=== PATIENT | male | born 1935 | race Caucasian/White ===

== ENCOUNTER 2019-05-18 00:31 | Inpatient (IN) | payer MEDICARE, MEDICAID ==
[~2019-05-18] VITALS: Ht 170.2 cm; Wt 78.9 kg
[2019-05-18] VITALS (7 sets, daily range): BP systolic 119–146; BP diastolic 60–76
[2019-05-18 00:58] LABS: APPEARANCE,URINE SLIGHTLY CLOUDY; BASOPHILS % (AUTO) 0.9 % (0.0-2.0); BILIRUBIN, URINE NEGATIVE (NEGATIVE); COLOR,URINE PALE YELLOW; EOSINOPHILS % (AUTO) 7.4 % (0.0-3.0); GLUCOSE, URINE (UA) NEGATIVE (NEGATIVE); HEMATOCRIT 32.1 % (42.0-52.0); HEMOGLOBIN 10.9 G/DL (14.2-18.0); KETONES,URINE NEGATIVE (NEGATIVE); LEUKOCYTE ESTERASE ,URINE 1+ (NEGATIVE); LYMPHOCYTES % (AUTO) 10.4 % (20.0-45.0); MEAN CORPUSCULAR VOLUME 87 FL (80-99); MONOCYTES % (AUTO) 3.6 % (1.0-10.0); NEUTROPHILS % (AUTO) 77.7 % (45.0-75.0); NITRITE,URINE NEGATIVE (NEGATIVE); PH,URINE 5 (4.5-8.0); PLATELET COUNT 253 K/UL (150-450); PROTEIN,URINE 3+ (NEGATIVE); RED CELL DISTRIBUTION WIDTH 13.8 % (11.6-14.8); UROBILINOGEN,URINE NORMAL MG/DL (0.0-1.0); WHITE BLOOD COUNT 8.8 K/UL (4.8-10.8)
[2019-05-18] MEDS: Albuterol/Ipratropium 3ml neb HHN SCH ×3 (00:59→01:17)
[2019-05-18] MEDS ORDERED: LOVENOX10 M4 SUBQ (01:05)
[2019-05-18] MEDS ORDERED: PROSCAR5 MG ORAL (01:05)
[2019-05-18] MEDS ORDERED: NORCO 5-325 TA1 EACH ORAL (01:05)
[2019-05-18] MEDS ORDERED: TYLENOL EXTRA500 MG ORAL (01:05)
[2019-05-18] MEDS ORDERED: FLEET ENEMA133 ML RECTAL (01:05)
[2019-05-18] MEDS ORDERED: MILK OF MA400 MG/51 ORAL (01:05)
[2019-05-18] MEDS ORDERED: LISINOPRIL2.5 MG ORAL (01:05)
[2019-05-18] MEDS ORDERED: COLACE100 MG ORAL (01:05)
[2019-05-18] MEDS ORDERED: CRANBERRY450 M4 PO (01:05)
[2019-05-18] MEDS ORDERED: TYLENOL325 M1 PO (01:05)
[2019-05-18] MEDS ORDERED: FLOMAX0.4 MG ORAL (01:05)
[2019-05-18] MEDS ORDERED: DULCOLAX10 MG RC (01:05)
[2019-05-18 01:24] LABS: ALANINE AMINOTRANSFERASE 33 U/L (12-78); ALBUMIN 1.8 G/DL (3.4-5.0); ALBUMIN/GLOBULIN RATIO 0.5 (1.0-2.7); ALKALINE PHOSPHATASE 91 U/L (46-116); ANION GAP 8 mmol/L (5-15); ASPARTATE AMINO TRANSFERASE 32 U/L (15-37); BILIRUBIN,TOTAL 0.5 MG/DL (0.2-1.0); CALCIUM 7.7 MG/DL (8.5-10.1); CARBON DIOXIDE 27 MMOL/L (21-32); CHLORIDE 107 MMOL/L (98-107); CKMB 1.7 NG/ML (0.0-3.6); CREATINE KINASE 24 U/L (26-308); CREATININE 1.9 MG/DL (0.55-1.30); POTASSIUM 3.3 MMOL/L (3.5-5.1); SODIUM 142 MMOL/L (136-145)
[2019-05-18 01:35] LABS: BLOOD UREA NITROGEN 29 mg/dL (7-18)
[2019-05-18] MEDS ORDERED: Azithromycin 500 MG in NS 275 ML IV ONE (02:00)
[2019-05-18] MEDS ORDERED: Piperacillin/Tazobactam 3.375 GM in NS 110 ML IVPB ONE (02:00)
[2019-05-18] MEDS ORDERED: Morphine Sulfate 2mg/ml Inj(IV/IM USE ONLY) IVP PRN (02:00)
--- NOTE | 2019-05-18 03:07 | Diagnostic Imaging Report ---
EXAM: XR Chest, 1 View CLINICAL HISTORY: SOB TECHNIQUE: Frontal view of the chest. COMPARISON: No relevant prior studies available. FINDINGS: No significant cardiac enlargement. Ill-defined densities in the right upper lobe are indeterminate but may reflect sequela of prior inflammatory process. Ill-defined nodular densities in both lungs. Left lower lobe densities atelectasis or pneumonia. Left pleural effusion. Negative for pneumothorax. Nonemergent CT chest recommended if no prior studies are available to document stability of findings. Right PICC line catheter terminates in the SVC.
--- NOTE | 2019-05-18 03:10 | Emergency Room Report ---
History of Present Illness General Chief Complaint: General Complaint Source: Patient, Medical Record, EMS Present Illness HPI 84-year-old male presents ED for evaluation. Brought in by EMS from shelter facility. Noted to have redness and swelling around his PICC line site on right upper extremity. Noticed by nursing staff today. States he was receiving antibiotics at another hospital for a UTI. Denies fevers or chills. Denies pain to the arm. States he has been short of breath. Has been wheezing. States he has been short of breath for the last 2 weeks. Denies chest pain. No other aggravating relieving factors. Denies any other associated symptoms Allergies: Coded Allergies: No Known Allergies (Unverified , 05/18/19) Patient History Past Medical History: HTN Past Surgical History: none Pertinent Family History: none Social History: Denies: smoking, alcohol use, drug use Immunizations: UTD Reviewed Nursing Documentation: PMH: Agreed; PSxH: Agreed Nursing Documentation-PMH Past Medical History: No History, Except For Hx Hypertension: Yes Review of Systems All Other Systems: negative except mentioned in HPI Physical Exam Vital Signs Date Time Temp Pulse Resp B/P (MAP) Pulse Ox O2 Delivery O2 Flow Rate FiO2 05/18/19 00:34 98.1 92 20 139/76 (97) 93 Nasal Cannula 2.0 05/18/19 00:59 28 Sp02 EP Interpretation: reviewed, normal General Appearance: no apparent distress, alert, GCS 15, non-toxic Head: normocephalic, atraumatic Eyes: bilateral eye normal inspection, bilateral eye PERRL ENT: hearing grossly normal, normal pharynx, no angioedema, normal voice Neck: full range of motion, supple/symm/no masses Respiratory: chest non-tender, speaking full sentences, wheezing Cardiovascular #1: regular rate, rhythm, no edema Cardiovascular #2: 2+ carotid (R), 2+ carotid (L), 2+ radial (R), 2+ radial (L) , 2+ dorsalis pedis (R), 2+ dorsalis pedis (L) Gastrointestinal: normal bowel sounds, non tender, soft, non-distended, no guarding, no rebound Rectal: deferred Genitourinary: normal inspection, no CVA tenderness Musculoskeletal: back normal, normal range of motion, gait/station normal, swelling - RUE swelling/erythema surrounding PICC site Neurologic: alert, motor strength/tone normal, oriented x3, sensory intact, responsive, speech normal Psychiatric: judgement/insight normal, memory normal, mood/affect normal, no suicidal/homicidal ideation Reflexes: 3+ bicep (R), 3+ bicep (L), 3+ tricep (R), 3+ tricep (L), 3+ knee (R) , 3+ knee (L) Skin: other - see nursing skin notes Lymphatic: no adenopathy Medical Decision Making Diagnostic Impression: Primary Impression: Cellulitis of upper extremity Qualified Codes: L03.113 - Cellulitis of right upper limb Additional Impressions: Renal insufficiency Pneumonia Qualified Codes: J18.9 - Pneumonia, unspecified organism ER Course Hospital Course 84-year-old male presents to ED with redness, swelling to RUE around PICC site. wheezing/SOB. Differential diagnoses include: Cellulitis, DVT, abscess, rash. Clinical course Patient placed on stretcher. After initial history and physical I ordered labs , blood Cx, UA, IVFs, doppler US of RUE, nebulize treatments labs reviewed - noted leukocytosis, hb/Hct stable, BUN/Cr elevated CXR - bilateral infiltraets EKg - NSR no acute ischemic changes interpreted by me vascular unable to obstain adequate study of RUE. recommend repeat imaging in the morning broad spectrum antibiotics given. IVFs given. Case discussed with Dr Wiggins and he agreed to accept the patient to his service for further care and support Diagnosis - cellulitis of upper extremity, renal insufficiency, pneumonia Patient admitted to telemetry in serious condition Labs Test 05/18/19 00:38 White Blood Count 8.8 K/UL (4.8-10.8) Red Blood Count 3.70 M/UL (4.70-6.10) Hemoglobin 10.9 G/DL (14.2-18.0) Hematocrit 32.1 % (42.0-52.0) Mean Corpuscular Volume 87 FL (80-99) Mean Corpuscular Hemoglobin 29.5 PG (27.0-31.0) Mean Corpuscular Hemoglobin Concent 34.0 G/DL (32.0-36.0) Red Cell Distribution Width 13.8 % (11.6-14.8) Platelet Count 253 K/UL (150-450) Mean Platelet Volume 4.5 FL (6.5-10.1) Neutrophils (%) (Auto) 77.7 % (45.0-75.0) Lymphocytes (%) (Auto) 10.4 % (20.0-45.0) Monocytes (%) (Auto) 3.6 % (1.0-10.0) Eosinophils (%) (Auto) 7.4 % (0.0-3.0) Basophils (%) (Auto) 0.9 % (0.0-2.0) Urine Color Pale yellow Urine Appearance Slightly cloudy Urine pH 5 (4.5-8.0) Urine Specific [place] 1.015 (1.005-1.035) Urine Protein 3+ (NEGATIVE) Urine Glucose (UA) Negative (NEGATIVE) Urine Ketones Negative (NEGATIVE) Urine Blood 5+ (NEGATIVE) Urine Nitrite Negative (NEGATIVE) Urine Bilirubin Negative (NEGATIVE) Urine Urobilinogen Normal MG/DL (0.0-1.0) Urine Leukocyte Esterase 1+ (NEGATIVE) Urine RBC 30-40 /HPF (0 - 0) Urine WBC 5-10 /HPF (0 - 0) Urine Squamous Epithelial Cells Occasional /LPF Urine Calcium Oxalate Crystals Moderate /LPF (NONE) Urine Amorphous Sediment Moderate /LPF (NONE) Urine Bacteria Few /HPF (NONE) Urine Mucus Few /LPF (NONE/OCC) Sodium Level 142 MMOL/L (136-145) Potassium Level 3.3 MMOL/L (3.5-5.1) Chloride Level 107 MMOL/L (98-107) Carbon Dioxide Level 27 MMOL/L (21-32) Anion Gap 8 mmol/L (5-15) Blood Urea Nitrogen 29 mg/dL (7-18) Creatinine 1.9 MG/DL (0.55-1.30) Estimat Glomerular Filtration Rate mL/min (>60) Glucose Level 110 MG/DL (74-106) Lactic Acid Level 0.70 mmol/L (0.4-2.0) Calcium Level 7.7 MG/DL (8.5-10.1) Total Bilirubin 0.5 MG/DL (0.2-1.0) Aspartate Amino Transf (AST/SGOT) 32 U/L (15-37) Alanine Aminotransferase (ALT/SGPT) 33 U/L (12-78) Alkaline Phosphatase 91 U/L (46-116) Total Creatine Kinase 24 U/L (26-308) Creatine Kinase MB 1.7 NG/ML (0.0-3.6) Creatine Kinase MB Relative Index 7.0 Troponin I 0.039 ng/mL (0.000-0.056) Pro-B-Type Natriuretic Peptide 2453 pg/mL (0-125) Total Protein 5.4 G/DL (6.4-8.2) Albumin 1.8 G/DL (3.4-5.0) Globulin 3.6 g/dL Albumin/Globulin Ratio 0.5 (1.0-2.7) EKG Diagnostic Results Rate: normal Rhythm: NSR ST Segments: no acute changes ASA given to the pt in ED: No Rhythm Strip Diag. Results EP Interpretation: yes Rhythm: NSR, no PVC's, no ectopy Chest X-Ray Diagnostic Results Chest X-Ray Diagnostic Results : Chest X-Ray Ordered: Yes # of Views/Limited/Complete: 1 View Indication: Shortness of Breath EP Interpretation: Yes Interpretation: no pneumothorax, other - bialteral infiltrates Impression: Other - pneumonia Electronically Signed by: Electronically signed by Kevyn Kaufman MD Last Vital Signs Date Time Temp Pulse Resp B/P (MAP) Pulse Ox O2 Delivery O2 Flow Rate FiO2 05/18/19 02:11 98.1 89 16 137/63 99 Nasal Cannula 2.0 28 Status: improved Disposition: ADMITTED INPATIENT Condition: Serious Referrals: Joslyn Wiggins MD (PCP) Kevyn Kaufman MD May 18, 2019 03:10
--- NOTE | 2019-05-18 09:31 | Consultation ---
History of Present Illness General Date patient seen: May 18, 2019 Chief Complaint: General Complaint Reason for Consultation: PICC line infection Present Illness HPI Mr. Charles is an 84 yo male with PMHx of HTN who was sent to the ED on 05/18/19 fropm his snf for possible picc line infection. The patient reports no fever or dysuria at this time but reports that he had a PICC line placed for UTI. He also notes that had a fracture of his left foot after he twisted it. He was seen at [facility] and is now on Vancomycin for OM. The skin around his PICC line became red and swollen so he was brought to the ED. I called the snf and they report that the Vancomycin is due to end in early May. ID was consulted for PICC line infection PMHx/PSHx HTN SocHx No E/T/D FamHx Not Contributory Allergies: Coded Allergies: No Known Allergies (Unverified , 05/18/19) Medication History Scheduled Cranberry Fruit Concentrate (Cranberry), 450 MG PO BID, (Reported) Docusate Sodium* (Colace*), 100 MG ORAL DAILY, (Reported) Enoxaparin* (Lovenox*), 40 MG SUBQ DAILY, (Reported) Finasteride* (Proscar*), 5 MG ORAL DAILY, (Reported) Lisinopril* (Lisinopril*), 2.5 MG ORAL DAILY, (Reported) Tamsulosin HCl (Flomax), 0.4 MG ORAL BEDTIME, (Reported) Scheduled PRN Acetaminophen (Tylenol), 650 MG PO Q4HR PRN for Mild Pain/Temp > 100.5, ( Reported) Acetaminophen* (Tylenol Extra Strength*), 1,000 MG ORAL Q4H PRN for Moderate Pain (Pain Scale 4-6), (Reported) Bisacodyl (Dulcolax), 10 MG RC DAILY PRN for Constipation, (Reported) Hydrocodone Bit/Acetaminophen 5-325* ([place] 5-325*), 1 TAB ORAL Q6HR PRN for Severe Pain (Pain Scale 7-10), (Reported) Magnesium Hydroxide* (Milk Of Magnesia*), 30 ML ORAL QHS PRN for Constipation, ( Reported) Na Phos,M-B/Na Phos,Di-Ba* (Fleet Enema*), 133 ML RECTAL DAILY PRN for Constipation, (Reported) Patient History Healthcare decision maker Resuscitation status Full Code Advanced Directive on File No Review of Systems ROS Narrative 12 point ROS negative except as noted in the HPI Physical Exam Last 24 Hour Vital Signs Date Time Temp Pulse Resp B/P (MAP) Pulse Ox O2 Delivery O2 Flow Rate FiO2 05/18/19 03:57 84 05/18/19 03:38 111 05/18/19 03:25 97.3 115 19 136/68 (90) 94 05/18/19 03:03 Nasal Cannula 2.0 Nasal Cannula 2.0 Nasal Cannula 2.0 Nasal Cannula 2.0 05/18/19 02:30 98.1 89 16 137/63 99 Nasal Cannula 2.0 28 05/18/19 02:11 98.1 89 16 137/63 99 Nasal Cannula 2.0 28 05/18/19 01:19 102 22 100 97 22 100 05/18/19 01:13 97 22 100 97 21 100 05/18/19 00:59 99 19 100 Nasal Cannula 2.0 28 97 21 97 05/18/19 00:45 98.1 92 20 139/76 93 Nasal Cannula 2.0 05/18/19 00:45 92 20 Nasal Cannula 2.0 05/18/19 00:34 98.1 92 20 139/76 (97) 93 Nasal Cannula 2.0 Laboratory Tests Test 05/18/19 00:38 White Blood Count 8.8 K/UL (4.8-10.8) Red Blood Count 3.70 M/UL (4.70-6.10) L Hemoglobin 10.9 G/DL (14.2-18.0) L Hematocrit 32.1 % (42.0-52.0) L Mean Corpuscular Volume 87 FL (80-99) Mean Corpuscular Hemoglobin 29.5 PG (27.0-31.0) Mean Corpuscular Hemoglobin Concent 34.0 G/DL (32.0-36.0) Red Cell Distribution Width 13.8 % (11.6-14.8) Platelet Count 253 K/UL (150-450) Mean Platelet Volume 4.5 FL (6.5-10.1) L Neutrophils (%) (Auto) 77.7 % (45.0-75.0) H Lymphocytes (%) (Auto) 10.4 % (20.0-45.0) L Monocytes (%) (Auto) 3.6 % (1.0-10.0) Eosinophils (%) (Auto) 7.4 % (0.0-3.0) H Basophils (%) (Auto) 0.9 % (0.0-2.0) Urine Color Pale yellow Urine Appearance Slightly cloudy Urine pH 5 (4.5-8.0) Urine Specific [place] 1.015 (1.005-1.035) Urine Protein 3+ (NEGATIVE) H Urine Glucose (UA) Negative (NEGATIVE) Urine Ketones Negative (NEGATIVE) Urine Blood 5+ (NEGATIVE) H Urine Nitrite Negative (NEGATIVE) Urine Bilirubin Negative (NEGATIVE) Urine Urobilinogen Normal MG/DL (0.0-1.0) Urine Leukocyte Esterase 1+ (NEGATIVE) H Urine RBC 30-40 /HPF (0 - 0) H Urine WBC 5-10 /HPF (0 - 0) H Urine Squamous Epithelial Cells Occasional /LPF Urine Calcium Oxalate Crystals Moderate /LPF (NONE) Urine Amorphous Sediment Moderate /LPF (NONE) H Urine Bacteria Few /HPF (NONE) Urine Mucus Few /LPF (NONE/OCC) H Sodium Level 142 MMOL/L (136-145) Potassium Level 3.3 MMOL/L (3.5-5.1) L Chloride Level 107 MMOL/L (98-107) Carbon Dioxide Level 27 MMOL/L (21-32) Anion Gap 8 mmol/L (5-15) Blood Urea Nitrogen 29 mg/dL (7-18) H Creatinine 1.9 MG/DL (0.55-1.30) H Estimat Glomerular Filtration Rate mL/min (>60) Glucose Level 110 MG/DL (74-106) H Lactic Acid Level 0.70 mmol/L (0.4-2.0) Calcium Level 7.7 MG/DL (8.5-10.1) L Total Bilirubin 0.5 MG/DL (0.2-1.0) Aspartate Amino Transf (AST/SGOT) 32 U/L (15-37) Alanine Aminotransferase (ALT/SGPT) 33 U/L (12-78) Alkaline Phosphatase 91 U/L (46-116) Total Creatine Kinase 24 U/L (26-308) L Creatine Kinase MB 1.7 NG/ML (0.0-3.6) Creatine Kinase MB Relative Index 7.0 Troponin I 0.039 ng/mL (0.000-0.056) Pro-B-Type Natriuretic Peptide 2453 pg/mL (0-125) H Total Protein 5.4 G/DL (6.4-8.2) L Albumin 1.8 G/DL (3.4-5.0) L Globulin 3.6 g/dL Albumin/Globulin Ratio 0.5 (1.0-2.7) L Microbiology Date/Time Source Procedure Growth Status 05/18/19 00:38 Rectum Received Height (Feet): 5 Height (Inches): 7.00 Weight (Pounds): 150 Medications Current Medications Medications (Trade) Dose Ordered Sig/Phillip Route PRN Reason Start Time Stop Time Status Last Admin Dose Admin Acetaminophen (Tylenol) 650 mg Q6HR PRN ORAL TEMP>100.5 05/18/19 02:00 Morphine Sulfate (Morphine Sulfate) 2 mg Q4HR PRN IVP Moderate Pain (Pain Scale 4-6) 05/18/19 02:00 Ondansetron HCl (Zofran) 4 mg Q4HR PRN IVP Nausea & Vomiting 05/18/19 02:00 Objective Narrative Gen: NAD HEENT: NCAT, MMM, EOMI, PERRL, No Oral lesion, no scleral icterus NECK: full range of motion, supple, no meningismus, No LAD, No JVD LUNGS: CTAB, No W/C, No Accessory muscle use CARDS: RRR, S1, S2, No M/R/G, ABD: Soft, NT, ND, No R/G, + BS, No HSM, No Masses : Deferred Ext: No, C/C/E, Pulses 2+ B/L (DP, Rad): Right arm PICC with some swelling. Bio patch inplace no erythema or purulent drainage at this time. Left foot in cast/ bandage NEURO: A/O x 2, Strength and Sensation Grossly intact PSYCH: Normal mood and affect SKIN: Warm/dry, No rashes Assessment/Plan Assessment/Plan: 84 yo male withPMHx of HTN who pwas sent to the ED on 05/18/19 fropm his snf for posible picc line infection. Sweeling around PICC line Minimal to no erythema and no purulent drainage Not likely to be infected Blood Cx 05/18/19 - Pend No Leukocytosis No fever OM - Let foot Pn Vancomycin at nursing End date early May SOB on 2L NC CXR - Some LLL Atelectasis vs PNA, Nodules HTN PLAN - Continue Vancomcyin per pharmacy - US of left arm to look for clot - f/u surgery recs - f/u Cultures - Monitor CBC and Temps Thank you for this consult. [facility] will continue to follow the patient with you during this hospitalization. Jimbo Dodd MD May 18, 2019 09:31
[2019-05-18] MEDS ORDERED: Lisinopril 2.5mg tab ORAL SCH (10:15)
[2019-05-18] MEDS ORDERED: Acetaminophen 500mg (ES) tab ORAL PRN (10:15)
[2019-05-18] MEDS ORDERED: HYDROcodone/Acetamin 5/325 tab ORAL PRN (10:15)
[2019-05-18] MEDS ORDERED: Enoxaparin 30mg Inj SUBQ SCH (10:30)
[2019-05-18] MEDS ORDERED: Vancomycin 1.25gm/NS Premix IVPB ONE (11:00)
--- NOTE | 2019-05-18 11:57 | Consultation ---
History of Present Illness General Date patient seen: May 18, 2019 Reason for Hospitalization: General Complaint Present Illness HPI 84-year-old male present to ED at [facility] from nursing facility for evaluation of right arm. Noted to have redness and swelling around his PICC line site on right upper extremity. Noticed by nursing staff at facility day of admission. States he was receiving antibiotics at another hospital for a UTI. Denies fevers or chills. Denies pain to the arm. States he has been short of breath and has been wheezing. States he has been short of breath for the last 2 weeks. Denies chest pain. No other aggravating relieving factors. Denies any other associated symptoms. notable edema / possible cellulitis. admitted for care and management. surgery called to evaluate and assist with care. patient seen, chart reviewed, patient examined. states fell with walker not too long ago and fx his left foot as well. now in splint. Allergies: Coded Allergies: No Known Allergies (Unverified , 05/18/19) Medication History Scheduled Cranberry Fruit Concentrate (Cranberry), 450 MG PO BID, (Reported) Docusate Sodium* (Colace*), 100 MG ORAL DAILY, (Reported) Enoxaparin* (Lovenox*), 40 MG SUBQ DAILY, (Reported) Finasteride* (Proscar*), 5 MG ORAL DAILY, (Reported) Lisinopril* (Lisinopril*), 2.5 MG ORAL DAILY, (Reported) Tamsulosin HCl (Flomax), 0.4 MG ORAL BEDTIME, (Reported) Scheduled PRN Acetaminophen (Tylenol), 650 MG PO Q4HR PRN for Mild Pain/Temp > 100.5, ( Reported) Acetaminophen* (Tylenol Extra Strength*), 1,000 MG ORAL Q4H PRN for Moderate Pain (Pain Scale 4-6), (Reported) Bisacodyl (Dulcolax), 10 MG RC DAILY PRN for Constipation, (Reported) Hydrocodone Bit/Acetaminophen 5-325* ([place] 5-325*), 1 TAB ORAL Q6HR PRN for Severe Pain (Pain Scale 7-10), (Reported) Magnesium Hydroxide* (Milk Of Magnesia*), 30 ML ORAL QHS PRN for Constipation, ( Reported) Na Phos,M-B/Na Phos,Di-Ba* (Fleet Enema*), 133 ML RECTAL DAILY PRN for Constipation, (Reported) Patient History History Provided By: Patient, Medical Record, PMD Healthcare decision maker Resuscitation status Full Code Advanced Directive on File No Past Medical/Surgical History Past Medical/Surgical History: (1) Cellulitis (2) SOB (shortness of breath) (3) Cellulitis of upper extremity (4) Renal insufficiency (5) Pneumonia Review of Systems Review of Symptoms General ROS: no weight loss or fever Psychological ROS: no depression or mood changes, no memory loss Ophthalmic ROS: no visual changes or eye irritation ENT ROS: no nasal congestion, hearing loss, dizziness Allergy and Immunology ROS: no allergic symptoms or urticaria Hematological and Lymphatic ROS: no swollen glands, unusual bleeding or bruising Endocrine ROS: no polyuria, polydipsia, weight changes, temperature intolerance Respiratory ROS: no cough, +shortness of breath, + wheezing Cardiovascular ROS: no chest pain or dyspnea on exertion Gastrointestinal ROS: denies abdominal pain, bright red blood in stool. Musculoskeletal ROS: no myalgias or arthralgias Neurological ROS: no TIA or stroke symptoms Dermatological ROS: no new or changing skin lesions, rashes or pruritis Physical Exam Physical Exam General appearance: alert, cooperative, no distress, appears stated age Head: Normocephalic, without obvious abnormality, atraumatic Eyes: conjunctivae/corneas clear. PERRL, EOM's intact. Fundi benign Throat: Lips, mucosa, and tongue normal. Teeth and gums normal Neck: supple, symmetrical, trachea midline, no adenopathy, thyroid: not enlarged, symmetric, no tenderness/mass/nodules, no carotid bruit and no JVD Lungs: clear to auscultation bilaterally Heart: regular rate and rhythm, S1, S2 normal, no murmur, click, rub or gallop Abdomen: soft, non-tender. Bowel sounds normal. No masses, no organomegaly Extremities: extremities normal, atraumatic, no cyanosis or edema. left leg / foot in splint ; right ue with edema and cellulitis Pulses: 2+ and symmetric Skin: Skin color, texture, turgor normal. No rashes or lesions Neurologic: Grossly normal Last 24 Hour Vital Signs Date Time Temp Pulse Resp B/P (MAP) Pulse Ox O2 Delivery O2 Flow Rate FiO2 05/18/19 10:28 119/60 05/18/19 08:00 98.1 97 20 119/60 (79) 95 05/18/19 03:57 84 05/18/19 03:38 111 05/18/19 03:25 97.3 115 19 136/68 (90) 94 05/18/19 03:03 Nasal Cannula 2.0 Nasal Cannula 2.0 Nasal Cannula 2.0 Nasal Cannula 2.0 05/18/19 02:30 98.1 89 16 137/63 99 Nasal Cannula 2.0 28 05/18/19 02:11 98.1 89 16 137/63 99 Nasal Cannula 2.0 28 05/18/19 01:19 102 22 100 97 22 100 05/18/19 01:13 97 22 100 97 21 100 05/18/19 00:59 99 19 100 Nasal Cannula 2.0 28 97 21 97 05/18/19 00:45 98.1 92 20 139/76 93 Nasal Cannula 2.0 05/18/19 00:45 92 20 Nasal Cannula 2.0 05/18/19 00:34 98.1 92 20 139/76 (97) 93 Nasal Cannula 2.0 Laboratory Tests Test 05/18/19 00:38 White Blood Count 8.8 K/UL (4.8-10.8) Red Blood Count 3.70 M/UL (4.70-6.10) L Hemoglobin 10.9 G/DL (14.2-18.0) L Hematocrit 32.1 % (42.0-52.0) L Mean Corpuscular Volume 87 FL (80-99) Mean Corpuscular Hemoglobin 29.5 PG (27.0-31.0) Mean Corpuscular Hemoglobin Concent 34.0 G/DL (32.0-36.0) Red Cell Distribution Width 13.8 % (11.6-14.8) Platelet Count 253 K/UL (150-450) Mean Platelet Volume 4.5 FL (6.5-10.1) L Neutrophils (%) (Auto) 77.7 % (45.0-75.0) H Lymphocytes (%) (Auto) 10.4 % (20.0-45.0) L Monocytes (%) (Auto) 3.6 % (1.0-10.0) Eosinophils (%) (Auto) 7.4 % (0.0-3.0) H Basophils (%) (Auto) 0.9 % (0.0-2.0) Urine Color Pale yellow Urine Appearance Slightly cloudy Urine pH 5 (4.5-8.0) Urine Specific [place] 1.015 (1.005-1.035) Urine Protein 3+ (NEGATIVE) H Urine Glucose (UA) Negative (NEGATIVE) Urine Ketones Negative (NEGATIVE) Urine Blood 5+ (NEGATIVE) H Urine Nitrite Negative (NEGATIVE) Urine Bilirubin Negative (NEGATIVE) Urine Urobilinogen Normal MG/DL (0.0-1.0) Urine Leukocyte Esterase 1+ (NEGATIVE) H Urine RBC 30-40 /HPF (0 - 0) H Urine WBC 5-10 /HPF (0 - 0) H Urine Squamous Epithelial Cells Occasional /LPF Urine Calcium Oxalate Crystals Moderate /LPF (NONE) Urine Amorphous Sediment Moderate /LPF (NONE) H Urine Bacteria Few /HPF (NONE) Urine Mucus Few /LPF (NONE/OCC) H Sodium Level 142 MMOL/L (136-145) Potassium Level 3.3 MMOL/L (3.5-5.1) L Chloride Level 107 MMOL/L (98-107) Carbon Dioxide Level 27 MMOL/L (21-32) Anion Gap 8 mmol/L (5-15) Blood Urea Nitrogen 29 mg/dL (7-18) H Creatinine 1.9 MG/DL (0.55-1.30) H Estimat Glomerular Filtration Rate mL/min (>60) Glucose Level 110 MG/DL (74-106) H Lactic Acid Level 0.70 mmol/L (0.4-2.0) Calcium Level 7.7 MG/DL (8.5-10.1) L Total Bilirubin 0.5 MG/DL (0.2-1.0) Aspartate Amino Transf (AST/SGOT) 32 U/L (15-37) Alanine Aminotransferase (ALT/SGPT) 33 U/L (12-78) Alkaline Phosphatase 91 U/L (46-116) Total Creatine Kinase 24 U/L (26-308) L Creatine Kinase MB 1.7 NG/ML (0.0-3.6) Creatine Kinase MB Relative Index 7.0 Troponin I 0.039 ng/mL (0.000-0.056) Pro-B-Type Natriuretic Peptide 2453 pg/mL (0-125) H Total Protein 5.4 G/DL (6.4-8.2) L Albumin 1.8 G/DL (3.4-5.0) L Globulin 3.6 g/dL Albumin/Globulin Ratio 0.5 (1.0-2.7) L Microbiology Date/Time Source Procedure Growth Status 05/18/19 00:38 Rectum Received Height (Feet): 5 Height (Inches): 7.00 Weight (Pounds): 150 Medications Current Medications Medications (Trade) Dose Ordered Sig/Phillip Route PRN Reason Start Time Stop Time Status Last Admin Dose Admin Acetaminophen (Tylenol) 500 mg Q4H PRN ORAL Mild Pain/Temp > 100.5 05/18/19 10:15 06/17/19 10:14 Acetaminophen/ Hydrocodone Bitart ([place] 5/325) 1 tab Q6H PRN ORAL Severe Pain (Pain Scale 7-10) 05/18/19 10:15 05/25/19 10:14 Docusate Sodium (Colace) 100 mg TWICE A DAY ORAL 05/18/19 18:00 06/17/19 17:59 Enoxaparin Sodium (Lovenox) 30 mg DAILY SUBQ 05/18/19 10:30 06/17/19 10:29 05/18/19 10:30 Finasteride (Proscar) 5 mg DAILY ORAL 05/18/19 10:15 06/17/19 10:14 05/18/19 10:28 Lisinopril (ZestriL) 2.5 mg DAILY ORAL 05/18/19 10:15 06/17/19 10:14 05/18/19 10:28 Sodium Chloride 1,000 ml @ 75 mls/hr [id number] IV 05/18/19 10:15 06/17/19 10:14 05/18/19 10:29 Tamsulosin HCl (Flomax) 0.4 mg BEDTIME ORAL 05/18/19 21:00 06/17/19 20:59 Vancomycin HCl (Vanco rx to dose) 1 ea DAILY PRN MISC Per rx protocol 05/18/19 09:45 06/17/19 09:44 Vancomycin/Sodium Chloride 275 ml @ 183.333 mls/hr ONCE ONCE IVPB 05/18/19 11:00 05/18/19 12:29 Assessment/Plan Problem List: (1) Cellulitis of upper extremity Assessment & Plan: 84M with RUE cellulitis, edema, erythema. no drainage. has RUE picc line recommend removal of picc. removed at bedside by myself on 05/18. pressure held, hemostasis noted, dressings applied. cath tip sent for cultures DVT duplex studies IV Abx as per ID UA pending Cx results keep RUE elevated on pillows okay for diet AM labs will follow with recs thank you ICD Codes: L03.119 - Cellulitis of unspecified part of limb SNOMED: [id number] Qualifiers: Qualified Codes: L03.113 - Cellulitis of right upper limb Bennett Logan May 18, 2019 11:57
--- NOTE | 2019-05-18 15:15 | Consultation ---
DATE OF CONSULTATION: 05/18/2019 CONSULTING PHYSICIAN: Jimbo Lockhart M.D. REASON FOR CONSULTATION: 1. Acute kidney injury. 2. Dehydration. HISTORY OF PRESENT ILLNESS: The patient is a pleasant 84-year-old gentleman brought in by EMS from the [facility] for evaluation and management of redness and swelling around his PICC line in his right upper extremity. General surgery Dr. Windy Logan has now removed the catheter. He had been receiving antibiotics for a UTI. Noted to have a creatinine of 1.9. The patient denies any chest pain, nausea, vomiting, or diarrhea. Denies any renal dysfunction in the past. PAST MEDICAL HISTORY: Hypertension. PAST SURGICAL HISTORY: PICC line placement. ALLERGIES: No known drug allergies. SOCIAL HISTORY: No tobacco, alcohol, or illicit drug use. FAMILY HISTORY: Positive for hypertension. REVIEW OF SYSTEMS: NEUROLOGICAL: The patient denies headache, change in vision, syncope, or presyncopal episodes. CARDIOVASCULAR: No current chest pain, palpitations, or angina. PULMONARY: No difficulty breathing, productive cough, or sputum. GASTROINTESTINAL/GENITOURINARY: No change in urinary or bowel habits. No nausea, vomiting, or diarrhea. ENDOCRINOLOGY: No night sweats, fevers, or chills. MUSCULOSKELETAL: The patient is feeling weak, tired, and fatigued. PHYSICAL EXAMINATION: VITAL SIGNS: Blood pressure 119/60, pulse 84, and temperature 97.3. 99% oxygen saturation on 2 L nasal cannula. GENERAL: The patient is awake and alert, not in overt distress. HEENT: Extraocular muscles intact. No lymphadenopathy noted. CARDIOVASCULAR: S1, S2. No rubs or gallops. PULMONARY: Clear to auscultation bilaterally. No rales, rhonchi, or wheezes. ABDOMEN: Nondistended and nontender. EXTREMITIES: No edema with right upper extremity edema. LABORATORY DATA: Labs dated May 18, 2019, sodium 142, potassium 3.3, creatinine 1.9. Hemoglobin 10.9, white cell count 8.8, and platelet count 253,000. ASSESSMENT AND PLAN: 1. Acute kidney injury versus chronic kidney disease, most likely secondary to combination of intravascular volume depletion and underlying urinary tract infection. We will allow CHANDA inhibitor to continue as long as renal function does not worsen. Renal ultrasound to rule out the possibility of underlying obstruction. Discontinue CHANDA inhibitor if renal function worsens. Continue IV fluids. Avoid any nephrotoxins. 2. Urinary tract infection. At this time, defer management to Infectious Disease. PICC line has been removed. 3. Dehydration. Continue IV fluids. Jimbo Lockhart MD DR: LARA JOB#: [id number] CC:
[2019-05-18] MEDS ORDERED: Eliquis 2.5mg tablet ORAL SCH (18:00)
[2019-05-18] MEDS ORDERED: Docusate 100mg cap ORAL SCH (18:00)
--- NOTE | 2019-05-18 20:15 | Consultation ---
DATE OF CONSULTATION: 05/18/2019 PULMONARY CONSULTATION CONSULTING PHYSICIAN: Arsen Whittaker M.D. HISTORY OF PRESENT ILLNESS: This is an 84-year-old male, brought in from nursing facility after being noted to have redness and swelling around his PICC line site right upper extremity. The patient was brought to the hospital. I have been consulted for respiratory condition. He also has a splint on his left lower extremity. He is apparently on vancomycin for a UTI. He has been seen ID. CURRENT MEDICATIONS: Include Lovenox and has tried lisinopril and Flomax. He is also on antibiotics. CODE STATUS: Full. PAST MEDICAL HISTORY: Notable for COPD, cellulitis of upper extremity, previous pneumonia. The patient denies any headaches, hematemesis, melena, hematochezia. PHYSICAL EXAMINATION: GENERAL: Reveals an 84-year-old male. HEENT: Unremarkable. LUNGS: Clear breath sounds bilaterally. No wheezes. ABDOMEN: Soft. EXTREMITIES: There is no edema. His left foot is in a cast. He has tenderness over the right upper extremity and cellulitis in the area of the PICC line. LABORATORY DATA: Lab testing shows normal CBC with the hemoglobin of 10. Chemistries are normal with a potassium of 3.3, creatinine 1.9. X-ray chest obtained overnight shows small left effusion and bilateral nodular densities. IMPRESSION AND PLAN: 1. Abnormal chest x-ray. Suspect pneumonia. 2. Cellulitis. 3. History of COPD. 4. Hypertension. 5. Left sprain. DISCUSSION: 1. Admit to the hospital. 2. Agree with present management and care. 3. The patient has been started on Lovenox and vancomycin. 4. I will order a chest CT. 5. 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 Arsen Whittaker M.D. DR: JULIO CESAR JOB#: [id number] CC:
[2019-05-18] MEDS ORDERED: Tamsulosin 0.4mg cap ORAL SCH (21:00)
[2019-05-19] VITALS (11 sets, daily range): BP systolic 121–163; BP diastolic 47–100
--- NOTE | 2019-05-19 00:45 | History and Physical Report ---
DATE OF ADMISSION: 05/18/2019 TIME SEEN: 10:00 a.m. CONSULTANTS: 1. Dr. Addison. 2. Mihir Davalos M.D. 3. 4. Benentt Devries M.D. CHIEF COMPLAINT: Right upper extremity swelling and infection. BRIEF HISTORY: This is an 84-year-old male from [facility], who presented with above-mentioned diagnosis. Right arm PICC line area looks red and swollen. The patient was admitted to telemetry for further care. Currently, calm, O2 NC. Arm is slightly swollen, slight arm pain, no complaint. REVIEW OF SYSTEMS: No chest pain. Slight short of breath. No nausea, vomiting, or diarrhea. PAST MEDICAL HISTORY: Pneumonia, sepsis, wheeze, UTI, renal insufficiency, and malnutrition. PAST SURGICAL HISTORY: Facial cancer. ALLERGIES: Denies. MEDICATIONS: Include tamsulosin, vancomycin, hydrocodone, lisinopril, finasteride, Zosyn, and azithromycin. SOCIAL HISTORY: No smoking. No alcohol. No intravenous drug abuse. FAMILY HISTORY: Noncontributory. PHYSICAL EXAMINATION: GENERAL: Calm in bed, oriented x2, in no acute distress. O2 NC in place. VITAL SIGNS: Temperature is 97 degrees, pulse 115, respirations 19, and blood pressure 136/68. CARDIOVASCULAR: No murmur. LUNGS: Poor air exchange. ABDOMEN: Bowel sounds distant. EXTREMITIES: No cyanosis, clubbing, or edema. Right upper arm slightly red, slightly warm. NEUROLOGIC: The patient moves all extremities, slightly weak. LABORATORY AND DIAGNOSTIC DATA: Labs at this time show hemoglobin and hematocrit 10/32, otherwise CBC is normal. BMP showed potassium 3.3, BUN and creatinine . Troponin 0.039. Albumin 1.8. Urinalysis shows 1+ leukocyte esterase. ASSESSMENT: 1. Right upper extremity PICC line infection. 2. Pneumonia. 3. Sepsis urinary tract infection. 4. Renal insufficiency. 5. Anemia. 6. Malnutrition. PLAN: 1. Wound care. 2. Antibiotics per Infectious Disease. 3. O2 and pulmonary treatment. 4. Resume home medications. 5. PT and dietary evaluation. 6. Check labs in the morning. Jamarcus Hendrickson D.O. DR: SHANNAN JOB#: [id number] CC:
[2019-05-19] MEDS ORDERED: Albuterol/Ipratropium 3ml neb HHN SCH (07:00)
[2019-05-19 07:02] LABS: BASOPHILS % (AUTO) 0.7 % (0.0-2.0); HEMATOCRIT 29.8 % (42.0-52.0); HEMOGLOBIN 9.8 G/DL (14.2-18.0); LYMPHOCYTES % (AUTO) 7.1 % (20.0-45.0); MEAN CORPUSCULAR VOLUME 89 FL (80-99); MONOCYTES % (AUTO) 4.5 % (1.0-10.0); NEUTROPHILS % (AUTO) 78.7 % (45.0-75.0); PLATELET COUNT 189 K/UL (150-450); RED BLOOD COUNT 3.35 M/UL (4.70-6.10); RED CELL DISTRIBUTION WIDTH 14.2 % (11.6-14.8); WHITE BLOOD COUNT 7.2 K/UL (4.8-10.8)
[2019-05-19 07:29] LABS: ANION GAP 10 mmol/L (5-15); BLOOD UREA NITROGEN 28 mg/dL (7-18); CALCIUM 7.4 MG/DL (8.5-10.1); CARBON DIOXIDE 23 MMOL/L (21-32); CHLORIDE 109 MMOL/L (98-107); CREATININE 1.9 MG/DL (0.55-1.30); POTASSIUM 3.5 MMOL/L (3.5-5.1); SODIUM 142 MMOL/L (136-145)
[2019-05-19] MEDS ORDERED: Acetaminophen 500mg (ES) tab ORAL PRN (08:00)
[2019-05-19] MEDS ORDERED: HYDROcodone/Acetamin 5/325 tab ORAL PRN (08:00)
[2019-05-19] MEDS ORDERED: Amiodarone 900 MG in D5W 500ml 482 ML IV SCH ×6 (08:00→21:45)
[2019-05-19] MEDS: Lisinopril 2.5mg tab ORAL SCH (09:00)
[2019-05-19] MEDS: Eliquis 2.5mg tablet ORAL SCH ×2 (09:00→17:55)
[2019-05-19] MEDS: Docusate 100mg cap ORAL SCH ×2 (09:00→17:50)
--- NOTE | 2019-05-19 10:15 | Infectious Diseases Prog Note ---
Assessment/Plan Assessment/Plan 84 yo male withPMHx of HTN who pwas sent to the ED on 05/18/19 fropm his long term for posible picc line infection. Swelling around PICC line Minimal to no erythema and no purulent drainage Not likely to be infected Blood Cx 05/18/19 - NGTD PICC Tip Cx 05/18/19 - NGTD PICC line removed 05/18/19 No Leukocytosis No fever OM - Let foot On Vancomycin at nursing End date early May SOB on 2L NC CXR - Some LLL Atelectasis vs PNA, Nodules HTN PLAN - Continue Vancomcyin per pharmacy - f/u surgery recs - f/u Cultures - Monitor CBC and Temps Thank you for this consult. [facility] will continue to follow the patient with you during this hospitalization. Subjective Allergies: Coded Allergies: No Known Allergies (Unverified , 05/18/19) Subjective Afebrile No Leukocytosis Satting well on 2L NC Objective Vital Signs Last 24 Hour Vital Signs Date Time Temp Pulse Resp B/P (MAP) Pulse Ox O2 Delivery O2 Flow Rate FiO2 05/19/19 09:00 Nasal Cannula 2.0 Nasal Cannula 2.0 Nasal Cannula 2.0 Nasal Cannula 2.0 05/19/19 09:00 79 19 154/64 (94) 94 05/19/19 08:30 98.4 84 25 125/67 (86) 94 05/19/19 08:08 152 25 100 Nasal Cannula 2.0 28 05/19/19 08:07 100 Nasal Cannula 2.0 100 05/19/19 08:00 88 05/19/19 08:00 98.4 148 25 121/69 (86) 94 05/19/19 04:00 97.7 80 20 143/80 (101) 96 05/19/19 03:37 55 05/19/19 00:00 99.3 88 20 134/88 (103) 97 05/19/19 00:00 84 05/18/19 21:00 Nasal Cannula 2.0 Nasal Cannula 2.0 Nasal Cannula 2.0 Nasal Cannula 2.0 05/18/19 20:00 98.2 83 20 145/74 (97) 96 05/18/19 19:35 76 05/18/19 16:00 97.9 73 20 129/64 (85) 96 05/18/19 16:00 73 05/18/19 12:00 85 05/18/19 12:00 98.2 86 20 146/76 (99) 98 05/18/19 10:28 119/60 Height (Feet): 5 Height (Inches): 7.00 Weight (Pounds): 150 Objective Gen: NAD HEENT: NCAT, MMM, EOMI LUNGS: CTAB, No W CARDS: RRR, S1, S2 ABD: Soft, NT, ND Microbiology Date/Time Source Procedure Growth Status 05/18/19 00:38 Blood Blood Culture - Preliminary NO GROWTH AFTER 24 HOURS Resulted 05/18/19 00:15 Blood Blood Culture - Preliminary NO GROWTH AFTER 24 HOURS Resulted 05/18/19 11:10 Catheter Site Catheter Tip Culture - Preliminary NO GROWTH Resulted 05/18/19 00:38 Rectum Received Laboratory Tests Test 05/19/19 06:08 White Blood Count 7.2 K/UL (4.8-10.8) Red Blood Count 3.35 M/UL (4.70-6.10) L Hemoglobin 9.8 G/DL (14.2-18.0) L Hematocrit 29.8 % (42.0-52.0) L Mean Corpuscular Volume 89 FL (80-99) Mean Corpuscular Hemoglobin 29.1 PG (27.0-31.0) Mean Corpuscular Hemoglobin Concent 32.8 G/DL (32.0-36.0) Red Cell Distribution Width 14.2 % (11.6-14.8) Platelet Count 189 K/UL (150-450) Mean Platelet Volume 4.6 FL (6.5-10.1) L Neutrophils (%) (Auto) 78.7 % (45.0-75.0) H Lymphocytes (%) (Auto) 7.1 % (20.0-45.0) L Monocytes (%) (Auto) 4.5 % (1.0-10.0) Eosinophils (%) (Auto) 9.0 % (0.0-3.0) H Basophils (%) (Auto) 0.7 % (0.0-2.0) Sodium Level 142 MMOL/L (136-145) Potassium Level 3.5 MMOL/L (3.5-5.1) Chloride Level 109 MMOL/L (98-107) H Carbon Dioxide Level 23 MMOL/L (21-32) Anion Gap 10 mmol/L (5-15) Blood Urea Nitrogen 28 mg/dL (7-18) H Creatinine 1.9 MG/DL (0.55-1.30) H Estimat Glomerular Filtration Rate mL/min (>60) Glucose Level 93 MG/DL (74-106) Calcium Level 7.4 MG/DL (8.5-10.1) L Troponin I 0.044 ng/mL (0.000-0.056) Random Vancomycin Level 23.4 ug/mL Current Medications Medications (Trade) Dose Ordered Sig/Phillip Route PRN Reason Start Time Stop Time Status Last Admin Dose Admin Acetaminophen (Tylenol) 500 mg Q4H PRN ORAL Mild Pain/Temp > 100.5 05/19/19 08:00 06/17/19 07:59 Acetaminophen/ Hydrocodone Bitart (Hope 5/325) 1 tab Q6H PRN ORAL Severe Pain (Pain Scale 7-10) 05/19/19 08:00 05/25/19 07:59 Albuterol/ Ipratropium (Albuterol/ Ipratropium) 3 ml Q4HRT HHN 05/19/19 11:00 05/24/19 06:59 Amiodarone HCl 900 mg/Dextrose 500 ml @ 0 mls/hr Q24H IV 05/19/19 08:30 05/20/19 08:29 Apixaban (Eliquis) 2.5 mg BID ORAL 05/19/19 09:00 06/17/19 17:59 05/19/19 09:00 Docusate Sodium (Colace) 100 mg TWICE A DAY ORAL 05/19/19 09:00 06/17/19 17:59 Finasteride (Proscar) 5 mg DAILY ORAL 05/19/19 09:00 06/17/19 10:14 05/19/19 09:00 Lisinopril (ZestriL) 2.5 mg DAILY ORAL 05/19/19 09:00 06/17/19 10:14 Sodium Chloride 1,000 ml @ 75 mls/hr [id number] IV 05/19/19 08:00 06/17/19 10:14 Tamsulosin HCl (Flomax) 0.4 mg BEDTIME ORAL 05/19/19 21:00 06/17/19 20:59 Vancomycin HCl (Vanco rx to dose) 1 ea DAILY PRN MISC Per rx protocol 05/19/19 09:00 06/17/19 09:44 Jimbo Dodd MD May 19, 2019 10:15
--- NOTE | 2019-05-19 10:34 | General Progress Note ---
Assessment/Plan Problem List: (1) A-fib ICD Codes: I48.91 - Unspecified atrial fibrillation SNOMED: 76160016 (2) Cellulitis of upper extremity ICD Codes: L03.119 - Cellulitis of unspecified part of limb SNOMED: 599034792 Qualifiers: Qualified Codes: L03.113 - Cellulitis of right upper limb (3) Cellulitis ICD Codes: L03.90 - Cellulitis, unspecified SNOMED: 214475871 (4) SOB (shortness of breath) ICD Codes: R06.02 - Shortness of breath SNOMED: 593107114 (5) Renal insufficiency ICD Codes: N28.9 - Disorder of kidney and ureter, unspecified SNOMED: 096634007, 082973193 (6) Pneumonia ICD Codes: J18.9 - Pneumonia, unspecified organism SNOMED: 332810495 Qualifiers: Qualified Codes: J18.9 - Pneumonia, unspecified organism Status: unchanged Assessment/Plan: o2 pulm tx abx wound care cardio f/u cbc bmp am Subjective Constitutional: Reports: weakness Allergies: Coded Allergies: No Known Allergies (Unverified , 05/18/19) All Systems: reviewed and negative except above Subjective o2nc asleep in icu Objective Last 24 Hour Vital Signs Date Time Temp Pulse Resp B/P (MAP) Pulse Ox O2 Delivery O2 Flow Rate FiO2 05/19/19 09:00 Nasal Cannula 2.0 Nasal Cannula 2.0 Nasal Cannula 2.0 Nasal Cannula 2.0 05/19/19 09:00 79 19 154/64 (94) 94 05/19/19 08:30 98.4 84 25 125/67 (86) 94 05/19/19 08:08 152 25 100 Nasal Cannula 2.0 28 05/19/19 08:07 100 Nasal Cannula 2.0 100 05/19/19 08:00 88 05/19/19 08:00 98.4 148 25 121/69 (86) 94 05/19/19 04:00 97.7 80 20 143/80 (101) 96 05/19/19 03:37 55 05/19/19 00:00 99.3 88 20 134/88 (103) 97 05/19/19 00:00 84 05/18/19 21:00 Nasal Cannula 2.0 Nasal Cannula 2.0 Nasal Cannula 2.0 Nasal Cannula 2.0 05/18/19 20:00 98.2 83 20 145/74 (97) 96 05/18/19 19:35 76 05/18/19 16:00 97.9 73 20 129/64 (85) 96 05/18/19 16:00 73 05/18/19 12:00 85 05/18/19 12:00 98.2 86 20 146/76 (99) 98 Intake and Output 05/18/19 05/19/19 19:00 07:00 Intake Total 395 ml 686 ml Output Total 500 ml 400 ml Balance -105 ml 286 ml Intake Oral 320 ml 150 ml IV Total 75 ml 536 ml Output Urine Total 500 ml 400 ml # Voids 1 Laboratory Tests 05/19/19 06:08: White Blood Count 7.2, Red Blood Count 3.35L, Hemoglobin 9.8L, Hematocrit 29.8L , Mean Corpuscular Volume 89, Mean Corpuscular Hemoglobin 29.1, Mean Corpuscular Hemoglobin Concent 32.8, Red Cell Distribution Width 14.2, Platelet Count 189, Mean Platelet Volume 4.6L, Neutrophils (%) (Auto) 78.7H, Lymphocytes (%) (Auto) 7.1L, Monocytes (%) (Auto) 4.5, Eosinophils (%) (Auto) 9.0H, Basophils (%) (Auto) 0.7, Sodium Level 142, Potassium Level 3.5, Chloride Level 109H, Carbon Dioxide Level 23, Anion Gap 10, Blood Urea Nitrogen 28H, Creatinine 1.9H, Estimat Glomerular Filtration Rate , Glucose Level 93, Calcium Level 7.4L, Troponin I 0.044, Random Vancomycin Level 23.4 Height (Feet): 5 Height (Inches): 7.00 Weight (Pounds): 150 General Appearance: lethargic EENT: normal ENT inspection Neck: normal alignment Cardiovascular: normal peripheral pulses, normal rate, regular rhythm Respiratory/Chest: chest wall non-tender, lungs clear, normal breath sounds Abdomen: normal bowel sounds, non tender, soft Extremities: normal inspection Edema: no edema noted Arm (L), no edema noted Arm (R), no edema noted Leg (L), no edema noted Leg (R), no edema noted Pedal (L), no edema noted Pedal (R), no edema noted Generalized Neurologic: motor weakness Skin: normal pigmentation, warm/dry Jamarcus Hendrickson DO May 19, 2019 10:34
--- NOTE | 2019-05-19 10:45 | Cardiology Progress Note ---
Assessment/Plan Assessment/Plan The patient is seen and examined, full consult note is dictated. Objective Last 24 Hour Vital Signs Date Time Temp Pulse Resp B/P (MAP) Pulse Ox O2 Delivery O2 Flow Rate FiO2 05/19/19 09:00 Nasal Cannula 2.0 Nasal Cannula 2.0 Nasal Cannula 2.0 Nasal Cannula 2.0 05/19/19 09:00 79 19 154/64 (94) 94 05/19/19 08:30 98.4 84 25 125/67 (86) 94 05/19/19 08:08 152 25 100 Nasal Cannula 2.0 28 05/19/19 08:07 100 Nasal Cannula 2.0 100 05/19/19 08:00 88 05/19/19 08:00 98.4 148 25 121/69 (86) 94 05/19/19 04:00 97.7 80 20 143/80 (101) 96 05/19/19 03:37 55 05/19/19 00:00 99.3 88 20 134/88 (103) 97 05/19/19 00:00 84 05/18/19 21:00 Nasal Cannula 2.0 Nasal Cannula 2.0 Nasal Cannula 2.0 Nasal Cannula 2.0 05/18/19 20:00 98.2 83 20 145/74 (97) 96 05/18/19 19:35 76 05/18/19 16:00 97.9 73 20 129/64 (85) 96 05/18/19 16:00 73 05/18/19 12:00 85 05/18/19 12:00 98.2 86 20 146/76 (99) 98 Intake and Output 05/18/19 05/19/19 19:00 07:00 Intake Total 395 ml 686 ml Output Total 500 ml 400 ml Balance -105 ml 286 ml Intake Oral 320 ml 150 ml IV Total 75 ml 536 ml Output Urine Total 500 ml 400 ml # Voids 1 Laboratory Tests Test 05/19/19 06:08 White Blood Count 7.2 K/UL (4.8-10.8) Red Blood Count 3.35 M/UL (4.70-6.10) L Hemoglobin 9.8 G/DL (14.2-18.0) L Hematocrit 29.8 % (42.0-52.0) L Mean Corpuscular Volume 89 FL (80-99) Mean Corpuscular Hemoglobin 29.1 PG (27.0-31.0) Mean Corpuscular Hemoglobin Concent 32.8 G/DL (32.0-36.0) Red Cell Distribution Width 14.2 % (11.6-14.8) Platelet Count 189 K/UL (150-450) Mean Platelet Volume 4.6 FL (6.5-10.1) L Neutrophils (%) (Auto) 78.7 % (45.0-75.0) H Lymphocytes (%) (Auto) 7.1 % (20.0-45.0) L Monocytes (%) (Auto) 4.5 % (1.0-10.0) Eosinophils (%) (Auto) 9.0 % (0.0-3.0) H Basophils (%) (Auto) 0.7 % (0.0-2.0) Sodium Level 142 MMOL/L (136-145) Potassium Level 3.5 MMOL/L (3.5-5.1) Chloride Level 109 MMOL/L (98-107) H Carbon Dioxide Level 23 MMOL/L (21-32) Anion Gap 10 mmol/L (5-15) Blood Urea Nitrogen 28 mg/dL (7-18) H Creatinine 1.9 MG/DL (0.55-1.30) H Estimat Glomerular Filtration Rate mL/min (>60) Glucose Level 93 MG/DL (74-106) Calcium Level 7.4 MG/DL (8.5-10.1) L Troponin I 0.044 ng/mL (0.000-0.056) Random Vancomycin Level 23.4 ug/mL Microbiology Date/Time Source Procedure Growth Status 05/18/19 00:38 Blood Blood Culture - Preliminary NO GROWTH AFTER 24 HOURS Resulted 05/18/19 00:15 Blood Blood Culture - Preliminary NO GROWTH AFTER 24 HOURS Resulted 05/18/19 11:10 Catheter Site Catheter Tip Culture - Preliminary NO GROWTH Resulted 05/18/19 00:38 Rectum Received Del Garcia MD May 19, 2019 10:45
[2019-05-19] MEDS ORDERED: Digoxin 0.5mg/2ml Inj IVP SCH (11:00)
[2019-05-19] MEDS: Albuterol/Ipratropium 3ml neb HHN SCH ×4 (11:58→23:09)
--- NOTE | 2019-05-19 12:48 | Nephrology Progress Note ---
Assessment/Plan Status: unchanged Assessment/Plan: A/P 1. 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 Allow CHANDA inhibitor to continue as long as renal function does not worsen. Renal ultrasound to rule out the possibility of underlying obstruction. -Discontinue CHANDA inhibitor if renal function worsens. - Continue IV fluids. 2. Urinary tract infection. - per ID - PICC line has been removed. 3. Dehydration. Continue IV fluids. Subjective Date patient seen: May 19, 2019 Time patient seen: 12:45 ROS Limited/Unobtainable: No Allergies: Coded Allergies: No Known Allergies (Unverified , 05/18/19) Subjective Patient in ICU. No overt distress Objective Last 24 Hour Vital Signs Date Time Temp Pulse Resp B/P (MAP) Pulse Ox O2 Delivery O2 Flow Rate FiO2 05/19/19 11:58 97 23 100 Nasal Cannula 2.0 28 104 22 100 05/19/19 11:32 99 188/82 05/19/19 11:32 99 05/19/19 09:00 Nasal Cannula 2.0 Nasal Cannula 2.0 Nasal Cannula 2.0 Nasal Cannula 2.0 05/19/19 09:00 79 19 154/64 (94) 94 05/19/19 08:30 98.4 84 25 125/67 (86) 94 05/19/19 08:08 152 25 100 Nasal Cannula 2.0 28 05/19/19 08:07 100 Nasal Cannula 2.0 100 05/19/19 08:00 88 05/19/19 08:00 98.4 148 25 121/69 (86) 94 05/19/19 04:00 97.7 80 20 143/80 (101) 96 05/19/19 03:37 55 05/19/19 00:00 99.3 88 20 134/88 (103) 97 05/19/19 00:00 84 05/18/19 21:00 Nasal Cannula 2.0 Nasal Cannula 2.0 Nasal Cannula 2.0 Nasal Cannula 2.0 05/18/19 20:00 98.2 83 20 145/74 (97) 96 05/18/19 19:35 76 05/18/19 16:00 97.9 73 20 129/64 (85) 96 05/18/19 16:00 73 Intake and Output 05/18/19 05/19/19 19:00 07:00 Intake Total 395 ml 686 ml Output Total 500 ml 400 ml Balance -105 ml 286 ml Intake Oral 320 ml 150 ml IV Total 75 ml 536 ml Output Urine Total 500 ml 400 ml # Voids 1 Laboratory Tests 05/19/19 06:08: White Blood Count 7.2, Red Blood Count 3.35L, Hemoglobin 9.8L, Hematocrit 29.8L , Mean Corpuscular Volume 89, Mean Corpuscular Hemoglobin 29.1, Mean Corpuscular Hemoglobin Concent 32.8, Red Cell Distribution Width 14.2, Platelet Count 189, Mean Platelet Volume 4.6L, Neutrophils (%) (Auto) 78.7H, Lymphocytes (%) (Auto) 7.1L, Monocytes (%) (Auto) 4.5, Eosinophils (%) (Auto) 9.0H, Basophils (%) (Auto) 0.7, Sodium Level 142, Potassium Level 3.5, Chloride Level 109H, Carbon Dioxide Level 23, Anion Gap 10, Blood Urea Nitrogen 28H, Creatinine 1.9H, Estimat Glomerular Filtration Rate , Glucose Level 93, Calcium Level 7.4L, Troponin I 0.044, Random Vancomycin Level 23.4 Height (Feet): 5 Height (Inches): 7.00 Weight (Pounds): 150 General Appearance: no apparent distress, alert EENT: normal ENT inspection Neck: normal alignment, supple Cardiovascular: normal rate, regular rhythm Respiratory/Chest: lungs clear, normal breath sounds Abdomen: non tender, soft Edema: no edema noted Arm (L), no edema noted Arm (R), no edema noted Leg (L), no edema noted Leg (R), no edema noted Pedal (L), no edema noted Pedal (R), no edema noted Generalized Jimbo Lockhart MD May 19, 2019 12:48
--- NOTE | 2019-05-19 13:46 | Pulmonology Progress Note ---
Assessment/Plan Assessment/Plan IMPRESSION AND PLAN: 1. Abnormal chest x-ray. Suspect pneumonia. 2. Cellulitis. 3. History of COPD. 4. Hypertension. DISCUSSION: 1. No longer in a fib after amiodarone; to transfer out of ICU 2. Agree with present management and care. 3. Selena ue medications and HHN 4. Await chest CT. 5. I will follow as perinatal social worker. Arsen Whittaker M.D. Subjective Interval Events: Transferred to ICU for a fib Constitutional: Reports: no symptoms HEENT: Repors: no symptoms Respiratory: Reports: no symptoms Cardiovascular: Reports: no symptoms Gastrointestinal/Abdominal: Reports: no symptoms Genitourinary: Reports: no symptoms Allergies: Coded Allergies: No Known Allergies (Unverified , 05/18/19) Objective Last 24 Hour Vital Signs Date Time Temp Pulse Resp B/P (MAP) Pulse Ox O2 Delivery O2 Flow Rate FiO2 05/19/19 11:58 97 23 100 Nasal Cannula 2.0 28 104 22 100 05/19/19 11:32 99 188/82 05/19/19 11:32 99 05/19/19 09:00 Nasal Cannula 2.0 Nasal Cannula 2.0 Nasal Cannula 2.0 Nasal Cannula 2.0 05/19/19 09:00 79 19 154/64 (94) 94 05/19/19 08:30 98.4 84 25 125/67 (86) 94 05/19/19 08:08 152 25 100 Nasal Cannula 2.0 28 05/19/19 08:07 100 Nasal Cannula 2.0 100 05/19/19 08:00 88 05/19/19 08:00 98.4 148 25 121/69 (86) 94 05/19/19 04:00 97.7 80 20 143/80 (101) 96 05/19/19 03:37 55 05/19/19 00:00 99.3 88 20 134/88 (103) 97 05/19/19 00:00 84 05/18/19 21:00 Nasal Cannula 2.0 Nasal Cannula 2.0 Nasal Cannula 2.0 Nasal Cannula 2.0 05/18/19 20:00 98.2 83 20 145/74 (97) 96 05/18/19 19:35 76 05/18/19 16:00 97.9 73 20 129/64 (85) 96 05/18/19 16:00 73 Intake and Output 05/18/19 05/19/19 19:00 07:00 Intake Total 395 ml 686 ml Output Total 500 ml 400 ml Balance -105 ml 286 ml Intake Oral 320 ml 150 ml IV Total 75 ml 536 ml Output Urine Total 500 ml 400 ml # Voids 1 General Appearance: no acute distress HEENT: normocephalic Respiratory/Chest: chest wall non-tender, lungs clear Cardiovascular: normal peripheral pulses Abdomen: normal bowel sounds, soft, non tender Microbiology Date/Time Source Procedure Growth Status 05/18/19 00:38 Blood Blood Culture - Preliminary NO GROWTH AFTER 24 HOURS Resulted 05/18/19 00:15 Blood Blood Culture - Preliminary NO GROWTH AFTER 24 HOURS Resulted 05/18/19 11:10 Catheter Site Catheter Tip Culture - Preliminary NO GROWTH Resulted 05/18/19 00:38 Rectum Received Laboratory Tests 05/19/19 06:08: White Blood Count 7.2, Red Blood Count 3.35L, Hemoglobin 9.8L, Hematocrit 29.8L , Mean Corpuscular Volume 89, Mean Corpuscular Hemoglobin 29.1, Mean Corpuscular Hemoglobin Concent 32.8, Red Cell Distribution Width 14.2, Platelet Count 189, Mean Platelet Volume 4.6L, Neutrophils (%) (Auto) 78.7H, Lymphocytes (%) (Auto) 7.1L, Monocytes (%) (Auto) 4.5, Eosinophils (%) (Auto) 9.0H, Basophils (%) (Auto) 0.7, Sodium Level 142, Potassium Level 3.5, Chloride Level 109H, Carbon Dioxide Level 23, Anion Gap 10, Blood Urea Nitrogen 28H, Creatinine 1.9H, Estimat Glomerular Filtration Rate , Glucose Level 93, Calcium Level 7.4L, Troponin I 0.044, Random Vancomycin Level 23.4 Current Medications Medications (Trade) Dose Ordered Sig/Phillip Route PRN Reason Start Time Stop Time Status Last Admin Dose Admin Acetaminophen (Tylenol) 500 mg Q4H PRN ORAL Mild Pain/Temp > 100.5 05/19/19 08:00 06/17/19 07:59 Acetaminophen/ Hydrocodone Bitart ([place] 5/325) 1 tab Q6H PRN ORAL Severe Pain (Pain Scale 7-10) 05/19/19 08:00 05/25/19 07:59 Albuterol/ Ipratropium (Albuterol/ Ipratropium) 3 ml Q4HRT HHN 05/19/19 11:00 05/24/19 06:59 05/19/19 11:58 Amiodarone HCl 900 mg/Dextrose 500 ml @ 0 mls/hr Q24H IV 05/19/19 08:30 05/20/19 08:29 Apixaban (Eliquis) 2.5 mg BID ORAL 05/19/19 09:00 06/17/19 17:59 05/19/19 09:00 Docusate Sodium (Colace) 100 mg TWICE A DAY ORAL 05/19/19 09:00 06/17/19 17:59 Finasteride (Proscar) 5 mg DAILY ORAL 05/19/19 09:00 06/17/19 10:14 05/19/19 09:00 Lisinopril (ZestriL) 2.5 mg DAILY ORAL 05/19/19 09:00 06/17/19 10:14 Metoprolol Tartrate (Lopressor) 25 mg Q12HR ORAL 05/19/19 11:00 06/18/19 10:59 05/19/19 11:32 Sodium Chloride 1,000 ml @ 75 mls/hr [id number] IV 05/19/19 08:00 06/17/19 10:14 Tamsulosin HCl (Flomax) 0.4 mg BEDTIME ORAL 05/19/19 21:00 06/17/19 20:59 Vancomycin HCl (Vanco rx to dose) 1 ea DAILY PRN MISC Per rx protocol 05/19/19 09:00 06/17/19 09:44 Arsen Whittaker MD May 19, 2019 13:46
--- NOTE | 2019-05-19 15:26 | Diagnostic Imaging Report ---
Indication:Elevated Bun and Creatinine. Technique: Grayscale and duplex Doppler imaging of the kidneys performed. Comparison: None Findings: Size and contour of the kidneys are normal. Cortical echogenicity is increased. There is no hydronephrosis. The right kidney measures 10.5 cm. in length. The left kidney measures 10.8 cm. in length. The IVC is patent. Urinary bladder is unremarkable. Polanco catheter noted. IMPRESSION: Suspected medical renal disease. Correlate clinically. Polanco catheter
[2019-05-19] MEDS ORDERED: UTI-STAT L3875 MG/31 PO (18:46)
--- NOTE | 2019-05-19 20:30 | Consultation ---
DATE OF CONSULTATION: 05/19/2019 CARDIOLOGY CONSULTATION CONSULTING PHYSICIAN: Del Garcia M.D. REFERRING PHYSICIAN: Jamarcus Hendrickson D.O. REASON FOR CONSULTATION: Management of atrial fibrillation with rapid ventricular response. HISTORY OF PRESENT ILLNESS: The patient is a very unfortunate 84-year-old gentleman, who initially was admitted to the hospital on May 18 from long term facility due to redness and swelling of the right upper extremity around the PICC line. Apparently, the patient was receiving vancomycin through the PICC line for UTI. The patient was complaining of wheezing and shortness of breath at the time of arrival to the hospital, as well. At the time of the arrival to the hospital, blood pressure was 139/76 mmHg and heart rate was 92. His 12-lead electrocardiogram was significant for sinus rhythm with no acute ischemic changes. Laboratory finding was significant for mild anemia, hypokalemia with potassium of 3.2, BUN creatinine of 29 and 1.9 respectively, and troponin I level of 0.039. His proBNP was 2453. The patient was admitted to the hospital. However, in the course of this hospitalization, suddenly he became short of breath. A 12-lead electrocardiogram confirmed atrial fibrillation with rapid ventricular response at a rate of 181. The patient was started on amiodarone drip at my request and transferred to intensive care unit. The patient was later found to have a clot in the right basilar vein after removal of the PICC line from the right upper extremity. He was also placed on Eliquis for that condition. At the bedside in the intensive care unit, he is alert and oriented x4 and answering my questions appropriately. He denies any chest pain or heart flutter, but still some residual of his shortness of breath is present. At this time, bus driver/monitor reveals normal sinus rhythm. Apparently, he was converted to sinus rhythm even prior to initiation of amiodarone drip. PAST MEDICAL HISTORY: Hypertension. PAST SURGICAL HISTORY: Status post PICC line placement for IV antibiotics. FAMILY HISTORY: No premature coronary artery disease in the first-degree relatives. ALLERGIES: No known drug allergies. REVIEW OF SYSTEMS: HEENT: Denies any headache, diplopia, or blurred vision. CONSTITUTIONAL: Denies any fever, chills, night sweats, or weight loss. CARDIOVASCULAR: He has some shortness of breath, but no palpitation, PND, orthopnea, leg swelling, or syncope. PULMONARY: Denies any cough, hemoptysis, or wheezing. GASTROINTESTINAL: Denies any nausea, vomiting, diarrhea, constipation, abdominal pain, or GI bleed. GENITOURINARY: Denies any hematuria, dysuria, or incontinence. NEUROLOGICAL: Denies any motor dysfunction, sensory deficit, or altered speech. MEDICATIONS: List of medications in the nursing facility included acetaminophen 650 mg q.4 hours p.r.n. temperature above 100.5 and mild pain, bisacodyl 10 mg rectal daily p.r.n. constipation, cranberry 450 mg p.o. twice daily, Colace 100 mg p.o. daily, enoxaparin 40 mg subcutaneous daily, Proscar 5 mg p.o. daily, [place] 5/325 mg one tablet q.6 hours p.r.n. pain, lisinopril 2.5 mg p.o. daily, milk of magnesia 30 mL p.o. nightly p.r.n. constipation, Fleet Enema 133 mL rectal daily p.r.n. constipation, and Flomax 0.4 mg p.o. nightly. PHYSICAL EXAMINATION: VITAL SIGNS: Blood pressure was 139/76, pulse 92, respirations 20, and temperature 98.1 degrees Fahrenheit. O2 saturation 93% on nasal cannula 2 liters per minute and FiO2 of 29%. Current bus driver/monitor shows sinus rhythm at a rate of 90. Rhythm strip earlier today showed atrial fibrillation with rapid ventricular response at a rate of 181. GENERAL APPEARANCE: A very pleasant 84-year-old gentleman, in no apparent respiratory distress. Alert, awake, and oriented x4. HEENT: Atraumatic and normocephalic. Anicteric. Pupils are equal, round, and reactive to light and accommodation. Extraocular muscles intact. NECK: JVP less than 5 cm. No carotid bruit. Carotid upstroke is 2+ bilaterally. CARDIOVASCULAR: Normal S1, S2. Regular rate and rhythm. No murmurs, gallops, or rubs. PMI is at fourth intercostal space in the midclavicular line. LUNGS: Clear to auscultation bilaterally. Positive for wheezing. ABDOMEN: Soft, nontender, and nondistended. No hepatosplenomegaly. Positive bowel sounds. EXTREMITIES: No evidence of edema, clubbing, or cyanosis. DIAGNOSTIC DATA: Chest x-ray shows no significant cardiac enlargement, ill-defined nodular density in both lungs, left lower lobe densities, atelectasis versus pneumonia, left pleural effusion. Nonemergent CT of chest recommended. Presence of a PICC line catheter in the SVC. This is chest x-ray from 05/18/2019. LABORATORY FINDINGS: WBC 8.8, hemoglobin 10.9, hematocrit 32.1, and platelet count 253,000. Sodium 142, potassium 3.3, chloride 107, bicarbonate 27, BUN 29, and creatinine 1.9. Glucose is 110. Calcium is 7.7. Troponin I is 0.039 and 0.044. ProBNP 2453. ASSESSMENT AND PLAN: The patient is a very unfortunate 84-year-old gentleman, who is seen in Cardiology consultation. 1. Atrial fibrillation with rapid ventricular response, most likely due to combination of sepsis and hypovolemia. The patient requires to have intravascular volume expansion with fluid as Dr. Lockhart has initiated. The patient did not require amiodarone infusion as he spontaneously converted to sinus rhythm. I would like to give digoxin 0.25 mg IV push x1 dose in face of renal failure as well as metoprolol 25 mg twice daily to keep the heart rate in 50s. The patient will also be continued on Eliquis as prescribed. 2. History of hypertension. 3. History of renal failure. I would like to thank Dr. Hendrickson for allowing me to participate in the care of this patient. Del Garcia M.D. DR: TANK JOB#: [id number] CC:
[2019-05-19] MEDS ORDERED: Tamsulosin 0.4mg cap ORAL SCH (21:00)
--- NOTE | 2019-05-19 21:30 | Surgery Progress Note ---
Surgery Progress Note Subjective Additional Comments In ICU. Catheter tip micro noted. Ill-appearing. Labs noted. Deconditioned Objective Last 24 Hour Vital Signs Date Time Temp Pulse Resp B/P (MAP) Pulse Ox O2 Delivery O2 Flow Rate FiO2 05/19/19 20:26 177 136/98 05/19/19 19:35 100 Nasal Cannula 2.0 28 05/19/19 19:32 130 21 100 Nasal Cannula 2.0 28 173 24 94 05/19/19 16:02 45 19 98 Nasal Cannula 2.0 28 47 26 98 05/19/19 16:00 98.5 48 22 133/47 (75) 100 05/19/19 16:00 54 05/19/19 12:00 71 05/19/19 12:00 98.3 70 17 163/69 (100) 100 05/19/19 11:58 97 23 100 Nasal Cannula 2.0 28 104 22 100 05/19/19 11:32 99 188/82 05/19/19 11:32 99 05/19/19 09:00 Nasal Cannula 2.0 Nasal Cannula 2.0 Nasal Cannula 2.0 Nasal Cannula 2.0 05/19/19 09:00 79 19 154/64 (94) 94 05/19/19 08:30 98.4 84 25 125/67 (86) 94 05/19/19 08:08 152 25 100 Nasal Cannula 2.0 28 05/19/19 08:07 100 Nasal Cannula 2.0 100 05/19/19 08:00 88 05/19/19 08:00 98.4 148 25 121/69 (86) 94 05/19/19 04:00 97.7 80 20 143/80 (101) 96 05/19/19 03:37 55 05/19/19 00:00 99.3 88 20 134/88 (103) 97 05/19/19 00:00 84 I&O Intake and Output 05/18/19 05/19/19 19:00 07:00 Intake Total 395 ml 686 ml Output Total 500 ml 400 ml Balance -105 ml 286 ml Intake Oral 320 ml 150 ml IV Total 75 ml 536 ml Output Urine Total 500 ml 400 ml # Voids 1 Dressing: dry Wound: clean Cardiovascular: RSR Respiratory: decreased breath sounds Abdomen: soft, present bowel sounds Extremities: no cyanosis, other Laboratory Tests Test 05/19/19 06:08 White Blood Count 7.2 K/UL (4.8-10.8) Red Blood Count 3.35 M/UL (4.70-6.10) L Hemoglobin 9.8 G/DL (14.2-18.0) L Hematocrit 29.8 % (42.0-52.0) L Mean Corpuscular Volume 89 FL (80-99) Mean Corpuscular Hemoglobin 29.1 PG (27.0-31.0) Mean Corpuscular Hemoglobin Concent 32.8 G/DL (32.0-36.0) Red Cell Distribution Width 14.2 % (11.6-14.8) Platelet Count 189 K/UL (150-450) Mean Platelet Volume 4.6 FL (6.5-10.1) L Neutrophils (%) (Auto) 78.7 % (45.0-75.0) H Lymphocytes (%) (Auto) 7.1 % (20.0-45.0) L Monocytes (%) (Auto) 4.5 % (1.0-10.0) Eosinophils (%) (Auto) 9.0 % (0.0-3.0) H Basophils (%) (Auto) 0.7 % (0.0-2.0) Sodium Level 142 MMOL/L (136-145) Potassium Level 3.5 MMOL/L (3.5-5.1) Chloride Level 109 MMOL/L (98-107) H Carbon Dioxide Level 23 MMOL/L (21-32) Anion Gap 10 mmol/L (5-15) Blood Urea Nitrogen 28 mg/dL (7-18) H Creatinine 1.9 MG/DL (0.55-1.30) H Estimat Glomerular Filtration Rate mL/min (>60) Glucose Level 93 MG/DL (74-106) Calcium Level 7.4 MG/DL (8.5-10.1) L Troponin I 0.044 ng/mL (0.000-0.056) Random Vancomycin Level 23.4 ug/mL Plan Problems: (1) Cellulitis of upper extremity Assessment & Plan: 84M with RUE cellulitis, edema, erythema. no drainage. has RUE picc line recommend removal of picc. removed at bedside by myself on 05/18. pressure held, hemostasis noted, dressings applied. cath tip sent for cultures DVT duplex studies IV Abx as per ID UA pending Cx results keep RUE elevated on pillows okay for diet AM labs will follow with recs thank you Bennett Logan May 19, 2019 21:30
[2019-05-20] VITALS (21 sets, daily range): BP systolic 109–177; BP diastolic 43–118
[2019-05-20] MEDS: Albuterol/Ipratropium 3ml neb HHN SCH ×3 (03:34→11:00)
[2019-05-20 07:00] LABS: ANION GAP 11 mmol/L (5-15); BLOOD UREA NITROGEN 28 mg/dL (7-18); CALCIUM 7.2 MG/DL (8.5-10.1); CARBON DIOXIDE 21 MMOL/L (21-32); CHLORIDE 108 MMOL/L (98-107); POTASSIUM 3.6 MMOL/L (3.5-5.1); SODIUM 139 MMOL/L (136-145)
[2019-05-20 07:32] LABS: BASOPHILS % (AUTO) 1.3 % (0.0-2.0); EOSINOPHILS % (AUTO) 5.6 % (0.0-3.0); HEMATOCRIT 29.5 % (42.0-52.0); HEMOGLOBIN 10.1 G/DL (14.2-18.0); LYMPHOCYTES % (AUTO) 6.6 % (20.0-45.0); MEAN CORPUSCULAR VOLUME 90 FL (80-99); MONOCYTES % (AUTO) 5.9 % (1.0-10.0); NEUTROPHILS % (AUTO) 80.6 % (45.0-75.0); PLATELET COUNT 204 K/UL (150-450); RED BLOOD COUNT 3.28 M/UL (4.70-6.10); RED CELL DISTRIBUTION WIDTH 14.8 % (11.6-14.8); WHITE BLOOD COUNT 6.2 K/UL (4.8-10.8)
[2019-05-20] MEDS: Docusate 100mg cap ORAL SCH (08:19)
[2019-05-20] MEDS: Eliquis 2.5mg tablet ORAL SCH ×2 (08:20→17:33)
[2019-05-20] MEDS: Lisinopril 2.5mg tab ORAL SCH (08:20)
--- NOTE | 2019-05-20 10:48 | Infectious Diseases Prog Note ---
Assessment/Plan Assessment/Plan 84 yo male withPMHx of HTN who pwas sent to the ED on 05/18/19 from his [facility] for possible picc line infection. Swelling around PICC line Minimal to no erythema and no purulent drainage Not likely to be infected Blood Cx 05/18/19 - NGTD PICC Tip Cx 05/18/19 - NGTD PICC line removed 05/18/19 No Leukocytosis No fever OM - Let foot On Vancomycin at nursing End date early May SOB on 2L NC CXR - Some LLL Atelectasis vs PNA, Nodules HTN PLAN - Continue Vancomcyin per pharmacy - End date per [facility] MD - f/u surgery recs - f/u Cultures - Monitor CBC and Temps Thank you for this consult. [facility] will continue to follow the patient with you during this hospitalization. Subjective Allergies: Coded Allergies: No Known Allergies (Unverified , 05/18/19) Subjective Afebrile No Leukocytosis Satting well on 2L NC DAVID Objective Vital Signs Last 24 Hour Vital Signs Date Time Temp Pulse Resp B/P (MAP) Pulse Ox O2 Delivery O2 Flow Rate FiO2 05/20/19 10:00 82 17 157/62 (93) 99 05/20/19 09:00 98.1 85 17 109/62 (78) 97 05/20/19 08:20 138/50 05/20/19 08:00 Nasal Cannula 2.0 Nasal Cannula 2.0 05/20/19 08:00 88 15 138/50 (79) 95 05/20/19 07:55 103 05/20/19 07:15 85 23 100 Nasal Cannula 2.0 28 88 21 97 05/20/19 07:13 97 Nasal Cannula 2.0 28 05/20/19 07:00 87 18 121/45 (70) 97 05/20/19 06:00 77 18 142/118 (126) 97 05/20/19 05:00 76 18 150/69 (96) 97 05/20/19 04:00 Nasal Cannula 2.0 Nasal Cannula 2.0 Nasal Cannula 2.0 Nasal Cannula 2.0 05/20/19 04:00 98.6 05/20/19 04:00 93 18 166/66 (99) 96 05/20/19 03:34 78 23 100 Nasal Cannula 2.0 28 75 24 96 05/20/19 03:00 78 18 171/64 (99) 23 05/20/19 02:00 70 18 139/47 (77) 98 05/20/19 01:00 74 18 127/43 (71) 98 05/20/19 00:00 98.6 72 18 127/60 (82) 98 05/20/19 00:00 Nasal Cannula 2.0 Nasal Cannula 2.0 Nasal Cannula 2.0 Nasal Cannula 2.0 05/20/19 00:00 72 05/19/19 23:09 67 22 100 Nasal Cannula 2.0 28 68 23 99 05/19/19 23:00 72 18 127/60 (82) 98 05/19/19 22:00 66 18 132/52 (78) 100 05/19/19 21:00 Nasal Cannula 2.0 Nasal Cannula 2.0 Nasal Cannula 2.0 Nasal Cannula 2.0 05/19/19 21:00 68 18 123/56 (78) 100 05/19/19 20:26 177 136/98 05/19/19 20:00 98.9 166 20 130/100 (110) 92 05/19/19 20:00 166 05/19/19 19:35 100 Nasal Cannula 2.0 28 05/19/19 19:32 130 21 100 Nasal Cannula 2.0 28 173 24 94 05/19/19 16:02 45 19 98 Nasal Cannula 2.0 28 47 26 98 05/19/19 16:00 98.5 48 22 133/47 (75) 100 05/19/19 16:00 54 05/19/19 12:00 71 05/19/19 12:00 98.3 70 17 163/69 (100) 100 05/19/19 11:58 97 23 100 Nasal Cannula 2.0 28 104 22 100 05/19/19 11:32 99 188/82 05/19/19 11:32 99 Height (Feet): 5 Height (Inches): 7.00 Weight (Pounds): 150 Objective Gen: NAD, Satting well HEENT: NCAT, MMM, EOMI LUNGS: CTAB, No W CARDS: RRR, S1, S2 ABD: Soft, NT, ND Microbiology Date/Time Source Procedure Growth Status 05/18/19 00:38 Blood Blood Culture - Preliminary NO GROWTH AFTER 48 HOURS Resulted 05/18/19 00:15 Blood Blood Culture - Preliminary NO GROWTH AFTER 48 HOURS Resulted 05/18/19 00:38 Nasal Nares MRSA Culture - Final NO METHICILLIN RESISTANT STAPH AUREUS... Complete 05/18/19 11:10 Catheter Site Catheter Tip Culture - Preliminary NO GROWTH AFTER 24 HOURS Resulted 05/18/19 00:38 Rectum VRE Culture - Final Enterococcus Faecalis - Vre Complete Laboratory Tests Test 05/20/19 05:50 05/20/19 08:25 White Blood Count 6.2 K/UL (4.8-10.8) Red Blood Count 3.28 M/UL (4.70-6.10) L Hemoglobin 10.1 G/DL (14.2-18.0) L Hematocrit 29.5 % (42.0-52.0) L Mean Corpuscular Volume 90 FL (80-99) Mean Corpuscular Hemoglobin 30.8 PG (27.0-31.0) Mean Corpuscular Hemoglobin Concent 34.3 G/DL (32.0-36.0) Red Cell Distribution Width 14.8 % (11.6-14.8) Platelet Count 204 K/UL (150-450) Mean Platelet Volume 4.7 FL (6.5-10.1) L Neutrophils (%) (Auto) 80.6 % (45.0-75.0) H Lymphocytes (%) (Auto) 6.6 % (20.0-45.0) L Monocytes (%) (Auto) 5.9 % (1.0-10.0) Eosinophils (%) (Auto) 5.6 % (0.0-3.0) H Basophils (%) (Auto) 1.3 % (0.0-2.0) Sodium Level 139 MMOL/L (136-145) Potassium Level 3.6 MMOL/L (3.5-5.1) Chloride Level 108 MMOL/L (98-107) H Carbon Dioxide Level 21 MMOL/L (21-32) Anion Gap 11 mmol/L (5-15) Blood Urea Nitrogen 28 mg/dL (7-18) H Creatinine 2.0 MG/DL (0.55-1.30) H Estimat Glomerular Filtration Rate mL/min (>60) Glucose Level 97 MG/DL (74-106) Calcium Level 7.2 MG/DL (8.5-10.1) L Random Vancomycin Level 18.7 ug/mL Current Medications Medications (Trade) Dose Ordered Sig/Phillip Route PRN Reason Start Time Stop Time Status Last Admin Dose Admin Acetaminophen (Tylenol) 500 mg Q4H PRN ORAL Mild Pain/Temp > 100.5 05/19/19 08:00 06/17/19 07:59 Acetaminophen/ Hydrocodone Bitart ([place] 5/325) 1 tab Q6H PRN ORAL Severe Pain (Pain Scale 7-10) 05/19/19 08:00 05/25/19 07:59 05/20/19 03:30 Albuterol/ Ipratropium (Albuterol/ Ipratropium) 3 ml Q4HRT HHN 05/19/19 11:00 05/24/19 06:59 05/20/19 07:13 Amiodarone HCl (Cordarone) 200 mg DAILY ORAL 05/21/19 09:00 06/20/19 08:59 Amiodarone HCl 900 mg/Dextrose 500 ml @ 0 mls/hr Q24H IV 05/19/19 21:45 05/20/19 21:44 Apixaban (Eliquis) 2.5 mg BID ORAL 05/19/19 09:00 06/17/19 17:59 05/20/19 08:20 Docusate Sodium (Colace) 100 mg TWICE A DAY ORAL 05/19/19 09:00 06/17/19 17:59 05/20/19 08:19 Finasteride (Proscar) 5 mg DAILY ORAL 05/19/19 09:00 06/17/19 10:14 05/20/19 08:20 Lisinopril (ZestriL) 2.5 mg DAILY ORAL 05/19/19 09:00 06/17/19 10:14 05/20/19 08:20 Sodium Chloride 1,000 ml @ 75 mls/hr [id number] IV 05/19/19 08:00 06/17/19 10:14 05/20/19 05:21 Tamsulosin HCl (Flomax) 0.4 mg BEDTIME ORAL 05/19/19 21:00 06/17/19 20:59 05/19/19 20:26 Vancomycin HCl (Vanco rx to dose) 1 ea DAILY PRN MISC Per rx protocol 05/19/19 09:00 06/17/19 09:44 Vancomycin HCl 1 gm/Dextrose 275 ml @ 183.708 mls/hr ONCE IVPB 05/20/19 11:00 05/20/19 13:00 Jimbo Dodd MD May 20, 2019 10:48
[2019-05-20] MEDS ORDERED: Vancomycin 1gm in D5W 275ml IVPB SCH (11:00)
[2019-05-20] MEDS: Ipratropium 0.02% Inh Soln 2.5ml UD HHN SCH ×2 (11:40→15:01)
--- NOTE | 2019-05-20 12:28 | Surgery Progress Note ---
Surgery Progress Note Subjective Additional Comments no acute events labs noted exam stable comfortable appearing Objective Last 24 Hour Vital Signs Date Time Temp Pulse Resp B/P (MAP) Pulse Ox O2 Delivery O2 Flow Rate FiO2 05/20/19 12:00 Nasal Cannula 2.0 Nasal Cannula 2.0 05/20/19 12:00 97.7 87 14 140/60 (86) 92 05/20/19 11:40 88 05/20/19 11:00 90 18 149/59 (89) 98 05/20/19 10:00 82 17 157/62 (93) 99 05/20/19 09:00 98.1 85 17 109/62 (78) 97 05/20/19 08:20 138/50 05/20/19 08:00 Nasal Cannula 2.0 Nasal Cannula 2.0 05/20/19 08:00 88 15 138/50 (79) 95 05/20/19 07:55 103 05/20/19 07:15 85 23 100 Nasal Cannula 2.0 28 88 21 97 05/20/19 07:13 97 Nasal Cannula 2.0 28 05/20/19 07:00 87 18 121/45 (70) 97 05/20/19 06:00 77 18 142/118 (126) 97 05/20/19 05:00 76 18 150/69 (96) 97 05/20/19 04:00 Nasal Cannula 2.0 Nasal Cannula 2.0 Nasal Cannula 2.0 Nasal Cannula 2.0 05/20/19 04:00 98.6 05/20/19 04:00 93 18 166/66 (99) 96 05/20/19 03:34 78 23 100 Nasal Cannula 2.0 28 75 24 96 05/20/19 03:00 78 18 171/64 (99) 23 05/20/19 02:00 70 18 139/47 (77) 98 05/20/19 01:00 74 18 127/43 (71) 98 05/20/19 00:00 98.6 72 18 127/60 (82) 98 05/20/19 00:00 Nasal Cannula 2.0 Nasal Cannula 2.0 Nasal Cannula 2.0 Nasal Cannula 2.0 05/20/19 00:00 72 05/19/19 23:09 67 22 100 Nasal Cannula 2.0 28 68 23 99 05/19/19 23:00 72 18 127/60 (82) 98 05/19/19 22:00 66 18 132/52 (78) 100 05/19/19 21:00 Nasal Cannula 2.0 Nasal Cannula 2.0 Nasal Cannula 2.0 Nasal Cannula 2.0 05/19/19 21:00 68 18 123/56 (78) 100 05/19/19 20:26 177 136/98 05/19/19 20:00 98.9 166 20 130/100 (110) 92 05/19/19 20:00 166 05/19/19 19:35 100 Nasal Cannula 2.0 28 05/19/19 19:32 130 21 100 Nasal Cannula 2.0 28 173 24 94 05/19/19 16:02 45 19 98 Nasal Cannula 2.0 28 47 26 98 05/19/19 16:00 98.5 48 22 133/47 (75) 100 05/19/19 16:00 54 I&O Intake and Output 05/19/19 05/20/19 19:00 07:00 Intake Total 460 ml 1260 ml Output Total 430 ml 375 ml Balance 30 ml 885 ml Intake Oral 460 ml 360 ml IV Total 900 ml Output Urine Total 430 ml 375 ml # Bowel Movements 4 Dressing: dry Wound: clean Cardiovascular: RSR Respiratory: clear Abdomen: soft, flat, non-tender, present bowel sounds Extremities: no tenderness, no cyanosis, other Laboratory Tests Test 05/20/19 05:50 05/20/19 08:25 White Blood Count 6.2 K/UL (4.8-10.8) Red Blood Count 3.28 M/UL (4.70-6.10) L Hemoglobin 10.1 G/DL (14.2-18.0) L Hematocrit 29.5 % (42.0-52.0) L Mean Corpuscular Volume 90 FL (80-99) Mean Corpuscular Hemoglobin 30.8 PG (27.0-31.0) Mean Corpuscular Hemoglobin Concent 34.3 G/DL (32.0-36.0) Red Cell Distribution Width 14.8 % (11.6-14.8) Platelet Count 204 K/UL (150-450) Mean Platelet Volume 4.7 FL (6.5-10.1) L Neutrophils (%) (Auto) 80.6 % (45.0-75.0) H Lymphocytes (%) (Auto) 6.6 % (20.0-45.0) L Monocytes (%) (Auto) 5.9 % (1.0-10.0) Eosinophils (%) (Auto) 5.6 % (0.0-3.0) H Basophils (%) (Auto) 1.3 % (0.0-2.0) Sodium Level 139 MMOL/L (136-145) Potassium Level 3.6 MMOL/L (3.5-5.1) Chloride Level 108 MMOL/L (98-107) H Carbon Dioxide Level 21 MMOL/L (21-32) Anion Gap 11 mmol/L (5-15) Blood Urea Nitrogen 28 mg/dL (7-18) H Creatinine 2.0 MG/DL (0.55-1.30) H Estimat Glomerular Filtration Rate mL/min (>60) Glucose Level 97 MG/DL (74-106) Calcium Level 7.2 MG/DL (8.5-10.1) L Random Vancomycin Level 18.7 ug/mL Plan Problems: (1) Cellulitis of upper extremity Assessment & Plan: 84M with RUE cellulitis, edema, erythema. no drainage. has RUE picc line recommend removal of picc. removed at bedside by myself on 05/18. pressure held, hemostasis noted, dressings applied. cath tip sent for cultures DVT duplex studies with acute thrombus IV Abx as per ID UA pending Cx results keep RUE elevated on pillows okay for diet AM labs anticoagulation off load pressure for dti noted will follow with recs thank you Bennett Logan May 20, 2019 12:28
--- NOTE | 2019-05-20 13:21 | General Progress Note ---
Assessment/Plan Problem List: (1) A-fib ICD Codes: I48.91 - Unspecified atrial fibrillation SNOMED: 47524626 (2) Cellulitis of upper extremity ICD Codes: L03.119 - Cellulitis of unspecified part of limb SNOMED: 090064770 Qualifiers: Qualified Codes: L03.113 - Cellulitis of right upper limb (3) Cellulitis ICD Codes: L03.90 - Cellulitis, unspecified SNOMED: 330574556 (4) SOB (shortness of breath) ICD Codes: R06.02 - Shortness of breath SNOMED: 035837712 (5) Renal insufficiency ICD Codes: N28.9 - Disorder of kidney and ureter, unspecified SNOMED: 132427458, 796418907 (6) Pneumonia ICD Codes: J18.9 - Pneumonia, unspecified organism SNOMED: 995881759 Qualifiers: Qualified Codes: J18.9 - Pneumonia, unspecified organism Status: unchanged Assessment/Plan: o2 pulm tx abx wound care cardio f/u cbc bmp am Subjective Constitutional: Reports: weakness Allergies: Coded Allergies: No Known Allergies (Unverified , 05/18/19) All Systems: reviewed and negative except above Subjective o2nc asleep in icu Objective Last 24 Hour Vital Signs Date Time Temp Pulse Resp B/P (MAP) Pulse Ox O2 Delivery O2 Flow Rate FiO2 05/20/19 12:00 Nasal Cannula 2.0 Nasal Cannula 2.0 05/20/19 12:00 97.7 87 14 140/60 (86) 92 05/20/19 11:40 88 05/20/19 11:00 90 18 149/59 (89) 98 05/20/19 10:00 82 17 157/62 (93) 99 05/20/19 09:00 98.1 85 17 109/62 (78) 97 05/20/19 08:20 138/50 05/20/19 08:00 Nasal Cannula 2.0 Nasal Cannula 2.0 05/20/19 08:00 88 15 138/50 (79) 95 05/20/19 07:55 103 05/20/19 07:15 85 23 100 Nasal Cannula 2.0 28 88 21 97 05/20/19 07:13 97 Nasal Cannula 2.0 28 05/20/19 07:00 87 18 121/45 (70) 97 05/20/19 06:00 77 18 142/118 (126) 97 05/20/19 05:00 76 18 150/69 (96) 97 05/20/19 04:00 Nasal Cannula 2.0 Nasal Cannula 2.0 Nasal Cannula 2.0 Nasal Cannula 2.0 05/20/19 04:00 98.6 05/20/19 04:00 93 18 166/66 (99) 96 05/20/19 03:34 78 23 100 Nasal Cannula 2.0 28 75 24 96 05/20/19 03:00 78 18 171/64 (99) 23 05/20/19 02:00 70 18 139/47 (77) 98 05/20/19 01:00 74 18 127/43 (71) 98 05/20/19 00:00 98.6 72 18 127/60 (82) 98 05/20/19 00:00 Nasal Cannula 2.0 Nasal Cannula 2.0 Nasal Cannula 2.0 Nasal Cannula 2.0 05/20/19 00:00 72 05/19/19 23:09 67 22 100 Nasal Cannula 2.0 28 68 23 99 05/19/19 23:00 72 18 127/60 (82) 98 05/19/19 22:00 66 18 132/52 (78) 100 05/19/19 21:00 Nasal Cannula 2.0 Nasal Cannula 2.0 Nasal Cannula 2.0 Nasal Cannula 2.0 05/19/19 21:00 68 18 123/56 (78) 100 05/19/19 20:26 177 136/98 05/19/19 20:00 98.9 166 20 130/100 (110) 92 05/19/19 20:00 166 05/19/19 19:35 100 Nasal Cannula 2.0 28 05/19/19 19:32 130 21 100 Nasal Cannula 2.0 28 173 24 94 05/19/19 16:02 45 19 98 Nasal Cannula 2.0 28 47 26 98 05/19/19 16:00 98.5 48 22 133/47 (75) 100 05/19/19 16:00 54 Intake and Output 05/19/19 05/20/19 19:00 07:00 Intake Total 460 ml 1260 ml Output Total 430 ml 375 ml Balance 30 ml 885 ml Intake Oral 460 ml 360 ml IV Total 900 ml Output Urine Total 430 ml 375 ml # Bowel Movements 4 Laboratory Tests 05/20/19 05:50: White Blood Count 6.2, Red Blood Count 3.28L, Hemoglobin 10.1L, Hematocrit 29.5L , Mean Corpuscular Volume 90, Mean Corpuscular Hemoglobin 30.8, Mean Corpuscular Hemoglobin Concent 34.3, Red Cell Distribution Width 14.8, Platelet Count 204, Mean Platelet Volume 4.7L, Neutrophils (%) (Auto) 80.6H, Lymphocytes (%) (Auto) 6.6L, Monocytes (%) (Auto) 5.9, Eosinophils (%) (Auto) 5.6H, Basophils (%) (Auto) 1.3, Sodium Level 139, Potassium Level 3.6, Chloride Level 108H, Carbon Dioxide Level 21, Anion Gap 11, Blood Urea Nitrogen 28H, Creatinine 2.0H, Estimat Glomerular Filtration Rate , Glucose Level 97, Calcium Level 7.2L 05/20/19 08:25: Random Vancomycin Level 18.7 Height (Feet): 5 Height (Inches): 7.00 Weight (Pounds): 166 General Appearance: lethargic EENT: normal ENT inspection Neck: normal alignment Cardiovascular: normal peripheral pulses, normal rate, regular rhythm Respiratory/Chest: chest wall non-tender, lungs clear, normal breath sounds Abdomen: normal bowel sounds, non tender, soft Extremities: normal inspection Edema: no edema noted Arm (L), no edema noted Arm (R), no edema noted Leg (L), no edema noted Leg (R), no edema noted Pedal (L), no edema noted Pedal (R), no edema noted Generalized Neurologic: motor weakness Skin: normal pigmentation, warm/dry Jamarcus Hendrickson DO May 20, 2019 13:21
[2019-05-20] MEDS ORDERED: Amiodarone 200mg tab ORAL SCH (14:15)
--- NOTE | 2019-05-20 15:20 | Nephrology Progress Note ---
Assessment/Plan Problem List: (1) Renal failure (ARF), acute on chronic (2) Cellulitis of upper extremity (3) A-fib (4) Pneumonia (5) UTI (urinary tract infection) (6) Anemia Assessment - KIMO on CKD - Urinary tract infection. - Anemia- - Dehydration. - Cellulitis of Upper extremity - HTN Plan Hydrate- Anemia kumari- Avoid Nephrotoxics Per ID Allow CHANDA inhibitor to continue as long as renal function does not worsen. PICC line has been removed. Subjective ROS Limited/Unobtainable: No Constitutional: Reports: malaise, weakness Objective Objective Last 24 Hour Vital Signs Date Time Temp Pulse Resp B/P (MAP) Pulse Ox O2 Delivery O2 Flow Rate FiO2 05/20/19 15:01 82 20 100 Nasal Cannula 2.0 28 83 19 97 05/20/19 15:00 83 20 157/70 (99) 97 05/20/19 14:00 84 17 131/59 (83) 95 05/20/19 13:00 86 18 141/75 (97) 97 05/20/19 12:00 Nasal Cannula 2.0 Nasal Cannula 2.0 05/20/19 12:00 97.7 87 14 140/60 (86) 92 05/20/19 11:40 88 05/20/19 11:00 90 18 149/59 (89) 98 05/20/19 10:00 82 17 157/62 (93) 99 05/20/19 09:00 98.1 85 17 109/62 (78) 97 05/20/19 08:20 138/50 05/20/19 08:00 Nasal Cannula 2.0 Nasal Cannula 2.0 05/20/19 08:00 88 15 138/50 (79) 95 05/20/19 07:55 103 05/20/19 07:15 85 23 100 Nasal Cannula 2.0 28 88 21 97 05/20/19 07:13 97 Nasal Cannula 2.0 28 05/20/19 07:00 87 18 121/45 (70) 97 05/20/19 06:00 77 18 142/118 (126) 97 05/20/19 05:00 76 18 150/69 (96) 97 05/20/19 04:00 Nasal Cannula 2.0 Nasal Cannula 2.0 Nasal Cannula 2.0 Nasal Cannula 2.0 05/20/19 04:00 98.6 05/20/19 04:00 93 18 166/66 (99) 96 05/20/19 03:34 78 23 100 Nasal Cannula 2.0 28 75 24 96 05/20/19 03:00 78 18 171/64 (99) 23 05/20/19 02:00 70 18 139/47 (77) 98 05/20/19 01:00 74 18 127/43 (71) 98 05/20/19 00:00 98.6 72 18 127/60 (82) 98 05/20/19 00:00 Nasal Cannula 2.0 Nasal Cannula 2.0 Nasal Cannula 2.0 Nasal Cannula 2.0 05/20/19 00:00 72 05/19/19 23:09 67 22 100 Nasal Cannula 2.0 28 68 23 99 05/19/19 23:00 72 18 127/60 (82) 98 05/19/19 22:00 66 18 132/52 (78) 100 05/19/19 21:00 Nasal Cannula 2.0 Nasal Cannula 2.0 Nasal Cannula 2.0 Nasal Cannula 2.0 05/19/19 21:00 68 18 123/56 (78) 100 05/19/19 20:26 177 136/98 05/19/19 20:00 98.9 166 20 130/100 (110) 92 05/19/19 20:00 166 05/19/19 19:35 100 Nasal Cannula 2.0 28 05/19/19 19:32 130 21 100 Nasal Cannula 2.0 28 173 24 94 05/19/19 16:02 45 19 98 Nasal Cannula 2.0 28 47 26 98 05/19/19 16:00 98.5 48 22 133/47 (75) 100 05/19/19 16:00 54 Intake and Output 05/19/19 05/20/19 19:00 07:00 Intake Total 460 ml 1260 ml Output Total 430 ml 375 ml Balance 30 ml 885 ml Intake Oral 460 ml 360 ml IV Total 900 ml Output Urine Total 430 ml 375 ml # Bowel Movements 4 Laboratory Tests 05/20/19 05:50: White Blood Count 6.2, Red Blood Count 3.28L, Hemoglobin 10.1L, Hematocrit 29.5L , Mean Corpuscular Volume 90, Mean Corpuscular Hemoglobin 30.8, Mean Corpuscular Hemoglobin Concent 34.3, Red Cell Distribution Width 14.8, Platelet Count 204, Mean Platelet Volume 4.7L, Neutrophils (%) (Auto) 80.6H, Lymphocytes (%) (Auto) 6.6L, Monocytes (%) (Auto) 5.9, Eosinophils (%) (Auto) 5.6H, Basophils (%) (Auto) 1.3, Sodium Level 139, Potassium Level 3.6, Chloride Level 108H, Carbon Dioxide Level 21, Anion Gap 11, Blood Urea Nitrogen 28H, Creatinine 2.0H, Estimat Glomerular Filtration Rate , Glucose Level 97, Calcium Level 7.2L 05/20/19 08:25: Random Vancomycin Level 18.7 Height (Feet): 5 Height (Inches): 7.00 Weight (Pounds): 166 Cardiovascular: arrhythmia Respiratory/Chest: decreased breath sounds Abdomen: distended Reinier Mera MD May 20, 2019 15:20
--- NOTE | 2019-05-20 15:33 | Diagnostic Imaging Report ---
Indication: Chest pain Technique: Continuous helical transaxial imaging of the chest was obtained from the thoracic inlet to the upper abdomen. No intravenous contrast was administered. Coronal 2-D reformats were also obtained. Total Dose length Product (DLP): 847.[address] Dose Index Volume (CTDIvol): 16.5 mGy Comparison: none Findings: Moderate bilateral pleural effusions are demonstrated. A patchy infiltrates are present within the upper lobes much worse on the right side characterized by both linear and groundglass opacities and some areas of airspace disease. Findings may be due to pneumonia. Correlate clinically. Trace pericardial fluid noted. Mildly distended esophagus demonstrated with the fluid noted in the lumen. Hiatal hernia is present. There are gallstones present. Anasarca noted. Spinal osteophytes noted throughout the thoracic spine. Mild calcification of aorta demonstrated. IMPRESSION: Bilateral upper lobe infiltrates worse on the right. Consider pneumonia. Bilateral pleural effusions moderate in size Other incidental findings as above The CT scanner at [facility] is accredited by the [employer] and the scans are performed using dose optimization techniques as appropriate to a performed exam including Automatic Exposure control.
--- NOTE | 2019-05-20 16:50 | Pulmonology Progress Note ---
Assessment/Plan Assessment/Plan IMPRESSION AND PLAN: 1. Pneumonia. Bilateral upper lobe. 2. Cellulitis. 3. History of COPD. 4. Hypertension. 5. Afib with RVR DISCUSSION: 1. No longer in a fib after amiodarone; to transfer out of ICU 2. Agree with present management and care. 3. Continue medications and HHN 4. Reviewed Chest CT. 5. I will follow as manager internal. Arsen Whittaker M.D. Subjective Interval Events: Albuterol causing tachycardia Constitutional: Reports: no symptoms HEENT: Repors: no symptoms Respiratory: Reports: no symptoms Cardiovascular: Reports: palpitations Gastrointestinal/Abdominal: Reports: no symptoms Genitourinary: Reports: no symptoms Allergies: Coded Allergies: No Known Allergies (Unverified , 05/18/19) Objective Last 24 Hour Vital Signs Date Time Temp Pulse Resp B/P (MAP) Pulse Ox O2 Delivery O2 Flow Rate FiO2 05/20/19 16:00 Nasal Cannula 2.0 Nasal Cannula 2.0 05/20/19 16:00 98.1 87 16 156/66 (96) 96 05/20/19 15:44 90 05/20/19 15:01 82 20 100 Nasal Cannula 2.0 28 83 19 97 05/20/19 15:00 83 20 157/70 (99) 97 05/20/19 14:00 84 17 131/59 (83) 95 05/20/19 13:00 86 18 141/75 (97) 97 05/20/19 12:00 Nasal Cannula 2.0 Nasal Cannula 2.0 05/20/19 12:00 97.7 87 14 140/60 (86) 92 05/20/19 11:40 88 05/20/19 11:00 90 18 149/59 (89) 98 05/20/19 10:00 82 17 157/62 (93) 99 05/20/19 09:00 98.1 85 17 109/62 (78) 97 05/20/19 08:20 138/50 05/20/19 08:00 Nasal Cannula 2.0 Nasal Cannula 2.0 05/20/19 08:00 88 15 138/50 (79) 95 05/20/19 07:55 103 05/20/19 07:15 85 23 100 Nasal Cannula 2.0 28 88 21 97 05/20/19 07:13 97 Nasal Cannula 2.0 28 05/20/19 07:00 87 18 121/45 (70) 97 05/20/19 06:00 77 18 142/118 (126) 97 05/20/19 05:00 76 18 150/69 (96) 97 05/20/19 04:00 Nasal Cannula 2.0 Nasal Cannula 2.0 Nasal Cannula 2.0 Nasal Cannula 2.0 05/20/19 04:00 98.6 05/20/19 04:00 93 18 166/66 (99) 96 05/20/19 03:34 78 23 100 Nasal Cannula 2.0 28 75 24 96 05/20/19 03:00 78 18 171/64 (99) 23 05/20/19 02:00 70 18 139/47 (77) 98 05/20/19 01:00 74 18 127/43 (71) 98 05/20/19 00:00 98.6 72 18 127/60 (82) 98 05/20/19 00:00 Nasal Cannula 2.0 Nasal Cannula 2.0 Nasal Cannula 2.0 Nasal Cannula 2.0 05/20/19 00:00 72 05/19/19 23:09 67 22 100 Nasal Cannula 2.0 28 68 23 99 05/19/19 23:00 72 18 127/60 (82) 98 05/19/19 22:00 66 18 132/52 (78) 100 05/19/19 21:00 Nasal Cannula 2.0 Nasal Cannula 2.0 Nasal Cannula 2.0 Nasal Cannula 2.0 05/19/19 21:00 68 18 123/56 (78) 100 05/19/19 20:26 177 136/98 05/19/19 20:00 98.9 166 20 130/100 (110) 92 05/19/19 20:00 166 05/19/19 19:35 100 Nasal Cannula 2.0 28 05/19/19 19:32 130 21 100 Nasal Cannula 2.0 28 173 24 94 Intake and Output 05/19/19 05/20/19 19:00 07:00 Intake Total 460 ml 1260 ml Output Total 430 ml 375 ml Balance 30 ml 885 ml Intake Oral 460 ml 360 ml IV Total 900 ml Output Urine Total 430 ml 375 ml # Bowel Movements 4 General Appearance: no acute distress HEENT: normocephalic Respiratory/Chest: chest wall non-tender, lungs clear Cardiovascular: normal peripheral pulses, regularly irregular Abdomen: normal bowel sounds Microbiology Date/Time Source Procedure Growth Status 05/18/19 00:38 Blood Blood Culture - Preliminary NO GROWTH AFTER 48 HOURS Resulted 05/18/19 00:15 Blood Blood Culture - Preliminary NO GROWTH AFTER 48 HOURS Resulted 05/18/19 00:38 Nasal Nares MRSA Culture - Final NO METHICILLIN RESISTANT STAPH AUREUS... Complete 05/18/19 11:10 Catheter Site Catheter Tip Culture - Preliminary NO GROWTH AFTER 24 HOURS Resulted 05/18/19 00:38 Rectum VRE Culture - Final Enterococcus Faecalis - Vre Complete Laboratory Tests 05/20/19 05:50: White Blood Count 6.2, Red Blood Count 3.28L, Hemoglobin 10.1L, Hematocrit 29.5L , Mean Corpuscular Volume 90, Mean Corpuscular Hemoglobin 30.8, Mean Corpuscular Hemoglobin Concent 34.3, Red Cell Distribution Width 14.8, Platelet Count 204, Mean Platelet Volume 4.7L, Neutrophils (%) (Auto) 80.6H, Lymphocytes (%) (Auto) 6.6L, Monocytes (%) (Auto) 5.9, Eosinophils (%) (Auto) 5.6H, Basophils (%) (Auto) 1.3, Sodium Level 139, Potassium Level 3.6, Chloride Level 108H, Carbon Dioxide Level 21, Anion Gap 11, Blood Urea Nitrogen 28H, Creatinine 2.0H, Estimat Glomerular Filtration Rate , Glucose Level 97, Calcium Level 7.2L 05/20/19 08:25: Random Vancomycin Level 18.7 Current Medications Medications (Trade) Dose Ordered Sig/Phillip Route PRN Reason Start Time Stop Time Status Last Admin Dose Admin Acetaminophen (Tylenol) 500 mg Q4H PRN ORAL Mild Pain/Temp > 100.5 05/19/19 08:00 06/17/19 07:59 Acetaminophen/ Hydrocodone Bitart (Emmett 5/325) 1 tab Q6H PRN ORAL Severe Pain (Pain Scale 7-10) 05/19/19 08:00 05/25/19 07:59 05/20/19 03:30 Amiodarone HCl (Cordarone) 200 mg DAILY ORAL 05/21/19 09:00 06/20/19 08:59 Amiodarone HCl 900 mg/Dextrose 500 ml @ 0 mls/hr Q24H IV 05/19/19 21:45 05/20/19 21:44 Apixaban (Eliquis) 2.5 mg BID ORAL 05/19/19 09:00 06/17/19 17:59 05/20/19 08:20 Docusate Sodium (Colace) 100 mg TID ORAL 05/20/19 18:00 06/17/19 17:59 Finasteride (Proscar) 5 mg DAILY ORAL 05/19/19 09:00 06/17/19 10:14 05/20/19 08:20 Ipratropium [place] (Atrovent) 500 mcg Q4HRT HHN 05/20/19 11:40 05/25/19 11:39 05/20/19 15:01 Lisinopril (ZestriL) 2.5 mg DAILY ORAL 05/19/19 09:00 06/17/19 10:14 05/20/19 08:20 Sodium Chloride 1,000 ml @ 75 mls/hr [id number] IV 05/19/19 08:00 06/17/19 10:14 05/20/19 05:21 Tamsulosin HCl (Flomax) 0.4 mg BEDTIME ORAL 05/19/19 21:00 06/17/19 20:59 05/19/19 20:26 Vancomycin HCl (Vanco rx to dose) 1 ea DAILY PRN MISC Per rx protocol 05/19/19 09:00 06/17/19 09:44 Arsen Whittaker MD May 20, 2019 16:50
[2019-05-20] MEDS ORDERED: Docusate 100mg cap ORAL SCH (18:00)
--- NOTE | 2019-05-20 20:03 | Cardiology Progress Note ---
Assessment/Plan Assessment/Plan 1. Atrial fibrillation with rapid ventricular response, in and out of atrial fibrillation, was started on amiodarone gtt, now in sinus rhythm, switch to PO amiodarone. 2. History of hypertension, will start metoprolol. 3. History of renal failure, DC lisinopril. Subjective Subjective Converted to sinus rhythm at rate of 90. Objective Last 24 Hour Vital Signs Date Time Temp Pulse Resp B/P (MAP) Pulse Ox O2 Delivery O2 Flow Rate FiO2 05/20/19 19:00 90 20 158/69 (98) 94 05/20/19 18:27 97 174/88 05/20/19 18:00 97 22 174/88 (116) 98 05/20/19 17:00 95 19 166/71 (102) 96 05/20/19 16:00 Nasal Cannula 2.0 Nasal Cannula 2.0 05/20/19 16:00 98.1 87 16 156/66 (96) 96 05/20/19 15:44 90 05/20/19 15:01 82 20 100 Nasal Cannula 2.0 28 83 19 97 05/20/19 15:00 83 20 157/70 (99) 97 05/20/19 14:00 84 17 131/59 (83) 95 05/20/19 13:00 86 18 141/75 (97) 97 05/20/19 12:00 Nasal Cannula 2.0 Nasal Cannula 2.0 05/20/19 12:00 97.7 87 14 140/60 (86) 92 05/20/19 11:40 88 05/20/19 11:00 90 18 149/59 (89) 98 05/20/19 10:00 82 17 157/62 (93) 99 05/20/19 09:00 98.1 85 17 109/62 (78) 97 05/20/19 08:20 138/50 05/20/19 08:00 Nasal Cannula 2.0 Nasal Cannula 2.0 05/20/19 08:00 88 15 138/50 (79) 95 05/20/19 07:55 103 05/20/19 07:15 85 23 100 Nasal Cannula 2.0 28 88 21 97 05/20/19 07:13 97 Nasal Cannula 2.0 28 05/20/19 07:00 87 18 121/45 (70) 97 05/20/19 06:00 77 18 142/118 (126) 97 05/20/19 05:00 76 18 150/69 (96) 97 05/20/19 04:00 Nasal Cannula 2.0 Nasal Cannula 2.0 Nasal Cannula 2.0 Nasal Cannula 2.0 05/20/19 04:00 98.6 05/20/19 04:00 93 18 166/66 (99) 96 05/20/19 03:34 78 23 100 Nasal Cannula 2.0 28 75 24 96 05/20/19 03:00 78 18 171/64 (99) 23 05/20/19 02:00 70 18 139/47 (77) 98 05/20/19 01:00 74 18 127/43 (71) 98 05/20/19 00:00 98.6 72 18 127/60 (82) 98 05/20/19 00:00 Nasal Cannula 2.0 Nasal Cannula 2.0 Nasal Cannula 2.0 Nasal Cannula 2.0 05/20/19 00:00 72 05/19/19 23:09 67 22 100 Nasal Cannula 2.0 28 68 23 99 05/19/19 23:00 72 18 127/60 (82) 98 05/19/19 22:00 66 18 132/52 (78) 100 05/19/19 21:00 Nasal Cannula 2.0 Nasal Cannula 2.0 Nasal Cannula 2.0 Nasal Cannula 2.0 05/19/19 21:00 68 18 123/56 (78) 100 05/19/19 20:26 177 136/98 Intake and Output 05/19/19 05/20/19 19:00 07:00 Intake Total 460 ml 1260 ml Output Total 430 ml 375 ml Balance 30 ml 885 ml Intake Oral 460 ml 360 ml IV Total 900 ml Output Urine Total 430 ml 375 ml # Bowel Movements 4 Laboratory Tests Test 05/20/19 05:50 05/20/19 08:25 05/20/19 17:30 White Blood Count 6.2 K/UL (4.8-10.8) Red Blood Count 3.28 M/UL (4.70-6.10) L Hemoglobin 10.1 G/DL (14.2-18.0) L Hematocrit 29.5 % (42.0-52.0) L Mean Corpuscular Volume 90 FL (80-99) Mean Corpuscular Hemoglobin 30.8 PG (27.0-31.0) Mean Corpuscular Hemoglobin Concent 34.3 G/DL (32.0-36.0) Red Cell Distribution Width 14.8 % (11.6-14.8) Platelet Count 204 K/UL (150-450) Mean Platelet Volume 4.7 FL (6.5-10.1) L Neutrophils (%) (Auto) 80.6 % (45.0-75.0) H Lymphocytes (%) (Auto) 6.6 % (20.0-45.0) L Monocytes (%) (Auto) 5.9 % (1.0-10.0) Eosinophils (%) (Auto) 5.6 % (0.0-3.0) H Basophils (%) (Auto) 1.3 % (0.0-2.0) Sodium Level 139 MMOL/L (136-145) Potassium Level 3.6 MMOL/L (3.5-5.1) Chloride Level 108 MMOL/L (98-107) H Carbon Dioxide Level 21 MMOL/L (21-32) Anion Gap 11 mmol/L (5-15) Blood Urea Nitrogen 28 mg/dL (7-18) H Creatinine 2.0 MG/DL (0.55-1.30) H Estimat Glomerular Filtration Rate mL/min (>60) Glucose Level 97 MG/DL (74-106) Calcium Level 7.2 MG/DL (8.5-10.1) L Random Vancomycin Level 18.7 ug/mL Urine Random Sodium 43 mmol/L (20-110) Microbiology Date/Time Source Procedure Growth Status 05/18/19 00:38 Blood Blood Culture - Preliminary NO GROWTH AFTER 48 HOURS Resulted 05/18/19 00:15 Blood Blood Culture - Preliminary NO GROWTH AFTER 48 HOURS Resulted 05/18/19 00:38 Nasal Nares MRSA Culture - Final NO METHICILLIN RESISTANT STAPH AUREUS... Complete 05/18/19 11:10 Catheter Site Catheter Tip Culture - Preliminary NO GROWTH AFTER 24 HOURS Resulted 05/18/19 00:38 Rectum VRE Culture - Final Enterococcus Faecalis - Vre Complete Del Garcia MD May 20, 2019 20:03
[2019-05-20] MEDS ORDERED: HYDROcodone/Acetamin 5/325 tab ORAL PRN (20:30)
[2019-05-20] MEDS ORDERED: Acetaminophen 500mg (ES) tab ORAL PRN (20:30)
[2019-05-20] MEDS: Tamsulosin 0.4mg cap ORAL SCH (21:39)
[2019-05-21] VITALS: BP 155/91
[2019-05-21] MEDS: Ipratropium 0.02% Inh Soln 2.5ml UD HHN PRN ×3 (00:45→10:45)
[2019-05-21 04:00] VITALS: BP 156/65
[2019-05-21 07:34] LABS: HEMATOCRIT 30.6 % (42.0-52.0); HEMOGLOBIN 10.1 G/DL (14.2-18.0); MEAN CORPUSCULAR VOLUME 89 FL (80-99); PLATELET COUNT 257 K/UL (150-450); RED BLOOD COUNT 3.45 M/UL (4.70-6.10); WHITE BLOOD COUNT 8.2 K/UL (4.8-10.8)
[2019-05-21 08:00] VITALS: BP 157/57
[2019-05-21 08:05] LABS: ALANINE AMINOTRANSFERASE 26 U/L (12-78); ALBUMIN 1.8 G/DL (3.4-5.0); ALBUMIN/GLOBULIN RATIO 0.5 (1.0-2.7); ALKALINE PHOSPHATASE 85 U/L (46-116); ANION GAP 9 mmol/L (5-15); ASPARTATE AMINO TRANSFERASE 25 U/L (15-37); BILIRUBIN,TOTAL 0.5 MG/DL (0.2-1.0); BLOOD UREA NITROGEN 29 mg/dL (7-18); CALCIUM 7.5 MG/DL (8.5-10.1); CARBON DIOXIDE 22 MMOL/L (21-32); CHLORIDE 107 MMOL/L (98-107); CHOLESTEROL 238 MG/DL (< 200); FERRITIN 603 NG/ML (8-388); GAMMA GLUTAMYL TRANSPEPTIDASE 47 U/L (5-85); HDL CHOLESTEROL 36 MG/DL (40-60); PHOSPHORUS 4.1 MG/DL (2.5-4.9); POTASSIUM 4.1 MMOL/L (3.5-5.1); SODIUM 138 MMOL/L (136-145); TRIGLYCERIDES 145 MG/DL (30-150)
[2019-05-21] MEDS: Eliquis 2.5mg tablet ORAL SCH ×2 (08:40→17:21)
[2019-05-21] MEDS ORDERED: Docusate 100mg cap ORAL SCH (09:00)
[2019-05-21] MEDS ORDERED: Lisinopril 2.5mg tab ORAL SCH (09:00)
[2019-05-21] MEDS ORDERED: Amiodarone 200mg tab ORAL SCH (09:00)
--- NOTE | 2019-05-21 09:38 | Pulmonology Progress Note ---
Assessment/Plan Assessment/Plan IMPRESSION AND PLAN: 1. Pneumonia. Bilateral upper lobe. 2. Cellulitis. 3. History of COPD. 4. Hypertension. 5. Afib with RVR DISCUSSION: 1. No longer in a fib after amiodarone; transferred out of ICU 2. Agree with present management and care. 3. Continue medications and HHN 4. Reviewed Chest CT. 5. 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 Arsen Whittaker M.D. Subjective Interval Events: Transferred out of ICU Constitutional: Reports: no symptoms HEENT: Repors: no symptoms Respiratory: Reports: dry cough Cardiovascular: Reports: no symptoms Gastrointestinal/Abdominal: Reports: no symptoms Allergies: Coded Allergies: No Known Allergies (Unverified , 05/18/19) Objective Last 24 Hour Vital Signs Date Time Temp Pulse Resp B/P (MAP) Pulse Ox O2 Delivery O2 Flow Rate FiO2 05/21/19 08:47 Venturi Mask 8.0 05/21/19 08:40 63 157/57 05/21/19 08:39 157/57 05/21/19 08:39 63 157/57 05/21/19 08:06 96 Nasal Cannula 2.0 28 05/21/19 08:00 96.6 63 19 157/57 (90) 95 05/21/19 07:23 64 05/21/19 04:55 65 27 97 Venturi Mask 8.0 40 62 26 94 05/21/19 04:00 97.7 59 20 156/65 (95) 94 05/21/19 04:00 60 05/21/19 00:59 96 Nasal Cannula 2.0 28 05/21/19 00:52 79 05/21/19 00:45 100 26 96 Nasal Cannula 2.0 28 92 24 97 05/21/19 00:00 98.1 58 22 155/91 (112) 90 05/21/19 00:00 76 05/20/19 21:40 93 177/73 05/20/19 21:00 Nasal Cannula 2.0 Nasal Cannula 2.0 05/20/19 20:00 97.3 93 20 177/73 (107) 95 05/20/19 19:00 90 20 158/69 (98) 94 05/20/19 18:27 97 174/88 05/20/19 18:00 97 22 174/88 (116) 98 05/20/19 17:00 95 19 166/71 (102) 96 05/20/19 16:00 Nasal Cannula 2.0 Nasal Cannula 2.0 05/20/19 16:00 98.1 87 16 156/66 (96) 96 05/20/19 15:44 90 05/20/19 15:01 82 20 100 Nasal Cannula 2.0 28 83 19 97 05/20/19 15:00 83 20 157/70 (99) 97 05/20/19 14:00 84 17 131/59 (83) 95 05/20/19 13:00 86 18 141/75 (97) 97 05/20/19 12:00 Nasal Cannula 2.0 Nasal Cannula 2.0 05/20/19 12:00 97.7 87 14 140/60 (86) 92 05/20/19 11:40 88 05/20/19 11:00 90 18 149/59 (89) 98 05/20/19 10:00 82 17 157/62 (93) 99 Intake and Output 05/20/19 05/21/19 19:00 07:00 Intake Total 1595.000 ml 150 ml Output Total 575 ml 700 ml Balance 1020.000 ml -550 ml Intake Oral 420 ml 150 ml IV Total 1175.000 ml Output Urine Total 575 ml 700 ml General Appearance: no acute distress HEENT: normocephalic Respiratory/Chest: chest wall non-tender, lungs clear Cardiovascular: normal peripheral pulses, regularly irregular Abdomen: normal bowel sounds Microbiology Date/Time Source Procedure Growth Status 05/18/19 11:10 Catheter Site Catheter Tip Culture - Preliminary NO GROWTH AFTER 24 HOURS Resulted Laboratory Tests 05/20/19 17:30: Urine Random Sodium 43 05/21/19 01:30: Urine Eosinophils None seen 05/21/19 07:05: White Blood Count 8.2, Red Blood Count 3.45L, Hemoglobin 10.1L, Hematocrit 30.6L , Mean Corpuscular Volume 89, Mean Corpuscular Hemoglobin 29.4, Mean Corpuscular Hemoglobin Concent 33.1, Red Cell Distribution Width 15.0H, Platelet Count 257, Mean Platelet Volume 4.5L, Neutrophils (%) (Auto) , Lymphocytes (%) (Auto) , Monocytes (%) (Auto) , Eosinophils (%) (Auto) , Basophils (%) (Auto) , Differential Total Cells Counted 100, Neutrophils % ( Manual) 92H, Lymphocytes % (Manual) 5L, Monocytes % (Manual) 3, Eosinophils % ( Manual) 0, Basophils % (Manual) 0, Band Neutrophils 0, Platelet Estimate Adequate, Platelet Morphology Normal, Anisocytosis 1+, Sodium Level 138, Potassium Level 4.1, Chloride Level 107, Carbon Dioxide Level 22, Anion Gap 9, Blood Urea Nitrogen 29H, Creatinine 2.0H, Estimat Glomerular Filtration Rate , Glucose Level 126H, Hemoglobin A1c 5.7, Uric Acid 5.4, Calcium Level 7.5L, Phosphorus Level 4.1, Magnesium Level 1.8, Ferritin 603H, Total Bilirubin 0.5, Gamma Glutamyl Transpeptidase 47, Aspartate Amino Transf (AST/SGOT) 25, Alanine Aminotransferase (ALT/SGPT) 26, Alkaline Phosphatase 85, C-Reactive Protein, Quantitative 6.5H, Pro-B-Type Natriuretic Peptide 7986H, Total Protein 5.5L, Albumin 1.8L, Globulin 3.7, Albumin/Globulin Ratio 0.5L, Triglycerides Level 145 , Cholesterol Level 238H, LDL Cholesterol 156H, HDL Cholesterol 36L, Cholesterol /HDL Ratio 6.6H, Vitamin B12 Level 401, Folate 12.6, Thyroid Stimulating Hormone (TSH) 16.397H Current Medications Medications (Trade) Dose Ordered Sig/Phillip Route PRN Reason Start Time Stop Time Status Last Admin Dose Admin Acetaminophen (Tylenol) 500 mg Q4H PRN ORAL Mild Pain/Temp > 100.5 05/20/19 20:30 06/19/19 20:29 Acetaminophen/ Hydrocodone Bitart ([place] 5/325) 1 tab Q6H PRN ORAL For Pain 05/20/19 20:30 05/27/19 20:29 Amlodipine Besylate (Norvasc) 5 mg DAILY ORAL 05/21/19 09:00 06/20/19 08:59 05/21/19 08:40 Apixaban (Eliquis) 2.5 mg BID ORAL 05/21/19 09:00 06/20/19 08:59 05/21/19 08:40 Docusate Sodium (Colace) 100 mg TWICE A DAY ORAL 05/21/19 09:00 06/20/19 08:59 05/21/19 08:39 Finasteride (Proscar) 5 mg DAILY ORAL 05/21/19 09:00 06/20/19 08:59 05/21/19 08:39 Ipratropium [place] (Atrovent) 500 mcg Q4H PRN HHN Shortness of Breath 05/20/19 20:30 05/25/19 20:29 05/21/19 04:55 Lisinopril (ZestriL) 2.5 mg DAILY ORAL 05/21/19 09:00 06/20/19 08:59 05/21/19 08:39 Metoprolol Tartrate (Lopressor) 25 mg Q12HR ORAL 05/20/19 21:00 06/19/19 20:59 05/21/19 08:39 Sodium Chloride 1,000 ml @ 75 mls/hr [id number] IV 05/20/19 20:30 06/19/19 20:29 05/21/19 08:40 Tamsulosin HCl (Flomax) 0.4 mg BEDTIME ORAL 05/20/19 21:00 06/19/19 20:59 05/20/19 21:39 Vancomycin HCl (Vanco rx to dose) 1 ea DAILY PRN MISC Per rx protocol 05/20/19 20:30 06/19/19 20:29 Arsen Whittaker MD May 21, 2019 09:38
[2019-05-21 12:00] VITALS: BP 150/61
--- NOTE | 2019-05-21 12:00 | General Progress Note ---
Assessment/Plan Problem List: (1) A-fib ICD Codes: I48.91 - Unspecified atrial fibrillation SNOMED: 84002254 (2) Cellulitis of upper extremity ICD Codes: L03.119 - Cellulitis of unspecified part of limb SNOMED: 350844076 Qualifiers: Qualified Codes: L03.113 - Cellulitis of right upper limb (3) Cellulitis ICD Codes: L03.90 - Cellulitis, unspecified SNOMED: 540269411 (4) SOB (shortness of breath) ICD Codes: R06.02 - Shortness of breath SNOMED: 090900649 (5) Renal insufficiency ICD Codes: N28.9 - Disorder of kidney and ureter, unspecified SNOMED: 420806475, 891071200 (6) Pneumonia ICD Codes: J18.9 - Pneumonia, unspecified organism SNOMED: 494367809 Qualifiers: Qualified Codes: J18.9 - Pneumonia, unspecified organism Status: unchanged Assessment/Plan: o2 pulm tx abx wound care cardio f/u cbc bmp am Subjective Allergies: Coded Allergies: No Known Allergies (Unverified , 05/18/19) All Systems: reviewed and negative except above Subjective pulm tx sleepy Objective Last 24 Hour Vital Signs Date Time Temp Pulse Resp B/P (MAP) Pulse Ox O2 Delivery O2 Flow Rate FiO2 05/21/19 08:47 Venturi Mask 8.0 05/21/19 08:40 63 157/57 05/21/19 08:39 157/57 05/21/19 08:39 63 157/57 05/21/19 08:06 96 Nasal Cannula 2.0 28 05/21/19 08:00 96.6 63 19 157/57 (90) 95 05/21/19 07:23 64 05/21/19 04:55 65 27 97 Venturi Mask 8.0 40 62 26 94 05/21/19 04:00 97.7 59 20 156/65 (95) 94 05/21/19 04:00 60 05/21/19 00:59 96 Nasal Cannula 2.0 28 05/21/19 00:52 79 05/21/19 00:45 100 26 96 Nasal Cannula 2.0 28 92 24 97 05/21/19 00:00 98.1 58 22 155/91 (112) 90 05/21/19 00:00 76 05/20/19 21:40 93 177/73 05/20/19 21:00 Nasal Cannula 2.0 Nasal Cannula 2.0 05/20/19 20:00 97.3 93 20 177/73 (107) 95 05/20/19 19:00 90 20 158/69 (98) 94 05/20/19 18:27 97 174/88 05/20/19 18:00 97 22 174/88 (116) 98 05/20/19 17:00 95 19 166/71 (102) 96 05/20/19 16:00 Nasal Cannula 2.0 Nasal Cannula 2.0 05/20/19 16:00 98.1 87 16 156/66 (96) 96 05/20/19 15:44 90 05/20/19 15:01 82 20 100 Nasal Cannula 2.0 28 83 19 97 05/20/19 15:00 83 20 157/70 (99) 97 05/20/19 14:00 84 17 131/59 (83) 95 05/20/19 13:00 86 18 141/75 (97) 97 05/20/19 12:00 Nasal Cannula 2.0 Nasal Cannula 2.0 05/20/19 12:00 97.7 87 14 140/60 (86) 92 Intake and Output 05/20/19 05/21/19 19:00 07:00 Intake Total 1595.000 ml 150 ml Output Total 575 ml 700 ml Balance 1020.000 ml -550 ml Intake Oral 420 ml 150 ml IV Total 1175.000 ml Output Urine Total 575 ml 700 ml Laboratory Tests 05/20/19 17:30: Urine Random Sodium 43 05/21/19 01:30: Urine Eosinophils None seen 05/21/19 07:05: White Blood Count 8.2, Red Blood Count 3.45L, Hemoglobin 10.1L, Hematocrit 30.6L , Mean Corpuscular Volume 89, Mean Corpuscular Hemoglobin 29.4, Mean Corpuscular Hemoglobin Concent 33.1, Red Cell Distribution Width 15.0H, Platelet Count 257, Mean Platelet Volume 4.5L, Neutrophils (%) (Auto) , Lymphocytes (%) (Auto) , Monocytes (%) (Auto) , Eosinophils (%) (Auto) , Basophils (%) (Auto) , Differential Total Cells Counted 100, Neutrophils % ( Manual) 92H, Lymphocytes % (Manual) 5L, Monocytes % (Manual) 3, Eosinophils % ( Manual) 0, Basophils % (Manual) 0, Band Neutrophils 0, Platelet Estimate Adequate, Platelet Morphology Normal, Anisocytosis 1+, Sodium Level 138, Potassium Level 4.1, Chloride Level 107, Carbon Dioxide Level 22, Anion Gap 9, Blood Urea Nitrogen 29H, Creatinine 2.0H, Estimat Glomerular Filtration Rate , Glucose Level 126H, Hemoglobin A1c 5.7, Uric Acid 5.4, Calcium Level 7.5L, Phosphorus Level 4.1, Magnesium Level 1.8, Ferritin 603H, Total Bilirubin 0.5, Gamma Glutamyl Transpeptidase 47, Aspartate Amino Transf (AST/SGOT) 25, Alanine Aminotransferase (ALT/SGPT) 26, Alkaline Phosphatase 85, C-Reactive Protein, Quantitative 6.5H, Pro-B-Type Natriuretic Peptide 7986H, Total Protein 5.5L, Albumin 1.8L, Globulin 3.7, Albumin/Globulin Ratio 0.5L, Triglycerides Level 145 , Cholesterol Level 238H, LDL Cholesterol 156H, HDL Cholesterol 36L, Cholesterol /HDL Ratio 6.6H, Vitamin B12 Level 401, Folate 12.6, Thyroid Stimulating Hormone (TSH) 16.397H Height (Feet): 5 Height (Inches): 7.00 Weight (Pounds): 172 General Appearance: lethargic EENT: normal ENT inspection Neck: normal alignment Cardiovascular: normal peripheral pulses, normal rate, regular rhythm Respiratory/Chest: chest wall non-tender, lungs clear, normal breath sounds Abdomen: normal bowel sounds, non tender, soft Extremities: normal inspection Edema: no edema noted Arm (L), no edema noted Arm (R), no edema noted Leg (L), no edema noted Leg (R), no edema noted Pedal (L), no edema noted Pedal (R), no edema noted Generalized Neurologic: motor weakness Skin: normal pigmentation, warm/dry Jamarcus Hendrickson DO May 21, 2019 12:00
--- NOTE | 2019-05-21 13:25 | Nephrology Progress Note ---
Assessment/Plan Problem List: (1) Renal failure (ARF), acute on chronic (2) Cellulitis of upper extremity (3) A-fib (4) Pneumonia (5) UTI (urinary tract infection) (6) Anemia (7) Hypothyroidism Assessment - KIMO on CKD - Urinary tract infection. - Anemia- - Dehydration. - Cellulitis of Upper extremity - HTN Plan Hydrate- Anemia kumari- Avoid Nephrotoxics Per ID Allow CHANDA inhibitor to continue as long as renal function does not worsen. PICC line has been removed. Subjective ROS Limited/Unobtainable: No Constitutional: Reports: malaise, weakness Objective Objective Last 24 Hour Vital Signs Date Time Temp Pulse Resp B/P (MAP) Pulse Ox O2 Delivery O2 Flow Rate FiO2 05/21/19 12:00 96.8 68 20 150/61 (90) 97 05/21/19 08:47 Venturi Mask 8.0 05/21/19 08:40 63 157/57 05/21/19 08:39 157/57 05/21/19 08:39 63 157/57 05/21/19 08:06 96 Nasal Cannula 2.0 28 05/21/19 08:00 96.6 63 19 157/57 (90) 95 05/21/19 07:23 64 05/21/19 04:55 65 27 97 Venturi Mask 8.0 40 62 26 94 05/21/19 04:00 97.7 59 20 156/65 (95) 94 05/21/19 04:00 60 05/21/19 00:59 96 Nasal Cannula 2.0 28 05/21/19 00:52 79 05/21/19 00:45 100 26 96 Nasal Cannula 2.0 28 92 24 97 05/21/19 00:00 98.1 58 22 155/91 (112) 90 05/21/19 00:00 76 05/20/19 21:40 93 177/73 05/20/19 21:00 Nasal Cannula 2.0 Nasal Cannula 2.0 05/20/19 20:00 97.3 93 20 177/73 (107) 95 05/20/19 19:00 90 20 158/69 (98) 94 05/20/19 18:27 97 174/88 05/20/19 18:00 97 22 174/88 (116) 98 05/20/19 17:00 95 19 166/71 (102) 96 05/20/19 16:00 Nasal Cannula 2.0 Nasal Cannula 2.0 05/20/19 16:00 98.1 87 16 156/66 (96) 96 05/20/19 15:44 90 05/20/19 15:01 82 20 100 Nasal Cannula 2.0 28 83 19 97 05/20/19 15:00 83 20 157/70 (99) 97 05/20/19 14:00 84 17 131/59 (83) 95 Intake and Output 05/20/19 05/21/19 19:00 07:00 Intake Total 1595.000 ml 150 ml Output Total 575 ml 700 ml Balance 1020.000 ml -550 ml Intake Oral 420 ml 150 ml IV Total 1175.000 ml Output Urine Total 575 ml 700 ml Laboratory Tests 05/20/19 17:30: Urine Random Sodium 43 05/21/19 01:30: Urine Eosinophils None seen 05/21/19 07:05: White Blood Count 8.2, Red Blood Count 3.45L, Hemoglobin 10.1L, Hematocrit 30.6L , Mean Corpuscular Volume 89, Mean Corpuscular Hemoglobin 29.4, Mean Corpuscular Hemoglobin Concent 33.1, Red Cell Distribution Width 15.0H, Platelet Count 257, Mean Platelet Volume 4.5L, Neutrophils (%) (Auto) , Lymphocytes (%) (Auto) , Monocytes (%) (Auto) , Eosinophils (%) (Auto) , Basophils (%) (Auto) , Differential Total Cells Counted 100, Neutrophils % ( Manual) 92H, Lymphocytes % (Manual) 5L, Monocytes % (Manual) 3, Eosinophils % ( Manual) 0, Basophils % (Manual) 0, Band Neutrophils 0, Platelet Estimate Adequate, Platelet Morphology Normal, Anisocytosis 1+, Sodium Level 138, Potassium Level 4.1, Chloride Level 107, Carbon Dioxide Level 22, Anion Gap 9, Blood Urea Nitrogen 29H, Creatinine 2.0H, Estimat Glomerular Filtration Rate , Glucose Level 126H, Hemoglobin A1c 5.7, Uric Acid 5.4, Calcium Level 7.5L, Phosphorus Level 4.1, Magnesium Level 1.8, Ferritin 603H, Total Bilirubin 0.5, Gamma Glutamyl Transpeptidase 47, Aspartate Amino Transf (AST/SGOT) 25, Alanine Aminotransferase (ALT/SGPT) 26, Alkaline Phosphatase 85, C-Reactive Protein, Quantitative 6.5H, Pro-B-Type Natriuretic Peptide 7986H, Total Protein 5.5L, Albumin 1.8L, Globulin 3.7, Albumin/Globulin Ratio 0.5L, Triglycerides Level 145 , Cholesterol Level 238H, LDL Cholesterol 156H, HDL Cholesterol 36L, Cholesterol /HDL Ratio 6.6H, Vitamin B12 Level 401, Folate 12.6, Thyroid Stimulating Hormone (TSH) 16.397H Height (Feet): 5 Height (Inches): 7.00 Weight (Pounds): 172 General Appearance: no apparent distress, lethargic Cardiovascular: normal rate Respiratory/Chest: decreased breath sounds Abdomen: distended Reinier Mera MD May 21, 2019 13:25
[2019-05-21] MEDS: Ipratropium 0.02% Inh Soln 2.5ml UD HHN SCH ×2 (13:43→19:42)
[2019-05-21 16:00] VITALS: BP 149/50
[2019-05-21] MEDS ORDERED: NS 275ml ONE (16:10)
[2019-05-21] MEDS: Docusate 100mg cap ORAL SCH (17:20)
--- NOTE | 2019-05-21 18:07 | Surgery Progress Note ---
Surgery Progress Note Subjective Additional Comments improving resting comfortable labs noted exam stable Objective Last 24 Hour Vital Signs Date Time Temp Pulse Resp B/P (MAP) Pulse Ox O2 Delivery O2 Flow Rate FiO2 05/21/19 16:00 96.7 78 19 149/50 (83) 100 05/21/19 15:53 63 05/21/19 13:43 66 24 97 Venturi Mask 8.0 40 64 24 96 05/21/19 12:00 96.8 68 20 150/61 (90) 97 05/21/19 11:08 68 05/21/19 08:47 Venturi Mask 8.0 05/21/19 08:40 63 157/57 05/21/19 08:39 157/57 05/21/19 08:39 63 157/57 05/21/19 08:06 96 Nasal Cannula 2.0 28 05/21/19 08:00 96.6 63 19 157/57 (90) 95 05/21/19 07:23 64 05/21/19 04:55 65 27 97 Venturi Mask 8.0 40 62 26 94 05/21/19 04:00 97.7 59 20 156/65 (95) 94 05/21/19 04:00 60 05/21/19 00:59 96 Nasal Cannula 2.0 28 05/21/19 00:52 79 05/21/19 00:45 100 26 96 Nasal Cannula 2.0 28 92 24 97 05/21/19 00:00 98.1 58 22 155/91 (112) 90 05/21/19 00:00 76 05/20/19 21:40 93 177/73 05/20/19 21:00 Nasal Cannula 2.0 Nasal Cannula 2.0 05/20/19 20:00 97.3 93 20 177/73 (107) 95 05/20/19 19:00 90 20 158/69 (98) 94 05/20/19 18:27 97 174/88 I&O Intake and Output 05/20/19 05/21/19 19:00 07:00 Intake Total 1595.000 ml 150 ml Output Total 575 ml 700 ml Balance 1020.000 ml -550 ml Intake Oral 420 ml 150 ml IV Total 1175.000 ml Output Urine Total 575 ml 700 ml Dressing: saturated Wound: clean Cardiovascular: RSR Respiratory: clear Abdomen: soft, non-tender, present bowel sounds Extremities: no tenderness, no cyanosis Laboratory Tests Test 05/21/19 01:30 05/21/19 07:05 Urine Eosinophils None seen (NONE SEEN) White Blood Count 8.2 K/UL (4.8-10.8) Red Blood Count 3.45 M/UL (4.70-6.10) L Hemoglobin 10.1 G/DL (14.2-18.0) L Hematocrit 30.6 % (42.0-52.0) L Mean Corpuscular Volume 89 FL (80-99) Mean Corpuscular Hemoglobin 29.4 PG (27.0-31.0) Mean Corpuscular Hemoglobin Concent 33.1 G/DL (32.0-36.0) Red Cell Distribution Width 15.0 % (11.6-14.8) H Platelet Count 257 K/UL (150-450) Mean Platelet Volume 4.5 FL (6.5-10.1) L Neutrophils (%) (Auto) % (45.0-75.0) Lymphocytes (%) (Auto) % (20.0-45.0) Monocytes (%) (Auto) % (1.0-10.0) Eosinophils (%) (Auto) % (0.0-3.0) Basophils (%) (Auto) % (0.0-2.0) Differential Total Cells Counted 100 Neutrophils % (Manual) 92 % (45-75) H Lymphocytes % (Manual) 5 % (20-45) L Monocytes % (Manual) 3 % (1-10) Eosinophils % (Manual) 0 % (0-3) Basophils % (Manual) 0 % (0-2) Band Neutrophils 0 % (0-8) Platelet Estimate Adequate Platelet Morphology Normal Anisocytosis 1+ Sodium Level 138 MMOL/L (136-145) Potassium Level 4.1 MMOL/L (3.5-5.1) Chloride Level 107 MMOL/L (98-107) Carbon Dioxide Level 22 MMOL/L (21-32) Anion Gap 9 mmol/L (5-15) Blood Urea Nitrogen 29 mg/dL (7-18) H Creatinine 2.0 MG/DL (0.55-1.30) H Estimat Glomerular Filtration Rate mL/min (>60) Glucose Level 126 MG/DL (74-106) H Hemoglobin A1c 5.7 % (4.3-6.0) Uric Acid 5.4 MG/DL (2.6-7.2) Calcium Level 7.5 MG/DL (8.5-10.1) L Phosphorus Level 4.1 MG/DL (2.5-4.9) Magnesium Level 1.8 MG/DL (1.8-2.4) Ferritin 603 NG/ML (8-388) H Total Bilirubin 0.5 MG/DL (0.2-1.0) Gamma Glutamyl Transpeptidase 47 U/L (5-85) Aspartate Amino Transf (AST/SGOT) 25 U/L (15-37) Alanine Aminotransferase (ALT/SGPT) 26 U/L (12-78) Alkaline Phosphatase 85 U/L (46-116) C-Reactive Protein, Quantitative 6.5 mg/dL (0.00-0.90) H Pro-B-Type Natriuretic Peptide 7986 pg/mL (0-125) H Total Protein 5.5 G/DL (6.4-8.2) L Albumin 1.8 G/DL (3.4-5.0) L Globulin 3.7 g/dL Albumin/Globulin Ratio 0.5 (1.0-2.7) L Triglycerides Level 145 MG/DL (30-150) Cholesterol Level 238 MG/DL (< 200) H LDL Cholesterol 156 mg/dL (<100) H HDL Cholesterol 36 MG/DL (40-60) L Cholesterol/HDL Ratio 6.6 (3.3-4.4) H Vitamin B12 Level 401 PG/ML (193-986) Folate 12.6 NG/ML (8.6-58.9) Thyroid Stimulating Hormone (TSH) 16.397 uiU/mL (0.358-3.740) Plan Problems: (1) Cellulitis of upper extremity Assessment & Plan: 84M with RUE cellulitis, edema, erythema. no drainage. has RUE picc line recommend removal of picc. removed at bedside by myself on 05/18. pressure held, hemostasis noted, dressings applied. cath tip sent for cultures DVT duplex studies with acute thrombus IV Abx as per ID UA pending Cx results keep RUE elevated on pillows okay for diet AM labs anticoagulation off load pressure for dti noted will follow with recs thank you (2) Cellulitis Assessment & Plan: Pt presented on admission with reabsorbing blister lateral R heel. Base of injury indurated with delineated margins(L)4cm x (W)3cm.Non- blanching erythema Sacrum ,R and L buttocks(L)8.5cm x (W)9cm, with a partial thickness pressure injury noted to L buttocks. Base of wound is moist and viable (L)2.3cm x (W)3cm. Area around wound tender when minimally palpated. Pt noted to be wearing splint L foot. Per pt he fractured foot a few weeks ago. Splint removed to assess skin integrity. L heel and malleoli are pink and blanchable.Cavilon Skin Barrier applied to L heel and malleoli and each area covered with Optifoam drsg. Splint reapplied. No other skin concerns noted. Tx.Plan: Apply Moisture Barrier to Buttocks. Cover with Optifoam drsg. Changee very 3 days and prn. Apply Cavilon Skin Barrier to both heels. Cover each heel with Optifoam drsg. Change every 7 days and prn APM/SCOOBY Mattress overlay. Reposition at least every 2hours or as tolerated. Off-load heels with pillow. Bennett Logan May 21, 2019 18:06
[2019-05-21 20:00] VITALS: BP 147/65
[2019-05-21] MEDS: Tamsulosin 0.4mg cap ORAL SCH (21:41)
[2019-05-22] VITALS (7 sets, daily range): BP systolic 114–160; BP diastolic 53–76
[2019-05-22] MEDS: Ipratropium 0.02% Inh Soln 2.5ml UD HHN SCH ×4 (02:08→19:43)
[2019-05-22 07:35] LABS: ANION GAP 11 mmol/L (5-15); BLOOD UREA NITROGEN 33 mg/dL (7-18); CALCIUM 7.3 MG/DL (8.5-10.1); CARBON DIOXIDE 20 MMOL/L (21-32); CHLORIDE 108 MMOL/L (98-107); SODIUM 138 MMOL/L (136-145)
[2019-05-22 07:48] LABS: HEMOGLOBIN 9.6 G/DL (14.2-18.0); MEAN CORPUSCULAR VOLUME 90 FL (80-99); PLATELET COUNT 268 K/UL (150-450); RED BLOOD COUNT 3.21 M/UL (4.70-6.10); RED CELL DISTRIBUTION WIDTH 15.1 % (11.6-14.8); WHITE BLOOD COUNT 7.9 K/UL (4.8-10.8)
--- NOTE | 2019-05-22 09:35 | Cardiac Electrophysiology PN ---
Assessment/Plan Assessment/Plan 1. Paroxysmal Atrial fibrillation with rapid ventricular response was on amiodarone gtt, now in sinus rhythm. Start PO amiodarone 200 and Eliquis 2.5 bid 2. History of hypertension, on Norvasc 5 and metoprolol 25 bid 3. History of renal failure, DC lisinopril. VAISHALI RN Subjective Subjective No CP or SOB. In SR. Refusing meds. Objective Last 24 Hour Vital Signs Date Time Temp Pulse Resp B/P (MAP) Pulse Ox O2 Delivery O2 Flow Rate FiO2 05/22/19 08:00 97.9 92 20 151/71 (97) 97 05/22/19 07:24 93 20 100 Venturi Mask 8.0 40 70 20 97 05/22/19 07:24 97 Venturi Mask 8.0 40 05/22/19 04:00 77 05/22/19 04:00 97.7 82 19 139/76 (97) 95 05/22/19 02:08 87 20 100 Venturi Mask 8.0 40 84 20 97 05/22/19 00:00 74 05/22/19 00:00 97.7 75 20 136/75 (95) 95 05/21/19 21:41 70 147/65 05/21/19 21:00 Venturi Mask 8.0 05/21/19 20:00 98.7 68 20 147/65 (92) 98 05/21/19 20:00 68 05/21/19 19:42 98 Nasal Cannula 2.0 28 05/21/19 19:42 83 20 100 Venturi Mask 8.0 40 73 20 98 05/21/19 16:00 96.7 78 19 149/50 (83) 100 05/21/19 15:53 63 05/21/19 13:43 66 24 97 Venturi Mask 8.0 40 64 24 96 05/21/19 12:00 96.8 68 20 150/61 (90) 97 05/21/19 11:08 68 Intake and Output 05/21/19 05/22/19 19:00 07:00 Intake Total 720 ml 210 ml Output Total 650 ml 400 ml Balance 70 ml -190 ml Intake Oral 120 ml 210 ml IV Total 600 ml Output Urine Total 650 ml 400 ml Laboratory Tests Test 05/22/19 02:55 05/22/19 05:24 Urine Eosinophils None seen (NONE SEEN) White Blood Count 7.9 K/UL (4.8-10.8) Red Blood Count 3.21 M/UL (4.70-6.10) L Hemoglobin 9.6 G/DL (14.2-18.0) L Hematocrit 29.0 % (42.0-52.0) L Mean Corpuscular Volume 90 FL (80-99) Mean Corpuscular Hemoglobin 29.8 PG (27.0-31.0) Mean Corpuscular Hemoglobin Concent 33.0 G/DL (32.0-36.0) Red Cell Distribution Width 15.1 % (11.6-14.8) H Platelet Count 268 K/UL (150-450) Mean Platelet Volume 4.2 FL (6.5-10.1) L Neutrophils (%) (Auto) % (45.0-75.0) Lymphocytes (%) (Auto) % (20.0-45.0) Monocytes (%) (Auto) % (1.0-10.0) Eosinophils (%) (Auto) % (0.0-3.0) Basophils (%) (Auto) % (0.0-2.0) Neutrophils % (Manual) Pending Lymphocytes % (Manual) Pending Platelet Estimate Pending Platelet Morphology Pending Sodium Level 138 MMOL/L (136-145) Potassium Level 4.0 MMOL/L (3.5-5.1) Chloride Level 108 MMOL/L (98-107) H Carbon Dioxide Level 20 MMOL/L (21-32) L Anion Gap 11 mmol/L (5-15) Blood Urea Nitrogen 33 mg/dL (7-18) H Creatinine 2.0 MG/DL (0.55-1.30) H Estimat Glomerular Filtration Rate mL/min (>60) Glucose Level 91 MG/DL (74-106) Calcium Level 7.3 MG/DL (8.5-10.1) L Random Vancomycin Level 17.9 ug/mL Del Alcaraz MD May 22, 2019 09:35
[2019-05-22] MEDS: Docusate 100mg cap ORAL SCH ×3 (09:45→18:08)
[2019-05-22] MEDS: Eliquis 2.5mg tablet ORAL SCH ×2 (09:45→18:08)
--- NOTE | 2019-05-22 10:08 | Pulmonology Progress Note ---
Assessment/Plan Assessment/Plan IMPRESSION AND PLAN: 1. Pneumonia. Bilateral upper lobe. 2. Cellulitis. 3. History of COPD. 4. Hypertension. 5. Afib with RVR; rate controlled DISCUSSION: 1. No longer in a fib after amiodarone; transferred out of ICU 2. Agree with present management and care. 3. Continue medications and HHN 4. Reviewed Chest CT. 5. 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 Arsen Whittaker M.D. Subjective Interval Events: Seen on tele; states he is better Constitutional: Reports: no symptoms HEENT: Repors: no symptoms Respiratory: Reports: no symptoms Cardiovascular: Reports: no symptoms Gastrointestinal/Abdominal: Reports: no symptoms Allergies: Coded Allergies: No Known Allergies (Unverified , 05/18/19) Objective Last 24 Hour Vital Signs Date Time Temp Pulse Resp B/P (MAP) Pulse Ox O2 Delivery O2 Flow Rate FiO2 05/22/19 09:44 92 151/71 05/22/19 09:44 92 151/71 05/22/19 08:00 94 05/22/19 08:00 97.9 92 20 151/71 (97) 97 05/22/19 07:24 93 20 100 Venturi Mask 8.0 40 70 20 97 05/22/19 07:24 97 Venturi Mask 8.0 40 05/22/19 04:00 77 05/22/19 04:00 97.7 82 19 139/76 (97) 95 05/22/19 02:08 87 20 100 Venturi Mask 8.0 40 84 20 97 05/22/19 00:00 74 05/22/19 00:00 97.7 75 20 136/75 (95) 95 05/21/19 21:41 70 147/65 05/21/19 21:00 Venturi Mask 8.0 05/21/19 20:00 98.7 68 20 147/65 (92) 98 05/21/19 20:00 68 05/21/19 19:42 98 Nasal Cannula 2.0 28 05/21/19 19:42 83 20 100 Venturi Mask 8.0 40 73 20 98 05/21/19 16:00 96.7 78 19 149/50 (83) 100 05/21/19 15:53 63 05/21/19 13:43 66 24 97 Venturi Mask 8.0 40 64 24 96 05/21/19 12:00 96.8 68 20 150/61 (90) 97 05/21/19 11:08 68 Intake and Output 05/21/19 05/22/19 19:00 07:00 Intake Total 720 ml 210 ml Output Total 650 ml 400 ml Balance 70 ml -190 ml Intake Oral 120 ml 210 ml IV Total 600 ml Output Urine Total 650 ml 400 ml General Appearance: no acute distress HEENT: normocephalic Respiratory/Chest: chest wall non-tender, lungs clear Cardiovascular: normal peripheral pulses, normal rate Abdomen: normal bowel sounds Laboratory Tests 05/22/19 02:55: Urine Eosinophils None seen 05/22/19 05:24: White Blood Count 7.9, Red Blood Count 3.21L, Hemoglobin 9.6L, Hematocrit 29.0L , Mean Corpuscular Volume 90, Mean Corpuscular Hemoglobin 29.8, Mean Corpuscular Hemoglobin Concent 33.0, Red Cell Distribution Width 15.1H, Platelet Count 268, Mean Platelet Volume 4.2L, Neutrophils (%) (Auto) , Lymphocytes (%) (Auto) , Monocytes (%) (Auto) , Eosinophils (%) (Auto) , Basophils (%) (Auto) , Neutrophils % (Manual) [Pending], Lymphocytes % (Manual) [Pending], Platelet Estimate [Pending], Platelet Morphology [Pending], Sodium Level 138, Potassium Level 4.0, Chloride Level 108H, Carbon Dioxide Level 20L, Anion Gap 11, Blood Urea Nitrogen 33H, Creatinine 2.0H, Estimat Glomerular Filtration Rate , Glucose Level 91, Calcium Level 7.3L, Random Vancomycin Level 17.9 Current Medications Medications (Trade) Dose Ordered Sig/Phillip Route PRN Reason Start Time Stop Time Status Last Admin Dose Admin Acetaminophen (Tylenol) 500 mg Q4H PRN ORAL Mild Pain/Temp > 100.5 05/20/19 20:30 06/19/19 20:29 Acetaminophen/ Hydrocodone Bitart ([place] 5/325) 1 tab Q6H PRN ORAL For Pain 05/20/19 20:30 05/27/19 20:29 Amiodarone HCl (Cordarone) 200 mg EVERY 12 HOURS ORAL 05/22/19 21:00 06/21/19 20:59 Amlodipine Besylate (Norvasc) 5 mg DAILY ORAL 05/21/19 09:00 06/20/19 08:59 05/22/19 09:44 Apixaban (Eliquis) 2.5 mg BID ORAL 05/21/19 09:00 06/20/19 08:59 05/22/19 09:45 Docusate Sodium (Colace) 100 mg TID ORAL 05/21/19 18:00 06/20/19 08:59 05/22/19 09:45 Finasteride (Proscar) 5 mg DAILY ORAL 05/21/19 09:00 06/20/19 08:59 05/22/19 09:44 Ipratropium Con[place] (Atrovent) 500 mcg Q4H PRN N Shortness of Breath 05/20/19 20:30 05/25/19 20:29 05/21/19 10:45 Ipratropium Conde (Atrovent) 500 mcg Q6HRT HHN 05/21/19 13:00 05/26/19 12:59 05/22/19 07:21 Metoprolol Tartrate (Lopressor) 25 mg Q12HR ORAL 05/20/19 21:00 06/19/19 20:59 05/22/19 09:44 Sodium Chloride 1,000 ml @ 75 mls/hr [id number] IV 05/20/19 20:30 06/19/19 20:29 05/21/19 23:18 Tamsulosin HCl (Flomax) 0.4 mg BEDTIME ORAL 05/20/19 21:00 06/19/19 20:59 05/21/19 21:41 Vancomycin HCl (Vanco rx to dose) 1 ea DAILY PRN MISC Per rx protocol 05/20/19 20:30 06/19/19 20:29 Vancomycin HCl 1 gm/Dextrose 275 ml @ 183.708 mls/hr ONCE ONCE IVPB 05/22/19 12:00 05/22/19 13:29 Arsen Whittaker MD May 22, 2019 10:08
--- NOTE | 2019-05-22 10:15 | Infectious Diseases Prog Note ---
Assessment/Plan Assessment/Plan 84 yo male withPMHx of HTN who pwas sent to the ED on 05/18/19 from his long term for possible picc line infection. Swelling around PICC line Minimal to no erythema and no purulent drainage Not likely to be infected Blood Cx 05/18/19 - NGTD PICC Tip Cx 05/18/19 - NGTD PICC line removed 05/18/19 No Leukocytosis No fever OM - Let foot On Vancomycin at nursing End date early May SOB on 2L NC CXR - Some LLL Atelectasis vs PNA, Nodules HTN PLAN - Continue Vancomcyin per pharmacy - End date per long term MD - Monitor CBC and Temps Thank you for this consult. [facility] will continue to follow the patient with you during this hospitalization. Subjective Allergies: Coded Allergies: No Known Allergies (Unverified , 05/18/19) Subjective Afebrile No Leukocytosis On 8L NC Objective Vital Signs Last 24 Hour Vital Signs Date Time Temp Pulse Resp B/P (MAP) Pulse Ox O2 Delivery O2 Flow Rate FiO2 05/22/19 09:44 92 151/71 05/22/19 09:44 92 151/71 05/22/19 09:00 Venturi Mask 8.0 05/22/19 08:00 94 05/22/19 08:00 97.9 92 20 151/71 (97) 97 05/22/19 07:24 93 20 100 Venturi Mask 8.0 40 70 20 97 05/22/19 07:24 97 Venturi Mask 8.0 40 05/22/19 04:00 77 05/22/19 04:00 97.7 82 19 139/76 (97) 95 05/22/19 02:08 87 20 100 Venturi Mask 8.0 40 84 20 97 05/22/19 00:00 74 05/22/19 00:00 97.7 75 20 136/75 (95) 95 05/21/19 21:41 70 147/65 05/21/19 21:00 Venturi Mask 8.0 05/21/19 20:00 98.7 68 20 147/65 (92) 98 05/21/19 20:00 68 05/21/19 19:42 98 Nasal Cannula 2.0 28 05/21/19 19:42 83 20 100 Venturi Mask 8.0 40 73 20 98 05/21/19 16:00 96.7 78 19 149/50 (83) 100 05/21/19 15:53 63 05/21/19 13:43 66 24 97 Venturi Mask 8.0 40 64 24 96 05/21/19 12:00 96.8 68 20 150/61 (90) 97 05/21/19 11:08 68 Height (Feet): 5 Height (Inches): 7.00 Weight (Pounds): 178 Objective Gen: NAD HEENT: NCAT, MMM, EOMI LUNGS: CTAB, No W CARDS: RRR, S1, S2 ABD: Soft, NT, ND Laboratory Tests Test 05/22/19 02:55 05/22/19 05:24 Urine Eosinophils None seen (NONE SEEN) White Blood Count 7.9 K/UL (4.8-10.8) Red Blood Count 3.21 M/UL (4.70-6.10) L Hemoglobin 9.6 G/DL (14.2-18.0) L Hematocrit 29.0 % (42.0-52.0) L Mean Corpuscular Volume 90 FL (80-99) Mean Corpuscular Hemoglobin 29.8 PG (27.0-31.0) Mean Corpuscular Hemoglobin Concent 33.0 G/DL (32.0-36.0) Red Cell Distribution Width 15.1 % (11.6-14.8) H Platelet Count 268 K/UL (150-450) Mean Platelet Volume 4.2 FL (6.5-10.1) L Neutrophils (%) (Auto) % (45.0-75.0) Lymphocytes (%) (Auto) % (20.0-45.0) Monocytes (%) (Auto) % (1.0-10.0) Eosinophils (%) (Auto) % (0.0-3.0) Basophils (%) (Auto) % (0.0-2.0) Neutrophils % (Manual) Pending Lymphocytes % (Manual) Pending Platelet Estimate Pending Platelet Morphology Pending Sodium Level 138 MMOL/L (136-145) Potassium Level 4.0 MMOL/L (3.5-5.1) Chloride Level 108 MMOL/L (98-107) H Carbon Dioxide Level 20 MMOL/L (21-32) L Anion Gap 11 mmol/L (5-15) Blood Urea Nitrogen 33 mg/dL (7-18) H Creatinine 2.0 MG/DL (0.55-1.30) H Estimat Glomerular Filtration Rate mL/min (>60) Glucose Level 91 MG/DL (74-106) Calcium Level 7.3 MG/DL (8.5-10.1) L Random Vancomycin Level 17.9 ug/mL Current Medications Medications (Trade) Dose Ordered Sig/Phillip Route PRN Reason Start Time Stop Time Status Last Admin Dose Admin Acetaminophen (Tylenol) 500 mg Q4H PRN ORAL Mild Pain/Temp > 100.5 05/20/19 20:30 06/19/19 20:29 Acetaminophen/ Hydrocodone Bitart ([place] 5/325) 1 tab Q6H PRN ORAL For Pain 05/20/19 20:30 05/27/19 20:29 Amiodarone HCl (Cordarone) 200 mg EVERY 12 HOURS ORAL 05/22/19 21:00 06/21/19 20:59 Amlodipine Besylate (Norvasc) 5 mg DAILY ORAL 05/21/19 09:00 06/20/19 08:59 05/22/19 09:44 Apixaban (Eliquis) 2.5 mg BID ORAL 05/21/19 09:00 06/20/19 08:59 05/22/19 09:45 Docusate Sodium (Colace) 100 mg TID ORAL 05/21/19 18:00 06/20/19 08:59 05/22/19 09:45 Finasteride (Proscar) 5 mg DAILY ORAL 05/21/19 09:00 06/20/19 08:59 05/22/19 09:44 Ipratropium [place] (Atrovent) 500 mcg Q4H PRN HHN Shortness of Breath 05/20/19 20:30 05/25/19 20:29 05/21/19 10:45 Ipratropium [place] (Atrovent) 500 mcg Q6HRT HHN 05/21/19 13:00 05/26/19 12:59 05/22/19 07:21 Metoprolol Tartrate (Lopressor) 25 mg Q12HR ORAL 05/20/19 21:00 06/19/19 20:59 05/22/19 09:44 Sodium Chloride 1,000 ml @ 75 mls/hr [id number] IV 05/20/19 20:30 06/19/19 20:29 05/21/19 23:18 Tamsulosin HCl (Flomax) 0.4 mg BEDTIME ORAL 05/20/19 21:00 06/19/19 20:59 05/21/19 21:41 Vancomycin HCl (Vanco rx to dose) 1 ea DAILY PRN MISC Per rx protocol 05/20/19 20:30 06/19/19 20:29 Vancomycin HCl 1 gm/Dextrose 275 ml @ 183.708 mls/hr ONCE ONCE IVPB 05/22/19 12:00 05/22/19 13:29 Jimbo Dodd MD May 22, 2019 10:15
[2019-05-22] MEDS ORDERED: Vancomycin 1gm/D5W 275ml IVPB ONE ×2 (12:00)
--- NOTE | 2019-05-22 13:01 | General Progress Note ---
Assessment/Plan Problem List: (1) SOB (shortness of breath) ICD Codes: R06.02 - Shortness of breath SNOMED: 342336101 (2) Cellulitis ICD Codes: L03.90 - Cellulitis, unspecified SNOMED: 172746129 (3) Cellulitis of upper extremity ICD Codes: L03.119 - Cellulitis of unspecified part of limb SNOMED: 143814013 Qualifiers: Qualified Codes: L03.113 - Cellulitis of right upper limb (4) Renal insufficiency ICD Codes: N28.9 - Disorder of kidney and ureter, unspecified SNOMED: 232001629, 664561088 (5) Renal failure (ARF), acute on chronic ICD Codes: N17.9 - Acute kidney failure, unspecified; N18.9 - Chronic kidney disease, unspecified SNOMED: 368486496 (6) Anemia ICD Codes: D64.9 - Anemia, unspecified SNOMED: 335129661 (7) Hypothyroidism ICD Codes: E03.9 - Hypothyroidism, unspecified SNOMED: 79993607 (8) UTI (urinary tract infection) ICD Codes: N39.0 - Urinary tract infection, site not specified SNOMED: 83950123 Status: progressing, unchanged Assessment/Plan: still on oxygen poor appetite so consulted dr carrion cellulitis improving afebrile vitals stable Subjective ROS Limited/Unobtainable: Yes Allergies: Coded Allergies: No Known Allergies (Unverified , 05/18/19) Objective Last 24 Hour Vital Signs Date Time Temp Pulse Resp B/P (MAP) Pulse Ox O2 Delivery O2 Flow Rate FiO2 05/22/19 09:44 92 151/71 05/22/19 09:44 92 151/71 05/22/19 09:00 Venturi Mask 8.0 05/22/19 08:00 94 05/22/19 08:00 97.9 92 20 151/71 (97) 97 05/22/19 07:24 93 20 100 Venturi Mask 8.0 40 70 20 97 05/22/19 07:24 97 Venturi Mask 8.0 40 05/22/19 04:00 77 05/22/19 04:00 97.7 82 19 139/76 (97) 95 05/22/19 02:08 87 20 100 Venturi Mask 8.0 40 84 20 97 05/22/19 00:00 74 05/22/19 00:00 97.7 75 20 136/75 (95) 95 05/21/19 21:41 70 147/65 05/21/19 21:00 Venturi Mask 8.0 05/21/19 20:00 98.7 68 20 147/65 (92) 98 05/21/19 20:00 68 05/21/19 19:42 98 Nasal Cannula 2.0 28 05/21/19 19:42 83 20 100 Venturi Mask 8.0 40 73 20 98 05/21/19 16:00 96.7 78 19 149/50 (83) 100 05/21/19 15:53 63 05/21/19 13:43 66 24 97 Venturi Mask 8.0 40 64 24 96 Intake and Output 05/21/19 05/22/19 19:00 07:00 Intake Total 720 ml 210 ml Output Total 650 ml 400 ml Balance 70 ml -190 ml Intake Oral 120 ml 210 ml IV Total 600 ml Output Urine Total 650 ml 400 ml Laboratory Tests 05/22/19 02:55: Urine Eosinophils None seen 05/22/19 05:24: White Blood Count 7.9, Red Blood Count 3.21L, Hemoglobin 9.6L, Hematocrit 29.0L , Mean Corpuscular Volume 90, Mean Corpuscular Hemoglobin 29.8, Mean Corpuscular Hemoglobin Concent 33.0, Red Cell Distribution Width 15.1H, Platelet Count 268, Mean Platelet Volume 4.2L, Neutrophils (%) (Auto) , Lymphocytes (%) (Auto) , Monocytes (%) (Auto) , Eosinophils (%) (Auto) , Basophils (%) (Auto) , Differential Total Cells Counted 100, Neutrophils % ( Manual) 91H, Lymphocytes % (Manual) 3L, Monocytes % (Manual) 5, Eosinophils % ( Manual) 1, Basophils % (Manual) 0, Band Neutrophils 0, Platelet Estimate Adequate, Platelet Morphology Normal, Hypochromasia 2+, Sodium Level 138, Potassium Level 4.0, Chloride Level 108H, Carbon Dioxide Level 20L, Anion Gap 11 , Blood Urea Nitrogen 33H, Creatinine 2.0H, Estimat Glomerular Filtration Rate , Glucose Level 91, Calcium Level 7.3L, Random Vancomycin Level 17.9 Height (Feet): 5 Height (Inches): 7.00 Weight (Pounds): 178 Respiratory/Chest: rhonchi - bilaterally Abdomen: soft Joslyn Wiggins MD May 22, 2019 13:01
--- NOTE | 2019-05-22 14:56 | Nephrology Progress Note ---
Assessment/Plan Problem List: (1) Renal failure (ARF), acute on chronic (2) Cellulitis of upper extremity (3) A-fib (4) Pneumonia (5) UTI (urinary tract infection) (6) Anemia (7) Hypothyroidism Assessment - KIMO on CKD - Urinary tract infection. - Anemia- - Dehydration. - Cellulitis of Upper extremity - HTN Plan Hydrate- Anemia kumari- Avoid Nephrotoxics Per ID Allow CHANDA inhibitor to continue as long as renal function does not worsen. PICC line has been removed. Subjective ROS Limited/Unobtainable: No Constitutional: Reports: malaise, weakness Objective Objective Last 24 Hour Vital Signs Date Time Temp Pulse Resp B/P (MAP) Pulse Ox O2 Delivery O2 Flow Rate FiO2 05/22/19 14:50 82 22 100 Venturi Mask 8.0 40 61 24 94 05/22/19 14:00 74 05/22/19 12:00 97.5 70 22 141/56 (84) 97 05/22/19 09:44 92 151/71 05/22/19 09:44 92 151/71 05/22/19 09:00 Venturi Mask 8.0 05/22/19 08:00 94 05/22/19 08:00 97.9 92 20 151/71 (97) 97 05/22/19 07:24 93 20 100 Venturi Mask 8.0 40 70 20 97 05/22/19 07:24 97 Venturi Mask 8.0 40 05/22/19 04:00 77 05/22/19 04:00 97.7 82 19 139/76 (97) 95 05/22/19 02:08 87 20 100 Venturi Mask 8.0 40 84 20 97 05/22/19 00:00 74 05/22/19 00:00 97.7 75 20 136/75 (95) 95 05/21/19 21:41 70 147/65 05/21/19 21:00 Venturi Mask 8.0 05/21/19 20:00 98.7 68 20 147/65 (92) 98 05/21/19 20:00 68 05/21/19 19:42 98 Nasal Cannula 2.0 28 05/21/19 19:42 83 20 100 Venturi Mask 8.0 40 73 20 98 05/21/19 16:00 96.7 78 19 149/50 (83) 100 05/21/19 15:53 63 Intake and Output 05/21/19 05/22/19 19:00 07:00 Intake Total 720 ml 210 ml Output Total 650 ml 400 ml Balance 70 ml -190 ml Intake Oral 120 ml 210 ml IV Total 600 ml Output Urine Total 650 ml 400 ml Laboratory Tests 05/22/19 02:55: Urine Eosinophils None seen 05/22/19 05:24: White Blood Count 7.9, Red Blood Count 3.21L, Hemoglobin 9.6L, Hematocrit 29.0L , Mean Corpuscular Volume 90, Mean Corpuscular Hemoglobin 29.8, Mean Corpuscular Hemoglobin Concent 33.0, Red Cell Distribution Width 15.1H, Platelet Count 268, Mean Platelet Volume 4.2L, Neutrophils (%) (Auto) , Lymphocytes (%) (Auto) , Monocytes (%) (Auto) , Eosinophils (%) (Auto) , Basophils (%) (Auto) , Differential Total Cells Counted 100, Neutrophils % ( Manual) 91H, Lymphocytes % (Manual) 3L, Monocytes % (Manual) 5, Eosinophils % ( Manual) 1, Basophils % (Manual) 0, Band Neutrophils 0, Platelet Estimate Adequate, Platelet Morphology Normal, Hypochromasia 2+, Sodium Level 138, Potassium Level 4.0, Chloride Level 108H, Carbon Dioxide Level 20L, Anion Gap 11 , Blood Urea Nitrogen 33H, Creatinine 2.0H, Estimat Glomerular Filtration Rate , Glucose Level 91, Calcium Level 7.3L, Random Vancomycin Level 17.9 Height (Feet): 5 Height (Inches): 7.00 Weight (Pounds): 178 General Appearance: no apparent distress Cardiovascular: tachycardia Respiratory/Chest: decreased breath sounds Abdomen: distended Reinier Mera MD May 22, 2019 14:56
--- NOTE | 2019-05-22 16:45 | Consultation ---
DATE OF CONSULTATION: 05/22/2019 CHIEF COMPLAINT: Dysphagia and failure to thrive. HISTORY OF PRESENT ILLNESS: The patient is an 84-year-old male admitted to the hospital mainly for shortness of breath but the patient also was not tolerating and eating and so GI consult was requested for evaluation. The patient states even smell of the food makes him sick. He does not want to eat because he does not have an appetite. PAST MEDICAL HISTORY: 1. History of hypertension. 2. Skin cancer. ALLERGIES: No known allergies. MEDICATIONS: Please see medication reconciliation list. PAST SURGICAL HISTORY: History of surgery for skin cancer. Also, he has PICC line placement. FAMILY HISTORY: Noncontributory. SOCIAL HISTORY: The patient denies any tobacco, alcohol, or drug abuse. REVIEW OF SYSTEMS: Limited. PHYSICAL EXAMINATION: VITAL SIGNS: Temperature is 97.9, pulse 92, respiratory rate 20, blood pressure . HEENT: Normocephalic and atraumatic. Mild pale conjunctivae. NECK: Supple. No evidence of obvious lymphadenopathy. CARDIOVASCULAR: Regular rate and rhythm. Plus S1 and S2. Soft murmur in the left sternal border. LUNGS: Decreased breath sounds bilaterally and diffusely. ABDOMEN: Soft and nontender. No rebound. No guarding. No peritoneal sign. EXTREMITIES: Lower leg is covered. Apparently, the patient had recent fall. The right leg is extremely swollen +3, [id number]. LABORATORY DATA: White count 7.9, hemoglobin 9.6, hematocrit 29, and platelet count is 268. Sodium , potassium 4.0, BUN is 30, creatinine is 2.0. Albumin is 1.8. ASSESSMENT AND PLAN: The patient is an 84-year-old male with numerous medical problems, at this time has a renal insufficiency, anemia, failure to thrive, hypoalbuminemia, right lower leg swelling. PLAN: Duplex ultrasound of the right lower extremity to rule out DVT. Continue on Eliquis. The patient on Eliquis per Cardiology. Start the patient on low dose Remeron and Marinol for appetite stimulant. We will order anemia workup. We will follow up and make further recommendation as we go along. I want to thank, Dr. Joslyn Wiggins, for this kind referral. Valentino Cj Lino DR: Ron JOB#: [id number] CC: Joslyn Wiggins M.D.; Fax#: [phone]
--- NOTE | 2019-05-22 17:35 | Surgery Progress Note ---
Surgery Progress Note Subjective Symptoms: improved, voiding well Objective Last 24 Hour Vital Signs Date Time Temp Pulse Resp B/P (MAP) Pulse Ox O2 Delivery O2 Flow Rate FiO2 05/22/19 16:00 98.1 85 24 141/73 (95) 96 05/22/19 14:50 82 22 100 Venturi Mask 8.0 40 61 24 94 05/22/19 14:00 74 05/22/19 12:00 97.5 70 22 141/56 (84) 97 05/22/19 09:44 92 151/71 05/22/19 09:44 92 151/71 05/22/19 09:00 Venturi Mask 8.0 05/22/19 08:00 94 05/22/19 08:00 97.9 92 20 151/71 (97) 97 05/22/19 07:24 93 20 100 Venturi Mask 8.0 40 70 20 97 05/22/19 07:24 97 Venturi Mask 8.0 40 05/22/19 04:00 77 05/22/19 04:00 97.7 82 19 139/76 (97) 95 05/22/19 02:08 87 20 100 Venturi Mask 8.0 40 84 20 97 05/22/19 00:00 74 05/22/19 00:00 97.7 75 20 136/75 (95) 95 05/21/19 21:41 70 147/65 05/21/19 21:00 Venturi Mask 8.0 05/21/19 20:00 98.7 68 20 147/65 (92) 98 05/21/19 20:00 68 05/21/19 19:42 98 Nasal Cannula 2.0 28 05/21/19 19:42 83 20 100 Venturi Mask 8.0 40 73 20 98 I&O Intake and Output 05/21/19 05/22/19 19:00 07:00 Intake Total 720 ml 210 ml Output Total 650 ml 400 ml Balance 70 ml -190 ml Intake Oral 120 ml 210 ml IV Total 600 ml Output Urine Total 650 ml 400 ml Dressing: saturated Wound: clean Cardiovascular: RSR Respiratory: clear Abdomen: soft, non-tender, present bowel sounds Extremities: edema - improving , no cyanosis Laboratory Tests Test 05/22/19 02:55 05/22/19 05:24 Urine Eosinophils None seen (NONE SEEN) White Blood Count 7.9 K/UL (4.8-10.8) Red Blood Count 3.21 M/UL (4.70-6.10) L Hemoglobin 9.6 G/DL (14.2-18.0) L Hematocrit 29.0 % (42.0-52.0) L Mean Corpuscular Volume 90 FL (80-99) Mean Corpuscular Hemoglobin 29.8 PG (27.0-31.0) Mean Corpuscular Hemoglobin Concent 33.0 G/DL (32.0-36.0) Red Cell Distribution Width 15.1 % (11.6-14.8) H Platelet Count 268 K/UL (150-450) Mean Platelet Volume 4.2 FL (6.5-10.1) L Neutrophils (%) (Auto) % (45.0-75.0) Lymphocytes (%) (Auto) % (20.0-45.0) Monocytes (%) (Auto) % (1.0-10.0) Eosinophils (%) (Auto) % (0.0-3.0) Basophils (%) (Auto) % (0.0-2.0) Differential Total Cells Counted 100 Neutrophils % (Manual) 91 % (45-75) H Lymphocytes % (Manual) 3 % (20-45) L Monocytes % (Manual) 5 % (1-10) Eosinophils % (Manual) 1 % (0-3) Basophils % (Manual) 0 % (0-2) Band Neutrophils 0 % (0-8) Platelet Estimate Adequate Platelet Morphology Normal Hypochromasia 2+ Sodium Level 138 MMOL/L (136-145) Potassium Level 4.0 MMOL/L (3.5-5.1) Chloride Level 108 MMOL/L (98-107) H Carbon Dioxide Level 20 MMOL/L (21-32) L Anion Gap 11 mmol/L (5-15) Blood Urea Nitrogen 33 mg/dL (7-18) H Creatinine 2.0 MG/DL (0.55-1.30) H Estimat Glomerular Filtration Rate mL/min (>60) Glucose Level 91 MG/DL (74-106) Calcium Level 7.3 MG/DL (8.5-10.1) L Random Vancomycin Level 17.9 ug/mL Plan Problems: (1) Cellulitis of upper extremity Assessment & Plan: 84M with RUE cellulitis, edema, erythema. no drainage. has RUE picc line recommend removal of picc. removed at bedside by myself on 05/18. pressure held, hemostasis noted, dressings applied. cath tip sent for cultures DVT duplex studies with acute thrombus IV Abx as per ID UA pending Cx results keep RUE elevated on pillows okay for diet AM labs anticoagulation off load pressure for dti noted will follow with recs thank you (2) Cellulitis Assessment & Plan: Pt presented on admission with reabsorbing blister lateral R heel. Base of injury indurated with delineated margins(L)4cm x (W)3cm.Non- blanching erythema Sacrum ,R and L buttocks(L)8.5cm x (W)9cm, with a partial thickness pressure injury noted to L buttocks. Base of wound is moist and viable (L)2.3cm x (W)3cm. Area around wound tender when minimally palpated. Pt noted to be wearing splint L foot. Per pt he fractured foot a few weeks ago. Splint removed to assess skin integrity. L heel and malleoli are pink and blanchable.Cavilon Skin Barrier applied to L heel and malleoli and each area covered with Optifoam drsg. Splint reapplied. No other skin concerns noted. Tx.Plan: Apply Moisture Barrier to Buttocks. Cover with Optifoam drsg. Changee very 3 days and prn. Apply Cavilon Skin Barrier to both heels. Cover each heel with Optifoam drsg. Change every 7 days and prn APM/SCOOBY Mattress overlay. Reposition at least every 2hours or as tolerated. Off-load heels with pillow. Bennett Logan May 22, 2019 17:35
[2019-05-22] MEDS: Dronabinol 2.5mg Cap ORAL SCH (18:08)
[2019-05-22] MEDS: Tamsulosin 0.4mg cap ORAL SCH (21:35)
[2019-05-22] MEDS: Amiodarone 200mg tab ORAL SCH (21:35)
[2019-05-23] VITALS: BP 141/57
--- NOTE | 2019-05-23 00:01 | Consultation ---
DATE OF CONSULTATION: 05/22/2019 CONSULTING PHYSICIAN: Piter Pedraza M.D. HISTORY OF PRESENT ILLNESS: This is an 84-year-old male with multiple medical issues who has been admitted to the hospital for medical stabilization. The patient has been coming from [facility], confused, disoriented, difficulty swallowing, decreased appetite, anxiety, not able to be engaged and provide history. Rhea, the speech therapist stated that the patient has difficulty swallowing. PAST PSYCHIATRIC HISTORY: Depression, he has been on mirtazapine. PAST MEDICAL HISTORY: Several medical issues. ALLERGIES: No known drug allergies. SUBSTANCE ABUSE HISTORY: No known history of illicit drug use or alcohol. MENTAL STATUS EXAMINATION: The patient is alert, oriented times self. Mood is depressed. Affect is constricted, congruent with mood. Thought process is concrete. Thought content, no suicidal or homicidal ideation. ASSESSMENT: [place] I Dementia. Failure to thrive. [place] II Deferred. [place] III As above. [place] IV Low. [place] V 20 PLAN: 1. We will increase the Remeron to 50 mg at bedtime. 2. Discussed with the nurse. Piter Pedraza M.D. DR: JESSI JOB#: [id number] CC:
[2019-05-23] MEDS: Ipratropium 0.02% Inh Soln 2.5ml UD HHN SCH ×4 (00:15→18:48)
[2019-05-23 04:00] VITALS: BP 149/59
[2019-05-23 08:00] VITALS: BP 141/71
--- NOTE | 2019-05-23 08:12 | General Progress Note ---
Assessment/Plan Problem List: (1) SOB (shortness of breath) ICD Codes: R06.02 - Shortness of breath SNOMED: 463469521 (2) Cellulitis ICD Codes: L03.90 - Cellulitis, unspecified SNOMED: 637873669 (3) Cellulitis of upper extremity ICD Codes: L03.119 - Cellulitis of unspecified part of limb SNOMED: 256633973 Qualifiers: Qualified Codes: L03.113 - Cellulitis of right upper limb (4) Renal insufficiency ICD Codes: N28.9 - Disorder of kidney and ureter, unspecified SNOMED: 477842321, 701339859 (5) Renal failure (ARF), acute on chronic ICD Codes: N17.9 - Acute kidney failure, unspecified; N18.9 - Chronic kidney disease, unspecified SNOMED: 190534362 (6) Anemia ICD Codes: D64.9 - Anemia, unspecified SNOMED: 353012349 (7) Hypothyroidism ICD Codes: E03.9 - Hypothyroidism, unspecified SNOMED: 40796137 (8) UTI (urinary tract infection) ICD Codes: N39.0 - Urinary tract infection, site not specified SNOMED: 02005581 Status: progressing, unchanged Assessment/Plan: still on oxygen poor appetite so consulted dr carrion cellulitis improving edema afebrile reviewed chart already Subjective ROS Limited/Unobtainable: Yes Allergies: Coded Allergies: No Known Allergies (Unverified , 05/18/19) Objective Last 24 Hour Vital Signs Date Time Temp Pulse Resp B/P (MAP) Pulse Ox O2 Delivery O2 Flow Rate FiO2 05/23/19 04:00 97.8 96 19 149/59 (89) 98 05/23/19 04:00 84 05/23/19 00:15 77 20 96 Venturi Mask 8.0 40 76 20 92 05/23/19 00:00 97.5 78 20 141/57 (85) 98 05/23/19 00:00 73 05/22/19 21:36 89 160/53 05/22/19 21:00 Venturi Mask 8.0 05/22/19 20:00 89 05/22/19 20:00 98.1 89 20 160/53 (88) 91 05/22/19 19:45 91 Venturi Mask 8.0 40 05/22/19 19:43 80 22 97 Venturi Mask 8.0 40 83 22 91 05/22/19 16:00 98.1 85 24 141/73 (95) 96 05/22/19 16:00 97 05/22/19 14:50 82 22 100 Venturi Mask 8.0 40 61 24 94 05/22/19 14:00 74 05/22/19 12:00 97.5 70 22 141/56 (84) 97 05/22/19 09:44 92 151/71 05/22/19 09:44 92 151/71 05/22/19 09:00 Venturi Mask 8.0 Intake and Output 05/22/19 05/23/19 19:00 07:00 Output Total 400 ml 500 ml Balance -400 ml -500 ml Output Urine Total 400 ml 500 ml Height (Feet): 5 Height (Inches): 7.00 Weight (Pounds): 202 Cardiovascular: normal rate Respiratory/Chest: lungs clear Abdomen: soft Joslyn Wiggins MD May 23, 2019 08:12
[2019-05-23] MEDS: Eliquis 2.5mg tablet ORAL SCH ×2 (09:31→18:19)
[2019-05-23] MEDS: Docusate 100mg cap ORAL SCH ×3 (09:31→18:19)
[2019-05-23] MEDS: Dronabinol 2.5mg Cap ORAL SCH ×2 (09:32→18:19)
[2019-05-23] MEDS: Amiodarone 200mg tab ORAL SCH ×2 (09:32→21:02)
--- NOTE | 2019-05-23 09:43 | General Progress Note ---
Assessment/Plan Problem List: (1) Dysphagia ICD Codes: R13.10 - Dysphagia, unspecified SNOMED: 72912754, 198596696 (2) Anemia ICD Codes: D64.9 - Anemia, unspecified SNOMED: 391968079 (3) Hypothyroidism ICD Codes: E03.9 - Hypothyroidism, unspecified SNOMED: 57886297 (4) Thrombus ICD Codes: I82.90 - Acute embolism and thrombosis of unspecified vein SNOMED: 65064738, 54885214, 721566118, 655727295 (5) A-fib ICD Codes: I48.91 - Unspecified atrial fibrillation SNOMED: 07813776 Status: progressing, unchanged Assessment/Plan: NGT placement fo feeding VQ scan r/o PE fu hematology for DVT management Subjective ROS Limited/Unobtainable: Yes Allergies: Coded Allergies: No Known Allergies (Unverified , 05/18/19) Objective Last 24 Hour Vital Signs Date Time Temp Pulse Resp B/P (MAP) Pulse Ox O2 Delivery O2 Flow Rate FiO2 05/23/19 09:32 86 149/59 05/23/19 09:32 86 149/59 05/23/19 07:46 86 17 97 Venturi Mask 8.0 40 89 17 93 05/23/19 07:36 93 Venturi Mask 8.0 40 05/23/19 04:00 97.8 96 19 149/59 (89) 98 05/23/19 04:00 84 05/23/19 00:15 77 20 96 Venturi Mask 8.0 40 76 20 92 05/23/19 00:00 97.5 78 20 141/57 (85) 98 05/23/19 00:00 73 05/22/19 21:36 89 160/53 05/22/19 21:00 Venturi Mask 8.0 05/22/19 20:00 89 05/22/19 20:00 98.1 89 20 160/53 (88) 91 05/22/19 19:45 91 Venturi Mask 8.0 40 05/22/19 19:43 80 22 97 Venturi Mask 8.0 40 83 22 91 05/22/19 16:00 98.1 85 24 141/73 (95) 96 05/22/19 16:00 97 05/22/19 14:50 82 22 100 Venturi Mask 8.0 40 61 24 94 05/22/19 14:00 74 05/22/19 12:00 97.5 70 22 141/56 (84) 97 05/22/19 09:44 92 151/71 05/22/19 09:44 92 151/71 Intake and Output 05/22/19 05/23/19 19:00 07:00 Output Total 400 ml 500 ml Balance -400 ml -500 ml Output Urine Total 400 ml 500 ml Height (Feet): 5 Height (Inches): 7.00 Weight (Pounds): 202 General Appearance: alert EENT: normal ENT inspection Neck: supple Cardiovascular: tachycardia Respiratory/Chest: decreased breath sounds Abdomen: normal bowel sounds, non tender, soft Edema: 3+ Leg (R) Valentino Lino MD May 23, 2019 09:43
--- NOTE | 2019-05-23 10:43 | Pulmonology Progress Note ---
Assessment/Plan Assessment/Plan IMPRESSION AND PLAN: 1. Pneumonia. Bilateral upper lobe. 2. Cellulitis. 3. History of COPD. 4. Hypertension. 5. Afib with RVR; rate controlled DISCUSSION: 1. No longer in a fib after amiodarone; transferred out of ICU 2. Agree with present management and care. 3. Continue medications and HHN 4. Reviewed Chest CT. 5. 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 6. continue antibiotics Arsen Whittaker M.D. Subjective Interval Events: none new reported Constitutional: Reports: no symptoms HEENT: Repors: no symptoms Respiratory: Reports: dry cough Cardiovascular: Reports: no symptoms Gastrointestinal/Abdominal: Reports: no symptoms Genitourinary: Reports: no symptoms Allergies: Coded Allergies: No Known Allergies (Unverified , 05/18/19) Objective Last 24 Hour Vital Signs Date Time Temp Pulse Resp B/P (MAP) Pulse Ox O2 Delivery O2 Flow Rate FiO2 05/23/19 09:32 86 149/59 05/23/19 09:32 86 149/59 05/23/19 07:46 86 17 97 Venturi Mask 8.0 40 89 17 93 05/23/19 07:36 93 Venturi Mask 8.0 40 05/23/19 04:00 97.8 96 19 149/59 (89) 98 05/23/19 04:00 84 05/23/19 00:15 77 20 96 Venturi Mask 8.0 40 76 20 92 05/23/19 00:00 97.5 78 20 141/57 (85) 98 05/23/19 00:00 73 05/22/19 21:36 89 160/53 05/22/19 21:00 Venturi Mask 8.0 05/22/19 20:00 89 05/22/19 20:00 98.1 89 20 160/53 (88) 91 05/22/19 19:45 91 Venturi Mask 8.0 40 05/22/19 19:43 80 22 97 Venturi Mask 8.0 40 83 22 91 05/22/19 16:00 98.1 85 24 141/73 (95) 96 05/22/19 16:00 97 05/22/19 14:50 82 22 100 Venturi Mask 8.0 40 61 24 94 05/22/19 14:00 74 05/22/19 12:00 97.5 70 22 141/56 (84) 97 Intake and Output 05/22/19 05/23/19 19:00 07:00 Output Total 400 ml 500 ml Balance -400 ml -500 ml Output Urine Total 400 ml 500 ml General Appearance: no acute distress HEENT: normocephalic Respiratory/Chest: chest wall non-tender, decreased breath sounds Cardiovascular: normal peripheral pulses, regular rhythm Abdomen: normal bowel sounds Extremities: no cyanosis Current Medications Medications (Trade) Dose Ordered Sig/Phillip Route PRN Reason Start Time Stop Time Status Last Admin Dose Admin Acetaminophen (Tylenol) 500 mg Q4H PRN ORAL Mild Pain/Temp > 100.5 05/20/19 20:30 06/19/19 20:29 Acetaminophen/ Hydrocodone Bitart ([place] 5/325) 1 tab Q6H PRN ORAL For Pain 05/20/19 20:30 05/27/19 20:29 Amiodarone HCl (Cordarone) 200 mg EVERY 12 HOURS ORAL 05/22/19 21:00 06/21/19 20:59 05/23/19 09:32 Amlodipine Besylate (Norvasc) 5 mg DAILY ORAL 05/21/19 09:00 06/20/19 08:59 05/23/19 09:32 Apixaban (Eliquis) 2.5 mg BID ORAL 05/21/19 09:00 06/20/19 08:59 05/23/19 09:31 Docusate Sodium (Colace) 100 mg TID ORAL 05/21/19 18:00 06/20/19 08:59 05/23/19 09:31 Dronabinol (Marinol) 2.5 mg BID ORAL 05/22/19 18:00 06/21/19 17:59 05/23/19 09:32 Finasteride (Proscar) 5 mg DAILY ORAL 05/21/19 09:00 06/20/19 08:59 05/23/19 09:32 Ipratropium [place] (Atrovent) 500 mcg Q4H PRN HHN Shortness of Breath 05/20/19 20:30 05/25/19 20:29 05/21/19 10:45 Ipratropium [place] (Atrovent) 500 mcg Q6HRT HHN 05/21/19 13:00 05/26/19 12:59 05/23/19 07:36 Metoprolol Tartrate (Lopressor) 25 mg Q12HR ORAL 05/20/19 21:00 06/19/19 20:59 05/23/19 09:32 Mirtazapine (Remeron) 15 mg BEDTIME ORAL 05/22/19 21:00 06/21/19 20:59 05/22/19 21:36 Sodium Chloride 1,000 ml @ 75 mls/hr [id number] IV 05/20/19 20:30 06/19/19 20:29 05/23/19 01:51 Tamsulosin HCl (Flomax) 0.4 mg BEDTIME ORAL 05/20/19 21:00 06/19/19 20:59 05/22/19 21:35 Vancomycin HCl (Vanco rx to dose) 1 ea DAILY PRN MISC Per rx protocol 05/20/19 20:30 06/19/19 20:29 Arsen Whittaker MD May 23, 2019 10:42
--- NOTE | 2019-05-23 10:46 | Infectious Diseases Prog Note ---
Assessment/Plan Assessment/Plan 84 yo male withPMHx of HTN who pwas sent to the ED on 05/18/19 from his fdc for possible picc line infection. Swelling around PICC line Minimal to no erythema and no purulent drainage Not likely to be infected Blood Cx 05/18/19 - NGTD PICC Tip Cx 05/18/19 - NGTD PICC line removed 05/18/19 No Leukocytosis No fever OM - Let foot On Vancomycin at nursing End date early May PNA on 8L NC CXR - Some LLL Atelectasis vs PNA, Nodules CT 05/20/19 - Bilateral upper lobe infiltrates worse on the right. Consider pneumonia. Bilateral pleural effusions moderate in size HTN PLAN - Start Ceftriaxone and Azithomycin for probable PNA - Continue Vancomycin per pharmacy - End date per fdc MD - Monitor CBC and Temps Thank you for this consult. [facility] will continue to follow the patient with you during this hospitalization. Subjective Allergies: Coded Allergies: No Known Allergies (Unverified , 05/18/19) Subjective Afebrile No Leukocytosis On 8L NC DAVID Objective Vital Signs Last 24 Hour Vital Signs Date Time Temp Pulse Resp B/P (MAP) Pulse Ox O2 Delivery O2 Flow Rate FiO2 05/23/19 09:32 86 149/59 05/23/19 09:32 86 149/59 05/23/19 07:46 86 17 97 Venturi Mask 8.0 40 89 17 93 05/23/19 07:36 93 Venturi Mask 8.0 40 05/23/19 04:00 97.8 96 19 149/59 (89) 98 05/23/19 04:00 84 05/23/19 00:15 77 20 96 Venturi Mask 8.0 40 76 20 92 05/23/19 00:00 97.5 78 20 141/57 (85) 98 05/23/19 00:00 73 05/22/19 21:36 89 160/53 05/22/19 21:00 Venturi Mask 8.0 05/22/19 20:00 89 05/22/19 20:00 98.1 89 20 160/53 (88) 91 05/22/19 19:45 91 Venturi Mask 8.0 40 05/22/19 19:43 80 22 97 Venturi Mask 8.0 40 83 22 91 05/22/19 16:00 98.1 85 24 141/73 (95) 96 05/22/19 16:00 97 05/22/19 14:50 82 22 100 Venturi Mask 8.0 40 61 24 94 05/22/19 14:00 74 05/22/19 12:00 97.5 70 22 141/56 (84) 97 Height (Feet): 5 Height (Inches): 7.00 Weight (Pounds): 202 Objective Gen: NAD HEENT: NCAT, MMM, EOMI LUNGS: Coarse B/L CARDS: RRR, S1, S2 ABD: Soft, NT, ND Laboratory Tests Test 05/23/19 10:30 White Blood Count Pending Red Blood Count Pending Hemoglobin Pending Hematocrit Pending Mean Corpuscular Volume Pending Mean Corpuscular Hemoglobin Pending Mean Corpuscular Hemoglobin Concent Pending Red Cell Distribution Width Pending Platelet Count Pending Mean Platelet Volume Pending Neutrophils (%) (Auto) Pending Lymphocytes (%) (Auto) Pending Monocytes (%) (Auto) Pending Eosinophils (%) (Auto) Pending Basophils (%) (Auto) Pending Sodium Level Pending Potassium Level Pending Chloride Level Pending Carbon Dioxide Level Pending Blood Urea Nitrogen Pending Creatinine Pending Estimat Glomerular Filtration Rate Pending Glucose Level Pending Calcium Level Pending Iron Level Pending Unsaturated Iron Binding Pending Total Bilirubin Pending Aspartate Amino Transf (AST/SGOT) Pending Alanine Aminotransferase (ALT/SGPT) Pending Alkaline Phosphatase Pending Total Protein Pending Albumin Pending Globulin Pending Carcinoembryonic Antigen Pending Current Medications Medications (Trade) Dose Ordered Sig/Phillip Route PRN Reason Start Time Stop Time Status Last Admin Dose Admin Acetaminophen (Tylenol) 500 mg Q4H PRN ORAL Mild Pain/Temp > 100.5 05/20/19 20:30 06/19/19 20:29 Acetaminophen/ Hydrocodone Bitart ([place] 5/325) 1 tab Q6H PRN ORAL For Pain 05/20/19 20:30 05/27/19 20:29 Amiodarone HCl (Cordarone) 200 mg EVERY 12 HOURS ORAL 05/22/19 21:00 06/21/19 20:59 05/23/19 09:32 Amlodipine Besylate (Norvasc) 5 mg DAILY ORAL 05/21/19 09:00 06/20/19 08:59 05/23/19 09:32 Apixaban (Eliquis) 2.5 mg BID ORAL 05/21/19 09:00 06/20/19 08:59 05/23/19 09:31 Docusate Sodium (Colace) 100 mg TID ORAL 05/21/19 18:00 06/20/19 08:59 05/23/19 09:31 Dronabinol (Marinol) 2.5 mg BID ORAL 05/22/19 18:00 06/21/19 17:59 05/23/19 09:32 Finasteride (Proscar) 5 mg DAILY ORAL 05/21/19 09:00 06/20/19 08:59 05/23/19 09:32 Ipratropium [place] (Atrovent) 500 mcg Q4H PRN N Shortness of Breath 05/20/19 20:30 05/25/19 20:29 05/21/19 10:45 Ipratropium [place] (Atrovent) 500 mcg Q6HRT HHN 05/21/19 13:00 05/26/19 12:59 05/23/19 07:36 Metoprolol Tartrate (Lopressor) 25 mg Q12HR ORAL 05/20/19 21:00 06/19/19 20:59 05/23/19 09:32 Mirtazapine (Remeron) 15 mg BEDTIME ORAL 05/22/19 21:00 06/21/19 20:59 05/22/19 21:36 Sodium Chloride 1,000 ml @ 75 mls/hr [id number] IV 05/20/19 20:30 06/19/19 20:29 05/23/19 01:51 Tamsulosin HCl (Flomax) 0.4 mg BEDTIME ORAL 05/20/19 21:00 06/19/19 20:59 05/22/19 21:35 Vancomycin HCl (Vanco rx to dose) 1 ea DAILY PRN MISC Per rx protocol 05/20/19 20:30 06/19/19 20:29 Jimbo Dodd MD May 23, 2019 10:46
[2019-05-23 11:08] LABS: HEMATOCRIT 28.6 % (42.0-52.0); HEMOGLOBIN 9.3 G/DL (14.2-18.0); MEAN CORPUSCULAR VOLUME 90 FL (80-99); PLATELET COUNT 293 K/UL (150-450); RED BLOOD COUNT 3.19 M/UL (4.70-6.10); RED CELL DISTRIBUTION WIDTH 15.1 % (11.6-14.8); WHITE BLOOD COUNT 7.9 K/UL (4.8-10.8)
[2019-05-23 11:26] LABS: ALANINE AMINOTRANSFERASE 18 U/L (12-78); ALBUMIN 1.7 G/DL (3.4-5.0); ALBUMIN/GLOBULIN RATIO 0.5 (1.0-2.7); ALKALINE PHOSPHATASE 69 U/L (46-116); ANION GAP 11 mmol/L (5-15); ASPARTATE AMINO TRANSFERASE 21 U/L (15-37); BILIRUBIN,TOTAL 0.3 MG/DL (0.2-1.0); BLOOD UREA NITROGEN 36 mg/dL (7-18); CALCIUM 7.3 MG/DL (8.5-10.1); CARBON DIOXIDE 19 MMOL/L (21-32); CHLORIDE 111 MMOL/L (98-107); CREATININE 1.9 MG/DL (0.55-1.30); POTASSIUM 3.9 MMOL/L (3.5-5.1); SODIUM 141 MMOL/L (136-145)
--- NOTE | 2019-05-23 11:27 | Infectious Diseases Prog Note ---
Assessment/Plan Assessment/Plan 84 yo male withPMHx of HTN who pwas sent to the ED on 05/18/19 from his half-way for possible picc line infection. Swelling around PICC line Minimal to no erythema and no purulent drainage Not likely to be infected Blood Cx 05/18/19 - NGTD PICC Tip Cx 05/18/19 - NGTD PICC line removed 05/18/19 No Leukocytosis No fever OM - Let foot On Vancomycin at nursing End date early May PNA on 8L NC CXR - Some LLL Atelectasis vs PNA, Nodules CT 05/20/19 - Bilateral upper lobe infiltrates worse on the right. Consider pneumonia. Bilateral pleural effusions moderate in size HTN PLAN - Continue Levofloxacin #06/03 - Continue Vancomycin per pharmacy - End date per half-way MD - Monitor CBC and Temps Thank you for this consult. [facility] will continue to follow the patient with you during this hospitalization. Subjective Allergies: Coded Allergies: No Known Allergies (Unverified , 05/18/19) Subjective Afebrile No Leukocytosis On 8L NC DAVID Objective Vital Signs Last 24 Hour Vital Signs Date Time Temp Pulse Resp B/P (MAP) Pulse Ox O2 Delivery O2 Flow Rate FiO2 05/23/19 09:32 86 149/59 05/23/19 09:32 86 149/59 05/23/19 07:46 86 17 97 Venturi Mask 8.0 40 89 17 93 05/23/19 07:36 93 Venturi Mask 8.0 40 05/23/19 04:00 97.8 96 19 149/59 (89) 98 05/23/19 04:00 84 05/23/19 00:15 77 20 96 Venturi Mask 8.0 40 76 20 92 05/23/19 00:00 97.5 78 20 141/57 (85) 98 05/23/19 00:00 73 05/22/19 21:36 89 160/53 05/22/19 21:00 Venturi Mask 8.0 05/22/19 20:00 89 05/22/19 20:00 98.1 89 20 160/53 (88) 91 05/22/19 19:45 91 Venturi Mask 8.0 40 05/22/19 19:43 80 22 97 Venturi Mask 8.0 40 83 22 91 05/22/19 16:00 98.1 85 24 141/73 (95) 96 05/22/19 16:00 97 05/22/19 14:50 82 22 100 Venturi Mask 8.0 40 61 24 94 05/22/19 14:00 74 05/22/19 12:00 97.5 70 22 141/56 (84) 97 Height (Feet): 5 Height (Inches): 7.00 Weight (Pounds): 202 Objective Gen: NAD HEENT: NCAT, MMM, EOMI LUNGS: Coarse B/L CARDS: RRR, S1, S2 ABD: Soft, NT, ND Laboratory Tests Test 05/23/19 10:30 White Blood Count 7.9 K/UL (4.8-10.8) Red Blood Count 3.19 M/UL (4.70-6.10) L Hemoglobin 9.3 G/DL (14.2-18.0) L Hematocrit 28.6 % (42.0-52.0) L Mean Corpuscular Volume 90 FL (80-99) Mean Corpuscular Hemoglobin 29.3 PG (27.0-31.0) Mean Corpuscular Hemoglobin Concent 32.6 G/DL (32.0-36.0) Red Cell Distribution Width 15.1 % (11.6-14.8) H Platelet Count 293 K/UL (150-450) Mean Platelet Volume 4.2 FL (6.5-10.1) L Neutrophils (%) (Auto) % (45.0-75.0) Lymphocytes (%) (Auto) % (20.0-45.0) Monocytes (%) (Auto) % (1.0-10.0) Eosinophils (%) (Auto) % (0.0-3.0) Basophils (%) (Auto) % (0.0-2.0) Neutrophils % (Manual) Pending Lymphocytes % (Manual) Pending Platelet Estimate Pending Platelet Morphology Pending Sodium Level Pending Potassium Level Pending Chloride Level Pending Carbon Dioxide Level Pending Blood Urea Nitrogen Pending Creatinine Pending Estimat Glomerular Filtration Rate Pending Glucose Level Pending Calcium Level Pending Iron Level Pending Unsaturated Iron Binding Pending Total Bilirubin Pending Aspartate Amino Transf (AST/SGOT) Pending Alanine Aminotransferase (ALT/SGPT) Pending Alkaline Phosphatase Pending Total Protein Pending Albumin Pending Globulin Pending Carcinoembryonic Antigen Pending Current Medications Medications (Trade) Dose Ordered Sig/Phillip Route PRN Reason Start Time Stop Time Status Last Admin Dose Admin Acetaminophen (Tylenol) 500 mg Q4H PRN ORAL Mild Pain/Temp > 100.5 05/20/19 20:30 06/19/19 20:29 Acetaminophen/ Hydrocodone Bitart ([place] 5/325) 1 tab Q6H PRN ORAL For Pain 05/20/19 20:30 05/27/19 20:29 Amiodarone HCl (Cordarone) 200 mg EVERY 12 HOURS ORAL 05/22/19 21:00 06/21/19 20:59 05/23/19 09:32 Amlodipine Besylate (Norvasc) 5 mg DAILY ORAL 05/21/19 09:00 06/20/19 08:59 05/23/19 09:32 Apixaban (Eliquis) 2.5 mg BID ORAL 05/21/19 09:00 06/20/19 08:59 05/23/19 09:31 Docusate Sodium (Colace) 100 mg TID ORAL 05/21/19 18:00 06/20/19 08:59 05/23/19 09:31 Dronabinol (Marinol) 2.5 mg BID ORAL 05/22/19 18:00 06/21/19 17:59 05/23/19 09:32 Finasteride (Proscar) 5 mg DAILY ORAL 05/21/19 09:00 06/20/19 08:59 05/23/19 09:32 Ipratropium [place] (Atrovent) 500 mcg Q4H PRN HHN Shortness of Breath 05/20/19 20:30 05/25/19 20:29 05/21/19 10:45 Ipratropium [place] (Atrovent) 500 mcg Q6HRT HHN 05/21/19 13:00 05/26/19 12:59 05/23/19 07:36 Levofloxacin 50 ml @ 50 mls/hr Q24H IVPB 05/24/19 12:00 05/31/19 11:59 Levofloxacin 100 ml @ 100 mls/hr ONCE IVPB 05/23/19 12:00 05/23/19 14:00 Metoprolol Tartrate (Lopressor) 25 mg Q12HR ORAL 05/20/19 21:00 06/19/19 20:59 05/23/19 09:32 Mirtazapine (Remeron) 15 mg BEDTIME ORAL 05/22/19 21:00 06/21/19 20:59 05/22/19 21:36 Sodium Chloride 1,000 ml @ 75 mls/hr [id number] IV 05/20/19 20:30 06/19/19 20:29 05/23/19 01:51 Tamsulosin HCl (Flomax) 0.4 mg BEDTIME ORAL 05/20/19 21:00 06/19/19 20:59 05/22/19 21:35 Vancomycin HCl (Vanco rx to dose) 1 ea DAILY PRN MISC Per rx protocol 05/20/19 20:30 06/19/19 20:29 Jimbo Dodd MD May 23, 2019 11:27
[2019-05-23 11:28] LABS: % IRON SATURATION 45 % (15-50); IRON 56 ug/dL (50-175); TOTAL IRON BINDING CAPACITY 124 ug/dL (250-450)
--- NOTE | 2019-05-23 11:30 | Cardiac Electrophysiology PN ---
Assessment/Plan Assessment/Plan 1. Paroxysmal Atrial fibrillation with rapid ventricular response was on amiodarone gtt, now in sinus rhythm. On PO amiodarone 200 bid, Lopressor 25 bid and Eliquis 2.5 bid 2. Hypertension, on Norvasc 5 and metoprolol 25 bid 3. Renal failure with Cr 2.0.Off ACEI and ARB 4. Dysphagia. NG tube feeding FU Dr [place] 5. Swelling around PICC line Minimal to no erythema and no purulent drainage Not likely to be infected Blood Cx 05/18/19 - NGTD PICC Tip Cx 05/18/19 - NGTD PICC line removed 05/18/19 VAISHALI RN Subjective Subjective No CP or SOB. In SR. Now has NG tube Objective Last 24 Hour Vital Signs Date Time Temp Pulse Resp B/P (MAP) Pulse Ox O2 Delivery O2 Flow Rate FiO2 05/23/19 09:32 86 149/59 05/23/19 09:32 86 149/59 05/23/19 07:46 86 17 97 Venturi Mask 8.0 40 89 17 93 05/23/19 07:36 93 Venturi Mask 8.0 40 05/23/19 04:00 97.8 96 19 149/59 (89) 98 05/23/19 04:00 84 05/23/19 00:15 77 20 96 Venturi Mask 8.0 40 76 20 92 05/23/19 00:00 97.5 78 20 141/57 (85) 98 05/23/19 00:00 73 05/22/19 21:36 89 160/53 05/22/19 21:00 Venturi Mask 8.0 05/22/19 20:00 89 05/22/19 20:00 98.1 89 20 160/53 (88) 91 05/22/19 19:45 91 Venturi Mask 8.0 40 05/22/19 19:43 80 22 97 Venturi Mask 8.0 40 83 22 91 05/22/19 16:00 98.1 85 24 141/73 (95) 96 05/22/19 16:00 97 05/22/19 14:50 82 22 100 Venturi Mask 8.0 40 61 24 94 05/22/19 14:00 74 05/22/19 12:00 97.5 70 22 141/56 (84) 97 Intake and Output 05/22/19 05/23/19 19:00 07:00 Output Total 400 ml 500 ml Balance -400 ml -500 ml Output Urine Total 400 ml 500 ml Laboratory Tests Test 05/23/19 10:30 White Blood Count 7.9 K/UL (4.8-10.8) Red Blood Count 3.19 M/UL (4.70-6.10) L Hemoglobin 9.3 G/DL (14.2-18.0) L Hematocrit 28.6 % (42.0-52.0) L Mean Corpuscular Volume 90 FL (80-99) Mean Corpuscular Hemoglobin 29.3 PG (27.0-31.0) Mean Corpuscular Hemoglobin Concent 32.6 G/DL (32.0-36.0) Red Cell Distribution Width 15.1 % (11.6-14.8) H Platelet Count 293 K/UL (150-450) Mean Platelet Volume 4.2 FL (6.5-10.1) L Neutrophils (%) (Auto) % (45.0-75.0) Lymphocytes (%) (Auto) % (20.0-45.0) Monocytes (%) (Auto) % (1.0-10.0) Eosinophils (%) (Auto) % (0.0-3.0) Basophils (%) (Auto) % (0.0-2.0) Neutrophils % (Manual) Pending Lymphocytes % (Manual) Pending Platelet Estimate Pending Platelet Morphology Pending Sodium Level Pending Potassium Level Pending Chloride Level Pending Carbon Dioxide Level Pending Blood Urea Nitrogen Pending Creatinine Pending Estimat Glomerular Filtration Rate Pending Glucose Level Pending Calcium Level Pending Iron Level Pending Unsaturated Iron Binding Pending Total Bilirubin Pending Aspartate Amino Transf (AST/SGOT) Pending Alanine Aminotransferase (ALT/SGPT) Pending Alkaline Phosphatase Pending Total Protein Pending Albumin Pending Globulin Pending Carcinoembryonic Antigen Pending Objective HEENT: No JVD. NG tube is in LUNGS: Clear CVS: RRR ABDOMEN: Soft. EXT No edema Del Alcaraz MD May 23, 2019 11:30
--- NOTE | 2019-05-23 11:52 | Diagnostic Imaging Report ---
Indication: NG tube placement Comparison: None Single view of the abdomen obtained Findings: NG tube is satisfactory in position. The tip and proximal port both in the stomach. IMPRESSION: NG tube satisfactory in position
--- NOTE | 2019-05-23 11:59 | Nephrology Progress Note ---
Assessment/Plan Problem List: (1) Renal failure (ARF), acute on chronic (2) Cellulitis of upper extremity (3) A-fib (4) Pneumonia (5) UTI (urinary tract infection) (6) Anemia (7) Hypothyroidism Assessment - KIMO on CKD - Urinary tract infection. - Anemia- - Dehydration. - Cellulitis of Upper extremity - HTN Plan Hydrate- Anemia kumari- Avoid Nephrotoxics Per ID Allow CHANDA inhibitor to continue as long as renal function does not worsen. PICC line has been removed. Subjective ROS Limited/Unobtainable: No Constitutional: Reports: malaise, weakness Objective Objective Last 24 Hour Vital Signs Date Time Temp Pulse Resp B/P (MAP) Pulse Ox O2 Delivery O2 Flow Rate FiO2 05/23/19 09:32 86 149/59 05/23/19 09:32 86 149/59 05/23/19 07:46 86 17 97 Venturi Mask 8.0 40 89 17 93 05/23/19 07:36 93 Venturi Mask 8.0 40 05/23/19 04:00 97.8 96 19 149/59 (89) 98 05/23/19 04:00 84 05/23/19 00:15 77 20 96 Venturi Mask 8.0 40 76 20 92 05/23/19 00:00 97.5 78 20 141/57 (85) 98 05/23/19 00:00 73 05/22/19 21:36 89 160/53 05/22/19 21:00 Venturi Mask 8.0 05/22/19 20:00 89 05/22/19 20:00 98.1 89 20 160/53 (88) 91 05/22/19 19:45 91 Venturi Mask 8.0 40 05/22/19 19:43 80 22 97 Venturi Mask 8.0 40 83 22 91 05/22/19 16:00 98.1 85 24 141/73 (95) 96 05/22/19 16:00 97 05/22/19 14:50 82 22 100 Venturi Mask 8.0 40 61 24 94 05/22/19 14:00 74 05/22/19 12:00 97.5 70 22 141/56 (84) 97 Intake and Output 05/22/19 05/23/19 18:59 06:59 Output Total 400 ml 500 ml Balance -400 ml -500 ml Output Urine Total 400 ml 500 ml Laboratory Tests 12/27/19 10:30: White Blood Count 7.9, Red Blood Count 3.19L, Hemoglobin 9.3L, Hematocrit 28.6L , Mean Corpuscular Volume 90, Mean Corpuscular Hemoglobin 29.3, Mean Corpuscular Hemoglobin Concent 32.6, Red Cell Distribution Width 15.1H, Platelet Count 293, Mean Platelet Volume 4.2L, Neutrophils (%) (Auto) , Lymphocytes (%) (Auto) , Monocytes (%) (Auto) , Eosinophils (%) (Auto) , Basophils (%) (Auto) , Differential Total Cells Counted 100, Neutrophils % ( Manual) 90H, Lymphocytes % (Manual) 6L, Monocytes % (Manual) 3, Eosinophils % ( Manual) 1, Basophils % (Manual) 0, Band Neutrophils 0, Platelet Estimate Adequate, Platelet Morphology Normal, Anisocytosis 1+, Sodium Level 141, Potassium Level 3.9, Chloride Level 111H, Carbon Dioxide Level 19L, Anion Gap 11 , Blood Urea Nitrogen 36H, Creatinine 1.9H, Estimat Glomerular Filtration Rate , Glucose Level 104, Calcium Level 7.3L, Iron Level 56, Total Iron Binding Capacity 124L, Percent Iron Saturation 45, Unsaturated Iron Binding 68L, Total Bilirubin 0.3, Aspartate Amino Transf (AST/SGOT) 21, Alanine Aminotransferase ( ALT/SGPT) 18, Alkaline Phosphatase 69, Total Protein 5.2L, Albumin 1.7L, Globulin 3.5, Albumin/Globulin Ratio 0.5L, Carcinoembryonic Antigen [Pending] Height (Feet): 5 Height (Inches): 7.00 Weight (Pounds): 202 General Appearance: no apparent distress Cardiovascular: normal rate Respiratory/Chest: decreased breath sounds Abdomen: soft Reinier Mera MD May 23, 2019 11:59
[2019-05-23 12:00] VITALS: BP 130/55
--- NOTE | 2019-05-23 12:54 | Surgery Progress Note ---
Surgery Progress Note Subjective Additional Comments ill appearing on face mask no n/v/f/c labs reviewed and stable exam unchanged cellulitis improved dvt as per heme Objective Last 24 Hour Vital Signs Date Time Temp Pulse Resp B/P (MAP) Pulse Ox O2 Delivery O2 Flow Rate FiO2 05/23/19 09:32 86 149/59 05/23/19 09:32 86 149/59 05/23/19 07:46 86 17 97 Venturi Mask 8.0 40 89 17 93 05/23/19 07:36 93 Venturi Mask 8.0 40 05/23/19 04:00 97.8 96 19 149/59 (89) 98 05/23/19 04:00 84 05/23/19 00:15 77 20 96 Venturi Mask 8.0 40 76 20 92 05/23/19 00:00 97.5 78 20 141/57 (85) 98 05/23/19 00:00 73 05/22/19 21:36 89 160/53 05/22/19 21:00 Venturi Mask 8.0 05/22/19 20:00 89 05/22/19 20:00 98.1 89 20 160/53 (88) 91 05/22/19 19:45 91 Venturi Mask 8.0 40 05/22/19 19:43 80 22 97 Venturi Mask 8.0 40 83 22 91 05/22/19 16:00 98.1 85 24 141/73 (95) 96 05/22/19 16:00 97 05/22/19 14:50 82 22 100 Venturi Mask 8.0 40 61 24 94 05/22/19 14:00 74 I&O Intake and Output 05/22/19 05/23/19 19:00 07:00 Output Total 400 ml 500 ml Balance -400 ml -500 ml Output Urine Total 400 ml 500 ml Dressing: dry Wound: clean Cardiovascular: RSR Respiratory: clear Abdomen: soft, non-tender, present bowel sounds Extremities: edema, no tenderness, no cyanosis Laboratory Tests Test 05/23/19 10:30 White Blood Count 7.9 K/UL (4.8-10.8) Red Blood Count 3.19 M/UL (4.70-6.10) L Hemoglobin 9.3 G/DL (14.2-18.0) L Hematocrit 28.6 % (42.0-52.0) L Mean Corpuscular Volume 90 FL (80-99) Mean Corpuscular Hemoglobin 29.3 PG (27.0-31.0) Mean Corpuscular Hemoglobin Concent 32.6 G/DL (32.0-36.0) Red Cell Distribution Width 15.1 % (11.6-14.8) H Platelet Count 293 K/UL (150-450) Mean Platelet Volume 4.2 FL (6.5-10.1) L Neutrophils (%) (Auto) % (45.0-75.0) Lymphocytes (%) (Auto) % (20.0-45.0) Monocytes (%) (Auto) % (1.0-10.0) Eosinophils (%) (Auto) % (0.0-3.0) Basophils (%) (Auto) % (0.0-2.0) Differential Total Cells Counted 100 Neutrophils % (Manual) 90 % (45-75) H Lymphocytes % (Manual) 6 % (20-45) L Monocytes % (Manual) 3 % (1-10) Eosinophils % (Manual) 1 % (0-3) Basophils % (Manual) 0 % (0-2) Band Neutrophils 0 % (0-8) Platelet Estimate Adequate Platelet Morphology Normal Anisocytosis 1+ Sodium Level 141 MMOL/L (136-145) Potassium Level 3.9 MMOL/L (3.5-5.1) Chloride Level 111 MMOL/L (98-107) H Carbon Dioxide Level 19 MMOL/L (21-32) L Anion Gap 11 mmol/L (5-15) Blood Urea Nitrogen 36 mg/dL (7-18) H Creatinine 1.9 MG/DL (0.55-1.30) H Estimat Glomerular Filtration Rate mL/min (>60) Glucose Level 104 MG/DL (74-106) Calcium Level 7.3 MG/DL (8.5-10.1) L Iron Level 56 ug/dL (50-175) Total Iron Binding Capacity 124 ug/dL (250-450) L Percent Iron Saturation 45 % (15-50) Unsaturated Iron Binding 68 ug/dL (112-346) L Total Bilirubin 0.3 MG/DL (0.2-1.0) Aspartate Amino Transf (AST/SGOT) 21 U/L (15-37) Alanine Aminotransferase (ALT/SGPT) 18 U/L (12-78) Alkaline Phosphatase 69 U/L (46-116) Total Protein 5.2 G/DL (6.4-8.2) L Albumin 1.7 G/DL (3.4-5.0) L Globulin 3.5 g/dL Albumin/Globulin Ratio 0.5 (1.0-2.7) L Carcinoembryonic Antigen Pending Plan Problems: (1) Cellulitis of upper extremity Assessment & Plan: 84M with RUE cellulitis, edema, erythema. no drainage. has RUE picc line recommend removal of picc. removed at bedside by myself on 05/18. pressure held, hemostasis noted, dressings applied. cath tip sent for cultures DVT duplex studies with acute thrombus IV Abx as per ID UA pending Cx results keep RUE elevated on pillows okay for diet AM labs anticoagulation off load pressure for dti noted cellulitis and edema improved will follow with recs thank you (2) Cellulitis Assessment & Plan: Pt presented on admission with reabsorbing blister lateral R heel. Base of injury indurated with delineated margins(L)4cm x (W)3cm.Non- blanching erythema Sacrum ,R and L buttocks(L)8.5cm x (W)9cm, with a partial thickness pressure injury noted to L buttocks. Base of wound is moist and viable (L)2.3cm x (W)3cm. Area around wound tender when minimally palpated. Pt noted to be wearing splint L foot. Per pt he fractured foot a few weeks ago. Splint removed to assess skin integrity. L heel and malleoli are pink and blanchable.Cavilon Skin Barrier applied to L heel and malleoli and each area covered with Optifoam drsg. Splint reapplied. No other skin concerns noted. Tx.Plan: Apply Moisture Barrier to Buttocks. Cover with Optifoam drsg. Changee very 3 days and prn. Apply Cavilon Skin Barrier to both heels. Cover each heel with Optifoam drsg. Change every 7 days and prn APM/SCOOBY Mattress overlay. Reposition at least every 2hours or as tolerated. Off-load heels with pillow. Bennett Logan May 23, 2019 12:54
--- NOTE | 2019-05-23 14:20 | Consultation ---
History of Present Illness General Chief Complaint: General Complaint Reason for Consultation: PICC line infection Present Illness Allergies: Coded Allergies: No Known Allergies (Unverified , 05/18/19) Medication History Scheduled Cran/Vitc/Mannose/Inulin/Brom (Uti-Stat Liquid), 30 ML PO BID, (Reported) Cranberry Fruit Concentrate (Cranberry), 900 MG PO BID, (Reported) Docusate Sodium* (Colace*), 100 MG ORAL DAILY, (Reported) Enoxaparin* (Lovenox*), 40 MG SUBQ DAILY, (Reported) Finasteride* (Proscar*), 5 MG ORAL DAILY, (Reported) Lisinopril* (Lisinopril*), 2.5 MG ORAL DAILY, (Reported) Tamsulosin HCl (Flomax), 0.4 MG ORAL BEDTIME, (Reported) Scheduled PRN Acetaminophen (Tylenol), 650 MG PO Q4HR PRN for Mild Pain/Temp > 100.5, ( Reported) Acetaminophen* (Tylenol Extra Strength*), 1,000 MG ORAL Q4H PRN for Moderate Pain (Pain Scale 4-6), (Reported) Bisacodyl (Dulcolax), 10 MG RC DAILY PRN for Constipation, (Reported) Hydrocodone Bit/Acetaminophen 5-325* ([place] 5-325*), 1 TAB ORAL Q6HR PRN for Severe Pain (Pain Scale 7-10), (Reported) Magnesium Hydroxide* (Milk Of Magnesia*), 30 ML ORAL QHS PRN for Constipation, ( Reported) Na Phos,M-B/Na Phos,Di-Ba* (Fleet Enema*), 133 ML RECTAL DAILY PRN for Constipation, (Reported) Patient History Healthcare decision maker Resuscitation status Full Code Advanced Directive on File No Physical Exam Last 24 Hour Vital Signs Date Time Temp Pulse Resp B/P (MAP) Pulse Ox O2 Delivery O2 Flow Rate FiO2 05/23/19 13:03 82 18 99 Venturi Mask 8.0 40 79 16 96 05/23/19 12:00 96.7 69 22 130/55 (80) 94 05/23/19 12:00 63 05/23/19 09:32 86 149/59 05/23/19 09:32 86 149/59 05/23/19 09:00 Venturi Mask 8.0 05/23/19 08:00 97.5 86 16 141/71 (94) 93 05/23/19 08:00 80 05/23/19 07:46 86 17 97 Venturi Mask 8.0 40 89 17 93 05/23/19 07:36 93 Venturi Mask 8.0 40 05/23/19 04:00 97.8 96 19 149/59 (89) 98 05/23/19 04:00 84 05/23/19 00:15 77 20 96 Venturi Mask 8.0 40 76 20 92 05/23/19 00:00 97.5 78 20 141/57 (85) 98 05/23/19 00:00 73 05/22/19 21:36 89 160/53 05/22/19 21:00 Venturi Mask 8.0 05/22/19 20:00 89 05/22/19 20:00 98.1 89 20 160/53 (88) 91 05/22/19 19:45 91 Venturi Mask 8.0 40 05/22/19 19:43 80 22 97 Venturi Mask 8.0 40 83 22 91 05/22/19 16:00 98.1 85 24 141/73 (95) 96 05/22/19 16:00 97 05/22/19 14:50 82 22 100 Venturi Mask 8.0 40 61 24 94 Intake and Output 05/22/19 05/23/19 19:00 07:00 Output Total 400 ml 500 ml Balance -400 ml -500 ml Output Urine Total 400 ml 500 ml Laboratory Tests Test 05/23/19 10:30 White Blood Count 7.9 K/UL (4.8-10.8) Red Blood Count 3.19 M/UL (4.70-6.10) L Hemoglobin 9.3 G/DL (14.2-18.0) L Hematocrit 28.6 % (42.0-52.0) L Mean Corpuscular Volume 90 FL (80-99) Mean Corpuscular Hemoglobin 29.3 PG (27.0-31.0) Mean Corpuscular Hemoglobin Concent 32.6 G/DL (32.0-36.0) Red Cell Distribution Width 15.1 % (11.6-14.8) H Platelet Count 293 K/UL (150-450) Mean Platelet Volume 4.2 FL (6.5-10.1) L Neutrophils (%) (Auto) % (45.0-75.0) Lymphocytes (%) (Auto) % (20.0-45.0) Monocytes (%) (Auto) % (1.0-10.0) Eosinophils (%) (Auto) % (0.0-3.0) Basophils (%) (Auto) % (0.0-2.0) Differential Total Cells Counted 100 Neutrophils % (Manual) 90 % (45-75) H Lymphocytes % (Manual) 6 % (20-45) L Monocytes % (Manual) 3 % (1-10) Eosinophils % (Manual) 1 % (0-3) Basophils % (Manual) 0 % (0-2) Band Neutrophils 0 % (0-8) Platelet Estimate Adequate Platelet Morphology Normal Anisocytosis 1+ Sodium Level 141 MMOL/L (136-145) Potassium Level 3.9 MMOL/L (3.5-5.1) Chloride Level 111 MMOL/L (98-107) H Carbon Dioxide Level 19 MMOL/L (21-32) L Anion Gap 11 mmol/L (5-15) Blood Urea Nitrogen 36 mg/dL (7-18) H Creatinine 1.9 MG/DL (0.55-1.30) H Estimat Glomerular Filtration Rate mL/min (>60) Glucose Level 104 MG/DL (74-106) Calcium Level 7.3 MG/DL (8.5-10.1) L Iron Level 56 ug/dL (50-175) Total Iron Binding Capacity 124 ug/dL (250-450) L Percent Iron Saturation 45 % (15-50) Unsaturated Iron Binding 68 ug/dL (112-346) L Total Bilirubin 0.3 MG/DL (0.2-1.0) Aspartate Amino Transf (AST/SGOT) 21 U/L (15-37) Alanine Aminotransferase (ALT/SGPT) 18 U/L (12-78) Alkaline Phosphatase 69 U/L (46-116) Total Protein 5.2 G/DL (6.4-8.2) L Albumin 1.7 G/DL (3.4-5.0) L Globulin 3.5 g/dL Albumin/Globulin Ratio 0.5 (1.0-2.7) L Carcinoembryonic Antigen Pending Height (Feet): 5 Height (Inches): 7.00 Weight (Pounds): 202 Medications Current Medications Medications (Trade) Dose Ordered Sig/Phillip Route PRN Reason Start Time Stop Time Status Last Admin Dose Admin Acetaminophen (Tylenol) 500 mg Q4H PRN ORAL Mild Pain/Temp > 100.5 05/20/19 20:30 06/19/19 20:29 Acetaminophen/ Hydrocodone Bitart ([place] 5/325) 1 tab Q6H PRN ORAL For Pain 05/20/19 20:30 05/27/19 20:29 Amiodarone HCl (Cordarone) 200 mg EVERY 12 HOURS ORAL 05/22/19 21:00 06/21/19 20:59 05/23/19 09:32 Amlodipine Besylate (Norvasc) 5 mg DAILY ORAL 05/21/19 09:00 06/20/19 08:59 05/23/19 09:32 Apixaban (Eliquis) 2.5 mg BID ORAL 05/21/19 09:00 06/20/19 08:59 05/23/19 09:31 Docusate Sodium (Colace) 100 mg TID ORAL 05/21/19 18:00 06/20/19 08:59 05/23/19 09:31 Dronabinol (Marinol) 2.5 mg BID ORAL 05/22/19 18:00 06/21/19 17:59 05/23/19 09:32 Finasteride (Proscar) 5 mg DAILY ORAL 05/21/19 09:00 06/20/19 08:59 05/23/19 09:32 Ipratropium [place] (Atrovent) 500 mcg Q4H PRN HHN Shortness of Breath 05/20/19 20:30 05/25/19 20:29 05/21/19 10:45 Ipratropium [place] (Atrovent) 500 mcg Q6HRT HHN 05/21/19 13:00 05/26/19 12:59 05/23/19 12:53 Levofloxacin 50 ml @ 50 mls/hr Q24H IVPB 05/24/19 12:00 05/31/19 11:59 Metoprolol Tartrate (Lopressor) 25 mg Q12HR ORAL 05/20/19 21:00 06/19/19 20:59 05/23/19 09:32 Mirtazapine (Remeron) 15 mg BEDTIME ORAL 05/22/19 21:00 06/21/19 20:59 05/22/19 21:36 Sodium Chloride 1,000 ml @ 75 mls/hr [id number] IV 05/20/19 20:30 06/19/19 20:29 05/23/19 01:51 Tamsulosin HCl (Flomax) 0.4 mg BEDTIME ORAL 05/20/19 21:00 06/19/19 20:59 05/22/19 21:35 Vancomycin HCl (Vanco rx to dose) 1 ea DAILY PRN MISC Per rx protocol 05/20/19 20:30 06/19/19 20:29 Assessment/Plan Assessment/Plan: Hematology Consultation MARQUITA MD: Mindy Hendrickson RFC: DVT upper arm DOS: 05/23/19 HPI 84-year-old male presents ED for evaluation. Brought in by EMS from custodial facility. Noted to have redness and swelling around his PICC line site on right upper extremity. Noticed by nursing staff today. States he was receiving antibiotics at another hospital for a UTI. Denies fevers or chills. Denies pain to the arm. States he has been short of breath. Has been wheezing. States he has been short of breath for the last 2 weeks. Denies chest pain. No other aggravating relieving factors. Denies any other associated symptoms, has been seen by various consultants, dvt of upper right arm axillary vein noted and heme consulted. Coded Allergies: No Known Allergies (Unverified , 05/18/19) Patient History Past Medical History: HTN Past Surgical History: none Pertinent Family History: none Social History: Denies: smoking, alcohol use, drug use Immunizations: UTD Reviewed Nursing Documentation: PMH: Agreed; PSxH: Agreed Nursing Documentation-PMH Past Medical History: No History, Except For Hx Hypertension: Yes ROS General: Denies fatigue, fever, chills, weight loss; + weight gain as above HENT: Denies oral sores, neck masses, nasal d/c, hearing problems Vison: Denies change in vision, eye pain, redness, discharge Cardiac: As above Pulmonary: As above GI: Denies heart burn, swallowing difficulty, abdominal pain, diarrhea, constipation : As per HPI Neuro: Denies seizure, weakness, numbness Endo: Denies heat/cold intolerance, weight changes, polyuria, polydipsia Heme/Onc: Denies unusual bleeding, bruising, clotting MSK: Denies join pain, swelling, muscle aches Mental Health: Denies anxiety, depression, mood changes PE: Vitals: reviewed General Appearance: NAD HEENT: normocephalic, atraumatic Neck: non-tender, normal alignment Respiratory/Chest: normal breath sounds bilaterally Cardiovascular/Chest: normal peripheral pulses, normal rate Abdomen: normal bowel sounds, soft, nontender Extremities: normal range of motion ++ right arm swelling Assessment and Recs: # Right upper arm extremity axillary vein dvt --> agree to continue eliquis --> as per cards low dose eliquis --> continue for total of minimum of 3 months --> rescan arm in 3 mo # Anemia of chronic disease due to underlying chronic medical issues, multifactorial v Gi bleed --> Anemia workup has been ordered, rule out gi bleed --> No evidence of hemolysis is noted, peripheral smear has been reviewed. --> Hgb goal >7. Transfuse prn. --> Epogen or iron at this time is not particularly indicated --> Medications have been reviewed --> low threshold for gi evaluation in case has occult + # Cellulitis of upper extremity, likely picc line infection --> as per id on ax --> picc off # Renal insufficiency --> per Dr. Mera # Pneumonia --> sp abx # Dehydration. --> goal of euvolemia # Paroxysmal Atrial fibrillation with rapid ventricular response was on amiodarone gtt, now in sinus rhythm. --> per cards On PO amiodarone 200 bid, Lopressor 25 bid and Eliquis 2.5 bid # Dysphagia with ng tube The timing of this note does not necessarily reflect the time of the patient was seen. Greatly appreciate consultation. Suleman Addison MD May 23, 2019 14:20
[2019-05-23 16:00] VITALS: BP 130/62
--- NOTE | 2019-05-23 18:27 | Diagnostic Imaging Report ---
Indications: Chest pain, shortness of breath Technique: IV administration 4.8 mCi 99m technetium macroaggregated albumin. Images obtained over the lungs in multiple projections. Previously, patient inhaled 35 mCi aerosolized 99M technetium DTPA. Images obtained over the lungs in multiple projections Comparison: Reference made to chest radiograph dated 05/18/2019 Findings: Poor quality tracer uptake on the aerosol scans is noted. Ventilation images demonstrate heterogeneous uptake but no definite focal segmental or or subsegmental perfusion defects are noted. No definite ventilation/perfusion mismatch Impression: Findings are deemed low probability for pulmonary embolus This agrees with the preliminary interpretation provided overnight by [facility] teleradiology service.
[2019-05-23 20:00] VITALS: BP 139/58
[2019-05-23] MEDS: Tamsulosin 0.4mg cap ORAL SCH (21:02)
[2019-05-24] VITALS: BP 132/60
[2019-05-24] MEDS: Ipratropium 0.02% Inh Soln 2.5ml UD HHN SCH ×4 (01:31→19:55)
--- NOTE | 2019-05-24 02:15 | Progress Note ---
DATE: 05/23/2019 SUBJECTIVE: The patient now has PICC line infection. More today. Poor appetite. MENTAL STATUS EXAMINATION: The patient is confused, disoriented. Mood is anxious. Affect is constricted, congruent with mood. Thought process is concrete. Thought content, no suicidal or homicidal ideation. Cognition is impaired. Insight and judgement is impaired. ASSESSMENT: 1. Failure to thrive. 2. Dementia. PLAN: Continue current medications. Piter Pedraza M.D. DR: Mehreen JOB#: [id number] CC:
[2019-05-24 04:00] VITALS: BP 133/67
[2019-05-24 08:00] VITALS: BP 172/73
[2019-05-24] MEDS ORDERED: Vancomycin 1gm/D5W 275ml IVPB SCH ×2 (08:00)
--- NOTE | 2019-05-24 08:18 | General Progress Note ---
Assessment/Plan Problem List: (1) SOB (shortness of breath) ICD Codes: R06.02 - Shortness of breath SNOMED: 978385806 (2) Cellulitis ICD Codes: L03.90 - Cellulitis, unspecified SNOMED: 481554988 (3) Cellulitis of upper extremity ICD Codes: L03.119 - Cellulitis of unspecified part of limb SNOMED: 115726765 Qualifiers: Qualified Codes: L03.113 - Cellulitis of right upper limb (4) Renal insufficiency ICD Codes: N28.9 - Disorder of kidney and ureter, unspecified SNOMED: 929490885, 190195397 (5) Renal failure (ARF), acute on chronic ICD Codes: N17.9 - Acute kidney failure, unspecified; N18.9 - Chronic kidney disease, unspecified SNOMED: 714399528 (6) Anemia ICD Codes: D64.9 - Anemia, unspecified SNOMED: 367202867 (7) Hypothyroidism ICD Codes: E03.9 - Hypothyroidism, unspecified SNOMED: 64760469 (8) UTI (urinary tract infection) ICD Codes: N39.0 - Urinary tract infection, site not specified SNOMED: 04606665 Status: progressing, unchanged Assessment/Plan: still on oxygen poor appetite so consulted dr carrion cellulitis improving edema reviewed chart and labs and meds pna abx per id dvt.treatment per dr elkins Subjective ROS Limited/Unobtainable: Yes Allergies: Coded Allergies: No Known Allergies (Unverified , 05/18/19) Objective Last 24 Hour Vital Signs Date Time Temp Pulse Resp B/P (MAP) Pulse Ox O2 Delivery O2 Flow Rate FiO2 05/24/19 04:00 97.9 88 24 133/67 (89) 92 05/24/19 04:00 72 05/24/19 01:31 68 20 95 Venturi Mask 8.0 40 69 25 90 05/24/19 00:00 63 05/24/19 00:00 97.9 69 24 132/60 (84) 92 05/23/19 21:02 77 139/58 05/23/19 21:00 Venturi Mask 8.0 05/23/19 20:00 97.7 77 20 139/58 (85) 94 05/23/19 20:00 80 12/27/19 18:50 91 Venturi Mask 8.0 40 05/23/19 18:50 64 18 96 Venturi Mask 8.0 40 59 18 91 05/23/19 16:00 97.5 78 18 130/62 (84) 92 05/23/19 16:00 83 05/23/19 13:03 82 18 99 Venturi Mask 8.0 40 79 16 96 05/23/19 12:00 96.7 69 22 130/55 (80) 94 05/23/19 12:00 63 05/23/19 09:32 86 149/59 05/23/19 09:32 86 149/59 05/23/19 09:00 Venturi Mask 8.0 Intake and Output 05/23/19 05/24/19 19:00 07:00 Output Total 500 ml 400 ml Balance -500 ml -400 ml Output Urine Total 500 ml 400 ml # Voids 1 Laboratory Tests 05/23/19 10:30: White Blood Count 7.9, Red Blood Count 3.19L, Hemoglobin 9.3L, Hematocrit 28.6L , Mean Corpuscular Volume 90, Mean Corpuscular Hemoglobin 29.3, Mean Corpuscular Hemoglobin Concent 32.6, Red Cell Distribution Width 15.1H, Platelet Count 293, Mean Platelet Volume 4.2L, Neutrophils (%) (Auto) , Lymphocytes (%) (Auto) , Monocytes (%) (Auto) , Eosinophils (%) (Auto) , Basophils (%) (Auto) , Differential Total Cells Counted 100, Neutrophils % ( Manual) 90H, Lymphocytes % (Manual) 6L, Monocytes % (Manual) 3, Eosinophils % ( Manual) 1, Basophils % (Manual) 0, Band Neutrophils 0, Platelet Estimate Adequate, Platelet Morphology Normal, Anisocytosis 1+, Sodium Level 141, Potassium Level 3.9, Chloride Level 111H, Carbon Dioxide Level 19L, Anion Gap 11 , Blood Urea Nitrogen 36H, Creatinine 1.9H, Estimat Glomerular Filtration Rate , Glucose Level 104, Calcium Level 7.3L, Iron Level 56, Total Iron Binding Capacity 124L, Percent Iron Saturation 45, Unsaturated Iron Binding 68L, Total Bilirubin 0.3, Aspartate Amino Transf (AST/SGOT) 21, Alanine Aminotransferase ( ALT/SGPT) 18, Alkaline Phosphatase 69, Total Protein 5.2L, Albumin 1.7L, Globulin 3.5, Albumin/Globulin Ratio 0.5L, Carcinoembryonic Antigen [Pending] 05/24/19 06:00: Urine Eosinophils None seen 05/24/19 06:15: Random Vancomycin Level 16.0 Height (Feet): 5 Height (Inches): 7.00 Weight (Pounds): 200 Cardiovascular: normal rate Respiratory/Chest: lungs clear Abdomen: soft Joslyn Wiggins MD May 24, 2019 08:18
--- NOTE | 2019-05-24 08:19 | Pulmonology Progress Note ---
Assessment/Plan Assessment/Plan IMPRESSION AND PLAN: 1. Pneumonia. Bilateral upper lobe. 2. Cellulitis. 3. History of COPD. 4. Hypertension. 5. Afib with RVR; rate controlled 6. No evidence for PE DISCUSSION: 1. No longer in a fib after amiodarone; transferred out of ICU 2. Agree with present management and care. 3. Continue medications and HHN with atrovent only 4. Reviewed Chest CT. 5. 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 6. continue antibiotics Arsen Whittaker M.D. Subjective Interval Events: Feeling better; VQ scan negative for PE Constitutional: Reports: no symptoms HEENT: Repors: no symptoms Respiratory: Reports: no symptoms Cardiovascular: Reports: no symptoms Gastrointestinal/Abdominal: Reports: no symptoms Genitourinary: Reports: no symptoms Allergies: Coded Allergies: No Known Allergies (Unverified , 05/18/19) Objective Last 24 Hour Vital Signs Date Time Temp Pulse Resp B/P (MAP) Pulse Ox O2 Delivery O2 Flow Rate FiO2 05/24/19 04:00 97.9 88 24 133/67 (89) 92 05/24/19 04:00 72 05/24/19 01:31 68 20 95 Venturi Mask 8.0 40 69 25 90 05/24/19 00:00 63 05/24/19 00:00 97.9 69 24 132/60 (84) 92 05/23/19 21:02 77 139/58 05/23/19 21:00 Venturi Mask 8.0 05/23/19 20:00 97.7 77 20 139/58 (85) 94 05/23/19 20:00 80 05/23/19 18:50 91 Venturi Mask 8.0 40 05/23/19 18:50 64 18 96 Venturi Mask 8.0 40 59 18 91 05/23/19 16:00 97.5 78 18 130/62 (84) 92 05/23/19 16:00 83 05/23/19 13:03 82 18 99 Venturi Mask 8.0 40 79 16 96 05/23/19 12:00 96.7 69 22 130/55 (80) 94 05/23/19 12:00 63 05/23/19 09:32 86 149/59 05/23/19 09:32 86 149/59 05/23/19 09:00 Venturi Mask 8.0 Intake and Output 05/23/19 05/24/19 19:00 07:00 Output Total 500 ml 400 ml Balance -500 ml -400 ml Output Urine Total 500 ml 400 ml # Voids 1 General Appearance: no acute distress HEENT: normocephalic Respiratory/Chest: chest wall non-tender, lungs clear Cardiovascular: normal peripheral pulses, normal rate Abdomen: normal bowel sounds Laboratory Tests 05/23/19 10:30: White Blood Count 7.9, Red Blood Count 3.19L, Hemoglobin 9.3L, Hematocrit 28.6L , Mean Corpuscular Volume 90, Mean Corpuscular Hemoglobin 29.3, Mean Corpuscular Hemoglobin Concent 32.6, Red Cell Distribution Width 15.1H, Platelet Count 293, Mean Platelet Volume 4.2L, Neutrophils (%) (Auto) , Lymphocytes (%) (Auto) , Monocytes (%) (Auto) , Eosinophils (%) (Auto) , Basophils (%) (Auto) , Differential Total Cells Counted 100, Neutrophils % ( Manual) 90H, Lymphocytes % (Manual) 6L, Monocytes % (Manual) 3, Eosinophils % ( Manual) 1, Basophils % (Manual) 0, Band Neutrophils 0, Platelet Estimate Adequate, Platelet Morphology Normal, Anisocytosis 1+, Sodium Level 141, Potassium Level 3.9, Chloride Level 111H, Carbon Dioxide Level 19L, Anion Gap 11 , Blood Urea Nitrogen 36H, Creatinine 1.9H, Estimat Glomerular Filtration Rate , Glucose Level 104, Calcium Level 7.3L, Iron Level 56, Total Iron Binding Capacity 124L, Percent Iron Saturation 45, Unsaturated Iron Binding 68L, Total Bilirubin 0.3, Aspartate Amino Transf (AST/SGOT) 21, Alanine Aminotransferase ( ALT/SGPT) 18, Alkaline Phosphatase 69, Total Protein 5.2L, Albumin 1.7L, Globulin 3.5, Albumin/Globulin Ratio 0.5L, Carcinoembryonic Antigen [Pending] 05/24/19 06:00: Urine Eosinophils None seen 05/24/19 06:15: Random Vancomycin Level 16.0 Current Medications Medications (Trade) Dose Ordered Sig/Phillip Route PRN Reason Start Time Stop Time Status Last Admin Dose Admin Acetaminophen (Tylenol) 500 mg Q4H PRN ORAL Mild Pain/Temp > 100.5 05/20/19 20:30 06/19/19 20:29 Acetaminophen/ Hydrocodone Bitart ([place] 5/325) 1 tab Q6H PRN ORAL For Pain 05/20/19 20:30 05/27/19 20:29 Amiodarone HCl (Cordarone) 200 mg EVERY 12 HOURS ORAL 05/22/19 21:00 06/21/19 20:59 05/23/19 21:02 Amlodipine Besylate (Norvasc) 5 mg DAILY ORAL 05/21/19 09:00 06/20/19 08:59 05/23/19 09:32 Apixaban (Eliquis) 2.5 mg BID ORAL 05/21/19 09:00 06/20/19 08:59 05/23/19 18:19 Docusate Sodium (Colace) 100 mg TID ORAL 05/21/19 18:00 06/20/19 08:59 05/23/19 18:19 Dronabinol (Marinol) 2.5 mg BID ORAL 05/22/19 18:00 06/21/19 17:59 05/23/19 18:19 Finasteride (Proscar) 5 mg DAILY ORAL 05/21/19 09:00 06/20/19 08:59 05/23/19 09:32 Ipratropium [place] (Atrovent) 500 mcg Q4H PRN HHN Shortness of Breath 05/20/19 20:30 05/25/19 20:29 05/21/19 10:45 Ipratropium [place] (Atrovent) 500 mcg Q6HRT HHN 05/21/19 13:00 05/26/19 12:59 05/24/19 01:31 Levofloxacin 50 ml @ 50 mls/hr Q24H IVPB 05/24/19 12:00 05/31/19 11:59 Metoprolol Tartrate (Lopressor) 25 mg Q12HR ORAL 05/20/19 21:00 06/19/19 20:59 05/23/19 21:02 Mirtazapine (Remeron) 15 mg BEDTIME ORAL 05/22/19 21:00 06/21/19 20:59 05/23/19 21:01 Sodium Chloride 1,000 ml @ 75 mls/hr [id number] IV 05/20/19 20:30 06/19/19 20:29 05/24/19 04:24 Tamsulosin HCl (Flomax) 0.4 mg BEDTIME ORAL 05/20/19 21:00 06/19/19 20:59 05/23/19 21:02 Vancomycin HCl (Vanco rx to dose) 1 ea DAILY PRN MISC Per rx protocol 05/20/19 20:30 06/19/19 20:29 Vancomycin HCl 1 gm/Dextrose 275 ml @ 183.708 mls/hr ONCE IVPB 05/24/19 08:00 05/24/19 10:00 Arsen Whittaker MD May 24, 2019 08:19
--- NOTE | 2019-05-24 08:39 | General Progress Note ---
Assessment/Plan Problem List: (1) Dysphagia ICD Codes: R13.10 - Dysphagia, unspecified SNOMED: 86263246, 763960520 (2) Anemia ICD Codes: D64.9 - Anemia, unspecified SNOMED: 568199371 (3) Hypothyroidism ICD Codes: E03.9 - Hypothyroidism, unspecified SNOMED: 57934122 (4) Thrombus ICD Codes: I82.90 - Acute embolism and thrombosis of unspecified vein SNOMED: 65575483, 09498658, 943895463, 188110119 (5) A-fib ICD Codes: I48.91 - Unspecified atrial fibrillation SNOMED: 39565875 Status: progressing, unchanged Assessment/Plan: NGTF VQ scan r/o PE>> NEG fu hematology for DVT management on Eliquis will fu Subjective ROS Limited/Unobtainable: Yes Allergies: Coded Allergies: No Known Allergies (Unverified , 05/18/19) Objective Last 24 Hour Vital Signs Date Time Temp Pulse Resp B/P (MAP) Pulse Ox O2 Delivery O2 Flow Rate FiO2 05/24/19 08:31 94 Venturi Mask 8.0 40 05/24/19 08:31 79 18 94 Venturi Mask 8.0 40 05/24/19 04:00 97.9 88 24 133/67 (89) 92 05/24/19 04:00 72 05/24/19 01:31 68 20 95 Venturi Mask 8.0 40 69 25 90 05/24/19 00:00 63 05/24/19 00:00 97.9 69 24 132/60 (84) 92 05/23/19 21:02 77 139/58 05/23/19 21:00 Venturi Mask 8.0 05/23/19 20:00 97.7 77 20 139/58 (85) 94 05/23/19 20:00 80 05/23/19 18:50 91 Venturi Mask 8.0 40 05/23/19 18:50 64 18 96 Venturi Mask 8.0 40 59 18 91 05/23/19 16:00 97.5 78 18 130/62 (84) 92 05/23/19 16:00 83 05/23/19 13:03 82 18 99 Venturi Mask 8.0 40 79 16 96 05/23/19 12:00 96.7 69 22 130/55 (80) 94 05/23/19 12:00 63 05/23/19 09:32 86 149/59 05/23/19 09:32 86 149/59 05/23/19 09:00 Venturi Mask 8.0 Intake and Output 05/23/19 05/24/19 19:00 07:00 Output Total 500 ml 400 ml Balance -500 ml -400 ml Output Urine Total 500 ml 400 ml # Voids 1 Laboratory Tests 05/23/19 10:30: White Blood Count 7.9, Red Blood Count 3.19L, Hemoglobin 9.3L, Hematocrit 28.6L , Mean Corpuscular Volume 90, Mean Corpuscular Hemoglobin 29.3, Mean Corpuscular Hemoglobin Concent 32.6, Red Cell Distribution Width 15.1H, Platelet Count 293, Mean Platelet Volume 4.2L, Neutrophils (%) (Auto) , Lymphocytes (%) (Auto) , Monocytes (%) (Auto) , Eosinophils (%) (Auto) , Basophils (%) (Auto) , Differential Total Cells Counted 100, Neutrophils % ( Manual) 90H, Lymphocytes % (Manual) 6L, Monocytes % (Manual) 3, Eosinophils % ( Manual) 1, Basophils % (Manual) 0, Band Neutrophils 0, Platelet Estimate Adequate, Platelet Morphology Normal, Anisocytosis 1+, Sodium Level 141, Potassium Level 3.9, Chloride Level 111H, Carbon Dioxide Level 19L, Anion Gap 11 , Blood Urea Nitrogen 36H, Creatinine 1.9H, Estimat Glomerular Filtration Rate , Glucose Level 104, Calcium Level 7.3L, Iron Level 56, Total Iron Binding Capacity 124L, Percent Iron Saturation 45, Unsaturated Iron Binding 68L, Total Bilirubin 0.3, Aspartate Amino Transf (AST/SGOT) 21, Alanine Aminotransferase ( ALT/SGPT) 18, Alkaline Phosphatase 69, Total Protein 5.2L, Albumin 1.7L, Globulin 3.5, Albumin/Globulin Ratio 0.5L, Carcinoembryonic Antigen [Pending] 05/24/19 06:00: Urine Eosinophils None seen 05/24/19 06:15: Random Vancomycin Level 16.0 Height (Feet): 5 Height (Inches): 7.00 Weight (Pounds): 200 General Appearance: alert EENT: normal ENT inspection Neck: supple Cardiovascular: tachycardia Respiratory/Chest: decreased breath sounds Abdomen: normal bowel sounds, non tender, soft Edema: 3+ Leg (R) Valentino Lino MD May 24, 2019 08:39
[2019-05-24] MEDS: Amiodarone 200mg tab ORAL SCH ×2 (08:58→21:00)
[2019-05-24] MEDS: Eliquis 2.5mg tablet ORAL SCH ×2 (08:59→18:07)
[2019-05-24] MEDS: Dronabinol 2.5mg Cap ORAL SCH ×2 (08:59→18:07)
[2019-05-24] MEDS: Docusate 100mg cap ORAL SCH ×3 (08:59→18:07)
[2019-05-24 12:00] VITALS: BP 137/56
--- NOTE | 2019-05-24 14:11 | Nephrology Progress Note ---
Assessment/Plan Problem List: (1) Renal failure (ARF), acute on chronic (2) Cellulitis of upper extremity (3) A-fib (4) Pneumonia (5) UTI (urinary tract infection) (6) Anemia (7) Hypothyroidism Assessment - KIMO on CKD - Urinary tract infection. - Anemia- - Dehydration. - Cellulitis of Upper extremity - HTN Plan Hydrate- Anemia kumari- Avoid Nephrotoxics Per ID Allow CHANDA inhibitor to continue as long as renal function does not worsen. PICC line has been removed. Subjective ROS Limited/Unobtainable: No Constitutional: Reports: malaise, weakness Objective Objective Last 24 Hour Vital Signs Date Time Temp Pulse Resp B/P (MAP) Pulse Ox O2 Delivery O2 Flow Rate FiO2 05/24/19 12:36 67 18 94 Venturi Mask 8.0 40 65 20 93 05/24/19 12:00 97.7 65 24 137/56 (83) 93 05/24/19 12:00 52 05/24/19 08:59 79 172/73 05/24/19 08:58 79 172/73 05/24/19 08:32 Venturi Mask 8.0 05/24/19 08:31 94 Venturi Mask 8.0 40 05/24/19 08:31 79 18 94 Venturi Mask 8.0 40 05/24/19 08:31 61 18 96 Venturi Mask 8.0 40 79 18 94 05/24/19 08:00 67 05/24/19 08:00 96.9 87 22 172/73 (106) 94 05/24/19 04:00 97.9 88 24 133/67 (89) 92 05/24/19 04:00 72 05/24/19 01:31 68 20 95 Venturi Mask 8.0 40 69 25 90 05/24/19 00:00 63 05/24/19 00:00 97.9 69 24 132/60 (84) 92 05/23/19 21:02 77 139/58 05/23/19 21:00 Venturi Mask 8.0 05/23/19 20:00 97.7 77 20 139/58 (85) 94 05/23/19 20:00 80 05/23/19 18:50 91 Venturi Mask 8.0 40 05/23/19 18:50 64 18 96 Venturi Mask 8.0 40 59 18 91 05/23/19 16:00 97.5 78 18 130/62 (84) 92 05/23/19 16:00 83 Intake and Output 05/23/19 05/24/19 19:00 07:00 Output Total 500 ml 400 ml Balance -500 ml -400 ml Output Urine Total 500 ml 400 ml # Voids 1 Laboratory Tests 05/24/19 06:00: Urine Eosinophils None seen 05/24/19 06:15: Random Vancomycin Level 16.0 Height (Feet): 5 Height (Inches): 7.00 Weight (Pounds): 200 General Appearance: no apparent distress, lethargic Cardiovascular: normal rate Respiratory/Chest: decreased breath sounds Abdomen: distended Reinier Mera MD May 24, 2019 14:11
--- NOTE | 2019-05-24 15:18 | Infectious Diseases Prog Note ---
Assessment/Plan Assessment/Plan 84 yo male with PMHx of HTN who was sent to the ED on 05/18/19 from his intermediate for possible picc line infection. Swelling around PICC line Minimal to no erythema and no purulent drainage Not likely to be infected Blood Cx 05/18/19 - NGTD PICC Tip Cx 05/18/19 - NGTD PICC line removed 05/18/19 No Leukocytosis No fever OM - Let foot On Vancomycin at nursing End date early May PNA on 8L NC CXR - Some LLL Atelectasis vs PNA, Nodules CT 05/20/19 - Bilateral upper lobe infiltrates worse on the right. Consider pneumonia. Bilateral pleural effusions moderate in size HTN PLAN - Continue Levofloxacin #2/ - Continue Vancomycin per pharmacy - End date per intermediate MD - Monitor CBC and Temps Thank you for this consult. [facility] will continue to follow the patient with you during this hospitalization. Subjective Allergies: Coded Allergies: No Known Allergies (Unverified , 05/18/19) Subjective afebrile no leukocytosis Objective Vital Signs Last 24 Hour Vital Signs Date Time Temp Pulse Resp B/P (MAP) Pulse Ox O2 Delivery O2 Flow Rate FiO2 05/24/19 12:36 67 18 94 Venturi Mask 8.0 40 65 20 93 05/24/19 12:00 97.7 65 24 137/56 (83) 93 05/24/19 12:00 52 05/24/19 08:59 79 172/73 05/24/19 08:58 79 172/73 05/24/19 08:32 Venturi Mask 8.0 05/24/19 08:31 94 Venturi Mask 8.0 40 05/24/19 08:31 79 18 94 Venturi Mask 8.0 40 05/24/19 08:31 61 18 96 Venturi Mask 8.0 40 79 18 94 05/24/19 08:00 67 05/24/19 08:00 96.9 87 22 172/73 (106) 94 05/24/19 04:00 97.9 88 24 133/67 (89) 92 05/24/19 04:00 72 05/24/19 01:31 68 20 95 Venturi Mask 8.0 40 69 25 90 05/24/19 00:00 63 05/24/19 00:00 97.9 69 24 132/60 (84) 92 05/23/19 21:02 77 139/58 05/23/19 21:00 Venturi Mask 8.0 05/23/19 20:00 97.7 77 20 139/58 (85) 94 05/23/19 20:00 80 05/23/19 18:50 91 Venturi Mask 8.0 40 05/23/19 18:50 64 18 96 Venturi Mask 8.0 40 59 18 91 05/23/19 16:00 97.5 78 18 130/62 (84) 92 05/23/19 16:00 83 Height (Feet): 5 Height (Inches): 7.00 Weight (Pounds): 200 Objective General Appearance: no apparent distress, lethargic Cardiovascular: normal rate Respiratory/Chest: decreased breath sounds Abdomen: distended Laboratory Tests Test 05/24/19 06:00 05/24/19 06:15 Urine Eosinophils None seen (NONE SEEN) Random Vancomycin Level 16.0 ug/mL Current Medications Medications (Trade) Dose Ordered Sig/Phillip Route PRN Reason Start Time Stop Time Status Last Admin Dose Admin Acetaminophen (Tylenol) 500 mg Q4H PRN ORAL Mild Pain/Temp > 100.5 05/20/19 20:30 06/19/19 20:29 Acetaminophen/ Hydrocodone Bitart ([place] 5/325) 1 tab Q6H PRN ORAL For Pain 05/20/19 20:30 05/27/19 20:29 05/24/19 13:41 Amiodarone HCl (Cordarone) 200 mg EVERY 12 HOURS ORAL 05/22/19 21:00 06/21/19 20:59 05/24/19 08:58 Amlodipine Besylate (Norvasc) 5 mg DAILY ORAL 05/21/19 09:00 06/20/19 08:59 05/24/19 08:58 Apixaban (Eliquis) 2.5 mg BID ORAL 05/21/19 09:00 06/20/19 08:59 05/24/19 08:59 Docusate Sodium (Colace) 100 mg TID ORAL 05/21/19 18:00 06/20/19 08:59 05/24/19 12:20 Dronabinol (Marinol) 2.5 mg BID ORAL 05/22/19 18:00 06/21/19 17:59 05/24/19 08:59 Finasteride (Proscar) 5 mg DAILY ORAL 05/21/19 09:00 06/20/19 08:59 05/24/19 08:59 Ipratropium [place] (Atrovent) 500 mcg Q4H PRN N Shortness of Breath 05/20/19 20:30 05/25/19 20:29 05/21/19 10:45 Ipratropium [place] (Atrovent) 500 mcg Q6HRT HHN 05/21/19 13:00 05/26/19 12:59 05/24/19 12:36 Levofloxacin 50 ml @ 50 mls/hr Q24H IVPB 05/24/19 12:00 05/31/19 11:59 05/24/19 12:20 Metoprolol Tartrate (Lopressor) 25 mg Q12HR ORAL 05/20/19 21:00 06/19/19 20:59 05/24/19 08:59 Mirtazapine (Remeron) 15 mg BEDTIME ORAL 05/22/19 21:00 06/21/19 20:59 05/23/19 21:01 Sodium Chloride 1,000 ml @ 75 mls/hr [id number] IV 05/20/19 20:30 06/19/19 20:29 05/24/19 04:24 Tamsulosin HCl (Flomax) 0.4 mg BEDTIME ORAL 05/20/19 21:00 06/19/19 20:59 05/23/19 21:02 Vancomycin HCl (Vanco rx to dose) 1 ea DAILY PRN MISC Per rx protocol 05/20/19 20:30 06/19/19 20:29 Latha Lowe M.D. May 24, 2019 15:18
--- NOTE | 2019-05-24 15:37 | Hematology/Onc Progress Note ---
Assessment/Plan Assessment/Plan Assessment and Recs: # Right upper arm extremity axillary vein dvt --> agree to continue eliquis --> as per cards low dose eliquis --> continue for total of minimum of 3 months --> rescan arm in 3 mo # Anemia of chronic disease due to underlying chronic medical issues, multifactorial v Gi bleed --> Anemia workup has been reviewed, rule out gi bleed --> No evidence of hemolysis is noted, peripheral smear has been reviewed. --> Hgb goal >7. Transfuse prn. --> Epogen or iron at this time is not particularly indicated --> Medications have been reviewed --> low threshold for gi evaluation in case has occult + --> hgb trend: 9.3 # Cellulitis of upper extremity, likely picc line infection --> as per id on ax --> picc off --> levoflox/vanc # Renal insufficiency --> per Dr. Mera # Pneumonia --> abx per id # Dehydration. --> goal of euvolemia # Paroxysmal Atrial fibrillation with rapid ventricular response was on amiodarone gtt, now in sinus rhythm. --> per cards On PO amiodarone 200 bid, Lopressor 25 bid and Eliquis 2.5 bid # Dysphagia with ng tube The timing of this note does not necessarily reflect the time of the patient was seen. Greatly appreciate consultation. Subjective Allergies: Coded Allergies: No Known Allergies (Unverified , 05/18/19) Subjective 05/24: awake and alert, v mask, labs reviewed, apixaban Objective Objective Current Medications Medications (Trade) Dose Ordered Sig/Phillip Route PRN Reason Start Time Stop Time Status Last Admin Dose Admin Acetaminophen (Tylenol) 500 mg Q4H PRN ORAL Mild Pain/Temp > 100.5 05/20/19 20:30 06/19/19 20:29 Acetaminophen/ Hydrocodone Bitart ([place] 5/325) 1 tab Q6H PRN ORAL For Pain 05/20/19 20:30 05/27/19 20:29 05/24/19 13:41 Amiodarone HCl (Cordarone) 200 mg EVERY 12 HOURS ORAL 05/22/19 21:00 06/21/19 20:59 05/24/19 08:58 Amlodipine Besylate (Norvasc) 5 mg DAILY ORAL 05/21/19 09:00 06/20/19 08:59 05/24/19 08:58 Apixaban (Eliquis) 2.5 mg BID ORAL 05/21/19 09:00 06/20/19 08:59 05/24/19 08:59 Docusate Sodium (Colace) 100 mg TID ORAL 05/21/19 18:00 06/20/19 08:59 05/24/19 12:20 Dronabinol (Marinol) 2.5 mg BID ORAL 05/22/19 18:00 06/21/19 17:59 05/24/19 08:59 Finasteride (Proscar) 5 mg DAILY ORAL 05/21/19 09:00 06/20/19 08:59 05/24/19 08:59 Ipratropium [place] (Atrovent) 500 mcg Q4H PRN HHN Shortness of Breath 05/20/19 20:30 05/25/19 20:29 05/21/19 10:45 Ipratropium [place] (Atrovent) 500 mcg Q6HRT HHN 05/21/19 13:00 05/26/19 12:59 05/24/19 12:36 Levofloxacin 50 ml @ 50 mls/hr Q24H IVPB 05/24/19 12:00 05/31/19 11:59 05/24/19 12:20 Metoprolol Tartrate (Lopressor) 25 mg Q12HR ORAL 05/20/19 21:00 06/19/19 20:59 05/24/19 08:59 Mirtazapine (Remeron) 15 mg BEDTIME ORAL 05/22/19 21:00 06/21/19 20:59 05/23/19 21:01 Sodium Chloride 1,000 ml @ 75 mls/hr [id number] IV 05/20/19 20:30 06/19/19 20:29 05/24/19 04:24 Tamsulosin HCl (Flomax) 0.4 mg BEDTIME ORAL 05/20/19 21:00 06/19/19 20:59 05/23/19 21:02 Vancomycin HCl (Vanco rx to dose) 1 ea DAILY PRN MISC Per rx protocol 05/20/19 20:30 06/19/19 20:29 Last 24 Hour Vital Signs Date Time Temp Pulse Resp B/P (MAP) Pulse Ox O2 Delivery O2 Flow Rate FiO2 05/24/19 12:36 67 18 94 Venturi Mask 8.0 40 65 20 93 05/24/19 12:00 97.7 65 24 137/56 (83) 93 05/24/19 12:00 52 05/24/19 08:59 79 172/73 05/24/19 08:58 79 172/73 05/24/19 08:32 Venturi Mask 8.0 05/24/19 08:31 94 Venturi Mask 8.0 40 05/24/19 08:31 79 18 94 Venturi Mask 8.0 40 05/24/19 08:31 61 18 96 Venturi Mask 8.0 40 79 18 94 05/24/19 08:00 67 05/24/19 08:00 96.9 87 22 172/73 (106) 94 05/24/19 04:00 97.9 88 24 133/67 (89) 92 05/24/19 04:00 72 05/24/19 01:31 68 20 95 Venturi Mask 8.0 40 69 25 90 05/24/19 00:00 63 05/24/19 00:00 97.9 69 24 132/60 (84) 92 05/23/19 21:02 77 139/58 05/23/19 21:00 Venturi Mask 8.0 05/23/19 20:00 97.7 77 20 139/58 (85) 94 05/23/19 20:00 80 05/23/19 18:50 91 Venturi Mask 8.0 40 05/23/19 18:50 64 18 96 Venturi Mask 8.0 40 59 18 91 05/23/19 16:00 97.5 78 18 130/62 (84) 92 05/23/19 16:00 83 05/23/19 13:03 82 18 99 Venturi Mask 8.0 40 79 16 96 05/23/19 12:00 96.7 69 22 130/55 (80) 94 05/23/19 12:00 63 05/23/19 09:32 86 149/59 05/23/19 09:32 86 149/59 05/23/19 09:00 Venturi Mask 8.0 05/23/19 08:00 97.5 86 16 141/71 (94) 93 05/23/19 08:00 80 05/23/19 07:46 86 17 97 Venturi Mask 8.0 40 89 17 93 05/23/19 07:36 93 Venturi Mask 8.0 40 05/23/19 04:00 97.8 96 19 149/59 (89) 98 05/23/19 04:00 84 05/23/19 00:15 77 20 96 Venturi Mask 8.0 40 76 20 92 05/23/19 00:00 97.5 78 20 141/57 (85) 98 05/23/19 00:00 73 05/22/19 21:36 89 160/53 05/22/19 21:00 Venturi Mask 8.0 05/22/19 20:00 89 05/22/19 20:00 98.1 89 20 160/53 (88) 91 05/22/19 19:45 91 Venturi Mask 8.0 40 05/22/19 19:43 80 22 97 Venturi Mask 8.0 40 83 22 91 05/22/19 16:00 98.1 85 24 141/73 (95) 96 05/22/19 16:00 97 Intake and Output 05/23/19 05/24/19 19:00 07:00 Output Total 500 ml 400 ml Balance -500 ml -400 ml Output Urine Total 500 ml 400 ml # Voids 1 Labs Test 05/22/19 02:55 05/22/19 05:24 05/23/19 10:30 05/24/19 06:00 Urine Eosinophils None seen (NONE SEEN) None seen (NONE SEEN) White Blood Count 7.9 K/UL (4.8-10.8) 7.9 K/UL (4.8-10.8) Red Blood Count 3.21 M/UL (4.70-6.10) 3.19 M/UL (4.70-6.10) Hemoglobin 9.6 G/DL (14.2-18.0) 9.3 G/DL (14.2-18.0) Hematocrit 29.0 % (42.0-52.0) 28.6 % (42.0-52.0) Mean Corpuscular Volume 90 FL (80-99) 90 FL (80-99) Mean Corpuscular Hemoglobin 29.8 PG (27.0-31.0) 29.3 PG (27.0-31.0) Mean Corpuscular Hemoglobin Concent 33.0 G/DL (32.0-36.0) 32.6 G/DL (32.0-36.0) Red Cell Distribution Width 15.1 % (11.6-14.8) 15.1 % (11.6-14.8) Platelet Count 268 K/UL (150-450) 293 K/UL (150-450) Mean Platelet Volume 4.2 FL (6.5-10.1) 4.2 FL (6.5-10.1) Neutrophils (%) (Auto) % (45.0-75.0) % (45.0-75.0) Lymphocytes (%) (Auto) % (20.0-45.0) % (20.0-45.0) Monocytes (%) (Auto) % (1.0-10.0) % (1.0-10.0) Eosinophils (%) (Auto) % (0.0-3.0) % (0.0-3.0) Basophils (%) (Auto) % (0.0-2.0) % (0.0-2.0) Differential Total Cells Counted 100 100 Neutrophils % (Manual) 91 % (45-75) 90 % (45-75) Lymphocytes % (Manual) 3 % (20-45) 6 % (20-45) Monocytes % (Manual) 5 % (1-10) 3 % (1-10) Eosinophils % (Manual) 1 % (0-3) 1 % (0-3) Basophils % (Manual) 0 % (0-2) 0 % (0-2) Band Neutrophils 0 % (0-8) 0 % (0-8) Platelet Estimate Adequate Adequate Platelet Morphology Normal Normal Hypochromasia 2+ Sodium Level 138 MMOL/L (136-145) 141 MMOL/L (136-145) Potassium Level 4.0 MMOL/L (3.5-5.1) 3.9 MMOL/L (3.5-5.1) Chloride Level 108 MMOL/L (98-107) 111 MMOL/L (98-107) Carbon Dioxide Level 20 MMOL/L (21-32) 19 MMOL/L (21-32) Anion Gap 11 mmol/L (5-15) 11 mmol/L (5-15) Blood Urea Nitrogen 33 mg/dL (7-18) 36 mg/dL (7-18) Creatinine 2.0 MG/DL (0.55-1.30) 1.9 MG/DL (0.55-1.30) Estimat Glomerular Filtration Rate mL/min (>60) mL/min (>60) Glucose Level 91 MG/DL (74-106) 104 MG/DL (74-106) Calcium Level 7.3 MG/DL (8.5-10.1) 7.3 MG/DL (8.5-10.1) Random Vancomycin Level 17.9 ug/mL Anisocytosis 1+ Iron Level 56 ug/dL (50-175) Total Iron Binding Capacity 124 ug/dL (250-450) Percent Iron Saturation 45 % (15-50) Unsaturated Iron Binding 68 ug/dL (112-346) Total Bilirubin 0.3 MG/DL (0.2-1.0) Aspartate Amino Transf (AST/SGOT) 21 U/L (15-37) Alanine Aminotransferase (ALT/SGPT) 18 U/L (12-78) Alkaline Phosphatase 69 U/L (46-116) Total Protein 5.2 G/DL (6.4-8.2) Albumin 1.7 G/DL (3.4-5.0) Globulin 3.5 g/dL Albumin/Globulin Ratio 0.5 (1.0-2.7) Test 05/24/19 06:15 Random Vancomycin Level 16.0 ug/mL Height (Feet): 5 Height (Inches): 7.00 Weight (Pounds): 200 Objective PE: Vitals: reviewed General Appearance: NAD HEENT: normocephalic, atraumatic Neck: non-tender, normal alignment Respiratory/Chest: normal breath sounds bilaterall, v mask++ Cardiovascular/Chest: normal peripheral pulses, normal rate Abdomen: normal bowel sounds, soft, nontender Extremities: normal range of motion ++ right arm swelling Suleman Addison MD May 24, 2019 15:37
--- NOTE | 2019-05-24 15:59 | Cardiac Electrophysiology PN ---
Assessment/Plan Assessment/Plan 1. Paroxysmal Atrial fibrillation with rapid ventricular response was on amiodarone gtt, now in sinus rhythm. On PO amiodarone 200 bid, Lopressor 25 bid and Eliquis 2.5 bid 2. Hypertension, on Norvasc 5 and metoprolol 25 bid 3. Renal failure with Cr 2.0. Off ACEI and ARB 4. Dysphagia. NG tube feeding FU Dr Lino 5. Swelling around PICC line that was removed 05/18/19 Blood Cx 05/18/19 - NGTD DW RN Subjective Subjective No CP or SOB. In SR. Still has NG tube. On 8 liter venturi mask Objective Last 24 Hour Vital Signs Date Time Temp Pulse Resp B/P (MAP) Pulse Ox O2 Delivery O2 Flow Rate FiO2 05/24/19 12:36 67 18 94 Venturi Mask 8.0 40 65 20 93 05/24/19 12:00 97.7 65 24 137/56 (83) 93 05/24/19 12:00 52 05/24/19 08:59 79 172/73 05/24/19 08:58 79 172/73 05/24/19 08:32 Venturi Mask 8.0 05/24/19 08:31 94 Venturi Mask 8.0 40 05/24/19 08:31 79 18 94 Venturi Mask 8.0 40 05/24/19 08:31 61 18 96 Venturi Mask 8.0 40 79 18 94 05/24/19 08:00 67 05/24/19 08:00 96.9 87 22 172/73 (106) 94 05/24/19 04:00 97.9 88 24 133/67 (89) 92 05/24/19 04:00 72 05/24/19 01:31 68 20 95 Venturi Mask 8.0 40 69 25 90 05/24/19 00:00 63 05/24/19 00:00 97.9 69 24 132/60 (84) 92 05/23/19 21:02 77 139/58 05/23/19 21:00 Venturi Mask 8.0 05/23/19 20:00 97.7 77 20 139/58 (85) 94 05/23/19 20:00 80 05/23/19 18:50 91 Venturi Mask 8.0 40 05/23/19 18:50 64 18 96 Venturi Mask 8.0 40 59 18 91 05/23/19 16:00 97.5 78 18 130/62 (84) 92 05/23/19 16:00 83 Intake and Output 05/23/19 05/24/19 19:00 07:00 Output Total 500 ml 400 ml Balance -500 ml -400 ml Output Urine Total 500 ml 400 ml # Voids 1 Laboratory Tests Test 05/24/19 06:00 05/24/19 06:15 Urine Eosinophils None seen (NONE SEEN) Random Vancomycin Level 16.0 ug/mL Objective HEENT: No JVD. NG tube is in LUNGS: Clear CVS: RRR ABDOMEN: Soft. EXT No edema. Left leg in splint Del Alcaraz MD May 24, 2019 15:59
[2019-05-24 16:00] VITALS: BP 141/59
[2019-05-24 20:00] VITALS: BP 130/56
--- NOTE | 2019-05-24 21:36 | Surgery Progress Note ---
Surgery Progress Note Subjective Additional Comments no acute events comfortable labs noted exam stable Objective Last 24 Hour Vital Signs Date Time Temp Pulse Resp B/P (MAP) Pulse Ox O2 Delivery O2 Flow Rate FiO2 05/24/19 20:00 85 18 95 Venturi Mask 10.0 45 80 20 92 05/24/19 19:57 92 Venturi Mask 10.0 45 05/24/19 16:00 81 05/24/19 16:00 97.3 65 26 141/59 (86) 93 05/24/19 12:36 67 18 94 Venturi Mask 8.0 40 65 20 93 05/24/19 12:00 97.7 65 24 137/56 (83) 93 05/24/19 12:00 52 05/24/19 08:59 79 172/73 05/24/19 08:58 79 172/73 05/24/19 08:32 Venturi Mask 8.0 05/24/19 08:31 94 Venturi Mask 8.0 40 05/24/19 08:31 79 18 94 Venturi Mask 8.0 40 05/24/19 08:31 61 18 96 Venturi Mask 8.0 40 79 18 94 05/24/19 08:00 67 05/24/19 08:00 96.9 87 22 172/73 (106) 94 05/24/19 04:00 97.9 88 24 133/67 (89) 92 05/24/19 04:00 72 05/24/19 01:31 68 20 95 Venturi Mask 8.0 40 69 25 90 05/24/19 00:00 63 05/24/19 00:00 97.9 69 24 132/60 (84) 92 I&O Intake and Output 05/23/19 05/24/19 19:00 07:00 Output Total 500 ml 400 ml Balance -500 ml -400 ml Output Urine Total 500 ml 400 ml # Voids 1 Dressing: saturated Wound: clean Cardiovascular: RSR Respiratory: clear Abdomen: soft, non-tender, present bowel sounds Extremities: no edema, no tenderness, no cyanosis Laboratory Tests Test 05/24/19 06:00 05/24/19 06:15 Urine Eosinophils None seen (NONE SEEN) Random Vancomycin Level 16.0 ug/mL Plan Problems: (1) Cellulitis of upper extremity Assessment & Plan: 84M with RUE cellulitis, edema, erythema. no drainage. has RUE picc line recommend removal of picc. removed at bedside by myself on 05/18. pressure held, hemostasis noted, dressings applied. cath tip sent for cultures DVT duplex studies with acute thrombus IV Abx as per ID UA pending Cx results keep RUE elevated on pillows okay for diet AM labs anticoagulation off load pressure for dti noted cellulitis and edema improved will follow with recs thank you (2) Cellulitis Assessment & Plan: Pt presented on admission with reabsorbing blister lateral R heel. Base of injury indurated with delineated margins(L)4cm x (W)3cm.Non- blanching erythema Sacrum ,R and L buttocks(L)8.5cm x (W)9cm, with a partial thickness pressure injury noted to L buttocks. Base of wound is moist and viable (L)2.3cm x (W)3cm. Area around wound tender when minimally palpated. Pt noted to be wearing splint L foot. Per pt he fractured foot a few weeks ago. Splint removed to assess skin integrity. L heel and malleoli are pink and blanchable.Cavilon Skin Barrier applied to L heel and malleoli and each area covered with Optifoam drsg. Splint reapplied. No other skin concerns noted. Tx.Plan: Apply Moisture Barrier to Buttocks. Cover with Optifoam drsg. Changee very 3 days and prn. Apply Cavilon Skin Barrier to both heels. Cover each heel with Optifoam drsg. Change every 7 days and prn APM/SCOOBY Mattress overlay. Reposition at least every 2hours or as tolerated. Off-load heels with pillow. Additional Comments time of note does not reflect when patient was seen and examined. patient seen at this morning TraciebradfordBennett underwood May 24, 2019 21:36
[2019-05-24] MEDS: Tamsulosin 0.4mg cap ORAL SCH (21:40)
[2019-05-25] VITALS: BP 122/51
--- NOTE | 2019-05-25 00:01 | Diagnostic Imaging Report ---
EXAM: XR Abdomen, 2 Views CLINICAL HISTORY: NGT TECHNIQUE: Frontal view of the abdomen/pelvis with upright view of the abdomen. COMPARISON: No relevant prior studies available. FINDINGS: Study is limited by underpenetrated technique. Gastric decompression tube terminates within the gastric body. IMPRESSION: Gastric decompression tube terminates within the gastric body.
[2019-05-25] MEDS: Ipratropium 0.02% Inh Soln 2.5ml UD HHN SCH ×4 (01:35→19:47)
[2019-05-25 04:00] VITALS: BP 104/44
[2019-05-25 08:00] VITALS: BP 112/59
[2019-05-25 08:18] LABS: ANION GAP 6 mmol/L (5-15); BLOOD UREA NITROGEN 41 mg/dL (7-18); CALCIUM 7.8 MG/DL (8.5-10.1); CARBON DIOXIDE 23 MMOL/L (21-32); CHLORIDE 114 MMOL/L (98-107); POTASSIUM 4.7 MMOL/L (3.5-5.1); SODIUM 143 MMOL/L (136-145)
--- NOTE | 2019-05-25 08:45 | General Progress Note ---
Assessment/Plan Problem List: (1) Dysphagia ICD Codes: R13.10 - Dysphagia, unspecified SNOMED: 91388692, 817156779 (2) Anemia ICD Codes: D64.9 - Anemia, unspecified SNOMED: 734596006 (3) Hypothyroidism ICD Codes: E03.9 - Hypothyroidism, unspecified SNOMED: 05420998 (4) Thrombus ICD Codes: I82.90 - Acute embolism and thrombosis of unspecified vein SNOMED: 75063981, 82509412, 764518650, [id number] (5) A-fib ICD Codes: I48.91 - Unspecified atrial fibrillation SNOMED: 13743172 Status: progressing, unchanged Assessment/Plan: NGTF VQ scan r/o PE>> NEG fu hematology for DVT management on Eliquis had NGT re insertion yesterday with 40 cc of coffee colored fluid will fu Subjective ROS Limited/Unobtainable: No Allergies: Coded Allergies: No Known Allergies (Unverified , 05/18/19) Objective Last 24 Hour Vital Signs Date Time Temp Pulse Resp B/P (MAP) Pulse Ox O2 Delivery O2 Flow Rate FiO2 05/25/19 07:41 91 Venturi Mask 14.0 55 05/25/19 07:31 67 22 93 Venturi Mask 14.0 55 69 22 96 05/25/19 04:00 97.5 50 20 104/44 (64) 97 05/25/19 04:00 71 05/25/19 01:50 74 20 93 Venturi Mask 10.0 45 70 20 92 05/25/19 00:00 81 05/25/19 00:00 97.5 70 20 122/51 (74) 97 05/24/19 21:00 50 130/56 05/24/19 21:00 Non-Rebreather 10.0 05/24/19 20:00 98.1 50 26 130/56 (80) 93 05/24/19 20:00 85 18 95 Venturi Mask 10.0 45 80 20 92 05/24/19 19:57 92 Venturi Mask 10.0 45 05/24/19 16:00 81 05/24/19 16:00 97.3 65 26 141/59 (86) 93 05/24/19 12:36 67 18 94 Venturi Mask 8.0 40 65 20 93 05/24/19 12:00 97.7 65 24 137/56 (83) 93 05/24/19 12:00 52 05/24/19 08:59 79 172/73 05/24/19 08:58 79 172/73 Intake and Output 05/24/19 05/25/19 19:00 07:00 Intake Total 75 ml 1055 ml Output Total 400 ml 350 ml Balance -325 ml 705 ml Free Water 30 ml IV Total 75 ml 825 ml Tube Feeding 200 ml Output Urine Total 400 ml 350 ml Laboratory Tests 05/25/19 07:20: White Blood Count [Pending], Red Blood Count [Pending], Hemoglobin [Pending], Hematocrit [Pending], Mean Corpuscular Volume [Pending], Mean Corpuscular Hemoglobin [Pending], Mean Corpuscular Hemoglobin Concent [Pending], Red Cell Distribution Width [Pending], Platelet Count [Pending], Mean Platelet Volume [ Pending], Neutrophils (%) (Auto) [Pending], Lymphocytes (%) (Auto) [Pending], Monocytes (%) (Auto) [Pending], Eosinophils (%) (Auto) [Pending], Basophils (%) (Auto) [Pending], Sodium Level 143, Potassium Level 4.7, Chloride Level 114H, Carbon Dioxide Level 23, Anion Gap 6, Blood Urea Nitrogen 41H, Creatinine 2.0H, Estimat Glomerular Filtration Rate , Glucose Level 130H, Calcium Level 7.8L, Magnesium Level 2.2, Random Vancomycin Level 19.1 Height (Feet): 5 Height (Inches): 7.00 Weight (Pounds): 190 General Appearance: alert EENT: normal ENT inspection Neck: supple Cardiovascular: normal rate Respiratory/Chest: decreased breath sounds Abdomen: normal bowel sounds, non tender, soft Extremities: non-tender Valentino Lino MD May 25, 2019 08:45
[2019-05-25 08:49] LABS: HEMATOCRIT 30.4 % (42.0-52.0); HEMOGLOBIN 9.7 G/DL (14.2-18.0); MEAN CORPUSCULAR VOLUME 95 FL (80-99); PLATELET COUNT 265 K/UL (150-450); RED BLOOD COUNT 3.21 M/UL (4.70-6.10); RED CELL DISTRIBUTION WIDTH 15.8 % (11.6-14.8); WHITE BLOOD COUNT 11.6 K/UL (4.8-10.8)
--- NOTE | 2019-05-25 08:51 | Pulmonology Progress Note ---
Assessment/Plan Assessment/Plan IMPRESSION AND PLAN: 1. Pneumonia. Bilateral upper lobe. 2. Cellulitis. 3. History of COPD. 4. Hypertension. 5. Afib with RVR; rate controlled 6. No evidence for PE 7. Persistent hypoxia; will check CXR DISCUSSION: 1. No longer in a fib after amiodarone; transferred out of ICU 2. Agree with present management and care. 3. Continue medications and HHN with atrovent only 4. Reviewed Chest CT. 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 6. continue antibiotics Arsen Whittaker M.D. Subjective Interval Events: Hypoxic, on ventimask Constitutional: Reports: no symptoms HEENT: Repors: no symptoms Respiratory: Reports: dry cough Cardiovascular: Reports: no symptoms Gastrointestinal/Abdominal: Reports: no symptoms Allergies: Coded Allergies: No Known Allergies (Unverified , 05/18/19) Objective Last 24 Hour Vital Signs Date Time Temp Pulse Resp B/P (MAP) Pulse Ox O2 Delivery O2 Flow Rate FiO2 05/25/19 07:41 91 Venturi Mask 14.0 55 05/25/19 07:31 67 22 93 Venturi Mask 14.0 55 69 22 96 05/25/19 04:00 97.5 50 20 104/44 (64) 97 05/25/19 04:00 71 05/25/19 01:50 74 20 93 Venturi Mask 10.0 45 70 20 92 05/25/19 00:00 81 05/25/19 00:00 97.5 70 20 122/51 (74) 97 05/24/19 21:00 50 130/56 05/24/19 21:00 Non-Rebreather 10.0 05/24/19 20:00 98.1 50 26 130/56 (80) 93 05/24/19 20:00 85 18 95 Venturi Mask 10.0 45 80 20 92 05/24/19 19:57 92 Venturi Mask 10.0 45 05/24/19 16:00 81 05/24/19 16:00 97.3 65 26 141/59 (86) 93 05/24/19 12:36 67 18 94 Venturi Mask 8.0 40 65 20 93 05/24/19 12:00 97.7 65 24 137/56 (83) 93 05/24/19 12:00 52 05/24/19 08:59 79 172/73 05/24/19 08:58 79 172/73 Intake and Output 05/24/19 05/25/19 19:00 07:00 Intake Total 75 ml 1055 ml Output Total 400 ml 350 ml Balance -325 ml 705 ml Free Water 30 ml IV Total 75 ml 825 ml Tube Feeding 200 ml Output Urine Total 400 ml 350 ml General Appearance: no acute distress HEENT: normocephalic Respiratory/Chest: chest wall non-tender, decreased breath sounds Cardiovascular: normal peripheral pulses, normal rate Abdomen: normal bowel sounds Laboratory Tests 05/25/19 07:20: White Blood Count 11.6H, Red Blood Count 3.21L, Hemoglobin 9.7L, Hematocrit 30.4L, Mean Corpuscular Volume 95, Mean Corpuscular Hemoglobin 30.3, Mean Corpuscular Hemoglobin Concent 32.0, Red Cell Distribution Width 15.8H, Platelet Count 265, Mean Platelet Volume 4.6L, Neutrophils (%) (Auto) , Lymphocytes (%) (Auto) , Monocytes (%) (Auto) , Eosinophils (%) (Auto) , Basophils (%) (Auto) , Neutrophils % (Manual) [Pending], Lymphocytes % (Manual) [Pending], Platelet Estimate [Pending], Platelet Morphology [Pending], Sodium Level 143, Potassium Level 4.7, Chloride Level 114H, Carbon Dioxide Level 23, Anion Gap 6, Blood Urea Nitrogen 41H, Creatinine 2.0H, Estimat Glomerular Filtration Rate , Glucose Level 130H, Calcium Level 7.8L, Magnesium Level 2.2, Random Vancomycin Level 19.1 Current Medications Medications (Trade) Dose Ordered Sig/Phillip Route PRN Reason Start Time Stop Time Status Last Admin Dose Admin Acetaminophen (Tylenol) 500 mg Q4H PRN ORAL Mild Pain/Temp > 100.5 05/20/19 20:30 06/19/19 20:29 Acetaminophen/ Hydrocodone Bitart ([place] 5/325) 1 tab Q6H PRN ORAL For Pain 05/20/19 20:30 05/27/19 20:29 05/24/19 13:41 Amiodarone HCl (Cordarone) 200 mg EVERY 12 HOURS ORAL 05/22/19 21:00 06/21/19 20:59 05/24/19 08:58 Amlodipine Besylate (Norvasc) 5 mg DAILY ORAL 05/21/19 09:00 06/20/19 08:59 05/24/19 08:58 Apixaban (Eliquis) 2.5 mg BID ORAL 05/21/19 09:00 06/20/19 08:59 05/24/19 18:07 Docusate Sodium (Colace) 100 mg TID ORAL 05/21/19 18:00 06/20/19 08:59 05/24/19 18:07 Dronabinol (Marinol) 2.5 mg BID ORAL 05/22/19 18:00 06/21/19 17:59 05/24/19 18:07 Finasteride (Proscar) 5 mg DAILY ORAL 05/21/19 09:00 06/20/19 08:59 05/24/19 08:59 Ipratropium [place] (Atrovent) 500 mcg Q4H PRN N Shortness of Breath 05/20/19 20:30 05/25/19 20:29 05/21/19 10:45 Ipratropium [place] (Atrovent) 500 mcg Q6HRT HHN 05/21/19 13:00 05/26/19 12:59 05/25/19 07:31 Levofloxacin 50 ml @ 50 mls/hr Q24H IVPB 05/24/19 12:00 05/31/19 11:59 05/24/19 12:20 Metoprolol Tartrate (Lopressor) 25 mg Q12HR ORAL 05/20/19 21:00 06/19/19 20:59 05/24/19 08:59 Mirtazapine (Remeron) 15 mg BEDTIME ORAL 05/22/19 21:00 06/21/19 20:59 05/24/19 21:40 Sodium Chloride 1,000 ml @ 75 mls/hr [id number] IV 05/20/19 20:30 06/19/19 20:29 05/25/19 05:56 Tamsulosin HCl (Flomax) 0.4 mg BEDTIME ORAL 05/20/19 21:00 06/19/19 20:59 05/24/19 21:40 Vancomycin HCl (Vanco rx to dose) 1 ea DAILY PRN MISC Per rx protocol 05/20/19 20:30 06/19/19 20:29 Vancomycin HCl 1 gm/Dextrose 275 ml @ 183.708 mls/hr ONCE IVPB 05/25/19 09:00 05/25/19 11:00 Arsen Whittaker MD May 25, 2019 08:51
[2019-05-25] MEDS ORDERED: Vancomycin 1gm/D5W 275ml IVPB SCH ×2 (09:00)
[2019-05-25] MEDS: Docusate 100mg cap ORAL SCH ×3 (09:24→17:39)
[2019-05-25] MEDS: Dronabinol 2.5mg Cap ORAL SCH ×2 (09:24→17:39)
[2019-05-25] MEDS: Eliquis 2.5mg tablet ORAL SCH (09:24)
[2019-05-25] MEDS: Amiodarone 200mg tab ORAL SCH (09:24)
--- NOTE | 2019-05-25 10:22 | Diagnostic Imaging Report ---
EXAM: XR Chest, 1 View CLINICAL HISTORY: ABN CHST TECHNIQUE: Frontal view of the chest. COMPARISON: Chest radiograph on 05/18/2019 FINDINGS: Hardware: Interval placement of an enteric tube which terminates in the region of the proximal stomach. Interval removal of the right-sided PICC line. Lungs/pleura: Increased right pleural effusion and similar left pleural effusion. Increased interstitial and hazy opacities throughout the lungs. Heart/mediastinum: Atherosclerotic calcifications in the aorta. No cardiomegaly. Soft tissues: Unremarkable. Bones: No acute fracture. Degenerative changes of the acromioclavicular joints and spine. Upper abdomen: Normal. IMPRESSION: 1. Interval placement of an enteric tube which terminates in the region of the proximal stomach. Interval removal of the right-sided PICC line. 2. Increased right pleural effusion and similar left pleural effusion. Increased interstitial and hazy opacities throughout the lungs.
--- NOTE | 2019-05-25 10:27 | Surgery Progress Note ---
Surgery Progress Note Subjective Additional Comments ill appearing labs noted imaging reviewed on face mask alert but not cooperative at this time Objective Last 24 Hour Vital Signs Date Time Temp Pulse Resp B/P (MAP) Pulse Ox O2 Delivery O2 Flow Rate FiO2 05/25/19 09:24 85 112/59 05/25/19 09:24 85 112/59 05/25/19 08:00 97.5 85 20 112/59 (76) 99 05/25/19 07:41 91 Venturi Mask 14.0 55 05/25/19 07:31 67 22 93 Venturi Mask 14.0 55 69 22 96 05/25/19 04:00 97.5 50 20 104/44 (64) 97 05/25/19 04:00 71 05/25/19 01:50 74 20 93 Venturi Mask 10.0 45 70 20 92 05/25/19 00:00 81 05/25/19 00:00 97.5 70 20 122/51 (74) 97 05/24/19 21:00 50 130/56 05/24/19 21:00 Non-Rebreather 10.0 05/24/19 20:00 98.1 50 26 130/56 (80) 93 05/24/19 20:00 85 18 95 Venturi Mask 10.0 45 80 20 92 05/24/19 19:57 92 Venturi Mask 10.0 45 05/24/19 16:00 81 05/24/19 16:00 97.3 65 26 141/59 (86) 93 05/24/19 12:36 67 18 94 Venturi Mask 8.0 40 65 20 93 05/24/19 12:00 97.7 65 24 137/56 (83) 93 05/24/19 12:00 52 I&O Intake and Output 05/24/19 05/25/19 19:00 07:00 Intake Total 75 ml 1055 ml Output Total 400 ml 350 ml Balance -325 ml 705 ml Free Water 30 ml IV Total 75 ml 825 ml Tube Feeding 200 ml Output Urine Total 400 ml 350 ml Dressing: saturated Wound: clean Cardiovascular: RSR Respiratory: clear, decreased breath sounds Abdomen: soft, present bowel sounds, non-distended Extremities: no tenderness, no cyanosis Laboratory Tests Test 05/25/19 07:20 White Blood Count 11.6 K/UL (4.8-10.8) H Red Blood Count 3.21 M/UL (4.70-6.10) L Hemoglobin 9.7 G/DL (14.2-18.0) L Hematocrit 30.4 % (42.0-52.0) L Mean Corpuscular Volume 95 FL (80-99) Mean Corpuscular Hemoglobin 30.3 PG (27.0-31.0) Mean Corpuscular Hemoglobin Concent 32.0 G/DL (32.0-36.0) Red Cell Distribution Width 15.8 % (11.6-14.8) H Platelet Count 265 K/UL (150-450) Mean Platelet Volume 4.6 FL (6.5-10.1) L Neutrophils (%) (Auto) % (45.0-75.0) Lymphocytes (%) (Auto) % (20.0-45.0) Monocytes (%) (Auto) % (1.0-10.0) Eosinophils (%) (Auto) % (0.0-3.0) Basophils (%) (Auto) % (0.0-2.0) Neutrophils % (Manual) Pending Lymphocytes % (Manual) Pending Platelet Estimate Pending Platelet Morphology Pending Sodium Level 143 MMOL/L (136-145) Potassium Level 4.7 MMOL/L (3.5-5.1) Chloride Level 114 MMOL/L (98-107) H Carbon Dioxide Level 23 MMOL/L (21-32) Anion Gap 6 mmol/L (5-15) Blood Urea Nitrogen 41 mg/dL (7-18) H Creatinine 2.0 MG/DL (0.55-1.30) H Estimat Glomerular Filtration Rate mL/min (>60) Glucose Level 130 MG/DL (74-106) H Calcium Level 7.8 MG/DL (8.5-10.1) L Magnesium Level 2.2 MG/DL (1.8-2.4) Random Vancomycin Level 19.1 ug/mL Plan Problems: (1) Cellulitis of upper extremity Assessment & Plan: 84M with RUE cellulitis, edema, erythema. no drainage. has RUE picc line recommend removal of picc. removed at bedside by myself on 05/18. pressure held, hemostasis noted, dressings applied. cath tip sent for cultures DVT duplex studies with acute thrombus IV Abx as per ID UA pending Cx results keep RUE elevated on pillows okay for diet AM labs anticoagulation off load pressure for dti noted cellulitis and edema improved will follow with recs thank you (2) Cellulitis Assessment & Plan: Pt presented on admission with reabsorbing blister lateral R heel. Base of injury indurated with delineated margins(L)4cm x (W)3cm.Non- blanching erythema Sacrum ,R and L buttocks(L)8.5cm x (W)9cm, with a partial thickness pressure injury noted to L buttocks. Base of wound is moist and viable (L)2.3cm x (W)3cm. Area around wound tender when minimally palpated. Pt noted to be wearing splint L foot. Per pt he fractured foot a few weeks ago. Splint removed to assess skin integrity. L heel and malleoli are pink and blanchable.Cavilon Skin Barrier applied to L heel and malleoli and each area covered with Optifoam drsg. Splint reapplied. No other skin concerns noted. Tx.Plan: Apply Moisture Barrier to Buttocks. Cover with Optifoam drsg. Changee very 3 days and prn. Apply Cavilon Skin Barrier to both heels. Cover each heel with Optifoam drsg. Change every 7 days and prn APM/SCOOBY Mattress overlay. Reposition at least every 2hours or as tolerated. Off-load heels with pillow. Bennett Logan May 25, 2019 10:27
[2019-05-25] MEDS ORDERED: NS 275ml ONE (11:09)
--- NOTE | 2019-05-25 11:44 | Nephrology Progress Note ---
Assessment/Plan Problem List: (1) Renal failure (ARF), acute on chronic (2) Cellulitis of upper extremity (3) A-fib (4) Pneumonia (5) UTI (urinary tract infection) (6) Anemia (7) Hypothyroidism Assessment - KIMO on CKD - Urinary tract infection. - Anemia- - Dehydration. - Cellulitis of Upper extremity - HTN Plan Hydrate- Anemia kumari- Avoid Nephrotoxics Per ID Allow CHANDA inhibitor to continue as long as renal function does not worsen. PICC line has been removed. Subjective ROS Limited/Unobtainable: No Constitutional: Reports: malaise, weakness Objective Objective Last 24 Hour Vital Signs Date Time Temp Pulse Resp B/P (MAP) Pulse Ox O2 Delivery O2 Flow Rate FiO2 05/25/19 09:24 85 112/59 05/25/19 09:24 85 112/59 05/25/19 09:00 Non-Rebreather 10.0 05/25/19 08:00 97.5 85 20 112/59 (76) 99 05/25/19 08:00 83 05/25/19 07:41 91 Venturi Mask 14.0 55 05/25/19 07:31 67 22 93 Venturi Mask 14.0 55 69 22 96 05/25/19 04:00 97.5 50 20 104/44 (64) 97 05/25/19 04:00 71 05/25/19 01:50 74 20 93 Venturi Mask 10.0 45 70 20 92 05/25/19 00:00 81 05/25/19 00:00 97.5 70 20 122/51 (74) 97 05/24/19 21:00 50 130/56 05/24/19 21:00 Non-Rebreather 10.0 05/24/19 20:00 98.1 50 26 130/56 (80) 93 05/24/19 20:00 85 18 95 Venturi Mask 10.0 45 80 20 92 05/24/19 19:57 92 Venturi Mask 10.0 45 05/24/19 16:00 81 05/24/19 16:00 97.3 65 26 141/59 (86) 93 05/24/19 12:36 67 18 94 Venturi Mask 8.0 40 65 20 93 05/24/19 12:00 97.7 65 24 137/56 (83) 93 05/24/19 12:00 52 Intake and Output 12/28/19 12/29/19 19:00 07:00 Intake Total 75 ml 1055 ml Output Total 400 ml 350 ml Balance -325 ml 705 ml Free Water 30 ml IV Total 75 ml 825 ml Tube Feeding 200 ml Output Urine Total 400 ml 350 ml Laboratory Tests 05/25/19 07:20: White Blood Count 11.6H, Red Blood Count 3.21L, Hemoglobin 9.7L, Hematocrit 30.4L, Mean Corpuscular Volume 95, Mean Corpuscular Hemoglobin 30.3, Mean Corpuscular Hemoglobin Concent 32.0, Red Cell Distribution Width 15.8H, Platelet Count 265, Mean Platelet Volume 4.6L, Neutrophils (%) (Auto) , Lymphocytes (%) (Auto) , Monocytes (%) (Auto) , Eosinophils (%) (Auto) , Basophils (%) (Auto) , Differential Total Cells Counted 100, Neutrophils % ( Manual) 90H, Lymphocytes % (Manual) 3L, Monocytes % (Manual) 7, Eosinophils % ( Manual) 0, Basophils % (Manual) 0, Band Neutrophils 0, Platelet Estimate Adequate, Platelet Morphology Normal, Anisocytosis 1+, Sodium Level 143, Potassium Level 4.7, Chloride Level 114H, Carbon Dioxide Level 23, Anion Gap 6, Blood Urea Nitrogen 41H, Creatinine 2.0H, Estimat Glomerular Filtration Rate , Glucose Level 130H, Calcium Level 7.8L, Magnesium Level 2.2, Random Vancomycin Level 19.1 Height (Feet): 5 Height (Inches): 7.00 Weight (Pounds): 190 General Appearance: no apparent distress, lethargic Cardiovascular: tachycardia Respiratory/Chest: decreased breath sounds Abdomen: soft Reinier Mera MD May 25, 2019 11:44
[2019-05-25 12:00] VITALS: BP 113/60
--- NOTE | 2019-05-25 14:07 | Cardiac Electrophysiology PN ---
Assessment/Plan Assessment/Plan 1. Paroxysmal Atrial fibrillation with rapid ventricular response was on amiodarone gtt, now in sinus rhythm. On PO amiodarone, Lopressor 25 bid and Eliquis 2.5 bid. Hold ELiquis for NGT bleeding until clear by Dr Lino 2. Bradycardia with HR dropping to 30s. Decrease Amiodarone to 200 daily 3. Hypertension, on Norvasc 5 and metoprolol 25 bid 4. Renal failure with Cr 2.0. Off ACEI and ARB 5. Dysphagia. NG tube feeding FU Dr Lino 6. Swelling around PICC line that was removed 05/18/19 Blood Cx 05/18/19 - NGTD DW RN Subjective Subjective No CP or SOB. In Sinus fredo as low as 30s. Still has NG tube. Coffee ground emesis overnight. On 13 liter NRB face mask Also had 8 beats of VT at 6.47 am today. Objective Last 24 Hour Vital Signs Date Time Temp Pulse Resp B/P (MAP) Pulse Ox O2 Delivery O2 Flow Rate FiO2 05/25/19 13:38 61 22 93 Venturi Mask 14.0 55 58 22 91 05/25/19 12:00 97.7 57 25 113/60 (77) 96 05/25/19 12:00 36 05/25/19 09:24 85 112/59 05/25/19 09:24 85 112/59 05/25/19 09:00 Non-Rebreather 10.0 05/25/19 08:00 97.5 85 20 112/59 (76) 99 05/25/19 08:00 83 05/25/19 07:41 91 Venturi Mask 14.0 55 05/25/19 07:31 67 22 93 Venturi Mask 14.0 55 69 22 96 05/25/19 04:00 97.5 50 20 104/44 (64) 97 05/25/19 04:00 71 05/25/19 01:50 74 20 93 Venturi Mask 10.0 45 70 20 92 05/25/19 00:00 81 05/25/19 00:00 97.5 70 20 122/51 (74) 97 05/24/19 21:00 50 130/56 05/24/19 21:00 Non-Rebreather 10.0 05/24/19 20:00 98.1 50 26 130/56 (80) 93 05/24/19 20:00 85 18 95 Venturi Mask 10.0 45 80 20 92 05/24/19 19:57 92 Venturi Mask 10.0 45 05/24/19 16:00 81 05/24/19 16:00 97.3 65 26 141/59 (86) 93 Intake and Output 05/24/19 05/25/19 19:00 07:00 Intake Total 75 ml 1055 ml Output Total 400 ml 350 ml Balance -325 ml 705 ml Free Water 30 ml IV Total 75 ml 825 ml Tube Feeding 200 ml Output Urine Total 400 ml 350 ml Laboratory Tests Test 05/25/19 07:20 White Blood Count 11.6 K/UL (4.8-10.8) H Red Blood Count 3.21 M/UL (4.70-6.10) L Hemoglobin 9.7 G/DL (14.2-18.0) L Hematocrit 30.4 % (42.0-52.0) L Mean Corpuscular Volume 95 FL (80-99) Mean Corpuscular Hemoglobin 30.3 PG (27.0-31.0) Mean Corpuscular Hemoglobin Concent 32.0 G/DL (32.0-36.0) Red Cell Distribution Width 15.8 % (11.6-14.8) H Platelet Count 265 K/UL (150-450) Mean Platelet Volume 4.6 FL (6.5-10.1) L Neutrophils (%) (Auto) % (45.0-75.0) Lymphocytes (%) (Auto) % (20.0-45.0) Monocytes (%) (Auto) % (1.0-10.0) Eosinophils (%) (Auto) % (0.0-3.0) Basophils (%) (Auto) % (0.0-2.0) Differential Total Cells Counted 100 Neutrophils % (Manual) 90 % (45-75) H Lymphocytes % (Manual) 3 % (20-45) L Monocytes % (Manual) 7 % (1-10) Eosinophils % (Manual) 0 % (0-3) Basophils % (Manual) 0 % (0-2) Band Neutrophils 0 % (0-8) Platelet Estimate Adequate Platelet Morphology Normal Anisocytosis 1+ Sodium Level 143 MMOL/L (136-145) Potassium Level 4.7 MMOL/L (3.5-5.1) Chloride Level 114 MMOL/L (98-107) H Carbon Dioxide Level 23 MMOL/L (21-32) Anion Gap 6 mmol/L (5-15) Blood Urea Nitrogen 41 mg/dL (7-18) H Creatinine 2.0 MG/DL (0.55-1.30) H Estimat Glomerular Filtration Rate mL/min (>60) Glucose Level 130 MG/DL (74-106) H Calcium Level 7.8 MG/DL (8.5-10.1) L Magnesium Level 2.2 MG/DL (1.8-2.4) Random Vancomycin Level 19.1 ug/mL Objective HEENT: No JVD. NG tube is in LUNGS: Clear CVS: RRR ABDOMEN: Soft. EXT No edema. Left leg in splint Del Alcaraz MD May 25, 2019 14:07
[2019-05-25 16:00] VITALS: BP 133/55
--- NOTE | 2019-05-25 18:42 | Hematology/Onc Progress Note ---
Assessment/Plan Assessment/Plan Assessment and Recs: # Right upper arm extremity axillary vein dvt --> agree to continue eliquis --> as per cards low dose eliquis --> continue for total of minimum of 3 months --> rescan arm in 3 mo # Anemia of chronic disease due to underlying chronic medical issues, multifactorial v Gi bleed --> Anemia workup has been reviewed, rule out gi bleed --> No evidence of hemolysis is noted, peripheral smear has been reviewed. --> Hgb goal >7. Transfuse prn. --> Epogen or iron at this time is not particularly indicated --> Medications have been reviewed --> low threshold for gi evaluation in case has occult + --> hgb trend: 9.3->9.7 # Cellulitis of upper extremity, likely picc line infection --> as per id on ax --> picc off --> levoflox/vanc # Renal insufficiency --> per Dr. Mera # Pneumonia --> abx per id # Dehydration. --> goal of euvolemia # Paroxysmal Atrial fibrillation with rapid ventricular response was on amiodarone gtt, now in sinus rhythm. --> per cards On PO amiodarone 200 bid, Lopressor 25 bid and Eliquis 2.5 bid # Dysphagia with ng tube The timing of this note does not necessarily reflect the time of the patient was seen. Greatly appreciate consultation. Subjective HEENT: Denies: no symptoms, eye pain, blurred vision, tearing, double vision, ear pain, ear discharge, nose pain, nose congestion, throat pain, throat swelling, mouth pain, mouth swelling, other Cardiovascular: Denies: no symptoms, chest pain, edema, irregular heart rate, lightheadedness, palpitations, syncope, other Respiratory: Denies: no symptoms, cough, shortness of breath, SOB with excertion, SOB at rest, sputum, wheezing, other Gastrointestinal/Abdominal: Denies: no symptoms, abdomen distended, abdominal pain, black stools, tarry stools, blood in stool, constipated, diarrhea, difficulty swallowing, nausea, poor appetite, poor fluid intake, rectal bleeding , vomiting, other Neurologic/Psychiatric: Denies: no symptoms, anxiety, depressed, emotional problems, headache, numbness, paresthesia, pre-existing deficit, seizure, tingling, tremors, weakness, other Endocrine: Denies: no symptoms, excessive sweating, flushing, intolerance to cold, intolerance to heat, increased hunger, increased thirst, increased urine, unexplained weight gain, unexplained weight loss, other Hematologic/Lymphatic: Denies: no symptoms, anemia, easy bleeding, easy bruising, adenopathy, other Allergies: Coded Allergies: No Known Allergies (Unverified , 05/18/19) Subjective 05/24: awake and alert, v mask, labs reviewed, apixaban 05/25: as per gi, ngt and eliquis tolerated Objective Objective Current Medications Medications (Trade) Dose Ordered Sig/Phillip Route PRN Reason Start Time Stop Time Status Last Admin Dose Admin Acetaminophen (Tylenol) 500 mg Q4H PRN ORAL Mild Pain/Temp > 100.5 05/20/19 20:30 06/19/19 20:29 Acetaminophen/ Hydrocodone Bitart ([place] 5/325) 1 tab Q6H PRN ORAL For Pain 05/20/19 20:30 05/27/19 20:29 05/24/19 13:41 Amiodarone HCl (Cordarone) 200 mg DAILY ORAL 05/26/19 09:00 06/21/19 20:59 Amlodipine Besylate (Norvasc) 5 mg DAILY ORAL 05/21/19 09:00 06/20/19 08:59 05/25/19 09:24 Docusate Sodium (Colace) 100 mg TID ORAL 05/21/19 18:00 06/20/19 08:59 05/25/19 17:39 Dronabinol (Marinol) 2.5 mg BID ORAL 05/22/19 18:00 06/21/19 17:59 05/25/19 17:39 Finasteride (Proscar) 5 mg DAILY ORAL 05/21/19 09:00 06/20/19 08:59 05/25/19 09:23 Ipratropium [place] (Atrovent) 500 mcg Q4H PRN HHN Shortness of Breath 05/20/19 20:30 05/25/19 20:29 05/21/19 10:45 Ipratropium [place] (Atrovent) 500 mcg Q6HRT HHN 05/21/19 13:00 05/26/19 12:59 05/25/19 13:31 Levofloxacin 50 ml @ 50 mls/hr Q24H IVPB 05/24/19 12:00 05/31/19 11:59 05/25/19 11:43 Metoprolol Tartrate (Lopressor) 25 mg Q12HR ORAL 05/20/19 21:00 06/19/19 20:59 05/25/19 09:24 Mirtazapine (Remeron) 15 mg BEDTIME ORAL 05/22/19 21:00 06/21/19 20:59 05/24/19 21:40 Sodium Chloride 1,000 ml @ 75 mls/hr [id number] IV 05/20/19 20:30 06/19/19 20:29 05/25/19 05:56 Tamsulosin HCl (Flomax) 0.4 mg BEDTIME ORAL 05/20/19 21:00 06/19/19 20:59 05/24/19 21:40 Vancomycin HCl (Vanco rx to dose) 1 ea DAILY PRN MISC Per rx protocol 05/20/19 20:30 06/19/19 20:29 Vancomycin HCl 750 mg/Sodium Chloride 275 ml @ 183.333 mls/hr Q24H IVPB 05/26/19 10:00 05/31/19 09:59 Last 24 Hour Vital Signs Date Time Temp Pulse Resp B/P (MAP) Pulse Ox O2 Delivery O2 Flow Rate FiO2 05/25/19 16:00 97.7 43 24 133/55 (81) 94 05/25/19 16:00 60 05/25/19 13:38 61 22 93 Venturi Mask 14.0 55 58 22 91 05/25/19 12:00 97.7 57 25 113/60 (77) 96 05/25/19 12:00 36 05/25/19 09:24 85 112/59 05/25/19 09:24 85 112/59 05/25/19 09:00 Non-Rebreather 10.0 05/25/19 08:00 97.5 85 20 112/59 (76) 99 05/25/19 08:00 83 05/25/19 07:41 91 Venturi Mask 14.0 55 05/25/19 07:31 67 22 93 Venturi Mask 14.0 55 69 22 96 05/25/19 04:00 97.5 50 20 104/44 (64) 97 05/25/19 04:00 71 05/25/19 01:50 74 20 93 Venturi Mask 10.0 45 70 20 92 05/25/19 00:00 81 05/25/19 00:00 97.5 70 20 122/51 (74) 97 05/24/19 21:00 50 130/56 05/24/19 21:00 Non-Rebreather 10.0 05/24/19 20:00 98.1 50 26 130/56 (80) 93 05/24/19 20:00 85 18 95 Venturi Mask 10.0 45 80 20 92 05/24/19 19:57 92 Venturi Mask 10.0 45 05/24/19 16:00 81 05/24/19 16:00 97.3 65 26 141/59 (86) 93 05/24/19 12:36 67 18 94 Venturi Mask 8.0 40 65 20 93 05/24/19 12:00 97.7 65 24 137/56 (83) 93 05/24/19 12:00 52 05/24/19 08:59 79 172/73 05/24/19 08:58 79 172/73 05/24/19 08:32 Venturi Mask 8.0 05/24/19 08:31 94 Venturi Mask 8.0 40 05/24/19 08:31 79 18 94 Venturi Mask 8.0 40 05/24/19 08:31 61 18 96 Venturi Mask 8.0 40 79 18 94 05/24/19 08:00 67 05/24/19 08:00 96.9 87 22 172/73 (106) 94 05/24/19 04:00 97.9 88 24 133/67 (89) 92 05/24/19 04:00 72 05/24/19 01:31 68 20 95 Venturi Mask 8.0 40 69 25 90 05/24/19 00:00 63 05/24/19 00:00 97.9 69 24 132/60 (84) 92 05/23/19 21:02 77 139/58 05/23/19 21:00 Venturi Mask 8.0 05/23/19 20:00 97.7 77 20 139/58 (85) 94 05/23/19 20:00 80 05/23/19 18:50 91 Venturi Mask 8.0 40 05/23/19 18:50 64 18 96 Venturi Mask 8.0 40 59 18 91 Intake and Output 05/24/19 05/25/19 18:59 06:59 Intake Total 1130 ml Output Total 400 ml 350 ml Balance -400 ml 780 ml Free Water 30 ml IV Total 900 ml Tube Feeding 200 ml Output Urine Total 400 ml 350 ml Labs Test 05/23/19 10:30 05/24/19 06:00 05/24/19 06:15 05/25/19 07:20 White Blood Count 7.9 K/UL (4.8-10.8) 11.6 K/UL (4.8-10.8) Red Blood Count 3.19 M/UL (4.70-6.10) 3.21 M/UL (4.70-6.10) Hemoglobin 9.3 G/DL (14.2-18.0) 9.7 G/DL (14.2-18.0) Hematocrit 28.6 % (42.0-52.0) 30.4 % (42.0-52.0) Mean Corpuscular Volume 90 FL (80-99) 95 FL (80-99) Mean Corpuscular Hemoglobin 29.3 PG (27.0-31.0) 30.3 PG (27.0-31.0) Mean Corpuscular Hemoglobin Concent 32.6 G/DL (32.0-36.0) 32.0 G/DL (32.0-36.0) Red Cell Distribution Width 15.1 % (11.6-14.8) 15.8 % (11.6-14.8) Platelet Count 293 K/UL (150-450) 265 K/UL (150-450) Mean Platelet Volume 4.2 FL (6.5-10.1) 4.6 FL (6.5-10.1) Neutrophils (%) (Auto) % (45.0-75.0) % (45.0-75.0) Lymphocytes (%) (Auto) % (20.0-45.0) % (20.0-45.0) Monocytes (%) (Auto) % (1.0-10.0) % (1.0-10.0) Eosinophils (%) (Auto) % (0.0-3.0) % (0.0-3.0) Basophils (%) (Auto) % (0.0-2.0) % (0.0-2.0) Differential Total Cells Counted 100 100 Neutrophils % (Manual) 90 % (45-75) 90 % (45-75) Lymphocytes % (Manual) 6 % (20-45) 3 % (20-45) Monocytes % (Manual) 3 % (1-10) 7 % (1-10) Eosinophils % (Manual) 1 % (0-3) 0 % (0-3) Basophils % (Manual) 0 % (0-2) 0 % (0-2) Band Neutrophils 0 % (0-8) 0 % (0-8) Platelet Estimate Adequate Adequate Platelet Morphology Normal Normal Anisocytosis 1+ 1+ Sodium Level 141 MMOL/L (136-145) 143 MMOL/L (136-145) Potassium Level 3.9 MMOL/L (3.5-5.1) 4.7 MMOL/L (3.5-5.1) Chloride Level 111 MMOL/L (98-107) 114 MMOL/L (98-107) Carbon Dioxide Level 19 MMOL/L (21-32) 23 MMOL/L (21-32) Anion Gap 11 mmol/L (5-15) 6 mmol/L (5-15) Blood Urea Nitrogen 36 mg/dL (7-18) 41 mg/dL (7-18) Creatinine 1.9 MG/DL (0.55-1.30) 2.0 MG/DL (0.55-1.30) Estimat Glomerular Filtration Rate mL/min (>60) mL/min (>60) Glucose Level 104 MG/DL (74-106) 130 MG/DL (74-106) Calcium Level 7.3 MG/DL (8.5-10.1) 7.8 MG/DL (8.5-10.1) Iron Level 56 ug/dL (50-175) Total Iron Binding Capacity 124 ug/dL (250-450) Percent Iron Saturation 45 % (15-50) Unsaturated Iron Binding 68 ug/dL (112-346) Total Bilirubin 0.3 MG/DL (0.2-1.0) Aspartate Amino Transf (AST/SGOT) 21 U/L (15-37) Alanine Aminotransferase (ALT/SGPT) 18 U/L (12-78) Alkaline Phosphatase 69 U/L (46-116) Total Protein 5.2 G/DL (6.4-8.2) Albumin 1.7 G/DL (3.4-5.0) Globulin 3.5 g/dL Albumin/Globulin Ratio 0.5 (1.0-2.7) Urine Eosinophils None seen (NONE SEEN) Random Vancomycin Level 16.0 ug/mL 19.1 ug/mL Magnesium Level 2.2 MG/DL (1.8-2.4) Height (Feet): 5 Height (Inches): 7.00 Weight (Pounds): 190 Objective PE: Vitals: reviewed General Appearance: NAD HEENT: normocephalic, atraumatic Neck: non-tender, normal alignment Respiratory/Chest: normal breath sounds bilaterall, v mask++ Cardiovascular/Chest: normal peripheral pulses, normal rate Abdomen: normal bowel sounds, soft, nontender Extremities: normal range of motion ++ right arm swelling Suleman Addison MD May 25, 2019 18:42
[2019-05-25 20:00] VITALS: BP 109/76
--- NOTE | 2019-05-25 20:00 | Progress Note ---
DATE: 05/24/2019 SUBJECTIVE: The patient is weak, minimally verbal. He is bradycardic and weak. The patient is having cognitive impairment. Resting, in no acute distress. MENTAL STATUS EXAMINATION: Alert and oriented x3. Mood is depressed. The patient was seen yesterday, May 24, 2019 usual. Mood is dysphoric. Affect is constricted, congruent with mood. Thought process is concrete. Thought content, no suicidal or homicidal ideation. Cognition is impaired. ASSESSMENT: 1. Failure to thrive. 2. Decreased appetite. 3. Cognitive impairment. PLAN: 1. Continue mirtazapine 15 mg at bedtime. 2. Provide the patient with reality orientation. 3. Discussed with the nurse. Piter Pedraza M.D. DR: GLENDY JOB#: [id number] CC:
--- NOTE | 2019-05-25 20:04 | General Progress Note ---
Assessment/Plan Problem List: (1) SOB (shortness of breath) ICD Codes: R06.02 - Shortness of breath SNOMED: 844857473 (2) Cellulitis ICD Codes: L03.90 - Cellulitis, unspecified SNOMED: 972180912 (3) Cellulitis of upper extremity ICD Codes: L03.119 - Cellulitis of unspecified part of limb SNOMED: 625005211 Qualifiers: Qualified Codes: L03.113 - Cellulitis of right upper limb (4) Renal insufficiency ICD Codes: N28.9 - Disorder of kidney and ureter, unspecified SNOMED: 257731207, 786814517 (5) Renal failure (ARF), acute on chronic ICD Codes: N17.9 - Acute kidney failure, unspecified; N18.9 - Chronic kidney disease, unspecified SNOMED: 905116617 (6) Anemia ICD Codes: D64.9 - Anemia, unspecified SNOMED: 024686516 (7) Hypothyroidism ICD Codes: E03.9 - Hypothyroidism, unspecified SNOMED: 34504690 (8) UTI (urinary tract infection) ICD Codes: N39.0 - Urinary tract infection, site not specified SNOMED: 64906449 Status: progressing, unchanged Assessment/Plan: still on oxygen poor appetite so consulted dr carrion cellulitis improving reviewed chart and labs afebrile Subjective ROS Limited/Unobtainable: Yes Allergies: Coded Allergies: No Known Allergies (Unverified , 05/18/19) Objective Last 24 Hour Vital Signs Date Time Temp Pulse Resp B/P (MAP) Pulse Ox O2 Delivery O2 Flow Rate FiO2 05/25/19 19:51 96 Non-Rebreather 15.0 100 05/25/19 19:51 66 23 94 Non-Rebreather 15.0 100 46 19 96 05/25/19 16:00 97.7 43 24 133/55 (81) 94 05/25/19 16:00 60 05/25/19 13:38 61 22 93 Venturi Mask 14.0 55 58 22 91 05/25/19 12:00 97.7 57 25 113/60 (77) 96 05/25/19 12:00 36 05/25/19 09:24 85 112/59 05/25/19 09:24 85 112/59 05/25/19 09:00 Non-Rebreather 10.0 12/29/19 08:00 97.5 85 20 112/59 (76) 99 05/25/19 08:00 83 05/25/19 07:41 91 Venturi Mask 14.0 55 05/25/19 07:31 67 22 93 Venturi Mask 14.0 55 69 22 96 05/25/19 04:00 97.5 50 20 104/44 (64) 97 05/25/19 04:00 71 05/25/19 01:50 74 20 93 Venturi Mask 10.0 45 70 20 92 05/25/19 00:00 81 05/25/19 00:00 97.5 70 20 122/51 (74) 97 05/24/19 21:00 50 130/56 05/24/19 21:00 Non-Rebreather 10.0 Intake and Output 05/24/19 05/25/19 19:00 07:00 Intake Total 75 ml 1055 ml Output Total 400 ml 350 ml Balance -325 ml 705 ml Free Water 30 ml IV Total 75 ml 825 ml Tube Feeding 200 ml Output Urine Total 400 ml 350 ml Laboratory Tests 05/25/19 07:20: White Blood Count 11.6H, Red Blood Count 3.21L, Hemoglobin 9.7L, Hematocrit 30.4L, Mean Corpuscular Volume 95, Mean Corpuscular Hemoglobin 30.3, Mean Corpuscular Hemoglobin Concent 32.0, Red Cell Distribution Width 15.8H, Platelet Count 265, Mean Platelet Volume 4.6L, Neutrophils (%) (Auto) , Lymphocytes (%) (Auto) , Monocytes (%) (Auto) , Eosinophils (%) (Auto) , Basophils (%) (Auto) , Differential Total Cells Counted 100, Neutrophils % ( Manual) 90H, Lymphocytes % (Manual) 3L, Monocytes % (Manual) 7, Eosinophils % ( Manual) 0, Basophils % (Manual) 0, Band Neutrophils 0, Platelet Estimate Adequate, Platelet Morphology Normal, Anisocytosis 1+, Sodium Level 143, Potassium Level 4.7, Chloride Level 114H, Carbon Dioxide Level 23, Anion Gap 6, Blood Urea Nitrogen 41H, Creatinine 2.0H, Estimat Glomerular Filtration Rate , Glucose Level 130H, Calcium Level 7.8L, Magnesium Level 2.2, Random Vancomycin Level 19.1 Height (Feet): 5 Height (Inches): 7.00 Weight (Pounds): 190 Cardiovascular: normal rate Respiratory/Chest: lungs clear Joslyn Wiggins MD May 25, 2019 20:04
[2019-05-25] MEDS: Tamsulosin 0.4mg cap ORAL SCH (21:18)
[2019-05-26] VITALS (16 sets, daily range): BP systolic 41–192; BP diastolic 22–104
[2019-05-26] MEDS: Ipratropium 0.02% Inh Soln 2.5ml UD HHN SCH ×2 (01:31→07:43)
[2019-05-26] MEDS: Docusate 100mg cap ORAL SCH ×3 (08:45→17:49)
[2019-05-26] MEDS: Eliquis 2.5mg tablet ORAL SCH ×2 (08:46→17:50)
[2019-05-26] MEDS: Dronabinol 2.5mg Cap ORAL SCH ×2 (08:46→17:50)
[2019-05-26] MEDS: Amiodarone 200mg tab ORAL SCH (08:46)
[2019-05-26] MEDS: Vancomycin 750mg/NS 275ml IVPB SCH ×2 (09:00)
--- NOTE | 2019-05-26 09:49 | General Progress Note ---
Assessment/Plan Problem List: (1) Dysphagia ICD Codes: R13.10 - Dysphagia, unspecified SNOMED: 59061760, 381933366 (2) Anemia ICD Codes: D64.9 - Anemia, unspecified SNOMED: 203947940 (3) Hypothyroidism ICD Codes: E03.9 - Hypothyroidism, unspecified SNOMED: 02943598 (4) Thrombus ICD Codes: I82.90 - Acute embolism and thrombosis of unspecified vein SNOMED: 14359133, 05500807, 917943911, 505299264 (5) A-fib ICD Codes: I48.91 - Unspecified atrial fibrillation SNOMED: 13100103 Status: progressing, unchanged Assessment/Plan: NGTF VQ scan r/o PE>> NEG fu hematology for DVT management on Eliquis not stable for PEG at this time will fu Subjective ROS Limited/Unobtainable: No Allergies: Coded Allergies: No Known Allergies (Unverified , 05/18/19) Objective Last 24 Hour Vital Signs Date Time Temp Pulse Resp B/P (MAP) Pulse Ox O2 Delivery O2 Flow Rate FiO2 05/26/19 08:47 59 136/57 05/26/19 08:46 64 136/57 05/26/19 08:00 97.3 64 25 136/57 (83) 98 05/26/19 07:44 52 22 93 Non-Rebreather 15.0 100 45 22 95 05/26/19 07:44 99 Non-Rebreather 15.0 100 05/26/19 04:00 97.7 74 22 123/58 (79) 96 05/26/19 04:00 73 05/26/19 01:31 60 23 95 Non-Rebreather 15.0 100 44 23 98 05/26/19 00:00 97.9 65 22 134/46 (75) 98 05/26/19 00:00 79 05/25/19 21:00 45 109/76 05/25/19 21:00 Non-Rebreather 10.0 05/25/19 20:00 92 05/25/19 20:00 97.9 45 26 109/76 (87) 95 05/25/19 19:51 96 Non-Rebreather 15.0 100 05/25/19 19:51 66 23 94 Non-Rebreather 15.0 100 46 19 96 05/25/19 16:00 97.7 43 24 133/55 (81) 94 05/25/19 16:00 60 05/25/19 13:38 61 22 93 Venturi Mask 14.0 55 58 22 91 05/25/19 12:00 97.7 57 25 113/60 (77) 96 05/25/19 12:00 36 Intake and Output 05/25/19 05/26/19 18:59 06:59 Intake Total 1050 ml Output Total 250 ml 150 ml Balance -250 ml 900 ml Free Water 50 ml IV Total 660 ml Tube Feeding 340 ml Output Urine Total 250 ml 150 ml Height (Feet): 5 Height (Inches): 7.00 Weight (Pounds): 99 General Appearance: lethargic EENT: normal ENT inspection Neck: supple Cardiovascular: normal rate Respiratory/Chest: decreased breath sounds Abdomen: normal bowel sounds, non tender, soft Edema: 3+ Arm (R), 3+ Leg (R) Valentino Lino MD May 26, 2019 09:49
--- NOTE | 2019-05-26 10:21 | Pulmonology Progress Note ---
Assessment/Plan Assessment/Plan IMPRESSION AND PLAN: 1. Pneumonia. Bilateral upper lobe. 2. Cellulitis. 3. History of COPD. 4. Hypertension. 5. Afib with RVR; rate controlled 6. No evidence for PE 7. Persistent hypoxia; CXR shows bilateral pleural effusions; will attempt to diurese (creatinine 2.0 noted) DISCUSSION: 1. No longer in a fib after amiodarone; transferred out of ICU 2. Agree with present management and care. 3. Continue medications and HHN with atrovent only 4. Reviewed Chest CT. 5. 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 6. continue antibiotics 7. Start diuresis Arsen Whittaker M.D. Subjective Interval Events: On partial rebreather mask; CXR shows bilateral effusuions Constitutional: Reports: no symptoms HEENT: Repors: no symptoms Respiratory: Reports: productive cough, shortness of breath Cardiovascular: Reports: no symptoms Gastrointestinal/Abdominal: Reports: no symptoms Allergies: Coded Allergies: No Known Allergies (Unverified , 05/18/19) Objective Last 24 Hour Vital Signs Date Time Temp Pulse Resp B/P (MAP) Pulse Ox O2 Delivery O2 Flow Rate FiO2 05/26/19 09:00 Non-Rebreather 10.0 05/26/19 08:47 59 136/57 05/26/19 08:46 64 136/57 05/26/19 08:00 97.3 64 25 136/57 (83) 98 05/26/19 07:44 52 22 93 Non-Rebreather 15.0 100 45 22 95 05/26/19 07:44 99 Non-Rebreather 15.0 100 05/26/19 04:00 97.7 74 22 123/58 (79) 96 05/26/19 04:00 73 05/26/19 01:31 60 23 95 Non-Rebreather 15.0 100 44 23 98 05/26/19 00:00 97.9 65 22 134/46 (75) 98 05/26/19 00:00 79 05/25/19 21:00 45 109/76 05/25/19 21:00 Non-Rebreather 10.0 05/25/19 20:00 92 05/25/19 20:00 97.9 45 26 109/76 (87) 95 05/25/19 19:51 96 Non-Rebreather 15.0 100 05/25/19 19:51 66 23 94 Non-Rebreather 15.0 100 46 19 96 05/25/19 16:00 97.7 43 24 133/55 (81) 94 05/25/19 16:00 60 05/25/19 13:38 61 22 93 Venturi Mask 14.0 55 58 22 91 05/25/19 12:00 97.7 57 25 113/60 (77) 96 05/25/19 12:00 36 Intake and Output 05/25/19 05/26/19 19:00 07:00 Intake Total 1090 ml Output Total 250 ml 150 ml Balance -250 ml 940 ml Free Water 50 ml IV Total 660 ml Tube Feeding 380 ml Output Urine Total 250 ml 150 ml General Appearance: no acute distress HEENT: normocephalic Respiratory/Chest: chest wall non-tender, decreased breath sounds Cardiovascular: normal peripheral pulses, normal rate Abdomen: normal bowel sounds Current Medications Medications (Trade) Dose Ordered Sig/Phillip Route PRN Reason Start Time Stop Time Status Last Admin Dose Admin Acetaminophen (Tylenol) 500 mg Q4H PRN ORAL Mild Pain/Temp > 100.5 05/20/19 20:30 06/19/19 20:29 Acetaminophen/ Hydrocodone Bitart ([place] 5/325) 1 tab Q6H PRN ORAL For Pain 05/20/19 20:30 05/27/19 20:29 05/24/19 13:41 Amiodarone HCl (Cordarone) 200 mg DAILY ORAL 05/26/19 09:00 06/21/19 20:59 05/26/19 08:46 Amlodipine Besylate (Norvasc) 5 mg DAILY ORAL 05/21/19 09:00 06/20/19 08:59 05/26/19 08:46 Apixaban (Eliquis) 2.5 mg BID ORAL 05/26/19 09:00 06/25/19 08:59 05/26/19 08:46 Docusate Sodium (Colace) 100 mg TID ORAL 05/21/19 18:00 06/20/19 08:59 05/26/19 08:45 Dronabinol (Marinol) 2.5 mg BID ORAL 05/22/19 18:00 06/21/19 17:59 05/26/19 08:46 Finasteride (Proscar) 5 mg DAILY ORAL 05/21/19 09:00 06/20/19 08:59 05/26/19 08:46 Ipratropium [place] (Atrovent) 500 mcg Q6HRT HHN 05/21/19 13:00 05/26/19 12:59 05/26/19 07:43 Levofloxacin 50 ml @ 50 mls/hr Q24H IVPB 05/24/19 12:00 05/31/19 11:59 05/25/19 11:43 Metoprolol Tartrate (Lopressor) 25 mg Q12HR ORAL 05/20/19 21:00 06/19/19 20:59 05/25/19 09:24 Mirtazapine (Remeron) 15 mg BEDTIME ORAL 05/22/19 21:00 06/21/19 20:59 05/24/19 21:40 Tamsulosin HCl (Flomax) 0.4 mg BEDTIME ORAL 05/20/19 21:00 06/19/19 20:59 05/25/19 21:18 Vancomycin HCl (Vanco rx to dose) 1 ea DAILY PRN MISC Per rx protocol 05/20/19 20:30 06/19/19 20:29 Vancomycin HCl 750 mg/Sodium Chloride 275 ml @ 183.333 mls/hr Q24H IVPB 05/26/19 10:00 05/31/19 09:59 05/26/19 09:00 Arsen Whittaker MD May 26, 2019 10:21
--- NOTE | 2019-05-26 11:31 | Nephrology Progress Note ---
Assessment/Plan Problem List: (1) Renal failure (ARF), acute on chronic (2) Cellulitis of upper extremity (3) A-fib (4) Pneumonia (5) UTI (urinary tract infection) (6) Anemia (7) Hypothyroidism Assessment - KIMO on CKD - Urinary tract infection. - Anemia- - Dehydration. - Cellulitis of Upper extremity - HTN Plan Per cardiology Anemia kumari- Avoid Nephrotoxics Per ID Allow CHANDA inhibitor to continue as long as renal function does not worsen. PICC line has been removed. CXR: Increased right pleural effusion and similar left pleural effusion. Increased interstitial and hazy opacities throughout the lungs. Subjective ROS Limited/Unobtainable: No Constitutional: Reports: malaise, weakness Objective Objective Last 24 Hour Vital Signs Date Time Temp Pulse Resp B/P (MAP) Pulse Ox O2 Delivery O2 Flow Rate FiO2 05/26/19 09:00 Non-Rebreather 10.0 05/26/19 08:47 59 136/57 05/26/19 08:46 64 136/57 05/26/19 08:00 97.3 64 25 136/57 (83) 98 05/26/19 07:44 52 22 93 Non-Rebreather 15.0 100 45 22 95 05/26/19 07:44 99 Non-Rebreather 15.0 100 05/26/19 04:00 97.7 74 22 123/58 (79) 96 05/26/19 04:00 73 05/26/19 01:31 60 23 95 Non-Rebreather 15.0 100 44 23 98 05/26/19 00:00 97.9 65 22 134/46 (75) 98 05/26/19 00:00 79 05/25/19 21:00 45 109/76 05/25/19 21:00 Non-Rebreather 10.0 05/25/19 20:00 92 05/25/19 20:00 97.9 45 26 109/76 (87) 95 05/25/19 19:51 96 Non-Rebreather 15.0 100 05/25/19 19:51 66 23 94 Non-Rebreather 15.0 100 46 19 96 05/25/19 16:00 97.7 43 24 133/55 (81) 94 05/25/19 16:00 60 05/25/19 13:38 61 22 93 Venturi Mask 14.0 55 58 22 91 05/25/19 12:00 97.7 57 25 113/60 (77) 96 05/25/19 12:00 36 Intake and Output 05/25/19 05/26/19 19:00 07:00 Intake Total 1090 ml Output Total 250 ml 150 ml Balance -250 ml 940 ml Free Water 50 ml IV Total 660 ml Tube Feeding 380 ml Output Urine Total 250 ml 150 ml Height (Feet): 5 Height (Inches): 7.00 Weight (Pounds): 99 General Appearance: mild distress Respiratory/Chest: decreased breath sounds, rhonchi - bilaterally Reinier Mera MD May 26, 2019 11:31
[2019-05-26] MEDS ORDERED: LEVOFLOXACIN500 MG ORAL (11:36)
[2019-05-26 12:16] LABS: ANION GAP 7 mmol/L (5-15); BLOOD UREA NITROGEN 56 mg/dL (7-18); CARBON DIOXIDE 26 MMOL/L (21-32); CHLORIDE 116 MMOL/L (98-107); CREATININE 2.5 MG/DL (0.55-1.30); POTASSIUM 5.4 MMOL/L (3.5-5.1); SODIUM 149 MMOL/L (136-145)
--- NOTE | 2019-05-26 12:42 | Infectious Diseases Prog Note ---
Assessment/Plan Assessment/Plan 84 yo male with PMHx of HTN who was sent to the ED on 05/18/19 from his half-way for possible picc line infection. Swelling around PICC line Minimal to no erythema and no purulent drainage Not likely to be infected Blood Cx 05/18/19 - NGTD PICC Tip Cx 05/18/19 - NGTD PICC line removed 05/18/19 No Leukocytosis No fever OM - Let foot On Vancomycin at nursing End date early May PNA on 8L NC CXR - Some LLL Atelectasis vs PNA, Nodules CT 05/20/19 - Bilateral upper lobe infiltrates worse on the right. Consider pneumonia. Bilateral pleural effusions moderate in size HTN PLAN - Continue Levofloxacin #4/7 - Continue Vancomycin per pharmacy - End date per half-way MD - Monitor CBC and Temps Thank you for this consult. [facility] will continue to follow the patient with you during this hospitalization. Subjective Allergies: Coded Allergies: No Known Allergies (Unverified , 05/18/19) Subjective Afebrile No Leukocytosis On 10L NRB Objective Vital Signs Last 24 Hour Vital Signs Date Time Temp Pulse Resp B/P (MAP) Pulse Ox O2 Delivery O2 Flow Rate FiO2 05/26/19 09:00 Non-Rebreather 10.0 05/26/19 08:47 59 136/57 05/26/19 08:46 64 136/57 05/26/19 08:00 97.3 64 25 136/57 (83) 98 05/26/19 07:44 52 22 93 Non-Rebreather 15.0 100 45 22 95 05/26/19 07:44 99 Non-Rebreather 15.0 100 05/26/19 04:00 97.7 74 22 123/58 (79) 96 05/26/19 04:00 73 05/26/19 01:31 60 23 95 Non-Rebreather 15.0 100 44 23 98 05/26/19 00:00 97.9 65 22 134/46 (75) 98 05/26/19 00:00 79 05/25/19 21:00 45 109/76 05/25/19 21:00 Non-Rebreather 10.0 05/25/19 20:00 92 05/25/19 20:00 97.9 45 26 109/76 (87) 95 05/25/19 19:51 96 Non-Rebreather 15.0 100 05/25/19 19:51 66 23 94 Non-Rebreather 15.0 100 46 19 96 05/25/19 16:00 97.7 43 24 133/55 (81) 94 05/25/19 16:00 60 05/25/19 13:38 61 22 93 Venturi Mask 14.0 55 58 22 91 Height (Feet): 5 Height (Inches): 7.00 Weight (Pounds): 99 Objective Gen: NAD, On NRB HEENT: NCAT, MMM, EOMI LUNGS: Coarse B/L, Tight and wheezy CARDS: RRR, S1, S2 ABD: Soft, NT, ND Laboratory Tests Test 05/26/19 11:35 Sodium Level 149 MMOL/L (136-145) H Potassium Level 5.4 MMOL/L (3.5-5.1) H Chloride Level 116 MMOL/L (98-107) H Carbon Dioxide Level 26 MMOL/L (21-32) Anion Gap 7 mmol/L (5-15) Blood Urea Nitrogen 56 mg/dL (7-18) H Creatinine 2.5 MG/DL (0.55-1.30) H Estimat Glomerular Filtration Rate mL/min (>60) Glucose Level 154 MG/DL (74-106) H Calcium Level 8.0 MG/DL (8.5-10.1) L Current Medications Medications (Trade) Dose Ordered Sig/Phillip Route PRN Reason Start Time Stop Time Status Last Admin Dose Admin Acetaminophen (Tylenol) 500 mg Q4H PRN ORAL Mild Pain/Temp > 100.5 05/20/19 20:30 06/19/19 20:29 Acetaminophen/ Hydrocodone Bitart ([place] 5/325) 1 tab Q6H PRN ORAL For Pain 05/20/19 20:30 05/27/19 20:29 05/24/19 13:41 Amiodarone HCl (Cordarone) 200 mg DAILY ORAL 05/26/19 09:00 06/21/19 20:59 05/26/19 08:46 Amlodipine Besylate (Norvasc) 5 mg DAILY ORAL 05/21/19 09:00 06/20/19 08:59 05/26/19 08:46 Apixaban (Eliquis) 2.5 mg BID ORAL 05/26/19 09:00 06/25/19 08:59 05/26/19 08:46 Docusate Sodium (Colace) 100 mg TID ORAL 05/21/19 18:00 06/20/19 08:59 05/26/19 08:45 Dronabinol (Marinol) 2.5 mg BID ORAL 05/22/19 18:00 06/21/19 17:59 05/26/19 08:46 Finasteride (Proscar) 5 mg DAILY ORAL 05/21/19 09:00 06/20/19 08:59 05/26/19 08:46 Furosemide (Lasix) 40 mg EVERY 12 HOURS IV 05/26/19 10:30 06/25/19 10:29 05/26/19 10:40 Ipratropium [place] (Atrovent) 500 mcg Q6HRT HHN 05/21/19 13:00 05/26/19 12:59 05/26/19 07:43 Levofloxacin 50 ml @ 50 mls/hr Q24H IVPB 05/24/19 12:00 05/31/19 11:59 05/26/19 11:49 Metoprolol Tartrate (Lopressor) 25 mg Q12HR ORAL 05/20/19 21:00 06/19/19 20:59 05/25/19 09:24 Mirtazapine (Remeron) 15 mg BEDTIME ORAL 05/22/19 21:00 06/21/19 20:59 05/24/19 21:40 Tamsulosin HCl (Flomax) 0.4 mg BEDTIME ORAL 05/20/19 21:00 06/19/19 20:59 05/25/19 21:18 Vancomycin HCl (Vanco rx to dose) 1 ea DAILY PRN MISC Per rx protocol 05/20/19 20:30 06/19/19 20:29 Vancomycin HCl 750 mg/Sodium Chloride 275 ml @ 183.333 mls/hr Q24H IVPB 05/26/19 10:00 05/31/19 09:59 05/26/19 09:00 Jimbo Dodd MD May 26, 2019 12:42
--- NOTE | 2019-05-26 13:22 | CDS Physician Query ---
Clarification is required for compliance, coding accuracy, and to reflect severity of illness for this patient Dear Dr. Joslyn Wiggins Date: 05/26/2019 Swim Instructor/CDS Name: Sharon Mullen Clinical Documentation states: HNP: 84-year-old male from [facility], who presented with above-mentioned diagnosis. Right arm PICC line area looks red and swollen...Malnutrition. RD note: Decreased sodium intake needs R/T cardiac hx as evidenced by h/o HTN and renal insufficiency, dx of Atrial fibrillation with rapid ventricular response...CURRENT TF:Glucerna 1.5 @50ml/hr x24 hsr BMI 15.5 Please select the most appropriate option: [] Protein/Calorie Malnutrition [] Mild [] Moderate [] Severe [] Hypoalbuminemia [] Cachexia [] Underweight [] Intestinal malabsorption [] Other [] Unable to determine [] Not Applicable Present on Admission: [] Yes [] No [] Clinically Undetermined Physician signature Date Please also document in your Progress Notes and/or Discharge Summary and indicate if the condition was present on admission. MTDD
--- NOTE | 2019-05-26 13:28 | CDS Physician Query ---
Clarification is required for compliance, coding accuracy, and to reflect severity of illness for this patient Dear Dr. Arsen Whittkaer Date 05/26/2019 [employer]PEARL Mullen Clinical Documentation states:HNP: 84-year-old male from [facility] , who presented with above-mentioned diagnosis. Right arm PICC line area looks red and swollen. The patient was admitted to telemetry for further care. Currently, calm, O2 NC 05/26 pulm note: Pneumonia. Bilateral upper lobe...Persistent hypoxia; CXR shows bilateral pleural effusions; will attempt to diurese (creatinine 2.0 noted ) Treatment: on 15 L O2 with pulse ox 93 on 05/26 Please clarify if the patient had any of the following conditions based on the above clinical findings: [] Acute Respiratory Failure [] Chronic Respiratory Failure [] Acute on Chronic Respiratory Failure [] Acute Respiratory Distress [] Other: [] Unable to Determined Present on Admission: [] Yes [] No [] Clinically Undetermined Physician signature Date Please also document in your Progress Notes and/or Discharge Summary and indicate if the condition was present on admission. MTDD
--- NOTE | 2019-05-26 15:39 | Cardiac Electrophysiology PN ---
Assessment/Plan Assessment/Plan 1. Paroxysmal Atrial fibrillation with rapid ventricular response. Was on amiodarone gtt, now in sinus rhythm. On PO amiodarone 200, Lopressor 25 bid and Eliquis 2.5 bid. 2. Bradycardia with HR dropping to 30s. Resolved after Amiodarone decreased to 200 daily 3. Hypertension, on Norvasc 5 and metoprolol 25 bid 4. Renal failure with Cr 2.0. Off ACEI and ARB 5. Dysphagia. NG tube feeding FU Dr Lino 6. Swelling around PICC line that was removed 05/18/19 Blood Cx 05/18/19 - NGTD 7. Respiratory failure on 15 liters NRB face Mask DW RN Subjective Subjective No CP or SOB. Still has NG tube. Coffee ground emesis resolved. On 15 liter NRB face mask Had 8 beats of VT at 6.47 am 05/25/19 Objective Last 24 Hour Vital Signs Date Time Temp Pulse Resp B/P (MAP) Pulse Ox O2 Delivery O2 Flow Rate FiO2 05/26/19 12:00 89 05/26/19 12:00 97.3 74 28 125/42 (69) 97 05/26/19 09:00 Non-Rebreather 10.0 05/26/19 08:47 59 136/57 05/26/19 08:46 64 136/57 05/26/19 08:00 71 05/26/19 08:00 97.3 64 25 136/57 (83) 98 05/26/19 07:44 52 22 93 Non-Rebreather 15.0 100 45 22 95 05/26/19 07:44 99 Non-Rebreather 15.0 100 05/26/19 04:00 97.7 74 22 123/58 (79) 96 05/26/19 04:00 73 05/26/19 01:31 60 23 95 Non-Rebreather 15.0 100 44 23 98 05/26/19 00:00 97.9 65 22 134/46 (75) 98 05/26/19 00:00 79 05/25/19 21:00 45 109/76 05/25/19 21:00 Non-Rebreather 10.0 05/25/19 20:00 92 05/25/19 20:00 97.9 45 26 109/76 (87) 95 12/29/19 19:51 96 Non-Rebreather 15.0 100 05/25/19 19:51 66 23 94 Non-Rebreather 15.0 100 46 19 96 05/25/19 16:00 97.7 43 24 133/55 (81) 94 05/25/19 16:00 60 Intake and Output 05/25/19 05/26/19 19:00 07:00 Intake Total 1090 ml Output Total 250 ml 150 ml Balance -250 ml 940 ml Free Water 50 ml IV Total 660 ml Tube Feeding 380 ml Output Urine Total 250 ml 150 ml Laboratory Tests Test 05/26/19 11:35 Sodium Level 149 MMOL/L (136-145) H Potassium Level 5.4 MMOL/L (3.5-5.1) H Chloride Level 116 MMOL/L (98-107) H Carbon Dioxide Level 26 MMOL/L (21-32) Anion Gap 7 mmol/L (5-15) Blood Urea Nitrogen 56 mg/dL (7-18) H Creatinine 2.5 MG/DL (0.55-1.30) H Estimat Glomerular Filtration Rate mL/min (>60) Glucose Level 154 MG/DL (74-106) H Calcium Level 8.0 MG/DL (8.5-10.1) L Objective HEENT: No JVD. NG tube is in LUNGS: Clear CVS: RRR ABDOMEN: Soft. EXT No edema. Left leg in splint Del Alcaraz MD May 26, 2019 15:38
--- NOTE | 2019-05-26 16:10 | Surgery Progress Note ---
Surgery Progress Note Subjective Additional Comments no acute events comfortable labs pending exam unchanged ill appearing Objective Last 24 Hour Vital Signs Date Time Temp Pulse Resp B/P (MAP) Pulse Ox O2 Delivery O2 Flow Rate FiO2 05/26/19 12:00 89 05/26/19 12:00 97.3 74 28 125/42 (69) 97 05/26/19 09:00 Non-Rebreather 10.0 05/26/19 08:47 59 136/57 05/26/19 08:46 64 136/57 05/26/19 08:00 71 05/26/19 08:00 97.3 64 25 136/57 (83) 98 05/26/19 07:44 52 22 93 Non-Rebreather 15.0 100 45 22 95 05/26/19 07:44 99 Non-Rebreather 15.0 100 05/26/19 04:00 97.7 74 22 123/58 (79) 96 05/26/19 04:00 73 05/26/19 01:31 60 23 95 Non-Rebreather 15.0 100 44 23 98 05/26/19 00:00 97.9 65 22 134/46 (75) 98 05/26/19 00:00 79 05/25/19 21:00 45 109/76 05/25/19 21:00 Non-Rebreather 10.0 05/25/19 20:00 92 05/25/19 20:00 97.9 45 26 109/76 (87) 95 05/25/19 19:51 96 Non-Rebreather 15.0 100 05/25/19 19:51 66 23 94 Non-Rebreather 15.0 100 46 19 96 I&O Intake and Output 05/25/19 05/26/19 19:00 07:00 Intake Total 1090 ml Output Total 250 ml 150 ml Balance -250 ml 940 ml Free Water 50 ml IV Total 660 ml Tube Feeding 380 ml Output Urine Total 250 ml 150 ml Dressing: other Wound: other Drains: other Cardiovascular: RSR Respiratory: decreased breath sounds Abdomen: soft, present bowel sounds Extremities: no tenderness, no cyanosis, other Laboratory Tests Test 05/26/19 11:35 Sodium Level 149 MMOL/L (136-145) H Potassium Level 5.4 MMOL/L (3.5-5.1) H Chloride Level 116 MMOL/L (98-107) H Carbon Dioxide Level 26 MMOL/L (21-32) Anion Gap 7 mmol/L (5-15) Blood Urea Nitrogen 56 mg/dL (7-18) H Creatinine 2.5 MG/DL (0.55-1.30) H Estimat Glomerular Filtration Rate mL/min (>60) Glucose Level 154 MG/DL (74-106) H Calcium Level 8.0 MG/DL (8.5-10.1) L Plan Problems: (1) Cellulitis of upper extremity Assessment & Plan: 84M with RUE cellulitis, edema, erythema. no drainage. has RUE picc line recommend removal of picc. removed at bedside by myself on 05/18. pressure held, hemostasis noted, dressings applied. cath tip sent for cultures DVT duplex studies with acute thrombus IV Abx as per ID UA pending Cx results keep RUE elevated on pillows okay for diet AM labs anticoagulation off load pressure for dti noted cellulitis and edema improved will follow with recs thank you (2) Cellulitis Assessment & Plan: Pt presented on admission with reabsorbing blister lateral R heel. Base of injury indurated with delineated margins(L)4cm x (W)3cm.Non- blanching erythema Sacrum ,R and L buttocks(L)8.5cm x (W)9cm, with a partial thickness pressure injury noted to L buttocks. Base of wound is moist and viable (L)2.3cm x (W)3cm. Area around wound tender when minimally palpated. Pt noted to be wearing splint L foot. Per pt he fractured foot a few weeks ago. Splint removed to assess skin integrity. L heel and malleoli are pink and blanchable.Cavilon Skin Barrier applied to L heel and malleoli and each area covered with Optifoam drsg. Splint reapplied. No other skin concerns noted. Tx.Plan: Apply Moisture Barrier to Buttocks. Cover with Optifoam drsg. Changee very 3 days and prn. Apply Cavilon Skin Barrier to both heels. Cover each heel with Optifoam drsg. Change every 7 days and prn APM/SCOOBY Mattress overlay. Reposition at least every 2hours or as tolerated. Off-load heels with pillow. Bennett Logan May 26, 2019 16:10
--- NOTE | 2019-05-26 16:16 | Hematology/Onc Progress Note ---
Assessment/Plan Assessment/Plan Assessment and Recs: # Right upper arm extremity axillary vein dvt --> agree to continue eliquis --> as per cards low dose eliquis --> continue for total of minimum of 3 months --> rescan arm in 3 mo # Anemia of chronic disease due to underlying chronic medical issues, multifactorial v Gi bleed --> Anemia workup has been reviewed, rule out gi bleed --> No evidence of hemolysis is noted, peripheral smear has been reviewed. --> Hgb goal >7. Transfuse prn. --> Epogen or iron at this time is not particularly indicated --> Medications have been reviewed --> low threshold for gi evaluation in case has occult + --> hgb trend: 9.3->9.7 # Cellulitis of upper extremity, likely picc line infection --> as per id on ax --> picc off --> levoflox/vanc # Renal insufficiency --> per Dr. Mera # Pneumonia --> abx per id # Dehydration. --> goal of euvolemia # Paroxysmal Atrial fibrillation with rapid ventricular response was on amiodarone gtt, now in sinus rhythm. --> per cards On PO amiodarone 200 bid, Lopressor 25 bid and Eliquis 2.5 bid # Dysphagia with ng tube The timing of this note does not necessarily reflect the time of the patient was seen. Greatly appreciate consultation. Subjective HEENT: Denies: no symptoms, eye pain, blurred vision, tearing, double vision, ear pain, ear discharge, nose pain, nose congestion, throat pain, throat swelling, mouth pain, mouth swelling, other Cardiovascular: Denies: no symptoms, chest pain, edema, irregular heart rate, lightheadedness, palpitations, syncope, other Respiratory: Denies: no symptoms, cough, shortness of breath, SOB with excertion, SOB at rest, sputum, wheezing, other Gastrointestinal/Abdominal: Denies: no symptoms, abdomen distended, abdominal pain, black stools, tarry stools, blood in stool, constipated, diarrhea, difficulty swallowing, nausea, poor appetite, poor fluid intake, rectal bleeding , vomiting, other Genitourinary: Denies: no symptoms, burning, discharge, frequency, flank pain, hematuria, incontinence, pain, urgency, other Neurologic/Psychiatric: Denies: no symptoms, anxiety, depressed, emotional problems, headache, numbness, paresthesia, pre-existing deficit, seizure, tingling, tremors, weakness, other Endocrine: Denies: no symptoms, excessive sweating, flushing, intolerance to cold, intolerance to heat, increased hunger, increased thirst, increased urine, unexplained weight gain, unexplained weight loss, other Allergies: Coded Allergies: No Known Allergies (Unverified , 05/18/19) Subjective 05/24: awake and alert, v mask, labs reviewed, apixaban 05/25: as per gi, ngt and eliquis tolerated 05/26: pending clearance but still with ng and nonrebreather Objective Objective Current Medications Medications (Trade) Dose Ordered Sig/Phillip Route PRN Reason Start Time Stop Time Status Last Admin Dose Admin Acetaminophen (Tylenol) 500 mg Q4H PRN ORAL Mild Pain/Temp > 100.5 05/20/19 20:30 06/19/19 20:29 Acetaminophen/ Hydrocodone Bitart ([place] 5/325) 1 tab Q6H PRN ORAL For Pain 05/20/19 20:30 05/27/19 20:29 05/24/19 13:41 Amiodarone HCl (Cordarone) 200 mg DAILY ORAL 05/26/19 09:00 06/21/19 20:59 05/26/19 08:46 Amlodipine Besylate (Norvasc) 5 mg DAILY ORAL 05/21/19 09:00 06/20/19 08:59 05/26/19 08:46 Apixaban (Eliquis) 2.5 mg BID ORAL 05/26/19 09:00 06/25/19 08:59 05/26/19 08:46 Docusate Sodium (Colace) 100 mg TID ORAL 05/21/19 18:00 06/20/19 08:59 05/26/19 13:20 Dronabinol (Marinol) 2.5 mg BID ORAL 05/22/19 18:00 06/21/19 17:59 05/26/19 08:46 Finasteride (Proscar) 5 mg DAILY ORAL 05/21/19 09:00 06/20/19 08:59 05/26/19 08:46 Furosemide (Lasix) 40 mg EVERY 12 HOURS IV 05/26/19 10:30 06/25/19 10:29 05/26/19 10:40 Levofloxacin 50 ml @ 50 mls/hr Q24H IVPB 05/24/19 12:00 05/31/19 11:59 05/26/19 11:49 Metoprolol Tartrate (Lopressor) 25 mg Q12HR ORAL 05/20/19 21:00 06/19/19 20:59 05/25/19 09:24 Mirtazapine (Remeron) 15 mg BEDTIME ORAL 05/22/19 21:00 06/21/19 20:59 05/24/19 21:40 Tamsulosin HCl (Flomax) 0.4 mg BEDTIME ORAL 05/20/19 21:00 06/19/19 20:59 05/25/19 21:18 Vancomycin HCl (Vanco rx to dose) 1 ea DAILY PRN MISC Per rx protocol 05/20/19 20:30 06/19/19 20:29 Vancomycin HCl 750 mg/Sodium Chloride 275 ml @ 183.333 mls/hr Q24H IVPB 05/26/19 10:00 05/31/19 09:59 05/26/19 09:00 Last 24 Hour Vital Signs Date Time Temp Pulse Resp B/P (MAP) Pulse Ox O2 Delivery O2 Flow Rate FiO2 05/26/19 12:00 89 05/26/19 12:00 97.3 74 28 125/42 (69) 97 05/26/19 09:00 Non-Rebreather 10.0 05/26/19 08:47 59 136/57 05/26/19 08:46 64 136/57 05/26/19 08:00 71 05/26/19 08:00 97.3 64 25 136/57 (83) 98 05/26/19 07:44 52 22 93 Non-Rebreather 15.0 100 45 22 95 05/26/19 07:44 99 Non-Rebreather 15.0 100 05/26/19 04:00 97.7 74 22 123/58 (79) 96 05/26/19 04:00 73 05/26/19 01:31 60 23 95 Non-Rebreather 15.0 100 44 23 98 05/26/19 00:00 97.9 65 22 134/46 (75) 98 05/26/19 00:00 79 05/25/19 21:00 45 109/76 05/25/19 21:00 Non-Rebreather 10.0 05/25/19 20:00 92 05/25/19 20:00 97.9 45 26 109/76 (87) 95 05/25/19 19:51 96 Non-Rebreather 15.0 100 05/25/19 19:51 66 23 94 Non-Rebreather 15.0 100 46 19 96 05/25/19 16:00 97.7 43 24 133/55 (81) 94 05/25/19 16:00 60 05/25/19 13:38 61 22 93 Venturi Mask 14.0 55 58 22 91 05/25/19 12:00 97.7 57 25 113/60 (77) 96 05/25/19 12:00 36 05/25/19 09:24 85 112/59 05/25/19 09:24 85 112/59 05/25/19 09:00 Non-Rebreather 10.0 05/25/19 08:00 97.5 85 20 112/59 (76) 99 05/25/19 08:00 83 05/25/19 07:41 91 Venturi Mask 14.0 55 05/25/19 07:31 67 22 93 Venturi Mask 14.0 55 69 22 96 05/25/19 04:00 97.5 50 20 104/44 (64) 97 05/25/19 04:00 71 05/25/19 01:50 74 20 93 Venturi Mask 10.0 45 70 20 92 05/25/19 00:00 81 05/25/19 00:00 97.5 70 20 122/51 (74) 97 05/24/19 21:00 50 130/56 05/24/19 21:00 Non-Rebreather 10.0 05/24/19 20:00 98.1 50 26 130/56 (80) 93 05/24/19 20:00 85 18 95 Venturi Mask 10.0 45 80 20 92 05/24/19 19:57 92 Venturi Mask 10.0 45 Intake and Output 05/25/19 05/26/19 19:00 07:00 Intake Total 1090 ml Output Total 250 ml 150 ml Balance -250 ml 940 ml Free Water 50 ml IV Total 660 ml Tube Feeding 380 ml Output Urine Total 250 ml 150 ml Labs Test 05/24/19 06:00 05/24/19 06:15 05/25/19 07:20 05/26/19 11:35 Urine Eosinophils None seen (NONE SEEN) Random Vancomycin Level 16.0 ug/mL 19.1 ug/mL White Blood Count 11.6 K/UL (4.8-10.8) Red Blood Count 3.21 M/UL (4.70-6.10) Hemoglobin 9.7 G/DL (14.2-18.0) Hematocrit 30.4 % (42.0-52.0) Mean Corpuscular Volume 95 FL (80-99) Mean Corpuscular Hemoglobin 30.3 PG (27.0-31.0) Mean Corpuscular Hemoglobin Concent 32.0 G/DL (32.0-36.0) Red Cell Distribution Width 15.8 % (11.6-14.8) Platelet Count 265 K/UL (150-450) Mean Platelet Volume 4.6 FL (6.5-10.1) Neutrophils (%) (Auto) % (45.0-75.0) Lymphocytes (%) (Auto) % (20.0-45.0) Monocytes (%) (Auto) % (1.0-10.0) Eosinophils (%) (Auto) % (0.0-3.0) Basophils (%) (Auto) % (0.0-2.0) Differential Total Cells Counted 100 Neutrophils % (Manual) 90 % (45-75) Lymphocytes % (Manual) 3 % (20-45) Monocytes % (Manual) 7 % (1-10) Eosinophils % (Manual) 0 % (0-3) Basophils % (Manual) 0 % (0-2) Band Neutrophils 0 % (0-8) Platelet Estimate Adequate Platelet Morphology Normal Anisocytosis 1+ Sodium Level 143 MMOL/L (136-145) 149 MMOL/L (136-145) Potassium Level 4.7 MMOL/L (3.5-5.1) 5.4 MMOL/L (3.5-5.1) Chloride Level 114 MMOL/L (98-107) 116 MMOL/L (98-107) Carbon Dioxide Level 23 MMOL/L (21-32) 26 MMOL/L (21-32) Anion Gap 6 mmol/L (5-15) 7 mmol/L (5-15) Blood Urea Nitrogen 41 mg/dL (7-18) 56 mg/dL (7-18) Creatinine 2.0 MG/DL (0.55-1.30) 2.5 MG/DL (0.55-1.30) Estimat Glomerular Filtration Rate mL/min (>60) mL/min (>60) Glucose Level 130 MG/DL (74-106) 154 MG/DL (74-106) Calcium Level 7.8 MG/DL (8.5-10.1) 8.0 MG/DL (8.5-10.1) Magnesium Level 2.2 MG/DL (1.8-2.4) Height (Feet): 5 Height (Inches): 7.00 Weight (Pounds): 99 Objective PE: Vitals: reviewed General Appearance: NAD HEENT: normocephalic, atraumatic++ ngt Neck: non-tender, normal alignment Respiratory/Chest: normal breath sounds bilaterall, v mask++ Cardiovascular/Chest: normal peripheral pulses, normal rate Abdomen: normal bowel sounds, soft, nontender Extremities: normal range of motion ++ right arm swelling Suleman Addison MD May 26, 2019 16:16
--- NOTE | 2019-05-26 20:25 | General Progress Note ---
Assessment/Plan Problem List: (1) SOB (shortness of breath) ICD Codes: R06.02 - Shortness of breath SNOMED: 740463834 (2) Cellulitis ICD Codes: L03.90 - Cellulitis, unspecified SNOMED: 819412403 (3) Cellulitis of upper extremity ICD Codes: L03.119 - Cellulitis of unspecified part of limb SNOMED: 258160010 Qualifiers: Qualified Codes: L03.113 - Cellulitis of right upper limb (4) Renal insufficiency ICD Codes: N28.9 - Disorder of kidney and ureter, unspecified SNOMED: 616575156, 031770631 (5) Renal failure (ARF), acute on chronic ICD Codes: N17.9 - Acute kidney failure, unspecified; N18.9 - Chronic kidney disease, unspecified SNOMED: 375429793 (6) Anemia ICD Codes: D64.9 - Anemia, unspecified SNOMED: 688061944 (7) Hypothyroidism ICD Codes: E03.9 - Hypothyroidism, unspecified SNOMED: 67121381 (8) UTI (urinary tract infection) ICD Codes: N39.0 - Urinary tract infection, site not specified SNOMED: 65966920 Status: progressing, unchanged Assessment/Plan: still on oxygen poor appetite so consulted dr carrion cellulitis improving on high volume of oxygen audible crackles dc iv fluids lethargic ng tube unsafe for dc Subjective ROS Limited/Unobtainable: Yes Allergies: Coded Allergies: No Known Allergies (Unverified , 05/18/19) Objective Last 24 Hour Vital Signs Date Time Temp Pulse Resp B/P (MAP) Pulse Ox O2 Delivery O2 Flow Rate FiO2 05/26/19 20:08 91 Non-Rebreather 15.0 100 05/26/19 16:00 97.7 68 28 115/48 (70) 92 05/26/19 16:00 73 05/26/19 12:00 89 05/26/19 12:00 97.3 74 28 125/42 (69) 97 05/26/19 09:00 Non-Rebreather 10.0 05/26/19 08:47 59 136/57 05/26/19 08:46 64 136/57 05/26/19 08:00 71 05/26/19 08:00 97.3 64 25 136/57 (83) 98 05/26/19 07:44 52 22 93 Non-Rebreather 15.0 100 45 22 95 05/26/19 07:44 99 Non-Rebreather 15.0 100 05/26/19 04:00 97.7 74 22 123/58 (79) 96 05/26/19 04:00 73 05/26/19 01:31 60 23 95 Non-Rebreather 15.0 100 44 23 98 05/26/19 00:00 97.9 65 22 134/46 (75) 98 05/26/19 00:00 79 05/25/19 21:00 45 109/76 05/25/19 21:00 Non-Rebreather 10.0 Intake and Output 05/25/19 05/26/19 19:00 07:00 Intake Total 1090 ml Output Total 250 ml 150 ml Balance -250 ml 940 ml Free Water 50 ml IV Total 660 ml Tube Feeding 380 ml Output Urine Total 250 ml 150 ml Laboratory Tests 05/26/19 11:35: Sodium Level 149H, Potassium Level 5.4H, Chloride Level 116H, Carbon Dioxide Level 26, Anion Gap 7, Blood Urea Nitrogen 56H, Creatinine 2.5H, Estimat Glomerular Filtration Rate , Glucose Level 154H, Calcium Level 8.0L Height (Feet): 5 Height (Inches): 7.00 Weight (Pounds): 99 Cardiovascular: normal rate Respiratory/Chest: lungs clear Abdomen: soft Joslyn Wiggins MD May 26, 2019 20:25
[2019-05-26] MEDS: Tamsulosin 0.4mg cap ORAL SCH (21:04)
[2019-05-26] MEDS ORDERED: Sodium Bicarbonate 50ml Carp ONE (23:10)
[2019-05-27] VITALS (82 sets, daily range): BP systolic 80–128; BP diastolic 32–64
[2019-05-27 05:17] LABS: HEMATOCRIT 25.3 % (42.0-52.0); HEMOGLOBIN 8.1 G/DL (14.2-18.0); MEAN CORPUSCULAR VOLUME 95 FL (80-99); PLATELET COUNT 226 K/UL (150-450); RED BLOOD COUNT 2.65 M/UL (4.70-6.10); RED CELL DISTRIBUTION WIDTH 16.3 % (11.6-14.8); WHITE BLOOD COUNT 9.5 K/UL (4.8-10.8)
[2019-05-27 06:03] LABS: ALANINE AMINOTRANSFERASE 23 U/L (12-78); ALBUMIN 1.5 G/DL (3.4-5.0); ALBUMIN/GLOBULIN RATIO 0.5 (1.0-2.7); ALKALINE PHOSPHATASE 64 U/L (46-116); ANION GAP 5 mmol/L (5-15); ASPARTATE AMINO TRANSFERASE 30 U/L (15-37); BILIRUBIN,TOTAL 0.3 MG/DL (0.2-1.0); BLOOD UREA NITROGEN 59 mg/dL (7-18); CALCIUM 7.8 MG/DL (8.5-10.1); CARBON DIOXIDE 25 MMOL/L (21-32); CHLORIDE 113 MMOL/L (98-107); CREATININE 3.1 MG/DL (0.55-1.30); PHOSPHORUS 5.2 MG/DL (2.5-4.9); POTASSIUM 5.1 MMOL/L (3.5-5.1); SODIUM 143 MMOL/L (136-145)
--- NOTE | 2019-05-27 06:19 | Emergency Room Report ---
History of Present Illness General Chief Complaint: General Complaint Source: Patient, Medical Record, PMD Present Illness Allergies: Coded Allergies: No Known Allergies (Unverified , 05/18/19) Nursing Documentation-[facility] Past Medical History: No History, Except For Hx Hypertension: Yes Hx Cancer: No Hx Gastrointestinal Problems: No Hx Neurological Problems: No Physical Exam Vital Signs Date Time Temp Pulse Resp B/P (MAP) Pulse Ox O2 Delivery O2 Flow Rate FiO2 05/23/19 07:36 93 Venturi Mask 8.0 40 05/23/19 07:46 86 17 89 17 05/23/19 08:00 97.5 141/71 (94) Procedures Central Line Central Line : Consent: Emergent Central Line Lumen: triple Maximal Sterile Barrier Tech: yes mask, yes sterile gloves, yes large sterile sheet, yes hand hygiene, yes chlorhexidine prep No Max Barrier Tech Because: emergency insertion Central Line Postion: internal jugular (L) Complications: none Central Line Post Position: sutured, good blood return, position confirmed w / CXR Attempts: One Patient Tolerated: Well Complications: None CPR/Code Blue CPR/Code Blue Narrative See code narrative in MDM section. Intubation Intubation : Consent: Emergent Intubation Method: orotracheal Tube Size (cm): 7.5 Medications: Etomidate - 20 mg, Rocuronium - 100 mg Breath Sounds after Intubation: equal Intubation Complications: no complications Post Intubation Xray: Yes Progress/Xray Impression: Endotracheal tube in appropriate position at the leandro. Left internal jug Attempts: One Patient Tolerated: Well Complications: None Medical Decision Making ER Course I was called to the ICU to intubate the patient for respiratory distress. 84- year-old male admitted for pneumonia. Found to be hypoxic on monitor and acidotic on blood gas. Patient was found with NG tube in place suctioning active aspirate, being given rescue breaths with bag mask by respiratory therapy. Poor vascular access and I placed a right external jugular line without complication. Patient was bradycardic and hypotensive. Atropine given with good effect on heart rate. Patient was intubated using glide scope with a 7.5 endotracheal tube secured at 26 cm with tube tamer. Sedation and paralytic with 20 mg etomidate and 100 mg rocuronium. Equal bilateral breath sounds following intubation, visualized passage through the cords on glide scope, adequate color change on capnography. Oxygenation improved initially however the patient again became bradycardic with a heart rate less than 30. No palpable pulse. A code was called. CPR was initiated. The patient was given epinephrine, bicarb and atropine per ACLS protocols. Bounding pulse palpable at first pulse check. Left internal jugular triple-lumen was placed. Confirm appropriate position with chest x-ray. Patient started on Levophed and bicarb drip. Remains in critical condition. Further care per ICU team. Last Vital Signs Date Time Temp Pulse Resp B/P (MAP) Pulse Ox O2 Delivery O2 Flow Rate FiO2 05/27/19 05:30 89 21 80 05/27/19 05:15 97/40 (59) 97 05/27/19 04:00 Mechanical Ventilator 05/27/19 04:00 100.0 05/26/19 21:00 10.0 Disposition: ADMITTED INPATIENT Condition: Serious Referrals: Joslyn Wiggins MD (PCP) Dick Cuellar MD May 27, 2019 06:19
[2019-05-27] MEDS: Acetaminophen 650mg/20.3ml GT PRN (08:34)
[2019-05-27] MEDS: Docusate 100mg/10ml Liq NG SCH ×3 (08:34→18:33)
[2019-05-27] MEDS: Amiodarone 200mg tab ORAL SCH (08:35)
[2019-05-27] MEDS: Dronabinol 2.5mg Cap ORAL SCH (08:36)
[2019-05-27] MEDS: Eliquis 2.5mg tablet ORAL SCH ×2 (08:36→18:34)
[2019-05-27] MEDS ORDERED: Levofloxacin 500mg tab ORAL SCH (09:00)
--- NOTE | 2019-05-27 10:07 | Nephrology Progress Note ---
Assessment/Plan Problem List: (1) Renal failure (ARF), acute on chronic (2) Cellulitis of upper extremity (3) A-fib (4) Pneumonia (5) UTI (urinary tract infection) (6) Anemia (7) Hypothyroidism Assessment - KIMO on CKD - Urinary tract infection. - Anemia- - Dehydration. - Cellulitis of Upper extremity - HTN Plan in ICU intubated on pressors will DC BP meds and Mind altering meds previously: Per cardiology Anemia kumari- Avoid Nephrotoxics Per ID Allow CHANDA inhibitor to continue as long as renal function does not worsen. PICC line has been removed. CXR: Increased right pleural effusion and similar left pleural effusion. Increased interstitial and hazy opacities throughout the lungs. Subjective ROS Limited/Unobtainable: Yes Objective Objective Last 24 Hour Vital Signs Date Time Temp Pulse Resp B/P (MAP) Pulse Ox O2 Delivery O2 Flow Rate FiO2 05/27/19 09:15 79 19 112/37 (62) 95 05/27/19 09:04 102.6 05/27/19 09:00 102.6 77 17 111/38 (62) 94 05/27/19 08:45 79 20 107/43 (64) 95 05/27/19 08:45 79 18 80 05/27/19 08:34 78 103/37 05/27/19 08:33 78 103/37 05/27/19 08:30 79 15 103/37 (59) 99 05/27/19 08:15 80 15 99/39 (59) 99 05/27/19 08:00 101.3 82 0 102/40 (60) 98 05/27/19 08:00 Mechanical Ventilator 05/27/19 07:48 105/37 05/27/19 07:45 84 12 105/37 (59) 97 05/27/19 07:30 81 20 102/40 (60) 98 05/27/19 07:20 80 19 80 05/27/19 07:20 98 Mechanical Ventilator 50.0 98 05/27/19 07:15 82 20 103/35 (57) 97 05/27/19 07:00 96/40 05/27/19 07:00 82 19 96/40 (58) 98 05/27/19 06:45 82 18 100/36 (57) 97 05/27/19 06:30 82 20 89/40 (56) 97 05/27/19 06:00 101/42 05/27/19 06:00 84 18 101/42 (61) 96 05/27/19 05:30 89 21 80 05/27/19 05:30 83 16 101/40 (60) 97 05/27/19 05:15 83 16 97/40 (59) 97 05/27/19 05:00 83 16 97/43 (61) 97 05/27/19 05:00 97/43 05/27/19 04:45 82 13 93/38 (56) 97 05/27/19 04:30 83 16 92/39 (56) 97 05/27/19 04:15 83 16 93/39 (57) 97 05/27/19 04:00 Mechanical Ventilator 05/27/19 04:00 100.0 84 16 101/42 (61) 96 05/27/19 04:00 101/42 05/27/19 03:50 83 05/27/19 03:45 85 17 80 05/27/19 03:30 83 16 100/40 (60) 98 05/27/19 03:00 83 16 80/38 (52) 97 05/27/19 03:00 80/38 05/27/19 02:45 84 19 90/37 (54) 97 05/27/19 02:30 85 20 92/36 (54) 98 05/27/19 02:15 85 21 94/40 (58) 98 05/27/19 02:00 95/35 05/27/19 02:00 86 17 95/35 (55) 98 05/27/19 01:45 88 17 95/37 (56) 97 05/27/19 01:40 88 16 98/35 (56) 98 05/27/19 01:30 90 12 97/33 (54) 97 05/27/19 01:25 89 17 96/40 (58) 97 05/27/19 01:19 92/42 05/27/19 01:15 88 21 92/41 (58) 98 05/27/19 01:05 85 18 80 05/27/19 01:00 90 16 91/37 (55) 100 05/27/19 00:50 94 16 97/47 (64) 100 05/27/19 00:45 91 16 96/41 (59) 100 05/27/19 00:40 93 16 88/47 (61) 100 05/27/19 00:35 91 16 105/57 (73) 100 05/27/19 00:30 91 16 104/62 (76) 100 05/27/19 00:25 92 16 108/47 (67) 100 05/27/19 00:20 92 16 100/53 (69) 100 05/27/19 00:15 92 16 106/64 (78) 100 05/27/19 00:10 95 16 123/57 (79) 100 05/27/19 00:05 95 16 115/59 (77) 100 05/27/19 00:00 97.7 96 16 108/58 (75) 100 05/27/19 00:00 Mechanical Ventilator 05/26/19 23:55 97 16 90/55 (67) 100 05/26/19 23:50 99 20 77/42 (54) 99 05/26/19 23:45 99 10 79/51 (60) 100 05/26/19 23:43 100 12 84/50 (61) 100 05/26/19 23:33 102 05/26/19 23:30 99 16 80 05/26/19 23:30 101 17 105/61 (76) 100 05/26/19 23:15 147 27 192/104 (133) 100 05/26/19 23:13 143 22 184/101 (128) 100 05/26/19 23:05 63 11 41/22 (28) 83 05/26/19 23:02 81 14 50/28 (35) 86 05/26/19 22:38 72 05/26/19 22:30 71 30 87 05/26/19 21:00 76 116/51 05/26/19 21:00 Non-Rebreather 10.0 05/26/19 20:08 91 Non-Rebreather 15.0 100 05/26/19 20:00 97.5 73 28 130/75 (93) 91 05/26/19 20:00 69 05/26/19 16:00 97.7 68 28 115/48 (70) 92 05/26/19 16:00 73 05/26/19 12:00 89 05/26/19 12:00 97.3 74 28 125/42 (69) 97 Intake and Output 05/26/19 05/27/19 19:00 07:00 Intake Total 40 ml 180 ml Output Total 100 ml 560 ml Balance -60 ml -380 ml IV Total 180 ml Tube Feeding 40 ml 0 ml Output Urine Total 100 ml 560 ml Laboratory Tests 05/26/19 11:35: Sodium Level 149H, Potassium Level 5.4H, Chloride Level 116H, Carbon Dioxide Level 26, Anion Gap 7, Blood Urea Nitrogen 56H, Creatinine 2.5H, Estimat Glomerular Filtration Rate , Glucose Level 154H, Calcium Level 8.0L 05/26/19 20:56: Arterial Blood pH 7.069*L, Arterial Blood Partial Pressure CO2 81.1*H, Arterial Blood Partial Pressure O2 56.9L, Arterial Blood HCO3 22.9, Arterial Blood Oxygen Saturation 87.6*L, Arterial Blood Base Excess -7.7L, Koby Test Positive 05/27/19 00:21: Arterial Blood pH 7.174*L, Arterial Blood Partial Pressure CO2 60.2*H, Arterial Blood Partial Pressure O2 90.6, Arterial Blood HCO3 21.7L, Arterial Blood Oxygen Saturation 96.2, Arterial Blood Base Excess -6.8L, Koby Test Positive 05/27/19 04:15: Sodium Level 143, Potassium Level 5.1, Chloride Level 113H, Carbon Dioxide Level 25, Anion Gap 5, Blood Urea Nitrogen 59H, Creatinine 3.1H, Estimat Glomerular Filtration Rate , Glucose Level 141H, Calcium Level 7.8L, White Blood Count 9.5, Red Blood Count 2.65L, Hemoglobin 8.1L, Hematocrit 25.3L, Mean Corpuscular Volume 95, Mean Corpuscular Hemoglobin 30.4, Mean Corpuscular Hemoglobin Concent 31.9L, Red Cell Distribution Width 16.3H, Platelet Count 226 , Mean Platelet Volume 4.6L, Neutrophils (%) (Auto) , Lymphocytes (%) (Auto) , Monocytes (%) (Auto) , Eosinophils (%) (Auto) , Basophils (%) (Auto) , Differential Total Cells Counted 100, Neutrophils % (Manual) 89H, Lymphocytes % (Manual) 5L, Monocytes % (Manual) 5, Eosinophils % (Manual) 1, Basophils % ( Manual) 0, Band Neutrophils 0, Platelet Estimate Adequate, Platelet Morphology Normal, Hypochromasia 2+, Anisocytosis 1+, Uric Acid 6.1, Phosphorus Level 5.2H , Magnesium Level 2.0, Total Bilirubin 0.3, Aspartate Amino Transf (AST/SGOT) 30 , Alanine Aminotransferase (ALT/SGPT) 23, Alkaline Phosphatase 64, C-Reactive Protein, Quantitative 4.3H, Pro-B-Type Natriuretic Peptide 5778H, Total Protein 4.7L, Albumin 1.5L, Globulin 3.2, Albumin/Globulin Ratio 0.5L 05/27/19 07:27: Arterial Blood pH 7.250*L, Arterial Blood Partial Pressure CO2 60.5*H, Arterial Blood Partial Pressure O2 69.0L, Arterial Blood HCO3 25.9, Arterial Blood Oxygen Saturation 93.7L, Arterial Blood Base Excess -1.7, Koby Test Positive Height (Feet): 5 Height (Inches): 7.00 Weight (Pounds): 173 General Appearance: no apparent distress EENT: other - vented Cardiovascular: other - variable Respiratory/Chest: decreased breath sounds Abdomen: distended Reinier Mera MD May 27, 2019 10:07
--- NOTE | 2019-05-27 10:17 | Infectious Diseases Prog Note ---
Assessment/Plan Assessment/Plan 84 yo male with PMHx of HTN who was [facility]c line infection. Swelling around PICC line Minimal to no erythema and no purulent drainage Not likely to be infected Blood Cx 05/18/19 - NGTD PICC Tip Cx 05/18/19 - NGTD PICC line removed 05/18/19 No Leukocytosis No fever OM - Let foot On Vancomycin at nursing End date early May PNA on 8L NC CXR - Some LLL Atelectasis vs PNA, Nodules CT 05/20/19 - Bilateral upper lobe infiltrates worse on the right. Consider pneumonia. Bilateral pleural effusions moderate in size HTN PLAN - Continue Vancomycin per pharmacy - End date per [facility] MD - Start Zosyn for probable PNA - 05/27/19 SP Levofloxacin #/ - Get Sputum Cx - Monitor CBC and Temps Thank you for this consult. [facility] will continue to follow the patient with you during this hospitalization. Subjective Allergies: Coded Allergies: No Known Allergies (Unverified , 05/18/19) Subjective Transferred to the ICU and intubated last night for respiratory failure Afebrile No Leukocytosis Objective Vital Signs Last 24 Hour Vital Signs Date Time Temp Pulse Resp B/P (MAP) Pulse Ox O2 Delivery O2 Flow Rate FiO2 05/27/19 09:15 79 19 112/37 (62) 95 05/27/19 09:04 102.6 05/27/19 09:00 102.6 77 17 111/38 (62) 94 05/27/19 08:45 79 20 107/43 (64) 95 05/27/19 08:45 79 18 80 05/27/19 08:34 78 103/37 05/27/19 08:33 78 103/37 05/27/19 08:30 79 15 103/37 (59) 99 05/27/19 08:15 80 15 99/39 (59) 99 05/27/19 08:00 101.3 82 0 102/40 (60) 98 05/27/19 08:00 Mechanical Ventilator 05/27/19 07:48 105/37 05/27/19 07:45 84 12 105/37 (59) 97 05/27/19 07:30 81 20 102/40 (60) 98 05/27/19 07:20 80 19 80 12/31/19 07:20 98 Mechanical Ventilator 50.0 98 05/27/19 07:15 82 20 103/35 (57) 97 05/27/19 07:00 96/40 05/27/19 07:00 82 19 96/40 (58) 98 05/27/19 06:45 82 18 100/36 (57) 97 05/27/19 06:30 82 20 89/40 (56) 97 05/27/19 06:00 101/42 05/27/19 06:00 84 18 101/42 (61) 96 05/27/19 05:30 89 21 80 05/27/19 05:30 83 16 101/40 (60) 97 05/27/19 05:15 83 16 97/40 (59) 97 05/27/19 05:00 83 16 97/43 (61) 97 05/27/19 05:00 97/43 05/27/19 04:45 82 13 93/38 (56) 97 05/27/19 04:30 83 16 92/39 (56) 97 05/27/19 04:15 83 16 93/39 (57) 97 05/27/19 04:00 Mechanical Ventilator 05/27/19 04:00 100.0 84 16 101/42 (61) 96 05/27/19 04:00 101/42 05/27/19 03:50 83 05/27/19 03:45 85 17 80 05/27/19 03:30 83 16 100/40 (60) 98 05/27/19 03:00 83 16 80/38 (52) 97 05/27/19 03:00 80/38 05/27/19 02:45 84 19 90/37 (54) 97 05/27/19 02:30 85 20 92/36 (54) 98 05/27/19 02:15 85 21 94/40 (58) 98 05/27/19 02:00 95/35 05/27/19 02:00 86 17 95/35 (55) 98 05/27/19 01:45 88 17 95/37 (56) 97 05/27/19 01:40 88 16 98/35 (56) 98 05/27/19 01:30 90 12 97/33 (54) 97 05/27/19 01:25 89 17 96/40 (58) 97 05/27/19 01:19 92/42 05/27/19 01:15 88 21 92/41 (58) 98 05/27/19 01:05 85 18 80 05/27/19 01:00 90 16 91/37 (55) 100 05/27/19 00:50 94 16 97/47 (64) 100 05/27/19 00:45 91 16 96/41 (59) 100 05/27/19 00:40 93 16 88/47 (61) 100 05/27/19 00:35 91 16 105/57 (73) 100 05/27/19 00:30 91 16 104/62 (76) 100 05/27/19 00:25 92 16 108/47 (67) 100 05/27/19 00:20 92 16 100/53 (69) 100 05/27/19 00:15 92 16 106/64 (78) 100 05/27/19 00:10 95 16 123/57 (79) 100 05/27/19 00:05 95 16 115/59 (77) 100 05/27/19 00:00 97.7 96 16 108/58 (75) 100 05/27/19 00:00 Mechanical Ventilator 05/26/19 23:55 97 16 90/55 (67) 100 05/26/19 23:50 99 20 77/42 (54) 99 05/26/19 23:45 99 10 79/51 (60) 100 05/26/19 23:43 100 12 84/50 (61) 100 05/26/19 23:33 102 05/26/19 23:30 99 16 80 05/26/19 23:30 101 17 105/61 (76) 100 05/26/19 23:15 147 27 192/104 (133) 100 05/26/19 23:13 143 22 184/101 (128) 100 05/26/19 23:05 63 11 41/22 (28) 83 05/26/19 23:02 81 14 50/28 (35) 86 05/26/19 22:38 72 05/26/19 22:30 71 30 87 05/26/19 21:00 76 116/51 05/26/19 21:00 Non-Rebreather 10.0 05/26/19 20:08 91 Non-Rebreather 15.0 100 05/26/19 20:00 97.5 73 28 130/75 (93) 91 05/26/19 20:00 69 05/26/19 16:00 97.7 68 28 115/48 (70) 92 05/26/19 16:00 73 05/26/19 12:00 89 05/26/19 12:00 97.3 74 28 125/42 (69) 97 Height (Feet): 5 Height (Inches): 7.00 Weight (Pounds): 173 Objective Gen: Intubatd on vent HEENT: NCAT, MMM, EOMI LUNGS: Coarse B/L, Tight and wheezy CARDS: RRR, S1, S2 ABD: Soft, NT, ND Laboratory Tests Test 05/26/19 11:35 05/26/19 20:56 05/27/19 00:21 05/27/19 04:15 Sodium Level 149 MMOL/L (136-145) H 143 MMOL/L (136-145) Potassium Level 5.4 MMOL/L (3.5-5.1) H 5.1 MMOL/L (3.5-5.1) Chloride Level 116 MMOL/L (98-107) H 113 MMOL/L (98-107) H Carbon Dioxide Level 26 MMOL/L (21-32) 25 MMOL/L (21-32) Anion Gap 7 mmol/L (5-15) 5 mmol/L (5-15) Blood Urea Nitrogen 56 mg/dL (7-18) H 59 mg/dL (7-18) H Creatinine 2.5 MG/DL (0.55-1.30) H 3.1 MG/DL (0.55-1.30) H Estimat Glomerular Filtration Rate mL/min (>60) mL/min (>60) Glucose Level 154 MG/DL (74-106) H 141 MG/DL (74-106) H Calcium Level 8.0 MG/DL (8.5-10.1) L 7.8 MG/DL (8.5-10.1) L Arterial Blood pH 7.069 (7.350-7.450) 7.174 (7.350-7.450) Arterial Blood Partial Pressure CO2 81.1 mmHg (35.0-45.0) *H 60.2 mmHg (35.0-45.0) *H Arterial Blood Partial Pressure O2 56.9 mmHg (75.0-100.0) L 90.6 mmHg (75.0-100.0) Arterial Blood HCO3 22.9 mmol/L (22.0-26.0) 21.7 mmol/L (22.0-26.0) L Arterial Blood Oxygen Saturation 87.6 % (95-100) *L 96.2 % (95-100) Arterial Blood Base Excess -7.7 (-2-2) L -6.8 (-2-2) L Koby Test Positive Positive White Blood Count 9.5 K/UL (4.8-10.8) Red Blood Count 2.65 M/UL (4.70-6.10) L Hemoglobin 8.1 G/DL (14.2-18.0) L Hematocrit 25.3 % (42.0-52.0) L Mean Corpuscular Volume 95 FL (80-99) Mean Corpuscular Hemoglobin 30.4 PG (27.0-31.0) Mean Corpuscular Hemoglobin Concent 31.9 G/DL (32.0-36.0) L Red Cell Distribution Width 16.3 % (11.6-14.8) H Platelet Count 226 K/UL (150-450) Mean Platelet Volume 4.6 FL (6.5-10.1) L Neutrophils (%) (Auto) % (45.0-75.0) Lymphocytes (%) (Auto) % (20.0-45.0) Monocytes (%) (Auto) % (1.0-10.0) Eosinophils (%) (Auto) % (0.0-3.0) Basophils (%) (Auto) % (0.0-2.0) Differential Total Cells Counted 100 Neutrophils % (Manual) 89 % (45-75) H Lymphocytes % (Manual) 5 % (20-45) L Monocytes % (Manual) 5 % (1-10) Eosinophils % (Manual) 1 % (0-3) Basophils % (Manual) 0 % (0-2) Band Neutrophils 0 % (0-8) Platelet Estimate Adequate Platelet Morphology Normal Hypochromasia 2+ Anisocytosis 1+ Uric Acid 6.1 MG/DL (2.6-7.2) Phosphorus Level 5.2 MG/DL (2.5-4.9) H Magnesium Level 2.0 MG/DL (1.8-2.4) Total Bilirubin 0.3 MG/DL (0.2-1.0) Aspartate Amino Transf (AST/SGOT) 30 U/L (15-37) Alanine Aminotransferase (ALT/SGPT) 23 U/L (12-78) Alkaline Phosphatase 64 U/L (46-116) C-Reactive Protein, Quantitative 4.3 mg/dL (0.00-0.90) H Pro-B-Type Natriuretic Peptide 5778 pg/mL (0-125) H Total Protein 4.7 G/DL (6.4-8.2) L Albumin 1.5 G/DL (3.4-5.0) L Globulin 3.2 g/dL Albumin/Globulin Ratio 0.5 (1.0-2.7) L Test 05/27/19 07:27 Arterial Blood pH 7.250 (7.350-7.450) Arterial Blood Partial Pressure CO2 60.5 mmHg (35.0-45.0) *H Arterial Blood Partial Pressure O2 69.0 mmHg (75.0-100.0) L Arterial Blood HCO3 25.9 mmol/L (22.0-26.0) Arterial Blood Oxygen Saturation 93.7 % (95-100) L Arterial Blood Base Excess -1.7 (-2-2) Koby Test Positive Current Medications Medications (Trade) Dose Ordered Sig/Phillip Route PRN Reason Start Time Stop Time Status Last Admin Dose Admin Acetaminophen (Tylenol) 500 mg Q4H PRN GT Mild Pain/Temp > 100.5 05/27/19 07:45 06/19/19 20:29 05/27/19 08:34 Albumin Human 500 ml @ 0 mls/hr Q0M ONCE IV 05/27/19 10:15 05/27/19 10:16 UNV Amiodarone HCl (Cordarone) 200 mg DAILY ORAL 05/26/19 09:00 06/21/19 20:59 05/27/19 08:35 Apixaban (Eliquis) 2.5 mg BID ORAL 05/26/19 09:00 06/25/19 08:59 05/27/19 08:36 Chlorhexidine Gluconate (Reina-Hex 2%) 1 applic DAILY@1999 TOPIC 05/27/19 20:00 06/26/19 19:59 Docusate Sodium (Colace) 100 mg TID NG 05/27/19 09:00 06/20/19 08:59 05/27/19 08:34 Levofloxacin 50 ml @ 50 mls/hr Q24H IVPB 05/24/19 12:00 05/31/19 11:59 05/26/19 11:49 Norepinephrine Bitartrate 4 mg/ Dextrose 250 ml @ 0 mls/hr Q24H IV 05/27/19 00:30 06/26/19 00:29 05/27/19 07:48 Pantoprazole (Protonix) 40 mg EVERY 12 HOURS IVP 05/27/19 10:15 06/26/19 10:14 UNV Sodium Chloride 1,000 ml @ 75 mls/hr [id number] IV 05/27/19 10:15 06/26/19 10:14 UNV Vancomycin HCl (Vanco rx to dose) 1 ea DAILY PRN MISC Per rx protocol 05/20/19 20:30 06/19/19 20:29 Vancomycin HCl 750 mg/Sodium Chloride 275 ml @ 183.333 mls/hr Q24H IVPB 05/26/19 10:00 05/31/19 09:59 05/26/19 09:00 Jimbo Dodd MD May 27, 2019 10:17
--- NOTE | 2019-05-27 10:37 | General Progress Note ---
Assessment/Plan Problem List: (1) Dysphagia ICD Codes: R13.10 - Dysphagia, unspecified SNOMED: 27671848, 516562334 (2) Anemia ICD Codes: D64.9 - Anemia, unspecified SNOMED: 825194258 (3) Hypothyroidism ICD Codes: E03.9 - Hypothyroidism, unspecified SNOMED: 47963610 (4) Thrombus ICD Codes: I82.90 - Acute embolism and thrombosis of unspecified vein SNOMED: 86286141, 43109990, 031739870, 713262071 (5) A-fib ICD Codes: I48.91 - Unspecified atrial fibrillation SNOMED: 71940854 Status: progressing, unchanged Assessment/Plan: intubated in ICU NGTF on hold fu pulm fu labs Subjective ROS Limited/Unobtainable: No Allergies: Coded Allergies: No Known Allergies (Unverified , 05/18/19) Objective Last 24 Hour Vital Signs Date Time Temp Pulse Resp B/P (MAP) Pulse Ox O2 Delivery O2 Flow Rate FiO2 05/27/19 09:15 79 19 112/37 (62) 95 05/27/19 09:04 102.6 05/27/19 09:00 102.6 77 17 111/38 (62) 94 05/27/19 08:45 79 20 107/43 (64) 95 05/27/19 08:45 79 18 80 05/27/19 08:34 78 103/37 05/27/19 08:33 78 103/37 05/27/19 08:30 79 15 103/37 (59) 99 05/27/19 08:15 80 15 99/39 (59) 99 05/27/19 08:00 101.3 82 0 102/40 (60) 98 05/27/19 08:00 Mechanical Ventilator 05/27/19 07:48 105/37 05/27/19 07:45 84 12 105/37 (59) 97 05/27/19 07:30 81 20 102/40 (60) 98 05/27/19 07:20 80 19 80 05/27/19 07:20 98 Mechanical Ventilator 50.0 98 05/27/19 07:15 82 20 103/35 (57) 97 05/27/19 07:00 96/40 05/27/19 07:00 82 19 96/40 (58) 98 05/27/19 06:45 82 18 100/36 (57) 97 05/27/19 06:30 82 20 89/40 (56) 97 05/27/19 06:00 101/42 05/27/19 06:00 84 18 101/42 (61) 96 05/27/19 05:30 89 21 80 05/27/19 05:30 83 16 101/40 (60) 97 05/27/19 05:15 83 16 97/40 (59) 97 05/27/19 05:00 83 16 97/43 (61) 97 05/27/19 05:00 97/43 05/27/19 04:45 82 13 93/38 (56) 97 05/27/19 04:30 83 16 92/39 (56) 97 05/27/19 04:15 83 16 93/39 (57) 97 05/27/19 04:00 Mechanical Ventilator 05/27/19 04:00 100.0 84 16 101/42 (61) 96 05/27/19 04:00 101/42 05/27/19 03:50 83 05/27/19 03:45 85 17 80 05/27/19 03:30 83 16 100/40 (60) 98 05/27/19 03:00 83 16 80/38 (52) 97 05/27/19 03:00 80/38 05/27/19 02:45 84 19 90/37 (54) 97 05/27/19 02:30 85 20 92/36 (54) 98 05/27/19 02:15 85 21 94/40 (58) 98 05/27/19 02:00 95/35 05/27/19 02:00 86 17 95/35 (55) 98 05/27/19 01:45 88 17 95/37 (56) 97 05/27/19 01:40 88 16 98/35 (56) 98 05/27/19 01:30 90 12 97/33 (54) 97 05/27/19 01:25 89 17 96/40 (58) 97 05/27/19 01:19 92/42 05/27/19 01:15 88 21 92/41 (58) 98 05/27/19 01:05 85 18 80 05/27/19 01:00 90 16 91/37 (55) 100 05/27/19 00:50 94 16 97/47 (64) 100 05/27/19 00:45 91 16 96/41 (59) 100 05/27/19 00:40 93 16 88/47 (61) 100 05/27/19 00:35 91 16 105/57 (73) 100 05/27/19 00:30 91 16 104/62 (76) 100 05/27/19 00:25 92 16 108/47 (67) 100 05/27/19 00:20 92 16 100/53 (69) 100 05/27/19 00:15 92 16 106/64 (78) 100 05/27/19 00:10 95 16 123/57 (79) 100 05/27/19 00:05 95 16 115/59 (77) 100 05/27/19 00:00 97.7 96 16 108/58 (75) 100 05/27/19 00:00 Mechanical Ventilator 05/26/19 23:55 97 16 90/55 (67) 100 05/26/19 23:50 99 20 77/42 (54) 99 05/26/19 23:45 99 10 79/51 (60) 100 05/26/19 23:43 100 12 84/50 (61) 100 05/26/19 23:33 102 05/26/19 23:30 99 16 80 05/26/19 23:30 101 17 105/61 (76) 100 05/26/19 23:15 147 27 192/104 (133) 100 05/26/19 23:13 143 22 184/101 (128) 100 05/26/19 23:05 63 11 41/22 (28) 83 05/26/19 23:02 81 14 50/28 (35) 86 05/26/19 22:38 72 05/26/19 22:30 71 30 87 05/26/19 21:00 76 116/51 05/26/19 21:00 Non-Rebreather 10.0 05/26/19 20:08 91 Non-Rebreather 15.0 100 05/26/19 20:00 97.5 73 28 130/75 (93) 91 05/26/19 20:00 69 05/26/19 16:00 97.7 68 28 115/48 (70) 92 05/26/19 16:00 73 05/26/19 12:00 89 05/26/19 12:00 97.3 74 28 125/42 (69) 97 Intake and Output 05/26/19 05/27/19 19:00 07:00 Intake Total 40 ml 180 ml Output Total 100 ml 560 ml Balance -60 ml -380 ml IV Total 180 ml Tube Feeding 40 ml 0 ml Output Urine Total 100 ml 560 ml Laboratory Tests 05/26/19 11:35: Sodium Level 149H, Potassium Level 5.4H, Chloride Level 116H, Carbon Dioxide Level 26, Anion Gap 7, Blood Urea Nitrogen 56H, Creatinine 2.5H, Estimat Glomerular Filtration Rate , Glucose Level 154H, Calcium Level 8.0L 05/26/19 20:56: Arterial Blood pH 7.069*L, Arterial Blood Partial Pressure CO2 81.1*H, Arterial Blood Partial Pressure O2 56.9L, Arterial Blood HCO3 22.9, Arterial Blood Oxygen Saturation 87.6*L, Arterial Blood Base Excess -7.7L, Koby Test Positive 05/27/19 00:21: Arterial Blood pH 7.174*L, Arterial Blood Partial Pressure CO2 60.2*H, Arterial Blood Partial Pressure O2 90.6, Arterial Blood HCO3 21.7L, Arterial Blood Oxygen Saturation 96.2, Arterial Blood Base Excess -6.8L, Koby Test Positive 05/27/19 04:15: Sodium Level 143, Potassium Level 5.1, Chloride Level 113H, Carbon Dioxide Level 25, Anion Gap 5, Blood Urea Nitrogen 59H, Creatinine 3.1H, Estimat Glomerular Filtration Rate , Glucose Level 141H, Calcium Level 7.8L, White Blood Count 9.5, Red Blood Count 2.65L, Hemoglobin 8.1L, Hematocrit 25.3L, Mean Corpuscular Volume 95, Mean Corpuscular Hemoglobin 30.4, Mean Corpuscular Hemoglobin Concent 31.9L, Red Cell Distribution Width 16.3H, Platelet Count 226 , Mean Platelet Volume 4.6L, Neutrophils (%) (Auto) , Lymphocytes (%) (Auto) , Monocytes (%) (Auto) , Eosinophils (%) (Auto) , Basophils (%) (Auto) , Differential Total Cells Counted 100, Neutrophils % (Manual) 89H, Lymphocytes % (Manual) 5L, Monocytes % (Manual) 5, Eosinophils % (Manual) 1, Basophils % ( Manual) 0, Band Neutrophils 0, Platelet Estimate Adequate, Platelet Morphology Normal, Hypochromasia 2+, Anisocytosis 1+, Uric Acid 6.1, Phosphorus Level 5.2H , Magnesium Level 2.0, Total Bilirubin 0.3, Aspartate Amino Transf (AST/SGOT) 30 , Alanine Aminotransferase (ALT/SGPT) 23, Alkaline Phosphatase 64, C-Reactive Protein, Quantitative 4.3H, Pro-B-Type Natriuretic Peptide 5778H, Total Protein 4.7L, Albumin 1.5L, Globulin 3.2, Albumin/Globulin Ratio 0.5L 05/27/19 07:27: Arterial Blood pH 7.250*L, Arterial Blood Partial Pressure CO2 60.5*H, Arterial Blood Partial Pressure O2 69.0L, Arterial Blood HCO3 25.9, Arterial Blood Oxygen Saturation 93.7L, Arterial Blood Base Excess -1.7, Koby Test Positive Height (Feet): 5 Height (Inches): 7.00 Weight (Pounds): 173 General Appearance: lethargic EENT: normal ENT inspection Neck: supple Cardiovascular: normal rate Respiratory/Chest: decreased breath sounds Abdomen: normal bowel sounds, non tender, soft Extremities: non-tender Valentino Lino MD May 27, 2019 10:37
[2019-05-27] MEDS: Vancomycin 750mg/NS 275ml IVPB SCH ×2 (10:39)
--- NOTE | 2019-05-27 10:56 | Pulmonology Progress Note ---
Assessment/Plan Assessment/Plan IMPRESSION AND PLAN: 1. Pneumonia. Bilateral upper lobe. May need bronchoscopy 2. Cellulitis. 3. History of COPD. 4. Hypertension. 5. Afib with RVR; rate controlled 6. No evidence for PE 7. Persistent hypoxia; CXR shows bilateral pleural effusions; will attempt to diurese (creatinine 2.0 noted) DISCUSSION: 1. Intubated; on AC mode 2. Agree with present management and care. 3. Continue medications and HHN with atrovent only 4. Reviewed Chest CT. 5. Dr Mtz will cover me till 06/07/2019 6. continue antibiotics Arsen Whittaker M.D. Subjective Interval Events: Intubated overnight; appears septic, febrile Constitutional: Reports: no symptoms HEENT: Repors: no symptoms Respiratory: Reports: no symptoms Cardiovascular: Reports: no symptoms Gastrointestinal/Abdominal: Reports: no symptoms Genitourinary: Reports: no symptoms Allergies: Coded Allergies: No Known Allergies (Unverified , 05/18/19) Objective Last 24 Hour Vital Signs Date Time Temp Pulse Resp B/P (MAP) Pulse Ox O2 Delivery O2 Flow Rate FiO2 05/27/19 10:53 77 20 80 05/27/19 09:15 79 19 112/37 (62) 95 05/27/19 09:04 102.6 05/27/19 09:00 102.6 77 17 111/38 (62) 94 05/27/19 08:45 79 20 107/43 (64) 95 05/27/19 08:45 79 18 80 05/27/19 08:34 78 103/37 05/27/19 08:33 78 103/37 05/27/19 08:30 79 15 103/37 (59) 99 05/27/19 08:15 80 15 99/39 (59) 99 05/27/19 08:00 101.3 82 0 102/40 (60) 98 05/27/19 08:00 Mechanical Ventilator 05/27/19 07:48 105/37 05/27/19 07:45 84 12 105/37 (59) 97 12/31/19 07:30 81 20 102/40 (60) 98 05/27/19 07:20 80 19 80 05/27/19 07:20 98 Mechanical Ventilator 50.0 98 05/27/19 07:15 82 20 103/35 (57) 97 05/27/19 07:00 96/40 05/27/19 07:00 82 19 96/40 (58) 98 05/27/19 06:45 82 18 100/36 (57) 97 05/27/19 06:30 82 20 89/40 (56) 97 05/27/19 06:00 101/42 05/27/19 06:00 84 18 101/42 (61) 96 05/27/19 05:30 89 21 80 05/27/19 05:30 83 16 101/40 (60) 97 05/27/19 05:15 83 16 97/40 (59) 97 05/27/19 05:00 83 16 97/43 (61) 97 05/27/19 05:00 97/43 05/27/19 04:45 82 13 93/38 (56) 97 05/27/19 04:30 83 16 92/39 (56) 97 05/27/19 04:15 83 16 93/39 (57) 97 05/27/19 04:00 Mechanical Ventilator 05/27/19 04:00 100.0 84 16 101/42 (61) 96 05/27/19 04:00 101/42 05/27/19 03:50 83 05/27/19 03:45 85 17 80 05/27/19 03:30 83 16 100/40 (60) 98 05/27/19 03:00 83 16 80/38 (52) 97 05/27/19 03:00 80/38 05/27/19 02:45 84 19 90/37 (54) 97 05/27/19 02:30 85 20 92/36 (54) 98 05/27/19 02:15 85 21 94/40 (58) 98 05/27/19 02:00 95/35 05/27/19 02:00 86 17 95/35 (55) 98 05/27/19 01:45 88 17 95/37 (56) 97 05/27/19 01:40 88 16 98/35 (56) 98 05/27/19 01:30 90 12 97/33 (54) 97 05/27/19 01:25 89 17 96/40 (58) 97 05/27/19 01:19 92/42 05/27/19 01:15 88 21 92/41 (58) 98 05/27/19 01:05 85 18 80 05/27/19 01:00 90 16 91/37 (55) 100 05/27/19 00:50 94 16 97/47 (64) 100 05/27/19 00:45 91 16 96/41 (59) 100 05/27/19 00:40 93 16 88/47 (61) 100 05/27/19 00:35 91 16 105/57 (73) 100 05/27/19 00:30 91 16 104/62 (76) 100 05/27/19 00:25 92 16 108/47 (67) 100 05/27/19 00:20 92 16 100/53 (69) 100 05/27/19 00:15 92 16 106/64 (78) 100 05/27/19 00:10 95 16 123/57 (79) 100 05/27/19 00:05 95 16 115/59 (77) 100 05/27/19 00:00 97.7 96 16 108/58 (75) 100 05/27/19 00:00 Mechanical Ventilator 05/26/19 23:55 97 16 90/55 (67) 100 05/26/19 23:50 99 20 77/42 (54) 99 05/26/19 23:45 99 10 79/51 (60) 100 05/26/19 23:43 100 12 84/50 (61) 100 05/26/19 23:33 102 05/26/19 23:30 99 16 80 05/26/19 23:30 101 17 105/61 (76) 100 05/26/19 23:15 147 27 192/104 (133) 100 05/26/19 23:13 143 22 184/101 (128) 100 05/26/19 23:05 63 11 41/22 (28) 83 05/26/19 23:02 81 14 50/28 (35) 86 05/26/19 22:38 72 05/26/19 22:30 71 30 87 05/26/19 21:00 76 116/51 05/26/19 21:00 Non-Rebreather 10.0 05/26/19 20:08 91 Non-Rebreather 15.0 100 05/26/19 20:00 97.5 73 28 130/75 (93) 91 05/26/19 20:00 69 05/26/19 16:00 97.7 68 28 115/48 (70) 92 05/26/19 16:00 73 05/26/19 12:00 89 05/26/19 12:00 97.3 74 28 125/42 (69) 97 Intake and Output 05/26/19 05/27/19 19:00 07:00 Intake Total 40 ml 180 ml Output Total 100 ml 560 ml Balance -60 ml -380 ml IV Total 180 ml Tube Feeding 40 ml 0 ml Output Urine Total 100 ml 560 ml General Appearance: no acute distress HEENT: normocephalic Respiratory/Chest: chest wall non-tender, decreased breath sounds Cardiovascular: normal peripheral pulses, normal rate Abdomen: normal bowel sounds Laboratory Tests 05/26/19 11:35: Sodium Level 149H, Potassium Level 5.4H, Chloride Level 116H, Carbon Dioxide Level 26, Anion Gap 7, Blood Urea Nitrogen 56H, Creatinine 2.5H, Estimat Glomerular Filtration Rate , Glucose Level 154H, Calcium Level 8.0L 05/26/19 20:56: Arterial Blood pH 7.069*L, Arterial Blood Partial Pressure CO2 81.1*H, Arterial Blood Partial Pressure O2 56.9L, Arterial Blood HCO3 22.9, Arterial Blood Oxygen Saturation 87.6*L, Arterial Blood Base Excess -7.7L, Koby Test Positive 05/27/19 00:21: Arterial Blood pH 7.174*L, Arterial Blood Partial Pressure CO2 60.2*H, Arterial Blood Partial Pressure O2 90.6, Arterial Blood HCO3 21.7L, Arterial Blood Oxygen Saturation 96.2, Arterial Blood Base Excess -6.8L, Koby Test Positive 05/27/19 04:15: Sodium Level 143, Potassium Level 5.1, Chloride Level 113H, Carbon Dioxide Level 25, Anion Gap 5, Blood Urea Nitrogen 59H, Creatinine 3.1H, Estimat Glomerular Filtration Rate , Glucose Level 141H, Calcium Level 7.8L, White Blood Count 9.5, Red Blood Count 2.65L, Hemoglobin 8.1L, Hematocrit 25.3L, Mean Corpuscular Volume 95, Mean Corpuscular Hemoglobin 30.4, Mean Corpuscular Hemoglobin Concent 31.9L, Red Cell Distribution Width 16.3H, Platelet Count 226 , Mean Platelet Volume 4.6L, Neutrophils (%) (Auto) , Lymphocytes (%) (Auto) , Monocytes (%) (Auto) , Eosinophils (%) (Auto) , Basophils (%) (Auto) , Differential Total Cells Counted 100, Neutrophils % (Manual) 89H, Lymphocytes % (Manual) 5L, Monocytes % (Manual) 5, Eosinophils % (Manual) 1, Basophils % ( Manual) 0, Band Neutrophils 0, Platelet Estimate Adequate, Platelet Morphology Normal, Hypochromasia 2+, Anisocytosis 1+, Uric Acid 6.1, Phosphorus Level 5.2H , Magnesium Level 2.0, Total Bilirubin 0.3, Aspartate Amino Transf (AST/SGOT) 30 , Alanine Aminotransferase (ALT/SGPT) 23, Alkaline Phosphatase 64, C-Reactive Protein, Quantitative 4.3H, Pro-B-Type Natriuretic Peptide 5778H, Total Protein 4.7L, Albumin 1.5L, Globulin 3.2, Albumin/Globulin Ratio 0.5L 05/27/19 07:27: Arterial Blood pH 7.250*L, Arterial Blood Partial Pressure CO2 60.5*H, Arterial Blood Partial Pressure O2 69.0L, Arterial Blood HCO3 25.9, Arterial Blood Oxygen Saturation 93.7L, Arterial Blood Base Excess -1.7, Koby Test Positive Current Medications Medications (Trade) Dose Ordered Sig/Phillip Route PRN Reason Start Time Stop Time Status Last Admin Dose Admin Acetaminophen (Tylenol) 500 mg Q4H PRN GT Mild Pain/Temp > 100.5 05/27/19 07:45 06/19/19 20:29 05/27/19 08:34 Amiodarone HCl (Cordarone) 200 mg DAILY ORAL 05/26/19 09:00 06/21/19 20:59 05/27/19 08:35 Apixaban (Eliquis) 2.5 mg BID ORAL 05/26/19 09:00 06/25/19 08:59 05/27/19 08:36 Chlorhexidine Gluconate (Reina-Hex 2%) 1 applic DAILY@1999 TOPIC 05/27/19 20:00 06/26/19 19:59 Docusate Sodium (Colace) 100 mg TID NG 05/27/19 09:00 06/20/19 08:59 05/27/19 08:34 Norepinephrine Bitartrate 4 mg/ Dextrose 250 ml @ 0 mls/hr Q24H IV 05/27/19 00:30 06/26/19 00:29 05/27/19 07:48 Pantoprazole (Protonix) 40 mg EVERY 12 HOURS IVP 05/27/19 10:45 06/26/19 10:44 Piperacillin Sod/ Tazobactam Sod 3.375 gm/Sodium Chloride 110 ml @ 27.5 mls/hr Q12H IVPB 05/27/19 11:30 06/03/19 11:29 Sodium Chloride 1,000 ml @ 75 mls/hr [id number] IV 05/27/19 10:45 06/26/19 10:44 Vancomycin HCl (Vanco rx to dose) 1 ea DAILY PRN MISC Per rx protocol 05/20/19 20:30 06/19/19 20:29 Vancomycin HCl 750 mg/Sodium Chloride 275 ml @ 183.333 mls/hr Q24H IVPB 05/26/19 10:00 05/31/19 09:59 05/27/19 10:39 Arsen Whittaker MD May 27, 2019 10:56
--- NOTE | 2019-05-27 11:54 | Surgery Progress Note ---
Surgery Progress Note Subjective Additional Comments went hypoxic yesterday, deteriorated, coded, now intubated in ICU. ill appearing labs noted on vent support Objective Last 24 Hour Vital Signs Date Time Temp Pulse Resp B/P (MAP) Pulse Ox O2 Delivery O2 Flow Rate FiO2 05/27/19 11:30 83 20 128/45 (72) 93 05/27/19 11:00 80 21 112/42 (65) 95 05/27/19 10:53 77 20 80 05/27/19 10:30 74 16 111/43 (65) 95 05/27/19 10:00 75 14 106/42 (63) 95 05/27/19 09:30 77 23 106/42 (63) 95 05/27/19 09:15 79 19 112/37 (62) 95 05/27/19 09:04 102.6 05/27/19 09:00 102.6 77 17 111/38 (62) 94 05/27/19 08:45 79 20 107/43 (64) 95 05/27/19 08:45 79 18 80 05/27/19 08:34 78 103/37 05/27/19 08:33 78 103/37 05/27/19 08:30 79 15 103/37 (59) 99 05/27/19 08:15 80 15 99/39 (59) 99 05/27/19 08:00 101.3 82 0 102/40 (60) 98 05/27/19 08:00 Mechanical Ventilator 05/27/19 07:48 105/37 05/27/19 07:45 84 12 105/37 (59) 97 05/27/19 07:30 81 20 102/40 (60) 98 05/27/19 07:20 80 19 80 05/27/19 07:20 98 Mechanical Ventilator 50.0 98 05/27/19 07:15 82 20 103/35 (57) 97 05/27/19 07:00 96/40 05/27/19 07:00 82 19 96/40 (58) 98 05/27/19 06:45 82 18 100/36 (57) 97 05/27/19 06:30 82 20 89/40 (56) 97 05/27/19 06:00 101/42 05/27/19 06:00 84 18 101/42 (61) 96 05/27/19 05:30 89 21 80 05/27/19 05:30 83 16 101/40 (60) 97 05/27/19 05:15 83 16 97/40 (59) 97 05/27/19 05:00 83 16 97/43 (61) 97 05/27/19 05:00 97/43 05/27/19 04:45 82 13 93/38 (56) 97 05/27/19 04:30 83 16 92/39 (56) 97 05/27/19 04:15 83 16 93/39 (57) 97 05/27/19 04:00 Mechanical Ventilator 05/27/19 04:00 100.0 84 16 101/42 (61) 96 05/27/19 04:00 101/42 05/27/19 03:50 83 05/27/19 03:45 85 17 80 05/27/19 03:30 83 16 100/40 (60) 98 05/27/19 03:00 83 16 80/38 (52) 97 05/27/19 03:00 80/38 05/27/19 02:45 84 19 90/37 (54) 97 05/27/19 02:30 85 20 92/36 (54) 98 05/27/19 02:15 85 21 94/40 (58) 98 05/27/19 02:00 95/35 05/27/19 02:00 86 17 95/35 (55) 98 05/27/19 01:45 88 17 95/37 (56) 97 05/27/19 01:40 88 16 98/35 (56) 98 05/27/19 01:30 90 12 97/33 (54) 97 05/27/19 01:25 89 17 96/40 (58) 97 05/27/19 01:19 92/42 05/27/19 01:15 88 21 92/41 (58) 98 05/27/19 01:05 85 18 80 05/27/19 01:00 90 16 91/37 (55) 100 05/27/19 00:50 94 16 97/47 (64) 100 05/27/19 00:45 91 16 96/41 (59) 100 05/27/19 00:40 93 16 88/47 (61) 100 05/27/19 00:35 91 16 105/57 (73) 100 05/27/19 00:30 91 16 104/62 (76) 100 05/27/19 00:25 92 16 108/47 (67) 100 05/27/19 00:20 92 16 100/53 (69) 100 05/27/19 00:15 92 16 106/64 (78) 100 05/27/19 00:10 95 16 123/57 (79) 100 05/27/19 00:05 95 16 115/59 (77) 100 05/27/19 00:00 97.7 96 16 108/58 (75) 100 05/27/19 00:00 Mechanical Ventilator 05/26/19 23:55 97 16 90/55 (67) 100 05/26/19 23:50 99 20 77/42 (54) 99 05/26/19 23:45 99 10 79/51 (60) 100 05/26/19 23:43 100 12 84/50 (61) 100 05/26/19 23:33 102 05/26/19 23:30 99 16 80 05/26/19 23:30 101 17 105/61 (76) 100 05/26/19 23:15 147 27 192/104 (133) 100 05/26/19 23:13 143 22 184/101 (128) 100 05/26/19 23:05 63 11 41/22 (28) 83 05/26/19 23:02 81 14 50/28 (35) 86 05/26/19 22:38 72 05/26/19 22:30 71 30 87 05/26/19 21:00 76 116/51 05/26/19 21:00 Non-Rebreather 10.0 05/26/19 20:08 91 Non-Rebreather 15.0 100 05/26/19 20:00 97.5 73 28 130/75 (93) 91 05/26/19 20:00 69 05/26/19 16:00 97.7 68 28 115/48 (70) 92 05/26/19 16:00 73 05/26/19 12:00 89 05/26/19 12:00 97.3 74 28 125/42 (69) 97 I&O Intake and Output 05/26/19 05/27/19 18:59 06:59 Intake Total 40 ml 190 ml Output Total 100 ml 550 ml Balance -60 ml -360 ml IV Total 150 ml Tube Feeding 40 ml 40 ml Output Urine Total 100 ml 550 ml Dressing: other Wound: other Drains: other Cardiovascular: RSR Respiratory: decreased breath sounds Abdomen: soft, non-distended, decreased bowel sounds Extremities: edema - improving , no tenderness, no cyanosis, other Laboratory Tests Test 05/26/19 20:56 05/27/19 00:21 05/27/19 04:15 05/27/19 07:27 Arterial Blood pH 7.069 (7.350-7.450) 7.174 (7.350-7.450) 7.250 (7.350-7.450) Arterial Blood Partial Pressure CO2 81.1 mmHg (35.0-45.0) *H 60.2 mmHg (35.0-45.0) *H 60.5 mmHg (35.0-45.0) *H Arterial Blood Partial Pressure O2 56.9 mmHg (75.0-100.0) L 90.6 mmHg (75.0-100.0) 69.0 mmHg (75.0-100.0) L Arterial Blood HCO3 22.9 mmol/L (22.0-26.0) 21.7 mmol/L (22.0-26.0) L 25.9 mmol/L (22.0-26.0) Arterial Blood Oxygen Saturation 87.6 % (95-100) *L 96.2 % (95-100) 93.7 % (95-100) L Arterial Blood Base Excess -7.7 (-2-2) L -6.8 (-2-2) L -1.7 (-2-2) Koby Test Positive Positive Positive White Blood Count 9.5 K/UL (4.8-10.8) Red Blood Count 2.65 M/UL (4.70-6.10) L Hemoglobin 8.1 G/DL (14.2-18.0) L Hematocrit 25.3 % (42.0-52.0) L Mean Corpuscular Volume 95 FL (80-99) Mean Corpuscular Hemoglobin 30.4 PG (27.0-31.0) Mean Corpuscular Hemoglobin Concent 31.9 G/DL (32.0-36.0) L Red Cell Distribution Width 16.3 % (11.6-14.8) H Platelet Count 226 K/UL (150-450) Mean Platelet Volume 4.6 FL (6.5-10.1) L Neutrophils (%) (Auto) % (45.0-75.0) Lymphocytes (%) (Auto) % (20.0-45.0) Monocytes (%) (Auto) % (1.0-10.0) Eosinophils (%) (Auto) % (0.0-3.0) Basophils (%) (Auto) % (0.0-2.0) Differential Total Cells Counted 100 Neutrophils % (Manual) 89 % (45-75) H Lymphocytes % (Manual) 5 % (20-45) L Monocytes % (Manual) 5 % (1-10) Eosinophils % (Manual) 1 % (0-3) Basophils % (Manual) 0 % (0-2) Band Neutrophils 0 % (0-8) Platelet Estimate Adequate Platelet Morphology Normal Hypochromasia 2+ Anisocytosis 1+ Sodium Level 143 MMOL/L (136-145) Potassium Level 5.1 MMOL/L (3.5-5.1) Chloride Level 113 MMOL/L (98-107) H Carbon Dioxide Level 25 MMOL/L (21-32) Anion Gap 5 mmol/L (5-15) Blood Urea Nitrogen 59 mg/dL (7-18) H Creatinine 3.1 MG/DL (0.55-1.30) H Estimat Glomerular Filtration Rate mL/min (>60) Glucose Level 141 MG/DL (74-106) H Uric Acid 6.1 MG/DL (2.6-7.2) Calcium Level 7.8 MG/DL (8.5-10.1) L Phosphorus Level 5.2 MG/DL (2.5-4.9) H Magnesium Level 2.0 MG/DL (1.8-2.4) Total Bilirubin 0.3 MG/DL (0.2-1.0) Aspartate Amino Transf (AST/SGOT) 30 U/L (15-37) Alanine Aminotransferase (ALT/SGPT) 23 U/L (12-78) Alkaline Phosphatase 64 U/L (46-116) C-Reactive Protein, Quantitative 4.3 mg/dL (0.00-0.90) H Pro-B-Type Natriuretic Peptide 5778 pg/mL (0-125) H Total Protein 4.7 G/DL (6.4-8.2) L Albumin 1.5 G/DL (3.4-5.0) L Globulin 3.2 g/dL Albumin/Globulin Ratio 0.5 (1.0-2.7) L Plan Problems: (1) Cellulitis of upper extremity Assessment & Plan: 84M with RUE cellulitis, edema, erythema. no drainage. has RUE picc line recommend removal of picc. removed at bedside by myself on 05/18. pressure held, hemostasis noted, dressings applied. cath tip sent for cultures DVT duplex studies with acute thrombus IV Abx as per ID UA pending Cx results keep RUE elevated on pillows okay for diet AM labs anticoagulation off load pressure for dti noted cellulitis and edema improved deteriorated intubated on vent support likely respiratory insufficiency labs ordered wean vent okay for tube feeds via ng will follow with recs thank you (2) Cellulitis Assessment & Plan: Pt presented on admission with reabsorbing blister lateral R heel. Base of injury indurated with delineated margins(L)4cm x (W)3cm.Non- blanching erythema Sacrum ,R and L buttocks(L)8.5cm x (W)9cm, with a partial thickness pressure injury noted to L buttocks. Base of wound is moist and viable (L)2.3cm x (W)3cm. Area around wound tender when minimally palpated. Pt noted to be wearing splint L foot. Per pt he fractured foot a few weeks ago. Splint removed to assess skin integrity. L heel and malleoli are pink and blanchable.Cavilon Skin Barrier applied to L heel and malleoli and each area covered with Optifoam drsg. Splint reapplied. No other skin concerns noted. Tx.Plan: Apply Moisture Barrier to Buttocks. Cover with Optifoam drsg. Changee very 3 days and prn. Apply Cavilon Skin Barrier to both heels. Cover each heel with Optifoam drsg. Change every 7 days and prn APM/SCOOBY Mattress overlay. Reposition at least every 2hours or as tolerated. Off-load heels with pillow. Bennett Logan May 27, 2019 11:54
--- NOTE | 2019-05-27 12:09 | Diagnostic Imaging Report ---
Indication: Dyspnea Technique: One view of the chest Comparison: 8 hours earlier Findings: Stable satisfactory position of endotracheal tube, nasogastric tube, left jugular central venous catheter. Bilateral diffuse interstitial and airspace disease persists, probably unchanged. Bilateral pleural effusions appear to be increased. Impression: Increased bilateral pleural effusions, over 8 hours Other stable findings as described
[2019-05-27] MEDS: Pantoprazole Inj IVP SCH ×2 (12:22→20:48)
[2019-05-27] MEDS: Piperacillin/Tazobactam 3.375 GM in NS 110 ML IVPB SCH ×2 (12:22→23:19)
--- NOTE | 2019-05-27 13:00 | Hematology/Onc Progress Note ---
Assessment/Plan Assessment/Plan Assessment and Recs: # Right upper arm extremity axillary vein dvt --> agree to continue eliquis --> as per cards low dose eliquis --> continue for total of minimum of 3 months --> rescan arm in 3 mo # Anemia of chronic disease due to underlying chronic medical issues, multifactorial v Gi bleed --> Anemia workup has been reviewed, rule out gi bleed --> No evidence of hemolysis is noted, peripheral smear has been reviewed. --> Hgb goal >7. Transfuse prn. --> Epogen or iron at this time is not particularly indicated --> Medications have been reviewed --> low threshold for gi evaluation in case has occult + --> hgb trend: 9.3-->9.7-->8.1 # Cellulitis of upper extremity, likely picc line infection --> as per id on ax --> picc off --> levoflox/vanc-->zosyn/vanc # Renal insufficiency --> per Dr. Mera # Pneumonia --> abx per id # Dehydration. --> goal of euvolemia # Paroxysmal Atrial fibrillation with rapid ventricular response was on amiodarone gtt, now in sinus rhythm. --> per cards On PO amiodarone 200 bid, Lopressor 25 bid and Eliquis 2.5 bid # Dysphagia with ng tube The timing of this note does not necessarily reflect the time of the patient was seen. Greatly appreciate consultation. Subjective Allergies: Coded Allergies: No Known Allergies (Unverified , 05/18/19) Subjective 05/24: awake and alert, v mask, labs reviewed, apixaban 05/25: as per gi, ngt and eliquis tolerated 05/26: pending clearance but still with ng and nonrebreather 05/27: hypoxic yesterday, deteriorated, coded, now intubated, icu, labs noted Objective Objective Current Medications Medications (Trade) Dose Ordered Sig/Phillip Route PRN Reason Start Time Stop Time Status Last Admin Dose Admin Acetaminophen (Tylenol) 500 mg Q4H PRN GT Mild Pain/Temp > 100.5 05/27/19 07:45 06/19/19 20:29 05/27/19 08:34 Amiodarone HCl (Cordarone) 200 mg DAILY ORAL 05/26/19 09:00 06/21/19 20:59 05/27/19 08:35 Apixaban (Eliquis) 2.5 mg BID ORAL 05/26/19 09:00 06/25/19 08:59 05/27/19 08:36 Chlorhexidine Gluconate (Reina-Hex 2%) 1 applic DAILY@1999 TOPIC 05/27/19 20:00 06/26/19 19:59 Chlorhexidine Gluconate (Reina-Hex 2%) 1 applic DAILY@1999 TOPIC 05/27/19 20:00 06/26/19 19:59 Docusate Sodium (Colace) 100 mg TID NG 05/27/19 09:00 06/20/19 08:59 05/27/19 12:50 Norepinephrine Bitartrate 4 mg/ Dextrose 250 ml @ 0 mls/hr Q24H IV 05/27/19 00:30 06/26/19 00:29 05/27/19 07:48 Pantoprazole (Protonix) 40 mg EVERY 12 HOURS IVP 05/27/19 10:45 06/26/19 10:44 05/27/19 12:22 Piperacillin Sod/ Tazobactam Sod 3.375 gm/Sodium Chloride 110 ml @ 27.5 mls/hr Q12H IVPB 05/27/19 11:30 06/03/19 11:29 05/27/19 12:22 Sodium Chloride 1,000 ml @ 75 mls/hr [id number] IV 05/27/19 10:45 06/26/19 10:44 05/27/19 12:22 Vancomycin HCl (Vanco rx to dose) 1 ea DAILY PRN MISC Per rx protocol 05/20/19 20:30 06/19/19 20:29 Vancomycin HCl 750 mg/Sodium Chloride 275 ml @ 183.333 mls/hr Q24H IVPB 05/26/19 10:00 05/31/19 09:59 05/27/19 10:39 Last 24 Hour Vital Signs Date Time Temp Pulse Resp B/P (MAP) Pulse Ox O2 Delivery O2 Flow Rate FiO2 05/27/19 11:30 83 20 128/45 (72) 93 05/27/19 11:00 80 21 112/42 (65) 95 05/27/19 10:53 77 20 80 05/27/19 10:30 74 16 111/43 (65) 95 05/27/19 10:00 75 14 106/42 (63) 95 05/27/19 09:30 77 23 106/42 (63) 95 05/27/19 09:15 79 19 112/37 (62) 95 05/27/19 09:04 102.6 05/27/19 09:00 102.6 77 17 111/38 (62) 94 05/27/19 08:45 79 20 107/43 (64) 95 05/27/19 08:45 79 18 80 05/27/19 08:34 78 103/37 05/27/19 08:33 78 103/37 05/27/19 08:30 79 15 103/37 (59) 99 05/27/19 08:15 80 15 99/39 (59) 99 05/27/19 08:00 101.3 82 0 102/40 (60) 98 05/27/19 08:00 Mechanical Ventilator 05/27/19 07:48 105/37 05/27/19 07:45 84 12 105/37 (59) 97 05/27/19 07:30 81 20 102/40 (60) 98 05/27/19 07:20 80 19 80 05/27/19 07:20 98 Mechanical Ventilator 50.0 98 05/27/19 07:15 82 20 103/35 (57) 97 05/27/19 07:00 96/40 05/27/19 07:00 82 19 96/40 (58) 98 05/27/19 06:45 82 18 100/36 (57) 97 05/27/19 06:30 82 20 89/40 (56) 97 05/27/19 06:00 101/42 05/27/19 06:00 84 18 101/42 (61) 96 05/27/19 05:30 89 21 80 05/27/19 05:30 83 16 101/40 (60) 97 05/27/19 05:15 83 16 97/40 (59) 97 05/27/19 05:00 83 16 97/43 (61) 97 05/27/19 05:00 97/43 05/27/19 04:45 82 13 93/38 (56) 97 05/27/19 04:30 83 16 92/39 (56) 97 05/27/19 04:15 83 16 93/39 (57) 97 05/27/19 04:00 Mechanical Ventilator 05/27/19 04:00 100.0 84 16 101/42 (61) 96 05/27/19 04:00 101/42 05/27/19 03:50 83 05/27/19 03:45 85 17 80 05/27/19 03:30 83 16 100/40 (60) 98 05/27/19 03:00 83 16 80/38 (52) 97 05/27/19 03:00 80/38 05/27/19 02:45 84 19 90/37 (54) 97 05/27/19 02:30 85 20 92/36 (54) 98 05/27/19 02:15 85 21 94/40 (58) 98 05/27/19 02:00 95/35 05/27/19 02:00 86 17 95/35 (55) 98 05/27/19 01:45 88 17 95/37 (56) 97 05/27/19 01:40 88 16 98/35 (56) 98 05/27/19 01:30 90 12 97/33 (54) 97 05/27/19 01:25 89 17 96/40 (58) 97 05/27/19 01:19 92/42 05/27/19 01:15 88 21 92/41 (58) 98 05/27/19 01:05 85 18 80 05/27/19 01:00 90 16 91/37 (55) 100 05/27/19 00:50 94 16 97/47 (64) 100 05/27/19 00:45 91 16 96/41 (59) 100 05/27/19 00:40 93 16 88/47 (61) 100 05/27/19 00:35 91 16 105/57 (73) 100 05/27/19 00:30 91 16 104/62 (76) 100 05/27/19 00:25 92 16 108/47 (67) 100 05/27/19 00:20 92 16 100/53 (69) 100 05/27/19 00:15 92 16 106/64 (78) 100 05/27/19 00:10 95 16 123/57 (79) 100 05/27/19 00:05 95 16 115/59 (77) 100 05/27/19 00:00 97.7 96 16 108/58 (75) 100 05/27/19 00:00 Mechanical Ventilator 05/26/19 23:55 97 16 90/55 (67) 100 05/26/19 23:50 99 20 77/42 (54) 99 05/26/19 23:45 99 10 79/51 (60) 100 05/26/19 23:43 100 12 84/50 (61) 100 05/26/19 23:33 102 05/26/19 23:30 99 16 80 05/26/19 23:30 101 17 105/61 (76) 100 05/26/19 23:15 147 27 192/104 (133) 100 05/26/19 23:13 143 22 184/101 (128) 100 05/26/19 23:05 63 11 41/22 (28) 83 05/26/19 23:02 81 14 50/28 (35) 86 05/26/19 22:38 72 05/26/19 22:30 71 30 87 05/26/19 21:00 76 116/51 05/26/19 21:00 Non-Rebreather 10.0 05/26/19 20:08 91 Non-Rebreather 15.0 100 05/26/19 20:00 97.5 73 28 130/75 (93) 91 05/26/19 20:00 69 05/26/19 16:00 97.7 68 28 115/48 (70) 92 05/26/19 16:00 73 05/26/19 12:00 89 05/26/19 12:00 97.3 74 28 125/42 (69) 97 05/26/19 09:00 Non-Rebreather 10.0 05/26/19 08:47 59 136/57 05/26/19 08:46 64 136/57 05/26/19 08:00 71 05/26/19 08:00 97.3 64 25 136/57 (83) 98 05/26/19 07:44 52 22 93 Non-Rebreather 15.0 100 45 22 95 05/26/19 07:44 99 Non-Rebreather 15.0 100 05/26/19 04:00 97.7 74 22 123/58 (79) 96 05/26/19 04:00 73 05/26/19 01:31 60 23 95 Non-Rebreather 15.0 100 44 23 98 05/26/19 00:00 97.9 65 22 134/46 (75) 98 05/26/19 00:00 79 05/25/19 21:00 45 109/76 05/25/19 21:00 Non-Rebreather 10.0 05/25/19 20:00 92 05/25/19 20:00 97.9 45 26 109/76 (87) 95 05/25/19 19:51 96 Non-Rebreather 15.0 100 05/25/19 19:51 66 23 94 Non-Rebreather 15.0 100 46 19 96 05/25/19 16:00 97.7 43 24 133/55 (81) 94 05/25/19 16:00 60 05/25/19 13:38 61 22 93 Venturi Mask 14.0 55 58 22 91 Intake and Output 05/26/19 05/27/19 19:00 07:00 Intake Total 40 ml 180 ml Output Total 100 ml 560 ml Balance -60 ml -380 ml IV Total 180 ml Tube Feeding 40 ml 0 ml Output Urine Total 100 ml 560 ml Labs Test 05/25/19 07:20 05/26/19 11:35 05/26/19 20:56 05/27/19 00:21 White Blood Count 11.6 K/UL (4.8-10.8) Red Blood Count 3.21 M/UL (4.70-6.10) Hemoglobin 9.7 G/DL (14.2-18.0) Hematocrit 30.4 % (42.0-52.0) Mean Corpuscular Volume 95 FL (80-99) Mean Corpuscular Hemoglobin 30.3 PG (27.0-31.0) Mean Corpuscular Hemoglobin Concent 32.0 G/DL (32.0-36.0) Red Cell Distribution Width 15.8 % (11.6-14.8) Platelet Count 265 K/UL (150-450) Mean Platelet Volume 4.6 FL (6.5-10.1) Neutrophils (%) (Auto) % (45.0-75.0) Lymphocytes (%) (Auto) % (20.0-45.0) Monocytes (%) (Auto) % (1.0-10.0) Eosinophils (%) (Auto) % (0.0-3.0) Basophils (%) (Auto) % (0.0-2.0) Differential Total Cells Counted 100 Neutrophils % (Manual) 90 % (45-75) Lymphocytes % (Manual) 3 % (20-45) Monocytes % (Manual) 7 % (1-10) Eosinophils % (Manual) 0 % (0-3) Basophils % (Manual) 0 % (0-2) Band Neutrophils 0 % (0-8) Platelet Estimate Adequate Platelet Morphology Normal Anisocytosis 1+ Sodium Level 143 MMOL/L (136-145) 149 MMOL/L (136-145) Potassium Level 4.7 MMOL/L (3.5-5.1) 5.4 MMOL/L (3.5-5.1) Chloride Level 114 MMOL/L (98-107) 116 MMOL/L (98-107) Carbon Dioxide Level 23 MMOL/L (21-32) 26 MMOL/L (21-32) Anion Gap 6 mmol/L (5-15) 7 mmol/L (5-15) Blood Urea Nitrogen 41 mg/dL (7-18) 56 mg/dL (7-18) Creatinine 2.0 MG/DL (0.55-1.30) 2.5 MG/DL (0.55-1.30) Estimat Glomerular Filtration Rate mL/min (>60) mL/min (>60) Glucose Level 130 MG/DL (74-106) 154 MG/DL (74-106) Calcium Level 7.8 MG/DL (8.5-10.1) 8.0 MG/DL (8.5-10.1) Magnesium Level 2.2 MG/DL (1.8-2.4) Random Vancomycin Level 19.1 ug/mL Arterial Blood pH 7.069 (7.350-7.450) 7.174 (7.350-7.450) Arterial Blood Partial Pressure CO2 81.1 mmHg (35.0-45.0) 60.2 mmHg (35.0-45.0) Arterial Blood Partial Pressure O2 56.9 mmHg (75.0-100.0) 90.6 mmHg (75.0-100.0) Arterial Blood HCO3 22.9 mmol/L (22.0-26.0) 21.7 mmol/L (22.0-26.0) Arterial Blood Oxygen Saturation 87.6 % (95-100) 96.2 % (95-100) Arterial Blood Base Excess -7.7 (-2-2) -6.8 (-2-2) Koby Test Positive Positive Test 05/27/19 04:15 05/27/19 07:27 White Blood Count 9.5 K/UL (4.8-10.8) Red Blood Count 2.65 M/UL (4.70-6.10) Hemoglobin 8.1 G/DL (14.2-18.0) Hematocrit 25.3 % (42.0-52.0) Mean Corpuscular Volume 95 FL (80-99) Mean Corpuscular Hemoglobin 30.4 PG (27.0-31.0) Mean Corpuscular Hemoglobin Concent 31.9 G/DL (32.0-36.0) Red Cell Distribution Width 16.3 % (11.6-14.8) Platelet Count 226 K/UL (150-450) Mean Platelet Volume 4.6 FL (6.5-10.1) Neutrophils (%) (Auto) % (45.0-75.0) Lymphocytes (%) (Auto) % (20.0-45.0) Monocytes (%) (Auto) % (1.0-10.0) Eosinophils (%) (Auto) % (0.0-3.0) Basophils (%) (Auto) % (0.0-2.0) Differential Total Cells Counted 100 Neutrophils % (Manual) 89 % (45-75) Lymphocytes % (Manual) 5 % (20-45) Monocytes % (Manual) 5 % (1-10) Eosinophils % (Manual) 1 % (0-3) Basophils % (Manual) 0 % (0-2) Band Neutrophils 0 % (0-8) Platelet Estimate Adequate Platelet Morphology Normal Hypochromasia 2+ Anisocytosis 1+ Sodium Level 143 MMOL/L (136-145) Potassium Level 5.1 MMOL/L (3.5-5.1) Chloride Level 113 MMOL/L (98-107) Carbon Dioxide Level 25 MMOL/L (21-32) Anion Gap 5 mmol/L (5-15) Blood Urea Nitrogen 59 mg/dL (7-18) Creatinine 3.1 MG/DL (0.55-1.30) Estimat Glomerular Filtration Rate mL/min (>60) Glucose Level 141 MG/DL (74-106) Uric Acid 6.1 MG/DL (2.6-7.2) Calcium Level 7.8 MG/DL (8.5-10.1) Phosphorus Level 5.2 MG/DL (2.5-4.9) Magnesium Level 2.0 MG/DL (1.8-2.4) Total Bilirubin 0.3 MG/DL (0.2-1.0) Aspartate Amino Transf (AST/SGOT) 30 U/L (15-37) Alanine Aminotransferase (ALT/SGPT) 23 U/L (12-78) Alkaline Phosphatase 64 U/L (46-116) C-Reactive Protein, Quantitative 4.3 mg/dL (0.00-0.90) Pro-B-Type Natriuretic Peptide 5778 pg/mL (0-125) Total Protein 4.7 G/DL (6.4-8.2) Albumin 1.5 G/DL (3.4-5.0) Globulin 3.2 g/dL Albumin/Globulin Ratio 0.5 (1.0-2.7) Arterial Blood pH 7.250 (7.350-7.450) Arterial Blood Partial Pressure CO2 60.5 mmHg (35.0-45.0) Arterial Blood Partial Pressure O2 69.0 mmHg (75.0-100.0) Arterial Blood HCO3 25.9 mmol/L (22.0-26.0) Arterial Blood Oxygen Saturation 93.7 % (95-100) Arterial Blood Base Excess -1.7 (-2-2) Koby Test Positive Height (Feet): 5 Height (Inches): 7.00 Weight (Pounds): 173 Objective PE: Vitals: reviewed General Appearance: NAD HEENT: normocephalic, atraumatic++ ngt Neck: non-tender, normal alignment Respiratory/Chest: VENT++ Cardiovascular/Chest: normal peripheral pulses, normal rate Abdomen: normal bowel sounds, soft, nontender Extremities: normal range of motion ++ right arm swelling Suleman Addison MD May 27, 2019 13:00
--- NOTE | 2019-05-27 14:15 | Diagnostic Imaging Report ---
Indication: Post intubation Technique: One view of the chest Comparison: 05/25/2019 Findings: Interim endotracheal intubation, endotracheal tube tip projecting in position approximately 2 cm above the leandro. Interim placement left jugular central venous catheter, tip of which projects at the level superior vena cava. No pneumothorax. Stable apparent satisfactory position of nasogastric tube. There are overlying defibrillator paddles. There are bilateral pleural effusions, distribution of which is somewhat more cephalad presumably due to interim change in position. Bilateral diffuse interstitial and airspace edema appears slightly worse, particularly in the lower lobes. Impression: Satisfactory endotracheal intubation Satisfactory left jugular central venous catheter placement, no radiographically evident complication Worsening parenchymal disease bilaterally, over one day This agrees with the preliminary interpretation provided overnight by [facility] teleradiology service.
--- NOTE | 2019-05-27 14:45 | Cardiac Electrophysiology PN ---
Assessment/Plan Assessment/Plan 1. Paroxysmal Atrial fibrillation with rapid ventricular response. Was on amiodarone gtt, now in sinus rhythm. On PO amiodarone 200 and Eliquis 2.5 bid. 2. Bradycardia with HR dropped to 30s. Resolved after Amiodarone decreased to 200 daily 3. Hypotension. DC Norvasc and metoprolol. On Levophed 8 mcg 4. Renal failure with Cr 2.0. Off ACEI and ARB 5. Dysphagia. NG tube feeding FU Dr Lino 6. Swelling around PICC line that was removed 05/18/19 Blood Cx 05/18/19 - NGTD 7. Respiratory failure on the vent now. Intubated 05/26/19 8. Left leg DVT on Eliquis DW RN Subjective Subjective Still has NG tube. Transferred to ICU after [facility] for respiratory failure last night and is also on Levophed 8 mcg Coded in the process of intubation for asystole for 2 minutes. Had 8 beats of VT at 6.47 am 05/25/19 Objective Last 24 Hour Vital Signs Date Time Temp Pulse Resp B/P (MAP) Pulse Ox O2 Delivery O2 Flow Rate FiO2 05/27/19 12:54 88 21 80 05/27/19 11:30 83 20 128/45 (72) 93 05/27/19 11:00 80 21 112/42 (65) 95 05/27/19 10:53 77 20 80 05/27/19 10:30 74 16 111/43 (65) 95 05/27/19 10:00 75 14 106/42 (63) 95 05/27/19 09:30 77 23 106/42 (63) 95 05/27/19 09:15 79 19 112/37 (62) 95 05/27/19 09:04 102.6 05/27/19 09:00 102.6 77 17 111/38 (62) 94 05/27/19 08:45 79 20 107/43 (64) 95 05/27/19 08:45 79 18 80 05/27/19 08:34 78 103/37 05/27/19 08:33 78 103/37 05/27/19 08:30 79 15 103/37 (59) 99 05/27/19 08:15 80 15 99/39 (59) 99 05/27/19 08:00 101.3 82 0 102/40 (60) 98 05/27/19 08:00 Mechanical Ventilator 05/27/19 07:48 105/37 05/27/19 07:45 84 12 105/37 (59) 97 05/27/19 07:30 81 20 102/40 (60) 98 05/27/19 07:20 80 19 80 05/27/19 07:20 98 Mechanical Ventilator 50.0 98 05/27/19 07:15 82 20 103/35 (57) 97 05/27/19 07:00 96/40 05/27/19 07:00 82 19 96/40 (58) 98 05/27/19 06:45 82 18 100/36 (57) 97 05/27/19 06:30 82 20 89/40 (56) 97 05/27/19 06:00 101/42 05/27/19 06:00 84 18 101/42 (61) 96 05/27/19 05:30 89 21 80 05/27/19 05:30 83 16 101/40 (60) 97 05/27/19 05:15 83 16 97/40 (59) 97 05/27/19 05:00 83 16 97/43 (61) 97 05/27/19 05:00 97/43 05/27/19 04:45 82 13 93/38 (56) 97 05/27/19 04:30 83 16 92/39 (56) 97 05/27/19 04:15 83 16 93/39 (57) 97 05/27/19 04:00 Mechanical Ventilator 05/27/19 04:00 100.0 84 16 101/42 (61) 96 05/27/19 04:00 101/42 05/27/19 03:50 83 05/27/19 03:45 85 17 80 05/27/19 03:30 83 16 100/40 (60) 98 05/27/19 03:00 83 16 80/38 (52) 97 05/27/19 03:00 80/38 05/27/19 02:45 84 19 90/37 (54) 97 05/27/19 02:30 85 20 92/36 (54) 98 05/27/19 02:15 85 21 94/40 (58) 98 05/27/19 02:00 95/35 05/27/19 02:00 86 17 95/35 (55) 98 05/27/19 01:45 88 17 95/37 (56) 97 05/27/19 01:40 88 16 98/35 (56) 98 05/27/19 01:30 90 12 97/33 (54) 97 05/27/19 01:25 89 17 96/40 (58) 97 05/27/19 01:19 92/42 05/27/19 01:15 88 21 92/41 (58) 98 05/27/19 01:05 85 18 80 05/27/19 01:00 90 16 91/37 (55) 100 05/27/19 00:50 94 16 97/47 (64) 100 05/27/19 00:45 91 16 96/41 (59) 100 05/27/19 00:40 93 16 88/47 (61) 100 05/27/19 00:35 91 16 105/57 (73) 100 05/27/19 00:30 91 16 104/62 (76) 100 05/27/19 00:25 92 16 108/47 (67) 100 05/27/19 00:20 92 16 100/53 (69) 100 05/27/19 00:15 92 16 106/64 (78) 100 05/27/19 00:10 95 16 123/57 (79) 100 05/27/19 00:05 95 16 115/59 (77) 100 05/27/19 00:00 97.7 96 16 108/58 (75) 100 05/27/19 00:00 Mechanical Ventilator 05/26/19 23:55 97 16 90/55 (67) 100 05/26/19 23:50 99 20 77/42 (54) 99 05/26/19 23:45 99 10 79/51 (60) 100 05/26/19 23:43 100 12 84/50 (61) 100 05/26/19 23:33 102 05/26/19 23:30 99 16 80 05/26/19 23:30 101 17 105/61 (76) 100 05/26/19 23:15 147 27 192/104 (133) 100 05/26/19 23:13 143 22 184/101 (128) 100 05/26/19 23:05 63 11 41/22 (28) 83 05/26/19 23:02 81 14 50/28 (35) 86 05/26/19 22:38 72 05/26/19 22:30 71 30 87 05/26/19 21:00 76 116/51 05/26/19 21:00 Non-Rebreather 10.0 05/26/19 20:08 91 Non-Rebreather 15.0 100 05/26/19 20:00 97.5 73 28 130/75 (93) 91 05/26/19 20:00 69 05/26/19 16:00 97.7 68 28 115/48 (70) 92 05/26/19 16:00 73 Intake and Output 05/26/19 05/27/19 19:00 07:00 Intake Total 40 ml 180 ml Output Total 100 ml 560 ml Balance -60 ml -380 ml IV Total 180 ml Tube Feeding 40 ml 0 ml Output Urine Total 100 ml 560 ml Laboratory Tests Test 05/26/19 20:56 05/27/19 00:21 05/27/19 04:15 05/27/19 07:27 Arterial Blood pH 7.069 (7.350-7.450) 7.174 (7.350-7.450) 7.250 (7.350-7.450) Arterial Blood Partial Pressure CO2 81.1 mmHg (35.0-45.0) *H 60.2 mmHg (35.0-45.0) *H 60.5 mmHg (35.0-45.0) *H Arterial Blood Partial Pressure O2 56.9 mmHg (75.0-100.0) L 90.6 mmHg (75.0-100.0) 69.0 mmHg (75.0-100.0) L Arterial Blood HCO3 22.9 mmol/L (22.0-26.0) 21.7 mmol/L (22.0-26.0) L 25.9 mmol/L (22.0-26.0) Arterial Blood Oxygen Saturation 87.6 % (95-100) *L 96.2 % (95-100) 93.7 % (95-100) L Arterial Blood Base Excess -7.7 (-2-2) L -6.8 (-2-2) L -1.7 (-2-2) Koby Test Positive Positive Positive White Blood Count 9.5 K/UL (4.8-10.8) Red Blood Count 2.65 M/UL (4.70-6.10) L Hemoglobin 8.1 G/DL (14.2-18.0) L Hematocrit 25.3 % (42.0-52.0) L Mean Corpuscular Volume 95 FL (80-99) Mean Corpuscular Hemoglobin 30.4 PG (27.0-31.0) Mean Corpuscular Hemoglobin Concent 31.9 G/DL (32.0-36.0) L Red Cell Distribution Width 16.3 % (11.6-14.8) H Platelet Count 226 K/UL (150-450) Mean Platelet Volume 4.6 FL (6.5-10.1) L Neutrophils (%) (Auto) % (45.0-75.0) Lymphocytes (%) (Auto) % (20.0-45.0) Monocytes (%) (Auto) % (1.0-10.0) Eosinophils (%) (Auto) % (0.0-3.0) Basophils (%) (Auto) % (0.0-2.0) Differential Total Cells Counted 100 Neutrophils % (Manual) 89 % (45-75) H Lymphocytes % (Manual) 5 % (20-45) L Monocytes % (Manual) 5 % (1-10) Eosinophils % (Manual) 1 % (0-3) Basophils % (Manual) 0 % (0-2) Band Neutrophils 0 % (0-8) Platelet Estimate Adequate Platelet Morphology Normal Hypochromasia 2+ Anisocytosis 1+ Sodium Level 143 MMOL/L (136-145) Potassium Level 5.1 MMOL/L (3.5-5.1) Chloride Level 113 MMOL/L (98-107) H Carbon Dioxide Level 25 MMOL/L (21-32) Anion Gap 5 mmol/L (5-15) Blood Urea Nitrogen 59 mg/dL (7-18) H Creatinine 3.1 MG/DL (0.55-1.30) H Estimat Glomerular Filtration Rate mL/min (>60) Glucose Level 141 MG/DL (74-106) H Uric Acid 6.1 MG/DL (2.6-7.2) Calcium Level 7.8 MG/DL (8.5-10.1) L Phosphorus Level 5.2 MG/DL (2.5-4.9) H Magnesium Level 2.0 MG/DL (1.8-2.4) Total Bilirubin 0.3 MG/DL (0.2-1.0) Aspartate Amino Transf (AST/SGOT) 30 U/L (15-37) Alanine Aminotransferase (ALT/SGPT) 23 U/L (12-78) Alkaline Phosphatase 64 U/L (46-116) C-Reactive Protein, Quantitative 4.3 mg/dL (0.00-0.90) H Pro-B-Type Natriuretic Peptide 5778 pg/mL (0-125) H Total Protein 4.7 G/DL (6.4-8.2) L Albumin 1.5 G/DL (3.4-5.0) L Globulin 3.2 g/dL Albumin/Globulin Ratio 0.5 (1.0-2.7) L Objective HEENT: No JVD. NG tube is in. Orally intubated LUNGS: Clear CVS: RRR ABDOMEN: Soft. EXT No edema. Left leg in splint Del Alcaraz MD May 27, 2019 14:45
[2019-05-27] MEDS ORDERED: NS 275ml ONE ×2 (15:04→15:05)
[2019-05-27] MEDS ORDERED: Tubing IV Secondary IV ONE (15:05)
[2019-05-27] MEDS ORDERED: 1/2 NS 1000ml IV ONE (15:05)
--- NOTE | 2019-05-27 15:23 | General Progress Note ---
Assessment/Plan Problem List: (1) SOB (shortness of breath) ICD Codes: R06.02 - Shortness of breath SNOMED: 161884424 (2) Cellulitis ICD Codes: L03.90 - Cellulitis, unspecified SNOMED: 848702960 (3) Cellulitis of upper extremity ICD Codes: L03.119 - Cellulitis of unspecified part of limb SNOMED: 459010840 Qualifiers: Qualified Codes: L03.113 - Cellulitis of right upper limb (4) Renal insufficiency ICD Codes: N28.9 - Disorder of kidney and ureter, unspecified SNOMED: 648446521, 175459230 (5) Renal failure (ARF), acute on chronic ICD Codes: N17.9 - Acute kidney failure, unspecified; N18.9 - Chronic kidney disease, unspecified SNOMED: 430286806 (6) Anemia ICD Codes: D64.9 - Anemia, unspecified SNOMED: 347106187 (7) Hypothyroidism ICD Codes: E03.9 - Hypothyroidism, unspecified SNOMED: 58972030 (8) UTI (urinary tract infection) ICD Codes: N39.0 - Urinary tract infection, site not specified SNOMED: 48288857 Status: progressing, unchanged Assessment/Plan: getting worse transferred to icu critical condition on high volume of oxygen audible crackles dc iv fluids lethargic ng tube unsafe for dc Subjective ROS Limited/Unobtainable: Yes Allergies: Coded Allergies: No Known Allergies (Unverified , 05/18/19) Objective Last 24 Hour Vital Signs Date Time Temp Pulse Resp B/P (MAP) Pulse Ox O2 Delivery O2 Flow Rate FiO2 05/27/19 15:05 83 20 75 05/27/19 12:54 88 21 80 05/27/19 11:30 83 20 128/45 (72) 93 05/27/19 11:00 80 21 112/42 (65) 95 05/27/19 10:53 77 20 80 05/27/19 10:30 74 16 111/43 (65) 95 05/27/19 10:00 75 14 106/42 (63) 95 05/27/19 09:30 77 23 106/42 (63) 95 05/27/19 09:15 79 19 112/37 (62) 05/27/19 09:04 102.6 05/27/19 09:00 102.6 77 17 111/38 (62) 94 05/27/19 08:45 79 20 107/43 (64) 95 05/27/19 08:45 79 18 80 05/27/19 08:34 78 103/37 05/27/19 08:33 78 103/37 05/27/19 08:30 79 15 103/37 (59) 99 05/27/19 08:15 80 15 99/39 (59) 99 05/27/19 08:00 101.3 82 0 102/40 (60) 98 05/27/19 08:00 Mechanical Ventilator 05/27/19 07:48 105/37 05/27/19 07:45 84 12 105/37 (59) 97 05/27/19 07:30 81 20 102/40 (60) 98 05/27/19 07:20 80 19 80 05/27/19 07:20 98 Mechanical Ventilator 50.0 98 05/27/19 07:15 82 20 103/35 (57) 97 05/27/19 07:00 96/40 05/27/19 07:00 82 19 96/40 (58) 98 05/27/19 06:45 82 18 100/36 (57) 97 05/27/19 06:30 82 20 89/40 (56) 97 05/27/19 06:00 101/42 05/27/19 06:00 84 18 101/42 (61) 96 05/27/19 05:30 89 21 80 05/27/19 05:30 83 16 101/40 (60) 97 05/27/19 05:15 83 16 97/40 (59) 97 05/27/19 05:00 83 16 97/43 (61) 97 05/27/19 05:00 97/43 05/27/19 04:45 82 13 93/38 (56) 97 05/27/19 04:30 83 16 92/39 (56) 97 05/27/19 04:15 83 16 93/39 (57) 97 05/27/19 04:00 Mechanical Ventilator 05/27/19 04:00 100.0 84 16 101/42 (61) 96 05/27/19 04:00 101/42 05/27/19 03:50 83 05/27/19 03:45 85 17 80 05/27/19 03:30 83 16 100/40 (60) 98 05/27/19 03:00 83 16 80/38 (52) 97 05/27/19 03:00 80/38 05/27/19 02:45 84 19 90/37 (54) 97 05/27/19 02:30 85 20 92/36 (54) 98 05/27/19 02:15 85 21 94/40 (58) 98 05/27/19 02:00 95/35 05/27/19 02:00 86 17 95/35 (55) 98 05/27/19 01:45 88 17 95/37 (56) 97 05/27/19 01:40 88 16 98/35 (56) 98 05/27/19 01:30 90 12 97/33 (54) 97 05/27/19 01:25 89 17 96/40 (58) 97 05/27/19 01:19 92/42 05/27/19 01:15 88 21 92/41 (58) 98 05/27/19 01:05 85 18 80 05/27/19 01:00 90 16 91/37 (55) 100 05/27/19 00:50 94 16 97/47 (64) 100 05/27/19 00:45 91 16 96/41 (59) 100 05/27/19 00:40 93 16 88/47 (61) 100 05/27/19 00:35 91 16 105/57 (73) 100 05/27/19 00:30 91 16 104/62 (76) 100 05/27/19 00:25 92 16 108/47 (67) 100 05/27/19 00:20 92 16 100/53 (69) 100 05/27/19 00:15 92 16 106/64 (78) 100 05/27/19 00:10 95 16 123/57 (79) 100 05/27/19 00:05 95 16 115/59 (77) 100 05/27/19 00:00 97.7 96 16 108/58 (75) 100 05/27/19 00:00 Mechanical Ventilator 05/26/19 23:55 97 16 90/55 (67) 100 05/26/19 23:50 99 20 77/42 (54) 99 05/26/19 23:45 99 10 79/51 (60) 100 05/26/19 23:43 100 12 84/50 (61) 100 05/26/19 23:33 102 05/26/19 23:30 99 16 80 05/26/19 23:30 101 17 105/61 (76) 100 05/26/19 23:15 147 27 192/104 (133) 100 05/26/19 23:13 143 22 184/101 (128) 100 05/26/19 23:05 63 11 41/22 (28) 83 05/26/19 23:02 81 14 50/28 (35) 86 05/26/19 22:38 72 05/26/19 22:30 71 30 87 05/26/19 21:00 76 116/51 05/26/19 21:00 Non-Rebreather 10.0 05/26/19 20:08 91 Non-Rebreather 15.0 100 05/26/19 20:00 97.5 73 28 130/75 (93) 91 05/26/19 20:00 69 05/26/19 16:00 97.7 68 28 115/48 (70) 92 05/26/19 16:00 73 Intake and Output 05/26/19 05/27/19 19:00 07:00 Intake Total 40 ml 180 ml Output Total 100 ml 560 ml Balance -60 ml -380 ml IV Total 180 ml Tube Feeding 40 ml 0 ml Output Urine Total 100 ml 560 ml Laboratory Tests 05/26/19 20:56: Arterial Blood pH 7.069*L, Arterial Blood Partial Pressure CO2 81.1*H, Arterial Blood Partial Pressure O2 56.9L, Arterial Blood HCO3 22.9, Arterial Blood Oxygen Saturation 87.6*L, Arterial Blood Base Excess -7.7L, Koby Test Positive 05/27/19 00:21: Arterial Blood pH 7.174*L, Arterial Blood Partial Pressure CO2 60.2*H, Arterial Blood Partial Pressure O2 90.6, Arterial Blood HCO3 21.7L, Arterial Blood Oxygen Saturation 96.2, Arterial Blood Base Excess -6.8L, Koby Test Positive 05/27/19 04:15: White Blood Count 9.5, Red Blood Count 2.65L, Hemoglobin 8.1L, Hematocrit 25.3L , Mean Corpuscular Volume 95, Mean Corpuscular Hemoglobin 30.4, Mean Corpuscular Hemoglobin Concent 31.9L, Red Cell Distribution Width 16.3H, Platelet Count 226, Mean Platelet Volume 4.6L, Neutrophils (%) (Auto) , Lymphocytes (%) (Auto) , Monocytes (%) (Auto) , Eosinophils (%) (Auto) , Basophils (%) (Auto) , Differential Total Cells Counted 100, Neutrophils % ( Manual) 89H, Lymphocytes % (Manual) 5L, Monocytes % (Manual) 5, Eosinophils % ( Manual) 1, Basophils % (Manual) 0, Band Neutrophils 0, Platelet Estimate Adequate, Platelet Morphology Normal, Hypochromasia 2+, Anisocytosis 1+, Sodium Level 143, Potassium Level 5.1, Chloride Level 113H, Carbon Dioxide Level 25, Anion Gap 5, Blood Urea Nitrogen 59H, Creatinine 3.1H, Estimat Glomerular Filtration Rate , Glucose Level 141H, Uric Acid 6.1, Calcium Level 7.8L, Phosphorus Level 5.2H, Magnesium Level 2.0, Total Bilirubin 0.3, Aspartate Amino Transf (AST/SGOT) 30, Alanine Aminotransferase (ALT/SGPT) 23, Alkaline Phosphatase 64, C-Reactive Protein, Quantitative 4.3H, Pro-B-Type Natriuretic Peptide 5778H, Total Protein 4.7L, Albumin 1.5L, Globulin 3.2, Albumin/Globulin Ratio 0.5L 05/27/19 07:27: Arterial Blood pH 7.250*L, Arterial Blood Partial Pressure CO2 60.5*H, Arterial Blood Partial Pressure O2 69.0L, Arterial Blood HCO3 25.9, Arterial Blood Oxygen Saturation 93.7L, Arterial Blood Base Excess -1.7, Koby Test Positive Height (Feet): 5 Height (Inches): 7.00 Weight (Pounds): 173 Cardiovascular: normal rate Respiratory/Chest: lungs clear Abdomen: soft Joslyn Wiggins MD May 27, 2019 15:22
[2019-05-27] MEDS ORDERED: D5 1/2NS 1000ml IV ONE (16:37)
--- NOTE | 2019-05-27 17:45 | Progress Note ---
DATE: 05/27/2019 ADDENDUM: The patient has a little agitation. He is intubated now. All the medications being discontinued. Continue to follow and readjust the medications. Piter Pedraaz M.D. DR: JESSI JOB#: [id number] CC:
--- NOTE | 2019-05-27 17:45 | Progress Note ---
DATE: 05/27/2019 NOTE: INCOMPLETE DICTATION SUBJECTIVE: The patient apparently coded yesterday and was transferred to [facility]. The patient is more disoriented and confused, intubated now on pressors. Piter Pedraza M.D. DR: GLENDY JOB#: [id number] CC:
[2019-05-27] MEDS ORDERED: Dyna-Hex 2% Top Sol 2oz TOPIC SCH (20:00)
[2019-05-27] MEDS: Dyna-Hex 2% Top Sol 2oz TOPIC SCH (20:03)
[2019-05-27] MEDS ORDERED: Rocuronium Bromide 50mg/5ml Inj IV ONE (20:49)
[2019-05-27] MEDS ORDERED: Etomidate 40mg/20ml Inj IV ONE (20:49)
[2019-05-28] VITALS (52 sets, daily range): BP systolic 85–135; BP diastolic 30–79
[2019-05-28 05:47] LABS: HEMATOCRIT 23.8 % (42.0-52.0); HEMOGLOBIN 7.6 G/DL (14.2-18.0); MEAN CORPUSCULAR VOLUME 94 FL (80-99); PLATELET COUNT 179 K/UL (150-450); RED BLOOD COUNT 2.54 M/UL (4.70-6.10); WHITE BLOOD COUNT 9.9 K/UL (4.8-10.8)
[2019-05-28 05:59] LABS: AMMONIA 20 umol/L (11-32)
[2019-05-28 06:08] LABS: ALANINE AMINOTRANSFERASE 25 U/L (12-78); ALBUMIN 1.8 G/DL (3.4-5.0); ALBUMIN/GLOBULIN RATIO 0.6 (1.0-2.7); ALKALINE PHOSPHATASE 64 U/L (46-116); ANION GAP 8 mmol/L (5-15); ASPARTATE AMINO TRANSFERASE 33 U/L (15-37); BILIRUBIN,TOTAL 0.4 MG/DL (0.2-1.0); BLOOD UREA NITROGEN 67 mg/dL (7-18); CALCIUM 7.2 MG/DL (8.5-10.1); CARBON DIOXIDE 22 MMOL/L (21-32); CHLORIDE 108 MMOL/L (98-107); CREATINE KINASE 109 U/L (26-308); CREATININE 3.5 MG/DL (0.55-1.30); GAMMA GLUTAMYL TRANSPEPTIDASE 30 U/L (5-85); PHOSPHORUS 4.7 MG/DL (2.5-4.9); POTASSIUM 4.4 MMOL/L (3.5-5.1); SODIUM 138 MMOL/L (136-145)
[2019-05-28] MEDS: Docusate 100mg/10ml Liq NG SCH ×3 (08:47→17:58)
[2019-05-28] MEDS: Pantoprazole Inj IVP SCH ×2 (08:48→21:16)
[2019-05-28] MEDS: Amiodarone 200mg tab ORAL SCH ×2 (08:48→15:38)
[2019-05-28] MEDS: Eliquis 2.5mg tablet ORAL SCH ×2 (08:48→17:59)
--- NOTE | 2019-05-28 10:24 | General Progress Note ---
Assessment/Plan Problem List: (1) Dysphagia ICD Codes: R13.10 - Dysphagia, unspecified SNOMED: 67350107, 856113138 (2) Anemia ICD Codes: D64.9 - Anemia, unspecified SNOMED: 954815859 (3) Hypothyroidism ICD Codes: E03.9 - Hypothyroidism, unspecified SNOMED: 87062716 (4) Thrombus ICD Codes: I82.90 - Acute embolism and thrombosis of unspecified vein SNOMED: 52616836, 61621461, 205092285, 577856632 (5) A-fib ICD Codes: I48.91 - Unspecified atrial fibrillation SNOMED: 90448656 Status: progressing, unchanged Assessment/Plan: intubated in ICU NGTF on hold fu pulm fu labs poor prognosis Subjective ROS Limited/Unobtainable: No Allergies: Coded Allergies: No Known Allergies (Unverified , 05/18/19) Objective Last 24 Hour Vital Signs Date Time Temp Pulse Resp B/P (MAP) Pulse Ox O2 Delivery O2 Flow Rate FiO2 05/28/19 10:15 103/43 05/28/19 09:16 67 19 60 05/28/19 08:30 81 17 103/43 (63) 95 05/28/19 08:00 106/35 05/28/19 08:00 99.3 73 16 106/35 (58) 96 05/28/19 07:30 73 14 99/36 (57) 97 05/28/19 07:15 68 18 60 05/28/19 07:00 99/79 05/28/19 07:00 72 18 99/79 (86) 95 05/28/19 06:30 80 18 118/42 (67) 95 05/28/19 06:00 81 18 120/42 (68) 95 05/28/19 06:00 116/41 05/28/19 05:30 75 16 108/46 (66) 95 05/28/19 05:17 60 17 60 05/28/19 05:00 69 12 98/37 (57) 97 05/28/19 05:00 104/34 05/28/19 04:30 69 13 109/36 (60) 100 05/28/19 04:00 99.2 71 11 92/36 (54) 100 05/28/19 04:00 Mechanical Ventilator 05/28/19 04:00 71 05/28/19 04:00 76/35 05/28/19 03:30 70 6 90/34 (52) 100 05/28/19 03:20 58 16 60 05/28/19 03:00 66 14 97/30 (52) 100 05/28/19 03:00 92/33 05/28/19 02:48 108/45 05/28/19 02:30 65 14 85/34 (51) 100 05/28/19 02:00 75 13 91/31 (51) 100 05/28/19 02:00 99/30 05/28/19 01:50 76 18 75 05/28/19 01:30 71 14 100/32 (54) 100 05/28/19 01:00 73 13 88/40 (56) 100 05/28/19 01:00 85/37 05/28/19 00:45 71 11 90/33 (52) 100 05/28/19 00:30 71 12 91/32 (51) 100 05/28/19 00:15 75 6 87/38 (54) 100 05/28/19 00:00 99.0 72 10 88/34 (52) 100 05/28/19 00:00 Mechanical Ventilator 05/28/19 00:00 73 05/28/19 00:00 87/38 05/27/19 23:45 84 19 108/32 (57) 05/27/19 23:30 74 6 93/34 (53) 100 05/27/19 23:30 68 18 75 05/27/19 23:00 91/37 05/27/19 23:00 91/37 (55) 05/27/19 22:30 79 19 93/37 (55) 100 05/27/19 22:00 75 13 103/43 (63) 100 05/27/19 22:00 103/43 05/27/19 21:30 82 16 99/42 (61) 99 05/27/19 21:25 75 19 75 05/27/19 21:00 84 12 105/38 (60) 99 05/27/19 21:00 105/38 05/27/19 20:30 85 12 115/40 (65) 98 05/27/19 20:00 99.6 81 13 110/40 (63) 98 05/27/19 20:00 84 05/27/19 20:00 Mechanical Ventilator 05/27/19 20:00 110/40 05/27/19 19:30 79 10 115/41 (65) 98 05/27/19 19:19 88 18 75 05/27/19 19:00 118/41 05/27/19 19:00 90 22 118/47 (70) 96 05/27/19 18:30 91 18 125/40 (68) 97 05/27/19 18:00 91 11 120/40 (66) 97 05/27/19 18:00 120/40 05/27/19 17:30 79 11 120/43 (68) 98 05/27/19 17:17 71 21 75 05/27/19 17:00 86 15 117/45 (69) 97 05/27/19 17:00 117/45 05/27/19 16:30 80 18 115/43 (67) 97 05/27/19 16:15 122 15 112/49 (70) 97 05/27/19 16:00 98.0 87 15 111/52 (71) 96 05/27/19 16:00 Mechanical Ventilator 05/27/19 16:00 111/52 05/27/19 16:00 90 05/27/19 15:45 87 17 111/45 (67) 97 05/27/19 15:31 123/48 05/27/19 15:30 85 24 115/47 (69) 97 05/27/19 15:15 85 16 123/48 (73) 97 05/27/19 15:05 83 20 75 05/27/19 15:00 85 13 115/44 (67) 97 05/27/19 15:00 115/44 05/27/19 14:45 84 9 105/46 (65) 97 05/27/19 14:30 85 10 115/39 (64) 97 05/27/19 14:15 86 13 115/37 (63) 97 05/27/19 14:00 113/44 05/27/19 14:00 90 10 113/44 (67) 96 05/27/19 13:45 87 15 111/46 (67) 90 05/27/19 13:30 86 16 116/39 (64) 91 05/27/19 13:15 82 19 98/43 (61) 92 12/31/19 13:00 111/47 05/27/19 13:00 81 20 111/47 (68) 94 05/27/19 12:54 88 21 80 05/27/19 12:45 85 18 118/40 (66) 93 05/27/19 12:30 108/44 05/27/19 12:30 80 23 108/44 (65) 93 05/27/19 12:15 81 16 120/44 (69) 93 05/27/19 12:00 Mechanical Ventilator 05/27/19 12:00 123/43 05/27/19 12:00 80 05/27/19 12:00 98.9 86 21 123/43 (69) 93 05/27/19 11:30 83 20 128/45 (72) 93 05/27/19 11:00 112/42 05/27/19 11:00 80 21 112/42 (65) 95 05/27/19 10:53 77 20 80 05/27/19 10:30 74 16 111/43 (65) 95 Intake and Output 05/27/19 05/28/19 19:00 07:00 Intake Total 1097.45 ml 1342.5 ml Output Total 442 ml 380 ml Balance 655.45 ml 962.5 ml IV Total 997.45 ml 1342.5 ml Tube Feeding 0 ml 0 ml Other 100 ml Output Urine Total 442 ml 380 ml Laboratory Tests 05/28/19 04:30: White Blood Count 9.9, Red Blood Count 2.54L, Hemoglobin 7.6L, Hematocrit 23.8L , Mean Corpuscular Volume 94, Mean Corpuscular Hemoglobin 29.9, Mean Corpuscular Hemoglobin Concent 31.9L, Red Cell Distribution Width 16.0H, Platelet Count 179, Mean Platelet Volume 5.3L, Neutrophils (%) (Auto) , Lymphocytes (%) (Auto) , Monocytes (%) (Auto) , Eosinophils (%) (Auto) , Basophils (%) (Auto) , Differential Total Cells Counted 100, Neutrophils % ( Manual) 91H, Lymphocytes % (Manual) 5L, Monocytes % (Manual) 4, Eosinophils % ( Manual) 0, Basophils % (Manual) 0, Band Neutrophils 0, Platelet Estimate Adequate, Platelet Morphology Normal, Anisocytosis 1+, Sodium Level 138, Potassium Level 4.4, Chloride Level 108H, Carbon Dioxide Level 22, Anion Gap 8, Blood Urea Nitrogen 67H, Creatinine 3.5H, Estimat Glomerular Filtration Rate , Glucose Level 106, Uric Acid 5.9, Calcium Level 7.2L, Phosphorus Level 4.7, Magnesium Level 1.9, Total Bilirubin 0.4, Gamma Glutamyl Transpeptidase 30, Aspartate Amino Transf (AST/SGOT) 33, Alanine Aminotransferase (ALT/SGPT) 25, Alkaline Phosphatase 64, Ammonia 20, Total Creatine Kinase 109, Troponin I 0.205H, C-Reactive Protein, Quantitative 20.9H, Pro-B-Type Natriuretic Peptide 7475H, Total Protein 4.9L, Albumin 1.8L, Globulin 3.1, Albumin/Globulin Ratio 0.6L, Random Vancomycin Level 29.9 05/28/19 09:00: Vancomycin Level Trough [Pending] Height (Feet): 5 Height (Inches): 7.00 Weight (Pounds): 180 General Appearance: lethargic EENT: normal ENT inspection Neck: normal alignment Cardiovascular: tachycardia Respiratory/Chest: decreased breath sounds Abdomen: normal bowel sounds, non tender, soft Valentino Lino MD May 28, 2019 10:24
--- NOTE | 2019-05-28 10:43 | General Progress Note ---
Assessment/Plan Problem List: (1) SOB (shortness of breath) ICD Codes: R06.02 - Shortness of breath SNOMED: 352623322 (2) Cellulitis ICD Codes: L03.90 - Cellulitis, unspecified SNOMED: 524167622 (3) Cellulitis of upper extremity ICD Codes: L03.119 - Cellulitis of unspecified part of limb SNOMED: 868693495 Qualifiers: Qualified Codes: L03.113 - Cellulitis of right upper limb (4) Renal insufficiency ICD Codes: N28.9 - Disorder of kidney and ureter, unspecified SNOMED: 597308197, 068185310 (5) Renal failure (ARF), acute on chronic ICD Codes: N17.9 - Acute kidney failure, unspecified; N18.9 - Chronic kidney disease, unspecified SNOMED: 437588676 (6) Anemia ICD Codes: D64.9 - Anemia, unspecified SNOMED: 813085224 (7) Hypothyroidism ICD Codes: E03.9 - Hypothyroidism, unspecified SNOMED: 63855354 (8) UTI (urinary tract infection) ICD Codes: N39.0 - Urinary tract infection, site not specified SNOMED: 97954065 Status: progressing, unchanged Assessment/Plan: getting worse transferred to icu critical condition on high volume of oxygen intubated chf exac pna lethargic reviewed chart and lab Subjective ROS Limited/Unobtainable: Yes Allergies: Coded Allergies: No Known Allergies (Unverified , 05/18/19) Objective Last 24 Hour Vital Signs Date Time Temp Pulse Resp B/P (MAP) Pulse Ox O2 Delivery O2 Flow Rate FiO2 05/28/19 10:15 103/43 05/28/19 09:16 67 19 60 05/28/19 08:30 81 17 103/43 (63) 95 05/28/19 08:00 106/35 05/28/19 08:00 99.3 73 16 106/35 (58) 96 05/28/19 07:30 73 14 99/36 (57) 97 05/28/19 07:15 68 18 60 05/28/19 07:00 99/79 05/28/19 07:00 72 18 99/79 (86) 95 05/28/19 06:30 80 18 118/42 (67) 95 05/28/19 06:00 81 18 120/42 (68) 95 05/28/19 06:00 116/41 05/28/19 05:30 75 16 108/46 (66) 95 05/28/19 05:17 60 17 60 05/28/19 05:00 69 12 98/37 (57) 97 05/28/19 05:00 104/34 05/28/19 04:30 69 13 109/36 (60) 100 05/28/19 04:00 99.2 71 11 92/36 (54) 100 05/28/19 04:00 Mechanical Ventilator 05/28/19 04:00 71 05/28/19 04:00 76/35 05/28/19 03:30 70 6 90/34 (52) 100 05/28/19 03:20 58 16 60 05/28/19 03:00 66 14 97/30 (52) 100 05/28/19 03:00 92/33 05/28/19 02:48 108/45 05/28/19 02:30 65 14 85/34 (51) 100 05/28/19 02:00 75 13 91/31 (51) 100 05/28/19 02:00 99/30 05/28/19 01:50 76 18 75 05/28/19 01:30 71 14 100/32 (54) 100 05/28/19 01:00 73 13 88/40 (56) 100 05/28/19 01:00 85/37 05/28/19 00:45 71 11 90/33 (52) 100 05/28/19 00:30 71 12 91/32 (51) 100 05/28/19 00:15 75 6 87/38 (54) 100 05/28/19 00:00 99.0 72 10 88/34 (52) 100 05/28/19 00:00 Mechanical Ventilator 05/28/19 00:00 73 05/28/19 00:00 87/38 05/27/19 23:45 84 19 108/32 (57) 05/27/19 23:30 74 6 93/34 (53) 100 05/27/19 23:30 68 18 75 05/27/19 23:00 91/37 05/27/19 23:00 91/37 (55) 05/27/19 22:30 79 19 93/37 (55) 100 05/27/19 22:00 75 13 103/43 (63) 100 05/27/19 22:00 103/43 05/27/19 21:30 82 16 99/42 (61) 99 05/27/19 21:25 75 19 75 05/27/19 21:00 84 12 105/38 (60) 99 05/27/19 21:00 105/38 05/27/19 20:30 85 12 115/40 (65) 98 05/27/19 20:00 99.6 81 13 110/40 (63) 98 05/27/19 20:00 84 05/27/19 20:00 Mechanical Ventilator 05/27/19 20:00 110/40 05/27/19 19:30 79 10 115/41 (65) 98 05/27/19 19:19 88 18 75 05/27/19 19:00 118/41 05/27/19 19:00 90 22 118/47 (70) 96 05/27/19 18:30 91 18 125/40 (68) 97 05/27/19 18:00 91 11 120/40 (66) 97 05/27/19 18:00 120/40 05/27/19 17:30 79 11 120/43 (68) 98 05/27/19 17:17 71 21 75 05/27/19 17:00 86 15 117/45 (69) 97 05/27/19 17:00 117/45 05/27/19 16:30 80 18 115/43 (67) 97 05/27/19 16:15 122 15 112/49 (70) 97 05/27/19 16:00 98.0 87 15 111/52 (71) 96 05/27/19 16:00 Mechanical Ventilator 05/27/19 16:00 111/52 05/27/19 16:00 90 05/27/19 15:45 87 17 111/45 (67) 97 05/27/19 15:31 123/48 05/27/19 15:30 85 24 115/47 (69) 97 05/27/19 15:15 85 16 123/48 (73) 97 05/27/19 15:05 83 20 75 05/27/19 15:00 85 13 115/44 (67) 97 05/27/19 15:00 115/44 05/27/19 14:45 84 9 105/46 (65) 97 05/27/19 14:30 85 10 115/39 (64) 97 05/27/19 14:15 86 13 115/37 (63) 97 05/27/19 14:00 113/44 05/27/19 14:00 90 10 113/44 (67) 96 05/27/19 13:45 87 15 111/46 (67) 90 05/27/19 13:30 86 16 116/39 (64) 91 05/27/19 13:15 82 19 98/43 (61) 92 05/27/19 13:00 111/47 05/27/19 13:00 81 20 111/47 (68) 94 05/27/19 12:54 88 21 80 05/27/19 12:45 85 18 118/40 (66) 93 05/27/19 12:30 108/44 05/27/19 12:30 80 23 108/44 (65) 93 05/27/19 12:15 81 16 120/44 (69) 93 05/27/19 12:00 Mechanical Ventilator 05/27/19 12:00 123/43 05/27/19 12:00 80 05/27/19 12:00 98.9 86 21 123/43 (69) 93 05/27/19 11:30 83 20 128/45 (72) 93 05/27/19 11:00 112/42 05/27/19 11:00 80 21 112/42 (65) 95 05/27/19 10:53 77 20 80 Intake and Output 05/27/19 05/28/19 19:00 07:00 Intake Total 1097.45 ml 1342.5 ml Output Total 442 ml 380 ml Balance 655.45 ml 962.5 ml IV Total 997.45 ml 1342.5 ml Tube Feeding 0 ml 0 ml Other 100 ml Output Urine Total 442 ml 380 ml Laboratory Tests 05/28/19 04:30: White Blood Count 9.9, Red Blood Count 2.54L, Hemoglobin 7.6L, Hematocrit 23.8L , Mean Corpuscular Volume 94, Mean Corpuscular Hemoglobin 29.9, Mean Corpuscular Hemoglobin Concent 31.9L, Red Cell Distribution Width 16.0H, Platelet Count 179, Mean Platelet Volume 5.3L, Neutrophils (%) (Auto) , Lymphocytes (%) (Auto) , Monocytes (%) (Auto) , Eosinophils (%) (Auto) , Basophils (%) (Auto) , Differential Total Cells Counted 100, Neutrophils % ( Manual) 91H, Lymphocytes % (Manual) 5L, Monocytes % (Manual) 4, Eosinophils % ( Manual) 0, Basophils % (Manual) 0, Band Neutrophils 0, Platelet Estimate Adequate, Platelet Morphology Normal, Anisocytosis 1+, Sodium Level 138, Potassium Level 4.4, Chloride Level 108H, Carbon Dioxide Level 22, Anion Gap 8, Blood Urea Nitrogen 67H, Creatinine 3.5H, Estimat Glomerular Filtration Rate , Glucose Level 106, Uric Acid 5.9, Calcium Level 7.2L, Phosphorus Level 4.7, Magnesium Level 1.9, Total Bilirubin 0.4, Gamma Glutamyl Transpeptidase 30, Aspartate Amino Transf (AST/SGOT) 33, Alanine Aminotransferase (ALT/SGPT) 25, Alkaline Phosphatase 64, Ammonia 20, Total Creatine Kinase 109, Troponin I 0.205H, C-Reactive Protein, Quantitative 20.9H, Pro-B-Type Natriuretic Peptide 7475H, Total Protein 4.9L, Albumin 1.8L, Globulin 3.1, Albumin/Globulin Ratio 0.6L, Random Vancomycin Level 29.9 05/28/19 09:00: Vancomycin Level Trough [Pending] Height (Feet): 5 Height (Inches): 7.00 Weight (Pounds): 180 General Appearance: lethargic Cardiovascular: normal rate Respiratory/Chest: rhonchi - bilaterally Joslyn Wiggins MD May 28, 2019 10:43
[2019-05-28] MEDS: Piperacillin/Tazobactam 3.375 GM in NS 110 ML IVPB SCH ×2 (11:54→23:46)
--- NOTE | 2019-05-28 12:15 | Critical Care Progress Note ---
Assessment/Plan Assessment/Plan IMPRESSION AND PLAN: 1. Pneumonia. bilateral 2. Cellulitis. 3. History of COPD. 4. Hypertension. 5. Afib with RVR; rate controlled 6. Respiratory failure, acute 7. Hypoxemia 8. Chronic renal failure PLAN vent support consider wean monitor oxygen needs monitor imaging still with significant infiltrates support as able feeds off load nutrition medications/laboratory data/nursing notes/ICU care reviewed in detail note reviewed and edited care discussed with RN and RT ICU time spent 40 minutes Critical Care - Subjective Interval Events: care noted on vent on o2 currently bradycardic Condition: critical EKG Rhythm: Sinus Rhythm Residuals: minimal Tube Feeding Tolerated: yes I&O: Intake and Output 05/27/19 05/28/19 19:00 07:00 Intake Total 1097.45 ml 1342.5 ml Output Total 442 ml 380 ml Balance 655.45 ml 962.5 ml IV Total 997.45 ml 1342.5 ml Tube Feeding 0 ml 0 ml Other 100 ml Output Urine Total 442 ml 380 ml Critical Care - Objective CXR: worsening infiltrates Last 24 Hour Vital Signs Date Time Temp Pulse Resp B/P (MAP) Pulse Ox O2 Delivery O2 Flow Rate FiO2 05/28/19 11:30 77 18 126/43 (70) 93 05/28/19 11:30 75 20 60 05/28/19 11:00 130/43 05/28/19 11:00 85 20 130/43 (72) 94 05/28/19 10:30 88 22 124/70 (88) 92 05/28/19 10:15 103/43 05/28/19 10:00 112/52 05/28/19 10:00 158 20 112/52 (72) 94 05/28/19 09:30 71 16 103/33 (56) 95 05/28/19 09:16 67 19 60 05/28/19 09:00 68 19 114/42 (66) 93 05/28/19 09:00 114/42 05/28/19 08:30 81 17 103/43 (63) 95 05/28/19 08:00 106/35 05/28/19 08:00 Mechanical Ventilator 05/28/19 08:00 71 05/28/19 08:00 99.3 73 16 106/35 (58) 96 05/28/19 07:30 73 14 99/36 (57) 97 05/28/19 07:15 68 18 60 05/28/19 07:00 99/79 05/28/19 07:00 72 18 99/79 (86) 95 05/28/19 06:30 80 18 118/42 (67) 95 05/28/19 06:00 81 18 120/42 (68) 95 05/28/19 06:00 116/41 05/28/19 05:30 75 16 108/46 (66) 95 05/28/19 05:17 60 17 60 05/28/19 05:00 69 12 98/37 (57) 97 05/28/19 05:00 104/34 05/28/19 04:30 69 13 109/36 (60) 100 05/28/19 04:00 99.2 71 11 92/36 (54) 100 05/28/19 04:00 Mechanical Ventilator 05/28/19 04:00 71 05/28/19 04:00 76/35 05/28/19 03:30 70 6 90/34 (52) 100 05/28/19 03:20 58 16 60 05/28/19 03:00 66 14 97/30 (52) 100 05/28/19 03:00 92/33 05/28/19 02:48 108/45 05/28/19 02:30 65 14 85/34 (51) 100 05/28/19 02:00 75 13 91/31 (51) 100 05/28/19 02:00 99/30 05/28/19 01:50 76 18 75 05/28/19 01:30 71 14 100/32 (54) 100 05/28/19 01:00 73 13 88/40 (56) 100 05/28/19 01:00 85/37 05/28/19 00:45 71 11 90/33 (52) 100 05/28/19 00:30 71 12 91/32 (51) 100 05/28/19 00:15 75 6 87/38 (54) 100 05/28/19 00:00 99.0 72 10 88/34 (52) 100 05/28/19 00:00 Mechanical Ventilator 05/28/19 00:00 73 05/28/19 00:00 87/38 05/27/19 23:45 84 19 108/32 (57) 05/27/19 23:30 74 6 93/34 (53) 100 05/27/19 23:30 68 18 75 05/27/19 23:00 91/37 05/27/19 23:00 91/37 (55) 05/27/19 22:30 79 19 93/37 (55) 100 05/27/19 22:00 75 13 103/43 (63) 100 05/27/19 22:00 103/43 05/27/19 21:30 82 16 99/42 (61) 99 05/27/19 21:25 75 19 75 05/27/19 21:00 84 12 105/38 (60) 99 05/27/19 21:00 105/38 05/27/19 20:30 85 12 115/40 (65) 98 05/27/19 20:00 99.6 81 13 110/40 (63) 98 05/27/19 20:00 84 05/27/19 20:00 Mechanical Ventilator 05/27/19 20:00 110/40 05/27/19 19:30 79 10 115/41 (65) 98 05/27/19 19:19 88 18 75 05/27/19 19:00 118/41 05/27/19 19:00 90 22 118/47 (70) 96 05/27/19 18:30 91 18 125/40 (68) 97 05/27/19 18:00 91 11 120/40 (66) 97 05/27/19 18:00 120/40 05/27/19 17:30 79 11 120/43 (68) 98 05/27/19 17:17 71 21 75 05/27/19 17:00 86 15 117/45 (69) 97 05/27/19 17:00 117/45 05/27/19 16:30 80 18 115/43 (67) 97 05/27/19 16:15 122 15 112/49 (70) 97 05/27/19 16:00 98.0 87 15 111/52 (71) 96 05/27/19 16:00 Mechanical Ventilator 05/27/19 16:00 111/52 05/27/19 16:00 90 05/27/19 15:45 87 17 111/45 (67) 97 05/27/19 15:31 123/48 05/27/19 15:30 85 24 115/47 (69) 97 05/27/19 15:15 85 16 123/48 (73) 97 05/27/19 15:05 83 20 75 05/27/19 15:00 85 13 115/44 (67) 97 05/27/19 15:00 115/44 05/27/19 14:45 84 9 105/46 (65) 97 05/27/19 14:30 85 10 115/39 (64) 97 05/27/19 14:15 86 13 115/37 (63) 97 05/27/19 14:00 113/44 05/27/19 14:00 90 10 113/44 (67) 96 05/27/19 13:45 87 15 111/46 (67) 90 05/27/19 13:30 86 16 116/39 (64) 91 05/27/19 13:15 82 19 98/43 (61) 92 05/27/19 13:00 111/47 05/27/19 13:00 81 20 111/47 (68) 94 05/27/19 12:54 88 21 80 05/27/19 12:45 85 18 118/40 (66) 93 05/27/19 12:30 108/44 05/27/19 12:30 80 23 108/44 (65) 93 05/27/19 12:15 81 16 120/44 (69) 93 Labs: Labs Test 05/26/19 11:35 05/26/19 20:56 05/27/19 00:21 05/27/19 04:15 Sodium Level 149 MMOL/L (136-145) 143 MMOL/L (136-145) Potassium Level 5.4 MMOL/L (3.5-5.1) 5.1 MMOL/L (3.5-5.1) Chloride Level 116 MMOL/L (98-107) 113 MMOL/L (98-107) Carbon Dioxide Level 26 MMOL/L (21-32) 25 MMOL/L (21-32) Anion Gap 7 mmol/L (5-15) 5 mmol/L (5-15) Blood Urea Nitrogen 56 mg/dL (7-18) 59 mg/dL (7-18) Creatinine 2.5 MG/DL (0.55-1.30) 3.1 MG/DL (0.55-1.30) Estimat Glomerular Filtration Rate mL/min (>60) mL/min (>60) Glucose Level 154 MG/DL (74-106) 141 MG/DL (74-106) Calcium Level 8.0 MG/DL (8.5-10.1) 7.8 MG/DL (8.5-10.1) Arterial Blood pH 7.069 (7.350-7.450) 7.174 (7.350-7.450) Arterial Blood Partial Pressure CO2 81.1 mmHg (35.0-45.0) 60.2 mmHg (35.0-45.0) Arterial Blood Partial Pressure O2 56.9 mmHg (75.0-100.0) 90.6 mmHg (75.0-100.0) Arterial Blood HCO3 22.9 mmol/L (22.0-26.0) 21.7 mmol/L (22.0-26.0) Arterial Blood Oxygen Saturation 87.6 % (95-100) 96.2 % (95-100) Arterial Blood Base Excess -7.7 (-2-2) -6.8 (-2-2) Koby Test Positive Positive White Blood Count 9.5 K/UL (4.8-10.8) Red Blood Count 2.65 M/UL (4.70-6.10) Hemoglobin 8.1 G/DL (14.2-18.0) Hematocrit 25.3 % (42.0-52.0) Mean Corpuscular Volume 95 FL (80-99) Mean Corpuscular Hemoglobin 30.4 PG (27.0-31.0) Mean Corpuscular Hemoglobin Concent 31.9 G/DL (32.0-36.0) Red Cell Distribution Width 16.3 % (11.6-14.8) Platelet Count 226 K/UL (150-450) Mean Platelet Volume 4.6 FL (6.5-10.1) Neutrophils (%) (Auto) % (45.0-75.0) Lymphocytes (%) (Auto) % (20.0-45.0) Monocytes (%) (Auto) % (1.0-10.0) Eosinophils (%) (Auto) % (0.0-3.0) Basophils (%) (Auto) % (0.0-2.0) Differential Total Cells Counted 100 Neutrophils % (Manual) 89 % (45-75) Lymphocytes % (Manual) 5 % (20-45) Monocytes % (Manual) 5 % (1-10) Eosinophils % (Manual) 1 % (0-3) Basophils % (Manual) 0 % (0-2) Band Neutrophils 0 % (0-8) Platelet Estimate Adequate Platelet Morphology Normal Hypochromasia 2+ Anisocytosis 1+ Uric Acid 6.1 MG/DL (2.6-7.2) Phosphorus Level 5.2 MG/DL (2.5-4.9) Magnesium Level 2.0 MG/DL (1.8-2.4) Total Bilirubin 0.3 MG/DL (0.2-1.0) Aspartate Amino Transf (AST/SGOT) 30 U/L (15-37) Alanine Aminotransferase (ALT/SGPT) 23 U/L (12-78) Alkaline Phosphatase 64 U/L (46-116) C-Reactive Protein, Quantitative 4.3 mg/dL (0.00-0.90) Pro-B-Type Natriuretic Peptide 5778 pg/mL (0-125) Total Protein 4.7 G/DL (6.4-8.2) Albumin 1.5 G/DL (3.4-5.0) Globulin 3.2 g/dL Albumin/Globulin Ratio 0.5 (1.0-2.7) Test 05/27/19 07:27 05/28/19 04:30 05/28/19 09:00 Arterial Blood pH 7.250 (7.350-7.450) Arterial Blood Partial Pressure CO2 60.5 mmHg (35.0-45.0) Arterial Blood Partial Pressure O2 69.0 mmHg (75.0-100.0) Arterial Blood HCO3 25.9 mmol/L (22.0-26.0) Arterial Blood Oxygen Saturation 93.7 % (95-100) Arterial Blood Base Excess -1.7 (-2-2) Koby Test Positive White Blood Count 9.9 K/UL (4.8-10.8) Red Blood Count 2.54 M/UL (4.70-6.10) Hemoglobin 7.6 G/DL (14.2-18.0) Hematocrit 23.8 % (42.0-52.0) Mean Corpuscular Volume 94 FL (80-99) Mean Corpuscular Hemoglobin 29.9 PG (27.0-31.0) Mean Corpuscular Hemoglobin Concent 31.9 G/DL (32.0-36.0) Red Cell Distribution Width 16.0 % (11.6-14.8) Platelet Count 179 K/UL (150-450) Mean Platelet Volume 5.3 FL (6.5-10.1) Neutrophils (%) (Auto) % (45.0-75.0) Lymphocytes (%) (Auto) % (20.0-45.0) Monocytes (%) (Auto) % (1.0-10.0) Eosinophils (%) (Auto) % (0.0-3.0) Basophils (%) (Auto) % (0.0-2.0) Differential Total Cells Counted 100 Neutrophils % (Manual) 91 % (45-75) Lymphocytes % (Manual) 5 % (20-45) Monocytes % (Manual) 4 % (1-10) Eosinophils % (Manual) 0 % (0-3) Basophils % (Manual) 0 % (0-2) Band Neutrophils 0 % (0-8) Platelet Estimate Adequate Platelet Morphology Normal Anisocytosis 1+ Sodium Level 138 MMOL/L (136-145) Potassium Level 4.4 MMOL/L (3.5-5.1) Chloride Level 108 MMOL/L (98-107) Carbon Dioxide Level 22 MMOL/L (21-32) Anion Gap 8 mmol/L (5-15) Blood Urea Nitrogen 67 mg/dL (7-18) Creatinine 3.5 MG/DL (0.55-1.30) Estimat Glomerular Filtration Rate mL/min (>60) Glucose Level 106 MG/DL (74-106) Uric Acid 5.9 MG/DL (2.6-7.2) Calcium Level 7.2 MG/DL (8.5-10.1) Phosphorus Level 4.7 MG/DL (2.5-4.9) Magnesium Level 1.9 MG/DL (1.8-2.4) Total Bilirubin 0.4 MG/DL (0.2-1.0) Gamma Glutamyl Transpeptidase 30 U/L (5-85) Aspartate Amino Transf (AST/SGOT) 33 U/L (15-37) Alanine Aminotransferase (ALT/SGPT) 25 U/L (12-78) Alkaline Phosphatase 64 U/L (46-116) Ammonia 20 umol/L (11-32) Total Creatine Kinase 109 U/L (26-308) Troponin I 0.205 ng/mL (0.000-0.056) C-Reactive Protein, Quantitative 20.9 mg/dL (0.00-0.90) Pro-B-Type Natriuretic Peptide 7475 pg/mL (0-125) Total Protein 4.9 G/DL (6.4-8.2) Albumin 1.8 G/DL (3.4-5.0) Globulin 3.1 g/dL Albumin/Globulin Ratio 0.6 (1.0-2.7) Random Vancomycin Level 29.9 ug/mL Vancomycin Level Trough 31.4 ug/mL (5.0-12.0) Objective: WDWN NAD orally intubated reduced breath sounds bilaterally with some rhonchi [id number] without MRG NABS nontender no HSM no CC mild edema nonfocal Micro: Microbiology Date/Time Source Procedure Growth Status 05/27/19 17:00 Sputum Gram Stain - Final Resulted 05/27/19 17:00 Sputum Sputum Culture - Preliminary NO GROWTH Resulted Accucheck: 130 Korey Mtz MD May 28, 2019 12:15
--- NOTE | 2019-05-28 13:16 | Hematology/Onc Progress Note ---
Assessment/Plan Assessment/Plan # Anemia of chronic disease due to underlying chronic medical issues, multifactorial v Gi bleed --> Anemia workup has been reviewed, rule out gi bleed --> No evidence of hemolysis is noted, peripheral smear has been reviewed. --> Hgb goal >7. Transfuse prn. --> Epogen or iron at this time is not particularly indicated --> Medications have been reviewed --> low threshold for gi evaluation in case has occult + --> hgb trend: 9.3-->9.7-->8.1-->7.6 --> transf 05/28/ with 1 unit prbc --> transfusion is a emergency, no family, no poa, is okay to transfuse # Right upper arm extremity axillary vein dvt --> agree to continue eliquis --> as per cards low dose eliquis --> continue for total of minimum of 3 months --> rescan arm in 3 mo # Cellulitis of upper extremity, likely picc line infection --> as per id on ax --> picc off --> levoflox/vanc-->zosyn/vanc # Renal insufficiency --> per Dr. Mera # Pneumonia --> abx per id # Dehydration. --> goal of euvolemia # Paroxysmal Atrial fibrillation with rapid ventricular response was on amiodarone gtt, now in sinus rhythm. --> per cards On PO amiodarone 200 bid, Lopressor 25 bid and Eliquis 2.5 bid # Dysphagia with ng tube # Dvt ppx eliquis The timing of this note does not necessarily reflect the time of the patient was seen. Greatly appreciate consultation. Subjective Allergies: Coded Allergies: No Known Allergies (Unverified , 05/18/19) Subjective 05/24: awake and alert, v mask, labs reviewed, apixaban 05/25: as per gi, ngt and eliquis tolerated 05/26: pending clearance but still with ng and nonrebreather 05/27: hypoxic yesterday, deteriorated, coded, now intubated, icu, labs noted 05/28: icu, levophed gtt, hgb 7.6, repeat cbc Objective Objective Current Medications Medications (Trade) Dose Ordered Sig/Phillip Route PRN Reason Start Time Stop Time Status Last Admin Dose Admin Acetaminophen (Tylenol) 500 mg Q4H PRN GT Mild Pain/Temp > 100.5 05/27/19 07:45 06/19/19 20:29 05/27/19 08:34 Amiodarone HCl (Cordarone) 200 mg DAILY ORAL 05/26/19 09:00 06/21/19 20:59 05/28/19 08:48 Apixaban (Eliquis) 2.5 mg BID ORAL 05/26/19 09:00 06/25/19 08:59 05/28/19 08:48 Chlorhexidine Gluconate (Reina-Hex 2%) 1 applic DAILY@2000 TOPIC 05/27/19 20:00 06/26/19 19:59 05/27/19 20:03 Docusate Sodium (Colace) 100 mg TID NG 05/27/19 09:00 06/20/19 08:59 05/28/19 08:47 Norepinephrine Bitartrate 4 mg/ Dextrose 250 ml @ 0 mls/hr Q24H IV 05/27/19 00:30 06/26/19 00:29 05/28/19 10:15 Pantoprazole (Protonix) 40 mg EVERY 12 HOURS IVP 05/27/19 10:45 06/26/19 10:44 05/28/19 08:48 Piperacillin Sod/ Tazobactam Sod 3.375 gm/Sodium Chloride 110 ml @ 27.5 mls/hr Q12H IVPB 05/27/19 11:30 06/03/19 11:29 05/28/19 11:54 Sodium Chloride 1,000 ml @ 75 mls/hr [id number] IV 05/27/19 10:45 06/26/19 10:44 05/28/19 00:49 Vancomycin HCl (Vanco rx to dose) 1 ea DAILY PRN MISC Per rx protocol 05/20/19 20:30 06/19/19 20:29 Last 24 Hour Vital Signs Date Time Temp Pulse Resp B/P (MAP) Pulse Ox O2 Delivery O2 Flow Rate FiO2 05/28/19 12:30 83 17 110/41 (64) 95 05/28/19 12:00 120/39 05/28/19 12:00 99.9 89 21 120/39 (66) 93 05/28/19 12:00 88 05/28/19 12:00 Mechanical Ventilator 05/28/19 11:30 77 18 126/43 (70) 93 05/28/19 11:30 75 20 60 05/28/19 11:00 130/43 05/28/19 11:00 85 20 130/43 (72) 94 05/28/19 10:30 88 22 124/70 (88) 92 05/28/19 10:15 103/43 05/28/19 10:00 112/52 05/28/19 10:00 158 20 112/52 (72) 94 05/28/19 09:30 71 16 103/33 (56) 95 05/28/19 09:16 67 19 60 05/28/19 09:00 68 19 114/42 (66) 93 05/28/19 09:00 114/42 05/28/19 08:30 81 17 103/43 (63) 95 05/28/19 08:00 106/35 05/28/19 08:00 Mechanical Ventilator 05/28/19 08:00 71 05/28/19 08:00 99.3 73 16 106/35 (58) 96 05/28/19 07:30 73 14 99/36 (57) 97 05/28/19 07:15 68 18 60 05/28/19 07:00 99/79 05/28/19 07:00 72 18 99/79 (86) 95 05/28/19 06:30 80 18 118/42 (67) 95 05/28/19 06:00 81 18 120/42 (68) 95 05/28/19 06:00 116/41 05/28/19 05:30 75 16 108/46 (66) 95 05/28/19 05:17 60 17 60 05/28/19 05:00 69 12 98/37 (57) 97 05/28/19 05:00 104/34 05/28/19 04:30 69 13 109/36 (60) 100 05/28/19 04:00 99.2 71 11 92/36 (54) 100 05/28/19 04:00 Mechanical Ventilator 05/28/19 04:00 71 05/28/19 04:00 76/35 05/28/19 03:30 70 6 90/34 (52) 100 05/28/19 03:20 58 16 60 05/28/19 03:00 66 14 97/30 (52) 100 05/28/19 03:00 92/33 05/28/19 02:48 108/45 05/28/19 02:30 65 14 85/34 (51) 100 05/28/19 02:00 75 13 91/31 (51) 100 05/28/19 02:00 99/30 05/28/19 01:50 76 18 75 05/28/19 01:30 71 14 100/32 (54) 100 05/28/19 01:00 73 13 88/40 (56) 100 05/28/19 01:00 85/37 05/28/19 00:45 71 11 90/33 (52) 100 05/28/19 00:30 71 12 91/32 (51) 100 05/28/19 00:15 75 6 87/38 (54) 100 05/28/19 00:00 99.0 72 10 88/34 (52) 100 05/28/19 00:00 Mechanical Ventilator 05/28/19 00:00 73 05/28/19 00:00 87/38 05/27/19 23:45 84 19 108/32 (57) 05/27/19 23:30 74 6 93/34 (53) 100 05/27/19 23:30 68 18 75 05/27/19 23:00 91/37 05/27/19 23:00 91/37 (55) 05/27/19 22:30 79 19 93/37 (55) 100 05/27/19 22:00 75 13 103/43 (63) 100 05/27/19 22:00 103/43 05/27/19 21:30 82 16 99/42 (61) 99 05/27/19 21:25 75 19 75 05/27/19 21:00 84 12 105/38 (60) 99 05/27/19 21:00 105/38 05/27/19 20:30 85 12 115/40 (65) 98 05/27/19 20:00 99.6 81 13 110/40 (63) 98 05/27/19 20:00 84 05/27/19 20:00 Mechanical Ventilator 05/27/19 20:00 110/40 05/27/19 19:30 79 10 115/41 (65) 98 05/27/19 19:19 88 18 75 05/27/19 19:00 118/41 05/27/19 19:00 90 22 118/47 (70) 96 05/27/19 18:30 91 18 125/40 (68) 97 05/27/19 18:00 91 11 120/40 (66) 97 05/27/19 18:00 120/40 05/27/19 17:30 79 11 120/43 (68) 98 05/27/19 17:17 71 21 75 05/27/19 17:00 86 15 117/45 (69) 97 05/27/19 17:00 117/45 05/27/19 16:30 80 18 115/43 (67) 97 05/27/19 16:15 122 15 112/49 (70) 97 05/27/19 16:00 98.0 87 15 111/52 (71) 96 05/27/19 16:00 Mechanical Ventilator 05/27/19 16:00 111/52 05/27/19 16:00 90 05/27/19 15:45 87 17 111/45 (67) 97 05/27/19 15:31 123/48 05/27/19 15:30 85 24 115/47 (69) 97 05/27/19 15:15 85 16 123/48 (73) 97 05/27/19 15:05 83 20 75 05/27/19 15:00 85 13 115/44 (67) 97 05/27/19 15:00 115/44 05/27/19 14:45 84 9 105/46 (65) 97 05/27/19 14:30 85 10 115/39 (64) 97 05/27/19 14:15 86 13 115/37 (63) 97 05/27/19 14:00 113/44 05/27/19 14:00 90 10 113/44 (67) 96 05/27/19 13:45 87 15 111/46 (67) 90 05/27/19 13:30 86 16 116/39 (64) 91 05/27/19 13:15 82 19 98/43 (61) 92 05/27/19 13:00 111/47 05/27/19 13:00 81 20 111/47 (68) 94 05/27/19 12:54 88 21 80 05/27/19 12:45 85 18 118/40 (66) 93 05/27/19 12:30 108/44 05/27/19 12:30 80 23 108/44 (65) 93 05/27/19 12:15 81 16 120/44 (69) 93 05/27/19 12:00 Mechanical Ventilator 05/27/19 12:00 123/43 05/27/19 12:00 80 05/27/19 12:00 98.9 86 21 123/43 (69) 93 05/27/19 11:30 83 20 128/45 (72) 93 05/27/19 11:00 112/42 05/27/19 11:00 80 21 112/42 (65) 95 05/27/19 10:53 77 20 80 05/27/19 10:30 74 16 111/43 (65) 95 05/27/19 10:00 75 14 106/42 (63) 95 05/27/19 10:00 106/42 05/27/19 09:30 77 23 106/42 (63) 95 05/27/19 09:15 79 19 112/37 (62) 95 05/27/19 09:04 102.6 05/27/19 09:00 102.6 77 17 111/38 (62) 94 05/27/19 09:00 111/38 05/27/19 08:45 79 20 107/43 (64) 95 05/27/19 08:45 79 18 80 05/27/19 08:34 78 103/37 05/27/19 08:33 78 103/37 05/27/19 08:30 79 15 103/37 (59) 99 05/27/19 08:15 80 15 99/39 (59) 99 05/27/19 08:00 101.3 82 0 102/40 (60) 98 05/27/19 08:00 102/40 05/27/19 08:00 Mechanical Ventilator 05/27/19 08:00 83 05/27/19 07:48 105/37 05/27/19 07:45 84 12 105/37 (59) 97 05/27/19 07:30 81 20 102/40 (60) 98 05/27/19 07:20 80 19 80 05/27/19 07:20 98 Mechanical Ventilator 50.0 98 05/27/19 07:15 82 20 103/35 (57) 97 05/27/19 07:00 96/40 12/31/19 07:00 82 19 96/40 (58) 98 05/27/19 06:45 82 18 100/36 (57) 97 05/27/19 06:30 82 20 89/40 (56) 97 05/27/19 06:00 101/42 05/27/19 06:00 84 18 101/42 (61) 96 05/27/19 05:30 89 21 80 05/27/19 05:30 83 16 101/40 (60) 97 05/27/19 05:15 83 16 97/40 (59) 97 05/27/19 05:00 83 16 97/43 (61) 97 05/27/19 05:00 97/43 05/27/19 04:45 82 13 93/38 (56) 97 05/27/19 04:30 83 16 92/39 (56) 97 05/27/19 04:15 83 16 93/39 (57) 97 05/27/19 04:00 Mechanical Ventilator 05/27/19 04:00 100.0 84 16 101/42 (61) 96 05/27/19 04:00 101/42 05/27/19 03:50 83 05/27/19 03:45 85 17 80 05/27/19 03:30 83 16 100/40 (60) 98 05/27/19 03:00 83 16 80/38 (52) 97 05/27/19 03:00 80/38 05/27/19 02:45 84 19 90/37 (54) 97 05/27/19 02:30 85 20 92/36 (54) 98 05/27/19 02:15 85 21 94/40 (58) 98 05/27/19 02:00 95/35 05/27/19 02:00 86 17 95/35 (55) 98 05/27/19 01:45 88 17 95/37 (56) 97 05/27/19 01:40 88 16 98/35 (56) 98 05/27/19 01:30 90 12 97/33 (54) 97 05/27/19 01:25 89 17 96/40 (58) 97 05/27/19 01:19 92/42 05/27/19 01:15 88 21 92/41 (58) 98 05/27/19 01:05 85 18 80 05/27/19 01:00 90 16 91/37 (55) 100 05/27/19 00:50 94 16 97/47 (64) 100 05/27/19 00:45 91 16 96/41 (59) 100 05/27/19 00:40 93 16 88/47 (61) 100 05/27/19 00:35 91 16 105/57 (73) 100 05/27/19 00:30 91 16 104/62 (76) 100 05/27/19 00:25 92 16 108/47 (67) 100 05/27/19 00:20 92 16 100/53 (69) 100 05/27/19 00:15 92 16 106/64 (78) 100 05/27/19 00:10 95 16 123/57 (79) 100 05/27/19 00:05 95 16 115/59 (77) 100 05/27/19 00:00 97.7 96 16 108/58 (75) 100 05/27/19 00:00 Mechanical Ventilator 05/26/19 23:55 97 16 90/55 (67) 100 05/26/19 23:50 99 20 77/42 (54) 99 05/26/19 23:45 99 10 79/51 (60) 100 05/26/19 23:43 100 12 84/50 (61) 100 05/26/19 23:33 102 05/26/19 23:30 99 16 80 05/26/19 23:30 101 17 105/61 (76) 100 05/26/19 23:15 147 27 192/104 (133) 100 05/26/19 23:13 143 22 184/101 (128) 100 05/26/19 23:05 63 11 41/22 (28) 83 05/26/19 23:02 81 14 50/28 (35) 86 05/26/19 22:38 72 05/26/19 22:30 71 30 87 05/26/19 21:00 76 116/51 05/26/19 21:00 Non-Rebreather 10.0 05/26/19 20:08 91 Non-Rebreather 15.0 100 05/26/19 20:00 97.5 73 28 130/75 (93) 91 05/26/19 20:00 69 05/26/19 16:00 97.7 68 28 115/48 (70) 92 05/26/19 16:00 73 Intake and Output 05/27/19 05/28/19 19:00 07:00 Intake Total 1097.45 ml 1342.5 ml Output Total 442 ml 380 ml Balance 655.45 ml 962.5 ml IV Total 997.45 ml 1342.5 ml Tube Feeding 0 ml 0 ml Other 100 ml Output Urine Total 442 ml 380 ml Labs Test 05/26/19 11:35 05/26/19 20:56 05/27/19 00:21 05/27/19 04:15 Sodium Level 149 MMOL/L (136-145) 143 MMOL/L (136-145) Potassium Level 5.4 MMOL/L (3.5-5.1) 5.1 MMOL/L (3.5-5.1) Chloride Level 116 MMOL/L (98-107) 113 MMOL/L (98-107) Carbon Dioxide Level 26 MMOL/L (21-32) 25 MMOL/L (21-32) Anion Gap 7 mmol/L (5-15) 5 mmol/L (5-15) Blood Urea Nitrogen 56 mg/dL (7-18) 59 mg/dL (7-18) Creatinine 2.5 MG/DL (0.55-1.30) 3.1 MG/DL (0.55-1.30) Estimat Glomerular Filtration Rate mL/min (>60) mL/min (>60) Glucose Level 154 MG/DL (74-106) 141 MG/DL (74-106) Calcium Level 8.0 MG/DL (8.5-10.1) 7.8 MG/DL (8.5-10.1) Arterial Blood pH 7.069 (7.350-7.450) 7.174 (7.350-7.450) Arterial Blood Partial Pressure CO2 81.1 mmHg (35.0-45.0) 60.2 mmHg (35.0-45.0) Arterial Blood Partial Pressure O2 56.9 mmHg (75.0-100.0) 90.6 mmHg (75.0-100.0) Arterial Blood HCO3 22.9 mmol/L (22.0-26.0) 21.7 mmol/L (22.0-26.0) Arterial Blood Oxygen Saturation 87.6 % (95-100) 96.2 % (95-100) Arterial Blood Base Excess -7.7 (-2-2) -6.8 (-2-2) Koby Test Positive Positive White Blood Count 9.5 K/UL (4.8-10.8) Red Blood Count 2.65 M/UL (4.70-6.10) Hemoglobin 8.1 G/DL (14.2-18.0) Hematocrit 25.3 % (42.0-52.0) Mean Corpuscular Volume 95 FL (80-99) Mean Corpuscular Hemoglobin 30.4 PG (27.0-31.0) Mean Corpuscular Hemoglobin Concent 31.9 G/DL (32.0-36.0) Red Cell Distribution Width 16.3 % (11.6-14.8) Platelet Count 226 K/UL (150-450) Mean Platelet Volume 4.6 FL (6.5-10.1) Neutrophils (%) (Auto) % (45.0-75.0) Lymphocytes (%) (Auto) % (20.0-45.0) Monocytes (%) (Auto) % (1.0-10.0) Eosinophils (%) (Auto) % (0.0-3.0) Basophils (%) (Auto) % (0.0-2.0) Differential Total Cells Counted 100 Neutrophils % (Manual) 89 % (45-75) Lymphocytes % (Manual) 5 % (20-45) Monocytes % (Manual) 5 % (1-10) Eosinophils % (Manual) 1 % (0-3) Basophils % (Manual) 0 % (0-2) Band Neutrophils 0 % (0-8) Platelet Estimate Adequate Platelet Morphology Normal Hypochromasia 2+ Anisocytosis 1+ Uric Acid 6.1 MG/DL (2.6-7.2) Phosphorus Level 5.2 MG/DL (2.5-4.9) Magnesium Level 2.0 MG/DL (1.8-2.4) Total Bilirubin 0.3 MG/DL (0.2-1.0) Aspartate Amino Transf (AST/SGOT) 30 U/L (15-37) Alanine Aminotransferase (ALT/SGPT) 23 U/L (12-78) Alkaline Phosphatase 64 U/L (46-116) C-Reactive Protein, Quantitative 4.3 mg/dL (0.00-0.90) Pro-B-Type Natriuretic Peptide 5778 pg/mL (0-125) Total Protein 4.7 G/DL (6.4-8.2) Albumin 1.5 G/DL (3.4-5.0) Globulin 3.2 g/dL Albumin/Globulin Ratio 0.5 (1.0-2.7) Test 05/27/19 07:27 05/28/19 04:30 05/28/19 09:00 Arterial Blood pH 7.250 (7.350-7.450) Arterial Blood Partial Pressure CO2 60.5 mmHg (35.0-45.0) Arterial Blood Partial Pressure O2 69.0 mmHg (75.0-100.0) Arterial Blood HCO3 25.9 mmol/L (22.0-26.0) Arterial Blood Oxygen Saturation 93.7 % (95-100) Arterial Blood Base Excess -1.7 (-2-2) Koby Test Positive White Blood Count 9.9 K/UL (4.8-10.8) Red Blood Count 2.54 M/UL (4.70-6.10) Hemoglobin 7.6 G/DL (14.2-18.0) Hematocrit 23.8 % (42.0-52.0) Mean Corpuscular Volume 94 FL (80-99) Mean Corpuscular Hemoglobin 29.9 PG (27.0-31.0) Mean Corpuscular Hemoglobin Concent 31.9 G/DL (32.0-36.0) Red Cell Distribution Width 16.0 % (11.6-14.8) Platelet Count 179 K/UL (150-450) Mean Platelet Volume 5.3 FL (6.5-10.1) Neutrophils (%) (Auto) % (45.0-75.0) Lymphocytes (%) (Auto) % (20.0-45.0) Monocytes (%) (Auto) % (1.0-10.0) Eosinophils (%) (Auto) % (0.0-3.0) Basophils (%) (Auto) % (0.0-2.0) Differential Total Cells Counted 100 Neutrophils % (Manual) 91 % (45-75) Lymphocytes % (Manual) 5 % (20-45) Monocytes % (Manual) 4 % (1-10) Eosinophils % (Manual) 0 % (0-3) Basophils % (Manual) 0 % (0-2) Band Neutrophils 0 % (0-8) Platelet Estimate Adequate Platelet Morphology Normal Anisocytosis 1+ Sodium Level 138 MMOL/L (136-145) Potassium Level 4.4 MMOL/L (3.5-5.1) Chloride Level 108 MMOL/L (98-107) Carbon Dioxide Level 22 MMOL/L (21-32) Anion Gap 8 mmol/L (5-15) Blood Urea Nitrogen 67 mg/dL (7-18) Creatinine 3.5 MG/DL (0.55-1.30) Estimat Glomerular Filtration Rate mL/min (>60) Glucose Level 106 MG/DL (74-106) Uric Acid 5.9 MG/DL (2.6-7.2) Calcium Level 7.2 MG/DL (8.5-10.1) Phosphorus Level 4.7 MG/DL (2.5-4.9) Magnesium Level 1.9 MG/DL (1.8-2.4) Total Bilirubin 0.4 MG/DL (0.2-1.0) Gamma Glutamyl Transpeptidase 30 U/L (5-85) Aspartate Amino Transf (AST/SGOT) 33 U/L (15-37) Alanine Aminotransferase (ALT/SGPT) 25 U/L (12-78) Alkaline Phosphatase 64 U/L (46-116) Ammonia 20 umol/L (11-32) Total Creatine Kinase 109 U/L (26-308) Troponin I 0.205 ng/mL (0.000-0.056) C-Reactive Protein, Quantitative 20.9 mg/dL (0.00-0.90) Pro-B-Type Natriuretic Peptide 7475 pg/mL (0-125) Total Protein 4.9 G/DL (6.4-8.2) Albumin 1.8 G/DL (3.4-5.0) Globulin 3.1 g/dL Albumin/Globulin Ratio 0.6 (1.0-2.7) Random Vancomycin Level 29.9 ug/mL Vancomycin Level Trough 31.4 ug/mL (5.0-12.0) Micro Microbiology Date/Time Source Procedure Growth Status 05/27/19 17:00 Sputum Gram Stain - Final Resulted 05/27/19 17:00 Sputum Sputum Culture - Preliminary NO GROWTH Resulted Height (Feet): 5 Height (Inches): 7.00 Weight (Pounds): 180 Objective PE: Vitals: reviewed General Appearance: NAD HEENT: normocephalic, atraumatic++ ngt Neck: non-tender, normal alignment Respiratory/Chest: VENT++ Cardiovascular/Chest: normal peripheral pulses, normal rate Abdomen: normal bowel sounds, soft, nontender Extremities: normal range of motion ++ right arm swelling uSleman Addison MD May 28, 2019 13:16
--- NOTE | 2019-05-28 14:35 | Nephrology Progress Note ---
Assessment/Plan Problem List: (1) Renal failure (ARF), acute on chronic Assessment: Cr rising (2) Cellulitis of upper extremity (3) A-fib (4) Pneumonia (5) UTI (urinary tract infection) (6) Anemia Assessment: worsened (7) Hypothyroidism Assessment - KIMO on CKD - Urinary tract infection. - Anemia- - Dehydration. - Cellulitis of Upper extremity - HTN Plan in ICU intubated on pressors BP meds and Mind altering meds discontinued start midodrine check vanco levels - hold vanco doses previously: Per cardiology Anemia kumari- Avoid Nephrotoxics Per ID Allow CHANDA inhibitor to continue as long as renal function does not worsen. PICC line has been removed. CXR: Increased right pleural effusion and similar left pleural effusion. Increased interstitial and hazy opacities throughout the lungs. Subjective ROS Limited/Unobtainable: Yes Objective Objective Last 24 Hour Vital Signs Date Time Temp Pulse Resp B/P (MAP) Pulse Ox O2 Delivery O2 Flow Rate FiO2 05/28/19 14:00 91 18 114/38 (63) 94 05/28/19 14:00 113/48 05/28/19 13:31 83 20 60 05/28/19 13:30 88 21 121/39 (66) 93 05/28/19 13:00 121/39 05/28/19 13:00 89 18 122/43 (69) 94 05/28/19 12:30 83 17 110/41 (64) 95 05/28/19 12:00 120/39 05/28/19 12:00 99.9 89 21 120/39 (66) 93 05/28/19 12:00 88 05/28/19 12:00 Mechanical Ventilator 05/28/19 11:30 77 18 126/43 (70) 93 05/28/19 11:30 75 20 60 05/28/19 11:00 130/43 05/28/19 11:00 85 20 130/43 (72) 94 05/28/19 10:30 88 22 124/70 (88) 92 05/28/19 10:15 103/43 05/28/19 10:00 112/52 05/28/19 10:00 158 20 112/52 (72) 94 05/28/19 09:30 71 16 103/33 (56) 95 05/28/19 09:16 67 19 60 05/28/19 09:00 68 19 114/42 (66) 93 05/28/19 09:00 114/42 05/28/19 08:30 81 17 103/43 (63) 95 05/28/19 08:00 106/35 05/28/19 08:00 Mechanical Ventilator 05/28/19 08:00 71 05/28/19 08:00 99.3 73 16 106/35 (58) 96 05/28/19 07:30 73 14 99/36 (57) 97 05/28/19 07:15 68 18 60 05/28/19 07:00 99/79 05/28/19 07:00 72 18 99/79 (86) 95 05/28/19 06:30 80 18 118/42 (67) 95 05/28/19 06:00 81 18 120/42 (68) 95 05/28/19 06:00 116/41 05/28/19 05:30 75 16 108/46 (66) 95 05/28/19 05:17 60 17 60 05/28/19 05:00 69 12 98/37 (57) 97 05/28/19 05:00 104/34 05/28/19 04:30 69 13 109/36 (60) 100 05/28/19 04:00 99.2 71 11 92/36 (54) 100 05/28/19 04:00 Mechanical Ventilator 05/28/19 04:00 71 05/28/19 04:00 76/35 05/28/19 03:30 70 6 90/34 (52) 100 05/28/19 03:20 58 16 60 05/28/19 03:00 66 14 97/30 (52) 100 05/28/19 03:00 92/33 05/28/19 02:48 108/45 05/28/19 02:30 65 14 85/34 (51) 100 05/28/19 02:00 75 13 91/31 (51) 100 05/28/19 02:00 99/30 05/28/19 01:50 76 18 75 05/28/19 01:30 71 14 100/32 (54) 100 05/28/19 01:00 73 13 88/40 (56) 100 05/28/19 01:00 85/37 05/28/19 00:45 71 11 90/33 (52) 100 05/28/19 00:30 71 12 91/32 (51) 100 05/28/19 00:15 75 6 87/38 (54) 100 05/28/19 00:00 99.0 72 10 88/34 (52) 100 05/28/19 00:00 Mechanical Ventilator 05/28/19 00:00 73 05/28/19 00:00 87/38 05/27/19 23:45 84 19 108/32 (57) 05/27/19 23:30 74 6 93/34 (53) 100 05/27/19 23:30 68 18 75 05/27/19 23:00 91/37 05/27/19 23:00 91/37 (55) 05/27/19 22:30 79 19 93/37 (55) 100 05/27/19 22:00 75 13 103/43 (63) 100 05/27/19 22:00 103/43 05/27/19 21:30 82 16 99/42 (61) 99 05/27/19 21:25 75 19 75 05/27/19 21:00 84 12 105/38 (60) 99 05/27/19 21:00 105/38 05/27/19 20:30 85 12 115/40 (65) 98 05/27/19 20:00 99.6 81 13 110/40 (63) 98 05/27/19 20:00 84 05/27/19 20:00 Mechanical Ventilator 05/27/19 20:00 110/40 05/27/19 19:30 79 10 115/41 (65) 98 05/27/19 19:19 88 18 75 05/27/19 19:00 118/41 05/27/19 19:00 90 22 118/47 (70) 96 05/27/19 18:30 91 18 125/40 (68) 97 05/27/19 18:00 91 11 120/40 (66) 97 05/27/19 18:00 120/40 05/27/19 17:30 79 11 120/43 (68) 98 05/27/19 17:17 71 21 75 05/27/19 17:00 86 15 117/45 (69) 97 05/27/19 17:00 117/45 05/27/19 16:30 80 18 115/43 (67) 97 05/27/19 16:15 122 15 112/49 (70) 97 05/27/19 16:00 98.0 87 15 111/52 (71) 96 05/27/19 16:00 Mechanical Ventilator 05/27/19 16:00 111/52 05/27/19 16:00 90 05/27/19 15:45 87 17 111/45 (67) 97 05/27/19 15:31 123/48 05/27/19 15:30 85 24 115/47 (69) 97 05/27/19 15:15 85 16 123/48 (73) 97 05/27/19 15:05 83 20 75 05/27/19 15:00 85 13 115/44 (67) 97 05/27/19 15:00 115/44 05/27/19 14:45 84 9 105/46 (65) 97 Intake and Output 05/27/19 05/28/19 19:00 07:00 Intake Total 1097.45 ml 1342.5 ml Output Total 442 ml 380 ml Balance 655.45 ml 962.5 ml IV Total 997.45 ml 1342.5 ml Tube Feeding 0 ml 0 ml Other 100 ml Output Urine Total 442 ml 380 ml Laboratory Tests 05/28/19 04:30: White Blood Count 9.9, Red Blood Count 2.54L, Hemoglobin 7.6L, Hematocrit 23.8L , Mean Corpuscular Volume 94, Mean Corpuscular Hemoglobin 29.9, Mean Corpuscular Hemoglobin Concent 31.9L, Red Cell Distribution Width 16.0H, Platelet Count 179, Mean Platelet Volume 5.3L, Neutrophils (%) (Auto) , Lymphocytes (%) (Auto) , Monocytes (%) (Auto) , Eosinophils (%) (Auto) , Basophils (%) (Auto) , Differential Total Cells Counted 100, Neutrophils % ( Manual) 91H, Lymphocytes % (Manual) 5L, Monocytes % (Manual) 4, Eosinophils % ( Manual) 0, Basophils % (Manual) 0, Band Neutrophils 0, Platelet Estimate Adequate, Platelet Morphology Normal, Anisocytosis 1+, Sodium Level 138, Potassium Level 4.4, Chloride Level 108H, Carbon Dioxide Level 22, Anion Gap 8, Blood Urea Nitrogen 67H, Creatinine 3.5H, Estimat Glomerular Filtration Rate , Glucose Level 106, Uric Acid 5.9, Calcium Level 7.2L, Phosphorus Level 4.7, Magnesium Level 1.9, Total Bilirubin 0.4, Gamma Glutamyl Transpeptidase 30, Aspartate Amino Transf (AST/SGOT) 33, Alanine Aminotransferase (ALT/SGPT) 25, Alkaline Phosphatase 64, Ammonia 20, Total Creatine Kinase 109, Troponin I 0.205H, C-Reactive Protein, Quantitative 20.9H, Pro-B-Type Natriuretic Peptide 7475H, Total Protein 4.9L, Albumin 1.8L, Globulin 3.1, Albumin/Globulin Ratio 0.6L, Random Vancomycin Level 29.9 05/28/19 09:00: Vancomycin Level Trough 31.4H Height (Feet): 5 Height (Inches): 7.00 Weight (Pounds): 180 General Appearance: no apparent distress EENT: other - vented Respiratory/Chest: decreased breath sounds Abdomen: distended Neurologic: other - more responsive Reinier Mera MD May 28, 2019 14:35
--- NOTE | 2019-05-28 14:58 | Surgery Progress Note ---
Surgery Progress Note Subjective Additional Comments Ill-appearing in ICU. Still on vent support. Labs noted. Exam unchanged. Objective Last 24 Hour Vital Signs Date Time Temp Pulse Resp B/P (MAP) Pulse Ox O2 Delivery O2 Flow Rate FiO2 05/28/19 14:30 93 20 111/45 (67) 93 05/28/19 14:00 91 18 114/38 (63) 94 05/28/19 14:00 113/48 05/28/19 13:31 83 20 60 05/28/19 13:30 88 21 121/39 (66) 93 05/28/19 13:00 121/39 05/28/19 13:00 89 18 122/43 (69) 94 05/28/19 12:30 83 17 110/41 (64) 95 05/28/19 12:00 120/39 05/28/19 12:00 99.9 89 21 120/39 (66) 93 05/28/19 12:00 88 05/28/19 12:00 Mechanical Ventilator 05/28/19 11:30 77 18 126/43 (70) 93 05/28/19 11:30 75 20 60 05/28/19 11:00 130/43 05/28/19 11:00 85 20 130/43 (72) 94 05/28/19 10:30 88 22 124/70 (88) 92 05/28/19 10:15 103/43 05/28/19 10:00 112/52 05/28/19 10:00 158 20 112/52 (72) 94 05/28/19 09:30 71 16 103/33 (56) 95 05/28/19 09:16 67 19 60 05/28/19 09:00 68 19 114/42 (66) 93 05/28/19 09:00 114/42 05/28/19 08:30 81 17 103/43 (63) 95 05/28/19 08:00 106/35 05/28/19 08:00 Mechanical Ventilator 05/28/19 08:00 71 05/28/19 08:00 99.3 73 16 106/35 (58) 96 05/28/19 07:30 73 14 99/36 (57) 97 05/28/19 07:15 68 18 60 05/28/19 07:00 99/79 05/28/19 07:00 72 18 99/79 (86) 95 05/28/19 06:30 80 18 118/42 (67) 95 05/28/19 06:00 81 18 120/42 (68) 95 05/28/19 06:00 116/41 05/28/19 05:30 75 16 108/46 (66) 95 05/28/19 05:17 60 17 60 05/28/19 05:00 69 12 98/37 (57) 97 05/28/19 05:00 104/34 05/28/19 04:30 69 13 109/36 (60) 100 05/28/19 04:00 99.2 71 11 92/36 (54) 100 05/28/19 04:00 Mechanical Ventilator 05/28/19 04:00 71 05/28/19 04:00 76/35 05/28/19 03:30 70 6 90/34 (52) 100 05/28/19 03:20 58 16 60 05/28/19 03:00 66 14 97/30 (52) 100 05/28/19 03:00 92/33 05/28/19 02:48 108/45 05/28/19 02:30 65 14 85/34 (51) 100 05/28/19 02:00 75 13 91/31 (51) 100 05/28/19 02:00 99/30 05/28/19 01:50 76 18 75 05/28/19 01:30 71 14 100/32 (54) 100 05/28/19 01:00 73 13 88/40 (56) 100 05/28/19 01:00 85/37 05/28/19 00:45 71 11 90/33 (52) 100 05/28/19 00:30 71 12 91/32 (51) 100 05/28/19 00:15 75 6 87/38 (54) 100 05/28/19 00:00 99.0 72 10 88/34 (52) 100 05/28/19 00:00 Mechanical Ventilator 05/28/19 00:00 73 05/28/19 00:00 87/38 05/27/19 23:45 84 19 108/32 (57) 05/27/19 23:30 74 6 93/34 (53) 100 05/27/19 23:30 68 18 75 05/27/19 23:00 91/37 05/27/19 23:00 91/37 (55) 05/27/19 22:30 79 19 93/37 (55) 100 05/27/19 22:00 75 13 103/43 (63) 100 05/27/19 22:00 103/43 05/27/19 21:30 82 16 99/42 (61) 99 05/27/19 21:25 75 19 75 05/27/19 21:00 84 12 105/38 (60) 99 05/27/19 21:00 105/38 05/27/19 20:30 85 12 115/40 (65) 98 05/27/19 20:00 99.6 81 13 110/40 (63) 98 05/27/19 20:00 84 05/27/19 20:00 Mechanical Ventilator 05/27/19 20:00 110/40 05/27/19 19:30 79 10 115/41 (65) 98 05/27/19 19:19 88 18 75 05/27/19 19:00 118/41 05/27/19 19:00 90 22 118/47 (70) 96 05/27/19 18:30 91 18 125/40 (68) 97 05/27/19 18:00 91 11 120/40 (66) 97 05/27/19 18:00 120/40 05/27/19 17:30 79 11 120/43 (68) 98 05/27/19 17:17 71 21 75 05/27/19 17:00 86 15 117/45 (69) 97 05/27/19 17:00 117/45 05/27/19 16:30 80 18 115/43 (67) 97 05/27/19 16:15 122 15 112/49 (70) 97 05/27/19 16:00 98.0 87 15 111/52 (71) 96 05/27/19 16:00 Mechanical Ventilator 05/27/19 16:00 111/52 05/27/19 16:00 90 05/27/19 15:45 87 17 111/45 (67) 97 05/27/19 15:31 123/48 05/27/19 15:30 85 24 115/47 (69) 97 05/27/19 15:15 85 16 123/48 (73) 97 05/27/19 15:05 83 20 75 05/27/19 15:00 85 13 115/44 (67) 97 05/27/19 15:00 115/44 I&O Intake and Output 05/27/19 05/28/19 19:00 07:00 Intake Total 1097.45 ml 1342.5 ml Output Total 442 ml 380 ml Balance 655.45 ml 962.5 ml IV Total 997.45 ml 1342.5 ml Tube Feeding 0 ml 0 ml Other 100 ml Output Urine Total 442 ml 380 ml Dressing: saturated Wound: other Drains: other Cardiovascular: RSR Respiratory: decreased breath sounds Abdomen: soft, present bowel sounds, non-distended Extremities: no tenderness, no cyanosis Laboratory Tests Test 05/28/19 04:30 05/28/19 09:00 White Blood Count 9.9 K/UL (4.8-10.8) Red Blood Count 2.54 M/UL (4.70-6.10) L Hemoglobin 7.6 G/DL (14.2-18.0) L Hematocrit 23.8 % (42.0-52.0) L Mean Corpuscular Volume 94 FL (80-99) Mean Corpuscular Hemoglobin 29.9 PG (27.0-31.0) Mean Corpuscular Hemoglobin Concent 31.9 G/DL (32.0-36.0) L Red Cell Distribution Width 16.0 % (11.6-14.8) H Platelet Count 179 K/UL (150-450) Mean Platelet Volume 5.3 FL (6.5-10.1) L Neutrophils (%) (Auto) % (45.0-75.0) Lymphocytes (%) (Auto) % (20.0-45.0) Monocytes (%) (Auto) % (1.0-10.0) Eosinophils (%) (Auto) % (0.0-3.0) Basophils (%) (Auto) % (0.0-2.0) Differential Total Cells Counted 100 Neutrophils % (Manual) 91 % (45-75) H Lymphocytes % (Manual) 5 % (20-45) L Monocytes % (Manual) 4 % (1-10) Eosinophils % (Manual) 0 % (0-3) Basophils % (Manual) 0 % (0-2) Band Neutrophils 0 % (0-8) Platelet Estimate Adequate Platelet Morphology Normal Anisocytosis 1+ Sodium Level 138 MMOL/L (136-145) Potassium Level 4.4 MMOL/L (3.5-5.1) Chloride Level 108 MMOL/L (98-107) H Carbon Dioxide Level 22 MMOL/L (21-32) Anion Gap 8 mmol/L (5-15) Blood Urea Nitrogen 67 mg/dL (7-18) H Creatinine 3.5 MG/DL (0.55-1.30) H Estimat Glomerular Filtration Rate mL/min (>60) Glucose Level 106 MG/DL (74-106) Uric Acid 5.9 MG/DL (2.6-7.2) Calcium Level 7.2 MG/DL (8.5-10.1) L Phosphorus Level 4.7 MG/DL (2.5-4.9) Magnesium Level 1.9 MG/DL (1.8-2.4) Total Bilirubin 0.4 MG/DL (0.2-1.0) Gamma Glutamyl Transpeptidase 30 U/L (5-85) Aspartate Amino Transf (AST/SGOT) 33 U/L (15-37) Alanine Aminotransferase (ALT/SGPT) 25 U/L (12-78) Alkaline Phosphatase 64 U/L (46-116) Ammonia 20 umol/L (11-32) Total Creatine Kinase 109 U/L (26-308) Troponin I 0.205 ng/mL (0.000-0.056) C-Reactive Protein, Quantitative 20.9 mg/dL (0.00-0.90) H Pro-B-Type Natriuretic Peptide 7475 pg/mL (0-125) H Total Protein 4.9 G/DL (6.4-8.2) L Albumin 1.8 G/DL (3.4-5.0) L Globulin 3.1 g/dL Albumin/Globulin Ratio 0.6 (1.0-2.7) L Random Vancomycin Level 29.9 ug/mL Vancomycin Level Trough 31.4 ug/mL (5.0-12.0) H Plan Problems: (1) Cellulitis of upper extremity Assessment & Plan: 84M with RUE cellulitis, edema, erythema. no drainage. has RUE picc line recommend removal of picc. removed at bedside by myself on 05/18. pressure held, hemostasis noted, dressings applied. cath tip sent for cultures DVT duplex studies with acute thrombus IV Abx as per ID UA pending Cx results keep RUE elevated on pillows okay for diet AM labs anticoagulation off load pressure for dti noted cellulitis and edema improved deteriorated intubated on vent support likely respiratory insufficiency labs ordered wean vent okay for tube feeds via ng will follow with recs thank you (2) Cellulitis Assessment & Plan: Pt presented on admission with reabsorbing blister lateral R heel. Base of injury indurated with delineated margins(L)4cm x (W)3cm.Non- blanching erythema Sacrum ,R and L buttocks(L)8.5cm x (W)9cm, with a partial thickness pressure injury noted to L buttocks. Base of wound is moist and viable (L)2.3cm x (W)3cm. Area around wound tender when minimally palpated. Pt noted to be wearing splint L foot. Per pt he fractured foot a few weeks ago. Splint removed to assess skin integrity. L heel and malleoli are pink and blanchable.Cavilon Skin Barrier applied to L heel and malleoli and each area covered with Optifoam drsg. Splint reapplied. No other skin concerns noted. Tx.Plan: Apply Moisture Barrier to Buttocks. Cover with Optifoam drsg. Changee very 3 days and prn. Apply Cavilon Skin Barrier to both heels. Cover each heel with Optifoam drsg. Change every 7 days and prn APM/SCOOBY Mattress overlay. Reposition at least every 2hours or as tolerated. Off-load heels with pillow. Bennett Logan May 28, 2019 14:58
[2019-05-28] MEDS: Midodrine 10mg tab ORAL SCH ×2 (15:39→17:58)
[2019-05-28] MEDS: Acetaminophen 650mg/20.3ml GT PRN (15:39)
[2019-05-28] MEDS: Dyna-Hex 2% Top Sol 2oz TOPIC SCH (20:44)
[2019-05-29] VITALS (54 sets, daily range): BP systolic 79–173; BP diastolic 33–70
[2019-05-29 04:34] LABS: HEMATOCRIT 24.2 % (42.0-52.0); MEAN CORPUSCULAR VOLUME 92 FL (80-99); PLATELET COUNT 160 K/UL (150-450); RED BLOOD COUNT 2.62 M/UL (4.70-6.10); RED CELL DISTRIBUTION WIDTH 15.7 % (11.6-14.8); WHITE BLOOD COUNT 7.9 K/UL (4.8-10.8)
[2019-05-29 05:18] LABS: ALANINE AMINOTRANSFERASE 22 U/L (12-78); ALBUMIN 1.5 G/DL (3.4-5.0); ALBUMIN/GLOBULIN RATIO 0.5 (1.0-2.7); ALKALINE PHOSPHATASE 57 U/L (46-116); ANION GAP 9 mmol/L (5-15); ASPARTATE AMINO TRANSFERASE 30 U/L (15-37); BILIRUBIN,TOTAL 0.4 MG/DL (0.2-1.0); BLOOD UREA NITROGEN 76 mg/dL (7-18); CALCIUM 7.2 MG/DL (8.5-10.1); CARBON DIOXIDE 22 MMOL/L (21-32); CHLORIDE 109 MMOL/L (98-107); CREATININE 3.9 MG/DL (0.55-1.30); POTASSIUM 4.4 MMOL/L (3.5-5.1); SODIUM 140 MMOL/L (136-145)
--- NOTE | 2019-05-29 08:12 | Critical Care Progress Note ---
Assessment/Plan Assessment/Plan IMPRESSION AND PLAN: 1. Pneumonia. bilateral 2. Cellulitis. 3. History of COPD. 4. Hypertension. 5. Afib with RVR; rate controlled 6. Respiratory failure, acute 7. Hypoxemia, improved 8. Chronic renal failure PLAN vent support and taper consider wean when fio2 needs improve further monitor oxygen needs monitor imaging still with significant infiltrates support as able for now in ICU feeds off load nutrition as able monitor protein levels follow up cxr for clearing medications/laboratory data/nursing notes/ICU care reviewed in detail note reviewed and edited care discussed with RN and RT ICU time spent 39 minutes Critical Care - Subjective Interval Events: overnight events reviewed ICU care noted was on 100% o2; now at 60% some secretions hypotension and pressors noted ROS Limited/Unobtainable: Yes Condition: critical EKG Rhythm: Sinus Rhythm Residuals: minimal Tube Feeding Tolerated: yes I&O: Intake and Output 05/28/19 05/29/19 19:00 07:00 Intake Total 1552.0 ml 1812.5 ml Output Total 260 ml 260 ml Balance 1292.0 ml 1552.5 ml Free Water 0 ml IV Total 1522.0 ml 1512.5 ml Tube Feeding 0 ml 0 ml Blood Product 30 ml 300 ml Output Urine Total 260 ml 260 ml # Bowel Movements 1 2 Critical Care - Objective ET-Tube: 7.5 ET Position: 25 Last 24 Hour Vital Signs Date Time Temp Pulse Resp B/P (MAP) Pulse Ox O2 Delivery O2 Flow Rate FiO2 05/29/19 07:30 70 17 126/41 (69) 92 05/29/19 07:11 76 17 96 Mechanical Ventilator 8.0 60 05/29/19 07:08 72 21 60 05/29/19 07:00 75 21 126/41 (69) 92 05/29/19 06:30 76 21 139/49 (79) 92 05/29/19 06:24 100/55 05/29/19 06:00 140/55 05/29/19 06:00 77 21 119/43 (68) 93 05/29/19 05:30 67 19 107/47 (67) 98 05/29/19 05:30 75 20 60 05/29/19 05:00 63 13 96/36 (56) 98 05/29/19 05:00 94/38 05/29/19 04:45 88/38 05/29/19 04:30 63 15 93/38 (56) 97 05/29/19 04:00 65 05/29/19 04:00 63 20 95/39 (57) 96 05/29/19 04:00 87/41 05/29/19 04:00 Mechanical Ventilator 05/29/19 04:00 69 05/29/19 03:30 80 20 70 05/29/19 03:30 71 21 99/41 (60) 95 05/29/19 03:00 101/39 05/29/19 03:00 75 19 105/47 (66) 94 05/29/19 02:30 78 21 106/41 (62) 94 05/29/19 02:00 79 19 100/49 (66) 94 05/29/19 02:00 112/42 05/29/19 01:30 82 19 110/40 (63) 94 05/29/19 01:30 118/60 05/29/19 01:21 85 19 70 05/29/19 01:00 85 15 134/48 (76) 97 05/29/19 00:42 119/48 05/29/19 00:30 62 18 119/48 (71) 97 05/29/19 00:00 65 05/29/19 00:00 98.8 65 18 119/44 (69) 97 05/29/19 00:00 Mechanical Ventilator 05/29/19 00:00 65 05/29/19 00:00 120/45 05/28/19 23:30 69 18 70 05/28/19 23:30 65 19 126/51 (76) 97 05/28/19 23:00 127/48 05/28/19 23:00 73 19 128/45 (72) 98 05/28/19 22:30 76 19 135/46 (75) 97 05/28/19 22:00 49 21 115/51 (72) 96 05/28/19 22:00 139/66 05/28/19 21:30 50 22 70 05/28/19 21:30 48 21 118/40 (66) 96 05/28/19 21:00 52 27 124/48 (73) 95 05/28/19 21:00 123/42 05/28/19 20:46 90/50 05/28/19 20:30 52 22 126/51 (76) 94 05/28/19 20:00 98.4 88 21 126/54 (78) 96 05/28/19 20:00 53 05/28/19 20:00 109/42 05/28/19 20:00 65 05/28/19 20:00 Mechanical Ventilator 05/28/19 19:45 73 14 114/46 (68) 96 05/28/19 19:30 136 20 128/61 (83) 97 05/28/19 19:30 75 20 70 05/28/19 19:00 129 11 111/64 (80) 100 05/28/19 19:00 111/44 05/28/19 18:30 167 22 115/64 (81) 99 05/28/19 18:00 131/38 05/28/19 18:00 73 17 131/38 (69) 99 05/28/19 17:30 72 13 130/38 (68) 99 05/28/19 17:19 66 16 100 05/28/19 17:00 64 15 120/40 (66) 100 05/28/19 16:53 124/42 05/28/19 16:52 124/41 05/28/19 16:30 72 16 85/40 (55) 100 05/28/19 16:09 99.8 05/28/19 16:00 99.8 05/28/19 16:00 85 05/28/19 16:00 Mechanical Ventilator 05/28/19 16:00 98/48 05/28/19 16:00 80 16 92/38 (56) 100 05/28/19 15:30 100 05/28/19 15:30 93 20 119/44 (69) 93 05/28/19 15:29 90 19 100 05/28/19 15:00 93 21 123/41 (68) 93 05/28/19 15:00 123/41 05/28/19 14:30 93 20 111/45 (67) 93 05/28/19 14:00 91 18 114/38 (63) 94 05/28/19 14:00 113/48 05/28/19 13:31 83 20 60 05/28/19 13:30 88 21 121/39 (66) 93 05/28/19 13:00 121/39 05/28/19 13:00 89 18 122/43 (69) 94 05/28/19 12:30 83 17 110/41 (64) 95 05/28/19 12:00 120/39 05/28/19 12:00 99.9 89 21 120/39 (66) 93 05/28/19 12:00 88 05/28/19 12:00 Mechanical Ventilator 05/28/19 12:00 60 05/28/19 11:30 77 18 126/43 (70) 93 05/28/19 11:30 75 20 60 05/28/19 11:00 130/43 05/28/19 11:00 85 20 130/43 (72) 94 05/28/19 10:30 88 22 124/70 (88) 92 05/28/19 10:15 103/43 05/28/19 10:00 112/52 05/28/19 10:00 158 20 112/52 (72) 94 05/28/19 09:30 71 16 103/33 (56) 95 05/28/19 09:16 67 19 60 05/28/19 09:00 68 19 114/42 (66) 93 05/28/19 09:00 114/42 05/28/19 08:30 81 17 103/43 (63) 95 Labs: Laboratory Tests Test 05/28/19 09:00 05/28/19 20:00 05/29/19 03:20 Vancomycin Level Trough 31.4 ug/mL (5.0-12.0) H Stool Occult Blood Pending White Blood Count 7.9 K/UL (4.8-10.8) Red Blood Count 2.62 M/UL (4.70-6.10) L Hemoglobin 8.0 G/DL (14.2-18.0) L Hematocrit 24.2 % (42.0-52.0) L Mean Corpuscular Volume 92 FL (80-99) Mean Corpuscular Hemoglobin 30.3 PG (27.0-31.0) Mean Corpuscular Hemoglobin Concent 32.9 G/DL (32.0-36.0) Red Cell Distribution Width 15.7 % (11.6-14.8) H Platelet Count 160 K/UL (150-450) Mean Platelet Volume 4.8 FL (6.5-10.1) L Neutrophils (%) (Auto) % (45.0-75.0) Lymphocytes (%) (Auto) % (20.0-45.0) Monocytes (%) (Auto) % (1.0-10.0) Eosinophils (%) (Auto) % (0.0-3.0) Basophils (%) (Auto) % (0.0-2.0) Neutrophils % (Manual) Pending Lymphocytes % (Manual) Pending Platelet Estimate Pending Platelet Morphology Pending Sodium Level 140 MMOL/L (136-145) Potassium Level 4.4 MMOL/L (3.5-5.1) Chloride Level 109 MMOL/L (98-107) H Carbon Dioxide Level 22 MMOL/L (21-32) Anion Gap 9 mmol/L (5-15) Blood Urea Nitrogen 76 mg/dL (7-18) H Creatinine 3.9 MG/DL (0.55-1.30) H Estimat Glomerular Filtration Rate mL/min (>60) Glucose Level 124 MG/DL (74-106) H Uric Acid 6.4 MG/DL (2.6-7.2) Calcium Level 7.2 MG/DL (8.5-10.1) L Phosphorus Level 5.0 MG/DL (2.5-4.9) H Magnesium Level 2.0 MG/DL (1.8-2.4) Total Bilirubin 0.4 MG/DL (0.2-1.0) Aspartate Amino Transf (AST/SGOT) 30 U/L (15-37) Alanine Aminotransferase (ALT/SGPT) 22 U/L (12-78) Alkaline Phosphatase 57 U/L (46-116) Troponin I 0.152 ng/mL (0.000-0.056) C-Reactive Protein, Quantitative 23.8 mg/dL (0.00-0.90) H Pro-B-Type Natriuretic Peptide 6733 pg/mL (0-125) H Total Protein 4.5 G/DL (6.4-8.2) L Albumin 1.5 G/DL (3.4-5.0) L Globulin 3.0 g/dL Albumin/Globulin Ratio 0.5 (1.0-2.7) L Random Vancomycin Level 28.0 ug/mL Objective: WDWN NAD orally intubated and good volumes noted reduced breath sounds bilaterally with some rhonchi- persistet [id number] without MRG NABS nontender no HSM no CC mild edema nonfocal reviewed and edited Micro: Microbiology Date/Time Source Procedure Growth Status 05/27/19 17:00 Sputum Gram Stain - Final Resulted 05/27/19 17:00 Sputum Sputum Culture - Preliminary NO GROWTH Resulted Accucheck: 130 Korey Mtz MD May 29, 2019 08:12
--- NOTE | 2019-05-29 08:33 | Hematology/Onc Progress Note ---
Assessment/Plan Assessment/Plan # Anemia of chronic disease due to underlying chronic medical issues, multifactorial v Gi bleed --> Anemia workup has been reviewed, rule out gi bleed --> No evidence of hemolysis is noted, peripheral smear has been reviewed. --> Hgb goal >7. Transfuse prn. --> Epogen or iron at this time is not particularly indicated --> Medications have been reviewed --> low threshold for gi evaluation in case has occult + --> hgb trend: 9.3-->9.7-->8.1-->7.6-->8 --> transf 05/28/19 with 1 unit prbc --> transfusion is a emergency, no family, no poa, is okay to transfuse # Right upper arm extremity axillary vein dvt --> agree to continue eliquis --> as per cards low dose eliquis --> continue for total of minimum of 3 months --> rescan arm in 3 mo # Cellulitis of upper extremity, likely picc line infection --> as per id on ax --> picc off --> levoflox/vanc-->zosyn/vanc--> zosyn # Renal insufficiency --> per Dr. Mera # Pneumonia --> abx per id # Dehydration. --> goal of euvolemia # Paroxysmal Atrial fibrillation with rapid ventricular response was on amiodarone gtt, now in sinus rhythm. --> per cards On PO amiodarone 200 bid, Lopressor 25 bid and Eliquis 2.5 bid # Dysphagia with ng tube # Dvt ppx eliquis The timing of this note does not necessarily reflect the time of the patient was seen. Greatly appreciate consultation. Subjective HEENT: Denies: no symptoms, eye pain, blurred vision, tearing, double vision, ear pain, ear discharge, nose pain, nose congestion, throat pain, throat swelling, mouth pain, mouth swelling, other Cardiovascular: Denies: no symptoms, chest pain, edema, irregular heart rate, lightheadedness, palpitations, syncope, other Respiratory: Denies: no symptoms, cough, shortness of breath, SOB with excertion, SOB at rest, sputum, wheezing, other Genitourinary: Denies: no symptoms, burning, discharge, frequency, flank pain, hematuria, incontinence, pain, urgency, other Neurologic/Psychiatric: Denies: no symptoms, anxiety, depressed, emotional problems, headache, numbness, paresthesia, pre-existing deficit, seizure, tingling, tremors, weakness, other Endocrine: Denies: no symptoms, excessive sweating, flushing, intolerance to cold, intolerance to heat, increased hunger, increased thirst, increased urine, unexplained weight gain, unexplained weight loss, other Hematologic/Lymphatic: Denies: no symptoms, anemia, easy bleeding, easy bruising, adenopathy, other Allergies: Coded Allergies: No Known Allergies (Unverified , 05/18/19) Subjective 05/24: awake and alert, v mask, labs reviewed, apixaban 05/25: as per gi, ngt and eliquis tolerated 05/26: pending clearance but still with ng and nonrebreather 05/27: hypoxic yesterday, deteriorated, coded, now intubated, icu, labs noted 05/28: icu, levophed gtt, hgb 7.6, repeat cbc 05/29: remains in the icu, given prbc last night, no bleeding Objective Objective Current Medications Medications (Trade) Dose Ordered Sig/Phillip Route PRN Reason Start Time Stop Time Status Last Admin Dose Admin Acetaminophen (Tylenol) 500 mg Q4H PRN GT Mild Pain/Temp > 100.5 05/27/19 07:45 06/19/19 20:29 05/28/19 15:39 Amiodarone HCl (Cordarone) 200 mg DAILY ORAL 05/26/19 09:00 06/21/19 20:59 05/28/19 15:38 Apixaban (Eliquis) 2.5 mg BID ORAL 05/26/19 09:00 06/25/19 08:59 05/28/19 17:59 Chlorhexidine Gluconate (Reina-Hex 2%) 1 applic DAILY@1999 TOPIC 05/27/19 20:00 06/26/19 19:59 05/28/19 20:44 Docusate Sodium (Colace) 100 mg TID NG 05/27/19 09:00 06/20/19 08:59 05/28/19 17:58 Midodrine (Pro-Amatine) 10 mg THREE TIMES A DAY ORAL 05/28/19 14:45 1/31/20 14:44 05/28/19 17:58 Norepinephrine Bitartrate 4 mg/ Dextrose 250 ml @ 0 mls/hr Q24H IV 05/27/19 00:30 06/26/19 00:29 05/29/19 06:24 Pantoprazole (Protonix) 40 mg EVERY 12 HOURS IVP 05/27/19 10:45 06/26/19 10:44 05/28/19 21:16 Piperacillin Sod/ Tazobactam Sod 3.375 gm/Sodium Chloride 110 ml @ 27.5 mls/hr Q12H IVPB 05/27/19 11:30 06/03/19 11:29 05/28/19 23:46 Sodium Chloride 1,000 ml @ 75 mls/hr [id number] IV 05/27/19 10:45 06/26/19 10:44 05/29/19 06:25 Last 24 Hour Vital Signs Date Time Temp Pulse Resp B/P (MAP) Pulse Ox O2 Delivery O2 Flow Rate FiO2 05/29/19 07:30 70 17 126/41 (69) 92 05/29/19 07:11 76 17 96 Mechanical Ventilator 8.0 60 05/29/19 07:08 72 21 60 05/29/19 07:00 75 21 126/41 (69) 92 05/29/19 06:30 76 21 139/49 (79) 92 05/29/19 06:24 100/55 05/29/19 06:00 140/55 05/29/19 06:00 77 21 119/43 (68) 93 05/29/19 05:30 67 19 107/47 (67) 98 05/29/19 05:30 75 20 60 05/29/19 05:00 63 13 96/36 (56) 98 05/29/19 05:00 94/38 05/29/19 04:45 88/38 05/29/19 04:30 63 15 93/38 (56) 97 05/29/19 04:00 65 05/29/19 04:00 63 20 95/39 (57) 96 05/29/19 04:00 87/41 05/29/19 04:00 Mechanical Ventilator 05/29/19 04:00 69 05/29/19 03:30 80 20 70 05/29/19 03:30 71 21 99/41 (60) 95 05/29/19 03:00 101/39 05/29/19 03:00 75 19 105/47 (66) 94 05/29/19 02:30 78 21 106/41 (62) 94 05/29/19 02:00 79 19 100/49 (66) 94 05/29/19 02:00 112/42 05/29/19 01:30 82 19 110/40 (63) 94 05/29/19 01:30 118/60 05/29/19 01:21 85 19 70 05/29/19 01:00 85 15 134/48 (76) 97 05/29/19 00:42 119/48 05/29/19 00:30 62 18 119/48 (71) 97 05/29/19 00:00 65 05/29/19 00:00 98.8 65 18 119/44 (69) 97 05/29/19 00:00 Mechanical Ventilator 05/29/19 00:00 65 05/29/19 00:00 120/45 05/28/19 23:30 69 18 70 05/28/19 23:30 65 19 126/51 (76) 97 05/28/19 23:00 127/48 05/28/19 23:00 73 19 128/45 (72) 98 05/28/19 22:30 76 19 135/46 (75) 97 05/28/19 22:00 49 21 115/51 (72) 96 05/28/19 22:00 139/66 05/28/19 21:30 50 22 70 05/28/19 21:30 48 21 118/40 (66) 96 05/28/19 21:00 52 27 124/48 (73) 95 05/28/19 21:00 123/42 05/28/19 20:46 90/50 05/28/19 20:30 52 22 126/51 (76) 94 05/28/19 20:00 98.4 88 21 126/54 (78) 96 05/28/19 20:00 53 05/28/19 20:00 109/42 05/28/19 20:00 65 05/28/19 20:00 Mechanical Ventilator 05/28/19 19:45 73 14 114/46 (68) 96 05/28/19 19:30 136 20 128/61 (83) 97 05/28/19 19:30 75 20 70 05/28/19 19:00 129 11 111/64 (80) 100 05/28/19 19:00 111/44 05/28/19 18:30 167 22 115/64 (81) 99 05/28/19 18:00 131/38 05/28/19 18:00 73 17 131/38 (69) 99 05/28/19 17:30 72 13 130/38 (68) 99 05/28/19 17:19 66 16 100 05/28/19 17:00 64 15 120/40 (66) 100 05/28/19 16:53 124/42 05/28/19 16:52 124/41 05/28/19 16:30 72 16 85/40 (55) 100 05/28/19 16:09 99.8 05/28/19 16:00 99.8 05/28/19 16:00 85 05/28/19 16:00 Mechanical Ventilator 05/28/19 16:00 98/48 05/28/19 16:00 80 16 92/38 (56) 100 05/28/19 15:30 100 05/28/19 15:30 93 20 119/44 (69) 93 05/28/19 15:29 90 19 100 05/28/19 15:00 93 21 123/41 (68) 93 05/28/19 15:00 123/41 05/28/19 14:30 93 20 111/45 (67) 93 05/28/19 14:00 91 18 114/38 (63) 94 05/28/19 14:00 113/48 05/28/19 13:31 83 20 60 05/28/19 13:30 88 21 121/39 (66) 93 05/28/19 13:00 121/39 05/28/19 13:00 89 18 122/43 (69) 94 05/28/19 12:30 83 17 110/41 (64) 95 05/28/19 12:00 120/39 05/28/19 12:00 99.9 89 21 120/39 (66) 93 05/28/19 12:00 88 05/28/19 12:00 Mechanical Ventilator 05/28/19 12:00 60 05/28/19 11:30 77 18 126/43 (70) 93 05/28/19 11:30 75 20 60 05/28/19 11:00 130/43 05/28/19 11:00 85 20 130/43 (72) 94 05/28/19 10:30 88 22 124/70 (88) 92 05/28/19 10:15 103/43 05/28/19 10:00 112/52 05/28/19 10:00 158 20 112/52 (72) 94 05/28/19 09:30 71 16 103/33 (56) 95 05/28/19 09:16 67 19 60 05/28/19 09:00 68 19 114/42 (66) 93 05/28/19 09:00 114/42 05/28/19 08:30 81 17 103/43 (63) 95 05/28/19 08:00 60 05/28/19 08:00 106/35 05/28/19 08:00 Mechanical Ventilator 05/28/19 08:00 71 05/28/19 08:00 99.3 73 16 106/35 (58) 96 05/28/19 07:30 73 14 99/36 (57) 97 05/28/19 07:15 68 18 60 05/28/19 07:00 99/79 05/28/19 07:00 72 18 99/79 (86) 95 05/28/19 06:30 80 18 118/42 (67) 95 05/28/19 06:00 81 18 120/42 (68) 95 05/28/19 06:00 116/41 05/28/19 05:30 75 16 108/46 (66) 95 05/28/19 05:17 60 17 60 05/28/19 05:00 69 12 98/37 (57) 97 05/28/19 05:00 104/34 05/28/19 04:30 69 13 109/36 (60) 100 05/28/19 04:00 99.2 71 11 92/36 (54) 100 05/28/19 04:00 Mechanical Ventilator 05/28/19 04:00 71 05/28/19 04:00 76/35 05/28/19 03:30 70 6 90/34 (52) 100 05/28/19 03:20 58 16 60 05/28/19 03:00 66 14 97/30 (52) 100 05/28/19 03:00 92/33 05/28/19 02:48 108/45 05/28/19 02:30 65 14 85/34 (51) 100 05/28/19 02:00 75 13 91/31 (51) 100 05/28/19 02:00 99/30 05/28/19 01:50 76 18 75 05/28/19 01:30 71 14 100/32 (54) 100 05/28/19 01:00 73 13 88/40 (56) 100 05/28/19 01:00 85/37 05/28/19 00:45 71 11 90/33 (52) 100 05/28/19 00:30 71 12 91/32 (51) 100 05/28/19 00:15 75 6 87/38 (54) 100 05/28/19 00:00 99.0 72 10 88/34 (52) 100 05/28/19 00:00 Mechanical Ventilator 05/28/19 00:00 73 05/28/19 00:00 87/38 05/27/19 23:45 84 19 108/32 (57) 05/27/19 23:30 74 6 93/34 (53) 100 05/27/19 23:30 68 18 75 05/27/19 23:00 91/37 05/27/19 23:00 91/37 (55) 05/27/19 22:30 79 19 93/37 (55) 100 05/27/19 22:00 75 13 103/43 (63) 100 05/27/19 22:00 103/43 05/27/19 21:30 82 16 99/42 (61) 99 05/27/19 21:25 75 19 75 05/27/19 21:00 84 12 105/38 (60) 99 05/27/19 21:00 105/38 05/27/19 20:30 85 12 115/40 (65) 98 05/27/19 20:00 99.6 81 13 110/40 (63) 98 05/27/19 20:00 84 05/27/19 20:00 Mechanical Ventilator 05/27/19 20:00 110/40 05/27/19 19:30 79 10 115/41 (65) 98 05/27/19 19:19 88 18 75 05/27/19 19:00 118/41 05/27/19 19:00 90 22 118/47 (70) 96 05/27/19 18:30 91 18 125/40 (68) 97 05/27/19 18:00 91 11 120/40 (66) 97 05/27/19 18:00 120/40 05/27/19 17:30 79 11 120/43 (68) 98 05/27/19 17:17 71 21 75 05/27/19 17:00 86 15 117/45 (69) 97 05/27/19 17:00 117/45 05/27/19 16:30 80 18 115/43 (67) 97 05/27/19 16:15 122 15 112/49 (70) 97 05/27/19 16:00 98.0 87 15 111/52 (71) 96 05/27/19 16:00 Mechanical Ventilator 05/27/19 16:00 111/52 05/27/19 16:00 90 05/27/19 15:45 87 17 111/45 (67) 97 05/27/19 15:31 123/48 05/27/19 15:30 85 24 115/47 (69) 97 05/27/19 15:15 85 16 123/48 (73) 97 05/27/19 15:05 83 20 75 05/27/19 15:00 85 13 115/44 (67) 97 05/27/19 15:00 115/44 05/27/19 14:45 84 9 105/46 (65) 97 05/27/19 14:30 85 10 115/39 (64) 97 05/27/19 14:15 86 13 115/37 (63) 97 05/27/19 14:00 113/44 05/27/19 14:00 90 10 113/44 (67) 96 05/27/19 13:45 87 15 111/46 (67) 90 05/27/19 13:30 86 16 116/39 (64) 91 05/27/19 13:15 82 19 98/43 (61) 92 05/27/19 13:00 111/47 05/27/19 13:00 81 20 111/47 (68) 94 05/27/19 12:54 88 21 80 05/27/19 12:45 85 18 118/40 (66) 93 05/27/19 12:30 108/44 05/27/19 12:30 80 23 108/44 (65) 93 05/27/19 12:15 81 16 120/44 (69) 93 05/27/19 12:00 Mechanical Ventilator 05/27/19 12:00 123/43 05/27/19 12:00 80 05/27/19 12:00 98.9 86 21 123/43 (69) 93 05/27/19 11:30 83 20 128/45 (72) 93 05/27/19 11:00 112/42 05/27/19 11:00 80 21 112/42 (65) 95 05/27/19 10:53 77 20 80 05/27/19 10:30 74 16 111/43 (65) 95 05/27/19 10:00 75 14 106/42 (63) 95 05/27/19 10:00 106/42 05/27/19 09:30 77 23 106/42 (63) 95 05/27/19 09:15 79 19 112/37 (62) 95 05/27/19 09:00 102.6 77 17 111/38 (62) 94 05/27/19 09:00 111/38 05/27/19 08:45 79 20 107/43 (64) 95 05/27/19 08:45 79 18 80 05/27/19 08:34 78 103/37 05/27/19 08:33 78 103/37 Intake and Output 05/28/19 05/29/19 19:00 07:00 Intake Total 1552.0 ml 1812.5 ml Output Total 260 ml 260 ml Balance 1292.0 ml 1552.5 ml Free Water 0 ml IV Total 1522.0 ml 1512.5 ml Tube Feeding 0 ml 0 ml Blood Product 30 ml 300 ml Output Urine Total 260 ml 260 ml # Bowel Movements 1 2 Labs Test 05/26/19 11:35 05/26/19 20:56 05/27/19 00:21 05/27/19 04:15 Sodium Level 149 MMOL/L (136-145) 143 MMOL/L (136-145) Potassium Level 5.4 MMOL/L (3.5-5.1) 5.1 MMOL/L (3.5-5.1) Chloride Level 116 MMOL/L (98-107) 113 MMOL/L (98-107) Carbon Dioxide Level 26 MMOL/L (21-32) 25 MMOL/L (21-32) Anion Gap 7 mmol/L (5-15) 5 mmol/L (5-15) Blood Urea Nitrogen 56 mg/dL (7-18) 59 mg/dL (7-18) Creatinine 2.5 MG/DL (0.55-1.30) 3.1 MG/DL (0.55-1.30) Estimat Glomerular Filtration Rate mL/min (>60) mL/min (>60) Glucose Level 154 MG/DL (74-106) 141 MG/DL (74-106) Calcium Level 8.0 MG/DL (8.5-10.1) 7.8 MG/DL (8.5-10.1) Arterial Blood pH 7.069 (7.350-7.450) 7.174 (7.350-7.450) Arterial Blood Partial Pressure CO2 81.1 mmHg (35.0-45.0) 60.2 mmHg (35.0-45.0) Arterial Blood Partial Pressure O2 56.9 mmHg (75.0-100.0) 90.6 mmHg (75.0-100.0) Arterial Blood HCO3 22.9 mmol/L (22.0-26.0) 21.7 mmol/L (22.0-26.0) Arterial Blood Oxygen Saturation 87.6 % (95-100) 96.2 % (95-100) Arterial Blood Base Excess -7.7 (-2-2) -6.8 (-2-2) Koby Test Positive Positive White Blood Count 9.5 K/UL (4.8-10.8) Red Blood Count 2.65 M/UL (4.70-6.10) Hemoglobin 8.1 G/DL (14.2-18.0) Hematocrit 25.3 % (42.0-52.0) Mean Corpuscular Volume 95 FL (80-99) Mean Corpuscular Hemoglobin 30.4 PG (27.0-31.0) Mean Corpuscular Hemoglobin Concent 31.9 G/DL (32.0-36.0) Red Cell Distribution Width 16.3 % (11.6-14.8) Platelet Count 226 K/UL (150-450) Mean Platelet Volume 4.6 FL (6.5-10.1) Neutrophils (%) (Auto) % (45.0-75.0) Lymphocytes (%) (Auto) % (20.0-45.0) Monocytes (%) (Auto) % (1.0-10.0) Eosinophils (%) (Auto) % (0.0-3.0) Basophils (%) (Auto) % (0.0-2.0) Differential Total Cells Counted 100 Neutrophils % (Manual) 89 % (45-75) Lymphocytes % (Manual) 5 % (20-45) Monocytes % (Manual) 5 % (1-10) Eosinophils % (Manual) 1 % (0-3) Basophils % (Manual) 0 % (0-2) Band Neutrophils 0 % (0-8) Platelet Estimate Adequate Platelet Morphology Normal Hypochromasia 2+ Anisocytosis 1+ Uric Acid 6.1 MG/DL (2.6-7.2) Phosphorus Level 5.2 MG/DL (2.5-4.9) Magnesium Level 2.0 MG/DL (1.8-2.4) Total Bilirubin 0.3 MG/DL (0.2-1.0) Aspartate Amino Transf (AST/SGOT) 30 U/L (15-37) Alanine Aminotransferase (ALT/SGPT) 23 U/L (12-78) Alkaline Phosphatase 64 U/L (46-116) C-Reactive Protein, Quantitative 4.3 mg/dL (0.00-0.90) Pro-B-Type Natriuretic Peptide 5778 pg/mL (0-125) Total Protein 4.7 G/DL (6.4-8.2) Albumin 1.5 G/DL (3.4-5.0) Globulin 3.2 g/dL Albumin/Globulin Ratio 0.5 (1.0-2.7) Test 05/27/19 07:27 05/28/19 04:30 05/28/19 09:00 05/28/19 20:00 Arterial Blood pH 7.250 (7.350-7.450) Arterial Blood Partial Pressure CO2 60.5 mmHg (35.0-45.0) Arterial Blood Partial Pressure O2 69.0 mmHg (75.0-100.0) Arterial Blood HCO3 25.9 mmol/L (22.0-26.0) Arterial Blood Oxygen Saturation 93.7 % (95-100) Arterial Blood Base Excess -1.7 (-2-2) Koby Test Positive White Blood Count 9.9 K/UL (4.8-10.8) Red Blood Count 2.54 M/UL (4.70-6.10) Hemoglobin 7.6 G/DL (14.2-18.0) Hematocrit 23.8 % (42.0-52.0) Mean Corpuscular Volume 94 FL (80-99) Mean Corpuscular Hemoglobin 29.9 PG (27.0-31.0) Mean Corpuscular Hemoglobin Concent 31.9 G/DL (32.0-36.0) Red Cell Distribution Width 16.0 % (11.6-14.8) Platelet Count 179 K/UL (150-450) Mean Platelet Volume 5.3 FL (6.5-10.1) Neutrophils (%) (Auto) % (45.0-75.0) Lymphocytes (%) (Auto) % (20.0-45.0) Monocytes (%) (Auto) % (1.0-10.0) Eosinophils (%) (Auto) % (0.0-3.0) Basophils (%) (Auto) % (0.0-2.0) Differential Total Cells Counted 100 Neutrophils % (Manual) 91 % (45-75) Lymphocytes % (Manual) 5 % (20-45) Monocytes % (Manual) 4 % (1-10) Eosinophils % (Manual) 0 % (0-3) Basophils % (Manual) 0 % (0-2) Band Neutrophils 0 % (0-8) Platelet Estimate Adequate Platelet Morphology Normal Anisocytosis 1+ Sodium Level 138 MMOL/L (136-145) Potassium Level 4.4 MMOL/L (3.5-5.1) Chloride Level 108 MMOL/L (98-107) Carbon Dioxide Level 22 MMOL/L (21-32) Anion Gap 8 mmol/L (5-15) Blood Urea Nitrogen 67 mg/dL (7-18) Creatinine 3.5 MG/DL (0.55-1.30) Estimat Glomerular Filtration Rate mL/min (>60) Glucose Level 106 MG/DL (74-106) Uric Acid 5.9 MG/DL (2.6-7.2) Calcium Level 7.2 MG/DL (8.5-10.1) Phosphorus Level 4.7 MG/DL (2.5-4.9) Magnesium Level 1.9 MG/DL (1.8-2.4) Total Bilirubin 0.4 MG/DL (0.2-1.0) Gamma Glutamyl Transpeptidase 30 U/L (5-85) Aspartate Amino Transf (AST/SGOT) 33 U/L (15-37) Alanine Aminotransferase (ALT/SGPT) 25 U/L (12-78) Alkaline Phosphatase 64 U/L (46-116) Ammonia 20 umol/L (11-32) Total Creatine Kinase 109 U/L (26-308) Troponin I 0.205 ng/mL (0.000-0.056) C-Reactive Protein, Quantitative 20.9 mg/dL (0.00-0.90) Pro-B-Type Natriuretic Peptide 7475 pg/mL (0-125) Total Protein 4.9 G/DL (6.4-8.2) Albumin 1.8 G/DL (3.4-5.0) Globulin 3.1 g/dL Albumin/Globulin Ratio 0.6 (1.0-2.7) Random Vancomycin Level 29.9 ug/mL Vancomycin Level Trough 31.4 ug/mL (5.0-12.0) Test 05/29/19 03:20 White Blood Count 7.9 K/UL (4.8-10.8) Red Blood Count 2.62 M/UL (4.70-6.10) Hemoglobin 8.0 G/DL (14.2-18.0) Hematocrit 24.2 % (42.0-52.0) Mean Corpuscular Volume 92 FL (80-99) Mean Corpuscular Hemoglobin 30.3 PG (27.0-31.0) Mean Corpuscular Hemoglobin Concent 32.9 G/DL (32.0-36.0) Red Cell Distribution Width 15.7 % (11.6-14.8) Platelet Count 160 K/UL (150-450) Mean Platelet Volume 4.8 FL (6.5-10.1) Neutrophils (%) (Auto) % (45.0-75.0) Lymphocytes (%) (Auto) % (20.0-45.0) Monocytes (%) (Auto) % (1.0-10.0) Eosinophils (%) (Auto) % (0.0-3.0) Basophils (%) (Auto) % (0.0-2.0) Differential Total Cells Counted 100 Neutrophils % (Manual) 92 % (45-75) Lymphocytes % (Manual) 3 % (20-45) Monocytes % (Manual) 5 % (1-10) Eosinophils % (Manual) 0 % (0-3) Basophils % (Manual) 0 % (0-2) Band Neutrophils 0 % (0-8) Platelet Estimate Adequate Platelet Morphology Normal Anisocytosis 1+ Sodium Level 140 MMOL/L (136-145) Potassium Level 4.4 MMOL/L (3.5-5.1) Chloride Level 109 MMOL/L (98-107) Carbon Dioxide Level 22 MMOL/L (21-32) Anion Gap 9 mmol/L (5-15) Blood Urea Nitrogen 76 mg/dL (7-18) Creatinine 3.9 MG/DL (0.55-1.30) Estimat Glomerular Filtration Rate mL/min (>60) Glucose Level 124 MG/DL (74-106) Uric Acid 6.4 MG/DL (2.6-7.2) Calcium Level 7.2 MG/DL (8.5-10.1) Phosphorus Level 5.0 MG/DL (2.5-4.9) Magnesium Level 2.0 MG/DL (1.8-2.4) Total Bilirubin 0.4 MG/DL (0.2-1.0) Aspartate Amino Transf (AST/SGOT) 30 U/L (15-37) Alanine Aminotransferase (ALT/SGPT) 22 U/L (12-78) Alkaline Phosphatase 57 U/L (46-116) Troponin I 0.152 ng/mL (0.000-0.056) C-Reactive Protein, Quantitative 23.8 mg/dL (0.00-0.90) Pro-B-Type Natriuretic Peptide 6733 pg/mL (0-125) Total Protein 4.5 G/DL (6.4-8.2) Albumin 1.5 G/DL (3.4-5.0) Globulin 3.0 g/dL Albumin/Globulin Ratio 0.5 (1.0-2.7) Random Vancomycin Level 28.0 ug/mL Height (Feet): 5 Height (Inches): 7.00 Weight (Pounds): 185 Objective PE: Vitals: reviewed General Appearance: NAD HEENT: normocephalic, atraumatic++ ngt Neck: non-tender, normal alignment Respiratory/Chest: VENT++ Cardiovascular/Chest: normal peripheral pulses, normal rate Abdomen: normal bowel sounds, soft, nontender Extremities: normal range of motion ++ right arm swelling Suleman Addison MD May 29, 2019 08:33
[2019-05-29] MEDS: Pantoprazole Inj IVP SCH ×2 (08:34→20:55)
[2019-05-29] MEDS: Midodrine 10mg tab ORAL SCH ×3 (08:34→17:30)
[2019-05-29] MEDS: Docusate 100mg/10ml Liq NG SCH ×3 (08:34→17:30)
[2019-05-29] MEDS: Eliquis 2.5mg tablet ORAL SCH ×2 (08:34→17:30)
--- NOTE | 2019-05-29 08:42 | Nephrology Progress Note ---
Assessment/Plan Problem List: (1) Renal failure (ARF), acute on chronic Assessment: Cr rising (2) Cellulitis of upper extremity (3) A-fib (4) Pneumonia (5) UTI (urinary tract infection) (6) Anemia Assessment: worsened (7) Hypothyroidism Assessment - KIMO on CKD - Urinary tract infection. - Anemia- - Dehydration. - Cellulitis of Upper extremity - HTN Plan in ICU intubated on pressors BP meds and Mind altering meds discontinued start midodrine check vanco levels - hold vanco doses previously: Per cardiology Anemia kumari- Avoid Nephrotoxics Per ID Allow CHANDA inhibitor to continue as long as renal function does not worsen. PICC line has been removed. CXR: Increased right pleural effusion and similar left pleural effusion. Increased interstitial and hazy opacities throughout the lungs. Subjective ROS Limited/Unobtainable: Yes Objective Objective Last 24 Hour Vital Signs Date Time Temp Pulse Resp B/P (MAP) Pulse Ox O2 Delivery O2 Flow Rate FiO2 05/29/19 08:30 76 22 125/58 (80) 93 05/29/19 08:00 60 05/29/19 08:00 99.0 67 20 136/52 (80) 93 05/29/19 07:30 70 17 126/41 (69) 92 05/29/19 07:11 76 17 96 Mechanical Ventilator 8.0 60 05/29/19 07:08 72 21 60 05/29/19 07:00 75 21 126/41 (69) 92 05/29/19 06:30 76 21 139/49 (79) 92 05/29/19 06:24 100/55 05/29/19 06:00 140/55 05/29/19 06:00 77 21 119/43 (68) 93 05/29/19 05:30 67 19 107/47 (67) 98 05/29/19 05:30 75 20 60 05/29/19 05:00 63 13 96/36 (56) 98 05/29/19 05:00 94/38 05/29/19 04:45 88/38 05/29/19 04:30 63 15 93/38 (56) 97 05/29/19 04:00 65 05/29/19 04:00 63 20 95/39 (57) 96 05/29/19 04:00 87/41 05/29/19 04:00 Mechanical Ventilator 05/29/19 04:00 69 05/29/19 03:30 80 20 70 05/29/19 03:30 71 21 99/41 (60) 95 05/29/19 03:00 101/39 05/29/19 03:00 75 19 105/47 (66) 94 05/29/19 02:30 78 21 106/41 (62) 94 05/29/19 02:00 79 19 100/49 (66) 94 05/29/19 02:00 112/42 05/29/19 01:30 82 19 110/40 (63) 94 05/29/19 01:30 118/60 05/29/19 01:21 85 19 70 05/29/19 01:00 85 15 134/48 (76) 97 05/29/19 00:42 119/48 05/29/19 00:30 62 18 119/48 (71) 97 05/29/19 00:00 65 05/29/19 00:00 98.8 65 18 119/44 (69) 97 05/29/19 00:00 Mechanical Ventilator 05/29/19 00:00 65 05/29/19 00:00 120/45 05/28/19 23:30 69 18 70 05/28/19 23:30 65 19 126/51 (76) 97 05/28/19 23:00 127/48 05/28/19 23:00 73 19 128/45 (72) 98 05/28/19 22:30 76 19 135/46 (75) 97 05/28/19 22:00 49 21 115/51 (72) 96 05/28/19 22:00 139/66 05/28/19 21:30 50 22 70 05/28/19 21:30 48 21 118/40 (66) 96 05/28/19 21:00 52 27 124/48 (73) 95 05/28/19 21:00 123/42 05/28/19 20:46 90/50 05/28/19 20:30 52 22 126/51 (76) 94 05/28/19 20:00 98.4 88 21 126/54 (78) 96 05/28/19 20:00 53 05/28/19 20:00 109/42 05/28/19 20:00 65 05/28/19 20:00 Mechanical Ventilator 05/28/19 19:45 73 14 114/46 (68) 96 05/28/19 19:30 136 20 128/61 (83) 97 05/28/19 19:30 75 20 70 05/28/19 19:00 129 11 111/64 (80) 100 05/28/19 19:00 111/44 05/28/19 18:30 167 22 115/64 (81) 99 05/28/19 18:00 131/38 05/28/19 18:00 73 17 131/38 (69) 99 05/28/19 17:30 72 13 130/38 (68) 99 05/28/19 17:19 66 16 100 05/28/19 17:00 64 15 120/40 (66) 100 05/28/19 16:53 124/42 05/28/19 16:52 124/41 05/28/19 16:30 72 16 85/40 (55) 100 05/28/19 16:09 99.8 05/28/19 16:00 99.8 05/28/19 16:00 85 05/28/19 16:00 Mechanical Ventilator 05/28/19 16:00 98/48 05/28/19 16:00 80 16 92/38 (56) 100 05/28/19 15:30 100 05/28/19 15:30 93 20 119/44 (69) 93 05/28/19 15:29 90 19 100 05/28/19 15:00 93 21 123/41 (68) 93 05/28/19 15:00 123/41 05/28/19 14:30 93 20 111/45 (67) 93 05/28/19 14:00 91 18 114/38 (63) 94 05/28/19 14:00 113/48 05/28/19 13:31 83 20 60 05/28/19 13:30 88 21 121/39 (66) 93 05/28/19 13:00 121/39 05/28/19 13:00 89 18 122/43 (69) 94 05/28/19 12:30 83 17 110/41 (64) 95 05/28/19 12:00 120/39 05/28/19 12:00 99.9 89 21 120/39 (66) 93 05/28/19 12:00 88 1/1/20 12:00 Mechanical Ventilator 05/28/19 12:00 60 05/28/19 11:30 77 18 126/43 (70) 93 05/28/19 11:30 75 20 60 05/28/19 11:00 130/43 05/28/19 11:00 85 20 130/43 (72) 94 05/28/19 10:30 88 22 124/70 (88) 92 05/28/19 10:15 103/43 05/28/19 10:00 112/52 05/28/19 10:00 158 20 112/52 (72) 94 05/28/19 09:30 71 16 103/33 (56) 95 05/28/19 09:16 67 19 60 05/28/19 09:00 68 19 114/42 (66) 93 05/28/19 09:00 114/42 Intake and Output 05/28/19 05/29/19 19:00 07:00 Intake Total 1552.0 ml 1812.5 ml Output Total 260 ml 260 ml Balance 1292.0 ml 1552.5 ml Free Water 0 ml IV Total 1522.0 ml 1512.5 ml Tube Feeding 0 ml 0 ml Blood Product 30 ml 300 ml Output Urine Total 260 ml 260 ml # Bowel Movements 1 2 Current Medications Medications (Trade) Dose Ordered Sig/Phillip Route PRN Reason Start Time Stop Time Status Last Admin Dose Admin Acetaminophen (Tylenol) 500 mg Q4H PRN GT Mild Pain/Temp > 100.5 05/27/19 07:45 06/19/19 20:29 05/28/19 15:39 Amiodarone HCl (Cordarone) 200 mg DAILY ORAL 05/26/19 09:00 06/21/19 20:59 05/28/19 15:38 Apixaban (Eliquis) 2.5 mg BID ORAL 05/26/19 09:00 06/25/19 08:59 05/29/19 08:34 Chlorhexidine Gluconate (Reina-Hex 2%) 1 applic DAILY@1999 TOPIC 05/27/19 20:00 06/26/19 19:59 05/28/19 20:44 Docusate Sodium (Colace) 100 mg TID NG 05/27/19 09:00 06/20/19 08:59 05/29/19 08:34 Midodrine (Pro-Amatine) 10 mg THREE TIMES A DAY ORAL 05/28/19 14:45 06/27/19 14:44 05/29/19 08:34 Norepinephrine Bitartrate 4 mg/ Dextrose 250 ml @ 0 mls/hr Q24H IV 05/27/19 00:30 06/26/19 00:29 05/29/19 06:24 Pantoprazole (Protonix) 40 mg EVERY 12 HOURS IVP 05/27/19 10:45 06/26/19 10:44 05/29/19 08:34 Piperacillin Sod/ Tazobactam Sod 3.375 gm/Sodium Chloride 110 ml @ 27.5 mls/hr Q12H IVPB 05/27/19 11:30 06/03/19 11:29 05/28/19 23:46 Sodium Chloride 1,000 ml @ 75 mls/hr [id number] IV 05/27/19 10:45 06/26/19 10:44 05/29/19 06:25 Laboratory Tests 05/28/19 09:00: Vancomycin Level Trough 31.4H 05/28/19 20:00: Stool Occult Blood [Pending] 05/29/19 03:20: White Blood Count 7.9, Red Blood Count 2.62L, Hemoglobin 8.0L, Hematocrit 24.2L , Mean Corpuscular Volume 92, Mean Corpuscular Hemoglobin 30.3, Mean Corpuscular Hemoglobin Concent 32.9, Red Cell Distribution Width 15.7H, Platelet Count 160, Mean Platelet Volume 4.8L, Neutrophils (%) (Auto) , Lymphocytes (%) (Auto) , Monocytes (%) (Auto) , Eosinophils (%) (Auto) , Basophils (%) (Auto) , Differential Total Cells Counted 100, Neutrophils % ( Manual) 92H, Lymphocytes % (Manual) 3L, Monocytes % (Manual) 5, Eosinophils % ( Manual) 0, Basophils % (Manual) 0, Band Neutrophils 0, Platelet Estimate Adequate, Platelet Morphology Normal, Anisocytosis 1+, Sodium Level 140, Potassium Level 4.4, Chloride Level 109H, Carbon Dioxide Level 22, Anion Gap 9, Blood Urea Nitrogen 76H, Creatinine 3.9H, Estimat Glomerular Filtration Rate , Glucose Level 124H, Uric Acid 6.4, Calcium Level 7.2L, Phosphorus Level 5.0H, Magnesium Level 2.0, Total Bilirubin 0.4, Aspartate Amino Transf (AST/SGOT) 30, Alanine Aminotransferase (ALT/SGPT) 22, Alkaline Phosphatase 57, Troponin I 0.152H, C-Reactive Protein, Quantitative 23.8H, Pro-B-Type Natriuretic Peptide 6733H, Total Protein 4.5L, Albumin 1.5L, Globulin 3.0, Albumin/Globulin Ratio 0.5L, Random Vancomycin Level 28.0 Height (Feet): 5 Height (Inches): 7.00 Weight (Pounds): 185 General Appearance: no apparent distress EENT: other - vented Cardiovascular: normal rate Respiratory/Chest: decreased breath sounds Abdomen: distended Reinier Mera MD May 29, 2019 08:42
--- NOTE | 2019-05-29 10:57 | Infectious Diseases Prog Note ---
Assessment/Plan Assessment/Plan 84 yo male with PMHx of HTN who was sent to the ED on 05/18/19 from his [facility] for possible picc line infection. Swelling around PICC line Minimal to no erythema and no purulent drainage Not likely to be infected Blood Cx 05/18/19 - NGTD PICC Tip Cx 05/18/19 - NGTD PICC line removed 05/18/19 No Leukocytosis No fever OM - Let foot On Vancomycin at nursing End date early May PNA on 8L NC CXR - Some LLL Atelectasis vs PNA, Nodules CT 05/20/19 - Bilateral upper lobe infiltrates worse on the right. Consider pneumonia. Bilateral pleural effusions moderate in size HTN PLAN - Start Daptomycin for OM End date per [facility] MD - 05/28/19 SP Vancomycin per pharmacy - Stopped for increasing Cr - Continue Zosyn #3 for probable PNA - 05/27/19 SP Levofloxacin #5 - Get OSH records for OM - Monitor CBC and Temps Thank you for this consult. [facility] will continue to follow the patient with you during this hospitalization. Subjective Allergies: Coded Allergies: No Known Allergies (Unverified , 05/18/19) Subjective On Vent 70% O2 Afebrile No Leukocytosis Objective Vital Signs Last 24 Hour Vital Signs Date Time Temp Pulse Resp B/P (MAP) Pulse Ox O2 Delivery O2 Flow Rate FiO2 05/29/19 10:30 74 22 155/48 (83) 94 05/29/19 10:00 73 22 147/51 (83) 93 05/29/19 10:00 147/51 05/29/19 09:30 76 23 102/41 (61) 94 05/29/19 09:00 132/43 05/29/19 09:00 71 18 132/43 (72) 94 05/29/19 08:42 76 23 70 05/29/19 08:30 76 22 125/58 (80) 93 05/29/19 08:00 136/52 05/29/19 08:00 60 05/29/19 08:00 Mechanical Ventilator 05/29/19 08:00 74 05/29/19 08:00 99.0 67 20 136/52 (80) 93 05/29/19 07:30 70 17 126/41 (69) 92 05/29/19 07:11 76 17 96 Mechanical Ventilator 8.0 60 1/2/20 07:08 72 21 60 05/29/19 07:00 126/41 05/29/19 07:00 75 21 126/41 (69) 92 05/29/19 06:30 76 21 139/49 (79) 92 05/29/19 06:24 100/55 05/29/19 06:00 140/55 05/29/19 06:00 77 21 119/43 (68) 93 05/29/19 05:30 67 19 107/47 (67) 98 05/29/19 05:30 75 20 60 05/29/19 05:00 63 13 96/36 (56) 98 05/29/19 05:00 94/38 05/29/19 04:45 88/38 05/29/19 04:30 63 15 93/38 (56) 97 05/29/19 04:00 65 05/29/19 04:00 63 20 95/39 (57) 96 05/29/19 04:00 87/41 05/29/19 04:00 Mechanical Ventilator 05/29/19 04:00 69 05/29/19 03:30 80 20 70 05/29/19 03:30 71 21 99/41 (60) 95 05/29/19 03:00 101/39 05/29/19 03:00 75 19 105/47 (66) 94 05/29/19 02:30 78 21 106/41 (62) 94 05/29/19 02:00 79 19 100/49 (66) 94 05/29/19 02:00 112/42 05/29/19 01:30 82 19 110/40 (63) 94 05/29/19 01:30 118/60 05/29/19 01:21 85 19 70 05/29/19 01:00 85 15 134/48 (76) 97 05/29/19 00:42 119/48 05/29/19 00:30 62 18 119/48 (71) 97 05/29/19 00:00 65 05/29/19 00:00 98.8 65 18 119/44 (69) 97 05/29/19 00:00 Mechanical Ventilator 05/29/19 00:00 65 05/29/19 00:00 120/45 05/28/19 23:30 69 18 70 05/28/19 23:30 65 19 126/51 (76) 97 05/28/19 23:00 127/48 05/28/19 23:00 73 19 128/45 (72) 98 05/28/19 22:30 76 19 135/46 (75) 97 05/28/19 22:00 49 21 115/51 (72) 96 05/28/19 22:00 139/66 05/28/19 21:30 50 22 70 05/28/19 21:30 48 21 118/40 (66) 96 05/28/19 21:00 52 27 124/48 (73) 95 05/28/19 21:00 123/42 05/28/19 20:46 90/50 05/28/19 20:30 52 22 126/51 (76) 94 05/28/19 20:00 98.4 88 21 126/54 (78) 96 05/28/19 20:00 53 05/28/19 20:00 109/42 05/28/19 20:00 65 05/28/19 20:00 Mechanical Ventilator 05/28/19 19:45 73 14 114/46 (68) 96 05/28/19 19:30 136 20 128/61 (83) 97 05/28/19 19:30 75 20 70 05/28/19 19:00 129 11 111/64 (80) 100 05/28/19 19:00 111/44 05/28/19 18:30 167 22 115/64 (81) 99 05/28/19 18:00 131/38 05/28/19 18:00 73 17 131/38 (69) 99 05/28/19 17:30 72 13 130/38 (68) 99 05/28/19 17:19 66 16 100 05/28/19 17:00 64 15 120/40 (66) 100 05/28/19 16:53 124/42 05/28/19 16:52 124/41 05/28/19 16:30 72 16 85/40 (55) 100 05/28/19 16:09 99.8 05/28/19 16:00 99.8 05/28/19 16:00 85 05/28/19 16:00 Mechanical Ventilator 05/28/19 16:00 98/48 05/28/19 16:00 80 16 92/38 (56) 100 05/28/19 15:30 100 05/28/19 15:30 93 20 119/44 (69) 93 05/28/19 15:29 90 19 100 05/28/19 15:00 93 21 123/41 (68) 93 05/28/19 15:00 123/41 05/28/19 14:30 93 20 111/45 (67) 93 05/28/19 14:00 91 18 114/38 (63) 94 05/28/19 14:00 113/48 05/28/19 13:31 83 20 60 05/28/19 13:30 88 21 121/39 (66) 93 05/28/19 13:00 121/39 05/28/19 13:00 89 18 122/43 (69) 94 05/28/19 12:30 83 17 110/41 (64) 95 05/28/19 12:00 120/39 05/28/19 12:00 99.9 89 21 120/39 (66) 93 05/28/19 12:00 88 05/28/19 12:00 Mechanical Ventilator 05/28/19 12:00 60 05/28/19 11:30 77 18 126/43 (70) 93 05/28/19 11:30 75 20 60 05/28/19 11:00 130/43 05/28/19 11:00 85 20 130/43 (72) 94 Height (Feet): 5 Height (Inches): 7.00 Weight (Pounds): 185 Objective Gen: NAD, Intubatd on vent HEENT: NCAT, MMM, EOMI LUNGS: Coarse B/L, Tight and wheezy CARDS: RRR, S1, S2 ABD: Soft, NT, ND Microbiology Date/Time Source Procedure Growth Status 05/27/19 17:00 Sputum Gram Stain - Final Resulted 05/27/19 17:00 Sputum Sputum Culture - Preliminary NORMAL UPPER RESPIRATORY ISHMAEL AT 24 ... Resulted Laboratory Tests Test 05/28/19 20:00 05/29/19 03:20 Stool Occult Blood Pending White Blood Count 7.9 K/UL (4.8-10.8) Red Blood Count 2.62 M/UL (4.70-6.10) L Hemoglobin 8.0 G/DL (14.2-18.0) L Hematocrit 24.2 % (42.0-52.0) L Mean Corpuscular Volume 92 FL (80-99) Mean Corpuscular Hemoglobin 30.3 PG (27.0-31.0) Mean Corpuscular Hemoglobin Concent 32.9 G/DL (32.0-36.0) Red Cell Distribution Width 15.7 % (11.6-14.8) H Platelet Count 160 K/UL (150-450) Mean Platelet Volume 4.8 FL (6.5-10.1) L Neutrophils (%) (Auto) % (45.0-75.0) Lymphocytes (%) (Auto) % (20.0-45.0) Monocytes (%) (Auto) % (1.0-10.0) Eosinophils (%) (Auto) % (0.0-3.0) Basophils (%) (Auto) % (0.0-2.0) Differential Total Cells Counted 100 Neutrophils % (Manual) 92 % (45-75) H Lymphocytes % (Manual) 3 % (20-45) L Monocytes % (Manual) 5 % (1-10) Eosinophils % (Manual) 0 % (0-3) Basophils % (Manual) 0 % (0-2) Band Neutrophils 0 % (0-8) Platelet Estimate Adequate Platelet Morphology Normal Anisocytosis 1+ Sodium Level 140 MMOL/L (136-145) Potassium Level 4.4 MMOL/L (3.5-5.1) Chloride Level 109 MMOL/L (98-107) H Carbon Dioxide Level 22 MMOL/L (21-32) Anion Gap 9 mmol/L (5-15) Blood Urea Nitrogen 76 mg/dL (7-18) H Creatinine 3.9 MG/DL (0.55-1.30) H Estimat Glomerular Filtration Rate mL/min (>60) Glucose Level 124 MG/DL (74-106) H Uric Acid 6.4 MG/DL (2.6-7.2) Calcium Level 7.2 MG/DL (8.5-10.1) L Phosphorus Level 5.0 MG/DL (2.5-4.9) H Magnesium Level 2.0 MG/DL (1.8-2.4) Total Bilirubin 0.4 MG/DL (0.2-1.0) Aspartate Amino Transf (AST/SGOT) 30 U/L (15-37) Alanine Aminotransferase (ALT/SGPT) 22 U/L (12-78) Alkaline Phosphatase 57 U/L (46-116) Troponin I 0.152 ng/mL (0.000-0.056) C-Reactive Protein, Quantitative 23.8 mg/dL (0.00-0.90) H Pro-B-Type Natriuretic Peptide 6733 pg/mL (0-125) H Total Protein 4.5 G/DL (6.4-8.2) L Albumin 1.5 G/DL (3.4-5.0) L Globulin 3.0 g/dL Albumin/Globulin Ratio 0.5 (1.0-2.7) L Random Vancomycin Level 28.0 ug/mL Current Medications Medications (Trade) Dose Ordered Sig/Phillip Route PRN Reason Start Time Stop Time Status Last Admin Dose Admin Acetaminophen (Tylenol) 500 mg Q4H PRN GT Mild Pain/Temp > 100.5 05/27/19 07:45 06/19/19 20:29 05/28/19 15:39 Amiodarone HCl (Cordarone) 200 mg DAILY ORAL 05/26/19 09:00 06/21/19 20:59 05/28/19 15:38 Apixaban (Eliquis) 2.5 mg BID ORAL 05/26/19 09:00 06/25/19 08:59 05/29/19 08:34 Chlorhexidine Gluconate (Reina-Hex 2%) 1 applic DAILY@2000 TOPIC 05/27/19 20:00 06/26/19 19:59 05/28/19 20:44 Docusate Sodium (Colace) 100 mg TID NG 05/27/19 09:00 06/20/19 08:59 05/29/19 08:34 Midodrine (Pro-Amatine) 10 mg THREE TIMES A DAY ORAL 05/28/19 14:45 06/27/19 14:44 05/29/19 08:34 Norepinephrine Bitartrate 4 mg/ Dextrose 250 ml @ 0 mls/hr Q24H IV 05/27/19 00:30 06/26/19 00:29 05/29/19 06:24 Pantoprazole (Protonix) 40 mg EVERY 12 HOURS IVP 05/27/19 10:45 06/26/19 10:44 05/29/19 08:34 Piperacillin Sod/ Tazobactam Sod 3.375 gm/Sodium Chloride 110 ml @ 27.5 mls/hr Q12H IVPB 05/27/19 11:30 06/03/19 11:29 05/28/19 23:46 Sodium Chloride 1,000 ml @ 75 mls/hr [id number] IV 05/27/19 10:45 06/26/19 10:44 05/29/19 06:25 Jimbo Dodd MD May 29, 2019 10:57
[2019-05-29 11:40] LABS: CREATINE KINASE 56 U/L (26-308)
--- NOTE | 2019-05-29 11:58 | GI Progress Note ---
Assessment/Plan Problems: (1) Anemia ICD Codes: D64.9 - Anemia, unspecified SNOMED: 378247173 (2) Dysphagia ICD Codes: R13.10 - Dysphagia, unspecified SNOMED: 19710008, 617246727 Status: unchanged Status Narrative Discussed with Dr. Lino. Assessment/Plan intubated in ICU NGTF on hold fu pulm fu labs poor prognosis The patient was seen and examined at bedside and all new and available data was reviewed in the patients chart. I agree with the above findings, impression and plan. (Patient seen earlier today. Signature stamp does not reflect patient encounter time.). - Valentino Lino MD Subjective Subjective limited Objective Last 24 Hour Vital Signs Date Time Temp Pulse Resp B/P (MAP) Pulse Ox O2 Delivery O2 Flow Rate FiO2 05/29/19 11:41 101/42 05/29/19 11:30 74 23 101/42 (61) 94 05/29/19 11:00 75 22 97/41 (59) 94 05/29/19 10:53 68 17 70 05/29/19 10:30 74 22 155/48 (83) 94 05/29/19 10:00 73 22 147/51 (83) 93 05/29/19 10:00 147/51 05/29/19 09:30 76 23 102/41 (61) 94 05/29/19 09:00 132/43 05/29/19 09:00 71 18 132/43 (72) 94 05/29/19 08:42 76 23 70 05/29/19 08:30 76 22 125/58 (80) 93 05/29/19 08:00 136/52 05/29/19 08:00 60 05/29/19 08:00 Mechanical Ventilator 05/29/19 08:00 74 05/29/19 08:00 99.0 67 20 136/52 (80) 93 05/29/19 07:30 70 17 126/41 (69) 92 05/29/19 07:11 76 17 96 Mechanical Ventilator 8.0 60 05/29/19 07:08 72 21 60 05/29/19 07:00 126/41 05/29/19 07:00 75 21 126/41 (69) 92 05/29/19 06:30 76 21 139/49 (79) 92 05/29/19 06:24 100/55 05/29/19 06:00 140/55 05/29/19 06:00 77 21 119/43 (68) 93 05/29/19 05:30 67 19 107/47 (67) 98 05/29/19 05:30 75 20 60 05/29/19 05:00 63 13 96/36 (56) 98 05/29/19 05:00 94/38 05/29/19 04:45 88/38 05/29/19 04:30 63 15 93/38 (56) 97 05/29/19 04:00 65 05/29/19 04:00 63 20 95/39 (57) 96 05/29/19 04:00 87/41 05/29/19 04:00 Mechanical Ventilator 05/29/19 04:00 69 05/29/19 03:30 80 20 70 05/29/19 03:30 71 21 99/41 (60) 95 05/29/19 03:00 101/39 05/29/19 03:00 75 19 105/47 (66) 94 05/29/19 02:30 78 21 106/41 (62) 94 05/29/19 02:00 79 19 100/49 (66) 94 05/29/19 02:00 112/42 05/29/19 01:30 82 19 110/40 (63) 94 05/29/19 01:30 118/60 05/29/19 01:21 85 19 70 05/29/19 01:00 85 15 134/48 (76) 97 05/29/19 00:42 119/48 05/29/19 00:30 62 18 119/48 (71) 97 05/29/19 00:00 65 05/29/19 00:00 98.8 65 18 119/44 (69) 97 05/29/19 00:00 Mechanical Ventilator 05/29/19 00:00 65 05/29/19 00:00 120/45 05/28/19 23:30 69 18 70 05/28/19 23:30 65 19 126/51 (76) 97 05/28/19 23:00 127/48 05/28/19 23:00 73 19 128/45 (72) 98 05/28/19 22:30 76 19 135/46 (75) 97 1/1/20 22:00 49 21 115/51 (72) 96 05/28/19 22:00 139/66 05/28/19 21:30 50 22 70 05/28/19 21:30 48 21 118/40 (66) 96 05/28/19 21:00 52 27 124/48 (73) 95 05/28/19 21:00 123/42 05/28/19 20:46 90/50 05/28/19 20:30 52 22 126/51 (76) 94 05/28/19 20:00 98.4 88 21 126/54 (78) 96 05/28/19 20:00 53 05/28/19 20:00 109/42 05/28/19 20:00 65 05/28/19 20:00 Mechanical Ventilator 05/28/19 19:45 73 14 114/46 (68) 96 05/28/19 19:30 136 20 128/61 (83) 97 05/28/19 19:30 75 20 70 05/28/19 19:00 129 11 111/64 (80) 100 05/28/19 19:00 111/44 05/28/19 18:30 167 22 115/64 (81) 99 05/28/19 18:00 131/38 05/28/19 18:00 73 17 131/38 (69) 99 05/28/19 17:30 72 13 130/38 (68) 99 05/28/19 17:19 66 16 100 05/28/19 17:00 64 15 120/40 (66) 100 05/28/19 16:53 124/42 05/28/19 16:52 124/41 05/28/19 16:30 72 16 85/40 (55) 100 05/28/19 16:09 99.8 05/28/19 16:00 99.8 05/28/19 16:00 85 05/28/19 16:00 Mechanical Ventilator 05/28/19 16:00 98/48 05/28/19 16:00 80 16 92/38 (56) 100 05/28/19 15:30 100 05/28/19 15:30 93 20 119/44 (69) 93 05/28/19 15:29 90 19 100 05/28/19 15:00 93 21 123/41 (68) 93 05/28/19 15:00 123/41 05/28/19 14:30 93 20 111/45 (67) 93 05/28/19 14:00 91 18 114/38 (63) 94 05/28/19 14:00 113/48 05/28/19 13:31 83 20 60 05/28/19 13:30 88 21 121/39 (66) 93 05/28/19 13:00 121/39 05/28/19 13:00 89 18 122/43 (69) 94 05/28/19 12:30 83 17 110/41 (64) 95 05/28/19 12:00 120/39 05/28/19 12:00 99.9 89 21 120/39 (66) 93 05/28/19 12:00 88 05/28/19 12:00 Mechanical Ventilator 05/28/19 12:00 60 Intake and Output 05/28/19 05/29/19 19:00 07:00 Intake Total 1552.0 ml 1882.5 ml Output Total 260 ml 260 ml Balance 1292.0 ml 1622.5 ml Free Water 0 ml IV Total 1522.0 ml 1582.5 ml Tube Feeding 0 ml 0 ml Blood Product 30 ml 300 ml Output Urine Total 260 ml 260 ml # Bowel Movements 1 2 Laboratory Tests Test 05/28/19 20:00 05/29/19 03:20 Stool Occult Blood Pending White Blood Count 7.9 K/UL (4.8-10.8) Red Blood Count 2.62 M/UL (4.70-6.10) L Hemoglobin 8.0 G/DL (14.2-18.0) L Hematocrit 24.2 % (42.0-52.0) L Mean Corpuscular Volume 92 FL (80-99) Mean Corpuscular Hemoglobin 30.3 PG (27.0-31.0) Mean Corpuscular Hemoglobin Concent 32.9 G/DL (32.0-36.0) Red Cell Distribution Width 15.7 % (11.6-14.8) H Platelet Count 160 K/UL (150-450) Mean Platelet Volume 4.8 FL (6.5-10.1) L Neutrophils (%) (Auto) % (45.0-75.0) Lymphocytes (%) (Auto) % (20.0-45.0) Monocytes (%) (Auto) % (1.0-10.0) Eosinophils (%) (Auto) % (0.0-3.0) Basophils (%) (Auto) % (0.0-2.0) Differential Total Cells Counted 100 Neutrophils % (Manual) 92 % (45-75) H Lymphocytes % (Manual) 3 % (20-45) L Monocytes % (Manual) 5 % (1-10) Eosinophils % (Manual) 0 % (0-3) Basophils % (Manual) 0 % (0-2) Band Neutrophils 0 % (0-8) Platelet Estimate Adequate Platelet Morphology Normal Anisocytosis 1+ Sodium Level 140 MMOL/L (136-145) Potassium Level 4.4 MMOL/L (3.5-5.1) Chloride Level 109 MMOL/L (98-107) H Carbon Dioxide Level 22 MMOL/L (21-32) Anion Gap 9 mmol/L (5-15) Blood Urea Nitrogen 76 mg/dL (7-18) H Creatinine 3.9 MG/DL (0.55-1.30) H Estimat Glomerular Filtration Rate mL/min (>60) Glucose Level 124 MG/DL (74-106) H Uric Acid 6.4 MG/DL (2.6-7.2) Calcium Level 7.2 MG/DL (8.5-10.1) L Phosphorus Level 5.0 MG/DL (2.5-4.9) H Magnesium Level 2.0 MG/DL (1.8-2.4) Total Bilirubin 0.4 MG/DL (0.2-1.0) Aspartate Amino Transf (AST/SGOT) 30 U/L (15-37) Alanine Aminotransferase (ALT/SGPT) 22 U/L (12-78) Alkaline Phosphatase 57 U/L (46-116) Total Creatine Kinase 56 U/L (26-308) Troponin I 0.152 ng/mL (0.000-0.056) C-Reactive Protein, Quantitative 23.8 mg/dL (0.00-0.90) H Pro-B-Type Natriuretic Peptide 6733 pg/mL (0-125) H Total Protein 4.5 G/DL (6.4-8.2) L Albumin 1.5 G/DL (3.4-5.0) L Globulin 3.0 g/dL Albumin/Globulin Ratio 0.5 (1.0-2.7) L Random Vancomycin Level 28.0 ug/mL Height (Feet): 5 Height (Inches): 7.00 Weight (Pounds): 185 General Appearance: no apparent distress, alert Cardiovascular: normal rate Respiratory/Chest: normal breath sounds, no respiratory distress Abdominal Exam: normal bowel sounds, non tender, soft, other - NGT Thais Aranda NP May 29, 2019 11:58
[2019-05-29] MEDS: Piperacillin/Tazobactam 3.375 GM in NS 110 ML IVPB SCH ×2 (12:35→23:23)
[2019-05-29] MEDS: DAPTOmycin 500 MG in NS 55 ML IV SCH (13:57)
--- NOTE | 2019-05-29 13:58 | Surgery Progress Note ---
Surgery Progress Note Subjective Additional Comments ill in ICU renal function declining non responsive on vent support trop noted prognosis guarded Objective Last 24 Hour Vital Signs Date Time Temp Pulse Resp B/P (MAP) Pulse Ox O2 Delivery O2 Flow Rate FiO2 05/29/19 12:45 71 22 70 05/29/19 12:30 68 19 79/33 (48) 97 05/29/19 12:30 79/33 05/29/19 12:00 Mechanical Ventilator 05/29/19 12:00 100/42 05/29/19 12:00 84 24 100/42 (61) 92 05/29/19 12:00 70 05/29/19 11:41 101/42 05/29/19 11:30 74 23 101/42 (61) 94 05/29/19 11:00 75 22 97/41 (59) 94 05/29/19 10:53 68 17 70 05/29/19 10:30 74 22 155/48 (83) 94 05/29/19 10:00 73 22 147/51 (83) 93 05/29/19 10:00 147/51 05/29/19 09:30 76 23 102/41 (61) 94 05/29/19 09:00 132/43 05/29/19 09:00 71 18 132/43 (72) 94 05/29/19 08:42 76 23 70 05/29/19 08:30 76 22 125/58 (80) 93 05/29/19 08:00 136/52 05/29/19 08:00 60 05/29/19 08:00 Mechanical Ventilator 05/29/19 08:00 74 05/29/19 08:00 99.0 67 20 136/52 (80) 93 05/29/19 07:30 70 17 126/41 (69) 92 05/29/19 07:11 76 17 96 Mechanical Ventilator 8.0 60 05/29/19 07:08 72 21 60 05/29/19 07:00 126/41 05/29/19 07:00 75 21 126/41 (69) 92 05/29/19 06:30 76 21 139/49 (79) 92 05/29/19 06:24 100/55 05/29/19 06:00 140/55 05/29/19 06:00 77 21 119/43 (68) 93 1/2/20 05:30 67 19 107/47 (67) 98 05/29/19 05:30 75 20 60 05/29/19 05:00 63 13 96/36 (56) 98 05/29/19 05:00 94/38 05/29/19 04:45 88/38 05/29/19 04:30 63 15 93/38 (56) 97 05/29/19 04:00 65 05/29/19 04:00 63 20 95/39 (57) 96 05/29/19 04:00 87/41 05/29/19 04:00 Mechanical Ventilator 05/29/19 04:00 69 05/29/19 03:30 80 20 70 05/29/19 03:30 71 21 99/41 (60) 95 05/29/19 03:00 101/39 05/29/19 03:00 75 19 105/47 (66) 94 05/29/19 02:30 78 21 106/41 (62) 94 05/29/19 02:00 79 19 100/49 (66) 94 05/29/19 02:00 112/42 05/29/19 01:30 82 19 110/40 (63) 94 05/29/19 01:30 118/60 05/29/19 01:21 85 19 70 05/29/19 01:00 85 15 134/48 (76) 97 05/29/19 00:42 119/48 05/29/19 00:30 62 18 119/48 (71) 97 05/29/19 00:00 65 05/29/19 00:00 98.8 65 18 119/44 (69) 97 05/29/19 00:00 Mechanical Ventilator 05/29/19 00:00 65 05/29/19 00:00 120/45 05/28/19 23:30 69 18 70 05/28/19 23:30 65 19 126/51 (76) 97 05/28/19 23:00 127/48 05/28/19 23:00 73 19 128/45 (72) 98 05/28/19 22:30 76 19 135/46 (75) 97 05/28/19 22:00 49 21 115/51 (72) 96 05/28/19 22:00 139/66 05/28/19 21:30 50 22 70 05/28/19 21:30 48 21 118/40 (66) 96 05/28/19 21:00 52 27 124/48 (73) 95 05/28/19 21:00 123/42 05/28/19 20:46 90/50 05/28/19 20:30 52 22 126/51 (76) 94 05/28/19 20:00 98.4 88 21 126/54 (78) 96 05/28/19 20:00 53 05/28/19 20:00 109/42 05/28/19 20:00 65 05/28/19 20:00 Mechanical Ventilator 05/28/19 19:45 73 14 114/46 (68) 96 05/28/19 19:30 136 20 128/61 (83) 97 05/28/19 19:30 75 20 70 05/28/19 19:00 129 11 111/64 (80) 100 05/28/19 19:00 111/44 05/28/19 18:30 167 22 115/64 (81) 99 05/28/19 18:00 131/38 05/28/19 18:00 73 17 131/38 (69) 99 05/28/19 17:30 72 13 130/38 (68) 99 05/28/19 17:19 66 16 100 05/28/19 17:00 64 15 120/40 (66) 100 05/28/19 16:53 124/42 05/28/19 16:52 124/41 05/28/19 16:30 72 16 85/40 (55) 100 05/28/19 16:09 99.8 05/28/19 16:00 99.8 05/28/19 16:00 85 05/28/19 16:00 Mechanical Ventilator 05/28/19 16:00 98/48 05/28/19 16:00 80 16 92/38 (56) 100 05/28/19 15:30 100 05/28/19 15:30 93 20 119/44 (69) 93 05/28/19 15:29 90 19 100 05/28/19 15:00 93 21 123/41 (68) 93 05/28/19 15:00 123/41 05/28/19 14:30 93 20 111/45 (67) 93 05/28/19 14:00 91 18 114/38 (63) 94 05/28/19 14:00 113/48 I&O Intake and Output 05/28/19 05/29/19 18:59 06:59 Intake Total 1514.5 ml 1962.5 ml Output Total 270 ml 250 ml Balance 1244.5 ml 1712.5 ml Free Water 0 ml IV Total 1484.5 ml 1662.5 ml Tube Feeding 0 ml 0 ml Blood Product 30 ml 300 ml Output Urine Total 270 ml 250 ml # Bowel Movements 3 Dressing: saturated Wound: other Drains: other Cardiovascular: RSR, other Respiratory: decreased breath sounds, other Abdomen: soft, present bowel sounds, other, non-distended Extremities: no cyanosis, other - cast Laboratory Tests Test 05/28/19 20:00 05/29/19 03:20 Stool Occult Blood Positive (NEGATIVE) White Blood Count 7.9 K/UL (4.8-10.8) Red Blood Count 2.62 M/UL (4.70-6.10) L Hemoglobin 8.0 G/DL (14.2-18.0) L Hematocrit 24.2 % (42.0-52.0) L Mean Corpuscular Volume 92 FL (80-99) Mean Corpuscular Hemoglobin 30.3 PG (27.0-31.0) Mean Corpuscular Hemoglobin Concent 32.9 G/DL (32.0-36.0) Red Cell Distribution Width 15.7 % (11.6-14.8) H Platelet Count 160 K/UL (150-450) Mean Platelet Volume 4.8 FL (6.5-10.1) L Neutrophils (%) (Auto) % (45.0-75.0) Lymphocytes (%) (Auto) % (20.0-45.0) Monocytes (%) (Auto) % (1.0-10.0) Eosinophils (%) (Auto) % (0.0-3.0) Basophils (%) (Auto) % (0.0-2.0) Differential Total Cells Counted 100 Neutrophils % (Manual) 92 % (45-75) H Lymphocytes % (Manual) 3 % (20-45) L Monocytes % (Manual) 5 % (1-10) Eosinophils % (Manual) 0 % (0-3) Basophils % (Manual) 0 % (0-2) Band Neutrophils 0 % (0-8) Platelet Estimate Adequate Platelet Morphology Normal Anisocytosis 1+ Sodium Level 140 MMOL/L (136-145) Potassium Level 4.4 MMOL/L (3.5-5.1) Chloride Level 109 MMOL/L (98-107) H Carbon Dioxide Level 22 MMOL/L (21-32) Anion Gap 9 mmol/L (5-15) Blood Urea Nitrogen 76 mg/dL (7-18) H Creatinine 3.9 MG/DL (0.55-1.30) H Estimat Glomerular Filtration Rate mL/min (>60) Glucose Level 124 MG/DL (74-106) H Uric Acid 6.4 MG/DL (2.6-7.2) Calcium Level 7.2 MG/DL (8.5-10.1) L Phosphorus Level 5.0 MG/DL (2.5-4.9) H Magnesium Level 2.0 MG/DL (1.8-2.4) Total Bilirubin 0.4 MG/DL (0.2-1.0) Aspartate Amino Transf (AST/SGOT) 30 U/L (15-37) Alanine Aminotransferase (ALT/SGPT) 22 U/L (12-78) Alkaline Phosphatase 57 U/L (46-116) Total Creatine Kinase 56 U/L (26-308) Troponin I 0.152 ng/mL (0.000-0.056) C-Reactive Protein, Quantitative 23.8 mg/dL (0.00-0.90) H Pro-B-Type Natriuretic Peptide 6733 pg/mL (0-125) H Total Protein 4.5 G/DL (6.4-8.2) L Albumin 1.5 G/DL (3.4-5.0) L Globulin 3.0 g/dL Albumin/Globulin Ratio 0.5 (1.0-2.7) L Random Vancomycin Level 28.0 ug/mL Plan Problems: (1) Cellulitis of upper extremity Assessment & Plan: 84M with RUE cellulitis, edema, erythema. no drainage. has RUE picc line recommend removal of picc. removed at bedside by myself on 05/18. pressure held, hemostasis noted, dressings applied. cath tip sent for cultures DVT duplex studies with acute thrombus IV Abx as per ID UA pending Cx results keep RUE elevated on pillows okay for diet AM labs anticoagulation off load pressure for dti noted cellulitis and edema improved deteriorated intubated on vent support likely respiratory insufficiency labs ordered wean vent okay for tube feeds via ng - on hold currently as per GI will follow with recs thank you (2) Cellulitis Assessment & Plan: Pt presented on admission with reabsorbing blister lateral R heel. Base of injury indurated with delineated margins(L)4cm x (W)3cm.Non- blanching erythema Sacrum ,R and L buttocks(L)8.5cm x (W)9cm, with a partial thickness pressure injury noted to L buttocks. Base of wound is moist and viable (L)2.3cm x (W)3cm. Area around wound tender when minimally palpated. Pt noted to be wearing splint L foot. Per pt he fractured foot a few weeks ago. Splint removed to assess skin integrity. L heel and malleoli are pink and blanchable.Cavilon Skin Barrier applied to L heel and malleoli and each area covered with Optifoam drsg. Splint reapplied. No other skin concerns noted. unchanged Tx.Plan: Apply Moisture Barrier to Buttocks. Cover with Optifoam drsg. Changee very 3 days and prn. Apply Cavilon Skin Barrier to both heels. Cover each heel with Optifoam drsg. Change every 7 days and prn APM/SCOOBY Mattress overlay. Reposition at least every 2hours or as tolerated. Off-load heels with pillow. Bennett Logan May 29, 2019 13:58
[2019-05-29] MEDS ORDERED: Tubing IV Blood Pump IV ONE (14:53)
[2019-05-29] MEDS: Dyna-Hex 2% Top Sol 2oz TOPIC SCH (20:12)
--- NOTE | 2019-05-29 22:15 | General Progress Note ---
Assessment/Plan Problem List: (1) SOB (shortness of breath) ICD Codes: R06.02 - Shortness of breath SNOMED: 487637390 (2) Cellulitis ICD Codes: L03.90 - Cellulitis, unspecified SNOMED: 948786116 (3) Cellulitis of upper extremity ICD Codes: L03.119 - Cellulitis of unspecified part of limb SNOMED: 314466583 Qualifiers: Qualified Codes: L03.113 - Cellulitis of right upper limb (4) Renal insufficiency ICD Codes: N28.9 - Disorder of kidney and ureter, unspecified SNOMED: 714195932, 384639068 (5) Renal failure (ARF), acute on chronic ICD Codes: N17.9 - Acute kidney failure, unspecified; N18.9 - Chronic kidney disease, unspecified SNOMED: 492972909 (6) Anemia ICD Codes: D64.9 - Anemia, unspecified SNOMED: 300940351 (7) Hypothyroidism ICD Codes: E03.9 - Hypothyroidism, unspecified SNOMED: 10642405 (8) UTI (urinary tract infection) ICD Codes: N39.0 - Urinary tract infection, site not specified SNOMED: 61684918 Status: unchanged Assessment/Plan: getting worse edema malnutrition afebrile lethargic critical condition on high volume of oxygen intubated chf exac pna Subjective ROS Limited/Unobtainable: Yes Allergies: Coded Allergies: No Known Allergies (Unverified , 05/18/19) Objective Last 24 Hour Vital Signs Date Time Temp Pulse Resp B/P (MAP) Pulse Ox O2 Delivery O2 Flow Rate FiO2 05/29/19 21:30 59 13 109/40 (63) 97 05/29/19 21:00 64 11 102/42 (62) 97 05/29/19 20:51 63 18 70 05/29/19 20:30 69 15 116/49 (71) 95 05/29/19 20:03 122/51 05/29/19 20:00 99.0 74 19 122/51 (74) 93 05/29/19 20:00 Mechanical Ventilator 05/29/19 19:30 69 16 119/46 (70) 95 05/29/19 19:30 69 17 70 05/29/19 19:00 70 14 112/37 (62) 97 05/29/19 19:00 112/37 1/2/20 19:00 112/37 05/29/19 19:00 112/37 05/29/19 19:00 112/37 05/29/19 18:30 99 25 173/62 (99) 88 05/29/19 18:00 112/51 05/29/19 18:00 59 25 153/51 (85) 91 05/29/19 17:30 59 22 122/42 (68) 93 05/29/19 17:05 78 22 70 05/29/19 17:00 74 22 129/55 (79) 92 05/29/19 17:00 129/55 05/29/19 16:30 102 21 135/56 (82) 94 05/29/19 16:00 61 20 118/47 (70) 92 05/29/19 16:00 70 05/29/19 16:00 76 05/29/19 16:00 Mechanical Ventilator 05/29/19 15:30 56 23 122/38 (66) 95 05/29/19 15:17 91 21 70 05/29/19 15:00 138/40 05/29/19 15:00 70 21 138/40 (72) 95 05/29/19 14:30 60 17 121/44 (69) 95 05/29/19 14:00 59 18 131/49 (76) 97 05/29/19 14:00 131/49 05/29/19 13:45 75 20 107/45 (65) 95 05/29/19 13:30 79 22 125/47 (73) 94 05/29/19 13:15 78 23 116/49 (71) 94 05/29/19 13:00 75 23 143/46 (78) 94 05/29/19 13:00 143/46 05/29/19 12:45 69 20 138/70 (92) 94 05/29/19 12:45 71 22 70 05/29/19 12:30 68 19 79/33 (48) 97 05/29/19 12:30 79/33 05/29/19 12:15 67 19 81/35 (50) 96 05/29/19 12:00 Mechanical Ventilator 05/29/19 12:00 87 05/29/19 12:00 99.6 05/29/19 12:00 100/42 05/29/19 12:00 84 24 100/42 (61) 92 05/29/19 12:00 70 05/29/19 11:41 101/42 05/29/19 11:40 101/42 05/29/19 11:30 74 23 101/42 (61) 94 05/29/19 11:00 75 22 97/41 (59) 94 05/29/19 11:00 97/41 05/29/19 10:53 68 17 70 05/29/19 10:30 74 22 155/48 (83) 94 05/29/19 10:00 73 22 147/51 (83) 93 05/29/19 10:00 147/51 05/29/19 09:30 76 23 102/41 (61) 94 05/29/19 09:00 132/43 05/29/19 09:00 71 18 132/43 (72) 94 05/29/19 08:42 76 23 70 05/29/19 08:30 76 22 125/58 (80) 93 05/29/19 08:00 136/52 05/29/19 08:00 60 05/29/19 08:00 Mechanical Ventilator 05/29/19 08:00 74 05/29/19 08:00 99.0 67 20 136/52 (80) 93 05/29/19 07:30 70 17 126/41 (69) 92 05/29/19 07:11 76 17 96 Mechanical Ventilator 8.0 60 05/29/19 07:08 72 21 60 05/29/19 07:00 126/41 05/29/19 07:00 75 21 126/41 (69) 92 05/29/19 06:30 76 21 139/49 (79) 92 05/29/19 06:24 100/55 05/29/19 06:00 140/55 05/29/19 06:00 77 21 119/43 (68) 93 05/29/19 05:30 67 19 107/47 (67) 98 05/29/19 05:30 75 20 60 05/29/19 05:00 63 13 96/36 (56) 98 05/29/19 05:00 94/38 05/29/19 04:45 88/38 05/29/19 04:30 63 15 93/38 (56) 97 05/29/19 04:00 65 05/29/19 04:00 63 20 95/39 (57) 96 05/29/19 04:00 87/41 05/29/19 04:00 Mechanical Ventilator 05/29/19 04:00 69 05/29/19 03:30 80 20 70 05/29/19 03:30 71 21 99/41 (60) 95 05/29/19 03:00 101/39 05/29/19 03:00 75 19 105/47 (66) 94 05/29/19 02:30 78 21 106/41 (62) 94 05/29/19 02:00 79 19 100/49 (66) 94 05/29/19 02:00 112/42 05/29/19 01:30 82 19 110/40 (63) 94 05/29/19 01:30 118/60 05/29/19 01:21 85 19 70 05/29/19 01:00 85 15 134/48 (76) 97 05/29/19 00:42 119/48 05/29/19 00:30 62 18 119/48 (71) 97 05/29/19 00:00 65 05/29/19 00:00 98.8 65 18 119/44 (69) 97 05/29/19 00:00 Mechanical Ventilator 05/29/19 00:00 65 05/29/19 00:00 120/45 05/28/19 23:30 69 18 70 05/28/19 23:30 65 19 126/51 (76) 97 05/28/19 23:00 127/48 05/28/19 23:00 73 19 128/45 (72) 98 05/28/19 22:30 76 19 135/46 (75) 97 Intake and Output 05/28/19 05/29/19 19:00 07:00 Intake Total 1552.0 ml 1882.5 ml Output Total 260 ml 260 ml Balance 1292.0 ml 1622.5 ml Free Water 0 ml IV Total 1522.0 ml 1582.5 ml Tube Feeding 0 ml 0 ml Blood Product 30 ml 300 ml Output Urine Total 260 ml 260 ml # Bowel Movements 1 2 Laboratory Tests 05/29/19 03:20: White Blood Count 7.9, Red Blood Count 2.62L, Hemoglobin 8.0L, Hematocrit 24.2L , Mean Corpuscular Volume 92, Mean Corpuscular Hemoglobin 30.3, Mean Corpuscular Hemoglobin Concent 32.9, Red Cell Distribution Width 15.7H, Platelet Count 160, Mean Platelet Volume 4.8L, Neutrophils (%) (Auto) , Lymphocytes (%) (Auto) , Monocytes (%) (Auto) , Eosinophils (%) (Auto) , Basophils (%) (Auto) , Differential Total Cells Counted 100, Neutrophils % ( Manual) 92H, Lymphocytes % (Manual) 3L, Monocytes % (Manual) 5, Eosinophils % ( Manual) 0, Basophils % (Manual) 0, Band Neutrophils 0, Platelet Estimate Adequate, Platelet Morphology Normal, Anisocytosis 1+, Sodium Level 140, Potassium Level 4.4, Chloride Level 109H, Carbon Dioxide Level 22, Anion Gap 9, Blood Urea Nitrogen 76H, Creatinine 3.9H, Estimat Glomerular Filtration Rate , Glucose Level 124H, Uric Acid 6.4, Calcium Level 7.2L, Phosphorus Level 5.0H, Magnesium Level 2.0, Total Bilirubin 0.4, Aspartate Amino Transf (AST/SGOT) 30, Alanine Aminotransferase (ALT/SGPT) 22, Alkaline Phosphatase 57, Total Creatine Kinase 56, Troponin I 0.152H, C-Reactive Protein, Quantitative 23.8H, Pro-B- Type Natriuretic Peptide 6733H, Total Protein 4.5L, Albumin 1.5L, Globulin 3.0, Albumin/Globulin Ratio 0.5L, Random Vancomycin Level 28.0 Height (Feet): 5 Height (Inches): 7.00 Weight (Pounds): 185 Cardiovascular: regular rhythm Respiratory/Chest: rhonchi - bilaterally Abdomen: soft Joslyn Wiggins MD May 29, 2019 22:15
[2019-05-30] VITALS (53 sets, daily range): BP systolic 75–162; BP diastolic 27–105
[2019-05-30 05:56] LABS: HEMATOCRIT 28.7 % (42.0-52.0); HEMOGLOBIN 9.4 G/DL (14.2-18.0); MEAN CORPUSCULAR VOLUME 91 FL (80-99); PLATELET COUNT 218 K/UL (150-450); RED BLOOD COUNT 3.15 M/UL (4.70-6.10); RED CELL DISTRIBUTION WIDTH 16.2 % (11.6-14.8)
[2019-05-30 06:05] LABS: ALANINE AMINOTRANSFERASE 19 U/L (12-78); ALBUMIN 1.6 G/DL (3.4-5.0); ALBUMIN/GLOBULIN RATIO 0.5 (1.0-2.7); ALKALINE PHOSPHATASE 60 U/L (46-116); ANION GAP 11 mmol/L (5-15); ASPARTATE AMINO TRANSFERASE 31 U/L (15-37); BILIRUBIN,TOTAL 0.4 MG/DL (0.2-1.0); BLOOD UREA NITROGEN 77 mg/dL (7-18); CALCIUM 6.8 MG/DL (8.5-10.1); CARBON DIOXIDE 21 MMOL/L (21-32); CHLORIDE 107 MMOL/L (98-107); CREATININE 4.2 MG/DL (0.55-1.30); PHOSPHORUS 5.2 MG/DL (2.5-4.9); POTASSIUM 4.1 MMOL/L (3.5-5.1); SODIUM 139 MMOL/L (136-145)
--- NOTE | 2019-05-30 08:12 | Critical Care Progress Note ---
Assessment/Plan Assessment/Plan IMPRESSION AND PLAN: 1. Pneumonia. bilateral 2. Cellulitis. 3. History of COPD. 4. Hypertension. 5. Afib with RVR; rate controlled 6. Respiratory failure, acute 7. Hypoxemia, improved 8. Chronic renal failure 9. severe protein sabina malnutrition 10. chronic anemia PLAN vent support and taper rate as able consider wean when fio2 - still on 70% monitor oxygen needs; still high and abnormal cxr monitor imaging for change still with significant infiltrates support as able for now in ICU feeds as able off load nutrition as able monitor protein levels follow up cxr on a regular basis medications/laboratory data/nursing notes/ICU care reviewed in detail note reviewed and edited care discussed with RN and RT ICU time spent 40 minutes Critical Care - Subjective Interval Events: on vent poor LOC ICU care reviewed vitals noted skin noted ROS Limited/Unobtainable: Yes Condition: critical EKG Rhythm: Sinus Rhythm Residuals: minimal Tube Feeding Tolerated: yes I&O: Intake and Output 05/29/19 05/30/19 19:00 07:00 Intake Total 1716.75 ml 1200.0 ml Output Total 230 ml 450 ml Balance 1486.75 ml 750.0 ml Free Water 50 ml IV Total 1666.75 ml 1200.0 ml Tube Feeding 0 ml 0 ml Output Urine Total 230 ml 450 ml # Bowel Movements 2 2 Critical Care - Objective CXR: cxr with infiltrates ET-Tube: 7.5 ET Position: 25 Last 24 Hour Vital Signs Date Time Temp Pulse Resp B/P (MAP) Pulse Ox O2 Delivery O2 Flow Rate FiO2 05/30/19 07:00 62 18 128/51 (76) 96 05/30/19 06:40 64 17 70 05/30/19 06:30 51 18 122/48 (72) 96 05/30/19 06:00 60 18 96/39 (58) 96 05/30/19 06:00 138/61 05/30/19 05:30 85 22 124/48 (73) 95 05/30/19 05:10 85 25 70 05/30/19 05:00 136/52 05/30/19 05:00 88 24 138/61 (86) 95 05/30/19 04:30 88 24 123/48 (73) 94 05/30/19 04:00 99.6 76 23 162/105 (124) 95 1/3/20 04:00 70 05/30/19 04:00 88 05/30/19 04:00 142/56 05/30/19 04:00 Mechanical Ventilator 05/30/19 03:30 61 16 106/37 (60) 97 05/30/19 03:30 61 17 70 05/30/19 03:15 53 16 115/42 (66) 97 05/30/19 03:03 98/41 05/30/19 03:00 67 18 98/41 (60) 97 05/30/19 02:30 66 18 119/43 (68) 96 05/30/19 02:00 59 17 111/50 (70) 97 05/30/19 02:00 116/38 05/30/19 01:30 60 17 70 05/30/19 01:30 56 17 111/39 (63) 98 05/30/19 01:00 56 16 81/33 (49) 98 05/30/19 01:00 103/38 05/30/19 00:30 67 15 111/38 (62) 97 05/30/19 00:15 75 20 131/47 (75) 97 05/30/19 00:00 76 21 129/42 (71) 97 05/30/19 00:00 129/42 05/30/19 00:00 66 05/30/19 00:00 Mechanical Ventilator 05/29/19 23:45 52 16 101/41 (61) 97 05/29/19 23:30 54 9 113/42 (65) 97 05/29/19 23:27 48 17 70 05/29/19 23:15 47 1 104/44 (64) 97 05/29/19 23:00 58 11 103/41 (61) 98 05/29/19 23:00 103/41 05/29/19 22:30 55 14 113/41 (65) 97 05/29/19 22:00 124/42 05/29/19 22:00 56 11 110/40 (63) 97 05/29/19 21:30 59 13 109/40 (63) 97 05/29/19 21:00 64 11 102/42 (62) 97 05/29/19 21:00 102/42 05/29/19 20:51 63 18 70 05/29/19 20:30 69 15 116/49 (71) 95 05/29/19 20:03 122/51 1/2/20 20:00 99.0 74 19 122/51 (74) 93 05/29/19 20:00 Mechanical Ventilator 05/29/19 20:00 69 05/29/19 20:00 132/46 05/29/19 20:00 70 05/29/19 19:30 69 16 119/46 (70) 95 05/29/19 19:30 69 17 70 05/29/19 19:00 70 14 112/37 (62) 97 05/29/19 19:00 112/37 05/29/19 19:00 112/37 05/29/19 19:00 112/37 05/29/19 19:00 112/37 05/29/19 18:30 99 25 173/62 (99) 88 05/29/19 18:00 112/51 05/29/19 18:00 59 25 153/51 (85) 91 05/29/19 17:30 59 22 122/42 (68) 93 05/29/19 17:05 78 22 70 05/29/19 17:00 74 22 129/55 (79) 92 05/29/19 17:00 129/55 05/29/19 16:30 102 21 135/56 (82) 94 05/29/19 16:00 61 20 118/47 (70) 92 05/29/19 16:00 70 05/29/19 16:00 76 05/29/19 16:00 Mechanical Ventilator 05/29/19 15:30 56 23 122/38 (66) 95 05/29/19 15:17 91 21 70 05/29/19 15:00 138/40 05/29/19 15:00 70 21 138/40 (72) 95 05/29/19 14:30 60 17 121/44 (69) 95 05/29/19 14:00 59 18 131/49 (76) 97 05/29/19 14:00 131/49 05/29/19 13:45 75 20 107/45 (65) 95 05/29/19 13:30 79 22 125/47 (73) 94 05/29/19 13:15 78 23 116/49 (71) 94 05/29/19 13:00 75 23 143/46 (78) 94 05/29/19 13:00 143/46 05/29/19 12:45 69 20 138/70 (92) 94 05/29/19 12:45 71 22 70 05/29/19 12:30 68 19 79/33 (48) 97 05/29/19 12:30 79/33 05/29/19 12:15 67 19 81/35 (50) 96 05/29/19 12:00 Mechanical Ventilator 05/29/19 12:00 87 05/29/19 12:00 99.6 05/29/19 12:00 100/42 05/29/19 12:00 84 24 100/42 (61) 92 05/29/19 12:00 70 05/29/19 11:41 101/42 05/29/19 11:40 101/42 05/29/19 11:30 74 23 101/42 (61) 94 05/29/19 11:00 75 22 97/41 (59) 94 05/29/19 11:00 97/41 05/29/19 10:53 68 17 70 05/29/19 10:30 74 22 155/48 (83) 94 05/29/19 10:00 73 22 147/51 (83) 93 05/29/19 10:00 147/51 05/29/19 09:30 76 23 102/41 (61) 94 05/29/19 09:00 132/43 05/29/19 09:00 71 18 132/43 (72) 94 05/29/19 08:42 76 23 70 05/29/19 08:30 76 22 125/58 (80) 93 Labs: Laboratory Tests Test 05/30/19 04:20 White Blood Count 11.0 K/UL (4.8-10.8) H Red Blood Count 3.15 M/UL (4.70-6.10) L Hemoglobin 9.4 G/DL (14.2-18.0) L Hematocrit 28.7 % (42.0-52.0) L Mean Corpuscular Volume 91 FL (80-99) Mean Corpuscular Hemoglobin 30.0 PG (27.0-31.0) Mean Corpuscular Hemoglobin Concent 32.8 G/DL (32.0-36.0) Red Cell Distribution Width 16.2 % (11.6-14.8) H Platelet Count 218 K/UL (150-450) Mean Platelet Volume 5.0 FL (6.5-10.1) L Neutrophils (%) (Auto) % (45.0-75.0) Lymphocytes (%) (Auto) % (20.0-45.0) Monocytes (%) (Auto) % (1.0-10.0) Eosinophils (%) (Auto) % (0.0-3.0) Basophils (%) (Auto) % (0.0-2.0) Neutrophils % (Manual) Pending Lymphocytes % (Manual) Pending Platelet Estimate Pending Platelet Morphology Pending Sodium Level 139 MMOL/L (136-145) Potassium Level 4.1 MMOL/L (3.5-5.1) Chloride Level 107 MMOL/L (98-107) Carbon Dioxide Level 21 MMOL/L (21-32) Anion Gap 11 mmol/L (5-15) Blood Urea Nitrogen 77 mg/dL (7-18) H Creatinine 4.2 MG/DL (0.55-1.30) H Estimat Glomerular Filtration Rate mL/min (>60) Glucose Level 110 MG/DL (74-106) H Uric Acid 6.4 MG/DL (2.6-7.2) Calcium Level 6.8 MG/DL (8.5-10.1) L Phosphorus Level 5.2 MG/DL (2.5-4.9) H Magnesium Level 2.0 MG/DL (1.8-2.4) Total Bilirubin 0.4 MG/DL (0.2-1.0) Aspartate Amino Transf (AST/SGOT) 31 U/L (15-37) Alanine Aminotransferase (ALT/SGPT) 19 U/L (12-78) Alkaline Phosphatase 60 U/L (46-116) C-Reactive Protein, Quantitative 16.0 mg/dL (0.00-0.90) H Pro-B-Type Natriuretic Peptide 6142 pg/mL (0-125) H Total Protein 4.9 G/DL (6.4-8.2) L Albumin 1.6 G/DL (3.4-5.0) L Globulin 3.3 g/dL Albumin/Globulin Ratio 0.5 (1.0-2.7) L Random Vancomycin Level 23.9 ug/mL Objective: WDWN NAD orally intubated and good volumes noted reduced breath sounds bilaterally with scattered rhonchi [id number] without MRG NABS nontender no HSM no CC mild edema nonfocal reviewed and edited Micro: Microbiology Date/Time Source Procedure Growth Status 05/27/19 17:00 Sputum Gram Stain - Final Complete 05/27/19 17:00 Sputum Sputum Culture - Final NORMAL UPPER RESPIRATORY ISHMAEL PRESENT Complete Accucheck: 130 Korey Mtz MD May 30, 2019 08:12
[2019-05-30] MEDS: Docusate 100mg/10ml Liq NG SCH ×3 (09:00→18:24)
[2019-05-30] MEDS: Amiodarone 200mg tab ORAL SCH (09:48)
[2019-05-30] MEDS: Pantoprazole Inj IVP SCH ×2 (09:48→21:22)
[2019-05-30] MEDS: Midodrine 10mg tab ORAL SCH ×3 (09:48→18:24)
[2019-05-30] MEDS: Eliquis 2.5mg tablet ORAL SCH ×2 (09:50→18:24)
--- NOTE | 2019-05-30 09:55 | Nephrology Progress Note ---
Assessment/Plan Problem List: (1) Renal failure (ARF), acute on chronic Assessment: Cr rising (2) Cellulitis of upper extremity (3) A-fib (4) Pneumonia (5) UTI (urinary tract infection) (6) Anemia Assessment: worsened (7) Hypothyroidism Assessment - KIMO on CKD - Urinary tract infection. - Anemia- - Dehydration. - Cellulitis of Upper extremity - HTN Plan in ICU- intubated on pressors BP meds and Mind altering meds discontinued start midodrine check vanco levels - hold vanco doses previously: Per cardiology Anemia kumari- Avoid Nephrotoxics Per ID Allow CHANDA inhibitor to continue as long as renal function does not worsen. PICC line has been removed. CXR: Increased right pleural effusion and similar left pleural effusion. Increased interstitial and hazy opacities throughout the lungs. Subjective ROS Limited/Unobtainable: Yes Objective Objective Last 24 Hour Vital Signs Date Time Temp Pulse Resp B/P (MAP) Pulse Ox O2 Delivery O2 Flow Rate FiO2 05/30/19 08:49 60 19 70 05/30/19 08:30 79 22 110/48 (68) 97 05/30/19 08:00 Mechanical Ventilator 05/30/19 08:00 70 05/30/19 08:00 99.6 58 20 124/76 (92) 98 05/30/19 08:00 56 05/30/19 07:30 56 26 135/44 (74) 95 05/30/19 07:00 62 18 128/51 (76) 96 05/30/19 06:40 64 17 70 05/30/19 06:30 51 18 122/48 (72) 96 05/30/19 06:00 60 18 96/39 (58) 96 05/30/19 06:00 138/61 05/30/19 05:30 85 22 124/48 (73) 95 05/30/19 05:10 85 25 70 05/30/19 05:00 136/52 05/30/19 05:00 88 24 138/61 (86) 95 05/30/19 04:30 88 24 123/48 (73) 94 05/30/19 04:00 99.6 76 23 162/105 (124) 95 05/30/19 04:00 70 05/30/19 04:00 88 05/30/19 04:00 142/56 05/30/19 04:00 Mechanical Ventilator 05/30/19 03:30 61 16 106/37 (60) 97 05/30/19 03:30 61 17 70 05/30/19 03:15 53 16 115/42 (66) 97 05/30/19 03:03 98/41 05/30/19 03:00 67 18 98/41 (60) 97 05/30/19 02:30 66 18 119/43 (68) 96 05/30/19 02:00 59 17 111/50 (70) 97 05/30/19 02:00 116/38 05/30/19 01:30 60 17 70 05/30/19 01:30 56 17 111/39 (63) 98 05/30/19 01:00 56 16 81/33 (49) 98 05/30/19 01:00 103/38 05/30/19 00:30 67 15 111/38 (62) 97 05/30/19 00:15 75 20 131/47 (75) 97 05/30/19 00:00 76 21 129/42 (71) 97 05/30/19 00:00 129/42 05/30/19 00:00 66 05/30/19 00:00 Mechanical Ventilator 05/29/19 23:45 52 16 101/41 (61) 97 05/29/19 23:30 54 9 113/42 (65) 97 05/29/19 23:27 48 17 70 05/29/19 23:15 47 1 104/44 (64) 97 05/29/19 23:00 58 11 103/41 (61) 98 05/29/19 23:00 103/41 05/29/19 22:30 55 14 113/41 (65) 97 05/29/19 22:00 124/42 05/29/19 22:00 56 11 110/40 (63) 97 05/29/19 21:30 59 13 109/40 (63) 97 05/29/19 21:00 64 11 102/42 (62) 97 05/29/19 21:00 102/42 05/29/19 20:51 63 18 70 05/29/19 20:30 69 15 116/49 (71) 95 05/29/19 20:03 122/51 05/29/19 20:00 99.0 74 19 122/51 (74) 93 05/29/19 20:00 Mechanical Ventilator 05/29/19 20:00 69 05/29/19 20:00 132/46 05/29/19 20:00 70 05/29/19 19:30 69 16 119/46 (70) 95 05/29/19 19:30 69 17 70 05/29/19 19:00 70 14 112/37 (62) 97 05/29/19 19:00 112/37 05/29/19 19:00 112/37 05/29/19 19:00 112/37 05/29/19 19:00 112/37 05/29/19 18:30 99 25 173/62 (99) 88 05/29/19 18:00 112/51 05/29/19 18:00 59 25 153/51 (85) 91 05/29/19 17:30 59 22 122/42 (68) 93 05/29/19 17:05 78 22 70 05/29/19 17:00 74 22 129/55 (79) 92 05/29/19 17:00 129/55 05/29/19 16:30 102 21 135/56 (82) 94 05/29/19 16:00 61 20 118/47 (70) 92 05/29/19 16:00 70 05/29/19 16:00 76 05/29/19 16:00 Mechanical Ventilator 05/29/19 15:30 56 23 122/38 (66) 95 05/29/19 15:17 91 21 70 05/29/19 15:00 138/40 05/29/19 15:00 70 21 138/40 (72) 95 05/29/19 14:30 60 17 121/44 (69) 95 05/29/19 14:00 59 18 131/49 (76) 97 05/29/19 14:00 131/49 05/29/19 13:45 75 20 107/45 (65) 95 05/29/19 13:30 79 22 125/47 (73) 94 05/29/19 13:15 78 23 116/49 (71) 94 05/29/19 13:00 75 23 143/46 (78) 94 05/29/19 13:00 143/46 05/29/19 12:45 69 20 138/70 (92) 94 05/29/19 12:45 71 22 70 05/29/19 12:30 68 19 79/33 (48) 97 05/29/19 12:30 79/33 05/29/19 12:15 67 19 81/35 (50) 96 05/29/19 12:00 Mechanical Ventilator 05/29/19 12:00 87 05/29/19 12:00 99.6 05/29/19 12:00 100/42 05/29/19 12:00 84 24 100/42 (61) 92 05/29/19 12:00 70 05/29/19 11:41 101/42 05/29/19 11:40 101/42 05/29/19 11:30 74 23 101/42 (61) 94 05/29/19 11:00 75 22 97/41 (59) 94 05/29/19 11:00 97/41 05/29/19 10:53 68 17 70 05/29/19 10:30 74 22 155/48 (83) 94 05/29/19 10:00 73 22 147/51 (83) 93 05/29/19 10:00 147/51 Intake and Output 05/29/19 05/30/19 19:00 07:00 Intake Total 1716.75 ml 1200.0 ml Output Total 230 ml 450 ml Balance 1486.75 ml 750.0 ml Free Water 50 ml IV Total 1666.75 ml 1200.0 ml Tube Feeding 0 ml 0 ml Output Urine Total 230 ml 450 ml # Bowel Movements 2 2 Laboratory Tests 05/30/19 04:20: White Blood Count 11.0H, Red Blood Count 3.15L, Hemoglobin 9.4L, Hematocrit 28.7L, Mean Corpuscular Volume 91, Mean Corpuscular Hemoglobin 30.0, Mean Corpuscular Hemoglobin Concent 32.8, Red Cell Distribution Width 16.2H, Platelet Count 218, Mean Platelet Volume 5.0L, Neutrophils (%) (Auto) , Lymphocytes (%) (Auto) , Monocytes (%) (Auto) , Eosinophils (%) (Auto) , Basophils (%) (Auto) , Neutrophils % (Manual) [Pending], Lymphocytes % (Manual) [Pending], Platelet Estimate [Pending], Platelet Morphology [Pending], Sodium Level 139, Potassium Level 4.1, Chloride Level 107, Carbon Dioxide Level 21, Anion Gap 11, Blood Urea Nitrogen 77H, Creatinine 4.2H, Estimat Glomerular Filtration Rate , Glucose Level 110H, Uric Acid 6.4, Calcium Level 6.8L, Phosphorus Level 5.2H, Magnesium Level 2.0, Total Bilirubin 0.4, Aspartate Amino Transf (AST/SGOT) 31, Alanine Aminotransferase (ALT/SGPT) 19, Alkaline Phosphatase 60, C-Reactive Protein, Quantitative 16.0H, Pro-B-Type Natriuretic Peptide 6142H, Total Protein 4.9L, Albumin 1.6L, Globulin 3.3, Albumin/Globulin Ratio 0.5L, Random Vancomycin Level 23.9 Height (Feet): 5 Height (Inches): 7.00 Weight (Pounds): 189 General Appearance: no apparent distress EENT: other - vented Cardiovascular: normal rate Respiratory/Chest: decreased breath sounds Abdomen: distended Extremities: moderate edema Reinier Mera MD May 30, 2019 09:55
--- NOTE | 2019-05-30 10:23 | Infectious Diseases Prog Note ---
Assessment/Plan Assessment/Plan 84 yo male with PMHx of HTN who was sent to the ED on 05/18/19 from his [facility] for possible picc line infection. Swelling around PICC line Minimal to no erythema and no purulent drainage Not likely to be infected Blood Cx 05/18/19 - NGTD PICC Tip Cx 05/18/19 - NGTD PICC line removed 05/18/19 No Leukocytosis No fever OM - Let foot On Vancomycin at nursing End date early May PNA on 8L NC CXR - Some LLL Atelectasis vs PNA, Nodules CT 05/20/19 - Bilateral upper lobe infiltrates worse on the right. Consider pneumonia. Bilateral pleural effusions moderate in size HTN PLAN - Continue Daptomycin for OM End date per [facility] MD - 05/28/19 SP Vancomycin per pharmacy - Stopped for increasing Cr - Continue Zosyn #4 for probable PNA - 05/27/19 SP Levofloxacin #5 - Get OSH records for OM - Repeat Cx of blood, Sputum and Urine - Monitor CBC and Temps Thank you for this consult. [facility] will continue to follow the patient with you during this hospitalization. Subjective Allergies: Coded Allergies: No Known Allergies (Unverified , 05/18/19) Subjective On Vent 70% O2 Afebrile Mild Leukocytosis DAVID Objective Vital Signs Last 24 Hour Vital Signs Date Time Temp Pulse Resp B/P (MAP) Pulse Ox O2 Delivery O2 Flow Rate FiO2 05/30/19 10:00 68 17 108/39 (62) 98 05/30/19 09:30 58 19 97/31 (53) 99 05/30/19 09:00 60 18 98/36 (56) 98 05/30/19 08:49 60 19 70 05/30/19 08:30 79 22 110/48 (68) 97 05/30/19 08:00 Mechanical Ventilator 05/30/19 08:00 70 05/30/19 08:00 99.6 58 20 124/76 (92) 98 05/30/19 08:00 56 05/30/19 07:30 56 26 135/44 (74) 95 05/30/19 07:00 62 18 128/51 (76) 96 05/30/19 06:40 64 17 70 05/30/19 06:30 51 18 122/48 (72) 96 05/30/19 06:00 60 18 96/39 (58) 96 05/30/19 06:00 138/61 05/30/19 05:30 85 22 124/48 (73) 95 05/30/19 05:10 85 25 70 05/30/19 05:00 136/52 05/30/19 05:00 88 24 138/61 (86) 95 05/30/19 04:30 88 24 123/48 (73) 94 05/30/19 04:00 99.6 76 23 162/105 (124) 95 05/30/19 04:00 70 05/30/19 04:00 88 05/30/19 04:00 142/56 05/30/19 04:00 Mechanical Ventilator 05/30/19 03:30 61 16 106/37 (60) 97 05/30/19 03:30 61 17 70 05/30/19 03:15 53 16 115/42 (66) 97 05/30/19 03:03 98/41 05/30/19 03:00 67 18 98/41 (60) 97 05/30/19 02:30 66 18 119/43 (68) 96 05/30/19 02:00 59 17 111/50 (70) 97 05/30/19 02:00 116/38 05/30/19 01:30 60 17 70 05/30/19 01:30 56 17 111/39 (63) 98 05/30/19 01:00 56 16 81/33 (49) 98 05/30/19 01:00 103/38 05/30/19 00:30 67 15 111/38 (62) 97 05/30/19 00:15 75 20 131/47 (75) 97 05/30/19 00:00 76 21 129/42 (71) 97 05/30/19 00:00 129/42 05/30/19 00:00 66 05/30/19 00:00 Mechanical Ventilator 05/29/19 23:45 52 16 101/41 (61) 97 05/29/19 23:30 54 9 113/42 (65) 97 05/29/19 23:27 48 17 70 05/29/19 23:15 47 1 104/44 (64) 97 05/29/19 23:00 58 11 103/41 (61) 98 05/29/19 23:00 103/41 05/29/19 22:30 55 14 113/41 (65) 97 05/29/19 22:00 124/42 05/29/19 22:00 56 11 110/40 (63) 97 05/29/19 21:30 59 13 109/40 (63) 97 05/29/19 21:00 64 11 102/42 (62) 97 05/29/19 21:00 102/42 05/29/19 20:51 63 18 70 05/29/19 20:30 69 15 116/49 (71) 95 05/29/19 20:03 122/51 05/29/19 20:00 99.0 74 19 122/51 (74) 93 05/29/19 20:00 Mechanical Ventilator 05/29/19 20:00 69 05/29/19 20:00 132/46 05/29/19 20:00 70 05/29/19 19:30 69 16 119/46 (70) 95 05/29/19 19:30 69 17 70 05/29/19 19:00 70 14 112/37 (62) 97 05/29/19 19:00 112/37 05/29/19 19:00 112/37 05/29/19 19:00 112/37 05/29/19 19:00 112/37 05/29/19 18:30 99 25 173/62 (99) 88 05/29/19 18:00 112/51 05/29/19 18:00 59 25 153/51 (85) 91 05/29/19 17:30 59 22 122/42 (68) 93 05/29/19 17:05 78 22 70 05/29/19 17:00 74 22 129/55 (79) 92 05/29/19 17:00 129/55 05/29/19 16:30 102 21 135/56 (82) 94 05/29/19 16:00 61 20 118/47 (70) 92 05/29/19 16:00 70 05/29/19 16:00 76 05/29/19 16:00 Mechanical Ventilator 05/29/19 15:30 56 23 122/38 (66) 95 05/29/19 15:17 91 21 70 05/29/19 15:00 138/40 05/29/19 15:00 70 21 138/40 (72) 95 05/29/19 14:30 60 17 121/44 (69) 95 05/29/19 14:00 59 18 131/49 (76) 97 05/29/19 14:00 131/49 05/29/19 13:45 75 20 107/45 (65) 95 05/29/19 13:30 79 22 125/47 (73) 94 05/29/19 13:15 78 23 116/49 (71) 94 05/29/19 13:00 75 23 143/46 (78) 94 05/29/19 13:00 143/46 05/29/19 12:45 69 20 138/70 (92) 94 05/29/19 12:45 71 22 70 05/29/19 12:30 68 19 79/33 (48) 97 05/29/19 12:30 79/33 05/29/19 12:15 67 19 81/35 (50) 96 05/29/19 12:00 Mechanical Ventilator 05/29/19 12:00 87 05/29/19 12:00 99.6 05/29/19 12:00 100/42 05/29/19 12:00 84 24 100/42 (61) 92 05/29/19 12:00 70 05/29/19 11:41 101/42 05/29/19 11:40 101/42 05/29/19 11:30 74 23 101/42 (61) 94 05/29/19 11:00 75 22 97/41 (59) 94 05/29/19 11:00 97/41 05/29/19 10:53 68 17 70 05/29/19 10:30 74 22 155/48 (83) 94 Height (Feet): 5 Height (Inches): 7.00 Weight (Pounds): 189 Objective Gen: Intubatd on vent HEENT: NCAT, MMM, EOMI LUNGS: Coarse B/L, Tight and wheezy CARDS: RRR, S1, S2 ABD: Soft, NT, ND Microbiology Date/Time Source Procedure Growth Status 05/27/19 17:00 Sputum Gram Stain - Final Complete 05/27/19 17:00 Sputum Sputum Culture - Final NORMAL UPPER RESPIRATORY ISHMAEL PRESENT Complete Laboratory Tests Test 05/30/19 04:20 White Blood Count 11.0 K/UL (4.8-10.8) H Red Blood Count 3.15 M/UL (4.70-6.10) L Hemoglobin 9.4 G/DL (14.2-18.0) L Hematocrit 28.7 % (42.0-52.0) L Mean Corpuscular Volume 91 FL (80-99) Mean Corpuscular Hemoglobin 30.0 PG (27.0-31.0) Mean Corpuscular Hemoglobin Concent 32.8 G/DL (32.0-36.0) Red Cell Distribution Width 16.2 % (11.6-14.8) H Platelet Count 218 K/UL (150-450) Mean Platelet Volume 5.0 FL (6.5-10.1) L Neutrophils (%) (Auto) % (45.0-75.0) Lymphocytes (%) (Auto) % (20.0-45.0) Monocytes (%) (Auto) % (1.0-10.0) Eosinophils (%) (Auto) % (0.0-3.0) Basophils (%) (Auto) % (0.0-2.0) Differential Total Cells Counted 100 Neutrophils % (Manual) 87 % (45-75) H Lymphocytes % (Manual) 6 % (20-45) L Monocytes % (Manual) 7 % (1-10) Eosinophils % (Manual) 0 % (0-3) Basophils % (Manual) 0 % (0-2) Band Neutrophils 0 % (0-8) Platelet Estimate Adequate Platelet Morphology Normal Hypochromasia 1+ Anisocytosis 1+ Sodium Level 139 MMOL/L (136-145) Potassium Level 4.1 MMOL/L (3.5-5.1) Chloride Level 107 MMOL/L (98-107) Carbon Dioxide Level 21 MMOL/L (21-32) Anion Gap 11 mmol/L (5-15) Blood Urea Nitrogen 77 mg/dL (7-18) H Creatinine 4.2 MG/DL (0.55-1.30) H Estimat Glomerular Filtration Rate mL/min (>60) Glucose Level 110 MG/DL (74-106) H Uric Acid 6.4 MG/DL (2.6-7.2) Calcium Level 6.8 MG/DL (8.5-10.1) L Phosphorus Level 5.2 MG/DL (2.5-4.9) H Magnesium Level 2.0 MG/DL (1.8-2.4) Total Bilirubin 0.4 MG/DL (0.2-1.0) Aspartate Amino Transf (AST/SGOT) 31 U/L (15-37) Alanine Aminotransferase (ALT/SGPT) 19 U/L (12-78) Alkaline Phosphatase 60 U/L (46-116) C-Reactive Protein, Quantitative 16.0 mg/dL (0.00-0.90) H Pro-B-Type Natriuretic Peptide 6142 pg/mL (0-125) H Total Protein 4.9 G/DL (6.4-8.2) L Albumin 1.6 G/DL (3.4-5.0) L Globulin 3.3 g/dL Albumin/Globulin Ratio 0.5 (1.0-2.7) L Random Vancomycin Level 23.9 ug/mL Current Medications Medications (Trade) Dose Ordered Sig/Phillip Route PRN Reason Start Time Stop Time Status Last Admin Dose Admin Acetaminophen (Tylenol) 500 mg Q4H PRN GT Mild Pain/Temp > 100.5 05/27/19 07:45 06/19/19 20:29 05/28/19 15:39 Albumin Human 100 ml @ 100 mls/hr ONCE ONCE IV 05/30/19 10:00 05/30/19 10:59 Amiodarone HCl (Cordarone) 200 mg DAILY ORAL 05/26/19 09:00 06/21/19 20:59 05/30/19 09:48 Apixaban (Eliquis) 2.5 mg BID ORAL 05/26/19 09:00 06/25/19 08:59 05/30/19 09:50 Chlorhexidine Gluconate (Reina-Hex 2%) 1 applic DAILY@2000 TOPIC 05/27/19 20:00 06/26/19 19:59 05/29/19 20:12 Daptomycin 500 mg/ Sodium Chloride 55 ml @ 100 mls/hr Q48H IV 05/29/19 13:00 06/05/19 12:59 05/29/19 13:57 Docusate Sodium (Colace) 100 mg TID NG 05/27/19 09:00 06/20/19 08:59 05/29/19 08:34 Metolazone (Zaroxolyn) 10 mg ONCE NG 05/30/19 10:00 05/30/19 11:00 Midodrine (Pro-Amatine) 10 mg THREE TIMES A DAY ORAL 05/28/19 14:45 06/27/19 14:44 05/30/19 09:48 Norepinephrine Bitartrate 4 mg/ Dextrose 250 ml @ 0 mls/hr Q24H IV 05/29/19 19:20 06/28/19 19:19 05/30/19 03:03 Pantoprazole (Protonix) 40 mg EVERY 12 HOURS IVP 05/27/19 10:45 06/26/19 10:44 05/30/19 09:48 Piperacillin Sod/ Tazobactam Sod 3.375 gm/Sodium Chloride 110 ml @ 27.5 mls/hr Q12H IVPB 05/27/19 11:30 06/03/19 11:29 05/29/19 23:23 Sodium Chloride 1,000 ml @ 75 mls/hr [id number] IV 05/27/19 10:45 06/26/19 10:44 05/30/19 06:33 Jimbo Dodd MD May 30, 2019 10:23
[2019-05-30] MEDS: Piperacillin/Tazobactam 3.375 GM in NS 110 ML IVPB SCH ×2 (11:51→23:48)
--- NOTE | 2019-05-30 12:39 | General Progress Note ---
Assessment/Plan Problem List: (1) Dysphagia ICD Codes: R13.10 - Dysphagia, unspecified SNOMED: 05803437, 484530281 (2) Anemia ICD Codes: D64.9 - Anemia, unspecified SNOMED: 225246356 (3) Hypothyroidism ICD Codes: E03.9 - Hypothyroidism, unspecified SNOMED: 77888386 (4) Thrombus ICD Codes: I82.90 - Acute embolism and thrombosis of unspecified vein SNOMED: 97439313, 20383291, 766087882, 121082203 (5) A-fib ICD Codes: I48.91 - Unspecified atrial fibrillation SNOMED: 95979806 Status: unchanged Assessment/Plan: intubated in ICU coded earlier NPO Diarrhea on pressor NGTF on hold fu pulm fu labs abx per ID poor prognosis Subjective ROS Limited/Unobtainable: No Allergies: Coded Allergies: No Known Allergies (Unverified , 05/18/19) Subjective coded today Objective Last 24 Hour Vital Signs Date Time Temp Pulse Resp B/P (MAP) Pulse Ox O2 Delivery O2 Flow Rate FiO2 05/30/19 12:30 87 26 128/48 (74) 92 05/30/19 12:30 128/48 05/30/19 12:00 99.1 88 25 131/56 (81) 92 05/30/19 11:30 90 23 135/48 (77) 94 05/30/19 11:04 131/59 05/30/19 11:00 60 05/30/19 11:00 88 24 131/59 (83) 93 05/30/19 10:37 118 21 60 05/30/19 10:30 118 22 114/64 (81) 97 05/30/19 10:00 68 17 108/39 (62) 98 05/30/19 09:30 58 19 97/31 (53) 99 05/30/19 09:00 60 18 98/36 (56) 98 05/30/19 08:49 60 19 70 05/30/19 08:30 79 22 110/48 (68) 97 05/30/19 08:00 Mechanical Ventilator 05/30/19 08:00 70 05/30/19 08:00 99.6 58 20 124/76 (92) 98 05/30/19 08:00 56 05/30/19 07:30 56 26 135/44 (74) 95 05/30/19 07:00 62 18 128/51 (76) 96 05/30/19 06:40 64 17 70 05/30/19 06:30 51 18 122/48 (72) 96 05/30/19 06:00 60 18 96/39 (58) 96 05/30/19 06:00 138/61 05/30/19 05:30 85 22 124/48 (73) 95 05/30/19 05:10 85 25 70 05/30/19 05:00 136/52 05/30/19 05:00 88 24 138/61 (86) 95 05/30/19 04:30 88 24 123/48 (73) 94 05/30/19 04:00 99.6 76 23 162/105 (124) 95 05/30/19 04:00 70 05/30/19 04:00 88 05/30/19 04:00 142/56 05/30/19 04:00 Mechanical Ventilator 05/30/19 03:30 61 16 106/37 (60) 97 05/30/19 03:30 61 17 70 05/30/19 03:15 53 16 115/42 (66) 97 05/30/19 03:03 98/41 05/30/19 03:00 67 18 98/41 (60) 97 05/30/19 02:30 66 18 119/43 (68) 96 05/30/19 02:00 59 17 111/50 (70) 97 05/30/19 02:00 116/38 05/30/19 01:30 60 17 70 05/30/19 01:30 56 17 111/39 (63) 98 05/30/19 01:00 56 16 81/33 (49) 98 05/30/19 01:00 103/38 05/30/19 00:30 67 15 111/38 (62) 97 05/30/19 00:15 75 20 131/47 (75) 97 05/30/19 00:00 76 21 129/42 (71) 97 05/30/19 00:00 129/42 05/30/19 00:00 66 05/30/19 00:00 Mechanical Ventilator 05/29/19 23:45 52 16 101/41 (61) 97 05/29/19 23:30 54 9 113/42 (65) 97 05/29/19 23:27 48 17 70 05/29/19 23:15 47 1 104/44 (64) 97 05/29/19 23:00 58 11 103/41 (61) 98 05/29/19 23:00 103/41 05/29/19 22:30 55 14 113/41 (65) 97 05/29/19 22:00 124/42 05/29/19 22:00 56 11 110/40 (63) 97 05/29/19 21:30 59 13 109/40 (63) 97 05/29/19 21:00 64 11 102/42 (62) 97 05/29/19 21:00 102/42 05/29/19 20:51 63 18 70 05/29/19 20:30 69 15 116/49 (71) 95 05/29/19 20:03 122/51 05/29/19 20:00 99.0 74 19 122/51 (74) 93 05/29/19 20:00 Mechanical Ventilator 05/29/19 20:00 69 05/29/19 20:00 132/46 05/29/19 20:00 70 05/29/19 19:30 69 16 119/46 (70) 95 05/29/19 19:30 69 17 70 05/29/19 19:00 70 14 112/37 (62) 97 05/29/19 19:00 112/37 05/29/19 19:00 112/37 05/29/19 19:00 112/37 05/29/19 19:00 112/37 05/29/19 18:30 99 25 173/62 (99) 88 05/29/19 18:00 112/51 05/29/19 18:00 59 25 153/51 (85) 91 05/29/19 17:30 59 22 122/42 (68) 93 05/29/19 17:05 78 22 70 05/29/19 17:00 74 22 129/55 (79) 92 05/29/19 17:00 129/55 05/29/19 16:30 102 21 135/56 (82) 94 05/29/19 16:00 61 20 118/47 (70) 92 05/29/19 16:00 70 05/29/19 16:00 76 05/29/19 16:00 Mechanical Ventilator 05/29/19 15:30 56 23 122/38 (66) 95 05/29/19 15:17 91 21 70 05/29/19 15:00 138/40 05/29/19 15:00 70 21 138/40 (72) 95 05/29/19 14:30 60 17 121/44 (69) 95 05/29/19 14:00 59 18 131/49 (76) 97 05/29/19 14:00 131/49 05/29/19 13:45 75 20 107/45 (65) 95 05/29/19 13:30 79 22 125/47 (73) 94 05/29/19 13:15 78 23 116/49 (71) 94 05/29/19 13:00 75 23 143/46 (78) 94 05/29/19 13:00 143/46 05/29/19 12:45 69 20 138/70 (92) 94 05/29/19 12:45 71 22 70 Intake and Output 05/29/19 05/30/19 19:00 07:00 Intake Total 1716.75 ml 1305.0 ml Output Total 230 ml 450 ml Balance 1486.75 ml 855.0 ml Free Water 50 ml IV Total 1666.75 ml 1305.0 ml Tube Feeding 0 ml 0 ml Output Urine Total 230 ml 450 ml # Bowel Movements 2 2 Laboratory Tests 05/30/19 04:20: White Blood Count 11.0H, Red Blood Count 3.15L, Hemoglobin 9.4L, Hematocrit 28.7L, Mean Corpuscular Volume 91, Mean Corpuscular Hemoglobin 30.0, Mean Corpuscular Hemoglobin Concent 32.8, Red Cell Distribution Width 16.2H, Platelet Count 218, Mean Platelet Volume 5.0L, Neutrophils (%) (Auto) , Lymphocytes (%) (Auto) , Monocytes (%) (Auto) , Eosinophils (%) (Auto) , Basophils (%) (Auto) , Differential Total Cells Counted 100, Neutrophils % ( Manual) 87H, Lymphocytes % (Manual) 6L, Monocytes % (Manual) 7, Eosinophils % ( Manual) 0, Basophils % (Manual) 0, Band Neutrophils 0, Platelet Estimate Adequate, Platelet Morphology Normal, Hypochromasia 1+, Anisocytosis 1+, Sodium Level 139, Potassium Level 4.1, Chloride Level 107, Carbon Dioxide Level 21, Anion Gap 11, Blood Urea Nitrogen 77H, Creatinine 4.2H, Estimat Glomerular Filtration Rate , Glucose Level 110H, Uric Acid 6.4, Calcium Level 6.8L, Phosphorus Level 5.2H, Magnesium Level 2.0, Total Bilirubin 0.4, Aspartate Amino Transf (AST/SGOT) 31, Alanine Aminotransferase (ALT/SGPT) 19, Alkaline Phosphatase 60, C-Reactive Protein, Quantitative 16.0H, Pro-B-Type Natriuretic Peptide 6142H, Total Protein 4.9L, Albumin 1.6L, Globulin 3.3, Albumin/Globulin Ratio 0.5L, Random Vancomycin Level 23.9 Height (Feet): 5 Height (Inches): 7.00 Weight (Pounds): 189 General Appearance: lethargic EENT: normal ENT inspection Neck: supple Cardiovascular: tachycardia Respiratory/Chest: decreased breath sounds Abdomen: soft, hypoactive bowel sounds Extremities: non-tender Edema: 3+ Leg (R) Valentino Lino MD May 30, 2019 12:39
--- NOTE | 2019-05-30 13:25 | Hematology/Onc Progress Note ---
Assessment/Plan Assessment/Plan # Anemia of chronic disease due to underlying chronic medical issues, multifactorial v Gi bleed --> Anemia workup has been reviewed, rule out gi bleed --> No evidence of hemolysis is noted, peripheral smear has been reviewed. --> Hgb goal >7. Transfuse prn. --> Epogen or iron at this time is not particularly indicated --> Medications have been reviewed --> low threshold for gi evaluation in case has occult + --> hgb trend: 9.3-->9.7-->8.1-->7.6-->8-->9.4 --> transf 05/28/19 with 1 unit prbc --> transfusion is a emergency, no family, no poa, is okay to transfuse # Right upper arm extremity axillary vein dvt --> agree to continue eliquis --> as per cards low dose eliquis --> continue for total of minimum of 3 months --> rescan arm in 3 mo # Cellulitis of upper extremity, likely picc line infection --> as per id on ax --> picc off --> levoflox/vanc-->zosyn/vanc--> zosyn # Renal insufficiency --> per Dr. Mera # Pneumonia --> abx per id # Dehydration. --> goal of euvolemia # Paroxysmal Atrial fibrillation with rapid ventricular response was on amiodarone gtt, now in sinus rhythm. --> per cards On PO amiodarone 200 bid, Lopressor 25 bid and Eliquis 2.5 bid # Dysphagia with ng tube # Dvt ppx eliquis The timing of this note does not necessarily reflect the time of the patient was seen. Greatly appreciate consultation. Subjective Constitutional: Denies: no symptoms, chills, fever, malaise, weakness, other HEENT: Denies: no symptoms, eye pain, blurred vision, tearing, double vision, ear pain, ear discharge, nose pain, nose congestion, throat pain, throat swelling, mouth pain, mouth swelling, other Cardiovascular: Denies: no symptoms, chest pain, edema, irregular heart rate, lightheadedness, palpitations, syncope, other Respiratory: Denies: no symptoms, cough, shortness of breath, SOB with excertion, SOB at rest, sputum, wheezing, other Gastrointestinal/Abdominal: Denies: no symptoms, abdomen distended, abdominal pain, black stools, tarry stools, blood in stool, constipated, diarrhea, difficulty swallowing, nausea, poor appetite, poor fluid intake, rectal bleeding , vomiting, other Genitourinary: Denies: no symptoms, burning, discharge, frequency, flank pain, hematuria, incontinence, pain, urgency, other Neurologic/Psychiatric: Denies: no symptoms, anxiety, depressed, emotional problems, headache, numbness, paresthesia, pre-existing deficit, seizure, tingling, tremors, weakness, other Endocrine: Denies: no symptoms, excessive sweating, flushing, intolerance to cold, intolerance to heat, increased hunger, increased thirst, increased urine, unexplained weight gain, unexplained weight loss, other Allergies: Coded Allergies: No Known Allergies (Unverified , 05/18/19) Subjective 05/24: awake and alert, v mask, labs reviewed, apixaban 05/25: as per gi, ngt and eliquis tolerated 05/26: pending clearance but still with ng and nonrebreather 05/27: hypoxic yesterday, deteriorated, coded, now intubated, icu, labs noted 05/28: icu, levophed gtt, hgb 7.6, repeat cbc 05/29: remains in the icu, given prbc last night, no bleeding 05/30: no events, no bleeding, ++ fredo and on pressor Objective Objective Current Medications Medications (Trade) Dose Ordered Sig/Phillip Route PRN Reason Start Time Stop Time Status Last Admin Dose Admin Acetaminophen (Tylenol) 500 mg Q4H PRN GT Mild Pain/Temp > 100.5 05/27/19 07:45 06/19/19 20:29 05/28/19 15:39 Amiodarone HCl (Cordarone) 200 mg DAILY ORAL 05/26/19 09:00 06/21/19 20:59 05/30/19 09:48 Apixaban (Eliquis) 2.5 mg BID ORAL 05/26/19 09:00 06/25/19 08:59 05/30/19 09:50 Chlorhexidine Gluconate (Reina-Hex 2%) 1 applic DAILY@1999 TOPIC 05/27/19 20:00 06/26/19 19:59 05/29/19 20:12 Daptomycin 500 mg/ Sodium Chloride 55 ml @ 100 mls/hr Q48H IV 05/29/19 13:00 06/05/19 12:59 05/29/19 13:57 Docusate Sodium (Colace) 100 mg TID NG 05/27/19 09:00 06/20/19 08:59 05/29/19 08:34 Midodrine (Pro-Amatine) 10 mg THREE TIMES A DAY ORAL 05/28/19 14:45 06/27/19 14:44 05/30/19 09:48 Norepinephrine Bitartrate 4 mg/ Dextrose 250 ml @ 0 mls/hr Q24H IV 05/29/19 19:20 06/28/19 19:19 05/30/19 11:04 Pantoprazole (Protonix) 40 mg EVERY 12 HOURS IVP 05/27/19 10:45 06/26/19 10:44 05/30/19 09:48 Piperacillin Sod/ Tazobactam Sod 3.375 gm/Sodium Chloride 110 ml @ 27.5 mls/hr Q12H IVPB 05/27/19 11:30 06/03/19 11:29 05/30/19 11:51 Sodium Chloride 1,000 ml @ 75 mls/hr [id number] IV 05/27/19 10:45 06/26/19 10:44 05/30/19 06:33 Last 24 Hour Vital Signs Date Time Temp Pulse Resp B/P (MAP) Pulse Ox O2 Delivery O2 Flow Rate FiO2 05/30/19 13:00 64 18 80/33 (49) 96 05/30/19 13:00 84/35 05/30/19 12:57 82 23 65 05/30/19 12:30 87 26 128/48 (74) 92 05/30/19 12:30 128/48 05/30/19 12:00 86 05/30/19 12:00 99.1 88 25 131/56 (81) 92 05/30/19 11:30 90 23 135/48 (77) 94 05/30/19 11:04 131/59 05/30/19 11:00 60 05/30/19 11:00 88 24 131/59 (83) 93 05/30/19 10:37 118 21 60 05/30/19 10:30 118 22 114/64 (81) 97 05/30/19 10:00 68 17 108/39 (62) 98 05/30/19 09:30 58 19 97/31 (53) 99 05/30/19 09:00 60 18 98/36 (56) 98 05/30/19 08:49 60 19 70 05/30/19 08:30 79 22 110/48 (68) 97 05/30/19 08:00 Mechanical Ventilator 05/30/19 08:00 70 05/30/19 08:00 99.6 58 20 124/76 (92) 98 05/30/19 08:00 56 05/30/19 07:30 56 26 135/44 (74) 95 05/30/19 07:00 62 18 128/51 (76) 96 05/30/19 06:40 64 17 70 05/30/19 06:30 51 18 122/48 (72) 96 05/30/19 06:00 60 18 96/39 (58) 96 05/30/19 06:00 138/61 05/30/19 05:30 85 22 124/48 (73) 95 05/30/19 05:10 85 25 70 05/30/19 05:00 136/52 05/30/19 05:00 88 24 138/61 (86) 95 05/30/19 04:30 88 24 123/48 (73) 94 05/30/19 04:00 99.6 76 23 162/105 (124) 95 05/30/19 04:00 70 05/30/19 04:00 88 05/30/19 04:00 142/56 05/30/19 04:00 Mechanical Ventilator 05/30/19 03:30 61 16 106/37 (60) 97 05/30/19 03:30 61 17 70 05/30/19 03:15 53 16 115/42 (66) 97 05/30/19 03:03 98/41 05/30/19 03:00 67 18 98/41 (60) 97 05/30/19 02:30 66 18 119/43 (68) 96 05/30/19 02:00 59 17 111/50 (70) 97 05/30/19 02:00 116/38 05/30/19 01:30 60 17 70 05/30/19 01:30 56 17 111/39 (63) 98 05/30/19 01:00 56 16 81/33 (49) 98 05/30/19 01:00 103/38 05/30/19 00:30 67 15 111/38 (62) 97 05/30/19 00:15 75 20 131/47 (75) 97 05/30/19 00:00 76 21 129/42 (71) 97 05/30/19 00:00 129/42 05/30/19 00:00 66 05/30/19 00:00 Mechanical Ventilator 05/29/19 23:45 52 16 101/41 (61) 97 05/29/19 23:30 54 9 113/42 (65) 97 05/29/19 23:27 48 17 70 05/29/19 23:15 47 1 104/44 (64) 97 05/29/19 23:00 58 11 103/41 (61) 98 05/29/19 23:00 103/41 05/29/19 22:30 55 14 113/41 (65) 97 05/29/19 22:00 124/42 05/29/19 22:00 56 11 110/40 (63) 97 05/29/19 21:30 59 13 109/40 (63) 97 05/29/19 21:00 64 11 102/42 (62) 97 05/29/19 21:00 102/42 05/29/19 20:51 63 18 70 05/29/19 20:30 69 15 116/49 (71) 95 05/29/19 20:03 122/51 05/29/19 20:00 99.0 74 19 122/51 (74) 93 05/29/19 20:00 Mechanical Ventilator 05/29/19 20:00 69 05/29/19 20:00 132/46 05/29/19 20:00 70 05/29/19 19:30 69 16 119/46 (70) 95 05/29/19 19:30 69 17 70 05/29/19 19:00 70 14 112/37 (62) 97 05/29/19 19:00 112/37 05/29/19 19:00 112/37 05/29/19 19:00 112/37 05/29/19 19:00 112/37 05/29/19 18:30 99 25 173/62 (99) 88 05/29/19 18:00 112/51 05/29/19 18:00 59 25 153/51 (85) 91 05/29/19 17:30 59 22 122/42 (68) 93 05/29/19 17:05 78 22 70 05/29/19 17:00 74 22 129/55 (79) 92 05/29/19 17:00 129/55 05/29/19 16:30 102 21 135/56 (82) 94 05/29/19 16:00 61 20 118/47 (70) 92 05/29/19 16:00 70 05/29/19 16:00 76 05/29/19 16:00 Mechanical Ventilator 05/29/19 15:30 56 23 122/38 (66) 95 05/29/19 15:17 91 21 70 05/29/19 15:00 138/40 05/29/19 15:00 70 21 138/40 (72) 95 05/29/19 14:30 60 17 121/44 (69) 95 05/29/19 14:00 59 18 131/49 (76) 97 05/29/19 14:00 131/49 05/29/19 13:45 75 20 107/45 (65) 95 05/29/19 13:30 79 22 125/47 (73) 94 05/29/19 13:15 78 23 116/49 (71) 94 05/29/19 13:00 75 23 143/46 (78) 94 05/29/19 13:00 143/46 05/29/19 12:45 69 20 138/70 (92) 94 05/29/19 12:45 71 22 70 05/29/19 12:30 68 19 79/33 (48) 97 05/29/19 12:30 79/33 05/29/19 12:15 67 19 81/35 (50) 96 05/29/19 12:00 Mechanical Ventilator 05/29/19 12:00 87 05/29/19 12:00 99.6 05/29/19 12:00 100/42 05/29/19 12:00 84 24 100/42 (61) 92 05/29/19 12:00 70 05/29/19 11:41 101/42 05/29/19 11:40 101/42 05/29/19 11:30 74 23 101/42 (61) 94 05/29/19 11:00 75 22 97/41 (59) 94 05/29/19 11:00 97/41 05/29/19 10:53 68 17 70 05/29/19 10:30 74 22 155/48 (83) 94 05/29/19 10:00 73 22 147/51 (83) 93 05/29/19 10:00 147/51 05/29/19 09:30 76 23 102/41 (61) 94 05/29/19 09:00 132/43 05/29/19 09:00 71 18 132/43 (72) 94 05/29/19 08:42 76 23 70 05/29/19 08:30 76 22 125/58 (80) 93 05/29/19 08:00 136/52 05/29/19 08:00 60 05/29/19 08:00 Mechanical Ventilator 05/29/19 08:00 74 05/29/19 08:00 99.0 67 20 136/52 (80) 93 05/29/19 07:30 70 17 126/41 (69) 92 05/29/19 07:11 76 17 96 Mechanical Ventilator 8.0 60 05/29/19 07:08 72 21 60 05/29/19 07:00 126/41 05/29/19 07:00 75 21 126/41 (69) 92 05/29/19 06:30 76 21 139/49 (79) 92 05/29/19 06:24 100/55 05/29/19 06:00 140/55 05/29/19 06:00 77 21 119/43 (68) 93 05/29/19 05:30 67 19 107/47 (67) 98 05/29/19 05:30 75 20 60 05/29/19 05:00 63 13 96/36 (56) 98 05/29/19 05:00 94/38 05/29/19 04:45 88/38 05/29/19 04:30 63 15 93/38 (56) 97 05/29/19 04:00 65 05/29/19 04:00 63 20 95/39 (57) 96 05/29/19 04:00 87/41 05/29/19 04:00 Mechanical Ventilator 05/29/19 04:00 69 05/29/19 03:30 80 20 70 05/29/19 03:30 71 21 99/41 (60) 95 05/29/19 03:00 101/39 05/29/19 03:00 75 19 105/47 (66) 94 05/29/19 02:30 78 21 106/41 (62) 94 05/29/19 02:00 79 19 100/49 (66) 94 05/29/19 02:00 112/42 05/29/19 01:30 82 19 110/40 (63) 94 05/29/19 01:30 118/60 05/29/19 01:21 85 19 70 05/29/19 01:00 85 15 134/48 (76) 97 05/29/19 00:42 119/48 05/29/19 00:30 62 18 119/48 (71) 97 05/29/19 00:00 65 05/29/19 00:00 98.8 65 18 119/44 (69) 97 05/29/19 00:00 Mechanical Ventilator 05/29/19 00:00 65 05/29/19 00:00 120/45 05/28/19 23:30 69 18 70 05/28/19 23:30 65 19 126/51 (76) 97 05/28/19 23:00 127/48 05/28/19 23:00 73 19 128/45 (72) 98 05/28/19 22:30 76 19 135/46 (75) 97 05/28/19 22:00 49 21 115/51 (72) 96 05/28/19 22:00 139/66 05/28/19 21:30 50 22 70 05/28/19 21:30 48 21 118/40 (66) 96 05/28/19 21:00 52 27 124/48 (73) 95 05/28/19 21:00 123/42 05/28/19 20:46 90/50 05/28/19 20:30 52 22 126/51 (76) 94 05/28/19 20:00 98.4 88 21 126/54 (78) 96 05/28/19 20:00 53 05/28/19 20:00 109/42 05/28/19 20:00 65 05/28/19 20:00 Mechanical Ventilator 05/28/19 19:45 73 14 114/46 (68) 96 05/28/19 19:30 136 20 128/61 (83) 97 05/28/19 19:30 75 20 70 05/28/19 19:00 129 11 111/64 (80) 100 05/28/19 19:00 111/44 05/28/19 18:30 167 22 115/64 (81) 99 05/28/19 18:00 131/38 05/28/19 18:00 73 17 131/38 (69) 99 05/28/19 17:30 72 13 130/38 (68) 99 05/28/19 17:19 66 16 100 05/28/19 17:00 64 15 120/40 (66) 100 05/28/19 16:53 124/42 05/28/19 16:52 124/41 05/28/19 16:30 72 16 85/40 (55) 100 05/28/19 16:09 99.8 05/28/19 16:00 99.8 05/28/19 16:00 85 05/28/19 16:00 Mechanical Ventilator 05/28/19 16:00 98/48 05/28/19 16:00 80 16 92/38 (56) 100 05/28/19 15:30 100 05/28/19 15:30 93 20 119/44 (69) 93 05/28/19 15:29 90 19 100 05/28/19 15:00 93 21 123/41 (68) 93 05/28/19 15:00 123/41 05/28/19 14:30 93 20 111/45 (67) 93 05/28/19 14:00 91 18 114/38 (63) 94 05/28/19 14:00 113/48 05/28/19 13:31 83 20 60 05/28/19 13:30 88 21 121/39 (66) 93 Intake and Output 05/29/19 05/30/19 18:59 06:59 Intake Total 1674.25 ml 1312.5 ml Output Total 240 ml 430 ml Balance 1434.25 ml 882.5 ml Free Water 50 ml IV Total 1624.25 ml 1312.5 ml Tube Feeding 0 ml 0 ml Output Urine Total 240 ml 430 ml # Bowel Movements 2 2 Labs Test 05/28/19 04:30 05/28/19 09:00 05/28/19 20:00 05/29/19 03:20 White Blood Count 9.9 K/UL (4.8-10.8) 7.9 K/UL (4.8-10.8) Red Blood Count 2.54 M/UL (4.70-6.10) 2.62 M/UL (4.70-6.10) Hemoglobin 7.6 G/DL (14.2-18.0) 8.0 G/DL (14.2-18.0) Hematocrit 23.8 % (42.0-52.0) 24.2 % (42.0-52.0) Mean Corpuscular Volume 94 FL (80-99) 92 FL (80-99) Mean Corpuscular Hemoglobin 29.9 PG (27.0-31.0) 30.3 PG (27.0-31.0) Mean Corpuscular Hemoglobin Concent 31.9 G/DL (32.0-36.0) 32.9 G/DL (32.0-36.0) Red Cell Distribution Width 16.0 % (11.6-14.8) 15.7 % (11.6-14.8) Platelet Count 179 K/UL (150-450) 160 K/UL (150-450) Mean Platelet Volume 5.3 FL (6.5-10.1) 4.8 FL (6.5-10.1) Neutrophils (%) (Auto) % (45.0-75.0) % (45.0-75.0) Lymphocytes (%) (Auto) % (20.0-45.0) % (20.0-45.0) Monocytes (%) (Auto) % (1.0-10.0) % (1.0-10.0) Eosinophils (%) (Auto) % (0.0-3.0) % (0.0-3.0) Basophils (%) (Auto) % (0.0-2.0) % (0.0-2.0) Differential Total Cells Counted 100 100 Neutrophils % (Manual) 91 % (45-75) 92 % (45-75) Lymphocytes % (Manual) 5 % (20-45) 3 % (20-45) Monocytes % (Manual) 4 % (1-10) 5 % (1-10) Eosinophils % (Manual) 0 % (0-3) 0 % (0-3) Basophils % (Manual) 0 % (0-2) 0 % (0-2) Band Neutrophils 0 % (0-8) 0 % (0-8) Platelet Estimate Adequate Adequate Platelet Morphology Normal Normal Anisocytosis 1+ 1+ Sodium Level 138 MMOL/L (136-145) 140 MMOL/L (136-145) Potassium Level 4.4 MMOL/L (3.5-5.1) 4.4 MMOL/L (3.5-5.1) Chloride Level 108 MMOL/L (98-107) 109 MMOL/L (98-107) Carbon Dioxide Level 22 MMOL/L (21-32) 22 MMOL/L (21-32) Anion Gap 8 mmol/L (5-15) 9 mmol/L (5-15) Blood Urea Nitrogen 67 mg/dL (7-18) 76 mg/dL (7-18) Creatinine 3.5 MG/DL (0.55-1.30) 3.9 MG/DL (0.55-1.30) Estimat Glomerular Filtration Rate mL/min (>60) mL/min (>60) Glucose Level 106 MG/DL (74-106) 124 MG/DL (74-106) Uric Acid 5.9 MG/DL (2.6-7.2) 6.4 MG/DL (2.6-7.2) Calcium Level 7.2 MG/DL (8.5-10.1) 7.2 MG/DL (8.5-10.1) Phosphorus Level 4.7 MG/DL (2.5-4.9) 5.0 MG/DL (2.5-4.9) Magnesium Level 1.9 MG/DL (1.8-2.4) 2.0 MG/DL (1.8-2.4) Total Bilirubin 0.4 MG/DL (0.2-1.0) 0.4 MG/DL (0.2-1.0) Gamma Glutamyl Transpeptidase 30 U/L (5-85) Aspartate Amino Transf (AST/SGOT) 33 U/L (15-37) 30 U/L (15-37) Alanine Aminotransferase (ALT/SGPT) 25 U/L (12-78) 22 U/L (12-78) Alkaline Phosphatase 64 U/L (46-116) 57 U/L (46-116) Ammonia 20 umol/L (11-32) Total Creatine Kinase 109 U/L (26-308) 56 U/L (26-308) Troponin I 0.205 ng/mL (0.000-0.056) 0.152 ng/mL (0.000-0.056) C-Reactive Protein, Quantitative 20.9 mg/dL (0.00-0.90) 23.8 mg/dL (0.00-0.90) Pro-B-Type Natriuretic Peptide 7475 pg/mL (0-125) 6733 pg/mL (0-125) Total Protein 4.9 G/DL (6.4-8.2) 4.5 G/DL (6.4-8.2) Albumin 1.8 G/DL (3.4-5.0) 1.5 G/DL (3.4-5.0) Globulin 3.1 g/dL 3.0 g/dL Albumin/Globulin Ratio 0.6 (1.0-2.7) 0.5 (1.0-2.7) Random Vancomycin Level 29.9 ug/mL 28.0 ug/mL Vancomycin Level Trough 31.4 ug/mL (5.0-12.0) Stool Occult Blood Positive (NEGATIVE) Test 05/30/19 04:20 White Blood Count 11.0 K/UL (4.8-10.8) Red Blood Count 3.15 M/UL (4.70-6.10) Hemoglobin 9.4 G/DL (14.2-18.0) Hematocrit 28.7 % (42.0-52.0) Mean Corpuscular Volume 91 FL (80-99) Mean Corpuscular Hemoglobin 30.0 PG (27.0-31.0) Mean Corpuscular Hemoglobin Concent 32.8 G/DL (32.0-36.0) Red Cell Distribution Width 16.2 % (11.6-14.8) Platelet Count 218 K/UL (150-450) Mean Platelet Volume 5.0 FL (6.5-10.1) Neutrophils (%) (Auto) % (45.0-75.0) Lymphocytes (%) (Auto) % (20.0-45.0) Monocytes (%) (Auto) % (1.0-10.0) Eosinophils (%) (Auto) % (0.0-3.0) Basophils (%) (Auto) % (0.0-2.0) Differential Total Cells Counted 100 Neutrophils % (Manual) 87 % (45-75) Lymphocytes % (Manual) 6 % (20-45) Monocytes % (Manual) 7 % (1-10) Eosinophils % (Manual) 0 % (0-3) Basophils % (Manual) 0 % (0-2) Band Neutrophils 0 % (0-8) Platelet Estimate Adequate Platelet Morphology Normal Hypochromasia 1+ Anisocytosis 1+ Sodium Level 139 MMOL/L (136-145) Potassium Level 4.1 MMOL/L (3.5-5.1) Chloride Level 107 MMOL/L (98-107) Carbon Dioxide Level 21 MMOL/L (21-32) Anion Gap 11 mmol/L (5-15) Blood Urea Nitrogen 77 mg/dL (7-18) Creatinine 4.2 MG/DL (0.55-1.30) Estimat Glomerular Filtration Rate mL/min (>60) Glucose Level 110 MG/DL (74-106) Uric Acid 6.4 MG/DL (2.6-7.2) Calcium Level 6.8 MG/DL (8.5-10.1) Phosphorus Level 5.2 MG/DL (2.5-4.9) Magnesium Level 2.0 MG/DL (1.8-2.4) Total Bilirubin 0.4 MG/DL (0.2-1.0) Aspartate Amino Transf (AST/SGOT) 31 U/L (15-37) Alanine Aminotransferase (ALT/SGPT) 19 U/L (12-78) Alkaline Phosphatase 60 U/L (46-116) C-Reactive Protein, Quantitative 16.0 mg/dL (0.00-0.90) Pro-B-Type Natriuretic Peptide 6142 pg/mL (0-125) Total Protein 4.9 G/DL (6.4-8.2) Albumin 1.6 G/DL (3.4-5.0) Globulin 3.3 g/dL Albumin/Globulin Ratio 0.5 (1.0-2.7) Random Vancomycin Level 23.9 ug/mL Height (Feet): 5 Height (Inches): 7.00 Weight (Pounds): 189 Objective PE: Vitals: reviewed General Appearance: NAD HEENT: normocephalic, atraumatic++ ngt Neck: non-tender, normal alignment Respiratory/Chest: VENT++ Cardiovascular/Chest: normal peripheral pulses, normal rate Abdomen: normal bowel sounds, soft, nontender Extremities: normal range of motion ++ right arm swelling Suleman Addison MD May 30, 2019 13:25
--- NOTE | 2019-05-30 16:14 | General Progress Note ---
Assessment/Plan Problem List: (1) SOB (shortness of breath) ICD Codes: R06.02 - Shortness of breath SNOMED: 779322258 (2) Cellulitis ICD Codes: L03.90 - Cellulitis, unspecified SNOMED: 976923633 (3) Cellulitis of upper extremity ICD Codes: L03.119 - Cellulitis of unspecified part of limb SNOMED: 598349363 Qualifiers: Qualified Codes: L03.113 - Cellulitis of right upper limb (4) Renal insufficiency ICD Codes: N28.9 - Disorder of kidney and ureter, unspecified SNOMED: 123525062, 193683800 (5) Renal failure (ARF), acute on chronic ICD Codes: N17.9 - Acute kidney failure, unspecified; N18.9 - Chronic kidney disease, unspecified SNOMED: 349630401 (6) Anemia ICD Codes: D64.9 - Anemia, unspecified SNOMED: 737454196 (7) Hypothyroidism ICD Codes: E03.9 - Hypothyroidism, unspecified SNOMED: 73902086 (8) UTI (urinary tract infection) ICD Codes: N39.0 - Urinary tract infection, site not specified SNOMED: 89846954 Status: unchanged, deteriorating Assessment/Plan: lethrgic deterioating rhonci reviewed chart and labs and meds edema malnutrition afebrile lethargic critical condition on high volume of oxygen intubated chf exac pna Subjective ROS Limited/Unobtainable: Yes Allergies: Coded Allergies: No Known Allergies (Unverified , 05/18/19) Objective Last 24 Hour Vital Signs Date Time Temp Pulse Resp B/P (MAP) Pulse Ox O2 Delivery O2 Flow Rate FiO2 05/30/19 14:42 56 18 65 05/30/19 14:30 63 16 123/40 (67) 95 05/30/19 14:00 53 16 106/38 (60) 97 05/30/19 13:30 50 15 102/33 (56) 94 05/30/19 13:00 64 18 80/33 (49) 96 05/30/19 13:00 84/35 05/30/19 12:57 82 23 65 05/30/19 12:30 Mechanical Ventilator 05/30/19 12:30 87 26 128/48 (74) 92 05/30/19 12:30 128/48 05/30/19 12:00 86 05/30/19 12:00 99.1 88 25 131/56 (81) 92 05/30/19 11:30 90 23 135/48 (77) 94 05/30/19 11:04 131/59 05/30/19 11:00 60 05/30/19 11:00 88 24 131/59 (83) 93 05/30/19 10:37 118 21 60 05/30/19 10:30 118 22 114/64 (81) 97 05/30/19 10:00 68 17 108/39 (62) 98 05/30/19 09:30 58 19 97/31 (53) 99 05/30/19 09:00 60 18 98/36 (56) 98 05/30/19 08:49 60 19 70 05/30/19 08:30 79 22 110/48 (68) 97 05/30/19 08:00 Mechanical Ventilator 05/30/19 08:00 70 05/30/19 08:00 99.6 58 20 124/76 (92) 98 05/30/19 08:00 56 05/30/19 07:30 56 26 135/44 (74) 95 05/30/19 07:00 62 18 128/51 (76) 96 05/30/19 06:40 64 17 70 05/30/19 06:30 51 18 122/48 (72) 96 05/30/19 06:00 60 18 96/39 (58) 96 05/30/19 06:00 138/61 05/30/19 05:30 85 22 124/48 (73) 95 05/30/19 05:10 85 25 70 05/30/19 05:00 136/52 05/30/19 05:00 88 24 138/61 (86) 95 05/30/19 04:30 88 24 123/48 (73) 94 05/30/19 04:00 99.6 76 23 162/105 (124) 95 05/30/19 04:00 70 05/30/19 04:00 88 05/30/19 04:00 142/56 05/30/19 04:00 Mechanical Ventilator 05/30/19 03:30 61 16 106/37 (60) 97 05/30/19 03:30 61 17 70 05/30/19 03:15 53 16 115/42 (66) 97 05/30/19 03:03 98/41 05/30/19 03:00 67 18 98/41 (60) 97 05/30/19 02:30 66 18 119/43 (68) 96 05/30/19 02:00 59 17 111/50 (70) 97 05/30/19 02:00 116/38 05/30/19 01:30 60 17 70 05/30/19 01:30 56 17 111/39 (63) 98 05/30/19 01:00 56 16 81/33 (49) 98 05/30/19 01:00 103/38 05/30/19 00:30 67 15 111/38 (62) 97 05/30/19 00:15 75 20 131/47 (75) 97 05/30/19 00:00 76 21 129/42 (71) 97 05/30/19 00:00 129/42 05/30/19 00:00 66 05/30/19 00:00 Mechanical Ventilator 05/29/19 23:45 52 16 101/41 (61) 97 05/29/19 23:30 54 9 113/42 (65) 97 05/29/19 23:27 48 17 70 05/29/19 23:15 47 1 104/44 (64) 97 05/29/19 23:00 58 11 103/41 (61) 98 05/29/19 23:00 103/41 05/29/19 22:30 55 14 113/41 (65) 97 05/29/19 22:00 124/42 05/29/19 22:00 56 11 110/40 (63) 97 05/29/19 21:30 59 13 109/40 (63) 97 05/29/19 21:00 64 11 102/42 (62) 97 05/29/19 21:00 102/42 05/29/19 20:51 63 18 70 05/29/19 20:30 69 15 116/49 (71) 95 05/29/19 20:03 122/51 05/29/19 20:00 99.0 74 19 122/51 (74) 93 05/29/19 20:00 Mechanical Ventilator 05/29/19 20:00 69 05/29/19 20:00 132/46 05/29/19 20:00 70 05/29/19 19:30 69 16 119/46 (70) 95 05/29/19 19:30 69 17 70 05/29/19 19:00 70 14 112/37 (62) 97 05/29/19 19:00 112/37 05/29/19 19:00 112/37 05/29/19 19:00 112/37 05/29/19 19:00 112/37 05/29/19 18:30 99 25 173/62 (99) 88 05/29/19 18:00 112/51 05/29/19 18:00 59 25 153/51 (85) 91 05/29/19 17:30 59 22 122/42 (68) 93 05/29/19 17:05 78 22 70 05/29/19 17:00 74 22 129/55 (79) 92 05/29/19 17:00 129/55 05/29/19 16:30 102 21 135/56 (82) 94 Intake and Output 05/29/19 05/30/19 19:00 07:00 Intake Total 1716.75 ml 1305.0 ml Output Total 230 ml 450 ml Balance 1486.75 ml 855.0 ml Free Water 50 ml IV Total 1666.75 ml 1305.0 ml Tube Feeding 0 ml 0 ml Output Urine Total 230 ml 450 ml # Bowel Movements 2 2 Laboratory Tests 05/30/19 04:20: White Blood Count 11.0H, Red Blood Count 3.15L, Hemoglobin 9.4L, Hematocrit 28.7L, Mean Corpuscular Volume 91, Mean Corpuscular Hemoglobin 30.0, Mean Corpuscular Hemoglobin Concent 32.8, Red Cell Distribution Width 16.2H, Platelet Count 218, Mean Platelet Volume 5.0L, Neutrophils (%) (Auto) , Lymphocytes (%) (Auto) , Monocytes (%) (Auto) , Eosinophils (%) (Auto) , Basophils (%) (Auto) , Differential Total Cells Counted 100, Neutrophils % ( Manual) 87H, Lymphocytes % (Manual) 6L, Monocytes % (Manual) 7, Eosinophils % ( Manual) 0, Basophils % (Manual) 0, Band Neutrophils 0, Platelet Estimate Adequate, Platelet Morphology Normal, Hypochromasia 1+, Anisocytosis 1+, Sodium Level 139, Potassium Level 4.1, Chloride Level 107, Carbon Dioxide Level 21, Anion Gap 11, Blood Urea Nitrogen 77H, Creatinine 4.2H, Estimat Glomerular Filtration Rate , Glucose Level 110H, Uric Acid 6.4, Calcium Level 6.8L, Phosphorus Level 5.2H, Magnesium Level 2.0, Total Bilirubin 0.4, Aspartate Amino Transf (AST/SGOT) 31, Alanine Aminotransferase (ALT/SGPT) 19, Alkaline Phosphatase 60, C-Reactive Protein, Quantitative 16.0H, Pro-B-Type Natriuretic Peptide 6142H, Total Protein 4.9L, Albumin 1.6L, Globulin 3.3, Albumin/Globulin Ratio 0.5L, Random Vancomycin Level 23.9 Height (Feet): 5 Height (Inches): 7.00 Weight (Pounds): 189 General Appearance: lethargic, confused Respiratory/Chest: rhonchi - bilaterally Joslyn Wiggins MD May 30, 2019 16:14
--- NOTE | 2019-05-30 16:51 | Surgery Progress Note ---
Surgery Progress Note Subjective Additional Comments weaning more awake and responsive today on vent support exam unchanged leukocytosis Objective Last 24 Hour Vital Signs Date Time Temp Pulse Resp B/P (MAP) Pulse Ox O2 Delivery O2 Flow Rate FiO2 05/30/19 16:00 91 23 142/42 (75) 95 05/30/19 16:00 91 05/30/19 15:30 90 22 129/53 (78) 95 05/30/19 15:00 89 21 124/55 (78) 96 05/30/19 14:42 56 18 65 05/30/19 14:30 63 16 123/40 (67) 95 05/30/19 14:00 53 16 106/38 (60) 97 05/30/19 13:30 50 15 102/33 (56) 94 05/30/19 13:00 64 18 80/33 (49) 96 05/30/19 13:00 84/35 05/30/19 12:57 82 23 65 05/30/19 12:30 Mechanical Ventilator 05/30/19 12:30 87 26 128/48 (74) 92 05/30/19 12:30 128/48 05/30/19 12:00 86 05/30/19 12:00 99.1 88 25 131/56 (81) 92 05/30/19 11:30 90 23 135/48 (77) 94 05/30/19 11:04 131/59 05/30/19 11:00 60 05/30/19 11:00 88 24 131/59 (83) 93 05/30/19 10:37 118 21 60 05/30/19 10:30 118 22 114/64 (81) 97 05/30/19 10:00 68 17 108/39 (62) 98 05/30/19 09:30 58 19 97/31 (53) 99 05/30/19 09:00 60 18 98/36 (56) 98 05/30/19 08:49 60 19 70 05/30/19 08:30 79 22 110/48 (68) 97 05/30/19 08:00 Mechanical Ventilator 05/30/19 08:00 70 05/30/19 08:00 99.6 58 20 124/76 (92) 98 05/30/19 08:00 56 05/30/19 07:30 56 26 135/44 (74) 95 05/30/19 07:00 62 18 128/51 (76) 96 05/30/19 06:40 64 17 70 05/30/19 06:30 51 18 122/48 (72) 96 05/30/19 06:00 60 18 96/39 (58) 96 05/30/19 06:00 138/61 05/30/19 05:30 85 22 124/48 (73) 95 05/30/19 05:10 85 25 70 05/30/19 05:00 136/52 05/30/19 05:00 88 24 138/61 (86) 95 05/30/19 04:30 88 24 123/48 (73) 94 05/30/19 04:00 99.6 76 23 162/105 (124) 95 05/30/19 04:00 70 05/30/19 04:00 88 05/30/19 04:00 142/56 05/30/19 04:00 Mechanical Ventilator 05/30/19 03:30 61 16 106/37 (60) 97 05/30/19 03:30 61 17 70 05/30/19 03:15 53 16 115/42 (66) 97 05/30/19 03:03 98/41 05/30/19 03:00 67 18 98/41 (60) 97 05/30/19 02:30 66 18 119/43 (68) 96 05/30/19 02:00 59 17 111/50 (70) 97 05/30/19 02:00 116/38 05/30/19 01:30 60 17 70 05/30/19 01:30 56 17 111/39 (63) 98 05/30/19 01:00 56 16 81/33 (49) 98 05/30/19 01:00 103/38 05/30/19 00:30 67 15 111/38 (62) 97 05/30/19 00:15 75 20 131/47 (75) 97 05/30/19 00:00 76 21 129/42 (71) 97 05/30/19 00:00 129/42 05/30/19 00:00 66 05/30/19 00:00 Mechanical Ventilator 05/29/19 23:45 52 16 101/41 (61) 97 05/29/19 23:30 54 9 113/42 (65) 97 05/29/19 23:27 48 17 70 05/29/19 23:15 47 1 104/44 (64) 97 05/29/19 23:00 58 11 103/41 (61) 98 05/29/19 23:00 103/41 05/29/19 22:30 55 14 113/41 (65) 97 05/29/19 22:00 124/42 05/29/19 22:00 56 11 110/40 (63) 97 05/29/19 21:30 59 13 109/40 (63) 97 05/29/19 21:00 64 11 102/42 (62) 97 05/29/19 21:00 102/42 05/29/19 20:51 63 18 70 05/29/19 20:30 69 15 116/49 (71) 95 05/29/19 20:03 122/51 05/29/19 20:00 99.0 74 19 122/51 (74) 93 05/29/19 20:00 Mechanical Ventilator 05/29/19 20:00 69 05/29/19 20:00 132/46 05/29/19 20:00 70 05/29/19 19:30 69 16 119/46 (70) 95 05/29/19 19:30 69 17 70 05/29/19 19:00 70 14 112/37 (62) 97 05/29/19 19:00 112/37 05/29/19 19:00 112/37 05/29/19 19:00 112/37 05/29/19 19:00 112/37 05/29/19 18:30 99 25 173/62 (99) 88 05/29/19 18:00 112/51 05/29/19 18:00 59 25 153/51 (85) 91 05/29/19 17:30 59 22 122/42 (68) 93 05/29/19 17:05 78 22 70 05/29/19 17:00 74 22 129/55 (79) 92 05/29/19 17:00 129/55 I&O Intake and Output 05/29/19 05/30/19 19:00 07:00 Intake Total 1716.75 ml 1305.0 ml Output Total 230 ml 450 ml Balance 1486.75 ml 855.0 ml Free Water 50 ml IV Total 1666.75 ml 1305.0 ml Tube Feeding 0 ml 0 ml Output Urine Total 230 ml 450 ml # Bowel Movements 2 2 Dressing: dry Wound: clean Cardiovascular: RSR Respiratory: clear Abdomen: soft, non-distended, decreased bowel sounds Extremities: no cyanosis, other Laboratory Tests Test 05/30/19 04:20 White Blood Count 11.0 K/UL (4.8-10.8) H Red Blood Count 3.15 M/UL (4.70-6.10) L Hemoglobin 9.4 G/DL (14.2-18.0) L Hematocrit 28.7 % (42.0-52.0) L Mean Corpuscular Volume 91 FL (80-99) Mean Corpuscular Hemoglobin 30.0 PG (27.0-31.0) Mean Corpuscular Hemoglobin Concent 32.8 G/DL (32.0-36.0) Red Cell Distribution Width 16.2 % (11.6-14.8) H Platelet Count 218 K/UL (150-450) Mean Platelet Volume 5.0 FL (6.5-10.1) L Neutrophils (%) (Auto) % (45.0-75.0) Lymphocytes (%) (Auto) % (20.0-45.0) Monocytes (%) (Auto) % (1.0-10.0) Eosinophils (%) (Auto) % (0.0-3.0) Basophils (%) (Auto) % (0.0-2.0) Differential Total Cells Counted 100 Neutrophils % (Manual) 87 % (45-75) H Lymphocytes % (Manual) 6 % (20-45) L Monocytes % (Manual) 7 % (1-10) Eosinophils % (Manual) 0 % (0-3) Basophils % (Manual) 0 % (0-2) Band Neutrophils 0 % (0-8) Platelet Estimate Adequate Platelet Morphology Normal Hypochromasia 1+ Anisocytosis 1+ Sodium Level 139 MMOL/L (136-145) Potassium Level 4.1 MMOL/L (3.5-5.1) Chloride Level 107 MMOL/L (98-107) Carbon Dioxide Level 21 MMOL/L (21-32) Anion Gap 11 mmol/L (5-15) Blood Urea Nitrogen 77 mg/dL (7-18) H Creatinine 4.2 MG/DL (0.55-1.30) H Estimat Glomerular Filtration Rate mL/min (>60) Glucose Level 110 MG/DL (74-106) H Uric Acid 6.4 MG/DL (2.6-7.2) Calcium Level 6.8 MG/DL (8.5-10.1) L Phosphorus Level 5.2 MG/DL (2.5-4.9) H Magnesium Level 2.0 MG/DL (1.8-2.4) Total Bilirubin 0.4 MG/DL (0.2-1.0) Aspartate Amino Transf (AST/SGOT) 31 U/L (15-37) Alanine Aminotransferase (ALT/SGPT) 19 U/L (12-78) Alkaline Phosphatase 60 U/L (46-116) C-Reactive Protein, Quantitative 16.0 mg/dL (0.00-0.90) H Pro-B-Type Natriuretic Peptide 6142 pg/mL (0-125) H Total Protein 4.9 G/DL (6.4-8.2) L Albumin 1.6 G/DL (3.4-5.0) L Globulin 3.3 g/dL Albumin/Globulin Ratio 0.5 (1.0-2.7) L Random Vancomycin Level 23.9 ug/mL Plan Problems: (1) Cellulitis of upper extremity Assessment & Plan: 84M with RUE cellulitis, edema, erythema. no drainage. has RUE picc line recommend removal of picc. removed at bedside by myself on 05/18. pressure held, hemostasis noted, dressings applied. cath tip sent for cultures DVT duplex studies with acute thrombus IV Abx as per ID UA pending Cx results keep RUE elevated on pillows okay for diet AM labs anticoagulation off load pressure for dti noted cellulitis and edema improved deteriorated intubated on vent support likely respiratory insufficiency labs ordered wean vent okay for tube feeds via ng - on hold currently as per GI will follow with recs thank you (2) Cellulitis Assessment & Plan: Pt presented on admission with reabsorbing blister lateral R heel. Base of injury indurated with delineated margins(L)4cm x (W)3cm.Non- blanching erythema Sacrum ,R and L buttocks(L)8.5cm x (W)9cm, with a partial thickness pressure injury noted to L buttocks. Base of wound is moist and viable (L)2.3cm x (W)3cm. Area around wound tender when minimally palpated. Pt noted to be wearing splint L foot. Per pt he fractured foot a few weeks ago. Splint removed to assess skin integrity. L heel and malleoli are pink and blanchable.Cavilon Skin Barrier applied to L heel and malleoli and each area covered with Optifoam drsg. Splint reapplied. No other skin concerns noted. unchanged Tx.Plan: Apply Moisture Barrier to Buttocks. Cover with Optifoam drsg. Changee very 3 days and prn. Apply Cavilon Skin Barrier to both heels. Cover each heel with Optifoam drsg. Change every 7 days and prn APM/SCOOBY Mattress overlay. Reposition at least every 2hours or as tolerated. Off-load heels with pillow. Bennett Logan May 30, 2019 16:51
[2019-05-30] MEDS: Dyna-Hex 2% Top Sol 2oz TOPIC SCH (19:45)
--- NOTE | 2019-05-30 23:45 | Progress Note ---
DATE: 05/30/2019 SUBJECTIVE: The patient is asleep, arousable to verbal stimuli. The patient is still intubated and has episodes of agitation. MENTAL STATUS EXAMINATION: Waxing and waning consciousness, unable to . Mood is anxious at times. Affect is flat. Thought process, there is a paucity of thought content. Thought content, no suicidal or homicidal ideation. Cognition is impaired. ASSESSMENT: 1. Acute encephalopathy. 2. Failure to thrive. PLAN: We will reassess when the patient is extubated. Piter Pedraza M.D. DR: LUCERO JOB#: [id number] CC:
--- NOTE | 2019-05-30 23:59 | Cardiology Progress Note ---
Assessment/Plan Assessment/Plan 1. Atrial fibrillation with rapid ventricular response,now in sinus rhythm, continue amiodarone. 2. History of hypertension,continue metoprolol. 3. History of renal failure. Subjective Subjective Sinus rhythm at rate of 84. Objective Last 24 Hour Vital Signs Date Time Temp Pulse Resp B/P (MAP) Pulse Ox O2 Delivery O2 Flow Rate FiO2 05/30/19 22:45 137/44 05/30/19 21:13 84 25 65 05/30/19 19:46 65 23 65 05/30/19 19:00 58 17 102/40 (60) 96 05/30/19 18:50 82/34 05/30/19 18:30 60 16 75/27 (43) 96 05/30/19 18:00 94 21 147/38 (74) 93 05/30/19 18:00 82/29 05/30/19 17:30 86 23 141/35 (70) 92 05/30/19 17:15 135/61 05/30/19 17:00 98.3 92 26 138/33 (68) 94 05/30/19 16:41 86 23 65 05/30/19 16:30 85 24 134/45 (74) 95 05/30/19 16:00 65 05/30/19 16:00 Mechanical Ventilator 05/30/19 16:00 91 23 142/42 (75) 95 05/30/19 16:00 91 05/30/19 15:30 90 22 129/53 (78) 95 05/30/19 15:00 89 21 124/55 (78) 96 05/30/19 14:42 56 18 65 05/30/19 14:30 63 16 123/40 (67) 95 05/30/19 14:00 53 16 106/38 (60) 97 05/30/19 13:30 50 15 102/33 (56) 94 05/30/19 13:00 64 18 80/33 (49) 96 05/30/19 13:00 84/35 05/30/19 12:57 82 23 65 05/30/19 12:30 Mechanical Ventilator 05/30/19 12:30 87 26 128/48 (74) 92 05/30/19 12:30 128/48 05/30/19 12:00 86 05/30/19 12:00 60 05/30/19 12:00 99.1 88 25 131/56 (81) 92 05/30/19 11:30 90 23 135/48 (77) 94 05/30/19 11:04 131/59 05/30/19 11:00 60 05/30/19 11:00 88 24 131/59 (83) 93 05/30/19 10:37 118 21 60 05/30/19 10:30 118 22 114/64 (81) 97 05/30/19 10:00 68 17 108/39 (62) 98 05/30/19 09:30 58 19 97/31 (53) 99 05/30/19 09:00 60 18 98/36 (56) 98 05/30/19 08:49 60 19 70 05/30/19 08:30 79 22 110/48 (68) 97 05/30/19 08:00 Mechanical Ventilator 05/30/19 08:00 70 05/30/19 08:00 99.6 58 20 124/76 (92) 98 05/30/19 08:00 56 05/30/19 07:30 56 26 135/44 (74) 95 05/30/19 07:00 62 18 128/51 (76) 96 05/30/19 06:40 64 17 70 05/30/19 06:30 51 18 122/48 (72) 96 05/30/19 06:00 60 18 96/39 (58) 96 05/30/19 06:00 138/61 05/30/19 05:30 85 22 124/48 (73) 95 05/30/19 05:10 85 25 70 05/30/19 05:00 136/52 05/30/19 05:00 88 24 138/61 (86) 95 05/30/19 04:30 88 24 123/48 (73) 94 05/30/19 04:00 99.6 76 23 162/105 (124) 95 05/30/19 04:00 70 05/30/19 04:00 88 05/30/19 04:00 142/56 05/30/19 04:00 Mechanical Ventilator 05/30/19 03:30 61 16 106/37 (60) 97 05/30/19 03:30 61 17 70 05/30/19 03:15 53 16 115/42 (66) 97 05/30/19 03:03 98/41 05/30/19 03:00 67 18 98/41 (60) 97 05/30/19 02:30 66 18 119/43 (68) 96 05/30/19 02:00 59 17 111/50 (70) 97 05/30/19 02:00 116/38 05/30/19 01:30 60 17 70 05/30/19 01:30 56 17 111/39 (63) 98 05/30/19 01:00 56 16 81/33 (49) 98 05/30/19 01:00 103/38 05/30/19 00:30 67 15 111/38 (62) 97 05/30/19 00:15 75 20 131/47 (75) 97 05/30/19 00:00 76 21 129/42 (71) 97 05/30/19 00:00 129/42 05/30/19 00:00 66 05/30/19 00:00 Mechanical Ventilator Intake and Output 05/29/19 05/30/19 19:00 07:00 Intake Total 1716.75 ml 1305.0 ml Output Total 230 ml 450 ml Balance 1486.75 ml 855.0 ml Free Water 50 ml IV Total 1666.75 ml 1305.0 ml Tube Feeding 0 ml 0 ml Output Urine Total 230 ml 450 ml # Bowel Movements 2 2 2D Echo: EF 65%,Mod AR,Elevated RAP, RVSP 30,Small pericardial eff, pleural effusion Laboratory Tests Test 05/30/19 04:20 White Blood Count 11.0 K/UL (4.8-10.8) H Red Blood Count 3.15 M/UL (4.70-6.10) L Hemoglobin 9.4 G/DL (14.2-18.0) L Hematocrit 28.7 % (42.0-52.0) L Mean Corpuscular Volume 91 FL (80-99) Mean Corpuscular Hemoglobin 30.0 PG (27.0-31.0) Mean Corpuscular Hemoglobin Concent 32.8 G/DL (32.0-36.0) Red Cell Distribution Width 16.2 % (11.6-14.8) H Platelet Count 218 K/UL (150-450) Mean Platelet Volume 5.0 FL (6.5-10.1) L Neutrophils (%) (Auto) % (45.0-75.0) Lymphocytes (%) (Auto) % (20.0-45.0) Monocytes (%) (Auto) % (1.0-10.0) Eosinophils (%) (Auto) % (0.0-3.0) Basophils (%) (Auto) % (0.0-2.0) Differential Total Cells Counted 100 Neutrophils % (Manual) 87 % (45-75) H Lymphocytes % (Manual) 6 % (20-45) L Monocytes % (Manual) 7 % (1-10) Eosinophils % (Manual) 0 % (0-3) Basophils % (Manual) 0 % (0-2) Band Neutrophils 0 % (0-8) Platelet Estimate Adequate Platelet Morphology Normal Hypochromasia 1+ Anisocytosis 1+ Sodium Level 139 MMOL/L (136-145) Potassium Level 4.1 MMOL/L (3.5-5.1) Chloride Level 107 MMOL/L (98-107) Carbon Dioxide Level 21 MMOL/L (21-32) Anion Gap 11 mmol/L (5-15) Blood Urea Nitrogen 77 mg/dL (7-18) H Creatinine 4.2 MG/DL (0.55-1.30) H Estimat Glomerular Filtration Rate mL/min (>60) Glucose Level 110 MG/DL (74-106) H Uric Acid 6.4 MG/DL (2.6-7.2) Calcium Level 6.8 MG/DL (8.5-10.1) L Phosphorus Level 5.2 MG/DL (2.5-4.9) H Magnesium Level 2.0 MG/DL (1.8-2.4) Total Bilirubin 0.4 MG/DL (0.2-1.0) Aspartate Amino Transf (AST/SGOT) 31 U/L (15-37) Alanine Aminotransferase (ALT/SGPT) 19 U/L (12-78) Alkaline Phosphatase 60 U/L (46-116) C-Reactive Protein, Quantitative 16.0 mg/dL (0.00-0.90) H Pro-B-Type Natriuretic Peptide 6142 pg/mL (0-125) H Total Protein 4.9 G/DL (6.4-8.2) L Albumin 1.6 G/DL (3.4-5.0) L Globulin 3.3 g/dL Albumin/Globulin Ratio 0.5 (1.0-2.7) L Random Vancomycin Level 23.9 ug/mL Objective HEENT: Atraumatic and normocephalic. Anicteric. Pupils are equal, round, and reactive to light and accommodation. Extraocular muscles intact. NECK: JVP less than 5 cm. No carotid bruit. Carotid upstroke is 2+ bilaterally. CARDIOVASCULAR: Normal S1, S2. Regular rate and rhythm. No murmurs, gallops, or rubs. PMI is at fourth intercostal space in the midclavicular line. LUNGS: Clear to auscultation bilaterally. Positive for wheezing. ABDOMEN: Soft, nontender, and nondistended. No hepatosplenomegaly. Positive bowel sounds. EXTREMITIES: No evidence of edema, clubbing, or cyanosis. Del Garcia MD May 30, 2019 23:59
[2019-05-31] VITALS (45 sets, daily range): BP systolic 76–142; BP diastolic 31–70
[2019-05-31 07:14] LABS: ALANINE AMINOTRANSFERASE 19 U/L (12-78); ALBUMIN 1.8 G/DL (3.4-5.0); ALBUMIN/GLOBULIN RATIO 0.6 (1.0-2.7); ALKALINE PHOSPHATASE 49 U/L (46-116); ANION GAP 13 mmol/L (5-15); ASPARTATE AMINO TRANSFERASE 28 U/L (15-37); BILIRUBIN,TOTAL 0.4 MG/DL (0.2-1.0); BLOOD UREA NITROGEN 79 mg/dL (7-18); CALCIUM 6.7 MG/DL (8.5-10.1); CARBON DIOXIDE 18 MMOL/L (21-32); CHLORIDE 106 MMOL/L (98-107); CREATININE 4.4 MG/DL (0.55-1.30); PHOSPHORUS 5.8 MG/DL (2.5-4.9); SODIUM 137 MMOL/L (136-145)
[2019-05-31] MEDS: Docusate 100mg/10ml Liq NG SCH ×3 (09:30→18:00)
[2019-05-31] MEDS: Pantoprazole Inj IVP SCH ×2 (09:31→20:25)
[2019-05-31] MEDS: Midodrine 10mg tab ORAL SCH ×3 (09:31→18:00)
[2019-05-31] MEDS: Eliquis 2.5mg tablet ORAL SCH ×2 (09:31→18:00)
[2019-05-31] MEDS: Amiodarone 200mg tab ORAL SCH (09:31)
--- NOTE | 2019-05-31 09:52 | Critical Care Progress Note ---
Assessment/Plan Assessment/Plan IMPRESSION AND PLAN: 1. Pneumonia. bilateral 2. Cellulitis. 3. History of COPD. 4. Hypertension. 5. Afib with RVR; rate controlled 6. Respiratory failure, acute 7. Hypoxemia, improved 8. Chronic renal failure 9. severe protein sabina malnutrition 10. chronic anemia PLAN vent support and taper rate as able consider wean when fio2 - on 65% monitor oxygen needs; still high and abnormal cxr monitor imaging for change still with significant infiltrates on cxr await repeat support as able for now in ICU feeds as able off load nutrition as able monitor protein levels follow up cxr on a regular basis medications/laboratory data/nursing notes/ICU care reviewed in detail note reviewed and edited care discussed with RN and RT ICU time spent 38 minutes Critical Care - Subjective Interval Events: care noted and reviewed remains ill on vent high flow oxygen ROS Limited/Unobtainable: Yes Condition: critical EKG Rhythm: Sinus Rhythm Residuals: minimal Tube Feeding Tolerated: yes I&O: Intake and Output 05/30/19 05/31/19 19:00 07:00 Intake Total 1532.625 ml 975.0 ml Output Total 560 ml 570 ml Balance 972.625 ml 405.0 ml Free Water 45 ml IV Total 1397.625 ml 975.0 ml Tube Feeding 0 ml 0 ml Other 90 ml Output Urine Total 560 ml 570 ml # Bowel Movements 4 Critical Care - Objective ET-Tube: 7.5 ET Position: 25 Last 24 Hour Vital Signs Date Time Temp Pulse Resp B/P (MAP) Pulse Ox O2 Delivery O2 Flow Rate FiO2 05/31/19 09:15 66 20 65 05/31/19 07:24 68 26 65 05/31/19 07:00 69 25 109/45 (66) 95 05/31/19 06:30 65 26 108/55 (72) 95 05/31/19 06:00 85 26 110/70 (83) 95 05/31/19 05:30 85 25 118/70 (86) 95 05/31/19 05:26 76 23 65 05/31/19 05:00 100/52 05/31/19 05:00 99 25 118/70 (86) 95 05/31/19 04:30 74 26 136/50 (78) 95 05/31/19 04:00 65 05/31/19 04:00 99.4 60 17 99/39 (59) 96 05/31/19 04:00 Mechanical Ventilator 05/31/19 04:00 131/49 05/31/19 04:00 75 05/31/19 03:30 76 26 131/57 (81) 95 05/31/19 03:18 81 24 65 05/31/19 03:00 82 26 142/48 (79) 94 05/31/19 03:00 140/54 05/31/19 02:30 78 23 140/48 (78) 94 05/31/19 02:00 57 20 108/47 (67) 98 05/31/19 02:00 144/48 05/31/19 01:45 57 18 111/48 (69) 98 05/31/19 01:30 59 17 107/44 (65) 97 05/31/19 01:15 57 17 99/42 (61) 98 05/31/19 01:00 99/42 05/31/19 01:00 58 16 98/39 (58) 97 05/31/19 00:59 58 17 65 05/31/19 00:45 61 17 102/36 (58) 96 05/31/19 00:30 58 17 95/36 (55) 97 05/31/19 00:00 Mechanical Ventilator 05/31/19 00:00 60 05/31/19 00:00 99.2 73 23 115/41 (65) 95 05/31/19 00:00 91/46 05/31/19 00:00 65 05/30/19 23:57 74 23 65 05/30/19 23:30 76 24 131/46 (74) 95 05/30/19 23:00 147/48 05/30/19 23:00 82 26 147/48 (81) 94 05/30/19 22:45 137/44 05/30/19 22:30 81 25 137/44 (75) 94 05/30/19 22:00 72 10 108/40 (62) 95 05/30/19 22:00 108/40 05/30/19 21:30 79 14 133/40 (71) 95 05/30/19 21:13 84 25 65 05/30/19 21:00 83 24 143/45 (77) 95 05/30/19 21:00 143/45 05/30/19 20:45 85 25 133/53 (79) 94 05/30/19 20:30 85 25 153/47 (82) 94 05/30/19 20:15 84 25 139/44 (75) 92 05/30/19 20:00 Mechanical Ventilator 05/30/19 20:00 136/55 05/30/19 20:00 65 05/30/19 20:00 83 05/30/19 20:00 99.0 77 23 136/55 (82) 93 05/30/19 19:46 65 23 65 05/30/19 19:45 57 16 105/35 (58) 95 05/30/19 19:30 53 14 107/44 (65) 97 05/30/19 19:00 58 17 102/40 (60) 96 05/30/19 18:50 82/34 05/30/19 18:30 60 16 75/27 (43) 96 05/30/19 18:00 94 21 147/38 (74) 93 05/30/19 18:00 82/29 05/30/19 17:30 86 23 141/35 (70) 92 05/30/19 17:15 135/61 05/30/19 17:00 98.3 92 26 138/33 (68) 94 05/30/19 16:41 86 23 65 05/30/19 16:30 85 24 134/45 (74) 95 05/30/19 16:00 65 05/30/19 16:00 Mechanical Ventilator 05/30/19 16:00 91 23 142/42 (75) 95 05/30/19 16:00 91 05/30/19 15:30 90 22 129/53 (78) 95 05/30/19 15:00 89 21 124/55 (78) 96 05/30/19 14:42 56 18 65 05/30/19 14:30 63 16 123/40 (67) 95 05/30/19 14:00 53 16 106/38 (60) 97 05/30/19 13:30 50 15 102/33 (56) 94 05/30/19 13:00 64 18 80/33 (49) 96 05/30/19 13:00 84/35 05/30/19 12:57 82 23 65 05/30/19 12:30 Mechanical Ventilator 05/30/19 12:30 87 26 128/48 (74) 92 05/30/19 12:30 128/48 05/30/19 12:00 86 05/30/19 12:00 60 05/30/19 12:00 99.1 88 25 131/56 (81) 92 05/30/19 11:30 90 23 135/48 (77) 94 05/30/19 11:04 131/59 05/30/19 11:00 60 05/30/19 11:00 88 24 131/59 (83) 93 05/30/19 10:37 118 21 60 05/30/19 10:30 118 22 114/64 (81) 97 05/30/19 10:00 68 17 108/39 (62) 98 Labs: Labs Test 05/28/19 20:00 05/29/19 03:20 05/30/19 04:20 05/31/19 04:41 Stool Occult Blood Positive (NEGATIVE) White Blood Count 7.9 K/UL (4.8-10.8) 11.0 K/UL (4.8-10.8) Red Blood Count 2.62 M/UL (4.70-6.10) 3.15 M/UL (4.70-6.10) Hemoglobin 8.0 G/DL (14.2-18.0) 9.4 G/DL (14.2-18.0) Hematocrit 24.2 % (42.0-52.0) 28.7 % (42.0-52.0) Mean Corpuscular Volume 92 FL (80-99) 91 FL (80-99) Mean Corpuscular Hemoglobin 30.3 PG (27.0-31.0) 30.0 PG (27.0-31.0) Mean Corpuscular Hemoglobin Concent 32.9 G/DL (32.0-36.0) 32.8 G/DL (32.0-36.0) Red Cell Distribution Width 15.7 % (11.6-14.8) 16.2 % (11.6-14.8) Platelet Count 160 K/UL (150-450) 218 K/UL (150-450) Mean Platelet Volume 4.8 FL (6.5-10.1) 5.0 FL (6.5-10.1) Neutrophils (%) (Auto) % (45.0-75.0) % (45.0-75.0) Lymphocytes (%) (Auto) % (20.0-45.0) % (20.0-45.0) Monocytes (%) (Auto) % (1.0-10.0) % (1.0-10.0) Eosinophils (%) (Auto) % (0.0-3.0) % (0.0-3.0) Basophils (%) (Auto) % (0.0-2.0) % (0.0-2.0) Differential Total Cells Counted 100 100 Neutrophils % (Manual) 92 % (45-75) 87 % (45-75) Lymphocytes % (Manual) 3 % (20-45) 6 % (20-45) Monocytes % (Manual) 5 % (1-10) 7 % (1-10) Eosinophils % (Manual) 0 % (0-3) 0 % (0-3) Basophils % (Manual) 0 % (0-2) 0 % (0-2) Band Neutrophils 0 % (0-8) 0 % (0-8) Platelet Estimate Adequate Adequate Platelet Morphology Normal Normal Anisocytosis 1+ 1+ Sodium Level 140 MMOL/L (136-145) 139 MMOL/L (136-145) 137 MMOL/L (136-145) Potassium Level 4.4 MMOL/L (3.5-5.1) 4.1 MMOL/L (3.5-5.1) 4.0 MMOL/L (3.5-5.1) Chloride Level 109 MMOL/L (98-107) 107 MMOL/L (98-107) 106 MMOL/L (98-107) Carbon Dioxide Level 22 MMOL/L (21-32) 21 MMOL/L (21-32) 18 MMOL/L (21-32) Anion Gap 9 mmol/L (5-15) 11 mmol/L (5-15) 13 mmol/L (5-15) Blood Urea Nitrogen 76 mg/dL (7-18) 77 mg/dL (7-18) 79 mg/dL (7-18) Creatinine 3.9 MG/DL (0.55-1.30) 4.2 MG/DL (0.55-1.30) 4.4 MG/DL (0.55-1.30) Estimat Glomerular Filtration Rate mL/min (>60) mL/min (>60) mL/min (>60) Glucose Level 124 MG/DL (74-106) 110 MG/DL (74-106) 91 MG/DL (74-106) Uric Acid 6.4 MG/DL (2.6-7.2) 6.4 MG/DL (2.6-7.2) Calcium Level 7.2 MG/DL (8.5-10.1) 6.8 MG/DL (8.5-10.1) 6.7 MG/DL (8.5-10.1) Phosphorus Level 5.0 MG/DL (2.5-4.9) 5.2 MG/DL (2.5-4.9) 5.8 MG/DL (2.5-4.9) Magnesium Level 2.0 MG/DL (1.8-2.4) 2.0 MG/DL (1.8-2.4) 2.0 MG/DL (1.8-2.4) Total Bilirubin 0.4 MG/DL (0.2-1.0) 0.4 MG/DL (0.2-1.0) 0.4 MG/DL (0.2-1.0) Aspartate Amino Transf (AST/SGOT) 30 U/L (15-37) 31 U/L (15-37) 28 U/L (15-37) Alanine Aminotransferase (ALT/SGPT) 22 U/L (12-78) 19 U/L (12-78) 19 U/L (12-78) Alkaline Phosphatase 57 U/L (46-116) 60 U/L (46-116) 49 U/L (46-116) Total Creatine Kinase 56 U/L (26-308) Troponin I 0.152 ng/mL (0.000-0.056) C-Reactive Protein, Quantitative 23.8 mg/dL (0.00-0.90) 16.0 mg/dL (0.00-0.90) Pro-B-Type Natriuretic Peptide 6733 pg/mL (0-125) 6142 pg/mL (0-125) Total Protein 4.5 G/DL (6.4-8.2) 4.9 G/DL (6.4-8.2) 4.9 G/DL (6.4-8.2) Albumin 1.5 G/DL (3.4-5.0) 1.6 G/DL (3.4-5.0) 1.8 G/DL (3.4-5.0) Globulin 3.0 g/dL 3.3 g/dL 3.1 g/dL Albumin/Globulin Ratio 0.5 (1.0-2.7) 0.5 (1.0-2.7) 0.6 (1.0-2.7) Random Vancomycin Level 28.0 ug/mL 23.9 ug/mL 24.0 ug/mL Hypochromasia 1+ Objective: WDWN NAD orally intubated and good volumes noted reduced breath sounds bilaterally with scattered rhonchi [id number] without MRG NABS nontender no HSM no CC mild edema nonfocal reviewed and edited Micro: Microbiology Date/Time Source Procedure Growth Status 05/30/19 13:50 Indwelling Cath Urine Culture - Preliminary NO GROWTH Resulted Accucheck: 130 Korey Mtz MD May 31, 2019 09:52
--- NOTE | 2019-05-31 10:07 | Hematology/Onc Progress Note ---
Assessment/Plan Assessment/Plan # Anemia of chronic disease due to underlying chronic medical issues, multifactorial v Gi bleed --> Anemia workup has been reviewed, rule out gi bleed --> No evidence of hemolysis is noted, peripheral smear has been reviewed. --> Hgb goal >7. Transfuse prn. --> Epogen or iron at this time is not particularly indicated --> Medications have been reviewed --> low threshold for gi evaluation in case has occult + --> hgb trend: 9.3-->9.7-->8.1-->7.6-->8-->9.4 --> transf 05/28/19 with 1 unit prbc --> transfusion is a emergency, no family, no poa, is okay to transfuse # Right upper arm extremity axillary vein dvt --> agree to continue eliquis --> as per cards low dose eliquis --> continue for total of minimum of 3 months --> rescan arm in 3 mo # Cellulitis of upper extremity, likely picc line infection --> as per id on ax --> picc off --> levoflox/vanc-->zosyn/vanc--> zosyn # Renal insufficiency --> per Dr. Mera # Pneumonia --> abx per id # Dehydration. --> goal of euvolemia # Paroxysmal Atrial fibrillation with rapid ventricular response was on amiodarone gtt, now in sinus rhythm. --> per cards On PO amiodarone 200 bid, Lopressor 25 bid and Eliquis 2.5 bid # Dysphagia with ng tube # Dvt ppx eliquis The timing of this note does not necessarily reflect the time of the patient was seen. Greatly appreciate consultation. Subjective Constitutional: Denies: no symptoms, chills, fever, malaise, weakness, other HEENT: Denies: no symptoms, eye pain, blurred vision, tearing, double vision, ear pain, ear discharge, nose pain, nose congestion, throat pain, throat swelling, mouth pain, mouth swelling, other Cardiovascular: Denies: no symptoms, chest pain, edema, irregular heart rate, lightheadedness, palpitations, syncope, other Respiratory: Denies: no symptoms, cough, shortness of breath, SOB with excertion, SOB at rest, sputum, wheezing, other Genitourinary: Denies: no symptoms, burning, discharge, frequency, flank pain, hematuria, incontinence, pain, urgency, other Neurologic/Psychiatric: Denies: no symptoms, anxiety, depressed, emotional problems, headache, numbness, paresthesia, pre-existing deficit, seizure, tingling, tremors, weakness, other Endocrine: Denies: no symptoms, excessive sweating, flushing, intolerance to cold, intolerance to heat, increased hunger, increased thirst, increased urine, unexplained weight gain, unexplained weight loss, other Hematologic/Lymphatic: Denies: no symptoms, anemia, easy bleeding, easy bruising, adenopathy, other Allergies: Coded Allergies: No Known Allergies (Unverified , 05/18/19) Subjective 05/24: awake and alert, v mask, labs reviewed, apixaban 05/25: as per gi, ngt and eliquis tolerated 05/26: pending clearance but still with ng and nonrebreather 05/27: hypoxic yesterday, deteriorated, coded, now intubated, icu, labs noted 05/28: icu, levophed gtt, hgb 7.6, repeat cbc 05/29: remains in the icu, given prbc last night, no bleeding 05/30: no events, no bleeding, ++ fredo and on pressor 05/31: intubated, bp better on pressor, no bleeding, coag ordered Objective Objective Current Medications Medications (Trade) Dose Ordered Sig/Phillip Route PRN Reason Start Time Stop Time Status Last Admin Dose Admin Acetaminophen (Tylenol) 500 mg Q4H PRN GT Mild Pain/Temp > 100.5 05/27/19 07:45 06/19/19 20:29 05/28/19 15:39 Amiodarone HCl (Cordarone) 200 mg DAILY ORAL 05/26/19 09:00 06/21/19 20:59 05/31/19 09:31 Apixaban (Eliquis) 2.5 mg BID ORAL 05/26/19 09:00 06/25/19 08:59 05/31/19 09:31 Chlorhexidine Gluconate (Reina-Hex 2%) 1 applic DAILY@1999 TOPIC 05/27/19 20:00 06/26/19 19:59 05/30/19 19:45 Daptomycin 500 mg/ Sodium Chloride 55 ml @ 100 mls/hr Q48H IV 05/29/19 13:00 06/05/19 12:59 05/29/19 13:57 Docusate Sodium (Colace) 100 mg TID NG 05/27/19 09:00 06/20/19 08:59 05/31/19 09:30 Midodrine (Pro-Amatine) 10 mg THREE TIMES A DAY ORAL 05/28/19 14:45 06/27/19 14:44 05/31/19 09:31 Norepinephrine Bitartrate 4 mg/ Dextrose 250 ml @ 0 mls/hr Q24H IV 05/29/19 19:20 06/28/19 19:19 05/30/19 22:45 Pantoprazole (Protonix) 40 mg EVERY 12 HOURS IVP 05/27/19 10:45 06/26/19 10:44 05/31/19 09:31 Piperacillin Sod/ Tazobactam Sod 3.375 gm/Sodium Chloride 110 ml @ 27.5 mls/hr Q12H IVPB 05/27/19 11:30 06/03/19 11:29 05/30/19 23:48 Sodium Chloride 1,000 ml @ 75 mls/hr [id number] IV 05/27/19 10:45 06/26/19 10:44 05/31/19 09:31 Last 24 Hour Vital Signs Date Time Temp Pulse Resp B/P (MAP) Pulse Ox O2 Delivery O2 Flow Rate FiO2 05/31/19 09:15 66 20 65 05/31/19 07:24 68 26 65 05/31/19 07:00 69 25 109/45 (66) 95 05/31/19 06:30 65 26 108/55 (72) 95 05/31/19 06:00 85 26 110/70 (83) 95 05/31/19 05:30 85 25 118/70 (86) 95 05/31/19 05:26 76 23 65 05/31/19 05:00 100/52 05/31/19 05:00 99 25 118/70 (86) 95 05/31/19 04:30 74 26 136/50 (78) 95 05/31/19 04:00 65 05/31/19 04:00 99.4 60 17 99/39 (59) 96 05/31/19 04:00 Mechanical Ventilator 05/31/19 04:00 131/49 05/31/19 04:00 75 05/31/19 03:30 76 26 131/57 (81) 95 05/31/19 03:18 81 24 65 05/31/19 03:00 82 26 142/48 (79) 94 05/31/19 03:00 140/54 05/31/19 02:30 78 23 140/48 (78) 94 05/31/19 02:00 57 20 108/47 (67) 98 05/31/19 02:00 144/48 05/31/19 01:45 57 18 111/48 (69) 98 05/31/19 01:30 59 17 107/44 (65) 97 05/31/19 01:15 57 17 99/42 (61) 98 05/31/19 01:00 99/42 05/31/19 01:00 58 16 98/39 (58) 97 05/31/19 00:59 58 17 65 05/31/19 00:45 61 17 102/36 (58) 96 05/31/19 00:30 58 17 95/36 (55) 97 05/31/19 00:00 Mechanical Ventilator 05/31/19 00:00 60 05/31/19 00:00 99.2 73 23 115/41 (65) 95 05/31/19 00:00 91/46 05/31/19 00:00 65 05/30/19 23:57 74 23 65 05/30/19 23:30 76 24 131/46 (74) 95 05/30/19 23:00 147/48 05/30/19 23:00 82 26 147/48 (81) 94 05/30/19 22:45 137/44 05/30/19 22:30 81 25 137/44 (75) 94 05/30/19 22:00 72 10 108/40 (62) 95 05/30/19 22:00 108/40 05/30/19 21:30 79 14 133/40 (71) 95 05/30/19 21:13 84 25 65 05/30/19 21:00 83 24 143/45 (77) 95 05/30/19 21:00 143/45 05/30/19 20:45 85 25 133/53 (79) 94 05/30/19 20:30 85 25 153/47 (82) 94 05/30/19 20:15 84 25 139/44 (75) 92 05/30/19 20:00 Mechanical Ventilator 05/30/19 20:00 136/55 05/30/19 20:00 65 05/30/19 20:00 83 05/30/19 20:00 99.0 77 23 136/55 (82) 93 05/30/19 19:46 65 23 65 05/30/19 19:45 57 16 105/35 (58) 95 05/30/19 19:30 53 14 107/44 (65) 97 05/30/19 19:00 58 17 102/40 (60) 96 05/30/19 18:50 82/34 05/30/19 18:30 60 16 75/27 (43) 96 05/30/19 18:00 94 21 147/38 (74) 93 05/30/19 18:00 82/29 05/30/19 17:30 86 23 141/35 (70) 92 05/30/19 17:15 135/61 05/30/19 17:00 98.3 92 26 138/33 (68) 94 05/30/19 16:41 86 23 65 05/30/19 16:30 85 24 134/45 (74) 95 05/30/19 16:00 65 05/30/19 16:00 Mechanical Ventilator 05/30/19 16:00 91 23 142/42 (75) 95 05/30/19 16:00 91 05/30/19 15:30 90 22 129/53 (78) 95 05/30/19 15:00 89 21 124/55 (78) 96 05/30/19 14:42 56 18 65 05/30/19 14:30 63 16 123/40 (67) 95 05/30/19 14:00 53 16 106/38 (60) 97 05/30/19 13:30 50 15 102/33 (56) 94 05/30/19 13:00 64 18 80/33 (49) 96 05/30/19 13:00 84/35 05/30/19 12:57 82 23 65 05/30/19 12:30 Mechanical Ventilator 05/30/19 12:30 87 26 128/48 (74) 92 05/30/19 12:30 128/48 05/30/19 12:00 86 05/30/19 12:00 60 05/30/19 12:00 99.1 88 25 131/56 (81) 92 05/30/19 11:30 90 23 135/48 (77) 94 05/30/19 11:04 131/59 05/30/19 11:00 60 05/30/19 11:00 88 24 131/59 (83) 93 05/30/19 10:37 118 21 60 05/30/19 10:30 118 22 114/64 (81) 97 05/30/19 10:00 68 17 108/39 (62) 98 05/30/19 09:30 58 19 97/31 (53) 99 05/30/19 09:00 60 18 98/36 (56) 98 05/30/19 08:49 60 19 70 05/30/19 08:30 79 22 110/48 (68) 97 05/30/19 08:00 Mechanical Ventilator 05/30/19 08:00 70 05/30/19 08:00 99.6 58 20 124/76 (92) 98 05/30/19 08:00 56 05/30/19 07:30 56 26 135/44 (74) 95 05/30/19 07:00 62 18 128/51 (76) 96 05/30/19 06:40 64 17 70 05/30/19 06:30 51 18 122/48 (72) 96 05/30/19 06:00 60 18 96/39 (58) 96 05/30/19 06:00 138/61 05/30/19 05:30 85 22 124/48 (73) 95 05/30/19 05:10 85 25 70 05/30/19 05:00 136/52 05/30/19 05:00 88 24 138/61 (86) 95 05/30/19 04:30 88 24 123/48 (73) 94 05/30/19 04:00 99.6 76 23 162/105 (124) 95 05/30/19 04:00 70 05/30/19 04:00 88 05/30/19 04:00 142/56 05/30/19 04:00 Mechanical Ventilator 05/30/19 03:30 61 16 106/37 (60) 97 05/30/19 03:30 61 17 70 05/30/19 03:15 53 16 115/42 (66) 97 05/30/19 03:03 98/41 05/30/19 03:00 67 18 98/41 (60) 97 05/30/19 02:30 66 18 119/43 (68) 96 05/30/19 02:00 59 17 111/50 (70) 97 05/30/19 02:00 116/38 05/30/19 01:30 60 17 70 05/30/19 01:30 56 17 111/39 (63) 98 05/30/19 01:00 56 16 81/33 (49) 98 05/30/19 01:00 103/38 05/30/19 00:30 67 15 111/38 (62) 97 05/30/19 00:15 75 20 131/47 (75) 97 05/30/19 00:00 76 21 129/42 (71) 97 05/30/19 00:00 129/42 05/30/19 00:00 66 05/30/19 00:00 Mechanical Ventilator 05/29/19 23:45 52 16 101/41 (61) 97 05/29/19 23:30 54 9 113/42 (65) 97 05/29/19 23:27 48 17 70 05/29/19 23:15 47 1 104/44 (64) 97 05/29/19 23:00 58 11 103/41 (61) 98 05/29/19 23:00 103/41 05/29/19 22:30 55 14 113/41 (65) 97 05/29/19 22:00 124/42 05/29/19 22:00 56 11 110/40 (63) 97 05/29/19 21:30 59 13 109/40 (63) 97 05/29/19 21:00 64 11 102/42 (62) 97 05/29/19 21:00 102/42 05/29/19 20:51 63 18 70 05/29/19 20:30 69 15 116/49 (71) 95 05/29/19 20:03 122/51 05/29/19 20:00 99.0 74 19 122/51 (74) 93 05/29/19 20:00 Mechanical Ventilator 05/29/19 20:00 69 05/29/19 20:00 132/46 05/29/19 20:00 70 05/29/19 19:30 69 16 119/46 (70) 95 05/29/19 19:30 69 17 70 05/29/19 19:00 70 14 112/37 (62) 97 05/29/19 19:00 112/37 05/29/19 19:00 112/37 05/29/19 19:00 112/37 05/29/19 19:00 112/37 05/29/19 18:30 99 25 173/62 (99) 88 05/29/19 18:00 112/51 05/29/19 18:00 59 25 153/51 (85) 91 05/29/19 17:30 59 22 122/42 (68) 93 05/29/19 17:05 78 22 70 05/29/19 17:00 74 22 129/55 (79) 92 05/29/19 17:00 129/55 05/29/19 16:30 102 21 135/56 (82) 94 05/29/19 16:00 61 20 118/47 (70) 92 05/29/19 16:00 70 05/29/19 16:00 76 05/29/19 16:00 Mechanical Ventilator 05/29/19 15:30 56 23 122/38 (66) 95 05/29/19 15:17 91 21 70 05/29/19 15:00 138/40 05/29/19 15:00 70 21 138/40 (72) 95 05/29/19 14:30 60 17 121/44 (69) 95 05/29/19 14:00 59 18 131/49 (76) 97 05/29/19 14:00 131/49 05/29/19 13:45 75 20 107/45 (65) 95 05/29/19 13:30 79 22 125/47 (73) 94 05/29/19 13:15 78 23 116/49 (71) 94 05/29/19 13:00 75 23 143/46 (78) 94 05/29/19 13:00 143/46 05/29/19 12:45 69 20 138/70 (92) 94 05/29/19 12:45 71 22 70 05/29/19 12:30 68 19 79/33 (48) 97 05/29/19 12:30 79/33 05/29/19 12:15 67 19 81/35 (50) 96 05/29/19 12:00 Mechanical Ventilator 05/29/19 12:00 87 05/29/19 12:00 99.6 05/29/19 12:00 100/42 05/29/19 12:00 84 24 100/42 (61) 92 05/29/19 12:00 70 05/29/19 11:41 101/42 05/29/19 11:40 101/42 05/29/19 11:30 74 23 101/42 (61) 94 05/29/19 11:00 75 22 97/41 (59) 94 05/29/19 11:00 97/41 05/29/19 10:53 68 17 70 05/29/19 10:30 74 22 155/48 (83) 94 Intake and Output 05/30/19 05/31/19 19:00 07:00 Intake Total 1532.625 ml 975.0 ml Output Total 560 ml 570 ml Balance 972.625 ml 405.0 ml Free Water 45 ml IV Total 1397.625 ml 975.0 ml Tube Feeding 0 ml 0 ml Other 90 ml Output Urine Total 560 ml 570 ml # Bowel Movements 4 Labs Test 05/28/19 20:00 05/29/19 03:20 05/30/19 04:20 05/31/19 04:41 Stool Occult Blood Positive (NEGATIVE) White Blood Count 7.9 K/UL (4.8-10.8) 11.0 K/UL (4.8-10.8) Red Blood Count 2.62 M/UL (4.70-6.10) 3.15 M/UL (4.70-6.10) Hemoglobin 8.0 G/DL (14.2-18.0) 9.4 G/DL (14.2-18.0) Hematocrit 24.2 % (42.0-52.0) 28.7 % (42.0-52.0) Mean Corpuscular Volume 92 FL (80-99) 91 FL (80-99) Mean Corpuscular Hemoglobin 30.3 PG (27.0-31.0) 30.0 PG (27.0-31.0) Mean Corpuscular Hemoglobin Concent 32.9 G/DL (32.0-36.0) 32.8 G/DL (32.0-36.0) Red Cell Distribution Width 15.7 % (11.6-14.8) 16.2 % (11.6-14.8) Platelet Count 160 K/UL (150-450) 218 K/UL (150-450) Mean Platelet Volume 4.8 FL (6.5-10.1) 5.0 FL (6.5-10.1) Neutrophils (%) (Auto) % (45.0-75.0) % (45.0-75.0) Lymphocytes (%) (Auto) % (20.0-45.0) % (20.0-45.0) Monocytes (%) (Auto) % (1.0-10.0) % (1.0-10.0) Eosinophils (%) (Auto) % (0.0-3.0) % (0.0-3.0) Basophils (%) (Auto) % (0.0-2.0) % (0.0-2.0) Differential Total Cells Counted 100 100 Neutrophils % (Manual) 92 % (45-75) 87 % (45-75) Lymphocytes % (Manual) 3 % (20-45) 6 % (20-45) Monocytes % (Manual) 5 % (1-10) 7 % (1-10) Eosinophils % (Manual) 0 % (0-3) 0 % (0-3) Basophils % (Manual) 0 % (0-2) 0 % (0-2) Band Neutrophils 0 % (0-8) 0 % (0-8) Platelet Estimate Adequate Adequate Platelet Morphology Normal Normal Anisocytosis 1+ 1+ Sodium Level 140 MMOL/L (136-145) 139 MMOL/L (136-145) 137 MMOL/L (136-145) Potassium Level 4.4 MMOL/L (3.5-5.1) 4.1 MMOL/L (3.5-5.1) 4.0 MMOL/L (3.5-5.1) Chloride Level 109 MMOL/L (98-107) 107 MMOL/L (98-107) 106 MMOL/L (98-107) Carbon Dioxide Level 22 MMOL/L (21-32) 21 MMOL/L (21-32) 18 MMOL/L (21-32) Anion Gap 9 mmol/L (5-15) 11 mmol/L (5-15) 13 mmol/L (5-15) Blood Urea Nitrogen 76 mg/dL (7-18) 77 mg/dL (7-18) 79 mg/dL (7-18) Creatinine 3.9 MG/DL (0.55-1.30) 4.2 MG/DL (0.55-1.30) 4.4 MG/DL (0.55-1.30) Estimat Glomerular Filtration Rate mL/min (>60) mL/min (>60) mL/min (>60) Glucose Level 124 MG/DL (74-106) 110 MG/DL (74-106) 91 MG/DL (74-106) Uric Acid 6.4 MG/DL (2.6-7.2) 6.4 MG/DL (2.6-7.2) Calcium Level 7.2 MG/DL (8.5-10.1) 6.8 MG/DL (8.5-10.1) 6.7 MG/DL (8.5-10.1) Phosphorus Level 5.0 MG/DL (2.5-4.9) 5.2 MG/DL (2.5-4.9) 5.8 MG/DL (2.5-4.9) Magnesium Level 2.0 MG/DL (1.8-2.4) 2.0 MG/DL (1.8-2.4) 2.0 MG/DL (1.8-2.4) Total Bilirubin 0.4 MG/DL (0.2-1.0) 0.4 MG/DL (0.2-1.0) 0.4 MG/DL (0.2-1.0) Aspartate Amino Transf (AST/SGOT) 30 U/L (15-37) 31 U/L (15-37) 28 U/L (15-37) Alanine Aminotransferase (ALT/SGPT) 22 U/L (12-78) 19 U/L (12-78) 19 U/L (12-78) Alkaline Phosphatase 57 U/L (46-116) 60 U/L (46-116) 49 U/L (46-116) Total Creatine Kinase 56 U/L (26-308) Troponin I 0.152 ng/mL (0.000-0.056) C-Reactive Protein, Quantitative 23.8 mg/dL (0.00-0.90) 16.0 mg/dL (0.00-0.90) Pro-B-Type Natriuretic Peptide 6733 pg/mL (0-125) 6142 pg/mL (0-125) Total Protein 4.5 G/DL (6.4-8.2) 4.9 G/DL (6.4-8.2) 4.9 G/DL (6.4-8.2) Albumin 1.5 G/DL (3.4-5.0) 1.6 G/DL (3.4-5.0) 1.8 G/DL (3.4-5.0) Globulin 3.0 g/dL 3.3 g/dL 3.1 g/dL Albumin/Globulin Ratio 0.5 (1.0-2.7) 0.5 (1.0-2.7) 0.6 (1.0-2.7) Random Vancomycin Level 28.0 ug/mL 23.9 ug/mL 24.0 ug/mL Hypochromasia 1+ Micro Microbiology Date/Time Source Procedure Growth Status 05/30/19 13:50 Indwelling Cath Urine Culture - Preliminary NO GROWTH Resulted Height (Feet): 5 Height (Inches): 7.00 Weight (Pounds): 191 Objective PE: Vitals: reviewed General Appearance: NAD HEENT: normocephalic, atraumatic++ ngt Neck: non-tender, normal alignment Respiratory/Chest: VENT++ Cardiovascular/Chest: normal peripheral pulses, normal rate Abdomen: normal bowel sounds, soft, nontender Extremities: normal range of motion ++ right arm swelling Suleman Addison MD May 31, 2019 10:07
--- NOTE | 2019-05-31 10:21 | Infectious Diseases Prog Note ---
Assessment/Plan Assessment/Plan 84 yo male with PMHx of HTN who was sent to the ED on 05/18/19 from his detention for possible picc line infection. Swelling around PICC line Minimal to no erythema and no purulent drainage Not likely to be infected Blood Cx 05/18/19 - NGTD PICC Tip Cx 05/18/19 - NGTD PICC line removed 05/18/19 No Leukocytosis No fever OM - Let foot On Vancomycin at nursing End date early May PNA on 8L NC CXR - Some LLL Atelectasis vs PNA, Nodules CT 05/20/19 - Bilateral upper lobe infiltrates worse on the right. Consider pneumonia. Bilateral pleural effusions moderate in size HTN PLAN - Continue Daptomycin for OM End date per detention MD - 05/28/19 SP Vancomycin per pharmacy - Stopped for increasing Cr - Continue Zosyn #5 for probable PNA - 05/27/19 SP Levofloxacin #5 - Get OSH records for OM - Repeat Cx of blood, Sputum and Urine - Monitor CBC and Temps Thank you for this consult. [facility] will continue to follow the patient with you during this hospitalization. Subjective Allergies: Coded Allergies: No Known Allergies (Unverified , 05/18/19) Subjective On Vent 65% O2 Afebrile Mild Leukocytosis yesterday Objective Vital Signs Last 24 Hour Vital Signs Date Time Temp Pulse Resp B/P (MAP) Pulse Ox O2 Delivery O2 Flow Rate FiO2 05/31/19 09:15 66 20 65 05/31/19 07:24 68 26 65 05/31/19 07:00 69 25 109/45 (66) 95 05/31/19 06:30 65 26 108/55 (72) 95 05/31/19 06:00 85 26 110/70 (83) 95 05/31/19 05:30 85 25 118/70 (86) 95 05/31/19 05:26 76 23 65 05/31/19 05:00 100/52 05/31/19 05:00 99 25 118/70 (86) 95 05/31/19 04:30 74 26 136/50 (78) 95 05/31/19 04:00 65 05/31/19 04:00 99.4 60 17 99/39 (59) 96 05/31/19 04:00 Mechanical Ventilator 05/31/19 04:00 131/49 05/31/19 04:00 75 05/31/19 03:30 76 26 131/57 (81) 95 05/31/19 03:18 81 24 65 05/31/19 03:00 82 26 142/48 (79) 94 05/31/19 03:00 140/54 05/31/19 02:30 78 23 140/48 (78) 94 05/31/19 02:00 57 20 108/47 (67) 98 05/31/19 02:00 144/48 05/31/19 01:45 57 18 111/48 (69) 98 05/31/19 01:30 59 17 107/44 (65) 97 05/31/19 01:15 57 17 99/42 (61) 98 05/31/19 01:00 99/42 05/31/19 01:00 58 16 98/39 (58) 97 05/31/19 00:59 58 17 65 05/31/19 00:45 61 17 102/36 (58) 96 05/31/19 00:30 58 17 95/36 (55) 97 05/31/19 00:00 Mechanical Ventilator 05/31/19 00:00 60 05/31/19 00:00 99.2 73 23 115/41 (65) 95 05/31/19 00:00 91/46 05/31/19 00:00 65 05/30/19 23:57 74 23 65 05/30/19 23:30 76 24 131/46 (74) 95 05/30/19 23:00 147/48 05/30/19 23:00 82 26 147/48 (81) 94 05/30/19 22:45 137/44 05/30/19 22:30 81 25 137/44 (75) 94 05/30/19 22:00 72 10 108/40 (62) 95 05/30/19 22:00 108/40 05/30/19 21:30 79 14 133/40 (71) 95 05/30/19 21:13 84 25 65 05/30/19 21:00 83 24 143/45 (77) 95 05/30/19 21:00 143/45 05/30/19 20:45 85 25 133/53 (79) 94 05/30/19 20:30 85 25 153/47 (82) 94 05/30/19 20:15 84 25 139/44 (75) 92 05/30/19 20:00 Mechanical Ventilator 05/30/19 20:00 136/55 05/30/19 20:00 65 05/30/19 20:00 83 05/30/19 20:00 99.0 77 23 136/55 (82) 93 05/30/19 19:46 65 23 65 05/30/19 19:45 57 16 105/35 (58) 95 05/30/19 19:30 53 14 107/44 (65) 97 05/30/19 19:00 58 17 102/40 (60) 96 05/30/19 18:50 82/34 05/30/19 18:30 60 16 75/27 (43) 96 05/30/19 18:00 94 21 147/38 (74) 93 05/30/19 18:00 82/29 05/30/19 17:30 86 23 141/35 (70) 92 05/30/19 17:15 135/61 05/30/19 17:00 98.3 92 26 138/33 (68) 94 05/30/19 16:41 86 23 65 05/30/19 16:30 85 24 134/45 (74) 95 05/30/19 16:00 65 05/30/19 16:00 Mechanical Ventilator 05/30/19 16:00 91 23 142/42 (75) 95 05/30/19 16:00 91 05/30/19 15:30 90 22 129/53 (78) 95 05/30/19 15:00 89 21 124/55 (78) 96 05/30/19 14:42 56 18 65 05/30/19 14:30 63 16 123/40 (67) 95 05/30/19 14:00 53 16 106/38 (60) 97 05/30/19 13:30 50 15 102/33 (56) 94 05/30/19 13:00 64 18 80/33 (49) 96 05/30/19 13:00 84/35 05/30/19 12:57 82 23 65 05/30/19 12:30 Mechanical Ventilator 05/30/19 12:30 87 26 128/48 (74) 92 05/30/19 12:30 128/48 05/30/19 12:00 86 05/30/19 12:00 60 05/30/19 12:00 99.1 88 25 131/56 (81) 92 05/30/19 11:30 90 23 135/48 (77) 94 05/30/19 11:04 131/59 05/30/19 11:00 60 05/30/19 11:00 88 24 131/59 (83) 93 05/30/19 10:37 118 21 60 05/30/19 10:30 118 22 114/64 (81) 97 Height (Feet): 5 Height (Inches): 7.00 Weight (Pounds): 191 Objective Gen: Intubatd on vent, Not following HEENT: NCAT, MMM, EOMI LUNGS: Coarse B/L, Tight and wheezy CARDS: RRR, S1, S2 ABD: Soft, NT, ND Microbiology Date/Time Source Procedure Growth Status 05/30/19 13:50 Indwelling Cath Urine Culture - Preliminary NO GROWTH Resulted Laboratory Tests Test 05/31/19 04:41 Sodium Level 137 MMOL/L (136-145) Potassium Level 4.0 MMOL/L (3.5-5.1) Chloride Level 106 MMOL/L (98-107) Carbon Dioxide Level 18 MMOL/L (21-32) L Anion Gap 13 mmol/L (5-15) Blood Urea Nitrogen 79 mg/dL (7-18) H Creatinine 4.4 MG/DL (0.55-1.30) H Estimat Glomerular Filtration Rate mL/min (>60) Glucose Level 91 MG/DL (74-106) Calcium Level 6.7 MG/DL (8.5-10.1) L Phosphorus Level 5.8 MG/DL (2.5-4.9) H Magnesium Level 2.0 MG/DL (1.8-2.4) Total Bilirubin 0.4 MG/DL (0.2-1.0) Aspartate Amino Transf (AST/SGOT) 28 U/L (15-37) Alanine Aminotransferase (ALT/SGPT) 19 U/L (12-78) Alkaline Phosphatase 49 U/L (46-116) Total Protein 4.9 G/DL (6.4-8.2) L Albumin 1.8 G/DL (3.4-5.0) L Globulin 3.1 g/dL Albumin/Globulin Ratio 0.6 (1.0-2.7) L Random Vancomycin Level 24.0 ug/mL Current Medications Medications (Trade) Dose Ordered Sig/Phillip Route PRN Reason Start Time Stop Time Status Last Admin Dose Admin Acetaminophen (Tylenol) 500 mg Q4H PRN GT Mild Pain/Temp > 100.5 05/27/19 07:45 06/19/19 20:29 05/28/19 15:39 Amiodarone HCl (Cordarone) 200 mg DAILY ORAL 05/26/19 09:00 06/21/19 20:59 05/31/19 09:31 Apixaban (Eliquis) 2.5 mg BID ORAL 05/26/19 09:00 06/25/19 08:59 05/31/19 09:31 Chlorhexidine Gluconate (Reina-Hex 2%) 1 applic DAILY@2000 TOPIC 05/27/19 20:00 06/26/19 19:59 05/30/19 19:45 Daptomycin 500 mg/ Sodium Chloride 55 ml @ 100 mls/hr Q48H IV 05/29/19 13:00 06/05/19 12:59 05/29/19 13:57 Docusate Sodium (Colace) 100 mg TID NG 05/27/19 09:00 06/20/19 08:59 05/31/19 09:30 Midodrine (Pro-Amatine) 10 mg THREE TIMES A DAY ORAL 05/28/19 14:45 06/27/19 14:44 05/31/19 09:31 Norepinephrine Bitartrate 4 mg/ Dextrose 250 ml @ 0 mls/hr Q24H IV 05/29/19 19:20 06/28/19 19:19 05/30/19 22:45 Pantoprazole (Protonix) 40 mg EVERY 12 HOURS IVP 05/27/19 10:45 06/26/19 10:44 05/31/19 09:31 Piperacillin Sod/ Tazobactam Sod 3.375 gm/Sodium Chloride 110 ml @ 27.5 mls/hr Q12H IVPB 05/27/19 11:30 06/03/19 11:29 05/30/19 23:48 Sodium Chloride 1,000 ml @ 75 mls/hr [id number] IV 05/27/19 10:45 06/26/19 10:44 05/31/19 09:31 Jimbo Dodd MD May 31, 2019 10:20
--- NOTE | 2019-05-31 12:12 | Nephrology Progress Note ---
Assessment/Plan Problem List: (1) Renal failure (ARF), acute on chronic Assessment: Cr rising (2) Cellulitis of upper extremity (3) A-fib (4) Pneumonia (5) UTI (urinary tract infection) (6) Anemia Assessment: worsened (7) Hypothyroidism Assessment - KIMO on CKD - Urinary tract infection. - Anemia- - Dehydration. - Cellulitis of Upper extremity - HTN Plan in ICU- intubated on pressors BP meds and Mind altering meds discontinued start midodrine check vanco levels - hold vanco doses previously: Per cardiology Anemia kumari- Avoid Nephrotoxics Per ID Allow CHANDA inhibitor to continue as long as renal function does not worsen. PICC line has been removed. CXR: Increased right pleural effusion and similar left pleural effusion. Increased interstitial and hazy opacities throughout the lungs. Subjective ROS Limited/Unobtainable: Yes Objective Objective Last 24 Hour Vital Signs Date Time Temp Pulse Resp B/P (MAP) Pulse Ox O2 Delivery O2 Flow Rate FiO2 05/31/19 11:00 65 17 76/31 (46) 96 05/31/19 10:52 81 26 65 05/31/19 10:30 83 21 128/42 (70) 94 05/31/19 10:00 126/39 05/31/19 10:00 85 23 126/39 (68) 94 05/31/19 09:30 84 20 138/52 (80) 95 05/31/19 09:15 66 20 65 05/31/19 09:00 66 20 107/45 (65) 97 05/31/19 09:00 107/45 05/31/19 08:30 62 19 117/52 (73) 97 05/31/19 08:00 63 05/31/19 08:00 Mechanical Ventilator 05/31/19 08:00 65 05/31/19 08:00 104/43 05/31/19 08:00 98.2 63 19 104/43 (63) 97 05/31/19 07:30 63 17 108/37 (60) 97 05/31/19 07:24 68 26 65 05/31/19 07:00 69 25 109/45 (66) 95 05/31/19 07:00 108/37 05/31/19 06:30 65 26 108/55 (72) 95 05/31/19 06:00 85 26 110/70 (83) 95 05/31/19 05:30 85 25 118/70 (86) 95 05/31/19 05:26 76 23 65 05/31/19 05:00 100/52 05/31/19 05:00 99 25 118/70 (86) 95 05/31/19 04:30 74 26 136/50 (78) 95 05/31/19 04:00 65 05/31/19 04:00 99.4 60 17 99/39 (59) 96 05/31/19 04:00 Mechanical Ventilator 05/31/19 04:00 131/49 05/31/19 04:00 75 05/31/19 03:30 76 26 131/57 (81) 95 05/31/19 03:18 81 24 65 05/31/19 03:00 82 26 142/48 (79) 94 05/31/19 03:00 140/54 05/31/19 02:30 78 23 140/48 (78) 94 05/31/19 02:00 57 20 108/47 (67) 98 05/31/19 02:00 144/48 05/31/19 01:45 57 18 111/48 (69) 98 05/31/19 01:30 59 17 107/44 (65) 97 05/31/19 01:15 57 17 99/42 (61) 98 05/31/19 01:00 99/42 05/31/19 01:00 58 16 98/39 (58) 97 05/31/19 00:59 58 17 65 05/31/19 00:45 61 17 102/36 (58) 96 05/31/19 00:30 58 17 95/36 (55) 97 05/31/19 00:00 Mechanical Ventilator 05/31/19 00:00 60 05/31/19 00:00 99.2 73 23 115/41 (65) 95 05/31/19 00:00 91/46 05/31/19 00:00 65 05/30/19 23:57 74 23 65 05/30/19 23:30 76 24 131/46 (74) 95 05/30/19 23:00 147/48 05/30/19 23:00 82 26 147/48 (81) 94 05/30/19 22:45 137/44 05/30/19 22:30 81 25 137/44 (75) 94 05/30/19 22:00 72 10 108/40 (62) 95 05/30/19 22:00 108/40 05/30/19 21:30 79 14 133/40 (71) 95 05/30/19 21:13 84 25 65 05/30/19 21:00 83 24 143/45 (77) 95 05/30/19 21:00 143/45 05/30/19 20:45 85 25 133/53 (79) 94 05/30/19 20:30 85 25 153/47 (82) 94 05/30/19 20:15 84 25 139/44 (75) 92 05/30/19 20:00 Mechanical Ventilator 05/30/19 20:00 136/55 05/30/19 20:00 65 05/30/19 20:00 83 05/30/19 20:00 99.0 77 23 136/55 (82) 93 05/30/19 19:46 65 23 65 05/30/19 19:45 57 16 105/35 (58) 95 05/30/19 19:30 53 14 107/44 (65) 97 05/30/19 19:00 58 17 102/40 (60) 96 05/30/19 18:50 82/34 05/30/19 18:30 60 16 75/27 (43) 96 05/30/19 18:00 94 21 147/38 (74) 93 05/30/19 18:00 82/29 05/30/19 17:30 86 23 141/35 (70) 92 05/30/19 17:15 135/61 05/30/19 17:00 98.3 92 26 138/33 (68) 94 05/30/19 16:41 86 23 65 05/30/19 16:30 85 24 134/45 (74) 95 05/30/19 16:00 65 05/30/19 16:00 Mechanical Ventilator 05/30/19 16:00 91 23 142/42 (75) 95 05/30/19 16:00 91 05/30/19 15:30 90 22 129/53 (78) 95 05/30/19 15:00 89 21 124/55 (78) 96 05/30/19 14:42 56 18 65 05/30/19 14:30 63 16 123/40 (67) 95 05/30/19 14:00 53 16 106/38 (60) 97 05/30/19 13:30 50 15 102/33 (56) 94 05/30/19 13:00 64 18 80/33 (49) 96 05/30/19 13:00 84/35 05/30/19 12:57 82 23 65 05/30/19 12:30 Mechanical Ventilator 05/30/19 12:30 87 26 128/48 (74) 92 05/30/19 12:30 128/48 Intake and Output 05/30/19 05/31/19 19:00 07:00 Intake Total 1532.625 ml 1065.0 ml Output Total 560 ml 570 ml Balance 972.625 ml 495.0 ml Free Water 45 ml IV Total 1397.625 ml 1065.0 ml Tube Feeding 0 ml 0 ml Other 90 ml Output Urine Total 560 ml 570 ml # Bowel Movements 4 Laboratory Tests 05/31/19 04:41: Sodium Level 137, Potassium Level 4.0, Chloride Level 106, Carbon Dioxide Level 18L, Anion Gap 13, Blood Urea Nitrogen 79H, Creatinine 4.4H, Estimat Glomerular Filtration Rate , Glucose Level 91, Calcium Level 6.7L, Phosphorus Level 5.8H, Magnesium Level 2.0, Total Bilirubin 0.4, Aspartate Amino Transf (AST/SGOT) 28, Alanine Aminotransferase (ALT/SGPT) 19, Alkaline Phosphatase 49, Total Protein 4.9L, Albumin 1.8L, Globulin 3.1, Albumin/Globulin Ratio 0.6L, Random Vancomycin Level 24.0 05/31/19 11:28: Activated Partial Thromboplast Time 43H Height (Feet): 5 Height (Inches): 7.00 Weight (Pounds): 191 General Appearance: no apparent distress EENT: other - vented Cardiovascular: normal rate Respiratory/Chest: decreased breath sounds Abdomen: distended Reinier Mera MD May 31, 2019 12:12
[2019-05-31] MEDS: Piperacillin/Tazobactam 3.375 GM in NS 110 ML IVPB SCH ×2 (12:19→23:18)
[2019-05-31] MEDS: DAPTOmycin 500 MG in NS 55 ML IV SCH (12:54)
--- NOTE | 2019-05-31 13:10 | Surgery Progress Note ---
Surgery Progress Note Subjective Additional Comments off pressors tracking eyes labs noted ill appearing Objective Last 24 Hour Vital Signs Date Time Temp Pulse Resp B/P (MAP) Pulse Ox O2 Delivery O2 Flow Rate FiO2 05/31/19 12:30 71 18 126/44 (71) 96 05/31/19 12:00 73 05/31/19 12:00 Mechanical Ventilator 05/31/19 12:00 65 05/31/19 12:00 66 18 97/44 (61) 96 05/31/19 11:30 68 19 109/43 (65) 95 05/31/19 11:00 65 17 76/31 (46) 96 05/31/19 10:52 81 26 65 05/31/19 10:30 83 21 128/42 (70) 94 05/31/19 10:00 126/39 05/31/19 10:00 85 23 126/39 (68) 94 05/31/19 09:30 84 20 138/52 (80) 95 05/31/19 09:15 66 20 65 05/31/19 09:00 66 20 107/45 (65) 97 05/31/19 09:00 107/45 05/31/19 08:30 62 19 117/52 (73) 97 05/31/19 08:00 63 05/31/19 08:00 Mechanical Ventilator 05/31/19 08:00 65 05/31/19 08:00 104/43 05/31/19 08:00 98.2 63 19 104/43 (63) 97 05/31/19 07:30 63 17 108/37 (60) 97 05/31/19 07:24 68 26 65 05/31/19 07:00 69 25 109/45 (66) 95 05/31/19 07:00 108/37 05/31/19 06:30 65 26 108/55 (72) 95 05/31/19 06:00 85 26 110/70 (83) 95 05/31/19 05:30 85 25 118/70 (86) 95 05/31/19 05:26 76 23 65 05/31/19 05:00 100/52 05/31/19 05:00 99 25 118/70 (86) 95 05/31/19 04:30 74 26 136/50 (78) 95 05/31/19 04:00 65 05/31/19 04:00 99.4 60 17 99/39 (59) 96 05/31/19 04:00 Mechanical Ventilator 05/31/19 04:00 131/49 05/31/19 04:00 75 05/31/19 03:30 76 26 131/57 (81) 95 05/31/19 03:18 81 24 65 05/31/19 03:00 82 26 142/48 (79) 94 05/31/19 03:00 140/54 05/31/19 02:30 78 23 140/48 (78) 94 05/31/19 02:00 57 20 108/47 (67) 98 05/31/19 02:00 144/48 05/31/19 01:45 57 18 111/48 (69) 98 05/31/19 01:30 59 17 107/44 (65) 97 05/31/19 01:15 57 17 99/42 (61) 98 05/31/19 01:00 99/42 05/31/19 01:00 58 16 98/39 (58) 97 05/31/19 00:59 58 17 65 05/31/19 00:45 61 17 102/36 (58) 96 05/31/19 00:30 58 17 95/36 (55) 97 05/31/19 00:00 Mechanical Ventilator 05/31/19 00:00 60 05/31/19 00:00 99.2 73 23 115/41 (65) 95 05/31/19 00:00 91/46 05/31/19 00:00 65 05/30/19 23:57 74 23 65 05/30/19 23:30 76 24 131/46 (74) 95 05/30/19 23:00 147/48 05/30/19 23:00 82 26 147/48 (81) 94 05/30/19 22:45 137/44 05/30/19 22:30 81 25 137/44 (75) 94 05/30/19 22:00 72 10 108/40 (62) 95 05/30/19 22:00 108/40 05/30/19 21:30 79 14 133/40 (71) 95 05/30/19 21:13 84 25 65 05/30/19 21:00 83 24 143/45 (77) 95 05/30/19 21:00 143/45 05/30/19 20:45 85 25 133/53 (79) 94 05/30/19 20:30 85 25 153/47 (82) 94 05/30/19 20:15 84 25 139/44 (75) 92 05/30/19 20:00 Mechanical Ventilator 05/30/19 20:00 136/55 05/30/19 20:00 65 05/30/19 20:00 83 05/30/19 20:00 99.0 77 23 136/55 (82) 93 05/30/19 19:46 65 23 65 05/30/19 19:45 57 16 105/35 (58) 95 05/30/19 19:30 53 14 107/44 (65) 97 05/30/19 19:00 58 17 102/40 (60) 96 05/30/19 18:50 82/34 05/30/19 18:30 60 16 75/27 (43) 96 05/30/19 18:00 94 21 147/38 (74) 93 05/30/19 18:00 82/29 05/30/19 17:30 86 23 141/35 (70) 92 05/30/19 17:15 135/61 05/30/19 17:00 98.3 92 26 138/33 (68) 94 05/30/19 16:41 86 23 65 05/30/19 16:30 85 24 134/45 (74) 95 05/30/19 16:00 65 05/30/19 16:00 Mechanical Ventilator 05/30/19 16:00 91 23 142/42 (75) 95 05/30/19 16:00 91 05/30/19 15:30 90 22 129/53 (78) 95 05/30/19 15:00 89 21 124/55 (78) 96 05/30/19 14:42 56 18 65 05/30/19 14:30 63 16 123/40 (67) 95 05/30/19 14:00 53 16 106/38 (60) 97 05/30/19 13:30 50 15 102/33 (56) 94 I&O Intake and Output 05/30/19 05/31/19 19:00 07:00 Intake Total 1532.625 ml 1065.0 ml Output Total 560 ml 570 ml Balance 972.625 ml 495.0 ml Free Water 45 ml IV Total 1397.625 ml 1065.0 ml Tube Feeding 0 ml 0 ml Other 90 ml Output Urine Total 560 ml 570 ml # Bowel Movements 4 Dressing: other Wound: other Drains: other Cardiovascular: RSR Respiratory: decreased breath sounds Abdomen: soft, non-distended Extremities: no tenderness, no cyanosis Laboratory Tests Test 05/31/19 04:41 05/31/19 11:28 Sodium Level 137 MMOL/L (136-145) Potassium Level 4.0 MMOL/L (3.5-5.1) Chloride Level 106 MMOL/L (98-107) Carbon Dioxide Level 18 MMOL/L (21-32) L Anion Gap 13 mmol/L (5-15) Blood Urea Nitrogen 79 mg/dL (7-18) H Creatinine 4.4 MG/DL (0.55-1.30) H Estimat Glomerular Filtration Rate mL/min (>60) Glucose Level 91 MG/DL (74-106) Calcium Level 6.7 MG/DL (8.5-10.1) L Phosphorus Level 5.8 MG/DL (2.5-4.9) H Magnesium Level 2.0 MG/DL (1.8-2.4) Total Bilirubin 0.4 MG/DL (0.2-1.0) Aspartate Amino Transf (AST/SGOT) 28 U/L (15-37) Alanine Aminotransferase (ALT/SGPT) 19 U/L (12-78) Alkaline Phosphatase 49 U/L (46-116) Total Protein 4.9 G/DL (6.4-8.2) L Albumin 1.8 G/DL (3.4-5.0) L Globulin 3.1 g/dL Albumin/Globulin Ratio 0.6 (1.0-2.7) L Random Vancomycin Level 24.0 ug/mL Activated Partial Thromboplast Time 43 SEC (23-33) H Plan Problems: (1) Cellulitis of upper extremity Assessment & Plan: 84M with RUE cellulitis, edema, erythema. no drainage. has RUE picc line recommend removal of picc. removed at bedside by myself on 05/18. pressure held, hemostasis noted, dressings applied. cath tip sent for cultures DVT duplex studies with acute thrombus IV Abx as per ID UA pending Cx results keep RUE elevated on pillows okay for diet AM labs anticoagulation off load pressure for dti noted cellulitis and edema improved deteriorated intubated on vent support likely respiratory insufficiency labs ordered wean vent okay for tube feeds via ng - on hold currently as per GI will follow with recs thank you (2) Cellulitis Assessment & Plan: Pt presented on admission with reabsorbing blister lateral R heel. Base of injury indurated with delineated margins(L)4cm x (W)3cm.Non- blanching erythema Sacrum ,R and L buttocks(L)8.5cm x (W)9cm, with a partial thickness pressure injury noted to L buttocks. Base of wound is moist and viable (L)2.3cm x (W)3cm. Area around wound tender when minimally palpated. Pt noted to be wearing splint L foot. Per pt he fractured foot a few weeks ago. Splint removed to assess skin integrity. L heel and malleoli are pink and blanchable.Cavilon Skin Barrier applied to L heel and malleoli and each area covered with Optifoam drsg. Splint reapplied. No other skin concerns noted. unchanged Tx.Plan: Apply Moisture Barrier to Buttocks. Cover with Optifoam drsg. Changee very 3 days and prn. Apply Cavilon Skin Barrier to both heels. Cover each heel with Optifoam drsg. Change every 7 days and prn APM/SCOOBY Mattress overlay. Reposition at least every 2hours or as tolerated. Off-load heels with pillow. Bennett Logan May 31, 2019 13:10
[2019-05-31] MEDS ORDERED: NS 275ml ONE (14:31)
[2019-05-31] MEDS ORDERED: Tubing IV Secondary IV ONE (14:31)
[2019-05-31] MEDS ORDERED: D5 1/2NS 1000ml IV ONE (14:31)
[2019-05-31] MEDS ORDERED: 1/2 NS 1000ml IV ONE (16:38)
--- NOTE | 2019-05-31 18:45 | General Progress Note ---
Assessment/Plan Problem List: (1) SOB (shortness of breath) ICD Codes: R06.02 - Shortness of breath SNOMED: 054150843 (2) Cellulitis ICD Codes: L03.90 - Cellulitis, unspecified SNOMED: 776478513 (3) Cellulitis of upper extremity ICD Codes: L03.119 - Cellulitis of unspecified part of limb SNOMED: 224013172 Qualifiers: Qualified Codes: L03.113 - Cellulitis of right upper limb (4) Renal insufficiency ICD Codes: N28.9 - Disorder of kidney and ureter, unspecified SNOMED: 206510964, 505896818 (5) Renal failure (ARF), acute on chronic ICD Codes: N17.9 - Acute kidney failure, unspecified; N18.9 - Chronic kidney disease, unspecified SNOMED: 624863120 (6) Anemia ICD Codes: D64.9 - Anemia, unspecified SNOMED: 498612531 (7) Hypothyroidism ICD Codes: E03.9 - Hypothyroidism, unspecified SNOMED: 12719371 (8) UTI (urinary tract infection) ICD Codes: N39.0 - Urinary tract infection, site not specified SNOMED: 42217795 Status: unchanged, deteriorating Assessment/Plan: edema malnutrition lethargic critical condition on high volume of oxygen intubated chf exac rhonci not improving encephalopathy pna Subjective ROS Limited/Unobtainable: Yes Allergies: Coded Allergies: No Known Allergies (Unverified , 05/18/19) Objective Last 24 Hour Vital Signs Date Time Temp Pulse Resp B/P (MAP) Pulse Ox O2 Delivery O2 Flow Rate FiO2 05/31/19 18:00 92 26 133/40 (71) 93 05/31/19 17:19 69 17 65 05/31/19 17:00 98.8 76 25 111/42 (65) 94 05/31/19 16:00 Mechanical Ventilator 05/31/19 16:00 76 25 120/52 (74) 95 05/31/19 16:00 79 05/31/19 16:00 65 05/31/19 15:00 74 16 134/47 (76) 94 05/31/19 14:00 63 17 91/42 (58) 95 05/31/19 13:30 80 22 125/50 (75) 94 1/4/20 13:09 81 26 65 05/31/19 13:00 98.1 88 16 134/41 (72) 98 05/31/19 12:30 71 18 126/44 (71) 96 05/31/19 12:00 73 05/31/19 12:00 Mechanical Ventilator 05/31/19 12:00 65 05/31/19 12:00 66 18 97/44 (61) 96 05/31/19 11:30 68 19 109/43 (65) 95 05/31/19 11:00 65 17 76/31 (46) 96 05/31/19 10:52 81 26 65 05/31/19 10:30 83 21 128/42 (70) 94 05/31/19 10:00 126/39 05/31/19 10:00 85 23 126/39 (68) 94 05/31/19 09:30 84 20 138/52 (80) 95 05/31/19 09:15 66 20 65 05/31/19 09:00 66 20 107/45 (65) 97 05/31/19 09:00 107/45 05/31/19 08:30 62 19 117/52 (73) 97 05/31/19 08:00 63 05/31/19 08:00 Mechanical Ventilator 05/31/19 08:00 65 05/31/19 08:00 104/43 05/31/19 08:00 98.2 63 19 104/43 (63) 97 05/31/19 07:30 63 17 108/37 (60) 97 05/31/19 07:24 68 26 65 05/31/19 07:00 69 25 109/45 (66) 95 05/31/19 07:00 108/37 05/31/19 06:30 65 26 108/55 (72) 95 05/31/19 06:00 85 26 110/70 (83) 95 05/31/19 05:30 85 25 118/70 (86) 95 05/31/19 05:26 76 23 65 05/31/19 05:00 100/52 05/31/19 05:00 99 25 118/70 (86) 95 05/31/19 04:30 74 26 136/50 (78) 95 05/31/19 04:00 65 05/31/19 04:00 99.4 60 17 99/39 (59) 96 05/31/19 04:00 Mechanical Ventilator 05/31/19 04:00 131/49 05/31/19 04:00 75 05/31/19 03:30 76 26 131/57 (81) 95 05/31/19 03:18 81 24 65 05/31/19 03:00 82 26 142/48 (79) 94 05/31/19 03:00 140/54 05/31/19 02:30 78 23 140/48 (78) 94 05/31/19 02:00 57 20 108/47 (67) 98 05/31/19 02:00 144/48 05/31/19 01:45 57 18 111/48 (69) 98 05/31/19 01:30 59 17 107/44 (65) 97 05/31/19 01:15 57 17 99/42 (61) 98 05/31/19 01:00 99/42 05/31/19 01:00 58 16 98/39 (58) 97 05/31/19 00:59 58 17 65 05/31/19 00:45 61 17 102/36 (58) 96 05/31/19 00:30 58 17 95/36 (55) 97 05/31/19 00:00 Mechanical Ventilator 05/31/19 00:00 60 05/31/19 00:00 99.2 73 23 115/41 (65) 95 05/31/19 00:00 91/46 05/31/19 00:00 65 05/30/19 23:57 74 23 65 05/30/19 23:30 76 24 131/46 (74) 95 05/30/19 23:00 147/48 05/30/19 23:00 82 26 147/48 (81) 94 05/30/19 22:45 137/44 05/30/19 22:30 81 25 137/44 (75) 94 05/30/19 22:00 72 10 108/40 (62) 95 05/30/19 22:00 108/40 05/30/19 21:30 79 14 133/40 (71) 95 05/30/19 21:13 84 25 65 05/30/19 21:00 83 24 143/45 (77) 95 05/30/19 21:00 143/45 05/30/19 20:45 85 25 133/53 (79) 94 05/30/19 20:30 85 25 153/47 (82) 94 05/30/19 20:15 84 25 139/44 (75) 92 05/30/19 20:00 Mechanical Ventilator 05/30/19 20:00 136/55 05/30/19 20:00 65 05/30/19 20:00 83 05/30/19 20:00 99.0 77 23 136/55 (82) 93 05/30/19 19:46 65 23 65 05/30/19 19:45 57 16 105/35 (58) 95 05/30/19 19:30 53 14 107/44 (65) 97 05/30/19 19:00 58 17 102/40 (60) 96 05/30/19 18:50 82/34 Intake and Output 05/30/19 05/31/19 19:00 07:00 Intake Total 1532.625 ml 1065.0 ml Output Total 560 ml 570 ml Balance 972.625 ml 495.0 ml Free Water 45 ml IV Total 1397.625 ml 1065.0 ml Tube Feeding 0 ml 0 ml Other 90 ml Output Urine Total 560 ml 570 ml # Bowel Movements 4 Laboratory Tests 05/31/19 04:41: Sodium Level 137, Potassium Level 4.0, Chloride Level 106, Carbon Dioxide Level 18L, Anion Gap 13, Blood Urea Nitrogen 79H, Creatinine 4.4H, Estimat Glomerular Filtration Rate , Glucose Level 91, Calcium Level 6.7L, Phosphorus Level 5.8H, Magnesium Level 2.0, Total Bilirubin 0.4, Aspartate Amino Transf (AST/SGOT) 28, Alanine Aminotransferase (ALT/SGPT) 19, Alkaline Phosphatase 49, Total Protein 4.9L, Albumin 1.8L, Globulin 3.1, Albumin/Globulin Ratio 0.6L, Random Vancomycin Level 24.0 05/31/19 11:28: Activated Partial Thromboplast Time 43H Height (Feet): 5 Height (Inches): 7.00 Weight (Pounds): 191 General Appearance: lethargic, confused Respiratory/Chest: rhonchi - bilaterally Abdomen: soft Joslyn Wiggins MD May 31, 2019 18:45
[2019-05-31] MEDS: Dyna-Hex 2% Top Sol 2oz TOPIC SCH (19:35)
--- NOTE | 2019-05-31 22:59 | Cardiology Progress Note ---
Assessment/Plan Assessment/Plan 1. Atrial fibrillation with rapid ventricular response, now in sinus rhythm, continue amiodarone. 2. Septic shock, on levophed gtt. 3. Acute kidney injury. 4. B/L pneumonia Subjective Subjective Sinus rhythm at rate of 64. Objective Last 24 Hour Vital Signs Date Time Temp Pulse Resp B/P (MAP) Pulse Ox O2 Delivery O2 Flow Rate FiO2 05/31/19 21:23 64 21 65 05/31/19 20:15 73 4 118/38 (64) 97 05/31/19 20:00 78 23 65 05/31/19 20:00 65 05/31/19 20:00 78 05/31/19 20:00 98.5 78 25 113/44 (67) 96 05/31/19 20:00 Mechanical Ventilator 05/31/19 19:00 78 24 132/48 (76) 96 05/31/19 18:00 92 26 133/40 (71) 93 05/31/19 17:19 69 17 65 05/31/19 17:00 98.8 76 25 111/42 (65) 94 05/31/19 16:00 Mechanical Ventilator 05/31/19 16:00 76 25 120/52 (74) 95 05/31/19 16:00 79 05/31/19 16:00 65 05/31/19 15:00 74 16 134/47 (76) 94 05/31/19 14:00 63 17 91/42 (58) 95 05/31/19 13:30 80 22 125/50 (75) 94 05/31/19 13:09 81 26 65 05/31/19 13:00 98.1 88 16 134/41 (72) 98 05/31/19 12:30 71 18 126/44 (71) 96 05/31/19 12:00 73 05/31/19 12:00 Mechanical Ventilator 05/31/19 12:00 65 05/31/19 12:00 66 18 97/44 (61) 96 05/31/19 11:30 68 19 109/43 (65) 95 05/31/19 11:00 65 17 76/31 (46) 96 05/31/19 10:52 81 26 65 05/31/19 10:30 83 21 128/42 (70) 94 05/31/19 10:00 126/39 05/31/19 10:00 85 23 126/39 (68) 94 05/31/19 09:30 84 20 138/52 (80) 95 05/31/19 09:15 66 20 65 05/31/19 09:00 66 20 107/45 (65) 97 05/31/19 09:00 107/45 05/31/19 08:30 62 19 117/52 (73) 97 05/31/19 08:00 63 05/31/19 08:00 Mechanical Ventilator 05/31/19 08:00 65 05/31/19 08:00 104/43 05/31/19 08:00 98.2 63 19 104/43 (63) 97 05/31/19 07:30 63 17 108/37 (60) 97 05/31/19 07:24 68 26 65 05/31/19 07:00 69 25 109/45 (66) 95 05/31/19 07:00 108/37 05/31/19 06:30 65 26 108/55 (72) 95 05/31/19 06:00 85 26 110/70 (83) 95 05/31/19 05:30 85 25 118/70 (86) 95 05/31/19 05:26 76 23 65 05/31/19 05:00 100/52 05/31/19 05:00 99 25 118/70 (86) 95 05/31/19 04:30 74 26 136/50 (78) 95 05/31/19 04:00 65 05/31/19 04:00 99.4 60 17 99/39 (59) 96 05/31/19 04:00 Mechanical Ventilator 05/31/19 04:00 131/49 05/31/19 04:00 75 05/31/19 03:30 76 26 131/57 (81) 95 05/31/19 03:18 81 24 65 05/31/19 03:00 82 26 142/48 (79) 94 05/31/19 03:00 140/54 05/31/19 02:30 78 23 140/48 (78) 94 05/31/19 02:00 57 20 108/47 (67) 98 05/31/19 02:00 144/48 05/31/19 01:45 57 18 111/48 (69) 98 05/31/19 01:30 59 17 107/44 (65) 97 05/31/19 01:15 57 17 99/42 (61) 98 05/31/19 01:00 99/42 05/31/19 01:00 58 16 98/39 (58) 97 05/31/19 00:59 58 17 65 05/31/19 00:45 61 17 102/36 (58) 96 05/31/19 00:30 58 17 95/36 (55) 97 05/31/19 00:00 Mechanical Ventilator 05/31/19 00:00 60 05/31/19 00:00 99.2 73 23 115/41 (65) 95 05/31/19 00:00 91/46 05/31/19 00:00 65 05/30/19 23:57 74 23 65 05/30/19 23:30 76 24 131/46 (74) 95 05/30/19 23:00 147/48 05/30/19 23:00 82 26 147/48 (81) 94 Intake and Output 05/30/19 05/31/19 19:00 07:00 Intake Total 1532.625 ml 1065.0 ml Output Total 560 ml 570 ml Balance 972.625 ml 495.0 ml Free Water 45 ml IV Total 1397.625 ml 1065.0 ml Tube Feeding 0 ml 0 ml Other 90 ml Output Urine Total 560 ml 570 ml # Bowel Movements 4 2D Echo: EF 65%,Mod AR,Elevated RAP, RVSP 30,Small pericardial eff, pleural effusion Laboratory Tests Test 05/31/19 04:41 05/31/19 11:28 Sodium Level 137 MMOL/L (136-145) Potassium Level 4.0 MMOL/L (3.5-5.1) Chloride Level 106 MMOL/L (98-107) Carbon Dioxide Level 18 MMOL/L (21-32) L Anion Gap 13 mmol/L (5-15) Blood Urea Nitrogen 79 mg/dL (7-18) H Creatinine 4.4 MG/DL (0.55-1.30) H Estimat Glomerular Filtration Rate mL/min (>60) Glucose Level 91 MG/DL (74-106) Calcium Level 6.7 MG/DL (8.5-10.1) L Phosphorus Level 5.8 MG/DL (2.5-4.9) H Magnesium Level 2.0 MG/DL (1.8-2.4) Total Bilirubin 0.4 MG/DL (0.2-1.0) Aspartate Amino Transf (AST/SGOT) 28 U/L (15-37) Alanine Aminotransferase (ALT/SGPT) 19 U/L (12-78) Alkaline Phosphatase 49 U/L (46-116) Total Protein 4.9 G/DL (6.4-8.2) L Albumin 1.8 G/DL (3.4-5.0) L Globulin 3.1 g/dL Albumin/Globulin Ratio 0.6 (1.0-2.7) L Random Vancomycin Level 24.0 ug/mL Activated Partial Thromboplast Time 43 SEC (23-33) H Microbiology Date/Time Source Procedure Growth Status 05/30/19 13:50 Sputum Gram Stain - Final Resulted 05/30/19 13:50 Sputum Sputum Culture Pending Resulted 05/30/19 13:50 Indwelling Cath Urine Culture - Preliminary NO GROWTH Resulted Objective HEENT: Atraumatic and normocephalic. Anicteric. Pupils are equal, round, and reactive to light and accommodation. Extraocular muscles intact. NECK: JVP less than 5 cm. No carotid bruit. Carotid upstroke is 2+ bilaterally. CARDIOVASCULAR: Normal S1, S2. Regular rate and rhythm. No murmurs, gallops, or rubs. PMI is at fourth intercostal space in the midclavicular line. LUNGS: Clear to auscultation bilaterally. Positive for wheezing. ABDOMEN: Soft, nontender, and nondistended. No hepatosplenomegaly. Positive bowel sounds. EXTREMITIES: No evidence of edema, clubbing, or cyanosis. Del Garcia MD May 31, 2019 22:59
[2019-06-01] VITALS (56 sets, daily range): BP systolic 79–147; BP diastolic 29–130
[2019-06-01 05:44] LABS: HEMATOCRIT 26.7 % (42.0-52.0); HEMOGLOBIN 8.7 G/DL (14.2-18.0); MEAN CORPUSCULAR VOLUME 92 FL (80-99); PLATELET COUNT 203 K/UL (150-450); RED CELL DISTRIBUTION WIDTH 15.4 % (11.6-14.8); WHITE BLOOD COUNT 9.8 K/UL (4.8-10.8)
[2019-06-01 06:44] LABS: ALANINE AMINOTRANSFERASE 17 U/L (12-78); ALBUMIN 1.6 G/DL (3.4-5.0); ALBUMIN/GLOBULIN RATIO 0.5 (1.0-2.7); ALKALINE PHOSPHATASE 48 U/L (46-116); ANION GAP 17 mmol/L (5-15); ASPARTATE AMINO TRANSFERASE 25 U/L (15-37); BILIRUBIN,TOTAL 0.4 MG/DL (0.2-1.0); BLOOD UREA NITROGEN 80 mg/dL (7-18); CALCIUM 6.6 MG/DL (8.5-10.1); CARBON DIOXIDE 16 MMOL/L (21-32); CHLORIDE 104 MMOL/L (98-107); CREATININE 4.8 MG/DL (0.55-1.30); PHOSPHORUS 6.3 MG/DL (2.5-4.9); POTASSIUM 4.1 MMOL/L (3.5-5.1); SODIUM 137 MMOL/L (136-145)
[2019-06-01] MEDS: Midodrine 10mg tab ORAL SCH ×3 (09:47→22:13)
[2019-06-01] MEDS: Docusate 100mg/10ml Liq NG SCH ×3 (09:47→17:29)
[2019-06-01] MEDS: Pantoprazole Inj IVP SCH ×2 (09:47→22:13)
[2019-06-01] MEDS: Amiodarone 200mg tab ORAL SCH (09:48)
[2019-06-01] MEDS: Eliquis 2.5mg tablet ORAL SCH (09:48)
--- NOTE | 2019-06-01 10:13 | Diagnostic Imaging Report ---
EXAM: XR Chest, 1 View CLINICAL HISTORY: Pleural effusion TECHNIQUE: Frontal view of the chest. COMPARISON: Chest x-rays dated 05/27/19 FINDINGS: Lungs: Mildly worsened appearance of diffuse bilateral interstitial and alveolar opacities, concerning for pneumonia, pulmonary edema, or ARDS. Pleural space: Small bilateral pleural effusions, not significant changed. Heart: Unremarkable. No cardiomegaly. Mediastinum: Unremarkable. Bones/joints: Unremarkable. Tubes, lines and devices: Stable positioning of the endotracheal and nasogastric tubes and of the left IJ-approach central venous catheter with the tip in the SVC region. Telemetry leads overlie the thorax. IMPRESSION: 1. Mildly worsened appearance of diffuse bilateral interstitial and alveolar opacities, concerning for pneumonia, pulmonary edema, or ARDS. 2. Small bilateral pleural effusions, not significant changed.
[2019-06-01] MEDS: Piperacillin/Tazobactam 3.375 GM in NS 110 ML IVPB SCH ×2 (12:13→22:13)
--- NOTE | 2019-06-01 12:28 | Nephrology Progress Note ---
Assessment/Plan Problem List: (1) Renal failure (ARF), acute on chronic Assessment: Cr rising (2) Cellulitis of upper extremity (3) A-fib (4) Pneumonia (5) UTI (urinary tract infection) (6) Anemia Assessment: worsened (7) Hypothyroidism Assessment - KIMO on CKD - Urinary tract infection. - Anemia- - Dehydration. - Cellulitis of Upper extremity - HTN Plan may require HD- Will hold anticoags in prep for dialysis cath insertion in am in ICU- intubated on pressors BP meds and Mind altering meds discontinued start midodrine check vanco levels - hold vanco doses previously: Per cardiology Anemia kumari- Avoid Nephrotoxics Per ID Allow CHANDA inhibitor to continue as long as renal function does not worsen. PICC line has been removed. CXR: Increased right pleural effusion and similar left pleural effusion. Increased interstitial and hazy opacities throughout the lungs. Subjective ROS Limited/Unobtainable: Yes Objective Objective Last 24 Hour Vital Signs Date Time Temp Pulse Resp B/P (MAP) Pulse Ox O2 Delivery O2 Flow Rate FiO2 06/01/19 11:05 86 14 65 06/01/19 10:30 79 24 120/48 (72) 95 06/01/19 10:19 68 25 106/41 (62) 97 06/01/19 10:15 65 17 79/34 (49) 96 06/01/19 10:00 74 23 111/41 (64) 96 06/01/19 09:45 67 20 95/37 (56) 97 06/01/19 09:30 67 12 85/34 (51) 96 06/01/19 09:23 87 28 65 06/01/19 09:15 78 27 120/44 (69) 96 06/01/19 09:00 69 22 116/40 (65) 95 06/01/19 08:45 64 17 107/35 (59) 96 06/01/19 08:30 63 17 107/46 (66) 96 06/01/19 08:15 74 24 116/48 (70) 96 06/01/19 08:00 71 24 121/46 (71) 96 06/01/19 08:00 Mechanical Ventilator 06/01/19 08:00 65 06/01/19 07:45 66 20 116/45 (68) 96 06/01/19 07:30 96.1 63 18 97/41 (59) 95 06/01/19 07:20 69 24 65 06/01/19 07:00 63 18 91/39 (56) 96 06/01/19 07:00 91/39 06/01/19 06:30 78 26 110/40 (63) 95 06/01/19 06:00 128/46 06/01/19 06:00 78 25 128/46 (73) 94 06/01/19 05:30 63 18 97/41 (59) 98 06/01/19 05:15 73 25 65 06/01/19 05:00 92/35 06/01/19 05:00 66 19 92/35 (54) 97 06/01/19 04:30 62 17 92/35 (54) 97 06/01/19 04:00 107/39 06/01/19 04:00 Mechanical Ventilator 06/01/19 04:00 98.0 62 15 107/39 (61) 97 06/01/19 04:00 65 06/01/19 03:45 65 16 95/36 (55) 96 06/01/19 03:42 66 23 65 06/01/19 03:32 62 17 85/36 (52) 98 06/01/19 03:30 63 18 97 06/01/19 03:30 85/36 06/01/19 03:19 68 06/01/19 03:17 64 20 99/37 (57) 98 06/01/19 03:15 62 18 86/35 (52) 96 06/01/19 03:00 64 18 94/35 (54) 97 06/01/19 03:00 94/35 06/01/19 02:45 65 17 90/34 (52) 97 06/01/19 02:30 69 22 94/41 (58) 96 06/01/19 02:18 65 15 80/31 (47) 97 06/01/19 02:18 80/31 06/01/19 02:00 81 22 99/34 (55) 96 06/01/19 01:30 82 19 113/83 (93) 94 06/01/19 01:12 78 20 65 06/01/19 01:00 67 18 83/29 (47) 96 06/01/19 00:06 76 21 65 06/01/19 00:00 Mechanical Ventilator 06/01/19 00:00 98.4 72 23 111/43 (65) 96 06/01/19 00:00 65 05/31/19 23:47 66 05/31/19 23:30 66 17 94/36 (55) 97 05/31/19 23:00 62 16 96/42 (60) 99 05/31/19 22:30 63 17 100/48 (65) 99 05/31/19 22:00 69 22 97/39 (58) 97 05/31/19 21:30 66 21 112/43 (66) 97 05/31/19 21:23 64 21 65 05/31/19 21:00 67 20 92/37 (55) 98 05/31/19 20:15 73 4 118/38 (64) 97 05/31/19 20:00 78 23 65 05/31/19 20:00 65 05/31/19 20:00 78 05/31/19 20:00 98.5 78 25 113/44 (67) 96 05/31/19 20:00 Mechanical Ventilator 05/31/19 19:00 78 24 132/48 (76) 96 05/31/19 18:00 92 26 133/40 (71) 93 05/31/19 17:19 69 17 65 05/31/19 17:00 98.8 76 25 111/42 (65) 94 05/31/19 16:00 Mechanical Ventilator 05/31/19 16:00 76 25 120/52 (74) 95 05/31/19 16:00 79 05/31/19 16:00 65 05/31/19 15:00 74 16 134/47 (76) 94 05/31/19 14:00 63 17 91/42 (58) 95 05/31/19 13:30 80 22 125/50 (75) 94 05/31/19 13:09 81 26 65 05/31/19 13:00 98.1 88 16 134/41 (72) 98 05/31/19 12:30 71 18 126/44 (71) 96 Intake and Output 05/31/19 06/01/19 19:00 07:00 Intake Total 982.5 ml 1151.25 ml Output Total 420 ml 100 ml Balance 562.5 ml 1051.25 ml Free Water 60 ml IV Total 922.5 ml 1071.25 ml Tube Feeding 0 ml 80 ml Output Urine Total 420 ml 100 ml Laboratory Tests 06/01/19 05:07: White Blood Count 9.8, Red Blood Count 2.90L, Hemoglobin 8.7L, Hematocrit 26.7L , Mean Corpuscular Volume 92, Mean Corpuscular Hemoglobin 30.0, Mean Corpuscular Hemoglobin Concent 32.6, Red Cell Distribution Width 15.4H, Platelet Count 203, Mean Platelet Volume 4.6L, Neutrophils (%) (Auto) , Lymphocytes (%) (Auto) , Monocytes (%) (Auto) , Eosinophils (%) (Auto) , Basophils (%) (Auto) , Differential Total Cells Counted 100, Neutrophils % ( Manual) 85H, Lymphocytes % (Manual) 10L, Monocytes % (Manual) 5, Eosinophils % ( Manual) 0, Basophils % (Manual) 0, Band Neutrophils 0, Platelet Estimate Adequate, Platelet Morphology Normal, Hypochromasia 2+, Anisocytosis 1+, Sodium Level 137, Potassium Level 4.1, Chloride Level 104, Carbon Dioxide Level 16L, Anion Gap 17H, Blood Urea Nitrogen 80H, Creatinine 4.8H, Estimat Glomerular Filtration Rate , Glucose Level 77, Lactic Acid Level 0.50, Uric Acid 6.9, Calcium Level 6.6L, Phosphorus Level 6.3H, Magnesium Level 1.9, Total Bilirubin 0.4, Aspartate Amino Transf (AST/SGOT) 25, Alanine Aminotransferase (ALT/SGPT) 17, Alkaline Phosphatase 48, Troponin I 0.027, C-Reactive Protein, Quantitative 10.6H, Pro-B-Type Natriuretic Peptide 5833H, Total Protein 4.9L, Albumin 1.6L, Globulin 3.3, Albumin/Globulin Ratio 0.5L, Random Vancomycin Level 22.2 Height (Feet): 5 Height (Inches): 7.00 Weight (Pounds): 189 General Appearance: no apparent distress EENT: other Cardiovascular: regular rhythm Respiratory/Chest: decreased breath sounds Abdomen: distended Reinier Mera MD Jun 01, 2019 12:28
--- NOTE | 2019-06-01 13:24 | Critical Care Progress Note ---
Assessment/Plan Assessment/Plan IMPRESSION AND PLAN: 1. Pneumonia. bilateral 2. Cellulitis. 3. History of COPD. 4. Hypertension. 5. Afib with RVR; rate controlled 6. Respiratory failure, acute 7. Hypoxemia, improved 8. Chronic renal failure 9. severe protein sabina malnutrition 10. chronic anemia PLAN vent support and taper rate as able consider wean when fio2 improves further - on 65% monitor oxygen needs; still high monitor imaging for change monitor imaging closely support as able for now in ICU feeds as able and monitor for residuals off load and monitor skin exam nutrition as able monitor protein levels and prealbumin follow up cxr on a regular basis medications/laboratory data/nursing notes/ICU care reviewed in detail note reviewed and edited care discussed with RN and RT ICU time spent 40 minutes Critical Care - Subjective Interval Events: unable on vent still with high fio2 ROS Limited/Unobtainable: Yes Condition: critical EKG Rhythm: Sinus Rhythm Residuals: minimal Tube Feeding Tolerated: yes I&O: Intake and Output 05/31/19 06/01/19 19:00 07:00 Intake Total 982.5 ml 1151.25 ml Output Total 420 ml 100 ml Balance 562.5 ml 1051.25 ml Free Water 60 ml IV Total 922.5 ml 1071.25 ml Tube Feeding 0 ml 80 ml Output Urine Total 420 ml 100 ml Critical Care - Objective CXR: diffuse infiltrates minimal improvement ET-Tube: 7.5 ET Position: 25 Last 24 Hour Vital Signs Date Time Temp Pulse Resp B/P (MAP) Pulse Ox O2 Delivery O2 Flow Rate FiO2 06/01/19 13:00 88 23 122/94 (103) 97 06/01/19 12:30 83 14 124/49 (74) 96 06/01/19 12:00 97.9 75 25 117/51 (73) 95 06/01/19 12:00 65 06/01/19 12:00 Mechanical Ventilator 06/01/19 11:30 68 12 91/33 (52) 95 06/01/19 11:05 86 14 65 06/01/19 11:00 84 27 135/48 (77) 95 06/01/19 10:30 79 24 120/48 (72) 95 06/01/19 10:19 68 25 106/41 (62) 97 06/01/19 10:15 65 17 79/34 (49) 96 06/01/19 10:00 74 23 111/41 (64) 96 06/01/19 09:45 67 20 95/37 (56) 97 06/01/19 09:30 67 12 85/34 (51) 96 06/01/19 09:23 87 28 65 06/01/19 09:15 78 27 120/44 (69) 96 06/01/19 09:00 69 22 116/40 (65) 95 06/01/19 08:45 64 17 107/35 (59) 96 06/01/19 08:30 63 17 107/46 (66) 96 06/01/19 08:15 74 24 116/48 (70) 96 06/01/19 08:00 71 24 121/46 (71) 96 06/01/19 08:00 Mechanical Ventilator 06/01/19 08:00 65 06/01/19 07:45 66 20 116/45 (68) 96 06/01/19 07:30 96.1 63 18 97/41 (59) 95 06/01/19 07:20 69 24 65 06/01/19 07:00 63 18 91/39 (56) 96 06/01/19 07:00 91/39 06/01/19 06:30 78 26 110/40 (63) 95 06/01/19 06:00 128/46 06/01/19 06:00 78 25 128/46 (73) 94 06/01/19 05:30 63 18 97/41 (59) 98 06/01/19 05:15 73 25 65 06/01/19 05:00 92/35 06/01/19 05:00 66 19 92/35 (54) 97 06/01/19 04:30 62 17 92/35 (54) 97 06/01/19 04:00 107/39 06/01/19 04:00 Mechanical Ventilator 06/01/19 04:00 98.0 62 15 107/39 (61) 97 06/01/19 04:00 65 06/01/19 03:45 65 16 95/36 (55) 96 06/01/19 03:42 66 23 65 06/01/19 03:32 62 17 85/36 (52) 98 06/01/19 03:30 63 18 97 06/01/19 03:30 85/36 06/01/19 03:19 68 06/01/19 03:17 64 20 99/37 (57) 98 06/01/19 03:15 62 18 86/35 (52) 96 06/01/19 03:00 64 18 94/35 (54) 97 06/01/19 03:00 94/35 06/01/19 02:45 65 17 90/34 (52) 97 06/01/19 02:30 69 22 94/41 (58) 96 06/01/19 02:18 65 15 80/31 (47) 97 06/01/19 02:18 80/31 06/01/19 02:00 81 22 99/34 (55) 96 06/01/19 01:30 82 19 113/83 (93) 94 06/01/19 01:12 78 20 65 06/01/19 01:00 67 18 83/29 (47) 96 06/01/19 00:06 76 21 65 06/01/19 00:00 Mechanical Ventilator 06/01/19 00:00 98.4 72 23 111/43 (65) 96 06/01/19 00:00 65 05/31/19 23:47 66 05/31/19 23:30 66 17 94/36 (55) 97 05/31/19 23:00 62 16 96/42 (60) 99 05/31/19 22:30 63 17 100/48 (65) 99 05/31/19 22:00 69 22 97/39 (58) 97 05/31/19 21:30 66 21 112/43 (66) 97 05/31/19 21:23 64 21 65 05/31/19 21:00 67 20 92/37 (55) 98 05/31/19 20:15 73 4 118/38 (64) 97 05/31/19 20:00 78 23 65 05/31/19 20:00 65 05/31/19 20:00 78 05/31/19 20:00 98.5 78 25 113/44 (67) 96 05/31/19 20:00 Mechanical Ventilator 05/31/19 19:00 78 24 132/48 (76) 96 05/31/19 18:00 92 26 133/40 (71) 93 05/31/19 17:19 69 17 65 05/31/19 17:00 98.8 76 25 111/42 (65) 94 05/31/19 16:00 Mechanical Ventilator 05/31/19 16:00 76 25 120/52 (74) 95 05/31/19 16:00 79 05/31/19 16:00 65 05/31/19 15:00 74 16 134/47 (76) 94 05/31/19 14:00 63 17 91/42 (58) 95 05/31/19 13:30 80 22 125/50 (75) 94 Labs: Labs Test 05/30/19 04:20 05/31/19 04:41 05/31/19 11:28 06/01/19 05:07 White Blood Count 11.0 K/UL (4.8-10.8) 9.8 K/UL (4.8-10.8) Red Blood Count 3.15 M/UL (4.70-6.10) 2.90 M/UL (4.70-6.10) Hemoglobin 9.4 G/DL (14.2-18.0) 8.7 G/DL (14.2-18.0) Hematocrit 28.7 % (42.0-52.0) 26.7 % (42.0-52.0) Mean Corpuscular Volume 91 FL (80-99) 92 FL (80-99) Mean Corpuscular Hemoglobin 30.0 PG (27.0-31.0) 30.0 PG (27.0-31.0) Mean Corpuscular Hemoglobin Concent 32.8 G/DL (32.0-36.0) 32.6 G/DL (32.0-36.0) Red Cell Distribution Width 16.2 % (11.6-14.8) 15.4 % (11.6-14.8) Platelet Count 218 K/UL (150-450) 203 K/UL (150-450) Mean Platelet Volume 5.0 FL (6.5-10.1) 4.6 FL (6.5-10.1) Neutrophils (%) (Auto) % (45.0-75.0) % (45.0-75.0) Lymphocytes (%) (Auto) % (20.0-45.0) % (20.0-45.0) Monocytes (%) (Auto) % (1.0-10.0) % (1.0-10.0) Eosinophils (%) (Auto) % (0.0-3.0) % (0.0-3.0) Basophils (%) (Auto) % (0.0-2.0) % (0.0-2.0) Differential Total Cells Counted 100 100 Neutrophils % (Manual) 87 % (45-75) 85 % (45-75) Lymphocytes % (Manual) 6 % (20-45) 10 % (20-45) Monocytes % (Manual) 7 % (1-10) 5 % (1-10) Eosinophils % (Manual) 0 % (0-3) 0 % (0-3) Basophils % (Manual) 0 % (0-2) 0 % (0-2) Band Neutrophils 0 % (0-8) 0 % (0-8) Platelet Estimate Adequate Adequate Platelet Morphology Normal Normal Hypochromasia 1+ 2+ Anisocytosis 1+ 1+ Sodium Level 139 MMOL/L (136-145) 137 MMOL/L (136-145) 137 MMOL/L (136-145) Potassium Level 4.1 MMOL/L (3.5-5.1) 4.0 MMOL/L (3.5-5.1) 4.1 MMOL/L (3.5-5.1) Chloride Level 107 MMOL/L (98-107) 106 MMOL/L (98-107) 104 MMOL/L (98-107) Carbon Dioxide Level 21 MMOL/L (21-32) 18 MMOL/L (21-32) 16 MMOL/L (21-32) Anion Gap 11 mmol/L (5-15) 13 mmol/L (5-15) 17 mmol/L (5-15) Blood Urea Nitrogen 77 mg/dL (7-18) 79 mg/dL (7-18) 80 mg/dL (7-18) Creatinine 4.2 MG/DL (0.55-1.30) 4.4 MG/DL (0.55-1.30) 4.8 MG/DL (0.55-1.30) Estimat Glomerular Filtration Rate mL/min (>60) mL/min (>60) mL/min (>60) Glucose Level 110 MG/DL (74-106) 91 MG/DL (74-106) 77 MG/DL (74-106) Uric Acid 6.4 MG/DL (2.6-7.2) 6.9 MG/DL (2.6-7.2) Calcium Level 6.8 MG/DL (8.5-10.1) 6.7 MG/DL (8.5-10.1) 6.6 MG/DL (8.5-10.1) Phosphorus Level 5.2 MG/DL (2.5-4.9) 5.8 MG/DL (2.5-4.9) 6.3 MG/DL (2.5-4.9) Magnesium Level 2.0 MG/DL (1.8-2.4) 2.0 MG/DL (1.8-2.4) 1.9 MG/DL (1.8-2.4) Total Bilirubin 0.4 MG/DL (0.2-1.0) 0.4 MG/DL (0.2-1.0) 0.4 MG/DL (0.2-1.0) Aspartate Amino Transf (AST/SGOT) 31 U/L (15-37) 28 U/L (15-37) 25 U/L (15-37) Alanine Aminotransferase (ALT/SGPT) 19 U/L (12-78) 19 U/L (12-78) 17 U/L (12-78) Alkaline Phosphatase 60 U/L (46-116) 49 U/L (46-116) 48 U/L (46-116) C-Reactive Protein, Quantitative 16.0 mg/dL (0.00-0.90) 10.6 mg/dL (0.00-0.90) Pro-B-Type Natriuretic Peptide 6142 pg/mL (0-125) 5833 pg/mL (0-125) Total Protein 4.9 G/DL (6.4-8.2) 4.9 G/DL (6.4-8.2) 4.9 G/DL (6.4-8.2) Albumin 1.6 G/DL (3.4-5.0) 1.8 G/DL (3.4-5.0) 1.6 G/DL (3.4-5.0) Globulin 3.3 g/dL 3.1 g/dL 3.3 g/dL Albumin/Globulin Ratio 0.5 (1.0-2.7) 0.6 (1.0-2.7) 0.5 (1.0-2.7) Random Vancomycin Level 23.9 ug/mL 24.0 ug/mL 22.2 ug/mL Activated Partial Thromboplast Time 43 SEC (23-33) Lactic Acid Level 0.50 mmol/L (0.4-2.0) Troponin I 0.027 ng/mL (0.000-0.056) Objective: WDWN NAD orally intubated and good volumes noted reduced breath sounds bilaterally with scattered rhonchi [id number] without MRG NABS nontender no HSM no CC mild edema nonfocal reviewed and edited Micro: Microbiology Date/Time Source Procedure Growth Status 05/30/19 12:00 Blood Blood Culture - Preliminary NO GROWTH AFTER 24 HOURS Resulted 05/30/19 12:00 Blood Blood Culture - Preliminary NO GROWTH AFTER 24 HOURS Resulted 05/30/19 11:50 Blood Blood Culture - Preliminary NO GROWTH AFTER 24 HOURS Resulted 05/30/19 11:30 Blood Blood Culture - Preliminary NO GROWTH AFTER 24 HOURS Resulted 05/30/19 13:50 Sputum Gram Stain - Final Resulted 05/30/19 13:50 Sputum Culture - Preliminary YEAST Resulted 05/30/19 13:50 Indwelling Cath Urine Culture - Final NO GROWTH AFTER 48 HOURS Complete Accucheck: 130 Korey Mtz MD Jun 01, 2019 13:24
[2019-06-01] MEDS ORDERED: NS 275ml ONE (15:44)
[2019-06-01] MEDS ORDERED: Tubing IV Secondary IV ONE (15:44)
[2019-06-01] MEDS ORDERED: Sterile Water Irrig 1000ml IRRIG ONE (15:44)
--- NOTE | 2019-06-01 15:47 | Cardiology Progress Note ---
Assessment/Plan Assessment/Plan 1. Atrial fibrillation with rapid ventricular response, converted to sinus rhythm, continue amiodarone. 2. Septic shock, off levophed gtt. 3. Oliguric acute kidney injury, CXR shows B/L pulmonary edema, consider ultrafiltration. 4. B/L pneumonia vs volume overload due to KIMO. Subjective Subjective Sinus rhythm at rate of 88. Off levophed gtt now. Objective Last 24 Hour Vital Signs Date Time Temp Pulse Resp B/P (MAP) Pulse Ox O2 Delivery O2 Flow Rate FiO2 06/01/19 13:30 88 23 109/50 (69) 97 06/01/19 13:15 85 28 65 06/01/19 13:00 88 23 122/94 (103) 97 06/01/19 12:30 83 14 124/49 (74) 96 06/01/19 12:00 97.9 75 25 117/51 (73) 95 06/01/19 12:00 65 06/01/19 12:00 Mechanical Ventilator 06/01/19 12:00 68 06/01/19 11:30 68 12 91/33 (52) 95 06/01/19 11:05 86 14 65 06/01/19 11:00 84 27 135/48 (77) 95 06/01/19 10:30 79 24 120/48 (72) 95 06/01/19 10:19 68 25 106/41 (62) 97 06/01/19 10:15 65 17 79/34 (49) 96 06/01/19 10:00 74 23 111/41 (64) 96 06/01/19 09:45 67 20 95/37 (56) 97 06/01/19 09:30 67 12 85/34 (51) 96 06/01/19 09:23 87 28 65 06/01/19 09:15 78 27 120/44 (69) 96 06/01/19 09:00 69 22 116/40 (65) 95 06/01/19 08:45 64 17 107/35 (59) 96 06/01/19 08:30 63 17 107/46 (66) 96 06/01/19 08:15 74 24 116/48 (70) 96 06/01/19 08:00 71 24 121/46 (71) 96 06/01/19 08:00 64 06/01/19 08:00 Mechanical Ventilator 06/01/19 08:00 65 06/01/19 07:45 66 20 116/45 (68) 96 06/01/19 07:30 96.1 63 18 97/41 (59) 95 06/01/19 07:20 69 24 65 06/01/19 07:00 63 18 91/39 (56) 96 06/01/19 07:00 91/39 06/01/19 06:30 78 26 110/40 (63) 95 06/01/19 06:00 128/46 06/01/19 06:00 78 25 128/46 (73) 94 06/01/19 05:30 63 18 97/41 (59) 98 06/01/19 05:15 73 25 65 06/01/19 05:00 92/35 06/01/19 05:00 66 19 92/35 (54) 97 06/01/19 04:30 62 17 92/35 (54) 97 06/01/19 04:00 107/39 06/01/19 04:00 Mechanical Ventilator 06/01/19 04:00 98.0 62 15 107/39 (61) 97 06/01/19 04:00 65 06/01/19 03:45 65 16 95/36 (55) 96 06/01/19 03:42 66 23 65 06/01/19 03:32 62 17 85/36 (52) 98 06/01/19 03:30 63 18 97 06/01/19 03:30 85/36 06/01/19 03:19 68 06/01/19 03:17 64 20 99/37 (57) 98 06/01/19 03:15 62 18 86/35 (52) 96 06/01/19 03:00 64 18 94/35 (54) 97 06/01/19 03:00 94/35 06/01/19 02:45 65 17 90/34 (52) 97 06/01/19 02:30 69 22 94/41 (58) 96 06/01/19 02:18 65 15 80/31 (47) 97 06/01/19 02:18 80/31 06/01/19 02:00 81 22 99/34 (55) 96 06/01/19 01:30 82 19 113/83 (93) 94 06/01/19 01:12 78 20 65 06/01/19 01:00 67 18 83/29 (47) 96 06/01/19 00:06 76 21 65 06/01/19 00:00 Mechanical Ventilator 06/01/19 00:00 98.4 72 23 111/43 (65) 96 06/01/19 00:00 65 05/31/19 23:47 66 05/31/19 23:30 66 17 94/36 (55) 97 05/31/19 23:00 62 16 96/42 (60) 99 05/31/19 22:30 63 17 100/48 (65) 99 05/31/19 22:00 69 22 97/39 (58) 97 05/31/19 21:30 66 21 112/43 (66) 97 05/31/19 21:23 64 21 65 05/31/19 21:00 67 20 92/37 (55) 98 05/31/19 20:15 73 4 118/38 (64) 97 05/31/19 20:00 78 23 65 05/31/19 20:00 65 05/31/19 20:00 78 05/31/19 20:00 98.5 78 25 113/44 (67) 96 05/31/19 20:00 Mechanical Ventilator 05/31/19 19:00 78 24 132/48 (76) 96 05/31/19 18:00 92 26 133/40 (71) 93 05/31/19 17:19 69 17 65 05/31/19 17:00 98.8 76 25 111/42 (65) 94 05/31/19 16:00 Mechanical Ventilator 05/31/19 16:00 76 25 120/52 (74) 95 05/31/19 16:00 79 05/31/19 16:00 65 Intake and Output 05/31/19 06/01/19 19:00 07:00 Intake Total 982.5 ml 1151.25 ml Output Total 420 ml 100 ml Balance 562.5 ml 1051.25 ml Free Water 60 ml IV Total 922.5 ml 1071.25 ml Tube Feeding 0 ml 80 ml Output Urine Total 420 ml 100 ml 2D Echo: EF 65%,Mod AR,Elevated RAP, RVSP 30,Small pericardial eff, pleural effusio Laboratory Tests Test 06/01/19 05:07 White Blood Count 9.8 K/UL (4.8-10.8) Red Blood Count 2.90 M/UL (4.70-6.10) L Hemoglobin 8.7 G/DL (14.2-18.0) L Hematocrit 26.7 % (42.0-52.0) L Mean Corpuscular Volume 92 FL (80-99) Mean Corpuscular Hemoglobin 30.0 PG (27.0-31.0) Mean Corpuscular Hemoglobin Concent 32.6 G/DL (32.0-36.0) Red Cell Distribution Width 15.4 % (11.6-14.8) H Platelet Count 203 K/UL (150-450) Mean Platelet Volume 4.6 FL (6.5-10.1) L Neutrophils (%) (Auto) % (45.0-75.0) Lymphocytes (%) (Auto) % (20.0-45.0) Monocytes (%) (Auto) % (1.0-10.0) Eosinophils (%) (Auto) % (0.0-3.0) Basophils (%) (Auto) % (0.0-2.0) Differential Total Cells Counted 100 Neutrophils % (Manual) 85 % (45-75) H Lymphocytes % (Manual) 10 % (20-45) L Monocytes % (Manual) 5 % (1-10) Eosinophils % (Manual) 0 % (0-3) Basophils % (Manual) 0 % (0-2) Band Neutrophils 0 % (0-8) Platelet Estimate Adequate Platelet Morphology Normal Hypochromasia 2+ Anisocytosis 1+ Sodium Level 137 MMOL/L (136-145) Potassium Level 4.1 MMOL/L (3.5-5.1) Chloride Level 104 MMOL/L (98-107) Carbon Dioxide Level 16 MMOL/L (21-32) L Anion Gap 17 mmol/L (5-15) H Blood Urea Nitrogen 80 mg/dL (7-18) H Creatinine 4.8 MG/DL (0.55-1.30) H Estimat Glomerular Filtration Rate mL/min (>60) Glucose Level 77 MG/DL (74-106) Lactic Acid Level 0.50 mmol/L (0.4-2.0) Uric Acid 6.9 MG/DL (2.6-7.2) Calcium Level 6.6 MG/DL (8.5-10.1) L Phosphorus Level 6.3 MG/DL (2.5-4.9) H Magnesium Level 1.9 MG/DL (1.8-2.4) Total Bilirubin 0.4 MG/DL (0.2-1.0) Aspartate Amino Transf (AST/SGOT) 25 U/L (15-37) Alanine Aminotransferase (ALT/SGPT) 17 U/L (12-78) Alkaline Phosphatase 48 U/L (46-116) Troponin I 0.027 ng/mL (0.000-0.056) C-Reactive Protein, Quantitative 10.6 mg/dL (0.00-0.90) H Pro-B-Type Natriuretic Peptide 5833 pg/mL (0-125) H Total Protein 4.9 G/DL (6.4-8.2) L Albumin 1.6 G/DL (3.4-5.0) L Globulin 3.3 g/dL Albumin/Globulin Ratio 0.5 (1.0-2.7) L Random Vancomycin Level 22.2 ug/mL Microbiology Date/Time Source Procedure Growth Status 05/30/19 12:00 Blood Blood Culture - Preliminary NO GROWTH AFTER 24 HOURS Resulted 05/30/19 12:00 Blood Blood Culture - Preliminary NO GROWTH AFTER 24 HOURS Resulted 05/30/19 11:50 Blood Blood Culture - Preliminary NO GROWTH AFTER 24 HOURS Resulted 05/30/19 11:30 Blood Blood Culture - Preliminary NO GROWTH AFTER 24 HOURS Resulted 05/30/19 13:50 Sputum Gram Stain - Final Resulted 05/30/19 13:50 Sputum Culture - Preliminary YEAST Resulted 05/30/19 13:50 Indwelling Cath Urine Culture - Final NO GROWTH AFTER 48 HOURS Complete Objective HEENT: Atraumatic and normocephalic. Anicteric. Pupils are equal, round, and reactive to light and accommodation. Extraocular muscles intact. NECK: JVP less than 5 cm. No carotid bruit. Carotid upstroke is 2+ bilaterally. CARDIOVASCULAR: Normal S1, S2. Regular rate and rhythm. No murmurs, gallops, or rubs. PMI is at fourth intercostal space in the midclavicular line. LUNGS: Clear to auscultation bilaterally. Positive for wheezing. ABDOMEN: Soft, nontender, and nondistended. No hepatosplenomegaly. Positive bowel sounds. EXTREMITIES: No evidence of edema, clubbing, or cyanosis. Del Garcia MD Jun 01, 2019 15:47
--- NOTE | 2019-06-01 17:14 | General Progress Note ---
Assessment/Plan Problem List: (1) SOB (shortness of breath) ICD Codes: R06.02 - Shortness of breath SNOMED: 837410875 (2) Cellulitis ICD Codes: L03.90 - Cellulitis, unspecified SNOMED: 018272182 (3) Cellulitis of upper extremity ICD Codes: L03.119 - Cellulitis of unspecified part of limb SNOMED: 599600478 Qualifiers: Qualified Codes: L03.113 - Cellulitis of right upper limb (4) Renal insufficiency ICD Codes: N28.9 - Disorder of kidney and ureter, unspecified SNOMED: 794645634, 356742701 (5) Renal failure (ARF), acute on chronic ICD Codes: N17.9 - Acute kidney failure, unspecified; N18.9 - Chronic kidney disease, unspecified SNOMED: 873688849 (6) Anemia ICD Codes: D64.9 - Anemia, unspecified SNOMED: 345219115 (7) Hypothyroidism ICD Codes: E03.9 - Hypothyroidism, unspecified SNOMED: 33147954 (8) UTI (urinary tract infection) ICD Codes: N39.0 - Urinary tract infection, site not specified SNOMED: 86861450 Status: deteriorating Assessment/Plan: edema malnutrition lethargic critical condition on high volume of oxygen intubated chf exac pna fluid overload Subjective ROS Limited/Unobtainable: Yes Allergies: Coded Allergies: No Known Allergies (Unverified , 05/18/19) Objective Last 24 Hour Vital Signs Date Time Temp Pulse Resp B/P (MAP) Pulse Ox O2 Delivery O2 Flow Rate FiO2 06/01/19 17:10 62 19 65 06/01/19 17:00 67 20 99/36 (57) 96 06/01/19 16:30 66 25 99/37 (57) 97 06/01/19 16:00 97.8 63 5 91/36 (54) 95 06/01/19 16:00 72 06/01/19 16:00 60 06/01/19 16:00 Mechanical Ventilator 06/01/19 15:20 63 21 65 06/01/19 15:00 68 17 96/41 (59) 97 06/01/19 14:00 77 27 106/45 (65) 97 06/01/19 13:30 88 23 109/50 (69) 97 06/01/19 13:15 85 28 65 06/01/19 13:00 88 23 122/94 (103) 97 06/01/19 12:30 83 14 124/49 (74) 96 06/01/19 12:00 97.9 75 25 117/51 (73) 95 06/01/19 12:00 65 06/01/19 12:00 Mechanical Ventilator 06/01/19 12:00 68 06/01/19 11:30 68 12 91/33 (52) 95 06/01/19 11:05 86 14 65 06/01/19 11:00 84 27 135/48 (77) 95 06/01/19 10:30 79 24 120/48 (72) 95 06/01/19 10:19 68 25 106/41 (62) 97 06/01/19 10:15 65 17 79/34 (49) 96 06/01/19 10:00 74 23 111/41 (64) 96 06/01/19 09:45 67 20 95/37 (56) 97 06/01/19 09:30 67 12 85/34 (51) 96 06/01/19 09:23 87 28 65 06/01/19 09:15 78 27 120/44 (69) 96 06/01/19 09:00 69 22 116/40 (65) 95 06/01/19 08:45 64 17 107/35 (59) 96 06/01/19 08:30 63 17 107/46 (66) 96 06/01/19 08:15 74 24 116/48 (70) 96 06/01/19 08:00 71 24 121/46 (71) 96 06/01/19 08:00 64 06/01/19 08:00 Mechanical Ventilator 06/01/19 08:00 65 06/01/19 07:45 66 20 116/45 (68) 96 06/01/19 07:30 96.1 63 18 97/41 (59) 95 06/01/19 07:20 69 24 65 06/01/19 07:00 63 18 91/39 (56) 96 06/01/19 07:00 91/39 06/01/19 06:30 78 26 110/40 (63) 95 06/01/19 06:00 128/46 06/01/19 06:00 78 25 128/46 (73) 94 06/01/19 05:30 63 18 97/41 (59) 98 06/01/19 05:15 73 25 65 06/01/19 05:00 92/35 06/01/19 05:00 66 19 92/35 (54) 97 06/01/19 04:30 62 17 92/35 (54) 97 06/01/19 04:00 107/39 06/01/19 04:00 Mechanical Ventilator 06/01/19 04:00 98.0 62 15 107/39 (61) 97 06/01/19 04:00 65 06/01/19 03:45 65 16 95/36 (55) 96 06/01/19 03:42 66 23 65 06/01/19 03:32 62 17 85/36 (52) 98 06/01/19 03:30 63 18 97 06/01/19 03:30 85/36 06/01/19 03:19 68 06/01/19 03:17 64 20 99/37 (57) 98 06/01/19 03:15 62 18 86/35 (52) 96 06/01/19 03:00 64 18 94/35 (54) 97 06/01/19 03:00 94/35 06/01/19 02:45 65 17 90/34 (52) 97 06/01/19 02:30 69 22 94/41 (58) 96 06/01/19 02:18 65 15 80/31 (47) 97 06/01/19 02:18 80/31 06/01/19 02:00 81 22 99/34 (55) 96 06/01/19 01:30 82 19 113/83 (93) 94 06/01/19 01:12 78 20 65 06/01/19 01:00 67 18 83/29 (47) 96 06/01/19 00:06 76 21 65 06/01/19 00:00 Mechanical Ventilator 06/01/19 00:00 98.4 72 23 111/43 (65) 96 06/01/19 00:00 65 05/31/19 23:47 66 05/31/19 23:30 66 17 94/36 (55) 97 05/31/19 23:00 62 16 96/42 (60) 99 05/31/19 22:30 63 17 100/48 (65) 99 05/31/19 22:00 69 22 97/39 (58) 97 05/31/19 21:30 66 21 112/43 (66) 97 05/31/19 21:23 64 21 65 05/31/19 21:00 67 20 92/37 (55) 98 05/31/19 20:15 73 4 118/38 (64) 97 05/31/19 20:00 78 23 65 05/31/19 20:00 65 05/31/19 20:00 78 05/31/19 20:00 98.5 78 25 113/44 (67) 96 05/31/19 20:00 Mechanical Ventilator 05/31/19 19:00 78 24 132/48 (76) 96 05/31/19 18:00 92 26 133/40 (71) 93 05/31/19 17:19 69 17 65 Intake and Output 05/31/19 06/01/19 19:00 07:00 Intake Total 982.5 ml 1151.25 ml Output Total 420 ml 100 ml Balance 562.5 ml 1051.25 ml Free Water 60 ml IV Total 922.5 ml 1071.25 ml Tube Feeding 0 ml 80 ml Output Urine Total 420 ml 100 ml Laboratory Tests 06/01/19 05:07: White Blood Count 9.8, Red Blood Count 2.90L, Hemoglobin 8.7L, Hematocrit 26.7L , Mean Corpuscular Volume 92, Mean Corpuscular Hemoglobin 30.0, Mean Corpuscular Hemoglobin Concent 32.6, Red Cell Distribution Width 15.4H, Platelet Count 203, Mean Platelet Volume 4.6L, Neutrophils (%) (Auto) , Lymphocytes (%) (Auto) , Monocytes (%) (Auto) , Eosinophils (%) (Auto) , Basophils (%) (Auto) , Differential Total Cells Counted 100, Neutrophils % ( Manual) 85H, Lymphocytes % (Manual) 10L, Monocytes % (Manual) 5, Eosinophils % ( Manual) 0, Basophils % (Manual) 0, Band Neutrophils 0, Platelet Estimate Adequate, Platelet Morphology Normal, Hypochromasia 2+, Anisocytosis 1+, Sodium Level 137, Potassium Level 4.1, Chloride Level 104, Carbon Dioxide Level 16L, Anion Gap 17H, Blood Urea Nitrogen 80H, Creatinine 4.8H, Estimat Glomerular Filtration Rate , Glucose Level 77, Lactic Acid Level 0.50, Uric Acid 6.9, Calcium Level 6.6L, Phosphorus Level 6.3H, Magnesium Level 1.9, Total Bilirubin 0.4, Aspartate Amino Transf (AST/SGOT) 25, Alanine Aminotransferase (ALT/SGPT) 17, Alkaline Phosphatase 48, Troponin I 0.027, C-Reactive Protein, Quantitative 10.6H, Pro-B-Type Natriuretic Peptide 5833H, Total Protein 4.9L, Albumin 1.6L, Globulin 3.3, Albumin/Globulin Ratio 0.5L, Random Vancomycin Level 22.2 Height (Feet): 5 Height (Inches): 7.00 Weight (Pounds): 189 General Appearance: lethargic, confused Respiratory/Chest: rhonchi - bilaterally Abdomen: soft Joslyn Wiggins MD Jun 01, 2019 17:14
--- NOTE | 2019-06-01 20:09 | Surgery Progress Note ---
Surgery Progress Note Subjective Additional Comments ill appearing eyes track worsening renal function on vent suport off pressors tolerating tf at 20cc Objective Last 24 Hour Vital Signs Date Time Temp Pulse Resp B/P (MAP) Pulse Ox O2 Delivery O2 Flow Rate FiO2 06/01/19 19:42 81 29 65 06/01/19 19:20 122/49 06/01/19 18:30 65 12 102/42 (62) 97 06/01/19 18:00 75 25 125/42 (69) 96 06/01/19 17:30 72 26 125/96 (106) 95 06/01/19 17:10 62 19 65 06/01/19 17:00 67 20 99/36 (57) 96 06/01/19 16:30 66 25 99/37 (57) 97 06/01/19 16:00 97.8 63 5 91/36 (54) 95 06/01/19 16:00 72 06/01/19 16:00 60 06/01/19 16:00 Mechanical Ventilator 06/01/19 15:20 63 21 65 06/01/19 15:00 68 17 96/41 (59) 97 06/01/19 14:00 77 27 106/45 (65) 97 06/01/19 13:30 88 23 109/50 (69) 97 06/01/19 13:15 85 28 65 06/01/19 13:00 88 23 122/94 (103) 97 06/01/19 12:30 83 14 124/49 (74) 96 06/01/19 12:00 97.9 75 25 117/51 (73) 95 06/01/19 12:00 65 06/01/19 12:00 Mechanical Ventilator 06/01/19 12:00 68 06/01/19 11:30 68 12 91/33 (52) 95 06/01/19 11:05 86 14 65 06/01/19 11:00 84 27 135/48 (77) 95 06/01/19 10:30 79 24 120/48 (72) 95 06/01/19 10:19 68 25 106/41 (62) 97 06/01/19 10:15 65 17 79/34 (49) 96 06/01/19 10:00 74 23 111/41 (64) 96 06/01/19 09:45 67 20 95/37 (56) 97 06/01/19 09:30 67 12 85/34 (51) 96 06/01/19 09:23 87 28 65 06/01/19 09:15 78 27 120/44 (69) 96 06/01/19 09:00 69 22 116/40 (65) 95 06/01/19 08:45 64 17 107/35 (59) 96 06/01/19 08:30 63 17 107/46 (66) 96 06/01/19 08:15 74 24 116/48 (70) 96 06/01/19 08:00 71 24 121/46 (71) 96 06/01/19 08:00 64 06/01/19 08:00 Mechanical Ventilator 06/01/19 08:00 65 06/01/19 07:45 66 20 116/45 (68) 96 06/01/19 07:30 96.1 63 18 97/41 (59) 95 06/01/19 07:20 69 24 65 06/01/19 07:00 63 18 91/39 (56) 96 06/01/19 07:00 91/39 06/01/19 06:30 78 26 110/40 (63) 95 06/01/19 06:00 128/46 06/01/19 06:00 78 25 128/46 (73) 94 06/01/19 05:30 63 18 97/41 (59) 98 06/01/19 05:15 73 25 65 06/01/19 05:00 92/35 06/01/19 05:00 66 19 92/35 (54) 97 06/01/19 04:30 62 17 92/35 (54) 97 06/01/19 04:00 107/39 06/01/19 04:00 Mechanical Ventilator 06/01/19 04:00 98.0 62 15 107/39 (61) 97 06/01/19 04:00 65 06/01/19 03:45 65 16 95/36 (55) 96 06/01/19 03:42 66 23 65 06/01/19 03:32 62 17 85/36 (52) 98 06/01/19 03:30 63 18 97 06/01/19 03:30 85/36 06/01/19 03:19 68 06/01/19 03:17 64 20 99/37 (57) 98 06/01/19 03:15 62 18 86/35 (52) 96 06/01/19 03:00 64 18 94/35 (54) 97 06/01/19 03:00 94/35 06/01/19 02:45 65 17 90/34 (52) 97 06/01/19 02:30 69 22 94/41 (58) 96 06/01/19 02:18 65 15 80/31 (47) 97 06/01/19 02:18 80/31 06/01/19 02:00 81 22 99/34 (55) 96 06/01/19 01:30 82 19 113/83 (93) 94 06/01/19 01:12 78 20 65 06/01/19 01:00 67 18 83/29 (47) 96 06/01/19 00:06 76 21 65 06/01/19 00:00 Mechanical Ventilator 06/01/19 00:00 98.4 72 23 111/43 (65) 96 06/01/19 00:00 65 05/31/19 23:47 66 05/31/19 23:30 66 17 94/36 (55) 97 05/31/19 23:00 62 16 96/42 (60) 99 05/31/19 22:30 63 17 100/48 (65) 99 05/31/19 22:00 69 22 97/39 (58) 97 05/31/19 21:30 66 21 112/43 (66) 97 05/31/19 21:23 64 21 65 05/31/19 21:00 67 20 92/37 (55) 98 05/31/19 20:15 73 4 118/38 (64) 97 I&O Intake and Output 05/31/19 06/01/19 19:00 07:00 Intake Total 982.5 ml 1151.25 ml Output Total 420 ml 100 ml Balance 562.5 ml 1051.25 ml Free Water 60 ml IV Total 922.5 ml 1071.25 ml Tube Feeding 0 ml 80 ml Output Urine Total 420 ml 100 ml Dressing: dry Wound: clean Cardiovascular: RSR Respiratory: clear, decreased breath sounds Abdomen: soft, flat, present bowel sounds, non-distended Extremities: edema, no cyanosis Laboratory Tests Test 06/01/19 05:07 White Blood Count 9.8 K/UL (4.8-10.8) Red Blood Count 2.90 M/UL (4.70-6.10) L Hemoglobin 8.7 G/DL (14.2-18.0) L Hematocrit 26.7 % (42.0-52.0) L Mean Corpuscular Volume 92 FL (80-99) Mean Corpuscular Hemoglobin 30.0 PG (27.0-31.0) Mean Corpuscular Hemoglobin Concent 32.6 G/DL (32.0-36.0) Red Cell Distribution Width 15.4 % (11.6-14.8) H Platelet Count 203 K/UL (150-450) Mean Platelet Volume 4.6 FL (6.5-10.1) L Neutrophils (%) (Auto) % (45.0-75.0) Lymphocytes (%) (Auto) % (20.0-45.0) Monocytes (%) (Auto) % (1.0-10.0) Eosinophils (%) (Auto) % (0.0-3.0) Basophils (%) (Auto) % (0.0-2.0) Differential Total Cells Counted 100 Neutrophils % (Manual) 85 % (45-75) H Lymphocytes % (Manual) 10 % (20-45) L Monocytes % (Manual) 5 % (1-10) Eosinophils % (Manual) 0 % (0-3) Basophils % (Manual) 0 % (0-2) Band Neutrophils 0 % (0-8) Platelet Estimate Adequate Platelet Morphology Normal Hypochromasia 2+ Anisocytosis 1+ Sodium Level 137 MMOL/L (136-145) Potassium Level 4.1 MMOL/L (3.5-5.1) Chloride Level 104 MMOL/L (98-107) Carbon Dioxide Level 16 MMOL/L (21-32) L Anion Gap 17 mmol/L (5-15) H Blood Urea Nitrogen 80 mg/dL (7-18) H Creatinine 4.8 MG/DL (0.55-1.30) H Estimat Glomerular Filtration Rate mL/min (>60) Glucose Level 77 MG/DL (74-106) Lactic Acid Level 0.50 mmol/L (0.4-2.0) Uric Acid 6.9 MG/DL (2.6-7.2) Calcium Level 6.6 MG/DL (8.5-10.1) L Phosphorus Level 6.3 MG/DL (2.5-4.9) H Magnesium Level 1.9 MG/DL (1.8-2.4) Total Bilirubin 0.4 MG/DL (0.2-1.0) Aspartate Amino Transf (AST/SGOT) 25 U/L (15-37) Alanine Aminotransferase (ALT/SGPT) 17 U/L (12-78) Alkaline Phosphatase 48 U/L (46-116) Troponin I 0.027 ng/mL (0.000-0.056) C-Reactive Protein, Quantitative 10.6 mg/dL (0.00-0.90) H Pro-B-Type Natriuretic Peptide 5833 pg/mL (0-125) H Total Protein 4.9 G/DL (6.4-8.2) L Albumin 1.6 G/DL (3.4-5.0) L Globulin 3.3 g/dL Albumin/Globulin Ratio 0.5 (1.0-2.7) L Random Vancomycin Level 22.2 ug/mL Plan Problems: (1) Cellulitis of upper extremity Assessment & Plan: 84M with RUE cellulitis, edema, erythema. no drainage. has RUE picc line recommend removal of picc. removed at bedside by myself on 05/18. pressure held, hemostasis noted, dressings applied. cath tip sent for cultures DVT duplex studies with acute thrombus IV Abx as per ID UA pending Cx results keep RUE elevated on pillows okay for diet AM labs anticoagulation off load pressure for dti noted cellulitis and edema improved deteriorated intubated on vent support likely respiratory insufficiency labs ordered wean vent okay for tube feeds via ng - cont as tolerated wean vent am labs will follow with recs thank you (2) Cellulitis Assessment & Plan: Pt presented on admission with reabsorbing blister lateral R heel. Base of injury indurated with delineated margins(L)4cm x (W)3cm.Non- blanching erythema Sacrum ,R and L buttocks(L)8.5cm x (W)9cm, with a partial thickness pressure injury noted to L buttocks. Base of wound is moist and viable (L)2.3cm x (W)3cm. Area around wound tender when minimally palpated. Pt noted to be wearing splint L foot. Per pt he fractured foot a few weeks ago. Splint removed to assess skin integrity. L heel and malleoli are pink and blanchable.Cavilon Skin Barrier applied to L heel and malleoli and each area covered with Optifoam drsg. Splint reapplied. No other skin concerns noted. unchanged Tx.Plan: Apply Moisture Barrier to Buttocks. Cover with Optifoam drsg. Changee very 3 days and prn. Apply Cavilon Skin Barrier to both heels. Cover each heel with Optifoam drsg. Change every 7 days and prn APM/SCOOBY Mattress overlay. Reposition at least every 2hours or as tolerated. Off-load heels with pillow. Bennett Logan Jun 01, 2019 20:09
[2019-06-01] MEDS: Dyna-Hex 2% Top Sol 2oz TOPIC SCH (22:14)
[2019-06-02] VITALS (28 sets, daily range): BP systolic 90–133; BP diastolic 30–52
[2019-06-02] MEDS: Midodrine 10mg tab ORAL SCH ×3 (06:00→22:38)
[2019-06-02 06:05] LABS: HEMATOCRIT 28.1 % (42.0-52.0); HEMOGLOBIN 9.2 G/DL (14.2-18.0); MEAN CORPUSCULAR VOLUME 92 FL (80-99); PLATELET COUNT 208 K/UL (150-450); RED BLOOD COUNT 3.05 M/UL (4.70-6.10); RED CELL DISTRIBUTION WIDTH 16.4 % (11.6-14.8); WHITE BLOOD COUNT 9.5 K/UL (4.8-10.8)
[2019-06-02 06:08] LABS: INR 1.1 (0.9-1.1)
[2019-06-02 06:35] LABS: ALANINE AMINOTRANSFERASE 17 U/L (12-78); ALBUMIN 1.7 G/DL (3.4-5.0); ALBUMIN/GLOBULIN RATIO 0.5 (1.0-2.7); ALKALINE PHOSPHATASE 57 U/L (46-116); ANION GAP 17 mmol/L (5-15); ASPARTATE AMINO TRANSFERASE 25 U/L (15-37); BILIRUBIN,TOTAL 0.4 MG/DL (0.2-1.0); BLOOD UREA NITROGEN 80 mg/dL (7-18); CALCIUM 6.8 MG/DL (8.5-10.1); CARBON DIOXIDE 16 MMOL/L (21-32); CHLORIDE 103 MMOL/L (98-107); CREATININE 5.4 MG/DL (0.55-1.30); PHOSPHORUS 6.4 MG/DL (2.5-4.9); POTASSIUM 3.9 MMOL/L (3.5-5.1); SODIUM 136 MMOL/L (136-145)
[2019-06-02] MEDS ORDERED: Heparin1,000 units/500ml Premix(Conc:2 units/ml) ONE (07:00)
[2019-06-02] MEDS ORDERED: Lidocaine 1% Plain 30 ml INJ ONE (07:00)
--- NOTE | 2019-06-02 07:08 | Hematology/Onc Progress Note ---
Assessment/Plan Assessment/Plan # Anemia of chronic disease due to underlying chronic medical issues, multifactorial v Gi bleed --> Anemia workup has been reviewed, rule out gi bleed --> No evidence of hemolysis is noted, peripheral smear has been reviewed. --> Hgb goal >7. Transfuse prn. --> Epogen or iron at this time is not particularly indicated --> Medications have been reviewed --> low threshold for gi evaluation in case has occult + --> hgb trend: 9.3-->9.7-->8.1-->7.6-->8-->9.4-->9.2 --> transf 05/28/19 with 1 unit prbc --> transfusion is a emergency, no family, no poa, is okay to transfuse # Right upper arm extremity axillary vein dvt --> agree to continue eliquis --> as per cards low dose eliquis --> continue for total of minimum of 3 months --> rescan arm in 3 mo # Cellulitis of upper extremity, likely picc line infection --> as per id on ax --> picc off --> levoflox/vanc-->zosyn/vanc--> zosyn-->dapto/zosyn # Renal insufficiency --> per Dr. Mera # Pneumonia --> abx per id # Dehydration. --> goal of euvolemia # Paroxysmal Atrial fibrillation with rapid ventricular response was on amiodarone gtt, now in sinus rhythm. --> per cards On PO amiodarone 200 bid, Lopressor 25 bid # Dysphagia with ng tube # Dvt ppx eliquis--> now on hold The timing of this note does not necessarily reflect the time of the patient was seen. Greatly appreciate consultation. Subjective Constitutional: Denies: no symptoms, chills, fever, malaise, weakness, other HEENT: Denies: no symptoms, eye pain, blurred vision, tearing, double vision, ear pain, ear discharge, nose pain, nose congestion, throat pain, throat swelling, mouth pain, mouth swelling, other Cardiovascular: Denies: no symptoms, chest pain, edema, irregular heart rate, lightheadedness, palpitations, syncope, other Respiratory: Denies: no symptoms, cough, shortness of breath, SOB with excertion, SOB at rest, sputum, wheezing, other Gastrointestinal/Abdominal: Denies: no symptoms, abdomen distended, abdominal pain, black stools, tarry stools, blood in stool, constipated, diarrhea, difficulty swallowing, nausea, poor appetite, poor fluid intake, rectal bleeding , vomiting, other Endocrine: Denies: no symptoms, excessive sweating, flushing, intolerance to cold, intolerance to heat, increased hunger, increased thirst, increased urine, unexplained weight gain, unexplained weight loss, other Hematologic/Lymphatic: Denies: no symptoms, anemia, easy bleeding, easy bruising, adenopathy, other Allergies: Coded Allergies: No Known Allergies (Unverified , 05/18/19) Subjective 05/24: awake and alert, v mask, labs reviewed, apixaban 05/25: as per gi, ngt and eliquis tolerated 05/26: pending clearance but still with ng and nonrebreather 05/27: hypoxic yesterday, deteriorated, coded, now intubated, icu, labs noted 05/28: icu, levophed gtt, hgb 7.6, repeat cbc 05/29: remains in the icu, given prbc last night, no bleeding 05/30: no events, no bleeding, ++ fredo and on pressor 05/31: intubated, bp better on pressor, no bleeding, coag ordered 06/02: reamins ill appearing, on vent, labs noted, on vent, poorly responsive Objective Objective Current Medications Medications (Trade) Dose Ordered Sig/Phillip Route PRN Reason Start Time Stop Time Status Last Admin Dose Admin Acetaminophen (Tylenol) 500 mg Q4H PRN GT Mild Pain/Temp > 100.5 05/27/19 07:45 06/19/19 20:29 05/28/19 15:39 Amiodarone HCl (Cordarone) 200 mg DAILY ORAL 05/26/19 09:00 06/21/19 20:59 06/01/19 09:48 Chlorhexidine Gluconate (Reina-Hex 2%) 1 applic DAILY@1999 TOPIC 05/27/19 20:00 06/26/19 19:59 06/01/19 22:14 Daptomycin 500 mg/ Sodium Chloride 55 ml @ 100 mls/hr Q48H IV 05/29/19 13:00 06/05/19 12:59 05/31/19 12:54 Docusate Sodium (Colace) 100 mg TID NG 05/27/19 09:00 06/20/19 08:59 06/01/19 09:47 Midodrine (Pro-Amatine) 10 mg Q8HR ORAL 06/01/19 14:00 06/27/19 14:44 06/02/19 06:00 Norepinephrine Bitartrate 4 mg/ Dextrose 250 ml @ 0 mls/hr Q24H IV 05/29/19 19:20 06/28/19 19:19 05/30/19 22:45 Pantoprazole (Protonix) 40 mg EVERY 12 HOURS IVP 05/27/19 10:45 06/26/19 10:44 06/01/19 22:13 Piperacillin Sod/ Tazobactam Sod 3.375 gm/Sodium Chloride 110 ml @ 27.5 mls/hr Q12H IVPB 05/27/19 11:30 06/03/19 11:29 06/01/19 22:13 Sodium Chloride 1,000 ml @ 75 mls/hr [id number] IV 05/27/19 10:45 06/26/19 10:44 06/02/19 00:46 Last 24 Hour Vital Signs Date Time Temp Pulse Resp B/P (MAP) Pulse Ox O2 Delivery O2 Flow Rate FiO2 06/02/19 06:00 67 21 94/32 (52) 95 06/02/19 05:30 81 29 65 06/02/19 05:00 90 28 127/44 (71) 95 06/02/19 04:00 Mechanical Ventilator 06/02/19 04:00 80 06/02/19 04:00 98.5 66 4 99/37 (57) 95 06/02/19 04:00 60 06/02/19 03:28 77 26 65 06/02/19 03:15 84 24 122/45 (70) 93 06/02/19 03:00 66 0 107/44 (65) 95 06/02/19 02:00 67 0 103/43 (63) 95 06/02/19 01:00 67 16 107/49 (68) 96 06/02/19 00:30 71 26 65 06/02/19 00:00 Mechanical Ventilator 06/02/19 00:00 97.9 67 21 114/43 (66) 96 06/02/19 00:00 60 06/02/19 00:00 72 06/01/19 23:30 62 10 85/35 (52) 96 06/01/19 23:25 71 18 65 06/01/19 23:00 70 11 116/54 (74) 95 06/01/19 22:30 69 8 109/44 (65) 95 06/01/19 22:00 65 0 101/39 (59) 94 06/01/19 21:30 73 14 125/52 (76) 94 06/01/19 21:09 71 18 65 06/01/19 21:00 68 0 98/41 (60) 94 06/01/19 20:30 77 21 123/97 (106) 94 06/01/19 20:00 98.0 95 16 147/130 (136) 98 06/01/19 20:00 67 06/01/19 20:00 60 06/01/19 20:00 Mechanical Ventilator 06/01/19 19:42 81 29 65 06/01/19 19:30 80 25 122/49 (73) 94 06/01/19 19:20 122/49 06/01/19 18:30 65 12 102/42 (62) 97 06/01/19 18:00 75 25 125/42 (69) 96 06/01/19 17:30 72 26 125/96 (106) 95 06/01/19 17:10 62 19 65 06/01/19 17:00 67 20 99/36 (57) 96 06/01/19 16:30 66 25 99/37 (57) 97 06/01/19 16:00 97.8 63 5 91/36 (54) 95 06/01/19 16:00 72 06/01/19 16:00 60 06/01/19 16:00 Mechanical Ventilator 06/01/19 15:20 63 21 65 06/01/19 15:00 68 17 96/41 (59) 97 06/01/19 14:00 77 27 106/45 (65) 97 06/01/19 13:30 88 23 109/50 (69) 97 06/01/19 13:15 85 28 65 06/01/19 13:00 88 23 122/94 (103) 97 06/01/19 12:30 83 14 124/49 (74) 96 06/01/19 12:00 97.9 75 25 117/51 (73) 95 06/01/19 12:00 65 06/01/19 12:00 Mechanical Ventilator 06/01/19 12:00 68 06/01/19 11:30 68 12 91/33 (52) 95 06/01/19 11:05 86 14 65 06/01/19 11:00 84 27 135/48 (77) 95 06/01/19 10:30 79 24 120/48 (72) 95 06/01/19 10:19 68 25 106/41 (62) 97 06/01/19 10:15 65 17 79/34 (49) 96 06/01/19 10:00 74 23 111/41 (64) 96 06/01/19 09:45 67 20 95/37 (56) 97 06/01/19 09:30 67 12 85/34 (51) 96 06/01/19 09:23 87 28 65 06/01/19 09:15 78 27 120/44 (69) 96 06/01/19 09:00 69 22 116/40 (65) 95 06/01/19 08:45 64 17 107/35 (59) 96 06/01/19 08:30 63 17 107/46 (66) 96 06/01/19 08:15 74 24 116/48 (70) 96 06/01/19 08:00 71 24 121/46 (71) 96 06/01/19 08:00 64 06/01/19 08:00 Mechanical Ventilator 06/01/19 08:00 65 06/01/19 07:45 66 20 116/45 (68) 96 06/01/19 07:30 96.1 63 18 97/41 (59) 95 06/01/19 07:20 69 24 65 06/01/19 07:00 63 18 91/39 (56) 96 06/01/19 07:00 91/39 06/01/19 06:30 78 26 110/40 (63) 95 06/01/19 06:00 128/46 06/01/19 06:00 78 25 128/46 (73) 94 06/01/19 05:30 63 18 97/41 (59) 98 06/01/19 05:15 73 25 65 1/5/20 05:00 92/35 06/01/19 05:00 66 19 92/35 (54) 97 06/01/19 04:30 62 17 92/35 (54) 97 06/01/19 04:00 107/39 06/01/19 04:00 Mechanical Ventilator 06/01/19 04:00 98.0 62 15 107/39 (61) 97 06/01/19 04:00 65 06/01/19 03:45 65 16 95/36 (55) 96 06/01/19 03:42 66 23 65 06/01/19 03:32 62 17 85/36 (52) 98 06/01/19 03:30 63 18 97 06/01/19 03:30 85/36 06/01/19 03:19 68 06/01/19 03:17 64 20 99/37 (57) 98 06/01/19 03:15 62 18 86/35 (52) 96 06/01/19 03:00 64 18 94/35 (54) 97 06/01/19 03:00 94/35 06/01/19 02:45 65 17 90/34 (52) 97 06/01/19 02:30 69 22 94/41 (58) 96 06/01/19 02:18 65 15 80/31 (47) 97 06/01/19 02:18 80/31 06/01/19 02:00 81 22 99/34 (55) 96 06/01/19 01:30 82 19 113/83 (93) 94 06/01/19 01:12 78 20 65 06/01/19 01:00 67 18 83/29 (47) 96 06/01/19 00:06 76 21 65 06/01/19 00:00 Mechanical Ventilator 06/01/19 00:00 98.4 72 23 111/43 (65) 96 06/01/19 00:00 65 05/31/19 23:47 66 05/31/19 23:30 66 17 94/36 (55) 97 05/31/19 23:00 62 16 96/42 (60) 99 05/31/19 22:30 63 17 100/48 (65) 99 05/31/19 22:00 69 22 97/39 (58) 97 05/31/19 21:30 66 21 112/43 (66) 97 05/31/19 21:23 64 21 65 05/31/19 21:00 67 20 92/37 (55) 98 05/31/19 20:15 73 4 118/38 (64) 97 05/31/19 20:00 78 23 65 05/31/19 20:00 65 05/31/19 20:00 78 05/31/19 20:00 98.5 78 25 113/44 (67) 96 05/31/19 20:00 Mechanical Ventilator 05/31/19 19:00 78 24 132/48 (76) 96 05/31/19 18:00 92 26 133/40 (71) 93 05/31/19 17:19 69 17 65 05/31/19 17:00 98.8 76 25 111/42 (65) 94 05/31/19 16:00 Mechanical Ventilator 05/31/19 16:00 76 25 120/52 (74) 95 05/31/19 16:00 79 05/31/19 16:00 65 05/31/19 15:00 74 16 134/47 (76) 94 05/31/19 14:00 63 17 91/42 (58) 95 05/31/19 13:30 80 22 125/50 (75) 94 05/31/19 13:09 81 26 65 05/31/19 13:00 98.1 88 16 134/41 (72) 98 05/31/19 12:30 71 18 126/44 (71) 96 05/31/19 12:00 73 05/31/19 12:00 Mechanical Ventilator 05/31/19 12:00 65 05/31/19 12:00 66 18 97/44 (61) 96 05/31/19 11:30 68 19 109/43 (65) 95 05/31/19 11:00 65 17 76/31 (46) 96 05/31/19 10:52 81 26 65 05/31/19 10:30 83 21 128/42 (70) 94 05/31/19 10:00 126/39 05/31/19 10:00 85 23 126/39 (68) 94 05/31/19 09:30 84 20 138/52 (80) 95 05/31/19 09:15 66 20 65 05/31/19 09:00 66 20 107/45 (65) 97 05/31/19 09:00 107/45 05/31/19 08:30 62 19 117/52 (73) 97 05/31/19 08:00 63 05/31/19 08:00 Mechanical Ventilator 05/31/19 08:00 65 05/31/19 08:00 104/43 05/31/19 08:00 98.2 63 19 104/43 (63) 97 05/31/19 07:30 63 17 108/37 (60) 97 05/31/19 07:24 68 26 65 Intake and Output 06/01/19 06/02/19 19:00 07:00 Intake Total 1487.5 ml 1340.0 ml Output Total 181 ml 360 ml Balance 1306.5 ml 980.0 ml Free Water 170 ml 50 ml IV Total 1077.5 ml 860.0 ml Tube Feeding 240 ml 430 ml Output Urine Total 181 ml 360 ml # Bowel Movements 2 Labs Test 05/31/19 04:41 05/31/19 11:28 06/01/19 05:07 06/02/19 05:10 Sodium Level 137 MMOL/L (136-145) 137 MMOL/L (136-145) 136 MMOL/L (136-145) Potassium Level 4.0 MMOL/L (3.5-5.1) 4.1 MMOL/L (3.5-5.1) 3.9 MMOL/L (3.5-5.1) Chloride Level 106 MMOL/L (98-107) 104 MMOL/L (98-107) 103 MMOL/L (98-107) Carbon Dioxide Level 18 MMOL/L (21-32) 16 MMOL/L (21-32) 16 MMOL/L (21-32) Anion Gap 13 mmol/L (5-15) 17 mmol/L (5-15) 17 mmol/L (5-15) Blood Urea Nitrogen 79 mg/dL (7-18) 80 mg/dL (7-18) 80 mg/dL (7-18) Creatinine 4.4 MG/DL (0.55-1.30) 4.8 MG/DL (0.55-1.30) 5.4 MG/DL (0.55-1.30) Estimat Glomerular Filtration Rate mL/min (>60) mL/min (>60) mL/min (>60) Glucose Level 91 MG/DL (74-106) 77 MG/DL (74-106) 103 MG/DL (74-106) Calcium Level 6.7 MG/DL (8.5-10.1) 6.6 MG/DL (8.5-10.1) 6.8 MG/DL (8.5-10.1) Phosphorus Level 5.8 MG/DL (2.5-4.9) 6.3 MG/DL (2.5-4.9) 6.4 MG/DL (2.5-4.9) Magnesium Level 2.0 MG/DL (1.8-2.4) 1.9 MG/DL (1.8-2.4) 2.0 MG/DL (1.8-2.4) Total Bilirubin 0.4 MG/DL (0.2-1.0) 0.4 MG/DL (0.2-1.0) 0.4 MG/DL (0.2-1.0) Aspartate Amino Transf (AST/SGOT) 28 U/L (15-37) 25 U/L (15-37) 25 U/L (15-37) Alanine Aminotransferase (ALT/SGPT) 19 U/L (12-78) 17 U/L (12-78) 17 U/L (12-78) Alkaline Phosphatase 49 U/L (46-116) 48 U/L (46-116) 57 U/L (46-116) Total Protein 4.9 G/DL (6.4-8.2) 4.9 G/DL (6.4-8.2) 5.3 G/DL (6.4-8.2) Albumin 1.8 G/DL (3.4-5.0) 1.6 G/DL (3.4-5.0) 1.7 G/DL (3.4-5.0) Globulin 3.1 g/dL 3.3 g/dL 3.6 g/dL Albumin/Globulin Ratio 0.6 (1.0-2.7) 0.5 (1.0-2.7) 0.5 (1.0-2.7) Random Vancomycin Level 24.0 ug/mL 22.2 ug/mL 21.1 ug/mL Activated Partial Thromboplast Time 43 SEC (23-33) 36 SEC (23-33) White Blood Count 9.8 K/UL (4.8-10.8) 9.5 K/UL (4.8-10.8) Red Blood Count 2.90 M/UL (4.70-6.10) 3.05 M/UL (4.70-6.10) Hemoglobin 8.7 G/DL (14.2-18.0) 9.2 G/DL (14.2-18.0) Hematocrit 26.7 % (42.0-52.0) 28.1 % (42.0-52.0) Mean Corpuscular Volume 92 FL (80-99) 92 FL (80-99) Mean Corpuscular Hemoglobin 30.0 PG (27.0-31.0) 30.1 PG (27.0-31.0) Mean Corpuscular Hemoglobin Concent 32.6 G/DL (32.0-36.0) 32.7 G/DL (32.0-36.0) Red Cell Distribution Width 15.4 % (11.6-14.8) 16.4 % (11.6-14.8) Platelet Count 203 K/UL (150-450) 208 K/UL (150-450) Mean Platelet Volume 4.6 FL (6.5-10.1) 5.1 FL (6.5-10.1) Neutrophils (%) (Auto) % (45.0-75.0) % (45.0-75.0) Lymphocytes (%) (Auto) % (20.0-45.0) % (20.0-45.0) Monocytes (%) (Auto) % (1.0-10.0) % (1.0-10.0) Eosinophils (%) (Auto) % (0.0-3.0) % (0.0-3.0) Basophils (%) (Auto) % (0.0-2.0) % (0.0-2.0) Differential Total Cells Counted 100 Neutrophils % (Manual) 85 % (45-75) Lymphocytes % (Manual) 10 % (20-45) Monocytes % (Manual) 5 % (1-10) Eosinophils % (Manual) 0 % (0-3) Basophils % (Manual) 0 % (0-2) Band Neutrophils 0 % (0-8) Platelet Estimate Adequate Platelet Morphology Normal Hypochromasia 2+ Anisocytosis 1+ Lactic Acid Level 0.50 mmol/L (0.4-2.0) Uric Acid 6.9 MG/DL (2.6-7.2) 7.1 MG/DL (2.6-7.2) Troponin I 0.027 ng/mL (0.000-0.056) C-Reactive Protein, Quantitative 10.6 mg/dL (0.00-0.90) 8.1 mg/dL (0.00-0.90) Pro-B-Type Natriuretic Peptide 5833 pg/mL (0-125) 6721 pg/mL (0-125) Prothrombin Time 11.8 SEC (9.30-11.50) Prothromb Time International Ratio 1.1 (0.9-1.1) Height (Feet): 5 Height (Inches): 7.00 Weight (Pounds): 190 Objective PE: Vitals: reviewed General Appearance: NAD HEENT: normocephalic, atraumatic++ ngt Neck: non-tender, normal alignment Respiratory/Chest: VENT++ Cardiovascular/Chest: normal peripheral pulses, normal rate Abdomen: normal bowel sounds, soft, nontender Extremities: normal range of motion ++ right arm swelling Suleman Addison MD Jun 02, 2019 07:08
--- NOTE | 2019-06-02 08:48 | Critical Care Progress Note ---
Assessment/Plan Assessment/Plan IMPRESSION AND PLAN: 1. Pneumonia. bilateral 2. Cellulitis. 3. History of COPD. 4. Hypertension. 5. Afib with RVR; rate controlled 6. Respiratory failure, acute 7. Hypoxemia, improved 8. Chronic renal failure 9. severe protein sabina malnutrition 10. chronic anemia PLAN vent support still too ill to wean consider wean when fio2 improves further - on 65% at this point adjust PEEP monitor imaging for change monitor imaging closely support as able in ICU feeds as able and monitor for residuals off load and monitor closely nutrition as able monitor protein levels and prealbumin follow up cxr with noted infiltrates check BNP medications/laboratory data/nursing notes/ICU care reviewed in detail note reviewed and edited care discussed with RN and RT ICU time spent 40 minutes Critical Care - Subjective Interval Events: on vent still on 65% fio2 renal noted ROS Limited/Unobtainable: Yes Condition: critical EKG Rhythm: Sinus Rhythm Residuals: minimal Tube Feeding Tolerated: yes I&O: Intake and Output 06/01/19 06/02/19 19:00 07:00 Intake Total 1487.5 ml 1380.0 ml Output Total 181 ml 390 ml Balance 1306.5 ml 990.0 ml Free Water 170 ml 50 ml IV Total 1077.5 ml 860.0 ml Tube Feeding 240 ml 470 ml Output Urine Total 181 ml 390 ml # Bowel Movements 2 Critical Care - Objective CXR: worsening infiltrates ET-Tube: 7.5 ET Position: 25 Last 24 Hour Vital Signs Date Time Temp Pulse Resp B/P (MAP) Pulse Ox O2 Delivery O2 Flow Rate FiO2 06/02/19 08:00 Mechanical Ventilator 06/02/19 07:06 64 20 65 06/02/19 06:00 67 21 94/32 (52) 95 06/02/19 05:30 81 29 65 06/02/19 05:00 90 28 127/44 (71) 95 06/02/19 04:00 Mechanical Ventilator 06/02/19 04:00 80 06/02/19 04:00 98.5 66 4 99/37 (57) 95 06/02/19 04:00 60 06/02/19 03:28 77 26 65 06/02/19 03:15 84 24 122/45 (70) 93 06/02/19 03:00 66 0 107/44 (65) 95 06/02/19 02:00 67 0 103/43 (63) 95 06/02/19 01:00 67 16 107/49 (68) 96 06/02/19 00:30 71 26 65 06/02/19 00:00 Mechanical Ventilator 06/02/19 00:00 97.9 67 21 114/43 (66) 96 06/02/19 00:00 60 06/02/19 00:00 72 06/01/19 23:30 62 10 85/35 (52) 96 06/01/19 23:25 71 18 65 06/01/19 23:00 70 11 116/54 (74) 95 06/01/19 22:30 69 8 109/44 (65) 95 06/01/19 22:00 65 0 101/39 (59) 94 06/01/19 21:30 73 14 125/52 (76) 94 06/01/19 21:09 71 18 65 06/01/19 21:00 68 0 98/41 (60) 94 06/01/19 20:30 77 21 123/97 (106) 94 06/01/19 20:00 98.0 95 16 147/130 (136) 98 06/01/19 20:00 67 06/01/19 20:00 60 06/01/19 20:00 Mechanical Ventilator 06/01/19 19:42 81 29 65 06/01/19 19:30 80 25 122/49 (73) 94 06/01/19 19:20 122/49 06/01/19 18:30 65 12 102/42 (62) 97 06/01/19 18:00 75 25 125/42 (69) 96 06/01/19 17:30 72 26 125/96 (106) 95 06/01/19 17:10 62 19 65 06/01/19 17:00 67 20 99/36 (57) 96 06/01/19 16:30 66 25 99/37 (57) 97 06/01/19 16:00 97.8 63 5 91/36 (54) 95 06/01/19 16:00 72 06/01/19 16:00 60 06/01/19 16:00 Mechanical Ventilator 06/01/19 15:20 63 21 65 06/01/19 15:00 68 17 96/41 (59) 97 06/01/19 14:00 77 27 106/45 (65) 97 06/01/19 13:30 88 23 109/50 (69) 97 06/01/19 13:15 85 28 65 06/01/19 13:00 88 23 122/94 (103) 97 06/01/19 12:30 83 14 124/49 (74) 96 06/01/19 12:00 97.9 75 25 117/51 (73) 95 06/01/19 12:00 65 06/01/19 12:00 Mechanical Ventilator 06/01/19 12:00 68 06/01/19 11:30 68 12 91/33 (52) 95 06/01/19 11:05 86 14 65 06/01/19 11:00 84 27 135/48 (77) 95 06/01/19 10:30 79 24 120/48 (72) 95 06/01/19 10:19 68 25 106/41 (62) 97 06/01/19 10:15 65 17 79/34 (49) 96 06/01/19 10:00 74 23 111/41 (64) 96 06/01/19 09:45 67 20 95/37 (56) 97 06/01/19 09:30 67 12 85/34 (51) 96 06/01/19 09:23 87 28 65 06/01/19 09:15 78 27 120/44 (69) 96 06/01/19 09:00 69 22 116/40 (65) 95 Labs: Labs Test 05/31/19 04:41 05/31/19 11:28 06/01/19 05:07 06/02/19 05:10 Sodium Level 137 MMOL/L (136-145) 137 MMOL/L (136-145) 136 MMOL/L (136-145) Potassium Level 4.0 MMOL/L (3.5-5.1) 4.1 MMOL/L (3.5-5.1) 3.9 MMOL/L (3.5-5.1) Chloride Level 106 MMOL/L (98-107) 104 MMOL/L (98-107) 103 MMOL/L (98-107) Carbon Dioxide Level 18 MMOL/L (21-32) 16 MMOL/L (21-32) 16 MMOL/L (21-32) Anion Gap 13 mmol/L (5-15) 17 mmol/L (5-15) 17 mmol/L (5-15) Blood Urea Nitrogen 79 mg/dL (7-18) 80 mg/dL (7-18) 80 mg/dL (7-18) Creatinine 4.4 MG/DL (0.55-1.30) 4.8 MG/DL (0.55-1.30) 5.4 MG/DL (0.55-1.30) Estimat Glomerular Filtration Rate mL/min (>60) mL/min (>60) mL/min (>60) Glucose Level 91 MG/DL (74-106) 77 MG/DL (74-106) 103 MG/DL (74-106) Calcium Level 6.7 MG/DL (8.5-10.1) 6.6 MG/DL (8.5-10.1) 6.8 MG/DL (8.5-10.1) Phosphorus Level 5.8 MG/DL (2.5-4.9) 6.3 MG/DL (2.5-4.9) 6.4 MG/DL (2.5-4.9) Magnesium Level 2.0 MG/DL (1.8-2.4) 1.9 MG/DL (1.8-2.4) 2.0 MG/DL (1.8-2.4) Total Bilirubin 0.4 MG/DL (0.2-1.0) 0.4 MG/DL (0.2-1.0) 0.4 MG/DL (0.2-1.0) Aspartate Amino Transf (AST/SGOT) 28 U/L (15-37) 25 U/L (15-37) 25 U/L (15-37) Alanine Aminotransferase (ALT/SGPT) 19 U/L (12-78) 17 U/L (12-78) 17 U/L (12-78) Alkaline Phosphatase 49 U/L (46-116) 48 U/L (46-116) 57 U/L (46-116) Total Protein 4.9 G/DL (6.4-8.2) 4.9 G/DL (6.4-8.2) 5.3 G/DL (6.4-8.2) Albumin 1.8 G/DL (3.4-5.0) 1.6 G/DL (3.4-5.0) 1.7 G/DL (3.4-5.0) Globulin 3.1 g/dL 3.3 g/dL 3.6 g/dL Albumin/Globulin Ratio 0.6 (1.0-2.7) 0.5 (1.0-2.7) 0.5 (1.0-2.7) Random Vancomycin Level 24.0 ug/mL 22.2 ug/mL 21.1 ug/mL Activated Partial Thromboplast Time 43 SEC (23-33) 36 SEC (23-33) White Blood Count 9.8 K/UL (4.8-10.8) 9.5 K/UL (4.8-10.8) Red Blood Count 2.90 M/UL (4.70-6.10) 3.05 M/UL (4.70-6.10) Hemoglobin 8.7 G/DL (14.2-18.0) 9.2 G/DL (14.2-18.0) Hematocrit 26.7 % (42.0-52.0) 28.1 % (42.0-52.0) Mean Corpuscular Volume 92 FL (80-99) 92 FL (80-99) Mean Corpuscular Hemoglobin 30.0 PG (27.0-31.0) 30.1 PG (27.0-31.0) Mean Corpuscular Hemoglobin Concent 32.6 G/DL (32.0-36.0) 32.7 G/DL (32.0-36.0) Red Cell Distribution Width 15.4 % (11.6-14.8) 16.4 % (11.6-14.8) Platelet Count 203 K/UL (150-450) 208 K/UL (150-450) Mean Platelet Volume 4.6 FL (6.5-10.1) 5.1 FL (6.5-10.1) Neutrophils (%) (Auto) % (45.0-75.0) % (45.0-75.0) Lymphocytes (%) (Auto) % (20.0-45.0) % (20.0-45.0) Monocytes (%) (Auto) % (1.0-10.0) % (1.0-10.0) Eosinophils (%) (Auto) % (0.0-3.0) % (0.0-3.0) Basophils (%) (Auto) % (0.0-2.0) % (0.0-2.0) Differential Total Cells Counted 100 Neutrophils % (Manual) 85 % (45-75) Lymphocytes % (Manual) 10 % (20-45) Monocytes % (Manual) 5 % (1-10) Eosinophils % (Manual) 0 % (0-3) Basophils % (Manual) 0 % (0-2) Band Neutrophils 0 % (0-8) Platelet Estimate Adequate Platelet Morphology Normal Hypochromasia 2+ Anisocytosis 1+ Lactic Acid Level 0.50 mmol/L (0.4-2.0) Uric Acid 6.9 MG/DL (2.6-7.2) 7.1 MG/DL (2.6-7.2) Troponin I 0.027 ng/mL (0.000-0.056) C-Reactive Protein, Quantitative 10.6 mg/dL (0.00-0.90) 8.1 mg/dL (0.00-0.90) Pro-B-Type Natriuretic Peptide 5833 pg/mL (0-125) 6721 pg/mL (0-125) Prothrombin Time 11.8 SEC (9.30-11.50) Prothromb Time International Ratio 1.1 (0.9-1.1) Objective: WDWN NAD orally intubated and on vent reduced breath sounds bilaterally with some rhonchi [id number] without MRG NABS nontender no HSM; feeding tube in place no CC mild edema overall without change nonfocal reviewed and edited Micro: Microbiology Date/Time Source Procedure Growth Status 05/30/19 12:00 Blood Blood Culture - Preliminary NO GROWTH AFTER 48 HOURS Resulted 05/30/19 12:00 Blood Blood Culture - Preliminary NO GROWTH AFTER 48 HOURS Resulted 05/30/19 11:50 Blood Blood Culture - Preliminary NO GROWTH AFTER 48 HOURS Resulted 05/30/19 11:30 Blood Blood Culture - Preliminary NO GROWTH AFTER 48 HOURS Resulted 05/30/19 13:50 Sputum Gram Stain - Final Complete 05/30/19 13:50 Sputum Culture - Final Marily Lusitaniae Complete 05/30/19 13:50 Indwelling Cath Urine Culture - Final NO GROWTH AFTER 48 HOURS Complete Accucheck: 130 Korey Mtz MD Jun 02, 2019 08:48
[2019-06-02] MEDS: Docusate 100mg/10ml Liq NG SCH ×3 (09:20→18:00)
[2019-06-02] MEDS: Pantoprazole Inj IVP SCH ×2 (09:20→20:59)
[2019-06-02] MEDS: Amiodarone 200mg tab ORAL SCH (09:21)
--- NOTE | 2019-06-02 10:20 | Nephrology Progress Note ---
Assessment/Plan Problem List: (1) Renal failure (ARF), acute on chronic Assessment: Cr rising (2) Cellulitis of upper extremity (3) A-fib (4) Pneumonia (5) UTI (urinary tract infection) (6) Anemia Assessment: worsened (7) Hypothyroidism Assessment - KIMO on CKD - Urinary tract infection. - Anemia- - Dehydration. - Cellulitis of Upper extremity - HTN Plan need dialysis URGENT non tunneled cath ordered no family for consent in ICU- intubated on pressors BP meds and Mind altering meds discontinued start midodrine check vanco levels - hold vanco doses previously: Per cardiology Anemia kumari- Avoid Nephrotoxics Per ID Allow CHANDA inhibitor to continue as long as renal function does not worsen. PICC line has been removed. CXR: Increased right pleural effusion and similar left pleural effusion. Increased interstitial and hazy opacities throughout the lungs. Subjective ROS Limited/Unobtainable: Yes Objective Objective Last 24 Hour Vital Signs Date Time Temp Pulse Resp B/P (MAP) Pulse Ox O2 Delivery O2 Flow Rate FiO2 06/02/19 10:00 67 16 110/40 (63) 96 06/02/19 09:10 76 30 65 06/02/19 09:00 75 24 110/35 (60) 96 06/02/19 08:00 Mechanical Ventilator 06/02/19 08:00 63 17 104/36 (58) 97 06/02/19 08:00 60 06/02/19 07:06 64 20 65 06/02/19 07:00 97.8 70 23 95/34 (54) 95 06/02/19 06:00 67 21 94/32 (52) 95 06/02/19 05:30 81 29 65 06/02/19 05:00 90 28 127/44 (71) 95 06/02/19 04:00 Mechanical Ventilator 06/02/19 04:00 80 06/02/19 04:00 98.5 66 4 99/37 (57) 95 06/02/19 04:00 60 06/02/19 03:28 77 26 65 06/02/19 03:15 84 24 122/45 (70) 93 06/02/19 03:00 66 0 107/44 (65) 95 06/02/19 02:00 67 0 103/43 (63) 95 06/02/19 01:00 67 16 107/49 (68) 96 06/02/19 00:30 71 26 65 06/02/19 00:00 Mechanical Ventilator 06/02/19 00:00 97.9 67 21 114/43 (66) 96 06/02/19 00:00 60 06/02/19 00:00 72 06/01/19 23:30 62 10 85/35 (52) 96 06/01/19 23:25 71 18 65 06/01/19 23:00 70 11 116/54 (74) 95 06/01/19 22:30 69 8 109/44 (65) 95 06/01/19 22:00 65 0 101/39 (59) 94 06/01/19 21:30 73 14 125/52 (76) 94 06/01/19 21:09 71 18 65 06/01/19 21:00 68 0 98/41 (60) 94 06/01/19 20:30 77 21 123/97 (106) 94 06/01/19 20:00 98.0 95 16 147/130 (136) 98 06/01/19 20:00 67 06/01/19 20:00 60 06/01/19 20:00 Mechanical Ventilator 06/01/19 19:42 81 29 65 06/01/19 19:30 80 25 122/49 (73) 94 06/01/19 19:20 122/49 06/01/19 18:30 65 12 102/42 (62) 97 06/01/19 18:00 75 25 125/42 (69) 96 06/01/19 17:30 72 26 125/96 (106) 95 06/01/19 17:10 62 19 65 06/01/19 17:00 67 20 99/36 (57) 96 06/01/19 16:30 66 25 99/37 (57) 97 06/01/19 16:00 97.8 63 5 91/36 (54) 95 06/01/19 16:00 72 06/01/19 16:00 60 06/01/19 16:00 Mechanical Ventilator 06/01/19 15:20 63 21 65 06/01/19 15:00 68 17 96/41 (59) 97 06/01/19 14:00 77 27 106/45 (65) 97 06/01/19 13:30 88 23 109/50 (69) 97 06/01/19 13:15 85 28 65 06/01/19 13:00 88 23 122/94 (103) 97 06/01/19 12:30 83 14 124/49 (74) 96 06/01/19 12:00 97.9 75 25 117/51 (73) 95 06/01/19 12:00 65 06/01/19 12:00 Mechanical Ventilator 06/01/19 12:00 68 06/01/19 11:30 68 12 91/33 (52) 95 06/01/19 11:05 86 14 65 06/01/19 11:00 84 27 135/48 (77) 95 06/01/19 10:30 79 24 120/48 (72) 95 Intake and Output 06/01/19 06/02/19 19:00 07:00 Intake Total 1487.5 ml 1380.0 ml Output Total 181 ml 390 ml Balance 1306.5 ml 990.0 ml Free Water 170 ml 50 ml IV Total 1077.5 ml 860.0 ml Tube Feeding 240 ml 470 ml Output Urine Total 181 ml 390 ml # Bowel Movements 2 Laboratory Tests 06/02/19 05:10: White Blood Count 9.5, Red Blood Count 3.05L, Hemoglobin 9.2L, Hematocrit 28.1L , Mean Corpuscular Volume 92, Mean Corpuscular Hemoglobin 30.1, Mean Corpuscular Hemoglobin Concent 32.7, Red Cell Distribution Width 16.4H, Platelet Count 208, Mean Platelet Volume 5.1L, Neutrophils (%) (Auto) , Lymphocytes (%) (Auto) , Monocytes (%) (Auto) , Eosinophils (%) (Auto) , Basophils (%) (Auto) , Prothrombin Time 11.8H, Prothromb Time International Ratio 1.1, Activated Partial Thromboplast Time 36H, Sodium Level 136, Potassium Level 3.9, Chloride Level 103, Carbon Dioxide Level 16L, Anion Gap 17H, Blood Urea Nitrogen 80H, Creatinine 5.4H, Estimat Glomerular Filtration Rate , Glucose Level 103, Uric Acid 7.1, Calcium Level 6.8L, Phosphorus Level 6.4H, Magnesium Level 2.0, Total Bilirubin 0.4, Aspartate Amino Transf (AST/SGOT) 25, Alanine Aminotransferase (ALT/SGPT) 17, Alkaline Phosphatase 57, C-Reactive Protein, Quantitative 8.1H, Pro-B-Type Natriuretic Peptide 6721H, Total Protein 5.3L, Albumin 1.7L, Globulin 3.6, Albumin/Globulin Ratio 0.5L, Random Vancomycin Level 21.1 Height (Feet): 5 Height (Inches): 7.00 Weight (Pounds): 190 General Appearance: no apparent distress EENT: other - vented Cardiovascular: normal rate Respiratory/Chest: decreased breath sounds Abdomen: distended Reinier Mera MD Jun 02, 2019 10:20
--- NOTE | 2019-06-02 10:30 | Diagnostic Imaging Report ---
Indication: Dyspnea Technique: One view of the chest Comparison: 06/01/2019 Findings: Stable tube and line positions. Bilateral extensive interstitial and airspace infiltrates versus edema and bilateral pleural effusions are unchanged Impression: Unchanged, over one day, findings as above.
--- NOTE | 2019-06-02 10:50 | Infectious Diseases Prog Note ---
Assessment/Plan Assessment/Plan 84 yo male with PMHx of HTN who was sent to the ED on 05/18/19 from his [facility] for possible picc line infection. Swelling around PICC line Minimal to no erythema and no purulent drainage Not likely to be infected Blood Cx 05/18/19 - NGTD PICC Tip Cx 05/18/19 - NGTD PICC line removed 05/18/19 No Leukocytosis No fever OM - Let foot On Vancomycin at nursing End date early May PNA on 8L NC CXR - Some LLL Atelectasis vs PNA, Nodules CT 05/20/19 - Bilateral upper lobe infiltrates worse on the right. Consider pneumonia. Bilateral pleural effusions moderate in size Sp Cx Marily HTN PLAN - Continue Daptomycin for OM End date per [facility] MD - Continue Zosyn #7 for probable PNA - 05/28/19 SP Vancomycin per pharmacy - Stopped for increasing Cr - 05/27/19 SP Levofloxacin #5 - Get OSH records for OM - Monitor CBC and Temps Thank you for this consult. [facility] will continue to follow the patient with you during this hospitalization. Subjective Allergies: Coded Allergies: No Known Allergies (Unverified , 05/18/19) Subjective On Vent 65% O2 Afebrile No Leukocytosis yesterday Objective Vital Signs Last 24 Hour Vital Signs Date Time Temp Pulse Resp B/P (MAP) Pulse Ox O2 Delivery O2 Flow Rate FiO2 06/02/19 10:00 67 16 110/40 (63) 96 06/02/19 09:10 76 30 65 06/02/19 09:00 75 24 110/35 (60) 96 06/02/19 08:00 Mechanical Ventilator 06/02/19 08:00 63 17 104/36 (58) 97 06/02/19 08:00 60 06/02/19 07:06 64 20 65 06/02/19 07:00 97.8 70 23 95/34 (54) 95 06/02/19 06:00 67 21 94/32 (52) 95 06/02/19 05:30 81 29 65 06/02/19 05:00 90 28 127/44 (71) 95 06/02/19 04:00 Mechanical Ventilator 06/02/19 04:00 80 06/02/19 04:00 98.5 66 4 99/37 (57) 95 06/02/19 04:00 60 1/6/20 03:28 77 26 65 06/02/19 03:15 84 24 122/45 (70) 93 06/02/19 03:00 66 0 107/44 (65) 95 06/02/19 02:00 67 0 103/43 (63) 95 06/02/19 01:00 67 16 107/49 (68) 96 06/02/19 00:30 71 26 65 06/02/19 00:00 Mechanical Ventilator 06/02/19 00:00 97.9 67 21 114/43 (66) 96 06/02/19 00:00 60 06/02/19 00:00 72 06/01/19 23:30 62 10 85/35 (52) 96 06/01/19 23:25 71 18 65 06/01/19 23:00 70 11 116/54 (74) 95 06/01/19 22:30 69 8 109/44 (65) 95 06/01/19 22:00 65 0 101/39 (59) 94 06/01/19 21:30 73 14 125/52 (76) 94 06/01/19 21:09 71 18 65 06/01/19 21:00 68 0 98/41 (60) 94 06/01/19 20:30 77 21 123/97 (106) 94 06/01/19 20:00 98.0 95 16 147/130 (136) 98 06/01/19 20:00 67 06/01/19 20:00 60 06/01/19 20:00 Mechanical Ventilator 06/01/19 19:42 81 29 65 06/01/19 19:30 80 25 122/49 (73) 94 06/01/19 19:20 122/49 06/01/19 18:30 65 12 102/42 (62) 97 06/01/19 18:00 75 25 125/42 (69) 96 06/01/19 17:30 72 26 125/96 (106) 95 06/01/19 17:10 62 19 65 06/01/19 17:00 67 20 99/36 (57) 96 06/01/19 16:30 66 25 99/37 (57) 97 06/01/19 16:00 97.8 63 5 91/36 (54) 95 06/01/19 16:00 72 06/01/19 16:00 60 1/5/20 16:00 Mechanical Ventilator 06/01/19 15:20 63 21 65 06/01/19 15:00 68 17 96/41 (59) 97 06/01/19 14:00 77 27 106/45 (65) 97 06/01/19 13:30 88 23 109/50 (69) 97 06/01/19 13:15 85 28 65 06/01/19 13:00 88 23 122/94 (103) 97 06/01/19 12:30 83 14 124/49 (74) 96 06/01/19 12:00 97.9 75 25 117/51 (73) 95 06/01/19 12:00 65 06/01/19 12:00 Mechanical Ventilator 06/01/19 12:00 68 06/01/19 11:30 68 12 91/33 (52) 95 06/01/19 11:05 86 14 65 06/01/19 11:00 84 27 135/48 (77) 95 Height (Feet): 5 Height (Inches): 7.00 Weight (Pounds): 190 Objective Gen: Intubatd on vent, Eyes open HEENT: NCAT, MMM, EOMI LUNGS: Coarse B/L, Tight and wheezy CARDS: RRR, S1, S2 ABD: Soft, NT, ND Microbiology Date/Time Source Procedure Growth Status 05/30/19 12:00 Blood Blood Culture - Preliminary NO GROWTH AFTER 48 HOURS Resulted 05/30/19 12:00 Blood Blood Culture - Preliminary NO GROWTH AFTER 48 HOURS Resulted 05/30/19 11:50 Blood Blood Culture - Preliminary NO GROWTH AFTER 48 HOURS Resulted 05/30/19 11:30 Blood Blood Culture - Preliminary NO GROWTH AFTER 48 HOURS Resulted 05/30/19 13:50 Sputum Gram Stain - Final Complete 05/30/19 13:50 Sputum Culture - Final Marily Lusitaniae Complete 05/30/19 13:50 Indwelling Cath Urine Culture - Final NO GROWTH AFTER 48 HOURS Complete Laboratory Tests Test 06/02/19 05:10 White Blood Count 9.5 K/UL (4.8-10.8) Red Blood Count 3.05 M/UL (4.70-6.10) L Hemoglobin 9.2 G/DL (14.2-18.0) L Hematocrit 28.1 % (42.0-52.0) L Mean Corpuscular Volume 92 FL (80-99) Mean Corpuscular Hemoglobin 30.1 PG (27.0-31.0) Mean Corpuscular Hemoglobin Concent 32.7 G/DL (32.0-36.0) Red Cell Distribution Width 16.4 % (11.6-14.8) H Platelet Count 208 K/UL (150-450) Mean Platelet Volume 5.1 FL (6.5-10.1) L Neutrophils (%) (Auto) % (45.0-75.0) Lymphocytes (%) (Auto) % (20.0-45.0) Monocytes (%) (Auto) % (1.0-10.0) Eosinophils (%) (Auto) % (0.0-3.0) Basophils (%) (Auto) % (0.0-2.0) Prothrombin Time 11.8 SEC (9.30-11.50) H Prothromb Time International Ratio 1.1 (0.9-1.1) Activated Partial Thromboplast Time 36 SEC (23-33) H Sodium Level 136 MMOL/L (136-145) Potassium Level 3.9 MMOL/L (3.5-5.1) Chloride Level 103 MMOL/L (98-107) Carbon Dioxide Level 16 MMOL/L (21-32) L Anion Gap 17 mmol/L (5-15) H Blood Urea Nitrogen 80 mg/dL (7-18) H Creatinine 5.4 MG/DL (0.55-1.30) H Estimat Glomerular Filtration Rate mL/min (>60) Glucose Level 103 MG/DL (74-106) Uric Acid 7.1 MG/DL (2.6-7.2) Calcium Level 6.8 MG/DL (8.5-10.1) L Phosphorus Level 6.4 MG/DL (2.5-4.9) H Magnesium Level 2.0 MG/DL (1.8-2.4) Total Bilirubin 0.4 MG/DL (0.2-1.0) Aspartate Amino Transf (AST/SGOT) 25 U/L (15-37) Alanine Aminotransferase (ALT/SGPT) 17 U/L (12-78) Alkaline Phosphatase 57 U/L (46-116) C-Reactive Protein, Quantitative 8.1 mg/dL (0.00-0.90) H Pro-B-Type Natriuretic Peptide 6721 pg/mL (0-125) H Total Protein 5.3 G/DL (6.4-8.2) L Albumin 1.7 G/DL (3.4-5.0) L Globulin 3.6 g/dL Albumin/Globulin Ratio 0.5 (1.0-2.7) L Random Vancomycin Level 21.1 ug/mL Current Medications Medications (Trade) Dose Ordered Sig/Phillip Route PRN Reason Start Time Stop Time Status Last Admin Dose Admin Acetaminophen (Tylenol) 500 mg Q4H PRN GT Mild Pain/Temp > 100.5 05/27/19 07:45 06/19/19 20:29 05/28/19 15:39 Amiodarone HCl (Cordarone) 200 mg DAILY ORAL 05/26/19 09:00 06/21/19 20:59 06/02/19 09:21 Chlorhexidine Gluconate (Reina-Hex 2%) 1 applic DAILY@2000 TOPIC 05/27/19 20:00 06/26/19 19:59 06/01/19 22:14 Daptomycin 500 mg/ Sodium Chloride 55 ml @ 100 mls/hr Q48H IV 05/29/19 13:00 06/05/19 12:59 05/31/19 12:54 Docusate Sodium (Colace) 100 mg TID NG 05/27/19 09:00 06/20/19 08:59 06/02/19 09:20 Midodrine (Pro-Amatine) 10 mg Q8HR ORAL 06/01/19 14:00 06/27/19 14:44 06/02/19 06:00 Norepinephrine Bitartrate 4 mg/ Dextrose 250 ml @ 0 mls/hr Q24H IV 05/29/19 19:20 06/28/19 19:19 05/30/19 22:45 Pantoprazole (Protonix) 40 mg EVERY 12 HOURS IVP 05/27/19 10:45 06/26/19 10:44 06/02/19 09:20 Piperacillin Sod/ Tazobactam Sod 3.375 gm/Sodium Chloride 110 ml @ 27.5 mls/hr Q12H IVPB 05/27/19 11:30 06/03/19 11:29 06/01/19 22:13 Sodium Chloride 1,000 ml @ 75 mls/hr [id number] IV 05/27/19 10:45 06/26/19 10:44 06/02/19 00:46 Jimbo Dodd MD Jun 02, 2019 10:50
[2019-06-02] MEDS: Piperacillin/Tazobactam 3.375 GM in NS 110 ML IVPB SCH ×2 (12:04→23:38)
[2019-06-02] MEDS: DAPTOmycin 500 MG in NS 55 ML IV SCH (13:48)
--- NOTE | 2019-06-02 16:02 | Surgery Progress Note ---
Surgery Progress Note Subjective Additional Comments tolerating tube feeds labs noted worsening renal function right IJ temp HD cath placed today Objective Last 24 Hour Vital Signs Date Time Temp Pulse Resp B/P (MAP) Pulse Ox O2 Delivery O2 Flow Rate FiO2 06/02/19 14:00 71 12 100/36 (57) 97 06/02/19 13:25 70 17 60 06/02/19 13:00 68 18 125/44 (71) 95 06/02/19 12:00 60 06/02/19 12:00 Mechanical Ventilator 06/02/19 12:00 98.6 67 21 105/38 (60) 95 06/02/19 12:00 72 06/02/19 11:13 69 17 65 06/02/19 11:00 66 18 90/36 (54) 95 06/02/19 10:00 67 16 110/40 (63) 96 06/02/19 09:10 76 30 65 06/02/19 09:00 75 24 110/35 (60) 96 06/02/19 08:00 Mechanical Ventilator 06/02/19 08:00 78 06/02/19 08:00 63 17 104/36 (58) 97 06/02/19 08:00 60 06/02/19 07:06 64 20 65 06/02/19 07:00 97.8 70 23 95/34 (54) 95 06/02/19 06:00 67 21 94/32 (52) 95 06/02/19 05:30 81 29 65 06/02/19 05:00 90 28 127/44 (71) 95 06/02/19 04:00 Mechanical Ventilator 06/02/19 04:00 80 06/02/19 04:00 98.5 66 4 99/37 (57) 95 06/02/19 04:00 60 06/02/19 03:28 77 26 65 06/02/19 03:15 84 24 122/45 (70) 93 06/02/19 03:00 66 0 107/44 (65) 95 06/02/19 02:00 67 0 103/43 (63) 95 06/02/19 01:00 67 16 107/49 (68) 96 06/02/19 00:30 71 26 65 06/02/19 00:00 Mechanical Ventilator 06/02/19 00:00 97.9 67 21 114/43 (66) 96 06/02/19 00:00 60 06/02/19 00:00 72 06/01/19 23:30 62 10 85/35 (52) 96 06/01/19 23:25 71 18 65 06/01/19 23:00 70 11 116/54 (74) 95 06/01/19 22:30 69 8 109/44 (65) 95 06/01/19 22:00 65 0 101/39 (59) 94 06/01/19 21:30 73 14 125/52 (76) 94 06/01/19 21:09 71 18 65 06/01/19 21:00 68 0 98/41 (60) 94 06/01/19 20:30 77 21 123/97 (106) 94 06/01/19 20:00 98.0 95 16 147/130 (136) 98 06/01/19 20:00 67 06/01/19 20:00 60 06/01/19 20:00 Mechanical Ventilator 06/01/19 19:42 81 29 65 06/01/19 19:30 80 25 122/49 (73) 94 06/01/19 19:20 122/49 06/01/19 18:30 65 12 102/42 (62) 97 06/01/19 18:00 75 25 125/42 (69) 96 06/01/19 17:30 72 26 125/96 (106) 95 06/01/19 17:10 62 19 65 06/01/19 17:00 67 20 99/36 (57) 96 06/01/19 16:30 66 25 99/37 (57) 97 I&O Intake and Output 06/01/19 06/02/19 19:00 07:00 Intake Total 1487.5 ml 1455.0 ml Output Total 181 ml 390 ml Balance 1306.5 ml 1065.0 ml Free Water 170 ml 50 ml IV Total 1077.5 ml 935.0 ml Tube Feeding 240 ml 470 ml Output Urine Total 181 ml 390 ml # Bowel Movements 2 Dressing: saturated, other Wound: other Drains: other Cardiovascular: RSR Respiratory: decreased breath sounds Abdomen: soft, present bowel sounds, non-distended Extremities: no tenderness, no cyanosis, other Laboratory Tests Test 06/02/19 05:10 White Blood Count 9.5 K/UL (4.8-10.8) Red Blood Count 3.05 M/UL (4.70-6.10) L Hemoglobin 9.2 G/DL (14.2-18.0) L Hematocrit 28.1 % (42.0-52.0) L Mean Corpuscular Volume 92 FL (80-99) Mean Corpuscular Hemoglobin 30.1 PG (27.0-31.0) Mean Corpuscular Hemoglobin Concent 32.7 G/DL (32.0-36.0) Red Cell Distribution Width 16.4 % (11.6-14.8) H Platelet Count 208 K/UL (150-450) Mean Platelet Volume 5.1 FL (6.5-10.1) L Neutrophils (%) (Auto) % (45.0-75.0) Lymphocytes (%) (Auto) % (20.0-45.0) Monocytes (%) (Auto) % (1.0-10.0) Eosinophils (%) (Auto) % (0.0-3.0) Basophils (%) (Auto) % (0.0-2.0) Prothrombin Time 11.8 SEC (9.30-11.50) H Prothromb Time International Ratio 1.1 (0.9-1.1) Activated Partial Thromboplast Time 36 SEC (23-33) H Sodium Level 136 MMOL/L (136-145) Potassium Level 3.9 MMOL/L (3.5-5.1) Chloride Level 103 MMOL/L (98-107) Carbon Dioxide Level 16 MMOL/L (21-32) L Anion Gap 17 mmol/L (5-15) H Blood Urea Nitrogen 80 mg/dL (7-18) H Creatinine 5.4 MG/DL (0.55-1.30) H Estimat Glomerular Filtration Rate mL/min (>60) Glucose Level 103 MG/DL (74-106) Uric Acid 7.1 MG/DL (2.6-7.2) Calcium Level 6.8 MG/DL (8.5-10.1) L Phosphorus Level 6.4 MG/DL (2.5-4.9) H Magnesium Level 2.0 MG/DL (1.8-2.4) Total Bilirubin 0.4 MG/DL (0.2-1.0) Aspartate Amino Transf (AST/SGOT) 25 U/L (15-37) Alanine Aminotransferase (ALT/SGPT) 17 U/L (12-78) Alkaline Phosphatase 57 U/L (46-116) C-Reactive Protein, Quantitative 8.1 mg/dL (0.00-0.90) H Pro-B-Type Natriuretic Peptide 6721 pg/mL (0-125) H Total Protein 5.3 G/DL (6.4-8.2) L Albumin 1.7 G/DL (3.4-5.0) L Globulin 3.6 g/dL Albumin/Globulin Ratio 0.5 (1.0-2.7) L Random Vancomycin Level 21.1 ug/mL Plan Problems: (1) Cellulitis of upper extremity Assessment & Plan: 84M with RUE cellulitis, edema, erythema. no drainage. has RUE picc line recommend removal of picc. removed at bedside by myself on 05/18. pressure held, hemostasis noted, dressings applied. cath tip sent for cultures DVT duplex studies with acute thrombus IV Abx as per ID UA pending Cx results keep RUE elevated on pillows okay for diet AM labs anticoagulation off load pressure for dti noted cellulitis and edema improved deteriorated intubated on vent support likely respiratory insufficiency labs ordered wean vent okay for tube feeds via ng - cont as tolerated wean vent am labs HD as per renal now with right IJ Temp HD cath will follow with brad thank you (2) Cellulitis Assessment & Plan: Pt presented on admission with reabsorbing blister lateral R heel. Base of injury indurated with delineated margins(L)4cm x (W)3cm.Non- blanching erythema Sacrum ,R and L buttocks(L)8.5cm x (W)9cm, with a partial thickness pressure injury noted to L buttocks. Base of wound is moist and viable (L)2.3cm x (W)3cm. Area around wound tender when minimally palpated. Pt noted to be wearing splint L foot. Per pt he fractured foot a few weeks ago. Splint removed to assess skin integrity. L heel and malleoli are pink and blanchable.Cavilon Skin Barrier applied to L heel and malleoli and each area covered with Optifoam drsg. Splint reapplied. No other skin concerns noted. unchanged Tx.Plan: Apply Moisture Barrier to Buttocks. Cover with Optifoam drsg. Changee very 3 days and prn. Apply Cavilon Skin Barrier to both heels. Cover each heel with Optifoam drsg. Change every 7 days and prn APM/SCOOBY Mattress overlay. Reposition at least every 2hours or as tolerated. Off-load heels with pillow. Bennett Logan Jun 02, 2019 16:01
--- NOTE | 2019-06-02 17:37 | Diagnostic Imaging Report ---
Indication: Acute renal failure Technique: Procedure performed at bedside. Procedural timeout performed. Total sterile technique, including sterile probe cover and sterile gel, sterile gloves, hand hygiene, hat, mask, sterile gown, large sterile drape, and preparation with 2% chlorhexidine utilized. Local anesthesia with 1% lidocaine. Under real-time ultrasound guidance, puncture right internal jugular vein using 20-gauge micropuncture needle, passage 0.018 guidewire, insertion 4 Nigerien micropuncture introducer, passage 0.035 guidewire, over which was passed serial dilators and then a 13 Nigerien 15 cm triple-lumen temporary dialysis catheter. Guidewire was removed. Catheter ports were aspirated and flushed. The catheter was fixed to the skin. Patient tolerated procedure well. A chest x-ray was obtained, documents catheter tip position at the mid superior vena cava. Comparison: none Findings: As above Impression: Successful bedside placement of right transjugular temporary dialysis catheter, as described.
--- NOTE | 2019-06-02 20:22 | General Progress Note ---
Assessment/Plan Problem List: (1) SOB (shortness of breath) ICD Codes: R06.02 - Shortness of breath SNOMED: 055064365 (2) Cellulitis ICD Codes: L03.90 - Cellulitis, unspecified SNOMED: 616490570 (3) Cellulitis of upper extremity ICD Codes: L03.119 - Cellulitis of unspecified part of limb SNOMED: 496771982 Qualifiers: Qualified Codes: L03.113 - Cellulitis of right upper limb (4) Renal insufficiency ICD Codes: N28.9 - Disorder of kidney and ureter, unspecified SNOMED: 390576835, 263434076 (5) Renal failure (ARF), acute on chronic ICD Codes: N17.9 - Acute kidney failure, unspecified; N18.9 - Chronic kidney disease, unspecified SNOMED: 123484054 (6) Anemia ICD Codes: D64.9 - Anemia, unspecified SNOMED: 920751552 (7) Hypothyroidism ICD Codes: E03.9 - Hypothyroidism, unspecified SNOMED: 89361438 (8) UTI (urinary tract infection) ICD Codes: N39.0 - Urinary tract infection, site not specified SNOMED: 60974277 Status: deteriorating Assessment/Plan: not improving sedated no fever malnutrition lethargic intubated chf exac pna fluid overload Subjective ROS Limited/Unobtainable: Yes Allergies: Coded Allergies: No Known Allergies (Unverified , 05/18/19) Objective Last 24 Hour Vital Signs Date Time Temp Pulse Resp B/P (MAP) Pulse Ox O2 Delivery O2 Flow Rate FiO2 06/02/19 18:47 71 22 60 06/02/19 18:00 80 26 101/46 (64) 100 06/02/19 17:10 75 27 60 06/02/19 17:00 64 26 115/39 (64) 96 06/02/19 16:00 71 06/02/19 16:00 97.0 62 8 107/40 (62) 97 06/02/19 16:00 Mechanical Ventilator 06/02/19 16:00 60 06/02/19 15:00 83 26 129/49 (75) 96 06/02/19 14:00 71 12 100/36 (57) 97 06/02/19 13:25 70 17 60 06/02/19 13:00 68 18 125/44 (71) 95 06/02/19 12:00 60 06/02/19 12:00 Mechanical Ventilator 06/02/19 12:00 98.6 67 21 105/38 (60) 95 06/02/19 12:00 72 06/02/19 11:13 69 17 65 06/02/19 11:00 66 18 90/36 (54) 95 06/02/19 10:00 67 16 110/40 (63) 96 06/02/19 09:10 76 30 65 06/02/19 09:00 75 24 110/35 (60) 96 06/02/19 08:00 Mechanical Ventilator 06/02/19 08:00 78 06/02/19 08:00 63 17 104/36 (58) 97 06/02/19 08:00 60 06/02/19 07:06 64 20 65 06/02/19 07:00 97.8 70 23 95/34 (54) 95 06/02/19 06:00 67 21 94/32 (52) 95 06/02/19 05:30 81 29 65 06/02/19 05:00 90 28 127/44 (71) 95 06/02/19 04:00 Mechanical Ventilator 06/02/19 04:00 80 06/02/19 04:00 98.5 66 4 99/37 (57) 95 06/02/19 04:00 60 06/02/19 03:28 77 26 65 06/02/19 03:15 84 24 122/45 (70) 93 06/02/19 03:00 66 0 107/44 (65) 95 06/02/19 02:00 67 0 103/43 (63) 95 06/02/19 01:00 67 16 107/49 (68) 96 06/02/19 00:30 71 26 65 06/02/19 00:00 Mechanical Ventilator 06/02/19 00:00 97.9 67 21 114/43 (66) 96 06/02/19 00:00 60 06/02/19 00:00 72 06/01/19 23:30 62 10 85/35 (52) 96 06/01/19 23:25 71 18 65 06/01/19 23:00 70 11 116/54 (74) 95 06/01/19 22:30 69 8 109/44 (65) 95 06/01/19 22:00 65 0 101/39 (59) 94 06/01/19 21:30 73 14 125/52 (76) 94 06/01/19 21:09 71 18 65 06/01/19 21:00 68 0 98/41 (60) 94 06/01/19 20:30 77 21 123/97 (106) 94 Intake and Output 06/01/19 06/02/19 19:00 07:00 Intake Total 1487.5 ml 1455.0 ml Output Total 181 ml 390 ml Balance 1306.5 ml 1065.0 ml Free Water 170 ml 50 ml IV Total 1077.5 ml 935.0 ml Tube Feeding 240 ml 470 ml Output Urine Total 181 ml 390 ml # Bowel Movements 2 Laboratory Tests 06/02/19 05:10: White Blood Count 9.5, Red Blood Count 3.05L, Hemoglobin 9.2L, Hematocrit 28.1L , Mean Corpuscular Volume 92, Mean Corpuscular Hemoglobin 30.1, Mean Corpuscular Hemoglobin Concent 32.7, Red Cell Distribution Width 16.4H, Platelet Count 208, Mean Platelet Volume 5.1L, Neutrophils (%) (Auto) , Lymphocytes (%) (Auto) , Monocytes (%) (Auto) , Eosinophils (%) (Auto) , Basophils (%) (Auto) , Prothrombin Time 11.8H, Prothromb Time International Ratio 1.1, Activated Partial Thromboplast Time 36H, Sodium Level 136, Potassium Level 3.9, Chloride Level 103, Carbon Dioxide Level 16L, Anion Gap 17H, Blood Urea Nitrogen 80H, Creatinine 5.4H, Estimat Glomerular Filtration Rate , Glucose Level 103, Uric Acid 7.1, Calcium Level 6.8L, Phosphorus Level 6.4H, Magnesium Level 2.0, Total Bilirubin 0.4, Aspartate Amino Transf (AST/SGOT) 25, Alanine Aminotransferase (ALT/SGPT) 17, Alkaline Phosphatase 57, C-Reactive Protein, Quantitative 8.1H, Pro-B-Type Natriuretic Peptide 6721H, Total Protein 5.3L, Albumin 1.7L, Globulin 3.6, Albumin/Globulin Ratio 0.5L, Random Vancomycin Level 21.1 Height (Feet): 5 Height (Inches): 7.00 Weight (Pounds): 190 Cardiovascular: normal rate Respiratory/Chest: lungs clear Abdomen: soft Joslyn Wiggins MD Jun 02, 2019 20:22
[2019-06-02] MEDS: Dyna-Hex 2% Top Sol 2oz TOPIC SCH (20:59)
--- NOTE | 2019-06-02 22:23 | Cardiology Progress Note ---
Assessment/Plan Assessment/Plan 1. Atrial fibrillation with rapid ventricular response, converted to sinus rhythm, continue amiodarone. 2. Septic shock, 3. Oliguric acute kidney injury, CXR shows B/L pulmonary edema, consider ultrafiltration. 4. Small pericardial effusion with pleural effusion, awaiting HD. Subjective Subjective Sinus rhythm at rate of 82. Objective Last 24 Hour Vital Signs Date Time Temp Pulse Resp B/P (MAP) Pulse Ox O2 Delivery O2 Flow Rate FiO2 06/02/19 21:07 82 19 60 06/02/19 19:20 100/43 06/02/19 18:47 71 22 60 06/02/19 18:00 80 26 101/46 (64) 100 06/02/19 17:10 75 27 60 06/02/19 17:00 64 26 115/39 (64) 96 06/02/19 16:00 71 06/02/19 16:00 97.0 62 8 107/40 (62) 97 06/02/19 16:00 Mechanical Ventilator 06/02/19 16:00 60 06/02/19 15:00 83 26 129/49 (75) 96 06/02/19 14:00 71 12 100/36 (57) 97 06/02/19 13:25 70 17 60 06/02/19 13:00 68 18 125/44 (71) 95 06/02/19 12:00 60 06/02/19 12:00 Mechanical Ventilator 06/02/19 12:00 98.6 67 21 105/38 (60) 95 06/02/19 12:00 72 06/02/19 11:13 69 17 65 06/02/19 11:00 66 18 90/36 (54) 95 06/02/19 10:00 67 16 110/40 (63) 96 06/02/19 09:10 76 30 65 06/02/19 09:00 75 24 110/35 (60) 96 06/02/19 08:00 Mechanical Ventilator 06/02/19 08:00 78 06/02/19 08:00 63 17 104/36 (58) 97 06/02/19 08:00 60 06/02/19 07:06 64 20 65 06/02/19 07:00 97.8 70 23 95/34 (54) 95 06/02/19 06:00 67 21 94/32 (52) 95 06/02/19 05:30 81 29 65 06/02/19 05:00 90 28 127/44 (71) 95 06/02/19 04:00 Mechanical Ventilator 06/02/19 04:00 80 06/02/19 04:00 98.5 66 4 99/37 (57) 95 06/02/19 04:00 60 06/02/19 03:28 77 26 65 06/02/19 03:15 84 24 122/45 (70) 93 06/02/19 03:00 66 0 107/44 (65) 95 06/02/19 02:00 67 0 103/43 (63) 95 06/02/19 01:00 67 16 107/49 (68) 96 06/02/19 00:30 71 26 65 06/02/19 00:00 Mechanical Ventilator 06/02/19 00:00 97.9 67 21 114/43 (66) 96 06/02/19 00:00 60 06/02/19 00:00 72 06/01/19 23:30 62 10 85/35 (52) 96 06/01/19 23:25 71 18 65 06/01/19 23:00 70 11 116/54 (74) 95 06/01/19 22:30 69 8 109/44 (65) 95 Intake and Output 06/01/19 06/02/19 19:00 07:00 Intake Total 1487.5 ml 1455.0 ml Output Total 181 ml 390 ml Balance 1306.5 ml 1065.0 ml Free Water 170 ml 50 ml IV Total 1077.5 ml 935.0 ml Tube Feeding 240 ml 470 ml Output Urine Total 181 ml 390 ml # Bowel Movements 2 2D Echo: EF 65%,Mod AR,Elevated RAP, RVSP 30,Small pericardial eff, pleural effusion Laboratory Tests Test 06/02/19 05:10 White Blood Count 9.5 K/UL (4.8-10.8) Red Blood Count 3.05 M/UL (4.70-6.10) L Hemoglobin 9.2 G/DL (14.2-18.0) L Hematocrit 28.1 % (42.0-52.0) L Mean Corpuscular Volume 92 FL (80-99) Mean Corpuscular Hemoglobin 30.1 PG (27.0-31.0) Mean Corpuscular Hemoglobin Concent 32.7 G/DL (32.0-36.0) Red Cell Distribution Width 16.4 % (11.6-14.8) H Platelet Count 208 K/UL (150-450) Mean Platelet Volume 5.1 FL (6.5-10.1) L Neutrophils (%) (Auto) % (45.0-75.0) Lymphocytes (%) (Auto) % (20.0-45.0) Monocytes (%) (Auto) % (1.0-10.0) Eosinophils (%) (Auto) % (0.0-3.0) Basophils (%) (Auto) % (0.0-2.0) Prothrombin Time 11.8 SEC (9.30-11.50) H Prothromb Time International Ratio 1.1 (0.9-1.1) Activated Partial Thromboplast Time 36 SEC (23-33) H Sodium Level 136 MMOL/L (136-145) Potassium Level 3.9 MMOL/L (3.5-5.1) Chloride Level 103 MMOL/L (98-107) Carbon Dioxide Level 16 MMOL/L (21-32) L Anion Gap 17 mmol/L (5-15) H Blood Urea Nitrogen 80 mg/dL (7-18) H Creatinine 5.4 MG/DL (0.55-1.30) H Estimat Glomerular Filtration Rate mL/min (>60) Glucose Level 103 MG/DL (74-106) Uric Acid 7.1 MG/DL (2.6-7.2) Calcium Level 6.8 MG/DL (8.5-10.1) L Phosphorus Level 6.4 MG/DL (2.5-4.9) H Magnesium Level 2.0 MG/DL (1.8-2.4) Total Bilirubin 0.4 MG/DL (0.2-1.0) Aspartate Amino Transf (AST/SGOT) 25 U/L (15-37) Alanine Aminotransferase (ALT/SGPT) 17 U/L (12-78) Alkaline Phosphatase 57 U/L (46-116) C-Reactive Protein, Quantitative 8.1 mg/dL (0.00-0.90) H Pro-B-Type Natriuretic Peptide 6721 pg/mL (0-125) H Total Protein 5.3 G/DL (6.4-8.2) L Albumin 1.7 G/DL (3.4-5.0) L Globulin 3.6 g/dL Albumin/Globulin Ratio 0.5 (1.0-2.7) L Random Vancomycin Level 21.1 ug/mL Objective HEENT: Atraumatic and normocephalic. Anicteric. Pupils are equal, round, and reactive to light and accommodation. Extraocular muscles intact. NECK: JVP less than 5 cm. No carotid bruit. Carotid upstroke is 2+ bilaterally. CARDIOVASCULAR: Normal S1, S2. Regular rate and rhythm. No murmurs, gallops, or rubs. PMI is at fourth intercostal space in the midclavicular line. LUNGS: Clear to auscultation bilaterally. Positive for wheezing. ABDOMEN: Soft, nontender, and nondistended. No hepatosplenomegaly. Positive bowel sounds. EXTREMITIES: No evidence of edema, clubbing, or cyanosis. Del Garcia MD Jun 02, 2019 22:23
[2019-06-03] VITALS (24 sets, daily range): BP systolic 97–130; BP diastolic 35–60
[2019-06-03] MEDS: Midodrine 10mg tab ORAL SCH (06:00)
--- NOTE | 2019-06-03 07:46 | General Progress Note ---
Assessment/Plan Problem List: (1) Dysphagia ICD Codes: R13.10 - Dysphagia, unspecified SNOMED: 62278447, 580248680 (2) Anemia ICD Codes: D64.9 - Anemia, unspecified SNOMED: 285472960 (3) Hypothyroidism ICD Codes: E03.9 - Hypothyroidism, unspecified SNOMED: 50039488 (4) Thrombus ICD Codes: I82.90 - Acute embolism and thrombosis of unspecified vein SNOMED: 06946577, 59420711, 880283417, 571998223 (5) A-fib ICD Codes: I48.91 - Unspecified atrial fibrillation SNOMED: 15701851 Status: deteriorating Assessment/Plan: intubated in ICU NGTF fu pulm fu labs abx per ID s/p HD poor prognosis PEG if needed Subjective ROS Limited/Unobtainable: No Allergies: Coded Allergies: No Known Allergies (Unverified , 05/18/19) Subjective coded today Objective Last 24 Hour Vital Signs Date Time Temp Pulse Resp B/P (MAP) Pulse Ox O2 Delivery O2 Flow Rate FiO2 06/03/19 07:23 91 21 99 Mechanical Ventilator 60 06/03/19 07:20 63 20 60 06/03/19 07:00 67 17 115/40 (65) 06/03/19 06:00 72 18 130/45 (73) 06/03/19 05:30 82 20 60 06/03/19 05:00 110 26 108/60 (76) 06/03/19 04:00 60 06/03/19 04:00 Mechanical Ventilator 06/03/19 04:00 60 06/03/19 04:00 98.5 59 15 97/42 (60) 99 06/03/19 03:00 67 22 106/50 (68) 98 06/03/19 03:00 64 19 60 06/03/19 02:00 68 28 112/41 (64) 99 06/03/19 01:07 98.5 06/03/19 01:00 98.5 66 20 122/42 (68) 99 06/03/19 00:59 62 19 60 06/03/19 00:00 72 25 109/43 (65) 99 06/03/19 00:00 64 06/03/19 00:00 60 06/03/19 00:00 Mechanical Ventilator 06/02/19 23:13 78 22 60 06/02/19 23:00 79 25 119/52 (74) 98 06/02/19 22:00 72 18 97/30 (52) 99 06/02/19 21:07 82 19 60 06/02/19 21:00 69 17 92/38 (56) 98 06/02/19 20:45 75 19 100/43 (62) 98 06/02/19 20:30 80 25 133/52 (79) 98 06/02/19 20:15 79 24 123/48 (73) 98 06/02/19 20:00 Mechanical Ventilator 06/02/19 20:00 73 06/02/19 20:00 60 06/02/19 20:00 98.4 74 23 125/47 (73) 98 06/02/19 19:20 100/43 06/02/19 19:00 68 17 111/42 (65) 97 06/02/19 18:47 71 22 60 06/02/19 18:00 80 26 101/46 (64) 100 06/02/19 17:10 75 27 60 06/02/19 17:00 64 26 115/39 (64) 96 06/02/19 16:00 71 06/02/19 16:00 97.0 62 8 107/40 (62) 97 06/02/19 16:00 Mechanical Ventilator 06/02/19 16:00 60 06/02/19 15:00 83 26 129/49 (75) 96 06/02/19 14:00 71 12 100/36 (57) 97 06/02/19 13:25 70 17 60 06/02/19 13:00 68 18 125/44 (71) 95 06/02/19 12:00 60 06/02/19 12:00 Mechanical Ventilator 06/02/19 12:00 98.6 67 21 105/38 (60) 95 06/02/19 12:00 72 06/02/19 11:13 69 17 65 06/02/19 11:00 66 18 90/36 (54) 95 06/02/19 10:00 67 16 110/40 (63) 96 06/02/19 09:10 76 30 65 06/02/19 09:00 75 24 110/35 (60) 96 06/02/19 08:00 Mechanical Ventilator 06/02/19 08:00 78 06/02/19 08:00 63 17 104/36 (58) 97 06/02/19 08:00 60 Intake and Output 06/02/19 06/03/19 19:00 07:00 Intake Total 1535.0 ml 1362.5 ml Output Total 93 ml 1060 ml Balance 1442.0 ml 302.5 ml Free Water 120 ml 150 ml IV Total 935.0 ml 732.5 ml Tube Feeding 480 ml 480 ml Output Urine Total 93 ml 60 ml Hemodialysis UF 1000 ml # Bowel Movements 2 3 Height (Feet): 5 Height (Inches): 7.00 Weight (Pounds): 200 General Appearance: lethargic EENT: normal ENT inspection Neck: supple Cardiovascular: normal rate Respiratory/Chest: decreased breath sounds Abdomen: normal bowel sounds, non tender, soft Extremities: non-tender Valentino Lino MD Jun 03, 2019 07:45
--- NOTE | 2019-06-03 08:31 | Critical Care Progress Note ---
Assessment/Plan Assessment/Plan IMPRESSION AND PLAN: 1. Pneumonia. bilateral 2. Cellulitis. 3. History of COPD. 4. Hypertension. 5. Afib with RVR; rate controlled 6. Respiratory failure, acute 7. Hypoxemia, improved 8. Chronic renal failure 9. severe protein sabina malnutrition 10. chronic anemia PLAN vent support still too ill to wean try to taper oxygen monitor imaging for change monitor imaging closely for improvement consider bronch and possibly biopsy skin care support as able in ICU feeds as able and monitor for residuals off load and monitor closely nutrition as able monitor protein levels and prealbumin follow up cxr with noted infiltrates check BNP medications/laboratory data/nursing notes/ICU care reviewed in detail note reviewed and edited care discussed with RN and RT ICU time spent 38 minutes Critical Care - Subjective Interval Events: still hypoxemia still with significant infiltrates on vent ROS Limited/Unobtainable: Yes Condition: critical EKG Rhythm: Sinus Rhythm Residuals: minimal Tube Feeding Tolerated: yes I&O: Intake and Output 06/02/19 06/03/19 19:00 07:00 Intake Total 1535.0 ml 1362.5 ml Output Total 93 ml 1060 ml Balance 1442.0 ml 302.5 ml Free Water 120 ml 150 ml IV Total 935.0 ml 732.5 ml Tube Feeding 480 ml 480 ml Output Urine Total 93 ml 60 ml Hemodialysis UF 1000 ml # Bowel Movements 2 3 Critical Care - Objective ET-Tube: 7.5 ET Position: 25 Last 24 Hour Vital Signs Date Time Temp Pulse Resp B/P (MAP) Pulse Ox O2 Delivery O2 Flow Rate FiO2 06/03/19 08:00 97.5 62 8 117/56 (76) 98 06/03/19 08:00 60 06/03/19 07:23 91 21 99 Mechanical Ventilator 60 06/03/19 07:20 63 20 60 06/03/19 07:00 67 17 115/40 (65) 06/03/19 06:00 72 18 130/45 (73) 06/03/19 05:30 82 20 60 06/03/19 05:00 110 26 108/60 (76) 06/03/19 04:00 60 06/03/19 04:00 Mechanical Ventilator 06/03/19 04:00 60 06/03/19 04:00 98.5 59 15 97/42 (60) 99 06/03/19 03:00 67 22 106/50 (68) 98 06/03/19 03:00 64 19 60 06/03/19 02:00 68 28 112/41 (64) 99 06/03/19 01:07 98.5 06/03/19 01:00 98.5 66 20 122/42 (68) 99 06/03/19 00:59 62 19 60 06/03/19 00:00 72 25 109/43 (65) 99 06/03/19 00:00 64 06/03/19 00:00 60 06/03/19 00:00 Mechanical Ventilator 06/02/19 23:13 78 22 60 06/02/19 23:00 79 25 119/52 (74) 98 06/02/19 22:00 72 18 97/30 (52) 99 06/02/19 21:07 82 19 60 06/02/19 21:00 69 17 92/38 (56) 98 06/02/19 20:45 75 19 100/43 (62) 98 06/02/19 20:30 80 25 133/52 (79) 98 06/02/19 20:15 79 24 123/48 (73) 98 06/02/19 20:00 Mechanical Ventilator 06/02/19 20:00 73 06/02/19 20:00 60 06/02/19 20:00 98.4 74 23 125/47 (73) 98 06/02/19 19:20 100/43 06/02/19 19:00 68 17 111/42 (65) 97 06/02/19 18:47 71 22 60 06/02/19 18:00 80 26 101/46 (64) 100 06/02/19 17:10 75 27 60 06/02/19 17:00 64 26 115/39 (64) 96 06/02/19 16:00 71 06/02/19 16:00 97.0 62 8 107/40 (62) 97 06/02/19 16:00 Mechanical Ventilator 06/02/19 16:00 60 06/02/19 15:00 83 26 129/49 (75) 96 06/02/19 14:00 71 12 100/36 (57) 97 06/02/19 13:25 70 17 60 06/02/19 13:00 68 18 125/44 (71) 95 06/02/19 12:00 60 06/02/19 12:00 Mechanical Ventilator 06/02/19 12:00 98.6 67 21 105/38 (60) 95 06/02/19 12:00 72 06/02/19 11:13 69 17 65 06/02/19 11:00 66 18 90/36 (54) 95 06/02/19 10:00 67 16 110/40 (63) 96 06/02/19 09:10 76 30 65 06/02/19 09:00 75 24 110/35 (60) 96 Labs: Laboratory Tests Test 06/03/19 08:00 White Blood Count Pending Red Blood Count Pending Hemoglobin Pending Hematocrit Pending Mean Corpuscular Volume Pending Mean Corpuscular Hemoglobin Pending Mean Corpuscular Hemoglobin Concent Pending Red Cell Distribution Width Pending Platelet Count Pending Mean Platelet Volume Pending Neutrophils (%) (Auto) Pending Lymphocytes (%) (Auto) Pending Monocytes (%) (Auto) Pending Eosinophils (%) (Auto) Pending Basophils (%) (Auto) Pending Sodium Level Pending Potassium Level Pending Chloride Level Pending Carbon Dioxide Level Pending Blood Urea Nitrogen Pending Creatinine Pending Estimat Glomerular Filtration Rate Pending Glucose Level Pending Uric Acid Pending Calcium Level Pending Phosphorus Level Pending Magnesium Level Pending Total Bilirubin Pending Aspartate Amino Transf (AST/SGOT) Pending Alanine Aminotransferase (ALT/SGPT) Pending Alkaline Phosphatase Pending C-Reactive Protein, Quantitative Pending Pro-B-Type Natriuretic Peptide Pending Total Protein Pending Albumin Pending Globulin Pending Objective: WDWN NAD orally intubated and on vent as prior reduced breath sounds bilaterally with occ rhonchi [id number] without MRG NABS nontender no HSM; feeding tube in place no CC mild edema overall without change nonfocal reviewed and edited Accucheck: 130 Korey Mtz MD Jun 03, 2019 08:31
[2019-06-03 08:38] LABS: HEMATOCRIT 22.6 % (42.0-52.0); HEMOGLOBIN 7.5 G/DL (14.2-18.0); MEAN CORPUSCULAR VOLUME 91 FL (80-99); PLATELET COUNT 132 K/UL (150-450); RED BLOOD COUNT 2.48 M/UL (4.70-6.10); WHITE BLOOD COUNT 6.3 K/UL (4.8-10.8)
[2019-06-03 08:53] LABS: ALANINE AMINOTRANSFERASE 11 U/L (12-78); ALBUMIN 1.3 G/DL (3.4-5.0); ALBUMIN/GLOBULIN RATIO 0.4 (1.0-2.7); ALKALINE PHOSPHATASE 53 U/L (46-116); ANION GAP 8 mmol/L (5-15); ASPARTATE AMINO TRANSFERASE 20 U/L (15-37); BILIRUBIN,TOTAL 0.2 MG/DL (0.2-1.0); BLOOD UREA NITROGEN 59 mg/dL (7-18); CALCIUM 6.6 MG/DL (8.5-10.1); CARBON DIOXIDE 23 MMOL/L (21-32); CHLORIDE 104 MMOL/L (98-107); CREATININE 4.5 MG/DL (0.55-1.30); PHOSPHORUS 4.7 MG/DL (2.5-4.9); POTASSIUM 3.4 MMOL/L (3.5-5.1); SODIUM 135 MMOL/L (136-145)
[2019-06-03] MEDS: Docusate 100mg/10ml Liq NG SCH ×3 (09:00→17:39)
[2019-06-03] MEDS: Amiodarone 200mg tab GT SCH (09:37)
[2019-06-03] MEDS: Pantoprazole Inj IVP SCH ×2 (09:37→20:34)
--- NOTE | 2019-06-03 10:33 | Infectious Diseases Prog Note ---
Assessment/Plan Assessment/Plan 84 yo male with PMHx of HTN who was [facility]c [facility] infection. Swelling around PICC line Minimal to no erythema and no purulent drainage Not likely to be infected Blood Cx 05/18/19 - NGTD PICC Tip Cx 05/18/19 - NGTD PICC line removed 05/18/19 No Leukocytosis No fever OM - Let foot On Vancomycin at nursing End date early May PNA on 8L NC CXR - Some LLL Atelectasis vs PNA, Nodules CT 05/20/19 - Bilateral upper lobe infiltrates worse on the right. Consider pneumonia. Bilateral pleural effusions moderate in size Sp Cx Marily HTN PLAN - Continue Daptomycin for OM End date per [facility] MD - Continue Zosyn #8/10 for probable PNA - 05/28/19 SP Vancomycin per pharmacy - Stopped for increasing Cr - 05/27/19 SP Levofloxacin #5 - Get OSH records for OM - Monitor CBC and Temps Thank you for this consult. [facility] will continue to follow the patient with you during this hospitalization. Subjective Allergies: Coded Allergies: No Known Allergies (Unverified , 05/18/19) Subjective On Vent 50% O2 Afebrile No Leukocytosis Objective Vital Signs Last 24 Hour Vital Signs Date Time Temp Pulse Resp B/P (MAP) Pulse Ox O2 Delivery O2 Flow Rate FiO2 06/03/19 08:44 57 18 50 06/03/19 08:38 50 06/03/19 08:00 97.5 62 8 117/56 (76) 98 06/03/19 08:00 60 06/03/19 07:23 91 21 99 Mechanical Ventilator 60 06/03/19 07:20 63 20 60 06/03/19 07:00 67 17 115/40 (65) 06/03/19 06:00 72 18 130/45 (73) 06/03/19 05:30 82 20 60 06/03/19 05:00 110 26 108/60 (76) 06/03/19 04:00 60 06/03/19 04:00 Mechanical Ventilator 06/03/19 04:00 60 06/03/19 04:00 98.5 59 15 97/42 (60) 99 06/03/19 03:00 67 22 106/50 (68) 98 06/03/19 03:00 64 19 60 06/03/19 02:00 68 28 112/41 (64) 99 06/03/19 01:07 98.5 06/03/19 01:00 98.5 66 20 122/42 (68) 99 06/03/19 00:59 62 19 60 06/03/19 00:00 72 25 109/43 (65) 99 06/03/19 00:00 64 06/03/19 00:00 60 06/03/19 00:00 Mechanical Ventilator 06/02/19 23:13 78 22 60 06/02/19 23:00 79 25 119/52 (74) 98 06/02/19 22:00 72 18 97/30 (52) 99 06/02/19 21:07 82 19 60 06/02/19 21:00 69 17 92/38 (56) 98 06/02/19 20:45 75 19 100/43 (62) 98 06/02/19 20:30 80 25 133/52 (79) 98 06/02/19 20:15 79 24 123/48 (73) 98 06/02/19 20:00 Mechanical Ventilator 06/02/19 20:00 73 06/02/19 20:00 60 06/02/19 20:00 98.4 74 23 125/47 (73) 98 06/02/19 19:20 100/43 06/02/19 19:00 68 17 111/42 (65) 97 06/02/19 18:47 71 22 60 06/02/19 18:00 80 26 101/46 (64) 100 06/02/19 17:10 75 27 60 06/02/19 17:00 64 26 115/39 (64) 96 06/02/19 16:00 71 06/02/19 16:00 97.0 62 8 107/40 (62) 97 06/02/19 16:00 Mechanical Ventilator 06/02/19 16:00 60 06/02/19 15:00 83 26 129/49 (75) 96 06/02/19 14:00 71 12 100/36 (57) 97 06/02/19 13:25 70 17 60 06/02/19 13:00 68 18 125/44 (71) 95 06/02/19 12:00 60 06/02/19 12:00 Mechanical Ventilator 06/02/19 12:00 98.6 67 21 105/38 (60) 95 06/02/19 12:00 72 06/02/19 11:13 69 17 65 06/02/19 11:00 66 18 90/36 (54) 95 Height (Feet): 5 Height (Inches): 7.00 Weight (Pounds): 200 Objective Gen: Intubatd on vent HEENT: NCAT, MMM, EOMI LUNGS: Coarse B/L, Tight and wheezy CARDS: RRR, S1, S2 ABD: Soft, NT, ND Laboratory Tests Test 06/03/19 08:00 White Blood Count 6.3 K/UL (4.8-10.8) Red Blood Count 2.48 M/UL (4.70-6.10) L Hemoglobin 7.5 G/DL (14.2-18.0) L Hematocrit 22.6 % (42.0-52.0) L Mean Corpuscular Volume 91 FL (80-99) Mean Corpuscular Hemoglobin 30.4 PG (27.0-31.0) Mean Corpuscular Hemoglobin Concent 33.4 G/DL (32.0-36.0) Red Cell Distribution Width 16.0 % (11.6-14.8) H Platelet Count 132 K/UL (150-450) L Mean Platelet Volume 5.0 FL (6.5-10.1) L Neutrophils (%) (Auto) % (45.0-75.0) Lymphocytes (%) (Auto) % (20.0-45.0) Monocytes (%) (Auto) % (1.0-10.0) Eosinophils (%) (Auto) % (0.0-3.0) Basophils (%) (Auto) % (0.0-2.0) Differential Total Cells Counted 100 Neutrophils % (Manual) 92 % (45-75) H Lymphocytes % (Manual) 5 % (20-45) L Monocytes % (Manual) 3 % (1-10) Eosinophils % (Manual) 0 % (0-3) Basophils % (Manual) 0 % (0-2) Band Neutrophils 0 % (0-8) Platelet Estimate Decreased L Platelet Morphology Normal Anisocytosis 1+ Sodium Level 135 MMOL/L (136-145) L Potassium Level 3.4 MMOL/L (3.5-5.1) L Chloride Level 104 MMOL/L (98-107) Carbon Dioxide Level 23 MMOL/L (21-32) Anion Gap 8 mmol/L (5-15) Blood Urea Nitrogen 59 mg/dL (7-18) H Creatinine 4.5 MG/DL (0.55-1.30) H Estimat Glomerular Filtration Rate mL/min (>60) Glucose Level 146 MG/DL (74-106) H Uric Acid 5.3 MG/DL (2.6-7.2) Calcium Level 6.6 MG/DL (8.5-10.1) L Phosphorus Level 4.7 MG/DL (2.5-4.9) Magnesium Level 1.9 MG/DL (1.8-2.4) Total Bilirubin 0.2 MG/DL (0.2-1.0) Aspartate Amino Transf (AST/SGOT) 20 U/L (15-37) Alanine Aminotransferase (ALT/SGPT) 11 U/L (12-78) L Alkaline Phosphatase 53 U/L (46-116) C-Reactive Protein, Quantitative 6.0 mg/dL (0.00-0.90) H Pro-B-Type Natriuretic Peptide 7239 pg/mL (0-125) H Total Protein 4.6 G/DL (6.4-8.2) L Albumin 1.3 G/DL (3.4-5.0) L Globulin 3.3 g/dL Albumin/Globulin Ratio 0.4 (1.0-2.7) L Current Medications Medications (Trade) Dose Ordered Sig/Phillip Route PRN Reason Start Time Stop Time Status Last Admin Dose Admin Acetaminophen (Tylenol) 500 mg Q4H PRN GT Mild Pain/Temp > 100.5 05/27/19 07:45 06/19/19 20:29 05/28/19 15:39 Amiodarone HCl (Cordarone) 200 mg DAILY GT 06/03/19 09:00 07/03/19 08:59 06/03/19 09:37 Chlorhexidine Gluconate (Reina-Hex 2%) 1 applic DAILY@2000 TOPIC 05/27/19 20:00 06/26/19 19:59 06/02/19 20:59 Daptomycin 500 mg/ Sodium Chloride 55 ml @ 100 mls/hr Q48H IV 05/29/19 13:00 1/9/20 12:59 06/02/19 13:48 Docusate Sodium (Colace) 100 mg TID NG 05/27/19 09:00 06/20/19 08:59 06/02/19 09:20 Midodrine (Pro-Amatine) 10 mg Q8HR GT 06/03/19 14:00 07/03/19 13:59 Norepinephrine Bitartrate 4 mg/ Dextrose 250 ml @ 0 mls/hr Q24H IV 05/29/19 19:20 06/28/19 19:19 05/30/19 22:45 Pantoprazole (Protonix) 40 mg EVERY 12 HOURS IVP 05/27/19 10:45 06/26/19 10:44 06/03/19 09:37 Piperacillin Sod/ Tazobactam Sod 2.25 gm/Dextrose 55 ml @ 110 mls/hr Q8HR@0400,1200,2000 IV 06/03/19 12:00 06/10/19 11:59 Sodium Chloride 1,000 ml @ 75 mls/hr [id number] IV 05/27/19 10:45 06/26/19 10:44 06/03/19 02:33 Jimbo Dodd MD Jun 03, 2019 10:33
--- NOTE | 2019-06-03 11:19 | Nephrology Progress Note ---
Assessment/Plan Problem List: (1) Renal failure (ARF), acute on chronic Assessment: Cr rising (2) Cellulitis of upper extremity (3) A-fib (4) Pneumonia (5) UTI (urinary tract infection) (6) Anemia Assessment: worsened (7) Hypothyroidism Assessment - KIMO on CKD - Urinary tract infection. - Anemia- - Dehydration. - Cellulitis of Upper extremity - HTN Plan dialysis done 06/02 - repeat 06/04 Transfuse one unit today PRBcs in ICU- intubated BP meds and Mind altering meds discontinued On midodrine check vanco levels - hold vanco doses previously: Per cardiology Anemia kumari- Avoid Nephrotoxics Per ID Allow CHANDA inhibitor to continue as long as renal function does not worsen. PICC line has been removed. CXR: Increased right pleural effusion and similar left pleural effusion. Increased interstitial and hazy opacities throughout the lungs. Subjective ROS Limited/Unobtainable: Yes Objective Objective Last 24 Hour Vital Signs Date Time Temp Pulse Resp B/P (MAP) Pulse Ox O2 Delivery O2 Flow Rate FiO2 06/03/19 11:00 61 22 107/47 (67) 93 06/03/19 10:37 72 29 50 06/03/19 10:00 68 16 115/49 (71) 95 06/03/19 09:00 67 17 115/40 (65) 94 06/03/19 09:00 65 16 122/47 (72) 95 06/03/19 08:44 57 18 50 06/03/19 08:38 50 06/03/19 08:00 62 06/03/19 08:00 Mechanical Ventilator 06/03/19 08:00 97.5 62 18 117/56 (76) 98 06/03/19 08:00 60 06/03/19 07:23 91 21 99 Mechanical Ventilator 60 06/03/19 07:20 63 20 60 06/03/19 07:00 67 17 115/40 (65) 06/03/19 06:00 72 18 130/45 (73) 06/03/19 05:30 82 20 60 06/03/19 05:00 110 26 108/60 (76) 06/03/19 04:00 60 06/03/19 04:00 Mechanical Ventilator 06/03/19 04:00 60 06/03/19 04:00 98.5 59 15 97/42 (60) 99 06/03/19 03:00 67 22 106/50 (68) 98 06/03/19 03:00 64 19 60 06/03/19 02:00 68 28 112/41 (64) 99 06/03/19 01:07 98.5 06/03/19 01:00 98.5 66 20 122/42 (68) 99 06/03/19 00:59 62 19 60 06/03/19 00:00 72 25 109/43 (65) 99 06/03/19 00:00 64 06/03/19 00:00 60 06/03/19 00:00 Mechanical Ventilator 06/02/19 23:13 78 22 60 06/02/19 23:00 79 25 119/52 (74) 98 06/02/19 22:00 72 18 97/30 (52) 99 06/02/19 21:07 82 19 60 06/02/19 21:00 69 17 92/38 (56) 98 06/02/19 20:45 75 19 100/43 (62) 98 06/02/19 20:30 80 25 133/52 (79) 98 06/02/19 20:15 79 24 123/48 (73) 98 06/02/19 20:00 Mechanical Ventilator 06/02/19 20:00 73 06/02/19 20:00 60 06/02/19 20:00 98.4 74 23 125/47 (73) 98 06/02/19 19:20 100/43 06/02/19 19:00 68 17 111/42 (65) 97 06/02/19 18:47 71 22 60 06/02/19 18:00 80 26 101/46 (64) 100 06/02/19 17:10 75 27 60 06/02/19 17:00 64 26 115/39 (64) 96 06/02/19 16:00 71 06/02/19 16:00 97.0 62 8 107/40 (62) 97 06/02/19 16:00 Mechanical Ventilator 06/02/19 16:00 60 06/02/19 15:00 83 26 129/49 (75) 96 06/02/19 14:00 71 12 100/36 (57) 97 06/02/19 13:25 70 17 60 06/02/19 13:00 68 18 125/44 (71) 95 06/02/19 12:00 60 06/02/19 12:00 Mechanical Ventilator 06/02/19 12:00 98.6 67 21 105/38 (60) 95 06/02/19 12:00 72 Intake and Output 06/02/19 06/03/19 19:00 07:00 Intake Total 1535.0 ml 1362.5 ml Output Total 93 ml 1060 ml Balance 1442.0 ml 302.5 ml Free Water 120 ml 150 ml IV Total 935.0 ml 732.5 ml Tube Feeding 480 ml 480 ml Output Urine Total 93 ml 60 ml Hemodialysis UF 1000 ml # Bowel Movements 2 3 Current Medications Medications (Trade) Dose Ordered Sig/Phillip Route PRN Reason Start Time Stop Time Status Last Admin Dose Admin Acetaminophen (Tylenol) 500 mg Q4H PRN GT Mild Pain/Temp > 100.5 05/27/19 07:45 06/19/19 20:29 05/28/19 15:39 Amiodarone HCl (Cordarone) 200 mg DAILY GT 06/03/19 09:00 07/03/19 08:59 06/03/19 09:37 Chlorhexidine Gluconate (Reina-Hex 2%) 1 applic DAILY@2000 TOPIC 05/27/19 20:00 06/26/19 19:59 06/02/19 20:59 Daptomycin 500 mg/ Sodium Chloride 55 ml @ 100 mls/hr Q48H IV 05/29/19 13:00 06/05/19 12:59 06/02/19 13:48 Docusate Sodium (Colace) 100 mg TID NG 05/27/19 09:00 06/20/19 08:59 06/02/19 09:20 Midodrine (Pro-Amatine) 10 mg Q8HR GT 06/03/19 14:00 07/03/19 13:59 Norepinephrine Bitartrate 4 mg/ Dextrose 250 ml @ 0 mls/hr Q24H IV 05/29/19 19:20 06/28/19 19:19 05/30/19 22:45 Pantoprazole (Protonix) 40 mg EVERY 12 HOURS IVP 05/27/19 10:45 06/26/19 10:44 06/03/19 09:37 Piperacillin Sod/ Tazobactam Sod 2.25 gm/Dextrose 55 ml @ 110 mls/hr Q8HR@0400,1200,2000 IV 06/03/19 12:00 06/10/19 11:59 Sodium Chloride 1,000 ml @ 75 mls/hr [id number] IV 05/27/19 10:45 06/26/19 10:44 06/03/19 02:33 Laboratory Tests 06/03/19 08:00: White Blood Count 6.3, Red Blood Count 2.48L, Hemoglobin 7.5L, Hematocrit 22.6L , Mean Corpuscular Volume 91, Mean Corpuscular Hemoglobin 30.4, Mean Corpuscular Hemoglobin Concent 33.4, Red Cell Distribution Width 16.0H, Platelet Count 132L, Mean Platelet Volume 5.0L, Neutrophils (%) (Auto) , Lymphocytes (%) (Auto) , Monocytes (%) (Auto) , Eosinophils (%) (Auto) , Basophils (%) (Auto) , Differential Total Cells Counted 100, Neutrophils % ( Manual) 92H, Lymphocytes % (Manual) 5L, Monocytes % (Manual) 3, Eosinophils % ( Manual) 0, Basophils % (Manual) 0, Band Neutrophils 0, Platelet Estimate DecreasedL, Platelet Morphology Normal, Anisocytosis 1+, Sodium Level 135L, Potassium Level 3.4L, Chloride Level 104, Carbon Dioxide Level 23, Anion Gap 8, Blood Urea Nitrogen 59H, Creatinine 4.5H, Estimat Glomerular Filtration Rate , Glucose Level 146H, Uric Acid 5.3, Calcium Level 6.6L, Phosphorus Level 4.7, Magnesium Level 1.9, Total Bilirubin 0.2, Aspartate Amino Transf (AST/SGOT) 20, Alanine Aminotransferase (ALT/SGPT) 11L, Alkaline Phosphatase 53, C-Reactive Protein, Quantitative 6.0H, Pro-B-Type Natriuretic Peptide 7239H, Total Protein 4.6L, Albumin 1.3L, Globulin 3.3, Albumin/Globulin Ratio 0.4L Height (Feet): 5 Height (Inches): 7.00 Weight (Pounds): 200 General Appearance: no apparent distress EENT: other - vented Cardiovascular: normal rate Respiratory/Chest: decreased breath sounds Abdomen: distended Reinier Mera MD Jun 03, 2019 11:18
[2019-06-03] MEDS: Zosyn 2.25 gm in D5W 55ml IV SCH ×2 (11:40→20:32)
[2019-06-03] MEDS: D5NS 1,000 ML IV SCH (11:41)
[2019-06-03] MEDS: Midodrine 10mg tab GT SCH ×2 (13:52→21:58)
--- NOTE | 2019-06-03 15:23 | Surgery Progress Note ---
Surgery Progress Note Subjective Additional Comments No acute events. Labs noted imaging reviewed. Exam stable. More awake and responsive today. Objective Last 24 Hour Vital Signs Date Time Temp Pulse Resp B/P (MAP) Pulse Ox O2 Delivery O2 Flow Rate FiO2 06/03/19 15:00 74 27 118/45 (69) 94 06/03/19 14:40 40 06/03/19 14:39 66 25 40 06/03/19 14:00 98.1 68 20 115/41 (65) 93 06/03/19 13:00 74 27 118/45 (69) 94 06/03/19 12:51 58 29 50 06/03/19 12:00 57 22 113/43 (66) 94 06/03/19 12:00 Mechanical Ventilator 06/03/19 12:00 57 06/03/19 11:00 61 22 107/47 (67) 93 06/03/19 10:37 72 29 50 06/03/19 10:00 68 16 115/49 (71) 95 06/03/19 09:00 67 17 115/40 (65) 94 06/03/19 09:00 65 16 122/47 (72) 95 06/03/19 08:44 57 18 50 06/03/19 08:38 50 06/03/19 08:00 62 06/03/19 08:00 Mechanical Ventilator 06/03/19 08:00 97.5 62 18 117/56 (76) 98 06/03/19 08:00 60 06/03/19 07:23 91 21 99 Mechanical Ventilator 60 06/03/19 07:20 63 20 60 06/03/19 07:00 67 17 115/40 (65) 06/03/19 06:00 72 18 130/45 (73) 06/03/19 05:30 82 20 60 06/03/19 05:00 110 26 108/60 (76) 06/03/19 04:00 60 06/03/19 04:00 Mechanical Ventilator 06/03/19 04:00 60 06/03/19 04:00 98.5 59 15 97/42 (60) 99 06/03/19 03:00 67 22 106/50 (68) 98 06/03/19 03:00 64 19 60 06/03/19 02:00 68 28 112/41 (64) 99 06/03/19 01:07 98.5 06/03/19 01:00 98.5 66 20 122/42 (68) 99 06/03/19 00:59 62 19 60 06/03/19 00:00 72 25 109/43 (65) 99 06/03/19 00:00 64 06/03/19 00:00 60 06/03/19 00:00 Mechanical Ventilator 06/02/19 23:13 78 22 60 06/02/19 23:00 79 25 119/52 (74) 98 06/02/19 22:00 72 18 97/30 (52) 99 06/02/19 21:07 82 19 60 06/02/19 21:00 69 17 92/38 (56) 98 06/02/19 20:45 75 19 100/43 (62) 98 06/02/19 20:30 80 25 133/52 (79) 98 06/02/19 20:15 79 24 123/48 (73) 98 06/02/19 20:00 Mechanical Ventilator 06/02/19 20:00 73 06/02/19 20:00 60 06/02/19 20:00 98.4 74 23 125/47 (73) 98 06/02/19 19:20 100/43 06/02/19 19:00 68 17 111/42 (65) 97 06/02/19 18:47 71 22 60 06/02/19 18:00 80 26 101/46 (64) 100 06/02/19 17:10 75 27 60 06/02/19 17:00 64 26 115/39 (64) 96 06/02/19 16:00 71 06/02/19 16:00 97.0 62 8 107/40 (62) 97 06/02/19 16:00 Mechanical Ventilator 06/02/19 16:00 60 I&O Intake and Output 06/02/19 06/03/19 19:00 07:00 Intake Total 1535.0 ml 1362.5 ml Output Total 93 ml 1060 ml Balance 1442.0 ml 302.5 ml Free Water 120 ml 150 ml IV Total 935.0 ml 732.5 ml Tube Feeding 480 ml 480 ml Output Urine Total 93 ml 60 ml Hemodialysis UF 1000 ml # Bowel Movements 2 3 Dressing: saturated Cardiovascular: RSR Respiratory: clear Abdomen: soft, non-tender, present bowel sounds Extremities: no tenderness, no cyanosis, other Laboratory Tests Test 06/03/19 08:00 White Blood Count 6.3 K/UL (4.8-10.8) Red Blood Count 2.48 M/UL (4.70-6.10) L Hemoglobin 7.5 G/DL (14.2-18.0) L Hematocrit 22.6 % (42.0-52.0) L Mean Corpuscular Volume 91 FL (80-99) Mean Corpuscular Hemoglobin 30.4 PG (27.0-31.0) Mean Corpuscular Hemoglobin Concent 33.4 G/DL (32.0-36.0) Red Cell Distribution Width 16.0 % (11.6-14.8) H Platelet Count 132 K/UL (150-450) L Mean Platelet Volume 5.0 FL (6.5-10.1) L Neutrophils (%) (Auto) % (45.0-75.0) Lymphocytes (%) (Auto) % (20.0-45.0) Monocytes (%) (Auto) % (1.0-10.0) Eosinophils (%) (Auto) % (0.0-3.0) Basophils (%) (Auto) % (0.0-2.0) Differential Total Cells Counted 100 Neutrophils % (Manual) 92 % (45-75) H Lymphocytes % (Manual) 5 % (20-45) L Monocytes % (Manual) 3 % (1-10) Eosinophils % (Manual) 0 % (0-3) Basophils % (Manual) 0 % (0-2) Band Neutrophils 0 % (0-8) Platelet Estimate Decreased L Platelet Morphology Normal Anisocytosis 1+ Sodium Level 135 MMOL/L (136-145) L Potassium Level 3.4 MMOL/L (3.5-5.1) L Chloride Level 104 MMOL/L (98-107) Carbon Dioxide Level 23 MMOL/L (21-32) Anion Gap 8 mmol/L (5-15) Blood Urea Nitrogen 59 mg/dL (7-18) H Creatinine 4.5 MG/DL (0.55-1.30) H Estimat Glomerular Filtration Rate mL/min (>60) Glucose Level 146 MG/DL (74-106) H Uric Acid 5.3 MG/DL (2.6-7.2) Calcium Level 6.6 MG/DL (8.5-10.1) L Phosphorus Level 4.7 MG/DL (2.5-4.9) Magnesium Level 1.9 MG/DL (1.8-2.4) Total Bilirubin 0.2 MG/DL (0.2-1.0) Aspartate Amino Transf (AST/SGOT) 20 U/L (15-37) Alanine Aminotransferase (ALT/SGPT) 11 U/L (12-78) L Alkaline Phosphatase 53 U/L (46-116) C-Reactive Protein, Quantitative 6.0 mg/dL (0.00-0.90) H Pro-B-Type Natriuretic Peptide 7239 pg/mL (0-125) H Total Protein 4.6 G/DL (6.4-8.2) L Albumin 1.3 G/DL (3.4-5.0) L Globulin 3.3 g/dL Albumin/Globulin Ratio 0.4 (1.0-2.7) L Plan Problems: (1) Cellulitis of upper extremity Assessment & Plan: 84M with RUE cellulitis, edema, erythema. no drainage. has RUE picc line recommend removal of picc. removed at bedside by myself on 05/18. pressure held, hemostasis noted, dressings applied. cath tip sent for cultures DVT duplex studies with acute thrombus IV Abx as per ID UA pending Cx results keep RUE elevated on pillows okay for diet AM labs anticoagulation off load pressure for dti noted cellulitis and edema improved deteriorated intubated on vent support likely respiratory insufficiency labs ordered wean vent okay for tube feeds via ng - cont as tolerated wean vent am labs HD as per renal now with right IJ Temp HD cath will follow with recs thank you (2) Cellulitis Assessment & Plan: Pt presented on admission with reabsorbing blister lateral R heel. Base of injury indurated with delineated margins(L)4cm x (W)3cm.Non- blanching erythema Sacrum ,R and L buttocks(L)8.5cm x (W)9cm, with a partial thickness pressure injury noted to L buttocks. Base of wound is moist and viable (L)2.3cm x (W)3cm. Area around wound tender when minimally palpated. Pt noted to be wearing splint L foot. Per pt he fractured foot a few weeks ago. Splint removed to assess skin integrity. L heel and malleoli are pink and blanchable.Cavilon Skin Barrier applied to L heel and malleoli and each area covered with Optifoam drsg. Splint reapplied. No other skin concerns noted. unchanged Tx.Plan: Apply Moisture Barrier to Buttocks. Cover with Optifoam drsg. Changee very 3 days and prn. Apply Cavilon Skin Barrier to both heels. Cover each heel with Optifoam drsg. Change every 7 days and prn APM/SCOOBY Mattress overlay. Reposition at least every 2hours or as tolerated. Off-load heels with pillow. Bennett Logan Jun 03, 2019 15:23
--- NOTE | 2019-06-03 17:48 | Hematology/Onc Progress Note ---
Assessment/Plan Assessment/Plan # Anemia of chronic disease due to underlying chronic medical issues, multifactorial v Gi bleed --> Anemia workup has been reviewed, rule out gi bleed --> No evidence of hemolysis is noted, peripheral smear has been reviewed. --> Hgb goal >7. Transfuse prn. --> Epogen or iron at this time is not particularly indicated --> Medications have been reviewed --> low threshold for gi evaluation in case has occult + --> hgb trend: 9.3-->9.7-->8.1-->7.6-->8-->9.4-->9.2->7.5 --> transf 05/28/19 with 1 unit prbc, 1 unit on 06/03 --> transfusion is a emergency, no family, no poa, is okay to transfuse # Right upper arm extremity axillary vein dvt --> agree to continue eliquis ONCE bleeding resolved --> continue for total of minimum of 3 months --> rescan arm in 3 mo # Cellulitis of upper extremity, likely picc line infection --> as per id on ax --> picc off --> levoflox/vanc-->zosyn/vanc--> zosyn-->dapto/zosyn # Renal insufficiency --> per Dr. Mera # Pneumonia --> abx per id # Dehydration. --> goal of euvolemia # Paroxysmal Atrial fibrillation with rapid ventricular response was on amiodarone gtt, now in sinus rhythm. --> per cards On PO amiodarone 200 bid, Lopressor 25 bid # Dysphagia with ng tube # Dvt ppx eliquis--> now on hold The timing of this note does not necessarily reflect the time of the patient was seen. Greatly appreciate consultation. Subjective Constitutional: Denies: no symptoms, chills, fever, malaise, weakness, other HEENT: Denies: no symptoms, eye pain, blurred vision, tearing, double vision, ear pain, ear discharge, nose pain, nose congestion, throat pain, throat swelling, mouth pain, mouth swelling, other Cardiovascular: Denies: no symptoms, chest pain, edema, irregular heart rate, lightheadedness, palpitations, syncope, other Respiratory: Denies: no symptoms, cough, shortness of breath, SOB with excertion, SOB at rest, sputum, wheezing, other Gastrointestinal/Abdominal: Denies: no symptoms, abdomen distended, abdominal pain, black stools, tarry stools, blood in stool, constipated, diarrhea, difficulty swallowing, nausea, poor appetite, poor fluid intake, rectal bleeding , vomiting, other Genitourinary: Denies: no symptoms, burning, discharge, frequency, flank pain, hematuria, incontinence, pain, urgency, other Neurologic/Psychiatric: Denies: no symptoms, anxiety, depressed, emotional problems, headache, numbness, paresthesia, pre-existing deficit, seizure, tingling, tremors, weakness, other Endocrine: Denies: no symptoms, excessive sweating, flushing, intolerance to cold, intolerance to heat, increased hunger, increased thirst, increased urine, unexplained weight gain, unexplained weight loss, other Hematologic/Lymphatic: Denies: no symptoms, anemia, easy bleeding, easy bruising, adenopathy, other Allergies: Coded Allergies: No Known Allergies (Unverified , 05/18/19) Subjective 05/24: awake and alert, v mask, labs reviewed, apixaban 05/25: as per gi, ngt and eliquis tolerated 05/26: pending clearance but still with ng and nonrebreather 05/27: hypoxic yesterday, deteriorated, coded, now intubated, icu, labs noted 05/28: icu, levophed gtt, hgb 7.6, repeat cbc 05/29: remains in the icu, given prbc last night, no bleeding 05/30: no events, no bleeding, ++ fredo and on pressor 05/31: intubated, bp better on pressor, no bleeding, coag ordered 06/02: reamins ill appearing, on vent, labs noted, on vent, poorly responsive 06/03: no events, no bleeding, labs noted, dw surgery, and Rn, monitoring plt Objective Objective Current Medications Medications (Trade) Dose Ordered Sig/Phillip Route PRN Reason Start Time Stop Time Status Last Admin Dose Admin Acetaminophen (Tylenol) 500 mg Q4H PRN GT Mild Pain/Temp > 100.5 05/27/19 07:45 06/19/19 20:29 05/28/19 15:39 Amiodarone HCl (Cordarone) 200 mg DAILY GT 06/03/19 09:00 07/03/19 08:59 06/03/19 09:37 Chlorhexidine Gluconate (Reina-Hex 2%) 1 applic DAILY@1999 TOPIC 05/27/19 20:00 06/26/19 19:59 06/02/19 20:59 Daptomycin 500 mg/ Sodium Chloride 55 ml @ 100 mls/hr Q48H IV 05/29/19 13:00 06/05/19 12:59 06/02/19 13:48 Dextrose/Sodium Chloride 1,000 ml @ 40 mls/hr Q24H IV 06/03/19 11:30 07/03/19 11:29 06/03/19 11:41 Docusate Sodium (Colace) 100 mg TID NG 05/27/19 09:00 06/20/19 08:59 06/02/19 09:20 Midodrine (Pro-Amatine) 10 mg Q8HR GT 06/03/19 14:00 07/03/19 13:59 06/03/19 13:52 Norepinephrine Bitartrate 4 mg/ Dextrose 250 ml @ 0 mls/hr Q24H IV 05/29/19 19:20 06/28/19 19:19 05/30/19 22:45 Pantoprazole (Protonix) 40 mg EVERY 12 HOURS IVP 05/27/19 10:45 06/26/19 10:44 06/03/19 09:37 Piperacillin Sod/ Tazobactam Sod 2.25 gm/Dextrose 55 ml @ 110 mls/hr Q8HR@0400,1200,1999 IV 06/03/19 12:00 06/10/19 11:59 06/03/19 11:40 Last 24 Hour Vital Signs Date Time Temp Pulse Resp B/P (MAP) Pulse Ox O2 Delivery O2 Flow Rate FiO2 06/03/19 17:05 63 31 40 06/03/19 17:00 67 25 117/42 (67) 95 06/03/19 16:00 62 20 102/35 (57) 94 06/03/19 16:00 Mechanical Ventilator 06/03/19 15:24 65 06/03/19 15:00 74 27 118/45 (69) 94 06/03/19 14:40 40 06/03/19 14:39 66 25 40 06/03/19 14:00 98.1 68 20 115/41 (65) 93 06/03/19 13:00 74 27 118/45 (69) 94 06/03/19 12:51 58 29 40 06/03/19 12:00 57 22 113/43 (66) 94 06/03/19 12:00 Mechanical Ventilator 06/03/19 12:00 57 06/03/19 11:00 61 22 107/47 (67) 93 06/03/19 10:37 72 29 45 06/03/19 10:00 68 16 115/49 (71) 95 06/03/19 09:00 67 17 115/40 (65) 94 06/03/19 09:00 65 16 122/47 (72) 95 06/03/19 08:44 57 18 50 06/03/19 08:38 50 06/03/19 08:00 62 06/03/19 08:00 Mechanical Ventilator 06/03/19 08:00 97.5 62 18 117/56 (76) 98 06/03/19 08:00 60 06/03/19 07:23 91 21 99 Mechanical Ventilator 60 06/03/19 07:20 63 20 60 06/03/19 07:00 67 17 115/40 (65) 06/03/19 06:00 72 18 130/45 (73) 06/03/19 05:30 82 20 60 06/03/19 05:00 110 26 108/60 (76) 06/03/19 04:00 60 06/03/19 04:00 Mechanical Ventilator 06/03/19 04:00 60 06/03/19 04:00 98.5 59 15 97/42 (60) 99 06/03/19 03:00 67 22 106/50 (68) 98 06/03/19 03:00 64 19 60 06/03/19 02:00 68 28 112/41 (64) 99 06/03/19 01:07 98.5 06/03/19 01:00 98.5 66 20 122/42 (68) 99 06/03/19 00:59 62 19 60 06/03/19 00:00 72 25 109/43 (65) 99 06/03/19 00:00 64 06/03/19 00:00 60 06/03/19 00:00 Mechanical Ventilator 1/6/20 23:13 78 22 60 06/02/19 23:00 79 25 119/52 (74) 98 06/02/19 22:00 72 18 97/30 (52) 99 06/02/19 21:07 82 19 60 06/02/19 21:00 69 17 92/38 (56) 98 06/02/19 20:45 75 19 100/43 (62) 98 06/02/19 20:30 80 25 133/52 (79) 98 06/02/19 20:15 79 24 123/48 (73) 98 06/02/19 20:00 Mechanical Ventilator 06/02/19 20:00 73 06/02/19 20:00 60 06/02/19 20:00 98.4 74 23 125/47 (73) 98 06/02/19 19:20 100/43 06/02/19 19:00 68 17 111/42 (65) 97 06/02/19 18:47 71 22 60 06/02/19 18:00 80 26 101/46 (64) 100 06/02/19 17:10 75 27 60 06/02/19 17:00 64 26 115/39 (64) 96 06/02/19 16:00 71 06/02/19 16:00 97.0 62 8 107/40 (62) 97 06/02/19 16:00 Mechanical Ventilator 06/02/19 16:00 60 06/02/19 15:00 83 26 129/49 (75) 96 06/02/19 14:00 71 12 100/36 (57) 97 06/02/19 13:25 70 17 60 06/02/19 13:00 68 18 125/44 (71) 95 06/02/19 12:00 60 06/02/19 12:00 Mechanical Ventilator 06/02/19 12:00 98.6 67 21 105/38 (60) 95 06/02/19 12:00 72 06/02/19 11:13 69 17 65 06/02/19 11:00 66 18 90/36 (54) 95 06/02/19 10:00 67 16 110/40 (63) 96 06/02/19 09:10 76 30 65 06/02/19 09:00 75 24 110/35 (60) 96 06/02/19 08:00 Mechanical Ventilator 06/02/19 08:00 78 06/02/19 08:00 63 17 104/36 (58) 97 06/02/19 08:00 60 06/02/19 07:06 64 20 65 06/02/19 07:00 97.8 70 23 95/34 (54) 95 06/02/19 06:00 67 21 94/32 (52) 95 06/02/19 05:30 81 29 65 06/02/19 05:00 90 28 127/44 (71) 95 06/02/19 04:00 Mechanical Ventilator 06/02/19 04:00 80 06/02/19 04:00 98.5 66 4 99/37 (57) 95 06/02/19 04:00 60 06/02/19 03:28 77 26 65 06/02/19 03:15 84 24 122/45 (70) 93 06/02/19 03:00 66 0 107/44 (65) 95 06/02/19 02:00 67 0 103/43 (63) 95 06/02/19 01:00 67 16 107/49 (68) 96 06/02/19 00:30 71 26 65 06/02/19 00:00 Mechanical Ventilator 06/02/19 00:00 97.9 67 21 114/43 (66) 96 06/02/19 00:00 60 06/02/19 00:00 72 06/01/19 23:30 62 10 85/35 (52) 96 06/01/19 23:25 71 18 65 06/01/19 23:00 70 11 116/54 (74) 95 06/01/19 22:30 69 8 109/44 (65) 95 06/01/19 22:00 65 0 101/39 (59) 94 06/01/19 21:30 73 14 125/52 (76) 94 06/01/19 21:09 71 18 65 06/01/19 21:00 68 0 98/41 (60) 94 06/01/19 20:30 77 21 123/97 (106) 94 06/01/19 20:00 98.0 95 16 147/130 (136) 98 06/01/19 20:00 67 06/01/19 20:00 60 06/01/19 20:00 Mechanical Ventilator 06/01/19 19:42 81 29 65 06/01/19 19:30 80 25 122/49 (73) 94 06/01/19 19:20 122/49 06/01/19 18:30 65 12 102/42 (62) 97 06/01/19 18:00 75 25 125/42 (69) 96 Intake and Output 06/02/19 06/03/19 19:00 07:00 Intake Total 1535.0 ml 1362.5 ml Output Total 93 ml 1060 ml Balance 1442.0 ml 302.5 ml Free Water 120 ml 150 ml IV Total 935.0 ml 732.5 ml Tube Feeding 480 ml 480 ml Output Urine Total 93 ml 60 ml Hemodialysis UF 1000 ml # Bowel Movements 2 3 Labs Test 06/01/19 05:07 06/02/19 05:10 06/03/19 08:00 White Blood Count 9.8 K/UL (4.8-10.8) 9.5 K/UL (4.8-10.8) 6.3 K/UL (4.8-10.8) Red Blood Count 2.90 M/UL (4.70-6.10) 3.05 M/UL (4.70-6.10) 2.48 M/UL (4.70-6.10) Hemoglobin 8.7 G/DL (14.2-18.0) 9.2 G/DL (14.2-18.0) 7.5 G/DL (14.2-18.0) Hematocrit 26.7 % (42.0-52.0) 28.1 % (42.0-52.0) 22.6 % (42.0-52.0) Mean Corpuscular Volume 92 FL (80-99) 92 FL (80-99) 91 FL (80-99) Mean Corpuscular Hemoglobin 30.0 PG (27.0-31.0) 30.1 PG (27.0-31.0) 30.4 PG (27.0-31.0) Mean Corpuscular Hemoglobin Concent 32.6 G/DL (32.0-36.0) 32.7 G/DL (32.0-36.0) 33.4 G/DL (32.0-36.0) Red Cell Distribution Width 15.4 % (11.6-14.8) 16.4 % (11.6-14.8) 16.0 % (11.6-14.8) Platelet Count 203 K/UL (150-450) 208 K/UL (150-450) 132 K/UL (150-450) Mean Platelet Volume 4.6 FL (6.5-10.1) 5.1 FL (6.5-10.1) 5.0 FL (6.5-10.1) Neutrophils (%) (Auto) % (45.0-75.0) % (45.0-75.0) % (45.0-75.0) Lymphocytes (%) (Auto) % (20.0-45.0) % (20.0-45.0) % (20.0-45.0) Monocytes (%) (Auto) % (1.0-10.0) % (1.0-10.0) % (1.0-10.0) Eosinophils (%) (Auto) % (0.0-3.0) % (0.0-3.0) % (0.0-3.0) Basophils (%) (Auto) % (0.0-2.0) % (0.0-2.0) % (0.0-2.0) Differential Total Cells Counted 100 100 Neutrophils % (Manual) 85 % (45-75) 92 % (45-75) Lymphocytes % (Manual) 10 % (20-45) 5 % (20-45) Monocytes % (Manual) 5 % (1-10) 3 % (1-10) Eosinophils % (Manual) 0 % (0-3) 0 % (0-3) Basophils % (Manual) 0 % (0-2) 0 % (0-2) Band Neutrophils 0 % (0-8) 0 % (0-8) Platelet Estimate Adequate Decreased Platelet Morphology Normal Normal Hypochromasia 2+ Anisocytosis 1+ 1+ Sodium Level 137 MMOL/L (136-145) 136 MMOL/L (136-145) 135 MMOL/L (136-145) Potassium Level 4.1 MMOL/L (3.5-5.1) 3.9 MMOL/L (3.5-5.1) 3.4 MMOL/L (3.5-5.1) Chloride Level 104 MMOL/L (98-107) 103 MMOL/L (98-107) 104 MMOL/L (98-107) Carbon Dioxide Level 16 MMOL/L (21-32) 16 MMOL/L (21-32) 23 MMOL/L (21-32) Anion Gap 17 mmol/L (5-15) 17 mmol/L (5-15) 8 mmol/L (5-15) Blood Urea Nitrogen 80 mg/dL (7-18) 80 mg/dL (7-18) 59 mg/dL (7-18) Creatinine 4.8 MG/DL (0.55-1.30) 5.4 MG/DL (0.55-1.30) 4.5 MG/DL (0.55-1.30) Estimat Glomerular Filtration Rate mL/min (>60) mL/min (>60) mL/min (>60) Glucose Level 77 MG/DL (74-106) 103 MG/DL (74-106) 146 MG/DL (74-106) Lactic Acid Level 0.50 mmol/L (0.4-2.0) Uric Acid 6.9 MG/DL (2.6-7.2) 7.1 MG/DL (2.6-7.2) 5.3 MG/DL (2.6-7.2) Calcium Level 6.6 MG/DL (8.5-10.1) 6.8 MG/DL (8.5-10.1) 6.6 MG/DL (8.5-10.1) Phosphorus Level 6.3 MG/DL (2.5-4.9) 6.4 MG/DL (2.5-4.9) 4.7 MG/DL (2.5-4.9) Magnesium Level 1.9 MG/DL (1.8-2.4) 2.0 MG/DL (1.8-2.4) 1.9 MG/DL (1.8-2.4) Total Bilirubin 0.4 MG/DL (0.2-1.0) 0.4 MG/DL (0.2-1.0) 0.2 MG/DL (0.2-1.0) Aspartate Amino Transf (AST/SGOT) 25 U/L (15-37) 25 U/L (15-37) 20 U/L (15-37) Alanine Aminotransferase (ALT/SGPT) 17 U/L (12-78) 17 U/L (12-78) 11 U/L (12-78) Alkaline Phosphatase 48 U/L (46-116) 57 U/L (46-116) 53 U/L (46-116) Troponin I 0.027 ng/mL (0.000-0.056) C-Reactive Protein, Quantitative 10.6 mg/dL (0.00-0.90) 8.1 mg/dL (0.00-0.90) 6.0 mg/dL (0.00-0.90) Pro-B-Type Natriuretic Peptide 5833 pg/mL (0-125) 6721 pg/mL (0-125) 7239 pg/mL (0-125) Total Protein 4.9 G/DL (6.4-8.2) 5.3 G/DL (6.4-8.2) 4.6 G/DL (6.4-8.2) Albumin 1.6 G/DL (3.4-5.0) 1.7 G/DL (3.4-5.0) 1.3 G/DL (3.4-5.0) Globulin 3.3 g/dL 3.6 g/dL 3.3 g/dL Albumin/Globulin Ratio 0.5 (1.0-2.7) 0.5 (1.0-2.7) 0.4 (1.0-2.7) Random Vancomycin Level 22.2 ug/mL 21.1 ug/mL Prothrombin Time 11.8 SEC (9.30-11.50) Prothromb Time International Ratio 1.1 (0.9-1.1) Activated Partial Thromboplast Time 36 SEC (23-33) Height (Feet): 5 Height (Inches): 7.00 Weight (Pounds): 200 Objective PE: Vitals: reviewed General Appearance: NAD HEENT: normocephalic, atraumatic++ ngt Neck: non-tender, normal alignment Respiratory/Chest: VENT++ Cardiovascular/Chest: normal peripheral pulses, normal rate Abdomen: normal bowel sounds, soft, nontender Extremities: normal range of motion ++ right arm swelling Suleman Addison MD Jun 03, 2019 17:48
[2019-06-03] MEDS: Dyna-Hex 2% Top Sol 2oz TOPIC SCH (20:33)
--- NOTE | 2019-06-03 20:38 | General Progress Note ---
Assessment/Plan Problem List: (1) SOB (shortness of breath) ICD Codes: R06.02 - Shortness of breath SNOMED: 861943263 (2) Cellulitis ICD Codes: L03.90 - Cellulitis, unspecified SNOMED: 858878752 (3) Cellulitis of upper extremity ICD Codes: L03.119 - Cellulitis of unspecified part of limb SNOMED: 153674852 Qualifiers: Qualified Codes: L03.113 - Cellulitis of right upper limb (4) Renal insufficiency ICD Codes: N28.9 - Disorder of kidney and ureter, unspecified SNOMED: 936948442, 156471917 (5) Renal failure (ARF), acute on chronic ICD Codes: N17.9 - Acute kidney failure, unspecified; N18.9 - Chronic kidney disease, unspecified SNOMED: 840058215 (6) Anemia ICD Codes: D64.9 - Anemia, unspecified SNOMED: 500482770 (7) Hypothyroidism ICD Codes: E03.9 - Hypothyroidism, unspecified SNOMED: 92667961 (8) UTI (urinary tract infection) ICD Codes: N39.0 - Urinary tract infection, site not specified SNOMED: 65298103 Status: progressing, deteriorating Assessment/Plan: malnutrition lethargic intubated chf exac pna fluid overload fcheck h/h lyte abnormlaity moniter for bleedi Subjective ROS Limited/Unobtainable: Yes Allergies: Coded Allergies: No Known Allergies (Unverified , 05/18/19) Objective Last 24 Hour Vital Signs Date Time Temp Pulse Resp B/P (MAP) Pulse Ox O2 Delivery O2 Flow Rate FiO2 06/03/19 19:36 55 22 40 06/03/19 19:20 105/41 06/03/19 19:00 69 29 125/49 (74) 94 06/03/19 19:00 57 25 107/44 (65) 94 06/03/19 18:00 69 29 125/49 (74) 94 06/03/19 17:05 63 31 40 06/03/19 17:00 67 25 117/42 (67) 95 06/03/19 16:00 62 20 102/35 (57) 94 06/03/19 16:00 Mechanical Ventilator 06/03/19 15:24 65 06/03/19 15:00 74 27 118/45 (69) 94 06/03/19 14:40 40 06/03/19 14:39 66 25 40 06/03/19 14:00 98.1 68 20 115/41 (65) 93 06/03/19 13:00 74 27 118/45 (69) 94 06/03/19 12:51 58 29 40 06/03/19 12:00 57 22 113/43 (66) 94 06/03/19 12:00 Mechanical Ventilator 06/03/19 12:00 57 06/03/19 11:00 61 22 107/47 (67) 93 06/03/19 10:37 72 29 45 06/03/19 10:00 68 16 115/49 (71) 95 06/03/19 09:00 67 17 115/40 (65) 94 06/03/19 09:00 65 16 122/47 (72) 95 06/03/19 08:44 57 18 50 06/03/19 08:38 50 06/03/19 08:00 62 06/03/19 08:00 Mechanical Ventilator 06/03/19 08:00 97.5 62 18 117/56 (76) 98 06/03/19 08:00 60 06/03/19 07:23 91 21 99 Mechanical Ventilator 60 06/03/19 07:20 63 20 60 06/03/19 07:00 67 17 115/40 (65) 06/03/19 06:00 72 18 130/45 (73) 06/03/19 05:30 82 20 60 06/03/19 05:00 110 26 108/60 (76) 06/03/19 04:00 60 06/03/19 04:00 Mechanical Ventilator 06/03/19 04:00 60 06/03/19 04:00 98.5 59 15 97/42 (60) 99 06/03/19 03:00 67 22 106/50 (68) 98 06/03/19 03:00 64 19 60 06/03/19 02:00 68 28 112/41 (64) 99 06/03/19 01:07 98.5 06/03/19 01:00 98.5 66 20 122/42 (68) 99 06/03/19 00:59 62 19 60 06/03/19 00:00 72 25 109/43 (65) 99 06/03/19 00:00 64 06/03/19 00:00 60 06/03/19 00:00 Mechanical Ventilator 06/02/19 23:13 78 22 60 06/02/19 23:00 79 25 119/52 (74) 98 06/02/19 22:00 72 18 97/30 (52) 99 06/02/19 21:07 82 19 60 06/02/19 21:00 69 17 92/38 (56) 98 06/02/19 20:45 75 19 100/43 (62) 98 Intake and Output 06/02/19 06/03/19 19:00 07:00 Intake Total 1535.0 ml 1362.5 ml Output Total 93 ml 1060 ml Balance 1442.0 ml 302.5 ml Free Water 120 ml 150 ml IV Total 935.0 ml 732.5 ml Tube Feeding 480 ml 480 ml Output Urine Total 93 ml 60 ml Hemodialysis UF 1000 ml # Bowel Movements 2 3 Laboratory Tests 06/03/19 08:00: White Blood Count 6.3, Red Blood Count 2.48L, Hemoglobin 7.5L, Hematocrit 22.6L , Mean Corpuscular Volume 91, Mean Corpuscular Hemoglobin 30.4, Mean Corpuscular Hemoglobin Concent 33.4, Red Cell Distribution Width 16.0H, Platelet Count 132L, Mean Platelet Volume 5.0L, Neutrophils (%) (Auto) , Lymphocytes (%) (Auto) , Monocytes (%) (Auto) , Eosinophils (%) (Auto) , Basophils (%) (Auto) , Differential Total Cells Counted 100, Neutrophils % ( Manual) 92H, Lymphocytes % (Manual) 5L, Monocytes % (Manual) 3, Eosinophils % ( Manual) 0, Basophils % (Manual) 0, Band Neutrophils 0, Platelet Estimate DecreasedL, Platelet Morphology Normal, Anisocytosis 1+, Sodium Level 135L, Potassium Level 3.4L, Chloride Level 104, Carbon Dioxide Level 23, Anion Gap 8, Blood Urea Nitrogen 59H, Creatinine 4.5H, Estimat Glomerular Filtration Rate , Glucose Level 146H, Uric Acid 5.3, Calcium Level 6.6L, Phosphorus Level 4.7, Magnesium Level 1.9, Total Bilirubin 0.2, Aspartate Amino Transf (AST/SGOT) 20, Alanine Aminotransferase (ALT/SGPT) 11L, Alkaline Phosphatase 53, C-Reactive Protein, Quantitative 6.0H, Pro-B-Type Natriuretic Peptide 7239H, Total Protein 4.6L, Albumin 1.3L, Globulin 3.3, Albumin/Globulin Ratio 0.4L Height (Feet): 5 Height (Inches): 7.00 Weight (Pounds): 200 Cardiovascular: normal rate Respiratory/Chest: lungs clear Abdomen: soft Joslyn Wiggins MD Jun 03, 2019 20:38
--- NOTE | 2019-06-03 22:39 | Cardiology Progress Note ---
Assessment/Plan Assessment/Plan 1. Atrial fibrillation with rapid ventricular response, converted to sinus rhythm, continue amiodarone. 2. Septic shock, resolved. 3. Oliguric acute kidney injury, CXR shows B/L pulmonary edema, s/p HD. 4. Small pericardial effusion with pleural effusion, s/p HD. 5. Anemia. Subjective Subjective Sinus rhythm at rate of 62. Intubated. Objective Last 24 Hour Vital Signs Date Time Temp Pulse Resp B/P (MAP) Pulse Ox O2 Delivery O2 Flow Rate FiO2 06/03/19 22:00 62 0 110/46 (67) 06/03/19 21:20 66 30 40 06/03/19 21:00 66 20 128/50 (76) 95 06/03/19 20:00 98.2 61 24 105/41 (62) 96 06/03/19 20:00 Mechanical Ventilator 06/03/19 20:00 64 06/03/19 20:00 40 06/03/19 19:36 55 22 40 06/03/19 19:20 105/41 06/03/19 19:00 69 29 125/49 (74) 94 06/03/19 19:00 57 25 107/44 (65) 94 06/03/19 18:00 69 29 125/49 (74) 94 06/03/19 17:05 63 31 40 06/03/19 17:00 67 25 117/42 (67) 95 06/03/19 16:00 62 20 102/35 (57) 94 06/03/19 16:00 Mechanical Ventilator 06/03/19 15:24 65 06/03/19 15:00 74 27 118/45 (69) 94 06/03/19 14:40 40 06/03/19 14:39 66 25 40 06/03/19 14:00 98.1 68 20 115/41 (65) 93 06/03/19 13:00 74 27 118/45 (69) 94 06/03/19 12:51 58 29 40 06/03/19 12:00 57 22 113/43 (66) 94 06/03/19 12:00 Mechanical Ventilator 06/03/19 12:00 57 06/03/19 11:00 61 22 107/47 (67) 93 06/03/19 10:37 72 29 45 06/03/19 10:00 68 16 115/49 (71) 95 06/03/19 09:00 67 17 115/40 (65) 94 06/03/19 09:00 65 16 122/47 (72) 95 06/03/19 08:44 57 18 50 06/03/19 08:38 50 06/03/19 08:00 62 06/03/19 08:00 Mechanical Ventilator 06/03/19 08:00 97.5 62 18 117/56 (76) 98 06/03/19 08:00 60 06/03/19 07:23 91 21 99 Mechanical Ventilator 60 06/03/19 07:20 63 20 60 06/03/19 07:00 67 17 115/40 (65) 06/03/19 06:00 72 18 130/45 (73) 06/03/19 05:30 82 20 60 06/03/19 05:00 110 26 108/60 (76) 06/03/19 04:00 60 06/03/19 04:00 Mechanical Ventilator 06/03/19 04:00 60 06/03/19 04:00 98.5 59 15 97/42 (60) 99 06/03/19 03:00 67 22 106/50 (68) 98 06/03/19 03:00 64 19 60 06/03/19 02:00 68 28 112/41 (64) 99 06/03/19 01:07 98.5 06/03/19 01:00 98.5 66 20 122/42 (68) 99 06/03/19 00:59 62 19 60 06/03/19 00:00 72 25 109/43 (65) 99 06/03/19 00:00 64 06/03/19 00:00 60 06/03/19 00:00 Mechanical Ventilator 06/02/19 23:13 78 22 60 06/02/19 23:00 79 25 119/52 (74) 98 Intake and Output 06/02/19 06/03/19 19:00 07:00 Intake Total 1535.0 ml 1362.5 ml Output Total 93 ml 1060 ml Balance 1442.0 ml 302.5 ml Free Water 120 ml 150 ml IV Total 935.0 ml 732.5 ml Tube Feeding 480 ml 480 ml Output Urine Total 93 ml 60 ml Hemodialysis UF 1000 ml # Bowel Movements 2 3 2D Echo: EF 65%,Mod AR,Elevated RAP, RVSP 30,Small pericardial eff, pleural effusion Laboratory Tests Test 06/03/19 08:00 White Blood Count 6.3 K/UL (4.8-10.8) Red Blood Count 2.48 M/UL (4.70-6.10) L Hemoglobin 7.5 G/DL (14.2-18.0) L Hematocrit 22.6 % (42.0-52.0) L Mean Corpuscular Volume 91 FL (80-99) Mean Corpuscular Hemoglobin 30.4 PG (27.0-31.0) Mean Corpuscular Hemoglobin Concent 33.4 G/DL (32.0-36.0) Red Cell Distribution Width 16.0 % (11.6-14.8) H Platelet Count 132 K/UL (150-450) L Mean Platelet Volume 5.0 FL (6.5-10.1) L Neutrophils (%) (Auto) % (45.0-75.0) Lymphocytes (%) (Auto) % (20.0-45.0) Monocytes (%) (Auto) % (1.0-10.0) Eosinophils (%) (Auto) % (0.0-3.0) Basophils (%) (Auto) % (0.0-2.0) Differential Total Cells Counted 100 Neutrophils % (Manual) 92 % (45-75) H Lymphocytes % (Manual) 5 % (20-45) L Monocytes % (Manual) 3 % (1-10) Eosinophils % (Manual) 0 % (0-3) Basophils % (Manual) 0 % (0-2) Band Neutrophils 0 % (0-8) Platelet Estimate Decreased L Platelet Morphology Normal Anisocytosis 1+ Sodium Level 135 MMOL/L (136-145) L Potassium Level 3.4 MMOL/L (3.5-5.1) L Chloride Level 104 MMOL/L (98-107) Carbon Dioxide Level 23 MMOL/L (21-32) Anion Gap 8 mmol/L (5-15) Blood Urea Nitrogen 59 mg/dL (7-18) H Creatinine 4.5 MG/DL (0.55-1.30) H Estimat Glomerular Filtration Rate mL/min (>60) Glucose Level 146 MG/DL (74-106) H Uric Acid 5.3 MG/DL (2.6-7.2) Calcium Level 6.6 MG/DL (8.5-10.1) L Phosphorus Level 4.7 MG/DL (2.5-4.9) Magnesium Level 1.9 MG/DL (1.8-2.4) Total Bilirubin 0.2 MG/DL (0.2-1.0) Aspartate Amino Transf (AST/SGOT) 20 U/L (15-37) Alanine Aminotransferase (ALT/SGPT) 11 U/L (12-78) L Alkaline Phosphatase 53 U/L (46-116) C-Reactive Protein, Quantitative 6.0 mg/dL (0.00-0.90) H Pro-B-Type Natriuretic Peptide 7239 pg/mL (0-125) H Total Protein 4.6 G/DL (6.4-8.2) L Albumin 1.3 G/DL (3.4-5.0) L Globulin 3.3 g/dL Albumin/Globulin Ratio 0.4 (1.0-2.7) L Objective HEENT: Atraumatic and normocephalic. Anicteric. Pupils are equal, round, and reactive to light and accommodation. Extraocular muscles intact. NECK: JVP less than 5 cm. No carotid bruit. Carotid upstroke is 2+ bilaterally. CARDIOVASCULAR: Normal S1, S2. Regular rate and rhythm. No murmurs, gallops, or rubs. PMI is at fourth intercostal space in the midclavicular line. LUNGS: Clear to auscultation bilaterally. Positive for wheezing. ABDOMEN: Soft, nontender, and nondistended. No hepatosplenomegaly. Positive bowel sounds. EXTREMITIES: No evidence of edema, clubbing, or cyanosis. Del Garcia MD Jun 03, 2019 22:39
[2019-06-04] VITALS (24 sets, daily range): BP systolic 83–181; BP diastolic 35–77
[2019-06-04] MEDS: Zosyn 2.25 gm in D5W 55ml IV SCH ×3 (04:21→20:11)
[2019-06-04] MEDS: Midodrine 10mg tab GT SCH ×3 (05:34→21:47)
[2019-06-04 06:03] LABS: HEMATOCRIT 27.5 % (42.0-52.0); HEMOGLOBIN 9.3 G/DL (14.2-18.0); MEAN CORPUSCULAR VOLUME 91 FL (80-99); PLATELET COUNT 146 K/UL (150-450); RED BLOOD COUNT 3.04 M/UL (4.70-6.10); RED CELL DISTRIBUTION WIDTH 14.9 % (11.6-14.8); WHITE BLOOD COUNT 7.8 K/UL (4.8-10.8)
[2019-06-04 06:37] LABS: ALANINE AMINOTRANSFERASE 16 U/L (12-78); ALBUMIN 1.5 G/DL (3.4-5.0); ALBUMIN/GLOBULIN RATIO 0.4 (1.0-2.7); ALKALINE PHOSPHATASE 52 U/L (46-116); ANION GAP 11 mmol/L (5-15); ASPARTATE AMINO TRANSFERASE 23 U/L (15-37); BILIRUBIN,TOTAL 0.3 MG/DL (0.2-1.0); BLOOD UREA NITROGEN 64 mg/dL (7-18); CALCIUM 6.8 MG/DL (8.5-10.1); CARBON DIOXIDE 21 MMOL/L (21-32); CHLORIDE 105 MMOL/L (98-107); CREATININE 4.8 MG/DL (0.55-1.30); POTASSIUM 3.2 MMOL/L (3.5-5.1); SODIUM 137 MMOL/L (136-145)
[2019-06-04] MEDS: Docusate 100mg/10ml Liq NG SCH (09:25)
[2019-06-04] MEDS: Pantoprazole Inj IVP SCH ×2 (09:25→21:08)
[2019-06-04] MEDS: Amiodarone 200mg tab GT SCH (09:26)
--- NOTE | 2019-06-04 10:04 | General Progress Note ---
Assessment/Plan Problem List: (1) Dysphagia ICD Codes: R13.10 - Dysphagia, unspecified SNOMED: 09961642, 194451355 (2) Anemia ICD Codes: D64.9 - Anemia, unspecified SNOMED: 990941982 (3) Hypothyroidism ICD Codes: E03.9 - Hypothyroidism, unspecified SNOMED: 29882795 (4) Thrombus ICD Codes: I82.90 - Acute embolism and thrombosis of unspecified vein SNOMED: 11220602, 40887473, 359813763, 095214151 (5) A-fib ICD Codes: I48.91 - Unspecified atrial fibrillation SNOMED: 47529087 Status: progressing, deteriorating Assessment/Plan: intubated in ICU NGTF fu pulm fu labs abx per ID on HD poor prognosis PEG if needed Subjective ROS Limited/Unobtainable: No Allergies: Coded Allergies: No Known Allergies (Unverified , 05/18/19) Subjective coded today Objective Last 24 Hour Vital Signs Date Time Temp Pulse Resp B/P (MAP) Pulse Ox O2 Delivery O2 Flow Rate FiO2 06/04/19 09:09 60 18 80 06/04/19 09:00 60 06/04/19 07:14 65 27 40 06/04/19 07:00 62 22 152/49 (83) 91 06/04/19 06:00 60 22 103/39 (60) 91 06/04/19 05:30 80 29 40 06/04/19 05:00 75 19 148/77 (100) 85 06/04/19 04:00 98.6 57 0 96/38 (57) 06/04/19 04:00 63 06/04/19 04:00 40 06/04/19 04:00 Mechanical Ventilator 06/04/19 03:33 65 30 40 06/04/19 03:00 71 8 141/48 (79) 95 06/04/19 02:00 62 0 119/46 (70) 95 06/04/19 01:00 59 19 103/37 (59) 94 06/04/19 00:58 60 29 40 06/04/19 00:00 62 06/04/19 00:00 40 06/04/19 00:00 Mechanical Ventilator 06/04/19 00:00 98.2 60 0 106/41 (62) 94 1/7/20 23:42 66 30 40 06/03/19 23:00 64 5 126/47 (73) 94 06/03/19 22:00 62 0 110/46 (67) 06/03/19 21:20 66 30 40 06/03/19 21:00 66 20 128/50 (76) 95 06/03/19 20:00 98.2 61 24 105/41 (62) 96 06/03/19 20:00 Mechanical Ventilator 06/03/19 20:00 64 06/03/19 20:00 40 06/03/19 19:36 55 22 40 06/03/19 19:20 105/41 06/03/19 19:00 69 29 125/49 (74) 94 06/03/19 19:00 57 25 107/44 (65) 94 06/03/19 18:00 69 29 125/49 (74) 94 06/03/19 17:05 63 31 40 06/03/19 17:00 67 25 117/42 (67) 95 06/03/19 16:00 62 20 102/35 (57) 94 06/03/19 16:00 Mechanical Ventilator 06/03/19 15:24 65 06/03/19 15:00 74 27 118/45 (69) 94 06/03/19 14:40 40 06/03/19 14:39 66 25 40 06/03/19 14:00 98.1 68 20 115/41 (65) 93 06/03/19 13:00 74 27 118/45 (69) 94 06/03/19 12:51 58 29 40 06/03/19 12:00 57 22 113/43 (66) 94 06/03/19 12:00 Mechanical Ventilator 06/03/19 12:00 57 06/03/19 11:00 61 22 107/47 (67) 93 06/03/19 10:37 72 29 45 Intake and Output 06/03/19 06/04/19 19:00 07:00 Intake Total 1527.21 ml 1130 ml Output Total 10 ml 0 ml Balance 1517.21 ml 1130 ml Free Water 30 ml 100 ml IV Total 667.21 ml 550 ml Tube Feeding 480 ml 480 ml Blood Product 250 ml Other 100 ml Output Urine Total 10 ml 0 ml # Bowel Movements 1 Laboratory Tests 06/04/19 05:00: White Blood Count 7.8, Red Blood Count 3.04L, Hemoglobin 9.3L, Hematocrit 27.5L , Mean Corpuscular Volume 91, Mean Corpuscular Hemoglobin 30.5, Mean Corpuscular Hemoglobin Concent 33.7, Red Cell Distribution Width 14.9H, Platelet Count 146L, Mean Platelet Volume 5.3L, Neutrophils (%) (Auto) , Lymphocytes (%) (Auto) , Monocytes (%) (Auto) , Eosinophils (%) (Auto) , Basophils (%) (Auto) , Differential Total Cells Counted 100, Neutrophils % ( Manual) 85H, Lymphocytes % (Manual) 8L, Monocytes % (Manual) 6, Eosinophils % ( Manual) 0, Basophils % (Manual) 1, Band Neutrophils 0, Platelet Estimate DecreasedL, Platelet Morphology Normal, Hypochromasia 2+, Anisocytosis 1+, Sodium Level 137, Potassium Level 3.2L, Chloride Level 105, Carbon Dioxide Level 21, Anion Gap 11, Blood Urea Nitrogen 64H, Creatinine 4.8H, Estimat Glomerular Filtration Rate , Glucose Level 146H, Uric Acid 5.2, Calcium Level 6.8L, Phosphorus Level 4.0, Magnesium Level 2.0, Total Bilirubin 0.3, Aspartate Amino Transf (AST/SGOT) 23, Alanine Aminotransferase (ALT/SGPT) 16, Alkaline Phosphatase 52, C-Reactive Protein, Quantitative 6.3H, Pro-B-Type Natriuretic Peptide 7273H, Total Protein 5.0L, Albumin 1.5L, Globulin 3.5, Albumin/Globulin Ratio 0.4L, Random Vancomycin Level 19.6 Height (Feet): 5 Height (Inches): 7.00 Weight (Pounds): 204 General Appearance: lethargic EENT: normal ENT inspection Neck: supple Cardiovascular: normal rate Respiratory/Chest: decreased breath sounds Abdomen: normal bowel sounds, non tender, soft Extremities: non-tender Valentino Lino MD Jun 04, 2019 10:04
--- NOTE | 2019-06-04 10:27 | Infectious Diseases Prog Note ---
Assessment/Plan Assessment/Plan 84 yo male with PMHx of HTN who was sent to the ED on 05/18/19 from his fpc for possible picc line infection. Swelling around PICC line Minimal to no erythema and no purulent drainage Not likely to be infected Blood Cx 05/18/19 - NGTD PICC Tip Cx 05/18/19 - NGTD PICC line removed 05/18/19 No Leukocytosis No fever OM - Let foot On Vancomycin at nursing End date early May PNA on 8L NC CXR - Some LLL Atelectasis vs PNA, Nodules CT 05/20/19 - Bilateral upper lobe infiltrates worse on the right. Consider pneumonia. Bilateral pleural effusions moderate in size Sp Cx Marily HTN PLAN - Continue Daptomycin for OM End date per fpc MD - Continue Zosyn #9/10 for probable PNA - 05/28/19 SP Vancomycin per pharmacy - Stopped for increasing Cr - 05/27/19 SP Levofloxacin #5 - Get OSH records for OM - Monitor CBC and Temps Thank you for this consult. [facility] will continue to follow the patient with you during this hospitalization. Subjective Allergies: Coded Allergies: No Known Allergies (Unverified , 05/18/19) Subjective On Vent 80% O2 Afebrile No Leukocytosis Objective Vital Signs Last 24 Hour Vital Signs Date Time Temp Pulse Resp B/P (MAP) Pulse Ox O2 Delivery O2 Flow Rate FiO2 06/04/19 10:00 54 17 102/39 (60) 97 06/04/19 09:09 60 18 80 06/04/19 09:00 58 14 83/39 (54) 98 06/04/19 09:00 60 06/04/19 08:00 Mechanical Ventilator 06/04/19 08:00 80 06/04/19 08:00 99.3 57 8 86/35 (52) 98 06/04/19 07:14 65 27 40 06/04/19 07:00 62 22 152/49 (83) 91 06/04/19 06:00 60 22 103/39 (60) 91 06/04/19 05:30 80 29 40 06/04/19 05:00 75 19 148/77 (100) 85 06/04/19 04:00 98.6 57 0 96/38 (57) 06/04/19 04:00 63 06/04/19 04:00 40 06/04/19 04:00 Mechanical Ventilator 06/04/19 03:33 65 30 40 06/04/19 03:00 71 8 141/48 (79) 95 06/04/19 02:00 62 0 119/46 (70) 95 06/04/19 01:00 59 19 103/37 (59) 94 06/04/19 00:58 60 29 40 06/04/19 00:00 62 06/04/19 00:00 40 06/04/19 00:00 Mechanical Ventilator 06/04/19 00:00 98.2 60 0 106/41 (62) 94 06/03/19 23:42 66 30 40 06/03/19 23:00 64 5 126/47 (73) 94 06/03/19 22:00 62 0 110/46 (67) 06/03/19 21:20 66 30 40 06/03/19 21:00 66 20 128/50 (76) 95 06/03/19 20:00 98.2 61 24 105/41 (62) 96 06/03/19 20:00 Mechanical Ventilator 06/03/19 20:00 64 06/03/19 20:00 40 06/03/19 19:36 55 22 40 06/03/19 19:20 105/41 06/03/19 19:00 69 29 125/49 (74) 94 06/03/19 19:00 57 25 107/44 (65) 94 06/03/19 18:00 69 29 125/49 (74) 94 06/03/19 17:05 63 31 40 06/03/19 17:00 67 25 117/42 (67) 95 06/03/19 16:00 62 20 102/35 (57) 94 06/03/19 16:00 Mechanical Ventilator 06/03/19 15:24 65 06/03/19 15:00 74 27 118/45 (69) 94 06/03/19 14:40 40 06/03/19 14:39 66 25 40 06/03/19 14:00 98.1 68 20 115/41 (65) 93 06/03/19 13:00 74 27 118/45 (69) 94 06/03/19 12:51 58 29 40 06/03/19 12:00 57 22 113/43 (66) 94 06/03/19 12:00 Mechanical Ventilator 06/03/19 12:00 57 06/03/19 11:00 61 22 107/47 (67) 93 06/03/19 10:37 72 29 45 Height (Feet): 5 Height (Inches): 7.00 Weight (Pounds): 204 Objective Gen: Intubatd on vent, On 80% O2 HEENT: NCAT, MMM, EOMI LUNGS: Coarse B/L, Tight and wheezy CARDS: RRR, S1, S2 ABD: Soft, NT, ND Laboratory Tests Test 06/04/19 05:00 06/04/19 08:00 White Blood Count 7.8 K/UL (4.8-10.8) Red Blood Count 3.04 M/UL (4.70-6.10) L Hemoglobin 9.3 G/DL (14.2-18.0) L Hematocrit 27.5 % (42.0-52.0) L Mean Corpuscular Volume 91 FL (80-99) Mean Corpuscular Hemoglobin 30.5 PG (27.0-31.0) Mean Corpuscular Hemoglobin Concent 33.7 G/DL (32.0-36.0) Red Cell Distribution Width 14.9 % (11.6-14.8) H Platelet Count 146 K/UL (150-450) L Mean Platelet Volume 5.3 FL (6.5-10.1) L Neutrophils (%) (Auto) % (45.0-75.0) Lymphocytes (%) (Auto) % (20.0-45.0) Monocytes (%) (Auto) % (1.0-10.0) Eosinophils (%) (Auto) % (0.0-3.0) Basophils (%) (Auto) % (0.0-2.0) Differential Total Cells Counted 100 Neutrophils % (Manual) 85 % (45-75) H Lymphocytes % (Manual) 8 % (20-45) L Monocytes % (Manual) 6 % (1-10) Eosinophils % (Manual) 0 % (0-3) Basophils % (Manual) 1 % (0-2) Band Neutrophils 0 % (0-8) Platelet Estimate Decreased L Platelet Morphology Normal Hypochromasia 2+ Anisocytosis 1+ Sodium Level 137 MMOL/L (136-145) Potassium Level 3.2 MMOL/L (3.5-5.1) L Chloride Level 105 MMOL/L (98-107) Carbon Dioxide Level 21 MMOL/L (21-32) Anion Gap 11 mmol/L (5-15) Blood Urea Nitrogen 64 mg/dL (7-18) H Creatinine 4.8 MG/DL (0.55-1.30) H Estimat Glomerular Filtration Rate mL/min (>60) Glucose Level 146 MG/DL (74-106) H Uric Acid 5.2 MG/DL (2.6-7.2) Calcium Level 6.8 MG/DL (8.5-10.1) L Phosphorus Level 4.0 MG/DL (2.5-4.9) Magnesium Level 2.0 MG/DL (1.8-2.4) Total Bilirubin 0.3 MG/DL (0.2-1.0) Aspartate Amino Transf (AST/SGOT) 23 U/L (15-37) Alanine Aminotransferase (ALT/SGPT) 16 U/L (12-78) Alkaline Phosphatase 52 U/L (46-116) C-Reactive Protein, Quantitative 6.3 mg/dL (0.00-0.90) H Pro-B-Type Natriuretic Peptide 7273 pg/mL (0-125) H Total Protein 5.0 G/DL (6.4-8.2) L Albumin 1.5 G/DL (3.4-5.0) L Globulin 3.5 g/dL Albumin/Globulin Ratio 0.4 (1.0-2.7) L Random Vancomycin Level 19.6 ug/mL Hepatitis B Surface Antigen Pending Current Medications Medications (Trade) Dose Ordered Sig/Phillip Route PRN Reason Start Time Stop Time Status Last Admin Dose Admin Acetaminophen (Tylenol) 500 mg Q4H PRN GT Mild Pain/Temp > 100.5 05/27/19 07:45 06/19/19 20:29 05/28/19 15:39 Amiodarone HCl (Cordarone) 200 mg DAILY GT 06/03/19 09:00 07/03/19 08:59 06/04/19 09:26 Chlorhexidine Gluconate (Reina-Hex 2%) 1 applic DAILY@2000 TOPIC 05/27/19 20:00 06/26/19 19:59 06/03/19 20:33 Daptomycin 500 mg/ Sodium Chloride 55 ml @ 100 mls/hr Q48H IV 05/29/19 13:00 06/11/19 12:59 06/02/19 13:48 Dextrose/Sodium Chloride 1,000 ml @ 40 mls/hr Q24H IV 06/03/19 11:30 07/03/19 11:29 06/03/19 11:41 Docusate Sodium (Colace) 100 mg TID NG 05/27/19 09:00 06/20/19 08:59 06/04/19 09:25 Midodrine (Pro-Amatine) 10 mg Q8HR GT 06/03/19 14:00 07/03/19 13:59 06/04/19 05:34 Norepinephrine Bitartrate 4 mg/ Dextrose 250 ml @ 0 mls/hr Q24H IV 05/29/19 19:20 06/28/19 19:19 05/30/19 22:45 Pantoprazole (Protonix) 40 mg EVERY 12 HOURS IVP 05/27/19 10:45 06/26/19 10:44 06/04/19 09:25 Piperacillin Sod/ Tazobactam Sod 2.25 gm/Dextrose 55 ml @ 110 mls/hr Q8HR@0400,1200,2000 IV 06/03/19 12:00 06/10/19 11:59 06/04/19 04:21 Jimbo Dodd MD Jun 04, 2019 10:27
--- NOTE | 2019-06-04 10:40 | Hematology/Onc Progress Note ---
Assessment/Plan Assessment/Plan # Anemia of chronic disease due to underlying chronic medical issues, multifactorial v Gi bleed --> Anemia workup has been reviewed, rule out gi bleed --> No evidence of hemolysis is noted, peripheral smear has been reviewed. --> Hgb goal >7. Transfuse prn. --> Epogen or iron at this time is not particularly indicated --> Medications have been reviewed --> low threshold for gi evaluation in case has occult + --> hgb trend: 9.3-->9.7-->8.1-->7.6-->8-->9.4-->9.2->7.5-->9.3 --> transf 05/28/19 with 1 unit prbc, 1 unit on 06/03 --> transfusion is a emergency, no family, no poa, is okay to transfuse # Right upper arm extremity axillary vein dvt --> agree to continue eliquis ONCE bleeding resolved --> continue for total of minimum of 3 months --> rescan arm in 3 mo # Thrombocytopenia is due to infection, i.e. cellulitis of upper extremity, likely picc line infection --> as per id on ax --> picc off --> levoflox/vanc-->zosyn/vanc--> zosyn-->dapto/zosyn --> plt trend 208-->132-->146k # Renal insufficiency --> per Dr. Mera # Pneumonia --> abx per id # Dehydration. --> goal of euvolemia # Paroxysmal Atrial fibrillation with rapid ventricular response was on amiodarone gtt, now in sinus rhythm. --> per cards On PO amiodarone 200 bid, Lopressor 25 bid # Dysphagia with ng tube # Dvt ppx eliquis--> now on hold The timing of this note does not necessarily reflect the time of the patient was seen. Greatly appreciate consultation. Subjective Constitutional: Denies: no symptoms, chills, fever, malaise, weakness, other HEENT: Denies: no symptoms, eye pain, blurred vision, tearing, double vision, ear pain, ear discharge, nose pain, nose congestion, throat pain, throat swelling, mouth pain, mouth swelling, other Cardiovascular: Denies: no symptoms, chest pain, edema, irregular heart rate, lightheadedness, palpitations, syncope, other Genitourinary: Denies: no symptoms, burning, discharge, frequency, flank pain, hematuria, incontinence, pain, urgency, other Neurologic/Psychiatric: Denies: no symptoms, anxiety, depressed, emotional problems, headache, numbness, paresthesia, pre-existing deficit, seizure, tingling, tremors, weakness, other Endocrine: Denies: no symptoms, excessive sweating, flushing, intolerance to cold, intolerance to heat, increased hunger, increased thirst, increased urine, unexplained weight gain, unexplained weight loss, other Allergies: Coded Allergies: No Known Allergies (Unverified , 05/18/19) Subjective 05/24: awake and alert, v mask, labs reviewed, apixaban 05/25: as per gi, ngt and eliquis tolerated 05/26: pending clearance but still with ng and nonrebreather 05/27: hypoxic yesterday, deteriorated, coded, now intubated, icu, labs noted 05/28: icu, levophed gtt, hgb 7.6, repeat cbc 05/29: remains in the icu, given prbc last night, no bleeding 05/30: no events, no bleeding, ++ fredo and on pressor 05/31: intubated, bp better on pressor, no bleeding, coag ordered 06/02: reamins ill appearing, on vent, labs noted, on vent, poorly responsive 06/03: no events, no bleeding, labs noted, dw surgery, and Rn, monitoring plt 06/04: tolerating tube feeds, labs noted, in the icu Objective Objective Current Medications Medications (Trade) Dose Ordered Sig/Phillip Route PRN Reason Start Time Stop Time Status Last Admin Dose Admin Acetaminophen (Tylenol) 500 mg Q4H PRN GT Mild Pain/Temp > 100.5 05/27/19 07:45 06/19/19 20:29 05/28/19 15:39 Amiodarone HCl (Cordarone) 200 mg DAILY GT 06/03/19 09:00 07/03/19 08:59 06/04/19 09:26 Chlorhexidine Gluconate (Reina-Hex 2%) 1 applic DAILY@1999 TOPIC 05/27/19 20:00 1/30/20 19:59 06/03/19 20:33 Daptomycin 500 mg/ Sodium Chloride 55 ml @ 100 mls/hr Q48H IV 05/29/19 13:00 06/11/19 12:59 06/02/19 13:48 Dextrose/Sodium Chloride 1,000 ml @ 40 mls/hr Q24H IV 06/03/19 11:30 07/03/19 11:29 06/03/19 11:41 Docusate Sodium (Colace) 100 mg TID NG 05/27/19 09:00 06/20/19 08:59 06/04/19 09:25 Midodrine (Pro-Amatine) 10 mg Q8HR GT 06/03/19 14:00 07/03/19 13:59 06/04/19 05:34 Norepinephrine Bitartrate 4 mg/ Dextrose 250 ml @ 0 mls/hr Q24H IV 05/29/19 19:20 06/28/19 19:19 05/30/19 22:45 Pantoprazole (Protonix) 40 mg EVERY 12 HOURS IVP 05/27/19 10:45 06/26/19 10:44 06/04/19 09:25 Piperacillin Sod/ Tazobactam Sod 2.25 gm/Dextrose 55 ml @ 110 mls/hr Q8HR@0400,1200,2000 IV 06/03/19 12:00 06/10/19 11:59 06/04/19 04:21 Last 24 Hour Vital Signs Date Time Temp Pulse Resp B/P (MAP) Pulse Ox O2 Delivery O2 Flow Rate FiO2 06/04/19 10:00 54 17 102/39 (60) 97 06/04/19 09:09 60 18 80 06/04/19 09:00 58 14 83/39 (54) 98 06/04/19 09:00 60 06/04/19 08:00 Mechanical Ventilator 06/04/19 08:00 80 06/04/19 08:00 99.3 57 8 86/35 (52) 98 06/04/19 07:14 65 27 40 06/04/19 07:00 62 22 152/49 (83) 91 06/04/19 06:00 60 22 103/39 (60) 91 06/04/19 05:30 80 29 40 06/04/19 05:00 75 19 148/77 (100) 85 06/04/19 04:00 98.6 57 0 96/38 (57) 06/04/19 04:00 63 06/04/19 04:00 40 06/04/19 04:00 Mechanical Ventilator 06/04/19 03:33 65 30 40 06/04/19 03:00 71 8 141/48 (79) 95 06/04/19 02:00 62 0 119/46 (70) 95 06/04/19 01:00 59 19 103/37 (59) 94 06/04/19 00:58 60 29 40 06/04/19 00:00 62 06/04/19 00:00 40 06/04/19 00:00 Mechanical Ventilator 06/04/19 00:00 98.2 60 0 106/41 (62) 94 06/03/19 23:42 66 30 40 06/03/19 23:00 64 5 126/47 (73) 94 06/03/19 22:00 62 0 110/46 (67) 06/03/19 21:20 66 30 40 06/03/19 21:00 66 20 128/50 (76) 95 06/03/19 20:00 98.2 61 24 105/41 (62) 96 06/03/19 20:00 Mechanical Ventilator 06/03/19 20:00 64 06/03/19 20:00 40 06/03/19 19:36 55 22 40 06/03/19 19:20 105/41 06/03/19 19:00 69 29 125/49 (74) 94 06/03/19 19:00 57 25 107/44 (65) 94 06/03/19 18:00 69 29 125/49 (74) 94 06/03/19 17:05 63 31 40 06/03/19 17:00 67 25 117/42 (67) 95 06/03/19 16:00 62 20 102/35 (57) 94 06/03/19 16:00 Mechanical Ventilator 06/03/19 15:24 65 06/03/19 15:00 74 27 118/45 (69) 94 06/03/19 14:40 40 06/03/19 14:39 66 25 40 06/03/19 14:00 98.1 68 20 115/41 (65) 93 06/03/19 13:00 74 27 118/45 (69) 94 06/03/19 12:51 58 29 40 06/03/19 12:00 57 22 113/43 (66) 94 06/03/19 12:00 Mechanical Ventilator 06/03/19 12:00 57 06/03/19 11:00 61 22 107/47 (67) 93 06/03/19 10:37 72 29 45 06/03/19 10:00 68 16 115/49 (71) 95 06/03/19 09:00 67 17 115/40 (65) 94 06/03/19 09:00 65 16 122/47 (72) 95 06/03/19 08:44 57 18 50 06/03/19 08:38 50 06/03/19 08:00 62 06/03/19 08:00 Mechanical Ventilator 06/03/19 08:00 97.5 62 18 117/56 (76) 98 06/03/19 08:00 60 06/03/19 07:23 91 21 99 Mechanical Ventilator 60 06/03/19 07:20 63 20 60 06/03/19 07:00 67 17 115/40 (65) 06/03/19 06:00 72 18 130/45 (73) 06/03/19 05:30 82 20 60 06/03/19 05:00 110 26 108/60 (76) 06/03/19 04:00 60 06/03/19 04:00 Mechanical Ventilator 06/03/19 04:00 60 06/03/19 04:00 98.5 59 15 97/42 (60) 99 06/03/19 03:00 67 22 106/50 (68) 98 06/03/19 03:00 64 19 60 06/03/19 02:00 68 28 112/41 (64) 99 06/03/19 01:07 98.5 06/03/19 01:00 98.5 66 20 122/42 (68) 99 06/03/19 00:59 62 19 60 06/03/19 00:00 72 25 109/43 (65) 99 06/03/19 00:00 64 06/03/19 00:00 60 06/03/19 00:00 Mechanical Ventilator 06/02/19 23:13 78 22 60 06/02/19 23:00 79 25 119/52 (74) 98 06/02/19 22:00 72 18 97/30 (52) 99 06/02/19 21:07 82 19 60 06/02/19 21:00 69 17 92/38 (56) 98 06/02/19 20:45 75 19 100/43 (62) 98 06/02/19 20:30 80 25 133/52 (79) 98 06/02/19 20:15 79 24 123/48 (73) 98 06/02/19 20:00 Mechanical Ventilator 06/02/19 20:00 73 06/02/19 20:00 60 06/02/19 20:00 98.4 74 23 125/47 (73) 98 06/02/19 19:20 100/43 06/02/19 19:00 68 17 111/42 (65) 97 06/02/19 18:47 71 22 60 06/02/19 18:00 80 26 101/46 (64) 100 06/02/19 17:10 75 27 60 06/02/19 17:00 64 26 115/39 (64) 96 06/02/19 16:00 71 06/02/19 16:00 97.0 62 8 107/40 (62) 97 06/02/19 16:00 Mechanical Ventilator 06/02/19 16:00 60 06/02/19 15:00 83 26 129/49 (75) 96 06/02/19 14:00 71 12 100/36 (57) 97 06/02/19 13:25 70 17 60 06/02/19 13:00 68 18 125/44 (71) 95 06/02/19 12:00 60 06/02/19 12:00 Mechanical Ventilator 06/02/19 12:00 98.6 67 21 105/38 (60) 95 06/02/19 12:00 72 06/02/19 11:13 69 17 65 06/02/19 11:00 66 18 90/36 (54) 95 Intake and Output 06/03/19 06/04/19 19:00 07:00 Intake Total 1527.21 ml 1130 ml Output Total 10 ml 0 ml Balance 1517.21 ml 1130 ml Free Water 30 ml 100 ml IV Total 667.21 ml 550 ml Tube Feeding 480 ml 480 ml Blood Product 250 ml Other 100 ml Output Urine Total 10 ml 0 ml # Bowel Movements 1 Labs Test 06/02/19 05:10 06/03/19 08:00 06/04/19 05:00 06/04/19 08:00 White Blood Count 9.5 K/UL (4.8-10.8) 6.3 K/UL (4.8-10.8) 7.8 K/UL (4.8-10.8) Red Blood Count 3.05 M/UL (4.70-6.10) 2.48 M/UL (4.70-6.10) 3.04 M/UL (4.70-6.10) Hemoglobin 9.2 G/DL (14.2-18.0) 7.5 G/DL (14.2-18.0) 9.3 G/DL (14.2-18.0) Hematocrit 28.1 % (42.0-52.0) 22.6 % (42.0-52.0) 27.5 % (42.0-52.0) Mean Corpuscular Volume 92 FL (80-99) 91 FL (80-99) 91 FL (80-99) Mean Corpuscular Hemoglobin 30.1 PG (27.0-31.0) 30.4 PG (27.0-31.0) 30.5 PG (27.0-31.0) Mean Corpuscular Hemoglobin Concent 32.7 G/DL (32.0-36.0) 33.4 G/DL (32.0-36.0) 33.7 G/DL (32.0-36.0) Red Cell Distribution Width 16.4 % (11.6-14.8) 16.0 % (11.6-14.8) 14.9 % (11.6-14.8) Platelet Count 208 K/UL (150-450) 132 K/UL (150-450) 146 K/UL (150-450) Mean Platelet Volume 5.1 FL (6.5-10.1) 5.0 FL (6.5-10.1) 5.3 FL (6.5-10.1) Neutrophils (%) (Auto) % (45.0-75.0) % (45.0-75.0) % (45.0-75.0) Lymphocytes (%) (Auto) % (20.0-45.0) % (20.0-45.0) % (20.0-45.0) Monocytes (%) (Auto) % (1.0-10.0) % (1.0-10.0) % (1.0-10.0) Eosinophils (%) (Auto) % (0.0-3.0) % (0.0-3.0) % (0.0-3.0) Basophils (%) (Auto) % (0.0-2.0) % (0.0-2.0) % (0.0-2.0) Prothrombin Time 11.8 SEC (9.30-11.50) Prothromb Time International Ratio 1.1 (0.9-1.1) Activated Partial Thromboplast Time 36 SEC (23-33) Sodium Level 136 MMOL/L (136-145) 135 MMOL/L (136-145) 137 MMOL/L (136-145) Potassium Level 3.9 MMOL/L (3.5-5.1) 3.4 MMOL/L (3.5-5.1) 3.2 MMOL/L (3.5-5.1) Chloride Level 103 MMOL/L (98-107) 104 MMOL/L (98-107) 105 MMOL/L (98-107) Carbon Dioxide Level 16 MMOL/L (21-32) 23 MMOL/L (21-32) 21 MMOL/L (21-32) Anion Gap 17 mmol/L (5-15) 8 mmol/L (5-15) 11 mmol/L (5-15) Blood Urea Nitrogen 80 mg/dL (7-18) 59 mg/dL (7-18) 64 mg/dL (7-18) Creatinine 5.4 MG/DL (0.55-1.30) 4.5 MG/DL (0.55-1.30) 4.8 MG/DL (0.55-1.30) Estimat Glomerular Filtration Rate mL/min (>60) mL/min (>60) mL/min (>60) Glucose Level 103 MG/DL (74-106) 146 MG/DL (74-106) 146 MG/DL (74-106) Uric Acid 7.1 MG/DL (2.6-7.2) 5.3 MG/DL (2.6-7.2) 5.2 MG/DL (2.6-7.2) Calcium Level 6.8 MG/DL (8.5-10.1) 6.6 MG/DL (8.5-10.1) 6.8 MG/DL (8.5-10.1) Phosphorus Level 6.4 MG/DL (2.5-4.9) 4.7 MG/DL (2.5-4.9) 4.0 MG/DL (2.5-4.9) Magnesium Level 2.0 MG/DL (1.8-2.4) 1.9 MG/DL (1.8-2.4) 2.0 MG/DL (1.8-2.4) Total Bilirubin 0.4 MG/DL (0.2-1.0) 0.2 MG/DL (0.2-1.0) 0.3 MG/DL (0.2-1.0) Aspartate Amino Transf (AST/SGOT) 25 U/L (15-37) 20 U/L (15-37) 23 U/L (15-37) Alanine Aminotransferase (ALT/SGPT) 17 U/L (12-78) 11 U/L (12-78) 16 U/L (12-78) Alkaline Phosphatase 57 U/L (46-116) 53 U/L (46-116) 52 U/L (46-116) C-Reactive Protein, Quantitative 8.1 mg/dL (0.00-0.90) 6.0 mg/dL (0.00-0.90) 6.3 mg/dL (0.00-0.90) Pro-B-Type Natriuretic Peptide 6721 pg/mL (0-125) 7239 pg/mL (0-125) 7273 pg/mL (0-125) Total Protein 5.3 G/DL (6.4-8.2) 4.6 G/DL (6.4-8.2) 5.0 G/DL (6.4-8.2) Albumin 1.7 G/DL (3.4-5.0) 1.3 G/DL (3.4-5.0) 1.5 G/DL (3.4-5.0) Globulin 3.6 g/dL 3.3 g/dL 3.5 g/dL Albumin/Globulin Ratio 0.5 (1.0-2.7) 0.4 (1.0-2.7) 0.4 (1.0-2.7) Random Vancomycin Level 21.1 ug/mL 19.6 ug/mL Differential Total Cells Counted 100 100 Neutrophils % (Manual) 92 % (45-75) 85 % (45-75) Lymphocytes % (Manual) 5 % (20-45) 8 % (20-45) Monocytes % (Manual) 3 % (1-10) 6 % (1-10) Eosinophils % (Manual) 0 % (0-3) 0 % (0-3) Basophils % (Manual) 0 % (0-2) 1 % (0-2) Band Neutrophils 0 % (0-8) 0 % (0-8) Platelet Estimate Decreased Decreased Platelet Morphology Normal Normal Anisocytosis 1+ 1+ Hypochromasia 2+ Height (Feet): 5 Height (Inches): 7.00 Weight (Pounds): 204 Objective PE: Vitals: reviewed General Appearance: NAD HEENT: normocephalic, atraumatic++ ngt Neck: non-tender, normal alignment Respiratory/Chest: VENT++ Cardiovascular/Chest: normal peripheral pulses, normal rate Abdomen: normal bowel sounds, soft, nontender Extremities: normal range of motion ++ right arm swelling Suleman Addison MD Jun 04, 2019 10:40
[2019-06-04] MEDS: D5NS 1,000 ML IV SCH (13:24)
[2019-06-04] MEDS: DAPTOmycin 500 MG in NS 55 ML IV SCH (13:24)
[2019-06-04] MEDS: Acetaminophen 650mg/20.3ml GT PRN (13:25)
--- NOTE | 2019-06-04 15:17 | Critical Care Progress Note ---
Assessment/Plan Assessment/Plan IMPRESSION AND PLAN: 1. Pneumonia. bilateral 2. Cellulitis. 3. History of COPD. 4. Hypertension. 5. Afib with RVR; rate controlled 6. Respiratory failure, acute 7. Hypoxemia, improved 8. Chronic renal failure 9. severe protein sabina malnutrition 10. chronic anemia PLAN vent support still too ill to wean try to taper oxygen - no on 100%, try to taper monitor imaging for change monitor imaging closely for improvement consider bronch and possibly biopsy if not improved skin care support as able in ICU feeds as able and monitor for residuals off load and monitor closely nutrition as able monitor protein levels and prealbumin follow up cxr with noted infiltrates check BNP medications/laboratory data/nursing notes/ICU care reviewed in detail note reviewed and edited care discussed with RN and RT ICU time spent 38 minutes Critical Care - Subjective Interval Events: still not improving now on 100% on full support Condition: critical EKG Rhythm: Sinus Rhythm I&O: Intake and Output 06/03/19 06/04/19 19:00 07:00 Intake Total 1527.21 ml 1170 ml Output Total 10 ml 0 ml Balance 1517.21 ml 1170 ml Free Water 30 ml 100 ml IV Total 667.21 ml 590 ml Tube Feeding 480 ml 480 ml Blood Product 250 ml Other 100 ml Output Urine Total 10 ml 0 ml # Bowel Movements 1 Critical Care - Objective ET-Tube: 7.5 ET Position: 25 Last 24 Hour Vital Signs Date Time Temp Pulse Resp B/P (MAP) Pulse Ox O2 Delivery O2 Flow Rate FiO2 06/04/19 14:41 64 30 40 06/04/19 13:55 99.3 06/04/19 13:00 67 26 156/61 (92) 96 06/04/19 12:56 65 27 50 06/04/19 12:00 60 06/04/19 12:00 66 06/04/19 12:00 Mechanical Ventilator 06/04/19 12:00 66 25 136/52 (80) 96 06/04/19 11:00 70 20 117/55 (75) 100 06/04/19 10:46 53 17 60 06/04/19 10:00 54 17 102/39 (60) 97 06/04/19 09:09 60 18 80 06/04/19 09:00 58 14 83/39 (54) 98 06/04/19 09:00 60 06/04/19 08:00 Mechanical Ventilator 06/04/19 08:00 80 06/04/19 08:00 99.3 57 8 86/35 (52) 98 06/04/19 07:14 65 27 40 06/04/19 07:00 62 22 152/49 (83) 91 06/04/19 06:00 60 22 103/39 (60) 91 06/04/19 05:30 80 29 40 06/04/19 05:00 75 19 148/77 (100) 85 06/04/19 04:00 98.6 57 0 96/38 (57) 06/04/19 04:00 63 06/04/19 04:00 40 06/04/19 04:00 Mechanical Ventilator 06/04/19 03:33 65 30 40 06/04/19 03:00 71 8 141/48 (79) 95 06/04/19 02:00 62 0 119/46 (70) 95 06/04/19 01:00 59 19 103/37 (59) 94 06/04/19 00:58 60 29 40 06/04/19 00:00 62 06/04/19 00:00 40 06/04/19 00:00 Mechanical Ventilator 06/04/19 00:00 98.2 60 0 106/41 (62) 94 06/03/19 23:42 66 30 40 06/03/19 23:00 64 5 126/47 (73) 94 06/03/19 22:00 62 0 110/46 (67) 06/03/19 21:20 66 30 40 06/03/19 21:00 66 20 128/50 (76) 95 06/03/19 20:00 98.2 61 24 105/41 (62) 96 06/03/19 20:00 Mechanical Ventilator 06/03/19 20:00 64 06/03/19 20:00 40 06/03/19 19:36 55 22 40 06/03/19 19:20 105/41 06/03/19 19:00 69 29 125/49 (74) 94 06/03/19 19:00 57 25 107/44 (65) 94 06/03/19 18:00 69 29 125/49 (74) 94 06/03/19 17:05 63 31 40 06/03/19 17:00 67 25 117/42 (67) 95 06/03/19 16:00 62 20 102/35 (57) 94 06/03/19 16:00 Mechanical Ventilator 06/03/19 15:24 65 Labs: Labs Test 06/02/19 05:10 06/03/19 08:00 06/04/19 05:00 06/04/19 08:00 White Blood Count 9.5 K/UL (4.8-10.8) 6.3 K/UL (4.8-10.8) 7.8 K/UL (4.8-10.8) Red Blood Count 3.05 M/UL (4.70-6.10) 2.48 M/UL (4.70-6.10) 3.04 M/UL (4.70-6.10) Hemoglobin 9.2 G/DL (14.2-18.0) 7.5 G/DL (14.2-18.0) 9.3 G/DL (14.2-18.0) Hematocrit 28.1 % (42.0-52.0) 22.6 % (42.0-52.0) 27.5 % (42.0-52.0) Mean Corpuscular Volume 92 FL (80-99) 91 FL (80-99) 91 FL (80-99) Mean Corpuscular Hemoglobin 30.1 PG (27.0-31.0) 30.4 PG (27.0-31.0) 30.5 PG (27.0-31.0) Mean Corpuscular Hemoglobin Concent 32.7 G/DL (32.0-36.0) 33.4 G/DL (32.0-36.0) 33.7 G/DL (32.0-36.0) Red Cell Distribution Width 16.4 % (11.6-14.8) 16.0 % (11.6-14.8) 14.9 % (11.6-14.8) Platelet Count 208 K/UL (150-450) 132 K/UL (150-450) 146 K/UL (150-450) Mean Platelet Volume 5.1 FL (6.5-10.1) 5.0 FL (6.5-10.1) 5.3 FL (6.5-10.1) Neutrophils (%) (Auto) % (45.0-75.0) % (45.0-75.0) % (45.0-75.0) Lymphocytes (%) (Auto) % (20.0-45.0) % (20.0-45.0) % (20.0-45.0) Monocytes (%) (Auto) % (1.0-10.0) % (1.0-10.0) % (1.0-10.0) Eosinophils (%) (Auto) % (0.0-3.0) % (0.0-3.0) % (0.0-3.0) Basophils (%) (Auto) % (0.0-2.0) % (0.0-2.0) % (0.0-2.0) Prothrombin Time 11.8 SEC (9.30-11.50) Prothromb Time International Ratio 1.1 (0.9-1.1) Activated Partial Thromboplast Time 36 SEC (23-33) Sodium Level 136 MMOL/L (136-145) 135 MMOL/L (136-145) 137 MMOL/L (136-145) Potassium Level 3.9 MMOL/L (3.5-5.1) 3.4 MMOL/L (3.5-5.1) 3.2 MMOL/L (3.5-5.1) Chloride Level 103 MMOL/L (98-107) 104 MMOL/L (98-107) 105 MMOL/L (98-107) Carbon Dioxide Level 16 MMOL/L (21-32) 23 MMOL/L (21-32) 21 MMOL/L (21-32) Anion Gap 17 mmol/L (5-15) 8 mmol/L (5-15) 11 mmol/L (5-15) Blood Urea Nitrogen 80 mg/dL (7-18) 59 mg/dL (7-18) 64 mg/dL (7-18) Creatinine 5.4 MG/DL (0.55-1.30) 4.5 MG/DL (0.55-1.30) 4.8 MG/DL (0.55-1.30) Estimat Glomerular Filtration Rate mL/min (>60) mL/min (>60) mL/min (>60) Glucose Level 103 MG/DL (74-106) 146 MG/DL (74-106) 146 MG/DL (74-106) Uric Acid 7.1 MG/DL (2.6-7.2) 5.3 MG/DL (2.6-7.2) 5.2 MG/DL (2.6-7.2) Calcium Level 6.8 MG/DL (8.5-10.1) 6.6 MG/DL (8.5-10.1) 6.8 MG/DL (8.5-10.1) Phosphorus Level 6.4 MG/DL (2.5-4.9) 4.7 MG/DL (2.5-4.9) 4.0 MG/DL (2.5-4.9) Magnesium Level 2.0 MG/DL (1.8-2.4) 1.9 MG/DL (1.8-2.4) 2.0 MG/DL (1.8-2.4) Total Bilirubin 0.4 MG/DL (0.2-1.0) 0.2 MG/DL (0.2-1.0) 0.3 MG/DL (0.2-1.0) Aspartate Amino Transf (AST/SGOT) 25 U/L (15-37) 20 U/L (15-37) 23 U/L (15-37) Alanine Aminotransferase (ALT/SGPT) 17 U/L (12-78) 11 U/L (12-78) 16 U/L (12-78) Alkaline Phosphatase 57 U/L (46-116) 53 U/L (46-116) 52 U/L (46-116) C-Reactive Protein, Quantitative 8.1 mg/dL (0.00-0.90) 6.0 mg/dL (0.00-0.90) 6.3 mg/dL (0.00-0.90) Pro-B-Type Natriuretic Peptide 6721 pg/mL (0-125) 7239 pg/mL (0-125) 7273 pg/mL (0-125) Total Protein 5.3 G/DL (6.4-8.2) 4.6 G/DL (6.4-8.2) 5.0 G/DL (6.4-8.2) Albumin 1.7 G/DL (3.4-5.0) 1.3 G/DL (3.4-5.0) 1.5 G/DL (3.4-5.0) Globulin 3.6 g/dL 3.3 g/dL 3.5 g/dL Albumin/Globulin Ratio 0.5 (1.0-2.7) 0.4 (1.0-2.7) 0.4 (1.0-2.7) Random Vancomycin Level 21.1 ug/mL 19.6 ug/mL Differential Total Cells Counted 100 100 Neutrophils % (Manual) 92 % (45-75) 85 % (45-75) Lymphocytes % (Manual) 5 % (20-45) 8 % (20-45) Monocytes % (Manual) 3 % (1-10) 6 % (1-10) Eosinophils % (Manual) 0 % (0-3) 0 % (0-3) Basophils % (Manual) 0 % (0-2) 1 % (0-2) Band Neutrophils 0 % (0-8) 0 % (0-8) Platelet Estimate Decreased Decreased Platelet Morphology Normal Normal Anisocytosis 1+ 1+ Hypochromasia 2+ Objective: WDWN NAD orally intubated and on vent as prior reduced breath sounds bilaterally with occ rhonchi [id number] without MRG NABS nontender no HSM; feeding tube in place no CC mild edema overall without change nonfocal reviewed and edited Accucheck: 130 Korey Mtz MD Jun 04, 2019 15:17
--- NOTE | 2019-06-04 15:23 | Surgery Progress Note ---
Surgery Progress Note Subjective Symptoms: worse Additional Comments labs noted ill appearing prognosis guarded Objective Last 24 Hour Vital Signs Date Time Temp Pulse Resp B/P (MAP) Pulse Ox O2 Delivery O2 Flow Rate FiO2 06/04/19 14:41 64 30 40 06/04/19 14:00 68 27 167/65 (99) 96 06/04/19 13:55 99.3 06/04/19 13:00 67 26 156/61 (92) 96 06/04/19 12:56 65 27 50 06/04/19 12:00 60 06/04/19 12:00 66 06/04/19 12:00 Mechanical Ventilator 06/04/19 12:00 66 25 136/52 (80) 96 06/04/19 11:00 70 20 117/55 (75) 100 06/04/19 10:46 53 17 60 06/04/19 10:00 54 17 102/39 (60) 97 06/04/19 09:09 60 18 80 06/04/19 09:00 58 14 83/39 (54) 98 06/04/19 09:00 60 06/04/19 08:00 Mechanical Ventilator 06/04/19 08:00 80 06/04/19 08:00 99.3 57 8 86/35 (52) 98 06/04/19 07:14 65 27 40 06/04/19 07:00 62 22 152/49 (83) 91 06/04/19 06:00 60 22 103/39 (60) 91 06/04/19 05:30 80 29 40 06/04/19 05:00 75 19 148/77 (100) 85 06/04/19 04:00 98.6 57 0 96/38 (57) 06/04/19 04:00 63 06/04/19 04:00 40 06/04/19 04:00 Mechanical Ventilator 06/04/19 03:33 65 30 40 06/04/19 03:00 71 8 141/48 (79) 95 06/04/19 02:00 62 0 119/46 (70) 95 06/04/19 01:00 59 19 103/37 (59) 94 06/04/19 00:58 60 29 40 06/04/19 00:00 62 06/04/19 00:00 40 06/04/19 00:00 Mechanical Ventilator 1/8/20 00:00 98.2 60 0 106/41 (62) 94 06/03/19 23:42 66 30 40 06/03/19 23:00 64 5 126/47 (73) 94 06/03/19 22:00 62 0 110/46 (67) 06/03/19 21:20 66 30 40 06/03/19 21:00 66 20 128/50 (76) 95 06/03/19 20:00 98.2 61 24 105/41 (62) 96 06/03/19 20:00 Mechanical Ventilator 06/03/19 20:00 64 06/03/19 20:00 40 06/03/19 19:36 55 22 40 06/03/19 19:20 105/41 06/03/19 19:00 69 29 125/49 (74) 94 06/03/19 19:00 57 25 107/44 (65) 94 06/03/19 18:00 69 29 125/49 (74) 94 06/03/19 17:05 63 31 40 06/03/19 17:00 67 25 117/42 (67) 95 06/03/19 16:00 62 20 102/35 (57) 94 06/03/19 16:00 Mechanical Ventilator 06/03/19 15:24 65 I&O Intake and Output 06/03/19 06/04/19 19:00 07:00 Intake Total 1527.21 ml 1170 ml Output Total 10 ml 0 ml Balance 1517.21 ml 1170 ml Free Water 30 ml 100 ml IV Total 667.21 ml 590 ml Tube Feeding 480 ml 480 ml Blood Product 250 ml Other 100 ml Output Urine Total 10 ml 0 ml # Bowel Movements 1 Dressing: other Wound: other Drains: other Cardiovascular: RSR Respiratory: decreased breath sounds Abdomen: soft, present bowel sounds, non-distended Extremities: no cyanosis Laboratory Tests Test 06/04/19 05:00 06/04/19 08:00 White Blood Count 7.8 K/UL (4.8-10.8) Red Blood Count 3.04 M/UL (4.70-6.10) L Hemoglobin 9.3 G/DL (14.2-18.0) L Hematocrit 27.5 % (42.0-52.0) L Mean Corpuscular Volume 91 FL (80-99) Mean Corpuscular Hemoglobin 30.5 PG (27.0-31.0) Mean Corpuscular Hemoglobin Concent 33.7 G/DL (32.0-36.0) Red Cell Distribution Width 14.9 % (11.6-14.8) H Platelet Count 146 K/UL (150-450) L Mean Platelet Volume 5.3 FL (6.5-10.1) L Neutrophils (%) (Auto) % (45.0-75.0) Lymphocytes (%) (Auto) % (20.0-45.0) Monocytes (%) (Auto) % (1.0-10.0) Eosinophils (%) (Auto) % (0.0-3.0) Basophils (%) (Auto) % (0.0-2.0) Differential Total Cells Counted 100 Neutrophils % (Manual) 85 % (45-75) H Lymphocytes % (Manual) 8 % (20-45) L Monocytes % (Manual) 6 % (1-10) Eosinophils % (Manual) 0 % (0-3) Basophils % (Manual) 1 % (0-2) Band Neutrophils 0 % (0-8) Platelet Estimate Decreased L Platelet Morphology Normal Hypochromasia 2+ Anisocytosis 1+ Sodium Level 137 MMOL/L (136-145) Potassium Level 3.2 MMOL/L (3.5-5.1) L Chloride Level 105 MMOL/L (98-107) Carbon Dioxide Level 21 MMOL/L (21-32) Anion Gap 11 mmol/L (5-15) Blood Urea Nitrogen 64 mg/dL (7-18) H Creatinine 4.8 MG/DL (0.55-1.30) H Estimat Glomerular Filtration Rate mL/min (>60) Glucose Level 146 MG/DL (74-106) H Uric Acid 5.2 MG/DL (2.6-7.2) Calcium Level 6.8 MG/DL (8.5-10.1) L Phosphorus Level 4.0 MG/DL (2.5-4.9) Magnesium Level 2.0 MG/DL (1.8-2.4) Total Bilirubin 0.3 MG/DL (0.2-1.0) Aspartate Amino Transf (AST/SGOT) 23 U/L (15-37) Alanine Aminotransferase (ALT/SGPT) 16 U/L (12-78) Alkaline Phosphatase 52 U/L (46-116) C-Reactive Protein, Quantitative 6.3 mg/dL (0.00-0.90) H Pro-B-Type Natriuretic Peptide 7273 pg/mL (0-125) H Total Protein 5.0 G/DL (6.4-8.2) L Albumin 1.5 G/DL (3.4-5.0) L Globulin 3.5 g/dL Albumin/Globulin Ratio 0.4 (1.0-2.7) L Random Vancomycin Level 19.6 ug/mL Hepatitis B Surface Antigen Pending Plan Problems: (1) Cellulitis of upper extremity Assessment & Plan: 84M with RUE cellulitis, edema, erythema. no drainage. has RUE picc line recommend removal of picc. removed at bedside by myself on 05/18. pressure held, hemostasis noted, dressings applied. cath tip sent for cultures DVT duplex studies with acute thrombus IV Abx as per ID UA pending Cx results keep RUE elevated on pillows okay for diet AM labs anticoagulation off load pressure for dti noted cellulitis and edema improved deteriorated intubated on vent support likely respiratory insufficiency labs ordered wean vent okay for tube feeds via ng - cont as tolerated wean vent am labs HD as per renal now with right IJ Temp HD cath will follow with recs thank you (2) Cellulitis Assessment & Plan: Pt presented on admission with reabsorbing blister lateral R heel. Base of injury indurated with delineated margins(L)4cm x (W)3cm.Non- blanching erythema Sacrum ,R and L buttocks(L)8.5cm x (W)9cm, with a partial thickness pressure injury noted to L buttocks. Base of wound is moist and viable (L)2.3cm x (W)3cm. Area around wound tender when minimally palpated. Pt noted to be wearing splint L foot. Per pt he fractured foot a few weeks ago. Splint removed to assess skin integrity. L heel and malleoli are pink and blanchable.Cavilon Skin Barrier applied to L heel and malleoli and each area covered with Optifoam drsg. Splint reapplied. No other skin concerns noted. unchanged Tx.Plan: Apply Moisture Barrier to Buttocks. Cover with Optifoam drsg. Changee very 3 days and prn. Apply Cavilon Skin Barrier to both heels. Cover each heel with Optifoam drsg. Change every 7 days and prn APM/SCOOBY Mattress overlay. Reposition at least every 2hours or as tolerated. Off-load heels with pillow. Bennett Logan Jun 04, 2019 15:23
--- NOTE | 2019-06-04 17:54 | Nephrology Progress Note ---
Assessment/Plan Problem List: (1) Renal failure (ARF), acute on chronic Assessment: Cr rising (2) Cellulitis of upper extremity (3) A-fib (4) Pneumonia (5) UTI (urinary tract infection) (6) Anemia Assessment: worsened (7) Hypothyroidism Assessment - KIMO on CKD - Urinary tract infection. - Anemia- - Dehydration. - Cellulitis of Upper extremity - HTN Plan dialysis done 06/02 - repeat 06/04 Transfuse one unit today PRBcs in ICU- intubated BP meds and Mind altering meds discontinued On midodrine check vanco levels - hold vanco doses previously: Per cardiology Anemia kumari- Avoid Nephrotoxics Per ID Allow CHANDA inhibitor to continue as long as renal function does not worsen. PICC line has been removed. CXR: Increased right pleural effusion and similar left pleural effusion. Increased interstitial and hazy opacities throughout the lungs. Subjective ROS Limited/Unobtainable: Yes Objective Objective Last 24 Hour Vital Signs Date Time Temp Pulse Resp B/P (MAP) Pulse Ox O2 Delivery O2 Flow Rate FiO2 06/04/19 17:24 56 30 100 06/04/19 17:00 56 15 141/50 (80) 100 06/04/19 16:00 50 06/04/19 16:00 Mechanical Ventilator 06/04/19 16:00 98.7 84 22 181/73 (109) 98 06/04/19 15:00 71 28 109/44 (65) 96 06/04/19 14:41 64 30 40 06/04/19 14:00 68 27 167/65 (99) 96 06/04/19 13:55 99.3 06/04/19 13:00 67 26 156/61 (92) 96 06/04/19 12:56 65 27 50 06/04/19 12:00 60 06/04/19 12:00 66 06/04/19 12:00 Mechanical Ventilator 06/04/19 12:00 66 25 136/52 (80) 96 06/04/19 11:00 70 20 117/55 (75) 100 06/04/19 10:46 53 17 60 06/04/19 10:00 54 17 102/39 (60) 97 06/04/19 09:09 60 18 80 06/04/19 09:00 58 14 83/39 (54) 98 06/04/19 09:00 60 06/04/19 08:00 Mechanical Ventilator 06/04/19 08:00 80 06/04/19 08:00 99.3 57 8 86/35 (52) 98 06/04/19 07:14 65 27 40 06/04/19 07:00 62 22 152/49 (83) 91 06/04/19 06:00 60 22 103/39 (60) 91 06/04/19 05:30 80 29 40 06/04/19 05:00 75 19 148/77 (100) 85 06/04/19 04:00 98.6 57 0 96/38 (57) 06/04/19 04:00 63 06/04/19 04:00 40 06/04/19 04:00 Mechanical Ventilator 06/04/19 03:33 65 30 40 06/04/19 03:00 71 8 141/48 (79) 95 06/04/19 02:00 62 0 119/46 (70) 95 06/04/19 01:00 59 19 103/37 (59) 94 06/04/19 00:58 60 29 40 06/04/19 00:00 62 06/04/19 00:00 40 06/04/19 00:00 Mechanical Ventilator 06/04/19 00:00 98.2 60 0 106/41 (62) 94 06/03/19 23:42 66 30 40 06/03/19 23:00 64 5 126/47 (73) 94 06/03/19 22:00 62 0 110/46 (67) 06/03/19 21:20 66 30 40 06/03/19 21:00 66 20 128/50 (76) 95 06/03/19 20:00 98.2 61 24 105/41 (62) 96 06/03/19 20:00 Mechanical Ventilator 06/03/19 20:00 64 06/03/19 20:00 40 06/03/19 19:36 55 22 40 06/03/19 19:20 105/41 06/03/19 19:00 69 29 125/49 (74) 94 06/03/19 19:00 57 25 107/44 (65) 94 06/03/19 18:00 69 29 125/49 (74) 94 Intake and Output 06/03/19 06/04/19 19:00 07:00 Intake Total 1527.21 ml 1170 ml Output Total 10 ml 0 ml Balance 1517.21 ml 1170 ml Free Water 30 ml 100 ml IV Total 667.21 ml 590 ml Tube Feeding 480 ml 480 ml Blood Product 250 ml Other 100 ml Output Urine Total 10 ml 0 ml # Bowel Movements 1 Laboratory Tests 06/04/19 05:00: White Blood Count 7.8, Red Blood Count 3.04L, Hemoglobin 9.3L, Hematocrit 27.5L , Mean Corpuscular Volume 91, Mean Corpuscular Hemoglobin 30.5, Mean Corpuscular Hemoglobin Concent 33.7, Red Cell Distribution Width 14.9H, Platelet Count 146L, Mean Platelet Volume 5.3L, Neutrophils (%) (Auto) , Lymphocytes (%) (Auto) , Monocytes (%) (Auto) , Eosinophils (%) (Auto) , Basophils (%) (Auto) , Differential Total Cells Counted 100, Neutrophils % ( Manual) 85H, Lymphocytes % (Manual) 8L, Monocytes % (Manual) 6, Eosinophils % ( Manual) 0, Basophils % (Manual) 1, Band Neutrophils 0, Platelet Estimate DecreasedL, Platelet Morphology Normal, Hypochromasia 2+, Anisocytosis 1+, Sodium Level 137, Potassium Level 3.2L, Chloride Level 105, Carbon Dioxide Level 21, Anion Gap 11, Blood Urea Nitrogen 64H, Creatinine 4.8H, Estimat Glomerular Filtration Rate , Glucose Level 146H, Uric Acid 5.2, Calcium Level 6.8L, Phosphorus Level 4.0, Magnesium Level 2.0, Total Bilirubin 0.3, Aspartate Amino Transf (AST/SGOT) 23, Alanine Aminotransferase (ALT/SGPT) 16, Alkaline Phosphatase 52, C-Reactive Protein, Quantitative 6.3H, Pro-B-Type Natriuretic Peptide 7273H, Total Protein 5.0L, Albumin 1.5L, Globulin 3.5, Albumin/Globulin Ratio 0.4L, Random Vancomycin Level 19.6 06/04/19 08:00: Hepatitis B Surface Antigen [Pending] Height (Feet): 5 Height (Inches): 7.00 Weight (Pounds): 204 General Appearance: no apparent distress Cardiovascular: bradycardia Respiratory/Chest: decreased breath sounds Abdomen: soft Objective no change Reinier Mera MD Jun 04, 2019 17:53
[2019-06-04] MEDS: Dyna-Hex 2% Top Sol 2oz TOPIC SCH (20:11)
--- NOTE | 2019-06-04 20:55 | General Progress Note ---
Assessment/Plan Problem List: (1) SOB (shortness of breath) ICD Codes: R06.02 - Shortness of breath SNOMED: 659117943 (2) Cellulitis ICD Codes: L03.90 - Cellulitis, unspecified SNOMED: 633119125 (3) Cellulitis of upper extremity ICD Codes: L03.119 - Cellulitis of unspecified part of limb SNOMED: 212469482 Qualifiers: Qualified Codes: L03.113 - Cellulitis of right upper limb (4) Renal insufficiency ICD Codes: N28.9 - Disorder of kidney and ureter, unspecified SNOMED: 005967551, 970313853 (5) Renal failure (ARF), acute on chronic ICD Codes: N17.9 - Acute kidney failure, unspecified; N18.9 - Chronic kidney disease, unspecified SNOMED: 806092045 (6) Anemia ICD Codes: D64.9 - Anemia, unspecified SNOMED: 045857710 (7) Hypothyroidism ICD Codes: E03.9 - Hypothyroidism, unspecified SNOMED: 33772861 (8) UTI (urinary tract infection) ICD Codes: N39.0 - Urinary tract infection, site not specified SNOMED: 48543648 Status: deteriorating Assessment/Plan: intubated not improving chf pna edema anemia hypothroid afebrile Subjective ROS Limited/Unobtainable: Yes Allergies: Coded Allergies: No Known Allergies (Unverified , 05/18/19) Objective Last 24 Hour Vital Signs Date Time Temp Pulse Resp B/P (MAP) Pulse Ox O2 Delivery O2 Flow Rate FiO2 06/04/19 19:20 134/44 06/04/19 19:11 62 18 100 06/04/19 18:00 60 16 130/61 (84) 100 06/04/19 17:24 56 30 100 06/04/19 17:00 56 15 141/50 (80) 100 06/04/19 16:00 50 06/04/19 16:00 Mechanical Ventilator 06/04/19 16:00 98.7 84 22 181/73 (109) 98 06/04/19 16:00 85 06/04/19 15:00 71 28 109/44 (65) 96 06/04/19 14:41 64 30 40 06/04/19 14:00 68 27 167/65 (99) 96 06/04/19 13:55 99.3 06/04/19 13:00 67 26 156/61 (92) 96 06/04/19 12:56 65 27 50 06/04/19 12:00 60 06/04/19 12:00 66 06/04/19 12:00 Mechanical Ventilator 06/04/19 12:00 66 25 136/52 (80) 96 06/04/19 11:00 70 20 117/55 (75) 100 06/04/19 10:46 53 17 60 06/04/19 10:00 54 17 102/39 (60) 97 06/04/19 09:09 60 18 80 06/04/19 09:00 58 14 83/39 (54) 98 06/04/19 09:00 60 06/04/19 08:00 Mechanical Ventilator 06/04/19 08:00 80 06/04/19 08:00 99.3 57 8 86/35 (52) 98 06/04/19 07:14 65 27 40 06/04/19 07:00 62 22 152/49 (83) 91 06/04/19 06:00 60 22 103/39 (60) 91 06/04/19 05:30 80 29 40 06/04/19 05:00 75 19 148/77 (100) 85 06/04/19 04:00 98.6 57 0 96/38 (57) 06/04/19 04:00 63 06/04/19 04:00 40 06/04/19 04:00 Mechanical Ventilator 06/04/19 03:33 65 30 40 06/04/19 03:00 71 8 141/48 (79) 95 06/04/19 02:00 62 0 119/46 (70) 95 06/04/19 01:00 59 19 103/37 (59) 94 06/04/19 00:58 60 29 40 06/04/19 00:00 62 06/04/19 00:00 40 06/04/19 00:00 Mechanical Ventilator 06/04/19 00:00 98.2 60 0 106/41 (62) 94 06/03/19 23:42 66 30 40 06/03/19 23:00 64 5 126/47 (73) 94 06/03/19 22:00 62 0 110/46 (67) 06/03/19 21:20 66 30 40 06/03/19 21:00 66 20 128/50 (76) 95 Intake and Output 06/03/19 06/04/19 19:00 07:00 Intake Total 1527.21 ml 1170 ml Output Total 10 ml 0 ml Balance 1517.21 ml 1170 ml Free Water 30 ml 100 ml IV Total 667.21 ml 590 ml Tube Feeding 480 ml 480 ml Blood Product 250 ml Other 100 ml Output Urine Total 10 ml 0 ml # Bowel Movements 1 Laboratory Tests 06/04/19 05:00: White Blood Count 7.8, Red Blood Count 3.04L, Hemoglobin 9.3L, Hematocrit 27.5L , Mean Corpuscular Volume 91, Mean Corpuscular Hemoglobin 30.5, Mean Corpuscular Hemoglobin Concent 33.7, Red Cell Distribution Width 14.9H, Platelet Count 146L, Mean Platelet Volume 5.3L, Neutrophils (%) (Auto) , Lymphocytes (%) (Auto) , Monocytes (%) (Auto) , Eosinophils (%) (Auto) , Basophils (%) (Auto) , Differential Total Cells Counted 100, Neutrophils % ( Manual) 85H, Lymphocytes % (Manual) 8L, Monocytes % (Manual) 6, Eosinophils % ( Manual) 0, Basophils % (Manual) 1, Band Neutrophils 0, Platelet Estimate DecreasedL, Platelet Morphology Normal, Hypochromasia 2+, Anisocytosis 1+, Sodium Level 137, Potassium Level 3.2L, Chloride Level 105, Carbon Dioxide Level 21, Anion Gap 11, Blood Urea Nitrogen 64H, Creatinine 4.8H, Estimat Glomerular Filtration Rate , Glucose Level 146H, Uric Acid 5.2, Calcium Level 6.8L, Phosphorus Level 4.0, Magnesium Level 2.0, Total Bilirubin 0.3, Aspartate Amino Transf (AST/SGOT) 23, Alanine Aminotransferase (ALT/SGPT) 16, Alkaline Phosphatase 52, C-Reactive Protein, Quantitative 6.3H, Pro-B-Type Natriuretic Peptide 7273H, Total Protein 5.0L, Albumin 1.5L, Globulin 3.5, Albumin/Globulin Ratio 0.4L, Random Vancomycin Level 19.6 06/04/19 08:00: Hepatitis B Surface Antigen [Pending] Height (Feet): 5 Height (Inches): 7.00 Weight (Pounds): 204 General Appearance: lethargic, confused Respiratory/Chest: rhonchi - bilaterally Joslyn Wiggins MD Jun 04, 2019 20:55
[2019-06-04] MEDS: Solu-MEDROL 125mg Inj IVP SCH (21:08)
--- NOTE | 2019-06-04 23:59 | Cardiology Progress Note ---
Assessment/Plan Assessment/Plan 1. Atrial fibrillation with rapid ventricular response, converted to sinus rhythm, continue amiodarone. 2. Septic shock, resolved, likely due to bilateral PNA, on midodrine. 3. Oliguric acute kidney injury, CXR shows B/L pulmonary edema, on HD. 4. Small pericardial effusion with pleural effusion, s/p HD. 5. B/L pleural effusion. Subjective Subjective Sinus bradycardia at rate of 48. Intubated. Objective Last 24 Hour Vital Signs Date Time Temp Pulse Resp B/P (MAP) Pulse Ox O2 Delivery O2 Flow Rate FiO2 06/04/19 23:22 48 16 80 06/04/19 23:00 51 16 113/40 (64) 100 06/04/19 22:00 56 15 134/46 (75) 98 06/04/19 21:23 50 06/04/19 21:00 58 14 126/45 (72) 100 06/04/19 20:56 56 20 100 06/04/19 20:00 97.6 62 15 149/55 (86) 06/04/19 20:00 50 06/04/19 20:00 58 06/04/19 20:00 Mechanical Ventilator 06/04/19 19:20 134/44 06/04/19 19:11 62 18 100 06/04/19 19:00 57 17 132/45 (74) 100 06/04/19 18:00 60 16 130/61 (84) 100 06/04/19 17:24 56 30 100 06/04/19 17:00 56 15 141/50 (80) 100 06/04/19 16:00 50 06/04/19 16:00 Mechanical Ventilator 06/04/19 16:00 98.7 84 22 181/73 (109) 98 06/04/19 16:00 85 06/04/19 15:00 71 28 109/44 (65) 96 06/04/19 14:41 64 30 40 06/04/19 14:00 68 27 167/65 (99) 96 06/04/19 13:55 99.3 06/04/19 13:00 67 26 156/61 (92) 96 06/04/19 12:56 65 27 50 06/04/19 12:00 60 06/04/19 12:00 66 06/04/19 12:00 Mechanical Ventilator 06/04/19 12:00 66 25 136/52 (80) 96 06/04/19 11:00 70 20 117/55 (75) 100 06/04/19 10:46 53 17 60 06/04/19 10:00 54 17 102/39 (60) 97 06/04/19 09:09 60 18 80 06/04/19 09:00 58 14 83/39 (54) 98 06/04/19 09:00 60 06/04/19 08:00 Mechanical Ventilator 06/04/19 08:00 80 06/04/19 08:00 99.3 57 8 86/35 (52) 98 06/04/19 07:14 65 27 40 06/04/19 07:00 62 22 152/49 (83) 91 06/04/19 06:00 60 22 103/39 (60) 91 06/04/19 05:30 80 29 40 06/04/19 05:00 75 19 148/77 (100) 85 06/04/19 04:00 98.6 57 0 96/38 (57) 06/04/19 04:00 63 06/04/19 04:00 40 06/04/19 04:00 Mechanical Ventilator 06/04/19 03:33 65 30 40 06/04/19 03:00 71 8 141/48 (79) 95 06/04/19 02:00 62 0 119/46 (70) 95 06/04/19 01:00 59 19 103/37 (59) 94 06/04/19 00:58 60 29 40 06/04/19 00:00 62 06/04/19 00:00 40 06/04/19 00:00 Mechanical Ventilator 06/04/19 00:00 98.2 60 0 106/41 (62) 94 Intake and Output 06/03/19 06/04/19 19:00 07:00 Intake Total 1527.21 ml 1170 ml Output Total 10 ml 0 ml Balance 1517.21 ml 1170 ml Free Water 30 ml 100 ml IV Total 667.21 ml 590 ml Tube Feeding 480 ml 480 ml Blood Product 250 ml Other 100 ml Output Urine Total 10 ml 0 ml # Bowel Movements 1 2D Echo: EF 65%,Mod AR,Elevated RAP, RVSP 30,Small pericardial eff, pleural effusion Laboratory Tests Test 06/04/19 05:00 06/04/19 08:00 White Blood Count 7.8 K/UL (4.8-10.8) Red Blood Count 3.04 M/UL (4.70-6.10) L Hemoglobin 9.3 G/DL (14.2-18.0) L Hematocrit 27.5 % (42.0-52.0) L Mean Corpuscular Volume 91 FL (80-99) Mean Corpuscular Hemoglobin 30.5 PG (27.0-31.0) Mean Corpuscular Hemoglobin Concent 33.7 G/DL (32.0-36.0) Red Cell Distribution Width 14.9 % (11.6-14.8) H Platelet Count 146 K/UL (150-450) L Mean Platelet Volume 5.3 FL (6.5-10.1) L Neutrophils (%) (Auto) % (45.0-75.0) Lymphocytes (%) (Auto) % (20.0-45.0) Monocytes (%) (Auto) % (1.0-10.0) Eosinophils (%) (Auto) % (0.0-3.0) Basophils (%) (Auto) % (0.0-2.0) Differential Total Cells Counted 100 Neutrophils % (Manual) 85 % (45-75) H Lymphocytes % (Manual) 8 % (20-45) L Monocytes % (Manual) 6 % (1-10) Eosinophils % (Manual) 0 % (0-3) Basophils % (Manual) 1 % (0-2) Band Neutrophils 0 % (0-8) Platelet Estimate Decreased L Platelet Morphology Normal Hypochromasia 2+ Anisocytosis 1+ Sodium Level 137 MMOL/L (136-145) Potassium Level 3.2 MMOL/L (3.5-5.1) L Chloride Level 105 MMOL/L (98-107) Carbon Dioxide Level 21 MMOL/L (21-32) Anion Gap 11 mmol/L (5-15) Blood Urea Nitrogen 64 mg/dL (7-18) H Creatinine 4.8 MG/DL (0.55-1.30) H Estimat Glomerular Filtration Rate mL/min (>60) Glucose Level 146 MG/DL (74-106) H Uric Acid 5.2 MG/DL (2.6-7.2) Calcium Level 6.8 MG/DL (8.5-10.1) L Phosphorus Level 4.0 MG/DL (2.5-4.9) Magnesium Level 2.0 MG/DL (1.8-2.4) Total Bilirubin 0.3 MG/DL (0.2-1.0) Aspartate Amino Transf (AST/SGOT) 23 U/L (15-37) Alanine Aminotransferase (ALT/SGPT) 16 U/L (12-78) Alkaline Phosphatase 52 U/L (46-116) C-Reactive Protein, Quantitative 6.3 mg/dL (0.00-0.90) H Pro-B-Type Natriuretic Peptide 7273 pg/mL (0-125) H Total Protein 5.0 G/DL (6.4-8.2) L Albumin 1.5 G/DL (3.4-5.0) L Globulin 3.5 g/dL Albumin/Globulin Ratio 0.4 (1.0-2.7) L Random Vancomycin Level 19.6 ug/mL Hepatitis B Surface Antigen Pending Objective HEENT: Atraumatic and normocephalic. Anicteric. Pupils are equal, round, and reactive to light and accommodation. Extraocular muscles intact. NECK: JVP less than 5 cm. No carotid bruit. Carotid upstroke is 2+ bilaterally. CARDIOVASCULAR: Normal S1, S2. Regular rate and rhythm. No murmurs, gallops, or rubs. PMI is at fourth intercostal space in the midclavicular line. LUNGS: Clear to auscultation bilaterally. Positive for wheezing. ABDOMEN: Soft, nontender, and nondistended. No hepatosplenomegaly. Positive bowel sounds. EXTREMITIES: No evidence of edema, clubbing, or cyanosis. Del Garcia MD Jun 04, 2019 23:59
[2019-06-05] VITALS (24 sets, daily range): BP systolic 89–156; BP diastolic 36–71
[2019-06-05] MEDS: Zosyn 2.25 gm in D5W 55ml IV SCH ×3 (03:39→20:25)
[2019-06-05] MEDS: Midodrine 10mg tab GT SCH ×3 (06:13→21:38)
[2019-06-05] MEDS: Pantoprazole Inj IVP SCH ×2 (08:18→21:24)
[2019-06-05] MEDS: Acetaminophen 650mg/20.3ml GT PRN (08:18)
[2019-06-05] MEDS: Solu-MEDROL 125mg Inj IVP SCH ×2 (08:18→21:25)
--- NOTE | 2019-06-05 08:50 | Critical Care Progress Note ---
Assessment/Plan Assessment/Plan IMPRESSION AND PLAN: 1. Pneumonia. bilateral 2. Cellulitis. 3. History of COPD. 4. Hypertension. 5. Afib with RVR; rate controlled 6. Respiratory failure, acute 7. Hypoxemia, improved 8. Chronic renal failure 9. severe protein sabina malnutrition 10. chronic anemia PLAN vent support o2 needs improved may try to wean monitor imaging closely for improvement support as able in ICU feeds as able and monitor for residuals off load and monitor closely nutrition as able monitor protein levels and prealbumin follow up cxr with noted infiltrates check BNP medications/laboratory data/nursing notes/ICU care reviewed in detail note reviewed and edited care discussed with RN and RT ICU time spent 40 minutes Critical Care - Subjective Interval Events: vent care noted fio2 improved ROS Limited/Unobtainable: Yes Condition: critical EKG Rhythm: Sinus Rhythm Residuals: minimal Tube Feeding Tolerated: yes I&O: Intake and Output 06/04/19 06/05/19 19:00 07:00 Intake Total 2120 ml 1030 ml Output Total 144 ml 100 ml Balance 1976 ml 930 ml Free Water 120 ml IV Total 520 ml 550 ml Tube Feeding 480 ml 480 ml Hemodialysis 1000 ml Output Urine Total 44 ml 0 ml Stool Total 100 ml 100 ml # Bowel Movements 1 Critical Care - Objective ET-Tube: 7.5 ET Position: 25 Last 24 Hour Vital Signs Date Time Temp Pulse Resp B/P (MAP) Pulse Ox O2 Delivery O2 Flow Rate FiO2 06/05/19 07:02 69 18 45 06/05/19 07:00 92 29 148/66 (93) 95 06/05/19 06:00 98 25 140/71 (94) 92 06/05/19 05:37 95 25 06/05/19 05:09 89 26 80 06/05/19 05:00 87 27 149/65 (93) 99 06/05/19 04:00 97.5 71 25 133/49 (77) 100 06/05/19 04:00 Mechanical Ventilator 06/05/19 04:00 84 06/05/19 04:00 50 06/05/19 03:04 66 22 80 06/05/19 03:00 66 22 130/47 (74) 100 06/05/19 02:00 52 16 108/39 (62) 100 06/05/19 01:20 52 16 80 06/05/19 01:00 53 16 112/39 (63) 100 06/05/19 00:00 98.6 51 16 124/57 (79) 100 06/05/19 00:00 52 06/05/19 00:00 Mechanical Ventilator 06/05/19 00:00 80 06/04/19 23:22 48 16 80 06/04/19 23:00 51 16 113/40 (64) 100 06/04/19 22:00 56 15 134/46 (75) 98 06/04/19 21:23 50 06/04/19 21:00 58 14 126/45 (72) 100 06/04/19 20:56 56 20 100 06/04/19 20:00 97.6 62 15 149/55 (86) 06/04/19 20:00 50 06/04/19 20:00 58 06/04/19 20:00 Mechanical Ventilator 06/04/19 19:20 134/44 06/04/19 19:11 62 18 100 06/04/19 19:00 57 17 132/45 (74) 100 06/04/19 18:00 60 16 130/61 (84) 100 06/04/19 17:24 56 30 100 06/04/19 17:00 56 15 141/50 (80) 100 06/04/19 16:00 50 06/04/19 16:00 Mechanical Ventilator 06/04/19 16:00 98.7 84 22 181/73 (109) 98 06/04/19 16:00 85 06/04/19 15:00 71 28 109/44 (65) 96 06/04/19 14:41 64 30 40 06/04/19 14:00 68 27 167/65 (99) 96 06/04/19 13:55 99.3 06/04/19 13:00 67 26 156/61 (92) 96 06/04/19 12:56 65 27 50 06/04/19 12:00 60 06/04/19 12:00 66 06/04/19 12:00 Mechanical Ventilator 06/04/19 12:00 66 25 136/52 (80) 96 06/04/19 11:00 70 20 117/55 (75) 100 06/04/19 10:46 53 17 60 06/04/19 10:00 54 17 102/39 (60) 97 06/04/19 09:09 60 18 80 06/04/19 09:00 58 14 83/39 (54) 98 06/04/19 09:00 60 Objective: WDWN NAD orally intubated and on vent as prior reduced breath sounds bilaterally with occ rhonchi [id number] without MRG NABS nontender no HSM; feeding tube in place no CC mild edema overall without change nonfocal reviewed and edited Accucheck: 130 Korey Mtz MD Jun 05, 2019 08:49
[2019-06-05] MEDS: Amiodarone 200mg tab GT SCH (09:00)
--- NOTE | 2019-06-05 09:57 | Nephrology Progress Note ---
Assessment/Plan Problem List: (1) Renal failure (ARF), acute on chronic Assessment: Cr rising (2) Cellulitis of upper extremity (3) A-fib (4) Pneumonia (5) UTI (urinary tract infection) (6) Anemia Assessment: worsened (7) Hypothyroidism Assessment - KIMO on CKD - Urinary tract infection. - Anemia- - Dehydration. - Cellulitis of Upper extremity - HTN Plan no labs today dialysis done 06/02 - repeat 06/04 and then 06/06 Transfuse one unit PRBcs in ICU- intubated BP meds and Mind altering meds discontinued On midodrine check vanco levels - hold vanco doses previously: Per cardiology Anemia kumari- Avoid Nephrotoxics Per ID Allow CHANDA inhibitor to continue as long as renal function does not worsen. PICC line has been removed. CXR: Increased right pleural effusion and similar left pleural effusion. Increased interstitial and hazy opacities throughout the lungs. Subjective ROS Limited/Unobtainable: Yes Objective Objective Last 24 Hour Vital Signs Date Time Temp Pulse Resp B/P (MAP) Pulse Ox O2 Delivery O2 Flow Rate FiO2 06/05/19 09:00 84 32 70 06/05/19 08:48 97.5 06/05/19 08:00 Mechanical Ventilator 06/05/19 08:00 45 06/05/19 08:00 59 06/05/19 07:02 69 18 45 06/05/19 07:00 92 29 148/66 (93) 95 06/05/19 06:00 98 25 140/71 (94) 92 06/05/19 05:37 95 25 06/05/19 05:09 89 26 80 06/05/19 05:00 87 27 149/65 (93) 99 06/05/19 04:00 97.5 71 25 133/49 (77) 100 06/05/19 04:00 Mechanical Ventilator 06/05/19 04:00 84 06/05/19 04:00 50 06/05/19 03:04 66 22 80 06/05/19 03:00 66 22 130/47 (74) 100 06/05/19 02:00 52 16 108/39 (62) 100 06/05/19 01:20 52 16 80 06/05/19 01:00 53 16 112/39 (63) 100 06/05/19 00:00 98.6 51 16 124/57 (79) 100 06/05/19 00:00 52 06/05/19 00:00 Mechanical Ventilator 06/05/19 00:00 80 06/04/19 23:22 48 16 80 06/04/19 23:00 51 16 113/40 (64) 100 06/04/19 22:00 56 15 134/46 (75) 98 06/04/19 21:23 50 06/04/19 21:00 58 14 126/45 (72) 100 06/04/19 20:56 56 20 100 06/04/19 20:00 97.6 62 15 149/55 (86) 06/04/19 20:00 50 06/04/19 20:00 58 06/04/19 20:00 Mechanical Ventilator 06/04/19 19:20 134/44 06/04/19 19:11 62 18 100 06/04/19 19:00 57 17 132/45 (74) 100 06/04/19 18:00 60 16 130/61 (84) 100 06/04/19 17:24 56 30 100 06/04/19 17:00 56 15 141/50 (80) 100 06/04/19 16:00 50 06/04/19 16:00 Mechanical Ventilator 06/04/19 16:00 98.7 84 22 181/73 (109) 98 06/04/19 16:00 85 06/04/19 15:00 71 28 109/44 (65) 96 06/04/19 14:41 64 30 40 06/04/19 14:00 68 27 167/65 (99) 96 06/04/19 13:00 67 26 156/61 (92) 96 06/04/19 12:56 65 27 50 06/04/19 12:00 60 06/04/19 12:00 66 06/04/19 12:00 Mechanical Ventilator 06/04/19 12:00 66 25 136/52 (80) 96 06/04/19 11:00 70 20 117/55 (75) 100 06/04/19 10:46 53 17 60 06/04/19 10:00 54 17 102/39 (60) 97 Intake and Output 06/04/19 06/05/19 19:00 07:00 Intake Total 2120 ml 1030 ml Output Total 144 ml 100 ml Balance 1976 ml 930 ml Free Water 120 ml IV Total 520 ml 550 ml Tube Feeding 480 ml 480 ml Hemodialysis 1000 ml Output Urine Total 44 ml 0 ml Stool Total 100 ml 100 ml # Bowel Movements 1 Laboratory Tests 06/05/19 09:45: White Blood Count [Pending], Red Blood Count [Pending], Hemoglobin [Pending], Hematocrit [Pending], Mean Corpuscular Volume [Pending], Mean Corpuscular Hemoglobin [Pending], Mean Corpuscular Hemoglobin Concent [Pending], Red Cell Distribution Width [Pending], Platelet Count [Pending], Mean Platelet Volume [ Pending], Neutrophils (%) (Auto) [Pending], Lymphocytes (%) (Auto) [Pending], Monocytes (%) (Auto) [Pending], Eosinophils (%) (Auto) [Pending], Basophils (%) (Auto) [Pending], Sodium Level [Pending], Potassium Level [Pending], Chloride Level [Pending], Carbon Dioxide Level [Pending], Blood Urea Nitrogen [Pending], Creatinine [Pending], Estimat Glomerular Filtration Rate [Pending], Glucose Level [Pending], Calcium Level [Pending], Phosphorus Level [Pending], Magnesium Level [Pending], Total Bilirubin [Pending], Aspartate Amino Transf (AST/SGOT) [ Pending], Alanine Aminotransferase (ALT/SGPT) [Pending], Alkaline Phosphatase [ Pending], C-Reactive Protein, Quantitative [Pending], Pro-B-Type Natriuretic Peptide [Pending], Total Protein [Pending], Albumin [Pending], Globulin [Pending ] Height (Feet): 5 Height (Inches): 7.00 Weight (Pounds): 201 General Appearance: no apparent distress EENT: other - intubated Cardiovascular: arrhythmia Respiratory/Chest: decreased breath sounds Abdomen: distended Objective no change Reinier Mera MD Jun 05, 2019 09:57
[2019-06-05 10:16] LABS: HEMATOCRIT 27.7 % (42.0-52.0); HEMOGLOBIN 9.3 G/DL (14.2-18.0); MEAN CORPUSCULAR VOLUME 89 FL (80-99); PLATELET COUNT 159 K/UL (150-450); RED BLOOD COUNT 3.11 M/UL (4.70-6.10); RED CELL DISTRIBUTION WIDTH 15.5 % (11.6-14.8); WHITE BLOOD COUNT 7.4 K/UL (4.8-10.8)
[2019-06-05 10:28] LABS: ALANINE AMINOTRANSFERASE 23 U/L (12-78); ALBUMIN 1.4 G/DL (3.4-5.0); ALBUMIN/GLOBULIN RATIO 0.4 (1.0-2.7); ALKALINE PHOSPHATASE 61 U/L (46-116); ANION GAP 10 mmol/L (5-15); ASPARTATE AMINO TRANSFERASE 54 U/L (15-37); BILIRUBIN,TOTAL 0.5 MG/DL (0.2-1.0); BLOOD UREA NITROGEN 60 mg/dL (7-18); CALCIUM 6.9 MG/DL (8.5-10.1); CARBON DIOXIDE 25 MMOL/L (21-32); CHLORIDE 102 MMOL/L (98-107); CREATININE 4.5 MG/DL (0.55-1.30); PHOSPHORUS 3.7 MG/DL (2.5-4.9); SODIUM 137 MMOL/L (136-145)
--- NOTE | 2019-06-05 11:12 | Infectious Diseases Prog Note ---
Assessment/Plan Assessment/Plan 84 yo male with PMHx of HTN who was sent to the ED on 05/18/19 from his custodial for possible picc line infection. Swelling around PICC line Minimal to no erythema and no purulent drainage Not likely to be infected Blood Cx 05/18/19 - NGTD PICC Tip Cx 05/18/19 - NGTD PICC line removed 05/18/19 No Leukocytosis No fever OM - Let foot On Vancomycin at nursing End date early May PNA on 8L NC CXR - Some LLL Atelectasis vs PNA, Nodules CT 05/20/19 - Bilateral upper lobe infiltrates worse on the right. Consider pneumonia. Bilateral pleural effusions moderate in size Sp Cx Marily HTN PLAN - CPK - Continue Daptomycin for OM End date per custodial MD - Continue Zosyn #10/10 for probable PNA - 05/28/19 SP Vancomycin per pharmacy - Stopped for increasing Cr - 05/27/19 SP Levofloxacin #5 - Get OSH records for OM - Monitor CBC and Temps Thank you for this consult. [facility] will continue to follow the patient with you during this hospitalization. Subjective Allergies: Coded Allergies: No Known Allergies (Unverified , 05/18/19) Subjective On Vent 60% O2 Afebrile No Leukocytosis Objective Vital Signs Last 24 Hour Vital Signs Date Time Temp Pulse Resp B/P (MAP) Pulse Ox O2 Delivery O2 Flow Rate FiO2 06/05/19 11:03 74 17 60 06/05/19 10:00 59 20 89/36 (53) 100 06/05/19 09:00 89 32 131/58 (82) 95 06/05/19 09:00 84 32 70 06/05/19 08:48 97.5 06/05/19 08:00 Mechanical Ventilator 06/05/19 08:00 98.1 84 32 139/57 (84) 95 06/05/19 08:00 45 06/05/19 08:00 59 06/05/19 07:02 69 18 45 06/05/19 07:00 92 29 148/66 (93) 95 06/05/19 06:00 98 25 140/71 (94) 92 06/05/19 05:37 95 25 06/05/19 05:09 89 26 80 06/05/19 05:00 87 27 149/65 (93) 99 06/05/19 04:00 97.5 71 25 133/49 (77) 100 06/05/19 04:00 Mechanical Ventilator 06/05/19 04:00 84 06/05/19 04:00 50 06/05/19 03:04 66 22 80 06/05/19 03:00 66 22 130/47 (74) 100 06/05/19 02:00 52 16 108/39 (62) 100 06/05/19 01:20 52 16 80 06/05/19 01:00 53 16 112/39 (63) 100 06/05/19 00:00 98.6 51 16 124/57 (79) 100 06/05/19 00:00 52 06/05/19 00:00 Mechanical Ventilator 06/05/19 00:00 80 06/04/19 23:22 48 16 80 06/04/19 23:00 51 16 113/40 (64) 100 06/04/19 22:00 56 15 134/46 (75) 98 06/04/19 21:23 50 06/04/19 21:00 58 14 126/45 (72) 100 06/04/19 20:56 56 20 100 06/04/19 20:00 97.6 62 15 149/55 (86) 06/04/19 20:00 50 06/04/19 20:00 58 06/04/19 20:00 Mechanical Ventilator 06/04/19 19:20 134/44 06/04/19 19:11 62 18 100 06/04/19 19:00 57 17 132/45 (74) 100 06/04/19 18:00 60 16 130/61 (84) 100 06/04/19 17:24 56 30 100 06/04/19 17:00 56 15 141/50 (80) 100 06/04/19 16:00 50 06/04/19 16:00 Mechanical Ventilator 06/04/19 16:00 98.7 84 22 181/73 (109) 98 06/04/19 16:00 85 06/04/19 15:00 71 28 109/44 (65) 96 06/04/19 14:41 64 30 40 06/04/19 14:00 68 27 167/65 (99) 96 06/04/19 13:00 67 26 156/61 (92) 96 1/8/20 12:56 65 27 50 06/04/19 12:00 60 06/04/19 12:00 66 06/04/19 12:00 Mechanical Ventilator 06/04/19 12:00 66 25 136/52 (80) 96 Height (Feet): 5 Height (Inches): 7.00 Weight (Pounds): 201 Objective Gen: Intubatd on vent HEENT: NCAT, MMM, EOMI LUNGS: Coarse B/L, Tight and wheezy CARDS: RRR, S1, S2 ABD: Soft, NT, ND Laboratory Tests Test 06/05/19 09:45 White Blood Count 7.4 K/UL (4.8-10.8) Red Blood Count 3.11 M/UL (4.70-6.10) L Hemoglobin 9.3 G/DL (14.2-18.0) L Hematocrit 27.7 % (42.0-52.0) L Mean Corpuscular Volume 89 FL (80-99) Mean Corpuscular Hemoglobin 30.1 PG (27.0-31.0) Mean Corpuscular Hemoglobin Concent 33.8 G/DL (32.0-36.0) Red Cell Distribution Width 15.5 % (11.6-14.8) H Platelet Count 159 K/UL (150-450) Mean Platelet Volume 5.8 FL (6.5-10.1) L Neutrophils (%) (Auto) % (45.0-75.0) Lymphocytes (%) (Auto) % (20.0-45.0) Monocytes (%) (Auto) % (1.0-10.0) Eosinophils (%) (Auto) % (0.0-3.0) Basophils (%) (Auto) % (0.0-2.0) Differential Total Cells Counted 100 Neutrophils % (Manual) 91 % (45-75) H Lymphocytes % (Manual) 4 % (20-45) L Monocytes % (Manual) 5 % (1-10) Eosinophils % (Manual) 0 % (0-3) Basophils % (Manual) 0 % (0-2) Band Neutrophils 0 % (0-8) Platelet Estimate Adequate Platelet Morphology Normal Anisocytosis 1+ Sodium Level 137 MMOL/L (136-145) Potassium Level 3.0 MMOL/L (3.5-5.1) L Chloride Level 102 MMOL/L (98-107) Carbon Dioxide Level 25 MMOL/L (21-32) Anion Gap 10 mmol/L (5-15) Blood Urea Nitrogen 60 mg/dL (7-18) H Creatinine 4.5 MG/DL (0.55-1.30) H Estimat Glomerular Filtration Rate mL/min (>60) Glucose Level 226 MG/DL (74-106) H Calcium Level 6.9 MG/DL (8.5-10.1) L Phosphorus Level 3.7 MG/DL (2.5-4.9) Magnesium Level 2.1 MG/DL (1.8-2.4) Total Bilirubin 0.5 MG/DL (0.2-1.0) Aspartate Amino Transf (AST/SGOT) 54 U/L (15-37) H Alanine Aminotransferase (ALT/SGPT) 23 U/L (12-78) Alkaline Phosphatase 61 U/L (46-116) C-Reactive Protein, Quantitative 4.9 mg/dL (0.00-0.90) H Pro-B-Type Natriuretic Peptide 7768 pg/mL (0-125) H Total Protein 5.1 G/DL (6.4-8.2) L Albumin 1.4 G/DL (3.4-5.0) L Globulin 3.7 g/dL Albumin/Globulin Ratio 0.4 (1.0-2.7) L Current Medications Medications (Trade) Dose Ordered Sig/Phillip Route PRN Reason Start Time Stop Time Status Last Admin Dose Admin Acetaminophen (Tylenol) 500 mg Q4H PRN GT Mild Pain/Temp > 100.5 05/27/19 07:45 06/19/19 20:29 06/05/19 08:18 Amiodarone HCl (Cordarone) 200 mg DAILY GT 06/03/19 09:00 07/03/19 08:59 06/04/19 09:26 Chlorhexidine Gluconate (Reina-Hex 2%) 1 applic DAILY@1999 TOPIC 05/27/19 20:00 06/26/19 19:59 06/04/19 20:11 Daptomycin 500 mg/ Sodium Chloride 55 ml @ 100 mls/hr Q48H IV 05/29/19 13:00 06/11/19 12:59 06/04/19 13:24 Dextrose/Sodium Chloride 1,000 ml @ 40 mls/hr Q24H IV 06/03/19 11:30 07/03/19 11:29 06/04/19 13:24 Methylprednisolone Sodium Succinate (Solu-MEDROL) 60 mg EVERY 12 HOURS IVP 06/04/19 21:00 07/04/19 20:59 06/05/19 08:18 Midodrine (Pro-Amatine) 10 mg Q8HR GT 06/03/19 14:00 07/03/19 13:59 06/05/19 06:13 Norepinephrine Bitartrate 4 mg/ Dextrose 250 ml @ 0 mls/hr Q24H IV 05/29/19 19:20 06/28/19 19:19 05/30/19 22:45 Pantoprazole (Protonix) 40 mg EVERY 12 HOURS IVP 05/27/19 10:45 06/26/19 10:44 06/05/19 08:18 Piperacillin Sod/ Tazobactam Sod 2.25 gm/Dextrose 55 ml @ 110 mls/hr Q8HR@0400,1200,2000 IV 06/03/19 12:00 06/10/19 11:59 06/05/19 03:39 Jimbo Dodd MD Jun 05, 2019 11:12
[2019-06-05] MEDS: D5NS 1,000 ML IV SCH (11:30)
--- NOTE | 2019-06-05 11:37 | General Progress Note ---
Assessment/Plan Problem List: (1) SOB (shortness of breath) ICD Codes: R06.02 - Shortness of breath SNOMED: 192905654 (2) Cellulitis ICD Codes: L03.90 - Cellulitis, unspecified SNOMED: 510850258 (3) Cellulitis of upper extremity ICD Codes: L03.119 - Cellulitis of unspecified part of limb SNOMED: 239855579 Qualifiers: Qualified Codes: L03.113 - Cellulitis of right upper limb (4) Renal insufficiency ICD Codes: N28.9 - Disorder of kidney and ureter, unspecified SNOMED: 389252334, 106991569 (5) Renal failure (ARF), acute on chronic ICD Codes: N17.9 - Acute kidney failure, unspecified; N18.9 - Chronic kidney disease, unspecified SNOMED: 740058558 (6) Anemia ICD Codes: D64.9 - Anemia, unspecified SNOMED: 243058050 (7) Hypothyroidism ICD Codes: E03.9 - Hypothyroidism, unspecified SNOMED: 50423778 (8) UTI (urinary tract infection) ICD Codes: N39.0 - Urinary tract infection, site not specified SNOMED: 04797338 Status: deteriorating Assessment/Plan: intubated have already consulted dr mally reed and dr lewis and dr foss for leg wounds and leg fracture chf lethargic lwound and le fracture Subjective ROS Limited/Unobtainable: Yes Allergies: Coded Allergies: No Known Allergies (Unverified , 05/18/19) Objective Last 24 Hour Vital Signs Date Time Temp Pulse Resp B/P (MAP) Pulse Ox O2 Delivery O2 Flow Rate FiO2 06/05/19 11:03 74 17 60 06/05/19 10:00 59 20 89/36 (53) 100 06/05/19 09:00 89 32 131/58 (82) 95 06/05/19 09:00 84 32 70 06/05/19 08:48 97.5 06/05/19 08:00 Mechanical Ventilator 06/05/19 08:00 98.1 84 32 139/57 (84) 95 06/05/19 08:00 45 06/05/19 08:00 59 06/05/19 07:02 69 18 45 06/05/19 07:00 92 29 148/66 (93) 95 06/05/19 06:00 98 25 140/71 (94) 92 06/05/19 05:37 95 25 06/05/19 05:09 89 26 80 06/05/19 05:00 87 27 149/65 (93) 99 06/05/19 04:00 97.5 71 25 133/49 (77) 100 06/05/19 04:00 Mechanical Ventilator 06/05/19 04:00 84 06/05/19 04:00 50 06/05/19 03:04 66 22 80 06/05/19 03:00 66 22 130/47 (74) 100 06/05/19 02:00 52 16 108/39 (62) 100 06/05/19 01:20 52 16 80 06/05/19 01:00 53 16 112/39 (63) 100 06/05/19 00:00 98.6 51 16 124/57 (79) 100 06/05/19 00:00 52 06/05/19 00:00 Mechanical Ventilator 06/05/19 00:00 80 06/04/19 23:22 48 16 80 06/04/19 23:00 51 16 113/40 (64) 100 06/04/19 22:00 56 15 134/46 (75) 98 06/04/19 21:23 50 06/04/19 21:00 58 14 126/45 (72) 100 06/04/19 20:56 56 20 100 06/04/19 20:00 97.6 62 15 149/55 (86) 06/04/19 20:00 50 06/04/19 20:00 58 06/04/19 20:00 Mechanical Ventilator 06/04/19 19:20 134/44 06/04/19 19:11 62 18 100 06/04/19 19:00 57 17 132/45 (74) 100 06/04/19 18:00 60 16 130/61 (84) 100 06/04/19 17:24 56 30 100 06/04/19 17:00 56 15 141/50 (80) 100 06/04/19 16:00 50 06/04/19 16:00 Mechanical Ventilator 06/04/19 16:00 98.7 84 22 181/73 (109) 98 06/04/19 16:00 85 06/04/19 15:00 71 28 109/44 (65) 96 06/04/19 14:41 64 30 40 06/04/19 14:00 68 27 167/65 (99) 96 06/04/19 13:00 67 26 156/61 (92) 96 06/04/19 12:56 65 27 50 06/04/19 12:00 60 06/04/19 12:00 66 06/04/19 12:00 Mechanical Ventilator 06/04/19 12:00 66 25 136/52 (80) 96 Intake and Output 06/04/19 06/05/19 19:00 07:00 Intake Total 2120 ml 1030 ml Output Total 144 ml 100 ml Balance 1976 ml 930 ml Free Water 120 ml IV Total 520 ml 550 ml Tube Feeding 480 ml 480 ml Hemodialysis 1000 ml Output Urine Total 44 ml 0 ml Stool Total 100 ml 100 ml # Bowel Movements 1 Laboratory Tests 06/05/19 09:45: White Blood Count 7.4, Red Blood Count 3.11L, Hemoglobin 9.3L, Hematocrit 27.7L , Mean Corpuscular Volume 89, Mean Corpuscular Hemoglobin 30.1, Mean Corpuscular Hemoglobin Concent 33.8, Red Cell Distribution Width 15.5H, Platelet Count 159, Mean Platelet Volume 5.8L, Neutrophils (%) (Auto) , Lymphocytes (%) (Auto) , Monocytes (%) (Auto) , Eosinophils (%) (Auto) , Basophils (%) (Auto) , Differential Total Cells Counted 100, Neutrophils % ( Manual) 91H, Lymphocytes % (Manual) 4L, Monocytes % (Manual) 5, Eosinophils % ( Manual) 0, Basophils % (Manual) 0, Band Neutrophils 0, Platelet Estimate Adequate, Platelet Morphology Normal, Anisocytosis 1+, Sodium Level 137, Potassium Level 3.0L, Chloride Level 102, Carbon Dioxide Level 25, Anion Gap 10 , Blood Urea Nitrogen 60H, Creatinine 4.5H, Estimat Glomerular Filtration Rate , Glucose Level 226H, Calcium Level 6.9L, Phosphorus Level 3.7, Magnesium Level 2.1, Total Bilirubin 0.5, Aspartate Amino Transf (AST/SGOT) 54H, Alanine Aminotransferase (ALT/SGPT) 23, Alkaline Phosphatase 61, C-Reactive Protein, Quantitative 4.9H, Pro-B-Type Natriuretic Peptide 7768H, Total Protein 5.1L, Albumin 1.4L, Globulin 3.7, Albumin/Globulin Ratio 0.4L Height (Feet): 5 Height (Inches): 7.00 Weight (Pounds): 201 General Appearance: lethargic, confused Joslyn Wiggins MD Jun 05, 2019 11:37
--- NOTE | 2019-06-05 11:40 | GI Progress Note ---
Assessment/Plan Problems: (1) Anemia ICD Codes: D64.9 - Anemia, unspecified SNOMED: 569244320 (2) Dysphagia ICD Codes: R13.10 - Dysphagia, unspecified SNOMED: 64311602, [id number] Status: unchanged Status Narrative Discussed with Dr. Lino. Assessment/Plan intubated in ICU NGTF fu pulm fu labs abx per ID on HD poor prognosis PEG if needed The patient was seen and examined at bedside and all new and available data was reviewed in the patients chart. I agree with the above findings, impression and plan. (Patient seen earlier today. Signature stamp does not reflect patient encounter time.). - Valentino Lino MD Subjective Subjective limited Objective Last 24 Hour Vital Signs Date Time Temp Pulse Resp B/P (MAP) Pulse Ox O2 Delivery O2 Flow Rate FiO2 06/05/19 11:03 74 17 60 06/05/19 10:00 59 20 89/36 (53) 100 06/05/19 09:00 89 32 131/58 (82) 95 06/05/19 09:00 84 32 70 06/05/19 08:48 97.5 06/05/19 08:00 Mechanical Ventilator 06/05/19 08:00 98.1 84 32 139/57 (84) 95 06/05/19 08:00 45 06/05/19 08:00 59 06/05/19 07:02 69 18 45 06/05/19 07:00 92 29 148/66 (93) 95 06/05/19 06:00 98 25 140/71 (94) 92 06/05/19 05:37 95 25 06/05/19 05:09 89 26 80 06/05/19 05:00 87 27 149/65 (93) 99 06/05/19 04:00 97.5 71 25 133/49 (77) 100 06/05/19 04:00 Mechanical Ventilator 06/05/19 04:00 84 06/05/19 04:00 50 06/05/19 03:04 66 22 80 06/05/19 03:00 66 22 130/47 (74) 100 06/05/19 02:00 52 16 108/39 (62) 100 06/05/19 01:20 52 16 80 06/05/19 01:00 53 16 112/39 (63) 100 06/05/19 00:00 98.6 51 16 124/57 (79) 100 06/05/19 00:00 52 06/05/19 00:00 Mechanical Ventilator 06/05/19 00:00 80 06/04/19 23:22 48 16 80 06/04/19 23:00 51 16 113/40 (64) 100 06/04/19 22:00 56 15 134/46 (75) 98 06/04/19 21:23 50 06/04/19 21:00 58 14 126/45 (72) 100 06/04/19 20:56 56 20 100 06/04/19 20:00 97.6 62 15 149/55 (86) 06/04/19 20:00 50 06/04/19 20:00 58 06/04/19 20:00 Mechanical Ventilator 06/04/19 19:20 134/44 06/04/19 19:11 62 18 100 06/04/19 19:00 57 17 132/45 (74) 100 06/04/19 18:00 60 16 130/61 (84) 100 06/04/19 17:24 56 30 100 06/04/19 17:00 56 15 141/50 (80) 100 06/04/19 16:00 50 06/04/19 16:00 Mechanical Ventilator 06/04/19 16:00 98.7 84 22 181/73 (109) 98 06/04/19 16:00 85 06/04/19 15:00 71 28 109/44 (65) 96 06/04/19 14:41 64 30 40 06/04/19 14:00 68 27 167/65 (99) 96 06/04/19 13:00 67 26 156/61 (92) 96 06/04/19 12:56 65 27 50 06/04/19 12:00 60 06/04/19 12:00 66 06/04/19 12:00 Mechanical Ventilator 06/04/19 12:00 66 25 136/52 (80) 96 Intake and Output 06/04/19 06/05/19 19:00 07:00 Intake Total 2120 ml 1030 ml Output Total 144 ml 100 ml Balance 1976 ml 930 ml Free Water 120 ml IV Total 520 ml 550 ml Tube Feeding 480 ml 480 ml Hemodialysis 1000 ml Output Urine Total 44 ml 0 ml Stool Total 100 ml 100 ml # Bowel Movements 1 Laboratory Tests Test 06/05/19 09:45 White Blood Count 7.4 K/UL (4.8-10.8) Red Blood Count 3.11 M/UL (4.70-6.10) L Hemoglobin 9.3 G/DL (14.2-18.0) L Hematocrit 27.7 % (42.0-52.0) L Mean Corpuscular Volume 89 FL (80-99) Mean Corpuscular Hemoglobin 30.1 PG (27.0-31.0) Mean Corpuscular Hemoglobin Concent 33.8 G/DL (32.0-36.0) Red Cell Distribution Width 15.5 % (11.6-14.8) H Platelet Count 159 K/UL (150-450) Mean Platelet Volume 5.8 FL (6.5-10.1) L Neutrophils (%) (Auto) % (45.0-75.0) Lymphocytes (%) (Auto) % (20.0-45.0) Monocytes (%) (Auto) % (1.0-10.0) Eosinophils (%) (Auto) % (0.0-3.0) Basophils (%) (Auto) % (0.0-2.0) Differential Total Cells Counted 100 Neutrophils % (Manual) 91 % (45-75) H Lymphocytes % (Manual) 4 % (20-45) L Monocytes % (Manual) 5 % (1-10) Eosinophils % (Manual) 0 % (0-3) Basophils % (Manual) 0 % (0-2) Band Neutrophils 0 % (0-8) Platelet Estimate Adequate Platelet Morphology Normal Anisocytosis 1+ Sodium Level 137 MMOL/L (136-145) Potassium Level 3.0 MMOL/L (3.5-5.1) L Chloride Level 102 MMOL/L (98-107) Carbon Dioxide Level 25 MMOL/L (21-32) Anion Gap 10 mmol/L (5-15) Blood Urea Nitrogen 60 mg/dL (7-18) H Creatinine 4.5 MG/DL (0.55-1.30) H Estimat Glomerular Filtration Rate mL/min (>60) Glucose Level 226 MG/DL (74-106) H Calcium Level 6.9 MG/DL (8.5-10.1) L Phosphorus Level 3.7 MG/DL (2.5-4.9) Magnesium Level 2.1 MG/DL (1.8-2.4) Total Bilirubin 0.5 MG/DL (0.2-1.0) Aspartate Amino Transf (AST/SGOT) 54 U/L (15-37) H Alanine Aminotransferase (ALT/SGPT) 23 U/L (12-78) Alkaline Phosphatase 61 U/L (46-116) C-Reactive Protein, Quantitative 4.9 mg/dL (0.00-0.90) H Pro-B-Type Natriuretic Peptide 7768 pg/mL (0-125) H Total Protein 5.1 G/DL (6.4-8.2) L Albumin 1.4 G/DL (3.4-5.0) L Globulin 3.7 g/dL Albumin/Globulin Ratio 0.4 (1.0-2.7) L Height (Feet): 5 Height (Inches): 7.00 Weight (Pounds): 201 Thais Aranda NP Jun 05, 2019 11:39
[2019-06-05] MEDS ORDERED: Tubing IV Blood Pump IV ONE (11:57)
[2019-06-05] MEDS ORDERED: 1/2 NS 1000ml IV ONE (11:57)
[2019-06-05] MEDS ORDERED: NS 275ml ONE (11:57)
[2019-06-05] MEDS ORDERED: Tubing IV Secondary IV ONE (11:57)
--- NOTE | 2019-06-05 12:44 | Diagnostic Imaging Report ---
Indication: Dyspnea Technique: One view of the chest Comparison: Post line placement radiograph 06/02/2019 Findings: Stable satisfactory positions of endotracheal tube, left jugular central venous catheter, right jugular temporary dialysis catheter. Bilateral interstitial and airspace disease persists. Chronic appearing volume loss and scarring in the right lung apex persists, unchanged. There is pleural fluid bilaterally Impression: Unchanged, over 3 days, findings as above.
--- NOTE | 2019-06-05 14:02 | Diagnostic Imaging Report ---
Indication: Acute renal failure Technique: Grayscale and duplex images of the kidneys, retroperitoneum, and bladder were obtained. Comparison: Of 14/08/2018 Findings: Right kidney measures 10 cm in length. Left kidney measures 10.2 cm in length. Both kidneys demonstrate normal echogenicity: Previously demonstrated increased renal echogenicity is not evident currently. No hydronephrosis. No focal abnormality. Normal inferior vena cava. Bladder is nondistended, contains a Polanco catheter is not well-demonstrated. There is ascites. There is bilateral pleural fluid Impression: Normal kidneys, negative for hydronephrosis Polanco catheter within the bladder Ascites and bilateral pleural effusions .
--- NOTE | 2019-06-05 15:27 | Hematology/Onc Progress Note ---
Assessment/Plan Assessment/Plan # Anemia of chronic disease due to underlying chronic medical issues, multifactorial v Gi bleed --> Anemia workup has been reviewed, rule out gi bleed --> No evidence of hemolysis is noted, peripheral smear has been reviewed. --> Hgb goal >7. Transfuse prn. --> Epogen or iron at this time is not particularly indicated --> Medications have been reviewed --> low threshold for gi evaluation in case has occult + --> hgb trend: 9.3-->9.7-->8.1-->7.6-->8-->9.4-->9.2->7.5-->9.3 --> transf 05/28/19 with 1 unit prbc, 1 unit on 06/03 --> transfusion is a emergency, no family, no poa, is okay to transfuse # Right upper arm extremity axillary vein dvt --> agree to continue eliquis ONCE bleeding resolved --> continue for total of minimum of 3 months --> rescan arm in 3 mo # Thrombocytopenia is due to infection, i.e. cellulitis of upper extremity, likely picc line infection --> as per id on ax --> picc off --> levoflox/vanc-->zosyn/vanc--> zosyn-->dapto/zosyn --> plt trend 208-->132-->146k-->159 # Renal insufficiency --> per Dr. Mera # Pneumonia --> abx per id # Dehydration. --> goal of euvolemia # Paroxysmal Atrial fibrillation with rapid ventricular response was on amiodarone gtt, now in sinus rhythm. --> per cards On PO amiodarone 200 bid, Lopressor 25 bid # Dysphagia with ng tube # Dvt ppx eliquis--> now on hold The timing of this note does not necessarily reflect the time of the patient was seen. Greatly appreciate consultation. Subjective Allergies: Coded Allergies: No Known Allergies (Unverified , 05/18/19) Subjective 05/24: awake and alert, v mask, labs reviewed, apixaban 05/25: as per gi, ngt and eliquis tolerated 05/26: pending clearance but still with ng and nonrebreather 05/27: hypoxic yesterday, deteriorated, coded, now intubated, icu, labs noted 05/28: icu, levophed gtt, hgb 7.6, repeat cbc 05/29: remains in the icu, given prbc last night, no bleeding 05/30: no events, no bleeding, ++ fredo and on pressor 05/31: intubated, bp better on pressor, no bleeding, coag ordered 06/02: reamins ill appearing, on vent, labs noted, on vent, poorly responsive 06/03: no events, no bleeding, labs noted, dw surgery, and Rn, monitoring plt 06/04: tolerating tube feeds, labs noted, in the icu 06/05: restraints, cxr unchanged, anticoagulants on hold until further notice Objective Objective Current Medications Medications (Trade) Dose Ordered Sig/Phillip Route PRN Reason Start Time Stop Time Status Last Admin Dose Admin Acetaminophen (Tylenol) 500 mg Q4H PRN GT Mild Pain/Temp > 100.5 05/27/19 07:45 06/19/19 20:29 06/05/19 08:18 Amiodarone HCl (Cordarone) 200 mg DAILY GT 06/03/19 09:00 07/03/19 08:59 06/04/19 09:26 Chlorhexidine Gluconate (Reina-Hex 2%) 1 applic DAILY@1999 TOPIC 05/27/19 20:00 06/26/19 19:59 06/04/19 20:11 Daptomycin 500 mg/ Sodium Chloride 55 ml @ 100 mls/hr Q48H IV 05/29/19 13:00 06/11/19 12:59 06/04/19 13:24 Dextrose/Sodium Chloride 1,000 ml @ 40 mls/hr Q24H IV 06/03/19 11:30 07/03/19 11:29 06/05/19 11:30 Methylprednisolone Sodium Succinate (Solu-MEDROL) 60 mg EVERY 12 HOURS IVP 06/04/19 21:00 07/04/19 20:59 06/05/19 08:18 Midodrine (Pro-Amatine) 10 mg Q8HR GT 06/03/19 14:00 07/03/19 13:59 06/05/19 06:13 Norepinephrine Bitartrate 4 mg/ Dextrose 250 ml @ 0 mls/hr Q24H IV 05/29/19 19:20 06/28/19 19:19 05/30/19 22:45 Pantoprazole (Protonix) 40 mg EVERY 12 HOURS IVP 05/27/19 10:45 06/26/19 10:44 06/05/19 08:18 Piperacillin Sod/ Tazobactam Sod 2.25 gm/Dextrose 55 ml @ 110 mls/hr Q8HR@0400,1200,2000 IV 06/03/19 12:00 06/10/19 11:59 06/05/19 12:16 Last 24 Hour Vital Signs Date Time Temp Pulse Resp B/P (MAP) Pulse Ox O2 Delivery O2 Flow Rate FiO2 06/05/19 15:00 65 24 106/41 (62) 99 06/05/19 14:00 98.3 53 18 125/43 (70) 98 06/05/19 13:20 92 23 50 06/05/19 13:00 91 28 149/60 (89) 99 06/05/19 12:00 45 06/05/19 12:00 74 26 121/44 (69) 99 06/05/19 12:00 84 06/05/19 12:00 Mechanical Ventilator 06/05/19 11:03 74 17 60 06/05/19 11:00 67 23 108/39 (62) 97 06/05/19 10:00 59 20 89/36 (53) 100 06/05/19 09:00 89 32 131/58 (82) 95 06/05/19 09:00 84 32 70 06/05/19 08:48 97.5 06/05/19 08:00 Mechanical Ventilator 06/05/19 08:00 98.1 84 32 139/57 (84) 95 06/05/19 08:00 45 06/05/19 08:00 59 06/05/19 07:02 69 18 45 06/05/19 07:00 92 29 148/66 (93) 95 06/05/19 06:00 98 25 140/71 (94) 92 06/05/19 05:37 95 25 06/05/19 05:09 89 26 80 06/05/19 05:00 87 27 149/65 (93) 99 06/05/19 04:00 97.5 71 25 133/49 (77) 100 06/05/19 04:00 Mechanical Ventilator 06/05/19 04:00 84 06/05/19 04:00 50 06/05/19 03:04 66 22 80 06/05/19 03:00 66 22 130/47 (74) 100 06/05/19 02:00 52 16 108/39 (62) 100 06/05/19 01:20 52 16 80 06/05/19 01:00 53 16 112/39 (63) 100 06/05/19 00:00 98.6 51 16 124/57 (79) 100 06/05/19 00:00 52 06/05/19 00:00 Mechanical Ventilator 06/05/19 00:00 80 06/04/19 23:22 48 16 80 06/04/19 23:00 51 16 113/40 (64) 100 06/04/19 22:00 56 15 134/46 (75) 98 06/04/19 21:23 50 06/04/19 21:00 58 14 126/45 (72) 100 06/04/19 20:56 56 20 100 06/04/19 20:00 97.6 62 15 149/55 (86) 06/04/19 20:00 50 06/04/19 20:00 58 06/04/19 20:00 Mechanical Ventilator 06/04/19 19:20 134/44 06/04/19 19:11 62 18 100 06/04/19 19:00 57 17 132/45 (74) 100 06/04/19 18:00 60 16 130/61 (84) 100 06/04/19 17:24 56 30 100 06/04/19 17:00 56 15 141/50 (80) 100 06/04/19 16:00 50 06/04/19 16:00 Mechanical Ventilator 06/04/19 16:00 98.7 84 22 181/73 (109) 98 06/04/19 16:00 85 06/04/19 15:00 71 28 109/44 (65) 96 06/04/19 14:41 64 30 40 06/04/19 14:00 68 27 167/65 (99) 96 06/04/19 13:00 67 26 156/61 (92) 96 06/04/19 12:56 65 27 50 06/04/19 12:00 60 06/04/19 12:00 66 06/04/19 12:00 Mechanical Ventilator 06/04/19 12:00 66 25 136/52 (80) 96 06/04/19 11:00 70 20 117/55 (75) 100 06/04/19 10:46 53 17 60 06/04/19 10:00 54 17 102/39 (60) 97 06/04/19 09:09 60 18 80 06/04/19 09:00 58 14 83/39 (54) 98 06/04/19 09:00 60 06/04/19 08:00 Mechanical Ventilator 06/04/19 08:00 80 06/04/19 08:00 99.3 57 8 86/35 (52) 98 06/04/19 07:14 65 27 40 06/04/19 07:00 62 22 152/49 (83) 91 06/04/19 06:00 60 22 103/39 (60) 91 06/04/19 05:30 80 29 40 06/04/19 05:00 75 19 148/77 (100) 85 06/04/19 04:00 98.6 57 0 96/38 (57) 06/04/19 04:00 63 06/04/19 04:00 40 06/04/19 04:00 Mechanical Ventilator 06/04/19 03:33 65 30 40 06/04/19 03:00 71 8 141/48 (79) 95 06/04/19 02:00 62 0 119/46 (70) 95 06/04/19 01:00 59 19 103/37 (59) 94 06/04/19 00:58 60 29 40 06/04/19 00:00 62 06/04/19 00:00 40 06/04/19 00:00 Mechanical Ventilator 06/04/19 00:00 98.2 60 0 106/41 (62) 94 06/03/19 23:42 66 30 40 06/03/19 23:00 64 5 126/47 (73) 94 06/03/19 22:00 62 0 110/46 (67) 06/03/19 21:20 66 30 40 06/03/19 21:00 66 20 128/50 (76) 95 06/03/19 20:00 98.2 61 24 105/41 (62) 96 06/03/19 20:00 Mechanical Ventilator 06/03/19 20:00 64 06/03/19 20:00 40 06/03/19 19:36 55 22 40 06/03/19 19:20 105/41 06/03/19 19:00 69 29 125/49 (74) 94 06/03/19 19:00 57 25 107/44 (65) 94 06/03/19 18:00 69 29 125/49 (74) 94 06/03/19 17:05 63 31 40 06/03/19 17:00 67 25 117/42 (67) 95 06/03/19 16:00 62 20 102/35 (57) 94 06/03/19 16:00 Mechanical Ventilator 06/03/19 15:24 65 Intake and Output 06/04/19 06/05/19 19:00 07:00 Intake Total 2120 ml 1030 ml Output Total 144 ml 100 ml Balance 1976 ml 930 ml Free Water 120 ml IV Total 520 ml 550 ml Tube Feeding 480 ml 480 ml Hemodialysis 1000 ml Output Urine Total 44 ml 0 ml Stool Total 100 ml 100 ml # Bowel Movements 1 Labs Test 06/03/19 08:00 06/04/19 05:00 06/04/19 08:00 06/05/19 09:45 White Blood Count 6.3 K/UL (4.8-10.8) 7.8 K/UL (4.8-10.8) 7.4 K/UL (4.8-10.8) Red Blood Count 2.48 M/UL (4.70-6.10) 3.04 M/UL (4.70-6.10) 3.11 M/UL (4.70-6.10) Hemoglobin 7.5 G/DL (14.2-18.0) 9.3 G/DL (14.2-18.0) 9.3 G/DL (14.2-18.0) Hematocrit 22.6 % (42.0-52.0) 27.5 % (42.0-52.0) 27.7 % (42.0-52.0) Mean Corpuscular Volume 91 FL (80-99) 91 FL (80-99) 89 FL (80-99) Mean Corpuscular Hemoglobin 30.4 PG (27.0-31.0) 30.5 PG (27.0-31.0) 30.1 PG (27.0-31.0) Mean Corpuscular Hemoglobin Concent 33.4 G/DL (32.0-36.0) 33.7 G/DL (32.0-36.0) 33.8 G/DL (32.0-36.0) Red Cell Distribution Width 16.0 % (11.6-14.8) 14.9 % (11.6-14.8) 15.5 % (11.6-14.8) Platelet Count 132 K/UL (150-450) 146 K/UL (150-450) 159 K/UL (150-450) Mean Platelet Volume 5.0 FL (6.5-10.1) 5.3 FL (6.5-10.1) 5.8 FL (6.5-10.1) Neutrophils (%) (Auto) % (45.0-75.0) % (45.0-75.0) % (45.0-75.0) Lymphocytes (%) (Auto) % (20.0-45.0) % (20.0-45.0) % (20.0-45.0) Monocytes (%) (Auto) % (1.0-10.0) % (1.0-10.0) % (1.0-10.0) Eosinophils (%) (Auto) % (0.0-3.0) % (0.0-3.0) % (0.0-3.0) Basophils (%) (Auto) % (0.0-2.0) % (0.0-2.0) % (0.0-2.0) Differential Total Cells Counted 100 100 100 Neutrophils % (Manual) 92 % (45-75) 85 % (45-75) 91 % (45-75) Lymphocytes % (Manual) 5 % (20-45) 8 % (20-45) 4 % (20-45) Monocytes % (Manual) 3 % (1-10) 6 % (1-10) 5 % (1-10) Eosinophils % (Manual) 0 % (0-3) 0 % (0-3) 0 % (0-3) Basophils % (Manual) 0 % (0-2) 1 % (0-2) 0 % (0-2) Band Neutrophils 0 % (0-8) 0 % (0-8) 0 % (0-8) Platelet Estimate Decreased Decreased Adequate Platelet Morphology Normal Normal Normal Anisocytosis 1+ 1+ 1+ Sodium Level 135 MMOL/L (136-145) 137 MMOL/L (136-145) 137 MMOL/L (136-145) Potassium Level 3.4 MMOL/L (3.5-5.1) 3.2 MMOL/L (3.5-5.1) 3.0 MMOL/L (3.5-5.1) Chloride Level 104 MMOL/L (98-107) 105 MMOL/L (98-107) 102 MMOL/L (98-107) Carbon Dioxide Level 23 MMOL/L (21-32) 21 MMOL/L (21-32) 25 MMOL/L (21-32) Anion Gap 8 mmol/L (5-15) 11 mmol/L (5-15) 10 mmol/L (5-15) Blood Urea Nitrogen 59 mg/dL (7-18) 64 mg/dL (7-18) 60 mg/dL (7-18) Creatinine 4.5 MG/DL (0.55-1.30) 4.8 MG/DL (0.55-1.30) 4.5 MG/DL (0.55-1.30) Estimat Glomerular Filtration Rate mL/min (>60) mL/min (>60) mL/min (>60) Glucose Level 146 MG/DL (74-106) 146 MG/DL (74-106) 226 MG/DL (74-106) Uric Acid 5.3 MG/DL (2.6-7.2) 5.2 MG/DL (2.6-7.2) Calcium Level 6.6 MG/DL (8.5-10.1) 6.8 MG/DL (8.5-10.1) 6.9 MG/DL (8.5-10.1) Phosphorus Level 4.7 MG/DL (2.5-4.9) 4.0 MG/DL (2.5-4.9) 3.7 MG/DL (2.5-4.9) Magnesium Level 1.9 MG/DL (1.8-2.4) 2.0 MG/DL (1.8-2.4) 2.1 MG/DL (1.8-2.4) Total Bilirubin 0.2 MG/DL (0.2-1.0) 0.3 MG/DL (0.2-1.0) 0.5 MG/DL (0.2-1.0) Aspartate Amino Transf (AST/SGOT) 20 U/L (15-37) 23 U/L (15-37) 54 U/L (15-37) Alanine Aminotransferase (ALT/SGPT) 11 U/L (12-78) 16 U/L (12-78) 23 U/L (12-78) Alkaline Phosphatase 53 U/L (46-116) 52 U/L (46-116) 61 U/L (46-116) C-Reactive Protein, Quantitative 6.0 mg/dL (0.00-0.90) 6.3 mg/dL (0.00-0.90) 4.9 mg/dL (0.00-0.90) Pro-B-Type Natriuretic Peptide 7239 pg/mL (0-125) 7273 pg/mL (0-125) 7768 pg/mL (0-125) Total Protein 4.6 G/DL (6.4-8.2) 5.0 G/DL (6.4-8.2) 5.1 G/DL (6.4-8.2) Albumin 1.3 G/DL (3.4-5.0) 1.5 G/DL (3.4-5.0) 1.4 G/DL (3.4-5.0) Globulin 3.3 g/dL 3.5 g/dL 3.7 g/dL Albumin/Globulin Ratio 0.4 (1.0-2.7) 0.4 (1.0-2.7) 0.4 (1.0-2.7) Hypochromasia 2+ Random Vancomycin Level 19.6 ug/mL Height (Feet): 5 Height (Inches): 7.00 Weight (Pounds): 201 Objective PE: Vitals: reviewed General Appearance: NAD HEENT: normocephalic, atraumatic++ ngt Neck: non-tender, normal alignment Respiratory/Chest: VENT++ Cardiovascular/Chest: normal peripheral pulses, normal rate Abdomen: normal bowel sounds, soft, nontender Extremities: normal range of motion ++ right arm swelling Suleman Addison MD Jun 05, 2019 15:27
--- NOTE | 2019-06-05 17:43 | Surgery Progress Note ---
Surgery Progress Note Subjective Additional Comments still very ill labs reviewed exam performed Objective Last 24 Hour Vital Signs Date Time Temp Pulse Resp B/P (MAP) Pulse Ox O2 Delivery O2 Flow Rate FiO2 06/05/19 17:05 74 26 40 06/05/19 16:00 Mechanical Ventilator 06/05/19 16:00 50 06/05/19 15:00 65 24 106/41 (62) 99 06/05/19 14:00 98.3 53 18 125/43 (70) 98 06/05/19 13:20 92 23 50 06/05/19 13:00 91 28 149/60 (89) 99 06/05/19 12:00 45 06/05/19 12:00 74 26 121/44 (69) 99 06/05/19 12:00 84 06/05/19 12:00 Mechanical Ventilator 06/05/19 11:03 74 17 60 06/05/19 11:00 67 23 108/39 (62) 97 06/05/19 10:00 59 20 89/36 (53) 100 06/05/19 09:00 89 32 131/58 (82) 95 06/05/19 09:00 84 32 70 06/05/19 08:48 97.5 06/05/19 08:00 Mechanical Ventilator 06/05/19 08:00 98.1 84 32 139/57 (84) 95 06/05/19 08:00 45 06/05/19 08:00 59 06/05/19 07:02 69 18 45 06/05/19 07:00 92 29 148/66 (93) 95 06/05/19 06:00 98 25 140/71 (94) 92 06/05/19 05:37 95 25 06/05/19 05:09 89 26 80 06/05/19 05:00 87 27 149/65 (93) 99 06/05/19 04:00 97.5 71 25 133/49 (77) 100 06/05/19 04:00 Mechanical Ventilator 06/05/19 04:00 84 06/05/19 04:00 50 06/05/19 03:04 66 22 80 06/05/19 03:00 66 22 130/47 (74) 100 06/05/19 02:00 52 16 108/39 (62) 100 06/05/19 01:20 52 16 80 06/05/19 01:00 53 16 112/39 (63) 100 06/05/19 00:00 98.6 51 16 124/57 (79) 100 06/05/19 00:00 52 06/05/19 00:00 Mechanical Ventilator 06/05/19 00:00 80 06/04/19 23:22 48 16 80 06/04/19 23:00 51 16 113/40 (64) 100 06/04/19 22:00 56 15 134/46 (75) 98 06/04/19 21:23 50 06/04/19 21:00 58 14 126/45 (72) 100 06/04/19 20:56 56 20 100 06/04/19 20:00 97.6 62 15 149/55 (86) 06/04/19 20:00 50 06/04/19 20:00 58 06/04/19 20:00 Mechanical Ventilator 06/04/19 19:20 134/44 06/04/19 19:11 62 18 100 06/04/19 19:00 57 17 132/45 (74) 100 06/04/19 18:00 60 16 130/61 (84) 100 I&O Intake and Output 06/04/19 06/05/19 19:00 07:00 Intake Total 2120 ml 1030 ml Output Total 144 ml 100 ml Balance 1976 ml 930 ml Free Water 120 ml IV Total 520 ml 550 ml Tube Feeding 480 ml 480 ml Hemodialysis 1000 ml Output Urine Total 44 ml 0 ml Stool Total 100 ml 100 ml # Bowel Movements 1 Dressing: other Wound: other Drains: other Cardiovascular: RSR Respiratory: decreased breath sounds Abdomen: soft, present bowel sounds, non-distended Extremities: no cyanosis Laboratory Tests Test 06/05/19 09:45 White Blood Count 7.4 K/UL (4.8-10.8) Red Blood Count 3.11 M/UL (4.70-6.10) L Hemoglobin 9.3 G/DL (14.2-18.0) L Hematocrit 27.7 % (42.0-52.0) L Mean Corpuscular Volume 89 FL (80-99) Mean Corpuscular Hemoglobin 30.1 PG (27.0-31.0) Mean Corpuscular Hemoglobin Concent 33.8 G/DL (32.0-36.0) Red Cell Distribution Width 15.5 % (11.6-14.8) H Platelet Count 159 K/UL (150-450) Mean Platelet Volume 5.8 FL (6.5-10.1) L Neutrophils (%) (Auto) % (45.0-75.0) Lymphocytes (%) (Auto) % (20.0-45.0) Monocytes (%) (Auto) % (1.0-10.0) Eosinophils (%) (Auto) % (0.0-3.0) Basophils (%) (Auto) % (0.0-2.0) Differential Total Cells Counted 100 Neutrophils % (Manual) 91 % (45-75) H Lymphocytes % (Manual) 4 % (20-45) L Monocytes % (Manual) 5 % (1-10) Eosinophils % (Manual) 0 % (0-3) Basophils % (Manual) 0 % (0-2) Band Neutrophils 0 % (0-8) Platelet Estimate Adequate Platelet Morphology Normal Anisocytosis 1+ Sodium Level 137 MMOL/L (136-145) Potassium Level 3.0 MMOL/L (3.5-5.1) L Chloride Level 102 MMOL/L (98-107) Carbon Dioxide Level 25 MMOL/L (21-32) Anion Gap 10 mmol/L (5-15) Blood Urea Nitrogen 60 mg/dL (7-18) H Creatinine 4.5 MG/DL (0.55-1.30) H Estimat Glomerular Filtration Rate mL/min (>60) Glucose Level 226 MG/DL (74-106) H Calcium Level 6.9 MG/DL (8.5-10.1) L Phosphorus Level 3.7 MG/DL (2.5-4.9) Magnesium Level 2.1 MG/DL (1.8-2.4) Total Bilirubin 0.5 MG/DL (0.2-1.0) Aspartate Amino Transf (AST/SGOT) 54 U/L (15-37) H Alanine Aminotransferase (ALT/SGPT) 23 U/L (12-78) Alkaline Phosphatase 61 U/L (46-116) C-Reactive Protein, Quantitative 4.9 mg/dL (0.00-0.90) H Pro-B-Type Natriuretic Peptide 7768 pg/mL (0-125) H Total Protein 5.1 G/DL (6.4-8.2) L Albumin 1.4 G/DL (3.4-5.0) L Globulin 3.7 g/dL Albumin/Globulin Ratio 0.4 (1.0-2.7) L Plan Problems: (1) Cellulitis of upper extremity Assessment & Plan: 84M with RUE cellulitis, edema, erythema. no drainage. has RUE picc line recommend removal of picc. removed at bedside by myself on 05/18. pressure held, hemostasis noted, dressings applied. cath tip sent for cultures DVT duplex studies with acute thrombus IV Abx as per ID UA pending Cx results keep RUE elevated on pillows okay for diet AM labs anticoagulation off load pressure for dti noted cellulitis and edema improved deteriorated intubated on vent support likely respiratory insufficiency labs ordered wean vent okay for tube feeds via ng - cont as tolerated wean vent am labs HD as per renal now with right IJ Temp HD cath will follow with recs thank you (2) Cellulitis Assessment & Plan: Pt presented on admission with reabsorbing blister lateral R heel. Base of injury indurated with delineated margins(L)4cm x (W)3cm.Non- blanching erythema Sacrum ,R and L buttocks(L)8.5cm x (W)9cm, with a partial thickness pressure injury noted to L buttocks. Base of wound is moist and viable (L)2.3cm x (W)3cm. Area around wound tender when minimally palpated. Pt noted to be wearing splint L foot. Per pt he fractured foot a few weeks ago. Splint removed to assess skin integrity. L heel and malleoli are pink and blanchable.Cavilon Skin Barrier applied to L heel and malleoli and each area covered with Optifoam drsg. Splint reapplied. No other skin concerns noted. unchanged Partial Thickness pressure injury L buttocks resolved . Non-blanching erythema without induration noted to Sacrum,R and L buttocks. (L)8cm x (W)9cm. Scrotum is grossly enlarged and is erythematous and macerated. Penile shaft is grossly swollen .Pt noted to have a partially opened blood blister with 25% biofilm at base of shaft of penis.(L)4.5cm x (W)2.5cm. Bilat groin, medial /posterior aspects of both upper thighs are erythematous and denuded. R lower ext edematous. R heel blister reabsorbed. Non--blanching erythema without induration noted to R heel. Splint removed from L foot. Optifoam drsgs removed from malleoli and heel. Pt noted to have developed several DTPI's despite having Optifoam drsgs. DTPI noted to L achilles . Base of wound is purple and fluctuant (L)0.6cm x (W) 2.7cm.DTPI noted to medial L malleolus(L)0.2cm x (W)0.3cm.Base of wound is purple with marginal erythema. DTPI noted to dorsal L foot. Base of wound is purple with marginal erythema along borders (L)0.9cm x (W)0.5cm.L heel is boggy with non-blanching erythema. Cavilon Skin Barrier applied to affected areas on L foot . Dorsal L foot ,Achilles .R and L malleoli and L heel each covered with Optifoam drsg. Non-blanching erythema without induration noted to lateral L tibia. At plantar aspect of L hallux small dry eschar noted. No erythema or fluctuance periwound. (L)0.5cm x (W)0.4cm. IN addition to Optifoam drsgs placed over each bony prominence of L foot ABD pads placed over dorsal and plantar L foot , Abd pads aligned along L tibia. Splint realigned to L foot Wrapped loosely with Kerlix then wrapped loosely with [place] wrap. L foot floated off mattress with pillow. Tx.Plan: Apply Cavilon to Dorsal L foot. L achilles .Medial/Lateral Malleoli L Foot and L heel. Cover each site with Optifoam drsg. Change every 7 days and prn. Apply Cavilon Plantar L foot. Cover with Optifoam drsg. Change every 7 days and prn. Apply Moisture Barrier Paste to sacrum. Cover with Optifoam drsg. Changee very 7 days and prn. Apply Cavilon Skin Barrier to Both heels. Cover each heel with Optifoam drsg. Change every 7 days and prn. Cleanse wound Shaft of penis with saline. Apply Moisture Barrier Paste Daily and prn. Apply Moisture Barrier Paste to Bilat groin, Scrotum, Medial/Posterior aspects of both upper thighs with each perineal care. Reposition at least every 2hours or as tolerated. Off-load heels with pillows. APM/LA L Mattress overlay. Bennett Logan Jun 05, 2019 17:43
[2019-06-05] MEDS: Dyna-Hex 2% Top Sol 2oz TOPIC SCH (20:24)
--- NOTE | 2019-06-05 23:36 | General Progress Note ---
Progress Note Progress Note Patient seen and examined Resp failure on vent Renal failure on HD Left leg foot pressure decub changes Palpable femorals 2+ popliteal and DP 3+ palpable pulses Feet warm Left groin DVT on duplex Rec Off load leg Anticoagulate Podiatry and ortho f/u Trach PEG per icu Junior Tuttle MD Jun 05, 2019 23:36
--- NOTE | 2019-06-05 23:54 | Cardiology Progress Note ---
Assessment/Plan Assessment/Plan 1. Atrial fibrillation with rapid ventricular response, converted to sinus rhythm, continue amiodarone. 2. Septic shock, resolved, likely due to bilateral PNA, on midodrine. 3. Oliguric acute kidney injury, CXR shows B/L pulmonary edema, on HD. 4. Small pericardial effusion with pleural effusion, s/p HD. 5. B/L pleural effusion. 6. Acute respiratory failure, failed weaning. Subjective Subjective Sinus rhythm at rate of 75. Intubated. Objective Last 24 Hour Vital Signs Date Time Temp Pulse Resp B/P (MAP) Pulse Ox O2 Delivery O2 Flow Rate FiO2 06/05/19 23:25 75 28 70 06/05/19 22:00 68 26 122/49 (73) 100 06/05/19 21:00 68 29 156/63 (94) 96 06/05/19 20:35 74 30 70 06/05/19 20:00 Mechanical Ventilator 06/05/19 20:00 68 29 155/63 (93) 96 06/05/19 19:36 72 32 40 06/05/19 19:20 155/63 06/05/19 19:00 98.9 68 28 147/60 (89) 98 06/05/19 18:00 68 22 142/55 (84) 100 06/05/19 17:05 74 26 40 06/05/19 17:00 64 22 123/57 (79) 98 06/05/19 16:00 56 06/05/19 16:00 98.6 73 23 145/63 (90) 99 06/05/19 16:00 Mechanical Ventilator 06/05/19 16:00 50 06/05/19 15:00 65 24 106/41 (62) 99 06/05/19 14:00 98.3 53 18 125/43 (70) 98 06/05/19 13:20 92 23 50 06/05/19 13:00 91 28 149/60 (89) 99 06/05/19 12:00 45 06/05/19 12:00 74 26 121/44 (69) 99 06/05/19 12:00 84 06/05/19 12:00 Mechanical Ventilator 06/05/19 11:03 74 17 60 06/05/19 11:00 67 23 108/39 (62) 97 06/05/19 10:00 59 20 89/36 (53) 100 06/05/19 09:00 89 32 131/58 (82) 95 06/05/19 09:00 84 32 70 06/05/19 08:48 97.5 06/05/19 08:00 Mechanical Ventilator 06/05/19 08:00 98.1 84 32 139/57 (84) 95 06/05/19 08:00 45 06/05/19 08:00 59 06/05/19 07:02 69 18 45 06/05/19 07:00 92 29 148/66 (93) 95 06/05/19 06:00 98 25 140/71 (94) 92 06/05/19 05:37 95 25 06/05/19 05:09 89 26 80 06/05/19 05:00 87 27 149/65 (93) 99 06/05/19 04:00 97.5 71 25 133/49 (77) 100 06/05/19 04:00 Mechanical Ventilator 06/05/19 04:00 84 06/05/19 04:00 50 06/05/19 03:04 66 22 80 06/05/19 03:00 66 22 130/47 (74) 100 06/05/19 02:00 52 16 108/39 (62) 100 06/05/19 01:20 52 16 80 06/05/19 01:00 53 16 112/39 (63) 100 06/05/19 00:00 98.6 51 16 124/57 (79) 100 06/05/19 00:00 52 06/05/19 00:00 Mechanical Ventilator 06/05/19 00:00 80 Intake and Output 06/04/19 06/05/19 19:00 07:00 Intake Total 2120 ml 1070 ml Output Total 144 ml 100 ml Balance 1976 ml 970 ml Free Water 120 ml IV Total 520 ml 590 ml Tube Feeding 480 ml 480 ml Hemodialysis 1000 ml Output Urine Total 44 ml 0 ml Stool Total 100 ml 100 ml # Bowel Movements 1 2D Echo: EF 65%,Mod AR,Elevated RAP, RVSP 30,Small pericardial eff, pleural effusion Laboratory Tests Test 06/05/19 09:45 White Blood Count 7.4 K/UL (4.8-10.8) Red Blood Count 3.11 M/UL (4.70-6.10) L Hemoglobin 9.3 G/DL (14.2-18.0) L Hematocrit 27.7 % (42.0-52.0) L Mean Corpuscular Volume 89 FL (80-99) Mean Corpuscular Hemoglobin 30.1 PG (27.0-31.0) Mean Corpuscular Hemoglobin Concent 33.8 G/DL (32.0-36.0) Red Cell Distribution Width 15.5 % (11.6-14.8) H Platelet Count 159 K/UL (150-450) Mean Platelet Volume 5.8 FL (6.5-10.1) L Neutrophils (%) (Auto) % (45.0-75.0) Lymphocytes (%) (Auto) % (20.0-45.0) Monocytes (%) (Auto) % (1.0-10.0) Eosinophils (%) (Auto) % (0.0-3.0) Basophils (%) (Auto) % (0.0-2.0) Differential Total Cells Counted 100 Neutrophils % (Manual) 91 % (45-75) H Lymphocytes % (Manual) 4 % (20-45) L Monocytes % (Manual) 5 % (1-10) Eosinophils % (Manual) 0 % (0-3) Basophils % (Manual) 0 % (0-2) Band Neutrophils 0 % (0-8) Platelet Estimate Adequate Platelet Morphology Normal Anisocytosis 1+ Sodium Level 137 MMOL/L (136-145) Potassium Level 3.0 MMOL/L (3.5-5.1) L Chloride Level 102 MMOL/L (98-107) Carbon Dioxide Level 25 MMOL/L (21-32) Anion Gap 10 mmol/L (5-15) Blood Urea Nitrogen 60 mg/dL (7-18) H Creatinine 4.5 MG/DL (0.55-1.30) H Estimat Glomerular Filtration Rate mL/min (>60) Glucose Level 226 MG/DL (74-106) H Calcium Level 6.9 MG/DL (8.5-10.1) L Phosphorus Level 3.7 MG/DL (2.5-4.9) Magnesium Level 2.1 MG/DL (1.8-2.4) Total Bilirubin 0.5 MG/DL (0.2-1.0) Aspartate Amino Transf (AST/SGOT) 54 U/L (15-37) H Alanine Aminotransferase (ALT/SGPT) 23 U/L (12-78) Alkaline Phosphatase 61 U/L (46-116) C-Reactive Protein, Quantitative 4.9 mg/dL (0.00-0.90) H Pro-B-Type Natriuretic Peptide 7768 pg/mL (0-125) H Total Protein 5.1 G/DL (6.4-8.2) L Albumin 1.4 G/DL (3.4-5.0) L Globulin 3.7 g/dL Albumin/Globulin Ratio 0.4 (1.0-2.7) L Objective HEENT: Atraumatic and normocephalic. Anicteric. Pupils are equal, round, and reactive to light and accommodation. Extraocular muscles intact. NECK: JVP less than 5 cm. No carotid bruit. Carotid upstroke is 2+ bilaterally. CARDIOVASCULAR: Normal S1, S2. Regular rate and rhythm. No murmurs, gallops, or rubs. PMI is at fourth intercostal space in the midclavicular line. LUNGS: Diminished both bases. ABDOMEN: Soft, nontender, and nondistended. No hepatosplenomegaly. Positive bowel sounds. EXTREMITIES: No evidence of edema, clubbing, or cyanosis. Del Garcia MD Jun 05, 2019 23:54
[2019-06-06] VITALS (25 sets, daily range): BP systolic 111–162; BP diastolic 43–77
--- NOTE | 2019-06-06 03:30 | Consultation ---
DATE OF CONSULTATION: 06/05/2019 CONSULTING PHYSICIAN: Ricardo Menon M.D. REFERRING PHYSICIAN: Joslyn Wiggins M.D. CHIEF COMPLAINT: Left leg possible fracture with secondary skin breakdown. HISTORY OF PRESENT ILLNESS: The patient is an 84-year-old gentleman who was admitted for shortness of breath with cellulitis. He subsequently was in telemetry, brought to the ICU where he was diagnosed with possible cellulitis and wound breakdown due to the splint application. The patient supposedly had some type of fracture, but there were no imaging studies that were obtained. I explained why the splint is in place. PAST MEDICAL HISTORY: Per the intake chart. SURGICAL HISTORY: Per the intake chart. MEDICATIONS: Per the intake chart. PHYSICAL EXAMINATION: The patient is intubated. He is alert. left leg shows a splint in place. IMAGING STUDIES: No imaging studies are available. DISCUSSION: At this point, I would like to obtain x-rays of the left leg and ankle to see what exactly talus or tibia fracture that the patient reportedly had a splint applied for. Based on the x-ray, we may discontinue the splint as to prevent further compromise of the skin. What I will do is to order the x-rays tonight, review tomorrow and then make followup recommendations after that. Ricardo Menon M.D. DR: Varsha JOB#: [id number] CC:
[2019-06-06] MEDS: Zosyn 2.25 gm in D5W 55ml IV SCH ×3 (04:24→20:01)
[2019-06-06 05:26] LABS: HEMATOCRIT 23.4 % (42.0-52.0); MEAN CORPUSCULAR VOLUME 90 FL (80-99); PLATELET COUNT 165 K/UL (150-450); RED CELL DISTRIBUTION WIDTH 15.4 % (11.6-14.8); WHITE BLOOD COUNT 8.2 K/UL (4.8-10.8)
[2019-06-06 05:39] LABS: ANION GAP 12 mmol/L (5-15); BLOOD UREA NITROGEN 66 mg/dL (7-18); CALCIUM 6.7 MG/DL (8.5-10.1); CARBON DIOXIDE 24 MMOL/L (21-32); CHLORIDE 103 MMOL/L (98-107); CREATININE 4.8 MG/DL (0.55-1.30); POTASSIUM 3.3 MMOL/L (3.5-5.1); SODIUM 138 MMOL/L (136-145)
[2019-06-06 06:18] LABS: CREATINE KINASE 13 U/L (26-308)
[2019-06-06] MEDS: Midodrine 10mg tab GT SCH (06:46)
[2019-06-06] MEDS: Pantoprazole Inj IVP SCH (08:59)
[2019-06-06] MEDS: Solu-MEDROL 125mg Inj IVP SCH ×2 (08:59→20:33)
--- NOTE | 2019-06-06 09:58 | General Progress Note ---
Assessment/Plan Problem List: (1) Dysphagia ICD Codes: R13.10 - Dysphagia, unspecified SNOMED: 00421187, 180536090 (2) Anemia ICD Codes: D64.9 - Anemia, unspecified SNOMED: 802427399 (3) Hypothyroidism ICD Codes: E03.9 - Hypothyroidism, unspecified SNOMED: 14747261 (4) Thrombus ICD Codes: I82.90 - Acute embolism and thrombosis of unspecified vein SNOMED: 60032599, 08230071, 281996785, 367331221 (5) A-fib ICD Codes: I48.91 - Unspecified atrial fibrillation SNOMED: 80796303 Status: unchanged Assessment/Plan: intubated in ICU NGTF fu pulm fu labs abx per ID on HD poor prognosis PEG if needed Subjective ROS Limited/Unobtainable: No Allergies: Coded Allergies: No Known Allergies (Unverified , 05/18/19) Subjective coded today Objective Last 24 Hour Vital Signs Date Time Temp Pulse Resp B/P (MAP) Pulse Ox O2 Delivery O2 Flow Rate FiO2 06/06/19 09:12 80 22 70 06/06/19 08:00 70 06/06/19 08:00 56 06/06/19 07:00 77 27 154/62 (92) 100 06/06/19 06:41 76 24 70 06/06/19 06:09 76 27 113/43 (66) 100 06/06/19 05:28 95 28 70 06/06/19 05:13 89 27 154/56 (88) 98 06/06/19 05:00 87 23 162/57 (92) 98 06/06/19 04:00 Mechanical Ventilator 06/06/19 04:00 70 06/06/19 04:00 77 06/06/19 04:00 98.4 80 27 151/60 (90) 100 06/06/19 03:43 82 26 70 06/06/19 03:00 53 16 111/60 (77) 100 06/06/19 03:00 58 17 118/61 (80) 100 06/06/19 02:00 58 17 118/61 (80) 100 06/06/19 01:36 53 16 70 06/06/19 01:00 58 17 148/62 (90) 100 06/06/19 00:00 56 06/06/19 00:00 Mechanical Ventilator 06/06/19 00:00 50 06/06/19 00:00 53 06/06/19 00:00 98.6 53 26 124/57 (79) 100 06/05/19 23:25 75 28 70 06/05/19 23:00 68 16 113/40 (64) 100 06/05/19 22:00 68 26 122/49 (73) 100 06/05/19 21:00 68 29 156/63 (94) 96 06/05/19 20:35 74 30 70 06/05/19 20:00 Mechanical Ventilator 06/05/19 20:00 81 06/05/19 20:00 70 06/05/19 20:00 68 29 155/63 (93) 96 06/05/19 19:36 72 32 40 06/05/19 19:20 155/63 06/05/19 19:00 98.9 68 28 147/60 (89) 98 06/05/19 18:00 68 22 142/55 (84) 100 06/05/19 17:05 74 26 40 06/05/19 17:00 64 22 123/57 (79) 98 06/05/19 16:00 56 06/05/19 16:00 98.6 73 23 145/63 (90) 99 06/05/19 16:00 Mechanical Ventilator 06/05/19 16:00 50 06/05/19 15:00 65 24 106/41 (62) 99 06/05/19 14:00 98.3 53 18 125/43 (70) 98 06/05/19 13:20 92 23 50 06/05/19 13:00 91 28 149/60 (89) 99 06/05/19 12:00 45 06/05/19 12:00 74 26 121/44 (69) 99 06/05/19 12:00 84 06/05/19 12:00 Mechanical Ventilator 06/05/19 11:03 74 17 60 06/05/19 11:00 67 23 108/39 (62) 97 06/05/19 10:00 59 20 89/36 (53) 100 Intake and Output 06/05/19 06/06/19 19:00 07:00 Intake Total 680 ml 820 ml Output Total 370 ml 326 ml Balance 310 ml 494 ml Free Water 80 ml IV Total 440 ml 480 ml Tube Feeding 160 ml 340 ml Output Urine Total 20 ml 26 ml Stool Total 350 ml 300 ml Laboratory Tests 06/06/19 04:30: White Blood Count 8.2, Red Blood Count 2.60L, Hemoglobin 8.0L, Hematocrit 23.4L , Mean Corpuscular Volume 90, Mean Corpuscular Hemoglobin 30.7, Mean Corpuscular Hemoglobin Concent 34.2, Red Cell Distribution Width 15.4H, Platelet Count 165, Mean Platelet Volume 5.2L, Neutrophils (%) (Auto) , Lymphocytes (%) (Auto) , Monocytes (%) (Auto) , Eosinophils (%) (Auto) , Basophils (%) (Auto) , Sodium Level 138, Potassium Level 3.3L, Chloride Level 103, Carbon Dioxide Level 24, Anion Gap 12, Blood Urea Nitrogen 66H, Creatinine 4.8H, Estimat Glomerular Filtration Rate , Glucose Level 189H, Calcium Level 6.7L, Phosphorus Level 4.0, Magnesium Level 2.1, Total Creatine Kinase 13L Height (Feet): 5 Height (Inches): 7.00 Weight (Pounds): 206 General Appearance: lethargic EENT: normal ENT inspection Neck: supple Cardiovascular: normal rate Respiratory/Chest: decreased breath sounds Abdomen: normal bowel sounds, non tender, soft Extremities: non-tender Valentino Lino MD Jun 06, 2019 09:58
--- NOTE | 2019-06-06 10:47 | Infectious Diseases Prog Note ---
Assessment/Plan Assessment/Plan 84 yo male with PMHx of HTN who was sent to the ED on 05/18/19 from his snf for possible picc line infection. Swelling around PICC line Minimal to no erythema and no purulent drainage Not likely to be infected Blood Cx 05/18/19 - NGTD PICC Tip Cx 05/18/19 - NGTD PICC line removed 05/18/19 No Leukocytosis No fever OM - Let foot On Vancomycin at nursing End date early May PNA on 8L NC CXR - Some LLL Atelectasis vs PNA, Nodules CT 05/20/19 - Bilateral upper lobe infiltrates worse on the right. Consider pneumonia. Bilateral pleural effusions moderate in size Sp Cx Marily HTN PLAN - CPK - Continue Daptomycin for OM End date per snf MD - Continue Zosyn #/ for probable PNA - 05/28/19 SP Vancomycin per pharmacy - Stopped for increasing Cr - 05/27/19 SP Levofloxacin #5 - Get OSH records for OM - Monitor CBC and Temps Thank you for this consult. [facility] will continue to follow the patient with you during this hospitalization. Subjective Allergies: Coded Allergies: No Known Allergies (Unverified , 05/18/19) Subjective On Vent 65% O2 Afebrile No Leukocytosis Objective Vital Signs Last 24 Hour Vital Signs Date Time Temp Pulse Resp B/P (MAP) Pulse Ox O2 Delivery O2 Flow Rate FiO2 06/06/19 10:39 56 17 65 06/06/19 10:00 79 25 139/56 (83) 99 06/06/19 09:12 80 22 70 06/06/19 09:00 56 16 127/52 (77) 100 06/06/19 08:00 70 06/06/19 08:00 98.5 70 17 126/44 (71) 100 06/06/19 08:00 56 06/06/19 07:00 77 27 154/62 (92) 100 06/06/19 06:41 76 24 70 06/06/19 06:09 76 27 113/43 (66) 100 06/06/19 05:28 95 28 70 06/06/19 05:13 89 27 154/56 (88) 98 06/06/19 05:00 87 23 162/57 (92) 98 06/06/19 04:00 Mechanical Ventilator 06/06/19 04:00 70 1/10/20 04:00 77 06/06/19 04:00 98.4 80 27 151/60 (90) 100 06/06/19 03:43 82 26 70 06/06/19 03:00 53 16 111/60 (77) 100 06/06/19 03:00 58 17 118/61 (80) 100 06/06/19 02:00 58 17 118/61 (80) 100 06/06/19 01:36 53 16 70 06/06/19 01:00 58 17 148/62 (90) 100 06/06/19 00:00 56 06/06/19 00:00 Mechanical Ventilator 06/06/19 00:00 50 06/06/19 00:00 53 06/06/19 00:00 98.6 53 26 124/57 (79) 100 06/05/19 23:25 75 28 70 06/05/19 23:00 68 16 113/40 (64) 100 06/05/19 22:00 68 26 122/49 (73) 100 06/05/19 21:00 68 29 156/63 (94) 96 06/05/19 20:35 74 30 70 06/05/19 20:00 Mechanical Ventilator 06/05/19 20:00 81 06/05/19 20:00 70 06/05/19 20:00 68 29 155/63 (93) 96 06/05/19 19:36 72 32 40 06/05/19 19:20 155/63 06/05/19 19:00 98.9 68 28 147/60 (89) 98 06/05/19 18:00 68 22 142/55 (84) 100 06/05/19 17:05 74 26 40 06/05/19 17:00 64 22 123/57 (79) 98 06/05/19 16:00 56 06/05/19 16:00 98.6 73 23 145/63 (90) 99 06/05/19 16:00 Mechanical Ventilator 06/05/19 16:00 50 06/05/19 15:00 65 24 106/41 (62) 99 06/05/19 14:00 98.3 53 18 125/43 (70) 98 06/05/19 13:20 92 23 50 06/05/19 13:00 91 28 149/60 (89) 99 06/05/19 12:00 45 06/05/19 12:00 74 26 121/44 (69) 99 06/05/19 12:00 84 06/05/19 12:00 Mechanical Ventilator 06/05/19 11:03 74 17 60 06/05/19 11:00 67 23 108/39 (62) 97 Height (Feet): 5 Height (Inches): 7.00 Weight (Pounds): 206 Objective Gen: Intubatd on vent 65% O2 HEENT: NCAT, MMM, EOMI LUNGS: Coarse B/L, Tight and wheezy CARDS: RRR, S1, S2 ABD: Soft, NT, ND Laboratory Tests Test 06/06/19 04:30 White Blood Count 8.2 K/UL (4.8-10.8) Red Blood Count 2.60 M/UL (4.70-6.10) L Hemoglobin 8.0 G/DL (14.2-18.0) L Hematocrit 23.4 % (42.0-52.0) L Mean Corpuscular Volume 90 FL (80-99) Mean Corpuscular Hemoglobin 30.7 PG (27.0-31.0) Mean Corpuscular Hemoglobin Concent 34.2 G/DL (32.0-36.0) Red Cell Distribution Width 15.4 % (11.6-14.8) H Platelet Count 165 K/UL (150-450) Mean Platelet Volume 5.2 FL (6.5-10.1) L Neutrophils (%) (Auto) % (45.0-75.0) Lymphocytes (%) (Auto) % (20.0-45.0) Monocytes (%) (Auto) % (1.0-10.0) Eosinophils (%) (Auto) % (0.0-3.0) Basophils (%) (Auto) % (0.0-2.0) Sodium Level 138 MMOL/L (136-145) Potassium Level 3.3 MMOL/L (3.5-5.1) L Chloride Level 103 MMOL/L (98-107) Carbon Dioxide Level 24 MMOL/L (21-32) Anion Gap 12 mmol/L (5-15) Blood Urea Nitrogen 66 mg/dL (7-18) H Creatinine 4.8 MG/DL (0.55-1.30) H Estimat Glomerular Filtration Rate mL/min (>60) Glucose Level 189 MG/DL (74-106) H Calcium Level 6.7 MG/DL (8.5-10.1) L Phosphorus Level 4.0 MG/DL (2.5-4.9) Magnesium Level 2.1 MG/DL (1.8-2.4) Total Creatine Kinase 13 U/L (26-308) L Current Medications Medications (Trade) Dose Ordered Sig/Phillip Route PRN Reason Start Time Stop Time Status Last Admin Dose Admin Acetaminophen (Tylenol) 500 mg Q4H PRN GT Mild Pain/Temp > 100.5 05/27/19 07:45 06/19/19 20:29 06/05/19 08:18 Chlorhexidine Gluconate (Reina-Hex 2%) 1 applic DAILY@1999 TOPIC 05/27/19 20:00 06/26/19 19:59 06/05/19 20:24 Daptomycin 500 mg/ Sodium Chloride 55 ml @ 100 mls/hr Q48H IV 05/29/19 13:00 06/11/19 12:59 06/04/19 13:24 Dextrose/Sodium Chloride 1,000 ml @ 40 mls/hr Q24H IV 06/03/19 11:30 07/03/19 11:29 06/05/19 11:30 Methylprednisolone Sodium Succinate (Solu-MEDROL) 60 mg EVERY 12 HOURS IVP 06/04/19 21:00 07/04/19 20:59 06/06/19 08:59 Midodrine (Pro-Amatine) 10 mg Q8HR GT 06/03/19 14:00 07/03/19 13:59 06/06/19 06:46 Norepinephrine Bitartrate 4 mg/ Dextrose 250 ml @ 0 mls/hr Q24H IV 05/29/19 19:20 06/28/19 19:19 05/30/19 22:45 Pantoprazole (Protonix) 40 mg EVERY 12 HOURS IVP 05/27/19 10:45 06/26/19 10:44 06/06/19 08:59 Piperacillin Sod/ Tazobactam Sod 2.25 gm/Dextrose 55 ml @ 110 mls/hr Q8HR@0400,1200,1999 IV 06/03/19 12:00 06/10/19 11:59 06/06/19 04:24 Potassium Chloride 100 ml @ 100 mls/hr Q1HR IVPB 06/06/19 10:00 06/06/19 11:59 Jimbo Dodd MD Jun 06, 2019 10:47
--- NOTE | 2019-06-06 10:52 | Surgery Progress Note ---
Surgery Progress Note Subjective Additional Comments no acute events labs noted ortho eval appreciated vascular eval appreciated Objective Last 24 Hour Vital Signs Date Time Temp Pulse Resp B/P (MAP) Pulse Ox O2 Delivery O2 Flow Rate FiO2 06/06/19 10:39 56 17 65 06/06/19 10:00 79 25 139/56 (83) 99 06/06/19 09:12 80 22 70 06/06/19 09:00 56 16 127/52 (77) 100 06/06/19 08:00 Mechanical Ventilator 06/06/19 08:00 70 06/06/19 08:00 98.5 70 17 126/44 (71) 100 06/06/19 08:00 56 06/06/19 07:00 77 27 154/62 (92) 100 06/06/19 06:41 76 24 70 06/06/19 06:09 76 27 113/43 (66) 100 06/06/19 05:28 95 28 70 06/06/19 05:13 89 27 154/56 (88) 98 06/06/19 05:00 87 23 162/57 (92) 98 06/06/19 04:00 Mechanical Ventilator 06/06/19 04:00 70 06/06/19 04:00 77 06/06/19 04:00 98.4 80 27 151/60 (90) 100 06/06/19 03:43 82 26 70 06/06/19 03:00 53 16 111/60 (77) 100 06/06/19 03:00 58 17 118/61 (80) 100 06/06/19 02:00 58 17 118/61 (80) 100 06/06/19 01:36 53 16 70 06/06/19 01:00 58 17 148/62 (90) 100 06/06/19 00:00 56 06/06/19 00:00 Mechanical Ventilator 06/06/19 00:00 50 06/06/19 00:00 53 06/06/19 00:00 98.6 53 26 124/57 (79) 100 06/05/19 23:25 75 28 70 06/05/19 23:00 68 16 113/40 (64) 100 06/05/19 22:00 68 26 122/49 (73) 100 06/05/19 21:00 68 29 156/63 (94) 96 1/9/20 20:35 74 30 70 06/05/19 20:00 Mechanical Ventilator 06/05/19 20:00 81 06/05/19 20:00 70 06/05/19 20:00 68 29 155/63 (93) 96 06/05/19 19:36 72 32 40 06/05/19 19:20 155/63 06/05/19 19:00 98.9 68 28 147/60 (89) 98 06/05/19 18:00 68 22 142/55 (84) 100 06/05/19 17:05 74 26 40 06/05/19 17:00 64 22 123/57 (79) 98 06/05/19 16:00 56 06/05/19 16:00 98.6 73 23 145/63 (90) 99 06/05/19 16:00 Mechanical Ventilator 06/05/19 16:00 50 06/05/19 15:00 65 24 106/41 (62) 99 06/05/19 14:00 98.3 53 18 125/43 (70) 98 06/05/19 13:20 92 23 50 06/05/19 13:00 91 28 149/60 (89) 99 06/05/19 12:00 45 06/05/19 12:00 74 26 121/44 (69) 99 06/05/19 12:00 84 06/05/19 12:00 Mechanical Ventilator 06/05/19 11:03 74 17 60 06/05/19 11:00 67 23 108/39 (62) 97 I&O Intake and Output 06/05/19 06/06/19 19:00 07:00 Intake Total 680 ml 820 ml Output Total 370 ml 326 ml Balance 310 ml 494 ml Free Water 80 ml IV Total 440 ml 480 ml Tube Feeding 160 ml 340 ml Output Urine Total 20 ml 26 ml Stool Total 350 ml 300 ml Dressing: other Wound: other Drains: other Cardiovascular: RSR Respiratory: decreased breath sounds Abdomen: soft, present bowel sounds Extremities: no cyanosis, pulses, other Laboratory Tests Test 06/06/19 04:30 White Blood Count 8.2 K/UL (4.8-10.8) Red Blood Count 2.60 M/UL (4.70-6.10) L Hemoglobin 8.0 G/DL (14.2-18.0) L Hematocrit 23.4 % (42.0-52.0) L Mean Corpuscular Volume 90 FL (80-99) Mean Corpuscular Hemoglobin 30.7 PG (27.0-31.0) Mean Corpuscular Hemoglobin Concent 34.2 G/DL (32.0-36.0) Red Cell Distribution Width 15.4 % (11.6-14.8) H Platelet Count 165 K/UL (150-450) Mean Platelet Volume 5.2 FL (6.5-10.1) L Neutrophils (%) (Auto) % (45.0-75.0) Lymphocytes (%) (Auto) % (20.0-45.0) Monocytes (%) (Auto) % (1.0-10.0) Eosinophils (%) (Auto) % (0.0-3.0) Basophils (%) (Auto) % (0.0-2.0) Sodium Level 138 MMOL/L (136-145) Potassium Level 3.3 MMOL/L (3.5-5.1) L Chloride Level 103 MMOL/L (98-107) Carbon Dioxide Level 24 MMOL/L (21-32) Anion Gap 12 mmol/L (5-15) Blood Urea Nitrogen 66 mg/dL (7-18) H Creatinine 4.8 MG/DL (0.55-1.30) H Estimat Glomerular Filtration Rate mL/min (>60) Glucose Level 189 MG/DL (74-106) H Calcium Level 6.7 MG/DL (8.5-10.1) L Phosphorus Level 4.0 MG/DL (2.5-4.9) Magnesium Level 2.1 MG/DL (1.8-2.4) Total Creatine Kinase 13 U/L (26-308) L Plan Problems: (1) Cellulitis of upper extremity Assessment & Plan: 84M with RUE cellulitis, edema, erythema. no drainage. has RUE picc line recommend removal of picc. removed at bedside by myself on 05/18. pressure held, hemostasis noted, dressings applied. cath tip sent for cultures DVT duplex studies with acute thrombus IV Abx as per ID UA pending Cx results keep RUE elevated on pillows okay for diet AM labs anticoagulation off load pressure for dti noted cellulitis and edema improved deteriorated intubated on vent support likely respiratory insufficiency labs ordered wean vent okay for tube feeds via ng - cont as tolerated wean vent am labs HD as per renal now with right IJ Temp HD cath will follow with recs thank you (2) Cellulitis Assessment & Plan: Pt presented on admission with reabsorbing blister lateral R heel. Base of injury indurated with delineated margins(L)4cm x (W)3cm.Non- blanching erythema Sacrum ,R and L buttocks(L)8.5cm x (W)9cm, with a partial thickness pressure injury noted to L buttocks. Base of wound is moist and viable (L)2.3cm x (W)3cm. Area around wound tender when minimally palpated. Pt noted to be wearing splint L foot. Per pt he fractured foot a few weeks ago. Splint removed to assess skin integrity. L heel and malleoli are pink and blanchable.Cavilon Skin Barrier applied to L heel and malleoli and each area covered with Optifoam drsg. Splint reapplied. No other skin concerns noted. unchanged Partial Thickness pressure injury L buttocks resolved . Non-blanching erythema without induration noted to Sacrum,R and L buttocks. (L)8cm x (W)9cm. Scrotum is grossly enlarged and is erythematous and macerated. Penile shaft is grossly swollen .Pt noted to have a partially opened blood blister with 25% biofilm at base of shaft of penis.(L)4.5cm x (W)2.5cm. Bilat groin, medial /posterior aspects of both upper thighs are erythematous and denuded. R lower ext edematous. R heel blister reabsorbed. Non--blanching erythema without induration noted to R heel. Splint removed from L foot. Optifoam drsgs removed from malleoli and heel. Pt noted to have developed several DTPI's despite having Optifoam drsgs. DTPI noted to L achilles . Base of wound is purple and fluctuant (L)0.6cm x (W) 2.7cm.DTPI noted to medial L malleolus(L)0.2cm x (W)0.3cm.Base of wound is purple with marginal erythema. DTPI noted to dorsal L foot. Base of wound is purple with marginal erythema along borders (L)0.9cm x (W)0.5cm.L heel is boggy with non-blanching erythema. Cavilon Skin Barrier applied to affected areas on L foot . Dorsal L foot ,Achilles .R and L malleoli and L heel each covered with Optifoam drsg. Non-blanching erythema without induration noted to lateral L tibia. At plantar aspect of L hallux small dry eschar noted. No erythema or fluctuance periwound. (L)0.5cm x (W)0.4cm. IN addition to Optifoam drsgs placed over each bony prominence of L foot ABD pads placed over dorsal and plantar L foot , Abd pads aligned along L tibia. Splint realigned to L foot Wrapped loosely with Kerlix then wrapped loosely with [place] wrap. L foot floated off mattress with pillow. Tx.Plan: Apply Cavilon to Dorsal L foot. L achilles .Medial/Lateral Malleoli L Foot and L heel. Cover each site with Optifoam drsg. Change every 7 days and prn. Apply Cavilon Plantar L foot. Cover with Optifoam drsg. Change every 7 days and prn. Apply Moisture Barrier Paste to sacrum. Cover with Optifoam drsg. Changee very 7 days and prn. Apply Cavilon Skin Barrier to Both heels. Cover each heel with Optifoam drsg. Change every 7 days and prn. Cleanse wound Shaft of penis with saline. Apply Moisture Barrier Paste Daily and prn. Apply Moisture Barrier Paste to Bilat groin, Scrotum, Medial/Posterior aspects of both upper thighs with each perineal care. Reposition at least every 2hours or as tolerated. Off-load heels with pillows. APM/LA L Mattress overlay. Bennett Logan Jun 06, 2019 10:52
--- NOTE | 2019-06-06 11:39 | Podiatric Progress Note ---
Assessment/Plan Patient Neto Fine is a 84 year old male who was admitted on May 18, 2019 at 01: 25 with Problems: (1) Cellulitis (2) PVD (peripheral vascular disease) (3) Deep tissue injury Assessment/Plan D/c splint apply Xeroform with skin protectors. patient will be followed as needed. Subjective Reason for consult L leg cellulitis Allergies: Coded Allergies: No Known Allergies (Unverified , 05/18/19) Subjective patient seen in ICU for L leg cellulitis and ulceration. Patient is BB and can not relate Hx. Objective Exam Last 24 Hour Vital Signs Date Time Temp Pulse Resp B/P (MAP) Pulse Ox O2 Delivery O2 Flow Rate FiO2 06/06/19 10:39 56 17 65 06/06/19 10:00 79 25 139/56 (83) 99 06/06/19 09:12 80 22 70 06/06/19 09:00 56 16 127/52 (77) 100 06/06/19 08:00 Mechanical Ventilator 06/06/19 08:00 70 06/06/19 08:00 98.5 70 17 126/44 (71) 100 06/06/19 08:00 56 06/06/19 07:00 77 27 154/62 (92) 100 06/06/19 06:41 76 24 70 06/06/19 06:09 76 27 113/43 (66) 100 06/06/19 05:28 95 28 70 06/06/19 05:13 89 27 154/56 (88) 98 06/06/19 05:00 87 23 162/57 (92) 98 06/06/19 04:00 Mechanical Ventilator 06/06/19 04:00 70 06/06/19 04:00 77 06/06/19 04:00 98.4 80 27 151/60 (90) 100 06/06/19 03:43 82 26 70 06/06/19 03:00 53 16 111/60 (77) 100 06/06/19 03:00 58 17 118/61 (80) 100 06/06/19 02:00 58 17 118/61 (80) 100 06/06/19 01:36 53 16 70 06/06/19 01:00 58 17 148/62 (90) 100 06/06/19 00:00 56 06/06/19 00:00 Mechanical Ventilator 06/06/19 00:00 50 06/06/19 00:00 53 06/06/19 00:00 98.6 53 26 124/57 (79) 100 06/05/19 23:25 75 28 70 06/05/19 23:00 68 16 113/40 (64) 100 06/05/19 22:00 68 26 122/49 (73) 100 06/05/19 21:00 68 29 156/63 (94) 96 06/05/19 20:35 74 30 70 06/05/19 20:00 Mechanical Ventilator 06/05/19 20:00 81 06/05/19 20:00 70 06/05/19 20:00 68 29 155/63 (93) 96 06/05/19 19:36 72 32 40 06/05/19 19:20 155/63 06/05/19 19:00 98.9 68 28 147/60 (89) 98 06/05/19 18:00 68 22 142/55 (84) 100 06/05/19 17:05 74 26 40 06/05/19 17:00 64 22 123/57 (79) 98 06/05/19 16:00 56 06/05/19 16:00 98.6 73 23 145/63 (90) 99 06/05/19 16:00 Mechanical Ventilator 06/05/19 16:00 50 06/05/19 15:00 65 24 106/41 (62) 99 06/05/19 14:00 98.3 53 18 125/43 (70) 98 06/05/19 13:20 92 23 50 06/05/19 13:00 91 28 149/60 (89) 99 06/05/19 12:00 45 06/05/19 12:00 74 26 121/44 (69) 99 06/05/19 12:00 84 06/05/19 12:00 Mechanical Ventilator Laboratory Tests Test 06/06/19 04:30 White Blood Count 8.2 K/UL (4.8-10.8) Red Blood Count 2.60 M/UL (4.70-6.10) L Hemoglobin 8.0 G/DL (14.2-18.0) L Hematocrit 23.4 % (42.0-52.0) L Mean Corpuscular Volume 90 FL (80-99) Mean Corpuscular Hemoglobin 30.7 PG (27.0-31.0) Mean Corpuscular Hemoglobin Concent 34.2 G/DL (32.0-36.0) Red Cell Distribution Width 15.4 % (11.6-14.8) H Platelet Count 165 K/UL (150-450) Mean Platelet Volume 5.2 FL (6.5-10.1) L Neutrophils (%) (Auto) % (45.0-75.0) Lymphocytes (%) (Auto) % (20.0-45.0) Monocytes (%) (Auto) % (1.0-10.0) Eosinophils (%) (Auto) % (0.0-3.0) Basophils (%) (Auto) % (0.0-2.0) Sodium Level 138 MMOL/L (136-145) Potassium Level 3.3 MMOL/L (3.5-5.1) L Chloride Level 103 MMOL/L (98-107) Carbon Dioxide Level 24 MMOL/L (21-32) Anion Gap 12 mmol/L (5-15) Blood Urea Nitrogen 66 mg/dL (7-18) H Creatinine 4.8 MG/DL (0.55-1.30) H Estimat Glomerular Filtration Rate mL/min (>60) Glucose Level 189 MG/DL (74-106) H Calcium Level 6.7 MG/DL (8.5-10.1) L Phosphorus Level 4.0 MG/DL (2.5-4.9) Magnesium Level 2.1 MG/DL (1.8-2.4) Total Creatine Kinase 13 U/L (26-308) L Microbiology Date/Time Source Procedure Growth Status 05/30/19 12:00 Blood Blood Culture - Final NO GROWTH AFTER 5 DAYS Complete 05/30/19 13:50 Sputum Gram Stain - Final Complete 05/30/19 13:50 Sputum Culture - Final Marily Lusitaniae Complete 05/30/19 13:50 Indwelling Cath Urine Culture - Final NO GROWTH AFTER 48 HOURS Complete 05/18/19 11:10 Catheter Site Catheter Tip Culture - Final NO GROWTH AFTER 72 HOURS Complete Vascular Pulses: 1 dorsalis pedis (R), 1 dorsalis pedis (L) Dermatological Dermatological Narrative BK splint is noted to the L leg. after removal of the splint several deep tissue injuries were seen. small lesions were noted dorsal foot, medial and lateral ankle. posterior heel noted a larger lesion., all lesions are closed no drainage discharge or pus noted. minimal hematoma is seen at the site. Jimbo Khan DPM Jun 06, 2019 11:39
--- NOTE | 2019-06-06 11:47 | Nephrology Progress Note ---
Assessment/Plan Problem List: (1) Renal failure (ARF), acute on chronic Assessment: Cr rising (2) Cellulitis of upper extremity (3) A-fib (4) Pneumonia (5) UTI (urinary tract infection) (6) Anemia Assessment: worsened (7) Hypothyroidism Assessment - KIMO on CKD - Urinary tract infection. - Anemia- - Dehydration. - Cellulitis of Upper extremity - HTN Plan no dialysis today dialysis done 06/02 - repeat 06/04 and then 06/07 Transfuse one unit PRBcs in ICU- intubated BP meds and Mind altering meds discontinued On midodrine check vanco levels - hold vanco doses previously: Per cardiology Anemia kumari- Avoid Nephrotoxics Per ID Allow CHANDA inhibitor to continue as long as renal function does not worsen. PICC line has been removed. CXR: Increased right pleural effusion and similar left pleural effusion. Increased interstitial and hazy opacities throughout the lungs. Subjective ROS Limited/Unobtainable: Yes Objective Objective Last 24 Hour Vital Signs Date Time Temp Pulse Resp B/P (MAP) Pulse Ox O2 Delivery O2 Flow Rate FiO2 06/06/19 10:39 56 17 65 06/06/19 10:00 79 25 139/56 (83) 99 06/06/19 09:12 80 22 70 06/06/19 09:00 56 16 127/52 (77) 100 06/06/19 08:00 Mechanical Ventilator 06/06/19 08:00 70 06/06/19 08:00 98.5 70 17 126/44 (71) 100 06/06/19 08:00 56 06/06/19 07:00 77 27 154/62 (92) 100 06/06/19 06:41 76 24 70 06/06/19 06:09 76 27 113/43 (66) 100 06/06/19 05:28 95 28 70 06/06/19 05:13 89 27 154/56 (88) 98 06/06/19 05:00 87 23 162/57 (92) 98 06/06/19 04:00 Mechanical Ventilator 06/06/19 04:00 70 06/06/19 04:00 77 06/06/19 04:00 98.4 80 27 151/60 (90) 100 06/06/19 03:43 82 26 70 06/06/19 03:00 53 16 111/60 (77) 100 06/06/19 03:00 58 17 118/61 (80) 100 06/06/19 02:00 58 17 118/61 (80) 100 06/06/19 01:36 53 16 70 06/06/19 01:00 58 17 148/62 (90) 100 06/06/19 00:00 56 06/06/19 00:00 Mechanical Ventilator 06/06/19 00:00 50 06/06/19 00:00 53 06/06/19 00:00 98.6 53 26 124/57 (79) 100 06/05/19 23:25 75 28 70 06/05/19 23:00 68 16 113/40 (64) 100 06/05/19 22:00 68 26 122/49 (73) 100 06/05/19 21:00 68 29 156/63 (94) 96 06/05/19 20:35 74 30 70 06/05/19 20:00 Mechanical Ventilator 06/05/19 20:00 81 06/05/19 20:00 70 06/05/19 20:00 68 29 155/63 (93) 96 06/05/19 19:36 72 32 40 06/05/19 19:20 155/63 06/05/19 19:00 98.9 68 28 147/60 (89) 98 06/05/19 18:00 68 22 142/55 (84) 100 06/05/19 17:05 74 26 40 06/05/19 17:00 64 22 123/57 (79) 98 06/05/19 16:00 56 06/05/19 16:00 98.6 73 23 145/63 (90) 99 06/05/19 16:00 Mechanical Ventilator 06/05/19 16:00 50 06/05/19 15:00 65 24 106/41 (62) 99 06/05/19 14:00 98.3 53 18 125/43 (70) 98 06/05/19 13:20 92 23 50 06/05/19 13:00 91 28 149/60 (89) 99 06/05/19 12:00 45 06/05/19 12:00 74 26 121/44 (69) 99 06/05/19 12:00 84 06/05/19 12:00 Mechanical Ventilator Intake and Output 06/05/19 06/06/19 19:00 07:00 Intake Total 680 ml 820 ml Output Total 370 ml 326 ml Balance 310 ml 494 ml Free Water 80 ml IV Total 440 ml 480 ml Tube Feeding 160 ml 340 ml Output Urine Total 20 ml 26 ml Stool Total 350 ml 300 ml Laboratory Tests 06/06/19 04:30: White Blood Count 8.2, Red Blood Count 2.60L, Hemoglobin 8.0L, Hematocrit 23.4L , Mean Corpuscular Volume 90, Mean Corpuscular Hemoglobin 30.7, Mean Corpuscular Hemoglobin Concent 34.2, Red Cell Distribution Width 15.4H, Platelet Count 165, Mean Platelet Volume 5.2L, Neutrophils (%) (Auto) , Lymphocytes (%) (Auto) , Monocytes (%) (Auto) , Eosinophils (%) (Auto) , Basophils (%) (Auto) , Sodium Level 138, Potassium Level 3.3L, Chloride Level 103, Carbon Dioxide Level 24, Anion Gap 12, Blood Urea Nitrogen 66H, Creatinine 4.8H, Estimat Glomerular Filtration Rate , Glucose Level 189H, Calcium Level 6.7L, Phosphorus Level 4.0, Magnesium Level 2.1, Total Creatine Kinase 13L Height (Feet): 5 Height (Inches): 7.00 Weight (Pounds): 206 General Appearance: no apparent distress EENT: other - vented Cardiovascular: bradycardia Respiratory/Chest: decreased breath sounds Abdomen: distended Objective no change Reinier Mera MD Jun 06, 2019 11:47
--- NOTE | 2019-06-06 12:13 | Diagnostic Imaging Report ---
Indication: Pain, breakdown of heel tissue Technique: 2 views of the left ankle Comparison: none Findings: Overlying plaster cast obscures bony detail. No definite acute fractures or dislocations. No definite osseous erosions or osteolytic process. Impression: Limited exam, as described No definite acute bony trauma No definite plain radiographic evidence of osteomyelitis. Note, however, limited sensitivity of plain radiographs for such, particularly given the presence of a cast. Consider MRI or bone scan if there is high clinical suspicion
[2019-06-06] MEDS: D5NS 1,000 ML IV SCH (12:47)
--- NOTE | 2019-06-06 13:40 | Pulmonology Progress Note ---
Assessment/Plan Assessment/Plan IMPRESSION AND PLAN: 1. Pneumonia. Bilateral upper lobe. 2. Cellulitis. 3. History of COPD. 4. Hypertension. 5. Afib with RVR; rate controlled 6. Respiratory failure; on vent DISCUSSION: 1. Intubated; on AC mode 2. Agree with present management and care. 3. Continue medications and HHN with atrovent only Arsen Whittaker M.D. Subjective Interval Events: Seen intubated in ICU. Constitutional: Reports: no symptoms HEENT: Repors: no symptoms Respiratory: Reports: no symptoms Cardiovascular: Reports: no symptoms Gastrointestinal/Abdominal: Reports: no symptoms Allergies: Coded Allergies: No Known Allergies (Unverified , 05/18/19) Objective Last 24 Hour Vital Signs Date Time Temp Pulse Resp B/P (MAP) Pulse Ox O2 Delivery O2 Flow Rate FiO2 06/06/19 13:00 83 19 153/71 (98) 98 06/06/19 12:59 84 23 60 06/06/19 12:00 60 06/06/19 12:00 Mechanical Ventilator 06/06/19 12:00 82 06/06/19 12:00 98.6 80 26 145/63 (90) 99 06/06/19 11:00 68 18 138/62 (87) 99 06/06/19 10:39 56 17 65 06/06/19 10:00 65 06/06/19 10:00 79 25 139/56 (83) 99 06/06/19 09:12 80 22 70 06/06/19 09:00 56 16 127/52 (77) 100 06/06/19 08:00 Mechanical Ventilator 06/06/19 08:00 70 06/06/19 08:00 98.5 70 17 126/44 (71) 100 06/06/19 08:00 56 06/06/19 07:00 77 27 154/62 (92) 100 06/06/19 06:41 76 24 70 06/06/19 06:09 76 27 113/43 (66) 100 06/06/19 05:28 95 28 70 06/06/19 05:13 89 27 154/56 (88) 98 06/06/19 05:00 87 23 162/57 (92) 98 06/06/19 04:00 Mechanical Ventilator 06/06/19 04:00 70 06/06/19 04:00 77 06/06/19 04:00 98.4 80 27 151/60 (90) 100 06/06/19 03:43 82 26 70 06/06/19 03:00 53 16 111/60 (77) 100 06/06/19 03:00 58 17 118/61 (80) 100 06/06/19 02:00 58 17 118/61 (80) 100 06/06/19 01:36 53 16 70 06/06/19 01:00 58 17 148/62 (90) 100 06/06/19 00:00 56 06/06/19 00:00 Mechanical Ventilator 06/06/19 00:00 50 06/06/19 00:00 53 06/06/19 00:00 98.6 53 26 124/57 (79) 100 06/05/19 23:25 75 28 70 06/05/19 23:00 68 16 113/40 (64) 100 06/05/19 22:00 68 26 122/49 (73) 100 06/05/19 21:00 68 29 156/63 (94) 96 06/05/19 20:35 74 30 70 06/05/19 20:00 Mechanical Ventilator 06/05/19 20:00 81 06/05/19 20:00 70 06/05/19 20:00 68 29 155/63 (93) 96 06/05/19 19:36 72 32 40 06/05/19 19:20 155/63 06/05/19 19:00 98.9 68 28 147/60 (89) 98 06/05/19 18:00 68 22 142/55 (84) 100 06/05/19 17:05 74 26 40 06/05/19 17:00 64 22 123/57 (79) 98 06/05/19 16:00 56 06/05/19 16:00 98.6 73 23 145/63 (90) 99 06/05/19 16:00 Mechanical Ventilator 06/05/19 16:00 50 06/05/19 15:00 65 24 106/41 (62) 99 06/05/19 14:00 98.3 53 18 125/43 (70) 98 Intake and Output 06/05/19 06/06/19 19:00 07:00 Intake Total 680 ml 820 ml Output Total 370 ml 326 ml Balance 310 ml 494 ml Free Water 80 ml IV Total 440 ml 480 ml Tube Feeding 160 ml 340 ml Output Urine Total 20 ml 26 ml Stool Total 350 ml 300 ml General Appearance: no acute distress HEENT: normocephalic Respiratory/Chest: no respiratory distress, no accessory muscle use, respiratory distress, decreased breath sounds Cardiovascular: normal peripheral pulses, tachycardia Abdomen: normal bowel sounds Extremities: no cyanosis Laboratory Tests 06/06/19 04:30: White Blood Count 8.2, Red Blood Count 2.60L, Hemoglobin 8.0L, Hematocrit 23.4L , Mean Corpuscular Volume 90, Mean Corpuscular Hemoglobin 30.7, Mean Corpuscular Hemoglobin Concent 34.2, Red Cell Distribution Width 15.4H, Platelet Count 165, Mean Platelet Volume 5.2L, Neutrophils (%) (Auto) , Lymphocytes (%) (Auto) , Monocytes (%) (Auto) , Eosinophils (%) (Auto) , Basophils (%) (Auto) , Sodium Level 138, Potassium Level 3.3L, Chloride Level 103, Carbon Dioxide Level 24, Anion Gap 12, Blood Urea Nitrogen 66H, Creatinine 4.8H, Estimat Glomerular Filtration Rate , Glucose Level 189H, Calcium Level 6.7L, Phosphorus Level 4.0, Magnesium Level 2.1, Total Creatine Kinase 13L Current Medications Medications (Trade) Dose Ordered Sig/Phillip Route PRN Reason Start Time Stop Time Status Last Admin Dose Admin Acetaminophen (Tylenol) 500 mg Q4H PRN GT Mild Pain/Temp > 100.5 05/27/19 07:45 06/19/19 20:29 06/05/19 08:18 Chlorhexidine Gluconate (Reina-Hex 2%) 1 applic DAILY@2000 TOPIC 05/27/19 20:00 06/26/19 19:59 06/05/19 20:24 Daptomycin 500 mg/ Sodium Chloride 55 ml @ 100 mls/hr Q48H IV 05/29/19 13:00 06/11/19 12:59 06/04/19 13:24 Dextrose/Sodium Chloride 1,000 ml @ 40 mls/hr Q24H IV 06/03/19 11:30 07/03/19 11:29 06/06/19 12:47 Lansoprazole (Prevacid) 30 mg BID NG 06/06/19 18:00 07/06/19 17:59 Methylprednisolone Sodium Succinate (Solu-MEDROL) 60 mg EVERY 12 HOURS IVP 06/04/19 21:00 07/04/19 20:59 06/06/19 08:59 Midodrine (Pro-Amatine) 2.5 mg Q8HR GT 06/06/19 14:00 07/06/19 13:59 Norepinephrine Bitartrate 4 mg/ Dextrose 250 ml @ 0 mls/hr Q24H IV 05/29/19 19:20 06/28/19 19:19 05/30/19 22:45 Piperacillin Sod/ Tazobactam Sod 2.25 gm/Dextrose 55 ml @ 110 mls/hr Q8HR@0400,1200,2000 IV 06/03/19 12:00 06/10/19 11:59 06/06/19 12:47 Arsen Whittaker MD Jun 06, 2019 13:40
[2019-06-06] MEDS: Acetaminophen 650mg/20.3ml GT PRN (13:52)
[2019-06-06] MEDS: DAPTOmycin 500 MG in NS 55 ML IV SCH (13:53)
--- NOTE | 2019-06-06 14:57 | Hematology/Onc Progress Note ---
Assessment/Plan Assessment/Plan # Anemia of chronic disease due to underlying chronic medical issues, multifactorial v Gi bleed --> Anemia workup has been reviewed, rule out gi bleed --> No evidence of hemolysis is noted, peripheral smear has been reviewed. --> Hgb goal >7. Transfuse prn. --> Epogen or iron at this time is not particularly indicated --> Medications have been reviewed --> low threshold for gi evaluation in case has occult + --> hgb trend: 9.3-->9.7-->8.1-->7.6-->8-->9.4-->9.2->7.5-->9.3->8 --> transf 05/28/19 with 1 unit prbc, 1 unit on 06/03 --> transfusion is a emergency, no family, no poa, is okay to transfuse # Right upper arm extremity axillary vein dvt --> agree to continue eliquis ONCE bleeding resolved --> continue for total of minimum of 3 months --> rescan arm in 3 mo # Thrombocytopenia is due to infection, i.e. cellulitis of upper extremity, likely picc line infection --> as per id on ax --> picc off --> levoflox/vanc-->zosyn/vanc--> zosyn-->dapto/zosyn --> plt trend 208-->132-->146k-->159 # Renal insufficiency --> per Dr. Mera # Pneumonia --> abx per id # Dehydration. --> goal of euvolemia # Paroxysmal Atrial fibrillation with rapid ventricular response was on amiodarone gtt, now in sinus rhythm. --> per cards On PO amiodarone 200 bid, Lopressor 25 bid # Dysphagia with ng tube # Dvt ppx eliquis--> now on hold The timing of this note does not necessarily reflect the time of the patient was seen. Greatly appreciate consultation. Subjective Constitutional: Denies: no symptoms, chills, fever, malaise, weakness, other HEENT: Denies: no symptoms, eye pain, blurred vision, tearing, double vision, ear pain, ear discharge, nose pain, nose congestion, throat pain, throat swelling, mouth pain, mouth swelling, other Cardiovascular: Denies: no symptoms, chest pain, edema, irregular heart rate, lightheadedness, palpitations, syncope, other Respiratory: Denies: no symptoms, cough, shortness of breath, SOB with excertion, SOB at rest, sputum, wheezing, other Gastrointestinal/Abdominal: Denies: no symptoms, abdomen distended, abdominal pain, black stools, tarry stools, blood in stool, constipated, diarrhea, difficulty swallowing, nausea, poor appetite, poor fluid intake, rectal bleeding , vomiting, other Genitourinary: Denies: no symptoms, burning, discharge, frequency, flank pain, hematuria, incontinence, pain, urgency, other Neurologic/Psychiatric: Denies: no symptoms, anxiety, depressed, emotional problems, headache, numbness, paresthesia, pre-existing deficit, seizure, tingling, tremors, weakness, other Endocrine: Denies: no symptoms, excessive sweating, flushing, intolerance to cold, intolerance to heat, increased hunger, increased thirst, increased urine, unexplained weight gain, unexplained weight loss, other Allergies: Coded Allergies: No Known Allergies (Unverified , 05/18/19) Subjective 05/24: awake and alert, v mask, labs reviewed, apixaban 05/25: as per gi, ngt and eliquis tolerated 05/26: pending clearance but still with ng and nonrebreather 05/27: hypoxic yesterday, deteriorated, coded, now intubated, icu, labs noted 05/28: icu, levophed gtt, hgb 7.6, repeat cbc 05/29: remains in the icu, given prbc last night, no bleeding 05/30: no events, no bleeding, ++ fredo and on pressor 05/31: intubated, bp better on pressor, no bleeding, coag ordered 06/02: reamins ill appearing, on vent, labs noted, on vent, poorly responsive 06/03: no events, no bleeding, labs noted, dw surgery, and Rn, monitoring plt 06/04: tolerating tube feeds, labs noted, in the icu 06/05: restraints, cxr unchanged, anticoagulants on hold until further notice 06/06: no events, no bleeding, no night sweats, no bleeding Objective Objective Current Medications Medications (Trade) Dose Ordered Sig/Phillip Route PRN Reason Start Time Stop Time Status Last Admin Dose Admin Acetaminophen (Tylenol) 500 mg Q4H PRN GT Mild Pain/Temp > 100.5 05/27/19 07:45 06/19/19 20:29 06/06/19 13:52 Chlorhexidine Gluconate (Reina-Hex 2%) 1 applic DAILY@1999 TOPIC 05/27/19 20:00 06/26/19 19:59 06/05/19 20:24 Daptomycin 500 mg/ Sodium Chloride 55 ml @ 100 mls/hr Q48H IV 05/29/19 13:00 06/11/19 12:59 06/06/19 13:53 Dextrose/Sodium Chloride 1,000 ml @ 40 mls/hr Q24H IV 06/03/19 11:30 07/03/19 11:29 06/06/19 12:47 Lansoprazole (Prevacid) 30 mg BID NG 06/06/19 18:00 07/06/19 17:59 Methylprednisolone Sodium Succinate (Solu-MEDROL) 60 mg EVERY 12 HOURS IVP 06/04/19 21:00 07/04/19 20:59 06/06/19 08:59 Midodrine (Pro-Amatine) 2.5 mg Q8HR GT 06/06/19 14:00 07/06/19 13:59 Norepinephrine Bitartrate 4 mg/ Dextrose 250 ml @ 0 mls/hr Q24H IV 05/29/19 19:20 06/28/19 19:19 05/30/19 22:45 Piperacillin Sod/ Tazobactam Sod 2.25 gm/Dextrose 55 ml @ 110 mls/hr Q8HR@0400,1200,1999 IV 06/03/19 12:00 06/10/19 11:59 06/06/19 12:47 Last 24 Hour Vital Signs Date Time Temp Pulse Resp B/P (MAP) Pulse Ox O2 Delivery O2 Flow Rate FiO2 06/06/19 14:00 82 26 153/61 (91) 97 06/06/19 13:00 83 19 153/71 (98) 98 06/06/19 12:59 84 23 60 06/06/19 12:00 60 06/06/19 12:00 Mechanical Ventilator 06/06/19 12:00 82 06/06/19 12:00 98.6 80 26 145/63 (90) 99 06/06/19 11:00 68 18 138/62 (87) 99 06/06/19 10:39 56 17 65 06/06/19 10:00 65 06/06/19 10:00 79 25 139/56 (83) 99 06/06/19 09:12 80 22 70 06/06/19 09:00 56 16 127/52 (77) 100 06/06/19 08:00 Mechanical Ventilator 06/06/19 08:00 70 06/06/19 08:00 98.5 70 17 126/44 (71) 100 06/06/19 08:00 56 06/06/19 07:00 77 27 154/62 (92) 100 06/06/19 06:41 76 24 70 06/06/19 06:09 76 27 113/43 (66) 100 06/06/19 05:28 95 28 70 06/06/19 05:13 89 27 154/56 (88) 98 06/06/19 05:00 87 23 162/57 (92) 98 06/06/19 04:00 Mechanical Ventilator 06/06/19 04:00 70 06/06/19 04:00 77 06/06/19 04:00 98.4 80 27 151/60 (90) 100 06/06/19 03:43 82 26 70 06/06/19 03:00 53 16 111/60 (77) 100 06/06/19 03:00 58 17 118/61 (80) 100 06/06/19 02:00 58 17 118/61 (80) 100 06/06/19 01:36 53 16 70 06/06/19 01:00 58 17 148/62 (90) 100 06/06/19 00:00 56 06/06/19 00:00 Mechanical Ventilator 06/06/19 00:00 50 06/06/19 00:00 53 06/06/19 00:00 98.6 53 26 124/57 (79) 100 06/05/19 23:25 75 28 70 06/05/19 23:00 68 16 113/40 (64) 100 06/05/19 22:00 68 26 122/49 (73) 100 06/05/19 21:00 68 29 156/63 (94) 96 06/05/19 20:35 74 30 70 06/05/19 20:00 Mechanical Ventilator 06/05/19 20:00 81 06/05/19 20:00 70 06/05/19 20:00 68 29 155/63 (93) 96 06/05/19 19:36 72 32 40 06/05/19 19:20 155/63 06/05/19 19:00 98.9 68 28 147/60 (89) 98 06/05/19 18:00 68 22 142/55 (84) 100 06/05/19 17:05 74 26 40 06/05/19 17:00 64 22 123/57 (79) 98 06/05/19 16:00 56 06/05/19 16:00 98.6 73 23 145/63 (90) 99 06/05/19 16:00 Mechanical Ventilator 06/05/19 16:00 50 06/05/19 15:00 65 24 106/41 (62) 99 06/05/19 14:00 98.3 53 18 125/43 (70) 98 06/05/19 13:20 92 23 50 06/05/19 13:00 91 28 149/60 (89) 99 06/05/19 12:00 45 06/05/19 12:00 74 26 121/44 (69) 99 06/05/19 12:00 84 06/05/19 12:00 Mechanical Ventilator 06/05/19 11:03 74 17 60 06/05/19 11:00 67 23 108/39 (62) 97 06/05/19 10:00 59 20 89/36 (53) 100 06/05/19 09:00 89 32 131/58 (82) 95 06/05/19 09:00 84 32 70 06/05/19 08:48 97.5 06/05/19 08:00 Mechanical Ventilator 06/05/19 08:00 98.1 84 32 139/57 (84) 95 06/05/19 08:00 45 06/05/19 08:00 59 06/05/19 07:02 69 18 45 06/05/19 07:00 92 29 148/66 (93) 95 06/05/19 06:00 98 25 140/71 (94) 92 06/05/19 05:37 95 25 06/05/19 05:09 89 26 80 06/05/19 05:00 87 27 149/65 (93) 99 06/05/19 04:00 97.5 71 25 133/49 (77) 100 06/05/19 04:00 Mechanical Ventilator 06/05/19 04:00 84 06/05/19 04:00 50 06/05/19 03:04 66 22 80 06/05/19 03:00 66 22 130/47 (74) 100 06/05/19 02:00 52 16 108/39 (62) 100 06/05/19 01:20 52 16 80 06/05/19 01:00 53 16 112/39 (63) 100 06/05/19 00:00 98.6 51 16 124/57 (79) 100 06/05/19 00:00 52 06/05/19 00:00 Mechanical Ventilator 06/05/19 00:00 80 06/04/19 23:22 48 16 80 06/04/19 23:00 51 16 113/40 (64) 100 06/04/19 22:00 56 15 134/46 (75) 98 06/04/19 21:23 50 06/04/19 21:00 58 14 126/45 (72) 100 06/04/19 20:56 56 20 100 06/04/19 20:00 97.6 62 15 149/55 (86) 06/04/19 20:00 50 06/04/19 20:00 58 06/04/19 20:00 Mechanical Ventilator 06/04/19 19:20 134/44 06/04/19 19:11 62 18 100 06/04/19 19:00 57 17 132/45 (74) 100 06/04/19 18:00 60 16 130/61 (84) 100 06/04/19 17:24 56 30 100 06/04/19 17:00 56 15 141/50 (80) 100 06/04/19 16:00 50 06/04/19 16:00 Mechanical Ventilator 06/04/19 16:00 98.7 84 22 181/73 (109) 98 06/04/19 16:00 85 06/04/19 15:00 71 28 109/44 (65) 96 Intake and Output 06/05/19 06/06/19 19:00 07:00 Intake Total 680 ml 860 ml Output Total 370 ml 326 ml Balance 310 ml 534 ml Free Water 80 ml IV Total 440 ml 520 ml Tube Feeding 160 ml 340 ml Output Urine Total 20 ml 26 ml Stool Total 350 ml 300 ml Labs Test 06/04/19 05:00 06/04/19 08:00 06/05/19 09:45 06/06/19 04:30 White Blood Count 7.8 K/UL (4.8-10.8) 7.4 K/UL (4.8-10.8) 8.2 K/UL (4.8-10.8) Red Blood Count 3.04 M/UL (4.70-6.10) 3.11 M/UL (4.70-6.10) 2.60 M/UL (4.70-6.10) Hemoglobin 9.3 G/DL (14.2-18.0) 9.3 G/DL (14.2-18.0) 8.0 G/DL (14.2-18.0) Hematocrit 27.5 % (42.0-52.0) 27.7 % (42.0-52.0) 23.4 % (42.0-52.0) Mean Corpuscular Volume 91 FL (80-99) 89 FL (80-99) 90 FL (80-99) Mean Corpuscular Hemoglobin 30.5 PG (27.0-31.0) 30.1 PG (27.0-31.0) 30.7 PG (27.0-31.0) Mean Corpuscular Hemoglobin Concent 33.7 G/DL (32.0-36.0) 33.8 G/DL (32.0-36.0) 34.2 G/DL (32.0-36.0) Red Cell Distribution Width 14.9 % (11.6-14.8) 15.5 % (11.6-14.8) 15.4 % (11.6-14.8) Platelet Count 146 K/UL (150-450) 159 K/UL (150-450) 165 K/UL (150-450) Mean Platelet Volume 5.3 FL (6.5-10.1) 5.8 FL (6.5-10.1) 5.2 FL (6.5-10.1) Neutrophils (%) (Auto) % (45.0-75.0) % (45.0-75.0) % (45.0-75.0) Lymphocytes (%) (Auto) % (20.0-45.0) % (20.0-45.0) % (20.0-45.0) Monocytes (%) (Auto) % (1.0-10.0) % (1.0-10.0) % (1.0-10.0) Eosinophils (%) (Auto) % (0.0-3.0) % (0.0-3.0) % (0.0-3.0) Basophils (%) (Auto) % (0.0-2.0) % (0.0-2.0) % (0.0-2.0) Differential Total Cells Counted 100 100 Neutrophils % (Manual) 85 % (45-75) 91 % (45-75) Lymphocytes % (Manual) 8 % (20-45) 4 % (20-45) Monocytes % (Manual) 6 % (1-10) 5 % (1-10) Eosinophils % (Manual) 0 % (0-3) 0 % (0-3) Basophils % (Manual) 1 % (0-2) 0 % (0-2) Band Neutrophils 0 % (0-8) 0 % (0-8) Platelet Estimate Decreased Adequate Platelet Morphology Normal Normal Hypochromasia 2+ Anisocytosis 1+ 1+ Sodium Level 137 MMOL/L (136-145) 137 MMOL/L (136-145) 138 MMOL/L (136-145) Potassium Level 3.2 MMOL/L (3.5-5.1) 3.0 MMOL/L (3.5-5.1) 3.3 MMOL/L (3.5-5.1) Chloride Level 105 MMOL/L (98-107) 102 MMOL/L (98-107) 103 MMOL/L (98-107) Carbon Dioxide Level 21 MMOL/L (21-32) 25 MMOL/L (21-32) 24 MMOL/L (21-32) Anion Gap 11 mmol/L (5-15) 10 mmol/L (5-15) 12 mmol/L (5-15) Blood Urea Nitrogen 64 mg/dL (7-18) 60 mg/dL (7-18) 66 mg/dL (7-18) Creatinine 4.8 MG/DL (0.55-1.30) 4.5 MG/DL (0.55-1.30) 4.8 MG/DL (0.55-1.30) Estimat Glomerular Filtration Rate mL/min (>60) mL/min (>60) mL/min (>60) Glucose Level 146 MG/DL (74-106) 226 MG/DL (74-106) 189 MG/DL (74-106) Uric Acid 5.2 MG/DL (2.6-7.2) Calcium Level 6.8 MG/DL (8.5-10.1) 6.9 MG/DL (8.5-10.1) 6.7 MG/DL (8.5-10.1) Phosphorus Level 4.0 MG/DL (2.5-4.9) 3.7 MG/DL (2.5-4.9) 4.0 MG/DL (2.5-4.9) Magnesium Level 2.0 MG/DL (1.8-2.4) 2.1 MG/DL (1.8-2.4) 2.1 MG/DL (1.8-2.4) Total Bilirubin 0.3 MG/DL (0.2-1.0) 0.5 MG/DL (0.2-1.0) Aspartate Amino Transf (AST/SGOT) 23 U/L (15-37) 54 U/L (15-37) Alanine Aminotransferase (ALT/SGPT) 16 U/L (12-78) 23 U/L (12-78) Alkaline Phosphatase 52 U/L (46-116) 61 U/L (46-116) C-Reactive Protein, Quantitative 6.3 mg/dL (0.00-0.90) 4.9 mg/dL (0.00-0.90) Pro-B-Type Natriuretic Peptide 7273 pg/mL (0-125) 7768 pg/mL (0-125) Total Protein 5.0 G/DL (6.4-8.2) 5.1 G/DL (6.4-8.2) Albumin 1.5 G/DL (3.4-5.0) 1.4 G/DL (3.4-5.0) Globulin 3.5 g/dL 3.7 g/dL Albumin/Globulin Ratio 0.4 (1.0-2.7) 0.4 (1.0-2.7) Random Vancomycin Level 19.6 ug/mL Total Creatine Kinase 13 U/L (26-308) Height (Feet): 5 Height (Inches): 7.00 Weight (Pounds): 206 Objective PE: Vitals: reviewed General Appearance: NAD HEENT: normocephalic, atraumatic++ ngt Neck: non-tender, normal alignment Respiratory/Chest: VENT++ Cardiovascular/Chest: normal peripheral pulses, normal rate Abdomen: normal bowel sounds, soft, nontender Extremities: normal range of motion ++ right arm swelling Suleman Addison MD Jun 06, 2019 14:57
--- NOTE | 2019-06-06 19:15 | Progress Note ---
DATE: 06/06/2019 SUBJECTIVE: The patient had an x-ray of his ankle last night. No other issues overnight. OBJECTIVE: Examination is relatively unchanged. The splint is removed. There is no significant skin breakdown. Remaining exam is limited. IMAGING STUDIES: Imaging studies of the left ankle showed no obvious fracture. ASSESSMENT: Left ankle pain. DISCUSSION: At this point, not sure exactly where the diagnosis fracture was. Based on the imaging studies, does not look like obvious fracture. At this point, the risk of splinting and the ankle always the benefit. Therefore what I am going to do is remove the splint and once he is little bit more medically stable, begin exam bleeding. We can continue to follow for any clinical pain in which case, he may benefit from some type of bracing when he ambulates. Please re-consult as needed. Ricardo Menon M.D. DR: KASHIF JOB#: [id number] CC:
[2019-06-06] MEDS: Dyna-Hex 2% Top Sol 2oz TOPIC SCH (20:00)
--- NOTE | 2019-06-06 21:44 | General Progress Note ---
Assessment/Plan Problem List: (1) SOB (shortness of breath) ICD Codes: R06.02 - Shortness of breath SNOMED: 638352228 (2) Cellulitis ICD Codes: L03.90 - Cellulitis, unspecified SNOMED: 245729818 (3) Cellulitis of upper extremity ICD Codes: L03.119 - Cellulitis of unspecified part of limb SNOMED: 582511680 Qualifiers: Qualified Codes: L03.113 - Cellulitis of right upper limb (4) Renal insufficiency ICD Codes: N28.9 - Disorder of kidney and ureter, unspecified SNOMED: 124283676, 966598926 (5) Renal failure (ARF), acute on chronic ICD Codes: N17.9 - Acute kidney failure, unspecified; N18.9 - Chronic kidney disease, unspecified SNOMED: 256506254 (6) Anemia ICD Codes: D64.9 - Anemia, unspecified SNOMED: 574821849 (7) Hypothyroidism ICD Codes: E03.9 - Hypothyroidism, unspecified SNOMED: 88253061 (8) UTI (urinary tract infection) ICD Codes: N39.0 - Urinary tract infection, site not specified SNOMED: 11217491 Status: progressing, unchanged Assessment/Plan: intubated chf sepsis pna afebrile poor prognosis le wound .surgeon is been consulted lwound and le fracture Subjective ROS Limited/Unobtainable: Yes Allergies: Coded Allergies: No Known Allergies (Unverified , 05/18/19) Objective Last 24 Hour Vital Signs Date Time Temp Pulse Resp B/P (MAP) Pulse Ox O2 Delivery O2 Flow Rate FiO2 06/06/19 20:47 77 29 50 06/06/19 20:00 98.3 76 20 146/65 (92) 99 06/06/19 20:00 50 06/06/19 19:22 88 29 50 06/06/19 19:00 76 20 135/59 (84) 99 06/06/19 18:00 65 20 131/50 (77) 99 06/06/19 17:00 83 30 154/67 (96) 98 06/06/19 16:31 78 26 60 06/06/19 16:00 90 06/06/19 16:00 84 27 149/64 (92) 98 06/06/19 16:00 Mechanical Ventilator 06/06/19 16:00 60 1/10/20 15:00 86 23 149/64 (92) 98 06/06/19 14:52 70 26 60 06/06/19 14:00 82 26 153/61 (91) 97 06/06/19 13:00 83 19 153/71 (98) 98 06/06/19 12:59 84 23 60 06/06/19 12:00 60 06/06/19 12:00 Mechanical Ventilator 06/06/19 12:00 82 06/06/19 12:00 98.6 80 26 145/63 (90) 99 06/06/19 11:00 68 18 138/62 (87) 99 06/06/19 10:39 56 17 65 06/06/19 10:00 65 06/06/19 10:00 79 25 139/56 (83) 99 06/06/19 09:12 80 22 70 06/06/19 09:00 56 16 127/52 (77) 100 06/06/19 08:00 Mechanical Ventilator 06/06/19 08:00 70 06/06/19 08:00 98.5 70 17 126/44 (71) 100 06/06/19 08:00 56 06/06/19 07:00 77 27 154/62 (92) 100 06/06/19 06:41 76 24 70 06/06/19 06:09 76 27 113/43 (66) 100 06/06/19 05:28 95 28 70 06/06/19 05:13 89 27 154/56 (88) 98 06/06/19 05:00 87 23 162/57 (92) 98 06/06/19 04:00 Mechanical Ventilator 06/06/19 04:00 70 06/06/19 04:00 77 06/06/19 04:00 98.4 80 27 151/60 (90) 100 06/06/19 03:43 82 26 70 06/06/19 03:00 53 16 111/60 (77) 100 06/06/19 03:00 58 17 118/61 (80) 100 06/06/19 02:00 58 17 118/61 (80) 100 06/06/19 01:36 53 16 70 06/06/19 01:00 58 17 148/62 (90) 100 06/06/19 00:00 56 1/10/20 00:00 Mechanical Ventilator 06/06/19 00:00 50 06/06/19 00:00 53 06/06/19 00:00 98.6 53 26 124/57 (79) 100 06/05/19 23:25 75 28 70 06/05/19 23:00 68 16 113/40 (64) 100 06/05/19 22:00 68 26 122/49 (73) 100 Intake and Output 06/05/19 06/06/19 19:00 07:00 Intake Total 680 ml 860 ml Output Total 370 ml 326 ml Balance 310 ml 534 ml Free Water 80 ml IV Total 440 ml 520 ml Tube Feeding 160 ml 340 ml Output Urine Total 20 ml 26 ml Stool Total 350 ml 300 ml Laboratory Tests 06/06/19 04:30: White Blood Count 8.2, Red Blood Count 2.60L, Hemoglobin 8.0L, Hematocrit 23.4L , Mean Corpuscular Volume 90, Mean Corpuscular Hemoglobin 30.7, Mean Corpuscular Hemoglobin Concent 34.2, Red Cell Distribution Width 15.4H, Platelet Count 165, Mean Platelet Volume 5.2L, Neutrophils (%) (Auto) , Lymphocytes (%) (Auto) , Monocytes (%) (Auto) , Eosinophils (%) (Auto) , Basophils (%) (Auto) , Sodium Level 138, Potassium Level 3.3L, Chloride Level 103, Carbon Dioxide Level 24, Anion Gap 12, Blood Urea Nitrogen 66H, Creatinine 4.8H, Estimat Glomerular Filtration Rate , Glucose Level 189H, Calcium Level 6.7L, Phosphorus Level 4.0, Magnesium Level 2.1, Total Creatine Kinase 13L Height (Feet): 5 Height (Inches): 7.00 Weight (Pounds): 206 Respiratory/Chest: lungs clear Abdomen: soft Joslyn Wiggins MD Jun 06, 2019 21:44
--- NOTE | 2019-06-06 23:30 | Cardiology Progress Note ---
Assessment/Plan Assessment/Plan 1. Atrial fibrillation with rapid ventricular response, converted to sinus rhythm, continue amiodarone. 2. Septic shock, resolved, likely due to bilateral PNA, on midodrine. 3. Oliguric acute kidney injury, CXR shows B/L pulmonary edema, on HD. 4. Small pericardial effusion with pleural effusion, s/p HD. 5. B/L pleural effusion. 6. Acute respiratory failure, failed weaning. Subjective Subjective Sinus rhythm at rate of 86. Intubated. Objective Last 24 Hour Vital Signs Date Time Temp Pulse Resp B/P (MAP) Pulse Ox O2 Delivery O2 Flow Rate FiO2 06/06/19 22:00 86 34 151/77 (101) 96 06/06/19 21:00 87 24 154/66 (95) 96 06/06/19 20:47 77 29 50 06/06/19 20:00 98.3 76 20 146/65 (92) 99 06/06/19 20:00 50 06/06/19 20:00 90 06/06/19 20:00 Mechanical Ventilator 06/06/19 19:22 88 29 50 06/06/19 19:00 76 20 135/59 (84) 99 06/06/19 18:00 65 20 131/50 (77) 99 06/06/19 17:00 83 30 154/67 (96) 98 06/06/19 16:31 78 26 60 06/06/19 16:00 90 06/06/19 16:00 84 27 149/64 (92) 98 06/06/19 16:00 Mechanical Ventilator 06/06/19 16:00 60 06/06/19 15:00 86 23 149/64 (92) 98 06/06/19 14:52 70 26 60 06/06/19 14:00 82 26 153/61 (91) 97 06/06/19 13:00 83 19 153/71 (98) 98 06/06/19 12:59 84 23 60 06/06/19 12:00 60 06/06/19 12:00 Mechanical Ventilator 06/06/19 12:00 82 06/06/19 12:00 98.6 80 26 145/63 (90) 99 06/06/19 11:00 68 18 138/62 (87) 99 06/06/19 10:39 56 17 65 06/06/19 10:00 65 06/06/19 10:00 79 25 139/56 (83) 99 06/06/19 09:12 80 22 70 06/06/19 09:00 56 16 127/52 (77) 100 06/06/19 08:00 Mechanical Ventilator 06/06/19 08:00 70 06/06/19 08:00 98.5 70 17 126/44 (71) 100 06/06/19 08:00 56 06/06/19 07:00 77 27 154/62 (92) 100 06/06/19 06:41 76 24 70 06/06/19 06:09 76 27 113/43 (66) 100 06/06/19 05:28 95 28 70 06/06/19 05:13 89 27 154/56 (88) 98 06/06/19 05:00 87 23 162/57 (92) 98 06/06/19 04:00 Mechanical Ventilator 06/06/19 04:00 70 06/06/19 04:00 77 06/06/19 04:00 98.4 80 27 151/60 (90) 100 06/06/19 03:43 82 26 70 06/06/19 03:00 53 16 111/60 (77) 100 06/06/19 03:00 58 17 118/61 (80) 100 06/06/19 02:00 58 17 118/61 (80) 100 06/06/19 01:36 53 16 70 06/06/19 01:00 58 17 148/62 (90) 100 06/06/19 00:00 56 06/06/19 00:00 Mechanical Ventilator 06/06/19 00:00 50 06/06/19 00:00 53 06/06/19 00:00 98.6 53 26 124/57 (79) 100 Intake and Output 06/05/19 06/06/19 19:00 07:00 Intake Total 680 ml 860 ml Output Total 370 ml 326 ml Balance 310 ml 534 ml Free Water 80 ml IV Total 440 ml 520 ml Tube Feeding 160 ml 340 ml Output Urine Total 20 ml 26 ml Stool Total 350 ml 300 ml 2D Echo: EF 65%,Mod AR,Elevated RAP, RVSP 30,Small pericardial eff, pleural effusion Laboratory Tests Test 06/06/19 04:30 White Blood Count 8.2 K/UL (4.8-10.8) Red Blood Count 2.60 M/UL (4.70-6.10) L Hemoglobin 8.0 G/DL (14.2-18.0) L Hematocrit 23.4 % (42.0-52.0) L Mean Corpuscular Volume 90 FL (80-99) Mean Corpuscular Hemoglobin 30.7 PG (27.0-31.0) Mean Corpuscular Hemoglobin Concent 34.2 G/DL (32.0-36.0) Red Cell Distribution Width 15.4 % (11.6-14.8) H Platelet Count 165 K/UL (150-450) Mean Platelet Volume 5.2 FL (6.5-10.1) L Neutrophils (%) (Auto) % (45.0-75.0) Lymphocytes (%) (Auto) % (20.0-45.0) Monocytes (%) (Auto) % (1.0-10.0) Eosinophils (%) (Auto) % (0.0-3.0) Basophils (%) (Auto) % (0.0-2.0) Sodium Level 138 MMOL/L (136-145) Potassium Level 3.3 MMOL/L (3.5-5.1) L Chloride Level 103 MMOL/L (98-107) Carbon Dioxide Level 24 MMOL/L (21-32) Anion Gap 12 mmol/L (5-15) Blood Urea Nitrogen 66 mg/dL (7-18) H Creatinine 4.8 MG/DL (0.55-1.30) H Estimat Glomerular Filtration Rate mL/min (>60) Glucose Level 189 MG/DL (74-106) H Calcium Level 6.7 MG/DL (8.5-10.1) L Phosphorus Level 4.0 MG/DL (2.5-4.9) Magnesium Level 2.1 MG/DL (1.8-2.4) Total Creatine Kinase 13 U/L (26-308) L Objective HEENT: Atraumatic and normocephalic. Anicteric. Pupils are equal, round, and reactive to light and accommodation. Extraocular muscles intact. NECK: JVP less than 5 cm. No carotid bruit. Carotid upstroke is 2+ bilaterally. CARDIOVASCULAR: Normal S1, S2. Regular rate and rhythm. No murmurs, gallops, or rubs. PMI is at fourth intercostal space in the midclavicular line. LUNGS: Diminished both bases. ABDOMEN: Soft, nontender, and nondistended. No hepatosplenomegaly. Positive bowel sounds. EXTREMITIES: No evidence of edema, clubbing, or cyanosis. Del Garcia MD Jun 06, 2019 23:30
[2019-06-07] VITALS (24 sets, daily range): BP systolic 103–181; BP diastolic 45–98
--- NOTE | 2019-06-07 03:15 | Progress Note ---
DATE: 06/06/2019 SUBJECTIVE: The patient was transferred to [facility]. The patient is alert. He was agitated earlier, opening eyes. MENTAL STATUS EXAMINATION: The patient is alert, confused, and disoriented. Mood is neutral to agitation. Affect is flat. Thought process, there is a paucity of thought content. Thought content, no suicidal or homicidal ideation. ASSESSMENT: Encephalopathy. PLAN: Continue IM antipsychotics. Piter Pedraza M.D. DR: LUCERO JOB#: [id number] CC:
[2019-06-07] MEDS: Zosyn 2.25 gm in D5W 55ml IV SCH ×3 (03:33→21:27)
[2019-06-07 05:40] LABS: HEMOGLOBIN 8.4 G/DL (14.2-18.0); MEAN CORPUSCULAR VOLUME 90 FL (80-99); PLATELET COUNT 226 K/UL (150-450); RED BLOOD COUNT 2.77 M/UL (4.70-6.10); RED CELL DISTRIBUTION WIDTH 15.5 % (11.6-14.8); WHITE BLOOD COUNT 11.6 K/UL (4.8-10.8)
[2019-06-07 06:29] LABS: ALANINE AMINOTRANSFERASE 26 U/L (12-78); ALBUMIN 1.6 G/DL (3.4-5.0); ALBUMIN/GLOBULIN RATIO 0.4 (1.0-2.7); ALKALINE PHOSPHATASE 60 U/L (46-116); ANION GAP 10 mmol/L (5-15); ASPARTATE AMINO TRANSFERASE 31 U/L (15-37); BILIRUBIN,TOTAL 0.3 MG/DL (0.2-1.0); BLOOD UREA NITROGEN 78 mg/dL (7-18); CALCIUM 6.8 MG/DL (8.5-10.1); CARBON DIOXIDE 24 MMOL/L (21-32); CHLORIDE 103 MMOL/L (98-107); CREATININE 5.4 MG/DL (0.55-1.30); PHOSPHORUS 3.9 MG/DL (2.5-4.9); POTASSIUM 3.3 MMOL/L (3.5-5.1); SODIUM 137 MMOL/L (136-145)
[2019-06-07] MEDS: Solu-MEDROL 125mg Inj IVP SCH ×2 (09:28→21:27)
--- NOTE | 2019-06-07 10:30 | General Progress Note ---
Assessment/Plan Problem List: (1) Dysphagia ICD Codes: R13.10 - Dysphagia, unspecified SNOMED: 10563254, 100233561 (2) Anemia ICD Codes: D64.9 - Anemia, unspecified SNOMED: 012705164 (3) Hypothyroidism ICD Codes: E03.9 - Hypothyroidism, unspecified SNOMED: 64822172 (4) Thrombus ICD Codes: I82.90 - Acute embolism and thrombosis of unspecified vein SNOMED: 83511887, 05931202, 498505101, 961137053 (5) A-fib ICD Codes: I48.91 - Unspecified atrial fibrillation SNOMED: 72025248 Status: progressing, unchanged Assessment/Plan: intubated in ICU NGTF fu pulm fu labs abx per ID on HD poor prognosis PEG if needed Subjective ROS Limited/Unobtainable: No Allergies: Coded Allergies: No Known Allergies (Unverified , 05/18/19) Subjective coded today Objective Last 24 Hour Vital Signs Date Time Temp Pulse Resp B/P (MAP) Pulse Ox O2 Delivery O2 Flow Rate FiO2 06/07/19 10:00 96 32 161/88 (112) 94 06/07/19 09:15 90 34 40 06/07/19 09:00 83 28 154/71 (98) 96 06/07/19 08:00 84 33 148/73 (98) 97 06/07/19 07:56 60 19 40 06/07/19 07:00 84 35 153/82 (105) 96 06/07/19 06:00 80 29 154/66 (95) 96 06/07/19 05:00 57 16 105/47 (66) 96 06/07/19 04:41 57 18 40 06/07/19 04:00 98.5 90 28 144/55 (84) 96 06/07/19 04:00 40 06/07/19 04:00 Mechanical Ventilator 06/07/19 04:00 93 06/07/19 03:20 96 35 40 06/07/19 03:00 103 32 149/83 (105) 06/07/19 02:00 83 28 153/60 (91) 95 06/07/19 01:00 83 28 150/55 (86) 95 06/07/19 00:31 91 32 40 06/07/19 00:00 40 06/07/19 00:00 Mechanical Ventilator 06/07/19 00:00 89 06/07/19 00:00 97.8 99 33 159/71 (100) 95 06/06/19 23:25 77 35 40 06/06/19 23:00 63 15 143/66 (91) 97 06/06/19 22:00 86 34 151/77 (101) 96 06/06/19 21:00 87 24 154/66 (95) 96 06/06/19 20:47 77 29 50 06/06/19 20:00 98.3 76 20 146/65 (92) 99 06/06/19 20:00 50 06/06/19 20:00 82 06/06/19 20:00 Mechanical Ventilator 06/06/19 19:22 88 29 50 06/06/19 19:00 76 20 135/59 (84) 99 06/06/19 18:00 65 20 131/50 (77) 99 06/06/19 17:00 83 30 154/67 (96) 98 06/06/19 16:31 78 26 60 06/06/19 16:00 90 06/06/19 16:00 84 27 149/64 (92) 98 06/06/19 16:00 Mechanical Ventilator 06/06/19 16:00 60 06/06/19 15:00 86 23 149/64 (92) 98 06/06/19 14:52 70 26 60 06/06/19 14:00 82 26 153/61 (91) 97 06/06/19 13:00 83 19 153/71 (98) 98 06/06/19 12:59 84 23 60 06/06/19 12:00 60 06/06/19 12:00 Mechanical Ventilator 06/06/19 12:00 82 06/06/19 12:00 98.6 80 26 145/63 (90) 99 06/06/19 11:00 68 18 138/62 (87) 99 06/06/19 10:39 56 17 65 Intake and Output 06/06/19 06/07/19 19:00 07:00 Intake Total 1130 ml 990 ml Output Total 281 ml 235 ml Balance 849 ml 755 ml IV Total 650 ml 510 ml Tube Feeding 480 ml 480 ml Output Urine Total 21 ml 35 ml Stool Total 260 ml 200 ml Laboratory Tests 06/07/19 04:20: White Blood Count 11.6H, Red Blood Count 2.77L, Hemoglobin 8.4L, Hematocrit 25.0L, Mean Corpuscular Volume 90, Mean Corpuscular Hemoglobin 30.1, Mean Corpuscular Hemoglobin Concent 33.4, Red Cell Distribution Width 15.5H, Platelet Count 226, Mean Platelet Volume 4.7L, Neutrophils (%) (Auto) , Lymphocytes (%) (Auto) , Monocytes (%) (Auto) , Eosinophils (%) (Auto) , Basophils (%) (Auto) , Differential Total Cells Counted 100, Neutrophils % ( Manual) 96H, Lymphocytes % (Manual) 2L, Monocytes % (Manual) 2, Eosinophils % ( Manual) 0, Basophils % (Manual) 0, Band Neutrophils 0, Platelet Estimate Adequate, Platelet Morphology Normal, Sodium Level 137, Potassium Level 3.3L, Chloride Level 103, Carbon Dioxide Level 24, Anion Gap 10, Blood Urea Nitrogen 78H, Creatinine 5.4H, Estimat Glomerular Filtration Rate , Glucose Level 240H, Uric Acid 5.6, Calcium Level 6.8L, Phosphorus Level 3.9, Magnesium Level 2.2, Total Bilirubin 0.3, Aspartate Amino Transf (AST/SGOT) 31, Alanine Aminotransferase (ALT/SGPT) 26, Alkaline Phosphatase 60, C-Reactive Protein, Quantitative 1.8H, Pro-B-Type Natriuretic Peptide 9495H, Total Protein 5.2L, Albumin 1.6L, Globulin 3.6, Albumin/Globulin Ratio 0.4L, Random Vancomycin Level 16.7 Height (Feet): 5 Height (Inches): 7.00 Weight (Pounds): 209 General Appearance: no apparent distress EENT: normal ENT inspection Neck: supple Cardiovascular: tachycardia Respiratory/Chest: decreased breath sounds Abdomen: normal bowel sounds, non tender, soft Extremities: non-tender Valentino Lino MD Jun 07, 2019 10:30
--- NOTE | 2019-06-07 11:20 | Pulmonology Progress Note ---
Assessment/Plan Assessment/Plan IMPRESSION AND PLAN: 1. Pneumonia. Bilateral upper lobe. 2. Cellulitis. 3. History of COPD. 4. Hypertension. 5. Afib with RVR; rate controlled 6. Respiratory failure; on vent DISCUSSION: 1. Intubated; on AC mode; will begin weaning 2. Agree with present management and care. 3. Continue medications and HHN with atrovent only 4. Check stool for C diff Arsen Whittaker M.D. Subjective Interval Events: Having diarrhea; remains intubated Constitutional: Reports: no symptoms HEENT: Repors: no symptoms Respiratory: Reports: no symptoms Cardiovascular: Reports: no symptoms Gastrointestinal/Abdominal: Reports: no symptoms Genitourinary: Reports: no symptoms Allergies: Coded Allergies: No Known Allergies (Unverified , 05/18/19) Objective Last 24 Hour Vital Signs Date Time Temp Pulse Resp B/P (MAP) Pulse Ox O2 Delivery O2 Flow Rate FiO2 06/07/19 10:00 96 32 161/88 (112) 94 06/07/19 09:15 90 34 40 06/07/19 09:00 83 28 154/71 (98) 96 06/07/19 08:00 84 33 148/73 (98) 97 06/07/19 07:56 60 19 40 06/07/19 07:00 84 35 153/82 (105) 96 06/07/19 06:00 80 29 154/66 (95) 96 06/07/19 05:00 57 16 105/47 (66) 96 06/07/19 04:41 57 18 40 06/07/19 04:00 98.5 90 28 144/55 (84) 96 06/07/19 04:00 40 06/07/19 04:00 Mechanical Ventilator 06/07/19 04:00 93 06/07/19 03:20 96 35 40 06/07/19 03:00 103 32 149/83 (105) 06/07/19 02:00 83 28 153/60 (91) 95 06/07/19 01:00 83 28 150/55 (86) 95 06/07/19 00:31 91 32 40 06/07/19 00:00 40 06/07/19 00:00 Mechanical Ventilator 06/07/19 00:00 89 06/07/19 00:00 97.8 99 33 159/71 (100) 95 06/06/19 23:25 77 35 40 06/06/19 23:00 63 15 143/66 (91) 97 06/06/19 22:00 86 34 151/77 (101) 96 06/06/19 21:00 87 24 154/66 (95) 96 06/06/19 20:47 77 29 50 06/06/19 20:00 98.3 76 20 146/65 (92) 99 06/06/19 20:00 50 06/06/19 20:00 82 06/06/19 20:00 Mechanical Ventilator 06/06/19 19:22 88 29 50 06/06/19 19:00 76 20 135/59 (84) 99 06/06/19 18:00 65 20 131/50 (77) 99 06/06/19 17:00 83 30 154/67 (96) 98 06/06/19 16:31 78 26 60 06/06/19 16:00 90 06/06/19 16:00 84 27 149/64 (92) 98 06/06/19 16:00 Mechanical Ventilator 06/06/19 16:00 60 06/06/19 15:00 86 23 149/64 (92) 98 06/06/19 14:52 70 26 60 06/06/19 14:00 82 26 153/61 (91) 97 06/06/19 13:00 83 19 153/71 (98) 98 06/06/19 12:59 84 23 60 06/06/19 12:00 60 06/06/19 12:00 Mechanical Ventilator 06/06/19 12:00 82 06/06/19 12:00 98.6 80 26 145/63 (90) 99 Intake and Output 06/06/19 06/07/19 19:00 07:00 Intake Total 1130 ml 990 ml Output Total 281 ml 235 ml Balance 849 ml 755 ml IV Total 650 ml 510 ml Tube Feeding 480 ml 480 ml Output Urine Total 21 ml 35 ml Stool Total 260 ml 200 ml General Appearance: no acute distress HEENT: normocephalic Respiratory/Chest: chest wall non-tender, lungs clear Cardiovascular: normal peripheral pulses, normal rate Abdomen: normal bowel sounds Laboratory Tests 06/07/19 04:20: White Blood Count 11.6H, Red Blood Count 2.77L, Hemoglobin 8.4L, Hematocrit 25.0L, Mean Corpuscular Volume 90, Mean Corpuscular Hemoglobin 30.1, Mean Corpuscular Hemoglobin Concent 33.4, Red Cell Distribution Width 15.5H, Platelet Count 226, Mean Platelet Volume 4.7L, Neutrophils (%) (Auto) , Lymphocytes (%) (Auto) , Monocytes (%) (Auto) , Eosinophils (%) (Auto) , Basophils (%) (Auto) , Differential Total Cells Counted 100, Neutrophils % ( Manual) 96H, Lymphocytes % (Manual) 2L, Monocytes % (Manual) 2, Eosinophils % ( Manual) 0, Basophils % (Manual) 0, Band Neutrophils 0, Platelet Estimate Adequate, Platelet Morphology Normal, Sodium Level 137, Potassium Level 3.3L, Chloride Level 103, Carbon Dioxide Level 24, Anion Gap 10, Blood Urea Nitrogen 78H, Creatinine 5.4H, Estimat Glomerular Filtration Rate , Glucose Level 240H, Uric Acid 5.6, Calcium Level 6.8L, Phosphorus Level 3.9, Magnesium Level 2.2, Total Bilirubin 0.3, Aspartate Amino Transf (AST/SGOT) 31, Alanine Aminotransferase (ALT/SGPT) 26, Alkaline Phosphatase 60, C-Reactive Protein, Quantitative 1.8H, Pro-B-Type Natriuretic Peptide 9495H, Total Protein 5.2L, Albumin 1.6L, Globulin 3.6, Albumin/Globulin Ratio 0.4L, Random Vancomycin Level 16.7 Current Medications Medications (Trade) Dose Ordered Sig/Phillip Route PRN Reason Start Time Stop Time Status Last Admin Dose Admin Acetaminophen (Tylenol) 500 mg Q4H PRN GT Mild Pain/Temp > 100.5 05/27/19 07:45 06/19/19 20:29 06/06/19 13:52 Chlorhexidine Gluconate (Reina-Hex 2%) 1 applic DAILY@1999 TOPIC 05/27/19 20:00 06/26/19 19:59 06/06/19 20:00 Daptomycin 500 mg/ Sodium Chloride 55 ml @ 100 mls/hr Q48H IV 05/29/19 13:00 06/11/19 12:59 06/06/19 13:53 Dextrose/Sodium Chloride 1,000 ml @ 40 mls/hr Q24H IV 06/03/19 11:30 07/03/19 11:29 06/06/19 12:47 Lansoprazole (Prevacid) 30 mg BID NG 06/06/19 18:00 07/06/19 17:59 06/07/19 09:28 Methylprednisolone Sodium Succinate (Solu-MEDROL) 60 mg EVERY 12 HOURS IVP 06/04/19 21:00 07/04/19 20:59 06/07/19 09:28 Midodrine (Pro-Amatine) 2.5 mg Q8HR GT 06/06/19 14:00 07/06/19 13:59 Norepinephrine Bitartrate 4 mg/ Dextrose 250 ml @ 0 mls/hr Q24H IV 05/29/19 19:20 06/28/19 19:19 05/30/19 22:45 Piperacillin Sod/ Tazobactam Sod 2.25 gm/Dextrose 55 ml @ 110 mls/hr Q8HR@0400,1200,2000 IV 06/03/19 12:00 06/10/19 11:59 06/07/19 03:33 Potassium Chloride (K-Dur) 20 meq ONCE NG 06/07/19 10:00 06/07/19 11:59 06/07/19 09:29 Arsen Whittaker MD Jun 07, 2019 11:19
--- NOTE | 2019-06-07 11:31 | Nephrology Progress Note ---
Assessment/Plan Problem List: (1) Renal failure (ARF), acute on chronic Assessment: Cr rising (2) Cellulitis of upper extremity (3) A-fib (4) Pneumonia (5) UTI (urinary tract infection) (6) Anemia Assessment: worsened (7) Hypothyroidism Assessment - KIMO on CKD - Urinary tract infection. - Anemia- - Dehydration. - Cellulitis of Upper extremity - HTN Plan dialysis today dialysis done 06/02 - repeat 06/04 and then 06/07 DC Midodrine DC IV IV Calcium and PO Vit D Transfuse one unit PRBcs in ICU- intubated BP meds and Mind altering meds discontinued On midodrine check vanco levels - hold vanco doses previously: Per cardiology Anemia kumari- Avoid Nephrotoxics Per ID Allow CHANDA inhibitor to continue as long as renal function does not worsen. PICC line has been removed. CXR: Increased right pleural effusion and similar left pleural effusion. Increased interstitial and hazy opacities throughout the lungs. Subjective ROS Limited/Unobtainable: Yes Objective Objective Last 24 Hour Vital Signs Date Time Temp Pulse Resp B/P (MAP) Pulse Ox O2 Delivery O2 Flow Rate FiO2 06/07/19 10:00 96 32 161/88 (112) 94 06/07/19 09:15 90 34 40 06/07/19 09:00 83 28 154/71 (98) 96 06/07/19 08:00 84 33 148/73 (98) 97 06/07/19 07:56 60 19 40 06/07/19 07:00 84 35 153/82 (105) 96 06/07/19 06:00 80 29 154/66 (95) 96 06/07/19 05:00 57 16 105/47 (66) 96 06/07/19 04:41 57 18 40 06/07/19 04:00 98.5 90 28 144/55 (84) 96 06/07/19 04:00 40 06/07/19 04:00 Mechanical Ventilator 06/07/19 04:00 93 06/07/19 03:20 96 35 40 06/07/19 03:00 103 32 149/83 (105) 06/07/19 02:00 83 28 153/60 (91) 95 06/07/19 01:00 83 28 150/55 (86) 95 06/07/19 00:31 91 32 40 06/07/19 00:00 40 06/07/19 00:00 Mechanical Ventilator 06/07/19 00:00 89 06/07/19 00:00 97.8 99 33 159/71 (100) 95 06/06/19 23:25 77 35 40 06/06/19 23:00 63 15 143/66 (91) 97 06/06/19 22:00 86 34 151/77 (101) 96 06/06/19 21:00 87 24 154/66 (95) 96 06/06/19 20:47 77 29 50 06/06/19 20:00 98.3 76 20 146/65 (92) 99 06/06/19 20:00 50 06/06/19 20:00 82 06/06/19 20:00 Mechanical Ventilator 06/06/19 19:22 88 29 50 06/06/19 19:00 76 20 135/59 (84) 99 06/06/19 18:00 65 20 131/50 (77) 99 06/06/19 17:00 83 30 154/67 (96) 98 06/06/19 16:31 78 26 60 06/06/19 16:00 90 06/06/19 16:00 84 27 149/64 (92) 98 06/06/19 16:00 Mechanical Ventilator 06/06/19 16:00 60 06/06/19 15:00 86 23 149/64 (92) 98 06/06/19 14:52 70 26 60 06/06/19 14:00 82 26 153/61 (91) 97 06/06/19 13:00 83 19 153/71 (98) 98 06/06/19 12:59 84 23 60 06/06/19 12:00 60 06/06/19 12:00 Mechanical Ventilator 06/06/19 12:00 82 06/06/19 12:00 98.6 80 26 145/63 (90) 99 Intake and Output 06/06/19 06/07/19 19:00 07:00 Intake Total 1130 ml 990 ml Output Total 281 ml 235 ml Balance 849 ml 755 ml IV Total 650 ml 510 ml Tube Feeding 480 ml 480 ml Output Urine Total 21 ml 35 ml Stool Total 260 ml 200 ml Laboratory Tests 06/07/19 04:20: White Blood Count 11.6H, Red Blood Count 2.77L, Hemoglobin 8.4L, Hematocrit 25.0L, Mean Corpuscular Volume 90, Mean Corpuscular Hemoglobin 30.1, Mean Corpuscular Hemoglobin Concent 33.4, Red Cell Distribution Width 15.5H, Platelet Count 226, Mean Platelet Volume 4.7L, Neutrophils (%) (Auto) , Lymphocytes (%) (Auto) , Monocytes (%) (Auto) , Eosinophils (%) (Auto) , Basophils (%) (Auto) , Differential Total Cells Counted 100, Neutrophils % ( Manual) 96H, Lymphocytes % (Manual) 2L, Monocytes % (Manual) 2, Eosinophils % ( Manual) 0, Basophils % (Manual) 0, B Current Medications Medications (Trade) Dose Ordered Sig/Phillip Route PRN Reason Start Time Stop Time Status Last Admin Dose Admin Acetaminophen (Tylenol) 500 mg Q4H PRN GT Mild Pain/Temp > 100.5 05/27/19 07:45 06/19/19 20:29 06/06/19 13:52 Calcium Gluconate 1 gm/Sodium Chloride 120 ml @ 240 mls/hr ONCE ONCE IVPB 06/07/19 12:00 06/07/19 12:29 Chlorhexidine Gluconate (Reina-Hex 2%) 1 applic DAILY@1999 TOPIC 05/27/19 20:00 06/26/19 19:59 06/06/19 20:00 Daptomycin 500 mg/ Sodium Chloride 55 ml @ 100 mls/hr Q48H IV 05/29/19 13:00 06/11/19 12:59 06/06/19 13:53 Lansoprazole (Prevacid) 30 mg BID NG 06/06/19 18:00 07/06/19 17:59 06/07/19 09:28 Methylprednisolone Sodium Succinate (Solu-MEDROL) 60 mg EVERY 12 HOURS IVP 06/04/19 21:00 07/04/19 20:59 06/07/19 09:28 Norepinephrine Bitartrate 4 mg/ Dextrose 250 ml @ 0 mls/hr Q24H IV 05/29/19 19:20 06/28/19 19:19 05/30/19 22:45 Piperacillin Sod/ Tazobactam Sod 2.25 gm/Dextrose 55 ml @ 110 mls/hr Q8HR@0400,1200,1999 IV 06/03/19 12:00 06/10/19 11:59 06/07/19 03:33 Potassium Chloride (K-Dur) 20 meq ONCE NG 06/07/19 10:00 06/07/19 11:59 06/07/19 09:29 Vitamin D (Vitamin D) 5,000 intlu DAILY GT 06/07/19 13:00 07/07/19 12:59 and Neutrophils 0, Platelet Estimate Adequate, Platelet Morphology Normal, Sodium Level 137, Potassium Level 3.3L, Chloride Level 103, Carbon Dioxide Level 24, Anion Gap 10, Blood Urea Nitrogen 78H, Creatinine 5.4H, Estimat Glomerular Filtration Rate , Glucose Level 240H, Uric Acid 5.6, Calcium Level 6.8L, Phosphorus Level 3.9, Magnesium Level 2.2, Total Bilirubin 0.3, Aspartate Amino Transf (AST/SGOT) 31, Alanine Aminotransferase (ALT/SGPT) 26, Alkaline Phosphatase 60, C-Reactive Protein, Quantitative 1.8H, Pro-B-Type Natriuretic Peptide 9495H, Total Protein 5.2L, Albumin 1.6L, Globulin 3.6, Albumin/Globulin Ratio 0.4L, Random Vancomycin Level 16.7 Height (Feet): 5 Height (Inches): 7.00 Weight (Pounds): 209 General Appearance: no apparent distress Cardiovascular: tachycardia Respiratory/Chest: decreased breath sounds Abdomen: soft Objective no change Reinier Mera MD Jun 07, 2019 11:31
[2019-06-07] MEDS ORDERED: Calcium Gluconate 10% 1 GM in NS 110 ML IVPB ONE (12:00)
[2019-06-07] MEDS: Vitamin D 1000 IU Tab GT SCH (12:55)
[2019-06-07] MEDS: Amiodarone 200mg tab ORAL SCH (16:18)
[2019-06-07] MEDS: Metoprolol Tartrate 5mg/5ml Inj IVP SCH ×2 (16:18→17:25)
[2019-06-07] MEDS ORDERED: Tubing IV Secondary IV ONE (16:32)
[2019-06-07] MEDS ORDERED: D5NS 1000ml IV ONE (16:32)
[2019-06-07] MEDS ORDERED: NS 275ml ONE (16:32)
[2019-06-07] MEDS ORDERED: Atropine Inj 1mg/10ml Syr ONE (20:00)
[2019-06-07] MEDS ORDERED: Naloxone 1mg/ml 2ml ONE (20:00)
[2019-06-07] MEDS ORDERED: Sodium Bicarbonate 8.4% 50ml Inj ONE (20:00)
--- NOTE | 2019-06-07 20:44 | Cardiology Progress Note ---
Assessment/Plan Assessment/Plan 1. SVT at rate of 160. Metoprolol IVP 5mg x 3 doses, resume amiodarone 200mg daily. 2. Atrial fibrillation with rapid ventricular response, converted to sinus rhythm. 3. Septic shock, resolved, likely due to bilateral PNA, on midodrine. 4. Oliguric acute kidney injury, CXR shows B/L pulmonary edema, on HD. 5. Small pericardial effusion with pleural effusion, s/p HD. 6. B/L pleural effusion. 7. Acute respiratory failure, failed weaning. Subjective Subjective His rhythm has been converted to SVT at rate of 160. Intubated. Objective Last 24 Hour Vital Signs Date Time Temp Pulse Resp B/P (MAP) Pulse Ox O2 Delivery O2 Flow Rate FiO2 06/07/19 19:00 76 17 144/59 (87) 100 06/07/19 18:49 73 19 50 06/07/19 18:00 71 18 139/70 (93) 99 06/07/19 17:25 155 148/63 06/07/19 17:02 114 28 50 06/07/19 17:00 110 25 148/63 (91) 98 06/07/19 16:18 168 140/74 06/07/19 16:00 Mechanical Ventilator 06/07/19 16:00 50 06/07/19 16:00 171 06/07/19 16:00 99.3 166 20 140/74 (96) 96 06/07/19 15:50 167 39 50 06/07/19 15:00 89 34 181/98 (125) 92 06/07/19 14:00 86 31 159/73 (101) 95 06/07/19 13:21 97 32 40 06/07/19 13:18 94 06/07/19 13:13 94 38 40 40 06/07/19 13:00 103 32 158/80 (106) 93 06/07/19 12:00 98.7 92 34 170/72 (104) 95 06/07/19 12:00 40 06/07/19 12:00 92 06/07/19 12:00 Mechanical Ventilator 06/07/19 11:30 94 20 40 06/07/19 11:00 82 24 152/56 (88) 95 06/07/19 10:00 96 32 161/88 (112) 94 1/11/20 09:15 90 34 40 06/07/19 09:00 99.2 83 28 154/71 (98) 96 06/07/19 08:00 40 06/07/19 08:00 81 06/07/19 08:00 Mechanical Ventilator 06/07/19 08:00 84 33 148/73 (98) 97 06/07/19 07:56 60 19 40 06/07/19 07:00 84 35 153/82 (105) 96 06/07/19 06:00 80 29 154/66 (95) 96 06/07/19 05:00 57 16 105/47 (66) 96 06/07/19 04:41 57 18 40 06/07/19 04:00 98.5 90 28 144/55 (84) 96 06/07/19 04:00 40 06/07/19 04:00 Mechanical Ventilator 06/07/19 04:00 93 06/07/19 03:20 96 35 40 06/07/19 03:00 103 32 149/83 (105) 06/07/19 02:00 83 28 153/60 (91) 95 06/07/19 01:00 83 28 150/55 (86) 95 06/07/19 00:31 91 32 40 06/07/19 00:00 40 06/07/19 00:00 Mechanical Ventilator 06/07/19 00:00 89 06/07/19 00:00 97.8 99 33 159/71 (100) 95 06/06/19 23:25 77 35 40 06/06/19 23:00 63 15 143/66 (91) 97 06/06/19 22:00 86 34 151/77 (101) 96 06/06/19 21:00 87 24 154/66 (95) 96 06/06/19 20:47 77 29 50 Intake and Output 06/06/19 06/07/19 19:00 07:00 Intake Total 1130 ml 990 ml Output Total 281 ml 235 ml Balance 849 ml 755 ml IV Total 650 ml 510 ml Tube Feeding 480 ml 480 ml Output Urine Total 21 ml 35 ml Stool Total 260 ml 200 ml 2D Echo: EF 65%,Mod AR,Elevated RAP, RVSP 30,Small pericardial eff, pleural effusion Laboratory Tests Test 06/07/19 04:20 White Blood Count 11.6 K/UL (4.8-10.8) H Red Blood Count 2.77 M/UL (4.70-6.10) L Hemoglobin 8.4 G/DL (14.2-18.0) L Hematocrit 25.0 % (42.0-52.0) L Mean Corpuscular Volume 90 FL (80-99) Mean Corpuscular Hemoglobin 30.1 PG (27.0-31.0) Mean Corpuscular Hemoglobin Concent 33.4 G/DL (32.0-36.0) Red Cell Distribution Width 15.5 % (11.6-14.8) H Platelet Count 226 K/UL (150-450) Mean Platelet Volume 4.7 FL (6.5-10.1) L Neutrophils (%) (Auto) % (45.0-75.0) Lymphocytes (%) (Auto) % (20.0-45.0) Monocytes (%) (Auto) % (1.0-10.0) Eosinophils (%) (Auto) % (0.0-3.0) Basophils (%) (Auto) % (0.0-2.0) Differential Total Cells Counted 100 Neutrophils % (Manual) 96 % (45-75) H Lymphocytes % (Manual) 2 % (20-45) L Monocytes % (Manual) 2 % (1-10) Eosinophils % (Manual) 0 % (0-3) Basophils % (Manual) 0 % (0-2) Band Neutrophils 0 % (0-8) Platelet Estimate Adequate Platelet Morphology Normal Sodium Level 137 MMOL/L (136-145) Potassium Level 3.3 MMOL/L (3.5-5.1) L Chloride Level 103 MMOL/L (98-107) Carbon Dioxide Level 24 MMOL/L (21-32) Anion Gap 10 mmol/L (5-15) Blood Urea Nitrogen 78 mg/dL (7-18) H Creatinine 5.4 MG/DL (0.55-1.30) H Estimat Glomerular Filtration Rate mL/min (>60) Glucose Level 240 MG/DL (74-106) H Uric Acid 5.6 MG/DL (2.6-7.2) Calcium Level 6.8 MG/DL (8.5-10.1) L Phosphorus Level 3.9 MG/DL (2.5-4.9) Magnesium Level 2.2 MG/DL (1.8-2.4) Total Bilirubin 0.3 MG/DL (0.2-1.0) Aspartate Amino Transf (AST/SGOT) 31 U/L (15-37) Alanine Aminotransferase (ALT/SGPT) 26 U/L (12-78) Alkaline Phosphatase 60 U/L (46-116) C-Reactive Protein, Quantitative 1.8 mg/dL (0.00-0.90) H Pro-B-Type Natriuretic Peptide 9495 pg/mL (0-125) H Total Protein 5.2 G/DL (6.4-8.2) L Albumin 1.6 G/DL (3.4-5.0) L Globulin 3.6 g/dL Albumin/Globulin Ratio 0.4 (1.0-2.7) L Random Vancomycin Level 16.7 ug/mL Objective HEENT: Atraumatic and normocephalic. Anicteric. Pupils are equal, round, and reactive to light and accommodation. Extraocular muscles intact. NECK: JVP less than 5 cm. No carotid bruit. Carotid upstroke is 2+ bilaterally. CARDIOVASCULAR: Normal S1, S2. Regular rate and rhythm. Tachycardic. No murmurs, gallops, or rubs. PMI is at fourth intercostal space in the midclavicular line. LUNGS: Diminished both bases. ABDOMEN: Soft, nontender, and nondistended. No hepatosplenomegaly. Positive bowel sounds. EXTREMITIES: No evidence of edema, clubbing, or cyanosis. Del Garcia MD Jun 07, 2019 20:44
--- NOTE | 2019-06-07 20:48 | Surgery Progress Note ---
Surgery Progress Note Subjective Additional Comments leukocytosis renal function worsening Objective Last 24 Hour Vital Signs Date Time Temp Pulse Resp B/P (MAP) Pulse Ox O2 Delivery O2 Flow Rate FiO2 06/07/19 19:00 76 17 144/59 (87) 100 06/07/19 18:49 73 19 50 06/07/19 18:00 71 18 139/70 (93) 99 06/07/19 17:25 155 148/63 06/07/19 17:02 114 28 50 06/07/19 17:00 110 25 148/63 (91) 98 06/07/19 16:18 168 140/74 06/07/19 16:00 Mechanical Ventilator 06/07/19 16:00 50 06/07/19 16:00 171 06/07/19 16:00 99.3 166 20 140/74 (96) 96 06/07/19 15:50 167 39 50 06/07/19 15:00 89 34 181/98 (125) 92 06/07/19 14:00 86 31 159/73 (101) 95 06/07/19 13:21 97 32 40 06/07/19 13:18 94 06/07/19 13:13 94 38 40 40 06/07/19 13:00 103 32 158/80 (106) 93 06/07/19 12:00 98.7 92 34 170/72 (104) 95 06/07/19 12:00 40 06/07/19 12:00 92 06/07/19 12:00 Mechanical Ventilator 06/07/19 11:30 94 20 40 06/07/19 11:00 82 24 152/56 (88) 95 06/07/19 10:00 96 32 161/88 (112) 94 06/07/19 09:15 90 34 40 06/07/19 09:00 99.2 83 28 154/71 (98) 96 06/07/19 08:00 40 06/07/19 08:00 81 06/07/19 08:00 Mechanical Ventilator 06/07/19 08:00 84 33 148/73 (98) 97 06/07/19 07:56 60 19 40 06/07/19 07:00 84 35 153/82 (105) 96 06/07/19 06:00 80 29 154/66 (95) 96 06/07/19 05:00 57 16 105/47 (66) 96 06/07/19 04:41 57 18 40 06/07/19 04:00 98.5 90 28 144/55 (84) 96 06/07/19 04:00 40 06/07/19 04:00 Mechanical Ventilator 06/07/19 04:00 93 06/07/19 03:20 96 35 40 06/07/19 03:00 103 32 149/83 (105) 06/07/19 02:00 83 28 153/60 (91) 95 06/07/19 01:00 83 28 150/55 (86) 95 06/07/19 00:31 91 32 40 06/07/19 00:00 40 06/07/19 00:00 Mechanical Ventilator 06/07/19 00:00 89 06/07/19 00:00 97.8 99 33 159/71 (100) 95 06/06/19 23:25 77 35 40 06/06/19 23:00 63 15 143/66 (91) 97 06/06/19 22:00 86 34 151/77 (101) 96 06/06/19 21:00 87 24 154/66 (95) 96 I&O Intake and Output 06/06/19 06/07/19 19:00 07:00 Intake Total 1130 ml 990 ml Output Total 281 ml 235 ml Balance 849 ml 755 ml IV Total 650 ml 510 ml Tube Feeding 480 ml 480 ml Output Urine Total 21 ml 35 ml Stool Total 260 ml 200 ml Dressing: other Wound: other Drains: other Cardiovascular: RSR Respiratory: decreased breath sounds Abdomen: soft, present bowel sounds, non-distended Extremities: no cyanosis, other Laboratory Tests Test 06/07/19 04:20 White Blood Count 11.6 K/UL (4.8-10.8) H Red Blood Count 2.77 M/UL (4.70-6.10) L Hemoglobin 8.4 G/DL (14.2-18.0) L Hematocrit 25.0 % (42.0-52.0) L Mean Corpuscular Volume 90 FL (80-99) Mean Corpuscular Hemoglobin 30.1 PG (27.0-31.0) Mean Corpuscular Hemoglobin Concent 33.4 G/DL (32.0-36.0) Red Cell Distribution Width 15.5 % (11.6-14.8) H Platelet Count 226 K/UL (150-450) Mean Platelet Volume 4.7 FL (6.5-10.1) L Neutrophils (%) (Auto) % (45.0-75.0) Lymphocytes (%) (Auto) % (20.0-45.0) Monocytes (%) (Auto) % (1.0-10.0) Eosinophils (%) (Auto) % (0.0-3.0) Basophils (%) (Auto) % (0.0-2.0) Differential Total Cells Counted 100 Neutrophils % (Manual) 96 % (45-75) H Lymphocytes % (Manual) 2 % (20-45) L Monocytes % (Manual) 2 % (1-10) Eosinophils % (Manual) 0 % (0-3) Basophils % (Manual) 0 % (0-2) Band Neutrophils 0 % (0-8) Platelet Estimate Adequate Platelet Morphology Normal Sodium Level 137 MMOL/L (136-145) Potassium Level 3.3 MMOL/L (3.5-5.1) L Chloride Level 103 MMOL/L (98-107) Carbon Dioxide Level 24 MMOL/L (21-32) Anion Gap 10 mmol/L (5-15) Blood Urea Nitrogen 78 mg/dL (7-18) H Creatinine 5.4 MG/DL (0.55-1.30) H Estimat Glomerular Filtration Rate mL/min (>60) Glucose Level 240 MG/DL (74-106) H Uric Acid 5.6 MG/DL (2.6-7.2) Calcium Level 6.8 MG/DL (8.5-10.1) L Phosphorus Level 3.9 MG/DL (2.5-4.9) Magnesium Level 2.2 MG/DL (1.8-2.4) Total Bilirubin 0.3 MG/DL (0.2-1.0) Aspartate Amino Transf (AST/SGOT) 31 U/L (15-37) Alanine Aminotransferase (ALT/SGPT) 26 U/L (12-78) Alkaline Phosphatase 60 U/L (46-116) C-Reactive Protein, Quantitative 1.8 mg/dL (0.00-0.90) H Pro-B-Type Natriuretic Peptide 9495 pg/mL (0-125) H Total Protein 5.2 G/DL (6.4-8.2) L Albumin 1.6 G/DL (3.4-5.0) L Globulin 3.6 g/dL Albumin/Globulin Ratio 0.4 (1.0-2.7) L Random Vancomycin Level 16.7 ug/mL Plan Problems: (1) Cellulitis of upper extremity Assessment & Plan: 84M with RUE cellulitis, edema, erythema. no drainage. has RUE picc line recommend removal of picc. removed at bedside by myself on 05/18. pressure held, hemostasis noted, dressings applied. cath tip sent for cultures DVT duplex studies with acute thrombus IV Abx as per ID UA pending Cx results keep RUE elevated on pillows okay for diet AM labs anticoagulation off load pressure for dti noted cellulitis and edema improved deteriorated intubated on vent support likely respiratory insufficiency labs ordered wean vent okay for tube feeds via ng - cont as tolerated wean vent am labs HD as per renal now with right IJ Temp HD cath will follow with recs thank you (2) Cellulitis Assessment & Plan: Pt presented on admission with reabsorbing blister lateral R heel. Base of injury indurated with delineated margins(L)4cm x (W)3cm.Non- blanching erythema Sacrum ,R and L buttocks(L)8.5cm x (W)9cm, with a partial thickness pressure injury noted to L buttocks. Base of wound is moist and viable (L)2.3cm x (W)3cm. Area around wound tender when minimally palpated. Pt noted to be wearing splint L foot. Per pt he fractured foot a few weeks ago. Splint removed to assess skin integrity. L heel and malleoli are pink and blanchable.Cavilon Skin Barrier applied to L heel and malleoli and each area covered with Optifoam drsg. Splint reapplied. No other skin concerns noted. unchanged Partial Thickness pressure injury L buttocks resolved . Non-blanching erythema without induration noted to Sacrum,R and L buttocks. (L)8cm x (W)9cm. Scrotum is grossly enlarged and is erythematous and macerated. Penile shaft is grossly swollen .Pt noted to have a partially opened blood blister with 25% biofilm at base of shaft of penis.(L)4.5cm x (W)2.5cm. Bilat groin, medial /posterior aspects of both upper thighs are erythematous and denuded. R lower ext edematous. R heel blister reabsorbed. Non--blanching erythema without induration noted to R heel. Splint removed from L foot. Optifoam drsgs removed from malleoli and heel. Pt noted to have developed several DTPI's despite having Optifoam drsgs. DTPI noted to L achilles . Base of wound is purple and fluctuant (L)0.6cm x (W) 2.7cm.DTPI noted to medial L malleolus(L)0.2cm x (W)0.3cm.Base of wound is purple with marginal erythema. DTPI noted to dorsal L foot. Base of wound is purple with marginal erythema along borders (L)0.9cm x (W)0.5cm.L heel is boggy with non-blanching erythema. Cavilon Skin Barrier applied to affected areas on L foot . Dorsal L foot ,Achilles .R and L malleoli and L heel each covered with Optifoam drsg. Non-blanching erythema without induration noted to lateral L tibia. At plantar aspect of L hallux small dry eschar noted. No erythema or fluctuance periwound. (L)0.5cm x (W)0.4cm. IN addition to Optifoam drsgs placed over each bony prominence of L foot ABD pads placed over dorsal and plantar L foot , Abd pads aligned along L tibia. Splint realigned to L foot Wrapped loosely with Kerlix then wrapped loosely with [place] wrap. L foot floated off mattress with pillow. Tx.Plan: Apply Cavilon to Dorsal L foot. L achilles .Medial/Lateral Malleoli L Foot and L heel. Cover each site with Optifoam drsg. Change every 7 days and prn. Apply Cavilon Plantar L foot. Cover with Optifoam drsg. Change every 7 days and prn. Apply Moisture Barrier Paste to sacrum. Cover with Optifoam drsg. Changee very 7 days and prn. Apply Cavilon Skin Barrier to Both heels. Cover each heel with Optifoam drsg. Change every 7 days and prn. Cleanse wound Shaft of penis with saline. Apply Moisture Barrier Paste Daily and prn. Apply Moisture Barrier Paste to Bilat groin, Scrotum, Medial/Posterior aspects of both upper thighs with each perineal care. Reposition at least every 2hours or as tolerated. Off-load heels with pillows. APM/LA L Mattress overlay. Bennett Logan Jun 07, 2019 20:48
--- NOTE | 2019-06-07 20:50 | General Progress Note ---
Assessment/Plan Problem List: (1) SOB (shortness of breath) ICD Codes: R06.02 - Shortness of breath SNOMED: 803076717 (2) Cellulitis ICD Codes: L03.90 - Cellulitis, unspecified SNOMED: 627941089 (3) Cellulitis of upper extremity ICD Codes: L03.119 - Cellulitis of unspecified part of limb SNOMED: 713730125 Qualifiers: Qualified Codes: L03.113 - Cellulitis of right upper limb (4) Renal insufficiency ICD Codes: N28.9 - Disorder of kidney and ureter, unspecified SNOMED: 974453796, 043233051 (5) Renal failure (ARF), acute on chronic ICD Codes: N17.9 - Acute kidney failure, unspecified; N18.9 - Chronic kidney disease, unspecified SNOMED: 299559516 (6) Anemia ICD Codes: D64.9 - Anemia, unspecified SNOMED: 051398110 (7) Hypothyroidism ICD Codes: E03.9 - Hypothyroidism, unspecified SNOMED: 09949083 (8) UTI (urinary tract infection) ICD Codes: N39.0 - Urinary tract infection, site not specified SNOMED: 49628500 Status: progressing, unchanged Assessment/Plan: intubated chf sepsis pna resp failure hypotheroid le wound has dorsal pedalis pulse lwound and le fracture Subjective ROS Limited/Unobtainable: Yes Allergies: Coded Allergies: No Known Allergies (Unverified , 05/18/19) Objective Last 24 Hour Vital Signs Date Time Temp Pulse Resp B/P (MAP) Pulse Ox O2 Delivery O2 Flow Rate FiO2 06/07/19 19:00 76 17 144/59 (87) 100 06/07/19 18:49 73 19 50 06/07/19 18:00 71 18 139/70 (93) 99 06/07/19 17:25 155 148/63 06/07/19 17:02 114 28 50 06/07/19 17:00 110 25 148/63 (91) 98 06/07/19 16:18 168 140/74 06/07/19 16:00 Mechanical Ventilator 06/07/19 16:00 50 06/07/19 16:00 171 06/07/19 16:00 99.3 166 20 140/74 (96) 96 06/07/19 15:50 167 39 50 06/07/19 15:00 89 34 181/98 (125) 92 06/07/19 14:00 86 31 159/73 (101) 95 06/07/19 13:21 97 32 40 06/07/19 13:18 94 06/07/19 13:13 94 38 40 40 06/07/19 13:00 103 32 158/80 (106) 93 06/07/19 12:00 98.7 92 34 170/72 (104) 95 06/07/19 12:00 40 06/07/19 12:00 92 06/07/19 12:00 Mechanical Ventilator 06/07/19 11:30 94 20 40 06/07/19 11:00 82 24 152/56 (88) 95 06/07/19 10:00 96 32 161/88 (112) 94 06/07/19 09:15 90 34 40 06/07/19 09:00 99.2 83 28 154/71 (98) 96 06/07/19 08:00 40 06/07/19 08:00 81 06/07/19 08:00 Mechanical Ventilator 06/07/19 08:00 84 33 148/73 (98) 97 06/07/19 07:56 60 19 40 06/07/19 07:00 84 35 153/82 (105) 96 06/07/19 06:00 80 29 154/66 (95) 96 06/07/19 05:00 57 16 105/47 (66) 96 06/07/19 04:41 57 18 40 06/07/19 04:00 98.5 90 28 144/55 (84) 96 06/07/19 04:00 40 06/07/19 04:00 Mechanical Ventilator 06/07/19 04:00 93 06/07/19 03:20 96 35 40 06/07/19 03:00 103 32 149/83 (105) 06/07/19 02:00 83 28 153/60 (91) 95 06/07/19 01:00 83 28 150/55 (86) 95 06/07/19 00:31 91 32 40 06/07/19 00:00 40 06/07/19 00:00 Mechanical Ventilator 06/07/19 00:00 89 06/07/19 00:00 97.8 99 33 159/71 (100) 95 06/06/19 23:25 77 35 40 06/06/19 23:00 63 15 143/66 (91) 97 06/06/19 22:00 86 34 151/77 (101) 96 06/06/19 21:00 87 24 154/66 (95) 96 Intake and Output 06/06/19 06/07/19 19:00 07:00 Intake Total 1130 ml 990 ml Output Total 281 ml 235 ml Balance 849 ml 755 ml IV Total 650 ml 510 ml Tube Feeding 480 ml 480 ml Output Urine Total 21 ml 35 ml Stool Total 260 ml 200 ml Laboratory Tests 06/07/19 04:20: White Blood Count 11.6H, Red Blood Count 2.77L, Hemoglobin 8.4L, Hematocrit 25.0L, Mean Corpuscular Volume 90, Mean Corpuscular Hemoglobin 30.1, Mean Corpuscular Hemoglobin Concent 33.4, Red Cell Distribution Width 15.5H, Platelet Count 226, Mean Platelet Volume 4.7L, Neutrophils (%) (Auto) , Lymphocytes (%) (Auto) , Monocytes (%) (Auto) , Eosinophils (%) (Auto) , Basophils (%) (Auto) , Differential Total Cells Counted 100, Neutrophils % ( Manual) 96H, Lymphocytes % (Manual) 2L, Monocytes % (Manual) 2, Eosinophils % ( Manual) 0, Basophils % (Manual) 0, Band Neutrophils 0, Platelet Estimate Adequate, Platelet Morphology Normal, Sodium Level 137, Potassium Level 3.3L, Chloride Level 103, Carbon Dioxide Level 24, Anion Gap 10, Blood Urea Nitrogen 78H, Creatinine 5.4H, Estimat Glomerular Filtration Rate , Glucose Level 240H, Uric Acid 5.6, Calcium Level 6.8L, Phosphorus Level 3.9, Magnesium Level 2.2, Total Bilirubin 0.3, Aspartate Amino Transf (AST/SGOT) 31, Alanine Aminotransferase (ALT/SGPT) 26, Alkaline Phosphatase 60, C-Reactive Protein, Quantitative 1.8H, Pro-B-Type Natriuretic Peptide 9495H, Total Protein 5.2L, Albumin 1.6L, Globulin 3.6, Albumin/Globulin Ratio 0.4L, Random Vancomycin Level 16.7 Height (Feet): 5 Height (Inches): 7.00 Weight (Pounds): 209 Cardiovascular: normal rate Respiratory/Chest: lungs clear Abdomen: soft Joslyn Wiggins MD Jun 07, 2019 20:50
[2019-06-07] MEDS: Dyna-Hex 2% Top Sol 2oz TOPIC SCH (21:27)
[2019-06-08] VITALS (25 sets, daily range): BP systolic 89–171; BP diastolic 39–83
[2019-06-08] MEDS: Zosyn 2.25 gm in D5W 55ml IV SCH ×3 (04:56→20:22)
[2019-06-08 06:28] LABS: ALANINE AMINOTRANSFERASE 26 U/L (12-78); ALBUMIN 1.6 G/DL (3.4-5.0); ALBUMIN/GLOBULIN RATIO 0.5 (1.0-2.7); ALKALINE PHOSPHATASE 57 U/L (46-116); ANION GAP 12 mmol/L (5-15); ASPARTATE AMINO TRANSFERASE 29 U/L (15-37); BILIRUBIN,TOTAL 0.3 MG/DL (0.2-1.0); BLOOD UREA NITROGEN 91 mg/dL (7-18); CARBON DIOXIDE 21 MMOL/L (21-32); CHLORIDE 103 MMOL/L (98-107); CREATININE 5.9 MG/DL (0.55-1.30); PHOSPHORUS 4.6 MG/DL (2.5-4.9); POTASSIUM 3.7 MMOL/L (3.5-5.1); SODIUM 136 MMOL/L (136-145)
[2019-06-08] MEDS ORDERED: Albuterol/Ipratropium 3ml neb HHN PRN (08:00)
--- NOTE | 2019-06-08 08:02 | General Progress Note ---
Assessment/Plan Problem List: (1) Dysphagia ICD Codes: R13.10 - Dysphagia, unspecified SNOMED: 17939762, 989857344 (2) Anemia ICD Codes: D64.9 - Anemia, unspecified SNOMED: 468625148 (3) Hypothyroidism ICD Codes: E03.9 - Hypothyroidism, unspecified SNOMED: 27486088 (4) Thrombus ICD Codes: I82.90 - Acute embolism and thrombosis of unspecified vein SNOMED: 06397183, 57725018, 086167465, 254827542 (5) A-fib ICD Codes: I48.91 - Unspecified atrial fibrillation SNOMED: 01356877 Status: progressing, unchanged Assessment/Plan: intubated in ICU NGTF fu pulm fu labs abx per ID on HD poor prognosis PEG if needed Subjective ROS Limited/Unobtainable: No Allergies: Coded Allergies: No Known Allergies (Unverified , 05/18/19) Subjective coded today Objective Last 24 Hour Vital Signs Date Time Temp Pulse Resp B/P (MAP) Pulse Ox O2 Delivery O2 Flow Rate FiO2 06/08/19 07:00 86 29 162/83 (109) 97 06/08/19 06:30 64 17 06/08/19 06:00 77 21 141/62 (88) 100 06/08/19 05:10 77 16 50 06/08/19 05:00 65 5 134/49 (77) 100 06/08/19 04:00 94 06/08/19 04:00 50 06/08/19 04:00 98.8 65 7 134/49 (77) 99 06/08/19 04:00 Mechanical Ventilator 06/08/19 03:23 93 32 50 06/08/19 03:18 92 25 169/77 (107) 99 06/08/19 03:00 94 33 171/80 (110) 99 06/08/19 02:00 87 26 161/73 (102) 98 06/08/19 01:08 84 28 50 06/08/19 01:00 79 17 153/63 (93) 98 06/08/19 01:00 79 17 153/63 (93) 98 06/08/19 00:00 86 13 158/72 (100) 98 06/08/19 00:00 50 06/08/19 00:00 77 1/12/20 00:00 Mechanical Ventilator 06/08/19 00:00 98.7 86 13 158/72 (100) 98 06/07/19 23:00 77 26 159/61 (93) 99 06/07/19 22:58 82 28 50 06/07/19 22:00 79 22 155/78 (103) 98 06/07/19 21:15 80 30 50 06/07/19 21:00 75 23 149/66 (93) 100 06/07/19 20:00 50 06/07/19 20:00 75 06/07/19 20:00 Mechanical Ventilator 06/07/19 20:00 98.9 56 16 103/45 (64) 100 06/07/19 19:20 149/66 06/07/19 19:00 76 17 144/59 (87) 100 06/07/19 18:49 73 19 50 06/07/19 18:00 71 18 139/70 (93) 99 06/07/19 17:25 155 148/63 06/07/19 17:02 114 28 50 06/07/19 17:00 110 25 148/63 (91) 98 06/07/19 16:18 168 140/74 06/07/19 16:00 Mechanical Ventilator 06/07/19 16:00 50 06/07/19 16:00 171 06/07/19 16:00 99.3 166 20 140/74 (96) 96 06/07/19 15:50 167 39 50 06/07/19 15:00 89 34 181/98 (125) 92 06/07/19 14:00 86 31 159/73 (101) 95 06/07/19 13:21 97 32 40 06/07/19 13:18 94 06/07/19 13:13 94 38 40 40 06/07/19 13:00 103 32 158/80 (106) 93 06/07/19 12:00 98.7 92 34 170/72 (104) 95 06/07/19 12:00 40 06/07/19 12:00 92 06/07/19 12:00 Mechanical Ventilator 06/07/19 11:30 94 20 40 06/07/19 11:00 82 24 152/56 (88) 95 06/07/19 10:00 96 32 161/88 (112) 94 06/07/19 09:15 90 34 40 06/07/19 09:00 99.2 83 28 154/71 (98) 96 Intake and Output 06/07/19 06/08/19 19:00 07:00 Intake Total 955 ml 610 ml Output Total 341 ml 125 ml Balance 614 ml 485 ml Free Water 20 ml IV Total 255 ml 110 ml Tube Feeding 480 ml 480 ml Other 220 ml Output Urine Total 41 ml 25 ml Stool Total 300 ml 100 ml Laboratory Tests 06/08/19 05:30: Sodium Level 136, Potassium Level 3.7, Chloride Level 103, Carbon Dioxide Level 21, Anion Gap 12, Blood Urea Nitrogen 91H, Creatinine 5.9H, Estimat Glomerular Filtration Rate , Glucose Level 168H, Uric Acid 6.2, Calcium Level 7.0L, Phosphorus Level 4.6, Magnesium Level 2.2, Total Bilirubin 0.3, Aspartate Amino Transf (AST/SGOT) 29, Alanine Aminotransferase (ALT/SGPT) 26, Alkaline Phosphatase 57, C-Reactive Protein, Quantitative 1.1H, Pro-B-Type Natriuretic Peptide 00014F, Total Protein 4.8L, Albumin 1.6L, Globulin 3.2, Albumin/ Globulin Ratio 0.5L, Random Vancomycin Level 15.5 Height (Feet): 5 Height (Inches): 7.00 Weight (Pounds): 208 General Appearance: lethargic EENT: normal ENT inspection Neck: supple Cardiovascular: normal rate Respiratory/Chest: decreased breath sounds Abdomen: normal bowel sounds, non tender, soft Extremities: non-tender Valentino Lino MD Jun 08, 2019 08:02
[2019-06-08] MEDS: Amiodarone 200mg tab ORAL SCH (08:21)
[2019-06-08] MEDS: Solu-MEDROL 125mg Inj IVP SCH ×2 (08:21→20:30)
[2019-06-08] MEDS: Vitamin D 1000 IU Tab GT SCH (08:21)
--- NOTE | 2019-06-08 09:58 | Pulmonology Progress Note ---
Assessment/Plan Assessment/Plan IMPRESSION AND PLAN: 1. Pneumonia. Bilateral upper lobe. 2. Cellulitis. 3. History of COPD. 4. Hypertension. 5. Afib with RVR; rate controlled 6. Respiratory failure; on vent DISCUSSION: 1. Intubated; on AC mode; will begin weaning 2. Agree with present management and care. 3. Continue medications and HHN with atrovent only 4. Check stool for C diff 5. For HD today 6. May need trach Arsen Whittaker M.D. Subjective Interval Events: Day #13 of intubation; for HD today Constitutional: Reports: no symptoms HEENT: Repors: no symptoms Respiratory: Reports: no symptoms Cardiovascular: Reports: no symptoms Gastrointestinal/Abdominal: Reports: no symptoms Genitourinary: Reports: no symptoms Allergies: Coded Allergies: No Known Allergies (Unverified , 05/18/19) Objective Last 24 Hour Vital Signs Date Time Temp Pulse Resp B/P (MAP) Pulse Ox O2 Delivery O2 Flow Rate FiO2 06/08/19 09:00 91 0 154/76 (102) 96 06/08/19 08:40 101 33 45 06/08/19 08:16 87 35 97 Mechanical Ventilator 45 83 34 98 06/08/19 08:00 97.7 91 34 155/72 (99) 98 06/08/19 08:00 45 06/08/19 07:00 86 29 162/83 (109) 97 06/08/19 06:32 81 23 100 Mechanical Ventilator 45 06/08/19 06:32 81 23 45 06/08/19 06:30 64 17 06/08/19 06:00 77 21 141/62 (88) 100 06/08/19 05:10 77 16 50 06/08/19 05:00 65 5 134/49 (77) 100 06/08/19 04:00 94 06/08/19 04:00 50 06/08/19 04:00 98.8 65 7 134/49 (77) 99 06/08/19 04:00 Mechanical Ventilator 06/08/19 03:23 93 32 50 06/08/19 03:18 92 25 169/77 (107) 99 06/08/19 03:00 94 33 171/80 (110) 99 06/08/19 02:00 87 26 161/73 (102) 98 06/08/19 01:08 84 28 50 06/08/19 01:00 79 17 153/63 (93) 98 06/08/19 01:00 79 17 153/63 (93) 98 06/08/19 00:00 86 13 158/72 (100) 98 06/08/19 00:00 50 06/08/19 00:00 77 06/08/19 00:00 Mechanical Ventilator 06/08/19 00:00 98.7 86 13 158/72 (100) 98 06/07/19 23:00 77 26 159/61 (93) 99 06/07/19 22:58 82 28 50 06/07/19 22:00 79 22 155/78 (103) 98 06/07/19 21:15 80 30 50 06/07/19 21:00 75 23 149/66 (93) 100 06/07/19 20:00 50 06/07/19 20:00 75 06/07/19 20:00 Mechanical Ventilator 06/07/19 20:00 98.9 56 16 103/45 (64) 100 06/07/19 19:20 149/66 06/07/19 19:00 76 17 144/59 (87) 100 06/07/19 18:49 73 19 50 06/07/19 18:00 71 18 139/70 (93) 99 06/07/19 17:25 155 148/63 06/07/19 17:02 114 28 50 06/07/19 17:00 110 25 148/63 (91) 98 06/07/19 16:18 168 140/74 06/07/19 16:00 Mechanical Ventilator 06/07/19 16:00 50 06/07/19 16:00 171 06/07/19 16:00 99.3 166 20 140/74 (96) 96 06/07/19 15:50 167 39 50 06/07/19 15:00 89 34 181/98 (125) 92 06/07/19 14:00 86 31 159/73 (101) 95 06/07/19 13:21 97 32 40 06/07/19 13:18 94 06/07/19 13:13 94 38 40 40 06/07/19 13:00 103 32 158/80 (106) 93 06/07/19 12:00 98.7 92 34 170/72 (104) 95 06/07/19 12:00 40 06/07/19 12:00 92 06/07/19 12:00 Mechanical Ventilator 06/07/19 11:30 94 20 40 06/07/19 11:00 82 24 152/56 (88) 95 06/07/19 10:00 96 32 161/88 (112) 94 Intake and Output 06/07/19 06/08/19 19:00 07:00 Intake Total 955 ml 610 ml Output Total 341 ml 125 ml Balance 614 ml 485 ml Free Water 20 ml IV Total 255 ml 110 ml Tube Feeding 480 ml 480 ml Other 220 ml Output Urine Total 41 ml 25 ml Stool Total 300 ml 100 ml General Appearance: no acute distress HEENT: normocephalic Respiratory/Chest: chest wall non-tender, lungs clear Cardiovascular: normal peripheral pulses Abdomen: normal bowel sounds Laboratory Tests 06/08/19 05:30: Sodium Level 136, Potassium Level 3.7, Chloride Level 103, Carbon Dioxide Level 21, Anion Gap 12, Blood Urea Nitrogen 91H, Creatinine 5.9H, Estimat Glomerular Filtration Rate , Glucose Level 168H, Uric Acid 6.2, Calcium Level 7.0L, Phosphorus Level 4.6, Magnesium Level 2.2, Total Bilirubin 0.3, Aspartate Amino Transf (AST/SGOT) 29, Alanine Aminotransferase (ALT/SGPT) 26, Alkaline Phosphatase 57, C-Reactive Protein, Quantitative 1.1H, Pro-B-Type Natriuretic Peptide 83705F, Total Protein 4.8L, Albumin 1.6L, Globulin 3.2, Albumin/ Globulin Ratio 0.5L, Random Vancomycin Level 15.5 Current Medications Medications (Trade) Dose Ordered Sig/Phillip Route PRN Reason Start Time Stop Time Status Last Admin Dose Admin Acetaminophen (Tylenol) 500 mg Q4H PRN GT Mild Pain/Temp > 100.5 05/27/19 07:45 06/19/19 20:29 06/06/19 13:52 Amiodarone HCl (Cordarone) 200 mg DAILY ORAL 06/07/19 16:15 07/07/19 16:14 06/08/19 08:21 Apixaban (Eliquis) 2.5 mg Q12HR ORAL 06/08/19 21:00 07/08/19 20:59 Chlorhexidine Gluconate (Reina-Hex 2%) 1 applic DAILY@1999 TOPIC 05/27/19 20:00 06/26/19 19:59 06/07/19 21:27 Daptomycin 500 mg/ Sodium Chloride 55 ml @ 100 mls/hr Q48H IV 05/29/19 13:00 06/11/19 12:59 06/06/19 13:53 Ipratropium [place] (Atrovent) 500 mcg Q4H PRN HHN Shortness of Breath 06/08/19 10:00 06/13/19 09:59 UNV Lansoprazole (Prevacid) 30 mg BID NG 06/06/19 18:00 07/06/19 17:59 06/08/19 08:21 Methylprednisolone Sodium Succinate (Solu-MEDROL) 60 mg EVERY 12 HOURS IVP 06/04/19 21:00 07/04/19 20:59 06/08/19 08:21 Metoprolol Tartrate (Lopressor) 5 mg Q5MIN X 3 IVP 06/07/19 16:15 07/07/19 16:14 06/07/19 17:25 Norepinephrine Bitartrate 4 mg/ Dextrose 250 ml @ 0 mls/hr Q24H IV 05/29/19 19:20 06/28/19 19:19 05/30/19 22:45 Piperacillin Sod/ Tazobactam Sod 2.25 gm/Dextrose 55 ml @ 110 mls/hr Q8HR@0400,1200,1999 IV 06/03/19 12:00 06/10/19 11:59 06/08/19 04:56 Vitamin D (Vitamin D) 5,000 intlu DAILY GT 06/07/19 13:00 07/07/19 12:59 06/08/19 08:21 Arsen Whittaker MD Jun 08, 2019 09:58
[2019-06-08] MEDS ORDERED: Ipratropium 0.02% Inh Soln 2.5ml UD HHN PRN (10:00)
--- NOTE | 2019-06-08 10:02 | Infectious Diseases Prog Note ---
Assessment/Plan Assessment/Plan 84 yo male with PMHx of HTN who was sent to the ED on 05/18/19 from his long-term for possible picc line infection. Swelling around PICC line Minimal to no erythema and no purulent drainage Not likely to be infected Blood Cx 05/18/19 - NGTD PICC Tip Cx 05/18/19 - NGTD PICC line removed 05/18/19 No Leukocytosis No fever OM - Let foot On Vancomycin at nursing End date early May PNA on 8L NC CXR - Some LLL Atelectasis vs PNA, Nodules CT 05/20/19 - Bilateral upper lobe infiltrates worse on the right. Consider pneumonia. Bilateral pleural effusions moderate in size Sp Cx Marily HTN PLAN - CPK - Continue Daptomycin for OM End date per long-term MD - Continue Zosyn #13/14 for probable PNA - 05/28/19 SP Vancomycin per pharmacy - Stopped for increasing Cr - 05/27/19 SP Levofloxacin #5 - Get OSH records for OM - Monitor CBC and Temps Thank you for this consult. [facility] will continue to follow the patient with you during this hospitalization. Subjective Allergies: Coded Allergies: No Known Allergies (Unverified , 05/18/19) Subjective afebrile mild leukocytosis Objective Vital Signs Last 24 Hour Vital Signs Date Time Temp Pulse Resp B/P (MAP) Pulse Ox O2 Delivery O2 Flow Rate FiO2 06/08/19 09:00 91 0 154/76 (102) 96 06/08/19 08:40 101 33 45 06/08/19 08:16 87 35 97 Mechanical Ventilator 45 83 34 98 06/08/19 08:00 97.7 91 34 155/72 (99) 98 06/08/19 08:00 45 06/08/19 07:00 86 29 162/83 (109) 97 06/08/19 06:32 81 23 100 Mechanical Ventilator 45 06/08/19 06:32 81 23 45 06/08/19 06:30 64 17 06/08/19 06:00 77 21 141/62 (88) 100 06/08/19 05:10 77 16 50 06/08/19 05:00 65 5 134/49 (77) 100 06/08/19 04:00 94 06/08/19 04:00 50 06/08/19 04:00 98.8 65 7 134/49 (77) 99 06/08/19 04:00 Mechanical Ventilator 06/08/19 03:23 93 32 50 06/08/19 03:18 92 25 169/77 (107) 99 06/08/19 03:00 94 33 171/80 (110) 99 06/08/19 02:00 87 26 161/73 (102) 98 06/08/19 01:08 84 28 50 06/08/19 01:00 79 17 153/63 (93) 98 06/08/19 01:00 79 17 153/63 (93) 98 06/08/19 00:00 86 13 158/72 (100) 98 06/08/19 00:00 50 06/08/19 00:00 77 06/08/19 00:00 Mechanical Ventilator 06/08/19 00:00 98.7 86 13 158/72 (100) 98 06/07/19 23:00 77 26 159/61 (93) 99 06/07/19 22:58 82 28 50 06/07/19 22:00 79 22 155/78 (103) 98 06/07/19 21:15 80 30 50 06/07/19 21:00 75 23 149/66 (93) 100 06/07/19 20:00 50 06/07/19 20:00 75 06/07/19 20:00 Mechanical Ventilator 06/07/19 20:00 98.9 56 16 103/45 (64) 100 06/07/19 19:20 149/66 06/07/19 19:00 76 17 144/59 (87) 100 06/07/19 18:49 73 19 50 06/07/19 18:00 71 18 139/70 (93) 99 06/07/19 17:25 155 148/63 06/07/19 17:02 114 28 50 06/07/19 17:00 110 25 148/63 (91) 98 06/07/19 16:18 168 140/74 06/07/19 16:00 Mechanical Ventilator 06/07/19 16:00 50 06/07/19 16:00 171 06/07/19 16:00 99.3 166 20 140/74 (96) 96 06/07/19 15:50 167 39 50 06/07/19 15:00 89 34 181/98 (125) 92 06/07/19 14:00 86 31 159/73 (101) 95 06/07/19 13:21 97 32 40 06/07/19 13:18 94 06/07/19 13:13 94 38 40 40 06/07/19 13:00 103 32 158/80 (106) 93 06/07/19 12:00 98.7 92 34 170/72 (104) 95 06/07/19 12:00 40 06/07/19 12:00 92 06/07/19 12:00 Mechanical Ventilator 06/07/19 11:30 94 20 40 06/07/19 11:00 82 24 152/56 (88) 95 06/07/19 10:00 96 32 161/88 (112) 94 Height (Feet): 5 Height (Inches): 7.00 Weight (Pounds): 208 Objective General Appearance: no apparent distress, lethargic Cardiovascular: normal rate Respiratory/Chest: decreased breath sounds Abdomen: distended Laboratory Tests Test 06/08/19 05:30 Sodium Level 136 MMOL/L (136-145) Potassium Level 3.7 MMOL/L (3.5-5.1) Chloride Level 103 MMOL/L (98-107) Carbon Dioxide Level 21 MMOL/L (21-32) Anion Gap 12 mmol/L (5-15) Blood Urea Nitrogen 91 mg/dL (7-18) H Creatinine 5.9 MG/DL (0.55-1.30) H Estimat Glomerular Filtration Rate mL/min (>60) Glucose Level 168 MG/DL (74-106) H Uric Acid 6.2 MG/DL (2.6-7.2) Calcium Level 7.0 MG/DL (8.5-10.1) L Phosphorus Level 4.6 MG/DL (2.5-4.9) Magnesium Level 2.2 MG/DL (1.8-2.4) Total Bilirubin 0.3 MG/DL (0.2-1.0) Aspartate Amino Transf (AST/SGOT) 29 U/L (15-37) Alanine Aminotransferase (ALT/SGPT) 26 U/L (12-78) Alkaline Phosphatase 57 U/L (46-116) C-Reactive Protein, Quantitative 1.1 mg/dL (0.00-0.90) H Pro-B-Type Natriuretic Peptide 41711 pg/mL (0-125) H Total Protein 4.8 G/DL (6.4-8.2) L Albumin 1.6 G/DL (3.4-5.0) L Globulin 3.2 g/dL Albumin/Globulin Ratio 0.5 (1.0-2.7) L Random Vancomycin Level 15.5 ug/mL Current Medications Medications (Trade) Dose Ordered Sig/Phillip Route PRN Reason Start Time Stop Time Status Last Admin Dose Admin Acetaminophen (Tylenol) 500 mg Q4H PRN GT Mild Pain/Temp > 100.5 05/27/19 07:45 06/19/19 20:29 06/06/19 13:52 Amiodarone HCl (Cordarone) 200 mg DAILY ORAL 06/07/19 16:15 07/07/19 16:14 06/08/19 08:21 Apixaban (Eliquis) 2.5 mg Q12HR ORAL 06/08/19 21:00 07/08/19 20:59 Chlorhexidine Gluconate (Reina-Hex 2%) 1 applic DAILY@2000 TOPIC 05/27/19 20:00 06/26/19 19:59 06/07/19 21:27 Daptomycin 500 mg/ Sodium Chloride 55 ml @ 100 mls/hr Q48H IV 05/29/19 13:00 06/11/19 12:59 06/06/19 13:53 Ipratropium [place] (Atrovent) 500 mcg Q4H PRN HHN Shortness of Breath 06/08/19 10:00 06/13/19 09:59 UNV Lansoprazole (Prevacid) 30 mg BID NG 06/06/19 18:00 07/06/19 17:59 06/08/19 08:21 Methylprednisolone Sodium Succinate (Solu-MEDROL) 60 mg EVERY 12 HOURS IVP 06/04/19 21:00 07/04/19 20:59 06/08/19 08:21 Metoprolol Tartrate (Lopressor) 5 mg Q5MIN X 3 IVP 06/07/19 16:15 07/07/19 16:14 06/07/19 17:25 Norepinephrine Bitartrate 4 mg/ Dextrose 250 ml @ 0 mls/hr Q24H IV 05/29/19 19:20 06/28/19 19:19 05/30/19 22:45 Piperacillin Sod/ Tazobactam Sod 2.25 gm/Dextrose 55 ml @ 110 mls/hr Q8HR@0400,1200,2000 IV 06/03/19 12:00 06/10/19 11:59 06/08/19 04:56 Vitamin D (Vitamin D) 5,000 intlu DAILY GT 06/07/19 13:00 07/07/19 12:59 06/08/19 08:21 Latha Lowe M.D. Jun 08, 2019 10:02
[2019-06-08 10:08] LABS: HEMATOCRIT 23.5 % (42.0-52.0); HEMOGLOBIN 8.1 G/DL (14.2-18.0); MEAN CORPUSCULAR VOLUME 89 FL (80-99); PLATELET COUNT 217 K/UL (150-450); RED BLOOD COUNT 2.64 M/UL (4.70-6.10); RED CELL DISTRIBUTION WIDTH 15.1 % (11.6-14.8); WHITE BLOOD COUNT 12.1 K/UL (4.8-10.8)
--- NOTE | 2019-06-08 11:00 | Surgery Progress Note ---
Surgery Progress Note Subjective Additional Comments worsening leukocytosis ill appearing declining Objective Last 24 Hour Vital Signs Date Time Temp Pulse Resp B/P (MAP) Pulse Ox O2 Delivery O2 Flow Rate FiO2 06/08/19 10:00 89 11 161/73 (102) 96 06/08/19 09:00 91 0 154/76 (102) 96 06/08/19 08:40 101 33 45 06/08/19 08:16 87 35 97 Mechanical Ventilator 45 83 34 98 06/08/19 08:00 67 06/08/19 08:00 97.7 91 34 155/72 (99) 98 06/08/19 08:00 45 06/08/19 07:00 86 29 162/83 (109) 97 06/08/19 06:32 81 23 100 Mechanical Ventilator 45 06/08/19 06:32 81 23 45 06/08/19 06:30 64 17 06/08/19 06:00 77 21 141/62 (88) 100 06/08/19 05:10 77 16 50 06/08/19 05:00 65 5 134/49 (77) 100 06/08/19 04:00 94 06/08/19 04:00 50 06/08/19 04:00 98.8 65 7 134/49 (77) 99 06/08/19 04:00 Mechanical Ventilator 06/08/19 03:23 93 32 50 06/08/19 03:18 92 25 169/77 (107) 99 06/08/19 03:00 94 33 171/80 (110) 99 06/08/19 02:00 87 26 161/73 (102) 98 06/08/19 01:08 84 28 50 06/08/19 01:00 79 17 153/63 (93) 98 06/08/19 01:00 79 17 153/63 (93) 98 06/08/19 00:00 86 13 158/72 (100) 98 06/08/19 00:00 50 06/08/19 00:00 77 06/08/19 00:00 Mechanical Ventilator 06/08/19 00:00 98.7 86 13 158/72 (100) 98 06/07/19 23:00 77 26 159/61 (93) 99 06/07/19 22:58 82 28 50 06/07/19 22:00 79 22 155/78 (103) 98 06/07/19 21:15 80 30 50 06/07/19 21:00 75 23 149/66 (93) 100 06/07/19 20:00 50 06/07/19 20:00 75 06/07/19 20:00 Mechanical Ventilator 06/07/19 20:00 98.9 56 16 103/45 (64) 100 06/07/19 19:20 149/66 06/07/19 19:00 76 17 144/59 (87) 100 06/07/19 18:49 73 19 50 06/07/19 18:00 71 18 139/70 (93) 99 06/07/19 17:25 155 148/63 06/07/19 17:02 114 28 50 06/07/19 17:00 110 25 148/63 (91) 98 06/07/19 16:18 168 140/74 06/07/19 16:00 Mechanical Ventilator 06/07/19 16:00 50 06/07/19 16:00 171 06/07/19 16:00 99.3 166 20 140/74 (96) 96 06/07/19 15:50 167 39 50 06/07/19 15:00 89 34 181/98 (125) 92 06/07/19 14:00 86 31 159/73 (101) 95 06/07/19 13:21 97 32 40 06/07/19 13:18 94 06/07/19 13:13 94 38 40 40 06/07/19 13:00 103 32 158/80 (106) 93 06/07/19 12:00 98.7 92 34 170/72 (104) 95 06/07/19 12:00 40 06/07/19 12:00 92 06/07/19 12:00 Mechanical Ventilator 06/07/19 11:30 94 20 40 I&O Intake and Output 06/07/19 06/08/19 19:00 07:00 Intake Total 955 ml 610 ml Output Total 341 ml 125 ml Balance 614 ml 485 ml Free Water 20 ml IV Total 255 ml 110 ml Tube Feeding 480 ml 480 ml Other 220 ml Output Urine Total 41 ml 25 ml Stool Total 300 ml 100 ml Dressing: other Wound: other Drains: other Cardiovascular: RSR Respiratory: decreased breath sounds Abdomen: soft, present bowel sounds, non-distended Extremities: no cyanosis, other Laboratory Tests Test 06/08/19 05:30 White Blood Count 12.1 K/UL (4.8-10.8) H Red Blood Count 2.64 M/UL (4.70-6.10) L Hemoglobin 8.1 G/DL (14.2-18.0) L Hematocrit 23.5 % (42.0-52.0) L Mean Corpuscular Volume 89 FL (80-99) Mean Corpuscular Hemoglobin 30.8 PG (27.0-31.0) Mean Corpuscular Hemoglobin Concent 34.5 G/DL (32.0-36.0) Red Cell Distribution Width 15.1 % (11.6-14.8) H Platelet Count 217 K/UL (150-450) Mean Platelet Volume 5.1 FL (6.5-10.1) L Neutrophils (%) (Auto) % (45.0-75.0) Lymphocytes (%) (Auto) % (20.0-45.0) Monocytes (%) (Auto) % (1.0-10.0) Eosinophils (%) (Auto) % (0.0-3.0) Basophils (%) (Auto) % (0.0-2.0) Neutrophils % (Manual) Pending Lymphocytes % (Manual) Pending Platelet Estimate Pending Platelet Morphology Pending Sodium Level 136 MMOL/L (136-145) Potassium Level 3.7 MMOL/L (3.5-5.1) Chloride Level 103 MMOL/L (98-107) Carbon Dioxide Level 21 MMOL/L (21-32) Anion Gap 12 mmol/L (5-15) Blood Urea Nitrogen 91 mg/dL (7-18) H Creatinine 5.9 MG/DL (0.55-1.30) H Estimat Glomerular Filtration Rate mL/min (>60) Glucose Level 168 MG/DL (74-106) H Uric Acid 6.2 MG/DL (2.6-7.2) Calcium Level 7.0 MG/DL (8.5-10.1) L Phosphorus Level 4.6 MG/DL (2.5-4.9) Magnesium Level 2.2 MG/DL (1.8-2.4) Total Bilirubin 0.3 MG/DL (0.2-1.0) Aspartate Amino Transf (AST/SGOT) 29 U/L (15-37) Alanine Aminotransferase (ALT/SGPT) 26 U/L (12-78) Alkaline Phosphatase 57 U/L (46-116) C-Reactive Protein, Quantitative 1.1 mg/dL (0.00-0.90) H Pro-B-Type Natriuretic Peptide 90821 pg/mL (0-125) H Total Protein 4.8 G/DL (6.4-8.2) L Albumin 1.6 G/DL (3.4-5.0) L Globulin 3.2 g/dL Albumin/Globulin Ratio 0.5 (1.0-2.7) L Random Vancomycin Level 15.5 ug/mL Plan Problems: (1) Cellulitis of upper extremity Assessment & Plan: 84M with RUE cellulitis, edema, erythema. no drainage. has RUE picc line recommend removal of picc. removed at bedside by myself on 05/18. pressure held, hemostasis noted, dressings applied. cath tip sent for cultures DVT duplex studies with acute thrombus IV Abx as per ID UA pending Cx results keep RUE elevated on pillows okay for diet AM labs anticoagulation off load pressure for dti noted cellulitis and edema improved deteriorated intubated on vent support likely respiratory insufficiency labs ordered wean vent okay for tube feeds via ng - cont as tolerated wean vent am labs HD as per renal now with right IJ Temp HD cath will follow with brad thank you (2) Cellulitis Assessment & Plan: Pt presented on admission with reabsorbing blister lateral R heel. Base of injury indurated with delineated margins(L)4cm x (W)3cm.Non- blanching erythema Sacrum ,R and L buttocks(L)8.5cm x (W)9cm, with a partial thickness pressure injury noted to L buttocks. Base of wound is moist and viable (L)2.3cm x (W)3cm. Area around wound tender when minimally palpated. Pt noted to be wearing splint L foot. Per pt he fractured foot a few weeks ago. Splint removed to assess skin integrity. L heel and malleoli are pink and blanchable.Cavilon Skin Barrier applied to L heel and malleoli and each area covered with Optifoam drsg. Splint reapplied. No other skin concerns noted. unchanged Partial Thickness pressure injury L buttocks resolved . Non-blanching erythema without induration noted to Sacrum,R and L buttocks. (L)8cm x (W)9cm. Scrotum is grossly enlarged and is erythematous and macerated. Penile shaft is grossly swollen .Pt noted to have a partially opened blood blister with 25% biofilm at base of shaft of penis.(L)4.5cm x (W)2.5cm. Bilat groin, medial /posterior aspects of both upper thighs are erythematous and denuded. R lower ext edematous. R heel blister reabsorbed. Non--blanching erythema without induration noted to R heel. Splint removed from L foot. Optifoam drsgs removed from malleoli and heel. Pt noted to have developed several DTPI's despite having Optifoam drsgs. DTPI noted to L achilles . Base of wound is purple and fluctuant (L)0.6cm x (W) 2.7cm.DTPI noted to medial L malleolus(L)0.2cm x (W)0.3cm.Base of wound is purple with marginal erythema. DTPI noted to dorsal L foot. Base of wound is purple with marginal erythema along borders (L)0.9cm x (W)0.5cm.L heel is boggy with non-blanching erythema. Cavilon Skin Barrier applied to affected areas on L foot . Dorsal L foot ,Achilles .R and L malleoli and L heel each covered with Optifoam drsg. Non-blanching erythema without induration noted to lateral L tibia. At plantar aspect of L hallux small dry eschar noted. No erythema or fluctuance periwound. (L)0.5cm x (W)0.4cm. IN addition to Optifoam drsgs placed over each bony prominence of L foot ABD pads placed over dorsal and plantar L foot , Abd pads aligned along L tibia. Splint realigned to L foot Wrapped loosely with Kerlix then wrapped loosely with [place] wrap. L foot floated off mattress with pillow. Tx.Plan: Apply Cavilon to Dorsal L foot. L achilles .Medial/Lateral Malleoli L Foot and L heel. Cover each site with Optifoam drsg. Change every 7 days and prn. Apply Cavilon Plantar L foot. Cover with Optifoam drsg. Change every 7 days and prn. Apply Moisture Barrier Paste to sacrum. Cover with Optifoam drsg. Changee very 7 days and prn. Apply Cavilon Skin Barrier to Both heels. Cover each heel with Optifoam drsg. Change every 7 days and prn. Cleanse wound Shaft of penis with saline. Apply Moisture Barrier Paste Daily and prn. Apply Moisture Barrier Paste to Bilat groin, Scrotum, Medial/Posterior aspects of both upper thighs with each perineal care. Reposition at least every 2hours or as tolerated. Off-load heels with pillows. APM/DOREEN Yousif Mattress overlay. Bennett Logan Jun 08, 2019 11:00
--- NOTE | 2019-06-08 11:01 | Hematology/Onc Progress Note ---
Assessment/Plan Assessment/Plan # Anemia of chronic disease due to underlying chronic medical issues, multifactorial v Gi bleed --> Anemia workup has been reviewed, rule out gi bleed --> No evidence of hemolysis is noted, peripheral smear has been reviewed. --> Hgb goal >7. Transfuse prn. --> Epogen or iron at this time is not particularly indicated --> Medications have been reviewed --> low threshold for gi evaluation in case has occult + --> hgb trend: 9.3-->9.7-->8.1-->7.6-->8-->9.4-->9.2->7.5-->9.3-->8-->8.1 --> transf 05/28/19 with 1 unit prbc, 1 unit on 06/03 --> transfusion is a emergency, no family, no poa, is okay to transfuse # Right upper arm extremity axillary vein dvt --> agree to continue eliquis ONCE bleeding resolved --> continue for total of minimum of 3 months --> rescan arm in 3 mo # Thrombocytopenia is due to infection, i.e. cellulitis of upper extremity, likely picc line infection --> as per id on ax --> picc off --> levoflox/vanc-->zosyn/vanc--> zosyn-->dapto/zosyn --> plt trend 208-->132-->146k-->159-->217 # Renal insufficiency --> per Dr. Mera # Pneumonia --> abx per id # Dehydration. --> goal of euvolemia # Paroxysmal Atrial fibrillation with rapid ventricular response was on amiodarone gtt, now in sinus rhythm. --> per cards On PO amiodarone 200 bid, Lopressor 25 bid # Dysphagia with ng tube # Dvt ppx eliquis--> continued The timing of this note does not necessarily reflect the time of the patient was seen. Greatly appreciate consultation. Subjective Allergies: Coded Allergies: No Known Allergies (Unverified , 05/18/19) Subjective 05/24: awake and alert, v mask, labs reviewed, apixaban 05/25: as per gi, ngt and eliquis tolerated 05/26: pending clearance but still with ng and nonrebreather 05/27: hypoxic yesterday, deteriorated, coded, now intubated, icu, labs noted 05/28: icu, levophed gtt, hgb 7.6, repeat cbc 05/29: remains in the icu, given prbc last night, no bleeding 05/30: no events, no bleeding, ++ fredo and on pressor 05/31: intubated, bp better on pressor, no bleeding, coag ordered 06/02: reamins ill appearing, on vent, labs noted, on vent, poorly responsive 06/03: no events, no bleeding, labs noted, dw surgery, and Rn, monitoring plt 06/04: tolerating tube feeds, labs noted, in the icu 06/05: restraints, cxr unchanged, anticoagulants on hold until further notice 06/06: no events, no bleeding, no night sweats, no bleeding 06/08: icu, unable to wean per resp, apixaban restarted, labs reviewed Objective Objective Current Medications Medications (Trade) Dose Ordered Sig/Phillip Route PRN Reason Start Time Stop Time Status Last Admin Dose Admin Acetaminophen (Tylenol) 500 mg Q4H PRN GT Mild Pain/Temp > 100.5 05/27/19 07:45 06/19/19 20:29 06/06/19 13:52 Amiodarone HCl (Cordarone) 200 mg DAILY ORAL 06/07/19 16:15 07/07/19 16:14 06/08/19 08:21 Apixaban (Eliquis) 2.5 mg Q12HR ORAL 06/08/19 21:00 07/08/19 20:59 Chlorhexidine Gluconate (Reina-Hex 2%) 1 applic DAILY@1999 TOPIC 05/27/19 20:00 06/26/19 19:59 06/07/19 21:27 Daptomycin 500 mg/ Sodium Chloride 55 ml @ 100 mls/hr Q48H IV 05/29/19 13:00 06/11/19 12:59 06/06/19 13:53 Ipratropium [place] (Atrovent) 500 mcg Q4H PRN HHN Shortness of Breath 06/08/19 10:00 06/13/19 09:59 Lansoprazole (Prevacid) 30 mg BID NG 1/10/20 18:00 07/06/19 17:59 06/08/19 08:21 Lorazepam (Ativan 2mg/ml 1ml) 1 mg Q4H PRN IV For Anxiety/Agitation 06/08/19 10:00 06/15/19 09:59 Methylprednisolone Sodium Succinate (Solu-MEDROL) 60 mg EVERY 12 HOURS IVP 06/04/19 21:00 07/04/19 20:59 06/08/19 08:21 Metoprolol Tartrate (Lopressor) 5 mg Q5MIN X 3 IVP 06/07/19 16:15 07/07/19 16:14 06/07/19 17:25 Norepinephrine Bitartrate 4 mg/ Dextrose 250 ml @ 0 mls/hr Q24H IV 05/29/19 19:20 06/28/19 19:19 05/30/19 22:45 Piperacillin Sod/ Tazobactam Sod 2.25 gm/Dextrose 55 ml @ 110 mls/hr Q8HR@0400,1200,2000 IV 06/03/19 12:00 06/10/19 11:59 06/08/19 04:56 Vitamin D (Vitamin D) 5,000 intlu DAILY GT 06/07/19 13:00 07/07/19 12:59 06/08/19 08:21 Last 24 Hour Vital Signs Date Time Temp Pulse Resp B/P (MAP) Pulse Ox O2 Delivery O2 Flow Rate FiO2 06/08/19 10:00 89 11 161/73 (102) 96 06/08/19 09:00 91 0 154/76 (102) 96 06/08/19 08:40 101 33 45 06/08/19 08:16 87 35 97 Mechanical Ventilator 45 83 34 98 06/08/19 08:00 67 06/08/19 08:00 97.7 91 34 155/72 (99) 98 06/08/19 08:00 45 06/08/19 07:00 86 29 162/83 (109) 97 06/08/19 06:32 81 23 100 Mechanical Ventilator 45 06/08/19 06:32 81 23 45 06/08/19 06:30 64 17 06/08/19 06:00 77 21 141/62 (88) 100 06/08/19 05:10 77 16 50 06/08/19 05:00 65 5 134/49 (77) 100 06/08/19 04:00 94 06/08/19 04:00 50 06/08/19 04:00 98.8 65 7 134/49 (77) 99 06/08/19 04:00 Mechanical Ventilator 06/08/19 03:23 93 32 50 06/08/19 03:18 92 25 169/77 (107) 99 06/08/19 03:00 94 33 171/80 (110) 99 06/08/19 02:00 87 26 161/73 (102) 98 06/08/19 01:08 84 28 50 06/08/19 01:00 79 17 153/63 (93) 98 06/08/19 01:00 79 17 153/63 (93) 98 06/08/19 00:00 86 13 158/72 (100) 98 06/08/19 00:00 50 06/08/19 00:00 77 06/08/19 00:00 Mechanical Ventilator 06/08/19 00:00 98.7 86 13 158/72 (100) 98 06/07/19 23:00 77 26 159/61 (93) 99 06/07/19 22:58 82 28 50 06/07/19 22:00 79 22 155/78 (103) 98 06/07/19 21:15 80 30 50 06/07/19 21:00 75 23 149/66 (93) 100 06/07/19 20:00 50 06/07/19 20:00 75 06/07/19 20:00 Mechanical Ventilator 06/07/19 20:00 98.9 56 16 103/45 (64) 100 06/07/19 19:20 149/66 06/07/19 19:00 76 17 144/59 (87) 100 06/07/19 18:49 73 19 50 06/07/19 18:00 71 18 139/70 (93) 99 06/07/19 17:25 155 148/63 06/07/19 17:02 114 28 50 06/07/19 17:00 110 25 148/63 (91) 98 06/07/19 16:18 168 140/74 06/07/19 16:00 Mechanical Ventilator 06/07/19 16:00 50 06/07/19 16:00 171 06/07/19 16:00 99.3 166 20 140/74 (96) 96 06/07/19 15:50 167 39 50 06/07/19 15:00 89 34 181/98 (125) 92 06/07/19 14:00 86 31 159/73 (101) 95 06/07/19 13:21 97 32 40 06/07/19 13:18 94 06/07/19 13:13 94 38 40 40 06/07/19 13:00 103 32 158/80 (106) 93 06/07/19 12:00 98.7 92 34 170/72 (104) 95 06/07/19 12:00 40 06/07/19 12:00 92 06/07/19 12:00 Mechanical Ventilator 06/07/19 11:30 94 20 40 06/07/19 11:00 82 24 152/56 (88) 95 06/07/19 10:00 96 32 161/88 (112) 94 06/07/19 09:15 90 34 40 06/07/19 09:00 99.2 83 28 154/71 (98) 96 06/07/19 08:00 40 06/07/19 08:00 81 06/07/19 08:00 Mechanical Ventilator 06/07/19 08:00 84 33 148/73 (98) 97 06/07/19 07:56 60 19 40 06/07/19 07:00 84 35 153/82 (105) 96 06/07/19 06:00 80 29 154/66 (95) 96 06/07/19 05:00 57 16 105/47 (66) 96 06/07/19 04:41 57 18 40 06/07/19 04:00 98.5 90 28 144/55 (84) 96 06/07/19 04:00 40 06/07/19 04:00 Mechanical Ventilator 06/07/19 04:00 93 06/07/19 03:20 96 35 40 06/07/19 03:00 103 32 149/83 (105) 06/07/19 02:00 83 28 153/60 (91) 95 06/07/19 01:00 83 28 150/55 (86) 95 06/07/19 00:31 91 32 40 06/07/19 00:00 40 06/07/19 00:00 Mechanical Ventilator 06/07/19 00:00 89 06/07/19 00:00 97.8 99 33 159/71 (100) 95 06/06/19 23:25 77 35 40 06/06/19 23:00 63 15 143/66 (91) 97 06/06/19 22:00 86 34 151/77 (101) 96 06/06/19 21:00 87 24 154/66 (95) 96 06/06/19 20:47 77 29 50 06/06/19 20:00 98.3 76 20 146/65 (92) 99 06/06/19 20:00 50 06/06/19 20:00 82 06/06/19 20:00 Mechanical Ventilator 06/06/19 19:22 88 29 50 06/06/19 19:00 76 20 135/59 (84) 99 06/06/19 18:00 65 20 131/50 (77) 99 06/06/19 17:00 83 30 154/67 (96) 98 06/06/19 16:31 78 26 60 06/06/19 16:00 90 06/06/19 16:00 84 27 149/64 (92) 98 06/06/19 16:00 Mechanical Ventilator 06/06/19 16:00 60 06/06/19 15:00 86 23 149/64 (92) 98 06/06/19 14:52 70 26 60 06/06/19 14:00 82 26 153/61 (91) 97 06/06/19 13:00 83 19 153/71 (98) 98 06/06/19 12:59 84 23 60 06/06/19 12:00 60 06/06/19 12:00 Mechanical Ventilator 06/06/19 12:00 82 06/06/19 12:00 98.6 80 26 145/63 (90) 99 06/06/19 11:00 68 18 138/62 (87) 99 Intake and Output 06/07/19 06/08/19 19:00 07:00 Intake Total 955 ml 610 ml Output Total 341 ml 125 ml Balance 614 ml 485 ml Free Water 20 ml IV Total 255 ml 110 ml Tube Feeding 480 ml 480 ml Other 220 ml Output Urine Total 41 ml 25 ml Stool Total 300 ml 100 ml Labs Test 06/06/19 04:30 06/07/19 04:20 06/08/19 05:30 White Blood Count 8.2 K/UL (4.8-10.8) 11.6 K/UL (4.8-10.8) 12.1 K/UL (4.8-10.8) Red Blood Count 2.60 M/UL (4.70-6.10) 2.77 M/UL (4.70-6.10) 2.64 M/UL (4.70-6.10) Hemoglobin 8.0 G/DL (14.2-18.0) 8.4 G/DL (14.2-18.0) 8.1 G/DL (14.2-18.0) Hematocrit 23.4 % (42.0-52.0) 25.0 % (42.0-52.0) 23.5 % (42.0-52.0) Mean Corpuscular Volume 90 FL (80-99) 90 FL (80-99) 89 FL (80-99) Mean Corpuscular Hemoglobin 30.7 PG (27.0-31.0) 30.1 PG (27.0-31.0) 30.8 PG (27.0-31.0) Mean Corpuscular Hemoglobin Concent 34.2 G/DL (32.0-36.0) 33.4 G/DL (32.0-36.0) 34.5 G/DL (32.0-36.0) Red Cell Distribution Width 15.4 % (11.6-14.8) 15.5 % (11.6-14.8) 15.1 % (11.6-14.8) Platelet Count 165 K/UL (150-450) 226 K/UL (150-450) 217 K/UL (150-450) Mean Platelet Volume 5.2 FL (6.5-10.1) 4.7 FL (6.5-10.1) 5.1 FL (6.5-10.1) Neutrophils (%) (Auto) % (45.0-75.0) % (45.0-75.0) % (45.0-75.0) Lymphocytes (%) (Auto) % (20.0-45.0) % (20.0-45.0) % (20.0-45.0) Monocytes (%) (Auto) % (1.0-10.0) % (1.0-10.0) % (1.0-10.0) Eosinophils (%) (Auto) % (0.0-3.0) % (0.0-3.0) % (0.0-3.0) Basophils (%) (Auto) % (0.0-2.0) % (0.0-2.0) % (0.0-2.0) Sodium Level 138 MMOL/L (136-145) 137 MMOL/L (136-145) 136 MMOL/L (136-145) Potassium Level 3.3 MMOL/L (3.5-5.1) 3.3 MMOL/L (3.5-5.1) 3.7 MMOL/L (3.5-5.1) Chloride Level 103 MMOL/L (98-107) 103 MMOL/L (98-107) 103 MMOL/L (98-107) Carbon Dioxide Level 24 MMOL/L (21-32) 24 MMOL/L (21-32) 21 MMOL/L (21-32) Anion Gap 12 mmol/L (5-15) 10 mmol/L (5-15) 12 mmol/L (5-15) Blood Urea Nitrogen 66 mg/dL (7-18) 78 mg/dL (7-18) 91 mg/dL (7-18) Creatinine 4.8 MG/DL (0.55-1.30) 5.4 MG/DL (0.55-1.30) 5.9 MG/DL (0.55-1.30) Estimat Glomerular Filtration Rate mL/min (>60) mL/min (>60) mL/min (>60) Glucose Level 189 MG/DL (74-106) 240 MG/DL (74-106) 168 MG/DL (74-106) Calcium Level 6.7 MG/DL (8.5-10.1) 6.8 MG/DL (8.5-10.1) 7.0 MG/DL (8.5-10.1) Phosphorus Level 4.0 MG/DL (2.5-4.9) 3.9 MG/DL (2.5-4.9) 4.6 MG/DL (2.5-4.9) Magnesium Level 2.1 MG/DL (1.8-2.4) 2.2 MG/DL (1.8-2.4) 2.2 MG/DL (1.8-2.4) Total Creatine Kinase 13 U/L (26-308) Differential Total Cells Counted 100 Neutrophils % (Manual) 96 % (45-75) Lymphocytes % (Manual) 2 % (20-45) Monocytes % (Manual) 2 % (1-10) Eosinophils % (Manual) 0 % (0-3) Basophils % (Manual) 0 % (0-2) Band Neutrophils 0 % (0-8) Platelet Estimate Adequate Platelet Morphology Normal Uric Acid 5.6 MG/DL (2.6-7.2) 6.2 MG/DL (2.6-7.2) Total Bilirubin 0.3 MG/DL (0.2-1.0) 0.3 MG/DL (0.2-1.0) Aspartate Amino Transf (AST/SGOT) 31 U/L (15-37) 29 U/L (15-37) Alanine Aminotransferase (ALT/SGPT) 26 U/L (12-78) 26 U/L (12-78) Alkaline Phosphatase 60 U/L (46-116) 57 U/L (46-116) C-Reactive Protein, Quantitative 1.8 mg/dL (0.00-0.90) 1.1 mg/dL (0.00-0.90) Pro-B-Type Natriuretic Peptide 9495 pg/mL (0-125) 91565 pg/mL (0-125) Total Protein 5.2 G/DL (6.4-8.2) 4.8 G/DL (6.4-8.2) Albumin 1.6 G/DL (3.4-5.0) 1.6 G/DL (3.4-5.0) Globulin 3.6 g/dL 3.2 g/dL Albumin/Globulin Ratio 0.4 (1.0-2.7) 0.5 (1.0-2.7) Random Vancomycin Level 16.7 ug/mL 15.5 ug/mL Height (Feet): 5 Height (Inches): 7.00 Weight (Pounds): 208 Objective PE: Vitals: reviewed General Appearance: NAD HEENT: normocephalic, atraumatic++ ngt Neck: non-tender, normal alignment Respiratory/Chest: VENT++ Cardiovascular/Chest: normal peripheral pulses, normal rate Abdomen: normal bowel sounds, soft, nontender Extremities: normal range of motion ++ right arm swelling Suleman Addison MD Jun 08, 2019 11:01
--- NOTE | 2019-06-08 11:31 | General Progress Note ---
Assessment/Plan Problem List: (1) SOB (shortness of breath) ICD Codes: R06.02 - Shortness of breath SNOMED: 377624082 (2) Cellulitis ICD Codes: L03.90 - Cellulitis, unspecified SNOMED: 572116208 (3) Cellulitis of upper extremity ICD Codes: L03.119 - Cellulitis of unspecified part of limb SNOMED: 063306502 Qualifiers: Qualified Codes: L03.113 - Cellulitis of right upper limb (4) Renal insufficiency ICD Codes: N28.9 - Disorder of kidney and ureter, unspecified SNOMED: 278068573, 187777695 (5) Renal failure (ARF), acute on chronic ICD Codes: N17.9 - Acute kidney failure, unspecified; N18.9 - Chronic kidney disease, unspecified SNOMED: 485613672 (6) Anemia ICD Codes: D64.9 - Anemia, unspecified SNOMED: 689301120 (7) Hypothyroidism ICD Codes: E03.9 - Hypothyroidism, unspecified SNOMED: 29081135 (8) UTI (urinary tract infection) ICD Codes: N39.0 - Urinary tract infection, site not specified SNOMED: 89675411 Status: progressing, unchanged Assessment/Plan: intubated not improving lethargic iv abx per id rhonci chf sepsis pna resp failure hypotheroid le wound has dorsal pedalis pulse lwound and le fracture Subjective ROS Limited/Unobtainable: Yes Allergies: Coded Allergies: No Known Allergies (Unverified , 05/18/19) Objective Last 24 Hour Vital Signs Date Time Temp Pulse Resp B/P (MAP) Pulse Ox O2 Delivery O2 Flow Rate FiO2 06/08/19 10:00 89 11 161/73 (102) 96 06/08/19 09:00 91 0 154/76 (102) 96 06/08/19 08:40 101 33 45 06/08/19 08:16 87 35 97 Mechanical Ventilator 45 83 34 98 06/08/19 08:00 67 06/08/19 08:00 97.7 91 34 155/72 (99) 98 06/08/19 08:00 45 06/08/19 07:00 86 29 162/83 (109) 97 06/08/19 06:32 81 23 100 Mechanical Ventilator 45 06/08/19 06:32 81 23 45 06/08/19 06:30 64 17 06/08/19 06:00 77 21 141/62 (88) 100 06/08/19 05:10 77 16 50 06/08/19 05:00 65 5 134/49 (77) 100 06/08/19 04:00 94 06/08/19 04:00 50 06/08/19 04:00 98.8 65 7 134/49 (77) 99 06/08/19 04:00 Mechanical Ventilator 06/08/19 03:23 93 32 50 06/08/19 03:18 92 25 169/77 (107) 99 06/08/19 03:00 94 33 171/80 (110) 99 06/08/19 02:00 87 26 161/73 (102) 98 06/08/19 01:08 84 28 50 06/08/19 01:00 79 17 153/63 (93) 98 06/08/19 01:00 79 17 153/63 (93) 98 06/08/19 00:00 86 13 158/72 (100) 98 06/08/19 00:00 50 06/08/19 00:00 77 06/08/19 00:00 Mechanical Ventilator 06/08/19 00:00 98.7 86 13 158/72 (100) 98 06/07/19 23:00 77 26 159/61 (93) 99 06/07/19 22:58 82 28 50 06/07/19 22:00 79 22 155/78 (103) 98 06/07/19 21:15 80 30 50 06/07/19 21:00 75 23 149/66 (93) 100 06/07/19 20:00 50 06/07/19 20:00 75 06/07/19 20:00 Mechanical Ventilator 06/07/19 20:00 98.9 56 16 103/45 (64) 100 06/07/19 19:20 149/66 06/07/19 19:00 76 17 144/59 (87) 100 06/07/19 18:49 73 19 50 06/07/19 18:00 71 18 139/70 (93) 99 06/07/19 17:25 155 148/63 06/07/19 17:02 114 28 50 06/07/19 17:00 110 25 148/63 (91) 98 06/07/19 16:18 168 140/74 06/07/19 16:00 Mechanical Ventilator 06/07/19 16:00 50 06/07/19 16:00 171 06/07/19 16:00 99.3 166 20 140/74 (96) 96 06/07/19 15:50 167 39 50 06/07/19 15:00 89 34 181/98 (125) 92 06/07/19 14:00 86 31 159/73 (101) 95 06/07/19 13:21 97 32 40 06/07/19 13:18 94 06/07/19 13:13 94 38 40 40 06/07/19 13:00 103 32 158/80 (106) 93 06/07/19 12:00 98.7 92 34 170/72 (104) 95 06/07/19 12:00 40 06/07/19 12:00 92 06/07/19 12:00 Mechanical Ventilator Intake and Output 06/07/19 06/08/19 19:00 07:00 Intake Total 955 ml 610 ml Output Total 341 ml 125 ml Balance 614 ml 485 ml Free Water 20 ml IV Total 255 ml 110 ml Tube Feeding 480 ml 480 ml Other 220 ml Output Urine Total 41 ml 25 ml Stool Total 300 ml 100 ml Laboratory Tests 06/08/19 05:30: White Blood Count 12.1H, Red Blood Count 2.64L, Hemoglobin 8.1L, Hematocrit 23.5L, Mean Corpuscular Volume 89, Mean Corpuscular Hemoglobin 30.8, Mean Corpuscular Hemoglobin Concent 34.5, Red Cell Distribution Width 15.1H, Platelet Count 217, Mean Platelet Volume 5.1L, Neutrophils (%) (Auto) , Lymphocytes (%) (Auto) , Monocytes (%) (Auto) , Eosinophils (%) (Auto) , Basophils (%) (Auto) , Neutrophils % (Manual) [Pending], Lymphocytes % (Manual) [Pending], Platelet Estimate [Pending], Platelet Morphology [Pending], Sodium Level 136, Potassium Level 3.7, Chloride Level 103, Carbon Dioxide Level 21, Anion Gap 12, Blood Urea Nitrogen 91H, Creatinine 5.9H, Estimat Glomerular Filtration Rate , Glucose Level 168H, Uric Acid 6.2, Calcium Level 7.0L, Phosphorus Level 4.6, Magnesium Level 2.2, Total Bilirubin 0.3, Aspartate Amino Transf (AST/SGOT) 29, Alanine Aminotransferase (ALT/SGPT) 26, Alkaline Phosphatase 57, C-Reactive Protein, Quantitative 1.1H, Pro-B-Type Natriuretic Peptide 81082P, Total Protein 4.8L, Albumin 1.6L, Globulin 3.2, Albumin/ Globulin Ratio 0.5L, Random Vancomycin Level 15.5 Height (Feet): 5 Height (Inches): 7.00 Weight (Pounds): 208 General Appearance: lethargic, confused Joslyn Wiggins MD Jun 08, 2019 11:30
--- NOTE | 2019-06-08 13:31 | Nephrology Progress Note ---
Assessment/Plan Problem List: (1) Renal failure (ARF), acute on chronic Assessment: Cr rising (2) Cellulitis of upper extremity (3) A-fib (4) Pneumonia (5) UTI (urinary tract infection) (6) Anemia Assessment: worsened (7) Hypothyroidism Assessment - KIMO on CKD - Urinary tract infection. - Anemia- - Dehydration. - Cellulitis of Upper extremity - HTN Plan dialysis 06/07 cancelled due to tachycardia- on dialysis now 06/08 dialysis done 06/02 - repeat 06/04 and then 06/07 DC Midodrine DC IV IV Calcium and PO Vit D Transfuse one unit PRBcs in ICU- intubated BP meds and Mind altering meds discontinued On midodrine check vanco levels - hold vanco doses previously: Per cardiology Anemia kumari- Avoid Nephrotoxics Per ID Allow CHANDA inhibitor to continue as long as renal function does not worsen. PICC line has been removed. CXR: Increased right pleural effusion and similar left pleural effusion. Increased interstitial and hazy opacities throughout the lungs. Subjective ROS Limited/Unobtainable: Yes Objective Objective Last 24 Hour Vital Signs Date Time Temp Pulse Resp B/P (MAP) Pulse Ox O2 Delivery O2 Flow Rate FiO2 06/08/19 12:47 95 24 99 Mechanical Ventilator 45 97 24 45 06/08/19 12:00 97.8 97 142/74 (96) 94 06/08/19 12:00 85 06/08/19 12:00 Mechanical Ventilator 06/08/19 12:00 45 06/08/19 11:30 78 19 45 06/08/19 11:00 78 22 151/53 (85) 98 06/08/19 10:00 89 11 161/73 (102) 96 06/08/19 09:00 91 0 154/76 (102) 96 06/08/19 08:40 101 33 45 06/08/19 08:16 87 35 97 Mechanical Ventilator 45 83 34 98 06/08/19 08:00 67 06/08/19 08:00 97.7 91 34 155/72 (99) 98 06/08/19 08:00 Mechanical Ventilator 06/08/19 08:00 45 06/08/19 07:00 86 29 162/83 (109) 97 06/08/19 06:32 81 23 100 Mechanical Ventilator 45 06/08/19 06:32 81 23 45 06/08/19 06:30 64 17 06/08/19 06:00 77 21 141/62 (88) 100 06/08/19 05:10 77 16 50 06/08/19 05:00 65 5 134/49 (77) 100 06/08/19 04:00 94 06/08/19 04:00 50 06/08/19 04:00 98.8 65 7 134/49 (77) 99 06/08/19 04:00 Mechanical Ventilator 06/08/19 03:23 93 32 50 06/08/19 03:18 92 25 169/77 (107) 99 06/08/19 03:00 94 33 171/80 (110) 99 06/08/19 02:00 87 26 161/73 (102) 98 06/08/19 01:08 84 28 50 06/08/19 01:00 79 17 153/63 (93) 98 06/08/19 01:00 79 17 153/63 (93) 98 06/08/19 00:00 86 13 158/72 (100) 98 06/08/19 00:00 50 06/08/19 00:00 77 06/08/19 00:00 Mechanical Ventilator 06/08/19 00:00 98.7 86 13 158/72 (100) 98 06/07/19 23:00 77 26 159/61 (93) 99 06/07/19 22:58 82 28 50 06/07/19 22:00 79 22 155/78 (103) 98 06/07/19 21:15 80 30 50 06/07/19 21:00 75 23 149/66 (93) 100 06/07/19 20:00 50 06/07/19 20:00 75 06/07/19 20:00 Mechanical Ventilator 06/07/19 20:00 98.9 56 16 103/45 (64) 100 06/07/19 19:20 149/66 06/07/19 19:00 76 17 144/59 (87) 100 06/07/19 18:49 73 19 50 06/07/19 18:00 71 18 139/70 (93) 99 06/07/19 17:25 155 148/63 06/07/19 17:02 114 28 50 06/07/19 17:00 110 25 148/63 (91) 98 06/07/19 16:18 168 140/74 06/07/19 16:00 Mechanical Ventilator 06/07/19 16:00 50 06/07/19 16:00 171 06/07/19 16:00 99.3 166 20 140/74 (96) 96 06/07/19 15:50 167 39 50 06/07/19 15:00 89 34 181/98 (125) 92 06/07/19 14:00 86 31 159/73 (101) 95 Intake and Output 06/07/19 06/08/19 19:00 07:00 Intake Total 955 ml 610 ml Output Total 341 ml 125 ml Balance 614 ml 485 ml Free Water 20 ml IV Total 255 ml 110 ml Tube Feeding 480 ml 480 ml Other 220 ml Output Urine Total 41 ml 25 ml Stool Total 300 ml 100 ml Laboratory Tests 06/08/19 05:30: White Blood Count 12.1H, Red Blood Count 2.64L, Hemoglobin 8.1L, Hematocrit 23.5L, Mean Corpuscular Volume 89, Mean Corpuscular Hemoglobin 30.8, Mean Corpuscular Hemoglobin Concent 34.5, Red Cell Distribution Width 15.1H, Platelet Count 217, Mean Platelet Volume 5.1L, Neutrophils (%) (Auto) , Lymphocytes (%) (Auto) , Monocytes (%) (Auto) , Eosinophils (%) (Auto) , Basophils (%) (Auto) , Differential Total Cells Counted 100, Neutrophils % ( Manual) 96H, Lymphocytes % (Manual) 2L, Monocytes % (Manual) 2, Eosinophils % ( Manual) 0, Basophils % (Manual) 0, Band Neutrophils 0, Platelet Estimate Adequate, Platelet Morphology Normal, Anisocytosis 1+, Sodium Level 136, Potassium Level 3.7, Chloride Level 103, Carbon Dioxide Level 21, Anion Gap 12, Blood Urea Nitrogen 91H, Creatinine 5.9H, Estimat Glomerular Filtration Rate , Glucose Level 168H, Uric Acid 6.2, Calcium Level 7.0L, Phosphorus Level 4.6, Magnesium Level 2.2, Total Bilirubin 0.3, Aspartate Amino Transf (AST/SGOT) 29, Alanine Aminotransferase (ALT/SGPT) 26, Alkaline Phosphatase 57, C-Reactive Protein, Quantitative 1.1H, Pro-B-Type Natriuretic Peptide [id number], Total Protein 4.8L, Albumin 1.6L, Globulin 3.2, Albumin/Globulin Ratio 0.5L, Random Vancomycin Level 15.5 Height (Feet): 5 Height (Inches): 7.00 Weight (Pounds): 208 General Appearance: no apparent distress Cardiovascular: tachycardia Respiratory/Chest: decreased breath sounds Abdomen: distended Objective no change Reinier Mera MD Jun 08, 2019 13:31
[2019-06-08] MEDS: DAPTOmycin 500 MG in NS 55 ML IV SCH (13:52)
[2019-06-08] MEDS: LORazepam Inj 2mg/ml 1ml IV PRN (13:52)
[2019-06-08] MEDS: Dyna-Hex 2% Top Sol 2oz TOPIC SCH (20:22)
[2019-06-08] MEDS: Eliquis 2.5mg tablet ORAL SCH (20:30)
--- NOTE | 2019-06-08 23:07 | Cardiology Progress Note ---
Assessment/Plan Assessment/Plan 1. SVT resolved now in SR/SB, continue amiodarone. 2. Paroxysmal atrial fibrillation now in sinus rhythm. 3. Septic shock, resolved, likely due to bilateral PNA, on midodrine. 4. Oliguric acute kidney injury, CXR shows B/L pulmonary edema, on HD. 5. Small pericardial effusion with pleural effusion, s/p HD. 6. B/L pleural effusion. 7. Acute respiratory failure, failed weaning. Subjective Subjective Converted back to sinus bradycardia at rate of 57. Intubated. Objective Last 24 Hour Vital Signs Date Time Temp Pulse Resp B/P (MAP) Pulse Ox O2 Delivery O2 Flow Rate FiO2 06/08/19 22:00 57 16 92/41 (58) 96 06/08/19 21:00 64 16 99/42 (61) 97 06/08/19 20:53 73 18 45 06/08/19 20:00 98.7 58 16 102/40 (60) 98 06/08/19 20:00 Mechanical Ventilator 06/08/19 20:00 58 06/08/19 20:00 45 06/08/19 19:30 57 17 45 06/08/19 19:20 98/39 06/08/19 19:00 57 98/39 (58) 99 06/08/19 18:00 57 101/41 (61) 99 06/08/19 17:21 71 18 45 06/08/19 17:00 63 108/49 (68) 99 06/08/19 16:00 57 06/08/19 16:00 45 06/08/19 16:00 Mechanical Ventilator 06/08/19 16:00 98.3 58 106/44 (64) 99 06/08/19 15:29 58 16 45 06/08/19 15:00 74 119/60 (79) 99 06/08/19 14:00 97 118/50 (72) 98 06/08/19 13:00 97 142/79 (100) 98 06/08/19 12:47 95 24 99 Mechanical Ventilator 45 97 24 45 06/08/19 12:00 97.8 97 142/74 (96) 94 06/08/19 12:00 85 06/08/19 12:00 Mechanical Ventilator 06/08/19 12:00 45 06/08/19 11:30 78 19 45 06/08/19 11:00 78 22 151/53 (85) 98 06/08/19 10:00 89 11 161/73 (102) 96 06/08/19 09:00 91 0 154/76 (102) 96 06/08/19 08:40 101 33 45 06/08/19 08:16 87 35 97 Mechanical Ventilator 45 83 34 98 06/08/19 08:00 67 06/08/19 08:00 97.7 91 34 155/72 (99) 98 06/08/19 08:00 Mechanical Ventilator 06/08/19 08:00 45 06/08/19 07:00 86 29 162/83 (109) 97 06/08/19 06:32 81 23 100 Mechanical Ventilator 45 06/08/19 06:32 81 23 45 06/08/19 06:30 64 17 06/08/19 06:00 77 21 141/62 (88) 100 06/08/19 05:10 77 16 50 06/08/19 05:00 65 5 134/49 (77) 100 06/08/19 04:00 94 06/08/19 04:00 50 06/08/19 04:00 98.8 65 7 134/49 (77) 99 06/08/19 04:00 Mechanical Ventilator 06/08/19 03:23 93 32 50 06/08/19 03:18 92 25 169/77 (107) 99 06/08/19 03:00 94 33 171/80 (110) 99 06/08/19 02:00 87 26 161/73 (102) 98 06/08/19 01:08 84 28 50 06/08/19 01:00 79 17 153/63 (93) 98 06/08/19 01:00 79 17 153/63 (93) 98 06/08/19 00:00 86 13 158/72 (100) 98 06/08/19 00:00 50 06/08/19 00:00 77 06/08/19 00:00 Mechanical Ventilator 06/08/19 00:00 98.7 86 13 158/72 (100) 98 Intake and Output 06/07/19 06/08/19 18:59 06:59 Intake Total 995 ml 610 ml Output Total 339 ml 127 ml Balance 656 ml 483 ml Free Water 20 ml IV Total 295 ml 110 ml Tube Feeding 480 ml 480 ml Other 220 ml Output Urine Total 39 ml 27 ml Stool Total 300 ml 100 ml 2D Echo: EF 65%,Mod AR,Elevated RAP, RVSP 30,Small pericardial eff, pleural effusion Laboratory Tests Test 06/08/19 05:30 White Blood Count 12.1 K/UL (4.8-10.8) H Red Blood Count 2.64 M/UL (4.70-6.10) L Hemoglobin 8.1 G/DL (14.2-18.0) L Hematocrit 23.5 % (42.0-52.0) L Mean Corpuscular Volume 89 FL (80-99) Mean Corpuscular Hemoglobin 30.8 PG (27.0-31.0) Mean Corpuscular Hemoglobin Concent 34.5 G/DL (32.0-36.0) Red Cell Distribution Width 15.1 % (11.6-14.8) H Platelet Count 217 K/UL (150-450) Mean Platelet Volume 5.1 FL (6.5-10.1) L Neutrophils (%) (Auto) % (45.0-75.0) Lymphocytes (%) (Auto) % (20.0-45.0) Monocytes (%) (Auto) % (1.0-10.0) Eosinophils (%) (Auto) % (0.0-3.0) Basophils (%) (Auto) % (0.0-2.0) Differential Total Cells Counted 100 Neutrophils % (Manual) 96 % (45-75) H Lymphocytes % (Manual) 2 % (20-45) L Monocytes % (Manual) 2 % (1-10) Eosinophils % (Manual) 0 % (0-3) Basophils % (Manual) 0 % (0-2) Band Neutrophils 0 % (0-8) Platelet Estimate Adequate Platelet Morphology Normal Anisocytosis 1+ Sodium Level 136 MMOL/L (136-145) Potassium Level 3.7 MMOL/L (3.5-5.1) Chloride Level 103 MMOL/L (98-107) Carbon Dioxide Level 21 MMOL/L (21-32) Anion Gap 12 mmol/L (5-15) Blood Urea Nitrogen 91 mg/dL (7-18) H Creatinine 5.9 MG/DL (0.55-1.30) H Estimat Glomerular Filtration Rate mL/min (>60) Glucose Level 168 MG/DL (74-106) H Uric Acid 6.2 MG/DL (2.6-7.2) Calcium Level 7.0 MG/DL (8.5-10.1) L Phosphorus Level 4.6 MG/DL (2.5-4.9) Magnesium Level 2.2 MG/DL (1.8-2.4) Total Bilirubin 0.3 MG/DL (0.2-1.0) Aspartate Amino Transf (AST/SGOT) 29 U/L (15-37) Alanine Aminotransferase (ALT/SGPT) 26 U/L (12-78) Alkaline Phosphatase 57 U/L (46-116) C-Reactive Protein, Quantitative 1.1 mg/dL (0.00-0.90) H Pro-B-Type Natriuretic Peptide 29808 pg/mL (0-125) H Total Protein 4.8 G/DL (6.4-8.2) L Albumin 1.6 G/DL (3.4-5.0) L Globulin 3.2 g/dL Albumin/Globulin Ratio 0.5 (1.0-2.7) L Random Vancomycin Level 15.5 ug/mL Objective HEENT: Atraumatic and normocephalic. Anicteric. Pupils are equal, round, and reactive to light and accommodation. Extraocular muscles intact. NECK: JVP less than 5 cm. No carotid bruit. Carotid upstroke is 2+ bilaterally. CARDIOVASCULAR: Normal S1, S2. Regular rate and rhythm. No murmurs, gallops, or rubs. PMI is at fourth intercostal space in the midclavicular line. LUNGS: Diminished both bases. ABDOMEN: Soft, nontender, and nondistended. No hepatosplenomegaly. Positive bowel sounds. EXTREMITIES: No evidence of edema, clubbing, or cyanosis. Del Garcia MD Jun 08, 2019 23:07
[2019-06-09] VITALS (24 sets, daily range): BP systolic 90–177; BP diastolic 39–83
[2019-06-09] MEDS: Zosyn 2.25 gm in D5W 55ml IV SCH ×3 (04:02→20:26)
[2019-06-09 06:33] LABS: HEMATOCRIT 25.7 % (42.0-52.0); HEMOGLOBIN 8.6 G/DL (14.2-18.0); MEAN CORPUSCULAR VOLUME 90 FL (80-99); PLATELET COUNT 211 K/UL (150-450); RED BLOOD COUNT 2.85 M/UL (4.70-6.10); RED CELL DISTRIBUTION WIDTH 15.9 % (11.6-14.8); WHITE BLOOD COUNT 10.8 K/UL (4.8-10.8)
[2019-06-09 07:03] LABS: ALANINE AMINOTRANSFERASE 29 U/L (12-78); ALBUMIN 1.6 G/DL (3.4-5.0); ALBUMIN/GLOBULIN RATIO 0.5 (1.0-2.7); ALKALINE PHOSPHATASE 57 U/L (46-116); ANION GAP 10 mmol/L (5-15); ASPARTATE AMINO TRANSFERASE 29 U/L (15-37); BILIRUBIN,TOTAL 0.3 MG/DL (0.2-1.0); BLOOD UREA NITROGEN 73 mg/dL (7-18); CALCIUM 7.3 MG/DL (8.5-10.1); CARBON DIOXIDE 25 MMOL/L (21-32); CHLORIDE 106 MMOL/L (98-107); CREATININE 4.8 MG/DL (0.55-1.30); POTASSIUM 3.4 MMOL/L (3.5-5.1); SODIUM 141 MMOL/L (136-145)
[2019-06-09] MEDS: Solu-MEDROL 125mg Inj IVP SCH ×2 (08:57→21:36)
[2019-06-09] MEDS: Amiodarone 200mg tab ORAL SCH (08:58)
[2019-06-09] MEDS: Eliquis 2.5mg tablet ORAL SCH ×2 (08:58→21:36)
[2019-06-09] MEDS: Vitamin D 1000 IU Tab GT SCH (08:58)
--- NOTE | 2019-06-09 08:59 | Hematology/Onc Progress Note ---
Assessment/Plan Assessment/Plan # Anemia of chronic disease due to underlying chronic medical issues, multifactorial v Gi bleed --> Anemia workup has been reviewed, rule out gi bleed --> No evidence of hemolysis is noted, peripheral smear has been reviewed. --> Hgb goal >7. Transfuse prn. --> Epogen or iron at this time is not particularly indicated --> Medications have been reviewed --> low threshold for gi evaluation in case has occult + --> hgb trend: 9.3-->9.7-->8.1-->7.6-->8-->9.4-->9.2->7.5-->9.3-->8-->8.1 --> transf 05/28/19 with 1 unit prbc, 1 unit on 06/03 --> transfusion is a emergency, no family, no poa, is okay to transfuse # Right upper arm extremity axillary vein dvt --> agree to continue eliquis ONCE bleeding resolved --> continue for total of minimum of 3 months --> rescan arm in 3 mo # Thrombocytopenia is due to infection, i.e. cellulitis of upper extremity, likely picc line infection --> as per id on ax --> picc off --> levoflox/vanc-->zosyn/vanc--> zosyn-->dapto/zosyn --> plt trend 208-->132-->146k-->159-->217 # Renal insufficiency --> per Dr. Mera # Pneumonia --> abx per id # Dehydration. --> goal of euvolemia # Paroxysmal Atrial fibrillation with rapid ventricular response was on amiodarone gtt, now in sinus rhythm. --> per cards On PO amiodarone 200 bid, Lopressor 25 bid # Dysphagia with ng tube # Dvt ppx eliquis--> continued The timing of this note does not necessarily reflect the time of the patient was seen. Greatly appreciate consultation. Subjective Cardiovascular: Denies: no symptoms, chest pain, edema, irregular heart rate, lightheadedness, palpitations, syncope, other Respiratory: Denies: no symptoms, cough, shortness of breath, SOB with excertion, SOB at rest, sputum, wheezing, other Gastrointestinal/Abdominal: Denies: no symptoms, abdomen distended, abdominal pain, black stools, tarry stools, blood in stool, constipated, diarrhea, difficulty swallowing, nausea, poor appetite, poor fluid intake, rectal bleeding , vomiting, other Genitourinary: Denies: no symptoms, burning, discharge, frequency, flank pain, hematuria, incontinence, pain, urgency, other Neurologic/Psychiatric: Denies: no symptoms, anxiety, depressed, emotional problems, headache, numbness, paresthesia, pre-existing deficit, seizure, tingling, tremors, weakness, other Allergies: Coded Allergies: No Known Allergies (Unverified , 05/18/19) Subjective 05/24: awake and alert, v mask, labs reviewed, apixaban 05/25: as per gi, ngt and eliquis tolerated 05/26: pending clearance but still with ng and nonrebreather 05/27: hypoxic yesterday, deteriorated, coded, now intubated, icu, labs noted 05/28: icu, levophed gtt, hgb 7.6, repeat cbc 05/29: remains in the icu, given prbc last night, no bleeding 05/30: no events, no bleeding, ++ fredo and on pressor 05/31: intubated, bp better on pressor, no bleeding, coag ordered 06/02: reamins ill appearing, on vent, labs noted, on vent, poorly responsive 06/03: no events, no bleeding, labs noted, dw surgery, and Rn, monitoring plt 06/04: tolerating tube feeds, labs noted, in the icu 06/05: restraints, cxr unchanged, anticoagulants on hold until further notice 06/06: no events, no bleeding, no night sweats, no bleeding 06/08: icu, unable to wean per resp, apixaban restarted, labs reviewed 06/09: minimally responsive, on vent and gt feeds, no bleeding Objective Objective Current Medications Medications (Trade) Dose Ordered Sig/Phillip Route PRN Reason Start Time Stop Time Status Last Admin Dose Admin Acetaminophen (Tylenol) 500 mg Q4H PRN GT Mild Pain/Temp > 100.5 05/27/19 07:45 06/19/19 20:29 06/06/19 13:52 Amiodarone HCl (Cordarone) 200 mg DAILY ORAL 06/07/19 16:15 2/10/20 16:14 06/08/19 08:21 Apixaban (Eliquis) 2.5 mg Q12HR ORAL 06/08/19 21:00 07/08/19 20:59 06/08/19 20:30 Chlorhexidine Gluconate (Reina-Hex 2%) 1 applic DAILY@2000 TOPIC 05/27/19 20:00 06/26/19 19:59 06/08/19 20:22 Daptomycin 500 mg/ Sodium Chloride 55 ml @ 100 mls/hr Q48H IV 05/29/19 13:00 06/11/19 12:59 06/08/19 13:52 Ipratropium Caspian (Atrovent) 500 mcg Q4H PRN HHN Shortness of Breath 06/08/19 10:00 06/13/19 09:59 06/08/19 12:37 Lansoprazole (Prevacid) 30 mg BID NG 06/06/19 18:00 07/06/19 17:59 06/08/19 17:00 Lorazepam (Ativan 2mg/ml 1ml) 1 mg Q4H PRN IV For Anxiety/Agitation 06/08/19 10:00 06/15/19 09:59 06/08/19 13:52 Methylprednisolone Sodium Succinate (Solu-MEDROL) 60 mg EVERY 12 HOURS IVP 06/04/19 21:00 07/04/19 20:59 06/08/19 20:30 Metoprolol Tartrate (Lopressor) 5 mg Q5MIN X 3 IVP 06/07/19 16:15 07/07/19 16:14 06/07/19 17:25 Norepinephrine Bitartrate 4 mg/ Dextrose 250 ml @ 0 mls/hr Q24H IV 05/29/19 19:20 06/28/19 19:19 05/30/19 22:45 Piperacillin Sod/ Tazobactam Sod 2.25 gm/Dextrose 55 ml @ 110 mls/hr Q8HR@0400,1200,2000 IV 06/03/19 12:00 06/10/19 11:59 06/09/19 04:02 Potassium Chloride (K-Dur) 40 meq ONCE ORAL 06/09/19 08:45 06/09/19 09:45 Vitamin D (Vitamin D) 5,000 intlu DAILY GT 06/07/19 13:00 07/07/19 12:59 06/08/19 08:21 Last 24 Hour Vital Signs Date Time Temp Pulse Resp B/P (MAP) Pulse Ox O2 Delivery O2 Flow Rate FiO2 06/09/19 08:00 108 32 149/73 (98) 96 06/09/19 08:00 Mechanical Ventilator 06/09/19 07:35 82 24 45 45 06/09/19 07:00 99.1 73 16 107/46 (66) 96 06/09/19 06:00 67 16 95/53 (67) 97 06/09/19 05:30 95 35 45 06/09/19 05:24 95 16 06/09/19 05:00 93 13 129/62 (84) 95 06/09/19 04:00 Mechanical Ventilator 06/09/19 04:00 45 06/09/19 04:00 97.5 79 15 108/50 (69) 95 06/09/19 03:00 63 16 91/39 (56) 95 06/09/19 02:58 60 18 45 06/09/19 02:00 60 16 90/39 (56) 95 06/09/19 01:30 58 18 45 06/09/19 01:00 63 16 109/48 (68) 95 06/09/19 00:09 67 06/09/19 00:00 45 06/09/19 00:00 Mechanical Ventilator 06/09/19 00:00 98.6 65 106/53 (70) 95 06/08/19 23:14 70 18 45 06/08/19 23:00 56 15 89/39 (56) 15 06/08/19 22:00 57 16 92/41 (58) 96 06/08/19 21:00 64 16 99/42 (61) 97 06/08/19 20:53 73 18 45 06/08/19 20:00 98.7 58 16 102/40 (60) 98 06/08/19 20:00 Mechanical Ventilator 06/08/19 20:00 58 06/08/19 20:00 45 06/08/19 19:30 57 17 45 06/08/19 19:20 98/39 06/08/19 19:00 57 98/39 (58) 99 06/08/19 18:00 57 101/41 (61) 99 06/08/19 17:21 71 18 45 06/08/19 17:00 63 108/49 (68) 99 06/08/19 16:00 57 06/08/19 16:00 45 06/08/19 16:00 Mechanical Ventilator 06/08/19 16:00 98.3 58 106/44 (64) 99 06/08/19 15:29 58 16 45 06/08/19 15:00 74 119/60 (79) 99 06/08/19 14:00 97 118/50 (72) 98 06/08/19 13:00 97 142/79 (100) 98 06/08/19 12:47 95 24 99 Mechanical Ventilator 45 97 24 45 06/08/19 12:00 97.8 97 142/74 (96) 94 06/08/19 12:00 85 06/08/19 12:00 Mechanical Ventilator 06/08/19 12:00 45 06/08/19 11:30 78 19 45 06/08/19 11:00 78 22 151/53 (85) 98 06/08/19 10:00 89 11 161/73 (102) 96 06/08/19 09:00 91 0 154/76 (102) 96 06/08/19 08:40 101 33 45 06/08/19 08:16 87 35 97 Mechanical Ventilator 45 83 34 98 06/08/19 08:00 67 06/08/19 08:00 97.7 91 34 155/72 (99) 98 06/08/19 08:00 Mechanical Ventilator 06/08/19 08:00 45 06/08/19 07:00 86 29 162/83 (109) 97 06/08/19 06:32 81 23 100 Mechanical Ventilator 45 06/08/19 06:32 81 23 45 06/08/19 06:30 64 17 06/08/19 06:00 77 21 141/62 (88) 100 06/08/19 05:10 77 16 50 06/08/19 05:00 65 5 134/49 (77) 100 06/08/19 04:00 94 06/08/19 04:00 50 06/08/19 04:00 98.8 65 7 134/49 (77) 99 06/08/19 04:00 Mechanical Ventilator 06/08/19 03:23 93 32 50 06/08/19 03:18 92 25 169/77 (107) 99 06/08/19 03:00 94 33 171/80 (110) 99 06/08/19 02:00 87 26 161/73 (102) 98 06/08/19 01:08 84 28 50 06/08/19 01:00 79 17 153/63 (93) 98 06/08/19 01:00 79 17 153/63 (93) 98 06/08/19 00:00 86 13 158/72 (100) 98 06/08/19 00:00 50 06/08/19 00:00 77 06/08/19 00:00 Mechanical Ventilator 06/08/19 00:00 98.7 86 13 158/72 (100) 98 06/07/19 23:00 77 26 159/61 (93) 99 06/07/19 22:58 82 28 50 06/07/19 22:00 79 22 155/78 (103) 98 06/07/19 21:15 80 30 50 06/07/19 21:00 75 23 149/66 (93) 100 06/07/19 20:00 50 06/07/19 20:00 75 06/07/19 20:00 Mechanical Ventilator 06/07/19 20:00 98.9 56 16 103/45 (64) 100 06/07/19 19:20 149/66 06/07/19 19:00 76 17 144/59 (87) 100 06/07/19 18:49 73 19 50 06/07/19 18:00 71 18 139/70 (93) 99 06/07/19 17:25 155 148/63 06/07/19 17:02 114 28 50 06/07/19 17:00 110 25 148/63 (91) 98 06/07/19 16:18 168 140/74 06/07/19 16:00 Mechanical Ventilator 06/07/19 16:00 50 06/07/19 16:00 171 06/07/19 16:00 99.3 166 20 140/74 (96) 96 06/07/19 15:50 167 39 50 06/07/19 15:00 89 34 181/98 (125) 92 06/07/19 14:00 86 31 159/73 (101) 95 06/07/19 13:21 97 32 40 06/07/19 13:18 94 06/07/19 13:13 94 38 40 40 06/07/19 13:00 103 32 158/80 (106) 93 06/07/19 12:00 98.7 92 34 170/72 (104) 95 06/07/19 12:00 40 06/07/19 12:00 92 06/07/19 12:00 Mechanical Ventilator 06/07/19 11:30 94 20 40 06/07/19 11:00 82 24 152/56 (88) 95 06/07/19 10:00 96 32 161/88 (112) 94 06/07/19 09:15 90 34 40 06/07/19 09:00 99.2 83 28 154/71 (98) 96 Intake and Output 06/08/19 06/09/19 19:00 07:00 Intake Total 1620 ml 620 ml Output Total 1235 ml 100 ml Balance 385 ml 520 ml Free Water 30 ml IV Total 110 ml 110 ml Tube Feeding 480 ml 480 ml Hemodialysis 1000 ml Other 30 ml Output Urine Total 35 ml 0 ml Stool Total 200 ml 100 ml Hemodialysis UF 1000 ml Labs Test 06/07/19 04:20 06/08/19 05:30 06/09/19 05:10 White Blood Count 11.6 K/UL (4.8-10.8) 12.1 K/UL (4.8-10.8) 10.8 K/UL (4.8-10.8) Red Blood Count 2.77 M/UL (4.70-6.10) 2.64 M/UL (4.70-6.10) 2.85 M/UL (4.70-6.10) Hemoglobin 8.4 G/DL (14.2-18.0) 8.1 G/DL (14.2-18.0) 8.6 G/DL (14.2-18.0) Hematocrit 25.0 % (42.0-52.0) 23.5 % (42.0-52.0) 25.7 % (42.0-52.0) Mean Corpuscular Volume 90 FL (80-99) 89 FL (80-99) 90 FL (80-99) Mean Corpuscular Hemoglobin 30.1 PG (27.0-31.0) 30.8 PG (27.0-31.0) 30.1 PG (27.0-31.0) Mean Corpuscular Hemoglobin Concent 33.4 G/DL (32.0-36.0) 34.5 G/DL (32.0-36.0) 33.3 G/DL (32.0-36.0) Red Cell Distribution Width 15.5 % (11.6-14.8) 15.1 % (11.6-14.8) 15.9 % (11.6-14.8) Platelet Count 226 K/UL (150-450) 217 K/UL (150-450) 211 K/UL (150-450) Mean Platelet Volume 4.7 FL (6.5-10.1) 5.1 FL (6.5-10.1) 5.2 FL (6.5-10.1) Neutrophils (%) (Auto) % (45.0-75.0) % (45.0-75.0) % (45.0-75.0) Lymphocytes (%) (Auto) % (20.0-45.0) % (20.0-45.0) % (20.0-45.0) Monocytes (%) (Auto) % (1.0-10.0) % (1.0-10.0) % (1.0-10.0) Eosinophils (%) (Auto) % (0.0-3.0) % (0.0-3.0) % (0.0-3.0) Basophils (%) (Auto) % (0.0-2.0) % (0.0-2.0) % (0.0-2.0) Differential Total Cells Counted 100 100 Neutrophils % (Manual) 96 % (45-75) 96 % (45-75) Lymphocytes % (Manual) 2 % (20-45) 2 % (20-45) Monocytes % (Manual) 2 % (1-10) 2 % (1-10) Eosinophils % (Manual) 0 % (0-3) 0 % (0-3) Basophils % (Manual) 0 % (0-2) 0 % (0-2) Band Neutrophils 0 % (0-8) 0 % (0-8) Platelet Estimate Adequate Adequate Platelet Morphology Normal Normal Sodium Level 137 MMOL/L (136-145) 136 MMOL/L (136-145) 141 MMOL/L (136-145) Potassium Level 3.3 MMOL/L (3.5-5.1) 3.7 MMOL/L (3.5-5.1) 3.4 MMOL/L (3.5-5.1) Chloride Level 103 MMOL/L (98-107) 103 MMOL/L (98-107) 106 MMOL/L (98-107) Carbon Dioxide Level 24 MMOL/L (21-32) 21 MMOL/L (21-32) 25 MMOL/L (21-32) Anion Gap 10 mmol/L (5-15) 12 mmol/L (5-15) 10 mmol/L (5-15) Blood Urea Nitrogen 78 mg/dL (7-18) 91 mg/dL (7-18) 73 mg/dL (7-18) Creatinine 5.4 MG/DL (0.55-1.30) 5.9 MG/DL (0.55-1.30) 4.8 MG/DL (0.55-1.30) Estimat Glomerular Filtration Rate mL/min (>60) mL/min (>60) mL/min (>60) Glucose Level 240 MG/DL (74-106) 168 MG/DL (74-106) 191 MG/DL (74-106) Uric Acid 5.6 MG/DL (2.6-7.2) 6.2 MG/DL (2.6-7.2) 5.7 MG/DL (2.6-7.2) Calcium Level 6.8 MG/DL (8.5-10.1) 7.0 MG/DL (8.5-10.1) 7.3 MG/DL (8.5-10.1) Phosphorus Level 3.9 MG/DL (2.5-4.9) 4.6 MG/DL (2.5-4.9) 4.0 MG/DL (2.5-4.9) Magnesium Level 2.2 MG/DL (1.8-2.4) 2.2 MG/DL (1.8-2.4) 2.3 MG/DL (1.8-2.4) Total Bilirubin 0.3 MG/DL (0.2-1.0) 0.3 MG/DL (0.2-1.0) 0.3 MG/DL (0.2-1.0) Aspartate Amino Transf (AST/SGOT) 31 U/L (15-37) 29 U/L (15-37) 29 U/L (15-37) Alanine Aminotransferase (ALT/SGPT) 26 U/L (12-78) 26 U/L (12-78) 29 U/L (12-78) Alkaline Phosphatase 60 U/L (46-116) 57 U/L (46-116) 57 U/L (46-116) C-Reactive Protein, Quantitative 1.8 mg/dL (0.00-0.90) 1.1 mg/dL (0.00-0.90) 0.7 mg/dL (0.00-0.90) Pro-B-Type Natriuretic Peptide 9495 pg/mL (0-125) 03593 pg/mL (0-125) 9053 pg/mL (0-125) Total Protein 5.2 G/DL (6.4-8.2) 4.8 G/DL (6.4-8.2) 5.0 G/DL (6.4-8.2) Albumin 1.6 G/DL (3.4-5.0) 1.6 G/DL (3.4-5.0) 1.6 G/DL (3.4-5.0) Globulin 3.6 g/dL 3.2 g/dL 3.4 g/dL Albumin/Globulin Ratio 0.4 (1.0-2.7) 0.5 (1.0-2.7) 0.5 (1.0-2.7) Random Vancomycin Level 16.7 ug/mL 15.5 ug/mL Anisocytosis 1+ Height (Feet): 5 Height (Inches): 7.00 Weight (Pounds): 205 Objective PE: Vitals: reviewed General Appearance: NAD HEENT: normocephalic, atraumatic++ ngt Neck: non-tender, normal alignment Respiratory/Chest: VENT++ Cardiovascular/Chest: normal peripheral pulses, normal rate Abdomen: normal bowel sounds, soft, nontender Extremities: normal range of motion ++ right arm swelling Suleman Addison MD Jun 09, 2019 08:59
--- NOTE | 2019-06-09 09:46 | General Progress Note ---
Assessment/Plan Problem List: (1) Dysphagia ICD Codes: R13.10 - Dysphagia, unspecified SNOMED: 63928655, 389281748 (2) Anemia ICD Codes: D64.9 - Anemia, unspecified SNOMED: 079211457 (3) Hypothyroidism ICD Codes: E03.9 - Hypothyroidism, unspecified SNOMED: 29319169 (4) Thrombus ICD Codes: I82.90 - Acute embolism and thrombosis of unspecified vein SNOMED: 59738849, 55054663, 426334963, 533806822 (5) A-fib ICD Codes: I48.91 - Unspecified atrial fibrillation SNOMED: 46664002 Status: progressing, unchanged Assessment/Plan: intubated in ICU NGTF fu pulm fu labs abx per ID on HD poor prognosis s/p one unit PRBC PEG if needed Subjective ROS Limited/Unobtainable: No Allergies: Coded Allergies: No Known Allergies (Unverified , 05/18/19) Subjective coded today Objective Last 24 Hour Vital Signs Date Time Temp Pulse Resp B/P (MAP) Pulse Ox O2 Delivery O2 Flow Rate FiO2 06/09/19 09:22 88 18 45 06/09/19 09:00 92 21 117/63 (81) 97 06/09/19 08:00 94 06/09/19 08:00 108 32 149/73 (98) 96 06/09/19 08:00 Mechanical Ventilator 06/09/19 07:35 82 24 45 45 06/09/19 07:00 99.1 73 16 107/46 (66) 96 06/09/19 06:00 67 16 95/53 (67) 97 06/09/19 05:30 95 35 45 06/09/19 05:24 95 16 06/09/19 05:00 93 13 129/62 (84) 95 06/09/19 04:00 Mechanical Ventilator 06/09/19 04:00 45 06/09/19 04:00 97.5 79 15 108/50 (69) 95 06/09/19 03:00 63 16 91/39 (56) 95 06/09/19 02:58 60 18 45 06/09/19 02:00 60 16 90/39 (56) 95 06/09/19 01:30 58 18 45 06/09/19 01:00 63 16 109/48 (68) 95 06/09/19 00:09 67 06/09/19 00:00 45 06/09/19 00:00 Mechanical Ventilator 06/09/19 00:00 98.6 65 106/53 (70) 95 06/08/19 23:14 70 18 45 06/08/19 23:00 56 15 89/39 (56) 15 06/08/19 22:00 57 16 92/41 (58) 96 06/08/19 21:00 64 16 99/42 (61) 97 06/08/19 20:53 73 18 45 06/08/19 20:00 98.7 58 16 102/40 (60) 98 06/08/19 20:00 Mechanical Ventilator 06/08/19 20:00 58 06/08/19 20:00 45 06/08/19 19:30 57 17 45 06/08/19 19:20 98/39 06/08/19 19:00 57 98/39 (58) 99 06/08/19 18:00 57 101/41 (61) 99 06/08/19 17:21 71 18 45 06/08/19 17:00 63 108/49 (68) 99 06/08/19 16:00 57 06/08/19 16:00 45 06/08/19 16:00 Mechanical Ventilator 06/08/19 16:00 98.3 58 106/44 (64) 99 06/08/19 15:29 58 16 45 06/08/19 15:00 74 119/60 (79) 99 06/08/19 14:00 97 118/50 (72) 98 06/08/19 13:00 97 142/79 (100) 98 06/08/19 12:47 95 24 99 Mechanical Ventilator 45 97 24 45 06/08/19 12:00 97.8 97 142/74 (96) 94 06/08/19 12:00 85 06/08/19 12:00 Mechanical Ventilator 06/08/19 12:00 45 06/08/19 11:30 78 19 45 06/08/19 11:00 78 22 151/53 (85) 98 06/08/19 10:00 89 11 161/73 (102) 96 Intake and Output 06/08/19 06/09/19 19:00 07:00 Intake Total 1620 ml 620 ml Output Total 1235 ml 100 ml Balance 385 ml 520 ml Free Water 30 ml IV Total 110 ml 110 ml Tube Feeding 480 ml 480 ml Hemodialysis 1000 ml Other 30 ml Output Urine Total 35 ml 0 ml Stool Total 200 ml 100 ml Hemodialysis UF 1000 ml Laboratory Tests 06/09/19 05:10: White Blood Count 10.8, Red Blood Count 2.85L, Hemoglobin 8.6L, Hematocrit 25.7L , Mean Corpuscular Volume 90, Mean Corpuscular Hemoglobin 30.1, Mean Corpuscular Hemoglobin Concent 33.3, Red Cell Distribution Width 15.9H, Platelet Count 211, Mean Platelet Volume 5.2L, Neutrophils (%) (Auto) , Lymphocytes (%) (Auto) , Monocytes (%) (Auto) , Eosinophils (%) (Auto) , Basophils (%) (Auto) , Neutrophils % (Manual) [Pending], Lymphocytes % (Manual) [Pending], Platelet Estimate [Pending], Platelet Morphology [Pending], Sodium Level 141, Potassium Level 3.4L, Chloride Level 106, Carbon Dioxide Level 25, Anion Gap 10, Blood Urea Nitrogen 73H, Creatinine 4.8H, Estimat Glomerular Filtration Rate , Glucose Level 191H, Uric Acid 5.7, Calcium Level 7.3L, Phosphorus Level 4.0, Magnesium Level 2.3, Total Bilirubin 0.3, Aspartate Amino Transf (AST/SGOT) 29, Alanine Aminotransferase (ALT/SGPT) 29, Alkaline Phosphatase 57, C-Reactive Protein, Quantitative 0.7, Pro-B-Type Natriuretic Peptide 9053H, Total Protein 5.0L, Albumin 1.6L, Globulin 3.4, Albumin/Globulin Ratio 0.5L Height (Feet): 5 Height (Inches): 7.00 Weight (Pounds): 205 General Appearance: lethargic EENT: normal ENT inspection Neck: supple Cardiovascular: normal rate Respiratory/Chest: decreased breath sounds Abdomen: normal bowel sounds, non tender, soft Extremities: non-tender Valentino Lino MD Jun 09, 2019 09:46
--- NOTE | 2019-06-09 10:13 | Infectious Diseases Prog Note ---
Assessment/Plan Assessment/Plan 84 yo male with PMHx of HTN who was sent to the ED on 05/18/19 from his custodial for possible picc line infection. Swelling around PICC line Minimal to no erythema and no purulent drainage Not likely to be infected Blood Cx 05/18/19 - NGTD PICC Tip Cx 05/18/19 - NGTD PICC line removed 05/18/19 Leukocytosis, SP No fever OM - Let foot On Vancomycin at nursing End date early May PNA on 8L NC CXR - Some LLL Atelectasis vs PNA, Nodules CT 05/20/19 - Bilateral upper lobe infiltrates worse on the right. Consider pneumonia. Bilateral pleural effusions moderate in size Sp Cx Marily HTN PLAN - Continue Daptomycin for OM End date per custodial MD weekly CPK - Continue Zosyn #14/14 for probable PNA - 05/28/19 SP Vancomycin per pharmacy - Stopped for increasing Cr - 05/27/19 SP Levofloxacin #5 - Get OSH records for OM - Monitor CBC and Temps Thank you for this consult. [facility] will continue to follow the patient with you during this hospitalization. Subjective Allergies: Coded Allergies: No Known Allergies (Unverified , 05/18/19) Subjective afebrile leukocytosis resolved off pressors Objective Vital Signs Last 24 Hour Vital Signs Date Time Temp Pulse Resp B/P (MAP) Pulse Ox O2 Delivery O2 Flow Rate FiO2 06/09/19 09:22 88 18 45 06/09/19 09:00 92 21 117/63 (81) 97 06/09/19 08:00 94 06/09/19 08:00 108 32 149/73 (98) 96 06/09/19 08:00 Mechanical Ventilator 06/09/19 07:35 82 24 45 45 06/09/19 07:00 99.1 73 16 107/46 (66) 96 06/09/19 06:00 67 16 95/53 (67) 97 06/09/19 05:30 95 35 45 06/09/19 05:24 95 16 06/09/19 05:00 93 13 129/62 (84) 95 06/09/19 04:00 Mechanical Ventilator 06/09/19 04:00 45 06/09/19 04:00 97.5 79 15 108/50 (69) 95 06/09/19 03:00 63 16 91/39 (56) 95 06/09/19 02:58 60 18 45 06/09/19 02:00 60 16 90/39 (56) 95 06/09/19 01:30 58 18 45 06/09/19 01:00 63 16 109/48 (68) 95 06/09/19 00:09 67 06/09/19 00:00 45 06/09/19 00:00 Mechanical Ventilator 06/09/19 00:00 98.6 65 106/53 (70) 95 06/08/19 23:14 70 18 45 06/08/19 23:00 56 15 89/39 (56) 15 06/08/19 22:00 57 16 92/41 (58) 96 06/08/19 21:00 64 16 99/42 (61) 97 06/08/19 20:53 73 18 45 06/08/19 20:00 98.7 58 16 102/40 (60) 98 06/08/19 20:00 Mechanical Ventilator 06/08/19 20:00 58 06/08/19 20:00 45 06/08/19 19:30 57 17 45 06/08/19 19:20 98/39 06/08/19 19:00 57 98/39 (58) 99 06/08/19 18:00 57 101/41 (61) 99 06/08/19 17:21 71 18 45 06/08/19 17:00 63 108/49 (68) 99 06/08/19 16:00 57 06/08/19 16:00 45 06/08/19 16:00 Mechanical Ventilator 06/08/19 16:00 98.3 58 106/44 (64) 99 06/08/19 15:29 58 16 45 06/08/19 15:00 74 119/60 (79) 99 06/08/19 14:00 97 118/50 (72) 98 06/08/19 13:00 97 142/79 (100) 98 06/08/19 12:47 95 24 99 Mechanical Ventilator 45 97 24 45 06/08/19 12:00 97.8 97 142/74 (96) 94 06/08/19 12:00 85 06/08/19 12:00 Mechanical Ventilator 06/08/19 12:00 45 06/08/19 11:30 78 19 45 06/08/19 11:00 78 22 151/53 (85) 98 Height (Feet): 5 Height (Inches): 7.00 Weight (Pounds): 205 Objective General Appearance: no apparent distress, lethargic Cardiovascular: normal rate Respiratory/Chest: decreased breath sounds Abdomen: distended Microbiology Date/Time Source Procedure Growth Status 06/07/19 16:45 Stool Clostridium difficile Toxin Assay - Final Complete Laboratory Tests Test 06/09/19 05:10 White Blood Count 10.8 K/UL (4.8-10.8) Red Blood Count 2.85 M/UL (4.70-6.10) L Hemoglobin 8.6 G/DL (14.2-18.0) L Hematocrit 25.7 % (42.0-52.0) L Mean Corpuscular Volume 90 FL (80-99) Mean Corpuscular Hemoglobin 30.1 PG (27.0-31.0) Mean Corpuscular Hemoglobin Concent 33.3 G/DL (32.0-36.0) Red Cell Distribution Width 15.9 % (11.6-14.8) H Platelet Count 211 K/UL (150-450) Mean Platelet Volume 5.2 FL (6.5-10.1) L Neutrophils (%) (Auto) % (45.0-75.0) Lymphocytes (%) (Auto) % (20.0-45.0) Monocytes (%) (Auto) % (1.0-10.0) Eosinophils (%) (Auto) % (0.0-3.0) Basophils (%) (Auto) % (0.0-2.0) Neutrophils % (Manual) Pending Lymphocytes % (Manual) Pending Platelet Estimate Pending Platelet Morphology Pending Sodium Level 141 MMOL/L (136-145) Potassium Level 3.4 MMOL/L (3.5-5.1) L Chloride Level 106 MMOL/L (98-107) Carbon Dioxide Level 25 MMOL/L (21-32) Anion Gap 10 mmol/L (5-15) Blood Urea Nitrogen 73 mg/dL (7-18) H Creatinine 4.8 MG/DL (0.55-1.30) H Estimat Glomerular Filtration Rate mL/min (>60) Glucose Level 191 MG/DL (74-106) H Uric Acid 5.7 MG/DL (2.6-7.2) Calcium Level 7.3 MG/DL (8.5-10.1) L Phosphorus Level 4.0 MG/DL (2.5-4.9) Magnesium Level 2.3 MG/DL (1.8-2.4) Total Bilirubin 0.3 MG/DL (0.2-1.0) Aspartate Amino Transf (AST/SGOT) 29 U/L (15-37) Alanine Aminotransferase (ALT/SGPT) 29 U/L (12-78) Alkaline Phosphatase 57 U/L (46-116) C-Reactive Protein, Quantitative 0.7 mg/dL (0.00-0.90) Pro-B-Type Natriuretic Peptide 9053 pg/mL (0-125) H Total Protein 5.0 G/DL (6.4-8.2) L Albumin 1.6 G/DL (3.4-5.0) L Globulin 3.4 g/dL Albumin/Globulin Ratio 0.5 (1.0-2.7) L Current Medications Medications (Trade) Dose Ordered Sig/Phillip Route PRN Reason Start Time Stop Time Status Last Admin Dose Admin Acetaminophen (Tylenol) 500 mg Q4H PRN GT Mild Pain/Temp > 100.5 05/27/19 07:45 06/19/19 20:29 06/06/19 13:52 Amiodarone HCl (Cordarone) 200 mg DAILY ORAL 06/07/19 16:15 07/07/19 16:14 06/09/19 08:58 Apixaban (Eliquis) 2.5 mg Q12HR ORAL 06/08/19 21:00 07/08/19 20:59 06/09/19 08:58 Chlorhexidine Gluconate (Reina-Hex 2%) 1 applic DAILY@2000 TOPIC 05/27/19 20:00 06/26/19 19:59 06/08/19 20:22 Daptomycin 500 mg/ Sodium Chloride 55 ml @ 100 mls/hr Q48H IV 05/29/19 13:00 06/11/19 12:59 06/08/19 13:52 Ipratropium [place] (Atrovent) 500 mcg Q4H PRN HHN Shortness of Breath 06/08/19 10:00 06/13/19 09:59 06/08/19 12:37 Lansoprazole (Prevacid) 30 mg BID NG 06/06/19 18:00 07/06/19 17:59 06/09/19 08:58 Lorazepam (Ativan 2mg/ml 1ml) 1 mg Q4H PRN IV For Anxiety/Agitation 06/08/19 10:00 06/15/19 09:59 06/08/19 13:52 Methylprednisolone Sodium Succinate (Solu-MEDROL) 60 mg EVERY 12 HOURS IVP 06/04/19 21:00 07/04/19 20:59 06/09/19 08:57 Metoprolol Tartrate (Lopressor) 5 mg Q5MIN X 3 IVP 06/07/19 16:15 07/07/19 16:14 06/07/19 17:25 Norepinephrine Bitartrate 4 mg/ Dextrose 250 ml @ 0 mls/hr Q24H IV 05/29/19 19:20 06/28/19 19:19 05/30/19 22:45 Piperacillin Sod/ Tazobactam Sod 2.25 gm/Dextrose 55 ml @ 110 mls/hr Q8HR@0400,1200,2000 IV 06/03/19 12:00 06/10/19 11:59 06/09/19 04:02 Vitamin D (Vitamin D) 5,000 intlu DAILY GT 06/07/19 13:00 07/07/19 12:59 06/09/19 08:58 Latha Lowe M.D. Jun 09, 2019 10:13
--- NOTE | 2019-06-09 12:28 | Nephrology Progress Note ---
Assessment/Plan Problem List: (1) Renal failure (ARF), acute on chronic Assessment: Cr rising (2) Cellulitis of upper extremity (3) A-fib (4) Pneumonia (5) UTI (urinary tract infection) (6) Anemia Assessment: worsened (7) Hypothyroidism Assessment - KIMO on CKD - Urinary tract infection. - Anemia- - Dehydration. - Cellulitis of Upper extremity - HTN Plan dialysis 06/07 cancelled due to tachycardia- on dialysis now 06/08- next 06/10 dialysis done 06/02 - repeat 06/04 and then 06/07 DC Midodrine DC IV IV Calcium and PO Vit D Transfuse one unit PRBcs in ICU- intubated BP meds and Mind altering meds discontinued On midodrine check vanco levels - hold vanco doses previously: Per cardiology Anemia kumari- Avoid Nephrotoxics Per ID Allow CHANDA inhibitor to continue as long as renal function does not worsen. PICC line has been removed. CXR: Increased right pleural effusion and similar left pleural effusion. Increased interstitial and hazy opacities throughout the lungs. Subjective ROS Limited/Unobtainable: Yes Objective Objective Last 24 Hour Vital Signs Date Time Temp Pulse Resp B/P (MAP) Pulse Ox O2 Delivery O2 Flow Rate FiO2 06/09/19 11:16 87 28 45 06/09/19 09:22 88 18 45 06/09/19 09:00 92 21 117/63 (81) 97 06/09/19 08:00 94 06/09/19 08:00 108 32 149/73 (98) 96 06/09/19 08:00 Mechanical Ventilator 06/09/19 07:35 82 24 45 45 06/09/19 07:00 99.1 73 16 107/46 (66) 96 06/09/19 06:00 67 16 95/53 (67) 97 06/09/19 05:30 95 35 45 06/09/19 05:24 95 16 06/09/19 05:00 93 13 129/62 (84) 95 06/09/19 04:00 Mechanical Ventilator 06/09/19 04:00 45 06/09/19 04:00 97.5 79 15 108/50 (69) 95 06/09/19 03:00 63 16 91/39 (56) 95 06/09/19 02:58 60 18 45 06/09/19 02:00 60 16 90/39 (56) 95 06/09/19 01:30 58 18 45 06/09/19 01:00 63 16 109/48 (68) 95 06/09/19 00:09 67 06/09/19 00:00 45 06/09/19 00:00 Mechanical Ventilator 06/09/19 00:00 98.6 65 106/53 (70) 95 06/08/19 23:14 70 18 45 06/08/19 23:00 56 15 89/39 (56) 15 06/08/19 22:00 57 16 92/41 (58) 96 06/08/19 21:00 64 16 99/42 (61) 97 06/08/19 20:53 73 18 45 06/08/19 20:00 98.7 58 16 102/40 (60) 98 06/08/19 20:00 Mechanical Ventilator 06/08/19 20:00 58 06/08/19 20:00 45 06/08/19 19:30 57 17 45 06/08/19 19:20 98/39 06/08/19 19:00 57 98/39 (58) 99 06/08/19 18:00 57 101/41 (61) 99 06/08/19 17:21 71 18 45 06/08/19 17:00 63 108/49 (68) 99 06/08/19 16:00 57 06/08/19 16:00 45 06/08/19 16:00 Mechanical Ventilator 06/08/19 16:00 98.3 58 106/44 (64) 99 06/08/19 15:29 58 16 45 06/08/19 15:00 74 119/60 (79) 99 06/08/19 14:00 97 118/50 (72) 98 06/08/19 13:00 97 142/79 (100) 98 06/08/19 12:47 95 24 99 Mechanical Ventilator 45 97 24 45 Intake and Output 06/08/19 06/09/19 19:00 07:00 Intake Total 1620 ml 620 ml Output Total 1235 ml 100 ml Balance 385 ml 520 ml Free Water 30 ml IV Total 110 ml 110 ml Tube Feeding 480 ml 480 ml Hemodialysis 1000 ml Other 30 ml Output Urine Total 35 ml 0 ml Stool Total 200 ml 100 ml Hemodialysis UF 1000 ml Laboratory Tests 06/09/19 05:10: White Blood Count 10.8, Red Blood Count 2.85L, Hemoglobin 8.6L, Hematocrit 25.7L , Mean Corpuscular Volume 90, Mean Corpuscular Hemoglobin 30.1, Mean Corpuscular Hemoglobin Concent 33.3, Red Cell Distribution Width 15.9H, Platelet Count 211, Mean Platelet Volume 5.2L, Neutrophils (%) (Auto) , Lymphocytes (%) (Auto) , Monocytes (%) (Auto) , Eosinophils (%) (Auto) , Basophils (%) (Auto) , Differential Total Cells Counted 100, Neutrophils % ( Manual) 94H, Lymphocytes % (Manual) 2L, Monocytes % (Manual) 4, Eosinophils % ( Manual) 0, Basophils % (Manual) 0, Band Neutrophils 0, Platelet Estimate Adequate, Platelet Morphology Normal, Sodium Level 141, Potassium Level 3.4L, Chloride Level 106, Carbon Dioxide Level 25, Anion Gap 10, Blood Urea Nitrogen 73H, Creatinine 4.8H, Estimat Glomerular Filtration Rate , Glucose Level 191H, Uric Acid 5.7, Calcium Level 7.3L, Phosphorus Level 4.0, Magnesium Level 2.3, Total Bilirubin 0.3, Aspartate Amino Transf (AST/SGOT) 29, Alanine Aminotransferase (ALT/SGPT) 29, Alkaline Phosphatase 57, C-Reactive Protein, Quantitative 0.7, Pro-B-Type Natriuretic Peptide 9053H, Total Protein 5.0L, Albumin 1.6L, Globulin 3.4, Albumin/Globulin Ratio 0.5L Height (Feet): 5 Height (Inches): 7.00 Weight (Pounds): 205 EENT: other - vented Cardiovascular: tachycardia Respiratory/Chest: decreased breath sounds Abdomen: distended Objective no change Reinier Mera MD Jun 09, 2019 12:27
--- NOTE | 2019-06-09 15:21 | Surgery Progress Note ---
Surgery Progress Note Subjective Additional Comments labs noted exam unchanged may need trach Objective Last 24 Hour Vital Signs Date Time Temp Pulse Resp B/P (MAP) Pulse Ox O2 Delivery O2 Flow Rate FiO2 06/09/19 14:00 90 25 165/79 (107) 98 06/09/19 13:27 98 29 45 06/09/19 13:00 101 21 153/75 (101) 96 06/09/19 12:00 99.5 68 6 137/76 (96) 96 06/09/19 12:00 45 06/09/19 12:00 Mechanical Ventilator 06/09/19 11:16 87 28 45 06/09/19 11:00 71 14 117/49 (71) 96 06/09/19 10:00 65 16 122/70 (87) 98 06/09/19 09:22 88 18 45 06/09/19 09:00 92 21 117/63 (81) 97 06/09/19 08:00 94 06/09/19 08:00 108 32 149/73 (98) 96 06/09/19 08:00 Mechanical Ventilator 06/09/19 07:35 82 24 45 45 06/09/19 07:30 45 06/09/19 07:00 99.1 73 16 107/46 (66) 96 06/09/19 06:00 67 16 95/53 (67) 97 06/09/19 05:30 95 35 45 06/09/19 05:24 95 16 06/09/19 05:00 93 13 129/62 (84) 95 06/09/19 04:00 Mechanical Ventilator 06/09/19 04:00 45 06/09/19 04:00 97.5 79 15 108/50 (69) 95 06/09/19 03:00 63 16 91/39 (56) 95 06/09/19 02:58 60 18 45 06/09/19 02:00 60 16 90/39 (56) 95 06/09/19 01:30 58 18 45 06/09/19 01:00 63 16 109/48 (68) 95 06/09/19 00:09 67 06/09/19 00:00 45 06/09/19 00:00 Mechanical Ventilator 06/09/19 00:00 98.6 65 106/53 (70) 95 06/08/19 23:14 70 18 45 06/08/19 23:00 56 15 89/39 (56) 15 06/08/19 22:00 57 16 92/41 (58) 96 06/08/19 21:00 64 16 99/42 (61) 97 06/08/19 20:53 73 18 45 06/08/19 20:00 98.7 58 16 102/40 (60) 98 06/08/19 20:00 Mechanical Ventilator 06/08/19 20:00 58 06/08/19 20:00 45 06/08/19 19:30 57 17 45 06/08/19 19:20 98/39 06/08/19 19:00 57 98/39 (58) 99 06/08/19 18:00 57 101/41 (61) 99 06/08/19 17:21 71 18 45 06/08/19 17:00 63 108/49 (68) 99 06/08/19 16:00 57 06/08/19 16:00 45 06/08/19 16:00 Mechanical Ventilator 06/08/19 16:00 98.3 58 106/44 (64) 99 06/08/19 15:29 58 16 45 I&O Intake and Output 06/08/19 06/09/19 19:00 07:00 Intake Total 1620 ml 620 ml Output Total 1235 ml 100 ml Balance 385 ml 520 ml Free Water 30 ml IV Total 110 ml 110 ml Tube Feeding 480 ml 480 ml Hemodialysis 1000 ml Other 30 ml Output Urine Total 35 ml 0 ml Stool Total 200 ml 100 ml Hemodialysis UF 1000 ml Dressing: saturated Cardiovascular: RSR Respiratory: clear Abdomen: soft, non-tender, present bowel sounds Extremities: no cyanosis, other Laboratory Tests Test 06/09/19 05:10 White Blood Count 10.8 K/UL (4.8-10.8) Red Blood Count 2.85 M/UL (4.70-6.10) L Hemoglobin 8.6 G/DL (14.2-18.0) L Hematocrit 25.7 % (42.0-52.0) L Mean Corpuscular Volume 90 FL (80-99) Mean Corpuscular Hemoglobin 30.1 PG (27.0-31.0) Mean Corpuscular Hemoglobin Concent 33.3 G/DL (32.0-36.0) Red Cell Distribution Width 15.9 % (11.6-14.8) H Platelet Count 211 K/UL (150-450) Mean Platelet Volume 5.2 FL (6.5-10.1) L Neutrophils (%) (Auto) % (45.0-75.0) Lymphocytes (%) (Auto) % (20.0-45.0) Monocytes (%) (Auto) % (1.0-10.0) Eosinophils (%) (Auto) % (0.0-3.0) Basophils (%) (Auto) % (0.0-2.0) Differential Total Cells Counted 100 Neutrophils % (Manual) 94 % (45-75) H Lymphocytes % (Manual) 2 % (20-45) L Monocytes % (Manual) 4 % (1-10) Eosinophils % (Manual) 0 % (0-3) Basophils % (Manual) 0 % (0-2) Band Neutrophils 0 % (0-8) Platelet Estimate Adequate Platelet Morphology Normal Sodium Level 141 MMOL/L (136-145) Potassium Level 3.4 MMOL/L (3.5-5.1) L Chloride Level 106 MMOL/L (98-107) Carbon Dioxide Level 25 MMOL/L (21-32) Anion Gap 10 mmol/L (5-15) Blood Urea Nitrogen 73 mg/dL (7-18) H Creatinine 4.8 MG/DL (0.55-1.30) H Estimat Glomerular Filtration Rate mL/min (>60) Glucose Level 191 MG/DL (74-106) H Uric Acid 5.7 MG/DL (2.6-7.2) Calcium Level 7.3 MG/DL (8.5-10.1) L Phosphorus Level 4.0 MG/DL (2.5-4.9) Magnesium Level 2.3 MG/DL (1.8-2.4) Total Bilirubin 0.3 MG/DL (0.2-1.0) Aspartate Amino Transf (AST/SGOT) 29 U/L (15-37) Alanine Aminotransferase (ALT/SGPT) 29 U/L (12-78) Alkaline Phosphatase 57 U/L (46-116) C-Reactive Protein, Quantitative 0.7 mg/dL (0.00-0.90) Pro-B-Type Natriuretic Peptide 9053 pg/mL (0-125) H Total Protein 5.0 G/DL (6.4-8.2) L Albumin 1.6 G/DL (3.4-5.0) L Globulin 3.4 g/dL Albumin/Globulin Ratio 0.5 (1.0-2.7) L Plan Problems: (1) Cellulitis of upper extremity Assessment & Plan: 84M with RUE cellulitis, edema, erythema. no drainage. has RUE picc line recommend removal of picc. removed at bedside by myself on 05/18. pressure held, hemostasis noted, dressings applied. cath tip sent for cultures DVT duplex studies with acute thrombus IV Abx as per ID UA pending Cx results keep RUE elevated on pillows okay for diet AM labs anticoagulation off load pressure for dti noted cellulitis and edema improved deteriorated intubated on vent support likely respiratory insufficiency labs ordered wean vent okay for tube feeds via ng - cont as tolerated wean vent am labs HD as per renal now with right IJ Temp HD cath will follow with recs thank you (2) Cellulitis Assessment & Plan: Pt presented on admission with reabsorbing blister lateral R heel. Base of injury indurated with delineated margins(L)4cm x (W)3cm.Non- blanching erythema Sacrum ,R and L buttocks(L)8.5cm x (W)9cm, with a partial thickness pressure injury noted to L buttocks. Base of wound is moist and viable (L)2.3cm x (W)3cm. Area around wound tender when minimally palpated. Pt noted to be wearing splint L foot. Per pt he fractured foot a few weeks ago. Splint removed to assess skin integrity. L heel and malleoli are pink and blanchable.Cavilon Skin Barrier applied to L heel and malleoli and each area covered with Optifoam drsg. Splint reapplied. No other skin concerns noted. unchanged Partial Thickness pressure injury L buttocks resolved . Non-blanching erythema without induration noted to Sacrum,R and L buttocks. (L)8cm x (W)9cm. Scrotum is grossly enlarged and is erythematous and macerated. Penile shaft is grossly swollen .Pt noted to have a partially opened blood blister with 25% biofilm at base of shaft of penis.(L)4.5cm x (W)2.5cm. Bilat groin, medial /posterior aspects of both upper thighs are erythematous and denuded. R lower ext edematous. R heel blister reabsorbed. Non--blanching erythema without induration noted to R heel. Splint removed from L foot. Optifoam drsgs removed from malleoli and heel. Pt noted to have developed several DTPI's despite having Optifoam drsgs. DTPI noted to L achilles . Base of wound is purple and fluctuant (L)0.6cm x (W) 2.7cm.DTPI noted to medial L malleolus(L)0.2cm x (W)0.3cm.Base of wound is purple with marginal erythema. DTPI noted to dorsal L foot. Base of wound is purple with marginal erythema along borders (L)0.9cm x (W)0.5cm.L heel is boggy with non-blanching erythema. Cavilon Skin Barrier applied to affected areas on L foot . Dorsal L foot ,Achilles .R and L malleoli and L heel each covered with Optifoam drsg. Non-blanching erythema without induration noted to lateral L tibia. At plantar aspect of L hallux small dry eschar noted. No erythema or fluctuance periwound. (L)0.5cm x (W)0.4cm. IN addition to Optifoam drsgs placed over each bony prominence of L foot ABD pads placed over dorsal and plantar L foot , Abd pads aligned along L tibia. Splint realigned to L foot Wrapped loosely with Kerlix then wrapped loosely with [place] wrap. L foot floated off mattress with pillow. Tx.Plan: Apply Cavilon to Dorsal L foot. L achilles .Medial/Lateral Malleoli L Foot and L heel. Cover each site with Optifoam drsg. Change every 7 days and prn. Apply Cavilon Plantar L foot. Cover with Optifoam drsg. Change every 7 days and prn. Apply Moisture Barrier Paste to sacrum. Cover with Optifoam drsg. Changee very 7 days and prn. Apply Cavilon Skin Barrier to Both heels. Cover each heel with Optifoam drsg. Change every 7 days and prn. Cleanse wound Shaft of penis with saline. Apply Moisture Barrier Paste Daily and prn. Apply Moisture Barrier Paste to Bilat groin, Scrotum, Medial/Posterior aspects of both upper thighs with each perineal care. Reposition at least every 2hours or as tolerated. Off-load heels with pillows. APM/LA L Mattress overlay. Bennett Logan Jun 09, 2019 15:20
[2019-06-09] MEDS: Metoprolol Tartrate 5mg/5ml Inj IVP SCH (15:30)
--- NOTE | 2019-06-09 17:29 | Pulmonology Progress Note ---
Assessment/Plan Assessment/Plan IMPRESSION AND PLAN: 1. Pneumonia. Bilateral upper lobe. 2. Cellulitis. 3. History of COPD. 4. Hypertension. 5. Afib with RVR; rate controlled 6. Respiratory failure; on vent DISCUSSION: 1. Intubated; on AC mode; May need to be trached 2. Agree with present management and care. 3. Continue medications and HHN with atrovent only 4. Check stool for C diff 5. status post hemodialysis yesterday Arsen Whittaker M.D. Subjective Interval Events: continues to do poorly. Hemodialysis done yesterday Constitutional: Reports: no symptoms HEENT: Repors: no symptoms Respiratory: Reports: no symptoms Cardiovascular: Reports: no symptoms Gastrointestinal/Abdominal: Reports: no symptoms Genitourinary: Reports: no symptoms Allergies: Coded Allergies: No Known Allergies (Unverified , 05/18/19) Objective Last 24 Hour Vital Signs Date Time Temp Pulse Resp B/P (MAP) Pulse Ox O2 Delivery O2 Flow Rate FiO2 06/09/19 17:18 86 27 45 06/09/19 17:00 87 16 171/75 (107) 98 06/09/19 16:00 Mechanical Ventilator 06/09/19 16:00 45 06/09/19 16:00 99.8 84 10 145/61 (89) 96 06/09/19 15:40 80 06/09/19 15:30 167 155/94 06/09/19 15:27 170 22 45 06/09/19 15:20 169 06/09/19 15:00 104 31 143/80 (101) 95 06/09/19 14:00 90 25 165/79 (107) 98 06/09/19 13:27 98 29 45 06/09/19 13:00 101 21 153/75 (101) 96 06/09/19 12:00 84 06/09/19 12:00 99.5 68 6 137/76 (96) 96 06/09/19 12:00 45 06/09/19 12:00 Mechanical Ventilator 06/09/19 11:16 87 28 45 06/09/19 11:00 71 14 117/49 (71) 96 1/13/20 10:00 65 16 122/70 (87) 98 06/09/19 09:22 88 18 45 06/09/19 09:00 92 21 117/63 (81) 97 06/09/19 08:00 94 06/09/19 08:00 108 32 149/73 (98) 96 06/09/19 08:00 Mechanical Ventilator 06/09/19 07:35 82 24 45 45 06/09/19 07:30 45 06/09/19 07:00 99.1 73 16 107/46 (66) 96 06/09/19 06:00 67 16 95/53 (67) 97 06/09/19 05:30 95 35 45 06/09/19 05:24 95 16 06/09/19 05:00 93 13 129/62 (84) 95 06/09/19 04:00 Mechanical Ventilator 06/09/19 04:00 45 06/09/19 04:00 97.5 79 15 108/50 (69) 95 06/09/19 03:00 63 16 91/39 (56) 95 06/09/19 02:58 60 18 45 06/09/19 02:00 60 16 90/39 (56) 95 06/09/19 01:30 58 18 45 06/09/19 01:00 63 16 109/48 (68) 95 06/09/19 00:09 67 06/09/19 00:00 45 06/09/19 00:00 Mechanical Ventilator 06/09/19 00:00 98.6 65 106/53 (70) 95 06/08/19 23:14 70 18 45 06/08/19 23:00 56 15 89/39 (56) 15 06/08/19 22:00 57 16 92/41 (58) 96 06/08/19 21:00 64 16 99/42 (61) 97 06/08/19 20:53 73 18 45 06/08/19 20:00 98.7 58 16 102/40 (60) 98 06/08/19 20:00 Mechanical Ventilator 06/08/19 20:00 58 06/08/19 20:00 45 06/08/19 19:30 57 17 45 06/08/19 19:20 98/39 06/08/19 19:00 57 98/39 (58) 99 06/08/19 18:00 57 101/41 (61) 99 Intake and Output 06/08/19 06/09/19 19:00 07:00 Intake Total 1620 ml 620 ml Output Total 1235 ml 100 ml Balance 385 ml 520 ml Free Water 30 ml IV Total 110 ml 110 ml Tube Feeding 480 ml 480 ml Hemodialysis 1000 ml Other 30 ml Output Urine Total 35 ml 0 ml Stool Total 200 ml 100 ml Hemodialysis UF 1000 ml General Appearance: no acute distress HEENT: normocephalic Respiratory/Chest: chest wall non-tender, decreased breath sounds Cardiovascular: normal peripheral pulses, normal rate Abdomen: normal bowel sounds, soft, non tender Extremities: no cyanosis Microbiology Date/Time Source Procedure Growth Status 06/07/19 16:45 Stool Clostridium difficile Toxin Assay - Final Complete Laboratory Tests 06/09/19 05:10: White Blood Count 10.8, Red Blood Count 2.85L, Hemoglobin 8.6L, Hematocrit 25.7L , Mean Corpuscular Volume 90, Mean Corpuscular Hemoglobin 30.1, Mean Corpuscular Hemoglobin Concent 33.3, Red Cell Distribution Width 15.9H, Platelet Count 211, Mean Platelet Volume 5.2L, Neutrophils (%) (Auto) , Lymphocytes (%) (Auto) , Monocytes (%) (Auto) , Eosinophils (%) (Auto) , Basophils (%) (Auto) , Differential Total Cells Counted 100, Neutrophils % ( Manual) 94H, Lymphocytes % (Manual) 2L, Monocytes % (Manual) 4, Eosinophils % ( Manual) 0, Basophils % (Manual) 0, Band Neutrophils 0, Platelet Estimate Adequate, Platelet Morphology Normal, Sodium Level 141, Potassium Level 3.4L, Chloride Level 106, Carbon Dioxide Level 25, Anion Gap 10, Blood Urea Nitrogen 73H, Creatinine 4.8H, Estimat Glomerular Filtration Rate , Glucose Level 191H, Uric Acid 5.7, Calcium Level 7.3L, Phosphorus Level 4.0, Magnesium Level 2.3, Total Bilirubin 0.3, Aspartate Amino Transf (AST/SGOT) 29, Alanine Aminotransferase (ALT/SGPT) 29, Alkaline Phosphatase 57, C-Reactive Protein, Quantitative 0.7, Pro-B-Type Natriuretic Peptide 9053H, Total Protein 5.0L, Albumin 1.6L, Globulin 3.4, Albumin/Globulin Ratio 0.5L Current Medications Medications (Trade) Dose Ordered Sig/Phillip Route PRN Reason Start Time Stop Time Status Last Admin Dose Admin Acetaminophen (Tylenol) 500 mg Q4H PRN GT Mild Pain/Temp > 100.5 05/27/19 07:45 06/19/19 20:29 06/06/19 13:52 Amiodarone HCl (Cordarone) 200 mg DAILY ORAL 06/07/19 16:15 07/07/19 16:14 06/09/19 08:58 Apixaban (Eliquis) 2.5 mg Q12HR ORAL 06/08/19 21:00 07/08/19 20:59 06/09/19 08:58 Chlorhexidine Gluconate (Reina-Hex 2%) 1 applic DAILY@2000 TOPIC 05/27/19 20:00 06/26/19 19:59 06/08/19 20:22 Daptomycin 500 mg/ Sodium Chloride 55 ml @ 100 mls/hr Q48H IV 05/29/19 13:00 06/11/19 12:59 06/08/19 13:52 Ipratropium [place] (Atrovent) 500 mcg Q4H PRN HHN Shortness of Breath 06/08/19 10:00 06/13/19 09:59 06/08/19 12:37 Lansoprazole (Prevacid) 30 mg BID NG 06/06/19 18:00 07/06/19 17:59 06/09/19 08:58 Lorazepam (Ativan 2mg/ml 1ml) 1 mg Q4H PRN IV For Anxiety/Agitation 06/08/19 10:00 06/15/19 09:59 06/08/19 13:52 Methylprednisolone Sodium Succinate (Solu-MEDROL) 60 mg EVERY 12 HOURS IVP 06/04/19 21:00 07/04/19 20:59 06/09/19 08:57 Metoprolol Tartrate (Lopressor) 5 mg Q5MIN X 3 IVP 06/07/19 16:15 07/07/19 16:14 06/09/19 15:30 Norepinephrine Bitartrate 4 mg/ Dextrose 250 ml @ 0 mls/hr Q24H IV 05/29/19 19:20 06/28/19 19:19 05/30/19 22:45 Piperacillin Sod/ Tazobactam Sod 2.25 gm/Dextrose 55 ml @ 110 mls/hr Q8HR@0400,1200,2000 IV 06/03/19 12:00 06/10/19 11:59 06/09/19 12:23 Vitamin D (Vitamin D) 5,000 intlu DAILY GT 06/07/19 13:00 07/07/19 12:59 06/09/19 08:58 Arsen Whittaker MD Jun 09, 2019 17:29
[2019-06-09] MEDS: Dyna-Hex 2% Top Sol 2oz TOPIC SCH (20:26)
--- NOTE | 2019-06-09 20:53 | General Progress Note ---
Assessment/Plan Problem List: (1) SOB (shortness of breath) ICD Codes: R06.02 - Shortness of breath SNOMED: 012127032 (2) Cellulitis ICD Codes: L03.90 - Cellulitis, unspecified SNOMED: 508492339 (3) Cellulitis of upper extremity ICD Codes: L03.119 - Cellulitis of unspecified part of limb SNOMED: 709158634 Qualifiers: Qualified Codes: L03.113 - Cellulitis of right upper limb (4) Renal insufficiency ICD Codes: N28.9 - Disorder of kidney and ureter, unspecified SNOMED: 769863568, 402966282 (5) Renal failure (ARF), acute on chronic ICD Codes: N17.9 - Acute kidney failure, unspecified; N18.9 - Chronic kidney disease, unspecified SNOMED: 974510795 (6) Anemia ICD Codes: D64.9 - Anemia, unspecified SNOMED: 496985254 (7) Hypothyroidism ICD Codes: E03.9 - Hypothyroidism, unspecified SNOMED: 50660245 (8) UTI (urinary tract infection) ICD Codes: N39.0 - Urinary tract infection, site not specified SNOMED: 51657350 Status: progressing, unchanged, deteriorating Assessment/Plan: intubated lethargic trach per pulmonary chf pna sepsis wound in lower extremity. distal fracture .ortho is already on the case rhonci le wound has dorsal pedalis pulse lwound and le fracture Subjective ROS Limited/Unobtainable: Yes Allergies: Coded Allergies: No Known Allergies (Unverified , 05/18/19) Objective Last 24 Hour Vital Signs Date Time Temp Pulse Resp B/P (MAP) Pulse Ox O2 Delivery O2 Flow Rate FiO2 06/09/19 19:04 103 28 40 06/09/19 19:00 97.7 103 0 177/83 (114) 97 06/09/19 18:00 100 20 164/73 (103) 98 06/09/19 17:18 86 27 45 06/09/19 17:00 87 16 171/75 (107) 98 06/09/19 16:00 Mechanical Ventilator 06/09/19 16:00 45 06/09/19 16:00 99.8 84 10 145/61 (89) 96 06/09/19 15:40 80 06/09/19 15:30 167 155/94 06/09/19 15:27 170 22 45 06/09/19 15:20 169 06/09/19 15:00 104 31 143/80 (101) 95 06/09/19 14:00 90 25 165/79 (107) 98 06/09/19 13:27 98 29 45 06/09/19 13:00 101 21 153/75 (101) 96 06/09/19 12:00 84 06/09/19 12:00 99.5 68 6 137/76 (96) 96 06/09/19 12:00 45 06/09/19 12:00 Mechanical Ventilator 06/09/19 11:16 87 28 45 06/09/19 11:00 71 14 117/49 (71) 96 06/09/19 10:00 65 16 122/70 (87) 98 06/09/19 09:22 88 18 45 06/09/19 09:00 92 21 117/63 (81) 97 06/09/19 08:00 94 06/09/19 08:00 108 32 149/73 (98) 96 06/09/19 08:00 Mechanical Ventilator 06/09/19 07:35 82 24 45 45 06/09/19 07:30 45 06/09/19 07:00 99.1 73 16 107/46 (66) 96 06/09/19 06:00 67 16 95/53 (67) 97 06/09/19 05:30 95 35 45 06/09/19 05:24 95 16 06/09/19 05:00 93 13 129/62 (84) 95 06/09/19 04:00 Mechanical Ventilator 06/09/19 04:00 45 06/09/19 04:00 97.5 79 15 108/50 (69) 95 06/09/19 03:00 63 16 91/39 (56) 95 06/09/19 02:58 60 18 45 06/09/19 02:00 60 16 90/39 (56) 95 06/09/19 01:30 58 18 45 06/09/19 01:00 63 16 109/48 (68) 95 06/09/19 00:09 67 06/09/19 00:00 45 06/09/19 00:00 Mechanical Ventilator 06/09/19 00:00 98.6 65 106/53 (70) 95 06/08/19 23:14 70 18 45 06/08/19 23:00 56 15 89/39 (56) 15 06/08/19 22:00 57 16 92/41 (58) 96 06/08/19 21:00 64 16 99/42 (61) 97 06/08/19 20:53 73 18 45 Intake and Output 06/08/19 06/09/19 19:00 07:00 Intake Total 1620 ml 620 ml Output Total 1235 ml 100 ml Balance 385 ml 520 ml Free Water 30 ml IV Total 110 ml 110 ml Tube Feeding 480 ml 480 ml Hemodialysis 1000 ml Other 30 ml Output Urine Total 35 ml 0 ml Stool Total 200 ml 100 ml Hemodialysis UF 1000 ml Laboratory Tests 06/09/19 05:10: White Blood Count 10.8, Red Blood Count 2.85L, Hemoglobin 8.6L, Hematocrit 25.7L , Mean Corpuscular Volume 90, Mean Corpuscular Hemoglobin 30.1, Mean Corpuscular Hemoglobin Concent 33.3, Red Cell Distribution Width 15.9H, Platelet Count 211, Mean Platelet Volume 5.2L, Neutrophils (%) (Auto) , Lymphocytes (%) (Auto) , Monocytes (%) (Auto) , Eosinophils (%) (Auto) , Basophils (%) (Auto) , Differential Total Cells Counted 100, Neutrophils % ( Manual) 94H, Lymphocytes % (Manual) 2L, Monocytes % (Manual) 4, Eosinophils % ( Manual) 0, Basophils % (Manual) 0, Band Neutrophils 0, Platelet Estimate Adequate, Platelet Morphology Normal, Sodium Level 141, Potassium Level 3.4L, Chloride Level 106, Carbon Dioxide Level 25, Anion Gap 10, Blood Urea Nitrogen 73H, Creatinine 4.8H, Estimat Glomerular Filtration Rate , Glucose Level 191H, Uric Acid 5.7, Calcium Level 7.3L, Phosphorus Level 4.0, Magnesium Level 2.3, Total Bilirubin 0.3, Aspartate Amino Transf (AST/SGOT) 29, Alanine Aminotransferase (ALT/SGPT) 29, Alkaline Phosphatase 57, C-Reactive Protein, Quantitative 0.7, Pro-B-Type Natriuretic Peptide 9053H, Total Protein 5.0L, Albumin 1.6L, Globulin 3.4, Albumin/Globulin Ratio 0.5L Height (Feet): 5 Height (Inches): 7.00 Weight (Pounds): 205 General Appearance: lethargic, confused Respiratory/Chest: rhonchi - bilaterally Joslny Wiggins MD Jun 09, 2019 20:53
--- NOTE | 2019-06-09 22:45 | Progress Note ---
DATE: 06/09/2019 SUBJECTIVE: The patient is in bed. He is awake, eyes open, able to communicate by nodding, still on restraints. Has episodes of agitation. MENTAL STATUS EXAMINATION: Alert, oriented times self and place. Mood is neutral to anxious. Affect is flat. Thought process, there is a paucity of thought content. Thought content, no suicidal or homicidal ideation. ASSESSMENT: 1. Dementia with behavior disturbance. 2. Failure to thrive. PLAN: We will continue current psychotropic medications. Piter Pedraza M.D. DR: JESSI JOB#: [id number] CC:
--- NOTE | 2019-06-09 23:54 | Cardiology Progress Note ---
Assessment/Plan Assessment/Plan 1. SVT resolved now in SR/SB, continue amiodarone. 2. Paroxysmal atrial fibrillation now in sinus rhythm. 3. Septic shock, resolved, likely due to bilateral PNA, off midodrine. 4. Oliguric acute kidney injury, CXR shows B/L pulmonary edema, on HD. 5. Small pericardial effusion with pleural effusion, s/p HD. 6. B/L pleural effusion. 7. Acute respiratory failure, failed weaning. Subjective Subjective Sinus rhythm at rate of 97. Intubated. Objective Last 24 Hour Vital Signs Date Time Temp Pulse Resp B/P (MAP) Pulse Ox O2 Delivery O2 Flow Rate FiO2 06/09/19 23:00 97 21 155/76 (102) 95 06/09/19 22:32 93 20 40 06/09/19 22:00 97 22 162/83 (109) 95 06/09/19 21:02 102 25 40 06/09/19 21:00 95 22 168/78 (108) 95 06/09/19 20:00 82 06/09/19 20:00 Mechanical Ventilator 06/09/19 20:00 40 06/09/19 20:00 98.9 97 22 162/83 (109) 97 06/09/19 19:04 103 28 40 06/09/19 19:00 97.7 103 0 177/83 (114) 97 06/09/19 18:00 100 20 164/73 (103) 98 06/09/19 17:18 86 27 45 06/09/19 17:00 87 16 171/75 (107) 98 06/09/19 16:00 Mechanical Ventilator 06/09/19 16:00 45 06/09/19 16:00 99.8 84 10 145/61 (89) 96 06/09/19 15:40 80 06/09/19 15:30 167 155/94 06/09/19 15:27 170 22 45 06/09/19 15:20 169 06/09/19 15:00 104 31 143/80 (101) 95 06/09/19 14:00 90 25 165/79 (107) 98 06/09/19 13:27 98 29 45 06/09/19 13:00 101 21 153/75 (101) 96 06/09/19 12:00 84 06/09/19 12:00 99.5 68 6 137/76 (96) 96 06/09/19 12:00 45 06/09/19 12:00 Mechanical Ventilator 06/09/19 11:16 87 28 45 06/09/19 11:00 71 14 117/49 (71) 96 06/09/19 10:00 65 16 122/70 (87) 98 06/09/19 09:22 88 18 45 06/09/19 09:00 92 21 117/63 (81) 97 06/09/19 08:00 94 06/09/19 08:00 108 32 149/73 (98) 96 06/09/19 08:00 Mechanical Ventilator 06/09/19 07:35 82 24 45 45 06/09/19 07:30 45 06/09/19 07:00 99.1 73 16 107/46 (66) 96 06/09/19 06:00 67 16 95/53 (67) 97 06/09/19 05:30 95 35 45 06/09/19 05:24 95 16 06/09/19 05:00 93 13 129/62 (84) 95 06/09/19 04:00 Mechanical Ventilator 06/09/19 04:00 45 06/09/19 04:00 97.5 79 15 108/50 (69) 95 06/09/19 03:00 63 16 91/39 (56) 95 06/09/19 02:58 60 18 45 06/09/19 02:00 60 16 90/39 (56) 95 06/09/19 01:30 58 18 45 06/09/19 01:00 63 16 109/48 (68) 95 06/09/19 00:09 67 06/09/19 00:00 45 06/09/19 00:00 Mechanical Ventilator 06/09/19 00:00 98.6 65 106/53 (70) 95 Intake and Output 06/08/19 06/09/19 19:00 07:00 Intake Total 1620 ml 620 ml Output Total 1235 ml 100 ml Balance 385 ml 520 ml Free Water 30 ml IV Total 110 ml 110 ml Tube Feeding 480 ml 480 ml Hemodialysis 1000 ml Other 30 ml Output Urine Total 35 ml 0 ml Stool Total 200 ml 100 ml Hemodialysis UF 1000 ml 2D Echo: EF 65%,Mod AR,Elevated RAP, RVSP 30,Small pericardial eff, pleural effusion Laboratory Tests Test 06/09/19 05:10 White Blood Count 10.8 K/UL (4.8-10.8) Red Blood Count 2.85 M/UL (4.70-6.10) L Hemoglobin 8.6 G/DL (14.2-18.0) L Hematocrit 25.7 % (42.0-52.0) L Mean Corpuscular Volume 90 FL (80-99) Mean Corpuscular Hemoglobin 30.1 PG (27.0-31.0) Mean Corpuscular Hemoglobin Concent 33.3 G/DL (32.0-36.0) Red Cell Distribution Width 15.9 % (11.6-14.8) H Platelet Count 211 K/UL (150-450) Mean Platelet Volume 5.2 FL (6.5-10.1) L Neutrophils (%) (Auto) % (45.0-75.0) Lymphocytes (%) (Auto) % (20.0-45.0) Monocytes (%) (Auto) % (1.0-10.0) Eosinophils (%) (Auto) % (0.0-3.0) Basophils (%) (Auto) % (0.0-2.0) Differential Total Cells Counted 100 Neutrophils % (Manual) 94 % (45-75) H Lymphocytes % (Manual) 2 % (20-45) L Monocytes % (Manual) 4 % (1-10) Eosinophils % (Manual) 0 % (0-3) Basophils % (Manual) 0 % (0-2) Band Neutrophils 0 % (0-8) Platelet Estimate Adequate Platelet Morphology Normal Sodium Level 141 MMOL/L (136-145) Potassium Level 3.4 MMOL/L (3.5-5.1) L Chloride Level 106 MMOL/L (98-107) Carbon Dioxide Level 25 MMOL/L (21-32) Anion Gap 10 mmol/L (5-15) Blood Urea Nitrogen 73 mg/dL (7-18) H Creatinine 4.8 MG/DL (0.55-1.30) H Estimat Glomerular Filtration Rate mL/min (>60) Glucose Level 191 MG/DL (74-106) H Uric Acid 5.7 MG/DL (2.6-7.2) Calcium Level 7.3 MG/DL (8.5-10.1) L Phosphorus Level 4.0 MG/DL (2.5-4.9) Magnesium Level 2.3 MG/DL (1.8-2.4) Total Bilirubin 0.3 MG/DL (0.2-1.0) Aspartate Amino Transf (AST/SGOT) 29 U/L (15-37) Alanine Aminotransferase (ALT/SGPT) 29 U/L (12-78) Alkaline Phosphatase 57 U/L (46-116) C-Reactive Protein, Quantitative 0.7 mg/dL (0.00-0.90) Pro-B-Type Natriuretic Peptide 9053 pg/mL (0-125) H Total Protein 5.0 G/DL (6.4-8.2) L Albumin 1.6 G/DL (3.4-5.0) L Globulin 3.4 g/dL Albumin/Globulin Ratio 0.5 (1.0-2.7) L Microbiology Date/Time Source Procedure Growth Status 06/07/19 16:45 Stool Clostridium difficile Toxin Assay - Final Complete Objective HEENT: Atraumatic and normocephalic. Anicteric. Pupils are equal, round, and reactive to light and accommodation. Extraocular muscles intact. NECK: JVP less than 5 cm. No carotid bruit. Carotid upstroke is 2+ bilaterally. CARDIOVASCULAR: Normal S1, S2. Regular rate and rhythm. No murmurs, gallops, or rubs. PMI is at fourth intercostal space in the midclavicular line. LUNGS: Diminished both bases. ABDOMEN: Soft, nontender, and nondistended. No hepatosplenomegaly. Positive bowel sounds. EXTREMITIES: No evidence of edema, clubbing, or cyanosis. Del Garcia MD Jun 09, 2019 23:54
[2019-06-10] VITALS (35 sets, daily range): BP systolic 111–193; BP diastolic 50–108
[2019-06-10] MEDS: Zosyn 2.25 gm in D5W 55ml IV SCH (04:24)
[2019-06-10] MEDS: Solu-MEDROL 125mg Inj IVP SCH ×2 (08:16→21:20)
[2019-06-10] MEDS: Vitamin D 1000 IU Tab GT SCH (08:16)
[2019-06-10] MEDS: Eliquis 2.5mg tablet ORAL SCH ×2 (08:16→21:20)
[2019-06-10] MEDS: Amiodarone 200mg tab ORAL SCH (08:17)
[2019-06-10] MEDS ORDERED: Tubing IV Secondary IV ONE (09:37)
[2019-06-10] MEDS ORDERED: NS 275ml ONE ×2 (09:37→09:54)
--- NOTE | 2019-06-10 09:47 | Infectious Diseases Prog Note ---
Assessment/Plan Assessment/Plan 84 yo male with PMHx of HTN who was sent to the ED on 05/18/19 from his [facility] for possible picc line infection. Swelling around PICC line Minimal to no erythema and no purulent drainage Not likely to be infected Blood Cx 05/18/19 - NGTD PICC Tip Cx 05/18/19 - NGTD PICC line removed 05/18/19 Leukocytosis, SP No fever OM - Let foot On Vancomycin at nursing End date early May PNA Acute respiratory failure s/p intubation 05/27 CXR - Some LLL Atelectasis vs PNA, Nodules CT 05/20/19 - Bilateral upper lobe infiltrates worse on the right. Consider pneumonia. Bilateral pleural effusions moderate in size Sp Cx Marily HTN PLAN - Continue Daptomycin for OM End date per [facility]cc MD weekly CPK - D/c Zosyn #15/14 for probable PNA - 05/28/19 SP Vancomycin per pharmacy - Stopped for increasing Cr - 05/27/19 SP Levofloxacin #5 - Get OSH records for OM - Monitor CBC and Temps -CXR Thank you for this consult. [facility] will continue to follow the patient with you during this hospitalization. Subjective Allergies: Coded Allergies: No Known Allergies (Unverified , 05/18/19) Subjective afebrile no leukocytosis off pressors remains intubated Objective Vital Signs Last 24 Hour Vital Signs Date Time Temp Pulse Resp B/P (MAP) Pulse Ox O2 Delivery O2 Flow Rate FiO2 06/10/19 09:08 77 27 40 06/10/19 08:00 99.4 77 24 143/66 (91) 98 06/10/19 08:00 Mechanical Ventilator 06/10/19 08:00 40 06/10/19 07:33 79 26 40 40 06/10/19 07:00 105 41 166/76 (106) 96 06/10/19 06:30 98 16 06/10/19 06:00 95 20 154/73 (100) 98 06/10/19 05:00 97.9 91 22 158/73 (101) 96 06/10/19 04:51 90 25 40 06/10/19 04:00 Mechanical Ventilator 06/10/19 04:00 77 06/10/19 04:00 40 06/10/19 04:00 77 20 144/77 (99) 96 06/10/19 03:00 88 27 159/70 (99) 95 06/10/19 02:45 86 21 40 06/10/19 02:00 76 21 155/80 (105) 98 06/10/19 01:00 95 21 171/73 (105) 95 06/10/19 00:59 97 22 40 06/10/19 00:00 40 06/10/19 00:00 81 06/10/19 00:00 Mechanical Ventilator 06/10/19 00:00 98.8 95 21 165/78 (107) 95 06/09/19 23:00 97 21 155/76 (102) 95 06/09/19 22:32 93 20 40 06/09/19 22:00 97 22 162/83 (109) 95 06/09/19 21:02 102 25 40 06/09/19 21:00 95 22 168/78 (108) 95 06/09/19 20:00 82 06/09/19 20:00 Mechanical Ventilator 06/09/19 20:00 40 06/09/19 20:00 98.9 97 22 162/83 (109) 97 06/09/19 19:04 103 28 40 06/09/19 19:00 97.7 103 0 177/83 (114) 97 06/09/19 18:00 100 20 164/73 (103) 98 06/09/19 17:18 86 27 45 06/09/19 17:00 87 16 171/75 (107) 98 06/09/19 16:00 Mechanical Ventilator 06/09/19 16:00 45 06/09/19 16:00 99.8 84 10 145/61 (89) 96 06/09/19 15:40 80 06/09/19 15:30 167 155/94 06/09/19 15:27 170 22 45 06/09/19 15:20 169 06/09/19 15:00 104 31 143/80 (101) 95 06/09/19 14:00 90 25 165/79 (107) 98 06/09/19 13:27 98 29 45 06/09/19 13:00 101 21 153/75 (101) 96 06/09/19 12:00 84 06/09/19 12:00 99.5 68 6 137/76 (96) 96 06/09/19 12:00 45 06/09/19 12:00 Mechanical Ventilator 06/09/19 11:16 87 28 45 06/09/19 11:00 71 14 117/49 (71) 96 06/09/19 10:00 65 16 122/70 (87) 98 Height (Feet): 5 Height (Inches): 7.00 Weight (Pounds): 212 Objective General Appearance: no apparent distress, lethargic Cardiovascular: normal rate Respiratory/Chest: decreased breath sounds Abdomen: distended Microbiology Date/Time Source Procedure Growth Status 06/07/19 16:45 Stool Clostridium difficile Toxin Assay - Final Complete Current Medications Medications (Trade) Dose Ordered Sig/Phillip Route PRN Reason Start Time Stop Time Status Last Admin Dose Admin Acetaminophen (Tylenol) 500 mg Q4H PRN GT Mild Pain/Temp > 100.5 05/27/19 07:45 06/19/19 20:29 06/06/19 13:52 Amiodarone HCl (Cordarone) 200 mg DAILY ORAL 06/07/19 16:15 07/07/19 16:14 06/10/19 08:17 Apixaban (Eliquis) 2.5 mg Q12HR ORAL 06/08/19 21:00 07/08/19 20:59 06/10/19 08:16 Chlorhexidine Gluconate (Reina-Hex 2%) 1 applic DAILY@2000 TOPIC 05/27/19 20:00 06/26/19 19:59 06/09/19 20:26 Daptomycin 500 mg/ Sodium Chloride 55 ml @ 100 mls/hr Q48H IV 05/29/19 13:00 06/11/19 12:59 06/08/19 13:52 Ipratropium [place] (Atrovent) 500 mcg Q4H PRN HHN Shortness of Breath 06/08/19 10:00 06/13/19 09:59 06/08/19 12:37 Lansoprazole (Prevacid) 30 mg BID NG 06/06/19 18:00 07/06/19 17:59 06/10/19 08:16 Lorazepam (Ativan 2mg/ml 1ml) 1 mg Q4H PRN IV For Anxiety/Agitation 06/08/19 10:00 06/15/19 09:59 06/08/19 13:52 Methylprednisolone Sodium Succinate (Solu-MEDROL) 60 mg EVERY 12 HOURS IVP 06/04/19 21:00 07/04/19 20:59 06/10/19 08:16 Metoprolol Tartrate (Lopressor) 5 mg Q5MIN X 3 IVP 06/07/19 16:15 07/07/19 16:14 06/09/19 15:30 Norepinephrine Bitartrate 4 mg/ Dextrose 250 ml @ 0 mls/hr Q24H IV 05/29/19 19:20 06/28/19 19:19 05/30/19 22:45 Piperacillin Sod/ Tazobactam Sod 2.25 gm/Dextrose 55 ml @ 110 mls/hr Q8HR@0400,1200,2000 IV 06/03/19 12:00 06/10/19 11:59 06/10/19 04:24 Vitamin D (Vitamin D) 5,000 intlu DAILY GT 06/07/19 13:00 07/07/19 12:59 06/10/19 08:16 Latha Lowe M.D. Jun 10, 2019 09:47
[2019-06-10] MEDS ORDERED: D5NS 1000ml IV ONE (09:54)
[2019-06-10] MEDS: LORazepam Inj 2mg/ml 1ml IV PRN ×2 (10:09→17:13)
--- NOTE | 2019-06-10 10:13 | Hematology/Onc Progress Note ---
Assessment/Plan Assessment/Plan # Anemia of chronic disease due to underlying chronic medical issues, multifactorial v Gi bleed --> Anemia workup has been reviewed, rule out gi bleed --> No evidence of hemolysis is noted, peripheral smear has been reviewed. --> Hgb goal >7. Transfuse prn. --> Epogen or iron at this time is not particularly indicated --> Medications have been reviewed --> low threshold for gi evaluation in case has occult + --> hgb trend: 9.3-->9.7-->8.1-->7.6-->8-->9.4-->9.2->7.5-->9.3-->8-->8.1-->8.6 --> transf 05/28/19 with 1 unit prbc, 1 unit on 06/03 --> transfusion is a emergency, no family, no poa, is okay to transfuse # Right upper arm extremity axillary vein dvt --> agree to continue eliquis ONCE bleeding resolved --> continue for total of minimum of 3 months --> rescan arm in 3 mo # Thrombocytopenia is due to infection, i.e. cellulitis of upper extremity, likely picc line infection --> as per id on ax --> picc off --> levoflox/vanc-->zosyn/vanc--> zosyn-->dapto/zosyn --> plt trend 208-->132-->146k-->159-->217-->211 # Renal insufficiency --> per Dr. Mera # Pneumonia --> abx per id # Dehydration. --> goal of euvolemia # Paroxysmal Atrial fibrillation with rapid ventricular response was on amiodarone gtt, now in sinus rhythm. --> per cards On PO amiodarone 200 bid, Lopressor 25 bid # Dysphagia with ng tube # Dvt ppx eliquis--> continued The timing of this note does not necessarily reflect the time of the patient was seen. Greatly appreciate consultation. Subjective Allergies: Coded Allergies: No Known Allergies (Unverified , 05/18/19) Subjective 05/24: awake and alert, v mask, labs reviewed, apixaban 05/25: as per gi, ngt and eliquis tolerated 05/26: pending clearance but still with ng and nonrebreather 05/27: hypoxic yesterday, deteriorated, coded, now intubated, icu, labs noted 05/28: icu, levophed gtt, hgb 7.6, repeat cbc 05/29: remains in the icu, given prbc last night, no bleeding 05/30: no events, no bleeding, ++ fredo and on pressor 05/31: intubated, bp better on pressor, no bleeding, coag ordered 06/02: reamins ill appearing, on vent, labs noted, on vent, poorly responsive 06/03: no events, no bleeding, labs noted, dw surgery, and Rn, monitoring plt 06/04: tolerating tube feeds, labs noted, in the icu 06/05: restraints, cxr unchanged, anticoagulants on hold until further notice 06/06: no events, no bleeding, no night sweats, no bleeding 06/08: icu, unable to wean per resp, apixaban restarted, labs reviewed 06/09: minimally responsive, on vent and gt feeds, no bleeding 06/10: no acute events, failed to wean, hd for today, h/h stable Objective Objective Current Medications Medications (Trade) Dose Ordered Sig/Phillip Route PRN Reason Start Time Stop Time Status Last Admin Dose Admin Acetaminophen (Tylenol) 500 mg Q4H PRN GT Mild Pain/Temp > 100.5 05/27/19 07:45 06/19/19 20:29 06/06/19 13:52 Amiodarone HCl (Cordarone) 200 mg DAILY ORAL 06/07/19 16:15 07/07/19 16:14 06/10/19 08:17 Apixaban (Eliquis) 2.5 mg Q12HR ORAL 06/08/19 21:00 07/08/19 20:59 06/10/19 08:16 Chlorhexidine Gluconate (Reina-Hex 2%) 1 applic DAILY@1999 TOPIC 05/27/19 20:00 06/26/19 19:59 06/09/19 20:26 Daptomycin 500 mg/ Sodium Chloride 55 ml @ 100 mls/hr Q48H IV 05/29/19 13:00 06/11/19 12:59 06/08/19 13:52 Ipratropium [place] (Atrovent) 500 mcg Q4H PRN HHN Shortness of Breath 06/08/19 10:00 06/13/19 09:59 06/08/19 12:37 Lansoprazole (Prevacid) 30 mg BID NG 06/06/19 18:00 07/06/19 17:59 06/10/19 08:16 Lorazepam (Ativan 2mg/ml 1ml) 1 mg Q4H PRN IV For Anxiety/Agitation 06/08/19 10:00 06/15/19 09:59 06/10/19 10:09 Methylprednisolone Sodium Succinate (Solu-MEDROL) 60 mg EVERY 12 HOURS IVP 06/04/19 21:00 07/04/19 20:59 06/10/19 08:16 Metoprolol Tartrate (Lopressor) 5 mg Q5MIN X 3 IVP 06/07/19 16:15 07/07/19 16:14 06/09/19 15:30 Norepinephrine Bitartrate 4 mg/ Dextrose 250 ml @ 0 mls/hr Q24H IV 05/29/19 19:20 06/28/19 19:19 05/30/19 22:45 Vitamin D (Vitamin D) 5,000 intlu DAILY GT 06/07/19 13:00 07/07/19 12:59 06/10/19 08:16 Last 24 Hour Vital Signs Date Time Temp Pulse Resp B/P (MAP) Pulse Ox O2 Delivery O2 Flow Rate FiO2 06/10/19 09:08 77 27 40 06/10/19 08:00 99.4 77 24 143/66 (91) 98 06/10/19 08:00 Mechanical Ventilator 06/10/19 08:00 40 06/10/19 07:33 79 26 40 40 06/10/19 07:00 105 41 166/76 (106) 96 06/10/19 06:30 98 16 06/10/19 06:00 95 20 154/73 (100) 98 06/10/19 05:00 97.9 91 22 158/73 (101) 96 06/10/19 04:51 90 25 40 06/10/19 04:00 Mechanical Ventilator 06/10/19 04:00 77 06/10/19 04:00 40 06/10/19 04:00 77 20 144/77 (99) 96 06/10/19 03:00 88 27 159/70 (99) 95 06/10/19 02:45 86 21 40 06/10/19 02:00 76 21 155/80 (105) 98 06/10/19 01:00 95 21 171/73 (105) 95 06/10/19 00:59 97 22 40 06/10/19 00:00 40 06/10/19 00:00 81 06/10/19 00:00 Mechanical Ventilator 06/10/19 00:00 98.8 95 21 165/78 (107) 95 06/09/19 23:00 97 21 155/76 (102) 95 06/09/19 22:32 93 20 40 06/09/19 22:00 97 22 162/83 (109) 95 06/09/19 21:02 102 25 40 06/09/19 21:00 95 22 168/78 (108) 95 06/09/19 20:00 82 06/09/19 20:00 Mechanical Ventilator 06/09/19 20:00 40 06/09/19 20:00 98.9 97 22 162/83 (109) 97 06/09/19 19:04 103 28 40 06/09/19 19:00 97.7 103 0 177/83 (114) 97 06/09/19 18:00 100 20 164/73 (103) 98 06/09/19 17:18 86 27 45 06/09/19 17:00 87 16 171/75 (107) 98 06/09/19 16:00 Mechanical Ventilator 06/09/19 16:00 45 06/09/19 16:00 99.8 84 10 145/61 (89) 96 06/09/19 15:40 80 06/09/19 15:30 167 155/94 06/09/19 15:27 170 22 45 06/09/19 15:20 169 06/09/19 15:00 104 31 143/80 (101) 95 06/09/19 14:00 90 25 165/79 (107) 98 06/09/19 13:27 98 29 45 06/09/19 13:00 101 21 153/75 (101) 96 06/09/19 12:00 84 06/09/19 12:00 99.5 68 6 137/76 (96) 96 06/09/19 12:00 45 06/09/19 12:00 Mechanical Ventilator 06/09/19 11:16 87 28 45 06/09/19 11:00 71 14 117/49 (71) 96 06/09/19 10:00 65 16 122/70 (87) 98 06/09/19 09:22 88 18 45 06/09/19 09:00 92 21 117/63 (81) 97 06/09/19 08:00 94 06/09/19 08:00 108 32 149/73 (98) 96 06/09/19 08:00 Mechanical Ventilator 06/09/19 07:35 82 24 45 45 06/09/19 07:30 45 06/09/19 07:00 99.1 73 16 107/46 (66) 96 06/09/19 06:00 67 16 95/53 (67) 97 06/09/19 05:30 95 35 45 06/09/19 05:24 95 16 06/09/19 05:00 93 13 129/62 (84) 95 06/09/19 04:00 Mechanical Ventilator 06/09/19 04:00 45 06/09/19 04:00 97.5 79 15 108/50 (69) 95 06/09/19 03:00 63 16 91/39 (56) 95 06/09/19 02:58 60 18 45 06/09/19 02:00 60 16 90/39 (56) 95 06/09/19 01:30 58 18 45 06/09/19 01:00 63 16 109/48 (68) 95 06/09/19 00:09 67 06/09/19 00:00 45 06/09/19 00:00 Mechanical Ventilator 06/09/19 00:00 98.6 65 106/53 (70) 95 06/08/19 23:14 70 18 45 06/08/19 23:00 56 15 89/39 (56) 15 06/08/19 22:00 57 16 92/41 (58) 96 06/08/19 21:00 64 16 99/42 (61) 97 06/08/19 20:53 73 18 45 06/08/19 20:00 98.7 58 16 102/40 (60) 98 06/08/19 20:00 Mechanical Ventilator 06/08/19 20:00 58 06/08/19 20:00 45 06/08/19 19:30 57 17 45 06/08/19 19:20 98/39 06/08/19 19:00 57 98/39 (58) 99 06/08/19 18:00 57 101/41 (61) 99 06/08/19 17:21 71 18 45 06/08/19 17:00 63 108/49 (68) 99 06/08/19 16:00 57 06/08/19 16:00 45 06/08/19 16:00 Mechanical Ventilator 06/08/19 16:00 98.3 58 106/44 (64) 99 06/08/19 15:29 58 16 45 06/08/19 15:00 74 119/60 (79) 99 06/08/19 14:00 97 118/50 (72) 98 06/08/19 13:00 97 142/79 (100) 98 06/08/19 12:47 95 24 99 Mechanical Ventilator 45 97 24 45 06/08/19 12:00 97.8 97 142/74 (96) 94 06/08/19 12:00 85 06/08/19 12:00 Mechanical Ventilator 06/08/19 12:00 45 06/08/19 11:30 78 19 45 06/08/19 11:00 78 22 151/53 (85) 98 Intake and Output 06/09/19 06/10/19 19:00 07:00 Intake Total 720 ml 590 ml Output Total 260 ml 30 ml Balance 460 ml 560 ml Free Water 240 ml IV Total 110 ml Tube Feeding 480 ml 480 ml Output Urine Total 110 ml 30 ml Stool Total 150 ml # Bowel Movements 100 Labs Test 06/08/19 05:30 06/09/19 05:10 White Blood Count 12.1 K/UL (4.8-10.8) 10.8 K/UL (4.8-10.8) Red Blood Count 2.64 M/UL (4.70-6.10) 2.85 M/UL (4.70-6.10) Hemoglobin 8.1 G/DL (14.2-18.0) 8.6 G/DL (14.2-18.0) Hematocrit 23.5 % (42.0-52.0) 25.7 % (42.0-52.0) Mean Corpuscular Volume 89 FL (80-99) 90 FL (80-99) Mean Corpuscular Hemoglobin 30.8 PG (27.0-31.0) 30.1 PG (27.0-31.0) Mean Corpuscular Hemoglobin Concent 34.5 G/DL (32.0-36.0) 33.3 G/DL (32.0-36.0) Red Cell Distribution Width 15.1 % (11.6-14.8) 15.9 % (11.6-14.8) Platelet Count 217 K/UL (150-450) 211 K/UL (150-450) Mean Platelet Volume 5.1 FL (6.5-10.1) 5.2 FL (6.5-10.1) Neutrophils (%) (Auto) % (45.0-75.0) % (45.0-75.0) Lymphocytes (%) (Auto) % (20.0-45.0) % (20.0-45.0) Monocytes (%) (Auto) % (1.0-10.0) % (1.0-10.0) Eosinophils (%) (Auto) % (0.0-3.0) % (0.0-3.0) Basophils (%) (Auto) % (0.0-2.0) % (0.0-2.0) Differential Total Cells Counted 100 100 Neutrophils % (Manual) 96 % (45-75) 94 % (45-75) Lymphocytes % (Manual) 2 % (20-45) 2 % (20-45) Monocytes % (Manual) 2 % (1-10) 4 % (1-10) Eosinophils % (Manual) 0 % (0-3) 0 % (0-3) Basophils % (Manual) 0 % (0-2) 0 % (0-2) Band Neutrophils 0 % (0-8) 0 % (0-8) Platelet Estimate Adequate Adequate Platelet Morphology Normal Normal Anisocytosis 1+ Sodium Level 136 MMOL/L (136-145) 141 MMOL/L (136-145) Potassium Level 3.7 MMOL/L (3.5-5.1) 3.4 MMOL/L (3.5-5.1) Chloride Level 103 MMOL/L (98-107) 106 MMOL/L (98-107) Carbon Dioxide Level 21 MMOL/L (21-32) 25 MMOL/L (21-32) Anion Gap 12 mmol/L (5-15) 10 mmol/L (5-15) Blood Urea Nitrogen 91 mg/dL (7-18) 73 mg/dL (7-18) Creatinine 5.9 MG/DL (0.55-1.30) 4.8 MG/DL (0.55-1.30) Estimat Glomerular Filtration Rate mL/min (>60) mL/min (>60) Glucose Level 168 MG/DL (74-106) 191 MG/DL (74-106) Uric Acid 6.2 MG/DL (2.6-7.2) 5.7 MG/DL (2.6-7.2) Calcium Level 7.0 MG/DL (8.5-10.1) 7.3 MG/DL (8.5-10.1) Phosphorus Level 4.6 MG/DL (2.5-4.9) 4.0 MG/DL (2.5-4.9) Magnesium Level 2.2 MG/DL (1.8-2.4) 2.3 MG/DL (1.8-2.4) Total Bilirubin 0.3 MG/DL (0.2-1.0) 0.3 MG/DL (0.2-1.0) Aspartate Amino Transf (AST/SGOT) 29 U/L (15-37) 29 U/L (15-37) Alanine Aminotransferase (ALT/SGPT) 26 U/L (12-78) 29 U/L (12-78) Alkaline Phosphatase 57 U/L (46-116) 57 U/L (46-116) C-Reactive Protein, Quantitative 1.1 mg/dL (0.00-0.90) 0.7 mg/dL (0.00-0.90) Pro-B-Type Natriuretic Peptide 89715 pg/mL (0-125) 9053 pg/mL (0-125) Total Protein 4.8 G/DL (6.4-8.2) 5.0 G/DL (6.4-8.2) Albumin 1.6 G/DL (3.4-5.0) 1.6 G/DL (3.4-5.0) Globulin 3.2 g/dL 3.4 g/dL Albumin/Globulin Ratio 0.5 (1.0-2.7) 0.5 (1.0-2.7) Random Vancomycin Level 15.5 ug/mL Height (Feet): 5 Height (Inches): 7.00 Weight (Pounds): 212 Objective PE: Vitals: reviewed General Appearance: NAD HEENT: normocephalic, atraumatic++ ngt Neck: non-tender, normal alignment Respiratory/Chest: VENT++ Cardiovascular/Chest: normal peripheral pulses, normal rate Abdomen: normal bowel sounds, soft, nontender Extremities: normal range of motion ++ right arm swelling Suleman Addison MD Jun 10, 2019 10:13
--- NOTE | 2019-06-10 11:56 | Nephrology Progress Note ---
Assessment/Plan Problem List: (1) Renal failure (ARF), acute on chronic Assessment: Cr rising (2) Cellulitis of upper extremity (3) A-fib (4) Pneumonia (5) UTI (urinary tract infection) (6) Anemia Assessment: worsened (7) Hypothyroidism Assessment - KIMO on CKD - Urinary tract infection. - Anemia- - Dehydration. - Cellulitis of Upper extremity - HTN Plan no labs today dialysis 06/10 currently in process DC Midodrine DC IV IV Calcium and PO Vit D Transfuse one unit PRBcs in ICU- intubated BP meds and Mind altering meds discontinued On midodrine check vanco levels - hold vanco doses previously: Per cardiology Anemia kumari- Avoid Nephrotoxics Per ID Allow CHANDA inhibitor to continue as long as renal function does not worsen. PICC line has been removed. CXR: Increased right pleural effusion and similar left pleural effusion. Increased interstitial and hazy opacities throughout the lungs. Subjective ROS Limited/Unobtainable: Yes Objective Objective Last 24 Hour Vital Signs Date Time Temp Pulse Resp B/P (MAP) Pulse Ox O2 Delivery O2 Flow Rate FiO2 06/10/19 11:22 71 22 40 06/10/19 11:00 87 17 127/66 (86) 99 06/10/19 10:15 91 40 136/67 (90) 96 06/10/19 10:00 111 16 193/89 (123) 95 06/10/19 09:40 83 22 161/72 (101) 98 06/10/19 09:08 77 27 40 06/10/19 09:00 59 14 145/66 (92) 100 06/10/19 08:00 99.4 77 24 143/66 (91) 98 06/10/19 08:00 Mechanical Ventilator 06/10/19 08:00 40 06/10/19 07:33 79 26 40 40 06/10/19 07:28 71 06/10/19 07:00 105 41 166/76 (106) 96 06/10/19 06:30 98 16 06/10/19 06:00 95 20 154/73 (100) 98 06/10/19 05:00 97.9 91 22 158/73 (101) 96 06/10/19 04:51 90 25 40 06/10/19 04:00 Mechanical Ventilator 06/10/19 04:00 77 06/10/19 04:00 40 06/10/19 04:00 77 20 144/77 (99) 96 06/10/19 03:00 88 27 159/70 (99) 95 06/10/19 02:45 86 21 40 06/10/19 02:00 76 21 155/80 (105) 98 06/10/19 01:00 95 21 171/73 (105) 95 06/10/19 00:59 97 22 40 06/10/19 00:00 40 06/10/19 00:00 81 06/10/19 00:00 Mechanical Ventilator 06/10/19 00:00 98.8 95 21 165/78 (107) 95 06/09/19 23:00 97 21 155/76 (102) 95 06/09/19 22:32 93 20 40 06/09/19 22:00 97 22 162/83 (109) 95 06/09/19 21:02 102 25 40 06/09/19 21:00 95 22 168/78 (108) 95 06/09/19 20:00 82 06/09/19 20:00 Mechanical Ventilator 06/09/19 20:00 40 06/09/19 20:00 98.9 97 22 162/83 (109) 97 06/09/19 19:04 103 28 40 06/09/19 19:00 97.7 103 0 177/83 (114) 97 06/09/19 18:00 100 20 164/73 (103) 98 06/09/19 17:18 86 27 45 06/09/19 17:00 87 16 171/75 (107) 98 06/09/19 16:00 Mechanical Ventilator 06/09/19 16:00 45 06/09/19 16:00 99.8 84 10 145/61 (89) 96 06/09/19 15:40 80 06/09/19 15:30 167 155/94 06/09/19 15:27 170 22 45 06/09/19 15:20 169 06/09/19 15:00 104 31 143/80 (101) 95 06/09/19 14:00 90 25 165/79 (107) 98 06/09/19 13:27 98 29 45 06/09/19 13:00 101 21 153/75 (101) 96 06/09/19 12:00 84 06/09/19 12:00 99.5 68 6 137/76 (96 96 06/09/19 12:00 45 06/09/19 12:00 Mechanical Ventilator Intake and Output 06/09/19 06/10/19 19:00 07:00 Intake Total 720 ml 590 ml Output Total 260 ml 30 ml Balance 460 ml 560 ml Free Water 240 ml IV Total 110 ml Tube Feeding 480 ml 480 ml Output Urine Total 110 ml 30 ml Stool Total 150 ml # Bowel Movements 100 Height (Feet): 5 Height (Inches): 7.00 Weight (Pounds): 212 General Appearance: no apparent distress EENT: other - on vent Cardiovascular: arrhythmia Respiratory/Chest: decreased breath sounds Abdomen: distended Objective no change Reinier Mera MD Jun 10, 2019 11:56
--- NOTE | 2019-06-10 12:20 | Pulmonology Progress Note ---
Assessment/Plan Assessment/Plan IMPRESSION AND PLAN: 1. Pneumonia. Bilateral upper lobe. 2. Cellulitis. 3. History of COPD. 4. Hypertension. 5. Afib with RVR; rate controlled 6. Respiratory failure; on vent DISCUSSION: 1. Intubated; on AC mode; May need to be trached; notified Dr Logan 2. Agree with present management and care. 3. Continue medications and HHN with atrovent only 4. Check stool for C diff Arsen Whittaker M.D. Subjective Interval Events: On HD; no new events Constitutional: Reports: no symptoms HEENT: Repors: no symptoms Respiratory: Reports: no symptoms Cardiovascular: Reports: no symptoms Gastrointestinal/Abdominal: Reports: no symptoms Genitourinary: Reports: no symptoms Neurologic: Reports: no symptoms Allergies: Coded Allergies: No Known Allergies (Unverified , 05/18/19) Objective Last 24 Hour Vital Signs Date Time Temp Pulse Resp B/P (MAP) Pulse Ox O2 Delivery O2 Flow Rate FiO2 06/10/19 11:22 71 22 40 06/10/19 11:00 87 17 127/66 (86) 99 06/10/19 10:15 91 40 136/67 (90) 96 06/10/19 10:00 111 16 193/89 (123) 95 06/10/19 09:40 83 22 161/72 (101) 98 06/10/19 09:08 77 27 40 06/10/19 09:00 59 14 145/66 (92) 100 06/10/19 08:00 99.4 77 24 143/66 (91) 98 06/10/19 08:00 Mechanical Ventilator 06/10/19 08:00 40 06/10/19 07:33 79 26 40 40 06/10/19 07:28 71 06/10/19 07:00 105 41 166/76 (106) 96 06/10/19 06:30 98 16 06/10/19 06:00 95 20 154/73 (100) 98 06/10/19 05:00 97.9 91 22 158/73 (101) 96 1/14/20 04:51 90 25 40 06/10/19 04:00 Mechanical Ventilator 06/10/19 04:00 77 06/10/19 04:00 40 06/10/19 04:00 77 20 144/77 (99) 96 06/10/19 03:00 88 27 159/70 (99) 95 06/10/19 02:45 86 21 40 06/10/19 02:00 76 21 155/80 (105) 98 06/10/19 01:00 95 21 171/73 (105) 95 06/10/19 00:59 97 22 40 06/10/19 00:00 40 06/10/19 00:00 81 06/10/19 00:00 Mechanical Ventilator 06/10/19 00:00 98.8 95 21 165/78 (107) 95 06/09/19 23:00 97 21 155/76 (102) 95 06/09/19 22:32 93 20 40 06/09/19 22:00 97 22 162/83 (109) 95 06/09/19 21:02 102 25 40 06/09/19 21:00 95 22 168/78 (108) 95 06/09/19 20:00 82 06/09/19 20:00 Mechanical Ventilator 06/09/19 20:00 40 06/09/19 20:00 98.9 97 22 162/83 (109) 97 06/09/19 19:04 103 28 40 06/09/19 19:00 97.7 103 0 177/83 (114) 97 06/09/19 18:00 100 20 164/73 (103) 98 06/09/19 17:18 86 27 45 06/09/19 17:00 87 16 171/75 (107) 98 06/09/19 16:00 Mechanical Ventilator 06/09/19 16:00 45 06/09/19 16:00 99.8 84 10 145/61 (89) 96 06/09/19 15:40 80 06/09/19 15:30 167 155/94 06/09/19 15:27 170 22 45 06/09/19 15:20 169 06/09/19 15:00 104 31 143/80 (101) 95 06/09/19 14:00 90 25 165/79 (107) 98 06/09/19 13:27 98 29 45 06/09/19 13:00 101 21 153/75 (101) 96 Intake and Output 06/09/19 06/10/19 19:00 07:00 Intake Total 720 ml 590 ml Output Total 260 ml 30 ml Balance 460 ml 560 ml Free Water 240 ml IV Total 110 ml Tube Feeding 480 ml 480 ml Output Urine Total 110 ml 30 ml Stool Total 150 ml # Bowel Movements 100 General Appearance: no acute distress HEENT: normocephalic Respiratory/Chest: chest wall non-tender, lungs clear Cardiovascular: normal peripheral pulses Abdomen: normal bowel sounds Microbiology Date/Time Source Procedure Growth Status 06/07/19 16:45 Stool Clostridium difficile Toxin Assay - Final Complete Current Medications Medications (Trade) Dose Ordered Sig/Phillip Route PRN Reason Start Time Stop Time Status Last Admin Dose Admin Acetaminophen (Tylenol) 500 mg Q4H PRN GT Mild Pain/Temp > 100.5 05/27/19 07:45 06/19/19 20:29 06/06/19 13:52 Amiodarone HCl (Cordarone) 200 mg DAILY ORAL 06/07/19 16:15 07/07/19 16:14 06/10/19 08:17 Apixaban (Eliquis) 2.5 mg Q12HR ORAL 06/08/19 21:00 07/08/19 20:59 06/10/19 08:16 Chlorhexidine Gluconate (Reina-Hex 2%) 1 applic DAILY@2000 TOPIC 05/27/19 20:00 06/26/19 19:59 06/09/19 20:26 Daptomycin 500 mg/ Sodium Chloride 55 ml @ 100 mls/hr Q48H IV 05/29/19 13:00 06/17/19 12:59 06/08/19 13:52 Ipratropium [place] (Atrovent) 500 mcg Q4H PRN HHN Shortness of Breath 06/08/19 10:00 06/13/19 09:59 06/08/19 12:37 Lansoprazole (Prevacid) 30 mg BID NG 06/06/19 18:00 07/06/19 17:59 06/10/19 08:16 Lorazepam (Ativan 2mg/ml 1ml) 1 mg Q4H PRN IV For Anxiety/Agitation 06/08/19 10:00 06/15/19 09:59 06/10/19 10:09 Methylprednisolone Sodium Succinate (Solu-MEDROL) 60 mg EVERY 12 HOURS IVP 06/04/19 21:00 07/04/19 20:59 06/10/19 08:16 Metoprolol Tartrate (Lopressor) 5 mg Q5MIN X 3 IVP 06/07/19 16:15 07/07/19 16:14 06/09/19 15:30 Norepinephrine Bitartrate 4 mg/ Dextrose 250 ml @ 0 mls/hr Q24H IV 05/29/19 19:20 06/28/19 19:19 05/30/19 22:45 Vitamin D (Vitamin D) 5,000 intlu DAILY GT 06/07/19 13:00 07/07/19 12:59 06/10/19 08:16 Arsen Whittaker MD Jun 10, 2019 12:20
--- NOTE | 2019-06-10 12:42 | General Progress Note ---
Assessment/Plan Problem List: (1) Dysphagia ICD Codes: R13.10 - Dysphagia, unspecified SNOMED: 32814497, 632090839 (2) Anemia ICD Codes: D64.9 - Anemia, unspecified SNOMED: 300322092 (3) Hypothyroidism ICD Codes: E03.9 - Hypothyroidism, unspecified SNOMED: 76789255 (4) Thrombus ICD Codes: I82.90 - Acute embolism and thrombosis of unspecified vein SNOMED: 46276324, 33786023, 297192400, 272506269 (5) A-fib ICD Codes: I48.91 - Unspecified atrial fibrillation SNOMED: 55386595 Status: progressing, unchanged, deteriorating Assessment/Plan: intubated in ICU NGTF fu pulm fu labs abx per ID on HD poor prognosis s/p one unit PRBC PEG if needed Subjective ROS Limited/Unobtainable: No Allergies: Coded Allergies: No Known Allergies (Unverified , 05/18/19) Subjective coded today Objective Last 24 Hour Vital Signs Date Time Temp Pulse Resp B/P (MAP) Pulse Ox O2 Delivery O2 Flow Rate FiO2 06/10/19 12:30 70 16 122/54 (76) 98 06/10/19 12:15 73 15 140/60 (86) 98 06/10/19 12:00 40 06/10/19 12:00 99.2 74 16 111/60 (77) 99 06/10/19 12:00 Mechanical Ventilator 06/10/19 11:22 71 22 40 06/10/19 11:00 87 17 127/66 (86) 99 06/10/19 10:15 91 40 136/67 (90) 96 06/10/19 10:00 111 16 193/89 (123) 95 06/10/19 09:40 83 22 161/72 (101) 98 06/10/19 09:08 77 27 40 06/10/19 09:00 59 14 145/66 (92) 100 06/10/19 08:00 99.4 77 24 143/66 (91) 98 06/10/19 08:00 Mechanical Ventilator 06/10/19 08:00 40 06/10/19 07:33 79 26 40 40 06/10/19 07:28 71 06/10/19 07:00 105 41 166/76 (106) 96 06/10/19 06:30 98 16 06/10/19 06:00 95 20 154/73 (100) 98 06/10/19 05:00 97.9 91 22 158/73 (101) 96 06/10/19 04:51 90 25 40 06/10/19 04:00 Mechanical Ventilator 06/10/19 04:00 77 06/10/19 04:00 40 06/10/19 04:00 77 20 144/77 (99) 96 06/10/19 03:00 88 27 159/70 (99) 95 06/10/19 02:45 86 21 40 06/10/19 02:00 76 21 155/80 (105) 98 06/10/19 01:00 95 21 171/73 (105) 95 06/10/19 00:59 97 22 40 06/10/19 00:00 40 06/10/19 00:00 81 06/10/19 00:00 Mechanical Ventilator 06/10/19 00:00 98.8 95 21 165/78 (107) 95 06/09/19 23:00 97 21 155/76 (102) 95 06/09/19 22:32 93 20 40 06/09/19 22:00 97 22 162/83 (109) 95 06/09/19 21:02 102 25 40 06/09/19 21:00 95 22 168/78 (108) 95 06/09/19 20:00 82 06/09/19 20:00 Mechanical Ventilator 06/09/19 20:00 40 06/09/19 20:00 98.9 97 22 162/83 (109) 97 06/09/19 19:04 103 28 40 06/09/19 19:00 97.7 103 0 177/83 (114) 97 06/09/19 18:00 100 20 164/73 (103) 98 06/09/19 17:18 86 27 45 06/09/19 17:00 87 16 171/75 (107) 98 06/09/19 16:00 Mechanical Ventilator 06/09/19 16:00 45 06/09/19 16:00 99.8 84 10 145/61 (89) 96 06/09/19 15:40 80 06/09/19 15:30 167 155/94 06/09/19 15:27 170 22 45 06/09/19 15:20 169 06/09/19 15:00 104 31 143/80 (101) 95 06/09/19 14:00 90 25 165/79 (107) 98 06/09/19 13:27 98 29 45 06/09/19 13:00 101 21 153/75 (101) 96 Intake and Output 06/09/19 06/10/19 19:00 07:00 Intake Total 720 ml 590 ml Output Total 260 ml 30 ml Balance 460 ml 560 ml Free Water 240 ml IV Total 110 ml Tube Feeding 480 ml 480 ml Output Urine Total 110 ml 30 ml Stool Total 150 ml # Bowel Movements 100 Height (Feet): 5 Height (Inches): 7.00 Weight (Pounds): 212 General Appearance: lethargic EENT: normal ENT inspection Neck: supple Cardiovascular: normal rate Respiratory/Chest: decreased breath sounds Abdomen: normal bowel sounds, non tender, soft Extremities: non-tender Valentino Lino MD Jun 10, 2019 12:42
--- NOTE | 2019-06-10 13:36 | Surgery Progress Note ---
Surgery Progress Note Subjective Additional Comments HD today with fluid off plan to try weaning after if unable over next few days will need trach Objective Last 24 Hour Vital Signs Date Time Temp Pulse Resp B/P (MAP) Pulse Ox O2 Delivery O2 Flow Rate FiO2 06/10/19 13:15 65 16 121/59 (79) 99 06/10/19 13:00 71 16 130/54 (79) 98 06/10/19 12:30 70 16 122/54 (76) 98 06/10/19 12:15 73 15 140/60 (86) 98 06/10/19 12:00 40 06/10/19 12:00 99.2 74 16 111/60 (77) 99 06/10/19 12:00 Mechanical Ventilator 06/10/19 11:24 78 06/10/19 11:22 71 22 40 06/10/19 11:00 87 17 127/66 (86) 99 06/10/19 10:15 91 40 136/67 (90) 96 06/10/19 10:00 111 16 193/89 (123) 95 06/10/19 09:40 83 22 161/72 (101) 98 06/10/19 09:08 77 27 40 06/10/19 09:00 59 14 145/66 (92) 100 06/10/19 08:00 99.4 77 24 143/66 (91) 98 06/10/19 08:00 Mechanical Ventilator 06/10/19 08:00 40 06/10/19 07:33 79 26 40 40 06/10/19 07:28 71 06/10/19 07:00 105 41 166/76 (106) 96 06/10/19 06:30 98 16 06/10/19 06:00 95 20 154/73 (100) 98 06/10/19 05:00 97.9 91 22 158/73 (101) 96 06/10/19 04:51 90 25 40 06/10/19 04:00 Mechanical Ventilator 06/10/19 04:00 77 06/10/19 04:00 40 06/10/19 04:00 77 20 144/77 (99) 96 06/10/19 03:00 88 27 159/70 (99) 95 06/10/19 02:45 86 21 40 06/10/19 02:00 76 21 155/80 (105) 98 06/10/19 01:00 95 21 171/73 (105) 95 06/10/19 00:59 97 22 40 06/10/19 00:00 40 06/10/19 00:00 81 06/10/19 00:00 Mechanical Ventilator 06/10/19 00:00 98.8 95 21 165/78 (107) 95 06/09/19 23:00 97 21 155/76 (102) 95 06/09/19 22:32 93 20 40 06/09/19 22:00 97 22 162/83 (109) 95 06/09/19 21:02 102 25 40 06/09/19 21:00 95 22 168/78 (108) 95 06/09/19 20:00 82 06/09/19 20:00 Mechanical Ventilator 06/09/19 20:00 40 06/09/19 20:00 98.9 97 22 162/83 (109) 97 06/09/19 19:04 103 28 40 06/09/19 19:00 97.7 103 0 177/83 (114) 97 06/09/19 18:00 100 20 164/73 (103) 98 06/09/19 17:18 86 27 45 06/09/19 17:00 87 16 171/75 (107) 98 06/09/19 16:00 Mechanical Ventilator 06/09/19 16:00 45 06/09/19 16:00 99.8 84 10 145/61 (89) 96 06/09/19 15:40 80 06/09/19 15:30 167 155/94 06/09/19 15:27 170 22 45 06/09/19 15:20 169 06/09/19 15:00 104 31 143/80 (101) 95 06/09/19 14:00 90 25 165/79 (107) 98 I&O Intake and Output 06/09/19 06/10/19 19:00 07:00 Intake Total 720 ml 590 ml Output Total 260 ml 30 ml Balance 460 ml 560 ml Free Water 240 ml IV Total 110 ml Tube Feeding 480 ml 480 ml Output Urine Total 110 ml 30 ml Stool Total 150 ml # Bowel Movements 100 Dressing: other Wound: other Drains: other Cardiovascular: RSR Respiratory: decreased breath sounds Abdomen: soft, present bowel sounds Extremities: no cyanosis, other Plan Problems: (1) Cellulitis of upper extremity Assessment & Plan: 84M with RUE cellulitis, edema, erythema. no drainage. has RUE picc line recommend removal of picc. removed at bedside by myself on 05/18. pressure held, hemostasis noted, dressings applied. cath tip sent for cultures DVT duplex studies with acute thrombus IV Abx as per ID UA pending Cx results keep RUE elevated on pillows okay for diet AM labs anticoagulation off load pressure for dti noted cellulitis and edema improved deteriorated intubated on vent support likely respiratory insufficiency labs ordered wean vent okay for tube feeds via ng - cont as tolerated wean vent am labs HD as per renal now with right IJ Temp HD cath will follow with recs thank you (2) Cellulitis Assessment & Plan: Pt presented on admission with reabsorbing blister lateral R heel. Base of injury indurated with delineated margins(L)4cm x (W)3cm.Non- blanching erythema Sacrum ,R and L buttocks(L)8.5cm x (W)9cm, with a partial thickness pressure injury noted to L buttocks. Base of wound is moist and viable (L)2.3cm x (W)3cm. Area around wound tender when minimally palpated. Pt noted to be wearing splint L foot. Per pt he fractured foot a few weeks ago. Splint removed to assess skin integrity. L heel and malleoli are pink and blanchable.Cavilon Skin Barrier applied to L heel and malleoli and each area covered with Optifoam drsg. Splint reapplied. No other skin concerns noted. unchanged Partial Thickness pressure injury L buttocks resolved . Non-blanching erythema without induration noted to Sacrum,R and L buttocks. (L)8cm x (W)9cm. Scrotum is grossly enlarged and is erythematous and macerated. Penile shaft is grossly swollen .Pt noted to have a partially opened blood blister with 25% biofilm at base of shaft of penis.(L)4.5cm x (W)2.5cm. Bilat groin, medial /posterior aspects of both upper thighs are erythematous and denuded. R lower ext edematous. R heel blister reabsorbed. Non--blanching erythema without induration noted to R heel. Splint removed from L foot. Optifoam drsgs removed from malleoli and heel. Pt noted to have developed several DTPI's despite having Optifoam drsgs. DTPI noted to L achilles . Base of wound is purple and fluctuant (L)0.6cm x (W) 2.7cm.DTPI noted to medial L malleolus(L)0.2cm x (W)0.3cm.Base of wound is purple with marginal erythema. DTPI noted to dorsal L foot. Base of wound is purple with marginal erythema along borders (L)0.9cm x (W)0.5cm.L heel is boggy with non-blanching erythema. Cavilon Skin Barrier applied to affected areas on L foot . Dorsal L foot ,Achilles .R and L malleoli and L heel each covered with Optifoam drsg. Non-blanching erythema without induration noted to lateral L tibia. At plantar aspect of L hallux small dry eschar noted. No erythema or fluctuance periwound. (L)0.5cm x (W)0.4cm. IN addition to Optifoam drsgs placed over each bony prominence of L foot ABD pads placed over dorsal and plantar L foot , Abd pads aligned along L tibia. Splint realigned to L foot Wrapped loosely with Kerlix then wrapped loosely with [place] wrap. L foot floated off mattress with pillow. Tx.Plan: Apply Cavilon to Dorsal L foot. L achilles .Medial/Lateral Malleoli L Foot and L heel. Cover each site with Optifoam drsg. Change every 7 days and prn. Apply Cavilon Plantar L foot. Cover with Optifoam drsg. Change every 7 days and prn. Apply Moisture Barrier Paste to sacrum. Cover with Optifoam drsg. Changee very 7 days and prn. Apply Cavilon Skin Barrier to Both heels. Cover each heel with Optifoam drsg. Change every 7 days and prn. Cleanse wound Shaft of penis with saline. Apply Moisture Barrier Paste Daily and prn. Apply Moisture Barrier Paste to Bilat groin, Scrotum, Medial/Posterior aspects of both upper thighs with each perineal care. Reposition at least every 2hours or as tolerated. Off-load heels with pillows. APM/LA L Mattress overlay. Bennett Logan Jun 10, 2019 13:36
[2019-06-10] MEDS: DAPTOmycin 500 MG in NS 55 ML IV SCH (13:37)
--- NOTE | 2019-06-10 16:33 | Diagnostic Imaging Report ---
Indication: Dyspnea Technique: One view of the chest Comparison: 06/05/2019 Findings: Stable satisfactory positions of endotracheal tube, left jugular central venous catheter, right jugular temporary dialysis catheter. Bilateral upper lobe interstitial opacities and volume loss are unchanged. Diffuse more acute appearing parenchymal disease throughout the left mid and lower lung are unchanged. The heart size is normal. There is a small amount of pleural fluid on the left, unchanged Impression: Unchanged, over 5 days, findings as above.
[2019-06-10] MEDS: Dyna-Hex 2% Top Sol 2oz TOPIC SCH (20:23)
--- NOTE | 2019-06-10 20:30 | General Progress Note ---
Assessment/Plan Problem List: (1) SOB (shortness of breath) ICD Codes: R06.02 - Shortness of breath SNOMED: 502657175 (2) Cellulitis ICD Codes: L03.90 - Cellulitis, unspecified SNOMED: 561419731 (3) Cellulitis of upper extremity ICD Codes: L03.119 - Cellulitis of unspecified part of limb SNOMED: 550481542 Qualifiers: Qualified Codes: L03.113 - Cellulitis of right upper limb (4) Renal insufficiency ICD Codes: N28.9 - Disorder of kidney and ureter, unspecified SNOMED: 794979933, 575262804 (5) Renal failure (ARF), acute on chronic ICD Codes: N17.9 - Acute kidney failure, unspecified; N18.9 - Chronic kidney disease, unspecified SNOMED: 910780084 (6) Anemia ICD Codes: D64.9 - Anemia, unspecified SNOMED: 348136521 (7) Hypothyroidism ICD Codes: E03.9 - Hypothyroidism, unspecified SNOMED: 98274557 (8) UTI (urinary tract infection) ICD Codes: N39.0 - Urinary tract infection, site not specified SNOMED: 59631069 Status: progressing, unchanged, deteriorating Assessment/Plan: rhonci not improving anemia reviewed chart and labs trach per pulmonary chf pna sepsis wound in lower extremity. distal fracture .ortho is already on the case lwound and le fracture Subjective ROS Limited/Unobtainable: Yes Allergies: Coded Allergies: No Known Allergies (Unverified , 05/18/19) Objective Last 24 Hour Vital Signs Date Time Temp Pulse Resp B/P (MAP) Pulse Ox O2 Delivery O2 Flow Rate FiO2 06/10/19 19:20 126/59 06/10/19 19:13 64 18 40 06/10/19 19:00 75 20 142/62 (88) 99 06/10/19 18:30 79 23 130/55 (80) 98 06/10/19 18:00 82 23 127/62 (83) 97 06/10/19 17:15 112 23 143/58 (86) 95 06/10/19 17:00 110 30 187/108 (134) 98 06/10/19 16:58 101 33 40 06/10/19 16:30 90 28 164/67 (99) 98 06/10/19 16:00 Mechanical Ventilator 1/14/20 16:00 40 06/10/19 16:00 99.7 68 15 119/57 (77) 98 06/10/19 15:34 71 06/10/19 15:30 92 28 148/69 (95) 97 06/10/19 15:22 106 21 40 06/10/19 15:00 94 24 167/68 (101) 98 06/10/19 14:00 68 15 119/50 (73) 98 06/10/19 13:27 70 16 40 06/10/19 13:15 65 16 121/59 (79) 99 06/10/19 13:00 71 16 130/54 (79) 98 06/10/19 12:30 70 16 122/54 (76) 98 06/10/19 12:15 73 15 140/60 (86) 98 06/10/19 12:00 40 06/10/19 12:00 99.2 74 16 111/60 (77) 99 06/10/19 12:00 Mechanical Ventilator 06/10/19 11:24 78 06/10/19 11:22 71 22 40 06/10/19 11:00 87 17 127/66 (86) 99 06/10/19 10:15 91 40 136/67 (90) 96 06/10/19 10:00 111 16 193/89 (123) 95 06/10/19 09:40 83 22 161/72 (101) 98 06/10/19 09:08 77 27 40 06/10/19 09:00 59 14 145/66 (92) 100 06/10/19 08:00 99.4 77 24 143/66 (91) 98 06/10/19 08:00 Mechanical Ventilator 06/10/19 08:00 40 06/10/19 07:33 79 26 40 40 06/10/19 07:28 71 06/10/19 07:00 105 41 166/76 (106) 96 06/10/19 06:30 98 16 06/10/19 06:00 95 20 154/73 (100) 98 06/10/19 05:00 97.9 91 22 158/73 (101) 96 06/10/19 04:51 90 25 40 06/10/19 04:00 Mechanical Ventilator 06/10/19 04:00 77 06/10/19 04:00 40 06/10/19 04:00 77 20 144/77 (99) 96 06/10/19 03:00 88 27 159/70 (99) 95 06/10/19 02:45 86 21 40 06/10/19 02:00 76 21 155/80 (105) 98 06/10/19 01:00 95 21 171/73 (105) 95 06/10/19 00:59 97 22 40 06/10/19 00:00 40 06/10/19 00:00 81 06/10/19 00:00 Mechanical Ventilator 06/10/19 00:00 98.8 95 21 165/78 (107) 95 06/09/19 23:00 97 21 155/76 (102) 95 06/09/19 22:32 93 20 40 06/09/19 22:00 97 22 162/83 (109) 95 06/09/19 21:02 102 25 40 06/09/19 21:00 95 22 168/78 (108) 95 Intake and Output 06/09/19 06/10/19 19:00 07:00 Intake Total 720 ml 590 ml Output Total 260 ml 30 ml Balance 460 ml 560 ml Free Water 240 ml IV Total 110 ml Tube Feeding 480 ml 480 ml Output Urine Total 110 ml 30 ml Stool Total 150 ml # Bowel Movements 100 Height (Feet): 5 Height (Inches): 7.00 Weight (Pounds): 212 General Appearance: lethargic, confused Respiratory/Chest: rhonchi - bilaterally Joslyn Wiggins MD Jun 10, 2019 20:30
--- NOTE | 2019-06-10 23:34 | Cardiology Progress Note ---
Assessment/Plan Assessment/Plan 1. SVT resolved now in SR/SB, continue amiodarone. 2. Paroxysmal atrial fibrillation now in sinus rhythm. 3. Septic shock, resolved, likely due to bilateral PNA, off midodrine. 4. Oliguric acute kidney injury, CXR shows B/L pulmonary edema, on HD. 5. Small pericardial effusion with pleural effusion, s/p HD. 6. B/L pleural effusion. 7. Acute respiratory failure, failed weaning. Subjective Subjective Sinus rhythm at rate of 69. Intubated. Objective Last 24 Hour Vital Signs Date Time Temp Pulse Resp B/P (MAP) Pulse Ox O2 Delivery O2 Flow Rate FiO2 06/10/19 21:10 69 18 40 06/10/19 19:20 126/59 06/10/19 19:13 64 18 40 06/10/19 19:00 75 20 142/62 (88) 99 06/10/19 18:30 79 23 130/55 (80) 98 06/10/19 18:00 82 23 127/62 (83) 97 06/10/19 17:15 112 23 143/58 (86) 95 06/10/19 17:00 110 30 187/108 (134) 98 06/10/19 16:58 101 33 40 06/10/19 16:30 90 28 164/67 (99) 98 06/10/19 16:00 Mechanical Ventilator 06/10/19 16:00 40 06/10/19 16:00 99.7 68 15 119/57 (77) 98 06/10/19 15:34 71 06/10/19 15:30 92 28 148/69 (95) 97 06/10/19 15:22 106 21 40 06/10/19 15:00 94 24 167/68 (101) 98 06/10/19 14:00 68 15 119/50 (73) 98 06/10/19 13:27 70 16 40 06/10/19 13:15 65 16 121/59 (79) 99 06/10/19 13:00 71 16 130/54 (79) 98 06/10/19 12:30 70 16 122/54 (76) 98 06/10/19 12:15 73 15 140/60 (86) 98 06/10/19 12:00 40 06/10/19 12:00 99.2 74 16 111/60 (77) 99 06/10/19 12:00 Mechanical Ventilator 06/10/19 11:24 78 06/10/19 11:22 71 22 40 06/10/19 11:00 87 17 127/66 (86) 99 06/10/19 10:15 91 40 136/67 (90) 96 06/10/19 10:00 111 16 193/89 (123) 95 06/10/19 09:40 83 22 161/72 (101) 98 06/10/19 09:08 77 27 40 06/10/19 09:00 59 14 145/66 (92) 100 06/10/19 08:00 99.4 77 24 143/66 (91) 98 06/10/19 08:00 Mechanical Ventilator 06/10/19 08:00 40 06/10/19 07:33 79 26 40 40 06/10/19 07:28 71 06/10/19 07:00 105 41 166/76 (106) 96 06/10/19 06:30 98 16 06/10/19 06:00 95 20 154/73 (100) 98 06/10/19 05:00 97.9 91 22 158/73 (101) 96 06/10/19 04:51 90 25 40 06/10/19 04:00 Mechanical Ventilator 06/10/19 04:00 77 06/10/19 04:00 40 06/10/19 04:00 77 20 144/77 (99) 96 06/10/19 03:00 88 27 159/70 (99) 95 06/10/19 02:45 86 21 40 06/10/19 02:00 76 21 155/80 (105) 98 06/10/19 01:00 95 21 171/73 (105) 95 06/10/19 00:59 97 22 40 06/10/19 00:00 40 06/10/19 00:00 81 06/10/19 00:00 Mechanical Ventilator 06/10/19 00:00 98.8 95 21 165/78 (107) 95 Intake and Output 06/09/19 06/10/19 19:00 07:00 Intake Total 720 ml 590 ml Output Total 260 ml 30 ml Balance 460 ml 560 ml Free Water 240 ml IV Total 110 ml Tube Feeding 480 ml 480 ml Output Urine Total 110 ml 30 ml Stool Total 150 ml # Bowel Movements 100 2D Echo: EF 65%,Mod AR,Elevated RAP, RVSP 30,Small pericardial eff, pleural effusion Objective HEENT: Atraumatic and normocephalic. Anicteric. Pupils are equal, round, and reactive to light and accommodation. Extraocular muscles intact. NECK: JVP less than 5 cm. No carotid bruit. Carotid upstroke is 2+ bilaterally. CARDIOVASCULAR: Normal S1, S2. Regular rate and rhythm. No murmurs, gallops, or rubs. PMI is at fourth intercostal space in the midclavicular line. LUNGS: Diminished both bases. ABDOMEN: Soft, nontender, and nondistended. No hepatosplenomegaly. Positive bowel sounds. EXTREMITIES: No evidence of edema, clubbing, or cyanosis. Del Garcia MD Jun 10, 2019 23:34
[2019-06-11] VITALS (24 sets, daily range): BP systolic 117–186; BP diastolic 50–90
[2019-06-11 06:11] LABS: HEMOGLOBIN 7.8 G/DL (14.2-18.0); MEAN CORPUSCULAR VOLUME 91 FL (80-99); PLATELET COUNT 165 K/UL (150-450); RED BLOOD COUNT 2.53 M/UL (4.70-6.10); RED CELL DISTRIBUTION WIDTH 15.5 % (11.6-14.8); WHITE BLOOD COUNT 10.4 K/UL (4.8-10.8)
[2019-06-11 06:42] LABS: ALANINE AMINOTRANSFERASE 55 U/L (12-78); ALBUMIN 1.5 G/DL (3.4-5.0); ALBUMIN/GLOBULIN RATIO 0.5 (1.0-2.7); ALKALINE PHOSPHATASE 68 U/L (46-116); ANION GAP 9 mmol/L (5-15); ASPARTATE AMINO TRANSFERASE 52 U/L (15-37); BILIRUBIN,TOTAL 0.3 MG/DL (0.2-1.0); BLOOD UREA NITROGEN 69 mg/dL (7-18); CALCIUM 7.2 MG/DL (8.5-10.1); CARBON DIOXIDE 27 MMOL/L (21-32); CHLORIDE 107 MMOL/L (98-107); CREATININE 4.1 MG/DL (0.55-1.30); PHOSPHORUS 3.6 MG/DL (2.5-4.9); POTASSIUM 3.4 MMOL/L (3.5-5.1); SODIUM 143 MMOL/L (136-145)
--- NOTE | 2019-06-11 06:59 | Hematology/Onc Progress Note ---
Assessment/Plan Assessment/Plan # Anemia of chronic disease due to underlying chronic medical issues, multifactorial v Gi bleed --> Anemia workup has been reviewed, rule out gi bleed --> No evidence of hemolysis is noted, peripheral smear has been reviewed. --> Hgb goal >7. Transfuse prn. --> Epogen or iron at this time is not particularly indicated --> Medications have been reviewed --> low threshold for gi evaluation in case has occult + --> hgb trend: 9.3-->9.7-->8.1-->7.6-->8-->9.4-->9.2->7.5-->9.3-->8-->8.1-->8.6- ->7.8 --> transf 05/28/19 with 1 unit prbc, 1 unit on 06/03 --> transfusion is a emergency, no family, no poa, is okay to transfuse # Right upper arm extremity axillary vein dvt --> agree to continue eliquis ONCE bleeding resolved --> continue for total of minimum of 3 months --> rescan arm in 3 mo # Thrombocytopenia is due to infection, i.e. cellulitis of upper extremity, likely picc line infection --> as per id on ax --> picc off --> levoflox/vanc-->zosyn/vanc--> zosyn-->dapto/zosyn --> plt trend 208-->132-->146k-->159-->217-->211 # Respiratory failure s/p vent --> has been failing weaning --> trach as per Desmond Whittaker # Renal insufficiency --> per Dr. Mera # Pneumonia --> abx per id # Dehydration. --> goal of euvolemia # Paroxysmal Atrial fibrillation with rapid ventricular response was on amiodarone gtt, now in sinus rhythm. --> per cards On PO amiodarone 200 bid, Lopressor 25 bid # Dysphagia with ng tube # Dvt ppx eliquis--> continued The timing of this note does not necessarily reflect the time of the patient was seen. Greatly appreciate consultation. Subjective Constitutional: Denies: no symptoms, chills, fever, malaise, weakness, other HEENT: Denies: no symptoms, eye pain, blurred vision, tearing, double vision, ear pain, ear discharge, nose pain, nose congestion, throat pain, throat swelling, mouth pain, mouth swelling, other Cardiovascular: Denies: no symptoms, chest pain, edema, irregular heart rate, lightheadedness, palpitations, syncope, other Gastrointestinal/Abdominal: Denies: no symptoms, abdomen distended, abdominal pain, black stools, tarry stools, blood in stool, constipated, diarrhea, difficulty swallowing, nausea, poor appetite, poor fluid intake, rectal bleeding , vomiting, other Genitourinary: Denies: no symptoms, burning, discharge, frequency, flank pain, hematuria, incontinence, pain, urgency, other Allergies: Coded Allergies: No Known Allergies (Unverified , 05/18/19) Subjective 05/24: awake and alert, v mask, labs reviewed, apixaban 05/25: as per gi, ngt and eliquis tolerated 05/26: pending clearance but still with ng and nonrebreather 05/27: hypoxic yesterday, deteriorated, coded, now intubated, icu, labs noted 05/28: icu, levophed gtt, hgb 7.6, repeat cbc 05/29: remains in the icu, given prbc last night, no bleeding 05/30: no events, no bleeding, ++ fredo and on pressor 05/31: intubated, bp better on pressor, no bleeding, coag ordered 06/02: reamins ill appearing, on vent, labs noted, on vent, poorly responsive 06/03: no events, no bleeding, labs noted, dw surgery, and Rn, monitoring plt 06/04: tolerating tube feeds, labs noted, in the icu 06/05: restraints, cxr unchanged, anticoagulants on hold until further notice 06/06: no events, no bleeding, no night sweats, no bleeding 06/08: icu, unable to wean per resp, apixaban restarted, labs reviewed 06/09: minimally responsive, on vent and gt feeds, no bleeding 06/10: no acute events, failed to wean, hd for today, h/h stable 06/11: remains altered, may need trach, coags ordered, no bleeding currently Objective Objective Current Medications Medications (Trade) Dose Ordered Sig/Phillip Route PRN Reason Start Time Stop Time Status Last Admin Dose Admin Acetaminophen (Tylenol) 500 mg Q4H PRN GT Mild Pain/Temp > 100.5 05/27/19 07:45 06/19/19 20:29 06/06/19 13:52 Amiodarone HCl (Cordarone) 200 mg DAILY ORAL 06/07/19 16:15 07/07/19 16:14 06/10/19 08:17 Apixaban (Eliquis) 2.5 mg Q12HR ORAL 06/08/19 21:00 07/08/19 20:59 06/10/19 21:20 Chlorhexidine Gluconate (Reina-Hex 2%) 1 applic DAILY@2000 TOPIC 05/27/19 20:00 06/26/19 19:59 06/10/19 20:23 Daptomycin 500 mg/ Sodium Chloride 55 ml @ 100 mls/hr Q48H IV 05/29/19 13:00 06/23/19 23:59 06/10/19 13:37 Ipratropium Arrington (Atrovent) 500 mcg Q4H PRN HHN Shortness of Breath 06/08/19 10:00 06/13/19 09:59 06/08/19 12:37 Lansoprazole (Prevacid) 30 mg BID NG 06/06/19 18:00 07/06/19 17:59 06/10/19 17:13 Lorazepam (Ativan 2mg/ml 1ml) 1 mg Q4H PRN IV For Anxiety/Agitation 06/08/19 10:00 06/15/19 09:59 06/10/19 17:13 Methylprednisolone Sodium Succinate (Solu-MEDROL) 60 mg EVERY 12 HOURS IVP 06/04/19 21:00 07/04/19 20:59 06/10/19 21:20 Metoprolol Tartrate (Lopressor) 5 mg Q5MIN X 3 IVP 06/07/19 16:15 07/07/19 16:14 06/09/19 15:30 Norepinephrine Bitartrate 4 mg/ Dextrose 250 ml @ 0 mls/hr Q24H IV 05/29/19 19:20 06/28/19 19:19 05/30/19 22:45 Vitamin D (Vitamin D) 5,000 intlu DAILY GT 06/07/19 13:00 07/07/19 12:59 06/10/19 08:16 Last 24 Hour Vital Signs Date Time Temp Pulse Resp B/P (MAP) Pulse Ox O2 Delivery O2 Flow Rate FiO2 06/11/19 06:00 82 16 152/69 (96) 97 06/11/19 05:02 81 24 40 06/11/19 05:00 84 15 168/69 (102) 97 06/11/19 04:00 Mechanical Ventilator 06/11/19 04:00 98.8 84 15 149/67 (94) 97 06/11/19 04:00 40 06/11/19 04:00 77 06/11/19 03:24 67 19 40 06/11/19 03:00 84 16 157/75 (102) 97 06/11/19 02:00 86 16 157/75 (102) 96 06/11/19 01:00 70 15 117/50 (72) 97 06/11/19 00:41 65 18 40 06/11/19 00:00 98.8 77 12 143/63 (89) 98 06/11/19 00:00 40 06/11/19 00:00 70 06/11/19 00:00 Mechanical Ventilator 06/10/19 23:00 86 9 151/64 (93) 98 06/10/19 22:00 83 24 141/57 (85) 98 06/10/19 21:10 69 18 40 06/10/19 21:00 78 5 134/51 (78) 99 06/10/19 20:30 65 7 126/58 (80) 100 06/10/19 20:15 65 14 126/59 (81) 99 06/10/19 20:00 40 06/10/19 20:00 Mechanical Ventilator 06/10/19 20:00 99.0 66 17 124/51 (75) 98 06/10/19 20:00 70 06/10/19 19:20 126/59 06/10/19 19:13 64 18 40 06/10/19 19:00 75 20 142/62 (88) 99 06/10/19 18:30 79 23 130/55 (80) 98 06/10/19 18:00 82 23 127/62 (83) 97 06/10/19 17:15 112 23 143/58 (86) 95 06/10/19 17:00 110 30 187/108 (134) 98 06/10/19 16:58 101 33 40 06/10/19 16:30 90 28 164/67 (99) 98 06/10/19 16:00 Mechanical Ventilator 06/10/19 16:00 40 06/10/19 16:00 99.7 68 15 119/57 (77) 98 06/10/19 15:34 71 06/10/19 15:30 92 28 148/69 (95) 97 06/10/19 15:22 106 21 40 06/10/19 15:00 94 24 167/68 (101) 98 06/10/19 14:00 68 15 119/50 (73) 98 06/10/19 13:27 70 16 40 06/10/19 13:15 65 16 121/59 (79) 99 06/10/19 13:00 71 16 130/54 (79) 98 06/10/19 12:30 70 16 122/54 (76) 98 06/10/19 12:15 73 15 140/60 (86) 98 06/10/19 12:00 40 06/10/19 12:00 99.2 74 16 111/60 (77) 99 06/10/19 12:00 Mechanical Ventilator 06/10/19 11:24 78 06/10/19 11:22 71 22 40 06/10/19 11:00 87 17 127/66 (86) 99 06/10/19 10:15 91 40 136/67 (90) 96 06/10/19 10:00 111 16 193/89 (123) 95 06/10/19 09:40 83 22 161/72 (101) 98 06/10/19 09:08 77 27 40 06/10/19 09:00 59 14 145/66 (92) 100 06/10/19 08:00 99.4 77 24 143/66 (91) 98 06/10/19 08:00 Mechanical Ventilator 06/10/19 08:00 40 06/10/19 07:33 79 26 40 40 06/10/19 07:28 71 06/10/19 07:00 105 41 166/76 (106) 96 06/10/19 06:30 98 16 06/10/19 06:00 95 20 154/73 (100) 98 06/10/19 05:00 97.9 91 22 158/73 (101) 96 06/10/19 04:51 90 25 40 06/10/19 04:00 Mechanical Ventilator 06/10/19 04:00 77 06/10/19 04:00 40 06/10/19 04:00 77 20 144/77 (99) 96 06/10/19 03:00 88 27 159/70 (99) 95 06/10/19 02:45 86 21 40 06/10/19 02:00 76 21 155/80 (105) 98 06/10/19 01:00 95 21 171/73 (105) 95 06/10/19 00:59 97 22 40 06/10/19 00:00 40 06/10/19 00:00 81 06/10/19 00:00 Mechanical Ventilator 06/10/19 00:00 98.8 95 21 165/78 (107) 95 06/09/19 23:00 97 21 155/76 (102) 95 06/09/19 22:32 93 20 40 06/09/19 22:00 97 22 162/83 (109) 95 06/09/19 21:02 102 25 40 06/09/19 21:00 95 22 168/78 (108) 95 06/09/19 20:00 82 06/09/19 20:00 Mechanical Ventilator 06/09/19 20:00 40 06/09/19 20:00 98.9 97 22 162/83 (109) 97 06/09/19 19:04 103 28 40 06/09/19 19:00 97.7 103 0 177/83 (114) 97 06/09/19 18:00 100 20 164/73 (103) 98 06/09/19 17:18 86 27 45 06/09/19 17:00 87 16 171/75 (107) 98 06/09/19 16:00 Mechanical Ventilator 06/09/19 16:00 45 06/09/19 16:00 99.8 84 10 145/61 (89) 96 06/09/19 15:40 80 06/09/19 15:30 167 155/94 06/09/19 15:27 170 22 45 06/09/19 15:20 169 06/09/19 15:00 104 31 143/80 (101) 95 06/09/19 14:00 90 25 165/79 (107) 98 06/09/19 13:27 98 29 45 06/09/19 13:00 101 21 153/75 (101) 96 06/09/19 12:00 84 06/09/19 12:00 99.5 68 6 137/76 (96) 96 06/09/19 12:00 45 06/09/19 12:00 Mechanical Ventilator 06/09/19 11:16 87 28 45 06/09/19 11:00 71 14 117/49 (71) 96 06/09/19 10:00 65 16 122/70 (87) 98 06/09/19 09:22 88 18 45 06/09/19 09:00 92 21 117/63 (81) 97 06/09/19 08:00 94 06/09/19 08:00 108 32 149/73 (98) 96 06/09/19 08:00 Mechanical Ventilator 06/09/19 07:35 82 24 45 45 06/09/19 07:30 45 06/09/19 07:00 99.1 73 16 107/46 (66) 96 Intake and Output 06/10/19 06/11/19 19:00 07:00 Intake Total 1635 ml 500 ml Output Total 1590 ml 110 ml Balance 45 ml 390 ml Free Water 60 ml IV Total 55 ml Tube Feeding 480 ml 440 ml Hemodialysis 1000 ml Other 100 ml Output Urine Total 90 ml 0 ml Stool Total 500 ml 110 ml Hemodialysis UF 1000 ml Labs Test 06/09/19 05:10 06/11/19 05:20 White Blood Count 10.8 K/UL (4.8-10.8) 10.4 K/UL (4.8-10.8) Red Blood Count 2.85 M/UL (4.70-6.10) 2.53 M/UL (4.70-6.10) Hemoglobin 8.6 G/DL (14.2-18.0) 7.8 G/DL (14.2-18.0) Hematocrit 25.7 % (42.0-52.0) 23.0 % (42.0-52.0) Mean Corpuscular Volume 90 FL (80-99) 91 FL (80-99) Mean Corpuscular Hemoglobin 30.1 PG (27.0-31.0) 30.8 PG (27.0-31.0) Mean Corpuscular Hemoglobin Concent 33.3 G/DL (32.0-36.0) 34.0 G/DL (32.0-36.0) Red Cell Distribution Width 15.9 % (11.6-14.8) 15.5 % (11.6-14.8) Platelet Count 211 K/UL (150-450) 165 K/UL (150-450) Mean Platelet Volume 5.2 FL (6.5-10.1) 5.8 FL (6.5-10.1) Neutrophils (%) (Auto) % (45.0-75.0) % (45.0-75.0) Lymphocytes (%) (Auto) % (20.0-45.0) % (20.0-45.0) Monocytes (%) (Auto) % (1.0-10.0) % (1.0-10.0) Eosinophils (%) (Auto) % (0.0-3.0) % (0.0-3.0) Basophils (%) (Auto) % (0.0-2.0) % (0.0-2.0) Differential Total Cells Counted 100 Neutrophils % (Manual) 94 % (45-75) Lymphocytes % (Manual) 2 % (20-45) Monocytes % (Manual) 4 % (1-10) Eosinophils % (Manual) 0 % (0-3) Basophils % (Manual) 0 % (0-2) Band Neutrophils 0 % (0-8) Platelet Estimate Adequate Platelet Morphology Normal Sodium Level 141 MMOL/L (136-145) 143 MMOL/L (136-145) Potassium Level 3.4 MMOL/L (3.5-5.1) 3.4 MMOL/L (3.5-5.1) Chloride Level 106 MMOL/L (98-107) 107 MMOL/L (98-107) Carbon Dioxide Level 25 MMOL/L (21-32) 27 MMOL/L (21-32) Anion Gap 10 mmol/L (5-15) 9 mmol/L (5-15) Blood Urea Nitrogen 73 mg/dL (7-18) 69 mg/dL (7-18) Creatinine 4.8 MG/DL (0.55-1.30) 4.1 MG/DL (0.55-1.30) Estimat Glomerular Filtration Rate mL/min (>60) mL/min (>60) Glucose Level 191 MG/DL (74-106) 207 MG/DL (74-106) Uric Acid 5.7 MG/DL (2.6-7.2) Calcium Level 7.3 MG/DL (8.5-10.1) 7.2 MG/DL (8.5-10.1) Phosphorus Level 4.0 MG/DL (2.5-4.9) 3.6 MG/DL (2.5-4.9) Magnesium Level 2.3 MG/DL (1.8-2.4) 2.2 MG/DL (1.8-2.4) Total Bilirubin 0.3 MG/DL (0.2-1.0) 0.3 MG/DL (0.2-1.0) Aspartate Amino Transf (AST/SGOT) 29 U/L (15-37) 52 U/L (15-37) Alanine Aminotransferase (ALT/SGPT) 29 U/L (12-78) 55 U/L (12-78) Alkaline Phosphatase 57 U/L (46-116) 68 U/L (46-116) C-Reactive Protein, Quantitative 0.7 mg/dL (0.00-0.90) < 0.4 mg/dL (0.00-0.90) Pro-B-Type Natriuretic Peptide 9053 pg/mL (0-125) 6831 pg/mL (0-125) Total Protein 5.0 G/DL (6.4-8.2) 4.7 G/DL (6.4-8.2) Albumin 1.6 G/DL (3.4-5.0) 1.5 G/DL (3.4-5.0) Globulin 3.4 g/dL 3.2 g/dL Albumin/Globulin Ratio 0.5 (1.0-2.7) 0.5 (1.0-2.7) Height (Feet): 5 Height (Inches): 7.00 Weight (Pounds): 206 Objective PE: Vitals: reviewed General Appearance: NAD HEENT: normocephalic, atraumatic++ ngt Neck: non-tender, normal alignment Respiratory/Chest: VENT++ Cardiovascular/Chest: normal peripheral pulses, normal rate Abdomen: normal bowel sounds, soft, nontender Extremities: normal range of motion ++ right arm swelling Suleman Addison MD Jun 11, 2019 06:59
[2019-06-11] MEDS: Eliquis 2.5mg tablet ORAL SCH (08:08)
[2019-06-11] MEDS: Solu-MEDROL 125mg Inj IVP SCH (08:08)
[2019-06-11] MEDS: Amiodarone 200mg tab ORAL SCH (08:08)
[2019-06-11] MEDS: Vitamin D 1000 IU Tab GT SCH (08:09)
--- NOTE | 2019-06-11 09:29 | General Progress Note ---
Assessment/Plan Problem List: (1) Dysphagia ICD Codes: R13.10 - Dysphagia, unspecified SNOMED: 95687305, 707766938 (2) Anemia ICD Codes: D64.9 - Anemia, unspecified SNOMED: 870805172 (3) Hypothyroidism ICD Codes: E03.9 - Hypothyroidism, unspecified SNOMED: 99276827 (4) Thrombus ICD Codes: I82.90 - Acute embolism and thrombosis of unspecified vein SNOMED: 98265965, 89643379, 457273978, 868376499 (5) A-fib ICD Codes: I48.91 - Unspecified atrial fibrillation SNOMED: 08597643 Status: progressing, unchanged, deteriorating Assessment/Plan: intubated in ICU NGTF fu pulm fu labs abx per ID on HD poor prognosis PEG if needed Subjective ROS Limited/Unobtainable: No Allergies: Coded Allergies: No Known Allergies (Unverified , 05/18/19) Subjective coded today Objective Last 24 Hour Vital Signs Date Time Temp Pulse Resp B/P (MAP) Pulse Ox O2 Delivery O2 Flow Rate FiO2 06/11/19 08:00 Mechanical Ventilator 06/11/19 07:50 40 06/11/19 07:40 80 20 40 06/11/19 07:00 79 16 137/69 (91) 97 06/11/19 06:00 82 16 152/69 (96) 97 06/11/19 05:02 81 24 40 06/11/19 05:00 84 15 168/69 (102) 97 06/11/19 04:00 Mechanical Ventilator 06/11/19 04:00 98.8 84 15 149/67 (94) 97 06/11/19 04:00 40 06/11/19 04:00 77 06/11/19 03:24 67 19 40 06/11/19 03:00 84 16 157/75 (102) 97 06/11/19 02:00 86 16 157/75 (102) 96 06/11/19 01:00 70 15 117/50 (72) 97 06/11/19 00:41 65 18 40 06/11/19 00:00 98.8 77 12 143/63 (89) 98 06/11/19 00:00 40 06/11/19 00:00 70 06/11/19 00:00 Mechanical Ventilator 06/10/19 23:00 86 9 151/64 (93) 98 06/10/19 22:00 83 24 141/57 (85) 98 06/10/19 21:10 69 18 40 06/10/19 21:00 78 5 134/51 (78) 99 06/10/19 20:30 65 7 126/58 (80) 100 06/10/19 20:15 65 14 126/59 (81) 99 06/10/19 20:00 40 06/10/19 20:00 Mechanical Ventilator 06/10/19 20:00 99.0 66 17 124/51 (75) 98 06/10/19 20:00 70 06/10/19 19:20 126/59 06/10/19 19:13 64 18 40 06/10/19 19:00 75 20 142/62 (88) 99 06/10/19 18:30 79 23 130/55 (80) 98 06/10/19 18:00 82 23 127/62 (83) 97 06/10/19 17:15 112 23 143/58 (86) 95 06/10/19 17:00 110 30 187/108 (134) 98 06/10/19 16:58 101 33 40 06/10/19 16:30 90 28 164/67 (99) 98 06/10/19 16:00 Mechanical Ventilator 06/10/19 16:00 40 06/10/19 16:00 99.7 68 15 119/57 (77) 98 06/10/19 15:34 71 06/10/19 15:30 92 28 148/69 (95) 97 06/10/19 15:22 106 21 40 06/10/19 15:00 94 24 167/68 (101) 98 06/10/19 14:00 68 15 119/50 (73) 98 06/10/19 13:27 70 16 40 06/10/19 13:15 65 16 121/59 (79) 99 06/10/19 13:00 71 16 130/54 (79) 98 06/10/19 12:30 70 16 122/54 (76) 98 06/10/19 12:15 73 15 140/60 (86) 98 06/10/19 12:00 40 06/10/19 12:00 99.2 74 16 111/60 (77) 99 06/10/19 12:00 Mechanical Ventilator 06/10/19 11:24 78 06/10/19 11:22 71 22 40 06/10/19 11:00 87 17 127/66 (86) 99 06/10/19 10:15 91 40 136/67 (90) 96 06/10/19 10:00 111 16 193/89 (123) 95 06/10/19 09:40 83 22 161/72 (101) 98 Intake and Output 06/10/19 06/11/19 19:00 07:00 Intake Total 1635 ml 540 ml Output Total 1590 ml 110 ml Balance 45 ml 430 ml Free Water 60 ml IV Total 55 ml Tube Feeding 480 ml 480 ml Hemodialysis 1000 ml Other 100 ml Output Urine Total 90 ml 0 ml Stool Total 500 ml 110 ml Hemodialysis UF 1000 ml Laboratory Tests 06/11/19 05:20: White Blood Count 10.4, Red Blood Count 2.53L, Hemoglobin 7.8L, Hematocrit 23.0L , Mean Corpuscular Volume 91, Mean Corpuscular Hemoglobin 30.8, Mean Corpuscular Hemoglobin Concent 34.0, Red Cell Distribution Width 15.5H, Platelet Count 165, Mean Platelet Volume 5.8L, Neutrophils (%) (Auto) , Lymphocytes (%) (Auto) , Monocytes (%) (Auto) , Eosinophils (%) (Auto) , Basophils (%) (Auto) , Neutrophils % (Manual) [Pending], Lymphocytes % (Manual) [Pending], Platelet Estimate [Pending], Platelet Morphology [Pending], Sodium Level 143, Potassium Level 3.4L, Chloride Level 107, Carbon Dioxide Level 27, Anion Gap 9, Blood Urea Nitrogen 69H, Creatinine 4.1H, Estimat Glomerular Filtration Rate , Glucose Level 207H, Calcium Level 7.2L, Phosphorus Level 3.6, Magnesium Level 2.2, Total Bilirubin 0.3, Aspartate Amino Transf (AST/SGOT) 52H , Alanine Aminotransferase (ALT/SGPT) 55, Alkaline Phosphatase 68, C-Reactive Protein, Quantitative < 0.4, Pro-B-Type Natriuretic Peptide 6831H, Total Protein 4.7L, Albumin 1.5L, Globulin 3.2, Albumin/Globulin Ratio 0.5L Height (Feet): 5 Height (Inches): 7.00 Weight (Pounds): 206 General Appearance: no apparent distress EENT: normal ENT inspection Neck: supple Cardiovascular: normal rate Respiratory/Chest: decreased breath sounds Abdomen: normal bowel sounds, non tender, soft Extremities: non-tender Valentino Lino MD Jun 11, 2019 09:29
--- NOTE | 2019-06-11 12:52 | Nephrology Progress Note ---
Assessment/Plan Problem List: (1) Renal failure (ARF), acute on chronic Assessment: Cr rising (2) Cellulitis of upper extremity (3) A-fib (4) Pneumonia (5) UTI (urinary tract infection) (6) Anemia Assessment: worsened (7) Hypothyroidism Assessment - KIMO on CKD - Urinary tract infection. - Anemia- - Dehydration. - Cellulitis of Upper extremity - HTN Plan taper steroids as possible dialysis 06/10 next 06/12 DC Midodrine DC IV IV Calcium and PO Vit D ad needed Transfuse one unit PRBcs in ICU- intubated BP meds and Mind altering meds discontinued On midodrine check vanco levels - hold vanco doses previously: Per cardiology Anemia kumari- Avoid Nephrotoxics Per ID Allow CHANDA inhibitor to continue as long as renal function does not worsen. PICC line has been removed. CXR: Increased right pleural effusion and similar left pleural effusion. Increased interstitial and hazy opacities throughout the lungs. Subjective ROS Limited/Unobtainable: Yes Objective Objective Last 24 Hour Vital Signs Date Time Temp Pulse Resp B/P (MAP) Pulse Ox O2 Delivery O2 Flow Rate FiO2 06/11/19 12:00 Mechanical Ventilator 06/11/19 12:00 99.2 97 0 127/72 (90) 98 06/11/19 12:00 87 06/11/19 12:00 40 06/11/19 11:10 65 18 40 06/11/19 11:00 89 0 161/76 (104) 98 06/11/19 10:00 73 0 154/73 (100) 98 06/11/19 09:20 67 19 40 06/11/19 09:00 90 21 156/73 (100) 100 06/11/19 08:00 99.5 95 0 142/71 (94) 98 06/11/19 08:00 Mechanical Ventilator 06/11/19 08:00 93 06/11/19 07:50 40 06/11/19 07:40 80 20 40 06/11/19 07:00 79 16 137/69 (91) 97 06/11/19 06:00 82 16 152/69 (96) 97 06/11/19 05:02 81 24 40 06/11/19 05:00 84 15 168/69 (102) 97 06/11/19 04:00 Mechanical Ventilator 06/11/19 04:00 98.8 84 15 149/67 (94) 97 06/11/19 04:00 40 06/11/19 04:00 77 06/11/19 03:24 67 19 40 06/11/19 03:00 84 16 157/75 (102) 97 06/11/19 02:00 86 16 157/75 (102) 96 06/11/19 01:00 70 15 117/50 (72) 97 06/11/19 00:41 65 18 40 06/11/19 00:00 98.8 77 12 143/63 (89) 98 06/11/19 00:00 40 06/11/19 00:00 70 06/11/19 00:00 Mechanical Ventilator 06/10/19 23:00 86 9 151/64 (93) 98 06/10/19 22:00 83 24 141/57 (85) 98 06/10/19 21:10 69 18 40 06/10/19 21:00 78 5 134/51 (78) 99 06/10/19 20:30 65 7 126/58 (80) 100 06/10/19 20:15 65 14 126/59 (81) 99 06/10/19 20:00 40 06/10/19 20:00 Mechanical Ventilator 06/10/19 20:00 99.0 66 17 124/51 (75) 98 06/10/19 20:00 70 06/10/19 19:20 126/59 06/10/19 19:13 64 18 40 06/10/19 19:00 75 20 142/62 (88) 99 06/10/19 18:30 79 23 130/55 (80) 98 06/10/19 18:00 82 23 127/62 (83) 97 06/10/19 17:15 112 23 143/58 (86) 95 06/10/19 17:00 110 30 187/108 (134) 98 06/10/19 16:58 101 33 40 06/10/19 16:30 90 28 164/67 (99) 98 06/10/19 16:00 Mechanical Ventilator 06/10/19 16:00 40 06/10/19 16:00 99.7 68 15 119/57 (77) 98 06/10/19 15:34 71 06/10/19 15:30 92 28 148/69 (95) 97 06/10/19 15:22 106 21 40 06/10/19 15:00 94 24 167/68 (101) 98 06/10/19 14:00 68 15 119/50 (73) 98 06/10/19 13:27 70 16 40 06/10/19 13:15 65 16 121/59 (79) 99 06/10/19 13:00 71 16 130/54 (79) 98 Intake and Output 06/10/19 06/11/19 19:00 07:00 Intake Total 1635 ml 540 ml Output Total 1590 ml 110 ml Balance 45 ml 430 ml Free Water 60 ml IV Total 55 ml Tube Feeding 480 ml 480 ml Hemodialysis 1000 ml Other 100 ml Output Urine Total 90 ml 0 ml Stool Total 500 ml 110 ml Hemodialysis UF 1000 ml Laboratory Tests 06/11/19 05:20: White Blood Count 10.4, Red Blood Count 2.53L, Hemoglobin 7.8L, Hematocrit 23.0L , Mean Corpuscular Volume 91, Mean Corpuscular Hemoglobin 30.8, Mean Corpuscular Hemoglobin Concent 34.0, Red Cell Distribution Width 15.5H, Platelet Count 165, Mean Platelet Volume 5.8L, Neutrophils (%) (Auto) , Lymphocytes (%) (Auto) , Monocytes (%) (Auto) , Eosinophils (%) (Auto) , Basophils (%) (Auto) , Differential Total Cells Counted 100, Neutrophils % ( Manual) 98H, Lymphocytes % (Manual) 1L, Monocytes % (Manual) 1, Eosinophils % ( Manual) 0, Basophils % (Manual) 0, Band Neutrophils 0, Platelet Estimate Adequate, Platelet Morphology Normal, Anisocytosis 1+, Sodium Level 143, Potassium Level 3.4L, Chloride Level 107, Carbon Dioxide Level 27, Anion Gap 9, Blood Urea Nitrogen 69H, Creatinine 4.1H, Estimat Glomerular Filtration Rate , Glucose Level 207H, Calcium Level 7.2L, Phosphorus Level 3.6, Magnesium Level 2.2, Total Bilirubin 0.3, Aspartate Amino Transf (AST/SGOT) 52H, Alanine Aminotransferase (ALT/SGPT) 55, Alkaline Phosphatase 68, C-Reactive Protein, Quantitative < 0.4, Pro-B-Type Natriuretic Peptide 6831H, Total Protein 4.7L, Albumin 1.5L, Globulin 3.2, Albumin/Globulin Ratio 0.5L Height (Feet): 5 Height (Inches): 7.00 Weight (Pounds): 206 General Appearance: no apparent distress Cardiovascular: tachycardia Respiratory/Chest: decreased breath sounds Abdomen: distended Objective no change Reinier Mera MD Jun 11, 2019 12:52
--- NOTE | 2019-06-11 13:55 | Pulmonology Progress Note ---
Assessment/Plan Assessment/Plan IMPRESSION AND PLAN: 1. Pneumonia. Bilateral upper lobe. 2. Cellulitis. 3. History of COPD. 4. Hypertension. 5. Afib with RVR; rate controlled 6. Respiratory failure; on vent; unable to wean DISCUSSION: 1. Intubated; on AC mode; May need to be trached; notified Dr Logan 2. Agree with present management and care. 3. Continue medications and HHN with atrovent only 4. Check stool for C diff Arsen Whittaker M.D. Subjective Interval Events: None new; remains intubated HEENT: Repors: no symptoms Respiratory: Reports: no symptoms Cardiovascular: Reports: no symptoms Allergies: Coded Allergies: No Known Allergies (Unverified , 05/18/19) Objective Last 24 Hour Vital Signs Date Time Temp Pulse Resp B/P (MAP) Pulse Ox O2 Delivery O2 Flow Rate FiO2 06/11/19 13:00 100 6 154/75 (101) 100 06/11/19 12:00 Mechanical Ventilator 06/11/19 12:00 99.2 97 0 127/72 (90) 98 06/11/19 12:00 87 06/11/19 12:00 40 06/11/19 11:10 65 18 40 06/11/19 11:00 89 0 161/76 (104) 98 06/11/19 10:00 73 0 154/73 (100) 98 06/11/19 09:20 67 19 40 06/11/19 09:00 90 21 156/73 (100) 100 06/11/19 08:00 99.5 95 0 142/71 (94) 98 06/11/19 08:00 Mechanical Ventilator 06/11/19 08:00 93 06/11/19 07:50 40 06/11/19 07:40 80 20 40 06/11/19 07:00 79 16 137/69 (91) 97 06/11/19 06:00 82 16 152/69 (96) 97 06/11/19 05:02 81 24 40 06/11/19 05:00 84 15 168/69 (102) 97 06/11/19 04:00 Mechanical Ventilator 06/11/19 04:00 98.8 84 15 149/67 (94) 97 06/11/19 04:00 40 06/11/19 04:00 77 06/11/19 03:24 67 19 40 06/11/19 03:00 84 16 157/75 (102) 97 06/11/19 02:00 86 16 157/75 (102) 96 06/11/19 01:00 70 15 117/50 (72) 97 06/11/19 00:41 65 18 40 06/11/19 00:00 98.8 77 12 143/63 (89) 98 06/11/19 00:00 40 06/11/19 00:00 70 06/11/19 00:00 Mechanical Ventilator 06/10/19 23:00 86 9 151/64 (93) 98 06/10/19 22:00 83 24 141/57 (85) 98 06/10/19 21:10 69 18 40 06/10/19 21:00 78 5 134/51 (78) 99 06/10/19 20:30 65 7 126/58 (80) 100 06/10/19 20:15 65 14 126/59 (81) 99 06/10/19 20:00 40 06/10/19 20:00 Mechanical Ventilator 06/10/19 20:00 99.0 66 17 124/51 (75) 98 06/10/19 20:00 70 06/10/19 19:20 126/59 06/10/19 19:13 64 18 40 06/10/19 19:00 75 20 142/62 (88) 99 06/10/19 18:30 79 23 130/55 (80) 98 06/10/19 18:00 82 23 127/62 (83) 97 06/10/19 17:15 112 23 143/58 (86) 95 06/10/19 17:00 110 30 187/108 (134) 98 06/10/19 16:58 101 33 40 06/10/19 16:30 90 28 164/67 (99) 98 06/10/19 16:00 Mechanical Ventilator 06/10/19 16:00 40 06/10/19 16:00 99.7 68 15 119/57 (77) 98 06/10/19 15:34 71 06/10/19 15:30 92 28 148/69 (95) 97 06/10/19 15:22 106 21 40 06/10/19 15:00 94 24 167/68 (101) 98 06/10/19 14:00 68 15 119/50 (73) 98 Intake and Output 06/10/19 06/11/19 19:00 07:00 Intake Total 1635 ml 540 ml Output Total 1590 ml 110 ml Balance 45 ml 430 ml Free Water 60 ml IV Total 55 ml Tube Feeding 480 ml 480 ml Hemodialysis 1000 ml Other 100 ml Output Urine Total 90 ml 0 ml Stool Total 500 ml 110 ml Hemodialysis UF 1000 ml General Appearance: no acute distress HEENT: normocephalic Respiratory/Chest: chest wall non-tender, decreased breath sounds Cardiovascular: normal peripheral pulses Abdomen: normal bowel sounds Laboratory Tests 06/11/19 05:20: White Blood Count 10.4, Red Blood Count 2.53L, Hemoglobin 7.8L, Hematocrit 23.0L , Mean Corpuscular Volume 91, Mean Corpuscular Hemoglobin 30.8, Mean Corpuscular Hemoglobin Concent 34.0, Red Cell Distribution Width 15.5H, Platelet Count 165, Mean Platelet Volume 5.8L, Neutrophils (%) (Auto) , Lymphocytes (%) (Auto) , Monocytes (%) (Auto) , Eosinophils (%) (Auto) , Basophils (%) (Auto) , Differential Total Cells Counted 100, Neutrophils % ( Manual) 98H, Lymphocytes % (Manual) 1L, Monocytes % (Manual) 1, Eosinophils % ( Manual) 0, Basophils % (Manual) 0, Band Neutrophils 0, Platelet Estimate Adequate, Platelet Morphology Normal, Anisocytosis 1+, Sodium Level 143, Potassium Level 3.4L, Chloride Level 107, Carbon Dioxide Level 27, Anion Gap 9, Blood Urea Nitrogen 69H, Creatinine 4.1H, Estimat Glomerular Filtration Rate , Glucose Level 207H, Calcium Level 7.2L, Phosphorus Level 3.6, Magnesium Level 2.2, Total Bilirubin 0.3, Aspartate Amino Transf (AST/SGOT) 52H, Alanine Aminotransferase (ALT/SGPT) 55, Alkaline Phosphatase 68, C-Reactive Protein, Quantitative < 0.4, Pro-B-Type Natriuretic Peptide 6831H, Total Protein 4.7L, Albumin 1.5L, Globulin 3.2, Albumin/Globulin Ratio 0.5L Current Medications Medications (Trade) Dose Ordered Sig/Phillip Route PRN Reason Start Time Stop Time Status Last Admin Dose Admin Acetaminophen (Tylenol) 500 mg Q4H PRN GT Mild Pain/Temp > 100.5 05/27/19 07:45 06/19/19 20:29 06/06/19 13:52 Amiodarone HCl (Cordarone) 200 mg DAILY ORAL 06/07/19 16:15 07/07/19 16:14 06/11/19 08:08 Apixaban (Eliquis) 2.5 mg Q12HR ORAL 06/08/19 21:00 07/08/19 20:59 06/11/19 08:08 Chlorhexidine Gluconate (Reina-Hex 2%) 1 applic DAILY@2000 TOPIC 05/27/19 20:00 06/26/19 19:59 06/10/19 20:23 Daptomycin 500 mg/ Sodium Chloride 55 ml @ 100 mls/hr Q48H IV 05/29/19 13:00 06/23/19 23:59 06/10/19 13:37 Ipratropium [place] (Atrovent) 500 mcg Q4H PRN HHN Shortness of Breath 06/08/19 10:00 06/13/19 09:59 06/08/19 12:37 Lansoprazole (Prevacid) 30 mg BID NG 06/06/19 18:00 07/06/19 17:59 06/11/19 08:09 Lorazepam (Ativan 2mg/ml 1ml) 1 mg Q4H PRN IV For Anxiety/Agitation 06/08/19 10:00 06/15/19 09:59 06/10/19 17:13 Methylprednisolone Sodium Succinate (Solu-MEDROL) 60 mg EVERY 12 HOURS IVP 06/04/19 21:00 07/04/19 20:59 06/11/19 08:08 Metoprolol Tartrate (Lopressor) 5 mg Q5MIN X 3 IVP 06/07/19 16:15 07/07/19 16:14 06/09/19 15:30 Norepinephrine Bitartrate 4 mg/ Dextrose 250 ml @ 0 mls/hr Q24H IV 05/29/19 19:20 06/28/19 19:19 05/30/19 22:45 Vitamin D (Vitamin D) 5,000 intlu DAILY GT 06/07/19 13:00 07/07/19 12:59 06/11/19 08:09 Arsen Whittaker MD Jun 11, 2019 13:55
[2019-06-11] MEDS: LORazepam Inj 2mg/ml 1ml IV PRN (14:04)
--- NOTE | 2019-06-11 15:11 | Infectious Diseases Prog Note ---
Assessment/Plan Assessment/Plan 84 yo male with PMHx of HTN who was sent to the ED on 05/18/19 from his retirement for possible picc line infection. Swelling around PICC line Minimal to no erythema and no purulent drainage Not likely to be infected Blood Cx 05/18/19 - NGTD PICC Tip Cx 05/18/19 - NGTD PICC line removed 05/18/19 Leukocytosis, SP No fever OM - Let foot On Vancomycin at nursing End date early May PNA Acute respiratory failure s/p intubation 05/27 06/10 CXR: Bilateral upper lobe interstitial opacities and volume loss are unchanged. Diffuse more acute appearing parenchymal disease throughout the left mid and lower lung are unchanged. CXR - Some LLL Atelectasis vs PNA, Nodules CT 05/20/19 - Bilateral upper lobe infiltrates worse on the right. Consider pneumonia. Bilateral pleural effusions moderate in size Sp Cx Marily HTN PLAN - Continue Daptomycin for OM until 06/23/19 weekly CPK -06/10 SP Zosyn #15 - 05/28/19 SP Vancomycin per pharmacy - Stopped for increasing Cr - 05/27/19 SP Levofloxacin #5 - Get OSH records for OM - Monitor CBC and Temps Thank you for this consult. [facility] will continue to follow the patient with you during this hospitalization. Subjective Allergies: Coded Allergies: No Known Allergies (Unverified , 05/18/19) Subjective afebrile no leukocytosis off pressors remains intubated Objective Vital Signs Last 24 Hour Vital Signs Date Time Temp Pulse Resp B/P (MAP) Pulse Ox O2 Delivery O2 Flow Rate FiO2 06/11/19 14:00 109 14 171/79 (109) 97 06/11/19 13:00 100 6 154/75 (101) 100 06/11/19 12:52 69 24 40 06/11/19 12:00 Mechanical Ventilator 06/11/19 12:00 99.2 97 0 127/72 (90) 98 06/11/19 12:00 87 06/11/19 12:00 40 06/11/19 11:10 65 18 40 06/11/19 11:00 89 0 161/76 (104) 98 06/11/19 10:00 73 0 154/73 (100) 98 06/11/19 09:20 67 19 40 06/11/19 09:00 90 21 156/73 (100) 100 06/11/19 08:00 99.5 95 0 142/71 (94) 98 06/11/19 08:00 Mechanical Ventilator 06/11/19 08:00 93 06/11/19 07:50 40 06/11/19 07:40 80 20 40 06/11/19 07:00 79 16 137/69 (91) 97 06/11/19 06:00 82 16 152/69 (96) 97 06/11/19 05:02 81 24 40 06/11/19 05:00 84 15 168/69 (102) 97 06/11/19 04:00 Mechanical Ventilator 06/11/19 04:00 98.8 84 15 149/67 (94) 97 06/11/19 04:00 40 06/11/19 04:00 77 06/11/19 03:24 67 19 40 06/11/19 03:00 84 16 157/75 (102) 97 06/11/19 02:00 86 16 157/75 (102) 96 06/11/19 01:00 70 15 117/50 (72) 97 06/11/19 00:41 65 18 40 06/11/19 00:00 98.8 77 12 143/63 (89) 98 06/11/19 00:00 40 06/11/19 00:00 70 06/11/19 00:00 Mechanical Ventilator 06/10/19 23:00 86 9 151/64 (93) 98 06/10/19 22:00 83 24 141/57 (85) 98 06/10/19 21:10 69 18 40 06/10/19 21:00 78 5 134/51 (78) 99 06/10/19 20:30 65 7 126/58 (80) 100 06/10/19 20:15 65 14 126/59 (81) 99 06/10/19 20:00 40 06/10/19 20:00 Mechanical Ventilator 06/10/19 20:00 99.0 66 17 124/51 (75) 98 06/10/19 20:00 70 06/10/19 19:20 126/59 06/10/19 19:13 64 18 40 06/10/19 19:00 75 20 142/62 (88) 99 06/10/19 18:30 79 23 130/55 (80) 98 06/10/19 18:00 82 23 127/62 (83) 97 06/10/19 17:15 112 23 143/58 (86) 95 06/10/19 17:00 110 30 187/108 (134) 98 06/10/19 16:58 101 33 40 06/10/19 16:30 90 28 164/67 (99) 98 06/10/19 16:00 Mechanical Ventilator 06/10/19 16:00 40 06/10/19 16:00 99.7 68 15 119/57 (77) 98 06/10/19 15:34 71 06/10/19 15:30 92 28 148/69 (95) 97 06/10/19 15:22 106 21 40 Height (Feet): 5 Height (Inches): 7.00 Weight (Pounds): 206 Objective General Appearance: no apparent distress, lethargic Cardiovascular: normal rate Respiratory/Chest: decreased breath sounds Abdomen: distended Laboratory Tests Test 06/11/19 05:20 White Blood Count 10.4 K/UL (4.8-10.8) Red Blood Count 2.53 M/UL (4.70-6.10) L Hemoglobin 7.8 G/DL (14.2-18.0) L Hematocrit 23.0 % (42.0-52.0) L Mean Corpuscular Volume 91 FL (80-99) Mean Corpuscular Hemoglobin 30.8 PG (27.0-31.0) Mean Corpuscular Hemoglobin Concent 34.0 G/DL (32.0-36.0) Red Cell Distribution Width 15.5 % (11.6-14.8) H Platelet Count 165 K/UL (150-450) Mean Platelet Volume 5.8 FL (6.5-10.1) L Neutrophils (%) (Auto) % (45.0-75.0) Lymphocytes (%) (Auto) % (20.0-45.0) Monocytes (%) (Auto) % (1.0-10.0) Eosinophils (%) (Auto) % (0.0-3.0) Basophils (%) (Auto) % (0.0-2.0) Differential Total Cells Counted 100 Neutrophils % (Manual) 98 % (45-75) H Lymphocytes % (Manual) 1 % (20-45) L Monocytes % (Manual) 1 % (1-10) Eosinophils % (Manual) 0 % (0-3) Basophils % (Manual) 0 % (0-2) Band Neutrophils 0 % (0-8) Platelet Estimate Adequate Platelet Morphology Normal Anisocytosis 1+ Sodium Level 143 MMOL/L (136-145) Potassium Level 3.4 MMOL/L (3.5-5.1) L Chloride Level 107 MMOL/L (98-107) Carbon Dioxide Level 27 MMOL/L (21-32) Anion Gap 9 mmol/L (5-15) Blood Urea Nitrogen 69 mg/dL (7-18) H Creatinine 4.1 MG/DL (0.55-1.30) H Estimat Glomerular Filtration Rate mL/min (>60) Glucose Level 207 MG/DL (74-106) H Calcium Level 7.2 MG/DL (8.5-10.1) L Phosphorus Level 3.6 MG/DL (2.5-4.9) Magnesium Level 2.2 MG/DL (1.8-2.4) Total Bilirubin 0.3 MG/DL (0.2-1.0) Aspartate Amino Transf (AST/SGOT) 52 U/L (15-37) H Alanine Aminotransferase (ALT/SGPT) 55 U/L (12-78) Alkaline Phosphatase 68 U/L (46-116) C-Reactive Protein, Quantitative < 0.4 mg/dL (0.00-0.90) Pro-B-Type Natriuretic Peptide 6831 pg/mL (0-125) H Total Protein 4.7 G/DL (6.4-8.2) L Albumin 1.5 G/DL (3.4-5.0) L Globulin 3.2 g/dL Albumin/Globulin Ratio 0.5 (1.0-2.7) L Current Medications Medications (Trade) Dose Ordered Sig/Hpillip Route PRN Reason Start Time Stop Time Status Last Admin Dose Admin Acetaminophen (Tylenol) 500 mg Q4H PRN GT Mild Pain/Temp > 100.5 05/27/19 07:45 06/19/19 20:29 06/06/19 13:52 Amiodarone HCl (Cordarone) 200 mg DAILY ORAL 06/07/19 16:15 07/07/19 16:14 06/11/19 08:08 Apixaban (Eliquis) 2.5 mg Q12HR ORAL 06/08/19 21:00 07/08/19 20:59 06/11/19 08:08 Chlorhexidine Gluconate (Reina-Hex 2%) 1 applic DAILY@2000 TOPIC 05/27/19 20:00 06/26/19 19:59 06/10/19 20:23 Daptomycin 500 mg/ Sodium Chloride 55 ml @ 100 mls/hr Q48H IV 05/29/19 13:00 06/23/19 23:59 06/10/19 13:37 Ipratropium [place] (Atrovent) 500 mcg Q4H PRN HHN Shortness of Breath 06/08/19 10:00 06/13/19 09:59 06/08/19 12:37 Lansoprazole (Prevacid) 30 mg BID NG 06/06/19 18:00 07/06/19 17:59 06/11/19 08:09 Lorazepam (Ativan 2mg/ml 1ml) 1 mg Q4H PRN IV For Anxiety/Agitation 06/08/19 10:00 06/15/19 09:59 06/11/19 14:04 Methylprednisolone Sodium Succinate (Solu-MEDROL) 40 mg EVERY 12 HOURS IVP 06/11/19 21:00 07/04/19 20:59 Metoprolol Tartrate (Lopressor) 5 mg Q5MIN X 3 IVP 06/07/19 16:15 07/07/19 16:14 06/09/19 15:30 Norepinephrine Bitartrate 4 mg/ Dextrose 250 ml @ 0 mls/hr Q24H IV 05/29/19 19:20 06/28/19 19:19 05/30/19 22:45 Vitamin D (Vitamin D) 5,000 intlu DAILY GT 06/07/19 13:00 07/07/19 12:59 06/11/19 08:09 Latha Lowe M.D. Jun 11, 2019 15:11
--- NOTE | 2019-06-11 15:45 | Surgery Progress Note ---
Surgery Progress Note Subjective Additional Comments no acute events exam unchanged not able to wean from vent plan for trach tomorrow Objective Last 24 Hour Vital Signs Date Time Temp Pulse Resp B/P (MAP) Pulse Ox O2 Delivery O2 Flow Rate FiO2 06/11/19 15:00 75 18 137/51 (79) 99 06/11/19 14:44 65 18 40 06/11/19 14:00 109 14 171/79 (109) 97 06/11/19 13:00 100 6 154/75 (101) 100 06/11/19 12:52 69 24 40 06/11/19 12:00 Mechanical Ventilator 06/11/19 12:00 99.2 97 0 127/72 (90) 98 06/11/19 12:00 87 06/11/19 12:00 40 06/11/19 11:10 65 18 40 06/11/19 11:00 89 0 161/76 (104) 98 06/11/19 10:00 73 0 154/73 (100) 98 06/11/19 09:20 67 19 40 06/11/19 09:00 90 21 156/73 (100) 100 06/11/19 08:00 99.5 95 0 142/71 (94) 98 06/11/19 08:00 Mechanical Ventilator 06/11/19 08:00 93 06/11/19 07:50 40 06/11/19 07:40 80 20 40 06/11/19 07:00 79 16 137/69 (91) 97 06/11/19 06:00 82 16 152/69 (96) 97 06/11/19 05:02 81 24 40 06/11/19 05:00 84 15 168/69 (102) 97 06/11/19 04:00 Mechanical Ventilator 06/11/19 04:00 98.8 84 15 149/67 (94) 97 06/11/19 04:00 40 06/11/19 04:00 77 06/11/19 03:24 67 19 40 06/11/19 03:00 84 16 157/75 (102) 97 06/11/19 02:00 86 16 157/75 (102) 96 06/11/19 01:00 70 15 117/50 (72) 97 06/11/19 00:41 65 18 40 06/11/19 00:00 98.8 77 12 143/63 (89) 98 06/11/19 00:00 40 06/11/19 00:00 70 06/11/19 00:00 Mechanical Ventilator 06/10/19 23:00 86 9 151/64 (93) 98 06/10/19 22:00 83 24 141/57 (85) 98 06/10/19 21:10 69 18 40 06/10/19 21:00 78 5 134/51 (78) 99 06/10/19 20:30 65 7 126/58 (80) 100 06/10/19 20:15 65 14 126/59 (81) 99 06/10/19 20:00 40 06/10/19 20:00 Mechanical Ventilator 06/10/19 20:00 99.0 66 17 124/51 (75) 98 06/10/19 20:00 70 06/10/19 19:20 126/59 06/10/19 19:13 64 18 40 06/10/19 19:00 75 20 142/62 (88) 99 06/10/19 18:30 79 23 130/55 (80) 98 06/10/19 18:00 82 23 127/62 (83) 97 06/10/19 17:15 112 23 143/58 (86) 95 06/10/19 17:00 110 30 187/108 (134) 98 06/10/19 16:58 101 33 40 06/10/19 16:30 90 28 164/67 (99) 98 06/10/19 16:00 Mechanical Ventilator 06/10/19 16:00 40 06/10/19 16:00 99.7 68 15 119/57 (77) 98 I&O Intake and Output 06/10/19 06/11/19 19:00 07:00 Intake Total 1635 ml 540 ml Output Total 1590 ml 110 ml Balance 45 ml 430 ml Free Water 60 ml IV Total 55 ml Tube Feeding 480 ml 480 ml Hemodialysis 1000 ml Other 100 ml Output Urine Total 90 ml 0 ml Stool Total 500 ml 110 ml Hemodialysis UF 1000 ml Dressing: other Wound: other Drains: other Cardiovascular: RSR Respiratory: decreased breath sounds Abdomen: soft, present bowel sounds Extremities: no cyanosis Laboratory Tests Test 06/11/19 05:20 White Blood Count 10.4 K/UL (4.8-10.8) Red Blood Count 2.53 M/UL (4.70-6.10) L Hemoglobin 7.8 G/DL (14.2-18.0) L Hematocrit 23.0 % (42.0-52.0) L Mean Corpuscular Volume 91 FL (80-99) Mean Corpuscular Hemoglobin 30.8 PG (27.0-31.0) Mean Corpuscular Hemoglobin Concent 34.0 G/DL (32.0-36.0) Red Cell Distribution Width 15.5 % (11.6-14.8) H Platelet Count 165 K/UL (150-450) Mean Platelet Volume 5.8 FL (6.5-10.1) L Neutrophils (%) (Auto) % (45.0-75.0) Lymphocytes (%) (Auto) % (20.0-45.0) Monocytes (%) (Auto) % (1.0-10.0) Eosinophils (%) (Auto) % (0.0-3.0) Basophils (%) (Auto) % (0.0-2.0) Differential Total Cells Counted 100 Neutrophils % (Manual) 98 % (45-75) H Lymphocytes % (Manual) 1 % (20-45) L Monocytes % (Manual) 1 % (1-10) Eosinophils % (Manual) 0 % (0-3) Basophils % (Manual) 0 % (0-2) Band Neutrophils 0 % (0-8) Platelet Estimate Adequate Platelet Morphology Normal Anisocytosis 1+ Sodium Level 143 MMOL/L (136-145) Potassium Level 3.4 MMOL/L (3.5-5.1) L Chloride Level 107 MMOL/L (98-107) Carbon Dioxide Level 27 MMOL/L (21-32) Anion Gap 9 mmol/L (5-15) Blood Urea Nitrogen 69 mg/dL (7-18) H Creatinine 4.1 MG/DL (0.55-1.30) H Estimat Glomerular Filtration Rate mL/min (>60) Glucose Level 207 MG/DL (74-106) H Calcium Level 7.2 MG/DL (8.5-10.1) L Phosphorus Level 3.6 MG/DL (2.5-4.9) Magnesium Level 2.2 MG/DL (1.8-2.4) Total Bilirubin 0.3 MG/DL (0.2-1.0) Aspartate Amino Transf (AST/SGOT) 52 U/L (15-37) H Alanine Aminotransferase (ALT/SGPT) 55 U/L (12-78) Alkaline Phosphatase 68 U/L (46-116) C-Reactive Protein, Quantitative < 0.4 mg/dL (0.00-0.90) Pro-B-Type Natriuretic Peptide 6831 pg/mL (0-125) H Total Protein 4.7 G/DL (6.4-8.2) L Albumin 1.5 G/DL (3.4-5.0) L Globulin 3.2 g/dL Albumin/Globulin Ratio 0.5 (1.0-2.7) L Plan Problems: (1) Cellulitis of upper extremity Assessment & Plan: 84M with RUE cellulitis, edema, erythema. no drainage. has RUE picc line recommend removal of picc. removed at bedside by myself on 05/18. pressure held, hemostasis noted, dressings applied. cath tip sent for cultures DVT duplex studies with acute thrombus IV Abx as per ID UA pending Cx results keep RUE elevated on pillows okay for diet AM labs anticoagulation off load pressure for dti noted cellulitis and edema improved deteriorated intubated on vent support likely respiratory insufficiency labs ordered wean vent okay for tube feeds via ng - cont as tolerated wean vent am labs HD as per renal now with right IJ Temp HD cath will follow with recs thank you (2) Cellulitis Assessment & Plan: Pt presented on admission with reabsorbing blister lateral R heel. Base of injury indurated with delineated margins(L)4cm x (W)3cm.Non- blanching erythema Sacrum ,R and L buttocks(L)8.5cm x (W)9cm, with a partial thickness pressure injury noted to L buttocks. Base of wound is moist and viable (L)2.3cm x (W)3cm. Area around wound tender when minimally palpated. Pt noted to be wearing splint L foot. Per pt he fractured foot a few weeks ago. Splint removed to assess skin integrity. L heel and malleoli are pink and blanchable.Cavilon Skin Barrier applied to L heel and malleoli and each area covered with Optifoam drsg. Splint reapplied. No other skin concerns noted. unchanged Partial Thickness pressure injury L buttocks resolved . Non-blanching erythema without induration noted to Sacrum,R and L buttocks. (L)8cm x (W)9cm. Scrotum is grossly enlarged and is erythematous and macerated. Penile shaft is grossly swollen .Pt noted to have a partially opened blood blister with 25% biofilm at base of shaft of penis.(L)4.5cm x (W)2.5cm. Bilat groin, medial /posterior aspects of both upper thighs are erythematous and denuded. R lower ext edematous. R heel blister reabsorbed. Non--blanching erythema without induration noted to R heel. Splint removed from L foot. Optifoam drsgs removed from malleoli and heel. Pt noted to have developed several DTPI's despite having Optifoam drsgs. DTPI noted to L achilles . Base of wound is purple and fluctuant (L)0.6cm x (W) 2.7cm.DTPI noted to medial L malleolus(L)0.2cm x (W)0.3cm.Base of wound is purple with marginal erythema. DTPI noted to dorsal L foot. Base of wound is purple with marginal erythema along borders (L)0.9cm x (W)0.5cm.L heel is boggy with non-blanching erythema. Cavilon Skin Barrier applied to affected areas on L foot . Dorsal L foot ,Achilles .R and L malleoli and L heel each covered with Optifoam drsg. Non-blanching erythema without induration noted to lateral L tibia. At plantar aspect of L hallux small dry eschar noted. No erythema or fluctuance periwound. (L)0.5cm x (W)0.4cm. IN addition to Optifoam drsgs placed over each bony prominence of L foot ABD pads placed over dorsal and plantar L foot , Abd pads aligned along L tibia. Splint realigned to L foot Wrapped loosely with Kerlix then wrapped loosely with [place] wrap. L foot floated off mattress with pillow. Tx.Plan: Apply Cavilon to Dorsal L foot. L achilles .Medial/Lateral Malleoli L Foot and L heel. Cover each site with Optifoam drsg. Change every 7 days and prn. Apply Cavilon Plantar L foot. Cover with Optifoam drsg. Change every 7 days and prn. Apply Moisture Barrier Paste to sacrum. Cover with Optifoam drsg. Changee very 7 days and prn. Apply Cavilon Skin Barrier to Both heels. Cover each heel with Optifoam drsg. Change every 7 days and prn. Cleanse wound Shaft of penis with saline. Apply Moisture Barrier Paste Daily and prn. Apply Moisture Barrier Paste to Bilat groin, Scrotum, Medial/Posterior aspects of both upper thighs with each perineal care. Reposition at least every 2hours or as tolerated. Off-load heels with pillows. APM/LA L Mattress overlay. (3) SOB (shortness of breath) Assessment & Plan: Unfortunately patient has been in the intensive care unit on ventilatory support unable to be weaned from vent. Will likely require prolonged ventilatory support. Respiratory insufficiency not improving. Patient is full code as per identifiable documentation in patient's chart and medical record. No family or next kin available. Given patient's wishes current condition and course of a care tracheostomy is indicated recommended. Tracheostomy would be medically necessary as a next step in patient's care plan. We will proceed with tracheostomy tomorrow discussed with patient's medical multidisciplinary team Bennett Logan Jun 11, 2019 15:45
--- NOTE | 2019-06-11 15:45 | Pre-Procedure Note/Attestation ---
Pre-Procedure Note/Attestation Complete Prior to Procedure Procedure Narrative: Tracheostomy Indications for Procedure Pre-Operative Diagnosis: Respiratory insufficiency required prolonged ventilatory support Attestation I attest that I discussed the nature of the procedure; its benefits; risks and complications; and alternatives (and the risks and benefits of such alternatives ), prior to the procedure, with the patient (or the patient's legal automobile sales representative). I attest that, if there was a reasonable possibility of needing a blood transfusion, the patient (or the patient's legal automobile sales representative) was given the [facility] standardized written summary, pursuant to the [place]alo [place] Blood Safety Act ([place] Health and Safety Code # 1645, as amended). I attest that I re-evaluated the patient just prior to the surgery and that there has been no change in the patient's H&P, except as documented below: Bennett Logan Jun 11, 2019 15:45
[2019-06-11] MEDS: Dyna-Hex 2% Top Sol 2oz TOPIC SCH (20:07)
[2019-06-11] MEDS: Solu-MEDROL 40mg Inj IVP SCH (21:20)
--- NOTE | 2019-06-11 22:11 | General Progress Note ---
Assessment/Plan Problem List: (1) SOB (shortness of breath) ICD Codes: R06.02 - Shortness of breath SNOMED: 339008210 (2) Cellulitis ICD Codes: L03.90 - Cellulitis, unspecified SNOMED: 987408146 (3) Cellulitis of upper extremity ICD Codes: L03.119 - Cellulitis of unspecified part of limb SNOMED: 805628756 Qualifiers: Qualified Codes: L03.113 - Cellulitis of right upper limb (4) Renal insufficiency ICD Codes: N28.9 - Disorder of kidney and ureter, unspecified SNOMED: 577896251, 372862930 (5) Renal failure (ARF), acute on chronic ICD Codes: N17.9 - Acute kidney failure, unspecified; N18.9 - Chronic kidney disease, unspecified SNOMED: 513518716 (6) Anemia ICD Codes: D64.9 - Anemia, unspecified SNOMED: 847852431 (7) Hypothyroidism ICD Codes: E03.9 - Hypothyroidism, unspecified SNOMED: 80098663 (8) UTI (urinary tract infection) ICD Codes: N39.0 - Urinary tract infection, site not specified SNOMED: 35596032 Status: progressing, unchanged, deteriorating Assessment/Plan: dr foss is contacted failure to wean anemia trach per pulmonary chf pna sepsis wound in lower extremity. distal fracture .ortho is already on the case lwound and le fracture Subjective ROS Limited/Unobtainable: Yes Allergies: Coded Allergies: No Known Allergies (Unverified , 05/18/19) Objective Last 24 Hour Vital Signs Date Time Temp Pulse Resp B/P (MAP) Pulse Ox O2 Delivery O2 Flow Rate FiO2 06/11/19 20:37 90 25 40 06/11/19 19:20 169/90 06/11/19 19:00 95 0 169/78 (108) 100 06/11/19 18:50 95 31 40 06/11/19 18:00 88 16 159/81 (107) 99 06/11/19 17:00 80 0 156/68 (97) 99 06/11/19 16:55 68 20 40 06/11/19 16:00 99.1 68 18 138/57 (84) 98 06/11/19 16:00 40 06/11/19 16:00 Mechanical Ventilator 06/11/19 16:00 88 1/15/20 15:00 75 18 137/51 (79) 99 06/11/19 14:44 65 18 40 06/11/19 14:00 109 14 171/79 (109) 97 06/11/19 13:00 100 6 154/75 (101) 100 06/11/19 12:52 69 24 40 06/11/19 12:00 Mechanical Ventilator 06/11/19 12:00 99.2 97 0 127/72 (90) 98 06/11/19 12:00 87 06/11/19 12:00 40 06/11/19 11:10 65 18 40 06/11/19 11:00 89 0 161/76 (104) 98 06/11/19 10:00 73 0 154/73 (100) 98 06/11/19 09:20 67 19 40 06/11/19 09:00 90 21 156/73 (100) 100 06/11/19 08:00 99.5 95 0 142/71 (94) 98 06/11/19 08:00 Mechanical Ventilator 06/11/19 08:00 93 06/11/19 07:50 40 06/11/19 07:40 80 20 40 06/11/19 07:00 79 16 137/69 (91) 97 06/11/19 06:00 82 16 152/69 (96) 97 06/11/19 05:02 81 24 40 06/11/19 05:00 84 15 168/69 (102) 97 06/11/19 04:00 Mechanical Ventilator 06/11/19 04:00 98.8 84 15 149/67 (94) 97 06/11/19 04:00 40 06/11/19 04:00 77 06/11/19 03:24 67 19 40 06/11/19 03:00 84 16 157/75 (102) 97 06/11/19 02:00 86 16 157/75 (102) 96 06/11/19 01:00 70 15 117/50 (72) 97 06/11/19 00:41 65 18 40 06/11/19 00:00 98.8 77 12 143/63 (89) 98 06/11/19 00:00 40 06/11/19 00:00 70 06/11/19 00:00 Mechanical Ventilator 06/10/19 23:00 86 9 151/64 (93) 98 Intake and Output 06/10/19 06/11/19 19:00 07:00 Intake Total 1635 ml 540 ml Output Total 1590 ml 110 ml Balance 45 ml 430 ml Free Water 60 ml IV Total 55 ml Tube Feeding 480 ml 480 ml Hemodialysis 1000 ml Other 100 ml Output Urine Total 90 ml 0 ml Stool Total 500 ml 110 ml Hemodialysis UF 1000 ml Laboratory Tests 06/11/19 05:20: White Blood Count 10.4, Red Blood Count 2.53L, Hemoglobin 7.8L, Hematocrit 23.0L , Mean Corpuscular Volume 91, Mean Corpuscular Hemoglobin 30.8, Mean Corpuscular Hemoglobin Concent 34.0, Red Cell Distribution Width 15.5H, Platelet Count 165, Mean Platelet Volume 5.8L, Neutrophils (%) (Auto) , Lymphocytes (%) (Auto) , Monocytes (%) (Auto) , Eosinophils (%) (Auto) , Basophils (%) (Auto) , Differential Total Cells Counted 100, Neutrophils % ( Manual) 98H, Lymphocytes % (Manual) 1L, Monocytes % (Manual) 1, Eosinophils % ( Manual) 0, Basophils % (Manual) 0, Band Neutrophils 0, Platelet Estimate Adequate, Platelet Morphology Normal, Anisocytosis 1+, Sodium Level 143, Potassium Level 3.4L, Chloride Level 107, Carbon Dioxide Level 27, Anion Gap 9, Blood Urea Nitrogen 69H, Creatinine 4.1H, Estimat Glomerular Filtration Rate , Glucose Level 207H, Calcium Level 7.2L, Phosphorus Level 3.6, Magnesium Level 2.2, Total Bilirubin 0.3, Aspartate Amino Transf (AST/SGOT) 52H, Alanine Aminotransferase (ALT/SGPT) 55, Alkaline Phosphatase 68, C-Reactive Protein, Quantitative < 0.4, Pro-B-Type Natriuretic Peptide 6831H, Total Protein 4.7L, Albumin 1.5L, Globulin 3.2, Albumin/Globulin Ratio 0.5L Height (Feet): 5 Height (Inches): 7.00 Weight (Pounds): 206 General Appearance: lethargic, confused Respiratory/Chest: rhonchi - bilaterally Joslyn Wiggins MD Jun 11, 2019 22:11
[2019-06-12] VITALS (24 sets, daily range): BP systolic 109–171; BP diastolic 45–88
[2019-06-12 05:37] LABS: HEMATOCRIT 24.4 % (42.0-52.0); HEMOGLOBIN 8.3 G/DL (14.2-18.0); MEAN CORPUSCULAR VOLUME 91 FL (80-99); PLATELET COUNT 182 K/UL (150-450); RED BLOOD COUNT 2.69 M/UL (4.70-6.10); RED CELL DISTRIBUTION WIDTH 15.8 % (11.6-14.8); WHITE BLOOD COUNT 12.3 K/UL (4.8-10.8)
[2019-06-12 05:50] LABS: ANION GAP 9 mmol/L (5-15); BLOOD UREA NITROGEN 85 mg/dL (7-18); CALCIUM 7.6 MG/DL (8.5-10.1); CARBON DIOXIDE 28 MMOL/L (21-32); CHLORIDE 107 MMOL/L (98-107); CREATININE 4.5 MG/DL (0.55-1.30); POTASSIUM 3.7 MMOL/L (3.5-5.1); SODIUM 144 MMOL/L (136-145)
[2019-06-12 06:16] LABS: INR 1.1 (0.9-1.1)
--- NOTE | 2019-06-12 06:31 | Hematology/Onc Progress Note ---
Assessment/Plan Assessment/Plan # Anemia of chronic disease due to underlying chronic medical issues, multifactorial v Gi bleed --> Anemia workup has been reviewed, rule out gi bleed --> No evidence of hemolysis is noted, peripheral smear has been reviewed. --> Hgb goal >7. Transfuse prn. --> Epogen or iron at this time is not particularly indicated --> Medications have been reviewed --> low threshold for gi evaluation in case has occult + --> hgb trend: 9.3-->9.7-->8.1-->7.6-->8-->9.4-->9.2->7.5-->9.3-->8-->8.1-->8.6- ->7.8-->8.3 --> transf 05/28/19 with 1 unit prbc, 1 unit on 06/03 --> transfusion is a emergency, no family, no poa, is okay to transfuse # Right upper arm extremity axillary vein dvt --> agree to continue eliquis ONCE bleeding resolved --> continue for total of minimum of 3 months --> rescan arm in 3 mo # Thrombocytopenia is due to infection, i.e. cellulitis of upper extremity, likely picc line infection --> as per id on ax --> picc off --> levoflox/vanc-->zosyn/vanc--> zosyn-->dapto/zosyn --> plt trend 208-->132-->146k-->159-->217-->211 # Respiratory failure s/p vent --> has been failing weaning --> trach as per Desmond Whittaker # Renal insufficiency --> per Dr. Mera # Pneumonia --> abx per id # Dehydration. --> goal of euvolemia # Paroxysmal Atrial fibrillation with rapid ventricular response was on amiodarone gtt, now in sinus rhythm. --> per cards On PO amiodarone 200 bid, Lopressor 25 bid # Dysphagia with ng tube # Dvt ppx eliquis--> continued The timing of this note does not necessarily reflect the time of the patient was seen. Greatly appreciate consultation. Subjective Constitutional: Denies: no symptoms, chills, fever, malaise, weakness, other HEENT: Denies: no symptoms, eye pain, blurred vision, tearing, double vision, ear pain, ear discharge, nose pain, nose congestion, throat pain, throat swelling, mouth pain, mouth swelling, other Respiratory: Denies: no symptoms, cough, shortness of breath, SOB with excertion, SOB at rest, sputum, wheezing, other Gastrointestinal/Abdominal: Denies: no symptoms, abdomen distended, abdominal pain, black stools, tarry stools, blood in stool, constipated, diarrhea, difficulty swallowing, nausea, poor appetite, poor fluid intake, rectal bleeding , vomiting, other Endocrine: Denies: no symptoms, excessive sweating, flushing, intolerance to cold, intolerance to heat, increased hunger, increased thirst, increased urine, unexplained weight gain, unexplained weight loss, other Allergies: Coded Allergies: No Known Allergies (Unverified , 05/18/19) Subjective 05/24: awake and alert, v mask, labs reviewed, apixaban 05/25: as per gi, ngt and eliquis tolerated 05/26: pending clearance but still with ng and nonrebreather 05/27: hypoxic yesterday, deteriorated, coded, now intubated, icu, labs noted 05/28: icu, levophed gtt, hgb 7.6, repeat cbc 05/29: remains in the icu, given prbc last night, no bleeding 05/30: no events, no bleeding, ++ fredo and on pressor 05/31: intubated, bp better on pressor, no bleeding, coag ordered 06/02: reamins ill appearing, on vent, labs noted, on vent, poorly responsive 06/03: no events, no bleeding, labs noted, dw surgery, and Rn, monitoring plt 06/04: tolerating tube feeds, labs noted, in the icu 06/05: restraints, cxr unchanged, anticoagulants on hold until further notice 06/06: no events, no bleeding, no night sweats, no bleeding 06/08: icu, unable to wean per resp, apixaban restarted, labs reviewed 06/09: minimally responsive, on vent and gt feeds, no bleeding 06/10: no acute events, failed to wean, hd for today, h/h stable 06/11: remains altered, may need trach, coags ordered, no bleeding currently 06/12: no events, no bleeding, trach pending, no major changes Objective Objective Current Medications Medications (Trade) Dose Ordered Sig/Phillip Route PRN Reason Start Time Stop Time Status Last Admin Dose Admin Acetaminophen (Tylenol) 500 mg Q4H PRN GT Mild Pain/Temp > 100.5 05/27/19 07:45 06/19/19 20:29 06/06/19 13:52 Amiodarone HCl (Cordarone) 200 mg DAILY ORAL 06/07/19 16:15 07/07/19 16:14 06/11/19 08:08 Chlorhexidine Gluconate (Reina-Hex 2%) 1 applic DAILY@2000 TOPIC 05/27/19 20:00 06/26/19 19:59 06/11/19 20:07 Daptomycin 500 mg/ Sodium Chloride 55 ml @ 100 mls/hr Q48H IV 05/29/19 13:00 06/23/19 23:59 06/10/19 13:37 Ipratropium Ramona (Atrovent) 500 mcg Q4H PRN HHN Shortness of Breath 06/08/19 10:00 06/13/19 09:59 06/08/19 12:37 Lansoprazole (Prevacid) 30 mg BID NG 06/06/19 18:00 07/06/19 17:59 06/11/19 08:09 Lorazepam (Ativan 2mg/ml 1ml) 1 mg Q4H PRN IV For Anxiety/Agitation 06/08/19 10:00 06/15/19 09:59 06/11/19 14:04 Methylprednisolone Sodium Succinate (Solu-MEDROL) 40 mg EVERY 12 HOURS IVP 06/11/19 21:00 07/04/19 20:59 06/11/19 21:20 Metoprolol Tartrate (Lopressor) 5 mg Q5MIN X 3 IVP 06/07/19 16:15 07/07/19 16:14 06/09/19 15:30 Norepinephrine Bitartrate 4 mg/ Dextrose 250 ml @ 0 mls/hr Q24H IV 05/29/19 19:20 06/28/19 19:19 05/30/19 22:45 Vitamin D (Vitamin D) 5,000 intlu DAILY GT 06/07/19 13:00 07/07/19 12:59 06/11/19 08:09 Last 24 Hour Vital Signs Date Time Temp Pulse Resp B/P (MAP) Pulse Ox O2 Delivery O2 Flow Rate FiO2 06/12/19 05:13 86 22 40 06/12/19 04:00 40 06/12/19 04:00 95 06/12/19 02:52 92 22 40 06/12/19 01:00 85 17 140/88 (105) 99 06/12/19 00:58 91 22 40 06/12/19 00:00 40 06/12/19 00:00 Mechanical Ventilator 06/12/19 00:00 98.8 85 19 166/78 (107) 99 06/12/19 00:00 88 06/11/19 23:00 92 14 186/74 (111) 99 06/11/19 22:49 97 28 40 06/11/19 22:00 91 17 158/73 (101) 100 06/11/19 21:00 89 27 161/71 (101) 100 06/11/19 20:37 90 25 40 06/11/19 20:00 90 06/11/19 20:00 Mechanical Ventilator 06/11/19 20:00 99.0 89 11 169/90 (116) 100 06/11/19 19:20 169/90 06/11/19 19:00 95 0 169/78 (108) 100 06/11/19 18:50 95 31 40 06/11/19 18:00 88 16 159/81 (107) 99 06/11/19 17:00 80 0 156/68 (97) 99 06/11/19 16:55 68 20 40 06/11/19 16:00 99.1 68 18 138/57 (84) 98 06/11/19 16:00 40 06/11/19 16:00 Mechanical Ventilator 06/11/19 16:00 88 06/11/19 15:00 75 18 137/51 (79) 99 06/11/19 14:44 65 18 40 06/11/19 14:00 109 14 171/79 (109) 97 06/11/19 13:00 100 6 154/75 (101) 100 06/11/19 12:52 69 24 40 06/11/19 12:00 Mechanical Ventilator 06/11/19 12:00 99.2 97 0 127/72 (90) 98 06/11/19 12:00 87 06/11/19 12:00 40 06/11/19 11:10 65 18 40 06/11/19 11:00 89 0 161/76 (104) 98 06/11/19 10:00 73 0 154/73 (100) 98 06/11/19 09:20 67 19 40 06/11/19 09:00 90 21 156/73 (100) 100 06/11/19 08:00 99.5 95 0 142/71 (94) 98 06/11/19 08:00 Mechanical Ventilator 06/11/19 08:00 93 06/11/19 07:50 40 06/11/19 07:40 80 20 40 06/11/19 07:00 79 16 137/69 (91) 97 06/11/19 06:00 82 16 152/69 (96) 97 06/11/19 05:02 81 24 40 06/11/19 05:00 84 15 168/69 (102) 97 06/11/19 04:00 Mechanical Ventilator 06/11/19 04:00 98.8 84 15 149/67 (94) 97 06/11/19 04:00 40 06/11/19 04:00 77 06/11/19 03:24 67 19 40 06/11/19 03:00 84 16 157/75 (102) 97 06/11/19 02:00 86 16 157/75 (102) 96 06/11/19 01:00 70 15 117/50 (72) 97 06/11/19 00:41 65 18 40 06/11/19 00:00 98.8 77 12 143/63 (89) 98 06/11/19 00:00 40 06/11/19 00:00 70 06/11/19 00:00 Mechanical Ventilator 06/10/19 23:00 86 9 151/64 (93) 98 06/10/19 22:00 83 24 141/57 (85) 98 06/10/19 21:10 69 18 40 06/10/19 21:00 78 5 134/51 (78) 99 06/10/19 20:30 65 7 126/58 (80) 100 06/10/19 20:15 65 14 126/59 (81) 99 06/10/19 20:00 40 06/10/19 20:00 Mechanical Ventilator 06/10/19 20:00 99.0 66 17 124/51 (75) 98 06/10/19 20:00 70 06/10/19 19:20 126/59 06/10/19 19:13 64 18 40 06/10/19 19:00 75 20 142/62 (88) 99 06/10/19 18:30 79 23 130/55 (80) 98 06/10/19 18:00 82 23 127/62 (83) 97 06/10/19 17:15 112 23 143/58 (86) 95 06/10/19 17:00 110 30 187/108 (134) 98 06/10/19 16:58 101 33 40 06/10/19 16:30 90 28 164/67 (99) 98 06/10/19 16:00 Mechanical Ventilator 06/10/19 16:00 40 06/10/19 16:00 99.7 68 15 119/57 (77) 98 06/10/19 15:34 71 06/10/19 15:30 92 28 148/69 (95) 97 06/10/19 15:22 106 21 40 06/10/19 15:00 94 24 167/68 (101) 98 06/10/19 14:00 68 15 119/50 (73) 98 06/10/19 13:27 70 16 40 06/10/19 13:15 65 16 121/59 (79) 99 06/10/19 13:00 71 16 130/54 (79) 98 06/10/19 12:30 70 16 122/54 (76) 98 06/10/19 12:15 73 15 140/60 (86) 98 06/10/19 12:00 40 06/10/19 12:00 99.2 74 16 111/60 (77) 99 06/10/19 12:00 Mechanical Ventilator 06/10/19 11:24 78 06/10/19 11:22 71 22 40 06/10/19 11:00 87 17 127/66 (86) 99 06/10/19 10:15 91 40 136/67 (90) 96 06/10/19 10:00 111 16 193/89 (123) 95 06/10/19 09:40 83 22 161/72 (101) 98 06/10/19 09:08 77 27 40 06/10/19 09:00 59 14 145/66 (92) 100 06/10/19 08:00 99.4 77 24 143/66 (91) 98 06/10/19 08:00 Mechanical Ventilator 06/10/19 08:00 40 06/10/19 07:33 79 26 40 40 06/10/19 07:28 71 06/10/19 07:00 105 41 166/76 (106) 96 Intake and Output 06/11/19 06/12/19 19:00 07:00 Intake Total 700 ml 310 ml Output Total 305 ml 40 ml Balance 395 ml 270 ml Free Water 30 ml IV Total 100 ml Tube Feeding 480 ml 280 ml Other 120 ml Output Urine Total 105 ml 40 ml Stool Total 200 ml Labs Test 06/11/19 05:20 06/12/19 04:40 White Blood Count 10.4 K/UL (4.8-10.8) 12.3 K/UL (4.8-10.8) Red Blood Count 2.53 M/UL (4.70-6.10) 2.69 M/UL (4.70-6.10) Hemoglobin 7.8 G/DL (14.2-18.0) 8.3 G/DL (14.2-18.0) Hematocrit 23.0 % (42.0-52.0) 24.4 % (42.0-52.0) Mean Corpuscular Volume 91 FL (80-99) 91 FL (80-99) Mean Corpuscular Hemoglobin 30.8 PG (27.0-31.0) 31.0 PG (27.0-31.0) Mean Corpuscular Hemoglobin Concent 34.0 G/DL (32.0-36.0) 34.1 G/DL (32.0-36.0) Red Cell Distribution Width 15.5 % (11.6-14.8) 15.8 % (11.6-14.8) Platelet Count 165 K/UL (150-450) 182 K/UL (150-450) Mean Platelet Volume 5.8 FL (6.5-10.1) 5.2 FL (6.5-10.1) Neutrophils (%) (Auto) % (45.0-75.0) % (45.0-75.0) Lymphocytes (%) (Auto) % (20.0-45.0) % (20.0-45.0) Monocytes (%) (Auto) % (1.0-10.0) % (1.0-10.0) Eosinophils (%) (Auto) % (0.0-3.0) % (0.0-3.0) Basophils (%) (Auto) % (0.0-2.0) % (0.0-2.0) Differential Total Cells Counted 100 Neutrophils % (Manual) 98 % (45-75) Lymphocytes % (Manual) 1 % (20-45) Monocytes % (Manual) 1 % (1-10) Eosinophils % (Manual) 0 % (0-3) Basophils % (Manual) 0 % (0-2) Band Neutrophils 0 % (0-8) Platelet Estimate Adequate Platelet Morphology Normal Anisocytosis 1+ Sodium Level 143 MMOL/L (136-145) 144 MMOL/L (136-145) Potassium Level 3.4 MMOL/L (3.5-5.1) 3.7 MMOL/L (3.5-5.1) Chloride Level 107 MMOL/L (98-107) 107 MMOL/L (98-107) Carbon Dioxide Level 27 MMOL/L (21-32) 28 MMOL/L (21-32) Anion Gap 9 mmol/L (5-15) 9 mmol/L (5-15) Blood Urea Nitrogen 69 mg/dL (7-18) 85 mg/dL (7-18) Creatinine 4.1 MG/DL (0.55-1.30) 4.5 MG/DL (0.55-1.30) Estimat Glomerular Filtration Rate mL/min (>60) mL/min (>60) Glucose Level 207 MG/DL (74-106) 205 MG/DL (74-106) Calcium Level 7.2 MG/DL (8.5-10.1) 7.6 MG/DL (8.5-10.1) Phosphorus Level 3.6 MG/DL (2.5-4.9) Magnesium Level 2.2 MG/DL (1.8-2.4) Total Bilirubin 0.3 MG/DL (0.2-1.0) Aspartate Amino Transf (AST/SGOT) 52 U/L (15-37) Alanine Aminotransferase (ALT/SGPT) 55 U/L (12-78) Alkaline Phosphatase 68 U/L (46-116) C-Reactive Protein, Quantitative < 0.4 mg/dL (0.00-0.90) Pro-B-Type Natriuretic Peptide 6831 pg/mL (0-125) Total Protein 4.7 G/DL (6.4-8.2) Albumin 1.5 G/DL (3.4-5.0) Globulin 3.2 g/dL Albumin/Globulin Ratio 0.5 (1.0-2.7) Height (Feet): 5 Height (Inches): 7.00 Weight (Pounds): 206 Objective PE: Vitals: reviewed General Appearance: NAD HEENT: normocephalic, atraumatic++ ngt Neck: non-tender, normal alignment Respiratory/Chest: VENT++ Cardiovascular/Chest: normal peripheral pulses, normal rate Abdomen: normal bowel sounds, soft, nontender Extremities: normal range of motion ++ right arm swelling Suleman Addison MD Jun 12, 2019 06:31
[2019-06-12 06:38] LABS: ALANINE AMINOTRANSFERASE 59 U/L (12-78); ALBUMIN 1.8 G/DL (3.4-5.0); ALKALINE PHOSPHATASE 69 U/L (46-116); ASPARTATE AMINO TRANSFERASE 41 U/L (15-37); BILIRUBIN,DIRECT 0.1 MG/DL (0.0-0.3); BILIRUBIN,TOTAL 0.4 MG/DL (0.2-1.0)
[2019-06-12] MEDS: Amiodarone 200mg tab ORAL SCH (09:07)
[2019-06-12] MEDS: Solu-MEDROL 40mg Inj IVP SCH (09:07)
[2019-06-12] MEDS: Vitamin D 1000 IU Tab GT SCH (09:07)
--- NOTE | 2019-06-12 11:12 | General Progress Note ---
Assessment/Plan Problem List: (1) Dysphagia ICD Codes: R13.10 - Dysphagia, unspecified SNOMED: 04587878, 609671712 (2) Anemia ICD Codes: D64.9 - Anemia, unspecified SNOMED: 017544693 (3) Hypothyroidism ICD Codes: E03.9 - Hypothyroidism, unspecified SNOMED: 98912650 (4) Thrombus ICD Codes: I82.90 - Acute embolism and thrombosis of unspecified vein SNOMED: 13035996, 33294154, 064663025, 053427970 (5) A-fib ICD Codes: I48.91 - Unspecified atrial fibrillation SNOMED: 12338807 Status: progressing, unchanged, deteriorating Assessment/Plan: intubated in ICU NGTF fu pulm fu labs abx per ID on HD poor prognosis plan trach and PEG for tomorrow patient has no family, is unable to give consent needs PEG for survival Subjective ROS Limited/Unobtainable: No Allergies: Coded Allergies: No Known Allergies (Unverified , 05/18/19) Subjective coded today Objective Last 24 Hour Vital Signs Date Time Temp Pulse Resp B/P (MAP) Pulse Ox O2 Delivery O2 Flow Rate FiO2 06/12/19 11:00 91 17 154/72 (99) 98 06/12/19 10:51 91 26 40 06/12/19 10:00 86 17 150/78 (102) 98 06/12/19 09:00 91 153/74 (100) 98 06/12/19 08:45 99 06/12/19 08:42 89 26 40 06/12/19 08:00 Mechanical Ventilator 06/12/19 08:00 95 06/12/19 08:00 40 06/12/19 08:00 99.3 93 160/78 (105) 96 06/12/19 07:17 89 24 40 06/12/19 07:00 99.3 89 153/80 (104) 97 06/12/19 06:00 90 21 120/60 (80) 98 06/12/19 05:13 86 22 40 06/12/19 05:00 93 21 117/54 (75) 98 06/12/19 04:00 40 06/12/19 04:00 Mechanical Ventilator 06/12/19 04:00 98.9 93 21 147/79 (101) 99 06/12/19 04:00 95 06/12/19 03:00 96 21 166/79 (108) 99 06/12/19 02:52 92 22 40 06/12/19 02:00 87 18 150/82 (104) 99 06/12/19 01:00 85 17 140/88 (105) 99 06/12/19 00:58 91 22 40 06/12/19 00:00 40 06/12/19 00:00 Mechanical Ventilator 06/12/19 00:00 98.8 85 19 166/78 (107) 99 06/12/19 00:00 88 06/11/19 23:00 92 14 186/74 (111) 99 06/11/19 22:49 97 28 40 06/11/19 22:00 91 17 158/73 (101) 100 06/11/19 21:00 89 27 161/71 (101) 100 06/11/19 20:37 90 25 40 06/11/19 20:00 90 06/11/19 20:00 Mechanical Ventilator 06/11/19 20:00 99.0 89 11 169/90 (116) 100 06/11/19 19:20 169/90 06/11/19 19:00 95 0 169/78 (108) 100 06/11/19 18:50 95 31 40 06/11/19 18:00 88 16 159/81 (107) 99 06/11/19 17:00 80 0 156/68 (97) 99 06/11/19 16:55 68 20 40 06/11/19 16:00 99.1 68 18 138/57 (84) 98 06/11/19 16:00 40 06/11/19 16:00 Mechanical Ventilator 06/11/19 16:00 88 06/11/19 15:00 75 18 137/51 (79) 99 06/11/19 14:44 65 18 40 06/11/19 14:00 109 14 171/79 (109) 97 06/11/19 13:00 100 6 154/75 (101) 100 06/11/19 12:52 69 24 40 06/11/19 12:00 Mechanical Ventilator 06/11/19 12:00 99.2 97 0 127/72 (90) 98 06/11/19 12:00 87 06/11/19 12:00 40 Intake and Output 06/11/19 06/12/19 19:00 07:00 Intake Total 700 ml 190 ml Output Total 305 ml 210 ml Balance 395 ml -20 ml Free Water 30 ml IV Total 100 ml Tube Feeding 480 ml 160 ml Other 120 ml Output Urine Total 105 ml 90 ml Stool Total 200 ml 120 ml Laboratory Tests 06/12/19 04:40: White Blood Count 12.3H, Red Blood Count 2.69L, Hemoglobin 8.3L, Hematocrit 24.4L, Mean Corpuscular Volume 91, Mean Corpuscular Hemoglobin 31.0, Mean Corpuscular Hemoglobin Concent 34.1, Red Cell Distribution Width 15.8H, Platelet Count 182, Mean Platelet Volume 5.2L, Neutrophils (%) (Auto) , Lymphocytes (%) (Auto) , Monocytes (%) (Auto) , Eosinophils (%) (Auto) , Basophils (%) (Auto) , Prothrombin Time 11.9H, Prothromb Time International Ratio 1.1, Activated Partial Thromboplast Time 22L, Sodium Level 144, Potassium Level 3.7, Chloride Level 107, Carbon Dioxide Level 28, Anion Gap 9, Blood Urea Nitrogen 85H, Creatinine 4.5H, Estimat Glomerular Filtration Rate , Glucose Level 205H, Calcium Level 7.6L, Phosphorus Level 4.0, Magnesium Level 2.2, Total Bilirubin 0.4, Direct Bilirubin 0.1, Aspartate Amino Transf (AST/SGOT) 41H , Alanine Aminotransferase (ALT/SGPT) 59, Alkaline Phosphatase 69, C-Reactive Protein, Quantitative < 0.4, Pro-B-Type Natriuretic Peptide 6201H, Total Protein 5.2L, Albumin 1.8L, Random Vancomycin Level 12.7 Height (Feet): 5 Height (Inches): 7.00 Weight (Pounds): 200 General Appearance: lethargic EENT: normal ENT inspection Neck: supple Cardiovascular: normal rate Respiratory/Chest: decreased breath sounds Abdomen: normal bowel sounds, non tender, soft Edema: 3+ Arm (R), 3+ Leg (L) Valentino Lino MD Jun 12, 2019 11:12
--- NOTE | 2019-06-12 11:13 | Infectious Diseases Prog Note ---
Assessment/Plan Assessment/Plan 84 yo male with PMHx of HTN who was sent to the ED on 05/18/19 from his alf for possible picc line infection. Swelling around PICC line Minimal to no erythema and no purulent drainage Not likely to be infected Blood Cx 05/18/19 - NGTD PICC Tip Cx 05/18/19 - NGTD PICC line removed 05/18/19 Leukocytosis, mild recurrent (on steroids) No fever OM - Let foot On Vancomycin at nursing End date early May PNA Acute respiratory failure s/p intubation 05/27 06/10 CXR: Bilateral upper lobe interstitial opacities and volume loss are unchanged. Diffuse more acute appearing parenchymal disease throughout the left mid and lower lung are unchanged. CXR - Some LLL Atelectasis vs PNA, Nodules CT 05/20/19 - Bilateral upper lobe infiltrates worse on the right. Consider pneumonia. Bilateral pleural effusions moderate in size Sp Cx Marily HTN PLAN - Continue Daptomycin for OM until 06/23/19 weekly CPK -06/10 SP Zosyn #15 - 05/28/19 SP Vancomycin per pharmacy - Stopped for increasing Cr - 05/27/19 SP Levofloxacin #5 - Monitor CBC and Temps -ETT/ICU care -aspiration precautions -wound care per hospital protocol Thank you for this consult. [facility] will continue to follow the patient with you during this hospitalization. Subjective Allergies: Coded Allergies: No Known Allergies (Unverified , 05/18/19) Subjective afebrile mildleukocytosis , on steroids off pressors remains intubated Objective Vital Signs Last 24 Hour Vital Signs Date Time Temp Pulse Resp B/P (MAP) Pulse Ox O2 Delivery O2 Flow Rate FiO2 06/12/19 11:00 91 17 154/72 (99) 98 06/12/19 10:51 91 26 40 06/12/19 10:00 86 17 150/78 (102) 98 06/12/19 09:00 91 153/74 (100) 98 06/12/19 08:45 99 06/12/19 08:42 89 26 40 06/12/19 08:00 Mechanical Ventilator 06/12/19 08:00 95 06/12/19 08:00 40 06/12/19 08:00 99.3 93 160/78 (105) 96 06/12/19 07:17 89 24 40 06/12/19 07:00 99.3 89 153/80 (104) 97 06/12/19 06:00 90 21 120/60 (80) 98 06/12/19 05:13 86 22 40 06/12/19 05:00 93 21 117/54 (75) 98 06/12/19 04:00 40 06/12/19 04:00 Mechanical Ventilator 06/12/19 04:00 98.9 93 21 147/79 (101) 99 06/12/19 04:00 95 06/12/19 03:00 96 21 166/79 (108) 99 06/12/19 02:52 92 22 40 06/12/19 02:00 87 18 150/82 (104) 99 06/12/19 01:00 85 17 140/88 (105) 99 06/12/19 00:58 91 22 40 06/12/19 00:00 40 06/12/19 00:00 Mechanical Ventilator 06/12/19 00:00 98.8 85 19 166/78 (107) 99 06/12/19 00:00 88 06/11/19 23:00 92 14 186/74 (111) 99 06/11/19 22:49 97 28 40 06/11/19 22:00 91 17 158/73 (101) 100 06/11/19 21:00 89 27 161/71 (101) 100 06/11/19 20:37 90 25 40 06/11/19 20:00 90 06/11/19 20:00 Mechanical Ventilator 06/11/19 20:00 99.0 89 11 169/90 (116) 100 06/11/19 19:20 169/90 06/11/19 19:00 95 0 169/78 (108) 100 06/11/19 18:50 95 31 40 06/11/19 18:00 88 16 159/81 (107) 99 06/11/19 17:00 80 0 156/68 (97) 99 06/11/19 16:55 68 20 40 06/11/19 16:00 99.1 68 18 138/57 (84) 98 06/11/19 16:00 40 06/11/19 16:00 Mechanical Ventilator 06/11/19 16:00 88 06/11/19 15:00 75 18 137/51 (79) 99 1/15/20 14:44 65 18 40 06/11/19 14:00 109 14 171/79 (109) 97 06/11/19 13:00 100 6 154/75 (101) 100 06/11/19 12:52 69 24 40 06/11/19 12:00 Mechanical Ventilator 06/11/19 12:00 99.2 97 0 127/72 (90) 98 06/11/19 12:00 87 06/11/19 12:00 40 Height (Feet): 5 Height (Inches): 7.00 Weight (Pounds): 200 Objective General Appearance: no apparent distress, lethargic Cardiovascular: normal rate Respiratory/Chest: decreased breath sounds Abdomen: distended Laboratory Tests Test 06/12/19 04:40 White Blood Count 12.3 K/UL (4.8-10.8) H Red Blood Count 2.69 M/UL (4.70-6.10) L Hemoglobin 8.3 G/DL (14.2-18.0) L Hematocrit 24.4 % (42.0-52.0) L Mean Corpuscular Volume 91 FL (80-99) Mean Corpuscular Hemoglobin 31.0 PG (27.0-31.0) Mean Corpuscular Hemoglobin Concent 34.1 G/DL (32.0-36.0) Red Cell Distribution Width 15.8 % (11.6-14.8) H Platelet Count 182 K/UL (150-450) Mean Platelet Volume 5.2 FL (6.5-10.1) L Neutrophils (%) (Auto) % (45.0-75.0) Lymphocytes (%) (Auto) % (20.0-45.0) Monocytes (%) (Auto) % (1.0-10.0) Eosinophils (%) (Auto) % (0.0-3.0) Basophils (%) (Auto) % (0.0-2.0) Prothrombin Time 11.9 SEC (9.30-11.50) H Prothromb Time International Ratio 1.1 (0.9-1.1) Activated Partial Thromboplast Time 22 SEC (23-33) L Sodium Level 144 MMOL/L (136-145) Potassium Level 3.7 MMOL/L (3.5-5.1) Chloride Level 107 MMOL/L (98-107) Carbon Dioxide Level 28 MMOL/L (21-32) Anion Gap 9 mmol/L (5-15) Blood Urea Nitrogen 85 mg/dL (7-18) H Creatinine 4.5 MG/DL (0.55-1.30) H Estimat Glomerular Filtration Rate mL/min (>60) Glucose Level 205 MG/DL (74-106) H Calcium Level 7.6 MG/DL (8.5-10.1) L Phosphorus Level 4.0 MG/DL (2.5-4.9) Magnesium Level 2.2 MG/DL (1.8-2.4) Total Bilirubin 0.4 MG/DL (0.2-1.0) Direct Bilirubin 0.1 MG/DL (0.0-0.3) Aspartate Amino Transf (AST/SGOT) 41 U/L (15-37) H Alanine Aminotransferase (ALT/SGPT) 59 U/L (12-78) Alkaline Phosphatase 69 U/L (46-116) C-Reactive Protein, Quantitative < 0.4 mg/dL (0.00-0.90) Pro-B-Type Natriuretic Peptide 6201 pg/mL (0-125) H Total Protein 5.2 G/DL (6.4-8.2) L Albumin 1.8 G/DL (3.4-5.0) L Random Vancomycin Level 12.7 ug/mL Current Medications Medications (Trade) Dose Ordered Sig/Phillip Route PRN Reason Start Time Stop Time Status Last Admin Dose Admin Acetaminophen (Tylenol) 500 mg Q4H PRN GT Mild Pain/Temp > 100.5 05/27/19 07:45 06/19/19 20:29 06/06/19 13:52 Amiodarone HCl (Cordarone) 200 mg DAILY ORAL 06/07/19 16:15 07/07/19 16:14 06/12/19 09:07 Chlorhexidine Gluconate (Reina-Hex 2%) 1 applic DAILY@1999 TOPIC 05/27/19 20:00 06/26/19 19:59 06/11/19 20:07 Daptomycin 500 mg/ Sodium Chloride 55 ml @ 100 mls/hr Q48H IV 05/29/19 13:00 06/23/19 23:59 06/10/19 13:37 Ipratropium [place] (Atrovent) 500 mcg Q4H PRN HHN Shortness of Breath 06/08/19 10:00 06/13/19 09:59 06/08/19 12:37 Lansoprazole (Prevacid) 30 mg BID NG 06/06/19 18:00 07/06/19 17:59 06/12/19 09:06 Lorazepam (Ativan 2mg/ml 1ml) 1 mg Q4H PRN IV For Anxiety/Agitation 06/08/19 10:00 06/15/19 09:59 06/11/19 14:04 Methylprednisolone Sodium Succinate (Solu-MEDROL) 40 mg EVERY 12 HOURS IVP 06/11/19 21:00 07/04/19 20:59 06/12/19 09:07 Metoprolol Tartrate (Lopressor) 5 mg Q5MIN X 3 IVP 06/07/19 16:15 07/07/19 16:14 06/09/19 15:30 Norepinephrine Bitartrate 4 mg/ Dextrose 250 ml @ 0 mls/hr Q24H IV 05/29/19 19:20 06/28/19 19:19 05/30/19 22:45 Vitamin D (Vitamin D) 5,000 intlu DAILY GT 06/07/19 13:00 07/07/19 12:59 06/12/19 09:07 Latha Lowe M.D. Jun 12, 2019 11:13
--- NOTE | 2019-06-12 12:20 | Anethesia Preoperative Eval ---
Anesthesia Pre-op PMH/ROS General Date of Evaluation: Jun 12, 2019 Time of Evaluation: 13:00 Anesthesiologist: Angelika ASA Score: ASA 4 Mallampati Score Class I : Soft palate, uvula, fauces, pillars visible Class II: Soft palate, uvula, fauces visible Class III: Soft palate, base of uvula visible Class IV: Only hard plate visible Mallampati Classification: Class III Surgeon: Desmond Diagnosis: Ventilatory Failure Surgical Procedure: Tracheostomy Anesthesia History: none Family History: no anesthesia problems Allergies: Coded Allergies: No Known Allergies (Unverified , 05/18/19) Medications: see eMAR Patient NPO?: Yes Past Medical History Cardiovascular: Reports: HTN, CAD Pulmonary: 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 Exam Physician Exam Last Vital Signs Date Time Temp Pulse Resp B/P (MAP) Pulse Ox O2 Delivery O2 Flow Rate FiO2 06/12/19 12:00 Mechanical Ventilator 06/12/19 12:00 98.6 88 20 155/80 (105) 99 06/12/19 12:00 40 Constitutional: NAD Neurologic: CN 2-12 intact Cardiovascular: RRR Respiratory: CTA Gastrointestinal: S/NT/ND Airway Exam Mallampati Score: Class III MO: limited ROM: limited Teeth: missing, intact Anesthesia Pre-op A/P Labs Hematology Test 06/12/19 04:40 White Blood Count 12.3 K/UL (4.8-10.8) H Red Blood Count 2.69 M/UL (4.70-6.10) L Hemoglobin 8.3 G/DL (14.2-18.0) L Hematocrit 24.4 % (42.0-52.0) L Mean Corpuscular Volume 91 FL (80-99) Mean Corpuscular Hemoglobin 31.0 PG (27.0-31.0) Mean Corpuscular Hemoglobin Concent 34.1 G/DL (32.0-36.0) Red Cell Distribution Width 15.8 % (11.6-14.8) H Platelet Count 182 K/UL (150-450) Mean Platelet Volume 5.2 FL (6.5-10.1) L Neutrophils (%) (Auto) % (45.0-75.0) Lymphocytes (%) (Auto) % (20.0-45.0) Monocytes (%) (Auto) % (1.0-10.0) Eosinophils (%) (Auto) % (0.0-3.0) Basophils (%) (Auto) % (0.0-2.0) Coagulation Test 06/12/19 04:40 Prothrombin Time 11.9 SEC (9.30-11.50) H Prothromb Time International Ratio 1.1 (0.9-1.1) Activated Partial Thromboplast Time 22 SEC (23-33) L Chemistry Test 06/12/19 04:40 Sodium Level 144 MMOL/L (136-145) Potassium Level 3.7 MMOL/L (3.5-5.1) Chloride Level 107 MMOL/L (98-107) Carbon Dioxide Level 28 MMOL/L (21-32) Anion Gap 9 mmol/L (5-15) Blood Urea Nitrogen 85 mg/dL (7-18) H Creatinine 4.5 MG/DL (0.55-1.30) H Estimat Glomerular Filtration Rate mL/min (>60) Glucose Level 205 MG/DL (74-106) H Calcium Level 7.6 MG/DL (8.5-10.1) L Phosphorus Level 4.0 MG/DL (2.5-4.9) Magnesium Level 2.2 MG/DL (1.8-2.4) Total Bilirubin 0.4 MG/DL (0.2-1.0) Direct Bilirubin 0.1 MG/DL (0.0-0.3) Aspartate Amino Transf (AST/SGOT) 41 U/L (15-37) H Alanine Aminotransferase (ALT/SGPT) 59 U/L (12-78) Alkaline Phosphatase 69 U/L (46-116) C-Reactive Protein, Quantitative < 0.4 mg/dL (0.00-0.90) Pro-B-Type Natriuretic Peptide 6201 pg/mL (0-125) H Total Protein 5.2 G/DL (6.4-8.2) L Albumin 1.8 G/DL (3.4-5.0) L Risk Assessment & Plan Assessment: ASA 4 Plan: GA Status Change Before Surgery: No Pre-Antibiotics Drug: Lawrence Miller MD Jun 12, 2019 12:20
--- NOTE | 2019-06-12 12:39 | General Progress Note ---
Assessment/Plan Problem List: (1) SOB (shortness of breath) ICD Codes: R06.02 - Shortness of breath SNOMED: 860189254 (2) Cellulitis ICD Codes: L03.90 - Cellulitis, unspecified SNOMED: 999627545 (3) Cellulitis of upper extremity ICD Codes: L03.119 - Cellulitis of unspecified part of limb SNOMED: 834723287 Qualifiers: Qualified Codes: L03.113 - Cellulitis of right upper limb (4) Renal insufficiency ICD Codes: N28.9 - Disorder of kidney and ureter, unspecified SNOMED: 006486810, 243921497 (5) Renal failure (ARF), acute on chronic ICD Codes: N17.9 - Acute kidney failure, unspecified; N18.9 - Chronic kidney disease, unspecified SNOMED: 422787211 (6) Anemia ICD Codes: D64.9 - Anemia, unspecified SNOMED: 197917477 (7) Hypothyroidism ICD Codes: E03.9 - Hypothyroidism, unspecified SNOMED: 73623008 (8) UTI (urinary tract infection) ICD Codes: N39.0 - Urinary tract infection, site not specified SNOMED: 54428867 Status: progressing, unchanged, deteriorating Assessment/Plan: dr foss is contacted for trach failure to wean anemia trach per pulmonary chf exacerbaton poor prognosis pna sepsis wound in lower extremity. distal fracture .ortho is already on the case critical condition lwound and le fracture Subjective ROS Limited/Unobtainable: Yes Allergies: Coded Allergies: No Known Allergies (Unverified , 05/18/19) Objective Last 24 Hour Vital Signs Date Time Temp Pulse Resp B/P (MAP) Pulse Ox O2 Delivery O2 Flow Rate FiO2 06/12/19 12:37 75 17 40 06/12/19 12:00 93 06/12/19 12:00 Mechanical Ventilator 06/12/19 12:00 98.6 88 20 155/80 (105) 99 06/12/19 12:00 40 06/12/19 11:00 91 17 154/72 (99) 98 06/12/19 10:51 91 26 40 06/12/19 10:00 86 17 150/78 (102) 98 06/12/19 09:00 91 153/74 (100) 98 06/12/19 08:45 99 06/12/19 08:42 89 26 40 06/12/19 08:00 Mechanical Ventilator 06/12/19 08:00 95 06/12/19 08:00 40 06/12/19 08:00 99.3 93 160/78 (105) 96 06/12/19 07:17 89 24 40 06/12/19 07:00 99.3 89 153/80 (104) 97 06/12/19 06:00 90 21 120/60 (80) 98 06/12/19 05:13 86 22 40 06/12/19 05:00 93 21 117/54 (75) 98 06/12/19 04:00 40 06/12/19 04:00 Mechanical Ventilator 06/12/19 04:00 98.9 93 21 147/79 (101) 99 06/12/19 04:00 95 06/12/19 03:00 96 21 166/79 (108) 99 06/12/19 02:52 92 22 40 06/12/19 02:00 87 18 150/82 (104) 99 06/12/19 01:00 85 17 140/88 (105) 99 06/12/19 00:58 91 22 40 06/12/19 00:00 40 06/12/19 00:00 Mechanical Ventilator 06/12/19 00:00 98.8 85 19 166/78 (107) 99 06/12/19 00:00 88 06/11/19 23:00 92 14 186/74 (111) 99 06/11/19 22:49 97 28 40 06/11/19 22:00 91 17 158/73 (101) 100 06/11/19 21:00 89 27 161/71 (101) 100 06/11/19 20:37 90 25 40 06/11/19 20:00 90 06/11/19 20:00 Mechanical Ventilator 06/11/19 20:00 99.0 89 11 169/90 (116) 100 06/11/19 19:20 169/90 06/11/19 19:00 95 0 169/78 (108) 100 06/11/19 18:50 95 31 40 06/11/19 18:00 88 16 159/81 (107) 99 06/11/19 17:00 80 0 156/68 (97) 99 06/11/19 16:55 68 20 40 06/11/19 16:00 99.1 68 18 138/57 (84) 98 06/11/19 16:00 40 06/11/19 16:00 Mechanical Ventilator 06/11/19 16:00 88 06/11/19 15:00 75 18 137/51 (79) 99 06/11/19 14:44 65 18 40 06/11/19 14:00 109 14 171/79 (109) 97 06/11/19 13:00 100 6 154/75 (101) 100 06/11/19 12:52 69 24 40 Intake and Output 06/11/19 06/12/19 19:00 07:00 Intake Total 700 ml 190 ml Output Total 305 ml 210 ml Balance 395 ml -20 ml Free Water 30 ml IV Total 100 ml Tube Feeding 480 ml 160 ml Other 120 ml Output Urine Total 105 ml 90 ml Stool Total 200 ml 120 ml Laboratory Tests 06/12/19 04:40: White Blood Count 12.3H, Red Blood Count 2.69L, Hemoglobin 8.3L, Hematocrit 24.4L, Mean Corpuscular Volume 91, Mean Corpuscular Hemoglobin 31.0, Mean Corpuscular Hemoglobin Concent 34.1, Red Cell Distribution Width 15.8H, Platelet Count 182, Mean Platelet Volume 5.2L, Neutrophils (%) (Auto) , Lymphocytes (%) (Auto) , Monocytes (%) (Auto) , Eosinophils (%) (Auto) , Basophils (%) (Auto) , Prothrombin Time 11.9H, Prothromb Time International Ratio 1.1, Activated Partial Thromboplast Time 22L, Sodium Level 144, Potassium Level 3.7, Chloride Level 107, Carbon Dioxide Level 28, Anion Gap 9, Blood Urea Nitrogen 85H, Creatinine 4.5H, Estimat Glomerular Filtration Rate , Glucose Level 205H, Calcium Level 7.6L, Phosphorus Level 4.0, Magnesium Level 2.2, Total Bilirubin 0.4, Direct Bilirubin 0.1, Aspartate Amino Transf (AST/SGOT) 41H , Alanine Aminotransferase (ALT/SGPT) 59, Alkaline Phosphatase 69, C-Reactive Protein, Quantitative < 0.4, Pro-B-Type Natriuretic Peptide 6201H, Total Protein 5.2L, Albumin 1.8L, Random Vancomycin Level 12.7 Height (Feet): 5 Height (Inches): 7.00 Weight (Pounds): 200 Respiratory/Chest: rhonchi - bilaterally Joslyn Wiggins MD Jun 12, 2019 12:39
[2019-06-12] MEDS: DAPTOmycin 500 MG in NS 55 ML IV SCH (13:37)
[2019-06-12] MEDS: LORazepam Inj 2mg/ml 1ml IV PRN (13:45)
[2019-06-12] MEDS: Acetaminophen 650mg/20.3ml GT PRN (13:46)
--- NOTE | 2019-06-12 14:19 | Nephrology Progress Note ---
Assessment/Plan Problem List: (1) Renal failure (ARF), acute on chronic Assessment: Cr rising (2) Cellulitis of upper extremity (3) A-fib (4) Pneumonia (5) UTI (urinary tract infection) (6) Anemia Assessment: worsened (7) Hypothyroidism Assessment - KIMO on CKD - Urinary tract infection. - Anemia- - Dehydration. - Cellulitis of Upper extremity - HTN Plan taper steroids as possible dialysis 06/10 next 06/12 Trach 06/13 DC Midodrine DC IV IV Calcium and PO Vit D ad needed Transfuse one unit PRBcs in ICU- intubated BP meds and Mind altering meds discontinued On midodrine check vanco levels - hold vanco doses previously: Per cardiology Anemia kumari- Avoid Nephrotoxics Per ID Allow CHANDA inhibitor to continue as long as renal function does not worsen. PICC line has been removed. CXR: Increased right pleural effusion and similar left pleural effusion. Increased interstitial and hazy opacities throughout the lungs. Subjective ROS Limited/Unobtainable: Yes Objective Objective Last 24 Hour Vital Signs Date Time Temp Pulse Resp B/P (MAP) Pulse Ox O2 Delivery O2 Flow Rate FiO2 06/12/19 13:00 105 20 171/78 (109) 100 06/12/19 12:37 75 17 40 06/12/19 12:00 93 06/12/19 12:00 Mechanical Ventilator 06/12/19 12:00 98.6 88 20 155/80 (105) 99 06/12/19 12:00 40 06/12/19 11:00 91 17 154/72 (99) 98 06/12/19 10:51 91 26 40 06/12/19 10:00 86 17 150/78 (102) 98 06/12/19 09:00 91 153/74 (100) 98 06/12/19 08:45 99 06/12/19 08:42 89 26 40 06/12/19 08:00 Mechanical Ventilator 06/12/19 08:00 95 06/12/19 08:00 40 06/12/19 08:00 99.3 93 160/78 (105) 96 06/12/19 07:17 89 24 40 06/12/19 07:00 99.3 89 153/80 (104) 97 06/12/19 06:00 90 21 120/60 (80) 98 06/12/19 05:13 86 22 40 06/12/19 05:00 93 21 117/54 (75) 98 06/12/19 04:00 40 06/12/19 04:00 Mechanical Ventilator 06/12/19 04:00 98.9 93 21 147/79 (101) 99 06/12/19 04:00 95 06/12/19 03:00 96 21 166/79 (108) 99 06/12/19 02:52 92 22 40 06/12/19 02:00 87 18 150/82 (104) 99 06/12/19 01:00 85 17 140/88 (105) 99 06/12/19 00:58 91 22 40 06/12/19 00:00 40 06/12/19 00:00 Mechanical Ventilator 06/12/19 00:00 98.8 85 19 166/78 (107) 99 06/12/19 00:00 88 06/11/19 23:00 92 14 186/74 (111) 99 06/11/19 22:49 97 28 40 06/11/19 22:00 91 17 158/73 (101) 100 06/11/19 21:00 89 27 161/71 (101) 100 06/11/19 20:37 90 25 40 06/11/19 20:00 90 06/11/19 20:00 Mechanical Ventilator 06/11/19 20:00 99.0 89 11 169/90 (116) 100 06/11/19 19:20 169/90 06/11/19 19:00 95 0 169/78 (108) 100 06/11/19 18:50 95 31 40 06/11/19 18:00 88 16 159/81 (107) 99 06/11/19 17:00 80 0 156/68 (97) 99 06/11/19 16:55 68 20 40 06/11/19 16:00 99.1 68 18 138/57 (84) 98 06/11/19 16:00 40 06/11/19 16:00 Mechanical Ventilator 06/11/19 16:00 88 06/11/19 15:00 75 18 137/51 (79) 99 06/11/19 14:44 65 18 40 Intake and Output 06/11/19 06/12/19 18:59 06:59 Intake Total 700 ml 230 ml Output Total 295 ml 210 ml Balance 405 ml 20 ml Free Water 30 ml IV Total 100 ml Tube Feeding 480 ml 200 ml Other 120 ml Output Urine Total 95 ml 90 ml Stool Total 200 ml 120 ml Laboratory Tests 06/12/19 04:40: White Blood Count 12.3H, Red Blood Count 2.69L, Hemoglobin 8.3L, Hematocrit 24.4L, Mean Corpuscular Volume 91, Mean Corpuscular Hemoglobin 31.0, Mean Corpuscular Hemoglobin Concent 34.1, Red Cell Distribution Width 15.8H, Platelet Count 182, Mean Platelet Volume 5.2L, Neutrophils (%) (Auto) , Lymphocytes (%) (Auto) , Monocytes (%) (Auto) , Eosinophils (%) (Auto) , Basophils (%) (Auto) , Prothrombin Time 11.9H, Prothromb Time International Ratio 1.1, Activated Partial Thromboplast Time 22L, Sodium Level 144, Potassium Level 3.7, Chloride Level 107, Carbon Dioxide Level 28, Anion Gap 9, Blood Urea Nitrogen 85H, Creatinine 4.5H, Estimat Glomerular Filtration Rate , Glucose Level 205H, Calcium Level 7.6L, Phosphorus Level 4.0, Magnesium Level 2.2, Total Bilirubin 0.4, Direct Bilirubin 0.1, Aspartate Amino Transf (AST/SGOT) 41H , Alanine Aminotransferase (ALT/SGPT) 59, Alkaline Phosphatase 69, C-Reactive Protein, Quantitative < 0.4, Pro-B-Type Natriuretic Peptide 6201H, Total Protein 5.2L, Albumin 1.8L, Random Vancomycin Level 12.7 Height (Feet): 5 Height (Inches): 7.00 Weight (Pounds): 200 General Appearance: no apparent distress Respiratory/Chest: decreased breath sounds Abdomen: soft, distended Objective no change Reinier Mera MD Jun 12, 2019 14:19
--- NOTE | 2019-06-12 16:18 | Surgery Progress Note ---
Surgery Progress Note Subjective Additional Comments OR tomorrow for trach eliquis held Objective Last 24 Hour Vital Signs Date Time Temp Pulse Resp B/P (MAP) Pulse Ox O2 Delivery O2 Flow Rate FiO2 06/12/19 16:00 Mechanical Ventilator 06/12/19 15:00 63 20 110/45 (66) 100 06/12/19 14:19 69 18 40 06/12/19 14:00 66 20 137/61 (86) 100 06/12/19 13:00 105 20 171/78 (109) 100 06/12/19 12:37 75 17 40 06/12/19 12:00 93 06/12/19 12:00 Mechanical Ventilator 06/12/19 12:00 98.6 88 20 155/80 (105) 99 06/12/19 12:00 40 06/12/19 11:00 91 17 154/72 (99) 98 06/12/19 10:51 91 26 40 06/12/19 10:00 86 17 150/78 (102) 98 06/12/19 09:00 91 153/74 (100) 98 06/12/19 08:45 99 06/12/19 08:42 89 26 40 06/12/19 08:00 Mechanical Ventilator 06/12/19 08:00 95 06/12/19 08:00 40 06/12/19 08:00 99.3 93 160/78 (105) 96 06/12/19 07:17 89 24 40 06/12/19 07:00 99.3 89 153/80 (104) 97 06/12/19 06:00 90 21 120/60 (80) 98 06/12/19 05:13 86 22 40 06/12/19 05:00 93 21 117/54 (75) 98 06/12/19 04:00 40 06/12/19 04:00 Mechanical Ventilator 06/12/19 04:00 98.9 93 21 147/79 (101) 99 06/12/19 04:00 95 06/12/19 03:00 96 21 166/79 (108) 99 06/12/19 02:52 92 22 40 06/12/19 02:00 87 18 150/82 (104) 99 06/12/19 01:00 85 17 140/88 (105) 99 06/12/19 00:58 91 22 40 06/12/19 00:00 40 06/12/19 00:00 Mechanical Ventilator 06/12/19 00:00 98.8 85 19 166/78 (107) 99 06/12/19 00:00 88 06/11/19 23:00 92 14 186/74 (111) 99 06/11/19 22:49 97 28 40 06/11/19 22:00 91 17 158/73 (101) 100 06/11/19 21:00 89 27 161/71 (101) 100 06/11/19 20:37 90 25 40 06/11/19 20:00 90 06/11/19 20:00 Mechanical Ventilator 06/11/19 20:00 99.0 89 11 169/90 (116) 100 06/11/19 19:20 169/90 06/11/19 19:00 95 0 169/78 (108) 100 06/11/19 18:50 95 31 40 06/11/19 18:00 88 16 159/81 (107) 99 06/11/19 17:00 80 0 156/68 (97) 99 06/11/19 16:55 68 20 40 I&O Intake and Output 06/11/19 06/12/19 19:00 07:00 Intake Total 700 ml 190 ml Output Total 305 ml 210 ml Balance 395 ml -20 ml Free Water 30 ml IV Total 100 ml Tube Feeding 480 ml 160 ml Other 120 ml Output Urine Total 105 ml 90 ml Stool Total 200 ml 120 ml Dressing: other Wound: other Drains: other Cardiovascular: RSR Respiratory: decreased breath sounds Abdomen: soft, present bowel sounds Extremities: no cyanosis Laboratory Tests Test 06/12/19 04:40 White Blood Count 12.3 K/UL (4.8-10.8) H Red Blood Count 2.69 M/UL (4.70-6.10) L Hemoglobin 8.3 G/DL (14.2-18.0) L Hematocrit 24.4 % (42.0-52.0) L Mean Corpuscular Volume 91 FL (80-99) Mean Corpuscular Hemoglobin 31.0 PG (27.0-31.0) Mean Corpuscular Hemoglobin Concent 34.1 G/DL (32.0-36.0) Red Cell Distribution Width 15.8 % (11.6-14.8) H Platelet Count 182 K/UL (150-450) Mean Platelet Volume 5.2 FL (6.5-10.1) L Neutrophils (%) (Auto) % (45.0-75.0) Lymphocytes (%) (Auto) % (20.0-45.0) Monocytes (%) (Auto) % (1.0-10.0) Eosinophils (%) (Auto) % (0.0-3.0) Basophils (%) (Auto) % (0.0-2.0) Prothrombin Time 11.9 SEC (9.30-11.50) H Prothromb Time International Ratio 1.1 (0.9-1.1) Activated Partial Thromboplast Time 22 SEC (23-33) L Sodium Level 144 MMOL/L (136-145) Potassium Level 3.7 MMOL/L (3.5-5.1) Chloride Level 107 MMOL/L (98-107) Carbon Dioxide Level 28 MMOL/L (21-32) Anion Gap 9 mmol/L (5-15) Blood Urea Nitrogen 85 mg/dL (7-18) H Creatinine 4.5 MG/DL (0.55-1.30) H Estimat Glomerular Filtration Rate mL/min (>60) Glucose Level 205 MG/DL (74-106) H Calcium Level 7.6 MG/DL (8.5-10.1) L Phosphorus Level 4.0 MG/DL (2.5-4.9) Magnesium Level 2.2 MG/DL (1.8-2.4) Total Bilirubin 0.4 MG/DL (0.2-1.0) Direct Bilirubin 0.1 MG/DL (0.0-0.3) Aspartate Amino Transf (AST/SGOT) 41 U/L (15-37) H Alanine Aminotransferase (ALT/SGPT) 59 U/L (12-78) Alkaline Phosphatase 69 U/L (46-116) C-Reactive Protein, Quantitative < 0.4 mg/dL (0.00-0.90) Pro-B-Type Natriuretic Peptide 6201 pg/mL (0-125) H Total Protein 5.2 G/DL (6.4-8.2) L Albumin 1.8 G/DL (3.4-5.0) L Random Vancomycin Level 12.7 ug/mL Plan Problems: (1) Cellulitis of upper extremity Assessment & Plan: 84M with RUE cellulitis, edema, erythema. no drainage. has RUE picc line recommend removal of picc. removed at bedside by myself on 05/18. pressure held, hemostasis noted, dressings applied. cath tip sent for cultures DVT duplex studies with acute thrombus IV Abx as per ID UA pending Cx results keep RUE elevated on pillows okay for diet AM labs anticoagulation off load pressure for dti noted cellulitis and edema improved deteriorated intubated on vent support likely respiratory insufficiency labs ordered wean vent okay for tube feeds via ng - cont as tolerated wean vent am labs HD as per renal now with right IJ Temp HD cath will follow with recs thank you (2) Cellulitis Assessment & Plan: Pt presented on admission with reabsorbing blister lateral R heel. Base of injury indurated with delineated margins(L)4cm x (W)3cm.Non- blanching erythema Sacrum ,R and L buttocks(L)8.5cm x (W)9cm, with a partial thickness pressure injury noted to L buttocks. Base of wound is moist and viable (L)2.3cm x (W)3cm. Area around wound tender when minimally palpated. Pt noted to be wearing splint L foot. Per pt he fractured foot a few weeks ago. Splint removed to assess skin integrity. L heel and malleoli are pink and blanchable.Cavilon Skin Barrier applied to L heel and malleoli and each area covered with Optifoam drsg. Splint reapplied. No other skin concerns noted. unchanged Partial Thickness pressure injury L buttocks resolved . Non-blanching erythema without induration noted to Sacrum,R and L buttocks. (L)8cm x (W)9cm. Scrotum is grossly enlarged and is erythematous and macerated. Penile shaft is grossly swollen .Pt noted to have a partially opened blood blister with 25% biofilm at base of shaft of penis.(L)4.5cm x (W)2.5cm. Bilat groin, medial /posterior aspects of both upper thighs are erythematous and denuded. R lower ext edematous. R heel blister reabsorbed. Non--blanching erythema without induration noted to R heel. Splint removed from L foot. Optifoam drsgs removed from malleoli and heel. Pt noted to have developed several DTPI's despite having Optifoam drsgs. DTPI noted to L achilles . Base of wound is purple and fluctuant (L)0.6cm x (W) 2.7cm.DTPI noted to medial L malleolus(L)0.2cm x (W)0.3cm.Base of wound is purple with marginal erythema. DTPI noted to dorsal L foot. Base of wound is purple with marginal erythema along borders (L)0.9cm x (W)0.5cm.L heel is boggy with non-blanching erythema. Cavilon Skin Barrier applied to affected areas on L foot . Dorsal L foot ,Achilles .R and L malleoli and L heel each covered with Optifoam drsg. Non-blanching erythema without induration noted to lateral L tibia. At plantar aspect of L hallux small dry eschar noted. No erythema or fluctuance periwound. (L)0.5cm x (W)0.4cm. IN addition to Optifoam drsgs placed over each bony prominence of L foot ABD pads placed over dorsal and plantar L foot , Abd pads aligned along L tibia. Splint realigned to L foot Wrapped loosely with Kerlix then wrapped loosely with [place] wrap. L foot floated off mattress with pillow. Tx.Plan: Apply Cavilon to Dorsal L foot. L achilles .Medial/Lateral Malleoli L Foot and L heel. Cover each site with Optifoam drsg. Change every 7 days and prn. Apply Cavilon Plantar L foot. Cover with Optifoam drsg. Change every 7 days and prn. Apply Moisture Barrier Paste to sacrum. Cover with Optifoam drsg. Changee very 7 days and prn. Apply Cavilon Skin Barrier to Both heels. Cover each heel with Optifoam drsg. Change every 7 days and prn. Cleanse wound Shaft of penis with saline. Apply Moisture Barrier Paste Daily and prn. Apply Moisture Barrier Paste to Bilat groin, Scrotum, Medial/Posterior aspects of both upper thighs with each perineal care. Reposition at least every 2hours or as tolerated. Off-load heels with pillows. APM/LA L Mattress overlay. (3) SOB (shortness of breath) Assessment & Plan: Unfortunately patient has been in the intensive care unit on ventilatory support unable to be weaned from vent. Will likely require prolonged ventilatory support. Respiratory insufficiency not improving. Patient is full code as per identifiable documentation in patient's chart and medical record. No family or next kin available. Given patient's wishes current condition and course of a care tracheostomy is indicated recommended. Tracheostomy would be medically necessary as a next step in patient's care plan. We will proceed with tracheostomy tomorrow discussed with patient's medical multidisciplinary team Bennett Logan Jun 12, 2019 16:18
[2019-06-12] MEDS: Dyna-Hex 2% Top Sol 2oz TOPIC SCH (21:50)
--- NOTE | 2019-06-12 23:45 | Progress Note ---
DATE: 06/12/2019 SUBJECTIVE: His abdomen remains clinically unchanged. He has been intubated on AC mode. He is unable to wean. PHYSICAL EXAMINATION: VITAL SIGNS: Blood pressure is 120/60, heart rate 80, respirations 20, and he is afebrile. CHEST: Decreased breath sounds bilaterally with normal heart sounds. ABDOMEN: Soft. EXTREMITIES: There is 2 to 3 edema. IMPRESSION: 1. Acute renal failure. 2. Acute respiratory failure. 3. Chronic obstructive pulmonary disease. 4. Cardiac arrhythmias. DISCUSSION: The patient needs tracheostomy. Discussed with Dr. Logan. Continue vent as is and follow carefully. Taper and decrease steroids. Arsen Whittaker M.D. DR: SOFYA JOB#: [id number] CC:
[2019-06-13] VITALS (24 sets, daily range): BP systolic 95–179; BP diastolic 50–120
[2019-06-13 05:57] LABS: ALANINE AMINOTRANSFERASE 68 U/L (12-78); ALBUMIN 1.6 G/DL (3.4-5.0); ALBUMIN/GLOBULIN RATIO 0.6 (1.0-2.7); ALKALINE PHOSPHATASE 56 U/L (46-116); ANION GAP 6 mmol/L (5-15); ASPARTATE AMINO TRANSFERASE 48 U/L (15-37); BILIRUBIN,TOTAL 0.3 MG/DL (0.2-1.0); BLOOD UREA NITROGEN 63 mg/dL (7-18); CALCIUM 7.5 MG/DL (8.5-10.1); CARBON DIOXIDE 31 MMOL/L (21-32); CHLORIDE 109 MMOL/L (98-107); CREATININE 3.6 MG/DL (0.55-1.30); POTASSIUM 3.2 MMOL/L (3.5-5.1); SODIUM 146 MMOL/L (136-145)
[2019-06-13 06:58] LABS: HEMATOCRIT 22.4 % (42.0-52.0); HEMOGLOBIN 7.6 G/DL (14.2-18.0); MEAN CORPUSCULAR VOLUME 90 FL (80-99); PLATELET COUNT 145 K/UL (150-450); RED CELL DISTRIBUTION WIDTH 15.8 % (11.6-14.8); WHITE BLOOD COUNT 9.8 K/UL (4.8-10.8)
--- NOTE | 2019-06-13 08:35 | Hematology/Onc Progress Note ---
Assessment/Plan Assessment/Plan # Anemia of chronic disease due to underlying chronic medical issues, multifactorial v Gi bleed --> Anemia workup has been reviewed, rule out gi bleed --> No evidence of hemolysis is noted, peripheral smear has been reviewed. --> Hgb goal >7. Transfuse prn. --> Epogen or iron at this time is not particularly indicated --> Medications have been reviewed --> low threshold for gi evaluation in case has occult + --> hgb trend: 9.3-->9.7-->8.1-->7.6-->8-->9.4-->9.2->7.5-->9.3-->8-->8.1-->8.6- ->7.8-->8.3-->7.6 --> transf 05/28/19 with 1 unit prbc, 1 unit on 06/03 --> transfusion is a emergency, no family, no poa, is okay to transfuse # Right upper arm extremity axillary vein dvt --> agree to continue eliquis ONCE bleeding resolved --> continue for total of minimum of 3 months --> rescan arm in 3 mo # Thrombocytopenia is due to infection, i.e. cellulitis of upper extremity, likely picc line infection --> as per id on ax --> picc off --> levoflox/vanc-->zosyn/vanc--> zosyn-->dapto/zosyn --> plt trend 208-->132-->146k-->159-->217-->211-->145 # Respiratory failure s/p vent --> has been failing weaning --> trach as per Desmond Whittaker # Renal insufficiency --> per Dr. Mera # Pneumonia --> abx per id # Dehydration. --> goal of euvolemia # Paroxysmal Atrial fibrillation with rapid ventricular response was on amiodarone gtt, now in sinus rhythm. --> per cards On PO amiodarone 200 bid, Lopressor 25 bid # Dysphagia with ng tube # Dvt ppx eliquis--> continued The timing of this note does not necessarily reflect the time of the patient was seen. Greatly appreciate consultation. Subjective Allergies: Coded Allergies: No Known Allergies (Unverified , 05/18/19) Subjective 05/24: awake and alert, v mask, labs reviewed, apixaban 05/25: as per gi, ngt and eliquis tolerated 05/26: pending clearance but still with ng and nonrebreather 05/27: hypoxic yesterday, deteriorated, coded, now intubated, icu, labs noted 05/28: icu, levophed gtt, hgb 7.6, repeat cbc 05/29: remains in the icu, given prbc last night, no bleeding 05/30: no events, no bleeding, ++ fredo and on pressor 05/31: intubated, bp better on pressor, no bleeding, coag ordered 06/02: reamins ill appearing, on vent, labs noted, on vent, poorly responsive 06/03: no events, no bleeding, labs noted, dw surgery, and Rn, monitoring plt 06/04: tolerating tube feeds, labs noted, in the icu 06/05: restraints, cxr unchanged, anticoagulants on hold until further notice 06/06: no events, no bleeding, no night sweats, no bleeding 06/08: icu, unable to wean per resp, apixaban restarted, labs reviewed 06/09: minimally responsive, on vent and gt feeds, no bleeding 06/10: no acute events, failed to wean, hd for today, h/h stable 06/11: remains altered, may need trach, coags ordered, no bleeding currently 06/12: no events, no bleeding, trach pending, no major changes 06/13: icu, weaning failed, egd pending, hgb 7.6, repeat cbc Objective Objective Current Medications Medications (Trade) Dose Ordered Sig/Phillip Route PRN Reason Start Time Stop Time Status Last Admin Dose Admin Acetaminophen (Tylenol) 500 mg Q4H PRN GT Mild Pain/Temp > 100.5 05/27/19 07:45 06/19/19 20:29 06/12/19 13:46 Amiodarone HCl (Cordarone) 200 mg DAILY ORAL 06/07/19 16:15 07/07/19 16:14 06/12/19 09:07 Chlorhexidine Gluconate (Reina-Hex 2%) 1 applic DAILY@1999 TOPIC 05/27/19 20:00 06/26/19 19:59 06/12/19 21:50 Daptomycin 500 mg/ Sodium Chloride 55 ml @ 100 mls/hr Q48H IV 05/29/19 13:00 06/23/19 23:59 06/12/19 13:37 Ipratropium [place] (Atrovent) 500 mcg Q4H PRN HHN Shortness of Breath 06/08/19 10:00 06/13/19 09:59 06/08/19 12:37 Lansoprazole (Prevacid) 30 mg BID NG 06/06/19 18:00 07/06/19 17:59 06/12/19 17:37 Lorazepam (Ativan 2mg/ml 1ml) 1 mg Q4H PRN IV For Anxiety/Agitation 06/08/19 10:00 06/15/19 09:59 06/12/19 13:45 Methylprednisolone Sodium Succinate (Solu-MEDROL) 20 mg EVERY 12 HOURS IVP 06/13/19 09:00 07/04/19 20:59 Metoprolol Tartrate (Lopressor) 5 mg Q5MIN X 3 IVP 06/07/19 16:15 07/07/19 16:14 06/09/19 15:30 Norepinephrine Bitartrate 4 mg/ Dextrose 250 ml @ 0 mls/hr Q24H IV 05/29/19 19:20 06/28/19 19:19 05/30/19 22:45 Vitamin D (Vitamin D) 5,000 intlu DAILY GT 06/07/19 13:00 07/07/19 12:59 06/12/19 09:07 Last 24 Hour Vital Signs Date Time Temp Pulse Resp B/P (MAP) Pulse Ox O2 Delivery O2 Flow Rate FiO2 06/13/19 07:22 100 06/13/19 07:18 84 23 40 40 06/13/19 07:00 73 16 137/56 (83) 100 06/13/19 06:18 87 22 95 Mechanical Ventilator 45 06/13/19 06:00 64 16 121/66 (84) 97 06/13/19 05:00 83 14 144/63 (90) 99 06/13/19 04:45 82 21 40 06/13/19 04:00 40 06/13/19 04:00 Mechanical Ventilator 06/13/19 04:00 80 06/13/19 04:00 98.8 80 22 146/62 (90) 98 06/13/19 03:34 84 22 40 06/13/19 03:00 84 19 150/64 (92) 99 06/13/19 02:00 101 29 133/70 (91) 100 06/13/19 01:27 93 25 40 06/13/19 01:00 98.8 93 23 148/72 (97) 98 06/13/19 00:00 99 06/13/19 00:00 Mechanical Ventilator 06/13/19 00:00 40 06/13/19 00:00 99 15 137/74 (95) 99 06/12/19 23:25 101 25 40 06/12/19 23:00 103 15 142/67 (92) 99 06/12/19 22:00 105 20 138/77 (97) 97 06/12/19 21:09 96 27 40 06/12/19 21:00 123 32 109/52 (71) 96 06/12/19 20:00 40 06/12/19 20:00 115 06/12/19 20:00 98.6 115 34 119/77 (91) 98 06/12/19 20:00 Mechanical Ventilator 06/12/19 19:20 119/77 06/12/19 19:09 84 27 40 06/12/19 19:00 68 18 123/50 (74) 99 06/12/19 18:00 67 17 126/53 (77) 100 06/12/19 17:00 70 17 134/51 (78) 100 06/12/19 16:54 65 17 40 06/12/19 16:00 98.6 78 20 143/56 (85) 100 06/12/19 16:00 40 06/12/19 16:00 68 06/12/19 16:00 Mechanical Ventilator 06/12/19 15:00 63 20 110/45 (66) 100 06/12/19 14:19 69 18 40 06/12/19 14:00 66 20 137/61 (86) 100 06/12/19 13:00 105 20 171/78 (109) 100 06/12/19 12:37 75 17 40 06/12/19 12:00 93 06/12/19 12:00 Mechanical Ventilator 06/12/19 12:00 98.6 88 20 155/80 (105) 99 06/12/19 12:00 40 06/12/19 11:00 91 17 154/72 (99) 98 06/12/19 10:51 91 26 40 06/12/19 10:00 86 17 150/78 (102) 98 06/12/19 09:00 91 153/74 (100) 98 06/12/19 08:45 99 06/12/19 08:42 89 26 40 06/12/19 08:00 Mechanical Ventilator 06/12/19 08:00 95 06/12/19 08:00 40 06/12/19 08:00 99.3 93 160/78 (105) 96 06/12/19 07:17 89 24 40 06/12/19 07:00 99.3 89 153/80 (104) 97 06/12/19 06:00 90 21 120/60 (80) 98 06/12/19 05:13 86 22 40 06/12/19 05:00 93 21 117/54 (75) 98 06/12/19 04:00 40 06/12/19 04:00 Mechanical Ventilator 06/12/19 04:00 98.9 93 21 147/79 (101) 99 06/12/19 04:00 95 06/12/19 03:00 96 21 166/79 (108) 99 06/12/19 02:52 92 22 40 06/12/19 02:00 87 18 150/82 (104) 99 06/12/19 01:00 85 17 140/88 (105) 99 06/12/19 00:58 91 22 40 06/12/19 00:00 40 06/12/19 00:00 Mechanical Ventilator 06/12/19 00:00 98.8 85 19 166/78 (107) 99 06/12/19 00:00 88 06/11/19 23:00 92 14 186/74 (111) 99 06/11/19 22:49 97 28 40 06/11/19 22:00 91 17 158/73 (101) 100 06/11/19 21:00 89 27 161/71 (101) 100 06/11/19 20:37 90 25 40 06/11/19 20:00 90 06/11/19 20:00 Mechanical Ventilator 06/11/19 20:00 99.0 89 11 169/90 (116) 100 06/11/19 19:20 169/90 06/11/19 19:00 95 0 169/78 (108) 100 06/11/19 18:50 95 31 40 06/11/19 18:00 88 16 159/81 (107) 99 06/11/19 17:00 80 0 156/68 (97) 99 06/11/19 16:55 68 20 40 06/11/19 16:00 99.1 68 18 138/57 (84) 98 06/11/19 16:00 40 06/11/19 16:00 Mechanical Ventilator 06/11/19 16:00 88 06/11/19 15:00 75 18 137/51 (79) 99 06/11/19 14:44 65 18 40 06/11/19 14:00 109 14 171/79 (109) 97 06/11/19 13:00 100 6 154/75 (101) 100 06/11/19 12:52 69 24 40 06/11/19 12:00 Mechanical Ventilator 06/11/19 12:00 99.2 97 0 127/72 (90) 98 06/11/19 12:00 87 06/11/19 12:00 40 06/11/19 11:10 65 18 40 06/11/19 11:00 89 0 161/76 (104) 98 06/11/19 10:00 73 0 154/73 (100) 98 06/11/19 09:20 67 19 40 06/11/19 09:00 90 21 156/73 (100) 100 Intake and Output 06/12/19 06/13/19 19:00 07:00 Intake Total 505 ml 200 ml Output Total 595 ml 305 ml Balance -90 ml -105 ml IV Total 55 ml Tube Feeding 400 ml 200 ml Other 50 ml Output Urine Total 195 ml 105 ml Stool Total 400 ml 200 ml Labs Test 06/11/19 05:20 06/12/19 04:40 06/13/19 03:55 White Blood Count 10.4 K/UL (4.8-10.8) 12.3 K/UL (4.8-10.8) 9.8 K/UL (4.8-10.8) Red Blood Count 2.53 M/UL (4.70-6.10) 2.69 M/UL (4.70-6.10) 2.50 M/UL (4.70-6.10) Hemoglobin 7.8 G/DL (14.2-18.0) 8.3 G/DL (14.2-18.0) 7.6 G/DL (14.2-18.0) Hematocrit 23.0 % (42.0-52.0) 24.4 % (42.0-52.0) 22.4 % (42.0-52.0) Mean Corpuscular Volume 91 FL (80-99) 91 FL (80-99) 90 FL (80-99) Mean Corpuscular Hemoglobin 30.8 PG (27.0-31.0) 31.0 PG (27.0-31.0) 30.6 PG (27.0-31.0) Mean Corpuscular Hemoglobin Concent 34.0 G/DL (32.0-36.0) 34.1 G/DL (32.0-36.0) 34.1 G/DL (32.0-36.0) Red Cell Distribution Width 15.5 % (11.6-14.8) 15.8 % (11.6-14.8) 15.8 % (11.6-14.8) Platelet Count 165 K/UL (150-450) 182 K/UL (150-450) 145 K/UL (150-450) Mean Platelet Volume 5.8 FL (6.5-10.1) 5.2 FL (6.5-10.1) 5.7 FL (6.5-10.1) Neutrophils (%) (Auto) % (45.0-75.0) % (45.0-75.0) % (45.0-75.0) Lymphocytes (%) (Auto) % (20.0-45.0) % (20.0-45.0) % (20.0-45.0) Monocytes (%) (Auto) % (1.0-10.0) % (1.0-10.0) % (1.0-10.0) Eosinophils (%) (Auto) % (0.0-3.0) % (0.0-3.0) % (0.0-3.0) Basophils (%) (Auto) % (0.0-2.0) % (0.0-2.0) % (0.0-2.0) Differential Total Cells Counted 100 Neutrophils % (Manual) 98 % (45-75) Lymphocytes % (Manual) 1 % (20-45) Monocytes % (Manual) 1 % (1-10) Eosinophils % (Manual) 0 % (0-3) Basophils % (Manual) 0 % (0-2) Band Neutrophils 0 % (0-8) Platelet Estimate Adequate Platelet Morphology Normal Anisocytosis 1+ Sodium Level 143 MMOL/L (136-145) 144 MMOL/L (136-145) 146 MMOL/L (136-145) Potassium Level 3.4 MMOL/L (3.5-5.1) 3.7 MMOL/L (3.5-5.1) 3.2 MMOL/L (3.5-5.1) Chloride Level 107 MMOL/L (98-107) 107 MMOL/L (98-107) 109 MMOL/L (98-107) Carbon Dioxide Level 27 MMOL/L (21-32) 28 MMOL/L (21-32) 31 MMOL/L (21-32) Anion Gap 9 mmol/L (5-15) 9 mmol/L (5-15) 6 mmol/L (5-15) Blood Urea Nitrogen 69 mg/dL (7-18) 85 mg/dL (7-18) 63 mg/dL (7-18) Creatinine 4.1 MG/DL (0.55-1.30) 4.5 MG/DL (0.55-1.30) 3.6 MG/DL (0.55-1.30) Estimat Glomerular Filtration Rate mL/min (>60) mL/min (>60) mL/min (>60) Glucose Level 207 MG/DL (74-106) 205 MG/DL (74-106) 123 MG/DL (74-106) Calcium Level 7.2 MG/DL (8.5-10.1) 7.6 MG/DL (8.5-10.1) 7.5 MG/DL (8.5-10.1) Phosphorus Level 3.6 MG/DL (2.5-4.9) 4.0 MG/DL (2.5-4.9) Magnesium Level 2.2 MG/DL (1.8-2.4) 2.2 MG/DL (1.8-2.4) Total Bilirubin 0.3 MG/DL (0.2-1.0) 0.4 MG/DL (0.2-1.0) 0.3 MG/DL (0.2-1.0) Aspartate Amino Transf (AST/SGOT) 52 U/L (15-37) 41 U/L (15-37) 48 U/L (15-37) Alanine Aminotransferase (ALT/SGPT) 55 U/L (12-78) 59 U/L (12-78) 68 U/L (12-78) Alkaline Phosphatase 68 U/L (46-116) 69 U/L (46-116) 56 U/L (46-116) C-Reactive Protein, Quantitative < 0.4 mg/dL (0.00-0.90) < 0.4 mg/dL (0.00-0.90) Pro-B-Type Natriuretic Peptide 6831 pg/mL (0-125) 6201 pg/mL (0-125) Total Protein 4.7 G/DL (6.4-8.2) 5.2 G/DL (6.4-8.2) 4.5 G/DL (6.4-8.2) Albumin 1.5 G/DL (3.4-5.0) 1.8 G/DL (3.4-5.0) 1.6 G/DL (3.4-5.0) Globulin 3.2 g/dL 2.9 g/dL Albumin/Globulin Ratio 0.5 (1.0-2.7) 0.6 (1.0-2.7) Prothrombin Time 11.9 SEC (9.30-11.50) Prothromb Time International Ratio 1.1 (0.9-1.1) Activated Partial Thromboplast Time 22 SEC (23-33) Direct Bilirubin 0.1 MG/DL (0.0-0.3) Random Vancomycin Level 12.7 ug/mL Height (Feet): 5 Height (Inches): 7.00 Weight (Pounds): 182 Objective PE: Vitals: reviewed General Appearance: NAD HEENT: normocephalic, atraumatic++ ngt Neck: non-tender, normal alignment Respiratory/Chest: VENT++ Cardiovascular/Chest: normal peripheral pulses, normal rate Abdomen: normal bowel sounds, soft, nontender Extremities: normal range of motion ++ right arm swelling Suleman Addison MD Jun 13, 2019 08:35
[2019-06-13] MEDS: Solu-MEDROL 40mg Inj IVP SCH ×2 (09:18→20:31)
[2019-06-13] MEDS: Amiodarone 200mg tab ORAL SCH (09:18)
[2019-06-13] MEDS: Vitamin D 1000 IU Tab GT SCH (09:18)
[2019-06-13] MEDS ORDERED: Sodium Chloride for KCL Premix X 4hrs IV SCH (09:30)
--- NOTE | 2019-06-13 09:38 | Anethesia Preoperative Eval ---
Anesthesia Pre-op PMH/ROS General Date of Evaluation: Jun 13, 2019 Time of Evaluation: 09:00 Anesthesiologist: [email or web address] ASA Score: ASA 4 Mallampati Score Class I : Soft palate, uvula, fauces, pillars visible Class II: Soft palate, uvula, fauces visible Class III: Soft palate, base of uvula visible Class IV: Only hard plate visible Mallampati Classification: Class II Surgeon: murali Diagnosis: dysphagia Surgical Procedure: egd/peg Anesthesia History: none Social History: smoking - former smoker Family History: no anesthesia problems Allergies: Coded Allergies: No Known Allergies (Unverified , 05/18/19) Medications: see eMAR Patient NPO?: Yes NPO Date: Jun 13, 2019 NPO Time: 0000 Past Medical History Cardiovascular: Reports: HTN Pulmonary: Reports: COPD, other - repiratory failure intubated on mechanical ventilator Gastrointestinal/Genitourinary: Reports: other - dialysis Endocrine: Reports: DM Anesthesia Pre-op Phys. Exam Physician Exam Last Vital Signs Date Time Temp Pulse Resp B/P (MAP) Pulse Ox O2 Delivery O2 Flow Rate FiO2 06/13/19 09:10 75 20 40 06/13/19 08:00 Mechanical Ventilator 06/13/19 08:00 138/69 (92) 98 06/13/19 04:00 98.8 Constitutional: NAD Neurologic: other - obtunded Cardiovascular: RRR Respiratory: other - intubated on mechanical ventilator Gastrointestinal: S/NT/ND Airway Exam Mallampati Score: Class III MO: limited Neck: flexible TMD: 2fb ROM: limited Anesthesia Pre-op A/P Labs Hematology Test 06/13/19 03:55 White Blood Count 9.8 K/UL (4.8-10.8) Red Blood Count 2.50 M/UL (4.70-6.10) L Hemoglobin 7.6 G/DL (14.2-18.0) L Hematocrit 22.4 % (42.0-52.0) L Mean Corpuscular Volume 90 FL (80-99) Mean Corpuscular Hemoglobin 30.6 PG (27.0-31.0) Mean Corpuscular Hemoglobin Concent 34.1 G/DL (32.0-36.0) Red Cell Distribution Width 15.8 % (11.6-14.8) H Platelet Count 145 K/UL (150-450) L Mean Platelet Volume 5.7 FL (6.5-10.1) L Neutrophils (%) (Auto) % (45.0-75.0) Lymphocytes (%) (Auto) % (20.0-45.0) Monocytes (%) (Auto) % (1.0-10.0) Eosinophils (%) (Auto) % (0.0-3.0) Basophils (%) (Auto) % (0.0-2.0) Chemistry Test 06/13/19 03:55 Sodium Level 146 MMOL/L (136-145) H Potassium Level 3.2 MMOL/L (3.5-5.1) L Chloride Level 109 MMOL/L (98-107) H Carbon Dioxide Level 31 MMOL/L (21-32) Anion Gap 6 mmol/L (5-15) Blood Urea Nitrogen 63 mg/dL (7-18) H Creatinine 3.6 MG/DL (0.55-1.30) H Estimat Glomerular Filtration Rate mL/min (>60) Glucose Level 123 MG/DL (74-106) H Calcium Level 7.5 MG/DL (8.5-10.1) L Total Bilirubin 0.3 MG/DL (0.2-1.0) Aspartate Amino Transf (AST/SGOT) 48 U/L (15-37) H Alanine Aminotransferase (ALT/SGPT) 68 U/L (12-78) Alkaline Phosphatase 56 U/L (46-116) Total Protein 4.5 G/DL (6.4-8.2) L Albumin 1.6 G/DL (3.4-5.0) L Globulin 2.9 g/dL Albumin/Globulin Ratio 0.6 (1.0-2.7) L Risk Assessment & Plan Assessment: [email or web address] Plan: mac Status Change Before Surgery: No Pre-Antibiotics Drug: Bernie Oliver MD Jun 13, 2019 09:38
[2019-06-13] MEDS ORDERED: Atropine Inj 1mg/10ml Syr IV PRN (10:00)
[2019-06-13] MEDS ORDERED: DiphenhydrAMINE 50mg/ml Inj IVP PRN (10:00)
[2019-06-13] MEDS ORDERED: fentaNYL 100 mcg/2 mL IV PRN (10:00)
[2019-06-13] MEDS ORDERED: Midazolam 2mg/2ml Inj IVP PRN (10:00)
--- NOTE | 2019-06-13 10:10 | Nephrology Progress Note ---
Assessment/Plan Problem List: (1) Renal failure (ARF), acute on chronic Assessment: Cr rising (2) Cellulitis of upper extremity (3) A-fib (4) Pneumonia (5) UTI (urinary tract infection) (6) Anemia Assessment: worsened (7) Hypothyroidism Assessment - KIMO on CKD - Urinary tract infection. - Anemia- - Dehydration. - Cellulitis of Upper extremity - HTN Plan taper steroids as possible dialysis 06/10 next 06/12 Trach 06/13 DC Midodrine DC IV IV Calcium and PO Vit D ad needed Transfuse one unit PRBcs in ICU- intubated BP meds and Mind altering meds discontinued On midodrine check vanco levels - hold vanco doses previously: Per cardiology Anemia kumari- Avoid Nephrotoxics Per ID Allow CHANDA inhibitor to continue as long as renal function does not worsen. PICC line has been removed. CXR: Increased right pleural effusion and similar left pleural effusion. Increased interstitial and hazy opacities throughout the lungs. Subjective ROS Limited/Unobtainable: Yes Objective Objective Last 24 Hour Vital Signs Date Time Temp Pulse Resp B/P (MAP) Pulse Ox O2 Delivery O2 Flow Rate FiO2 06/13/19 09:10 75 20 40 06/13/19 09:00 77 16 116/50 (72) 100 06/13/19 08:00 Mechanical Ventilator 06/13/19 08:00 40 06/13/19 08:00 86 13 138/69 (92) 98 06/13/19 07:22 78 06/13/19 07:22 100 06/13/19 07:18 84 23 40 40 06/13/19 07:00 73 16 137/56 (83) 100 06/13/19 06:18 87 22 95 Mechanical Ventilator 45 06/13/19 06:00 64 16 121/66 (84) 97 06/13/19 05:00 83 14 144/63 (90) 99 06/13/19 04:45 82 21 40 06/13/19 04:00 40 06/13/19 04:00 Mechanical Ventilator 06/13/19 04:00 80 06/13/19 04:00 98.8 80 22 146/62 (90) 98 06/13/19 03:34 84 22 40 06/13/19 03:00 84 19 150/64 (92) 99 06/13/19 02:00 101 29 133/70 (91) 100 06/13/19 01:27 93 25 40 06/13/19 01:00 98.8 93 23 148/72 (97) 98 06/13/19 00:00 99 06/13/19 00:00 Mechanical Ventilator 06/13/19 00:00 40 06/13/19 00:00 99 15 137/74 (95) 99 06/12/19 23:25 101 25 40 06/12/19 23:00 103 15 142/67 (92) 99 06/12/19 22:00 105 20 138/77 (97) 97 06/12/19 21:09 96 27 40 06/12/19 21:00 123 32 109/52 (71) 96 06/12/19 20:00 40 06/12/19 20:00 115 06/12/19 20:00 98.6 115 34 119/77 (91) 98 06/12/19 20:00 Mechanical Ventilator 06/12/19 19:20 119/77 06/12/19 19:09 84 27 40 06/12/19 19:00 68 18 123/50 (74) 99 06/12/19 18:00 67 17 126/53 (77) 100 06/12/19 17:00 70 17 134/51 (78) 100 06/12/19 16:54 65 17 40 06/12/19 16:00 98.6 78 20 143/56 (85) 100 06/12/19 16:00 40 06/12/19 16:00 68 06/12/19 16:00 Mechanical Ventilator 06/12/19 15:00 63 20 110/45 (66) 100 06/12/19 14:19 69 18 40 06/12/19 14:00 66 20 137/61 (86) 100 06/12/19 13:00 105 20 171/78 (109) 100 06/12/19 12:37 75 17 40 06/12/19 12:00 93 06/12/19 12:00 Mechanical Ventilator 06/12/19 12:00 98.6 88 20 155/80 (105) 99 06/12/19 12:00 40 06/12/19 11:00 91 17 154/72 (99) 98 06/12/19 10:51 91 26 40 Intake and Output 06/12/19 06/13/19 19:00 07:00 Intake Total 505 ml 200 ml Output Total 595 ml 305 ml Balance -90 ml -105 ml IV Total 55 ml Tube Feeding 400 ml 200 ml Other 50 ml Output Urine Total 195 ml 105 ml Stool Total 400 ml 200 ml Laboratory Tests 06/13/19 03:55: White Blood Count 9.8, Red Blood Count 2.50L, Hemoglobin 7.6L, Hematocrit 22.4L , Mean Corpuscular Volume 90, Mean Corpuscular Hemoglobin 30.6, Mean Corpuscular Hemoglobin Concent 34.1, Red Cell Distribution Width 15.8H, Platelet Count 145L, Mean Platelet Volume 5.7L, Neutrophils (%) (Auto) , Lymphocytes (%) (Auto) , Monocytes (%) (Auto) , Eosinophils (%) (Auto) , Basophils (%) (Auto) , Sodium Level 146H, Potassium Level 3.2L, Chloride Level 109H, Carbon Dioxide Level 31, Anion Gap 6, Blood Urea Nitrogen 63H, Creatinine 3.6H, Estimat Glomerular Filtration Rate , Glucose Level 123H, Calcium Level 7.5L, Total Bilirubin 0.3, Aspartate Amino Transf (AST/SGOT) 48H, Alanine Aminotransferase (ALT/SGPT) 68, Alkaline Phosphatase 56, Total Protein 4.5L, Albumin 1.6L, Globulin 2.9, Albumin/Globulin Ratio 0.6L Height (Feet): 5 Height (Inches): 7.00 Weight (Pounds): 182 General Appearance: no apparent distress Neck: limited range of motion Cardiovascular: normal rate Respiratory/Chest: decreased breath sounds Abdomen: soft Objective no change Reinier Mera MD Jun 13, 2019 10:10
--- NOTE | 2019-06-13 11:42 | Infectious Diseases Prog Note ---
Assessment/Plan Assessment/Plan 84 yo male with PMHx of HTN who was [facility]. Swelling around PICC line Minimal to no erythema and no purulent drainage Not likely to be infected Blood Cx 05/18/19 - NGTD PICC Tip Cx 05/18/19 - NGTD PICC line removed 05/18/19 Leukocytosis, mild recurrent (on steroids)- resolved No fever OM - Let foot On Vancomycin at nursing End date early May PNA Acute respiratory failure s/p intubation 05/27 06/10 CXR: Bilateral upper lobe interstitial opacities and volume loss are unchanged. Diffuse more acute appearing parenchymal disease throughout the left mid and lower lung are unchanged. CXR - Some LLL Atelectasis vs PNA, Nodules CT 05/20/19 - Bilateral upper lobe infiltrates worse on the right. Consider pneumonia. Bilateral pleural effusions moderate in size Sp Cx Marily HTN PLAN - Continue Daptomycin for OM until 06/23/19 weekly CPK -06/10 SP Zosyn #15 - 05/28/19 SP Vancomycin per pharmacy - Stopped for increasing Cr - 05/27/19 SP Levofloxacin #5 - Monitor CBC and Temps -ETT/ICU care -aspiration precautions -wound care per hospital protocol Thank you for this consult. [facility] will continue to follow the patient with you during this hospitalization. Subjective Allergies: Coded Allergies: No Known Allergies (Unverified , 05/18/19) Subjective afebrile mildleukocytosis resolved off pressors remains intubated Objective Vital Signs Last 24 Hour Vital Signs Date Time Temp Pulse Resp B/P (MAP) Pulse Ox O2 Delivery O2 Flow Rate FiO2 06/13/19 11:17 60 16 40 06/13/19 11:00 72 22 130/53 (78) 99 06/13/19 10:00 60 16 147/74 (98) 99 06/13/19 09:10 75 20 40 06/13/19 09:00 77 16 116/50 (72) 100 06/13/19 08:00 Mechanical Ventilator 06/13/19 08:00 40 06/13/19 08:00 86 13 138/69 (92) 98 06/13/19 07:22 78 06/13/19 07:22 100 06/13/19 07:18 84 23 40 40 06/13/19 07:00 73 16 137/56 (83) 100 06/13/19 06:18 87 22 95 Mechanical Ventilator 45 06/13/19 06:00 64 16 121/66 (84) 97 06/13/19 05:00 83 14 144/63 (90) 99 06/13/19 04:45 82 21 40 06/13/19 04:00 40 06/13/19 04:00 Mechanical Ventilator 06/13/19 04:00 80 06/13/19 04:00 98.8 80 22 146/62 (90) 98 06/13/19 03:34 84 22 40 06/13/19 03:00 84 19 150/64 (92) 99 06/13/19 02:00 101 29 133/70 (91) 100 06/13/19 01:27 93 25 40 06/13/19 01:00 98.8 93 23 148/72 (97) 98 06/13/19 00:00 99 06/13/19 00:00 Mechanical Ventilator 06/13/19 00:00 40 06/13/19 00:00 99 15 137/74 (95) 99 06/12/19 23:25 101 25 40 06/12/19 23:00 103 15 142/67 (92) 99 06/12/19 22:00 105 20 138/77 (97) 97 06/12/19 21:09 96 27 40 06/12/19 21:00 123 32 109/52 (71) 96 06/12/19 20:00 40 06/12/19 20:00 115 06/12/19 20:00 98.6 115 34 119/77 (91) 98 06/12/19 20:00 Mechanical Ventilator 06/12/19 19:20 119/77 06/12/19 19:09 84 27 40 06/12/19 19:00 68 18 123/50 (74) 99 06/12/19 18:00 67 17 126/53 (77) 100 06/12/19 17:00 70 17 134/51 (78) 100 06/12/19 16:54 65 17 40 06/12/19 16:00 98.6 78 20 143/56 (85) 100 06/12/19 16:00 40 06/12/19 16:00 68 06/12/19 16:00 Mechanical Ventilator 06/12/19 15:00 63 20 110/45 (66) 100 06/12/19 14:19 69 18 40 06/12/19 14:00 66 20 137/61 (86) 100 06/12/19 13:00 105 20 171/78 (109) 100 06/12/19 12:37 75 17 40 06/12/19 12:00 93 06/12/19 12:00 Mechanical Ventilator 06/12/19 12:00 98.6 88 20 155/80 (105) 99 06/12/19 12:00 40 Height (Feet): 5 Height (Inches): 7.00 Weight (Pounds): 182 Objective General Appearance: no apparent distress, lethargic Cardiovascular: normal rate Respiratory/Chest: decreased breath sounds Abdomen: distended Laboratory Tests Test 06/13/19 03:55 White Blood Count 9.8 K/UL (4.8-10.8) Red Blood Count 2.50 M/UL (4.70-6.10) L Hemoglobin 7.6 G/DL (14.2-18.0) L Hematocrit 22.4 % (42.0-52.0) L Mean Corpuscular Volume 90 FL (80-99) Mean Corpuscular Hemoglobin 30.6 PG (27.0-31.0) Mean Corpuscular Hemoglobin Concent 34.1 G/DL (32.0-36.0) Red Cell Distribution Width 15.8 % (11.6-14.8) H Platelet Count 145 K/UL (150-450) L Mean Platelet Volume 5.7 FL (6.5-10.1) L Neutrophils (%) (Auto) % (45.0-75.0) Lymphocytes (%) (Auto) % (20.0-45.0) Monocytes (%) (Auto) % (1.0-10.0) Eosinophils (%) (Auto) % (0.0-3.0) Basophils (%) (Auto) % (0.0-2.0) Sodium Level 146 MMOL/L (136-145) H Potassium Level 3.2 MMOL/L (3.5-5.1) L Chloride Level 109 MMOL/L (98-107) H Carbon Dioxide Level 31 MMOL/L (21-32) Anion Gap 6 mmol/L (5-15) Blood Urea Nitrogen 63 mg/dL (7-18) H Creatinine 3.6 MG/DL (0.55-1.30) H Estimat Glomerular Filtration Rate mL/min (>60) Glucose Level 123 MG/DL (74-106) H Calcium Level 7.5 MG/DL (8.5-10.1) L Total Bilirubin 0.3 MG/DL (0.2-1.0) Aspartate Amino Transf (AST/SGOT) 48 U/L (15-37) H Alanine Aminotransferase (ALT/SGPT) 68 U/L (12-78) Alkaline Phosphatase 56 U/L (46-116) Total Protein 4.5 G/DL (6.4-8.2) L Albumin 1.6 G/DL (3.4-5.0) L Globulin 2.9 g/dL Albumin/Globulin Ratio 0.6 (1.0-2.7) L Current Medications Medications (Trade) Dose Ordered Sig/Phillip Route PRN Reason Start Time Stop Time Status Last Admin Dose Admin Acetaminophen (Tylenol) 500 mg Q4H PRN GT Mild Pain/Temp > 100.5 05/27/19 07:45 06/19/19 20:29 06/12/19 13:46 Acetaminophen (Tylenol) 650 mg Q4H PRN ORAL Mild Pain (Pain Scale 1-3) 06/13/19 10:00 UNV Al Hydroxide/Mg Hydroxide (Mylanta) 15 ml Q1H PRN ORAL gi upset 06/13/19 10:00 UNV Amiodarone HCl (Cordarone) 200 mg DAILY ORAL 06/07/19 16:15 07/07/19 16:14 06/13/19 09:18 Atropine Sulfate (Atropine) 0.5 mg Q5M PRN IV bpm less than 45 06/13/19 10:00 UNV Cefoxitin Sodium (Mefoxin) 1 gm ONCE ONCE IM 06/13/19 11:45 06/13/19 11:46 UNV Chlorhexidine Gluconate (Reina-Hex 2%) 1 applic DAILY@2000 TOPIC 05/27/19 20:00 06/26/19 19:59 06/12/19 21:50 Daptomycin 500 mg/ Sodium Chloride 55 ml @ 100 mls/hr Q48H IV 05/29/19 13:00 1/27/20 23:59 06/12/19 13:37 Diphenhydramine HCl (Benadryl) 25 mg Q15M PRN IVP Itching 06/13/19 10:00 UNV Fentanyl Citrate (Sublimaze 100 mcg/2 mL) 25 mcg Q10M PRN IV Moderate Pain (Pain Scale 4-6) 06/13/19 10:00 UNV Hydralazine HCl (Apresoline) 5 mg Q30M PRN IV SBP>160 OR___/DBP>90 OR___ 06/13/19 10:00 UNV Lansoprazole (Prevacid) 30 mg BID NG 06/06/19 18:00 07/06/19 17:59 06/13/19 09:18 Lorazepam (Ativan 2mg/ml 1ml) 1 mg Q4H PRN IV For Anxiety/Agitation 06/08/19 10:00 06/15/19 09:59 06/12/19 13:45 Methylprednisolone Sodium Succinate (Solu-MEDROL) 20 mg EVERY 12 HOURS IVP 06/13/19 09:00 07/04/19 20:59 06/13/19 09:18 Metoprolol Tartrate (Lopressor) 5 mg Q5MIN X 3 IVP 06/07/19 16:15 07/07/19 16:14 06/09/19 15:30 Midazolam HCl (Versed 2mg/2ml vial) 1 mg Q15M PRN IVP For Anxiety 06/13/19 10:00 UNV Norepinephrine Bitartrate 4 mg/ Dextrose 250 ml @ 0 mls/hr Q24H IV 05/29/19 19:20 06/28/19 19:19 05/30/19 22:45 Ondansetron HCl (Zofran) 4 mg Q1H PRN IVP Nausea & Vomiting 06/13/19 10:00 UNV Potassium Chloride 100 ml @ 100 mls/hr Q1H IV 06/13/19 09:15 06/13/19 13:14 06/13/19 10:58 Sodium Chloride 1,000 ml @ 10 mls/hr Q24H IVLG 06/13/19 09:53 06/13/19 11:52 UNV Vitamin D (Vitamin D) 5,000 intlu DAILY GT 06/07/19 13:00 07/07/19 12:59 06/13/19 09:18 Latha Lowe M.D. Jun 13, 2019 11:42
--- NOTE | 2019-06-13 12:21 | Pre-Procedure Note/Attestation ---
Pre-Procedure Note/Attestation Complete Prior to Procedure Planned Procedure: not applicable Procedure Narrative: egd/peg Indications for Procedure Pre-Operative Diagnosis: dysphagia Attestation I attest that I discussed the nature of the procedure; its benefits; risks and complications; and alternatives (and the risks and benefits of such alternatives ), prior to the procedure, with the patient (or the patient's legal development representative). I attest that, if there was a reasonable possibility of needing a blood transfusion, the patient (or the patient's legal development representative) was given the [facility] standardized written summary, pursuant to the [place] Blood Safety Act ([place] Health and Safety Code # 1645, as amended). I attest that I re-evaluated the patient just prior to the surgery and that there has been no change in the patient's H&P, except as documented below: Valentino Lino MD Jun 13, 2019 12:21
[2019-06-13] MEDS ORDERED: Etomidate 40mg/20ml Inj IV ONE (12:36)
[2019-06-13] MEDS ORDERED: NS 500ML IVPB ONE (12:40)
[2019-06-13] MEDS ORDERED: cefOXitin 1gm Inj IM SCH (12:45)
--- NOTE | 2019-06-13 12:47 | Endoscopy Procedure Note ---
Endoscopy Procedure Note General Indication for Procedure: dysphagia Procedures Performed: EGD, PEG Operative Findings/Diagnosis: same Specimen: none Pt Tolerated Procedure Well: Yes Estimated Blood Loss: none Anesthesia Anesthesiologist: faizan Anesthesia: MAC Inserted Devices Implant(s) used?: No GI Core Measures 50 yrs or older w/o bx or poly: Not Applicable 10yrs. F/U recommended: Not Applicable Valentino Lino MD Jun 13, 2019 12:47
--- NOTE | 2019-06-13 13:03 | Immediate Post-Op Evaluation ---
Immediate Post-Op Evalulation Immediate Post-Op Evalulation Procedure: EGD PEG Date of Evaluation: Jun 13, 2019 Time of Evaluation: 13:01 IV Fluids: 100 Blood Products: 0 Estimated Blood Loss: 0 Urinary Output: 0 Blood Pressure Systolic: 155 Blood Pressure Diastolic: 80 Pulse Rate: 80 Respiratory Rate: 13 O2 Sat by Pulse Oximetry: 98 Temperature (Fahrenheit): 97.8 Pain Score (1-10): 0 Nausea: No Vomiting: No Complications 0 Patient Status: no response - baseline, ventilated - baseline, none Hydration Status: adequate Drug: Cefoxitin Given Within 1 Hr of Incision: Yes Purvi Buenrostro MD Jun 13, 2019 13:03
--- NOTE | 2019-06-13 13:04 | 48 Hour Post Anesthesia Eval ---
Post Anesthesia Evaluation Procedure: EGD PEG Date of Evaluation: Jun 13, 2019 Airway: other - iontubated on mechanical ventilation=baseline Nausea: No Vomiting: No Hydration Status: adequate Cardiopulmonary Status: at baseline Mental Status/LOC: patient returned to baseline Post-Anesthesia Complications: 0 Follow-up care needed: N/A - further care as per primary team Purvi Buenrostro MD Jun 13, 2019 13:04
[2019-06-13] MEDS ORDERED: cefOXitin Sod 1 GM in D5W 55 ML IVPB ONE (13:15)
[2019-06-13] MEDS ORDERED: Lidocaine 1% 10mg/ml/Epi 0.005mg/ml 30ml vial INJ ONE (13:57)
--- NOTE | 2019-06-13 16:03 | Pulmonology Progress Note ---
Assessment/Plan Assessment/Plan IMPRESSION AND PLAN: 1. Pneumonia. Bilateral upper lobe. 2. Cellulitis. 3. History of COPD. 4. Hypertension. 5. Afib with RVR; rate controlled 6. Respiratory failure; on vent; unable to wean DISCUSSION: 1. Intubated; on AC mode; May need to be trached; notified Dr Logan 2. Agree with present management and care. 3. Continue medications and HHN with atrovent only 4. Check stool for C diff Arsen Whittaker M.D. Subjective Interval Events: None new Constitutional: Reports: no symptoms HEENT: Repors: no symptoms Respiratory: Reports: no symptoms Cardiovascular: Reports: no symptoms Gastrointestinal/Abdominal: Reports: no symptoms Genitourinary: Reports: no symptoms Allergies: Coded Allergies: No Known Allergies (Unverified , 05/18/19) Objective Last 24 Hour Vital Signs Date Time Temp Pulse Resp B/P (MAP) Pulse Ox O2 Delivery O2 Flow Rate FiO2 06/13/19 15:45 179/82 06/13/19 15:08 59 16 40 06/13/19 15:00 81 20 134/54 (80) 100 06/13/19 14:00 74 14 131/53 (79) 100 06/13/19 13:22 88 16 40 06/13/19 13:03 80 13 98 06/13/19 13:00 88 16 139/82 (101) 97 06/13/19 12:00 98.0 89 14 152/73 (99) 96 06/13/19 12:00 Mechanical Ventilator 06/13/19 12:00 40 06/13/19 11:50 89 06/13/19 11:17 60 16 40 06/13/19 11:00 72 22 130/53 (78) 99 06/13/19 10:00 60 16 147/74 (98) 99 06/13/19 09:10 75 20 40 06/13/19 09:00 77 16 116/50 (72) 100 06/13/19 08:00 Mechanical Ventilator 06/13/19 08:00 40 06/13/19 08:00 86 13 138/69 (92) 98 06/13/19 07:22 78 06/13/19 07:22 100 06/13/19 07:18 84 23 40 40 06/13/19 07:00 73 16 137/56 (83) 100 06/13/19 06:18 87 22 95 Mechanical Ventilator 45 06/13/19 06:00 64 16 121/66 (84) 97 06/13/19 05:00 83 14 144/63 (90) 99 06/13/19 04:45 82 21 40 06/13/19 04:00 40 06/13/19 04:00 Mechanical Ventilator 06/13/19 04:00 80 06/13/19 04:00 98.8 80 22 146/62 (90) 98 06/13/19 03:34 84 22 40 06/13/19 03:00 84 19 150/64 (92) 99 06/13/19 02:00 101 29 133/70 (91) 100 06/13/19 01:27 93 25 40 06/13/19 01:00 98.8 93 23 148/72 (97) 98 06/13/19 00:00 99 06/13/19 00:00 Mechanical Ventilator 06/13/19 00:00 40 06/13/19 00:00 99 15 137/74 (95) 99 06/12/19 23:25 101 25 40 06/12/19 23:00 103 15 142/67 (92) 99 06/12/19 22:00 105 20 138/77 (97) 97 06/12/19 21:09 96 27 40 06/12/19 21:00 123 32 109/52 (71) 96 06/12/19 20:00 40 06/12/19 20:00 115 06/12/19 20:00 98.6 115 34 119/77 (91) 98 06/12/19 20:00 Mechanical Ventilator 06/12/19 19:20 119/77 06/12/19 19:09 84 27 40 06/12/19 19:00 68 18 123/50 (74) 99 06/12/19 18:00 67 17 126/53 (77) 100 06/12/19 17:00 70 17 134/51 (78) 100 06/12/19 16:54 65 17 40 Intake and Output 06/12/19 06/13/19 19:00 07:00 Intake Total 1505 ml 200 ml Output Total 595 ml 305 ml Balance 910 ml -105 ml IV Total 55 ml Tube Feeding 400 ml 200 ml Hemodialysis 1000 ml Other 50 ml Output Urine Total 195 ml 105 ml Stool Total 400 ml 200 ml General Appearance: no acute distress HEENT: normocephalic Respiratory/Chest: chest wall non-tender, lungs clear Cardiovascular: normal peripheral pulses Abdomen: normal bowel sounds Extremities: no cyanosis Laboratory Tests 06/13/19 03:55: White Blood Count 9.8, Red Blood Count 2.50L, Hemoglobin 7.6L, Hematocrit 22.4L , Mean Corpuscular Volume 90, Mean Corpuscular Hemoglobin 30.6, Mean Corpuscular Hemoglobin Concent 34.1, Red Cell Distribution Width 15.8H, Platelet Count 145L, Mean Platelet Volume 5.7L, Neutrophils (%) (Auto) , Lymphocytes (%) (Auto) , Monocytes (%) (Auto) , Eosinophils (%) (Auto) , Basophils (%) (Auto) , Sodium Level 146H, Potassium Level 3.2L, Chloride Level 109H, Carbon Dioxide Level 31, Anion Gap 6, Blood Urea Nitrogen 63H, Creatinine 3.6H, Estimat Glomerular Filtration Rate , Glucose Level 123H, Calcium Level 7.5L, Total Bilirubin 0.3, Aspartate Amino Transf (AST/SGOT) 48H, Alanine Aminotransferase (ALT/SGPT) 68, Alkaline Phosphatase 56, Total Protein 4.5L, Albumin 1.6L, Globulin 2.9, Albumin/Globulin Ratio 0.6L Current Medications Medications (Trade) Dose Ordered Sig/Phillip Route PRN Reason Start Time Stop Time Status Last Admin Dose Admin Acetaminophen (Tylenol) 500 mg Q4H PRN GT Mild Pain/Temp > 100.5 05/27/19 07:45 06/19/19 20:29 06/12/19 13:46 Acetaminophen (Tylenol) 650 mg Q4H PRN ORAL Mild Pain (Pain Scale 1-3) 06/13/19 10:00 06/13/19 18:00 Al Hydroxide/Mg Hydroxide (Mylanta) 15 ml Q1H PRN ORAL gi upset 06/13/19 10:00 06/13/19 18:00 Amiodarone HCl (Cordarone) 200 mg DAILY ORAL 06/07/19 16:15 07/07/19 16:14 06/13/19 09:18 Atropine Sulfate (Atropine) 0.5 mg Q5M PRN IV bpm less than 45 06/13/19 10:00 06/13/19 18:00 Chlorhexidine Gluconate (Reina-Hex 2%) 1 applic DAILY@2000 TOPIC 05/27/19 20:00 06/26/19 19:59 06/12/19 21:50 Daptomycin 500 mg/ Sodium Chloride 55 ml @ 100 mls/hr Q48H IV 05/29/19 13:00 06/23/19 23:59 06/12/19 13:37 Diphenhydramine HCl (Benadryl) 25 mg Q15M PRN IVP Itching 06/13/19 10:00 06/13/19 18:00 Fentanyl Citrate (Sublimaze 100 mcg/2 mL) 25 mcg Q10M PRN IV Moderate Pain (Pain Scale 4-6) 06/13/19 10:00 06/13/19 18:00 Hydralazine HCl (Apresoline) 5 mg Q30M PRN IV SBP>160 OR___/DBP>90 OR___ 06/13/19 10:00 06/13/19 18:00 06/13/19 15:45 Lansoprazole (Prevacid) 30 mg BID NG 06/06/19 18:00 07/06/19 17:59 06/13/19 09:18 Lorazepam (Ativan 2mg/ml 1ml) 1 mg Q4H PRN IV For Anxiety/Agitation 06/08/19 10:00 06/15/19 09:59 06/12/19 13:45 Methylprednisolone Sodium Succinate (Solu-MEDROL) 20 mg EVERY 12 HOURS IVP 06/13/19 09:00 07/04/19 20:59 06/13/19 09:18 Metoprolol Tartrate (Lopressor) 5 mg Q5MIN X 3 IVP 06/07/19 16:15 07/07/19 16:14 06/09/19 15:30 Midazolam HCl (Versed 2mg/2ml vial) 1 mg Q15M PRN IVP For Anxiety 06/13/19 10:00 06/13/19 18:00 Norepinephrine Bitartrate 4 mg/ Dextrose 250 ml @ 0 mls/hr Q24H IV 1/2/20 19:20 06/28/19 19:19 05/30/19 22:45 Ondansetron HCl (Zofran) 4 mg Q1H PRN IVP Nausea & Vomiting 06/13/19 10:00 06/13/19 18:00 Sodium Chloride 1,000 ml @ 10 mls/hr Q24H IVLG 06/13/19 09:53 06/13/19 18:00 Vitamin D (Vitamin D) 5,000 intlu DAILY GT 06/07/19 13:00 07/07/19 12:59 06/13/19 09:18 Arsen Whittaker MD Jun 13, 2019 16:03
--- NOTE | 2019-06-13 17:25 | Surgery Progress Note ---
Surgery Progress Note Subjective Additional Comments Had PEG placed today Trach scheduled for Sunday Objective Last 24 Hour Vital Signs Date Time Temp Pulse Resp B/P (MAP) Pulse Ox O2 Delivery O2 Flow Rate FiO2 06/13/19 17:00 124 33 172/120 (137) 96 06/13/19 16:00 40 06/13/19 16:00 Mechanical Ventilator 06/13/19 16:00 99.0 96 20 167/83 (111) 98 06/13/19 15:45 179/82 06/13/19 15:40 87 06/13/19 15:08 59 16 40 06/13/19 15:00 81 20 134/54 (80) 100 06/13/19 14:00 74 14 131/53 (79) 100 06/13/19 13:22 88 16 40 06/13/19 13:03 80 13 98 06/13/19 13:00 88 16 139/82 (101) 97 06/13/19 12:00 98.0 89 14 152/73 (99) 96 06/13/19 12:00 Mechanical Ventilator 06/13/19 12:00 40 06/13/19 11:50 89 06/13/19 11:17 60 16 40 06/13/19 11:00 72 22 130/53 (78) 99 06/13/19 10:00 60 16 147/74 (98) 99 06/13/19 09:10 75 20 40 06/13/19 09:00 77 16 116/50 (72) 100 06/13/19 08:00 Mechanical Ventilator 06/13/19 08:00 40 06/13/19 08:00 86 13 138/69 (92) 98 06/13/19 07:22 78 06/13/19 07:22 100 06/13/19 07:18 84 23 40 40 06/13/19 07:00 73 16 137/56 (83) 100 06/13/19 06:18 87 22 95 Mechanical Ventilator 45 06/13/19 06:00 64 16 121/66 (84) 97 06/13/19 05:00 83 14 144/63 (90) 99 06/13/19 04:45 82 21 40 06/13/19 04:00 40 06/13/19 04:00 Mechanical Ventilator 06/13/19 04:00 80 06/13/19 04:00 98.8 80 22 146/62 (90) 98 06/13/19 03:34 84 22 40 06/13/19 03:00 84 19 150/64 (92) 99 06/13/19 02:00 101 29 133/70 (91) 100 06/13/19 01:27 93 25 40 06/13/19 01:00 98.8 93 23 148/72 (97) 98 06/13/19 00:00 99 06/13/19 00:00 Mechanical Ventilator 06/13/19 00:00 40 06/13/19 00:00 99 15 137/74 (95) 99 06/12/19 23:25 101 25 40 06/12/19 23:00 103 15 142/67 (92) 99 06/12/19 22:00 105 20 138/77 (97) 97 06/12/19 21:09 96 27 40 06/12/19 21:00 123 32 109/52 (71) 96 06/12/19 20:00 40 06/12/19 20:00 115 06/12/19 20:00 98.6 115 34 119/77 (91) 98 06/12/19 20:00 Mechanical Ventilator 06/12/19 19:20 119/77 06/12/19 19:09 84 27 40 06/12/19 19:00 68 18 123/50 (74) 99 06/12/19 18:00 67 17 126/53 (77) 100 I&O Intake and Output 06/12/19 06/13/19 19:00 07:00 Intake Total 1505 ml 200 ml Output Total 595 ml 305 ml Balance 910 ml -105 ml IV Total 55 ml Tube Feeding 400 ml 200 ml Hemodialysis 1000 ml Other 50 ml Output Urine Total 195 ml 105 ml Stool Total 400 ml 200 ml Dressing: other Wound: other Drains: other Cardiovascular: RSR Respiratory: decreased breath sounds Abdomen: soft, present bowel sounds Extremities: no cyanosis, other Laboratory Tests Test 06/13/19 03:55 White Blood Count 9.8 K/UL (4.8-10.8) Red Blood Count 2.50 M/UL (4.70-6.10) L Hemoglobin 7.6 G/DL (14.2-18.0) L Hematocrit 22.4 % (42.0-52.0) L Mean Corpuscular Volume 90 FL (80-99) Mean Corpuscular Hemoglobin 30.6 PG (27.0-31.0) Mean Corpuscular Hemoglobin Concent 34.1 G/DL (32.0-36.0) Red Cell Distribution Width 15.8 % (11.6-14.8) H Platelet Count 145 K/UL (150-450) L Mean Platelet Volume 5.7 FL (6.5-10.1) L Neutrophils (%) (Auto) % (45.0-75.0) Lymphocytes (%) (Auto) % (20.0-45.0) Monocytes (%) (Auto) % (1.0-10.0) Eosinophils (%) (Auto) % (0.0-3.0) Basophils (%) (Auto) % (0.0-2.0) Sodium Level 146 MMOL/L (136-145) H Potassium Level 3.2 MMOL/L (3.5-5.1) L Chloride Level 109 MMOL/L (98-107) H Carbon Dioxide Level 31 MMOL/L (21-32) Anion Gap 6 mmol/L (5-15) Blood Urea Nitrogen 63 mg/dL (7-18) H Creatinine 3.6 MG/DL (0.55-1.30) H Estimat Glomerular Filtration Rate mL/min (>60) Glucose Level 123 MG/DL (74-106) H Calcium Level 7.5 MG/DL (8.5-10.1) L Total Bilirubin 0.3 MG/DL (0.2-1.0) Aspartate Amino Transf (AST/SGOT) 48 U/L (15-37) H Alanine Aminotransferase (ALT/SGPT) 68 U/L (12-78) Alkaline Phosphatase 56 U/L (46-116) Total Protein 4.5 G/DL (6.4-8.2) L Albumin 1.6 G/DL (3.4-5.0) L Globulin 2.9 g/dL Albumin/Globulin Ratio 0.6 (1.0-2.7) L Plan Problems: (1) Cellulitis of upper extremity Assessment & Plan: 84M with RUE cellulitis, edema, erythema. no drainage. has RUE picc line recommend removal of picc. removed at bedside by myself on 05/18. pressure held, hemostasis noted, dressings applied. cath tip sent for cultures DVT duplex studies with acute thrombus IV Abx as per ID UA pending Cx results keep RUE elevated on pillows okay for diet AM labs anticoagulation off load pressure for dti noted cellulitis and edema improved deteriorated intubated on vent support likely respiratory insufficiency labs ordered wean vent okay for tube feeds via ng - cont as tolerated wean vent am labs HD as per renal now with right IJ Temp HD cath will follow with recs thank you (2) Cellulitis Assessment & Plan: Pt presented on admission with reabsorbing blister lateral R heel. Base of injury indurated with delineated margins(L)4cm x (W)3cm.Non- blanching erythema Sacrum ,R and L buttocks(L)8.5cm x (W)9cm, with a partial thickness pressure injury noted to L buttocks. Base of wound is moist and viable (L)2.3cm x (W)3cm. Area around wound tender when minimally palpated. Pt noted to be wearing splint L foot. Per pt he fractured foot a few weeks ago. Splint removed to assess skin integrity. L heel and malleoli are pink and blanchable.Cavilon Skin Barrier applied to L heel and malleoli and each area covered with Optifoam drsg. Splint reapplied. No other skin concerns noted. unchanged Partial Thickness pressure injury L buttocks resolved . Non-blanching erythema without induration noted to Sacrum,R and L buttocks. (L)8cm x (W)9cm. Scrotum is grossly enlarged and is erythematous and macerated. Penile shaft is grossly swollen .Pt noted to have a partially opened blood blister with 25% biofilm at base of shaft of penis.(L)4.5cm x (W)2.5cm. Bilat groin, medial /posterior aspects of both upper thighs are erythematous and denuded. R lower ext edematous. R heel blister reabsorbed. Non--blanching erythema without induration noted to R heel. Splint removed from L foot. Optifoam drsgs removed from malleoli and heel. Pt noted to have developed several DTPI's despite having Optifoam drsgs. DTPI noted to L achilles . Base of wound is purple and fluctuant (L)0.6cm x (W) 2.7cm.DTPI noted to medial L malleolus(L)0.2cm x (W)0.3cm.Base of wound is purple with marginal erythema. DTPI noted to dorsal L foot. Base of wound is purple with marginal erythema along borders (L)0.9cm x (W)0.5cm.L heel is boggy with non-blanching erythema. Cavilon Skin Barrier applied to affected areas on L foot . Dorsal L foot ,Achilles .R and L malleoli and L heel each covered with Optifoam drsg. Non-blanching erythema without induration noted to lateral L tibia. At plantar aspect of L hallux small dry eschar noted. No erythema or fluctuance periwound. (L)0.5cm x (W)0.4cm. IN addition to Optifoam drsgs placed over each bony prominence of L foot ABD pads placed over dorsal and plantar L foot , Abd pads aligned along L tibia. Splint realigned to L foot Wrapped loosely with Kerlix then wrapped loosely with [place] wrap. L foot floated off mattress with pillow. Tx.Plan: Apply Cavilon to Dorsal L foot. L achilles .Medial/Lateral Malleoli L Foot and L heel. Cover each site with Optifoam drsg. Change every 7 days and prn. Apply Cavilon Plantar L foot. Cover with Optifoam drsg. Change every 7 days and prn. Apply Moisture Barrier Paste to sacrum. Cover with Optifoam drsg. Changee very 7 days and prn. Apply Cavilon Skin Barrier to Both heels. Cover each heel with Optifoam drsg. Change every 7 days and prn. Cleanse wound Shaft of penis with saline. Apply Moisture Barrier Paste Daily and prn. Apply Moisture Barrier Paste to Bilat groin, Scrotum, Medial/Posterior aspects of both upper thighs with each perineal care. Reposition at least every 2hours or as tolerated. Off-load heels with pillows. APM/LA L Mattress overlay. (3) SOB (shortness of breath) Assessment & Plan: Unfortunately patient has been in the intensive care unit on ventilatory support unable to be weaned from vent. Will likely require prolonged ventilatory support. Respiratory insufficiency not improving. Patient is full code as per identifiable documentation in patient's chart and medical record. No family or next kin available. Given patient's wishes current condition and course of a care tracheostomy is indicated recommended. Tracheostomy would be medically necessary as a next step in patient's care plan. We will proceed with tracheostomy tomorrow discussed with patient's medical multidisciplinary team Bennett Logan Jun 13, 2019 17:25
[2019-06-13] MEDS: Acetaminophen 650mg/20.3ml GT PRN (18:14)
[2019-06-13] MEDS: Dyna-Hex 2% Top Sol 2oz TOPIC SCH (19:43)
--- NOTE | 2019-06-13 20:40 | General Progress Note ---
Assessment/Plan Problem List: (1) SOB (shortness of breath) ICD Codes: R06.02 - Shortness of breath SNOMED: 146636453 (2) Cellulitis ICD Codes: L03.90 - Cellulitis, unspecified SNOMED: 035474136 (3) Cellulitis of upper extremity ICD Codes: L03.119 - Cellulitis of unspecified part of limb SNOMED: 848589210 Qualifiers: Qualified Codes: L03.113 - Cellulitis of right upper limb (4) Renal insufficiency ICD Codes: N28.9 - Disorder of kidney and ureter, unspecified SNOMED: 956093074, 584518463 (5) Renal failure (ARF), acute on chronic ICD Codes: N17.9 - Acute kidney failure, unspecified; N18.9 - Chronic kidney disease, unspecified SNOMED: 638117039 (6) Anemia ICD Codes: D64.9 - Anemia, unspecified SNOMED: 955499420 (7) Hypothyroidism ICD Codes: E03.9 - Hypothyroidism, unspecified SNOMED: 11840837 (8) UTI (urinary tract infection) ICD Codes: N39.0 - Urinary tract infection, site not specified SNOMED: 83241532 Status: progressing, unchanged, deteriorating Assessment/Plan: elevated htn dr foss is contacted for trach failure to wean anemia,check h/h check lytes trach per pulmonary chf poor prognosis pna sepsis wo lwound and le fracture Subjective ROS Limited/Unobtainable: Yes Allergies: Coded Allergies: No Known Allergies (Unverified , 05/18/19) Objective Last 24 Hour Vital Signs Date Time Temp Pulse Resp B/P (MAP) Pulse Ox O2 Delivery O2 Flow Rate FiO2 06/13/19 19:20 117/56 06/13/19 19:13 105 22 40 06/13/19 19:00 106 27 152/88 (109) 98 06/13/19 18:55 158/84 06/13/19 18:00 123 35 159/88 (111) 95 06/13/19 17:20 123 36 40 06/13/19 17:00 124 33 172/120 (137) 96 06/13/19 16:00 40 06/13/19 16:00 Mechanical Ventilator 06/13/19 16:00 99.0 96 20 167/83 (111) 98 06/13/19 15:45 179/82 06/13/19 15:40 87 06/13/19 15:08 59 16 40 06/13/19 15:00 81 20 134/54 (80) 100 06/13/19 14:00 74 14 131/53 (79) 100 06/13/19 13:22 88 16 40 06/13/19 13:03 80 13 98 06/13/19 13:00 88 16 139/82 (101) 97 06/13/19 12:00 98.0 89 14 152/73 (99) 96 06/13/19 12:00 Mechanical Ventilator 06/13/19 12:00 40 06/13/19 11:50 89 06/13/19 11:17 60 16 40 06/13/19 11:00 72 22 130/53 (78) 99 06/13/19 10:00 60 16 147/74 (98) 99 06/13/19 09:10 75 20 40 06/13/19 09:00 77 16 116/50 (72) 100 06/13/19 08:00 Mechanical Ventilator 06/13/19 08:00 40 06/13/19 08:00 86 13 138/69 (92) 98 06/13/19 07:22 78 06/13/19 07:22 100 06/13/19 07:18 84 23 40 40 06/13/19 07:00 73 16 137/56 (83) 100 06/13/19 06:18 87 22 95 Mechanical Ventilator 45 06/13/19 06:00 64 16 121/66 (84) 97 06/13/19 05:00 83 14 144/63 (90) 99 06/13/19 04:45 82 21 40 06/13/19 04:00 40 06/13/19 04:00 Mechanical Ventilator 06/13/19 04:00 80 06/13/19 04:00 98.8 80 22 146/62 (90) 98 06/13/19 03:34 84 22 40 06/13/19 03:00 84 19 150/64 (92) 99 06/13/19 02:00 101 29 133/70 (91) 100 06/13/19 01:27 93 25 40 06/13/19 01:00 98.8 93 23 148/72 (97) 98 06/13/19 00:00 99 06/13/19 00:00 Mechanical Ventilator 06/13/19 00:00 40 06/13/19 00:00 99 15 137/74 (95) 99 06/12/19 23:25 101 25 40 06/12/19 23:00 103 15 142/67 (92) 99 06/12/19 22:00 105 20 138/77 (97) 97 06/12/19 21:09 96 27 40 06/12/19 21:00 123 32 109/52 (71) 96 Intake and Output 06/12/19 06/13/19 19:00 07:00 Intake Total 1505 ml 200 ml Output Total 595 ml 305 ml Balance 910 ml -105 ml IV Total 55 ml Tube Feeding 400 ml 200 ml Hemodialysis 1000 ml Other 50 ml Output Urine Total 195 ml 105 ml Stool Total 400 ml 200 ml Laboratory Tests 06/13/19 03:55: White Blood Count 9.8, Red Blood Count 2.50L, Hemoglobin 7.6L, Hematocrit 22.4L , Mean Corpuscular Volume 90, Mean Corpuscular Hemoglobin 30.6, Mean Corpuscular Hemoglobin Concent 34.1, Red Cell Distribution Width 15.8H, Platelet Count 145L, Mean Platelet Volume 5.7L, Neutrophils (%) (Auto) , Lymphocytes (%) (Auto) , Monocytes (%) (Auto) , Eosinophils (%) (Auto) , Basophils (%) (Auto) , Sodium Level 146H, Potassium Level 3.2L, Chloride Level 109H, Carbon Dioxide Level 31, Anion Gap 6, Blood Urea Nitrogen 63H, Creatinine 3.6H, Estimat Glomerular Filtration Rate , Glucose Level 123H, Calcium Level 7.5L, Total Bilirubin 0.3, Aspartate Amino Transf (AST/SGOT) 48H, Alanine Aminotransferase (ALT/SGPT) 68, Alkaline Phosphatase 56, Total Protein 4.5L, Albumin 1.6L, Globulin 2.9, Albumin/Globulin Ratio 0.6L Height (Feet): 5 Height (Inches): 7.00 Weight (Pounds): 182 Cardiovascular: regular rhythm Respiratory/Chest: lungs clear Abdomen: soft Joslyn iWggins MD Jun 13, 2019 20:40
[2019-06-14] VITALS (25 sets, daily range): BP systolic 92–174; BP diastolic 44–103
[2019-06-14 05:42] LABS: HEMATOCRIT 22.7 % (42.0-52.0); HEMOGLOBIN 7.8 G/DL (14.2-18.0); MEAN CORPUSCULAR VOLUME 89 FL (80-99); PLATELET COUNT 121 K/UL (150-450); RED BLOOD COUNT 2.56 M/UL (4.70-6.10); RED CELL DISTRIBUTION WIDTH 15.4 % (11.6-14.8); WHITE BLOOD COUNT 9.1 K/UL (4.8-10.8)
[2019-06-14 06:04] LABS: ALANINE AMINOTRANSFERASE 55 U/L (12-78); ALBUMIN 1.7 G/DL (3.4-5.0); ALBUMIN/GLOBULIN RATIO 0.5 (1.0-2.7); ALKALINE PHOSPHATASE 60 U/L (46-116); ANION GAP 8 mmol/L (5-15); ASPARTATE AMINO TRANSFERASE 41 U/L (15-37); BILIRUBIN,TOTAL 0.4 MG/DL (0.2-1.0); BLOOD UREA NITROGEN 73 mg/dL (7-18); CALCIUM 7.5 MG/DL (8.5-10.1); CARBON DIOXIDE 28 MMOL/L (21-32); CHLORIDE 108 MMOL/L (98-107); CREATININE 4.1 MG/DL (0.55-1.30); PHOSPHORUS 3.9 MG/DL (2.5-4.9); SODIUM 144 MMOL/L (136-145)
--- NOTE | 2019-06-14 06:28 | Pulmonology Progress Note ---
Assessment/Plan Assessment/Plan IMPRESSION AND PLAN: 1. Pneumonia. Bilateral upper lobe. 2. Cellulitis. 3. History of COPD. 4. Hypertension. 5. Afib with RVR; rate controlled 6. Respiratory failure; on vent; unable to wean DISCUSSION: 1. Intubated; on AC mode; Needs trach; notified Dr Logan 2. Agree with present management and care. 3. Continue medications and HHN with atrovent only Arsen Whittaker M.D. Subjective Interval Events: None new; trach scheduled for [place] Constitutional: Reports: no symptoms HEENT: Repors: no symptoms Respiratory: Reports: no symptoms Cardiovascular: Reports: no symptoms Gastrointestinal/Abdominal: Reports: no symptoms Allergies: Coded Allergies: No Known Allergies (Unverified , 05/18/19) Objective Last 24 Hour Vital Signs Date Time Temp Pulse Resp B/P (MAP) Pulse Ox O2 Delivery O2 Flow Rate FiO2 06/14/19 06:00 75 0 127/84 (98) 99 06/14/19 05:34 84 34 40 06/14/19 05:00 91 10 137/76 (96) 99 06/14/19 04:00 Mechanical Ventilator 06/14/19 04:00 97.9 90 28 147/81 (103) 99 06/14/19 04:00 40 06/14/19 03:07 83 28 40 06/14/19 03:04 84 06/14/19 03:00 86 24 144/57 (86) 100 06/14/19 02:30 66 16 92/44 (60) 100 06/14/19 02:00 95 30 156/70 (98) 99 06/14/19 01:12 95 30 40 06/14/19 01:00 97.8 92 14 156/72 (100) 98 06/14/19 00:00 Mechanical Ventilator 06/14/19 00:00 87 06/14/19 00:00 40 06/14/19 00:00 84 25 157/63 (94) 100 06/13/19 23:15 57 16 40 06/13/19 23:00 59 16 117/58 (77) 100 06/13/19 22:02 55 16 95/60 (72) 100 06/13/19 22:00 56 16 100 06/13/19 21:10 61 16 40 06/13/19 21:00 67 22 113/54 (73) 100 06/13/19 20:00 98.8 97 18 110/50 (70) 100 06/13/19 20:00 40 06/13/19 20:00 Mechanical Ventilator 06/13/19 19:56 98 06/13/19 19:20 117/56 06/13/19 19:13 105 22 40 06/13/19 19:00 106 27 152/88 (109) 98 06/13/19 18:55 158/84 06/13/19 18:00 123 35 159/88 (111) 95 06/13/19 17:20 123 36 40 06/13/19 17:00 124 33 172/120 (137) 96 06/13/19 16:00 40 06/13/19 16:00 Mechanical Ventilator 06/13/19 16:00 99.0 96 20 167/83 (111) 98 06/13/19 15:45 179/82 06/13/19 15:40 87 06/13/19 15:08 59 16 40 06/13/19 15:00 81 20 134/54 (80) 100 06/13/19 14:00 74 14 131/53 (79) 100 06/13/19 13:22 88 16 40 06/13/19 13:03 80 13 98 06/13/19 13:00 88 16 139/82 (101) 97 06/13/19 12:00 98.0 89 14 152/73 (99) 96 06/13/19 12:00 Mechanical Ventilator 06/13/19 12:00 40 06/13/19 11:50 89 06/13/19 11:17 60 16 40 06/13/19 11:00 72 22 130/53 (78) 99 06/13/19 10:00 60 16 147/74 (98) 99 06/13/19 09:10 75 20 40 06/13/19 09:00 77 16 116/50 (72) 100 06/13/19 08:00 Mechanical Ventilator 06/13/19 08:00 40 06/13/19 08:00 86 13 138/69 (92) 98 06/13/19 07:22 78 06/13/19 07:22 100 06/13/19 07:18 84 23 40 40 06/13/19 07:00 73 16 137/56 (83) 100 Intake and Output 06/13/19 06/14/19 19:00 07:00 Intake Total 120 ml 230 ml Output Total 710 ml 90 ml Balance -590 ml 140 ml Free Water 120 ml Tube Feeding 0 ml 230 ml Output Urine Total 310 ml 90 ml Stool Total 400 ml General Appearance: no acute distress HEENT: normocephalic Respiratory/Chest: chest wall non-tender, decreased breath sounds Cardiovascular: normal peripheral pulses, normal rate Abdomen: normal bowel sounds Laboratory Tests 06/14/19 04:52: White Blood Count 9.1, Red Blood Count 2.56L, Hemoglobin 7.8L, Hematocrit 22.7L , Mean Corpuscular Volume 89, Mean Corpuscular Hemoglobin 30.6, Mean Corpuscular Hemoglobin Concent 34.5, Red Cell Distribution Width 15.4H, Platelet Count 121L, Mean Platelet Volume 5.6L, Neutrophils (%) (Auto) , Lymphocytes (%) (Auto) , Monocytes (%) (Auto) , Eosinophils (%) (Auto) , Basophils (%) (Auto) , Neutrophils % (Manual) [Pending], Lymphocytes % (Manual) [Pending], Platelet Estimate [Pending], Platelet Morphology [Pending], Sodium Level 144, Potassium Level 4.0, Chloride Level 108H, Carbon Dioxide Level 28, Anion Gap 8, Blood Urea Nitrogen 73H, Creatinine 4.1H, Estimat Glomerular Filtration Rate , Glucose Level 156H, Uric Acid 5.0, Calcium Level 7.5L, Phosphorus Level 3.9, Magnesium Level 2.1, Total Bilirubin 0.4, Aspartate Amino Transf (AST/SGOT) 41H, Alanine Aminotransferase (ALT/SGPT) 55, Alkaline Phosphatase 60, C-Reactive Protein, Quantitative 1.2H, Pro-B-Type Natriuretic Peptide 5652H, Total Protein 4.8L, Albumin 1.7L, Globulin 3.1, Albumin/Globulin Ratio 0.5L Current Medications Medications (Trade) Dose Ordered Sig/Phillip Route PRN Reason Start Time Stop Time Status Last Admin Dose Admin Acetaminophen (Tylenol) 500 mg Q4H PRN GT Mild Pain/Temp > 100.5 05/27/19 07:45 06/19/19 20:29 06/13/19 18:14 Amiodarone HCl (Cordarone) 200 mg DAILY ORAL 06/07/19 16:15 07/07/19 16:14 06/13/19 09:18 Chlorhexidine Gluconate (Reina-Hex 2%) 1 applic DAILY@2000 TOPIC 05/27/19 20:00 06/26/19 19:59 06/13/19 19:43 Clonidine HCl (Catapres Tab) 0.1 mg Q4H PRN GT For High Blood Pressure 06/13/19 18:45 07/13/19 18:44 06/13/19 18:55 Daptomycin 500 mg/ Sodium Chloride 55 ml @ 100 mls/hr Q48H IV 05/29/19 13:00 06/23/19 23:59 06/12/19 13:37 Lansoprazole (Prevacid) 30 mg BID NG 06/06/19 18:00 07/06/19 17:59 06/13/19 18:14 Lorazepam (Ativan 2mg/ml 1ml) 1 mg Q4H PRN IV For Anxiety/Agitation 06/08/19 10:00 06/15/19 09:59 06/12/19 13:45 Methylprednisolone Sodium Succinate (Solu-MEDROL) 20 mg EVERY 12 HOURS IVP 06/13/19 09:00 07/04/19 20:59 06/13/19 20:31 Metoprolol Tartrate (Lopressor) 5 mg Q5MIN X 3 IVP 06/07/19 16:15 07/07/19 16:14 06/09/19 15:30 Norepinephrine Bitartrate 4 mg/ Dextrose 250 ml @ 0 mls/hr Q24H IV 05/29/19 19:20 06/28/19 19:19 05/30/19 22:45 Vitamin D (Vitamin D) 5,000 intlu DAILY GT 06/07/19 13:00 07/07/19 12:59 06/13/19 09:18 Arsen Whittaker MD Jun 14, 2019 06:28
[2019-06-14] MEDS: Vitamin D 1000 IU Tab GT SCH (08:33)
[2019-06-14] MEDS: Solu-MEDROL 40mg Inj IVP SCH ×2 (08:34→20:48)
[2019-06-14] MEDS: Amiodarone 200mg tab ORAL SCH (08:35)
--- NOTE | 2019-06-14 10:39 | Nephrology Progress Note ---
Assessment/Plan Problem List: (1) Renal failure (ARF), acute on chronic Assessment: Cr rising (2) Cellulitis of upper extremity (3) A-fib (4) Pneumonia (5) UTI (urinary tract infection) (6) Anemia Assessment: worsened (7) Hypothyroidism Assessment - KIMO on CKD - Urinary tract infection. - Anemia- - Dehydration. - Cellulitis of Upper extremity - HTN Plan taper steroids as possible dialysis 06/10 next 06/12 and 06/14 Trach 06/16 ! DC Midodrine DC IV IV Calcium and PO Vit D ad needed Transfuse one unit PRBcs in ICU- intubated BP meds and Mind altering meds discontinued On midodrine check vanco levels - hold vanco doses previously: Per cardiology Anemia kumari- Avoid Nephrotoxics Per ID Allow CHANDA inhibitor to continue as long as renal function does not worsen. PICC line has been removed. CXR: Increased right pleural effusion and similar left pleural effusion. Increased interstitial and hazy opacities throughout the lungs. Subjective ROS Limited/Unobtainable: Yes Objective Objective Last 24 Hour Vital Signs Date Time Temp Pulse Resp B/P (MAP) Pulse Ox O2 Delivery O2 Flow Rate FiO2 06/14/19 09:24 58 16 40 06/14/19 09:00 91 17 168/103 (124) 99 06/14/19 08:34 174/89 06/14/19 08:00 Mechanical Ventilator 06/14/19 08:00 97.0 89 14 174/70 (104) 99 06/14/19 08:00 40 06/14/19 07:13 100 06/14/19 07:07 79 26 40 06/14/19 07:00 56 16 128/81 (97) 100 06/14/19 06:00 75 16 127/84 (98) 99 06/14/19 05:34 84 34 40 06/14/19 05:00 91 10 137/76 (96) 99 06/14/19 04:00 Mechanical Ventilator 06/14/19 04:00 97.9 90 28 147/81 (103) 99 06/14/19 04:00 40 06/14/19 03:07 83 28 40 06/14/19 03:04 84 06/14/19 03:00 86 24 144/57 (86) 100 06/14/19 02:30 66 16 92/44 (60) 100 06/14/19 02:00 95 30 156/70 (98) 99 06/14/19 01:12 95 30 40 06/14/19 01:00 97.8 92 14 156/72 (100) 98 06/14/19 00:00 Mechanical Ventilator 06/14/19 00:00 87 06/14/19 00:00 40 06/14/19 00:00 84 25 157/63 (94) 100 06/13/19 23:15 57 16 40 06/13/19 23:00 59 16 117/58 (77) 100 06/13/19 22:02 55 16 95/60 (72) 100 06/13/19 22:00 56 16 100 06/13/19 21:10 61 16 40 06/13/19 21:00 67 22 113/54 (73) 100 06/13/19 20:00 98.8 97 18 110/50 (70) 100 06/13/19 20:00 40 06/13/19 20:00 Mechanical Ventilator 06/13/19 19:56 98 06/13/19 19:20 117/56 06/13/19 19:13 105 22 40 06/13/19 19:00 106 27 152/88 (109) 98 06/13/19 18:55 158/84 06/13/19 18:00 123 35 159/88 (111) 95 06/13/19 17:20 123 36 40 06/13/19 17:00 124 33 172/120 (137) 96 06/13/19 16:00 40 06/13/19 16:00 Mechanical Ventilator 06/13/19 16:00 99.0 96 20 167/83 (111) 98 06/13/19 15:45 179/82 06/13/19 15:40 87 06/13/19 15:08 59 16 40 06/13/19 15:00 81 20 134/54 (80) 100 06/13/19 14:00 74 14 131/53 (79) 100 06/13/19 13:22 88 16 40 06/13/19 13:03 80 13 98 06/13/19 13:00 88 16 139/82 (101) 97 06/13/19 12:00 98.0 89 14 152/73 (99) 96 06/13/19 12:00 Mechanical Ventilator 06/13/19 12:00 40 06/13/19 11:50 89 06/13/19 11:17 60 16 40 06/13/19 11:00 72 22 130/53 (78) 99 Intake and Output 06/13/19 06/14/19 19:00 07:00 Intake Total 120 ml 260 ml Output Total 710 ml 95 ml Balance -590 ml 165 ml Free Water 120 ml Tube Feeding 0 ml 260 ml Output Urine Total 310 ml 95 ml Stool Total 400 ml Laboratory Tests 06/14/19 04:52: White Blood Count 9.1, Red Blood Count 2.56L, Hemoglobin 7.8L, Hematocrit 22.7L , Mean Corpuscular Volume 89, Mean Corpuscular Hemoglobin 30.6, Mean Corpuscular Hemoglobin Concent 34.5, Red Cell Distribution Width 15.4H, Platelet Count 121L, Mean Platelet Volume 5.6L, Neutrophils (%) (Auto) , Lymphocytes (%) (Auto) , Monocytes (%) (Auto) , Eosinophils (%) (Auto) , Basophils (%) (Auto) , Differential Total Cells Counted 100, Neutrophils % ( Manual) 95H, Lymphocytes % (Manual) 4L, Monocytes % (Manual) 1, Eosinophils % ( Manual) 0, Basophils % (Manual) 0, Band Neutrophils 0, Platelet Estimate DecreasedL, Platelet Morphology Normal, Anisocytosis 1+, Sodium Level 144, Potassium Level 4.0, Chloride Level 108H, Carbon Dioxide Level 28, Anion Gap 8, Blood Urea Nitrogen 73H, Creatinine 4.1H, Estimat Glomerular Filtration Rate , Glucose Level 156H, Uric Acid 5.0, Calcium Level 7.5L, Phosphorus Level 3.9, Magnesium Level 2.1, Total Bilirubin 0.4, Aspartate Amino Transf (AST/SGOT) 41H , Alanine Aminotransferase (ALT/SGPT) 55, Alkaline Phosphatase 60, C-Reactive Protein, Quantitative 1.2H, Pro-B-Type Natriuretic Peptide 5652H, Total Protein 4.8L, Albumin 1.7L, Globulin 3.1, Albumin/Globulin Ratio 0.5L Height (Feet): 5 Height (Inches): 7.00 Weight (Pounds): 179 General Appearance: no apparent distress Cardiovascular: arrhythmia Respiratory/Chest: decreased breath sounds Abdomen: distended Objective no change Reinier Mera MD Jun 14, 2019 10:39
--- NOTE | 2019-06-14 11:57 | Surgery Progress Note ---
Surgery Progress Note Subjective Additional Comments anemia transfuse trach sunday Objective Last 24 Hour Vital Signs Date Time Temp Pulse Resp B/P (MAP) Pulse Ox O2 Delivery O2 Flow Rate FiO2 06/14/19 11:26 53 16 40 06/14/19 11:17 89 06/14/19 11:00 75 12 128/68 (88) 100 06/14/19 10:00 57 1 131/63 (85) 100 06/14/19 09:24 58 16 40 06/14/19 09:00 91 17 168/103 (124) 99 06/14/19 08:34 174/89 06/14/19 08:00 Mechanical Ventilator 06/14/19 08:00 97.0 89 14 174/70 (104) 99 06/14/19 08:00 40 06/14/19 08:00 89 06/14/19 07:13 100 06/14/19 07:07 79 26 40 06/14/19 07:00 56 16 128/81 (97) 100 06/14/19 06:00 75 16 127/84 (98) 99 06/14/19 05:34 84 34 40 06/14/19 05:00 91 10 137/76 (96) 99 06/14/19 04:00 Mechanical Ventilator 06/14/19 04:00 97.9 90 28 147/81 (103) 99 06/14/19 04:00 40 06/14/19 03:07 83 28 40 06/14/19 03:04 84 06/14/19 03:00 86 24 144/57 (86) 100 06/14/19 02:30 66 16 92/44 (60) 100 06/14/19 02:00 95 30 156/70 (98) 99 06/14/19 01:12 95 30 40 06/14/19 01:00 97.8 92 14 156/72 (100) 98 06/14/19 00:00 Mechanical Ventilator 06/14/19 00:00 87 06/14/19 00:00 40 06/14/19 00:00 84 25 157/63 (94) 100 06/13/19 23:15 57 16 40 06/13/19 23:00 59 16 117/58 (77) 100 06/13/19 22:02 55 16 95/60 (72) 100 06/13/19 22:00 56 16 100 06/13/19 21:10 61 16 40 06/13/19 21:00 67 22 113/54 (73) 100 06/13/19 20:00 98.8 97 18 110/50 (70) 100 06/13/19 20:00 40 06/13/19 20:00 Mechanical Ventilator 06/13/19 19:56 98 06/13/19 19:20 117/56 06/13/19 19:13 105 22 40 06/13/19 19:00 106 27 152/88 (109) 98 06/13/19 18:55 158/84 06/13/19 18:00 123 35 159/88 (111) 95 06/13/19 17:20 123 36 40 06/13/19 17:00 124 33 172/120 (137) 96 06/13/19 16:00 40 06/13/19 16:00 Mechanical Ventilator 06/13/19 16:00 99.0 96 20 167/83 (111) 98 06/13/19 15:45 179/82 06/13/19 15:40 87 06/13/19 15:08 59 16 40 06/13/19 15:00 81 20 134/54 (80) 100 06/13/19 14:00 74 14 131/53 (79) 100 06/13/19 13:22 88 16 40 06/13/19 13:03 80 13 98 06/13/19 13:00 88 16 139/82 (101) 97 06/13/19 12:00 98.0 89 14 152/73 (99) 96 06/13/19 12:00 Mechanical Ventilator 06/13/19 12:00 40 I&O Intake and Output 06/13/19 06/14/19 19:00 07:00 Intake Total 120 ml 260 ml Output Total 710 ml 95 ml Balance -590 ml 165 ml Free Water 120 ml Tube Feeding 0 ml 260 ml Output Urine Total 310 ml 95 ml Stool Total 400 ml Dressing: other Wound: other Drains: other Cardiovascular: RSR Respiratory: decreased breath sounds Abdomen: soft, present bowel sounds Extremities: no cyanosis, other Laboratory Tests Test 06/14/19 04:52 White Blood Count 9.1 K/UL (4.8-10.8) Red Blood Count 2.56 M/UL (4.70-6.10) L Hemoglobin 7.8 G/DL (14.2-18.0) L Hematocrit 22.7 % (42.0-52.0) L Mean Corpuscular Volume 89 FL (80-99) Mean Corpuscular Hemoglobin 30.6 PG (27.0-31.0) Mean Corpuscular Hemoglobin Concent 34.5 G/DL (32.0-36.0) Red Cell Distribution Width 15.4 % (11.6-14.8) H Platelet Count 121 K/UL (150-450) L Mean Platelet Volume 5.6 FL (6.5-10.1) L Neutrophils (%) (Auto) % (45.0-75.0) Lymphocytes (%) (Auto) % (20.0-45.0) Monocytes (%) (Auto) % (1.0-10.0) Eosinophils (%) (Auto) % (0.0-3.0) Basophils (%) (Auto) % (0.0-2.0) Differential Total Cells Counted 100 Neutrophils % (Manual) 95 % (45-75) H Lymphocytes % (Manual) 4 % (20-45) L Monocytes % (Manual) 1 % (1-10) Eosinophils % (Manual) 0 % (0-3) Basophils % (Manual) 0 % (0-2) Band Neutrophils 0 % (0-8) Platelet Estimate Decreased L Platelet Morphology Normal Anisocytosis 1+ Sodium Level 144 MMOL/L (136-145) Potassium Level 4.0 MMOL/L (3.5-5.1) Chloride Level 108 MMOL/L (98-107) H Carbon Dioxide Level 28 MMOL/L (21-32) Anion Gap 8 mmol/L (5-15) Blood Urea Nitrogen 73 mg/dL (7-18) H Creatinine 4.1 MG/DL (0.55-1.30) H Estimat Glomerular Filtration Rate mL/min (>60) Glucose Level 156 MG/DL (74-106) H Uric Acid 5.0 MG/DL (2.6-7.2) Calcium Level 7.5 MG/DL (8.5-10.1) L Phosphorus Level 3.9 MG/DL (2.5-4.9) Magnesium Level 2.1 MG/DL (1.8-2.4) Total Bilirubin 0.4 MG/DL (0.2-1.0) Aspartate Amino Transf (AST/SGOT) 41 U/L (15-37) H Alanine Aminotransferase (ALT/SGPT) 55 U/L (12-78) Alkaline Phosphatase 60 U/L (46-116) C-Reactive Protein, Quantitative 1.2 mg/dL (0.00-0.90) H Pro-B-Type Natriuretic Peptide 5652 pg/mL (0-125) H Total Protein 4.8 G/DL (6.4-8.2) L Albumin 1.7 G/DL (3.4-5.0) L Globulin 3.1 g/dL Albumin/Globulin Ratio 0.5 (1.0-2.7) L Plan Problems: (1) Cellulitis of upper extremity Assessment & Plan: 84M with RUE cellulitis, edema, erythema. no drainage. has RUE picc line recommend removal of picc. removed at bedside by myself on 05/18. pressure held, hemostasis noted, dressings applied. cath tip sent for cultures DVT duplex studies with acute thrombus IV Abx as per ID UA pending Cx results keep RUE elevated on pillows okay for diet AM labs anticoagulation off load pressure for dti noted cellulitis and edema improved deteriorated intubated on vent support likely respiratory insufficiency labs ordered wean vent okay for tube feeds via ng - cont as tolerated wean vent am labs HD as per renal now with right IJ Temp HD cath will follow with recs thank you (2) Cellulitis Assessment & Plan: Pt presented on admission with reabsorbing blister lateral R heel. Base of injury indurated with delineated margins(L)4cm x (W)3cm.Non- blanching erythema Sacrum ,R and L buttocks(L)8.5cm x (W)9cm, with a partial thickness pressure injury noted to L buttocks. Base of wound is moist and viable (L)2.3cm x (W)3cm. Area around wound tender when minimally palpated. Pt noted to be wearing splint L foot. Per pt he fractured foot a few weeks ago. Splint removed to assess skin integrity. L heel and malleoli are pink and blanchable.Cavilon Skin Barrier applied to L heel and malleoli and each area covered with Optifoam drsg. Splint reapplied. No other skin concerns noted. unchanged Partial Thickness pressure injury L buttocks resolved . Non-blanching erythema without induration noted to Sacrum,R and L buttocks. (L)8cm x (W)9cm. Scrotum is grossly enlarged and is erythematous and macerated. Penile shaft is grossly swollen .Pt noted to have a partially opened blood blister with 25% biofilm at base of shaft of penis.(L)4.5cm x (W)2.5cm. Bilat groin, medial /posterior aspects of both upper thighs are erythematous and denuded. R lower ext edematous. R heel blister reabsorbed. Non--blanching erythema without induration noted to R heel. Splint removed from L foot. Optifoam drsgs removed from malleoli and heel. Pt noted to have developed several DTPI's despite having Optifoam drsgs. DTPI noted to L achilles . Base of wound is purple and fluctuant (L)0.6cm x (W) 2.7cm.DTPI noted to medial L malleolus(L)0.2cm x (W)0.3cm.Base of wound is purple with marginal erythema. DTPI noted to dorsal L foot. Base of wound is purple with marginal erythema along borders (L)0.9cm x (W)0.5cm.L heel is boggy with non-blanching erythema. Cavilon Skin Barrier applied to affected areas on L foot . Dorsal L foot ,Achilles .R and L malleoli and L heel each covered with Optifoam drsg. Non-blanching erythema without induration noted to lateral L tibia. At plantar aspect of L hallux small dry eschar noted. No erythema or fluctuance periwound. (L)0.5cm x (W)0.4cm. IN addition to Optifoam drsgs placed over each bony prominence of L foot ABD pads placed over dorsal and plantar L foot , Abd pads aligned along L tibia. Splint realigned to L foot Wrapped loosely with Kerlix then wrapped loosely with [place] wrap. L foot floated off mattress with pillow. Tx.Plan: Apply Cavilon to Dorsal L foot. L achilles .Medial/Lateral Malleoli L Foot and L heel. Cover each site with Optifoam drsg. Change every 7 days and prn. Apply Cavilon Plantar L foot. Cover with Optifoam drsg. Change every 7 days and prn. Apply Moisture Barrier Paste to sacrum. Cover with Optifoam drsg. Changee very 7 days and prn. Apply Cavilon Skin Barrier to Both heels. Cover each heel with Optifoam drsg. Change every 7 days and prn. Cleanse wound Shaft of penis with saline. Apply Moisture Barrier Paste Daily and prn. Apply Moisture Barrier Paste to Bilat groin, Scrotum, Medial/Posterior aspects of both upper thighs with each perineal care. Reposition at least every 2hours or as tolerated. Off-load heels with pillows. APM/LA L Mattress overlay. (3) SOB (shortness of breath) Assessment & Plan: Unfortunately patient has been in the intensive care unit on ventilatory support unable to be weaned from vent. Will likely require prolonged ventilatory support. Respiratory insufficiency not improving. Patient is full code as per identifiable documentation in patient's chart and medical record. No family or next kin available. Given patient's wishes current condition and course of a care tracheostomy is indicated recommended. Tracheostomy would be medically necessary as a next step in patient's care plan. We will proceed with tracheostomy tomorrow discussed with patient's medical multidisciplinary team Bennett Logan Jun 14, 2019 11:57
[2019-06-14] MEDS: DAPTOmycin 500 MG in NS 55 ML IV SCH (13:04)
--- NOTE | 2019-06-14 19:09 | Infectious Diseases Prog Note ---
Assessment/Plan Assessment/Plan 84 yo male with PMHx of HTN who was sent to the ED on 05/18/19 from his correction for possible picc line infection. Swelling around PICC line Minimal to no erythema and no purulent drainage Not likely to be infected Blood Cx 05/18/19 - NGTD PICC Tip Cx 05/18/19 - NGTD PICC line removed 05/18/19 Leukocytosis, mild recurrent (on steroids)- resolved No fever OM - Let foot On Vancomycin at nursing End date early May PNA Acute respiratory failure s/p intubation 05/27 06/10 CXR: Bilateral upper lobe interstitial opacities and volume loss are unchanged. Diffuse more acute appearing parenchymal disease throughout the left mid and lower lung are unchanged. CXR - Some LLL Atelectasis vs PNA, Nodules CT 05/20/19 - Bilateral upper lobe infiltrates worse on the right. Consider pneumonia. Bilateral pleural effusions moderate in size Sp Cx Marily HTN PLAN - Continue Daptomycin for OM until 06/23/19 weekly CPK -06/10 SP Zosyn #15 - 05/28/19 SP Vancomycin per pharmacy - Stopped for increasing Cr - 05/27/19 SP Levofloxacin #5 - Monitor CBC and Temps -ETT/ICU care -aspiration precautions -wound care per hospital protocol Thank you for this consult. [facility] will continue to follow the patient with you during this hospitalization. Subjective Allergies: Coded Allergies: No Known Allergies (Unverified , 05/18/19) Subjective Afebrile. FiO2 40% No leukocytosis tolerating HD Objective Vital Signs Last 24 Hour Vital Signs Date Time Temp Pulse Resp B/P (MAP) Pulse Ox O2 Delivery O2 Flow Rate FiO2 06/14/19 18:00 99 33 132/77 (95) 100 06/14/19 17:21 89 35 40 06/14/19 17:00 40 06/14/19 17:00 90 28 134/70 (91) 99 06/14/19 16:00 Mechanical Ventilator 06/14/19 16:00 86 06/14/19 16:00 97.2 75 0 104/49 (67) 100 06/14/19 15:29 105 34 40 06/14/19 15:00 90 17 142/66 (91) 100 06/14/19 14:00 84 25 147/75 (99) 99 06/14/19 13:29 77 16 40 06/14/19 13:00 57 16 100/49 (66) 99 06/14/19 12:00 40 06/14/19 12:00 Mechanical Ventilator 06/14/19 12:00 97.4 69 27 130/61 (84) 100 06/14/19 11:26 53 16 40 06/14/19 11:17 89 06/14/19 11:00 75 12 128/68 (88) 100 06/14/19 10:00 57 1 131/63 (85) 100 06/14/19 09:24 58 16 40 06/14/19 09:00 91 17 168/103 (124) 99 06/14/19 08:34 174/89 06/14/19 08:00 Mechanical Ventilator 06/14/19 08:00 97.0 89 14 174/70 (104) 99 06/14/19 08:00 40 06/14/19 08:00 89 06/14/19 07:13 100 06/14/19 07:07 79 26 40 06/14/19 07:00 56 16 128/81 (97) 100 06/14/19 06:00 75 16 127/84 (98) 99 06/14/19 05:34 84 34 40 06/14/19 05:00 91 10 137/76 (96) 99 06/14/19 04:00 Mechanical Ventilator 06/14/19 04:00 97.9 90 28 147/81 (103) 99 06/14/19 04:00 40 06/14/19 03:07 83 28 40 06/14/19 03:04 84 06/14/19 03:00 86 24 144/57 (86) 100 06/14/19 02:30 66 16 92/44 (60) 100 06/14/19 02:00 95 30 156/70 (98) 99 06/14/19 01:12 95 30 40 06/14/19 01:00 97.8 92 14 156/72 (100) 98 06/14/19 00:00 Mechanical Ventilator 06/14/19 00:00 87 06/14/19 00:00 40 06/14/19 00:00 84 25 157/63 (94) 100 06/13/19 23:15 57 16 40 06/13/19 23:00 59 16 117/58 (77) 100 06/13/19 22:02 55 16 95/60 (72) 100 06/13/19 22:00 56 16 100 06/13/19 21:10 61 16 40 06/13/19 21:00 67 22 113/54 (73) 100 06/13/19 20:00 98.8 97 18 110/50 (70) 100 06/13/19 20:00 40 06/13/19 20:00 Mechanical Ventilator 06/13/19 19:56 98 06/13/19 19:20 117/56 06/13/19 19:13 105 22 40 Height (Feet): 5 Height (Inches): 7.00 Weight (Pounds): 179 Objective Gen: NAD HEENT: anicteric sclera CV: normal rate Resp: RRR. unlabored. equal chest rise Abd: soft. no TTP Neuro: alert. Laboratory Tests Test 06/14/19 04:52 White Blood Count 9.1 K/UL (4.8-10.8) Red Blood Count 2.56 M/UL (4.70-6.10) L Hemoglobin 7.8 G/DL (14.2-18.0) L Hematocrit 22.7 % (42.0-52.0) L Mean Corpuscular Volume 89 FL (80-99) Mean Corpuscular Hemoglobin 30.6 PG (27.0-31.0) Mean Corpuscular Hemoglobin Concent 34.5 G/DL (32.0-36.0) Red Cell Distribution Width 15.4 % (11.6-14.8) H Platelet Count 121 K/UL (150-450) L Mean Platelet Volume 5.6 FL (6.5-10.1) L Neutrophils (%) (Auto) % (45.0-75.0) Lymphocytes (%) (Auto) % (20.0-45.0) Monocytes (%) (Auto) % (1.0-10.0) Eosinophils (%) (Auto) % (0.0-3.0) Basophils (%) (Auto) % (0.0-2.0) Differential Total Cells Counted 100 Neutrophils % (Manual) 95 % (45-75) H Lymphocytes % (Manual) 4 % (20-45) L Monocytes % (Manual) 1 % (1-10) Eosinophils % (Manual) 0 % (0-3) Basophils % (Manual) 0 % (0-2) Band Neutrophils 0 % (0-8) Platelet Estimate Decreased L Platelet Morphology Normal Anisocytosis 1+ Sodium Level 144 MMOL/L (136-145) Potassium Level 4.0 MMOL/L (3.5-5.1) Chloride Level 108 MMOL/L (98-107) H Carbon Dioxide Level 28 MMOL/L (21-32) Anion Gap 8 mmol/L (5-15) Blood Urea Nitrogen 73 mg/dL (7-18) H Creatinine 4.1 MG/DL (0.55-1.30) H Estimat Glomerular Filtration Rate mL/min (>60) Glucose Level 156 MG/DL (74-106) H Uric Acid 5.0 MG/DL (2.6-7.2) Calcium Level 7.5 MG/DL (8.5-10.1) L Phosphorus Level 3.9 MG/DL (2.5-4.9) Magnesium Level 2.1 MG/DL (1.8-2.4) Total Bilirubin 0.4 MG/DL (0.2-1.0) Aspartate Amino Transf (AST/SGOT) 41 U/L (15-37) H Alanine Aminotransferase (ALT/SGPT) 55 U/L (12-78) Alkaline Phosphatase 60 U/L (46-116) C-Reactive Protein, Quantitative 1.2 mg/dL (0.00-0.90) H Pro-B-Type Natriuretic Peptide 5652 pg/mL (0-125) H Total Protein 4.8 G/DL (6.4-8.2) L Albumin 1.7 G/DL (3.4-5.0) L Globulin 3.1 g/dL Albumin/Globulin Ratio 0.5 (1.0-2.7) L Current Medications Medications (Trade) Dose Ordered Sig/Phillip Route PRN Reason Start Time Stop Time Status Last Admin Dose Admin Acetaminophen (Tylenol) 500 mg Q4H PRN GT Mild Pain/Temp > 100.5 05/27/19 07:45 06/19/19 20:29 06/13/19 18:14 Amiodarone HCl (Cordarone) 200 mg DAILY ORAL 06/07/19 16:15 07/07/19 16:14 06/14/19 08:35 Chlorhexidine Gluconate (Reina-Hex 2%) 1 applic DAILY@2000 TOPIC 05/27/19 20:00 06/26/19 19:59 06/13/19 19:43 Clonidine HCl (Catapres Tab) 0.1 mg Q4H PRN GT For High Blood Pressure 06/13/19 18:45 07/13/19 18:44 06/14/19 08:34 Daptomycin 500 mg/ Sodium Chloride 55 ml @ 100 mls/hr Q48H IV 05/29/19 13:00 06/23/19 23:59 06/14/19 13:04 Lansoprazole (Prevacid) 30 mg BID NG 06/06/19 18:00 07/06/19 17:59 06/14/19 17:44 Lorazepam (Ativan 2mg/ml 1ml) 1 mg Q4H PRN IV For Anxiety/Agitation 06/08/19 10:00 06/15/19 09:59 06/12/19 13:45 Methylprednisolone Sodium Succinate (Solu-MEDROL) 20 mg EVERY 12 HOURS IVP 06/13/19 09:00 07/04/19 20:59 06/14/19 08:34 Metoprolol Tartrate (Lopressor) 5 mg Q5MIN X 3 IVP 06/07/19 16:15 07/07/19 16:14 06/09/19 15:30 Norepinephrine Bitartrate 4 mg/ Dextrose 250 ml @ 0 mls/hr Q24H IV 05/29/19 19:20 06/28/19 19:19 05/30/19 22:45 Vitamin D (Vitamin D) 5,000 intlu DAILY GT 06/07/19 13:00 07/07/19 12:59 06/14/19 08:33 Maximus Mendoza MD Jun 14, 2019 19:09
[2019-06-14] MEDS: Dyna-Hex 2% Top Sol 2oz TOPIC SCH (20:48)
--- NOTE | 2019-06-14 20:55 | General Progress Note ---
Assessment/Plan Problem List: (1) SOB (shortness of breath) ICD Codes: R06.02 - Shortness of breath SNOMED: 253060348 (2) Cellulitis ICD Codes: L03.90 - Cellulitis, unspecified SNOMED: 187958118 (3) Cellulitis of upper extremity ICD Codes: L03.119 - Cellulitis of unspecified part of limb SNOMED: 077149200 Qualifiers: Qualified Codes: L03.113 - Cellulitis of right upper limb (4) Renal insufficiency ICD Codes: N28.9 - Disorder of kidney and ureter, unspecified SNOMED: 864874020, 919400058 (5) Renal failure (ARF), acute on chronic ICD Codes: N17.9 - Acute kidney failure, unspecified; N18.9 - Chronic kidney disease, unspecified SNOMED: 384442533 (6) Anemia ICD Codes: D64.9 - Anemia, unspecified SNOMED: 861434649 (7) Hypothyroidism ICD Codes: E03.9 - Hypothyroidism, unspecified SNOMED: 36782987 (8) UTI (urinary tract infection) ICD Codes: N39.0 - Urinary tract infection, site not specified SNOMED: 78790982 Status: progressing, unchanged, deteriorating Assessment/Plan: fluid overload edema no wheezing afebrile check lyte trach per pulmonary chf poor prognosis pna sepsis lwound and le fracture Subjective ROS Limited/Unobtainable: Yes Allergies: Coded Allergies: No Known Allergies (Unverified , 05/18/19) Objective Last 24 Hour Vital Signs Date Time Temp Pulse Resp B/P (MAP) Pulse Ox O2 Delivery O2 Flow Rate FiO2 06/14/19 19:00 103 28 148/89 (108) 100 06/14/19 18:00 99 33 132/77 (95) 100 06/14/19 17:21 89 35 40 06/14/19 17:00 40 06/14/19 17:00 90 28 134/70 (91) 99 06/14/19 16:00 Mechanical Ventilator 06/14/19 16:00 86 06/14/19 16:00 97.2 75 0 104/49 (67) 100 06/14/19 15:29 105 34 40 06/14/19 15:00 90 17 142/66 (91) 100 06/14/19 14:00 84 25 147/75 (99) 99 1/18/20 13:29 77 16 40 06/14/19 13:00 57 16 100/49 (66) 99 06/14/19 12:00 40 06/14/19 12:00 Mechanical Ventilator 06/14/19 12:00 97.4 69 27 130/61 (84) 100 06/14/19 11:26 53 16 40 06/14/19 11:17 89 06/14/19 11:00 75 12 128/68 (88) 100 06/14/19 10:00 57 1 131/63 (85) 100 06/14/19 09:24 58 16 40 06/14/19 09:00 91 17 168/103 (124) 99 06/14/19 08:34 174/89 06/14/19 08:00 Mechanical Ventilator 06/14/19 08:00 97.0 89 14 174/70 (104) 99 06/14/19 08:00 40 06/14/19 08:00 89 06/14/19 07:13 100 06/14/19 07:07 79 26 40 06/14/19 07:00 56 16 128/81 (97) 100 06/14/19 06:00 75 16 127/84 (98) 99 06/14/19 05:34 84 34 40 06/14/19 05:00 91 10 137/76 (96) 99 06/14/19 04:00 Mechanical Ventilator 06/14/19 04:00 97.9 90 28 147/81 (103) 99 06/14/19 04:00 40 06/14/19 03:07 83 28 40 06/14/19 03:04 84 06/14/19 03:00 86 24 144/57 (86) 100 06/14/19 02:30 66 16 92/44 (60) 100 06/14/19 02:00 95 30 156/70 (98) 99 06/14/19 01:12 95 30 40 06/14/19 01:00 97.8 92 14 156/72 (100) 98 06/14/19 00:00 Mechanical Ventilator 06/14/19 00:00 87 06/14/19 00:00 40 06/14/19 00:00 84 25 157/63 (94) 100 06/13/19 23:15 57 16 40 1/17/20 23:00 59 16 117/58 (77) 100 06/13/19 22:02 55 16 95/60 (72) 100 06/13/19 22:00 56 16 100 06/13/19 21:10 61 16 40 06/13/19 21:00 67 22 113/54 (73) 100 Intake and Output 06/13/19 06/14/19 19:00 07:00 Intake Total 120 ml 260 ml Output Total 710 ml 95 ml Balance -590 ml 165 ml Free Water 120 ml Tube Feeding 0 ml 260 ml Output Urine Total 310 ml 95 ml Stool Total 400 ml Laboratory Tests 06/14/19 04:52: White Blood Count 9.1, Red Blood Count 2.56L, Hemoglobin 7.8L, Hematocrit 22.7L , Mean Corpuscular Volume 89, Mean Corpuscular Hemoglobin 30.6, Mean Corpuscular Hemoglobin Concent 34.5, Red Cell Distribution Width 15.4H, Platelet Count 121L, Mean Platelet Volume 5.6L, Neutrophils (%) (Auto) , Lymphocytes (%) (Auto) , Monocytes (%) (Auto) , Eosinophils (%) (Auto) , Basophils (%) (Auto) , Differential Total Cells Counted 100, Neutrophils % ( Manual) 95H, Lymphocytes % (Manual) 4L, Monocytes % (Manual) 1, Eosinophils % ( Manual) 0, Basophils % (Manual) 0, Band Neutrophils 0, Platelet Estimate DecreasedL, Platelet Morphology Normal, Anisocytosis 1+, Sodium Level 144, Potassium Level 4.0, Chloride Level 108H, Carbon Dioxide Level 28, Anion Gap 8, Blood Urea Nitrogen 73H, Creatinine 4.1H, Estimat Glomerular Filtration Rate , Glucose Level 156H, Uric Acid 5.0, Calcium Level 7.5L, Phosphorus Level 3.9, Magnesium Level 2.1, Total Bilirubin 0.4, Aspartate Amino Transf (AST/SGOT) 41H , Alanine Aminotransferase (ALT/SGPT) 55, Alkaline Phosphatase 60, C-Reactive Protein, Quantitative 1.2H, Pro-B-Type Natriuretic Peptide 5652H, Total Protein 4.8L, Albumin 1.7L, Globulin 3.1, Albumin/Globulin Ratio 0.5L Height (Feet): 5 Height (Inches): 7.00 Weight (Pounds): 179 Cardiovascular: regular rhythm Respiratory/Chest: lungs clear Abdomen: soft Joslyn Wiggins MD Jun 14, 2019 20:55
[2019-06-15] VITALS (26 sets, daily range): BP systolic 107–176; BP diastolic 51–98
[2019-06-15 06:08] LABS: HEMATOCRIT 23.8 % (42.0-52.0); HEMOGLOBIN 8.2 G/DL (14.2-18.0); MEAN CORPUSCULAR VOLUME 89 FL (80-99); PLATELET COUNT 110 K/UL (150-450); RED BLOOD COUNT 2.67 M/UL (4.70-6.10); RED CELL DISTRIBUTION WIDTH 14.7 % (11.6-14.8); WHITE BLOOD COUNT 8.7 K/UL (4.8-10.8)
[2019-06-15 06:41] LABS: ALANINE AMINOTRANSFERASE 59 U/L (12-78); ALBUMIN 1.6 G/DL (3.4-5.0); ALBUMIN/GLOBULIN RATIO 0.5 (1.0-2.7); ALKALINE PHOSPHATASE 71 U/L (46-116); ANION GAP 7 mmol/L (5-15); ASPARTATE AMINO TRANSFERASE 45 U/L (15-37); BILIRUBIN,TOTAL 0.4 MG/DL (0.2-1.0); BLOOD UREA NITROGEN 53 mg/dL (7-18); CALCIUM 7.4 MG/DL (8.5-10.1); CARBON DIOXIDE 31 MMOL/L (21-32); CHLORIDE 109 MMOL/L (98-107); CREATININE 3.1 MG/DL (0.55-1.30); PHOSPHORUS 2.8 MG/DL (2.5-4.9); POTASSIUM 3.5 MMOL/L (3.5-5.1); SODIUM 147 MMOL/L (136-145)
--- NOTE | 2019-06-15 08:10 | Hematology/Onc Progress Note ---
Assessment/Plan Assessment/Plan # Anemia of chronic disease due to underlying chronic medical issues, multifactorial v Gi bleed --> Anemia workup has been reviewed, rule out gi bleed --> No evidence of hemolysis is noted, peripheral smear has been reviewed. --> Hgb goal >7. Transfuse prn. --> Epogen or iron at this time is not particularly indicated --> Medications have been reviewed --> low threshold for gi evaluation in case has occult + --> hgb trend: 9.3-->9.7-->8.1-->7.6-->8-->9.4-->9.2->7.5-->9.3-->8-->8.1-->8.6- ->7.8-->8.3-->7.6-->8.2 --> transf 05/28/19 with 1 unit prbc, 1 unit on 06/03 --> transfusion is a emergency, no family, no poa, is okay to transfuse # Right upper arm extremity axillary vein dvt --> agree to continue eliquis ONCE bleeding resolved --> continue for total of minimum of 3 months --> rescan arm in 3 mo # Thrombocytopenia is due to infection, i.e. cellulitis of upper extremity, likely picc line infection --> as per id on ax --> picc off --> levoflox/vanc-->zosyn/vanc--> zosyn-->dapto/zosyn --> plt trend 208-->132-->146k-->159-->217-->211-->145 # Respiratory failure s/p vent --> has been failing weaning --> trach as per Desmond Whittaker # Renal insufficiency --> per Dr. Mera # Pneumonia --> abx per id # Dehydration. --> goal of euvolemia # Paroxysmal Atrial fibrillation with rapid ventricular response was on amiodarone gtt, now in sinus rhythm. --> per cards On PO amiodarone 200 bid, Lopressor 25 bid # Dysphagia with ng tube # Dvt ppx eliquis--> continued The timing of this note does not necessarily reflect the time of the patient was seen. Greatly appreciate consultation. Subjective HEENT: Denies: no symptoms, eye pain, blurred vision, tearing, double vision, ear pain, ear discharge, nose pain, nose congestion, throat pain, throat swelling, mouth pain, mouth swelling, other Cardiovascular: Denies: no symptoms, chest pain, edema, irregular heart rate, lightheadedness, palpitations, syncope, other Respiratory: Denies: no symptoms, cough, shortness of breath, SOB with excertion, SOB at rest, sputum, wheezing, other Gastrointestinal/Abdominal: Denies: no symptoms, abdomen distended, abdominal pain, black stools, tarry stools, blood in stool, constipated, diarrhea, difficulty swallowing, nausea, poor appetite, poor fluid intake, rectal bleeding , vomiting, other Neurologic/Psychiatric: Denies: no symptoms, anxiety, depressed, emotional problems, headache, numbness, paresthesia, pre-existing deficit, seizure, tingling, tremors, weakness, other Endocrine: Denies: no symptoms, excessive sweating, flushing, intolerance to cold, intolerance to heat, increased hunger, increased thirst, increased urine, unexplained weight gain, unexplained weight loss, other Hematologic/Lymphatic: Denies: no symptoms, anemia, easy bleeding, easy bruising, adenopathy, other Allergies: Coded Allergies: No Known Allergies (Unverified , 05/18/19) Subjective 05/24: awake and alert, v mask, labs reviewed, apixaban 05/25: as per gi, ngt and eliquis tolerated 05/26: pending clearance but still with ng and nonrebreather 05/27: hypoxic yesterday, deteriorated, coded, now intubated, icu, labs noted 05/28: icu, levophed gtt, hgb 7.6, repeat cbc 05/29: remains in the icu, given prbc last night, no bleeding 05/30: no events, no bleeding, ++ fredo and on pressor 05/31: intubated, bp better on pressor, no bleeding, coag ordered 06/02: reamins ill appearing, on vent, labs noted, on vent, poorly responsive 06/03: no events, no bleeding, labs noted, dw surgery, and Rn, monitoring plt 06/04: tolerating tube feeds, labs noted, in the icu 1/9: restraints, cxr unchanged, anticoagulants on hold until further notice 06/06: no events, no bleeding, no night sweats, no bleeding 06/08: icu, unable to wean per resp, apixaban restarted, labs reviewed 06/09: minimally responsive, on vent and gt feeds, no bleeding 06/10: no acute events, failed to wean, hd for today, h/h stable 06/11: remains altered, may need trach, coags ordered, no bleeding currently 06/12: no events, no bleeding, trach pending, no major changes 06/13: icu, weaning failed, egd pending, hgb 7.6, repeat cbc 06/15: no events, no bleeding, is more responsive, labs reviewed, no changes, on pressor Objective Objective Current Medications Medications (Trade) Dose Ordered Sig/Phillip Route PRN Reason Start Time Stop Time Status Last Admin Dose Admin Acetaminophen (Tylenol) 500 mg Q4H PRN GT Mild Pain/Temp > 100.5 05/27/19 07:45 06/19/19 20:29 06/13/19 18:14 Amiodarone HCl (Cordarone) 200 mg DAILY ORAL 06/07/19 16:15 07/07/19 16:14 06/14/19 08:35 Chlorhexidine Gluconate (Reina-Hex 2%) 1 applic DAILY@1999 TOPIC 05/27/19 20:00 06/26/19 19:59 06/14/19 20:48 Clonidine HCl (Catapres Tab) 0.1 mg Q4H PRN GT For High Blood Pressure 06/13/19 18:45 07/13/19 18:44 06/14/19 08:34 Daptomycin 500 mg/ Sodium Chloride 55 ml @ 100 mls/hr Q48H IV 05/29/19 13:00 06/23/19 23:59 06/14/19 13:04 Lansoprazole (Prevacid) 30 mg BID NG 06/06/19 18:00 07/06/19 17:59 06/14/19 17:44 Lorazepam (Ativan 2mg/ml 1ml) 1 mg Q4H PRN IV For Anxiety/Agitation 06/08/19 10:00 06/15/19 09:59 06/12/19 13:45 Methylprednisolone Sodium Succinate (Solu-MEDROL) 20 mg EVERY 12 HOURS IVP 06/13/19 09:00 07/04/19 20:59 06/14/19 20:48 Metoprolol Tartrate (Lopressor) 5 mg Q5MIN X 3 IVP 06/07/19 16:15 07/07/19 16:14 06/09/19 15:30 Norepinephrine Bitartrate 4 mg/ Dextrose 250 ml @ 0 mls/hr Q24H IV 05/29/19 19:20 06/28/19 19:19 05/30/19 22:45 Vitamin D (Vitamin D) 5,000 intlu DAILY GT 06/07/19 13:00 07/07/19 12:59 06/14/19 08:33 Last 24 Hour Vital Signs Date Time Temp Pulse Resp B/P (MAP) Pulse Ox O2 Delivery O2 Flow Rate FiO2 06/15/19 07:21 59 16 40 06/15/19 07:00 76 23 147/60 (89) 99 06/15/19 06:40 77 16 06/15/19 06:00 76 26 152/66 (94) 99 06/15/19 05:27 79 19 40 06/15/19 05:00 74 18 152/72 (98) 98 06/15/19 04:30 86 22 148/72 (97) 98 06/15/19 04:00 Mechanical Ventilator 06/15/19 04:00 98.5 92 25 176/82 (113) 96 06/15/19 04:00 40 06/15/19 03:48 90 06/15/19 03:04 69 18 40 06/15/19 03:00 73 17 146/69 (94) 95 06/15/19 02:00 86 32 144/74 (97) 99 06/15/19 01:44 61 16 40 06/15/19 01:30 90 32 159/68 (98) 97 06/15/19 01:00 98.5 92 34 164/98 (120) 96 06/15/19 00:00 40 06/15/19 00:00 87 26 152/86 (108) 98 06/15/19 00:00 Mechanical Ventilator 06/14/19 23:32 102 34 40 06/14/19 23:28 92 06/14/19 23:00 76 17 145/78 (100) 98 06/14/19 22:00 94 32 166/76 (106) 99 06/14/19 21:15 97 34 40 06/14/19 21:00 97 31 145/67 (93) 100 20 20:00 118 06/14/19 20:00 40 06/14/19 20:00 Mechanical Ventilator 06/14/19 20:00 97.9 118 27 137/92 (107) 98 20 19:20 151/113 06/14/19 19:00 94 31 40 06/14/19 19:00 103 28 148/89 (108) 100 06/14/19 18:00 99 33 132/77 (95) 100 06/14/19 17:21 89 35 40 06/14/19 17:00 40 06/14/19 17:00 90 28 134/70 (91) 99 06/14/19 16:00 Mechanical Ventilator 06/14/19 16:00 86 06/14/19 16:00 97.2 75 0 104/49 (67) 100 06/14/19 15:29 105 34 40 06/14/19 15:00 90 17 142/66 (91) 100 06/14/19 14:00 84 25 147/75 (99) 99 06/14/19 13:29 77 16 40 06/14/19 13:00 57 16 100/49 (66) 99 06/14/19 12:00 40 06/14/19 12:00 Mechanical Ventilator 06/14/19 12:00 97.4 69 27 130/61 (84) 100 06/14/19 11:26 53 16 40 06/14/19 11:17 89 06/14/19 11:00 75 12 128/68 (88) 100 06/14/19 10:00 57 1 131/63 (85) 100 06/14/19 09:24 58 16 40 06/14/19 09:00 91 17 168/103 (124) 99 06/14/19 08:34 174/89 06/14/19 08:00 Mechanical Ventilator 06/14/19 08:00 97.0 89 14 174/70 (104) 99 06/14/19 08:00 40 06/14/19 08:00 89 06/14/19 07:13 100 06/14/19 07:07 79 26 40 06/14/19 07:00 56 16 128/81 (97) 100 06/14/19 06:00 75 16 127/84 (98) 99 06/14/19 05:34 84 34 40 06/14/19 05:00 91 10 137/76 (96) 99 06/14/19 04:00 Mechanical Ventilator 06/14/19 04:00 97.9 90 28 147/81 (103) 99 06/14/19 04:00 40 06/14/19 03:07 83 28 40 06/14/19 03:04 84 06/14/19 03:00 86 24 144/57 (86) 100 06/14/19 02:30 66 16 92/44 (60) 100 06/14/19 02:00 95 30 156/70 (98) 99 06/14/19 01:12 95 30 40 06/14/19 01:00 97.8 92 14 156/72 (100) 98 06/14/19 00:00 Mechanical Ventilator 06/14/19 00:00 87 06/14/19 00:00 40 06/14/19 00:00 84 25 157/63 (94) 100 06/13/19 23:15 57 16 40 06/13/19 23:00 59 16 117/58 (77) 100 06/13/19 22:02 55 16 95/60 (72) 100 06/13/19 22:00 56 16 100 06/13/19 21:10 61 16 40 06/13/19 21:00 67 22 113/54 (73) 100 06/13/19 20:00 98.8 97 18 110/50 (70) 100 06/13/19 20:00 40 06/13/19 20:00 Mechanical Ventilator 06/13/19 19:56 98 06/13/19 19:20 117/56 06/13/19 19:13 105 22 40 06/13/19 19:00 106 27 152/88 (109) 98 06/13/19 18:55 158/84 06/13/19 18:00 123 35 159/88 (111) 95 06/13/19 17:20 123 36 40 06/13/19 17:00 124 33 172/120 (137) 96 06/13/19 16:00 40 06/13/19 16:00 Mechanical Ventilator 06/13/19 16:00 99.0 96 20 167/83 (111) 98 06/13/19 15:45 179/82 06/13/19 15:40 87 06/13/19 15:08 59 16 40 06/13/19 15:00 81 20 134/54 (80) 100 06/13/19 14:00 74 14 131/53 (79) 100 06/13/19 13:22 88 16 40 06/13/19 13:03 80 13 98 06/13/19 13:00 88 16 139/82 (101) 97 06/13/19 12:00 98.0 89 14 152/73 (99) 96 06/13/19 12:00 Mechanical Ventilator 06/13/19 12:00 40 06/13/19 11:50 89 06/13/19 11:17 60 16 40 06/13/19 11:00 72 22 130/53 (78) 99 06/13/19 10:00 60 16 147/74 (98) 99 06/13/19 09:10 75 20 40 06/13/19 09:00 77 16 116/50 (72) 100 Intake and Output 06/14/19 06/15/19 19:00 07:00 Intake Total 905 ml 1480 ml Output Total 370 ml 1180 ml Balance 535 ml 300 ml Free Water 120 ml IV Total 55 ml Tube Feeding 480 ml 480 ml Blood Product 250 ml Hemodialysis 1000 ml Output Urine Total 180 ml 70 ml Stool Total 190 ml 110 ml Hemodialysis UF 1000 ml Labs Test 06/13/19 03:55 06/14/19 04:52 06/15/19 05:27 White Blood Count 9.8 K/UL (4.8-10.8) 9.1 K/UL (4.8-10.8) 8.7 K/UL (4.8-10.8) Red Blood Count 2.50 M/UL (4.70-6.10) 2.56 M/UL (4.70-6.10) 2.67 M/UL (4.70-6.10) Hemoglobin 7.6 G/DL (14.2-18.0) 7.8 G/DL (14.2-18.0) 8.2 G/DL (14.2-18.0) Hematocrit 22.4 % (42.0-52.0) 22.7 % (42.0-52.0) 23.8 % (42.0-52.0) Mean Corpuscular Volume 90 FL (80-99) 89 FL (80-99) 89 FL (80-99) Mean Corpuscular Hemoglobin 30.6 PG (27.0-31.0) 30.6 PG (27.0-31.0) 30.7 PG (27.0-31.0) Mean Corpuscular Hemoglobin Concent 34.1 G/DL (32.0-36.0) 34.5 G/DL (32.0-36.0) 34.5 G/DL (32.0-36.0) Red Cell Distribution Width 15.8 % (11.6-14.8) 15.4 % (11.6-14.8) 14.7 % (11.6-14.8) Platelet Count 145 K/UL (150-450) 121 K/UL (150-450) 110 K/UL (150-450) Mean Platelet Volume 5.7 FL (6.5-10.1) 5.6 FL (6.5-10.1) 5.8 FL (6.5-10.1) Neutrophils (%) (Auto) % (45.0-75.0) % (45.0-75.0) % (45.0-75.0) Lymphocytes (%) (Auto) % (20.0-45.0) % (20.0-45.0) % (20.0-45.0) Monocytes (%) (Auto) % (1.0-10.0) % (1.0-10.0) % (1.0-10.0) Eosinophils (%) (Auto) % (0.0-3.0) % (0.0-3.0) % (0.0-3.0) Basophils (%) (Auto) % (0.0-2.0) % (0.0-2.0) % (0.0-2.0) Sodium Level 146 MMOL/L (136-145) 144 MMOL/L (136-145) 147 MMOL/L (136-145) Potassium Level 3.2 MMOL/L (3.5-5.1) 4.0 MMOL/L (3.5-5.1) 3.5 MMOL/L (3.5-5.1) Chloride Level 109 MMOL/L (98-107) 108 MMOL/L (98-107) 109 MMOL/L (98-107) Carbon Dioxide Level 31 MMOL/L (21-32) 28 MMOL/L (21-32) 31 MMOL/L (21-32) Anion Gap 6 mmol/L (5-15) 8 mmol/L (5-15) 7 mmol/L (5-15) Blood Urea Nitrogen 63 mg/dL (7-18) 73 mg/dL (7-18) 53 mg/dL (7-18) Creatinine 3.6 MG/DL (0.55-1.30) 4.1 MG/DL (0.55-1.30) 3.1 MG/DL (0.55-1.30) Estimat Glomerular Filtration Rate mL/min (>60) mL/min (>60) mL/min (>60) Glucose Level 123 MG/DL (74-106) 156 MG/DL (74-106) 209 MG/DL (74-106) Calcium Level 7.5 MG/DL (8.5-10.1) 7.5 MG/DL (8.5-10.1) 7.4 MG/DL (8.5-10.1) Total Bilirubin 0.3 MG/DL (0.2-1.0) 0.4 MG/DL (0.2-1.0) 0.4 MG/DL (0.2-1.0) Aspartate Amino Transf (AST/SGOT) 48 U/L (15-37) 41 U/L (15-37) 45 U/L (15-37) Alanine Aminotransferase (ALT/SGPT) 68 U/L (12-78) 55 U/L (12-78) 59 U/L (12-78) Alkaline Phosphatase 56 U/L (46-116) 60 U/L (46-116) 71 U/L (46-116) Total Protein 4.5 G/DL (6.4-8.2) 4.8 G/DL (6.4-8.2) 4.6 G/DL (6.4-8.2) Albumin 1.6 G/DL (3.4-5.0) 1.7 G/DL (3.4-5.0) 1.6 G/DL (3.4-5.0) Globulin 2.9 g/dL 3.1 g/dL 3.0 g/dL Albumin/Globulin Ratio 0.6 (1.0-2.7) 0.5 (1.0-2.7) 0.5 (1.0-2.7) Differential Total Cells Counted 100 Neutrophils % (Manual) 95 % (45-75) Lymphocytes % (Manual) 4 % (20-45) Monocytes % (Manual) 1 % (1-10) Eosinophils % (Manual) 0 % (0-3) Basophils % (Manual) 0 % (0-2) Band Neutrophils 0 % (0-8) Platelet Estimate Decreased Platelet Morphology Normal Anisocytosis 1+ Uric Acid 5.0 MG/DL (2.6-7.2) Phosphorus Level 3.9 MG/DL (2.5-4.9) 2.8 MG/DL (2.5-4.9) Magnesium Level 2.1 MG/DL (1.8-2.4) 2.0 MG/DL (1.8-2.4) C-Reactive Protein, Quantitative 1.2 mg/dL (0.00-0.90) Pro-B-Type Natriuretic Peptide 5652 pg/mL (0-125) Height (Feet): 5 Height (Inches): 7.00 Weight (Pounds): 174 Objective PE: Vitals: reviewed General Appearance: NAD HEENT: normocephalic, atraumatic++ ngt Neck: non-tender, normal alignment Respiratory/Chest: VENT++ Cardiovascular/Chest: normal peripheral pulses, normal rate Abdomen: normal bowel sounds, soft, nontender Extremities: normal range of motion ++ right arm swelling Suleman Addison MD Jun 15, 2019 08:10
[2019-06-15] MEDS: Solu-MEDROL 40mg Inj IVP SCH (08:27)
[2019-06-15] MEDS: Vitamin D 1000 IU Tab GT SCH (08:28)
[2019-06-15] MEDS: Acetaminophen 650mg/20.3ml GT PRN (08:28)
[2019-06-15] MEDS: Amiodarone 200mg tab ORAL SCH (08:28)
--- NOTE | 2019-06-15 11:34 | Nephrology Progress Note ---
Assessment/Plan Problem List: (1) Renal failure (ARF), acute on chronic Assessment: Cr rising (2) Cellulitis of upper extremity (3) A-fib (4) Pneumonia (5) UTI (urinary tract infection) (6) Anemia Assessment: worsened (7) Hypothyroidism Assessment - KIMO on CKD - Urinary tract infection. - Anemia- - Dehydration. - Cellulitis of Upper extremity - HTN Plan taper steroids as possible dialysis 06/10 next 06/12 and 06/14 Trach 06/16 ! DC Midodrine DC IV IV Calcium and PO Vit D ad needed Transfuse one unit PRBcs in ICU- intubated BP meds and Mind altering meds discontinued On midodrine check vanco levels - hold vanco doses previously: Per cardiology Anemia kumari- Avoid Nephrotoxics Per ID Allow CHANDA inhibitor to continue as long as renal function does not worsen. PICC line has been removed. CXR: Increased right pleural effusion and similar left pleural effusion. Increased interstitial and hazy opacities throughout the lungs. Subjective ROS Limited/Unobtainable: Yes Objective Objective Last 24 Hour Vital Signs Date Time Temp Pulse Resp B/P (MAP) Pulse Ox O2 Delivery O2 Flow Rate FiO2 06/15/19 11:15 68 35 40 06/15/19 11:00 52 16 125/51 (75) 99 06/15/19 10:00 71 25 156/68 (97) 99 06/15/19 09:13 100 06/15/19 09:00 76 31 154/74 (100) 97 06/15/19 08:58 98.5 06/15/19 08:56 86 32 40 06/15/19 08:00 40 06/15/19 08:00 98.6 76 25 149/65 (93) 99 06/15/19 08:00 Mechanical Ventilator 06/15/19 08:00 54 06/15/19 07:21 59 16 40 06/15/19 07:00 76 23 147/60 (89) 99 06/15/19 06:40 77 16 06/15/19 06:00 76 26 152/66 (94) 99 06/15/19 05:27 79 19 40 06/15/19 05:00 74 18 152/72 (98) 98 06/15/19 04:30 86 22 148/72 (97) 98 06/15/19 04:00 Mechanical Ventilator 06/15/19 04:00 98.5 92 25 176/82 (113) 96 06/15/19 04:00 40 06/15/19 03:48 90 06/15/19 03:04 69 18 40 06/15/19 03:00 73 17 146/69 (94) 95 06/15/19 02:00 86 32 144/74 (97) 99 06/15/19 01:44 61 16 40 06/15/19 01:30 90 32 159/68 (98) 97 06/15/19 01:00 98.5 92 34 164/98 (120) 96 06/15/19 00:00 40 06/15/19 00:00 87 26 152/86 (108) 98 06/15/19 00:00 Mechanical Ventilator 06/14/19 23:32 102 34 40 06/14/19 23:28 92 06/14/19 23:00 76 17 145/78 (100) 98 06/14/19 22:00 94 32 166/76 (106) 99 06/14/19 21:15 97 34 40 06/14/19 21:00 97 31 145/67 (93) 100 06/14/19 20:00 118 06/14/19 20:00 40 06/14/19 20:00 Mechanical Ventilator 06/14/19 20:00 97.9 118 27 137/92 (107) 98 06/14/19 19:20 151/113 06/14/19 19:00 94 31 40 06/14/19 19:00 103 28 148/89 (108) 100 06/14/19 18:00 99 33 132/77 (95) 100 06/14/19 17:21 89 35 40 06/14/19 17:00 40 06/14/19 17:00 90 28 134/70 (91) 99 06/14/19 16:00 Mechanical Ventilator 06/14/19 16:00 86 06/14/19 16:00 97.2 75 0 104/49 (67) 100 06/14/19 15:29 105 34 40 06/14/19 15:00 90 17 142/66 (91) 100 06/14/19 14:00 84 25 147/75 (99) 99 06/14/19 13:29 77 16 40 06/14/19 13:00 57 16 100/49 (66) 99 06/14/19 12:00 40 06/14/19 12:00 Mechanical Ventilator 06/14/19 12:00 97.4 69 27 130/61 (84) 100 Intake and Output 06/14/19 06/15/19 19:00 07:00 Intake Total 905 ml 1480 ml Output Total 370 ml 1180 ml Balance 535 ml 300 ml Free Water 120 ml IV Total 55 ml Tube Feeding 480 ml 480 ml Blood Product 250 ml Hemodialysis 1000 ml Output Urine Total 180 ml 70 ml Stool Total 190 ml 110 ml Hemodialysis UF 1000 ml Laboratory Tests 06/15/19 05:27: White Blood Count 8.7, Red Blood Count 2.67L, Hemoglobin 8.2L, Hematocrit 23.8L , Mean Corpuscular Volume 89, Mean Corpuscular Hemoglobin 30.7, Mean Corpuscular Hemoglobin Concent 34.5, Red Cell Distribution Width 14.7, Platelet Count 110L, Mean Platelet Volume 5.8L, Neutrophils (%) (Auto) , Lymphocytes (%) (Auto) , Monocytes (%) (Auto) , Eosinophils (%) (Auto) , Basophils (%) (Auto) , Differential Total Cells Counted 100, Neutrophils % (Manual) 94H, Lymphocytes % (Manual) 5L, Monocytes % (Manual) 1, Eosinophils % (Manual) 0, Basophils % ( Manual) 0, Band Neutrophils 0, Platelet Estimate DecreasedL, Platelet Morphology Normal, Anisocytosis 1+, Sodium Level 147H, Potassium Level 3.5, Chloride Level 109H, Carbon Dioxide Level 31, Anion Gap 7, Blood Urea Nitrogen 53H, Creatinine 3.1H, Estimat Glomerular Filtration Rate , Glucose Level 209H, Calcium Level 7.4L, Phosphorus Level 2.8, Magnesium Level 2.0, Total Bilirubin 0.4, Aspartate Amino Transf (AST/SGOT) 45H, Alanine Aminotransferase (ALT/SGPT) 59, Alkaline Phosphatase 71, Total Protein 4.6L, Albumin 1.6L, Globulin 3.0, Albumin/Globulin Ratio 0.5L Height (Feet): 5 Height (Inches): 7.00 Weight (Pounds): 174 General Appearance: no apparent distress EENT: other - vented Respiratory/Chest: decreased breath sounds Objective no change Reinier Mera MD Jun 15, 2019 11:34
[2019-06-15] MEDS ORDERED: NS 275ml ONE (13:49)
--- NOTE | 2019-06-15 15:33 | Surgery Progress Note ---
Surgery Progress Note Subjective Additional Comments trach tomorrow Objective Last 24 Hour Vital Signs Date Time Temp Pulse Resp B/P (MAP) Pulse Ox O2 Delivery O2 Flow Rate FiO2 06/15/19 15:12 73 28 40 06/15/19 13:00 73 27 155/66 (95) 99 06/15/19 12:00 40 06/15/19 12:00 98.3 63 20 140/60 (86) 99 06/15/19 12:00 Mechanical Ventilator 06/15/19 12:00 74 06/15/19 11:15 68 35 40 06/15/19 11:00 52 16 125/51 (75) 99 06/15/19 10:00 71 25 156/68 (97) 99 06/15/19 09:13 100 06/15/19 09:00 76 31 154/74 (100) 97 06/15/19 08:58 98.5 06/15/19 08:56 86 32 40 06/15/19 08:00 40 06/15/19 08:00 98.6 76 25 149/65 (93) 99 06/15/19 08:00 Mechanical Ventilator 06/15/19 08:00 54 06/15/19 07:21 59 16 40 06/15/19 07:00 76 23 147/60 (89) 99 06/15/19 06:40 77 16 06/15/19 06:00 76 26 152/66 (94) 99 06/15/19 05:27 79 19 40 06/15/19 05:00 74 18 152/72 (98) 98 06/15/19 04:30 86 22 148/72 (97) 98 06/15/19 04:00 Mechanical Ventilator 06/15/19 04:00 98.5 92 25 176/82 (113) 96 06/15/19 04:00 40 06/15/19 03:48 90 06/15/19 03:04 69 18 40 06/15/19 03:00 73 17 146/69 (94) 95 06/15/19 02:00 86 32 144/74 (97) 99 06/15/19 01:44 61 16 40 06/15/19 01:30 90 32 159/68 (98) 97 06/15/19 01:00 98.5 92 34 164/98 (120) 96 06/15/19 00:00 40 06/15/19 00:00 87 26 152/86 (108) 98 06/15/19 00:00 Mechanical Ventilator 06/14/19 23:32 102 34 40 06/14/19 23:28 92 06/14/19 23:00 76 17 145/78 (100) 98 06/14/19 22:00 94 32 166/76 (106) 99 06/14/19 21:15 97 34 40 06/14/19 21:00 97 31 145/67 (93) 100 06/14/19 20:00 118 06/14/19 20:00 40 06/14/19 20:00 Mechanical Ventilator 06/14/19 20:00 97.9 118 27 137/92 (107) 98 06/14/19 19:20 151/113 06/14/19 19:00 94 31 40 06/14/19 19:00 103 28 148/89 (108) 100 06/14/19 18:00 99 33 132/77 (95) 100 06/14/19 17:21 89 35 40 06/14/19 17:00 40 06/14/19 17:00 90 28 134/70 (91) 99 06/14/19 16:00 Mechanical Ventilator 06/14/19 16:00 86 06/14/19 16:00 97.2 75 0 104/49 (67) 100 I&O Intake and Output 06/14/19 06/15/19 19:00 07:00 Intake Total 905 ml 1480 ml Output Total 370 ml 1180 ml Balance 535 ml 300 ml Free Water 120 ml IV Total 55 ml Tube Feeding 480 ml 480 ml Blood Product 250 ml Hemodialysis 1000 ml Output Urine Total 180 ml 70 ml Stool Total 190 ml 110 ml Hemodialysis UF 1000 ml Dressing: dry Wound: clean Cardiovascular: RSR Respiratory: clear Abdomen: soft, non-tender, present bowel sounds Extremities: no cyanosis Laboratory Tests Test 06/15/19 05:27 White Blood Count 8.7 K/UL (4.8-10.8) Red Blood Count 2.67 M/UL (4.70-6.10) L Hemoglobin 8.2 G/DL (14.2-18.0) L Hematocrit 23.8 % (42.0-52.0) L Mean Corpuscular Volume 89 FL (80-99) Mean Corpuscular Hemoglobin 30.7 PG (27.0-31.0) Mean Corpuscular Hemoglobin Concent 34.5 G/DL (32.0-36.0) Red Cell Distribution Width 14.7 % (11.6-14.8) Platelet Count 110 K/UL (150-450) L Mean Platelet Volume 5.8 FL (6.5-10.1) L Neutrophils (%) (Auto) % (45.0-75.0) Lymphocytes (%) (Auto) % (20.0-45.0) Monocytes (%) (Auto) % (1.0-10.0) Eosinophils (%) (Auto) % (0.0-3.0) Basophils (%) (Auto) % (0.0-2.0) Differential Total Cells Counted 100 Neutrophils % (Manual) 94 % (45-75) H Lymphocytes % (Manual) 5 % (20-45) L Monocytes % (Manual) 1 % (1-10) Eosinophils % (Manual) 0 % (0-3) Basophils % (Manual) 0 % (0-2) Band Neutrophils 0 % (0-8) Platelet Estimate Decreased L Platelet Morphology Normal Anisocytosis 1+ Sodium Level 147 MMOL/L (136-145) H Potassium Level 3.5 MMOL/L (3.5-5.1) Chloride Level 109 MMOL/L (98-107) H Carbon Dioxide Level 31 MMOL/L (21-32) Anion Gap 7 mmol/L (5-15) Blood Urea Nitrogen 53 mg/dL (7-18) H Creatinine 3.1 MG/DL (0.55-1.30) H Estimat Glomerular Filtration Rate mL/min (>60) Glucose Level 209 MG/DL (74-106) H Calcium Level 7.4 MG/DL (8.5-10.1) L Phosphorus Level 2.8 MG/DL (2.5-4.9) Magnesium Level 2.0 MG/DL (1.8-2.4) Total Bilirubin 0.4 MG/DL (0.2-1.0) Aspartate Amino Transf (AST/SGOT) 45 U/L (15-37) H Alanine Aminotransferase (ALT/SGPT) 59 U/L (12-78) Alkaline Phosphatase 71 U/L (46-116) Total Protein 4.6 G/DL (6.4-8.2) L Albumin 1.6 G/DL (3.4-5.0) L Globulin 3.0 g/dL Albumin/Globulin Ratio 0.5 (1.0-2.7) L Plan Problems: (1) Cellulitis of upper extremity Assessment & Plan: 84M with RUE cellulitis, edema, erythema. no drainage. has RUE picc line recommend removal of picc. removed at bedside by myself on 05/18. pressure held, hemostasis noted, dressings applied. cath tip sent for cultures DVT duplex studies with acute thrombus IV Abx as per ID UA pending Cx results keep RUE elevated on pillows okay for diet AM labs anticoagulation off load pressure for dti noted cellulitis and edema improved deteriorated intubated on vent support likely respiratory insufficiency labs ordered wean vent okay for tube feeds via ng - cont as tolerated wean vent am labs HD as per renal now with right IJ Temp HD cath will follow with recs thank you (2) Cellulitis Assessment & Plan: Pt presented on admission with reabsorbing blister lateral R heel. Base of injury indurated with delineated margins(L)4cm x (W)3cm.Non- blanching erythema Sacrum ,R and L buttocks(L)8.5cm x (W)9cm, with a partial thickness pressure injury noted to L buttocks. Base of wound is moist and viable (L)2.3cm x (W)3cm. Area around wound tender when minimally palpated. Pt noted to be wearing splint L foot. Per pt he fractured foot a few weeks ago. Splint removed to assess skin integrity. L heel and malleoli are pink and blanchable.Cavilon Skin Barrier applied to L heel and malleoli and each area covered with Optifoam drsg. Splint reapplied. No other skin concerns noted. unchanged Partial Thickness pressure injury L buttocks resolved . Non-blanching erythema without induration noted to Sacrum,R and L buttocks. (L)8cm x (W)9cm. Scrotum is grossly enlarged and is erythematous and macerated. Penile shaft is grossly swollen .Pt noted to have a partially opened blood blister with 25% biofilm at base of shaft of penis.(L)4.5cm x (W)2.5cm. Bilat groin, medial /posterior aspects of both upper thighs are erythematous and denuded. R lower ext edematous. R heel blister reabsorbed. Non--blanching erythema without induration noted to R heel. Splint removed from L foot. Optifoam drsgs removed from malleoli and heel. Pt noted to have developed several DTPI's despite having Optifoam drsgs. DTPI noted to L achilles . Base of wound is purple and fluctuant (L)0.6cm x (W) 2.7cm.DTPI noted to medial L malleolus(L)0.2cm x (W)0.3cm.Base of wound is purple with marginal erythema. DTPI noted to dorsal L foot. Base of wound is purple with marginal erythema along borders (L)0.9cm x (W)0.5cm.L heel is boggy with non-blanching erythema. Cavilon Skin Barrier applied to affected areas on L foot . Dorsal L foot ,Achilles .R and L malleoli and L heel each covered with Optifoam drsg. Non-blanching erythema without induration noted to lateral L tibia. At plantar aspect of L hallux small dry eschar noted. No erythema or fluctuance periwound. (L)0.5cm x (W)0.4cm. IN addition to Optifoam drsgs placed over each bony prominence of L foot ABD pads placed over dorsal and plantar L foot , Abd pads aligned along L tibia. Splint realigned to L foot Wrapped loosely with Kerlix then wrapped loosely with [place] wrap. L foot floated off mattress with pillow. Tx.Plan: Apply Cavilon to Dorsal L foot. L achilles .Medial/Lateral Malleoli L Foot and L heel. Cover each site with Optifoam drsg. Change every 7 days and prn. Apply Cavilon Plantar L foot. Cover with Optifoam drsg. Change every 7 days and prn. Apply Moisture Barrier Paste to sacrum. Cover with Optifoam drsg. Changee very 7 days and prn. Apply Cavilon Skin Barrier to Both heels. Cover each heel with Optifoam drsg. Change every 7 days and prn. Cleanse wound Shaft of penis with saline. Apply Moisture Barrier Paste Daily and prn. Apply Moisture Barrier Paste to Bilat groin, Scrotum, Medial/Posterior aspects of both upper thighs with each perineal care. Reposition at least every 2hours or as tolerated. Off-load heels with pillows. APM/LA L Mattress overlay. (3) SOB (shortness of breath) Assessment & Plan: Unfortunately patient has been in the intensive care unit on ventilatory support unable to be weaned from vent. Will likely require prolonged ventilatory support. Respiratory insufficiency not improving. Patient is full code as per identifiable documentation in patient's chart and medical record. No family or next kin available. Given patient's wishes current condition and course of a care tracheostomy is indicated recommended. Tracheostomy would be medically necessary as a next step in patient's care plan. We will proceed with tracheostomy tomorrow discussed with patient's medical multidisciplinary team Bennett Logan Jun 15, 2019 15:33
--- NOTE | 2019-06-15 16:07 | Cardiology Progress Note ---
Assessment/Plan Assessment/Plan 1. SVT resolved now in SR/SB, continue amiodarone. 2. Paroxysmal atrial fibrillation now in sinus rhythm. 3. Septic shock, resolved, likely due to bilateral PNA, off midodrine. 4. Oliguric acute kidney injury, CXR shows B/L pulmonary edema, on HD. 5. Small pericardial effusion with pleural effusion, s/p HD. 6. B/L pleural effusion. 7. Ventilatory derived respiratory failure, s/p tracheostomy tube placement. 8. Dysphagia, s/p PEG placement. Subjective Subjective Sinus rhythm at rate of 73. s/p tracheostomy and PEG placement. Objective Last 24 Hour Vital Signs Date Time Temp Pulse Resp B/P (MAP) Pulse Ox O2 Delivery O2 Flow Rate FiO2 06/15/19 15:12 73 28 40 06/15/19 13:00 73 27 155/66 (95) 99 06/15/19 12:00 40 06/15/19 12:00 98.3 63 20 140/60 (86) 99 06/15/19 12:00 Mechanical Ventilator 06/15/19 12:00 74 06/15/19 11:15 68 35 40 06/15/19 11:00 52 16 125/51 (75) 99 06/15/19 10:00 71 25 156/68 (97) 99 06/15/19 09:13 100 06/15/19 09:00 76 31 154/74 (100) 97 06/15/19 08:58 98.5 06/15/19 08:56 86 32 40 06/15/19 08:00 40 06/15/19 08:00 98.6 76 25 149/65 (93) 99 06/15/19 08:00 Mechanical Ventilator 06/15/19 08:00 54 06/15/19 07:21 59 16 40 06/15/19 07:00 76 23 147/60 (89) 99 06/15/19 06:40 77 16 06/15/19 06:00 76 26 152/66 (94) 99 06/15/19 05:27 79 19 40 06/15/19 05:00 74 18 152/72 (98) 98 06/15/19 04:30 86 22 148/72 (97) 98 06/15/19 04:00 Mechanical Ventilator 06/15/19 04:00 98.5 92 25 176/82 (113) 96 1/19/20 04:00 40 06/15/19 03:48 90 06/15/19 03:04 69 18 40 06/15/19 03:00 73 17 146/69 (94) 95 06/15/19 02:00 86 32 144/74 (97) 99 06/15/19 01:44 61 16 40 06/15/19 01:30 90 32 159/68 (98) 97 06/15/19 01:00 98.5 92 34 164/98 (120) 96 06/15/19 00:00 40 06/15/19 00:00 87 26 152/86 (108) 98 06/15/19 00:00 Mechanical Ventilator 06/14/19 23:32 102 34 40 06/14/19 23:28 92 06/14/19 23:00 76 17 145/78 (100) 98 06/14/19 22:00 94 32 166/76 (106) 99 06/14/19 21:15 97 34 40 06/14/19 21:00 97 31 145/67 (93) 100 06/14/19 20:00 118 06/14/19 20:00 40 06/14/19 20:00 Mechanical Ventilator 06/14/19 20:00 97.9 118 27 137/92 (107) 98 06/14/19 19:20 151/113 06/14/19 19:00 94 31 40 06/14/19 19:00 103 28 148/89 (108) 100 06/14/19 18:00 99 33 132/77 (95) 100 06/14/19 17:21 89 35 40 06/14/19 17:00 40 06/14/19 17:00 90 28 134/70 (91) 99 Intake and Output 06/14/19 06/15/19 19:00 07:00 Intake Total 905 ml 1480 ml Output Total 370 ml 1180 ml Balance 535 ml 300 ml Free Water 120 ml IV Total 55 ml Tube Feeding 480 ml 480 ml Blood Product 250 ml Hemodialysis 1000 ml Output Urine Total 180 ml 70 ml Stool Total 190 ml 110 ml Hemodialysis UF 1000 ml 2D Echo: EF 65%,Mod AR,Elevated RAP, RVSP 30,Small pericardial eff, pleural effusion Laboratory Tests Test 06/15/19 05:27 White Blood Count 8.7 K/UL (4.8-10.8) Red Blood Count 2.67 M/UL (4.70-6.10) L Hemoglobin 8.2 G/DL (14.2-18.0) L Hematocrit 23.8 % (42.0-52.0) L Mean Corpuscular Volume 89 FL (80-99) Mean Corpuscular Hemoglobin 30.7 PG (27.0-31.0) Mean Corpuscular Hemoglobin Concent 34.5 G/DL (32.0-36.0) Red Cell Distribution Width 14.7 % (11.6-14.8) Platelet Count 110 K/UL (150-450) L Mean Platelet Volume 5.8 FL (6.5-10.1) L Neutrophils (%) (Auto) % (45.0-75.0) Lymphocytes (%) (Auto) % (20.0-45.0) Monocytes (%) (Auto) % (1.0-10.0) Eosinophils (%) (Auto) % (0.0-3.0) Basophils (%) (Auto) % (0.0-2.0) Differential Total Cells Counted 100 Neutrophils % (Manual) 94 % (45-75) H Lymphocytes % (Manual) 5 % (20-45) L Monocytes % (Manual) 1 % (1-10) Eosinophils % (Manual) 0 % (0-3) Basophils % (Manual) 0 % (0-2) Band Neutrophils 0 % (0-8) Platelet Estimate Decreased L Platelet Morphology Normal Anisocytosis 1+ Sodium Level 147 MMOL/L (136-145) H Potassium Level 3.5 MMOL/L (3.5-5.1) Chloride Level 109 MMOL/L (98-107) H Carbon Dioxide Level 31 MMOL/L (21-32) Anion Gap 7 mmol/L (5-15) Blood Urea Nitrogen 53 mg/dL (7-18) H Creatinine 3.1 MG/DL (0.55-1.30) H Estimat Glomerular Filtration Rate mL/min (>60) Glucose Level 209 MG/DL (74-106) H Calcium Level 7.4 MG/DL (8.5-10.1) L Phosphorus Level 2.8 MG/DL (2.5-4.9) Magnesium Level 2.0 MG/DL (1.8-2.4) Total Bilirubin 0.4 MG/DL (0.2-1.0) Aspartate Amino Transf (AST/SGOT) 45 U/L (15-37) H Alanine Aminotransferase (ALT/SGPT) 59 U/L (12-78) Alkaline Phosphatase 71 U/L (46-116) Total Protein 4.6 G/DL (6.4-8.2) L Albumin 1.6 G/DL (3.4-5.0) L Globulin 3.0 g/dL Albumin/Globulin Ratio 0.5 (1.0-2.7) L Objective HEENT: Atraumatic and normocephalic. Anicteric. Pupils are equal, round, and reactive to light and accommodation. Extraocular muscles intact. NECK: JVP less than 5 cm. No carotid bruit. Carotid upstroke is 2+ bilaterally. + trach in place. CARDIOVASCULAR: Normal S1, S2. Regular rate and rhythm. No murmurs, gallops, or rubs. PMI is at fourth intercostal space in the midclavicular line. LUNGS: Diminished both bases. ABDOMEN: Soft, nontender, and nondistended. No hepatosplenomegaly. Positive bowel sounds. + PEG in place. EXTREMITIES: No evidence of edema, clubbing, or cyanosis. Del Garcia MD Jun 15, 2019 16:07
--- NOTE | 2019-06-15 17:05 | Pulmonology Progress Note ---
Assessment/Plan Assessment/Plan IMPRESSION AND PLAN: 1. Pneumonia. Bilateral upper lobe. 2. Cellulitis. 3. History of COPD. 4. Hypertension. 5. Afib with RVR; rate controlled 6. Respiratory failure; on vent; unable to wean DISCUSSION: 1. Intubated; on AC mode; Needs trach; notified Dr Logan 2. Agree with present management and care. 3. Continue medications and HHN with atrovent only Arsen Whittaker M.D. Subjective Interval Events: For trach in AM Constitutional: Reports: no symptoms HEENT: Repors: no symptoms Respiratory: Reports: no symptoms Cardiovascular: Reports: no symptoms Gastrointestinal/Abdominal: Reports: no symptoms Allergies: Coded Allergies: No Known Allergies (Unverified , 05/18/19) Objective Last 24 Hour Vital Signs Date Time Temp Pulse Resp B/P (MAP) Pulse Ox O2 Delivery O2 Flow Rate FiO2 06/15/19 16:00 98.2 81 24 162/74 (103) 100 06/15/19 15:12 73 28 40 06/15/19 15:00 76 32 170/67 (101) 99 06/15/19 14:00 71 22 150/64 (92) 99 06/15/19 13:00 73 27 155/66 (95) 99 06/15/19 12:00 40 06/15/19 12:00 98.3 63 20 140/60 (86) 99 06/15/19 12:00 Mechanical Ventilator 06/15/19 12:00 74 06/15/19 11:15 68 35 40 06/15/19 11:00 52 16 125/51 (75) 99 06/15/19 10:00 71 25 156/68 (97) 99 06/15/19 09:13 100 06/15/19 09:00 76 31 154/74 (100) 97 06/15/19 08:58 98.5 06/15/19 08:56 86 32 40 06/15/19 08:00 40 06/15/19 08:00 98.6 76 25 149/65 (93) 99 06/15/19 08:00 Mechanical Ventilator 06/15/19 08:00 54 06/15/19 07:21 59 16 40 06/15/19 07:00 76 23 147/60 (89) 99 06/15/19 06:40 77 16 06/15/19 06:00 76 26 152/66 (94) 99 06/15/19 05:27 79 19 40 06/15/19 05:00 74 18 152/72 (98) 98 06/15/19 04:30 86 22 148/72 (97) 98 06/15/19 04:00 Mechanical Ventilator 06/15/19 04:00 98.5 92 25 176/82 (113) 96 06/15/19 04:00 40 06/15/19 03:48 90 06/15/19 03:04 69 18 40 06/15/19 03:00 73 17 146/69 (94) 95 06/15/19 02:00 86 32 144/74 (97) 99 06/15/19 01:44 61 16 40 06/15/19 01:30 90 32 159/68 (98) 97 06/15/19 01:00 98.5 92 34 164/98 (120) 96 06/15/19 00:00 40 06/15/19 00:00 87 26 152/86 (108) 98 06/15/19 00:00 Mechanical Ventilator 06/14/19 23:32 102 34 40 06/14/19 23:28 92 06/14/19 23:00 76 17 145/78 (100) 98 06/14/19 22:00 94 32 166/76 (106) 99 06/14/19 21:15 97 34 40 06/14/19 21:00 97 31 145/67 (93) 100 06/14/19 20:00 118 06/14/19 20:00 40 06/14/19 20:00 Mechanical Ventilator 06/14/19 20:00 97.9 118 27 137/92 (107) 98 06/14/19 19:20 151/113 06/14/19 19:00 94 31 40 06/14/19 19:00 103 28 148/89 (108) 100 06/14/19 18:00 99 33 132/77 (95) 100 06/14/19 17:21 89 35 40 Intake and Output 06/14/19 06/15/19 19:00 07:00 Intake Total 905 ml 1480 ml Output Total 370 ml 1180 ml Balance 535 ml 300 ml Free Water 120 ml IV Total 55 ml Tube Feeding 480 ml 480 ml Blood Product 250 ml Hemodialysis 1000 ml Output Urine Total 180 ml 70 ml Stool Total 190 ml 110 ml Hemodialysis UF 1000 ml General Appearance: no acute distress HEENT: normocephalic Respiratory/Chest: chest wall non-tender, decreased breath sounds Cardiovascular: normal peripheral pulses, normal rate Abdomen: normal bowel sounds Laboratory Tests 06/15/19 05:27: White Blood Count 8.7, Red Blood Count 2.67L, Hemoglobin 8.2L, Hematocrit 23.8L , Mean Corpuscular Volume 89, Mean Corpuscular Hemoglobin 30.7, Mean Corpuscular Hemoglobin Concent 34.5, Red Cell Distribution Width 14.7, Platelet Count 110L, Mean Platelet Volume 5.8L, Neutrophils (%) (Auto) , Lymphocytes (%) (Auto) , Monocytes (%) (Auto) , Eosinophils (%) (Auto) , Basophils (%) (Auto) , Differential Total Cells Counted 100, Neutrophils % (Manual) 94H, Lymphocytes % (Manual) 5L, Monocytes % (Manual) 1, Eosinophils % (Manual) 0, Basophils % ( Manual) 0, Band Neutrophils 0, Platelet Estimate DecreasedL, Platelet Morphology Normal, Anisocytosis 1+, Sodium Level 147H, Potassium Level 3.5, Chloride Level 109H, Carbon Dioxide Level 31, Anion Gap 7, Blood Urea Nitrogen 53H, Creatinine 3.1H, Estimat Glomerular Filtration Rate , Glucose Level 209H, Calcium Level 7.4L, Phosphorus Level 2.8, Magnesium Level 2.0, Total Bilirubin 0.4, Aspartate Amino Transf (AST/SGOT) 45H, Alanine Aminotransferase (ALT/SGPT) 59, Alkaline Phosphatase 71, Total Protein 4.6L, Albumin 1.6L, Globulin 3.0, Albumin/Globulin Ratio 0.5L Current Medications Medications (Trade) Dose Ordered Sig/Phillip Route PRN Reason Start Time Stop Time Status Last Admin Dose Admin Acetaminophen (Tylenol) 500 mg Q4H PRN GT Mild Pain/Temp > 100.5 05/27/19 07:45 06/19/19 20:29 06/15/19 08:28 Amiodarone HCl (Cordarone) 200 mg DAILY ORAL 06/07/19 16:15 07/07/19 16:14 06/14/19 08:35 Chlorhexidine Gluconate (Reina-Hex 2%) 1 applic DAILY@2000 TOPIC 05/27/19 20:00 06/26/19 19:59 06/14/19 20:48 Clonidine HCl (Catapres Tab) 0.1 mg Q4H PRN GT For High Blood Pressure 06/13/19 18:45 07/13/19 18:44 06/14/19 08:34 Daptomycin 500 mg/ Sodium Chloride 55 ml @ 100 mls/hr Q48H IV 05/29/19 13:00 06/23/19 23:59 06/14/19 13:04 Lansoprazole (Prevacid) 30 mg BID NG 06/06/19 18:00 07/06/19 17:59 06/15/19 08:28 Methylprednisolone Sodium Succinate (Solu-MEDROL) 20 mg DAILY IVP 06/16/19 09:00 07/04/19 20:59 Metoprolol Tartrate (Lopressor) 5 mg Q5MIN X 3 IVP 06/07/19 16:15 07/07/19 16:14 06/09/19 15:30 Norepinephrine Bitartrate 4 mg/ Dextrose 250 ml @ 0 mls/hr Q24H IV 05/29/19 19:20 06/28/19 19:19 05/30/19 22:45 Vitamin D (Vitamin D) 5,000 intlu DAILY GT 06/07/19 13:00 07/07/19 12:59 06/15/19 08:28 Arsen Whittaker MD Jun 15, 2019 17:05
[2019-06-15] MEDS: Dyna-Hex 2% Top Sol 2oz TOPIC SCH (19:39)
--- NOTE | 2019-06-15 20:41 | General Progress Note ---
Assessment/Plan Problem List: (1) SOB (shortness of breath) ICD Codes: R06.02 - Shortness of breath SNOMED: 126310470 (2) Cellulitis ICD Codes: L03.90 - Cellulitis, unspecified SNOMED: 924645210 (3) Cellulitis of upper extremity ICD Codes: L03.119 - Cellulitis of unspecified part of limb SNOMED: 888871160 Qualifiers: Qualified Codes: L03.113 - Cellulitis of right upper limb (4) Renal insufficiency ICD Codes: N28.9 - Disorder of kidney and ureter, unspecified SNOMED: 804684908, 585156036 (5) Renal failure (ARF), acute on chronic ICD Codes: N17.9 - Acute kidney failure, unspecified; N18.9 - Chronic kidney disease, unspecified SNOMED: 662281198 (6) Anemia ICD Codes: D64.9 - Anemia, unspecified SNOMED: 537229118 (7) Hypothyroidism ICD Codes: E03.9 - Hypothyroidism, unspecified SNOMED: 34012942 (8) UTI (urinary tract infection) ICD Codes: N39.0 - Urinary tract infection, site not specified SNOMED: 42407648 Status: progressing, unchanged, deteriorating Assessment/Plan: failure to wean lethargic trach per pulmonary check lyte trach per pulmonary chf pna sepsis lwound and le fracture Subjective ROS Limited/Unobtainable: Yes Allergies: Coded Allergies: No Known Allergies (Unverified , 05/18/19) Objective Last 24 Hour Vital Signs Date Time Temp Pulse Resp B/P (MAP) Pulse Ox O2 Delivery O2 Flow Rate FiO2 06/15/19 19:26 74 29 35 06/15/19 19:20 145/61 06/15/19 19:00 76 28 145/61 (89) 99 06/15/19 18:00 82 22 154/66 (95) 100 06/15/19 17:17 82 31 40 06/15/19 17:00 84 17 145/73 (97) 100 06/15/19 16:00 84 06/15/19 16:00 98.2 81 24 162/74 (103) 100 06/15/19 16:00 Mechanical Ventilator 06/15/19 16:00 40 06/15/19 15:12 73 28 40 06/15/19 15:00 76 32 170/67 (101) 99 06/15/19 14:00 71 22 150/64 (92) 99 06/15/19 13:00 73 27 155/66 (95) 99 06/15/19 12:00 40 06/15/19 12:00 98.3 63 20 140/60 (86) 99 06/15/19 12:00 Mechanical Ventilator 06/15/19 12:00 74 06/15/19 11:15 68 35 40 06/15/19 11:00 52 16 125/51 (75) 99 06/15/19 10:00 71 25 156/68 (97) 99 06/15/19 09:13 100 06/15/19 09:00 76 31 154/74 (100) 97 06/15/19 08:58 98.5 06/15/19 08:56 86 32 40 06/15/19 08:00 40 06/15/19 08:00 98.6 76 25 149/65 (93) 99 06/15/19 08:00 Mechanical Ventilator 06/15/19 08:00 54 06/15/19 07:21 59 16 40 06/15/19 07:00 76 23 147/60 (89) 99 06/15/19 06:40 77 16 06/15/19 06:00 76 26 152/66 (94) 99 06/15/19 05:27 79 19 40 06/15/19 05:00 74 18 152/72 (98) 98 06/15/19 04:30 86 22 148/72 (97) 98 06/15/19 04:00 Mechanical Ventilator 06/15/19 04:00 98.5 92 25 176/82 (113) 96 06/15/19 04:00 40 06/15/19 03:48 90 06/15/19 03:04 69 18 40 06/15/19 03:00 73 17 146/69 (94) 95 06/15/19 02:00 86 32 144/74 (97) 99 06/15/19 01:44 61 16 40 06/15/19 01:30 90 32 159/68 (98) 97 06/15/19 01:00 98.5 92 34 164/98 (120) 96 06/15/19 00:00 40 06/15/19 00:00 87 26 152/86 (108) 98 06/15/19 00:00 Mechanical Ventilator 06/14/19 23:32 102 34 40 06/14/19 23:28 92 06/14/19 23:00 76 17 145/78 (100) 98 06/14/19 22:00 94 32 166/76 (106) 99 06/14/19 21:15 97 34 40 06/14/19 21:00 97 31 145/67 (93) 100 Intake and Output 06/14/19 06/15/19 19:00 07:00 Intake Total 905 ml 1480 ml Output Total 370 ml 1180 ml Balance 535 ml 300 ml Free Water 120 ml IV Total 55 ml Tube Feeding 480 ml 480 ml Blood Product 250 ml Hemodialysis 1000 ml Output Urine Total 180 ml 70 ml Stool Total 190 ml 110 ml Hemodialysis UF 1000 ml Laboratory Tests 06/15/19 05:27: White Blood Count 8.7, Red Blood Count 2.67L, Hemoglobin 8.2L, Hematocrit 23.8L , Mean Corpuscular Volume 89, Mean Corpuscular Hemoglobin 30.7, Mean Corpuscular Hemoglobin Concent 34.5, Red Cell Distribution Width 14.7, Platelet Count 110L, Mean Platelet Volume 5.8L, Neutrophils (%) (Auto) , Lymphocytes (%) (Auto) , Monocytes (%) (Auto) , Eosinophils (%) (Auto) , Basophils (%) (Auto) , Differential Total Cells Counted 100, Neutrophils % (Manual) 94H, Lymphocytes % (Manual) 5L, Monocytes % (Manual) 1, Eosinophils % (Manual) 0, Basophils % ( Manual) 0, Band Neutrophils 0, Platelet Estimate DecreasedL, Platelet Morphology Normal, Anisocytosis 1+, Sodium Level 147H, Potassium Level 3.5, Chloride Level 109H, Carbon Dioxide Level 31, Anion Gap 7, Blood Urea Nitrogen 53H, Creatinine 3.1H, Estimat Glomerular Filtration Rate , Glucose Level 209H, Calcium Level 7.4L, Phosphorus Level 2.8, Magnesium Level 2.0, Total Bilirubin 0.4, Aspartate Amino Transf (AST/SGOT) 45H, Alanine Aminotransferase (ALT/SGPT) 59, Alkaline Phosphatase 71, Total Protein 4.6L, Albumin 1.6L, Globulin 3.0, Albumin/Globulin Ratio 0.5L Height (Feet): 5 Height (Inches): 7.00 Weight (Pounds): 174 Cardiovascular: regular rhythm Respiratory/Chest: rhonchi - bilaterally Joslyn Wiggins MD Jun 15, 2019 20:41
[2019-06-16] VITALS (36 sets, daily range): BP systolic 121–195; BP diastolic 46–128
[2019-06-16 05:59] LABS: HEMATOCRIT 24.8 % (42.0-52.0); HEMOGLOBIN 8.6 G/DL (14.2-18.0); MEAN CORPUSCULAR VOLUME 90 FL (80-99); PLATELET COUNT 117 K/UL (150-450); RED BLOOD COUNT 2.76 M/UL (4.70-6.10); WHITE BLOOD COUNT 8.4 K/UL (4.8-10.8)
[2019-06-16 06:03] LABS: INR 1.2 (0.9-1.1)
[2019-06-16 06:08] LABS: ALANINE AMINOTRANSFERASE 68 U/L (12-78); ALBUMIN 1.7 G/DL (3.4-5.0); ALBUMIN/GLOBULIN RATIO 0.6 (1.0-2.7); ALKALINE PHOSPHATASE 66 U/L (46-116); ANION GAP 7 mmol/L (5-15); ASPARTATE AMINO TRANSFERASE 50 U/L (15-37); BILIRUBIN,TOTAL 0.4 MG/DL (0.2-1.0); BLOOD UREA NITROGEN 65 mg/dL (7-18); CALCIUM 7.7 MG/DL (8.5-10.1); CARBON DIOXIDE 32 MMOL/L (21-32); CHLORIDE 110 MMOL/L (98-107); CREATININE 3.5 MG/DL (0.55-1.30); POTASSIUM 3.4 MMOL/L (3.5-5.1); SODIUM 149 MMOL/L (136-145)
[2019-06-16 06:18] LABS: PHOSPHORUS 2.9 MG/DL (2.5-4.9)
--- NOTE | 2019-06-16 07:53 | Hematology/Onc Progress Note ---
Assessment/Plan Assessment/Plan # Anemia of chronic disease due to underlying chronic medical issues, multifactorial v Gi bleed --> Anemia workup has been reviewed, rule out gi bleed --> No evidence of hemolysis is noted, peripheral smear has been reviewed. --> Hgb goal >7. Transfuse prn. --> Epogen or iron at this time is not particularly indicated --> Medications have been reviewed --> low threshold for gi evaluation in case has occult + --> hgb trend: 9.3-->9.7-->8.1-->7.6-->8-->9.4-->9.2->7.5-->9.3-->8-->8.1-->8.6- ->7.8-->8.3-->7.6-->8.2-->8.6 --> transf 05/28/19 with 1 unit prbc, 1 unit on 06/03 --> transfusion is a emergency, no family, no poa, is okay to transfuse # Right upper arm extremity axillary vein dvt --> agree to continue eliquis ONCE bleeding resolved --> continue for total of minimum of 3 months --> rescan arm in 3 mo # Thrombocytopenia is due to infection, i.e. cellulitis of upper extremity, likely picc line infection --> as per id on ax --> picc off --> levoflox/vanc-->zosyn/vanc--> zosyn-->dapto/zosyn --> plt trend 208-->132-->146k-->159-->217-->211-->145-->117 # Respiratory failure s/p vent --> has been failing weaning --> trach as per Desmond Whittaker # Renal insufficiency --> per Dr. Mera # Pneumonia --> abx per id # Dehydration. --> goal of euvolemia # Paroxysmal Atrial fibrillation with rapid ventricular response was on amiodarone gtt, now in sinus rhythm. --> per cards On PO amiodarone 200 bid, Lopressor 25 bid # Dysphagia with ng tube # Septic shock --> has required icu admission, and pressor # Dvt ppx eliquis--> continued The timing of this note does not necessarily reflect the time of the patient was seen. Greatly appreciate consultation. Subjective Constitutional: Denies: no symptoms, chills, fever, malaise, weakness, other HEENT: Denies: no symptoms, eye pain, blurred vision, tearing, double vision, ear pain, ear discharge, nose pain, nose congestion, throat pain, throat swelling, mouth pain, mouth swelling, other Cardiovascular: Denies: no symptoms, chest pain, edema, irregular heart rate, lightheadedness, palpitations, syncope, other Respiratory: Denies: no symptoms, cough, shortness of breath, SOB with excertion, SOB at rest, sputum, wheezing, other Gastrointestinal/Abdominal: Denies: no symptoms, abdomen distended, abdominal pain, black stools, tarry stools, blood in stool, constipated, diarrhea, difficulty swallowing, nausea, poor appetite, poor fluid intake, rectal bleeding , vomiting, other Neurologic/Psychiatric: Denies: no symptoms, anxiety, depressed, emotional problems, headache, numbness, paresthesia, pre-existing deficit, seizure, tingling, tremors, weakness, other Endocrine: Denies: no symptoms, excessive sweating, flushing, intolerance to cold, intolerance to heat, increased hunger, increased thirst, increased urine, unexplained weight gain, unexplained weight loss, other Allergies: Coded Allergies: No Known Allergies (Unverified , 05/18/19) Subjective 05/24: awake and alert, v mask, labs reviewed, apixaban 05/25: as per gi, ngt and eliquis tolerated 05/26: pending clearance but still with ng and nonrebreather 05/27: hypoxic yesterday, deteriorated, coded, now intubated, icu, labs noted 05/28: icu, levophed gtt, hgb 7.6, repeat cbc 05/29: remains in the icu, given prbc last night, no bleeding 05/30: no events, no bleeding, ++ fredo and on pressor 05/31: intubated, bp better on pressor, no bleeding, coag ordered 06/02: reamins ill appearing, on vent, labs noted, on vent, poorly responsive 06/03: no events, no bleeding, labs noted, dw surgery, and Rn, monitoring plt 06/04: tolerating tube feeds, labs noted, in the icu 06/05: restraints, cxr unchanged, anticoagulants on hold until further notice 06/06: no events, no bleeding, no night sweats, no bleeding 06/08: icu, unable to wean per resp, apixaban restarted, labs reviewed 06/09: minimally responsive, on vent and gt feeds, no bleeding 06/10: no acute events, failed to wean, hd for today, h/h stable 06/11: remains altered, may need trach, coags ordered, no bleeding currently 06/12: no events, no bleeding, trach pending, no major changes 06/13: icu, weaning failed, egd pending, hgb 7.6, repeat cbc 06/15: no events, no bleeding, is more responsive, labs reviewed, no changes, on pressor 06/16: remains on vent, no bleeding, on pressors, labs noted Objective Objective Current Medications Medications (Trade) Dose Ordered Sig/Phillip Route PRN Reason Start Time Stop Time Status Last Admin Dose Admin Acetaminophen (Tylenol) 500 mg Q4H PRN GT Mild Pain/Temp > 100.5 05/27/19 07:45 06/19/19 20:29 06/15/19 08:28 Amiodarone HCl (Cordarone) 200 mg DAILY ORAL 06/07/19 16:15 07/07/19 16:14 06/14/19 08:35 Chlorhexidine Gluconate (Reina-Hex 2%) 1 applic DAILY@2000 TOPIC 05/27/19 20:00 06/26/19 19:59 06/15/19 19:39 Clonidine HCl (Catapres Tab) 0.1 mg Q4H PRN GT For High Blood Pressure 06/13/19 18:45 07/13/19 18:44 06/16/19 01:31 Daptomycin 500 mg/ Sodium Chloride 55 ml @ 100 mls/hr Q48H IV 05/29/19 13:00 06/23/19 23:59 06/14/19 13:04 Lansoprazole (Prevacid) 30 mg BID NG 06/06/19 18:00 07/06/19 17:59 06/15/19 18:18 Methylprednisolone Sodium Succinate (Solu-MEDROL) 20 mg DAILY IVP 06/16/19 09:00 07/04/19 20:59 Metoprolol Tartrate (Lopressor) 5 mg Q5MIN X 3 IVP 06/07/19 16:15 07/07/19 16:14 06/09/19 15:30 Norepinephrine Bitartrate 4 mg/ Dextrose 250 ml @ 0 mls/hr Q24H IV 05/29/19 19:20 06/28/19 19:19 05/30/19 22:45 Vitamin D (Vitamin D) 5,000 intlu DAILY GT 06/07/19 13:00 07/07/19 12:59 06/15/19 08:28 Last 24 Hour Vital Signs Date Time Temp Pulse Resp B/P (MAP) Pulse Ox O2 Delivery O2 Flow Rate FiO2 06/16/19 07:20 67 22 35 06/16/19 07:00 64 16 156/62 (93) 100 06/16/19 06:30 57 16 06/16/19 06:00 51 16 133/64 (87) 100 06/16/19 05:14 74 25 35 06/16/19 05:00 71 18 167/68 (101) 100 06/16/19 04:00 Mechanical Ventilator 06/16/19 04:00 49 06/16/19 04:00 98.4 49 13 121/55 (77) 99 06/16/19 04:00 35 06/16/19 03:05 80 24 35 06/16/19 03:00 55 13 125/60 (81) 97 06/16/19 02:43 52 15 129/74 (92) 97 06/16/19 02:00 72 16 164/76 (105) 99 06/16/19 01:31 175/78 06/16/19 01:00 78 16 175/77 (109) 100 06/16/19 00:59 83 27 35 06/16/19 00:00 98.5 82 16 166/75 (105) 99 06/16/19 00:00 35 06/16/19 00:00 Mechanical Ventilator 06/16/19 00:00 82 06/15/19 23:14 79 25 35 06/15/19 23:00 78 19 157/73 (101) 98 06/15/19 22:00 79 26 150/60 (90) 99 06/15/19 21:02 75 25 35 06/15/19 21:00 58 24 107/60 (76) 99 06/15/19 20:26 73 06/15/19 20:00 98.6 75 26 153/65 (94) 100 06/15/19 20:00 35 06/15/19 20:00 Mechanical Ventilator 06/15/19 19:26 74 29 35 06/15/19 19:20 145/61 06/15/19 19:00 76 28 145/61 (89) 99 06/15/19 18:00 82 22 154/66 (95) 100 06/15/19 17:17 82 31 40 06/15/19 17:00 84 17 145/73 (97) 100 06/15/19 16:00 84 06/15/19 16:00 98.2 81 24 162/74 (103) 100 06/15/19 16:00 Mechanical Ventilator 06/15/19 16:00 40 06/15/19 15:12 73 28 40 06/15/19 15:00 76 32 170/67 (101) 99 06/15/19 14:00 71 22 150/64 (92) 99 06/15/19 13:00 73 27 155/66 (95) 99 06/15/19 12:00 40 06/15/19 12:00 98.3 63 20 140/60 (86) 99 06/15/19 12:00 Mechanical Ventilator 06/15/19 12:00 74 06/15/19 11:15 68 35 40 06/15/19 11:00 52 16 125/51 (75) 99 06/15/19 10:00 71 25 156/68 (97) 99 06/15/19 09:13 100 06/15/19 09:00 76 31 154/74 (100) 97 06/15/19 08:58 98.5 06/15/19 08:56 86 32 40 06/15/19 08:00 40 06/15/19 08:00 98.6 76 25 149/65 (93) 99 06/15/19 08:00 Mechanical Ventilator 06/15/19 08:00 54 06/15/19 07:21 59 16 40 06/15/19 07:00 76 23 147/60 (89) 99 06/15/19 06:40 77 16 06/15/19 06:00 76 26 152/66 (94) 99 06/15/19 05:27 79 19 40 06/15/19 05:00 74 18 152/72 (98) 98 06/15/19 04:30 86 22 148/72 (97) 98 06/15/19 04:00 Mechanical Ventilator 06/15/19 04:00 98.5 92 25 176/82 (113) 96 06/15/19 04:00 40 06/15/19 03:48 90 06/15/19 03:04 69 18 40 06/15/19 03:00 73 17 146/69 (94) 95 06/15/19 02:00 86 32 144/74 (97) 99 06/15/19 01:44 61 16 40 06/15/19 01:30 90 32 159/68 (98) 97 06/15/19 01:00 98.5 92 34 164/98 (120) 96 06/15/19 00:00 40 06/15/19 00:00 87 26 152/86 (108) 98 06/15/19 00:00 Mechanical Ventilator 06/14/19 23:32 102 34 40 06/14/19 23:28 92 06/14/19 23:00 76 17 145/78 (100) 98 06/14/19 22:00 94 32 166/76 (106) 99 06/14/19 21:15 97 34 40 06/14/19 21:00 97 31 145/67 (93) 100 20 20:00 118 06/14/19 20:00 40 06/14/19 20:00 Mechanical Ventilator 06/14/19 20:00 97.9 118 27 137/92 (107) 98 06/14/19 19:20 151/113 06/14/19 19:00 94 31 40 06/14/19 19:00 103 28 148/89 (108) 100 06/14/19 18:00 99 33 132/77 (95) 100 06/14/19 17:21 89 35 40 06/14/19 17:00 40 06/14/19 17:00 90 28 134/70 (91) 99 20 16:00 Mechanical Ventilator 06/14/19 16:00 86 06/14/19 16:00 97.2 75 0 104/49 (67) 100 06/14/19 15:29 105 34 40 06/14/19 15:00 90 17 142/66 (91) 100 06/14/19 14:00 84 25 147/75 (99) 99 06/14/19 13:29 77 16 40 06/14/19 13:00 57 16 100/49 (66) 99 06/14/19 12:00 40 06/14/19 12:00 Mechanical Ventilator 06/14/19 12:00 97.4 69 27 130/61 (84) 100 06/14/19 11:26 53 16 40 06/14/19 11:17 89 06/14/19 11:00 75 12 128/68 (88) 100 06/14/19 10:00 57 1 131/63 (85) 100 06/14/19 09:24 58 16 40 06/14/19 09:00 91 17 168/103 (124) 99 06/14/19 08:34 174/89 06/14/19 08:00 Mechanical Ventilator 06/14/19 08:00 97.0 89 14 174/70 (104) 99 06/14/19 08:00 40 06/14/19 08:00 89 Intake and Output 06/15/19 06/16/19 19:00 07:00 Intake Total 600 ml 230 ml Output Total 480 ml 625 ml Balance 120 ml -395 ml Free Water 120 ml Tube Feeding 480 ml 200 ml Other 30 ml Output Urine Total 230 ml 375 ml Stool Total 250 ml 250 ml Labs Test 06/14/19 04:52 06/15/19 05:27 06/16/19 04:45 White Blood Count 9.1 K/UL (4.8-10.8) 8.7 K/UL (4.8-10.8) 8.4 K/UL (4.8-10.8) Red Blood Count 2.56 M/UL (4.70-6.10) 2.67 M/UL (4.70-6.10) 2.76 M/UL (4.70-6.10) Hemoglobin 7.8 G/DL (14.2-18.0) 8.2 G/DL (14.2-18.0) 8.6 G/DL (14.2-18.0) Hematocrit 22.7 % (42.0-52.0) 23.8 % (42.0-52.0) 24.8 % (42.0-52.0) Mean Corpuscular Volume 89 FL (80-99) 89 FL (80-99) 90 FL (80-99) Mean Corpuscular Hemoglobin 30.6 PG (27.0-31.0) 30.7 PG (27.0-31.0) 31.1 PG (27.0-31.0) Mean Corpuscular Hemoglobin Concent 34.5 G/DL (32.0-36.0) 34.5 G/DL (32.0-36.0) 34.5 G/DL (32.0-36.0) Red Cell Distribution Width 15.4 % (11.6-14.8) 14.7 % (11.6-14.8) 15.0 % (11.6-14.8) Platelet Count 121 K/UL (150-450) 110 K/UL (150-450) 117 K/UL (150-450) Mean Platelet Volume 5.6 FL (6.5-10.1) 5.8 FL (6.5-10.1) 5.9 FL (6.5-10.1) Neutrophils (%) (Auto) % (45.0-75.0) % (45.0-75.0) % (45.0-75.0) Lymphocytes (%) (Auto) % (20.0-45.0) % (20.0-45.0) % (20.0-45.0) Monocytes (%) (Auto) % (1.0-10.0) % (1.0-10.0) % (1.0-10.0) Eosinophils (%) (Auto) % (0.0-3.0) % (0.0-3.0) % (0.0-3.0) Basophils (%) (Auto) % (0.0-2.0) % (0.0-2.0) % (0.0-2.0) Differential Total Cells Counted 100 100 Neutrophils % (Manual) 95 % (45-75) 94 % (45-75) Lymphocytes % (Manual) 4 % (20-45) 5 % (20-45) Monocytes % (Manual) 1 % (1-10) 1 % (1-10) Eosinophils % (Manual) 0 % (0-3) 0 % (0-3) Basophils % (Manual) 0 % (0-2) 0 % (0-2) Band Neutrophils 0 % (0-8) 0 % (0-8) Platelet Estimate Decreased Decreased Platelet Morphology Normal Normal Anisocytosis 1+ 1+ Sodium Level 144 MMOL/L (136-145) 147 MMOL/L (136-145) 149 MMOL/L (136-145) Potassium Level 4.0 MMOL/L (3.5-5.1) 3.5 MMOL/L (3.5-5.1) 3.4 MMOL/L (3.5-5.1) Chloride Level 108 MMOL/L (98-107) 109 MMOL/L (98-107) 110 MMOL/L (98-107) Carbon Dioxide Level 28 MMOL/L (21-32) 31 MMOL/L (21-32) 32 MMOL/L (21-32) Anion Gap 8 mmol/L (5-15) 7 mmol/L (5-15) 7 mmol/L (5-15) Blood Urea Nitrogen 73 mg/dL (7-18) 53 mg/dL (7-18) 65 mg/dL (7-18) Creatinine 4.1 MG/DL (0.55-1.30) 3.1 MG/DL (0.55-1.30) 3.5 MG/DL (0.55-1.30) Estimat Glomerular Filtration Rate mL/min (>60) mL/min (>60) mL/min (>60) Glucose Level 156 MG/DL (74-106) 209 MG/DL (74-106) 124 MG/DL (74-106) Uric Acid 5.0 MG/DL (2.6-7.2) Calcium Level 7.5 MG/DL (8.5-10.1) 7.4 MG/DL (8.5-10.1) 7.7 MG/DL (8.5-10.1) Phosphorus Level 3.9 MG/DL (2.5-4.9) 2.8 MG/DL (2.5-4.9) 2.9 MG/DL (2.5-4.9) Magnesium Level 2.1 MG/DL (1.8-2.4) 2.0 MG/DL (1.8-2.4) 2.1 MG/DL (1.8-2.4) Total Bilirubin 0.4 MG/DL (0.2-1.0) 0.4 MG/DL (0.2-1.0) 0.4 MG/DL (0.2-1.0) Aspartate Amino Transf (AST/SGOT) 41 U/L (15-37) 45 U/L (15-37) 50 U/L (15-37) Alanine Aminotransferase (ALT/SGPT) 55 U/L (12-78) 59 U/L (12-78) 68 U/L (12-78) Alkaline Phosphatase 60 U/L (46-116) 71 U/L (46-116) 66 U/L (46-116) C-Reactive Protein, Quantitative 1.2 mg/dL (0.00-0.90) 0.6 mg/dL (0.00-0.90) Pro-B-Type Natriuretic Peptide 5652 pg/mL (0-125) 4936 pg/mL (0-125) Total Protein 4.8 G/DL (6.4-8.2) 4.6 G/DL (6.4-8.2) 4.6 G/DL (6.4-8.2) Albumin 1.7 G/DL (3.4-5.0) 1.6 G/DL (3.4-5.0) 1.7 G/DL (3.4-5.0) Globulin 3.1 g/dL 3.0 g/dL 2.9 g/dL Albumin/Globulin Ratio 0.5 (1.0-2.7) 0.5 (1.0-2.7) 0.6 (1.0-2.7) Prothrombin Time 12.6 SEC (9.30-11.50) Prothromb Time International Ratio 1.2 (0.9-1.1) Activated Partial Thromboplast Time 22 SEC (23-33) Random Vancomycin Level 8.3 ug/mL Height (Feet): 5 Height (Inches): 7.00 Weight (Pounds): 166 Objective PE: Vitals: reviewed General Appearance: NAD HEENT: normocephalic, atraumatic++ ngt Neck: non-tender, normal alignment Respiratory/Chest: VENT++ Cardiovascular/Chest: normal peripheral pulses, normal rate Abdomen: normal bowel sounds, soft, nontender Extremities: normal range of motion ++ right arm swelling Suleman Addison MD Jun 16, 2019 07:53
--- NOTE | 2019-06-16 09:11 | General Progress Note ---
Assessment/Plan Problem List: (1) Dysphagia ICD Codes: R13.10 - Dysphagia, unspecified SNOMED: 90727717, 121632622 (2) Anemia ICD Codes: D64.9 - Anemia, unspecified SNOMED: 139425983 (3) Hypothyroidism ICD Codes: E03.9 - Hypothyroidism, unspecified SNOMED: 40922760 (4) Thrombus ICD Codes: I82.90 - Acute embolism and thrombosis of unspecified vein SNOMED: 43772774, 16280818, 397174357, 786757247 (5) A-fib ICD Codes: I48.91 - Unspecified atrial fibrillation SNOMED: 52249126 Status: progressing, unchanged, deteriorating Assessment/Plan: intubated in ICU fu pulm fu labs abx per ID on HD poor prognosis s/p PEG GTF Subjective ROS Limited/Unobtainable: No Allergies: Coded Allergies: No Known Allergies (Unverified , 05/18/19) Subjective coded today Objective Last 24 Hour Vital Signs Date Time Temp Pulse Resp B/P (MAP) Pulse Ox O2 Delivery O2 Flow Rate FiO2 06/16/19 07:20 67 22 35 06/16/19 07:00 64 16 156/62 (93) 100 06/16/19 06:30 57 16 06/16/19 06:00 51 16 133/64 (87) 100 06/16/19 05:14 74 25 35 06/16/19 05:00 71 18 167/68 (101) 100 06/16/19 04:00 Mechanical Ventilator 06/16/19 04:00 49 06/16/19 04:00 98.4 49 13 121/55 (77) 99 06/16/19 04:00 35 06/16/19 03:05 80 24 35 06/16/19 03:00 55 13 125/60 (81) 97 06/16/19 02:43 52 15 129/74 (92) 97 06/16/19 02:00 72 16 164/76 (105) 99 06/16/19 01:31 175/78 06/16/19 01:00 78 16 175/77 (109) 100 06/16/19 00:59 83 27 35 06/16/19 00:00 98.5 82 16 166/75 (105) 99 06/16/19 00:00 35 06/16/19 00:00 Mechanical Ventilator 06/16/19 00:00 82 06/15/19 23:14 79 25 35 06/15/19 23:00 78 19 157/73 (101) 98 06/15/19 22:00 79 26 150/60 (90) 99 06/15/19 21:02 75 25 35 06/15/19 21:00 58 24 107/60 (76) 99 06/15/19 20:26 73 06/15/19 20:00 98.6 75 26 153/65 (94) 100 06/15/19 20:00 35 06/15/19 20:00 Mechanical Ventilator 06/15/19 19:26 74 29 35 06/15/19 19:20 145/61 06/15/19 19:00 76 28 145/61 (89) 99 06/15/19 18:00 82 22 154/66 (95) 100 06/15/19 17:17 82 31 40 06/15/19 17:00 84 17 145/73 (97) 100 06/15/19 16:00 84 06/15/19 16:00 98.2 81 24 162/74 (103) 100 06/15/19 16:00 Mechanical Ventilator 06/15/19 16:00 40 06/15/19 15:12 73 28 40 06/15/19 15:00 76 32 170/67 (101) 99 06/15/19 14:00 71 22 150/64 (92) 99 06/15/19 13:00 73 27 155/66 (95) 99 06/15/19 12:00 40 06/15/19 12:00 98.3 63 20 140/60 (86) 99 06/15/19 12:00 Mechanical Ventilator 06/15/19 12:00 74 06/15/19 11:15 68 35 40 06/15/19 11:00 52 16 125/51 (75) 99 06/15/19 10:00 71 25 156/68 (97) 99 06/15/19 09:13 100 Intake and Output 06/15/19 06/16/19 19:00 07:00 Intake Total 600 ml 230 ml Output Total 480 ml 625 ml Balance 120 ml -395 ml Free Water 120 ml Tube Feeding 480 ml 200 ml Other 30 ml Output Urine Total 230 ml 375 ml Stool Total 250 ml 250 ml Laboratory Tests 06/16/19 04:45: White Blood Count 8.4, Red Blood Count 2.76L, Hemoglobin 8.6L, Hematocrit 24.8L , Mean Corpuscular Volume 90, Mean Corpuscular Hemoglobin 31.1H, Mean Corpuscular Hemoglobin Concent 34.5, Red Cell Distribution Width 15.0H, Platelet Count 117L, Mean Platelet Volume 5.9L, Neutrophils (%) (Auto) , Lymphocytes (%) (Auto) , Monocytes (%) (Auto) , Eosinophils (%) (Auto) , Basophils (%) (Auto) , Prothrombin Time 12.6H, Prothromb Time International Ratio 1.2H, Activated Partial Thromboplast Time 22L, Sodium Level 149H, Potassium Level 3.4L, Chloride Level 110H, Carbon Dioxide Level 32, Anion Gap 7 , Blood Urea Nitrogen 65H, Creatinine 3.5H, Estimat Glomerular Filtration Rate , Glucose Level 124H, Calcium Level 7.7L, Phosphorus Level 2.9, Magnesium Level 2.1, Total Bilirubin 0.4, Aspartate Amino Transf (AST/SGOT) 50H, Alanine Aminotransferase (ALT/SGPT) 68, Alkaline Phosphatase 66, C-Reactive Protein, Quantitative 0.6, Pro-B-Type Natriuretic Peptide 4936H, Total Protein 4.6L, Albumin 1.7L, Globulin 2.9, Albumin/Globulin Ratio 0.6L, Random Vancomycin Level 8.3 Height (Feet): 5 Height (Inches): 7.00 Weight (Pounds): 166 General Appearance: lethargic EENT: normal ENT inspection Neck: supple Cardiovascular: normal rate Respiratory/Chest: decreased breath sounds Abdomen: normal bowel sounds, non tender, soft Extremities: non-tender Valentino Lino MD Jun 16, 2019 09:11
[2019-06-16] MEDS ORDERED: Sodium Chloride for KCL Premix x 2hrs IV SCH (09:45)
[2019-06-16] MEDS: Solu-MEDROL 40mg Inj IVP SCH (09:59)
[2019-06-16] MEDS: Amiodarone 200mg tab ORAL SCH (10:00)
[2019-06-16] MEDS: Vitamin D 1000 IU Tab GT SCH (10:00)
--- NOTE | 2019-06-16 10:16 | Infectious Diseases Prog Note ---
Assessment/Plan Assessment/Plan 84 yo male with PMHx of HTN who was sent to the ED on 05/18/19 from his [facility] for possible picc line infection. Swelling around PICC line Minimal to no erythema and no purulent drainage Not likely to be infected Blood Cx 05/18/19 - NGTD PICC Tip Cx 05/18/19 - NGTD PICC line removed 05/18/19 Leukocytosis, mild recurrent (on steroids)- resolved No fever OM - Let foot On Vancomycin at nursing End date early May PNA Acute respiratory failure s/p intubation 05/27 06/10 CXR: Bilateral upper lobe interstitial opacities and volume loss are unchanged. Diffuse more acute appearing parenchymal disease throughout the left mid and lower lung are unchanged. CXR - Some LLL Atelectasis vs PNA, Nodules CT 05/20/19 - Bilateral upper lobe infiltrates worse on the right. Consider pneumonia. Bilateral pleural effusions moderate in size Sp Cx Marily HTN PLAN - Continue Daptomycin for OM until 06/23/19 weekly CPK -06/10 SP Zosyn #15 - 05/28/19 SP Vancomycin per pharmacy - Stopped for increasing Cr - 05/27/19 SP Levofloxacin #5 - Monitor CBC and Temps -ETT/ICU care -aspiration precautions -wound care per hospital protocol -Trach planned for today Thank you for this consult. [facility] will continue to follow the patient with you during this hospitalization. Subjective Allergies: Coded Allergies: No Known Allergies (Unverified , 05/18/19) Subjective afebrile no leukocytosis Objective Vital Signs Last 24 Hour Vital Signs Date Time Temp Pulse Resp B/P (MAP) Pulse Ox O2 Delivery O2 Flow Rate FiO2 06/16/19 09:16 70 16 35 35 06/16/19 07:20 67 22 35 06/16/19 07:00 64 16 156/62 (93) 100 06/16/19 06:30 57 16 06/16/19 06:00 51 16 133/64 (87) 100 06/16/19 05:14 74 25 35 06/16/19 05:00 71 18 167/68 (101) 100 06/16/19 04:00 Mechanical Ventilator 06/16/19 04:00 49 06/16/19 04:00 98.4 49 13 121/55 (77) 99 06/16/19 04:00 35 06/16/19 03:05 80 24 35 06/16/19 03:00 55 13 125/60 (81) 97 06/16/19 02:43 52 15 129/74 (92) 97 06/16/19 02:00 72 16 164/76 (105) 99 06/16/19 01:31 175/78 06/16/19 01:00 78 16 175/77 (109) 100 06/16/19 00:59 83 27 35 06/16/19 00:00 98.5 82 16 166/75 (105) 99 06/16/19 00:00 35 06/16/19 00:00 Mechanical Ventilator 06/16/19 00:00 82 06/15/19 23:14 79 25 35 06/15/19 23:00 78 19 157/73 (101) 98 06/15/19 22:00 79 26 150/60 (90) 99 06/15/19 21:02 75 25 35 06/15/19 21:00 58 24 107/60 (76) 99 06/15/19 20:26 73 06/15/19 20:00 98.6 75 26 153/65 (94) 100 06/15/19 20:00 35 06/15/19 20:00 Mechanical Ventilator 06/15/19 19:26 74 29 35 06/15/19 19:20 145/61 06/15/19 19:00 76 28 145/61 (89) 99 06/15/19 18:00 82 22 154/66 (95) 100 06/15/19 17:17 82 31 40 06/15/19 17:00 84 17 145/73 (97) 100 06/15/19 16:00 84 06/15/19 16:00 98.2 81 24 162/74 (103) 100 06/15/19 16:00 Mechanical Ventilator 06/15/19 16:00 40 06/15/19 15:12 73 28 40 06/15/19 15:00 76 32 170/67 (101) 99 06/15/19 14:00 71 22 150/64 (92) 99 06/15/19 13:00 73 27 155/66 (95) 99 06/15/19 12:00 40 06/15/19 12:00 98.3 63 20 140/60 (86) 99 1/19/20 12:00 Mechanical Ventilator 06/15/19 12:00 74 06/15/19 11:15 68 35 40 06/15/19 11:00 52 16 125/51 (75) 99 Height (Feet): 5 Height (Inches): 7.00 Weight (Pounds): 166 Objective General Appearance: no apparent distress, lethargic Cardiovascular: normal rate Respiratory/Chest: decreased breath sounds Abdomen: distended Laboratory Tests Test 06/16/19 04:45 White Blood Count 8.4 K/UL (4.8-10.8) Red Blood Count 2.76 M/UL (4.70-6.10) L Hemoglobin 8.6 G/DL (14.2-18.0) L Hematocrit 24.8 % (42.0-52.0) L Mean Corpuscular Volume 90 FL (80-99) Mean Corpuscular Hemoglobin 31.1 PG (27.0-31.0) H Mean Corpuscular Hemoglobin Concent 34.5 G/DL (32.0-36.0) Red Cell Distribution Width 15.0 % (11.6-14.8) H Platelet Count 117 K/UL (150-450) L Mean Platelet Volume 5.9 FL (6.5-10.1) L Neutrophils (%) (Auto) % (45.0-75.0) Lymphocytes (%) (Auto) % (20.0-45.0) Monocytes (%) (Auto) % (1.0-10.0) Eosinophils (%) (Auto) % (0.0-3.0) Basophils (%) (Auto) % (0.0-2.0) Prothrombin Time 12.6 SEC (9.30-11.50) H Prothromb Time International Ratio 1.2 (0.9-1.1) H Activated Partial Thromboplast Time 22 SEC (23-33) L Sodium Level 149 MMOL/L (136-145) H Potassium Level 3.4 MMOL/L (3.5-5.1) L Chloride Level 110 MMOL/L (98-107) H Carbon Dioxide Level 32 MMOL/L (21-32) Anion Gap 7 mmol/L (5-15) Blood Urea Nitrogen 65 mg/dL (7-18) H Creatinine 3.5 MG/DL (0.55-1.30) H Estimat Glomerular Filtration Rate mL/min (>60) Glucose Level 124 MG/DL (74-106) H Calcium Level 7.7 MG/DL (8.5-10.1) L Phosphorus Level 2.9 MG/DL (2.5-4.9) Magnesium Level 2.1 MG/DL (1.8-2.4) Total Bilirubin 0.4 MG/DL (0.2-1.0) Aspartate Amino Transf (AST/SGOT) 50 U/L (15-37) H Alanine Aminotransferase (ALT/SGPT) 68 U/L (12-78) Alkaline Phosphatase 66 U/L (46-116) C-Reactive Protein, Quantitative 0.6 mg/dL (0.00-0.90) Pro-B-Type Natriuretic Peptide 4936 pg/mL (0-125) H Total Protein 4.6 G/DL (6.4-8.2) L Albumin 1.7 G/DL (3.4-5.0) L Globulin 2.9 g/dL Albumin/Globulin Ratio 0.6 (1.0-2.7) L Random Vancomycin Level 8.3 ug/mL Current Medications Medications (Trade) Dose Ordered Sig/Phillip Route PRN Reason Start Time Stop Time Status Last Admin Dose Admin Acetaminophen (Tylenol) 500 mg Q4H PRN GT Mild Pain/Temp > 100.5 05/27/19 07:45 06/19/19 20:29 06/15/19 08:28 Amiodarone HCl (Cordarone) 200 mg DAILY ORAL 06/07/19 16:15 07/07/19 16:14 06/16/19 10:00 Chlorhexidine Gluconate (Reina-Hex 2%) 1 applic DAILY@1999 TOPIC 05/27/19 20:00 06/26/19 19:59 06/15/19 19:39 Clonidine HCl (Catapres Tab) 0.1 mg Q4H PRN GT For High Blood Pressure 06/13/19 18:45 07/13/19 18:44 06/16/19 01:31 Daptomycin 500 mg/ Sodium Chloride 55 ml @ 100 mls/hr Q48H IV 05/29/19 13:00 06/23/19 23:59 06/14/19 13:04 Lansoprazole (Prevacid) 30 mg BID NG 06/06/19 18:00 2/9/20 17:59 06/16/19 10:00 Methylprednisolone Sodium Succinate (Solu-MEDROL) 20 mg DAILY IVP 06/16/19 09:00 07/04/19 20:59 06/16/19 09:59 Metoprolol Tartrate (Lopressor) 5 mg Q5MIN X 3 IVP 06/07/19 16:15 07/07/19 16:14 06/09/19 15:30 Norepinephrine Bitartrate 4 mg/ Dextrose 250 ml @ 0 mls/hr Q24H IV 05/29/19 19:20 06/28/19 19:19 05/30/19 22:45 Potassium Chloride 100 ml @ 100 mls/hr Q1HR IVPB 06/16/19 10:00 06/16/19 11:59 Sodium Chloride 200 ml @ 100 mls/hr Q2H IV 06/16/19 09:45 06/16/19 11:44 Vitamin D (Vitamin D) 5,000 intlu DAILY GT 06/07/19 13:00 07/07/19 12:59 06/16/19 10:00 Latha Lowe M.D. Jun 16, 2019 10:16
--- NOTE | 2019-06-16 10:58 | Pulmonology Progress Note ---
Assessment/Plan Assessment/Plan IMPRESSION AND PLAN: 1. Pneumonia. Bilateral upper lobe. 2. Cellulitis. 3. History of COPD. 4. Hypertension. 5. Afib with RVR; rate controlled 6. Respiratory failure; on vent; unable to wean DISCUSSION: 1. Intubated; Needs trach; notified Dr Logan 2. Agree with present management and care. 3. Continue medications and HHN with atrovent only Arsen Whittaker M.D. Subjective Interval Events: None new; weaning Constitutional: Reports: no symptoms HEENT: Repors: no symptoms Respiratory: Reports: no symptoms Cardiovascular: Reports: no symptoms Gastrointestinal/Abdominal: Reports: no symptoms Allergies: Coded Allergies: No Known Allergies (Unverified , 05/18/19) Objective Last 24 Hour Vital Signs Date Time Temp Pulse Resp B/P (MAP) Pulse Ox O2 Delivery O2 Flow Rate FiO2 06/16/19 09:16 70 16 35 35 06/16/19 07:20 67 22 35 06/16/19 07:00 64 16 156/62 (93) 100 06/16/19 06:30 57 16 06/16/19 06:00 51 16 133/64 (87) 100 06/16/19 05:14 74 25 35 06/16/19 05:00 71 18 167/68 (101) 100 06/16/19 04:00 Mechanical Ventilator 06/16/19 04:00 49 06/16/19 04:00 98.4 49 13 121/55 (77) 99 06/16/19 04:00 35 06/16/19 03:05 80 24 35 06/16/19 03:00 55 13 125/60 (81) 97 06/16/19 02:43 52 15 129/74 (92) 97 06/16/19 02:00 72 16 164/76 (105) 99 06/16/19 01:31 175/78 06/16/19 01:00 78 16 175/77 (109) 100 06/16/19 00:59 83 27 35 06/16/19 00:00 98.5 82 16 166/75 (105) 99 06/16/19 00:00 35 06/16/19 00:00 Mechanical Ventilator 06/16/19 00:00 82 06/15/19 23:14 79 25 35 06/15/19 23:00 78 19 157/73 (101) 98 06/15/19 22:00 79 26 150/60 (90) 99 06/15/19 21:02 75 25 35 06/15/19 21:00 58 24 107/60 (76) 99 06/15/19 20:26 73 06/15/19 20:00 98.6 75 26 153/65 (94) 100 06/15/19 20:00 35 06/15/19 20:00 Mechanical Ventilator 06/15/19 19:26 74 29 35 06/15/19 19:20 145/61 06/15/19 19:00 76 28 145/61 (89) 99 06/15/19 18:00 82 22 154/66 (95) 100 06/15/19 17:17 82 31 40 06/15/19 17:00 84 17 145/73 (97) 100 06/15/19 16:00 84 06/15/19 16:00 98.2 81 24 162/74 (103) 100 06/15/19 16:00 Mechanical Ventilator 06/15/19 16:00 40 06/15/19 15:12 73 28 40 06/15/19 15:00 76 32 170/67 (101) 99 06/15/19 14:00 71 22 150/64 (92) 99 06/15/19 13:00 73 27 155/66 (95) 99 06/15/19 12:00 40 06/15/19 12:00 98.3 63 20 140/60 (86) 99 06/15/19 12:00 Mechanical Ventilator 06/15/19 12:00 74 06/15/19 11:15 68 35 40 06/15/19 11:00 52 16 125/51 (75) 99 Intake and Output 06/15/19 06/16/19 19:00 07:00 Intake Total 600 ml 230 ml Output Total 480 ml 625 ml Balance 120 ml -395 ml Free Water 120 ml Tube Feeding 480 ml 200 ml Other 30 ml Output Urine Total 230 ml 375 ml Stool Total 250 ml 250 ml General Appearance: no acute distress HEENT: normocephalic Respiratory/Chest: chest wall non-tender, decreased breath sounds Cardiovascular: normal peripheral pulses Abdomen: normal bowel sounds Laboratory Tests 06/16/19 04:45: White Blood Count 8.4, Red Blood Count 2.76L, Hemoglobin 8.6L, Hematocrit 24.8L , Mean Corpuscular Volume 90, Mean Corpuscular Hemoglobin 31.1H, Mean Corpuscular Hemoglobin Concent 34.5, Red Cell Distribution Width 15.0H, Platelet Count 117L, Mean Platelet Volume 5.9L, Neutrophils (%) (Auto) , Lymphocytes (%) (Auto) , Monocytes (%) (Auto) , Eosinophils (%) (Auto) , Basophils (%) (Auto) , Prothrombin Time 12.6H, Prothromb Time International Ratio 1.2H, Activated Partial Thromboplast Time 22L, Sodium Level 149H, Potassium Level 3.4L, Chloride Level 110H, Carbon Dioxide Level 32, Anion Gap 7 , Blood Urea Nitrogen 65H, Creatinine 3.5H, Estimat Glomerular Filtration Rate , Glucose Level 124H, Calcium Level 7.7L, Phosphorus Level 2.9, Magnesium Level 2.1, Total Bilirubin 0.4, Aspartate Amino Transf (AST/SGOT) 50H, Alanine Aminotransferase (ALT/SGPT) 68, Alkaline Phosphatase 66, C-Reactive Protein, Quantitative 0.6, Pro-B-Type Natriuretic Peptide 4936H, Total Protein 4.6L, Albumin 1.7L, Globulin 2.9, Albumin/Globulin Ratio 0.6L, Random Vancomycin Level 8.3 Current Medications Medications (Trade) Dose Ordered Sig/Phillip Route PRN Reason Start Time Stop Time Status Last Admin Dose Admin Acetaminophen (Tylenol) 500 mg Q4H PRN GT Mild Pain/Temp > 100.5 05/27/19 07:45 06/19/19 20:29 06/15/19 08:28 Amiodarone HCl (Cordarone) 200 mg DAILY ORAL 06/07/19 16:15 07/07/19 16:14 06/16/19 10:00 Chlorhexidine Gluconate (Reina-Hex 2%) 1 applic DAILY@1999 TOPIC 05/27/19 20:00 06/26/19 19:59 06/15/19 19:39 Clonidine HCl (Catapres Tab) 0.1 mg Q4H PRN GT For High Blood Pressure 06/13/19 18:45 07/13/19 18:44 06/16/19 01:31 Daptomycin 500 mg/ Sodium Chloride 55 ml @ 100 mls/hr Q48H IV 05/29/19 13:00 06/23/19 23:59 06/14/19 13:04 Lansoprazole (Prevacid) 30 mg BID NG 06/06/19 18:00 07/06/19 17:59 06/16/19 10:00 Methylprednisolone Sodium Succinate (Solu-MEDROL) 20 mg DAILY IVP 06/16/19 09:00 07/04/19 20:59 06/16/19 09:59 Metoprolol Tartrate (Lopressor) 5 mg Q5MIN X 3 IVP 06/07/19 16:15 07/07/19 16:14 06/09/19 15:30 Norepinephrine Bitartrate 4 mg/ Dextrose 250 ml @ 0 mls/hr Q24H IV 05/29/19 19:20 06/28/19 19:19 05/30/19 22:45 Potassium Chloride 100 ml @ 100 mls/hr Q1HR IVPB 06/16/19 10:00 06/16/19 11:59 06/16/19 10:23 Sodium Chloride 200 ml @ 100 mls/hr Q2H IV 06/16/19 09:45 06/16/19 11:44 Vitamin D (Vitamin D) 5,000 intlu DAILY GT 06/07/19 13:00 07/07/19 12:59 06/16/19 10:00 Arsen Whittaker MD Jun 16, 2019 10:58
--- NOTE | 2019-06-16 11:21 | Surgery Progress Note ---
Surgery Progress Note Subjective Additional Comments still not able to wean from vent safely given code status and prior wishes as noted with full code medically necessary to proceed with tracheostomy given care plan will proceed today Objective Last 24 Hour Vital Signs Date Time Temp Pulse Resp B/P (MAP) Pulse Ox O2 Delivery O2 Flow Rate FiO2 06/16/19 09:16 70 16 35 35 06/16/19 07:20 67 22 35 06/16/19 07:00 64 16 156/62 (93) 100 06/16/19 06:30 57 16 06/16/19 06:00 51 16 133/64 (87) 100 06/16/19 05:14 74 25 35 06/16/19 05:00 71 18 167/68 (101) 100 06/16/19 04:00 Mechanical Ventilator 06/16/19 04:00 49 06/16/19 04:00 98.4 49 13 121/55 (77) 99 06/16/19 04:00 35 06/16/19 03:05 80 24 35 06/16/19 03:00 55 13 125/60 (81) 97 06/16/19 02:43 52 15 129/74 (92) 97 06/16/19 02:00 72 16 164/76 (105) 99 06/16/19 01:31 175/78 06/16/19 01:00 78 16 175/77 (109) 100 06/16/19 00:59 83 27 35 06/16/19 00:00 98.5 82 16 166/75 (105) 99 06/16/19 00:00 35 06/16/19 00:00 Mechanical Ventilator 06/16/19 00:00 82 06/15/19 23:14 79 25 35 06/15/19 23:00 78 19 157/73 (101) 98 06/15/19 22:00 79 26 150/60 (90) 99 06/15/19 21:02 75 25 35 06/15/19 21:00 58 24 107/60 (76) 99 06/15/19 20:26 73 06/15/19 20:00 98.6 75 26 153/65 (94) 100 06/15/19 20:00 35 06/15/19 20:00 Mechanical Ventilator 06/15/19 19:26 74 29 35 06/15/19 19:20 145/61 06/15/19 19:00 76 28 145/61 (89) 99 06/15/19 18:00 82 22 154/66 (95) 100 06/15/19 17:17 82 31 40 06/15/19 17:00 84 17 145/73 (97) 100 06/15/19 16:00 84 06/15/19 16:00 98.2 81 24 162/74 (103) 100 06/15/19 16:00 Mechanical Ventilator 06/15/19 16:00 40 06/15/19 15:12 73 28 40 06/15/19 15:00 76 32 170/67 (101) 99 06/15/19 14:00 71 22 150/64 (92) 99 06/15/19 13:00 73 27 155/66 (95) 99 06/15/19 12:00 40 06/15/19 12:00 98.3 63 20 140/60 (86) 99 06/15/19 12:00 Mechanical Ventilator 06/15/19 12:00 74 I&O Intake and Output 06/15/19 06/16/19 19:00 07:00 Intake Total 600 ml 230 ml Output Total 480 ml 625 ml Balance 120 ml -395 ml Free Water 120 ml Tube Feeding 480 ml 200 ml Other 30 ml Output Urine Total 230 ml 375 ml Stool Total 250 ml 250 ml Dressing: other Wound: other Drains: other Cardiovascular: RSR Respiratory: decreased breath sounds Abdomen: soft, present bowel sounds Extremities: no cyanosis Laboratory Tests Test 06/16/19 04:45 White Blood Count 8.4 K/UL (4.8-10.8) Red Blood Count 2.76 M/UL (4.70-6.10) L Hemoglobin 8.6 G/DL (14.2-18.0) L Hematocrit 24.8 % (42.0-52.0) L Mean Corpuscular Volume 90 FL (80-99) Mean Corpuscular Hemoglobin 31.1 PG (27.0-31.0) H Mean Corpuscular Hemoglobin Concent 34.5 G/DL (32.0-36.0) Red Cell Distribution Width 15.0 % (11.6-14.8) H Platelet Count 117 K/UL (150-450) L Mean Platelet Volume 5.9 FL (6.5-10.1) L Neutrophils (%) (Auto) % (45.0-75.0) Lymphocytes (%) (Auto) % (20.0-45.0) Monocytes (%) (Auto) % (1.0-10.0) Eosinophils (%) (Auto) % (0.0-3.0) Basophils (%) (Auto) % (0.0-2.0) Prothrombin Time 12.6 SEC (9.30-11.50) H Prothromb Time International Ratio 1.2 (0.9-1.1) H Activated Partial Thromboplast Time 22 SEC (23-33) L Sodium Level 149 MMOL/L (136-145) H Potassium Level 3.4 MMOL/L (3.5-5.1) L Chloride Level 110 MMOL/L (98-107) H Carbon Dioxide Level 32 MMOL/L (21-32) Anion Gap 7 mmol/L (5-15) Blood Urea Nitrogen 65 mg/dL (7-18) H Creatinine 3.5 MG/DL (0.55-1.30) H Estimat Glomerular Filtration Rate mL/min (>60) Glucose Level 124 MG/DL (74-106) H Calcium Level 7.7 MG/DL (8.5-10.1) L Phosphorus Level 2.9 MG/DL (2.5-4.9) Magnesium Level 2.1 MG/DL (1.8-2.4) Total Bilirubin 0.4 MG/DL (0.2-1.0) Aspartate Amino Transf (AST/SGOT) 50 U/L (15-37) H Alanine Aminotransferase (ALT/SGPT) 68 U/L (12-78) Alkaline Phosphatase 66 U/L (46-116) C-Reactive Protein, Quantitative 0.6 mg/dL (0.00-0.90) Pro-B-Type Natriuretic Peptide 4936 pg/mL (0-125) H Total Protein 4.6 G/DL (6.4-8.2) L Albumin 1.7 G/DL (3.4-5.0) L Globulin 2.9 g/dL Albumin/Globulin Ratio 0.6 (1.0-2.7) L Random Vancomycin Level 8.3 ug/mL Plan Problems: (1) Cellulitis of upper extremity Assessment & Plan: 84M with RUE cellulitis, edema, erythema. no drainage. has RUE picc line recommend removal of picc. removed at bedside by myself on 05/18. pressure held, hemostasis noted, dressings applied. cath tip sent for cultures DVT duplex studies with acute thrombus IV Abx as per ID UA pending Cx results keep RUE elevated on pillows okay for diet AM labs anticoagulation off load pressure for dti noted cellulitis and edema improved deteriorated intubated on vent support likely respiratory insufficiency labs ordered wean vent okay for tube feeds via ng - cont as tolerated wean vent am labs HD as per renal now with right IJ Temp HD cath will follow with recs thank you (2) Cellulitis Assessment & Plan: Pt presented on admission with reabsorbing blister lateral R heel. Base of injury indurated with delineated margins(L)4cm x (W)3cm.Non- blanching erythema Sacrum ,R and L buttocks(L)8.5cm x (W)9cm, with a partial thickness pressure injury noted to L buttocks. Base of wound is moist and viable (L)2.3cm x (W)3cm. Area around wound tender when minimally palpated. Pt noted to be wearing splint L foot. Per pt he fractured foot a few weeks ago. Splint removed to assess skin integrity. L heel and malleoli are pink and blanchable.Cavilon Skin Barrier applied to L heel and malleoli and each area covered with Optifoam drsg. Splint reapplied. No other skin concerns noted. unchanged Partial Thickness pressure injury L buttocks resolved . Non-blanching erythema without induration noted to Sacrum,R and L buttocks. (L)8cm x (W)9cm. Scrotum is grossly enlarged and is erythematous and macerated. Penile shaft is grossly swollen .Pt noted to have a partially opened blood blister with 25% biofilm at base of shaft of penis.(L)4.5cm x (W)2.5cm. Bilat groin, medial /posterior aspects of both upper thighs are erythematous and denuded. R lower ext edematous. R heel blister reabsorbed. Non--blanching erythema without induration noted to R heel. Splint removed from L foot. Optifoam drsgs removed from malleoli and heel. Pt noted to have developed several DTPI's despite having Optifoam drsgs. DTPI noted to L achilles . Base of wound is purple and fluctuant (L)0.6cm x (W) 2.7cm.DTPI noted to medial L malleolus(L)0.2cm x (W)0.3cm.Base of wound is purple with marginal erythema. DTPI noted to dorsal L foot. Base of wound is purple with marginal erythema along borders (L)0.9cm x (W)0.5cm.L heel is boggy with non-blanching erythema. Cavilon Skin Barrier applied to affected areas on L foot . Dorsal L foot ,Achilles .R and L malleoli and L heel each covered with Optifoam drsg. Non-blanching erythema without induration noted to lateral L tibia. At plantar aspect of L hallux small dry eschar noted. No erythema or fluctuance periwound. (L)0.5cm x (W)0.4cm. IN addition to Optifoam drsgs placed over each bony prominence of L foot ABD pads placed over dorsal and plantar L foot , Abd pads aligned along L tibia. Splint realigned to L foot Wrapped loosely with Kerlix then wrapped loosely with [place] wrap. L foot floated off mattress with pillow. Tx.Plan: Apply Cavilon to Dorsal L foot. L achilles .Medial/Lateral Malleoli L Foot and L heel. Cover each site with Optifoam drsg. Change every 7 days and prn. Apply Cavilon Plantar L foot. Cover with Optifoam drsg. Change every 7 days and prn. Apply Moisture Barrier Paste to sacrum. Cover with Optifoam drsg. Changee very 7 days and prn. Apply Cavilon Skin Barrier to Both heels. Cover each heel with Optifoam drsg. Change every 7 days and prn. Cleanse wound Shaft of penis with saline. Apply Moisture Barrier Paste Daily and prn. Apply Moisture Barrier Paste to Bilat groin, Scrotum, Medial/Posterior aspects of both upper thighs with each perineal care. Reposition at least every 2hours or as tolerated. Off-load heels with pillows. APM/LA L Mattress overlay. (3) SOB (shortness of breath) Assessment & Plan: Unfortunately patient has been in the intensive care unit on ventilatory support unable to be weaned from vent. Will likely require prolonged ventilatory support. Respiratory insufficiency not improving. Patient is full code as per identifiable documentation in patient's chart and medical record. No family or next kin available. Given patient's wishes current condition and course of a care tracheostomy is indicated recommended. Tracheostomy would be medically necessary as a next step in patient's care plan. We will proceed with tracheostomy tomorrow discussed with patient's medical multidisciplinary team Bennett Logan Jun 16, 2019 11:21
[2019-06-16] MEDS ORDERED: Lidocaine 1% 10mg/ml/Epi 0.005mg/ml 30ml vial INJ ONE (13:36)
--- NOTE | 2019-06-16 13:52 | Diagnostic Imaging Report ---
Indication: Dyspnea Comparison: 06/10/2019 A single view chest radiograph was obtained. Findings: Patchy bilateral streaky densities noted in the lung apices likely scarring. Pulmonary vascular congestion suspected as well. Heart size remains normal. Tubes and lines are satisfactory and unchanged. NG tube has been removed. Gastrostomy noted. IMPRESSION: No significant change from the prior examination. Suspected mild CHF.
[2019-06-16] MEDS ORDERED: Rocuronium Bromide 50mg/5ml Inj IV ONE (13:55)
[2019-06-16] MEDS ORDERED: LR 1000ml ONE (14:00)
[2019-06-16] MEDS ORDERED: Sterile Water Irrig 1000ml IRRIG ONE (14:00)
[2019-06-16] MEDS ORDERED: NS Irrig 1000ml ONE (14:00)
--- NOTE | 2019-06-16 14:01 | Nephrology Progress Note ---
Assessment/Plan Problem List: (1) Renal failure (ARF), acute on chronic Assessment: Cr rising (2) Cellulitis of upper extremity (3) A-fib (4) Pneumonia (5) UTI (urinary tract infection) (6) Anemia Assessment: worsened (7) Hypothyroidism Assessment - KIMO on CKD - Urinary tract infection. - Anemia- - Dehydration. - Cellulitis of Upper extremity - HTN Plan taper steroids as possible dialysis 06/14 next ? 06/17 Trach 06/16 ! DC Midodrine DC IV IV Calcium and PO Vit D ad needed Transfuse one unit PRBcs in ICU- intubated BP meds and Mind altering meds discontinued On midodrine check vanco levels - hold vanco doses previously: Per cardiology Anemia kumari- Avoid Nephrotoxics Per ID Allow CHANDA inhibitor to continue as long as renal function does not worsen. PICC line has been removed. CXR: Increased right pleural effusion and similar left pleural effusion. Increased interstitial and hazy opacities throughout the lungs. Subjective ROS Limited/Unobtainable: Yes Objective Objective Last 24 Hour Vital Signs Date Time Temp Pulse Resp B/P (MAP) Pulse Ox O2 Delivery O2 Flow Rate FiO2 06/16/19 13:22 49 16 35 06/16/19 13:00 67 16 124/46 (72) 99 06/16/19 12:00 69 06/16/19 12:00 99.0 91 16 138/66 (90) 99 06/16/19 11:28 76 27 35 06/16/19 11:27 100 06/16/19 11:25 85 27 35 06/16/19 11:00 91 16 138/74 (95) 99 06/16/19 10:00 78 16 147/72 (97) 99 06/16/19 09:16 70 16 35 35 06/16/19 09:00 73 16 133/57 (82) 100 06/16/19 08:00 72 16 164/67 (99) 100 06/16/19 08:00 63 06/16/19 07:20 67 22 35 06/16/19 07:00 64 16 156/62 (93) 100 06/16/19 06:30 57 16 06/16/19 06:00 51 16 133/64 (87) 100 06/16/19 05:14 74 25 35 06/16/19 05:00 71 18 167/68 (101) 100 06/16/19 04:00 Mechanical Ventilator 06/16/19 04:00 49 06/16/19 04:00 98.4 49 13 121/55 (77) 99 06/16/19 04:00 35 06/16/19 03:05 80 24 35 06/16/19 03:00 55 13 125/60 (81) 97 06/16/19 02:43 52 15 129/74 (92) 97 06/16/19 02:00 72 16 164/76 (105) 99 06/16/19 01:31 175/78 06/16/19 01:00 78 16 175/77 (109) 100 06/16/19 00:59 83 27 35 06/16/19 00:00 98.5 82 16 166/75 (105) 99 06/16/19 00:00 35 06/16/19 00:00 Mechanical Ventilator 06/16/19 00:00 82 06/15/19 23:14 79 25 35 06/15/19 23:00 78 19 157/73 (101) 98 06/15/19 22:00 79 26 150/60 (90) 99 06/15/19 21:02 75 25 35 06/15/19 21:00 58 24 107/60 (76) 99 06/15/19 20:26 73 06/15/19 20:00 98.6 75 26 153/65 (94) 100 06/15/19 20:00 35 06/15/19 20:00 Mechanical Ventilator 06/15/19 19:26 74 29 35 06/15/19 19:20 145/61 06/15/19 19:00 76 28 145/61 (89) 99 06/15/19 18:00 82 22 154/66 (95) 100 06/15/19 17:17 82 31 40 06/15/19 17:00 84 17 145/73 (97) 100 06/15/19 16:00 84 06/15/19 16:00 98.2 81 24 162/74 (103) 100 06/15/19 16:00 Mechanical Ventilator 06/15/19 16:00 40 06/15/19 15:12 73 28 40 06/15/19 15:00 76 32 170/67 (101) 99 Intake and Output 06/15/19 06/16/19 19:00 07:00 Intake Total 600 ml 230 ml Output Total 480 ml 625 ml Balance 120 ml -395 ml Free Water 120 ml Tube Feeding 480 ml 200 ml Other 30 ml Output Urine Total 230 ml 375 ml Stool Total 250 ml 250 ml Laboratory Tests 06/16/19 04:45: White Blood Count 8.4, Red Blood Count 2.76L, Hemoglobin 8.6L, Hematocrit 24.8L , Mean Corpuscular Volume 90, Mean Corpuscular Hemoglobin 31.1H, Mean Corpuscular Hemoglobin Concent 34.5, Red Cell Distribution Width 15.0H, Platelet Count 117L, Mean Platelet Volume 5.9L, Neutrophils (%) (Auto) , Lymphocytes (%) (Auto) , Monocytes (%) (Auto) , Eosinophils (%) (Auto) , Basophils (%) (Auto) , Prothrombin Time 12.6H, Prothromb Time International Ratio 1.2H, Activated Partial Thromboplast Time 22L, Sodium Level 149H, Potassium Level 3.4L, Chloride Level 110H, Carbon Dioxide Level 32, Anion Gap 7 , Blood Urea Nitrogen 65H, Creatinine 3.5H, Estimat Glomerular Filtration Rate , Glucose Level 124H, Calcium Level 7.7L, Phosphorus Level 2.9, Magnesium Level 2.1, Total Bilirubin 0.4, Aspartate Amino Transf (AST/SGOT) 50H, Alanine Aminotransferase (ALT/SGPT) 68, Alkaline Phosphatase 66, C-Reactive Protein, Quantitative 0.6, Pro-B-Type Natriuretic Peptide 4936H, Total Protein 4.6L, Albumin 1.7L, Globulin 2.9, Albumin/Globulin Ratio 0.6L, Random Vancomycin Level 8.3 Height (Feet): 5 Height (Inches): 7.00 Weight (Pounds): 166 General Appearance: no apparent distress Cardiovascular: normal rate Respiratory/Chest: decreased breath sounds Abdomen: distended Objective no change Reinier Mera MD Jun 16, 2019 14:01
[2019-06-16] MEDS ORDERED: Sodium Chloride 10ml vial INJ ONE (14:08)
--- NOTE | 2019-06-16 14:08 | Immediate Post-Op Evaluation ---
Immediate Post-Op Evalulation Immediate Post-Op Evalulation Procedure: Tracheostomy Date of Evaluation: Jun 16, 2019 Time of Evaluation: 14:13 IV Fluids: 20 LR Blood Products: 0 Estimated Blood Loss: 4 Urinary Output: 0 Blood Pressure Systolic: 101 Blood Pressure Diastolic: 61 Pulse Rate: 79 Respiratory Rate: 12 - Mech Vent O2 Sat by Pulse Oximetry: 100 Temperature (Fahrenheit): 98.3 Pain Score (1-10): 0 Nausea: No Vomiting: No Complications 0 Patient Status: no response, patent, ventilated, none Hydration Status: adequate Dru Gram Ancef IV Given Within 1 Hr of Incision: Yes Time Given: 14:14 Lawrence Carney MD Jun 16, 2019 14:08
--- NOTE | 2019-06-16 14:15 | Procedure Note ---
DATE OF PROCEDURE: 06/13/2019 SURGEON: Valentino Lino M.D. INDICATION: Dysphagia. PROCEDURE: Upper endoscopy with PEG placement. ANESTHESIA: Per Dr. Moreno. INSTRUMENT: Olympus adult flexible upper endoscope. REASON FOR PROCEDURE: The procedure, risks, benefits, and possible consequences, including hemorrhage, aspiration, perforation and infection, and alternative treatments, were explained to the patient/legal guardian by Dr. Valentino Lino and the patient/legal guardian understood and accepted these risks. DESCRIPTION OF PROCEDURE: After informed consent was obtained and the patient was adequately sedated, Olympus upper endoscope was advanced from the mouth into the second portion of the duodenum and retroflexion was performed in the stomach. Then under endoscopic guidance under sterile condition, a 20-Slovenian pull type of G-tube was successfully placed in epigastric area. The distance from the tip of the tube to skin was about 2 cm in size. The patient tolerated procedure very well without complication. SUMMARY OF FINDINGS: Status post successful PEG placement. RECOMMENDATIONS: 1. Abdominal binder. 2. Elevate the head of the bed at all times. 3. G-tube flush. 4. G-tube care. 5. Start tube feeding tomorrow given the patient is going for tracheostomy today. Valentino Lino M.D. DR: Ron JOB#: [id number] CC: SARA
--- NOTE | 2019-06-16 14:48 | Brief Operative Note ---
Immediate Post Operative Note Operative Note Pre-op Diagnosis: Respiratory insufficiency required prolonged ventilatory support Procedure: tracheostomy Post-op Diagnosis: same as pre-op Surgeon: prudence Anesthesiologist: dari Anesthesia: general, local Specimen: none Complications: none Condition: stable Fluids: see records Estimated Blood Loss: minimal Drains: none Implant(s) used?: No Bennett Logan Jun 16, 2019 14:48
[2019-06-16] MEDS: DAPTOmycin 500 MG in NS 55 ML IV SCH (15:55)
[2019-06-16] MEDS: Metoprolol Tartrate 5mg/5ml Inj IVP SCH (16:06)
--- NOTE | 2019-06-16 18:00 | Operative Note - Dictated ---
DATE OF OPERATION: 06/16/2019 PREOPERATIVE DIAGNOSIS: Respiratory insufficiency, requiring prolonged ventilatory support. POSTOPERATIVE DIAGNOSIS: Respiratory insufficiency, requiring prolonged ventilatory support. OPERATION PERFORMED: Tracheostomy. ATTENDING SURGEON: Bennett Logan M.D. CLOTH FINISHER: None. ANESTHESIOLOGIST: Lawrence Carney M.D. ANESTHESIA: General GETA plus local. ESTIMATED BLOOD LOSS: Minimal. IV FLUIDS: Please see anesthesia records. COMPLICATIONS: None. DRAINS: None. COUNTS: Sponge and needle count correct x2. WOUND CLASSIFICATION: Class 1. IMPLANTS: 8-[place] Shiley tracheostomy tube. INDICATIONS FOR PROCEDURE: This is an 84-year-old male, currently in the intensive care unit at [facility] on ventilatory support for some time. Unable to wean safely off ventilator support and prior had required ventilator support and failed extubation. Given above and medical condition, the patient's current status, tracheostomy is indicated and recommended. The patient is unable to consent and has no next of kin or power of manager harbor and is unrepresented at this time. He does have a POLST, which has identified Full Code measures and all measures to be performed. Therefore, given continuation of current care, tracheostomy is medically necessary and discussed in detail with multidisciplinary medical team to come into agreement before proceeding. OPERATIVE NOTE: The patient was taken to the operating room and placed on the operating table in supine position. All bony prominences were well padded. SCDs placed. Preoperative time-out taken identifying the patient, procedure, operative staff, and surgical staff. General anesthesia was induced. The patient was already intubated prior with ET tube. A shoulder roll was placed. The neck was prepped and draped in standard surgical fashion. A local anesthetic was infiltrated in the proposed skin incision 2 fingerbreadths above the sternal notch. Incision was carried down through the subcutaneous tissue through the platysma to the strap muscles and median raphae identified. The median raphae and divided and the strap muscles retracted laterally. The trachea was identified and the first and second tracheal rings were dissected off. A trach hook was placed and a window was made between the first and second tracheal ring and the ET tube was identified. With the assistance of the anesthesiologist, the ET tube was slowly withdrawn and when above the level of the cords, an 8-[place] Shiley tracheostomy was inserted under direct visualization without complication. The patient was ventilated through the tracheostomy with good end-tidal CO2 and volumes. Deep suctioning was performed and the skin incision was reapproximated using Monocryl sutures. Trach tie and dressings were applied. The patient tolerated the procedure well and was taken directly to ICU postprocedure. Bennett Logan M.D. DR: RENEA JOB#: [id number] CC:
[2019-06-16] MEDS ORDERED: Tubing IV Secondary IV ONE (19:32)
[2019-06-16] MEDS ORDERED: NS 275ml ONE (19:32)
[2019-06-16] MEDS: Dyna-Hex 2% Top Sol 2oz TOPIC SCH (20:07)
--- NOTE | 2019-06-16 21:00 | General Progress Note ---
Assessment/Plan Problem List: (1) SOB (shortness of breath) ICD Codes: R06.02 - Shortness of breath SNOMED: 946819547 (2) Cellulitis ICD Codes: L03.90 - Cellulitis, unspecified SNOMED: 924877645 (3) Cellulitis of upper extremity ICD Codes: L03.119 - Cellulitis of unspecified part of limb SNOMED: 895401970 Qualifiers: Qualified Codes: L03.113 - Cellulitis of right upper limb (4) Renal insufficiency ICD Codes: N28.9 - Disorder of kidney and ureter, unspecified SNOMED: 126153074, 753916099 (5) Renal failure (ARF), acute on chronic ICD Codes: N17.9 - Acute kidney failure, unspecified; N18.9 - Chronic kidney disease, unspecified SNOMED: 556385425 (6) Anemia ICD Codes: D64.9 - Anemia, unspecified SNOMED: 993505259 (7) Hypothyroidism ICD Codes: E03.9 - Hypothyroidism, unspecified SNOMED: 72626446 (8) UTI (urinary tract infection) ICD Codes: N39.0 - Urinary tract infection, site not specified SNOMED: 42994752 Status: progressing, unchanged, deteriorating Assessment/Plan: resp failure very poor prognosis lethargic trach per pulmonary check lyte trach per pulmonary chf pna sepsis not improving lyte abnormality lwound and le fracture Subjective ROS Limited/Unobtainable: Yes Allergies: Coded Allergies: No Known Allergies (Unverified , 05/18/19) Objective Last 24 Hour Vital Signs Date Time Temp Pulse Resp B/P (MAP) Pulse Ox O2 Delivery O2 Flow Rate FiO2 06/16/19 20:00 70 06/16/19 20:00 97.4 68 21 137/58 (84) 99 06/16/19 20:00 50 06/16/19 19:41 69 28 35 06/16/19 19:00 72 27 135/64 (87) 98 06/16/19 18:00 65 16 136/71 (92) 99 06/16/19 17:45 70 18 141/65 (90) 100 06/16/19 17:30 77 22 165/69 (101) 100 06/16/19 17:15 79 23 166/73 (104) 99 06/16/19 17:00 82 22 35 06/16/19 17:00 82 20 150/75 (100) 98 06/16/19 16:45 89 21 170/81 (110) 97 06/16/19 16:30 92 21 182/85 (117) 96 06/16/19 16:19 180/89 06/16/19 16:15 90 19 180/89 (119) 94 06/16/19 16:09 134 16 153/102 (119) 91 06/16/19 16:06 180 178/83 06/16/19 16:00 98.5 173 17 178/83 (114) 93 06/16/19 16:00 Mechanical Ventilator 06/16/19 16:00 188 06/16/19 16:00 50 06/16/19 15:52 142 16 167/128 (141) 92 06/16/19 15:45 166 16 170/82 (111) 93 06/16/19 15:40 123 16 195/98 (130) 93 06/16/19 15:38 134 17 192/99 (130) 93 06/16/19 15:00 91 16 171/75 (107) 97 06/16/19 14:59 89 17 35 06/16/19 14:58 79 12 100 06/16/19 14:54 83 16 145/68 (93) 99 06/16/19 14:00 72 24 06/16/19 13:22 49 16 35 06/16/19 13:00 67 16 124/46 (72) 99 06/16/19 12:00 69 06/16/19 12:00 Mechanical Ventilator 06/16/19 12:00 99.0 91 16 138/66 (90) 99 06/16/19 11:28 76 27 35 06/16/19 11:27 100 06/16/19 11:25 85 27 35 06/16/19 11:00 91 16 138/74 (95) 99 06/16/19 10:00 78 16 147/72 (97) 99 06/16/19 09:16 70 16 35 35 06/16/19 09:00 73 16 133/57 (82) 100 06/16/19 08:00 Mechanical Ventilator 06/16/19 08:00 72 16 164/67 (99) 100 06/16/19 08:00 63 06/16/19 07:20 67 22 35 06/16/19 07:00 64 16 156/62 (93) 100 06/16/19 06:30 57 16 06/16/19 06:00 51 16 133/64 (87) 100 06/16/19 05:14 74 25 35 06/16/19 05:00 71 18 167/68 (101) 100 06/16/19 04:00 Mechanical Ventilator 06/16/19 04:00 49 06/16/19 04:00 98.4 49 13 121/55 (77) 99 06/16/19 04:00 35 06/16/19 03:05 80 24 35 06/16/19 03:00 55 13 125/60 (81) 97 06/16/19 02:43 52 15 129/74 (92) 97 06/16/19 02:00 72 16 164/76 (105) 99 06/16/19 01:31 175/78 06/16/19 01:00 78 16 175/77 (109) 100 06/16/19 00:59 83 27 35 06/16/19 00:00 98.5 82 16 166/75 (105) 99 06/16/19 00:00 35 06/16/19 00:00 Mechanical Ventilator 06/16/19 00:00 82 06/15/19 23:14 79 25 35 06/15/19 23:00 78 19 157/73 (101) 98 06/15/19 22:00 79 26 150/60 (90) 99 06/15/19 21:02 75 25 35 06/15/19 21:00 58 24 107/60 (76) 99 Intake and Output 06/15/19 06/16/19 19:00 07:00 Intake Total 600 ml 230 ml Output Total 480 ml 625 ml Balance 120 ml -395 ml Free Water 120 ml Tube Feeding 480 ml 200 ml Other 30 ml Output Urine Total 230 ml 375 ml Stool Total 250 ml 250 ml Laboratory Tests 06/16/19 04:45: White Blood Count 8.4, Red Blood Count 2.76L, Hemoglobin 8.6L, Hematocrit 24.8L , Mean Corpuscular Volume 90, Mean Corpuscular Hemoglobin 31.1H, Mean Corpuscular Hemoglobin Concent 34.5, Red Cell Distribution Width 15.0H, Platelet Count 117L, Mean Platelet Volume 5.9L, Neutrophils (%) (Auto) , Lymphocytes (%) (Auto) , Monocytes (%) (Auto) , Eosinophils (%) (Auto) , Basophils (%) (Auto) , Prothrombin Time 12.6H, Prothromb Time International Ratio 1.2H, Activated Partial Thromboplast Time 22L, Sodium Level 149H, Potassium Level 3.4L, Chloride Level 110H, Carbon Dioxide Level 32, Anion Gap 7 , Blood Urea Nitrogen 65H, Creatinine 3.5H, Estimat Glomerular Filtration Rate , Glucose Level 124H, Calcium Level 7.7L, Phosphorus Level 2.9, Magnesium Level 2.1, Total Bilirubin 0.4, Aspartate Amino Transf (AST/SGOT) 50H, Alanine Aminotransferase (ALT/SGPT) 68, Alkaline Phosphatase 66, C-Reactive Protein, Quantitative 0.6, Pro-B-Type Natriuretic Peptide 4936H, Total Protein 4.6L, Albumin 1.7L, Globulin 2.9, Albumin/Globulin Ratio 0.6L, Random Vancomycin Level 8.3 Height (Feet): 5 Height (Inches): 7.00 Weight (Pounds): 166 Cardiovascular: normal rate Respiratory/Chest: lungs clear Abdomen: soft Joslyn Wiggins MD Jun 16, 2019 21:00
--- NOTE | 2019-06-16 23:57 | Cardiology Progress Note ---
Assessment/Plan Assessment/Plan 1. SVT resolved now in SR/SB, continue amiodarone. 2. Paroxysmal atrial fibrillation now in sinus rhythm. 3. Septic shock, resolved, likely due to bilateral PNA, off midodrine. 4. KIMO on CKD, s/p HD last on Jun 14. 5. Small pericardial effusion with pleural effusion, s/p HD. 6. B/L pleural effusion. 7. Ventilatory derived respiratory failure, s/p tracheostomy tube placement. 8. Dysphagia, s/p PEG placement. Subjective Subjective Sinus rhythm at rate of 70. s/p tracheostomy and PEG placement. Objective Last 24 Hour Vital Signs Date Time Temp Pulse Resp B/P (MAP) Pulse Ox O2 Delivery O2 Flow Rate FiO2 06/16/19 23:37 70 35 35 06/16/19 23:00 71 28 146/64 (91) 96 06/16/19 22:00 70 27 155/67 (96) 98 06/16/19 21:46 67 28 35 06/16/19 21:00 63 20 131/59 (83) 98 06/16/19 20:00 Mechanical Ventilator 06/16/19 20:00 70 06/16/19 20:00 97.4 68 21 137/58 (84) 99 06/16/19 20:00 50 06/16/19 19:41 69 28 35 06/16/19 19:00 72 27 135/64 (87) 98 06/16/19 18:00 65 16 136/71 (92) 99 06/16/19 17:45 70 18 141/65 (90) 100 06/16/19 17:30 77 22 165/69 (101) 100 06/16/19 17:15 79 23 166/73 (104) 99 06/16/19 17:00 82 22 35 06/16/19 17:00 82 20 150/75 (100) 98 06/16/19 16:45 89 21 170/81 (110) 97 06/16/19 16:30 92 21 182/85 (117) 96 06/16/19 16:19 180/89 06/16/19 16:15 90 19 180/89 (119) 94 06/16/19 16:09 134 16 153/102 (119) 91 06/16/19 16:06 180 178/83 06/16/19 16:00 98.5 173 17 178/83 (114) 93 06/16/19 16:00 Mechanical Ventilator 06/16/19 16:00 188 06/16/19 16:00 50 06/16/19 15:52 142 16 167/128 (141) 92 06/16/19 15:45 166 16 170/82 (111) 93 06/16/19 15:40 123 16 195/98 (130) 93 06/16/19 15:38 134 17 192/99 (130) 93 06/16/19 15:00 91 16 171/75 (107) 97 06/16/19 14:59 89 17 35 06/16/19 14:58 79 12 100 06/16/19 14:54 83 16 145/68 (93) 99 06/16/19 14:00 72 24 06/16/19 13:22 49 16 35 06/16/19 13:00 67 16 124/46 (72) 99 06/16/19 12:00 69 06/16/19 12:00 Mechanical Ventilator 06/16/19 12:00 99.0 91 16 138/66 (90) 99 06/16/19 11:28 76 27 35 06/16/19 11:27 100 06/16/19 11:25 85 27 35 06/16/19 11:00 91 16 138/74 (95) 99 06/16/19 10:00 78 16 147/72 (97) 99 06/16/19 09:16 70 16 35 35 06/16/19 09:00 73 16 133/57 (82) 100 06/16/19 08:00 Mechanical Ventilator 06/16/19 08:00 72 16 164/67 (99) 100 06/16/19 08:00 63 06/16/19 07:20 67 22 35 06/16/19 07:00 64 16 156/62 (93) 100 06/16/19 06:30 57 16 06/16/19 06:00 51 16 133/64 (87) 100 06/16/19 05:14 74 25 35 06/16/19 05:00 71 18 167/68 (101) 100 06/16/19 04:00 Mechanical Ventilator 06/16/19 04:00 49 06/16/19 04:00 98.4 49 13 121/55 (77) 99 06/16/19 04:00 35 06/16/19 03:05 80 24 35 06/16/19 03:00 55 13 125/60 (81) 97 06/16/19 02:43 52 15 129/74 (92) 97 06/16/19 02:00 72 16 164/76 (105) 99 06/16/19 01:31 175/78 06/16/19 01:00 78 16 175/77 (109) 100 06/16/19 00:59 83 27 35 06/16/19 00:00 98.5 82 16 166/75 (105) 99 06/16/19 00:00 35 06/16/19 00:00 Mechanical Ventilator 06/16/19 00:00 82 Intake and Output 06/15/19 06/16/19 19:00 07:00 Intake Total 600 ml 230 ml Output Total 480 ml 625 ml Balance 120 ml -395 ml Free Water 120 ml Tube Feeding 480 ml 200 ml Other 30 ml Output Urine Total 230 ml 375 ml Stool Total 250 ml 250 ml 2D Echo: EF 65%,Mod AR,Elevated RAP, RVSP 30,Small pericardial eff, pleural effusion Laboratory Tests Test 06/16/19 04:45 White Blood Count 8.4 K/UL (4.8-10.8) Red Blood Count 2.76 M/UL (4.70-6.10) L Hemoglobin 8.6 G/DL (14.2-18.0) L Hematocrit 24.8 % (42.0-52.0) L Mean Corpuscular Volume 90 FL (80-99) Mean Corpuscular Hemoglobin 31.1 PG (27.0-31.0) H Mean Corpuscular Hemoglobin Concent 34.5 G/DL (32.0-36.0) Red Cell Distribution Width 15.0 % (11.6-14.8) H Platelet Count 117 K/UL (150-450) L Mean Platelet Volume 5.9 FL (6.5-10.1) L Neutrophils (%) (Auto) % (45.0-75.0) Lymphocytes (%) (Auto) % (20.0-45.0) Monocytes (%) (Auto) % (1.0-10.0) Eosinophils (%) (Auto) % (0.0-3.0) Basophils (%) (Auto) % (0.0-2.0) Prothrombin Time 12.6 SEC (9.30-11.50) H Prothromb Time International Ratio 1.2 (0.9-1.1) H Activated Partial Thromboplast Time 22 SEC (23-33) L Sodium Level 149 MMOL/L (136-145) H Potassium Level 3.4 MMOL/L (3.5-5.1) L Chloride Level 110 MMOL/L (98-107) H Carbon Dioxide Level 32 MMOL/L (21-32) Anion Gap 7 mmol/L (5-15) Blood Urea Nitrogen 65 mg/dL (7-18) H Creatinine 3.5 MG/DL (0.55-1.30) H Estimat Glomerular Filtration Rate mL/min (>60) Glucose Level 124 MG/DL (74-106) H Calcium Level 7.7 MG/DL (8.5-10.1) L Phosphorus Level 2.9 MG/DL (2.5-4.9) Magnesium Level 2.1 MG/DL (1.8-2.4) Total Bilirubin 0.4 MG/DL (0.2-1.0) Aspartate Amino Transf (AST/SGOT) 50 U/L (15-37) H Alanine Aminotransferase (ALT/SGPT) 68 U/L (12-78) Alkaline Phosphatase 66 U/L (46-116) C-Reactive Protein, Quantitative 0.6 mg/dL (0.00-0.90) Pro-B-Type Natriuretic Peptide 4936 pg/mL (0-125) H Total Protein 4.6 G/DL (6.4-8.2) L Albumin 1.7 G/DL (3.4-5.0) L Globulin 2.9 g/dL Albumin/Globulin Ratio 0.6 (1.0-2.7) L Random Vancomycin Level 8.3 ug/mL Objective HEENT: Atraumatic and normocephalic. Anicteric. Pupils are equal, round, and reactive to light and accommodation. Extraocular muscles intact. NECK: JVP less than 5 cm. No carotid bruit. Carotid upstroke is 2+ bilaterally. + trach in place. CARDIOVASCULAR: Normal S1, S2. Regular rate and rhythm. No murmurs, gallops, or rubs. PMI is at fourth intercostal space in the midclavicular line. LUNGS: Diminished both bases. ABDOMEN: Soft, nontender, and nondistended. No hepatosplenomegaly. Positive bowel sounds. + PEG in place. EXTREMITIES: No evidence of edema, clubbing, or cyanosis. Del Garcia MD Jun 16, 2019 23:57
[2019-06-17] VITALS (20 sets, daily range): BP systolic 116–166; BP diastolic 55–82
[2019-06-17 05:39] LABS: ANION GAP 8 mmol/L (5-15); BLOOD UREA NITROGEN 72 mg/dL (7-18); CALCIUM 7.1 MG/DL (8.5-10.1); CARBON DIOXIDE 30 MMOL/L (21-32); CHLORIDE 110 MMOL/L (98-107); CREATININE 3.7 MG/DL (0.55-1.30); POTASSIUM 3.8 MMOL/L (3.5-5.1); SODIUM 148 MMOL/L (136-145)
[2019-06-17 05:53] LABS: HEMOGLOBIN 8.5 G/DL (14.2-18.0); MEAN CORPUSCULAR VOLUME 90 FL (80-99); PLATELET COUNT 105 K/UL (150-450); RED BLOOD COUNT 2.76 M/UL (4.70-6.10)
[2019-06-17 06:12] LABS: CREATINE KINASE 41 U/L (26-308)
--- NOTE | 2019-06-17 06:17 | Hematology/Onc Progress Note ---
Assessment/Plan Assessment/Plan # Anemia of chronic disease due to underlying chronic medical issues, multifactorial v Gi bleed --> Anemia workup has been reviewed, rule out gi bleed --> No evidence of hemolysis is noted, peripheral smear has been reviewed. --> Hgb goal >7. Transfuse prn. --> Epogen or iron at this time is not particularly indicated --> Medications have been reviewed --> low threshold for gi evaluation in case has occult + --> hgb trend: 9.3-->9.7-->8.1-->7.6-->8-->9.4-->9.2->7.5-->9.3-->8-->8.1-->8.6- ->7.8-->8.3-->7.6-->8.2-->8.6 --> transf 05/28/19 with 1 unit prbc, 1 unit on 06/03 --> transfusion is a emergency, no family, no poa, is okay to transfuse # Right upper arm extremity axillary vein dvt --> agree to continue eliquis --> continue for total of minimum of 3 months --> rescan arm in 3 mo # Thrombocytopenia is due to infection, i.e. cellulitis of upper extremity, likely picc line infection --> as per id on ax --> picc off --> levoflox/vanc-->zosyn/vanc--> zosyn-->dapto/zosyn --> plt trend 208-->132-->146k-->159-->217-->211-->145-->117-->145 # Respiratory failure s/p vent --> has been failing weaning --> trach 06/16 # Renal insufficiency --> per Dr. Mera # Pneumonia --> abx per id # Dehydration. --> goal of euvolemia # Paroxysmal Atrial fibrillation with rapid ventricular response was on amiodarone gtt, now in sinus rhythm. --> per cards On PO amiodarone 200 bid, Lopressor 25 bid # Dysphagia with ng tube --> s/p peg 06/13 # Septic shock --> has required icu admission, and pressor # Dvt ppx eliquis--> continued The timing of this note does not necessarily reflect the time of the patient was seen. Greatly appreciate consultation. Subjective Constitutional: Denies: no symptoms, chills, fever, malaise, weakness, other HEENT: Denies: no symptoms, eye pain, blurred vision, tearing, double vision, ear pain, ear discharge, nose pain, nose congestion, throat pain, throat swelling, mouth pain, mouth swelling, other Cardiovascular: Denies: no symptoms, chest pain, edema, irregular heart rate, lightheadedness, palpitations, syncope, other Gastrointestinal/Abdominal: Denies: no symptoms, abdomen distended, abdominal pain, black stools, tarry stools, blood in stool, constipated, diarrhea, difficulty swallowing, nausea, poor appetite, poor fluid intake, rectal bleeding , vomiting, other Genitourinary: Denies: no symptoms, burning, discharge, frequency, flank pain, hematuria, incontinence, pain, urgency, other Neurologic/Psychiatric: Denies: no symptoms, anxiety, depressed, emotional problems, headache, numbness, paresthesia, pre-existing deficit, seizure, tingling, tremors, weakness, other Endocrine: Denies: no symptoms, excessive sweating, flushing, intolerance to cold, intolerance to heat, increased hunger, increased thirst, increased urine, unexplained weight gain, unexplained weight loss, other Allergies: Coded Allergies: No Known Allergies (Unverified , 05/18/19) Subjective 05/24: awake and alert, v mask, labs reviewed, apixaban 05/25: as per gi, ngt and eliquis tolerated 05/26: pending clearance but still with ng and nonrebreather 05/27: hypoxic yesterday, deteriorated, coded, now intubated, icu, labs noted 05/28: icu, levophed gtt, hgb 7.6, repeat cbc 05/29: remains in the icu, given prbc last night, no bleeding 05/30: no events, no bleeding, ++ fredo and on pressor 05/31: intubated, bp better on pressor, no bleeding, coag ordered 06/02: reamins ill appearing, on vent, labs noted, on vent, poorly responsive 06/03: no events, no bleeding, labs noted, dw surgery, and Rn, monitoring plt 06/04: tolerating tube feeds, labs noted, in the icu 06/05: restraints, cxr unchanged, anticoagulants on hold until further notice 06/06: no events, no bleeding, no night sweats, no bleeding 06/08: icu, unable to wean per resp, apixaban restarted, labs reviewed 06/09: minimally responsive, on vent and gt feeds, no bleeding 06/10: no acute events, failed to wean, hd for today, h/h stable 06/11: remains altered, may need trach, coags ordered, no bleeding currently 06/12: no events, no bleeding, trach pending, no major changes 06/13: icu, weaning failed, egd pending, hgb 7.6, repeat cbc 06/15: no events, no bleeding, is more responsive, labs reviewed, no changes, on pressor 06/16: remains on vent, no bleeding, on pressors, labs noted 06/17: now is s/p trach as well, on vent, labs reviewed, jeison Rn Sal Objective Objective Current Medications Medications (Trade) Dose Ordered Sig/Phillip Route PRN Reason Start Time Stop Time Status Last Admin Dose Admin Acetaminophen (Tylenol) 500 mg Q4H PRN GT Mild Pain/Temp > 100.5 05/27/19 07:45 06/19/19 20:29 06/15/19 08:28 Amiodarone HCl (Cordarone) 200 mg DAILY ORAL 06/07/19 16:15 07/07/19 16:14 06/16/19 10:00 Chlorhexidine Gluconate (Reina-Hex 2%) 1 applic DAILY@1999 TOPIC 05/27/19 20:00 06/26/19 19:59 06/16/19 20:07 Clonidine HCl (Catapres Tab) 0.1 mg Q4H PRN GT For High Blood Pressure 06/13/19 18:45 07/13/19 18:44 06/16/19 16:19 Daptomycin 500 mg/ Sodium Chloride 55 ml @ 100 mls/hr Q48H IV 05/29/19 13:00 06/23/19 23:59 06/16/19 15:55 Lansoprazole (Prevacid) 30 mg BID NG 06/06/19 18:00 07/06/19 17:59 06/16/19 18:11 Methylprednisolone Sodium Succinate (Solu-MEDROL) 20 mg DAILY IVP 06/16/19 09:00 07/04/19 20:59 06/16/19 09:59 Metoprolol Tartrate (Lopressor) 5 mg Q5MIN X 3 IVP 06/07/19 16:15 07/07/19 16:14 06/16/19 16:06 Norepinephrine Bitartrate 4 mg/ Dextrose 250 ml @ 0 mls/hr Q24H IV 05/29/19 19:20 06/28/19 19:19 05/30/19 22:45 Vitamin D (Vitamin D) 5,000 intlu DAILY GT 06/07/19 13:00 07/07/19 12:59 06/16/19 10:00 Last 24 Hour Vital Signs Date Time Temp Pulse Resp B/P (MAP) Pulse Ox O2 Delivery O2 Flow Rate FiO2 06/17/19 05:25 69 26 35 06/17/19 05:00 70 3 153/71 (98) 98 06/17/19 04:00 98.2 71 6 158/67 (97) 98 06/17/19 04:00 65 06/17/19 04:00 Mechanical Ventilator 06/17/19 04:00 50 06/17/19 03:35 73 37 35 06/17/19 03:00 70 20 157/68 (97) 99 06/17/19 02:00 68 18 143/64 (90) 98 06/17/19 01:24 67 30 35 06/17/19 01:00 68 20 138/60 (86) 98 06/17/19 00:00 71 06/17/19 00:00 50 06/17/19 00:00 97.7 69 22 143/61 (88) 97 06/17/19 00:00 Mechanical Ventilator 06/16/19 23:37 70 35 35 06/16/19 23:00 71 28 146/64 (91) 96 06/16/19 22:00 70 27 155/67 (96) 98 06/16/19 21:46 67 28 35 06/16/19 21:00 63 20 131/59 (83) 98 06/16/19 20:00 Mechanical Ventilator 06/16/19 20:00 70 06/16/19 20:00 97.4 68 21 137/58 (84) 99 06/16/19 20:00 50 06/16/19 19:41 69 28 35 06/16/19 19:00 72 27 135/64 (87) 98 06/16/19 18:00 65 16 136/71 (92) 99 06/16/19 17:45 70 18 141/65 (90) 100 06/16/19 17:30 77 22 165/69 (101) 100 06/16/19 17:15 79 23 166/73 (104) 99 06/16/19 17:00 82 22 35 06/16/19 17:00 82 20 150/75 (100) 98 06/16/19 16:45 89 21 170/81 (110) 97 06/16/19 16:30 92 21 182/85 (117) 96 06/16/19 16:19 180/89 06/16/19 16:15 90 19 180/89 (119) 94 06/16/19 16:09 134 16 153/102 (119) 91 06/16/19 16:06 180 178/83 06/16/19 16:00 98.5 173 17 178/83 (114) 93 06/16/19 16:00 Mechanical Ventilator 06/16/19 16:00 188 06/16/19 16:00 50 06/16/19 15:52 142 16 167/128 (141) 92 06/16/19 15:45 166 16 170/82 (111) 93 06/16/19 15:40 123 16 195/98 (130) 93 06/16/19 15:38 134 17 192/99 (130) 93 06/16/19 15:00 91 16 171/75 (107) 97 06/16/19 14:59 89 17 35 06/16/19 14:58 79 12 100 06/16/19 14:54 83 16 145/68 (93) 99 06/16/19 14:00 72 24 06/16/19 13:22 49 16 35 06/16/19 13:00 67 16 124/46 (72) 99 06/16/19 12:00 69 06/16/19 12:00 Mechanical Ventilator 06/16/19 12:00 99.0 91 16 138/66 (90) 99 06/16/19 11:28 76 27 35 06/16/19 11:27 100 06/16/19 11:25 85 27 35 06/16/19 11:00 91 16 138/74 (95) 99 06/16/19 10:00 78 16 147/72 (97) 99 06/16/19 09:16 70 16 35 35 06/16/19 09:00 73 16 133/57 (82) 100 06/16/19 08:00 Mechanical Ventilator 06/16/19 08:00 72 16 164/67 (99) 100 06/16/19 08:00 63 06/16/19 07:20 67 22 35 06/16/19 07:00 64 16 156/62 (93) 100 06/16/19 06:30 57 16 06/16/19 06:00 51 16 133/64 (87) 100 06/16/19 05:14 74 25 35 06/16/19 05:00 71 18 167/68 (101) 100 06/16/19 04:00 Mechanical Ventilator 06/16/19 04:00 49 06/16/19 04:00 98.4 49 13 121/55 (77) 99 06/16/19 04:00 35 06/16/19 03:05 80 24 35 06/16/19 03:00 55 13 125/60 (81) 97 06/16/19 02:43 52 15 129/74 (92) 97 06/16/19 02:00 72 16 164/76 (105) 99 06/16/19 01:31 175/78 06/16/19 01:00 78 16 175/77 (109) 100 06/16/19 00:59 83 27 35 06/16/19 00:00 98.5 82 16 166/75 (105) 99 06/16/19 00:00 35 06/16/19 00:00 Mechanical Ventilator 06/16/19 00:00 82 06/15/19 23:14 79 25 35 06/15/19 23:00 78 19 157/73 (101) 98 06/15/19 22:00 79 26 150/60 (90) 99 06/15/19 21:02 75 25 35 06/15/19 21:00 58 24 107/60 (76) 99 06/15/19 20:26 73 06/15/19 20:00 98.6 75 26 153/65 (94) 100 06/15/19 20:00 35 06/15/19 20:00 Mechanical Ventilator 06/15/19 19:26 74 29 35 06/15/19 19:20 145/61 06/15/19 19:00 76 28 145/61 (89) 99 06/15/19 18:00 82 22 154/66 (95) 100 06/15/19 17:17 82 31 40 06/15/19 17:00 84 17 145/73 (97) 100 06/15/19 16:00 84 06/15/19 16:00 98.2 81 24 162/74 (103) 100 06/15/19 16:00 Mechanical Ventilator 06/15/19 16:00 40 06/15/19 15:12 73 28 40 06/15/19 15:00 76 32 170/67 (101) 99 06/15/19 14:00 71 22 150/64 (92) 99 06/15/19 13:00 73 27 155/66 (95) 99 06/15/19 12:00 40 06/15/19 12:00 98.3 63 20 140/60 (86) 99 06/15/19 12:00 Mechanical Ventilator 06/15/19 12:00 74 06/15/19 11:15 68 35 40 06/15/19 11:00 52 16 125/51 (75) 99 06/15/19 10:00 71 25 156/68 (97) 99 06/15/19 09:13 100 06/15/19 09:00 76 31 154/74 (100) 97 06/15/19 08:58 98.5 06/15/19 08:56 86 32 40 06/15/19 08:00 40 06/15/19 08:00 98.6 76 25 149/65 (93) 99 06/15/19 08:00 Mechanical Ventilator 06/15/19 08:00 54 06/15/19 07:21 59 16 40 06/15/19 07:00 76 23 147/60 (89) 99 06/15/19 06:40 77 16 Intake and Output 06/16/19 06/17/19 19:00 07:00 Intake Total 500 ml 0 ml Output Total 645 ml 420 ml Balance -145 ml -420 ml IV Total 500 ml Tube Feeding 0 ml 0 ml Output Urine Total 375 ml 420 ml Stool Total 270 ml Labs Test 06/15/19 05:27 06/16/19 04:45 1/21/20 03:30 White Blood Count 8.7 K/UL (4.8-10.8) 8.4 K/UL (4.8-10.8) 8.0 K/UL (4.8-10.8) Red Blood Count 2.67 M/UL (4.70-6.10) 2.76 M/UL (4.70-6.10) 2.76 M/UL (4.70-6.10) Hemoglobin 8.2 G/DL (14.2-18.0) 8.6 G/DL (14.2-18.0) 8.5 G/DL (14.2-18.0) Hematocrit 23.8 % (42.0-52.0) 24.8 % (42.0-52.0) 25.0 % (42.0-52.0) Mean Corpuscular Volume 89 FL (80-99) 90 FL (80-99) 90 FL (80-99) Mean Corpuscular Hemoglobin 30.7 PG (27.0-31.0) 31.1 PG (27.0-31.0) 30.8 PG (27.0-31.0) Mean Corpuscular Hemoglobin Concent 34.5 G/DL (32.0-36.0) 34.5 G/DL (32.0-36.0) 34.1 G/DL (32.0-36.0) Red Cell Distribution Width 14.7 % (11.6-14.8) 15.0 % (11.6-14.8) 15.0 % (11.6-14.8) Platelet Count 110 K/UL (150-450) 117 K/UL (150-450) 105 K/UL (150-450) Mean Platelet Volume 5.8 FL (6.5-10.1) 5.9 FL (6.5-10.1) 5.9 FL (6.5-10.1) Neutrophils (%) (Auto) % (45.0-75.0) % (45.0-75.0) % (45.0-75.0) Lymphocytes (%) (Auto) % (20.0-45.0) % (20.0-45.0) % (20.0-45.0) Monocytes (%) (Auto) % (1.0-10.0) % (1.0-10.0) % (1.0-10.0) Eosinophils (%) (Auto) % (0.0-3.0) % (0.0-3.0) % (0.0-3.0) Basophils (%) (Auto) % (0.0-2.0) % (0.0-2.0) % (0.0-2.0) Differential Total Cells Counted 100 Neutrophils % (Manual) 94 % (45-75) Lymphocytes % (Manual) 5 % (20-45) Monocytes % (Manual) 1 % (1-10) Eosinophils % (Manual) 0 % (0-3) Basophils % (Manual) 0 % (0-2) Band Neutrophils 0 % (0-8) Platelet Estimate Decreased Platelet Morphology Normal Anisocytosis 1+ Sodium Level 147 MMOL/L (136-145) 149 MMOL/L (136-145) Potassium Level 3.5 MMOL/L (3.5-5.1) 3.4 MMOL/L (3.5-5.1) Chloride Level 109 MMOL/L (98-107) 110 MMOL/L (98-107) Carbon Dioxide Level 31 MMOL/L (21-32) 32 MMOL/L (21-32) Anion Gap 7 mmol/L (5-15) 7 mmol/L (5-15) Blood Urea Nitrogen 53 mg/dL (7-18) 65 mg/dL (7-18) Creatinine 3.1 MG/DL (0.55-1.30) 3.5 MG/DL (0.55-1.30) Estimat Glomerular Filtration Rate mL/min (>60) mL/min (>60) Glucose Level 209 MG/DL (74-106) 124 MG/DL (74-106) Calcium Level 7.4 MG/DL (8.5-10.1) 7.7 MG/DL (8.5-10.1) Phosphorus Level 2.8 MG/DL (2.5-4.9) 2.9 MG/DL (2.5-4.9) Magnesium Level 2.0 MG/DL (1.8-2.4) 2.1 MG/DL (1.8-2.4) Total Bilirubin 0.4 MG/DL (0.2-1.0) 0.4 MG/DL (0.2-1.0) Aspartate Amino Transf (AST/SGOT) 45 U/L (15-37) 50 U/L (15-37) Alanine Aminotransferase (ALT/SGPT) 59 U/L (12-78) 68 U/L (12-78) Alkaline Phosphatase 71 U/L (46-116) 66 U/L (46-116) Total Protein 4.6 G/DL (6.4-8.2) 4.6 G/DL (6.4-8.2) Albumin 1.6 G/DL (3.4-5.0) 1.7 G/DL (3.4-5.0) Globulin 3.0 g/dL 2.9 g/dL Albumin/Globulin Ratio 0.5 (1.0-2.7) 0.6 (1.0-2.7) Prothrombin Time 12.6 SEC (9.30-11.50) Prothromb Time International Ratio 1.2 (0.9-1.1) Activated Partial Thromboplast Time 22 SEC (23-33) C-Reactive Protein, Quantitative 0.6 mg/dL (0.00-0.90) Pro-B-Type Natriuretic Peptide 4936 pg/mL (0-125) Random Vancomycin Level 8.3 ug/mL Height (Feet): 5 Height (Inches): 7.00 Weight (Pounds): 166 Lymphatic: tender other Objective PE: Vitals: reviewed General Appearance: NAD HEENT: normocephalic, atraumatic Neck: non-tender, normal alignment Respiratory/Chest: VENT++ ++ trach Cardiovascular/Chest: normal peripheral pulses, normal rate Abdomen: normal bowel sounds, soft, nontender ++ peg Extremities: normal range of motion ++ right arm swelling Suleman Addison MD Jun 17, 2019 06:17
[2019-06-17] MEDS: Amiodarone 200mg tab ORAL SCH (08:42)
[2019-06-17] MEDS: Vitamin D 1000 IU Tab GT SCH (08:42)
[2019-06-17] MEDS: Solu-MEDROL 40mg Inj IVP SCH (08:42)
--- NOTE | 2019-06-17 09:35 | General Progress Note ---
Assessment/Plan Problem List: (1) Dysphagia ICD Codes: R13.10 - Dysphagia, unspecified SNOMED: 43157901, 522568229 (2) Anemia ICD Codes: D64.9 - Anemia, unspecified SNOMED: 001315563 (3) Hypothyroidism ICD Codes: E03.9 - Hypothyroidism, unspecified SNOMED: 61904839 (4) Thrombus ICD Codes: I82.90 - Acute embolism and thrombosis of unspecified vein SNOMED: 01508361, 68443075, 456340559, 359678571 (5) A-fib ICD Codes: I48.91 - Unspecified atrial fibrillation SNOMED: 58420121 Status: progressing, unchanged, deteriorating Assessment/Plan: intubated in ICU fu pulm fu labs abx per ID s/p trach poor prognosis s/p PEG GTF will start today Subjective ROS Limited/Unobtainable: No Allergies: Coded Allergies: No Known Allergies (Unverified , 05/18/19) Subjective coded today Objective Last 24 Hour Vital Signs Date Time Temp Pulse Resp B/P (MAP) Pulse Ox O2 Delivery O2 Flow Rate FiO2 06/17/19 09:00 76 13 152/68 (96) 98 06/17/19 08:50 75 18 35 06/17/19 08:00 98.7 78 9 166/75 (105) 99 06/17/19 08:00 78 06/17/19 08:00 35 06/17/19 08:00 Mechanical Ventilator 06/17/19 07:05 75 28 35 06/17/19 07:00 71 15 161/82 (108) 99 06/17/19 06:00 70 0 152/79 (103) 98 06/17/19 05:25 69 26 35 06/17/19 05:00 70 3 153/71 (98) 98 06/17/19 04:00 98.2 71 6 158/67 (97) 98 06/17/19 04:00 65 06/17/19 04:00 Mechanical Ventilator 06/17/19 04:00 50 06/17/19 03:35 73 37 35 06/17/19 03:00 70 20 157/68 (97) 99 06/17/19 02:00 68 18 143/64 (90) 98 06/17/19 01:24 67 30 35 1/21/20 01:00 68 20 138/60 (86) 98 06/17/19 00:00 71 06/17/19 00:00 50 06/17/19 00:00 97.7 69 22 143/61 (88) 97 06/17/19 00:00 Mechanical Ventilator 06/16/19 23:37 70 35 35 06/16/19 23:00 71 28 146/64 (91) 96 06/16/19 22:00 70 27 155/67 (96) 98 06/16/19 21:46 67 28 35 06/16/19 21:00 63 20 131/59 (83) 98 06/16/19 20:00 Mechanical Ventilator 06/16/19 20:00 70 06/16/19 20:00 97.4 68 21 137/58 (84) 99 06/16/19 20:00 50 06/16/19 19:41 69 28 35 06/16/19 19:00 72 27 135/64 (87) 98 06/16/19 18:00 65 16 136/71 (92) 99 06/16/19 17:45 70 18 141/65 (90) 100 06/16/19 17:30 77 22 165/69 (101) 100 06/16/19 17:15 79 23 166/73 (104) 99 06/16/19 17:00 82 22 35 06/16/19 17:00 82 20 150/75 (100) 98 06/16/19 16:45 89 21 170/81 (110) 97 06/16/19 16:30 92 21 182/85 (117) 96 06/16/19 16:19 180/89 06/16/19 16:15 90 19 180/89 (119) 94 06/16/19 16:09 134 16 153/102 (119) 91 06/16/19 16:06 180 178/83 06/16/19 16:00 98.5 173 17 178/83 (114) 93 06/16/19 16:00 Mechanical Ventilator 06/16/19 16:00 188 06/16/19 16:00 50 06/16/19 15:52 142 16 167/128 (141) 92 06/16/19 15:45 166 16 170/82 (111) 93 06/16/19 15:40 123 16 195/98 (130) 93 06/16/19 15:38 134 17 192/99 (130) 93 06/16/19 15:00 91 16 171/75 (107) 97 06/16/19 14:59 89 17 35 06/16/19 14:58 79 12 100 06/16/19 14:54 83 16 145/68 (93) 99 06/16/19 14:00 72 24 06/16/19 13:22 49 16 35 06/16/19 13:00 67 16 124/46 (72) 99 06/16/19 12:00 69 06/16/19 12:00 Mechanical Ventilator 06/16/19 12:00 99.0 91 16 138/66 (90) 99 06/16/19 11:28 76 27 35 06/16/19 11:27 100 06/16/19 11:25 85 27 35 06/16/19 11:00 91 16 138/74 (95) 99 06/16/19 10:00 78 16 147/72 (97) 99 Intake and Output 06/16/19 06/17/19 19:00 07:00 Intake Total 500 ml 0 ml Output Total 645 ml 540 ml Balance -145 ml -540 ml IV Total 500 ml Tube Feeding 0 ml 0 ml Output Urine Total 375 ml 490 ml Stool Total 270 ml 50 ml Laboratory Tests 06/17/19 03:30: White Blood Count 8.0, Red Blood Count 2.76L, Hemoglobin 8.5L, Hematocrit 25.0L , Mean Corpuscular Volume 90, Mean Corpuscular Hemoglobin 30.8, Mean Corpuscular Hemoglobin Concent 34.1, Red Cell Distribution Width 15.0H, Platelet Count 105L, Mean Platelet Volume 5.9L, Neutrophils (%) (Auto) , Lymphocytes (%) (Auto) , Monocytes (%) (Auto) , Eosinophils (%) (Auto) , Basophils (%) (Auto) , Differential Total Cells Counted 100, Neutrophils % ( Manual) 96H, Lymphocytes % (Manual) 2L, Monocytes % (Manual) 2, Eosinophils % ( Manual) 0, Basophils % (Manual) 0, Band Neutrophils 0, Platelet Estimate DecreasedL, Platelet Morphology Normal, Sodium Level 148H, Potassium Level 3.8, Chloride Level 110H, Carbon Dioxide Level 30, Anion Gap 8, Blood Urea Nitrogen 72H, Creatinine 3.7H, Estimat Glomerular Filtration Rate , Glucose Level 99, Calcium Level 7.1L, Total Creatine Kinase 41 Height (Feet): 5 Height (Inches): 7.00 Weight (Pounds): 183 General Appearance: no apparent distress EENT: normal ENT inspection Neck: supple Cardiovascular: normal rate Respiratory/Chest: decreased breath sounds Abdomen: normal bowel sounds, non tender, soft Extremities: non-tender Valentino Lino MD Jun 17, 2019 09:35
--- NOTE | 2019-06-17 09:57 | Infectious Diseases Prog Note ---
Assessment/Plan Assessment/Plan 84 yo male with PMHx of HTN who was sent to the ED on 05/18/19 from his senior living for possible picc line infection. Swelling around PICC line Minimal to no erythema and no purulent drainage Not likely to be infected Blood Cx 05/18/19 - NGTD PICC Tip Cx 05/18/19 - NGTD PICC line removed 05/18/19 Leukocytosis, mild recurrent (on steroids)- resolved No fever OM - Let foot On Vancomycin at nursing End date early May PNA Acute respiratory failure s/p intubation 05/27, s/p trach 06/16/1906/10 CXR: Bilateral upper lobe interstitial opacities and volume loss are unchanged. Diffuse more acute appearing parenchymal disease throughout the left mid and lower lung are unchanged. CXR - Some LLL Atelectasis vs PNA, Nodules CT 05/20/19 - Bilateral upper lobe infiltrates worse on the right. Consider pneumonia. Bilateral pleural effusions moderate in size Sp Cx Marily HTN PLAN - Continue Daptomycin for OM until 06/23/19 weekly CPK -06/10 SP Zosyn #15 - 05/28/19 SP Vancomycin per pharmacy - Stopped for increasing Cr - 05/27/19 SP Levofloxacin #5 - Monitor CBC and Temps -trach/ICU care -aspiration precautions -wound care per hospital protocol Thank you for this consult. [facility] will continue to follow the patient with you during this hospitalization. Subjective Allergies: Coded Allergies: No Known Allergies (Unverified , 05/18/19) Subjective afebrile no leukocytosis s/p trach yesterday Objective Vital Signs Last 24 Hour Vital Signs Date Time Temp Pulse Resp B/P (MAP) Pulse Ox O2 Delivery O2 Flow Rate FiO2 06/17/19 09:00 76 13 152/68 (96) 98 06/17/19 08:50 75 18 35 06/17/19 08:00 98.7 78 9 166/75 (105) 99 06/17/19 08:00 78 06/17/19 08:00 35 06/17/19 08:00 Mechanical Ventilator 06/17/19 07:05 75 28 35 06/17/19 07:00 71 15 161/82 (108) 99 06/17/19 06:00 70 0 152/79 (103) 98 06/17/19 05:25 69 26 35 06/17/19 05:00 70 3 153/71 (98) 98 06/17/19 04:00 98.2 71 6 158/67 (97) 98 06/17/19 04:00 65 06/17/19 04:00 Mechanical Ventilator 06/17/19 04:00 50 06/17/19 03:35 73 37 35 06/17/19 03:00 70 20 157/68 (97) 99 06/17/19 02:00 68 18 143/64 (90) 98 06/17/19 01:24 67 30 35 06/17/19 01:00 68 20 138/60 (86) 98 06/17/19 00:00 71 06/17/19 00:00 50 06/17/19 00:00 97.7 69 22 143/61 (88) 97 06/17/19 00:00 Mechanical Ventilator 06/16/19 23:37 70 35 35 06/16/19 23:00 71 28 146/64 (91) 96 06/16/19 22:00 70 27 155/67 (96) 98 06/16/19 21:46 67 28 35 06/16/19 21:00 63 20 131/59 (83) 98 06/16/19 20:00 Mechanical Ventilator 06/16/19 20:00 70 06/16/19 20:00 97.4 68 21 137/58 (84) 99 06/16/19 20:00 50 06/16/19 19:41 69 28 35 06/16/19 19:00 72 27 135/64 (87) 98 06/16/19 18:00 65 16 136/71 (92) 99 06/16/19 17:45 70 18 141/65 (90) 100 06/16/19 17:30 77 22 165/69 (101) 100 06/16/19 17:15 79 23 166/73 (104) 99 06/16/19 17:00 82 22 35 06/16/19 17:00 82 20 150/75 (100) 98 06/16/19 16:45 89 21 170/81 (110) 97 06/16/19 16:30 92 21 182/85 (117) 96 06/16/19 16:19 180/89 06/16/19 16:15 90 19 180/89 (119) 94 06/16/19 16:09 134 16 153/102 (119) 91 06/16/19 16:06 180 178/83 06/16/19 16:00 98.5 173 17 178/83 (114) 93 06/16/19 16:00 Mechanical Ventilator 06/16/19 16:00 188 06/16/19 16:00 50 06/16/19 15:52 142 16 167/128 (141) 92 06/16/19 15:45 166 16 170/82 (111) 93 06/16/19 15:40 123 16 195/98 (130) 93 06/16/19 15:38 134 17 192/99 (130) 93 06/16/19 15:00 91 16 171/75 (107) 97 06/16/19 14:59 89 17 35 06/16/19 14:58 79 12 100 06/16/19 14:54 83 16 145/68 (93) 99 06/16/19 14:00 72 24 06/16/19 13:22 49 16 35 06/16/19 13:00 67 16 124/46 (72) 99 06/16/19 12:00 69 06/16/19 12:00 Mechanical Ventilator 06/16/19 12:00 99.0 91 16 138/66 (90) 99 06/16/19 11:28 76 27 35 06/16/19 11:27 100 06/16/19 11:25 85 27 35 06/16/19 11:00 91 16 138/74 (95) 99 06/16/19 10:00 78 16 147/72 (97) 99 Height (Feet): 5 Height (Inches): 7.00 Weight (Pounds): 183 Objective General Appearance: no apparent distress, lethargic Cardiovascular: normal rate Respiratory/Chest: decreased breath sounds Abdomen: distended Laboratory Tests Test 06/17/19 03:30 White Blood Count 8.0 K/UL (4.8-10.8) Red Blood Count 2.76 M/UL (4.70-6.10) L Hemoglobin 8.5 G/DL (14.2-18.0) L Hematocrit 25.0 % (42.0-52.0) L Mean Corpuscular Volume 90 FL (80-99) Mean Corpuscular Hemoglobin 30.8 PG (27.0-31.0) Mean Corpuscular Hemoglobin Concent 34.1 G/DL (32.0-36.0) Red Cell Distribution Width 15.0 % (11.6-14.8) H Platelet Count 105 K/UL (150-450) L Mean Platelet Volume 5.9 FL (6.5-10.1) L Neutrophils (%) (Auto) % (45.0-75.0) Lymphocytes (%) (Auto) % (20.0-45.0) Monocytes (%) (Auto) % (1.0-10.0) Eosinophils (%) (Auto) % (0.0-3.0) Basophils (%) (Auto) % (0.0-2.0) Differential Total Cells Counted 100 Neutrophils % (Manual) 96 % (45-75) H Lymphocytes % (Manual) 2 % (20-45) L Monocytes % (Manual) 2 % (1-10) Eosinophils % (Manual) 0 % (0-3) Basophils % (Manual) 0 % (0-2) Band Neutrophils 0 % (0-8) Platelet Estimate Decreased L Platelet Morphology Normal Sodium Level 148 MMOL/L (136-145) H Potassium Level 3.8 MMOL/L (3.5-5.1) Chloride Level 110 MMOL/L (98-107) H Carbon Dioxide Level 30 MMOL/L (21-32) Anion Gap 8 mmol/L (5-15) Blood Urea Nitrogen 72 mg/dL (7-18) H Creatinine 3.7 MG/DL (0.55-1.30) H Estimat Glomerular Filtration Rate mL/min (>60) Glucose Level 99 MG/DL (74-106) Calcium Level 7.1 MG/DL (8.5-10.1) L Total Creatine Kinase 41 U/L (26-308) Current Medications Medications (Trade) Dose Ordered Sig/Phillip Route PRN Reason Start Time Stop Time Status Last Admin Dose Admin Acetaminophen (Tylenol) 500 mg Q4H PRN GT Mild Pain/Temp > 100.5 05/27/19 07:45 06/19/19 20:29 06/15/19 08:28 Amiodarone HCl (Cordarone) 200 mg DAILY ORAL 06/07/19 16:15 07/07/19 16:14 06/17/19 08:42 Chlorhexidine Gluconate (Reina-Hex 2%) 1 applic DAILY@1999 TOPIC 05/27/19 20:00 06/26/19 19:59 06/16/19 20:07 Clonidine HCl (Catapres Tab) 0.1 mg Q4H PRN GT For High Blood Pressure 06/13/19 18:45 07/13/19 18:44 06/16/19 16:19 Daptomycin 500 mg/ Sodium Chloride 55 ml @ 100 mls/hr Q48H IV 05/29/19 13:00 06/23/19 23:59 06/16/19 15:55 Lansoprazole (Prevacid) 30 mg BID NG 06/06/19 18:00 07/06/19 17:59 06/17/19 08:42 Methylprednisolone Sodium Succinate (Solu-MEDROL) 20 mg DAILY IVP 06/16/19 09:00 07/04/19 20:59 06/17/19 08:42 Metoprolol Tartrate (Lopressor) 5 mg Q5MIN X 3 IVP 06/07/19 16:15 07/07/19 16:14 06/16/19 16:06 Norepinephrine Bitartrate 4 mg/ Dextrose 250 ml @ 0 mls/hr Q24H IV 05/29/19 19:20 06/28/19 19:19 05/30/19 22:45 Vitamin D (Vitamin D) 5,000 intlu DAILY GT 06/07/19 13:00 07/07/19 12:59 06/17/19 08:42 Latha Lowe M.D. Jun 17, 2019 09:57
[2019-06-17] MEDS: Acetaminophen 650mg/20.3ml GT PRN (11:21)
--- NOTE | 2019-06-17 12:06 | Nephrology Progress Note ---
Assessment/Plan Problem List: (1) Renal failure (ARF), acute on chronic Assessment: Cr rising (2) Cellulitis of upper extremity (3) A-fib (4) Pneumonia (5) UTI (urinary tract infection) (6) Anemia Assessment: worsened (7) Hypothyroidism Assessment - KIMO on CKD - Urinary tract infection. - Anemia- - Dehydration. - Cellulitis of Upper extremity - HTN Plan taper steroids as possible dialysis last 06/14 - will observe renal parameters Trach 06/16 ! DC Midodrine DC IV IV Calcium and PO Vit D ad needed Transfuse one unit PRBcs in ICU- intubated BP meds and Mind altering meds discontinued On midodrine check vanco levels - hold vanco doses previously: Per cardiology Anemia kumari- Avoid Nephrotoxics Per ID Allow CHANDA inhibitor to continue as long as renal function does not worsen. PICC line has been removed. CXR: Increased right pleural effusion and similar left pleural effusion. Increased interstitial and hazy opacities throughout the lungs. Subjective ROS Limited/Unobtainable: Yes Objective Objective Last 24 Hour Vital Signs Date Time Temp Pulse Resp B/P (MAP) Pulse Ox O2 Delivery O2 Flow Rate FiO2 06/17/19 11:10 53 16 35 06/17/19 11:00 52 12 136/59 (84) 100 06/17/19 10:00 72 15 147/63 (91) 99 06/17/19 09:00 76 13 152/68 (96) 98 06/17/19 08:50 75 18 35 06/17/19 08:00 98.7 78 9 166/75 (105) 99 06/17/19 08:00 78 06/17/19 08:00 35 06/17/19 08:00 Mechanical Ventilator 06/17/19 07:05 75 28 35 06/17/19 07:00 71 15 161/82 (108) 99 06/17/19 06:00 70 0 152/79 (103) 98 06/17/19 05:25 69 26 35 06/17/19 05:00 70 3 153/71 (98) 98 06/17/19 04:00 98.2 71 6 158/67 (97) 98 06/17/19 04:00 65 06/17/19 04:00 Mechanical Ventilator 06/17/19 04:00 50 06/17/19 03:35 73 37 35 06/17/19 03:00 70 20 157/68 (97) 99 06/17/19 02:00 68 18 143/64 (90) 98 06/17/19 01:24 67 30 35 06/17/19 01:00 68 20 138/60 (86) 98 06/17/19 00:00 71 06/17/19 00:00 50 06/17/19 00:00 97.7 69 22 143/61 (88) 97 06/17/19 00:00 Mechanical Ventilator 06/16/19 23:37 70 35 35 06/16/19 23:00 71 28 146/64 (91) 96 06/16/19 22:00 70 27 155/67 (96) 98 06/16/19 21:46 67 28 35 06/16/19 21:00 63 20 131/59 (83) 98 06/16/19 20:00 Mechanical Ventilator 06/16/19 20:00 70 06/16/19 20:00 97.4 68 21 137/58 (84) 99 06/16/19 20:00 50 06/16/19 19:41 69 28 35 06/16/19 19:00 72 27 135/64 (87) 98 06/16/19 18:00 65 16 136/71 (92) 99 06/16/19 17:45 70 18 141/65 (90) 100 06/16/19 17:30 77 22 165/69 (101) 100 06/16/19 17:15 79 23 166/73 (104) 99 06/16/19 17:00 82 22 35 06/16/19 17:00 82 20 150/75 (100) 98 06/16/19 16:45 89 21 170/81 (110) 97 06/16/19 16:30 92 21 182/85 (117) 96 06/16/19 16:19 180/89 06/16/19 16:15 90 19 180/89 (119) 94 06/16/19 16:09 134 16 153/102 (119) 91 06/16/19 16:06 180 178/83 06/16/19 16:00 98.5 173 17 178/83 (114) 93 06/16/19 16:00 Mechanical Ventilator 06/16/19 16:00 188 06/16/19 16:00 50 06/16/19 15:52 142 16 167/128 (141) 92 06/16/19 15:45 166 16 170/82 (111) 93 06/16/19 15:40 123 16 195/98 (130) 93 06/16/19 15:38 134 17 192/99 (130) 93 06/16/19 15:00 91 16 171/75 (107) 97 06/16/19 14:59 89 17 35 06/16/19 14:58 79 12 100 06/16/19 14:54 83 16 145/68 (93) 99 06/16/19 14:00 72 24 06/16/19 13:22 49 16 35 06/16/19 13:00 67 16 124/46 (72) 99 Intake and Output 06/16/19 06/17/19 19:00 07:00 Intake Total 500 ml 0 ml Output Total 645 ml 540 ml Balance -145 ml -540 ml IV Total 500 ml Tube Feeding 0 ml 0 ml Output Urine Total 375 ml 490 ml Stool Total 270 ml 50 ml Laboratory Tests 06/17/19 03:30: White Blood Count 8.0, Red Blood Count 2.76L, Hemoglobin 8.5L, Hematocrit 25.0L , Mean Corpuscular Volume 90, Mean Corpuscular Hemoglobin 30.8, Mean Corpuscular Hemoglobin Concent 34.1, Red Cell Distribution Width 15.0H, Platelet Count 105L, Mean Platelet Volume 5.9L, Neutrophils (%) (Auto) , Lymphocytes (%) (Auto) , Monocytes (%) (Auto) , Eosinophils (%) (Auto) , Basophils (%) (Auto) , Differential Total Cells Counted 100, Neutrophils % ( Manual) 96H, Lymphocytes % (Manual) 2L, Monocytes % (Manual) 2, Eosinophils % ( Manual) 0, Basophils % (Manual) 0, Band Neutrophils 0, Platelet Estimate DecreasedL, Platelet Morphology Normal, Sodium Level 148H, Potassium Level 3.8, Chloride Level 110H, Carbon Dioxide Level 30, Anion Gap 8, Blood Urea Nitrogen 72H, Creatinine 3.7H, Estimat Glomerular Filtration Rate , Glucose Level 99, Calcium Level 7.1L, Total Creatine Kinase 41 Height (Feet): 5 Height (Inches): 7.00 Weight (Pounds): 183 General Appearance: no apparent distress EENT: other - trached Respiratory/Chest: decreased breath sounds Abdomen: soft Objective no change Fouladian,Reinier MD Jun 17, 2019 12:06
--- NOTE | 2019-06-17 12:19 | Pulmonology Progress Note ---
Assessment/Plan Assessment/Plan IMPRESSION AND PLAN: 1. Pneumonia. Bilateral upper lobe. 2. Cellulitis. 3. History of COPD. 4. Hypertension. 5. Afib with RVR; rate controlled 6. Respiratory failure; on vent; unable to wean DISCUSSION: 1. S/p trach; 2. Agree with present management and care. 3. Continue medications and HHN with atrovent only Arsen Whittaker M.D. Subjective Interval Events: S/p trach Constitutional: Reports: no symptoms HEENT: Repors: no symptoms Respiratory: Reports: no symptoms Cardiovascular: Reports: no symptoms Gastrointestinal/Abdominal: Reports: no symptoms Allergies: Coded Allergies: No Known Allergies (Unverified , 05/18/19) Objective Last 24 Hour Vital Signs Date Time Temp Pulse Resp B/P (MAP) Pulse Ox O2 Delivery O2 Flow Rate FiO2 06/17/19 11:10 53 16 35 06/17/19 11:00 52 12 136/59 (84) 100 06/17/19 10:00 72 15 147/63 (91) 99 06/17/19 09:00 76 13 152/68 (96) 98 06/17/19 08:50 75 18 35 06/17/19 08:00 98.7 78 9 166/75 (105) 99 06/17/19 08:00 78 06/17/19 08:00 35 06/17/19 08:00 Mechanical Ventilator 06/17/19 07:05 75 28 35 06/17/19 07:00 71 15 161/82 (108) 99 06/17/19 06:00 70 0 152/79 (103) 98 06/17/19 05:25 69 26 35 06/17/19 05:00 70 3 153/71 (98) 98 06/17/19 04:00 98.2 71 6 158/67 (97) 98 06/17/19 04:00 65 06/17/19 04:00 Mechanical Ventilator 06/17/19 04:00 50 06/17/19 03:35 73 37 35 06/17/19 03:00 70 20 157/68 (97) 99 06/17/19 02:00 68 18 143/64 (90) 98 06/17/19 01:24 67 30 35 06/17/19 01:00 68 20 138/60 (86) 98 06/17/19 00:00 71 06/17/19 00:00 50 06/17/19 00:00 97.7 69 22 143/61 (88) 97 06/17/19 00:00 Mechanical Ventilator 06/16/19 23:37 70 35 35 06/16/19 23:00 71 28 146/64 (91) 96 06/16/19 22:00 70 27 155/67 (96) 98 06/16/19 21:46 67 28 35 06/16/19 21:00 63 20 131/59 (83) 98 06/16/19 20:00 Mechanical Ventilator 06/16/19 20:00 70 06/16/19 20:00 97.4 68 21 137/58 (84) 99 06/16/19 20:00 50 06/16/19 19:41 69 28 35 06/16/19 19:00 72 27 135/64 (87) 98 06/16/19 18:00 65 16 136/71 (92) 99 06/16/19 17:45 70 18 141/65 (90) 100 06/16/19 17:30 77 22 165/69 (101) 100 06/16/19 17:15 79 23 166/73 (104) 99 06/16/19 17:00 82 22 35 06/16/19 17:00 82 20 150/75 (100) 98 06/16/19 16:45 89 21 170/81 (110) 97 06/16/19 16:30 92 21 182/85 (117) 96 06/16/19 16:19 180/89 06/16/19 16:15 90 19 180/89 (119) 94 06/16/19 16:09 134 16 153/102 (119) 91 06/16/19 16:06 180 178/83 06/16/19 16:00 98.5 173 17 178/83 (114) 93 06/16/19 16:00 Mechanical Ventilator 06/16/19 16:00 188 06/16/19 16:00 50 06/16/19 15:52 142 16 167/128 (141) 92 06/16/19 15:45 166 16 170/82 (111) 93 1/20/20 15:40 123 16 195/98 (130) 93 06/16/19 15:38 134 17 192/99 (130) 93 06/16/19 15:00 91 16 171/75 (107) 97 06/16/19 14:59 89 17 35 06/16/19 14:58 79 12 100 06/16/19 14:54 83 16 145/68 (93) 99 06/16/19 14:00 72 24 06/16/19 13:22 49 16 35 06/16/19 13:00 67 16 124/46 (72) 99 Intake and Output 06/16/19 06/17/19 19:00 07:00 Intake Total 500 ml 0 ml Output Total 645 ml 540 ml Balance -145 ml -540 ml IV Total 500 ml Tube Feeding 0 ml 0 ml Output Urine Total 375 ml 490 ml Stool Total 270 ml 50 ml General Appearance: no acute distress HEENT: normocephalic, status post trach Respiratory/Chest: chest wall non-tender, lungs clear Cardiovascular: normal peripheral pulses Laboratory Tests 06/17/19 03:30: White Blood Count 8.0, Red Blood Count 2.76L, Hemoglobin 8.5L, Hematocrit 25.0L , Mean Corpuscular Volume 90, Mean Corpuscular Hemoglobin 30.8, Mean Corpuscular Hemoglobin Concent 34.1, Red Cell Distribution Width 15.0H, Platelet Count 105L, Mean Platelet Volume 5.9L, Neutrophils (%) (Auto) , Lymphocytes (%) (Auto) , Monocytes (%) (Auto) , Eosinophils (%) (Auto) , Basophils (%) (Auto) , Differential Total Cells Counted 100, Neutrophils % ( Manual) 96H, Lymphocytes % (Manual) 2L, Monocytes % (Manual) 2, Eosinophils % ( Manual) 0, Basophils % (Manual) 0, Band Neutrophils 0, Platelet Estimate DecreasedL, Platelet Morphology Normal, Sodium Level 148H, Potassium Level 3.8, Chloride Level 110H, Carbon Dioxide Level 30, Anion Gap 8, Blood Urea Nitrogen 72H, Creatinine 3.7H, Estimat Glomerular Filtration Rate , Glucose Level 99, Calcium Level 7.1L, Total Creatine Kinase 41 Current Medications Medications (Trade) Dose Ordered Sig/Phillip Route PRN Reason Start Time Stop Time Status Last Admin Dose Admin Acetaminophen (Tylenol) 500 mg Q4H PRN GT Mild Pain/Temp > 100.5 05/27/19 07:45 06/19/19 20:29 06/17/19 11:21 Amiodarone HCl (Cordarone) 200 mg DAILY ORAL 06/07/19 16:15 07/07/19 16:14 06/17/19 08:42 Chlorhexidine Gluconate (Reina-Hex 2%) 1 applic DAILY@2000 TOPIC 05/27/19 20:00 06/26/19 19:59 06/16/19 20:07 Clonidine HCl (Catapres Tab) 0.1 mg Q4H PRN GT For High Blood Pressure 06/13/19 18:45 07/13/19 18:44 06/16/19 16:19 Daptomycin 500 mg/ Sodium Chloride 55 ml @ 100 mls/hr Q48H IV 05/29/19 13:00 06/23/19 23:59 06/16/19 15:55 Lansoprazole (Prevacid) 30 mg BID NG 06/06/19 18:00 07/06/19 17:59 06/17/19 08:42 Methylprednisolone Sodium Succinate (Solu-MEDROL) 20 mg DAILY IVP 06/16/19 09:00 07/04/19 20:59 06/17/19 08:42 Metoprolol Tartrate (Lopressor) 5 mg Q5MIN X 3 IVP 06/07/19 16:15 07/07/19 16:14 06/16/19 16:06 Norepinephrine Bitartrate 4 mg/ Dextrose 250 ml @ 0 mls/hr Q24H IV 05/29/19 19:20 06/28/19 19:19 05/30/19 22:45 Vitamin D (Vitamin D) 5,000 intlu DAILY GT 06/07/19 13:00 07/07/19 12:59 06/17/19 08:42 Arsen Whittaker MD Jun 17, 2019 12:18
--- NOTE | 2019-06-17 12:50 | Surgery Progress Note ---
Surgery Progress Note Subjective Procedure Performed tracheostomy Additional Comments no acute events doing well since surgery weaning but still not tolerating Objective Last 24 Hour Vital Signs Date Time Temp Pulse Resp B/P (MAP) Pulse Ox O2 Delivery O2 Flow Rate FiO2 06/17/19 12:00 98.0 73 0 132/64 (86) 99 06/17/19 12:00 Mechanical Ventilator 06/17/19 12:00 35 06/17/19 12:00 73 06/17/19 11:10 53 16 35 06/17/19 11:00 52 12 136/59 (84) 100 06/17/19 10:00 72 15 147/63 (91) 99 06/17/19 09:00 76 13 152/68 (96) 98 06/17/19 08:50 75 18 35 06/17/19 08:00 98.7 78 9 166/75 (105) 99 06/17/19 08:00 78 06/17/19 08:00 35 06/17/19 08:00 Mechanical Ventilator 06/17/19 07:05 75 28 35 06/17/19 07:00 71 15 161/82 (108) 99 06/17/19 06:00 70 0 152/79 (103) 98 06/17/19 05:25 69 26 35 06/17/19 05:00 70 3 153/71 (98) 98 06/17/19 04:00 98.2 71 6 158/67 (97) 98 06/17/19 04:00 65 06/17/19 04:00 Mechanical Ventilator 06/17/19 04:00 50 06/17/19 03:35 73 37 35 06/17/19 03:00 70 20 157/68 (97) 99 06/17/19 02:00 68 18 143/64 (90) 98 06/17/19 01:24 67 30 35 06/17/19 01:00 68 20 138/60 (86) 98 06/17/19 00:00 71 06/17/19 00:00 50 06/17/19 00:00 97.7 69 22 143/61 (88) 97 06/17/19 00:00 Mechanical Ventilator 06/16/19 23:37 70 35 35 06/16/19 23:00 71 28 146/64 (91) 96 06/16/19 22:00 70 27 155/67 (96) 98 06/16/19 21:46 67 28 35 06/16/19 21:00 63 20 131/59 (83) 98 06/16/19 20:00 Mechanical Ventilator 06/16/19 20:00 70 06/16/19 20:00 97.4 68 21 137/58 (84) 99 06/16/19 20:00 50 06/16/19 19:41 69 28 35 06/16/19 19:00 72 27 135/64 (87) 98 06/16/19 18:00 65 16 136/71 (92) 99 06/16/19 17:45 70 18 141/65 (90) 100 06/16/19 17:30 77 22 165/69 (101) 100 06/16/19 17:15 79 23 166/73 (104) 99 06/16/19 17:00 82 22 35 06/16/19 17:00 82 20 150/75 (100) 98 06/16/19 16:45 89 21 170/81 (110) 97 06/16/19 16:30 92 21 182/85 (117) 96 06/16/19 16:19 180/89 06/16/19 16:15 90 19 180/89 (119) 94 06/16/19 16:09 134 16 153/102 (119) 91 06/16/19 16:06 180 178/83 06/16/19 16:00 98.5 173 17 178/83 (114) 93 06/16/19 16:00 Mechanical Ventilator 06/16/19 16:00 188 06/16/19 16:00 50 06/16/19 15:52 142 16 167/128 (141) 92 06/16/19 15:45 166 16 170/82 (111) 93 06/16/19 15:40 123 16 195/98 (130) 93 06/16/19 15:38 134 17 192/99 (130) 93 06/16/19 15:00 91 16 171/75 (107) 97 06/16/19 14:59 89 17 35 06/16/19 14:58 79 12 100 06/16/19 14:54 83 16 145/68 (93) 99 06/16/19 14:00 72 24 06/16/19 13:22 49 16 35 06/16/19 13:00 67 16 124/46 (72) 99 I&O Intake and Output 06/16/19 06/17/19 19:00 07:00 Intake Total 500 ml 0 ml Output Total 645 ml 540 ml Balance -145 ml -540 ml IV Total 500 ml Tube Feeding 0 ml 0 ml Output Urine Total 375 ml 490 ml Stool Total 270 ml 50 ml Dressing: saturated Wound: clean Cardiovascular: RSR Respiratory: clear Abdomen: soft, non-tender, present bowel sounds Extremities: no cyanosis Laboratory Tests Test 06/17/19 03:30 White Blood Count 8.0 K/UL (4.8-10.8) Red Blood Count 2.76 M/UL (4.70-6.10) L Hemoglobin 8.5 G/DL (14.2-18.0) L Hematocrit 25.0 % (42.0-52.0) L Mean Corpuscular Volume 90 FL (80-99) Mean Corpuscular Hemoglobin 30.8 PG (27.0-31.0) Mean Corpuscular Hemoglobin Concent 34.1 G/DL (32.0-36.0) Red Cell Distribution Width 15.0 % (11.6-14.8) H Platelet Count 105 K/UL (150-450) L Mean Platelet Volume 5.9 FL (6.5-10.1) L Neutrophils (%) (Auto) % (45.0-75.0) Lymphocytes (%) (Auto) % (20.0-45.0) Monocytes (%) (Auto) % (1.0-10.0) Eosinophils (%) (Auto) % (0.0-3.0) Basophils (%) (Auto) % (0.0-2.0) Differential Total Cells Counted 100 Neutrophils % (Manual) 96 % (45-75) H Lymphocytes % (Manual) 2 % (20-45) L Monocytes % (Manual) 2 % (1-10) Eosinophils % (Manual) 0 % (0-3) Basophils % (Manual) 0 % (0-2) Band Neutrophils 0 % (0-8) Platelet Estimate Decreased L Platelet Morphology Normal Sodium Level 148 MMOL/L (136-145) H Potassium Level 3.8 MMOL/L (3.5-5.1) Chloride Level 110 MMOL/L (98-107) H Carbon Dioxide Level 30 MMOL/L (21-32) Anion Gap 8 mmol/L (5-15) Blood Urea Nitrogen 72 mg/dL (7-18) H Creatinine 3.7 MG/DL (0.55-1.30) H Estimat Glomerular Filtration Rate mL/min (>60) Glucose Level 99 MG/DL (74-106) Calcium Level 7.1 MG/DL (8.5-10.1) L Total Creatine Kinase 41 U/L (26-308) Plan Problems: (1) Cellulitis of upper extremity Assessment & Plan: 84M with RUE cellulitis, edema, erythema. no drainage. has RUE picc line recommend removal of picc. removed at bedside by myself on 05/18. pressure held, hemostasis noted, dressings applied. cath tip sent for cultures DVT duplex studies with acute thrombus IV Abx as per ID UA pending Cx results keep RUE elevated on pillows okay for diet AM labs anticoagulation off load pressure for dti noted cellulitis and edema improved deteriorated intubated on vent support likely respiratory insufficiency labs ordered wean vent okay for tube feeds via ng - cont as tolerated wean vent am labs HD as per renal now with right IJ Temp HD cath will follow with recs thank you (2) Cellulitis Assessment & Plan: Pt presented on admission with reabsorbing blister lateral R heel. Base of injury indurated with delineated margins(L)4cm x (W)3cm.Non- blanching erythema Sacrum ,R and L buttocks(L)8.5cm x (W)9cm, with a partial thickness pressure injury noted to L buttocks. Base of wound is moist and viable (L)2.3cm x (W)3cm. Area around wound tender when minimally palpated. Pt noted to be wearing splint L foot. Per pt he fractured foot a few weeks ago. Splint removed to assess skin integrity. L heel and malleoli are pink and blanchable.Cavilon Skin Barrier applied to L heel and malleoli and each area covered with Optifoam drsg. Splint reapplied. No other skin concerns noted. unchanged Partial Thickness pressure injury L buttocks resolved . Non-blanching erythema without induration noted to Sacrum,R and L buttocks. (L)8cm x (W)9cm. Scrotum is grossly enlarged and is erythematous and macerated. Penile shaft is grossly swollen .Pt noted to have a partially opened blood blister with 25% biofilm at base of shaft of penis.(L)4.5cm x (W)2.5cm. Bilat groin, medial /posterior aspects of both upper thighs are erythematous and denuded. R lower ext edematous. R heel blister reabsorbed. Non--blanching erythema without induration noted to R heel. Splint removed from L foot. Optifoam drsgs removed from malleoli and heel. Pt noted to have developed several DTPI's despite having Optifoam drsgs. DTPI noted to L achilles . Base of wound is purple and fluctuant (L)0.6cm x (W) 2.7cm.DTPI noted to medial L malleolus(L)0.2cm x (W)0.3cm.Base of wound is purple with marginal erythema. DTPI noted to dorsal L foot. Base of wound is purple with marginal erythema along borders (L)0.9cm x (W)0.5cm.L heel is boggy with non-blanching erythema. Cavilon Skin Barrier applied to affected areas on L foot . Dorsal L foot ,Achilles .R and L malleoli and L heel each covered with Optifoam drsg. Non-blanching erythema without induration noted to lateral L tibia. At plantar aspect of L hallux small dry eschar noted. No erythema or fluctuance periwound. (L)0.5cm x (W)0.4cm. IN addition to Optifoam drsgs placed over each bony prominence of L foot ABD pads placed over dorsal and plantar L foot , Abd pads aligned along L tibia. Splint realigned to L foot Wrapped loosely with Kerlix then wrapped loosely with [place] wrap. L foot floated off mattress with pillow. Tx.Plan: Apply Cavilon to Dorsal L foot. L achilles .Medial/Lateral Malleoli L Foot and L heel. Cover each site with Optifoam drsg. Change every 7 days and prn. Apply Cavilon Plantar L foot. Cover with Optifoam drsg. Change every 7 days and prn. Apply Moisture Barrier Paste to sacrum. Cover with Optifoam drsg. Changee very 7 days and prn. Apply Cavilon Skin Barrier to Both heels. Cover each heel with Optifoam drsg. Change every 7 days and prn. Cleanse wound Shaft of penis with saline. Apply Moisture Barrier Paste Daily and prn. Apply Moisture Barrier Paste to Bilat groin, Scrotum, Medial/Posterior aspects of both upper thighs with each perineal care. Reposition at least every 2hours or as tolerated. Off-load heels with pillows. APM/LA L Mattress overlay. (3) SOB (shortness of breath) Assessment & Plan: Unfortunately patient has been in the intensive care unit on ventilatory support unable to be weaned from vent. Will likely require prolonged ventilatory support. Respiratory insufficiency not improving. Patient is full code as per identifiable documentation in patient's chart and medical record. No family or next kin available. Given patient's wishes current condition and course of a care tracheostomy is indicated recommended. Tracheostomy would be medically necessary as a next step in patient's care plan. s/p trach wean vent Bennett Logan Jun 17, 2019 12:50
--- NOTE | 2019-06-17 15:47 | 48 Hour Post Anesthesia Eval ---
Post Anesthesia Evaluation Procedure: Tracheostomy Date of Evaluation: Jun 17, 2019 Time of Evaluation: 15:46 Blood Pressure Systolic: 150 0: 70 Pulse Rate: 80 Respiratory Rate: 16 Temperature (Fahrenheit): 98 O2 Sat by Pulse Oximetry: 100 Airway: patent Nausea: No Vomiting: No Pain Intensity: 0 Hydration Status: adequate Cardiopulmonary Status: Stable Mental Status/LOC: patient returned to baseline Follow-up Care/Observations: 0 Post-Anesthesia Complications: 0 Follow-up care needed: N/A Lawrence Carney MD Jun 17, 2019 15:47
[2019-06-17] MEDS ORDERED: Acetaminophen 650mg/20.3ml GT PRN (19:43)
[2019-06-17] MEDS ORDERED: Metoprolol Tartrate 5mg/5ml Inj IVP SCH (19:45)
[2019-06-17] MEDS: Dyna-Hex 2% Top Sol 2oz TOPIC SCH (20:26)
--- NOTE | 2019-06-17 21:13 | General Progress Note ---
Assessment/Plan Problem List: (1) SOB (shortness of breath) ICD Codes: R06.02 - Shortness of breath SNOMED: 715261960 (2) Cellulitis ICD Codes: L03.90 - Cellulitis, unspecified SNOMED: 670906671 (3) Cellulitis of upper extremity ICD Codes: L03.119 - Cellulitis of unspecified part of limb SNOMED: 416448262 Qualifiers: Qualified Codes: L03.113 - Cellulitis of right upper limb (4) Renal insufficiency ICD Codes: N28.9 - Disorder of kidney and ureter, unspecified SNOMED: 727942602, 301296009 (5) Renal failure (ARF), acute on chronic ICD Codes: N17.9 - Acute kidney failure, unspecified; N18.9 - Chronic kidney disease, unspecified SNOMED: 908884456 (6) Anemia ICD Codes: D64.9 - Anemia, unspecified SNOMED: 562488951 (7) Hypothyroidism ICD Codes: E03.9 - Hypothyroidism, unspecified SNOMED: 29434406 (8) UTI (urinary tract infection) ICD Codes: N39.0 - Urinary tract infection, site not specified SNOMED: 60228494 Status: progressing, unchanged, deteriorating Assessment/Plan: resp failure trach very poor prognosis lethargic chf pna sepsis no lwound and le fracture Subjective ROS Limited/Unobtainable: Yes Allergies: Coded Allergies: No Known Allergies (Unverified , 05/18/19) Objective Last 24 Hour Vital Signs Date Time Temp Pulse Resp B/P (MAP) Pulse Ox O2 Delivery O2 Flow Rate FiO2 06/17/19 19:39 72 20 35 06/17/19 18:00 98.4 49 18 142/61 (88) 100 06/17/19 17:29 62 25 35 06/17/19 17:00 67 18 151/81 (104) 100 06/17/19 16:00 Mechanical Ventilator 06/17/19 16:00 67 06/17/19 16:00 54 16 117/55 (75) 100 06/17/19 16:00 35 06/17/19 15:47 80 16 100 06/17/19 15:26 80 16 35 06/17/19 15:00 80 16 150/70 (96) 100 06/17/19 14:00 55 16 149/65 (93) 100 06/17/19 13:00 61 0 116/62 (80) 99 06/17/19 12:41 53 16 35 06/17/19 12:00 98.0 73 0 132/64 (86) 99 06/17/19 12:00 Mechanical Ventilator 06/17/19 12:00 35 06/17/19 12:00 73 06/17/19 11:10 53 16 35 06/17/19 11:00 52 12 136/59 (84) 100 06/17/19 10:00 72 15 147/63 (91) 99 06/17/19 09:00 76 13 152/68 (96) 98 06/17/19 08:50 75 18 35 06/17/19 08:00 98.7 78 9 166/75 (105) 99 06/17/19 08:00 78 06/17/19 08:00 35 06/17/19 08:00 Mechanical Ventilator 06/17/19 07:05 75 28 35 06/17/19 07:00 71 15 161/82 (108) 99 06/17/19 06:00 70 0 152/79 (103) 98 06/17/19 05:25 69 26 35 06/17/19 05:00 70 3 153/71 (98) 98 06/17/19 04:00 98.2 71 6 158/67 (97) 98 06/17/19 04:00 65 06/17/19 04:00 Mechanical Ventilator 06/17/19 04:00 50 06/17/19 03:35 73 37 35 06/17/19 03:00 70 20 157/68 (97) 99 06/17/19 02:00 68 18 143/64 (90) 98 06/17/19 01:24 67 30 35 06/17/19 01:00 68 20 138/60 (86) 98 06/17/19 00:00 71 06/17/19 00:00 50 06/17/19 00:00 97.7 69 22 143/61 (88) 97 06/17/19 00:00 Mechanical Ventilator 06/16/19 23:37 70 35 35 06/16/19 23:00 71 28 146/64 (91) 96 06/16/19 22:00 70 27 155/67 (96) 98 06/16/19 21:46 67 28 35 Intake and Output 06/16/19 06/17/19 19:00 07:00 Intake Total 500 ml 0 ml Output Total 645 ml 540 ml Balance -145 ml -540 ml IV Total 500 ml Tube Feeding 0 ml 0 ml Output Urine Total 375 ml 490 ml Stool Total 270 ml 50 ml Laboratory Tests 06/17/19 03:30: White Blood Count 8.0, Red Blood Count 2.76L, Hemoglobin 8.5L, Hematocrit 25.0L , Mean Corpuscular Volume 90, Mean Corpuscular Hemoglobin 30.8, Mean Corpuscular Hemoglobin Concent 34.1, Red Cell Distribution Width 15.0H, Platelet Count 105L, Mean Platelet Volume 5.9L, Neutrophils (%) (Auto) , Lymphocytes (%) (Auto) , Monocytes (%) (Auto) , Eosinophils (%) (Auto) , Basophils (%) (Auto) , Differential Total Cells Counted 100, Neutrophils % ( Manual) 96H, Lymphocytes % (Manual) 2L, Monocytes % (Manual) 2, Eosinophils % ( Manual) 0, Basophils % (Manual) 0, Band Neutrophils 0, Platelet Estimate DecreasedL, Platelet Morphology Normal, Sodium Level 148H, Potassium Level 3.8, Chloride Level 110H, Carbon Dioxide Level 30, Anion Gap 8, Blood Urea Nitrogen 72H, Creatinine 3.7H, Estimat Glomerular Filtration Rate , Glucose Level 99, Calcium Level 7.1L, Total Creatine Kinase 41 Height (Feet): 5 Height (Inches): 7.00 Weight (Pounds): 183 Respiratory/Chest: rhonchi - bilaterally Abdomen: soft Joslyn Wiggins MD Jun 17, 2019 21:13
--- NOTE | 2019-06-17 23:55 | Cardiology Progress Note ---
Assessment/Plan Assessment/Plan 1. SVT resolved now in sinus rhythm. 2. Paroxysmal atrial fibrillation now in sinus rhythm,continue amiodarone. 3. Septic shock, resolved, likely due to bilateral PNA. 4. Oliguric acute kidney injury, CXR shows B/L pulmonary edema, on HD. 5. Small pericardial effusion with pleural effusion, s/p HD. 6. B/L pleural effusion. 7. Ventilatory derived respiratory failure, s/p tracheostomy tube placement. 8. Dysphagia, s/p PEG placement. 9. Anemia. Subjective Subjective Sinus rhythm at rate of 75. Objective Last 24 Hour Vital Signs Date Time Temp Pulse Resp B/P (MAP) Pulse Ox O2 Delivery O2 Flow Rate FiO2 06/17/19 22:48 75 32 35 06/17/19 21:28 58 17 35 06/17/19 20:09 85 06/17/19 20:00 Mechanical Ventilator 06/17/19 20:00 35 06/17/19 20:00 98.2 81 22 143/79 (100) 99 06/17/19 19:39 72 20 35 06/17/19 18:00 98.4 49 18 142/61 (88) 100 06/17/19 17:29 62 25 35 06/17/19 17:00 67 18 151/81 (104) 100 06/17/19 16:00 Mechanical Ventilator 06/17/19 16:00 67 06/17/19 16:00 54 16 117/55 (75) 100 06/17/19 16:00 35 06/17/19 15:47 80 16 100 06/17/19 15:26 80 16 35 06/17/19 15:00 80 16 150/70 (96) 100 06/17/19 14:00 55 16 149/65 (93) 100 06/17/19 13:00 61 0 116/62 (80) 99 06/17/19 12:41 53 16 35 06/17/19 12:00 98.0 73 0 132/64 (86) 99 06/17/19 12:00 Mechanical Ventilator 06/17/19 12:00 35 06/17/19 12:00 73 06/17/19 11:10 53 16 35 06/17/19 11:00 52 12 136/59 (84) 100 06/17/19 10:00 72 15 147/63 (91) 99 06/17/19 09:00 76 13 152/68 (96) 98 06/17/19 08:50 75 18 35 06/17/19 08:00 98.7 78 9 166/75 (105) 99 06/17/19 08:00 78 06/17/19 08:00 35 06/17/19 08:00 Mechanical Ventilator 06/17/19 07:05 75 28 35 06/17/19 07:00 71 15 161/82 (108) 99 06/17/19 06:00 70 0 152/79 (103) 98 06/17/19 05:25 69 26 35 06/17/19 05:00 70 3 153/71 (98) 98 06/17/19 04:00 98.2 71 6 158/67 (97) 98 06/17/19 04:00 65 06/17/19 04:00 Mechanical Ventilator 06/17/19 04:00 50 06/17/19 03:35 73 37 35 06/17/19 03:00 70 20 157/68 (97) 99 06/17/19 02:00 68 18 143/64 (90) 98 06/17/19 01:24 67 30 35 06/17/19 01:00 68 20 138/60 (86) 98 06/17/19 00:00 71 06/17/19 00:00 50 06/17/19 00:00 97.7 69 22 143/61 (88) 97 06/17/19 00:00 Mechanical Ventilator Intake and Output 06/16/19 06/17/19 19:00 07:00 Intake Total 500 ml 0 ml Output Total 645 ml 540 ml Balance -145 ml -540 ml IV Total 500 ml Tube Feeding 0 ml 0 ml Output Urine Total 375 ml 490 ml Stool Total 270 ml 50 ml 2D Echo: EF 65%,Mod AR,Elevated RAP, RVSP 30,Small pericardial eff, pleural effusion Laboratory Tests Test 06/17/19 03:30 White Blood Count 8.0 K/UL (4.8-10.8) Red Blood Count 2.76 M/UL (4.70-6.10) L Hemoglobin 8.5 G/DL (14.2-18.0) L Hematocrit 25.0 % (42.0-52.0) L Mean Corpuscular Volume 90 FL (80-99) Mean Corpuscular Hemoglobin 30.8 PG (27.0-31.0) Mean Corpuscular Hemoglobin Concent 34.1 G/DL (32.0-36.0) Red Cell Distribution Width 15.0 % (11.6-14.8) H Platelet Count 105 K/UL (150-450) L Mean Platelet Volume 5.9 FL (6.5-10.1) L Neutrophils (%) (Auto) % (45.0-75.0) Lymphocytes (%) (Auto) % (20.0-45.0) Monocytes (%) (Auto) % (1.0-10.0) Eosinophils (%) (Auto) % (0.0-3.0) Basophils (%) (Auto) % (0.0-2.0) Differential Total Cells Counted 100 Neutrophils % (Manual) 96 % (45-75) H Lymphocytes % (Manual) 2 % (20-45) L Monocytes % (Manual) 2 % (1-10) Eosinophils % (Manual) 0 % (0-3) Basophils % (Manual) 0 % (0-2) Band Neutrophils 0 % (0-8) Platelet Estimate Decreased L Platelet Morphology Normal Sodium Level 148 MMOL/L (136-145) H Potassium Level 3.8 MMOL/L (3.5-5.1) Chloride Level 110 MMOL/L (98-107) H Carbon Dioxide Level 30 MMOL/L (21-32) Anion Gap 8 mmol/L (5-15) Blood Urea Nitrogen 72 mg/dL (7-18) H Creatinine 3.7 MG/DL (0.55-1.30) H Estimat Glomerular Filtration Rate mL/min (>60) Glucose Level 99 MG/DL (74-106) Calcium Level 7.1 MG/DL (8.5-10.1) L Total Creatine Kinase 41 U/L (26-308) Objective HEENT: Atraumatic and normocephalic. Anicteric. Pupils are equal, round, and reactive to light and accommodation. Extraocular muscles intact. NECK: JVP less than 5 cm. No carotid bruit. Carotid upstroke is 2+ bilaterally. + trach in place. CARDIOVASCULAR: Normal S1, S2. Regular rate and rhythm. No murmurs, gallops, or rubs. PMI is at fourth intercostal space in the midclavicular line. LUNGS: Diminished both bases. ABDOMEN: Soft, nontender, and nondistended. No hepatosplenomegaly. Positive bowel sounds. + PEG in place. EXTREMITIES: No evidence of edema, clubbing, or cyanosis. Del Garcia MD Jun 17, 2019 23:55
[2019-06-18] VITALS (7 sets, daily range): BP systolic 132–154; BP diastolic 60–91
[2019-06-18 04:48] LABS: HEMATOCRIT 21.9 % (42.0-52.0); HEMOGLOBIN 7.5 G/DL (14.2-18.0); MEAN CORPUSCULAR VOLUME 90 FL (80-99); PLATELET COUNT 89 K/UL (150-450); RED BLOOD COUNT 2.42 M/UL (4.70-6.10); RED CELL DISTRIBUTION WIDTH 14.9 % (11.6-14.8); WHITE BLOOD COUNT 6.7 K/UL (4.8-10.8)
[2019-06-18 05:01] LABS: ALANINE AMINOTRANSFERASE 37 U/L (12-78); ALBUMIN 1.4 G/DL (3.4-5.0); ALBUMIN/GLOBULIN RATIO 0.5 (1.0-2.7); ALKALINE PHOSPHATASE 67 U/L (46-116); ANION GAP 5 mmol/L (5-15); ASPARTATE AMINO TRANSFERASE 38 U/L (15-37); BILIRUBIN,TOTAL 0.3 MG/DL (0.2-1.0); BLOOD UREA NITROGEN 79 mg/dL (7-18); CARBON DIOXIDE 33 MMOL/L (21-32); CHLORIDE 112 MMOL/L (98-107); CREATININE 3.9 MG/DL (0.55-1.30); PHOSPHORUS 3.7 MG/DL (2.5-4.9); POTASSIUM 3.6 MMOL/L (3.5-5.1); SODIUM 149 MMOL/L (136-145)
--- NOTE | 2019-06-18 06:58 | Hematology/Onc Progress Note ---
Assessment/Plan Assessment/Plan # Anemia of chronic disease due to underlying chronic medical issues, multifactorial v Gi bleed --> Anemia workup has been reviewed, rule out gi bleed --> No evidence of hemolysis is noted, peripheral smear has been reviewed. --> Hgb goal >7. Transfuse prn. --> Epogen or iron at this time is not particularly indicated --> Medications have been reviewed --> low threshold for gi evaluation in case has occult + --> hgb trend: 9.3-->9.7-->8.1-->7.6-->8-->9.4-->9.2->7.5-->9.3-->8-->8.1-->8.6- ->7.8-->8.3-->7.6-->8.2-->8.6 --> transf 05/28/19 with 1 unit prbc, 1 unit on 06/03 --> transfusion is a emergency, no family, no poa, is okay to transfuse # Right upper arm extremity axillary vein dvt --> agree to continue eliquis --> continue for total of minimum of 3 months --> rescan arm in 3 mo # Thrombocytopenia is due to infection, i.e. cellulitis of upper extremity, likely picc line infection --> as per id on ax --> picc off --> levoflox/vanc-->zosyn/vanc--> zosyn-->dapto/zosyn --> plt trend 208-->132-->146k-->159-->217-->211-->145-->117-->145 # Respiratory failure s/p vent --> has been failing weaning --> trach 06/16 # Renal insufficiency --> per Dr. Mera # Pneumonia --> abx per id # Dehydration. --> goal of euvolemia # Paroxysmal Atrial fibrillation with rapid ventricular response was on amiodarone gtt, now in sinus rhythm. --> per cards On PO amiodarone 200 bid, Lopressor 25 bid # Dysphagia with ng tube --> s/p peg 06/13 # Septic shock --> has required icu admission, and pressor # Dvt ppx eliquis--> continued The timing of this note does not necessarily reflect the time of the patient was seen. Greatly appreciate consultation. Subjective Constitutional: Denies: no symptoms, chills, fever, malaise, weakness, other HEENT: Denies: no symptoms, eye pain, blurred vision, tearing, double vision, ear pain, ear discharge, nose pain, nose congestion, throat pain, throat swelling, mouth pain, mouth swelling, other Cardiovascular: Denies: no symptoms, chest pain, edema, irregular heart rate, lightheadedness, palpitations, syncope, other Respiratory: Denies: no symptoms, cough, shortness of breath, SOB with excertion, SOB at rest, sputum, wheezing, other Gastrointestinal/Abdominal: Denies: no symptoms, abdomen distended, abdominal pain, black stools, tarry stools, blood in stool, constipated, diarrhea, difficulty swallowing, nausea, poor appetite, poor fluid intake, rectal bleeding , vomiting, other Genitourinary: Denies: no symptoms, burning, discharge, frequency, flank pain, hematuria, incontinence, pain, urgency, other Neurologic/Psychiatric: Denies: no symptoms, anxiety, depressed, emotional problems, headache, numbness, paresthesia, pre-existing deficit, seizure, tingling, tremors, weakness, other Endocrine: Denies: no symptoms, excessive sweating, flushing, intolerance to cold, intolerance to heat, increased hunger, increased thirst, increased urine, unexplained weight gain, unexplained weight loss, other Allergies: Coded Allergies: No Known Allergies (Unverified , 05/18/19) Subjective 05/24: awake and alert, v mask, labs reviewed, apixaban 05/25: as per gi, ngt and eliquis tolerated 05/26: pending clearance but still with ng and nonrebreather 05/27: hypoxic yesterday, deteriorated, coded, now intubated, icu, labs noted 05/28: icu, levophed gtt, hgb 7.6, repeat cbc 05/29: remains in the icu, given prbc last night, no bleeding 05/30: no events, no bleeding, ++ fredo and on pressor 05/31: intubated, bp better on pressor, no bleeding, coag ordered 06/02: reamins ill appearing, on vent, labs noted, on vent, poorly responsive 06/03: no events, no bleeding, labs noted, dw surgery, and Rn, monitoring plt 06/04: tolerating tube feeds, labs noted, in the icu 06/05: restraints, cxr unchanged, anticoagulants on hold until further notice 06/06: no events, no bleeding, no night sweats, no bleeding 06/08: icu, unable to wean per resp, apixaban restarted, labs reviewed 06/09: minimally responsive, on vent and gt feeds, no bleeding 06/10: no acute events, failed to wean, hd for today, h/h stable 06/11: remains altered, may need trach, coags ordered, no bleeding currently 06/12: no events, no bleeding, trach pending, no major changes 06/13: icu, weaning failed, egd pending, hgb 7.6, repeat cbc 06/15: no events, no bleeding, is more responsive, labs reviewed, no changes, on pressor 06/16: remains on vent, no bleeding, on pressors, labs noted 06/17: now is s/p trach as well, on vent, labs reviewed, jeison Rn Sal 06/18: no new events, transferred out of the icu, s/p peg and trach Objective Objective Current Medications Medications (Trade) Dose Ordered Sig/Phillip Route PRN Reason Start Time Stop Time Status Last Admin Dose Admin Acetaminophen (Tylenol) 500 mg Q4H PRN GT Mild Pain/Temp > 100.5 06/17/19 19:43 07/17/19 19:42 Amiodarone HCl (Cordarone) 200 mg DAILY GT 06/18/19 09:00 07/07/19 16:14 Chlorhexidine Gluconate (Reina-Hex 2%) 1 applic DAILY@1999 TOPIC 06/17/19 20:00 06/26/19 19:59 06/17/19 20:26 Clonidine HCl (Catapres Tab) 0.1 mg Q4H PRN GT For High Blood Pressure 06/17/19 19:44 07/17/19 19:43 Daptomycin 500 mg/ Sodium Chloride 55 ml @ 100 mls/hr Q48H IV 06/18/19 13:00 06/23/19 23:59 Lansoprazole (Prevacid) 30 mg BID GT 06/18/19 09:00 07/06/19 17:59 Methylprednisolone Sodium Succinate (Solu-MEDROL) 20 mg DAILY IVP 06/18/19 09:00 07/04/19 20:59 Metoprolol Tartrate (Lopressor) 5 mg Q5MIN X 3 IVP 06/17/19 19:45 07/07/19 16:14 Vitamin D (Vitamin D) 5,000 intlu DAILY GT 06/18/19 09:00 07/07/19 12:59 Last 24 Hour Vital Signs Date Time Temp Pulse Resp B/P (MAP) Pulse Ox O2 Delivery O2 Flow Rate FiO2 06/18/19 05:07 70 19 35 06/18/19 04:00 35 06/18/19 04:00 Mechanical Ventilator 06/18/19 03:46 98.5 50 16 132/60 (84) 99 06/18/19 03:26 54 06/18/19 03:02 62 28 35 06/18/19 01:01 66 26 35 06/18/19 00:00 Mechanical Ventilator 06/18/19 00:00 35 06/18/19 00:00 98.0 67 25 152/75 (100) 99 06/17/19 23:29 52 06/17/19 22:48 75 32 35 06/17/19 21:28 58 17 35 06/17/19 20:09 85 06/17/19 20:00 Mechanical Ventilator 06/17/19 20:00 35 06/17/19 20:00 98.2 81 22 143/79 (100) 99 06/17/19 19:39 72 20 35 06/17/19 18:00 98.4 49 18 142/61 (88) 100 06/17/19 17:29 62 25 35 06/17/19 17:00 67 18 151/81 (104) 100 06/17/19 16:00 Mechanical Ventilator 06/17/19 16:00 67 06/17/19 16:00 54 16 117/55 (75) 100 06/17/19 16:00 35 06/17/19 15:47 80 16 100 06/17/19 15:26 80 16 35 06/17/19 15:00 80 16 150/70 (96) 100 06/17/19 14:00 55 16 149/65 (93) 100 06/17/19 13:00 61 0 116/62 (80) 99 06/17/19 12:41 53 16 35 06/17/19 12:00 98.0 73 0 132/64 (86) 99 06/17/19 12:00 Mechanical Ventilator 06/17/19 12:00 35 06/17/19 12:00 73 06/17/19 11:10 53 16 35 06/17/19 11:00 52 12 136/59 (84) 100 06/17/19 10:00 72 15 147/63 (91) 99 06/17/19 09:00 76 13 152/68 (96) 98 06/17/19 08:50 75 18 35 06/17/19 08:00 98.7 78 9 166/75 (105) 99 06/17/19 08:00 78 06/17/19 08:00 35 06/17/19 08:00 Mechanical Ventilator 06/17/19 07:05 75 28 35 06/17/19 07:00 71 15 161/82 (108) 99 06/17/19 06:00 70 0 152/79 (103) 98 06/17/19 05:25 69 26 35 06/17/19 05:00 70 3 153/71 (98) 98 06/17/19 04:00 98.2 71 6 158/67 (97) 98 06/17/19 04:00 65 06/17/19 04:00 Mechanical Ventilator 06/17/19 04:00 50 06/17/19 03:35 73 37 35 06/17/19 03:00 70 20 157/68 (97) 99 06/17/19 02:00 68 18 143/64 (90) 98 06/17/19 01:24 67 30 35 06/17/19 01:00 68 20 138/60 (86) 98 06/17/19 00:00 71 06/17/19 00:00 50 06/17/19 00:00 97.7 69 22 143/61 (88) 97 06/17/19 00:00 Mechanical Ventilator 06/16/19 23:37 70 35 35 06/16/19 23:00 71 28 146/64 (91) 96 06/16/19 22:00 70 27 155/67 (96) 98 06/16/19 21:46 67 28 35 06/16/19 21:00 63 20 131/59 (83) 98 1/20/20 20:00 Mechanical Ventilator 06/16/19 20:00 70 06/16/19 20:00 97.4 68 21 137/58 (84) 99 06/16/19 20:00 50 06/16/19 19:41 69 28 35 06/16/19 19:00 72 27 135/64 (87) 98 06/16/19 18:00 65 16 136/71 (92) 99 06/16/19 17:45 70 18 141/65 (90) 100 06/16/19 17:30 77 22 165/69 (101) 100 06/16/19 17:15 79 23 166/73 (104) 99 06/16/19 17:00 82 22 35 06/16/19 17:00 82 20 150/75 (100) 98 06/16/19 16:45 89 21 170/81 (110) 97 06/16/19 16:30 92 21 182/85 (117) 96 06/16/19 16:19 180/89 06/16/19 16:15 90 19 180/89 (119) 94 06/16/19 16:09 134 16 153/102 (119) 91 06/16/19 16:06 180 178/83 06/16/19 16:00 98.5 173 17 178/83 (114) 93 06/16/19 16:00 Mechanical Ventilator 06/16/19 16:00 188 06/16/19 16:00 50 06/16/19 15:52 142 16 167/128 (141) 92 06/16/19 15:45 166 16 170/82 (111) 93 06/16/19 15:40 123 16 195/98 (130) 93 06/16/19 15:38 134 17 192/99 (130) 93 06/16/19 15:00 91 16 171/75 (107) 97 06/16/19 14:59 89 17 35 06/16/19 14:58 79 12 100 06/16/19 14:54 83 16 145/68 (93) 99 06/16/19 14:00 72 24 06/16/19 13:22 49 16 35 06/16/19 13:00 67 16 124/46 (72) 99 06/16/19 12:00 69 06/16/19 12:00 Mechanical Ventilator 06/16/19 12:00 99.0 91 16 138/66 (90) 99 06/16/19 11:28 76 27 35 06/16/19 11:27 100 06/16/19 11:25 85 27 35 06/16/19 11:00 91 16 138/74 (95) 99 06/16/19 10:00 78 16 147/72 (97) 99 06/16/19 09:16 70 16 35 35 06/16/19 09:00 73 16 133/57 (82) 100 06/16/19 08:00 Mechanical Ventilator 06/16/19 08:00 72 16 164/67 (99) 100 06/16/19 08:00 63 06/16/19 07:20 67 22 35 06/16/19 07:00 64 16 156/62 (93) 100 Intake and Output 06/17/19 06/18/19 19:00 07:00 Intake Total 475 ml 490 ml Output Total 375 ml 850 ml Balance 100 ml -360 ml Free Water 50 ml Tube Feeding 345 ml 440 ml Other 130 ml Output Urine Total 375 ml 700 ml Stool Total 150 ml # Bowel Movements 85 Labs Test 06/16/19 04:45 06/17/19 03:30 06/18/19 04:10 White Blood Count 8.4 K/UL (4.8-10.8) 8.0 K/UL (4.8-10.8) 6.7 K/UL (4.8-10.8) Red Blood Count 2.76 M/UL (4.70-6.10) 2.76 M/UL (4.70-6.10) 2.42 M/UL (4.70-6.10) Hemoglobin 8.6 G/DL (14.2-18.0) 8.5 G/DL (14.2-18.0) 7.5 G/DL (14.2-18.0) Hematocrit 24.8 % (42.0-52.0) 25.0 % (42.0-52.0) 21.9 % (42.0-52.0) Mean Corpuscular Volume 90 FL (80-99) 90 FL (80-99) 90 FL (80-99) Mean Corpuscular Hemoglobin 31.1 PG (27.0-31.0) 30.8 PG (27.0-31.0) 31.2 PG (27.0-31.0) Mean Corpuscular Hemoglobin Concent 34.5 G/DL (32.0-36.0) 34.1 G/DL (32.0-36.0) 34.5 G/DL (32.0-36.0) Red Cell Distribution Width 15.0 % (11.6-14.8) 15.0 % (11.6-14.8) 14.9 % (11.6-14.8) Platelet Count 117 K/UL (150-450) 105 K/UL (150-450) 89 K/UL (150-450) Mean Platelet Volume 5.9 FL (6.5-10.1) 5.9 FL (6.5-10.1) 5.9 FL (6.5-10.1) Neutrophils (%) (Auto) % (45.0-75.0) % (45.0-75.0) % (45.0-75.0) Lymphocytes (%) (Auto) % (20.0-45.0) % (20.0-45.0) % (20.0-45.0) Monocytes (%) (Auto) % (1.0-10.0) % (1.0-10.0) % (1.0-10.0) Eosinophils (%) (Auto) % (0.0-3.0) % (0.0-3.0) % (0.0-3.0) Basophils (%) (Auto) % (0.0-2.0) % (0.0-2.0) % (0.0-2.0) Prothrombin Time 12.6 SEC (9.30-11.50) Prothromb Time International Ratio 1.2 (0.9-1.1) Activated Partial Thromboplast Time 22 SEC (23-33) Sodium Level 149 MMOL/L (136-145) 148 MMOL/L (136-145) 149 MMOL/L (136-145) Potassium Level 3.4 MMOL/L (3.5-5.1) 3.8 MMOL/L (3.5-5.1) 3.6 MMOL/L (3.5-5.1) Chloride Level 110 MMOL/L (98-107) 110 MMOL/L (98-107) 112 MMOL/L (98-107) Carbon Dioxide Level 32 MMOL/L (21-32) 30 MMOL/L (21-32) 33 MMOL/L (21-32) Anion Gap 7 mmol/L (5-15) 8 mmol/L (5-15) 5 mmol/L (5-15) Blood Urea Nitrogen 65 mg/dL (7-18) 72 mg/dL (7-18) 79 mg/dL (7-18) Creatinine 3.5 MG/DL (0.55-1.30) 3.7 MG/DL (0.55-1.30) 3.9 MG/DL (0.55-1.30) Estimat Glomerular Filtration Rate mL/min (>60) mL/min (>60) mL/min (>60) Glucose Level 124 MG/DL (74-106) 99 MG/DL (74-106) 154 MG/DL (74-106) Calcium Level 7.7 MG/DL (8.5-10.1) 7.1 MG/DL (8.5-10.1) 7.0 MG/DL (8.5-10.1) Phosphorus Level 2.9 MG/DL (2.5-4.9) 3.7 MG/DL (2.5-4.9) Magnesium Level 2.1 MG/DL (1.8-2.4) 2.1 MG/DL (1.8-2.4) Total Bilirubin 0.4 MG/DL (0.2-1.0) 0.3 MG/DL (0.2-1.0) Aspartate Amino Transf (AST/SGOT) 50 U/L (15-37) 38 U/L (15-37) Alanine Aminotransferase (ALT/SGPT) 68 U/L (12-78) 37 U/L (12-78) Alkaline Phosphatase 66 U/L (46-116) 67 U/L (46-116) C-Reactive Protein, Quantitative 0.6 mg/dL (0.00-0.90) 1.4 mg/dL (0.00-0.90) Pro-B-Type Natriuretic Peptide 4936 pg/mL (0-125) 4884 pg/mL (0-125) Total Protein 4.6 G/DL (6.4-8.2) 4.1 G/DL (6.4-8.2) Albumin 1.7 G/DL (3.4-5.0) 1.4 G/DL (3.4-5.0) Globulin 2.9 g/dL 2.7 g/dL Albumin/Globulin Ratio 0.6 (1.0-2.7) 0.5 (1.0-2.7) Random Vancomycin Level 8.3 ug/mL 7.7 ug/mL Differential Total Cells Counted 100 Neutrophils % (Manual) 96 % (45-75) Lymphocytes % (Manual) 2 % (20-45) Monocytes % (Manual) 2 % (1-10) Eosinophils % (Manual) 0 % (0-3) Basophils % (Manual) 0 % (0-2) Band Neutrophils 0 % (0-8) Platelet Estimate Decreased Platelet Morphology Normal Total Creatine Kinase 41 U/L (26-308) Uric Acid 5.1 MG/DL (2.6-7.2) Height (Feet): 5 Height (Inches): 7.00 Weight (Pounds): 181 Lymphatic: tender other Objective PE: Vitals: reviewed General Appearance: NAD HEENT: normocephalic, atraumatic Neck: non-tender, normal alignment Respiratory/Chest: VENT++ ++ trach Cardiovascular/Chest: normal peripheral pulses, normal rate Abdomen: normal bowel sounds, soft, nontender ++ peg Extremities: normal range of motion ++ right arm swelling Suleman Addison MD Jun 18, 2019 06:58
[2019-06-18] MEDS ORDERED: Solu-MEDROL 40mg Inj IVP SCH (09:00)
[2019-06-18] MEDS: Vitamin D 1000 IU Tab GT SCH (09:41)
[2019-06-18] MEDS: Amiodarone 200mg tab GT SCH (09:41)
--- NOTE | 2019-06-18 09:45 | Consultation ---
DATE OF CONSULTATION: NOTE: UNCLEAR AUDIO 00:16 VASCULAR SURGERY CONSULTATION CONSULTING PHYSICIAN: Junior Tuttle M.D. REFERRING PHYSICIAN: Joslyn Wiggins M.D. REASON FOR CONSULTATION: Left foot decubitus changes. HISTORY OF PRESENT ILLNESS: This is an 84-year-old male, currently in ICU at [facility] on a ventilator. The patient 00:33 office. The patient was found to have left foot decubitus changes. Vascular Surgery is consulted for further evaluation. PAST MEDICAL HISTORY: As above. Respiratory failure and renal failure. MEDICATIONS: See attached MAR. ALLERGIES: No known drug allergies. SOCIAL HISTORY: Unobtainable. FAMILY HISTORY: Unobtainable. REVIEW OF SYSTEMS: Unobtainable 00:49. The patient is on ICU on the ventilator. PHYSICAL EXAMINATION: The patient 00:53 blood pressure 140/70, 01:00 The patient with decubitus changes 01:18 IMPRESSION: 1. Left foot decubitus changes. 2. Palpable pedal pulses. PLAN AND RECOMMENDATIONS: 01:46 ortho evaluation 01:51. Junior Tuttle M.D. DR: RUBY JOB#: [id number] CC:
--- NOTE | 2019-06-18 10:01 | General Progress Note ---
Assessment/Plan Problem List: (1) Dysphagia ICD Codes: R13.10 - Dysphagia, unspecified SNOMED: 87424119, 423205403 (2) Anemia ICD Codes: D64.9 - Anemia, unspecified SNOMED: 092395955 (3) Hypothyroidism ICD Codes: E03.9 - Hypothyroidism, unspecified SNOMED: 92934392 (4) Thrombus ICD Codes: I82.90 - Acute embolism and thrombosis of unspecified vein SNOMED: 21292343, 40496940, 804928098, 372997239 (5) A-fib ICD Codes: I48.91 - Unspecified atrial fibrillation SNOMED: 82079894 Status: progressing, unchanged, deteriorating Assessment/Plan: fu pulm fu labs abx per ID s/p trach s/p PEG GTF Subjective ROS Limited/Unobtainable: No Allergies: Coded Allergies: No Known Allergies (Unverified , 05/18/19) Subjective coded today Objective Last 24 Hour Vital Signs Date Time Temp Pulse Resp B/P (MAP) Pulse Ox O2 Delivery O2 Flow Rate FiO2 06/18/19 08:00 98.6 73 20 154/81 (105) 96 06/18/19 08:00 35 06/18/19 07:00 79 20 100 Mechanical Ventilator 8.0 60 06/18/19 07:00 79 20 35 06/18/19 05:07 70 19 35 06/18/19 04:00 35 06/18/19 04:00 Mechanical Ventilator 06/18/19 03:46 98.5 50 16 132/60 (84) 99 06/18/19 03:26 54 06/18/19 03:02 62 28 35 06/18/19 01:01 66 26 35 06/18/19 00:00 Mechanical Ventilator 06/18/19 00:00 35 06/18/19 00:00 98.0 67 25 152/75 (100) 99 06/17/19 23:29 52 06/17/19 22:48 75 32 35 06/17/19 21:28 58 17 35 06/17/19 20:09 85 06/17/19 20:00 Mechanical Ventilator 06/17/19 20:00 35 06/17/19 20:00 98.2 81 22 143/79 (100) 99 06/17/19 19:39 72 20 35 06/17/19 18:00 98.4 49 18 142/61 (88) 100 06/17/19 17:29 62 25 35 06/17/19 17:00 67 18 151/81 (104) 100 06/17/19 16:00 Mechanical Ventilator 06/17/19 16:00 67 06/17/19 16:00 54 16 117/55 (75) 100 06/17/19 16:00 35 06/17/19 15:47 80 16 100 06/17/19 15:26 80 16 35 06/17/19 15:00 80 16 150/70 (96) 100 06/17/19 14:00 55 16 149/65 (93) 100 06/17/19 13:00 61 0 116/62 (80) 99 06/17/19 12:41 53 16 35 06/17/19 12:00 98.0 73 0 132/64 (86) 99 06/17/19 12:00 Mechanical Ventilator 06/17/19 12:00 35 06/17/19 12:00 73 06/17/19 11:10 53 16 35 06/17/19 11:00 52 12 136/59 (84) 100 Intake and Output 06/17/19 06/18/19 19:00 07:00 Intake Total 475 ml 530 ml Output Total 375 ml 850 ml Balance 100 ml -320 ml Free Water 50 ml Tube Feeding 345 ml 480 ml Other 130 ml Output Urine Total 375 ml 700 ml Stool Total 150 ml # Bowel Movements 85 Laboratory Tests 06/18/19 04:10: White Blood Count 6.7, Red Blood Count 2.42L, Hemoglobin 7.5L, Hematocrit 21.9L , Mean Corpuscular Volume 90, Mean Corpuscular Hemoglobin 31.2H, Mean Corpuscular Hemoglobin Concent 34.5, Red Cell Distribution Width 14.9H, Platelet Count 89L, Mean Platelet Volume 5.9L, Neutrophils (%) (Auto) , Lymphocytes (%) (Auto) , Monocytes (%) (Auto) , Eosinophils (%) (Auto) , Basophils (%) (Auto) , Neutrophils % (Manual) [Pending], Lymphocytes % (Manual) [Pending], Platelet Estimate [Pending], Platelet Morphology [Pending], Sodium Level 149H, Potassium Level 3.6, Chloride Level 112H, Carbon Dioxide Level 33H, Anion Gap 5, Blood Urea Nitrogen 79H, Creatinine 3.9H, Estimat Glomerular Filtration Rate , Glucose Level 154H, Uric Acid 5.1, Calcium Level 7.0L, Phosphorus Level 3.7, Magnesium Level 2.1, Total Bilirubin 0.3, Aspartate Amino Transf (AST/SGOT) 38H, Alanine Aminotransferase (ALT/SGPT) 37, Alkaline Phosphatase 67, C-Reactive Protein, Quantitative 1.4H, Pro-B-Type Natriuretic Peptide 4884H, Total Protein 4.1L, Albumin 1.4L, Globulin 2.7, Albumin/Globulin Ratio 0.5L, Random Vancomycin Level 7.7 Height (Feet): 5 Height (Inches): 7.00 Weight (Pounds): 181 General Appearance: no apparent distress EENT: normal ENT inspection Neck: supple Cardiovascular: normal rate Respiratory/Chest: decreased breath sounds Abdomen: normal bowel sounds, non tender, soft Extremities: non-tender Valentino Lino MD Jun 18, 2019 10:01
--- NOTE | 2019-06-18 10:53 | Infectious Diseases Prog Note ---
Assessment/Plan Assessment/Plan 84 yo male with PMHx of HTN who was sent to the ED on 05/18/19 from his halfway for possible picc line infection. Swelling around PICC line Minimal to no erythema and no purulent drainage Not likely to be infected Blood Cx 05/18/19 - NGTD PICC Tip Cx 05/18/19 - NGTD PICC line removed 05/18/19 Leukocytosis, mild recurrent (on steroids)- resolved No fever OM - Let foot On Vancomycin at nursing End date early May PNA Acute respiratory failure s/p intubation 05/27, s/p trach 06/16/1906/10 CXR: Bilateral upper lobe interstitial opacities and volume loss are unchanged. Diffuse more acute appearing parenchymal disease throughout the left mid and lower lung are unchanged. CXR - Some LLL Atelectasis vs PNA, Nodules CT 05/20/19 - Bilateral upper lobe infiltrates worse on the right. Consider pneumonia. Bilateral pleural effusions moderate in size Sp Cx Marily HTN PLAN - Continue Daptomycin for OM until 06/23/19 weekly CPK -06/10 SP Zosyn #15 - 05/28/19 SP Vancomycin per pharmacy - Stopped for increasing Cr - 05/27/19 SP Levofloxacin #5 - Monitor CBC and Temps -trach/ICU care -aspiration precautions -wound care per hospital protocol Thank you for this consult. [facility] will continue to follow the patient with you during this hospitalization. Subjective Allergies: Coded Allergies: No Known Allergies (Unverified , 05/18/19) Subjective afebrile no leukocytosis transferred out of ICU to [facility] Objective Vital Signs Last 24 Hour Vital Signs Date Time Temp Pulse Resp B/P (MAP) Pulse Ox O2 Delivery O2 Flow Rate FiO2 06/18/19 08:00 98.6 73 20 154/81 (105) 96 06/18/19 08:00 35 06/18/19 07:00 79 20 100 Mechanical Ventilator 8.0 60 06/18/19 07:00 79 20 35 06/18/19 05:07 70 19 35 06/18/19 04:00 35 06/18/19 04:00 Mechanical Ventilator 06/18/19 03:46 98.5 50 16 132/60 (84) 99 06/18/19 03:26 54 06/18/19 03:02 62 28 35 06/18/19 01:01 66 26 35 1/22/20 00:00 Mechanical Ventilator 06/18/19 00:00 35 06/18/19 00:00 98.0 67 25 152/75 (100) 99 06/17/19 23:29 52 06/17/19 22:48 75 32 35 06/17/19 21:28 58 17 35 06/17/19 20:09 85 06/17/19 20:00 Mechanical Ventilator 06/17/19 20:00 35 06/17/19 20:00 98.2 81 22 143/79 (100) 99 06/17/19 19:39 72 20 35 06/17/19 18:00 98.4 49 18 142/61 (88) 100 06/17/19 17:29 62 25 35 06/17/19 17:00 67 18 151/81 (104) 100 06/17/19 16:00 Mechanical Ventilator 06/17/19 16:00 67 06/17/19 16:00 54 16 117/55 (75) 100 06/17/19 16:00 35 06/17/19 15:47 80 16 100 06/17/19 15:26 80 16 35 06/17/19 15:00 80 16 150/70 (96) 100 06/17/19 14:00 55 16 149/65 (93) 100 06/17/19 13:00 61 0 116/62 (80) 99 06/17/19 12:41 53 16 35 06/17/19 12:00 98.0 73 0 132/64 (86) 99 06/17/19 12:00 Mechanical Ventilator 06/17/19 12:00 35 06/17/19 12:00 73 06/17/19 11:10 53 16 35 06/17/19 11:00 52 12 136/59 (84) 100 Height (Feet): 5 Height (Inches): 7.00 Weight (Pounds): 181 Objective General Appearance: no apparent distress, lethargic Cardiovascular: normal rate Respiratory/Chest: decreased breath sounds Abdomen: distended Laboratory Tests Test 06/18/19 04:10 White Blood Count 6.7 K/UL (4.8-10.8) Red Blood Count 2.42 M/UL (4.70-6.10) L Hemoglobin 7.5 G/DL (14.2-18.0) L Hematocrit 21.9 % (42.0-52.0) L Mean Corpuscular Volume 90 FL (80-99) Mean Corpuscular Hemoglobin 31.2 PG (27.0-31.0) H Mean Corpuscular Hemoglobin Concent 34.5 G/DL (32.0-36.0) Red Cell Distribution Width 14.9 % (11.6-14.8) H Platelet Count 89 K/UL (150-450) L Mean Platelet Volume 5.9 FL (6.5-10.1) L Neutrophils (%) (Auto) % (45.0-75.0) Lymphocytes (%) (Auto) % (20.0-45.0) Monocytes (%) (Auto) % (1.0-10.0) Eosinophils (%) (Auto) % (0.0-3.0) Basophils (%) (Auto) % (0.0-2.0) Differential Total Cells Counted 100 Neutrophils % (Manual) 91 % (45-75) H Lymphocytes % (Manual) 5 % (20-45) L Monocytes % (Manual) 4 % (1-10) Eosinophils % (Manual) 0 % (0-3) Basophils % (Manual) 0 % (0-2) Band Neutrophils 0 % (0-8) Platelet Estimate Decreased L Platelet Morphology Normal Hypochromasia 3+ Anisocytosis 1+ Spherocytes 2+ Sodium Level 149 MMOL/L (136-145) H Potassium Level 3.6 MMOL/L (3.5-5.1) Chloride Level 112 MMOL/L (98-107) H Carbon Dioxide Level 33 MMOL/L (21-32) H Anion Gap 5 mmol/L (5-15) Blood Urea Nitrogen 79 mg/dL (7-18) H Creatinine 3.9 MG/DL (0.55-1.30) H Estimat Glomerular Filtration Rate mL/min (>60) Glucose Level 154 MG/DL (74-106) H Uric Acid 5.1 MG/DL (2.6-7.2) Calcium Level 7.0 MG/DL (8.5-10.1) L Phosphorus Level 3.7 MG/DL (2.5-4.9) Magnesium Level 2.1 MG/DL (1.8-2.4) Total Bilirubin 0.3 MG/DL (0.2-1.0) Aspartate Amino Transf (AST/SGOT) 38 U/L (15-37) H Alanine Aminotransferase (ALT/SGPT) 37 U/L (12-78) Alkaline Phosphatase 67 U/L (46-116) C-Reactive Protein, Quantitative 1.4 mg/dL (0.00-0.90) H Pro-B-Type Natriuretic Peptide 4884 pg/mL (0-125) H Total Protein 4.1 G/DL (6.4-8.2) L Albumin 1.4 G/DL (3.4-5.0) L Globulin 2.7 g/dL Albumin/Globulin Ratio 0.5 (1.0-2.7) L Random Vancomycin Level 7.7 ug/mL Current Medications Medications (Trade) Dose Ordered Sig/Phillip Route PRN Reason Start Time Stop Time Status Last Admin Dose Admin Acetaminophen (Tylenol) 500 mg Q4H PRN GT Mild Pain/Temp > 100.5 06/17/19 19:43 07/17/19 19:42 Amiodarone HCl (Cordarone) 200 mg DAILY GT 06/18/19 09:00 07/07/19 16:14 06/18/19 09:41 Chlorhexidine Gluconate (Reina-Hex 2%) 1 applic DAILY@2000 TOPIC 06/17/19 20:00 06/26/19 19:59 06/17/19 20:26 Clonidine HCl (Catapres Tab) 0.1 mg Q4H PRN GT For High Blood Pressure 06/17/19 19:44 07/17/19 19:43 Daptomycin 500 mg/ Sodium Chloride 55 ml @ 100 mls/hr Q48H IV 06/18/19 13:00 06/23/19 23:59 Lansoprazole (Prevacid) 30 mg BID GT 06/18/19 09:00 07/06/19 17:59 06/18/19 09:40 Methylprednisolone Sodium Succinate (Solu-MEDROL) 20 mg DAILY IVP 06/18/19 09:00 07/04/19 20:59 06/18/19 09:41 Metoprolol Tartrate (Lopressor) 5 mg Q5MIN X 3 IVP 06/17/19 19:45 07/07/19 16:14 Vitamin D (Vitamin D) 5,000 intlu DAILY GT 06/18/19 09:00 2/10/20 12:59 06/18/19 09:41 Latha Lowe M.D. Jun 18, 2019 10:53
--- NOTE | 2019-06-18 11:00 | Nephrology Progress Note ---
Assessment/Plan Problem List: (1) Renal failure (ARF), acute on chronic Assessment: Cr rising (2) Cellulitis of upper extremity (3) A-fib (4) Pneumonia (5) UTI (urinary tract infection) (6) Anemia Assessment: worsened (7) Hypothyroidism Assessment - KIMO on CKD - Urinary tract infection. - Anemia- - Dehydration. - Cellulitis of Upper extremity - HTN Plan taper steroids as possible add hydralazine dialysis last 06/14 - will observe renal parameters Trach 06/16 ! DC Midodrine DC IV IV Calcium and PO Vit D ad needed Transfuse one unit PRBcs in ICU- intubated BP meds and Mind altering meds discontinued On midodrine check vanco levels - hold vanco doses previously: Per cardiology Anemia kumari- Avoid Nephrotoxics Per ID Allow CHANDA inhibitor to continue as long as renal function does not worsen. PICC line has been removed. CXR: Increased right pleural effusion and similar left pleural effusion. Increased interstitial and hazy opacities throughout the lungs. Subjective ROS Limited/Unobtainable: Yes Objective Objective Last 24 Hour Vital Signs Date Time Temp Pulse Resp B/P (MAP) Pulse Ox O2 Delivery O2 Flow Rate FiO2 06/18/19 08:00 98.6 73 20 154/81 (105) 96 06/18/19 08:00 35 06/18/19 07:00 79 20 100 Mechanical Ventilator 8.0 60 06/18/19 07:00 79 20 35 06/18/19 05:07 70 19 35 06/18/19 04:00 35 06/18/19 04:00 Mechanical Ventilator 06/18/19 03:46 98.5 50 16 132/60 (84) 99 06/18/19 03:26 54 06/18/19 03:02 62 28 35 06/18/19 01:01 66 26 35 06/18/19 00:00 Mechanical Ventilator 06/18/19 00:00 35 06/18/19 00:00 98.0 67 25 152/75 (100) 99 06/17/19 23:29 52 06/17/19 22:48 75 32 35 06/17/19 21:28 58 17 35 06/17/19 20:09 85 06/17/19 20:00 Mechanical Ventilator 06/17/19 20:00 35 06/17/19 20:00 98.2 81 22 143/79 (100) 99 06/17/19 19:39 72 20 35 06/17/19 18:00 98.4 49 18 142/61 (88) 100 06/17/19 17:29 62 25 35 06/17/19 17:00 67 18 151/81 (104) 100 06/17/19 16:00 Mechanical Ventilator 06/17/19 16:00 67 06/17/19 16:00 54 16 117/55 (75) 100 06/17/19 16:00 35 06/17/19 15:47 80 16 100 06/17/19 15:26 80 16 35 06/17/19 15:00 80 16 150/70 (96) 100 06/17/19 14:00 55 16 149/65 (93) 100 06/17/19 13:00 61 0 116/62 (80) 99 06/17/19 12:41 53 16 35 06/17/19 12:00 98.0 73 0 132/64 (86) 99 06/17/19 12:00 Mechanical Ventilator 06/17/19 12:00 35 06/17/19 12:00 73 06/17/19 11:10 53 16 35 Intake and Output 06/17/19 06/18/19 19:00 07:00 Intake Total 475 ml 530 ml Output Total 375 ml 850 ml Balance 100 ml -320 ml Free Water 50 ml Tube Feeding 345 ml 480 ml Other 130 ml Output Urine Total 375 ml 700 ml Stool Total 150 ml # Bowel Movements 85 Laboratory Tests 06/18/19 04:10: White Blood Count 6.7, Red Blood Count 2.42L, Hemoglobin 7.5L, Hematocrit 21.9L , Mean Corpuscular Volume 90, Mean Corpuscular Hemoglobin 31.2H, Mean Corpuscular Hemoglobin Concent 34.5, Red Cell Distribution Width 14.9H, Platelet Count 89L, Mean Platelet Volume 5.9L, Neutrophils (%) (Auto) , Lymphocytes (%) (Auto) , Monocytes (%) (Auto) , Eosinophils (%) (Auto) , Basophils (%) (Auto) , Differential Total Cells Counted 100, Neutrophils % ( Manual) 91H, Lymphocytes % (Manual) 5L, Monocytes % (Manual) 4, Eosinophils % ( Manual) 0, Basophils % (Manual) 0, Band Neutrophils 0, Platelet Estimate DecreasedL, Platelet Morphology Normal, Hypochromasia 3+, Anisocytosis 1+, Spherocytes 2+, Sodium Level 149H, Potassium Level 3.6, Chloride Level 112H, Carbon Dioxide Level 33H, Anion Gap 5, Blood Urea Nitrogen 79H, Creatinine 3.9H , Estimat Glomerular Filtration Rate , Glucose Level 154H, Uric Acid 5.1, Calcium Level 7.0L, Phosphorus Level 3.7, Magnesium Level 2.1, Total Bilirubin 0.3, Aspartate Amino Transf (AST/SGOT) 38H, Alanine Aminotransferase (ALT/SGPT) 37, Alkaline Phosphatase 67, C-Reactive Protein, Quantitative 1.4H, Pro-B-Type Natriuretic Peptide 4884H, Total Protein 4.1L, Albumin 1.4L, Globulin 2.7, Albumin/Globulin Ratio 0.5L, Random Vancomycin Level 7.7 Height (Feet): 5 Height (Inches): 7.00 Weight (Pounds): 181 General Appearance: no apparent distress EENT: other - trach Cardiovascular: normal rate Respiratory/Chest: decreased breath sounds Abdomen: distended Objective no change Reinier Mera MD Jun 18, 2019 11:00
--- NOTE | 2019-06-18 12:13 | Pulmonology Progress Note ---
Assessment/Plan Assessment/Plan IMPRESSION AND PLAN: 1. Pneumonia. Bilateral upper lobe. 2. Cellulitis. 3. History of COPD. 4. Hypertension. 5. Afib with RVR; rate controlled 6. Respiratory failure; on vent; unable to wean DISCUSSION: 1. S/p trach; 2. Agree with present management and care. 3. Continue medications and HHN with atrovent only Arsen Whittaker M.D. Subjective Interval Events: none new; s/p trach Constitutional: Reports: no symptoms HEENT: Repors: no symptoms Respiratory: Reports: no symptoms Cardiovascular: Reports: no symptoms Allergies: Coded Allergies: No Known Allergies (Unverified , 05/18/19) Objective Last 24 Hour Vital Signs Date Time Temp Pulse Resp B/P (MAP) Pulse Ox O2 Delivery O2 Flow Rate FiO2 06/18/19 12:00 Mechanical Ventilator 06/18/19 09:00 73 06/18/19 08:00 98.6 73 20 154/81 (105) 96 06/18/19 08:00 35 06/18/19 08:00 Mechanical Ventilator 06/18/19 07:00 79 20 100 Mechanical Ventilator 8.0 60 06/18/19 07:00 79 20 35 06/18/19 05:07 70 19 35 06/18/19 04:00 35 06/18/19 04:00 Mechanical Ventilator 06/18/19 03:46 98.5 50 16 132/60 (84) 99 06/18/19 03:26 54 06/18/19 03:02 62 28 35 06/18/19 01:01 66 26 35 06/18/19 00:00 Mechanical Ventilator 06/18/19 00:00 35 06/18/19 00:00 98.0 67 25 152/75 (100) 99 06/17/19 23:29 52 06/17/19 22:48 75 32 35 06/17/19 21:28 58 17 35 06/17/19 20:09 85 06/17/19 20:00 Mechanical Ventilator 06/17/19 20:00 35 06/17/19 20:00 98.2 81 22 143/79 (100) 99 06/17/19 19:39 72 20 35 06/17/19 18:00 98.4 49 18 142/61 (88) 100 06/17/19 17:29 62 25 35 06/17/19 17:00 67 18 151/81 (104) 100 06/17/19 16:00 Mechanical Ventilator 06/17/19 16:00 67 06/17/19 16:00 54 16 117/55 (75) 100 06/17/19 16:00 35 06/17/19 15:47 80 16 100 06/17/19 15:26 80 16 35 06/17/19 15:00 80 16 150/70 (96) 100 06/17/19 14:00 55 16 149/65 (93) 100 06/17/19 13:00 61 0 116/62 (80) 99 06/17/19 12:41 53 16 35 Intake and Output 06/17/19 06/18/19 19:00 07:00 Intake Total 475 ml 530 ml Output Total 375 ml 850 ml Balance 100 ml -320 ml Free Water 50 ml Tube Feeding 345 ml 480 ml Other 130 ml Output Urine Total 375 ml 700 ml Stool Total 150 ml # Bowel Movements 85 General Appearance: no acute distress HEENT: normocephalic, status post trach Respiratory/Chest: chest wall non-tender, lungs clear Cardiovascular: normal peripheral pulses, normal rate Abdomen: normal bowel sounds Laboratory Tests 06/18/19 04:10: White Blood Count 6.7, Red Blood Count 2.42L, Hemoglobin 7.5L, Hematocrit 21.9L , Mean Corpuscular Volume 90, Mean Corpuscular Hemoglobin 31.2H, Mean Corpuscular Hemoglobin Concent 34.5, Red Cell Distribution Width 14.9H, Platelet Count 89L, Mean Platelet Volume 5.9L, Neutrophils (%) (Auto) , Lymphocytes (%) (Auto) , Monocytes (%) (Auto) , Eosinophils (%) (Auto) , Basophils (%) (Auto) , Differential Total Cells Counted 100, Neutrophils % ( Manual) 91H, Lymphocytes % (Manual) 5L, Monocytes % (Manual) 4, Eosinophils % ( Manual) 0, Basophils % (Manual) 0, Band Neutrophils 0, Platelet Estimate DecreasedL, Platelet Morphology Normal, Hypochromasia 3+, Anisocytosis 1+, Spherocytes 2+, Sodium Level 149H, Potassium Level 3.6, Chloride Level 112H, Carbon Dioxide Level 33H, Anion Gap 5, Blood Urea Nitrogen 79H, Creatinine 3.9H , Estimat Glomerular Filtration Rate , Glucose Level 154H, Uric Acid 5.1, Calcium Level 7.0L, Phosphorus Level 3.7, Magnesium Level 2.1, Total Bilirubin 0.3, Aspartate Amino Transf (AST/SGOT) 38H, Alanine Aminotransferase (ALT/SGPT) 37, Alkaline Phosphatase 67, C-Reactive Protein, Quantitative 1.4H, Pro-B-Type Natriuretic Peptide 4884H, Total Protein 4.1L, Albumin 1.4L, Globulin 2.7, Albumin/Globulin Ratio 0.5L, Random Vancomycin Level 7.7 Current Medications Medications (Trade) Dose Ordered Sig/Phillip Route PRN Reason Start Time Stop Time Status Last Admin Dose Admin Acetaminophen (Tylenol) 500 mg Q4H PRN GT Mild Pain/Temp > 100.5 06/17/19 19:43 07/17/19 19:42 Amiodarone HCl (Cordarone) 200 mg DAILY GT 06/18/19 09:00 07/07/19 16:14 06/18/19 09:41 Chlorhexidine Gluconate (Reina-Hex 2%) 1 applic DAILY@2000 TOPIC 06/17/19 20:00 06/26/19 19:59 06/17/19 20:26 Clonidine HCl (Catapres Tab) 0.1 mg Q4H PRN GT For High Blood Pressure 06/17/19 19:44 07/17/19 19:43 Daptomycin 500 mg/ Sodium Chloride 55 ml @ 100 mls/hr Q48H IV 06/18/19 13:00 06/23/19 23:59 Hydralazine HCl (Apresoline) 10 mg Q6HR GT 06/18/19 12:00 07/18/19 11:59 Lansoprazole (Prevacid) 30 mg BID GT 06/18/19 09:00 07/06/19 17:59 06/18/19 09:40 Metoprolol Tartrate (Lopressor) 5 mg Q5MIN X 3 IVP 06/17/19 19:45 07/07/19 16:14 Prednisone (predniSONE) 25 mg ONCE GT 06/20/19 09:00 06/20/19 11:00 Prednisone (predniSONE) 30 mg ONCE GT 06/19/19 09:00 06/19/19 11:00 Vitamin D (Vitamin D) 5,000 intlu DAILY GT 06/18/19 09:00 07/07/19 12:59 06/18/19 09:41 Arsen Whittaker MD Jun 18, 2019 12:13
[2019-06-18] MEDS: HydrALAZINE 10mg Tab GT SCH ×3 (13:00→23:35)
[2019-06-18] MEDS: DAPTOmycin 500 MG in NS 55 ML IV SCH (13:01)
--- NOTE | 2019-06-18 14:13 | Surgery Progress Note ---
Surgery Progress Note Subjective Procedure Performed tracheostomy Symptoms: improved Objective Last 24 Hour Vital Signs Date Time Temp Pulse Resp B/P (MAP) Pulse Ox O2 Delivery O2 Flow Rate FiO2 06/18/19 13:00 146/78 06/18/19 12:00 Mechanical Ventilator 06/18/19 12:00 98.7 76 21 146/78 (100) 98 06/18/19 12:00 35 06/18/19 11:30 80 19 35 06/18/19 09:00 73 06/18/19 08:52 75 18 35 06/18/19 08:00 98.6 73 20 154/81 (105) 96 06/18/19 08:00 35 06/18/19 08:00 Mechanical Ventilator 06/18/19 07:00 79 20 100 Mechanical Ventilator 8.0 60 06/18/19 07:00 79 20 35 06/18/19 05:07 70 19 35 06/18/19 04:00 35 06/18/19 04:00 Mechanical Ventilator 06/18/19 03:46 98.5 50 16 132/60 (84) 99 06/18/19 03:26 54 06/18/19 03:02 62 28 35 06/18/19 01:01 66 26 35 06/18/19 00:00 Mechanical Ventilator 06/18/19 00:00 35 06/18/19 00:00 98.0 67 25 152/75 (100) 99 06/17/19 23:29 52 06/17/19 22:48 75 32 35 06/17/19 21:28 58 17 35 06/17/19 20:09 85 06/17/19 20:00 Mechanical Ventilator 06/17/19 20:00 35 06/17/19 20:00 98.2 81 22 143/79 (100) 99 06/17/19 19:39 72 20 35 06/17/19 18:00 98.4 49 18 142/61 (88) 100 06/17/19 17:29 62 25 35 06/17/19 17:00 67 18 151/81 (104) 100 06/17/19 16:00 Mechanical Ventilator 06/17/19 16:00 67 06/17/19 16:00 54 16 117/55 (75) 100 06/17/19 16:00 35 06/17/19 15:47 80 16 100 06/17/19 15:26 80 16 35 06/17/19 15:00 80 16 150/70 (96) 100 I&O Intake and Output 06/17/19 06/18/19 19:00 07:00 Intake Total 475 ml 530 ml Output Total 375 ml 850 ml Balance 100 ml -320 ml Free Water 50 ml Tube Feeding 345 ml 480 ml Other 130 ml Output Urine Total 375 ml 700 ml Stool Total 150 ml # Bowel Movements 85 Dressing: saturated Wound: clean Cardiovascular: RSR Respiratory: clear, decreased breath sounds Abdomen: soft, present bowel sounds Extremities: no cyanosis Laboratory Tests Test 06/18/19 04:10 White Blood Count 6.7 K/UL (4.8-10.8) Red Blood Count 2.42 M/UL (4.70-6.10) L Hemoglobin 7.5 G/DL (14.2-18.0) L Hematocrit 21.9 % (42.0-52.0) L Mean Corpuscular Volume 90 FL (80-99) Mean Corpuscular Hemoglobin 31.2 PG (27.0-31.0) H Mean Corpuscular Hemoglobin Concent 34.5 G/DL (32.0-36.0) Red Cell Distribution Width 14.9 % (11.6-14.8) H Platelet Count 89 K/UL (150-450) L Mean Platelet Volume 5.9 FL (6.5-10.1) L Neutrophils (%) (Auto) % (45.0-75.0) Lymphocytes (%) (Auto) % (20.0-45.0) Monocytes (%) (Auto) % (1.0-10.0) Eosinophils (%) (Auto) % (0.0-3.0) Basophils (%) (Auto) % (0.0-2.0) Differential Total Cells Counted 100 Neutrophils % (Manual) 91 % (45-75) H Lymphocytes % (Manual) 5 % (20-45) L Monocytes % (Manual) 4 % (1-10) Eosinophils % (Manual) 0 % (0-3) Basophils % (Manual) 0 % (0-2) Band Neutrophils 0 % (0-8) Platelet Estimate Decreased L Platelet Morphology Normal Hypochromasia 3+ Anisocytosis 1+ Spherocytes 2+ Sodium Level 149 MMOL/L (136-145) H Potassium Level 3.6 MMOL/L (3.5-5.1) Chloride Level 112 MMOL/L (98-107) H Carbon Dioxide Level 33 MMOL/L (21-32) H Anion Gap 5 mmol/L (5-15) Blood Urea Nitrogen 79 mg/dL (7-18) H Creatinine 3.9 MG/DL (0.55-1.30) H Estimat Glomerular Filtration Rate mL/min (>60) Glucose Level 154 MG/DL (74-106) H Uric Acid 5.1 MG/DL (2.6-7.2) Calcium Level 7.0 MG/DL (8.5-10.1) L Phosphorus Level 3.7 MG/DL (2.5-4.9) Magnesium Level 2.1 MG/DL (1.8-2.4) Total Bilirubin 0.3 MG/DL (0.2-1.0) Aspartate Amino Transf (AST/SGOT) 38 U/L (15-37) H Alanine Aminotransferase (ALT/SGPT) 37 U/L (12-78) Alkaline Phosphatase 67 U/L (46-116) C-Reactive Protein, Quantitative 1.4 mg/dL (0.00-0.90) H Pro-B-Type Natriuretic Peptide 4884 pg/mL (0-125) H Total Protein 4.1 G/DL (6.4-8.2) L Albumin 1.4 G/DL (3.4-5.0) L Globulin 2.7 g/dL Albumin/Globulin Ratio 0.5 (1.0-2.7) L Random Vancomycin Level 7.7 ug/mL Plan Problems: (1) Cellulitis of upper extremity Assessment & Plan: 84M with RUE cellulitis, edema, erythema. no drainage. has RUE picc line recommend removal of picc. removed at bedside by myself on 05/18. pressure held, hemostasis noted, dressings applied. cath tip sent for cultures DVT duplex studies with acute thrombus IV Abx as per ID UA pending Cx results keep RUE elevated on pillows okay for diet AM labs anticoagulation off load pressure for dti noted cellulitis and edema improved deteriorated intubated on vent support likely respiratory insufficiency labs ordered wean vent okay for tube feeds via ng - cont as tolerated wean vent am labs HD as per renal now with right IJ Temp HD cath will follow with recs thank you (2) Cellulitis Assessment & Plan: Pt presented on admission with reabsorbing blister lateral R heel. Base of injury indurated with delineated margins(L)4cm x (W)3cm.Non- blanching erythema Sacrum ,R and L buttocks(L)8.5cm x (W)9cm, with a partial thickness pressure injury noted to L buttocks. Base of wound is moist and viable (L)2.3cm x (W)3cm. Area around wound tender when minimally palpated. Pt noted to be wearing splint L foot. Per pt he fractured foot a few weeks ago. Splint removed to assess skin integrity. L heel and malleoli are pink and blanchable.Cavilon Skin Barrier applied to L heel and malleoli and each area covered with Optifoam drsg. Splint reapplied. No other skin concerns noted. unchanged Partial Thickness pressure injury L buttocks resolved . Non-blanching erythema without induration noted to Sacrum,R and L buttocks. (L)8cm x (W)9cm. Scrotum is grossly enlarged and is erythematous and macerated. Penile shaft is grossly swollen .Pt noted to have a partially opened blood blister with 25% biofilm at base of shaft of penis.(L)4.5cm x (W)2.5cm. Bilat groin, medial /posterior aspects of both upper thighs are erythematous and denuded. R lower ext edematous. R heel blister reabsorbed. Non--blanching erythema without induration noted to R heel. Splint removed from L foot. Optifoam drsgs removed from malleoli and heel. Pt noted to have developed several DTPI's despite having Optifoam drsgs. DTPI noted to L achilles . Base of wound is purple and fluctuant (L)0.6cm x (W) 2.7cm.DTPI noted to medial L malleolus(L)0.2cm x (W)0.3cm.Base of wound is purple with marginal erythema. DTPI noted to dorsal L foot. Base of wound is purple with marginal erythema along borders (L)0.9cm x (W)0.5cm.L heel is boggy with non-blanching erythema. Cavilon Skin Barrier applied to affected areas on L foot . Dorsal L foot ,Achilles .R and L malleoli and L heel each covered with Optifoam drsg. Non-blanching erythema without induration noted to lateral L tibia. At plantar aspect of L hallux small dry eschar noted. No erythema or fluctuance periwound. (L)0.5cm x (W)0.4cm. IN addition to Optifoam drsgs placed over each bony prominence of L foot ABD pads placed over dorsal and plantar L foot , Abd pads aligned along L tibia. Splint realigned to L foot Wrapped loosely with Kerlix then wrapped loosely with [place] wrap. L foot floated off mattress with pillow. Tx.Plan: Apply Cavilon to Dorsal L foot. L achilles .Medial/Lateral Malleoli L Foot and L heel. Cover each site with Optifoam drsg. Change every 7 days and prn. Apply Cavilon Plantar L foot. Cover with Optifoam drsg. Change every 7 days and prn. Apply Moisture Barrier Paste to sacrum. Cover with Optifoam drsg. Changee very 7 days and prn. Apply Cavilon Skin Barrier to Both heels. Cover each heel with Optifoam drsg. Change every 7 days and prn. Cleanse wound Shaft of penis with saline. Apply Moisture Barrier Paste Daily and prn. Apply Moisture Barrier Paste to Bilat groin, Scrotum, Medial/Posterior aspects of both upper thighs with each perineal care. Reposition at least every 2hours or as tolerated. Off-load heels with pillows. APM/LA L Mattress overlay. (3) SOB (shortness of breath) Assessment & Plan: Unfortunately patient has been in the intensive care unit on ventilatory support unable to be weaned from vent. Will likely require prolonged ventilatory support. Respiratory insufficiency not improving. Patient is full code as per identifiable documentation in patient's chart and medical record. No family or next kin available. Given patient's wishes current condition and course of a care tracheostomy is indicated recommended. Tracheostomy would be medically necessary as a next step in patient's care plan. s/p trach wean vent Bennett Logan Jun 18, 2019 14:13
[2019-06-18] MEDS: Dyna-Hex 2% Top Sol 2oz TOPIC SCH (20:05)
--- NOTE | 2019-06-18 23:47 | General Progress Note ---
Assessment/Plan Problem List: (1) SOB (shortness of breath) ICD Codes: R06.02 - Shortness of breath SNOMED: 579896712 (2) Cellulitis ICD Codes: L03.90 - Cellulitis, unspecified SNOMED: 073975556 (3) Cellulitis of upper extremity ICD Codes: L03.119 - Cellulitis of unspecified part of limb SNOMED: 276974729 Qualifiers: Qualified Codes: L03.113 - Cellulitis of right upper limb (4) Renal insufficiency ICD Codes: N28.9 - Disorder of kidney and ureter, unspecified SNOMED: 392675022, 819887766 (5) Renal failure (ARF), acute on chronic ICD Codes: N17.9 - Acute kidney failure, unspecified; N18.9 - Chronic kidney disease, unspecified SNOMED: 294588248 (6) Anemia ICD Codes: D64.9 - Anemia, unspecified SNOMED: 462396500 (7) Hypothyroidism ICD Codes: E03.9 - Hypothyroidism, unspecified SNOMED: 64244192 (8) UTI (urinary tract infection) ICD Codes: N39.0 - Urinary tract infection, site not specified SNOMED: 15272073 Status: progressing, unchanged, deteriorating Assessment/Plan: resp failure s/p trach very poor prognosis lethargic chf pna sepsis edema reivewed chart and labs lwound and le fracture Subjective ROS Limited/Unobtainable: Yes Allergies: Coded Allergies: No Known Allergies (Unverified , 05/18/19) Objective Last 24 Hour Vital Signs Date Time Temp Pulse Resp B/P (MAP) Pulse Ox O2 Delivery O2 Flow Rate FiO2 06/18/19 23:35 153/85 06/18/19 23:14 73 16 35 06/18/19 21:50 98.1 84 20 147/80 (102) 99 06/18/19 21:12 82 18 35 06/18/19 20:00 35 06/18/19 20:00 Mechanical Ventilator 06/18/19 20:00 98.5 84 20 145/84 (104) 98 06/18/19 19:15 87 19 35 06/18/19 19:04 87 06/18/19 18:20 146/78 06/18/19 17:02 93 25 35 06/18/19 16:00 35 06/18/19 16:00 98.8 104 20 136/91 (106) 98 06/18/19 16:00 Mechanical Ventilator 06/18/19 16:00 97 06/18/19 14:42 83 24 35 06/18/19 13:00 146/78 06/18/19 12:30 78 18 35 06/18/19 12:00 Mechanical Ventilator 06/18/19 12:00 98.7 76 21 146/78 (100) 98 06/18/19 12:00 69 06/18/19 12:00 35 06/18/19 11:30 80 19 35 06/18/19 09:00 73 06/18/19 08:52 98 06/18/19 08:52 75 18 35 06/18/19 08:00 98.6 73 20 154/81 (105) 96 06/18/19 08:00 35 06/18/19 08:00 Mechanical Ventilator 06/18/19 07:00 79 20 100 Mechanical Ventilator 8.0 60 06/18/19 07:00 79 20 35 06/18/19 05:07 70 19 35 06/18/19 04:00 35 06/18/19 04:00 Mechanical Ventilator 06/18/19 03:46 98.5 50 16 132/60 (84) 99 06/18/19 03:26 54 06/18/19 03:02 62 28 35 06/18/19 01:01 66 26 35 06/18/19 00:00 Mechanical Ventilator 06/18/19 00:00 35 06/18/19 00:00 98.0 67 25 152/75 (100) 99 Intake and Output 06/17/19 06/18/19 19:00 07:00 Intake Total 475 ml 530 ml Output Total 375 ml 850 ml Balance 100 ml -320 ml Free Water 50 ml Tube Feeding 345 ml 480 ml Other 130 ml Output Urine Total 375 ml 700 ml Stool Total 150 ml # Bowel Movements 85 Laboratory Tests 06/18/19 04:10: White Blood Count 6.7, Red Blood Count 2.42L, Hemoglobin 7.5L, Hematocrit 21.9L , Mean Corpuscular Volume 90, Mean Corpuscular Hemoglobin 31.2H, Mean Corpuscular Hemoglobin Concent 34.5, Red Cell Distribution Width 14.9H, Platelet Count 89L, Mean Platelet Volume 5.9L, Neutrophils (%) (Auto) , Lymphocytes (%) (Auto) , Monocytes (%) (Auto) , Eosinophils (%) (Auto) , Basophils (%) (Auto) , Differential Total Cells Counted 100, Neutrophils % ( Manual) 91H, Lymphocytes % (Manual) 5L, Monocytes % (Manual) 4, Eosinophils % ( Manual) 0, Basophils % (Manual) 0, Band Neutrophils 0, Platelet Estimate DecreasedL, Platelet Morphology Normal, Hypochromasia 3+, Anisocytosis 1+, Spherocytes 2+, Sodium Level 149H, Potassium Level 3.6, Chloride Level 112H, Carbon Dioxide Level 33H, Anion Gap 5, Blood Urea Nitrogen 79H, Creatinine 3.9H , Estimat Glomerular Filtration Rate , Glucose Level 154H, Uric Acid 5.1, Calcium Level 7.0L, Phosphorus Level 3.7, Magnesium Level 2.1, Total Bilirubin 0.3, Aspartate Amino Transf (AST/SGOT) 38H, Alanine Aminotransferase (ALT/SGPT) 37, Alkaline Phosphatase 67, C-Reactive Protein, Quantitative 1.4H, Pro-B-Type Natriuretic Peptide 4884H, Total Protein 4.1L, Albumin 1.4L, Globulin 2.7, Albumin/Globulin Ratio 0.5L, Random Vancomycin Level 7.7 Height (Feet): 5 Height (Inches): 7.00 Weight (Pounds): 181 Neck: normal alignment Cardiovascular: normal rate Respiratory/Chest: lungs clear Joslyn Wiggins MD Jun 18, 2019 23:47
[2019-06-19] VITALS: BP 153/85
[2019-06-19 04:00] VITALS: BP 147/78
[2019-06-19 05:05] LABS: RED BLOOD COUNT 3.37 M/UL (4.70-6.10); WHITE BLOOD COUNT 8.2 K/UL (4.8-10.8)
[2019-06-19 05:06] LABS: HEMATOCRIT 30.5 % (42.0-52.0); HEMOGLOBIN 10.4 G/DL (14.2-18.0); MEAN CORPUSCULAR VOLUME 90 FL (80-99)
[2019-06-19 05:07] LABS: PLATELET COUNT 111 K/UL (150-450); RED CELL DISTRIBUTION WIDTH 14.4 % (11.6-14.8)
[2019-06-19 05:12] LABS: ALANINE AMINOTRANSFERASE 34 U/L (12-78); ALBUMIN 1.6 G/DL (3.4-5.0); ALBUMIN/GLOBULIN RATIO 0.5 (1.0-2.7); ALKALINE PHOSPHATASE 88 U/L (46-116); ANION GAP 6 mmol/L (5-15); ASPARTATE AMINO TRANSFERASE 38 U/L (15-37); BILIRUBIN,TOTAL 0.5 MG/DL (0.2-1.0); BLOOD UREA NITROGEN 83 mg/dL (7-18); CALCIUM 7.1 MG/DL (8.5-10.1); CARBON DIOXIDE 31 MMOL/L (21-32); CHLORIDE 111 MMOL/L (98-107); PHOSPHORUS 3.5 MG/DL (2.5-4.9); POTASSIUM 3.3 MMOL/L (3.5-5.1); SODIUM 148 MMOL/L (136-145)
[2019-06-19] MEDS: HydrALAZINE 10mg Tab GT SCH ×4 (05:22→23:08)
--- NOTE | 2019-06-19 06:56 | Pulmonology Progress Note ---
Assessment/Plan Assessment/Plan IMPRESSION AND PLAN: 1. S/p tracheostomy 2. Cellulitis. 3. History of COPD. 4. Hypertension. 5. Afib with RVR; rate controlled 6. Respiratory failure; 7. REnal failure DISCUSSION: 1. S/p trach; 2. Agree with present management and care. 3. Continue medications and HHN with atrovent only 4. DC planning Arsen Whittaker M.D. Subjective Interval Events: None new reported Constitutional: Reports: no symptoms HEENT: Repors: no symptoms Respiratory: Reports: no symptoms Cardiovascular: Reports: no symptoms Allergies: Coded Allergies: No Known Allergies (Unverified , 05/18/19) Objective Last 24 Hour Vital Signs Date Time Temp Pulse Resp B/P (MAP) Pulse Ox O2 Delivery O2 Flow Rate FiO2 06/19/19 05:22 147/78 06/19/19 05:00 77 16 35 06/19/19 04:00 35 06/19/19 04:00 98.1 84 20 147/78 (101) 98 06/19/19 04:00 Mechanical Ventilator 06/19/19 03:29 88 06/19/19 03:15 83 17 35 06/19/19 01:20 83 20 35 06/19/19 00:00 35 06/19/19 00:00 98.1 82 20 153/85 (107) 98 06/19/19 00:00 Mechanical Ventilator 06/18/19 23:35 153/85 06/18/19 23:30 85 06/18/19 23:14 73 16 35 06/18/19 21:50 98.1 84 20 147/80 (102) 99 06/18/19 21:12 82 18 35 06/18/19 20:00 35 06/18/19 20:00 Mechanical Ventilator 06/18/19 20:00 98.5 84 20 145/84 (104) 98 06/18/19 19:15 87 19 35 06/18/19 19:04 87 06/18/19 18:20 146/78 06/18/19 17:02 93 25 35 06/18/19 16:00 35 06/18/19 16:00 98.8 104 20 136/91 (106) 98 06/18/19 16:00 Mechanical Ventilator 06/18/19 16:00 97 06/18/19 14:42 83 24 35 06/18/19 13:00 146/78 06/18/19 12:30 78 18 35 06/18/19 12:00 Mechanical Ventilator 06/18/19 12:00 98.7 76 21 146/78 (100) 98 06/18/19 12:00 69 06/18/19 12:00 35 06/18/19 11:30 80 19 35 06/18/19 09:00 73 06/18/19 08:52 98 06/18/19 08:52 75 18 35 06/18/19 08:00 98.6 73 20 154/81 (105) 96 06/18/19 08:00 35 06/18/19 08:00 Mechanical Ventilator 06/18/19 07:00 79 20 100 Mechanical Ventilator 8.0 60 06/18/19 07:00 79 20 35 Intake and Output 06/18/19 06/19/19 18:59 06:59 Intake Total 535 ml 560 ml Output Total 400 ml 525 ml Balance 135 ml 35 ml Free Water 80 ml IV Total 55 ml Tube Feeding 480 ml 480 ml Output Urine Total 400 ml 450 ml Stool Total 75 ml # Bowel Movements 40 General Appearance: no acute distress HEENT: normocephalic Respiratory/Chest: chest wall non-tender, decreased breath sounds Cardiovascular: normal peripheral pulses Abdomen: normal bowel sounds Laboratory Tests 06/19/19 04:00: White Blood Count 8.2, Red Blood Count 3.37L, Hemoglobin 10.4#L, Hematocrit 30.5 #L, Mean Corpuscular Volume 90, Mean Corpuscular Hemoglobin 30.9, Mean Corpuscular Hemoglobin Concent 34.2, Red Cell Distribution Width 14.4, Platelet Count 111L, Mean Platelet Volume 5.5L, Neutrophils (%) (Auto) , Lymphocytes (%) (Auto) , Monocytes (%) (Auto) , Eosinophils (%) (Auto) , Basophils (%) (Auto) , Sodium Level 148H, Potassium Level 3.3L, Chloride Level 111H, Carbon Dioxide Level 31, Anion Gap 6, Blood Urea Nitrogen 83H, Creatinine 4.0H, Estimat Glomerular Filtration Rate , Glucose Level 148H, Uric Acid 5.0, Calcium Level 7.1L, Phosphorus Level 3.5, Magnesium Level 2.1, Total Bilirubin 0.5, Aspartate Amino Transf (AST/SGOT) 38H, Alanine Aminotransferase (ALT/SGPT) 34, Alkaline Phosphatase 88, C-Reactive Protein, Quantitative 1.8H, Pro-B-Type Natriuretic Peptide [Pending], Total Protein 4.7L, Albumin 1.6L, Globulin 3.1, Albumin/ Globulin Ratio 0.5L, Random Vancomycin Level 7.2 Current Medications Medications (Trade) Dose Ordered Sig/Phillip Route PRN Reason Start Time Stop Time Status Last Admin Dose Admin Acetaminophen (Tylenol) 500 mg Q4H PRN GT Mild Pain/Temp > 100.5 06/17/19 19:43 07/17/19 19:42 Amiodarone HCl (Cordarone) 200 mg DAILY GT 06/18/19 09:00 07/07/19 16:14 06/18/19 09:41 Chlorhexidine Gluconate (Reina-Hex 2%) 1 applic DAILY@2000 TOPIC 06/17/19 20:00 06/26/19 19:59 06/18/19 20:05 Clonidine HCl (Catapres Tab) 0.1 mg Q4H PRN GT For High Blood Pressure 06/17/19 19:44 07/17/19 19:43 Daptomycin 500 mg/ Sodium Chloride 55 ml @ 100 mls/hr Q48H IV 06/18/19 13:00 06/23/19 23:59 06/18/19 13:01 Hydralazine HCl (Apresoline) 10 mg Q6HR GT 06/18/19 12:00 07/18/19 11:59 06/19/19 05:22 Lansoprazole (Prevacid) 30 mg BID GT 06/18/19 09:00 07/06/19 17:59 06/18/19 18:20 Metoprolol Tartrate (Lopressor) 5 mg Q5MIN X 3 IVP 06/17/19 19:45 07/07/19 16:14 Prednisone (predniSONE) 25 mg ONCE GT 06/20/19 09:00 06/20/19 11:00 Prednisone (predniSONE) 30 mg ONCE GT 06/19/19 09:00 06/19/19 11:00 Vitamin D (Vitamin D) 5,000 intlu DAILY GT 06/18/19 09:00 07/07/19 12:59 06/18/19 09:41 Arsen Whittaker MD Jun 19, 2019 06:56
--- NOTE | 2019-06-19 07:30 | Hematology/Onc Progress Note ---
Assessment/Plan Assessment/Plan # Anemia of chronic disease due to underlying chronic medical issues, multifactorial v Gi bleed --> Anemia workup has been reviewed, rule out gi bleed --> No evidence of hemolysis is noted, peripheral smear has been reviewed. --> Hgb goal >7. Transfuse prn. --> Epogen or iron at this time is not particularly indicated --> Medications have been reviewed --> low threshold for gi evaluation in case has occult + --> hgb trend: 9.3-->9.7-->8.1-->7.6-->8-->9.4-->9.2->7.5-->9.3-->8-->8.1-->8.6- ->7.8-->8.3-->7.6-->8.2-->8.6-->10.4 --> transf 05/28/19 with 1 unit prbc, 1 unit on 06/03, again on 06/18 --> transfusion is a emergency, no family, no poa, is okay to transfuse # Right upper arm extremity axillary vein dvt --> agree to continue eliquis --> continue for total of minimum of 3 months --> rescan arm in 3 mo # Thrombocytopenia is due to infection, i.e. cellulitis of upper extremity, likely picc line infection --> as per id on ax --> picc off --> levoflox/vanc-->zosyn/vanc--> zosyn-->dapto/zosyn --> plt trend 208-->132-->146k-->159-->217-->211-->145-->117-->145-->111 # Respiratory failure s/p vent --> has been failing weaning --> trach 06/16 # Renal insufficiency --> per Dr. Mera # Pneumonia --> abx per id # Dehydration. --> goal of euvolemia # Paroxysmal Atrial fibrillation with rapid ventricular response was on amiodarone gtt, now in sinus rhythm. --> per cards On PO amiodarone 200 bid, Lopressor 25 bid # Dysphagia with ng tube --> s/p peg 06/13 # Septic shock --> has required icu admission, and pressor # Dvt ppx eliquis--> continued The timing of this note does not necessarily reflect the time of the patient was seen. Greatly appreciate consultation. Subjective Allergies: Coded Allergies: No Known Allergies (Unverified , 05/18/19) Subjective 05/24: awake and alert, v mask, labs reviewed, apixaban 05/25: as per gi, ngt and eliquis tolerated 05/26: pending clearance but still with ng and nonrebreather 05/27: hypoxic yesterday, deteriorated, coded, now intubated, icu, labs noted 05/28: icu, levophed gtt, hgb 7.6, repeat cbc 05/29: remains in the icu, given prbc last night, no bleeding 05/30: no events, no bleeding, ++ fredo and on pressor 05/31: intubated, bp better on pressor, no bleeding, coag ordered 06/02: reamins ill appearing, on vent, labs noted, on vent, poorly responsive 06/03: no events, no bleeding, labs noted, jeison surgery, and Rn, monitoring plt 06/04: tolerating tube feeds, labs noted, in the icu 06/05: restraints, cxr unchanged, anticoagulants on hold until further notice 06/06: no events, no bleeding, no night sweats, no bleeding 06/08: icu, unable to wean per resp, apixaban restarted, labs reviewed 06/09: minimally responsive, on vent and gt feeds, no bleeding 06/10: no acute events, failed to wean, hd for today, h/h stable 06/11: remains altered, may need trach, coags ordered, no bleeding currently 06/12: no events, no bleeding, trach pending, no major changes 06/13: icu, weaning failed, egd pending, hgb 7.6, repeat cbc 06/15: no events, no bleeding, is more responsive, labs reviewed, no changes, on pressor 06/16: remains on vent, no bleeding, on pressors, labs noted 06/17: now is s/p trach as well, on vent, labs reviewed, jeison Huang 06/18: no new events, transferred out of the icu, s/p peg and trach 06/19: s/p prbc, hgb improved to 10.4, seen by rt, no resp distress Objective Objective Current Medications Medications (Trade) Dose Ordered Sig/Phillip Route PRN Reason Start Time Stop Time Status Last Admin Dose Admin Acetaminophen (Tylenol) 500 mg Q4H PRN GT Mild Pain/Temp > 100.5 06/17/19 19:43 07/17/19 19:42 Amiodarone HCl (Cordarone) 200 mg DAILY GT 06/18/19 09:00 07/07/19 16:14 06/18/19 09:41 Chlorhexidine Gluconate (Reina-Hex 2%) 1 applic DAILY@2000 TOPIC 06/17/19 20:00 06/26/19 19:59 06/18/19 20:05 Clonidine HCl (Catapres Tab) 0.1 mg Q4H PRN GT For High Blood Pressure 06/17/19 19:44 07/17/19 19:43 Daptomycin 500 mg/ Sodium Chloride 55 ml @ 100 mls/hr Q48H IV 06/18/19 13:00 06/23/19 23:59 06/18/19 13:01 Hydralazine HCl (Apresoline) 10 mg Q6HR GT 06/18/19 12:00 07/18/19 11:59 06/19/19 05:22 Lansoprazole (Prevacid) 30 mg BID GT 06/18/19 09:00 07/06/19 17:59 06/18/19 18:20 Metoprolol Tartrate (Lopressor) 5 mg Q5MIN X 3 IVP 06/17/19 19:45 07/07/19 16:14 Prednisone (predniSONE) 25 mg ONCE GT 06/20/19 09:00 06/20/19 11:00 Prednisone (predniSONE) 30 mg ONCE GT 06/19/19 09:00 06/19/19 11:00 Vitamin D (Vitamin D) 5,000 intlu DAILY GT 06/18/19 09:00 07/07/19 12:59 06/18/19 09:41 Last 24 Hour Vital Signs Date Time Temp Pulse Resp B/P (MAP) Pulse Ox O2 Delivery O2 Flow Rate FiO2 06/19/19 05:22 147/78 06/19/19 05:00 77 16 35 1/23/20 04:00 35 06/19/19 04:00 98.1 84 20 147/78 (101) 98 06/19/19 04:00 Mechanical Ventilator 06/19/19 03:29 88 06/19/19 03:15 83 17 35 06/19/19 01:20 83 20 35 06/19/19 00:00 35 06/19/19 00:00 98.1 82 20 153/85 (107) 98 06/19/19 00:00 Mechanical Ventilator 06/18/19 23:35 153/85 06/18/19 23:30 85 06/18/19 23:14 73 16 35 06/18/19 21:50 98.1 84 20 147/80 (102) 99 06/18/19 21:12 82 18 35 06/18/19 20:00 35 06/18/19 20:00 Mechanical Ventilator 06/18/19 20:00 98.5 84 20 145/84 (104) 98 06/18/19 19:15 87 19 35 06/18/19 19:04 87 06/18/19 18:20 146/78 06/18/19 17:02 93 25 35 06/18/19 16:00 35 06/18/19 16:00 98.8 104 20 136/91 (106) 98 06/18/19 16:00 Mechanical Ventilator 06/18/19 16:00 97 06/18/19 14:42 83 24 35 06/18/19 13:00 146/78 06/18/19 12:30 78 18 35 06/18/19 12:00 Mechanical Ventilator 06/18/19 12:00 98.7 76 21 146/78 (100) 98 06/18/19 12:00 69 06/18/19 12:00 35 06/18/19 11:30 80 19 35 06/18/19 09:00 73 06/18/19 08:52 98 06/18/19 08:52 75 18 35 06/18/19 08:00 98.6 73 20 154/81 (105) 96 06/18/19 08:00 35 06/18/19 08:00 Mechanical Ventilator 06/18/19 07:00 79 20 100 Mechanical Ventilator 8.0 60 06/18/19 07:00 79 20 35 06/18/19 05:07 70 19 35 06/18/19 04:00 35 06/18/19 04:00 Mechanical Ventilator 06/18/19 03:46 98.5 50 16 132/60 (84) 99 06/18/19 03:26 54 06/18/19 03:02 62 28 35 06/18/19 01:01 66 26 35 06/18/19 00:00 Mechanical Ventilator 06/18/19 00:00 35 06/18/19 00:00 98.0 67 25 152/75 (100) 99 06/17/19 23:29 52 06/17/19 22:48 75 32 35 06/17/19 21:28 58 17 35 06/17/19 20:09 85 06/17/19 20:00 Mechanical Ventilator 06/17/19 20:00 35 06/17/19 20:00 98.2 81 22 143/79 (100) 99 06/17/19 19:39 72 20 35 06/17/19 18:00 98.4 49 18 142/61 (88) 100 06/17/19 17:29 62 25 35 06/17/19 17:00 67 18 151/81 (104) 100 06/17/19 16:00 Mechanical Ventilator 06/17/19 16:00 67 06/17/19 16:00 54 16 117/55 (75) 100 06/17/19 16:00 35 06/17/19 15:47 80 16 100 06/17/19 15:26 80 16 35 06/17/19 15:00 80 16 150/70 (96) 100 06/17/19 14:00 55 16 149/65 (93) 100 06/17/19 13:00 61 0 116/62 (80) 99 06/17/19 12:41 53 16 35 06/17/19 12:00 98.0 73 0 132/64 (86) 99 06/17/19 12:00 Mechanical Ventilator 06/17/19 12:00 35 06/17/19 12:00 73 06/17/19 11:10 53 16 35 06/17/19 11:00 52 12 136/59 (84) 100 06/17/19 10:00 72 15 147/63 (91) 99 06/17/19 09:00 76 13 152/68 (96) 98 06/17/19 08:50 75 18 35 06/17/19 08:00 98.7 78 9 166/75 (105) 99 06/17/19 08:00 78 06/17/19 08:00 35 06/17/19 08:00 Mechanical Ventilator Intake and Output 06/18/19 06/19/19 18:59 06:59 Intake Total 535 ml 560 ml Output Total 400 ml 525 ml Balance 135 ml 35 ml Free Water 80 ml IV Total 55 ml Tube Feeding 480 ml 480 ml Output Urine Total 400 ml 450 ml Stool Total 75 ml # Bowel Movements 40 Labs Test 06/17/19 03:30 06/18/19 04:10 06/19/19 04:00 White Blood Count 8.0 K/UL (4.8-10.8) 6.7 K/UL (4.8-10.8) 8.2 K/UL (4.8-10.8) Red Blood Count 2.76 M/UL (4.70-6.10) 2.42 M/UL (4.70-6.10) 3.37 M/UL (4.70-6.10) Hemoglobin 8.5 G/DL (14.2-18.0) 7.5 G/DL (14.2-18.0) 10.4 G/DL (14.2-18.0) Hematocrit 25.0 % (42.0-52.0) 21.9 % (42.0-52.0) 30.5 % (42.0-52.0) Mean Corpuscular Volume 90 FL (80-99) 90 FL (80-99) 90 FL (80-99) Mean Corpuscular Hemoglobin 30.8 PG (27.0-31.0) 31.2 PG (27.0-31.0) 30.9 PG (27.0-31.0) Mean Corpuscular Hemoglobin Concent 34.1 G/DL (32.0-36.0) 34.5 G/DL (32.0-36.0) 34.2 G/DL (32.0-36.0) Red Cell Distribution Width 15.0 % (11.6-14.8) 14.9 % (11.6-14.8) 14.4 % (11.6-14.8) Platelet Count 105 K/UL (150-450) 89 K/UL (150-450) 111 K/UL (150-450) Mean Platelet Volume 5.9 FL (6.5-10.1) 5.9 FL (6.5-10.1) 5.5 FL (6.5-10.1) Neutrophils (%) (Auto) % (45.0-75.0) % (45.0-75.0) % (45.0-75.0) Lymphocytes (%) (Auto) % (20.0-45.0) % (20.0-45.0) % (20.0-45.0) Monocytes (%) (Auto) % (1.0-10.0) % (1.0-10.0) % (1.0-10.0) Eosinophils (%) (Auto) % (0.0-3.0) % (0.0-3.0) % (0.0-3.0) Basophils (%) (Auto) % (0.0-2.0) % (0.0-2.0) % (0.0-2.0) Differential Total Cells Counted 100 100 Neutrophils % (Manual) 96 % (45-75) 91 % (45-75) Lymphocytes % (Manual) 2 % (20-45) 5 % (20-45) Monocytes % (Manual) 2 % (1-10) 4 % (1-10) Eosinophils % (Manual) 0 % (0-3) 0 % (0-3) Basophils % (Manual) 0 % (0-2) 0 % (0-2) Band Neutrophils 0 % (0-8) 0 % (0-8) Platelet Estimate Decreased Decreased Platelet Morphology Normal Normal Sodium Level 148 MMOL/L (136-145) 149 MMOL/L (136-145) 148 MMOL/L (136-145) Potassium Level 3.8 MMOL/L (3.5-5.1) 3.6 MMOL/L (3.5-5.1) 3.3 MMOL/L (3.5-5.1) Chloride Level 110 MMOL/L (98-107) 112 MMOL/L (98-107) 111 MMOL/L (98-107) Carbon Dioxide Level 30 MMOL/L (21-32) 33 MMOL/L (21-32) 31 MMOL/L (21-32) Anion Gap 8 mmol/L (5-15) 5 mmol/L (5-15) 6 mmol/L (5-15) Blood Urea Nitrogen 72 mg/dL (7-18) 79 mg/dL (7-18) 83 mg/dL (7-18) Creatinine 3.7 MG/DL (0.55-1.30) 3.9 MG/DL (0.55-1.30) 4.0 MG/DL (0.55-1.30) Estimat Glomerular Filtration Rate mL/min (>60) mL/min (>60) mL/min (>60) Glucose Level 99 MG/DL (74-106) 154 MG/DL (74-106) 148 MG/DL (74-106) Calcium Level 7.1 MG/DL (8.5-10.1) 7.0 MG/DL (8.5-10.1) 7.1 MG/DL (8.5-10.1) Total Creatine Kinase 41 U/L (26-308) Hypochromasia 3+ Anisocytosis 1+ Spherocytes 2+ Uric Acid 5.1 MG/DL (2.6-7.2) 5.0 MG/DL (2.6-7.2) Phosphorus Level 3.7 MG/DL (2.5-4.9) 3.5 MG/DL (2.5-4.9) Magnesium Level 2.1 MG/DL (1.8-2.4) 2.1 MG/DL (1.8-2.4) Total Bilirubin 0.3 MG/DL (0.2-1.0) 0.5 MG/DL (0.2-1.0) Aspartate Amino Transf (AST/SGOT) 38 U/L (15-37) 38 U/L (15-37) Alanine Aminotransferase (ALT/SGPT) 37 U/L (12-78) 34 U/L (12-78) Alkaline Phosphatase 67 U/L (46-116) 88 U/L (46-116) C-Reactive Protein, Quantitative 1.4 mg/dL (0.00-0.90) 1.8 mg/dL (0.00-0.90) Pro-B-Type Natriuretic Peptide 4884 pg/mL (0-125) Total Protein 4.1 G/DL (6.4-8.2) 4.7 G/DL (6.4-8.2) Albumin 1.4 G/DL (3.4-5.0) 1.6 G/DL (3.4-5.0) Globulin 2.7 g/dL 3.1 g/dL Albumin/Globulin Ratio 0.5 (1.0-2.7) 0.5 (1.0-2.7) Random Vancomycin Level 7.7 ug/mL 7.2 ug/mL Height (Feet): 5 Height (Inches): 7.00 Weight (Pounds): 180 Objective PE: Vitals: reviewed General Appearance: NAD HEENT: normocephalic, atraumatic Neck: non-tender, normal alignment Respiratory/Chest: VENT++ ++ trach Cardiovascular/Chest: normal peripheral pulses, normal rate Abdomen: normal bowel sounds, soft, nontender ++ peg Extremities: normal range of motion ++ right arm swelling Suleman Addison MD Jun 19, 2019 07:30
[2019-06-19 08:00] VITALS: BP 151/83
[2019-06-19] MEDS: Vitamin D 1000 IU Tab GT SCH (08:59)
[2019-06-19] MEDS: Amiodarone 200mg tab GT SCH (09:00)
--- NOTE | 2019-06-19 10:02 | Infectious Diseases Prog Note ---
Assessment/Plan Assessment/Plan 84 yo male with PMHx of HTN who was [facility] to the ED [facility] for possible picc line infection. Swelling around PICC line Minimal to no erythema and no purulent drainage Not likely to be infected Blood Cx 05/18/19 - NGTD PICC Tip Cx 05/18/19 - NGTD PICC line removed 05/18/19 Leukocytosis, mild recurrent (on steroids)- resolved No fever OM - Let foot On Vancomycin at nursing End date early May PNA Acute respiratory failure s/p intubation 05/27, s/p trach 06/16/1906/10 CXR: Bilateral upper lobe interstitial opacities and volume loss are unchanged. Diffuse more acute appearing parenchymal disease throughout the left mid and lower lung are unchanged. CXR - Some LLL Atelectasis vs PNA, Nodules CT 05/20/19 - Bilateral upper lobe infiltrates worse on the right. Consider pneumonia. Bilateral pleural effusions moderate in size Sp Cx Marily HTN PLAN - Continue Daptomycin for OM until 06/23/19 weekly CPK -06/10 SP Zosyn #15 - 05/28/19 SP Vancomycin per pharmacy - Stopped for increasing Cr - 05/27/19 SP Levofloxacin #5 - Monitor CBC and Temps -trach/ICU care -aspiration precautions -wound care per hospital protocol Thank you for this consult. [facility] will continue to follow the patient with you during this hospitalization. Subjective Allergies: Coded Allergies: No Known Allergies (Unverified , 05/18/19) Subjective afebrile no leukocytosis Objective Vital Signs Last 24 Hour Vital Signs Date Time Temp Pulse Resp B/P (MAP) Pulse Ox O2 Delivery O2 Flow Rate FiO2 06/19/19 09:05 98 06/19/19 08:55 81 19 35 06/19/19 08:00 78 06/19/19 08:00 Mechanical Ventilator 06/19/19 08:00 35 06/19/19 08:00 97.9 84 20 151/83 (105) 97 06/19/19 07:29 75 17 35 06/19/19 05:22 147/78 06/19/19 05:00 77 16 35 06/19/19 04:00 35 06/19/19 04:00 98.1 84 20 147/78 (101) 98 06/19/19 04:00 Mechanical Ventilator 06/19/19 03:29 88 06/19/19 03:15 83 17 35 06/19/19 01:20 83 20 35 06/19/19 00:00 35 06/19/19 00:00 98.1 82 20 153/85 (107) 98 06/19/19 00:00 Mechanical Ventilator 06/18/19 23:35 153/85 06/18/19 23:30 85 06/18/19 23:14 73 16 35 06/18/19 21:50 98.1 84 20 147/80 (102) 99 06/18/19 21:12 82 18 35 06/18/19 20:00 35 06/18/19 20:00 Mechanical Ventilator 06/18/19 20:00 98.5 84 20 145/84 (104) 98 06/18/19 19:15 87 19 35 06/18/19 19:04 87 06/18/19 18:20 146/78 06/18/19 17:02 93 25 35 06/18/19 16:00 35 06/18/19 16:00 98.8 104 20 136/91 (106) 98 06/18/19 16:00 Mechanical Ventilator 06/18/19 16:00 97 06/18/19 14:42 83 24 35 06/18/19 13:00 146/78 06/18/19 12:30 78 18 35 06/18/19 12:00 Mechanical Ventilator 06/18/19 12:00 98.7 76 21 146/78 (100) 98 06/18/19 12:00 69 06/18/19 12:00 35 06/18/19 11:30 80 19 35 Height (Feet): 5 Height (Inches): 7.00 Weight (Pounds): 180 Objective General Appearance: no apparent distress, lethargic Cardiovascular: normal rate Respiratory/Chest: decreased breath sounds Abdomen: distended Laboratory Tests Test 06/19/19 04:00 White Blood Count 8.2 K/UL (4.8-10.8) Red Blood Count 3.37 M/UL (4.70-6.10) L Hemoglobin 10.4 G/DL (14.2-18.0) #L Hematocrit 30.5 % (42.0-52.0) #L Mean Corpuscular Volume 90 FL (80-99) Mean Corpuscular Hemoglobin 30.9 PG (27.0-31.0) Mean Corpuscular Hemoglobin Concent 34.2 G/DL (32.0-36.0) Red Cell Distribution Width 14.4 % (11.6-14.8) Platelet Count 111 K/UL (150-450) L Mean Platelet Volume 5.5 FL (6.5-10.1) L Neutrophils (%) (Auto) % (45.0-75.0) Lymphocytes (%) (Auto) % (20.0-45.0) Monocytes (%) (Auto) % (1.0-10.0) Eosinophils (%) (Auto) % (0.0-3.0) Basophils (%) (Auto) % (0.0-2.0) Sodium Level 148 MMOL/L (136-145) H Potassium Level 3.3 MMOL/L (3.5-5.1) L Chloride Level 111 MMOL/L (98-107) H Carbon Dioxide Level 31 MMOL/L (21-32) Anion Gap 6 mmol/L (5-15) Blood Urea Nitrogen 83 mg/dL (7-18) H Creatinine 4.0 MG/DL (0.55-1.30) H Estimat Glomerular Filtration Rate mL/min (>60) Glucose Level 148 MG/DL (74-106) H Uric Acid 5.0 MG/DL (2.6-7.2) Calcium Level 7.1 MG/DL (8.5-10.1) L Phosphorus Level 3.5 MG/DL (2.5-4.9) Magnesium Level 2.1 MG/DL (1.8-2.4) Total Bilirubin 0.5 MG/DL (0.2-1.0) Aspartate Amino Transf (AST/SGOT) 38 U/L (15-37) H Alanine Aminotransferase (ALT/SGPT) 34 U/L (12-78) Alkaline Phosphatase 88 U/L (46-116) C-Reactive Protein, Quantitative 1.8 mg/dL (0.00-0.90) H Pro-B-Type Natriuretic Peptide Pending Total Protein 4.7 G/DL (6.4-8.2) L Albumin 1.6 G/DL (3.4-5.0) L Globulin 3.1 g/dL Albumin/Globulin Ratio 0.5 (1.0-2.7) L Random Vancomycin Level 7.2 ug/mL Current Medications Medications (Trade) Dose Ordered Sig/Phillip Route PRN Reason Start Time Stop Time Status Last Admin Dose Admin Acetaminophen (Tylenol) 500 mg Q4H PRN GT Mild Pain/Temp > 100.5 06/17/19 19:43 07/17/19 19:42 Amiodarone HCl (Cordarone) 200 mg DAILY GT 06/18/19 09:00 07/07/19 16:14 06/19/19 09:00 Chlorhexidine Gluconate (Reina-Hex 2%) 1 applic DAILY@2000 TOPIC 06/17/19 20:00 06/26/19 19:59 06/18/19 20:05 Clonidine HCl (Catapres Tab) 0.1 mg Q4H PRN GT For High Blood Pressure 06/17/19 19:44 07/17/19 19:43 Daptomycin 500 mg/ Sodium Chloride 55 ml @ 100 mls/hr Q48H IV 06/18/19 13:00 06/23/19 23:59 06/18/19 13:01 Hydralazine HCl (Apresoline) 10 mg Q6HR GT 06/18/19 12:00 07/18/19 11:59 06/19/19 05:22 Lansoprazole (Prevacid) 30 mg BID GT 06/18/19 09:00 07/06/19 17:59 06/19/19 08:59 Metoprolol Tartrate (Lopressor) 5 mg Q5MIN X 3 IVP 06/17/19 19:45 07/07/19 16:14 Potassium Chloride 100 ml @ 100 mls/hr Q1HR IVPB 06/19/19 09:00 06/19/19 10:59 06/19/19 09:01 Prednisone (predniSONE) 25 mg ONCE GT 06/20/19 09:00 06/20/19 11:00 Prednisone (predniSONE) 30 mg ONCE GT 06/19/19 09:00 06/19/19 11:00 06/19/19 09:07 Vitamin D (Vitamin D) 5,000 intlu DAILY GT 06/18/19 09:00 07/07/19 12:59 06/19/19 08:59 Latha Lowe M.D. Jun 19, 2019 10:02
--- NOTE | 2019-06-19 10:57 | Nephrology Progress Note ---
Assessment/Plan Problem List: (1) Renal failure (ARF), acute on chronic Assessment: Cr rising (2) Cellulitis of upper extremity (3) A-fib (4) Pneumonia (5) UTI (urinary tract infection) (6) Anemia Assessment: worsened (7) Hypothyroidism Assessment - KIMO on CKD - Urinary tract infection. - Anemia- - Dehydration. - Cellulitis of Upper extremity - HTN Plan taper steroids as possible add hydralazine dialysis last 06/14 - will observe renal parameters Trach 06/16 ! DC Midodrine DC IV IV Calcium and PO Vit D ad needed Transfuse one unit PRBcs in ICU- intubated BP meds and Mind altering meds discontinued On midodrine check vanco levels - hold vanco doses previously: Per cardiology Anemia kmuari- Avoid Nephrotoxics Per ID Allow CHANDA inhibitor to continue as long as renal function does not worsen. PICC line has been removed. CXR: Increased right pleural effusion and similar left pleural effusion. Increased interstitial and hazy opacities throughout the lungs. Subjective ROS Limited/Unobtainable: Yes Objective Objective Last 24 Hour Vital Signs Date Time Temp Pulse Resp B/P (MAP) Pulse Ox O2 Delivery O2 Flow Rate FiO2 06/19/19 09:05 98 06/19/19 08:55 81 19 35 06/19/19 08:00 78 06/19/19 08:00 Mechanical Ventilator 06/19/19 08:00 35 06/19/19 08:00 97.9 84 20 151/83 (105) 97 06/19/19 07:29 75 17 35 06/19/19 05:22 147/78 06/19/19 05:00 77 16 35 06/19/19 04:00 35 06/19/19 04:00 98.1 84 20 147/78 (101) 98 06/19/19 04:00 Mechanical Ventilator 06/19/19 03:29 88 06/19/19 03:15 83 17 35 06/19/19 01:20 83 20 35 06/19/19 00:00 35 06/19/19 00:00 98.1 82 20 153/85 (107) 98 06/19/19 00:00 Mechanical Ventilator 06/18/19 23:35 153/85 06/18/19 23:30 85 06/18/19 23:14 73 16 35 06/18/19 21:50 98.1 84 20 147/80 (102) 99 06/18/19 21:12 82 18 35 06/18/19 20:00 35 06/18/19 20:00 Mechanical Ventilator 06/18/19 20:00 98.5 84 20 145/84 (104) 98 06/18/19 19:15 87 19 35 06/18/19 19:04 87 06/18/19 18:20 146/78 06/18/19 17:02 93 25 35 06/18/19 16:00 35 06/18/19 16:00 98.8 104 20 136/91 (106) 98 06/18/19 16:00 Mechanical Ventilator 06/18/19 16:00 97 06/18/19 14:42 83 24 35 06/18/19 13:00 146/78 06/18/19 12:30 78 18 35 06/18/19 12:00 Mechanical Ventilator 06/18/19 12:00 98.7 76 21 146/78 (100) 98 06/18/19 12:00 69 06/18/19 12:00 35 06/18/19 11:30 80 19 35 Intake and Output 06/18/19 06/19/19 19:00 07:00 Intake Total 535 ml 560 ml Output Total 400 ml 525 ml Balance 135 ml 35 ml Free Water 80 ml IV Total 55 ml Tube Feeding 480 ml 480 ml Output Urine Total 400 ml 450 ml Stool Total 75 ml # Bowel Movements 40 Current Medications Medications (Trade) Dose Ordered Sig/Phillip Route PRN Reason Start Time Stop Time Status Last Admin Dose Admin Acetaminophen (Tylenol) 500 mg Q4H PRN GT Mild Pain/Temp > 100.5 06/17/19 19:43 07/17/19 19:42 Amiodarone HCl (Cordarone) 200 mg DAILY GT 06/18/19 09:00 07/07/19 16:14 06/19/19 09:00 Chlorhexidine Gluconate (Reina-Hex 2%) 1 applic DAILY@2000 TOPIC 06/17/19 20:00 06/26/19 19:59 06/18/19 20:05 Clonidine HCl (Catapres Tab) 0.1 mg Q4H PRN GT For High Blood Pressure 06/17/19 19:44 07/17/19 19:43 Daptomycin 500 mg/ Sodium Chloride 55 ml @ 100 mls/hr Q48H IV 06/18/19 13:00 06/23/19 23:59 06/18/19 13:01 Hydralazine HCl (Apresoline) 10 mg Q6HR GT 06/18/19 12:00 07/18/19 11:59 06/19/19 05:22 Lansoprazole (Prevacid) 30 mg BID GT 06/18/19 09:00 07/06/19 17:59 06/19/19 08:59 Metoprolol Tartrate (Lopressor) 5 mg Q5MIN X 3 IVP 06/17/19 19:45 07/07/19 16:14 Potassium Chloride 100 ml @ 100 mls/hr Q1HR IVPB 06/19/19 09:00 06/19/19 10:59 06/19/19 10:42 Prednisone (predniSONE) 25 mg ONCE GT 06/20/19 09:00 06/20/19 11:00 Prednisone (predniSONE) 30 mg ONCE GT 06/19/19 09:00 06/19/19 11:00 06/19/19 09:07 Vitamin D (Vitamin D) 5,000 intlu DAILY GT 06/18/19 09:00 07/07/19 12:59 06/19/19 08:59 Laboratory Tests 06/19/19 04:00: White Blood Count 8.2, Red Blood Count 3.37L, Hemoglobin 10.4#L, Hematocrit 30.5 #L, Mean Corpuscular Volume 90, Mean Corpuscular Hemoglobin 30.9, Mean Corpuscular Hemoglobin Concent 34.2, Red Cell Distribution Width 14.4, Platelet Count 111L, Mean Platelet Volume 5.5L, Neutrophils (%) (Auto) , Lymphocytes (%) (Auto) , Monocytes (%) (Auto) , Eosinophils (%) (Auto) , Basophils (%) (Auto) , Sodium Level 148H, Potassium Level 3.3L, Chloride Level 111H, Carbon Dioxide Level 31, Anion Gap 6, Blood Urea Nitrogen 83H, Creatinine 4.0H, Estimat Glomerular Filtration Rate , Glucose Level 148H, Uric Acid 5.0, Calcium Level 7.1L, Phosphorus Level 3.5, Magnesium Level 2.1, Total Bilirubin 0.5, Aspartate Amino Transf (AST/SGOT) 38H, Alanine Aminotransferase (ALT/SGPT) 34, Alkaline Phosphatase 88, C-Reactive Protein, Quantitative 1.8H, Pro-B-Type Natriuretic Peptide [Pending], Total Protein 4.7L, Albumin 1.6L, Globulin 3.1, Albumin/ Globulin Ratio 0.5L, Random Vancomycin Level 7.2 Height (Feet): 5 Height (Inches): 7.00 Weight (Pounds): 180 General Appearance: no apparent distress EENT: other - trach Cardiovascular: normal rate Respiratory/Chest: decreased breath sounds Abdomen: distended Objective no change Reinier Mera MD Jun 19, 2019 10:57
--- NOTE | 2019-06-19 11:34 | GI Progress Note ---
Assessment/Plan Problems: (1) Anemia ICD Codes: D64.9 - Anemia, unspecified SNOMED: 685543479 (2) Dysphagia ICD Codes: R13.10 - Dysphagia, unspecified SNOMED: 82237063, 006080097 Status: unchanged Status Narrative Discussed with Dr. Lino. Assessment/Plan intubated in ICU NGTF fu pulm fu labs abx per ID on HD poor prognosis PEG if needed The patient was seen and examined at bedside and all new and available data was reviewed in the patients chart. I agree with the above findings, impression and plan. (Patient seen earlier today. Signature stamp does not reflect patient encounter time.). - Valentino Lino MD Subjective Subjective limited Objective Last 24 Hour Vital Signs Date Time Temp Pulse Resp B/P (MAP) Pulse Ox O2 Delivery O2 Flow Rate FiO2 06/19/19 09:05 98 06/19/19 08:55 81 19 35 06/19/19 08:00 78 06/19/19 08:00 Mechanical Ventilator 06/19/19 08:00 35 06/19/19 08:00 97.9 84 20 151/83 (105) 97 06/19/19 07:29 75 17 35 06/19/19 05:22 147/78 06/19/19 05:00 77 16 35 06/19/19 04:00 35 06/19/19 04:00 98.1 84 20 147/78 (101) 98 06/19/19 04:00 Mechanical Ventilator 06/19/19 03:29 88 06/19/19 03:15 83 17 35 06/19/19 01:20 83 20 35 06/19/19 00:00 35 06/19/19 00:00 98.1 82 20 153/85 (107) 98 06/19/19 00:00 Mechanical Ventilator 06/18/19 23:35 153/85 06/18/19 23:30 85 06/18/19 23:14 73 16 35 06/18/19 21:50 98.1 84 20 147/80 (102) 99 06/18/19 21:12 82 18 35 06/18/19 20:00 35 06/18/19 20:00 Mechanical Ventilator 06/18/19 20:00 98.5 84 20 145/84 (104) 98 06/18/19 19:15 87 19 35 06/18/19 19:04 87 06/18/19 18:20 146/78 06/18/19 17:02 93 25 35 06/18/19 16:00 35 06/18/19 16:00 98.8 104 20 136/91 (106) 98 06/18/19 16:00 Mechanical Ventilator 06/18/19 16:00 97 06/18/19 14:42 83 24 35 06/18/19 13:00 146/78 06/18/19 12:30 78 18 35 06/18/19 12:00 Mechanical Ventilator 06/18/19 12:00 98.7 76 21 146/78 (100) 98 06/18/19 12:00 69 06/18/19 12:00 35 Intake and Output 06/18/19 06/19/19 19:00 07:00 Intake Total 535 ml 560 ml Output Total 400 ml 525 ml Balance 135 ml 35 ml Free Water 80 ml IV Total 55 ml Tube Feeding 480 ml 480 ml Output Urine Total 400 ml 450 ml Stool Total 75 ml # Bowel Movements 40 Laboratory Tests Test 06/19/19 04:00 White Blood Count 8.2 K/UL (4.8-10.8) Red Blood Count 3.37 M/UL (4.70-6.10) L Hemoglobin 10.4 G/DL (14.2-18.0) #L Hematocrit 30.5 % (42.0-52.0) #L Mean Corpuscular Volume 90 FL (80-99) Mean Corpuscular Hemoglobin 30.9 PG (27.0-31.0) Mean Corpuscular Hemoglobin Concent 34.2 G/DL (32.0-36.0) Red Cell Distribution Width 14.4 % (11.6-14.8) Platelet Count 111 K/UL (150-450) L Mean Platelet Volume 5.5 FL (6.5-10.1) L Neutrophils (%) (Auto) % (45.0-75.0) Lymphocytes (%) (Auto) % (20.0-45.0) Monocytes (%) (Auto) % (1.0-10.0) Eosinophils (%) (Auto) % (0.0-3.0) Basophils (%) (Auto) % (0.0-2.0) Sodium Level 148 MMOL/L (136-145) H Potassium Level 3.3 MMOL/L (3.5-5.1) L Chloride Level 111 MMOL/L (98-107) H Carbon Dioxide Level 31 MMOL/L (21-32) Anion Gap 6 mmol/L (5-15) Blood Urea Nitrogen 83 mg/dL (7-18) H Creatinine 4.0 MG/DL (0.55-1.30) H Estimat Glomerular Filtration Rate mL/min (>60) Glucose Level 148 MG/DL (74-106) H Uric Acid 5.0 MG/DL (2.6-7.2) Calcium Level 7.1 MG/DL (8.5-10.1) L Phosphorus Level 3.5 MG/DL (2.5-4.9) Magnesium Level 2.1 MG/DL (1.8-2.4) Total Bilirubin 0.5 MG/DL (0.2-1.0) Aspartate Amino Transf (AST/SGOT) 38 U/L (15-37) H Alanine Aminotransferase (ALT/SGPT) 34 U/L (12-78) Alkaline Phosphatase 88 U/L (46-116) C-Reactive Protein, Quantitative 1.8 mg/dL (0.00-0.90) H Pro-B-Type Natriuretic Peptide Pending Total Protein 4.7 G/DL (6.4-8.2) L Albumin 1.6 G/DL (3.4-5.0) L Globulin 3.1 g/dL Albumin/Globulin Ratio 0.5 (1.0-2.7) L Random Vancomycin Level 7.2 ug/mL Height (Feet): 5 Height (Inches): 7.00 Weight (Pounds): 180 General Appearance: no apparent distress Cardiovascular: normal rate Respiratory/Chest: normal breath sounds, no respiratory distress Abdominal Exam: normal bowel sounds, non tender, soft, GT site Extremities: non-tender Thais Aranda [employer] Jun 19, 2019 11:34
[2019-06-19 12:00] VITALS: BP 134/79
[2019-06-19] MEDS ORDERED: NS 275ml ONE (14:28)
[2019-06-19] MEDS ORDERED: Tubing IV Secondary IV ONE (14:28)
--- NOTE | 2019-06-19 15:02 | Surgery Progress Note ---
Surgery Progress Note Subjective Procedure Performed tracheostomy Additional Comments ill appearing labs reviewed no n/v tolerating feeds on vent trach okay Objective Last 24 Hour Vital Signs Date Time Temp Pulse Resp B/P (MAP) Pulse Ox O2 Delivery O2 Flow Rate FiO2 06/19/19 13:21 85 29 35 06/19/19 12:22 134/79 06/19/19 12:00 35 06/19/19 12:00 84 06/19/19 12:00 98.1 84 16 134/79 (97) 98 06/19/19 12:00 Mechanical Ventilator 06/19/19 10:57 90 17 35 06/19/19 09:05 98 06/19/19 08:55 81 19 35 06/19/19 08:00 78 06/19/19 08:00 Mechanical Ventilator 06/19/19 08:00 35 06/19/19 08:00 97.9 84 20 151/83 (105) 97 06/19/19 07:29 75 17 35 06/19/19 05:22 147/78 06/19/19 05:00 77 16 35 06/19/19 04:00 35 06/19/19 04:00 98.1 84 20 147/78 (101) 98 06/19/19 04:00 Mechanical Ventilator 06/19/19 03:29 88 06/19/19 03:15 83 17 35 06/19/19 01:20 83 20 35 06/19/19 00:00 35 06/19/19 00:00 98.1 82 20 153/85 (107) 98 06/19/19 00:00 Mechanical Ventilator 06/18/19 23:35 153/85 06/18/19 23:30 85 06/18/19 23:14 73 16 35 06/18/19 21:50 98.1 84 20 147/80 (102) 99 06/18/19 21:12 82 18 35 06/18/19 20:00 35 06/18/19 20:00 Mechanical Ventilator 06/18/19 20:00 98.5 84 20 145/84 (104) 98 06/18/19 19:15 87 19 35 06/18/19 19:04 87 06/18/19 18:20 146/78 06/18/19 17:02 93 25 35 06/18/19 16:00 35 06/18/19 16:00 98.8 104 20 136/91 (106) 98 06/18/19 16:00 Mechanical Ventilator 06/18/19 16:00 97 I&O Intake and Output 06/18/19 06/19/19 19:00 07:00 Intake Total 535 ml 560 ml Output Total 400 ml 525 ml Balance 135 ml 35 ml Free Water 80 ml IV Total 55 ml Tube Feeding 480 ml 480 ml Output Urine Total 400 ml 450 ml Stool Total 75 ml # Bowel Movements 40 Dressing: other Wound: other Drains: other Cardiovascular: RSR Respiratory: decreased breath sounds Abdomen: soft, present bowel sounds Extremities: no cyanosis, other Laboratory Tests Test 06/19/19 04:00 White Blood Count 8.2 K/UL (4.8-10.8) Red Blood Count 3.37 M/UL (4.70-6.10) L Hemoglobin 10.4 G/DL (14.2-18.0) #L Hematocrit 30.5 % (42.0-52.0) #L Mean Corpuscular Volume 90 FL (80-99) Mean Corpuscular Hemoglobin 30.9 PG (27.0-31.0) Mean Corpuscular Hemoglobin Concent 34.2 G/DL (32.0-36.0) Red Cell Distribution Width 14.4 % (11.6-14.8) Platelet Count 111 K/UL (150-450) L Mean Platelet Volume 5.5 FL (6.5-10.1) L Neutrophils (%) (Auto) % (45.0-75.0) Lymphocytes (%) (Auto) % (20.0-45.0) Monocytes (%) (Auto) % (1.0-10.0) Eosinophils (%) (Auto) % (0.0-3.0) Basophils (%) (Auto) % (0.0-2.0) Sodium Level 148 MMOL/L (136-145) H Potassium Level 3.3 MMOL/L (3.5-5.1) L Chloride Level 111 MMOL/L (98-107) H Carbon Dioxide Level 31 MMOL/L (21-32) Anion Gap 6 mmol/L (5-15) Blood Urea Nitrogen 83 mg/dL (7-18) H Creatinine 4.0 MG/DL (0.55-1.30) H Estimat Glomerular Filtration Rate mL/min (>60) Glucose Level 148 MG/DL (74-106) H Uric Acid 5.0 MG/DL (2.6-7.2) Calcium Level 7.1 MG/DL (8.5-10.1) L Phosphorus Level 3.5 MG/DL (2.5-4.9) Magnesium Level 2.1 MG/DL (1.8-2.4) Total Bilirubin 0.5 MG/DL (0.2-1.0) Aspartate Amino Transf (AST/SGOT) 38 U/L (15-37) H Alanine Aminotransferase (ALT/SGPT) 34 U/L (12-78) Alkaline Phosphatase 88 U/L (46-116) C-Reactive Protein, Quantitative 1.8 mg/dL (0.00-0.90) H Pro-B-Type Natriuretic Peptide Pending Total Protein 4.7 G/DL (6.4-8.2) L Albumin 1.6 G/DL (3.4-5.0) L Globulin 3.1 g/dL Albumin/Globulin Ratio 0.5 (1.0-2.7) L Random Vancomycin Level 7.2 ug/mL Plan Problems: (1) Cellulitis of upper extremity Assessment & Plan: 84M with RUE cellulitis, edema, erythema. no drainage. has RUE picc line recommend removal of picc. removed at bedside by myself on 05/18. pressure held, hemostasis noted, dressings applied. cath tip sent for cultures DVT duplex studies with acute thrombus IV Abx as per ID UA pending Cx results keep RUE elevated on pillows okay for diet AM labs anticoagulation off load pressure for dti noted cellulitis and edema improved deteriorated intubated on vent support likely respiratory insufficiency labs ordered wean vent okay for tube feeds via ng - cont as tolerated wean vent am labs HD as per renal will follow with recs thank you (2) Cellulitis Assessment & Plan: Pt presented on admission with reabsorbing blister lateral R heel. Base of injury indurated with delineated margins(L)4cm x (W)3cm.Non- blanching erythema Sacrum ,R and L buttocks(L)8.5cm x (W)9cm, with a partial thickness pressure injury noted to L buttocks. Base of wound is moist and viable (L)2.3cm x (W)3cm. Area around wound tender when minimally palpated. Pt noted to be wearing splint L foot. Per pt he fractured foot a few weeks ago. Splint removed to assess skin integrity. L heel and malleoli are pink and blanchable.Cavilon Skin Barrier applied to L heel and malleoli and each area covered with Optifoam drsg. Splint reapplied. No other skin concerns noted. unchanged Partial Thickness pressure injury L buttocks resolved . Non-blanching erythema without induration noted to Sacrum,R and L buttocks. (L)8cm x (W)9cm. Scrotum is grossly enlarged and is erythematous and macerated. Penile shaft is grossly swollen .Pt noted to have a partially opened blood blister with 25% biofilm at base of shaft of penis.(L)4.5cm x (W)2.5cm. Bilat groin, medial /posterior aspects of both upper thighs are erythematous and denuded. R lower ext edematous. R heel blister reabsorbed. Non--blanching erythema without induration noted to R heel. Splint removed from L foot. Optifoam drsgs removed from malleoli and heel. Pt noted to have developed several DTPI's despite having Optifoam drsgs. DTPI noted to L achilles . Base of wound is purple and fluctuant (L)0.6cm x (W) 2.7cm.DTPI noted to medial L malleolus(L)0.2cm x (W)0.3cm.Base of wound is purple with marginal erythema. DTPI noted to dorsal L foot. Base of wound is purple with marginal erythema along borders (L)0.9cm x (W)0.5cm.L heel is boggy with non-blanching erythema. Cavilon Skin Barrier applied to affected areas on L foot . Dorsal L foot ,Achilles .R and L malleoli and L heel each covered with Optifoam drsg. Non-blanching erythema without induration noted to lateral L tibia. At plantar aspect of L hallux small dry eschar noted. No erythema or fluctuance periwound. (L)0.5cm x (W)0.4cm. IN addition to Optifoam drsgs placed over each bony prominence of L foot ABD pads placed over dorsal and plantar L foot , Abd pads aligned along L tibia. Splint realigned to L foot Wrapped loosely with Kerlix then wrapped loosely with [place] wrap. L foot floated off mattress with pillow. Tx.Plan: Apply Cavilon to Dorsal L foot. L achilles .Medial/Lateral Malleoli L Foot and L heel. Cover each site with Optifoam drsg. Change every 7 days and prn. Apply Cavilon Plantar L foot. Cover with Optifoam drsg. Change every 7 days and prn. Apply Moisture Barrier Paste to sacrum. Cover with Optifoam drsg. Changee very 7 days and prn. Apply Cavilon Skin Barrier to Both heels. Cover each heel with Optifoam drsg. Change every 7 days and prn. Cleanse wound Shaft of penis with saline. Apply Moisture Barrier Paste Daily and prn. Apply Moisture Barrier Paste to Bilat groin, Scrotum, Medial/Posterior aspects of both upper thighs with each perineal care. Reposition at least every 2hours or as tolerated. Off-load heels with pillows. APM/LA L Mattress overlay. (3) SOB (shortness of breath) Assessment & Plan: Unfortunately patient has been in the intensive care unit on ventilatory support unable to be weaned from vent. Will likely require prolonged ventilatory support. Respiratory insufficiency not improving. Patient is full code as per identifiable documentation in patient's chart and medical record. No family or next kin available. Given patient's wishes current condition and course of a care tracheostomy is indicated recommended. Tracheostomy would be medically necessary as a next step in patient's care plan. s/p trach wean vent (4) Deep tissue injury Assessment & Plan: appreciate vascular input Bennett Logan Jun 19, 2019 15:02
[2019-06-19 16:00] VITALS: BP 144/78
[2019-06-19 20:00] VITALS: BP 128/68
[2019-06-19] MEDS: Dyna-Hex 2% Top Sol 2oz TOPIC SCH (20:11)
--- NOTE | 2019-06-19 20:59 | General Progress Note ---
Assessment/Plan Problem List: (1) SOB (shortness of breath) ICD Codes: R06.02 - Shortness of breath SNOMED: 451958158 (2) Cellulitis ICD Codes: L03.90 - Cellulitis, unspecified SNOMED: 901756019 (3) Cellulitis of upper extremity ICD Codes: L03.119 - Cellulitis of unspecified part of limb SNOMED: 675899009 Qualifiers: Qualified Codes: L03.113 - Cellulitis of right upper limb (4) Renal insufficiency ICD Codes: N28.9 - Disorder of kidney and ureter, unspecified SNOMED: 314299167, 610468483 (5) Renal failure (ARF), acute on chronic ICD Codes: N17.9 - Acute kidney failure, unspecified; N18.9 - Chronic kidney disease, unspecified SNOMED: 015562406 (6) Anemia ICD Codes: D64.9 - Anemia, unspecified SNOMED: 458458241 (7) Hypothyroidism ICD Codes: E03.9 - Hypothyroidism, unspecified SNOMED: 19803992 (8) UTI (urinary tract infection) ICD Codes: N39.0 - Urinary tract infection, site not specified SNOMED: 84224193 Status: progressing, unchanged Assessment/Plan: trach chf pna sepsis edema pna still edematious Subjective ROS Limited/Unobtainable: Yes Allergies: Coded Allergies: No Known Allergies (Unverified , 05/18/19) Objective Last 24 Hour Vital Signs Date Time Temp Pulse Resp B/P (MAP) Pulse Ox O2 Delivery O2 Flow Rate FiO2 06/19/19 18:55 89 24 35 06/19/19 17:48 144/78 06/19/19 17:22 95 22 35 06/19/19 16:00 98.4 96 18 144/78 (100) 95 06/19/19 16:00 35 06/19/19 16:00 92 06/19/19 16:00 Mechanical Ventilator 06/19/19 15:45 99 22 35 06/19/19 13:21 85 29 35 06/19/19 12:22 134/79 06/19/19 12:00 35 06/19/19 12:00 84 06/19/19 12:00 98.1 84 16 134/79 (97) 98 06/19/19 12:00 Mechanical Ventilator 06/19/19 10:57 90 17 35 1/23/20 09:05 98 06/19/19 08:55 81 19 35 06/19/19 08:00 78 06/19/19 08:00 Mechanical Ventilator 06/19/19 08:00 35 06/19/19 08:00 97.9 84 20 151/83 (105) 97 06/19/19 07:29 75 17 35 06/19/19 05:22 147/78 06/19/19 05:00 77 16 35 06/19/19 04:00 35 06/19/19 04:00 98.1 84 20 147/78 (101) 98 06/19/19 04:00 Mechanical Ventilator 06/19/19 03:29 88 06/19/19 03:15 83 17 35 06/19/19 01:20 83 20 35 06/19/19 00:00 35 06/19/19 00:00 98.1 82 20 153/85 (107) 98 06/19/19 00:00 Mechanical Ventilator 06/18/19 23:35 153/85 06/18/19 23:30 85 06/18/19 23:14 73 16 35 06/18/19 21:50 98.1 84 20 147/80 (102) 99 06/18/19 21:12 82 18 35 Intake and Output 06/18/19 06/19/19 19:00 07:00 Intake Total 535 ml 560 ml Output Total 400 ml 525 ml Balance 135 ml 35 ml Free Water 80 ml IV Total 55 ml Tube Feeding 480 ml 480 ml Output Urine Total 400 ml 450 ml Stool Total 75 ml # Bowel Movements 40 Laboratory Tests 06/19/19 04:00: White Blood Count 8.2, Red Blood Count 3.37L, Hemoglobin 10.4#L, Hematocrit 30.5 #L, Mean Corpuscular Volume 90, Mean Corpuscular Hemoglobin 30.9, Mean Corpuscular Hemoglobin Concent 34.2, Red Cell Distribution Width 14.4, Platelet Count 111L, Mean Platelet Volume 5.5L, Neutrophils (%) (Auto) , Lymphocytes (%) (Auto) , Monocytes (%) (Auto) , Eosinophils (%) (Auto) , Basophils (%) (Auto) , Sodium Level 148H, Potassium Level 3.3L, Chloride Level 111H, Carbon Dioxide Level 31, Anion Gap 6, Blood Urea Nitrogen 83H, Creatinine 4.0H, Estimat Glomerular Filtration Rate , Glucose Level 148H, Uric Acid 5.0, Calcium Level 7.1L, Phosphorus Level 3.5, Magnesium Level 2.1, Total Bilirubin 0.5, Aspartate Amino Transf (AST/SGOT) 38H, Alanine Aminotransferase (ALT/SGPT) 34, Alkaline Phosphatase 88, C-Reactive Protein, Quantitative 1.8H, Pro-B-Type Natriuretic Peptide [Pending], Total Protein 4.7L, Albumin 1.6L, Globulin 3.1, Albumin/ Globulin Ratio 0.5L, Random Vancomycin Level 7.2 Height (Feet): 5 Height (Inches): 7.00 Weight (Pounds): 180 General Appearance: confused Respiratory/Chest: crackles/rales Joslyn Wiggins MD Jun 19, 2019 20:59
--- NOTE | 2019-06-19 23:11 | Cardiology Progress Note ---
Assessment/Plan Assessment/Plan 1. Paroxysmal atrial fibrillation now in sinus rhythm,continue amiodarone. 2. Septic shock, resolved, likely due to bilateral PNA. 3. Oliguric acute kidney injury, CXR shows B/L pulmonary edema, on HD. 4. Small pericardial effusion with pleural effusion, s/p HD. 5. B/L pleural effusion. 6. Ventilatory derived respiratory failure, s/p tracheostomy tube placement. 7. Dysphagia, s/p PEG placement. 8. Anemia. Subjective Subjective Sinus rhythm at rate of 84. Non-verbal. Objective Last 24 Hour Vital Signs Date Time Temp Pulse Resp B/P (MAP) Pulse Ox O2 Delivery O2 Flow Rate FiO2 06/19/19 23:08 130/67 06/19/19 22:37 84 20 35 06/19/19 20:44 92 23 35 06/19/19 20:00 35 06/19/19 20:00 Mechanical Ventilator 06/19/19 20:00 98.4 87 22 128/68 (88) 96 06/19/19 19:28 84 06/19/19 18:55 89 24 35 06/19/19 17:48 144/78 06/19/19 17:22 95 22 35 06/19/19 16:00 98.4 96 18 144/78 (100) 95 06/19/19 16:00 35 06/19/19 16:00 92 06/19/19 16:00 Mechanical Ventilator 06/19/19 15:45 99 22 35 06/19/19 13:21 85 29 35 06/19/19 12:22 134/79 06/19/19 12:00 35 06/19/19 12:00 84 06/19/19 12:00 98.1 84 16 134/79 (97) 98 06/19/19 12:00 Mechanical Ventilator 06/19/19 10:57 90 17 35 06/19/19 09:05 98 06/19/19 08:55 81 19 35 06/19/19 08:00 78 06/19/19 08:00 Mechanical Ventilator 06/19/19 08:00 35 06/19/19 08:00 97.9 84 20 151/83 (105) 97 06/19/19 07:29 75 17 35 06/19/19 05:22 147/78 06/19/19 05:00 77 16 35 06/19/19 04:00 35 06/19/19 04:00 98.1 84 20 147/78 (101) 98 06/19/19 04:00 Mechanical Ventilator 06/19/19 03:29 88 06/19/19 03:15 83 17 35 06/19/19 01:20 83 20 35 06/19/19 00:00 35 06/19/19 00:00 98.1 82 20 153/85 (107) 98 06/19/19 00:00 Mechanical Ventilator 06/18/19 23:35 153/85 06/18/19 23:30 85 06/18/19 23:14 73 16 35 Intake and Output 06/18/19 06/19/19 19:00 07:00 Intake Total 535 ml 560 ml Output Total 400 ml 525 ml Balance 135 ml 35 ml Free Water 80 ml IV Total 55 ml Tube Feeding 480 ml 480 ml Output Urine Total 400 ml 450 ml Stool Total 75 ml # Bowel Movements 40 2D Echo: EF 65%,Mod AR,Elevated RAP, RVSP 30,Small pericardial eff, pleural effusion Laboratory Tests Test 06/19/19 04:00 White Blood Count 8.2 K/UL (4.8-10.8) Red Blood Count 3.37 M/UL (4.70-6.10) L Hemoglobin 10.4 G/DL (14.2-18.0) #L Hematocrit 30.5 % (42.0-52.0) #L Mean Corpuscular Volume 90 FL (80-99) Mean Corpuscular Hemoglobin 30.9 PG (27.0-31.0) Mean Corpuscular Hemoglobin Concent 34.2 G/DL (32.0-36.0) Red Cell Distribution Width 14.4 % (11.6-14.8) Platelet Count 111 K/UL (150-450) L Mean Platelet Volume 5.5 FL (6.5-10.1) L Neutrophils (%) (Auto) % (45.0-75.0) Lymphocytes (%) (Auto) % (20.0-45.0) Monocytes (%) (Auto) % (1.0-10.0) Eosinophils (%) (Auto) % (0.0-3.0) Basophils (%) (Auto) % (0.0-2.0) Sodium Level 148 MMOL/L (136-145) H Potassium Level 3.3 MMOL/L (3.5-5.1) L Chloride Level 111 MMOL/L (98-107) H Carbon Dioxide Level 31 MMOL/L (21-32) Anion Gap 6 mmol/L (5-15) Blood Urea Nitrogen 83 mg/dL (7-18) H Creatinine 4.0 MG/DL (0.55-1.30) H Estimat Glomerular Filtration Rate mL/min (>60) Glucose Level 148 MG/DL (74-106) H Uric Acid 5.0 MG/DL (2.6-7.2) Calcium Level 7.1 MG/DL (8.5-10.1) L Phosphorus Level 3.5 MG/DL (2.5-4.9) Magnesium Level 2.1 MG/DL (1.8-2.4) Total Bilirubin 0.5 MG/DL (0.2-1.0) Aspartate Amino Transf (AST/SGOT) 38 U/L (15-37) H Alanine Aminotransferase (ALT/SGPT) 34 U/L (12-78) Alkaline Phosphatase 88 U/L (46-116) C-Reactive Protein, Quantitative 1.8 mg/dL (0.00-0.90) H Pro-B-Type Natriuretic Peptide Pending Total Protein 4.7 G/DL (6.4-8.2) L Albumin 1.6 G/DL (3.4-5.0) L Globulin 3.1 g/dL Albumin/Globulin Ratio 0.5 (1.0-2.7) L Random Vancomycin Level 7.2 ug/mL Objective HEENT: Atraumatic and normocephalic. Anicteric. Pupils are equal, round, and reactive to light and accommodation. Extraocular muscles intact. NECK: JVP less than 5 cm. No carotid bruit. Carotid upstroke is 2+ bilaterally. + trach in place. CARDIOVASCULAR: Normal S1, S2. Regular rate and rhythm. No murmurs, gallops, or rubs. PMI is at fourth intercostal space in the midclavicular line. LUNGS: Diminished both bases. ABDOMEN: Soft, nontender, and nondistended. No hepatosplenomegaly. Positive bowel sounds. + PEG in place. EXTREMITIES: No evidence of edema, clubbing, or cyanosis. Del Garcia MD Jun 19, 2019 23:11
--- NOTE | 2019-06-19 23:45 | Progress Note ---
DATE: 06/19/2019 SUBJECTIVE: The patient is presenting with waxing and waning consciousness. He is still confused. No in the hospital. Ill-appearing. MENTAL STATUS EXAMINATION: Alert, oriented x2. Mood is anxious. Affect is flat. Thought process is concrete. Thought content, no suicidal or homicidal ideation. Cognition is impaired. ASSESSMENT: Acute encephalopathy. PLAN: We will continue current psychotropic medication. Piter Pedraza M.D. DR: MAKAYLA JOB#: [id number] CC: SARA
[2019-06-20] VITALS: BP 124/67
[2019-06-20 04:00] VITALS: BP 130/70
[2019-06-20] MEDS: HydrALAZINE 10mg Tab GT SCH ×4 (05:00→23:14)
--- NOTE | 2019-06-20 06:06 | Hematology/Onc Progress Note ---
Assessment/Plan Assessment/Plan # Anemia of chronic disease due to underlying chronic medical issues, multifactorial v Gi bleed --> Anemia workup has been reviewed, rule out gi bleed --> No evidence of hemolysis is noted, peripheral smear has been reviewed. --> Hgb goal >7. Transfuse prn. --> Epogen or iron at this time is not particularly indicated --> Medications have been reviewed --> low threshold for gi evaluation in case has occult + --> hgb trend: 9.3-->9.7-->8.1-->7.6-->8-->9.4-->9.2->7.5-->9.3-->8-->8.1-->8.6- ->7.8-->8.3-->7.6-->8.2-->8.6-->10.4 --> transf 05/28/19 with 1 unit prbc, 1 unit on 06/03, again on 06/18 --> transfusion is a emergency, no family, no poa, is okay to transfuse # Right upper arm extremity axillary vein dvt --> agree to continue eliquis --> continue for total of minimum of 3 months --> rescan arm in 3 mo # Thrombocytopenia is due to infection, i.e. cellulitis of upper extremity, likely picc line infection --> as per id on ax --> picc off --> levoflox/vanc-->zosyn/vanc--> zosyn-->dapto/zosyn --> plt trend 208-->132-->146k-->159-->217-->211-->145-->117-->145-->111 # Respiratory failure s/p vent --> has been failing weaning --> trach 06/16 # KIMO on CKD --> per Dr. Mera --> HD as needed # Pneumonia --> abx per id # Dehydration. --> goal of euvolemia # Paroxysmal Atrial fibrillation with rapid ventricular response was on amiodarone gtt, now in sinus rhythm. --> per cards On PO amiodarone 200 bid, Lopressor 25 bid # Dysphagia with ng tube --> s/p peg 06/13 # Septic shock --> has required icu admission, and pressor # Dvt ppx eliquis--> continued The timing of this note does not necessarily reflect the time of the patient was seen. Greatly appreciate consultation. Subjective Constitutional: Denies: no symptoms, chills, fever, malaise, weakness, other HEENT: Denies: no symptoms, eye pain, blurred vision, tearing, double vision, ear pain, ear discharge, nose pain, nose congestion, throat pain, throat swelling, mouth pain, mouth swelling, other Cardiovascular: Denies: no symptoms, chest pain, edema, irregular heart rate, lightheadedness, palpitations, syncope, other Respiratory: Denies: no symptoms, cough, shortness of breath, SOB with excertion, SOB at rest, sputum, wheezing, other Gastrointestinal/Abdominal: Denies: no symptoms, abdomen distended, abdominal pain, black stools, tarry stools, blood in stool, constipated, diarrhea, difficulty swallowing, nausea, poor appetite, poor fluid intake, rectal bleeding , vomiting, other Endocrine: Denies: no symptoms, excessive sweating, flushing, intolerance to cold, intolerance to heat, increased hunger, increased thirst, increased urine, unexplained weight gain, unexplained weight loss, other Allergies: Coded Allergies: No Known Allergies (Unverified , 05/18/19) Subjective 05/24: awake and alert, v mask, labs reviewed, apixaban 05/25: as per gi, ngt and eliquis tolerated 05/26: pending clearance but still with ng and nonrebreather 05/27: hypoxic yesterday, deteriorated, coded, now intubated, icu, labs noted 05/28: icu, levophed gtt, hgb 7.6, repeat cbc 05/29: remains in the icu, given prbc last night, no bleeding 05/30: no events, no bleeding, ++ fredo and on pressor 05/31: intubated, bp better on pressor, no bleeding, coag ordered 06/02: reamins ill appearing, on vent, labs noted, on vent, poorly responsive 06/03: no events, no bleeding, labs noted, dw surgery, and Rn, monitoring plt 06/04: tolerating tube feeds, labs noted, in the icu 06/05: restraints, cxr unchanged, anticoagulants on hold until further notice 06/06: no events, no bleeding, no night sweats, no bleeding 06/08: icu, unable to wean per resp, apixaban restarted, labs reviewed 06/09: minimally responsive, on vent and gt feeds, no bleeding 06/10: no acute events, failed to wean, hd for today, h/h stable 06/11: remains altered, may need trach, coags ordered, no bleeding currently 06/12: no events, no bleeding, trach pending, no major changes 06/13: icu, weaning failed, egd pending, hgb 7.6, repeat cbc 06/15: no events, no bleeding, is more responsive, labs reviewed, no changes, on pressor 06/16: remains on vent, no bleeding, on pressors, labs noted 06/17: now is s/p trach as well, on vent, labs reviewed, jeison Huang 06/18: no new events, transferred out of the icu, s/p peg and trach 06/19: s/p prbc, hgb improved to 10.4, seen by rt, no resp distress 06/20: remains confused, getting amio per cards, hgb better, psych recs noted Objective Objective Current Medications Medications (Trade) Dose Ordered Sig/Phillip Route PRN Reason Start Time Stop Time Status Last Admin Dose Admin Acetaminophen (Tylenol) 500 mg Q4H PRN GT Mild Pain/Temp > 100.5 06/17/19 19:43 07/17/19 19:42 Amiodarone HCl (Cordarone) 200 mg DAILY GT 06/18/19 09:00 07/07/19 16:14 06/19/19 09:00 Chlorhexidine Gluconate (Reina-Hex 2%) 1 applic DAILY@1999 TOPIC 06/17/19 20:00 06/26/19 19:59 06/19/19 20:11 Clonidine HCl (Catapres Tab) 0.1 mg Q4H PRN GT For High Blood Pressure 06/17/19 19:44 07/17/19 19:43 Daptomycin 500 mg/ Sodium Chloride 55 ml @ 100 mls/hr Q48H IV 06/18/19 13:00 06/23/19 23:59 06/18/19 13:01 Hydralazine HCl (Apresoline) 10 mg Q6HR GT 06/18/19 12:00 07/18/19 11:59 06/20/19 05:00 Lansoprazole (Prevacid) 30 mg BID GT 06/18/19 09:00 07/06/19 17:59 06/19/19 17:48 Metoprolol Tartrate (Lopressor) 5 mg Q5MIN X 3 IVP 06/17/19 19:45 07/07/19 16:14 Prednisone (predniSONE) 25 mg ONCE GT 06/20/19 09:00 06/20/19 11:00 Vitamin D (Vitamin D) 5,000 intlu DAILY GT 06/18/19 09:00 07/07/19 12:59 06/19/19 08:59 Last 24 Hour Vital Signs Date Time Temp Pulse Resp B/P (MAP) Pulse Ox O2 Delivery O2 Flow Rate FiO2 06/20/19 05:00 130/70 06/20/19 04:46 88 17 35 06/20/19 04:00 98.1 66 16 130/70 (90) 98 06/20/19 04:00 35 06/20/19 04:00 Mechanical Ventilator 06/20/19 03:46 72 06/20/19 02:49 83 16 35 06/20/19 00:39 81 20 35 06/20/19 00:00 Mechanical Ventilator 06/20/19 00:00 98.9 82 21 124/67 (86) 97 06/20/19 00:00 35 06/19/19 23:26 74 06/19/19 23:08 130/67 06/19/19 22:37 84 20 35 06/19/19 20:44 92 23 35 06/19/19 20:00 35 06/19/19 20:00 Mechanical Ventilator 06/19/19 20:00 98.4 87 22 128/68 (88) 96 06/19/19 19:28 84 06/19/19 18:55 89 24 35 06/19/19 17:48 144/78 06/19/19 17:22 95 22 35 06/19/19 16:00 98.4 96 18 144/78 (100) 95 06/19/19 16:00 35 06/19/19 16:00 92 06/19/19 16:00 Mechanical Ventilator 06/19/19 15:45 99 22 35 06/19/19 13:21 85 29 35 06/19/19 12:22 134/79 06/19/19 12:00 35 06/19/19 12:00 84 06/19/19 12:00 98.1 84 16 134/79 (97) 98 06/19/19 12:00 Mechanical Ventilator 06/19/19 10:57 90 17 35 06/19/19 09:05 98 06/19/19 08:55 81 19 35 06/19/19 08:00 78 06/19/19 08:00 Mechanical Ventilator 06/19/19 08:00 35 06/19/19 08:00 97.9 84 20 151/83 (105) 97 06/19/19 07:29 75 17 35 06/19/19 05:22 147/78 06/19/19 05:00 77 16 35 06/19/19 04:00 35 06/19/19 04:00 98.1 84 20 147/78 (101) 98 06/19/19 04:00 Mechanical Ventilator 06/19/19 03:29 88 06/19/19 03:15 83 17 35 06/19/19 01:20 83 20 35 06/19/19 00:00 35 06/19/19 00:00 98.1 82 20 153/85 (107) 98 06/19/19 00:00 Mechanical Ventilator 06/18/19 23:35 153/85 06/18/19 23:30 85 06/18/19 23:14 73 16 35 06/18/19 21:50 98.1 84 20 147/80 (102) 99 06/18/19 21:12 82 18 35 06/18/19 20:00 35 06/18/19 20:00 Mechanical Ventilator 06/18/19 20:00 98.5 84 20 145/84 (104) 98 06/18/19 19:15 87 19 35 06/18/19 19:04 87 06/18/19 18:20 146/78 06/18/19 17:02 93 25 35 06/18/19 16:00 35 06/18/19 16:00 98.8 104 20 136/91 (106) 98 06/18/19 16:00 Mechanical Ventilator 06/18/19 16:00 97 1/22/20 14:42 83 24 35 06/18/19 13:00 146/78 06/18/19 12:30 78 18 35 06/18/19 12:00 Mechanical Ventilator 06/18/19 12:00 98.7 76 21 146/78 (100) 98 06/18/19 12:00 69 06/18/19 12:00 35 06/18/19 11:30 80 19 35 06/18/19 09:00 73 06/18/19 08:52 98 06/18/19 08:52 75 18 35 06/18/19 08:00 98.6 73 20 154/81 (105) 96 06/18/19 08:00 35 06/18/19 08:00 Mechanical Ventilator 06/18/19 07:00 79 20 100 Mechanical Ventilator 8.0 60 06/18/19 07:00 79 20 35 Intake and Output 06/19/19 06/20/19 19:00 07:00 Intake Total 630 ml 450 ml Output Total 460 ml 550 ml Balance 170 ml -100 ml Free Water 150 ml 50 ml Tube Feeding 480 ml 400 ml Output Urine Total 400 ml 400 ml Stool Total 60 ml 150 ml Labs Test 06/18/19 04:10 06/19/19 04:00 White Blood Count 6.7 K/UL (4.8-10.8) 8.2 K/UL (4.8-10.8) Red Blood Count 2.42 M/UL (4.70-6.10) 3.37 M/UL (4.70-6.10) Hemoglobin 7.5 G/DL (14.2-18.0) 10.4 G/DL (14.2-18.0) Hematocrit 21.9 % (42.0-52.0) 30.5 % (42.0-52.0) Mean Corpuscular Volume 90 FL (80-99) 90 FL (80-99) Mean Corpuscular Hemoglobin 31.2 PG (27.0-31.0) 30.9 PG (27.0-31.0) Mean Corpuscular Hemoglobin Concent 34.5 G/DL (32.0-36.0) 34.2 G/DL (32.0-36.0) Red Cell Distribution Width 14.9 % (11.6-14.8) 14.4 % (11.6-14.8) Platelet Count 89 K/UL (150-450) 111 K/UL (150-450) Mean Platelet Volume 5.9 FL (6.5-10.1) 5.5 FL (6.5-10.1) Neutrophils (%) (Auto) % (45.0-75.0) % (45.0-75.0) Lymphocytes (%) (Auto) % (20.0-45.0) % (20.0-45.0) Monocytes (%) (Auto) % (1.0-10.0) % (1.0-10.0) Eosinophils (%) (Auto) % (0.0-3.0) % (0.0-3.0) Basophils (%) (Auto) % (0.0-2.0) % (0.0-2.0) Differential Total Cells Counted 100 Neutrophils % (Manual) 91 % (45-75) Lymphocytes % (Manual) 5 % (20-45) Monocytes % (Manual) 4 % (1-10) Eosinophils % (Manual) 0 % (0-3) Basophils % (Manual) 0 % (0-2) Band Neutrophils 0 % (0-8) Platelet Estimate Decreased Platelet Morphology Normal Hypochromasia 3+ Anisocytosis 1+ Spherocytes 2+ Sodium Level 149 MMOL/L (136-145) 148 MMOL/L (136-145) Potassium Level 3.6 MMOL/L (3.5-5.1) 3.3 MMOL/L (3.5-5.1) Chloride Level 112 MMOL/L (98-107) 111 MMOL/L (98-107) Carbon Dioxide Level 33 MMOL/L (21-32) 31 MMOL/L (21-32) Anion Gap 5 mmol/L (5-15) 6 mmol/L (5-15) Blood Urea Nitrogen 79 mg/dL (7-18) 83 mg/dL (7-18) Creatinine 3.9 MG/DL (0.55-1.30) 4.0 MG/DL (0.55-1.30) Estimat Glomerular Filtration Rate mL/min (>60) mL/min (>60) Glucose Level 154 MG/DL (74-106) 148 MG/DL (74-106) Uric Acid 5.1 MG/DL (2.6-7.2) 5.0 MG/DL (2.6-7.2) Calcium Level 7.0 MG/DL (8.5-10.1) 7.1 MG/DL (8.5-10.1) Phosphorus Level 3.7 MG/DL (2.5-4.9) 3.5 MG/DL (2.5-4.9) Magnesium Level 2.1 MG/DL (1.8-2.4) 2.1 MG/DL (1.8-2.4) Total Bilirubin 0.3 MG/DL (0.2-1.0) 0.5 MG/DL (0.2-1.0) Aspartate Amino Transf (AST/SGOT) 38 U/L (15-37) 38 U/L (15-37) Alanine Aminotransferase (ALT/SGPT) 37 U/L (12-78) 34 U/L (12-78) Alkaline Phosphatase 67 U/L (46-116) 88 U/L (46-116) C-Reactive Protein, Quantitative 1.4 mg/dL (0.00-0.90) 1.8 mg/dL (0.00-0.90) Pro-B-Type Natriuretic Peptide 4884 pg/mL (0-125) Total Protein 4.1 G/DL (6.4-8.2) 4.7 G/DL (6.4-8.2) Albumin 1.4 G/DL (3.4-5.0) 1.6 G/DL (3.4-5.0) Globulin 2.7 g/dL 3.1 g/dL Albumin/Globulin Ratio 0.5 (1.0-2.7) 0.5 (1.0-2.7) Random Vancomycin Level 7.7 ug/mL 7.2 ug/mL Height (Feet): 5 Height (Inches): 7.00 Weight (Pounds): 180 Objective PE: Vitals: reviewed General Appearance: NAD HEENT: normocephalic, atraumatic Neck: non-tender, normal alignment Respiratory/Chest: VENT++ ++ trach Cardiovascular/Chest: normal peripheral pulses, normal rate Abdomen: normal bowel sounds, soft, nontender ++ peg Extremities: normal range of motion ++ right arm swelling Suleman Addison MD Jun 20, 2019 06:06
[2019-06-20 08:00] VITALS: BP 147/65
[2019-06-20] MEDS: Amiodarone 200mg tab GT SCH (08:21)
[2019-06-20] MEDS: Vitamin D 1000 IU Tab GT SCH (08:22)
--- NOTE | 2019-06-20 10:15 | Surgery Progress Note ---
Surgery Progress Note Subjective Procedure Performed tracheostomy Additional Comments no acute events labs reviewed exam stable on support Objective Last 24 Hour Vital Signs Date Time Temp Pulse Resp B/P (MAP) Pulse Ox O2 Delivery O2 Flow Rate FiO2 06/20/19 08:00 98.0 76 18 147/65 (92) 99 06/20/19 08:00 35 06/20/19 05:00 130/70 06/20/19 04:46 88 17 35 06/20/19 04:00 98.1 66 16 130/70 (90) 98 06/20/19 04:00 35 06/20/19 04:00 Mechanical Ventilator 06/20/19 03:46 72 06/20/19 02:49 83 16 35 06/20/19 00:39 81 20 35 06/20/19 00:00 Mechanical Ventilator 06/20/19 00:00 98.9 82 21 124/67 (86) 97 06/20/19 00:00 35 06/19/19 23:26 74 06/19/19 23:08 130/67 06/19/19 22:37 84 20 35 06/19/19 20:44 92 23 35 06/19/19 20:00 35 06/19/19 20:00 Mechanical Ventilator 06/19/19 20:00 98.4 87 22 128/68 (88) 96 06/19/19 19:28 84 06/19/19 18:55 89 24 35 06/19/19 17:48 144/78 06/19/19 17:22 95 22 35 06/19/19 16:00 98.4 96 18 144/78 (100) 95 06/19/19 16:00 35 06/19/19 16:00 92 06/19/19 16:00 Mechanical Ventilator 06/19/19 15:45 99 22 35 06/19/19 13:21 85 29 35 06/19/19 12:22 134/79 06/19/19 12:00 35 06/19/19 12:00 84 06/19/19 12:00 98.1 84 16 134/79 (97) 98 06/19/19 12:00 Mechanical Ventilator 06/19/19 10:57 90 17 35 I&O Intake and Output 06/19/19 06/20/19 18:59 06:59 Intake Total 630 ml 490 ml Output Total 460 ml 550 ml Balance 170 ml -60 ml Free Water 150 ml 50 ml Tube Feeding 480 ml 440 ml Output Urine Total 400 ml 400 ml Stool Total 60 ml 150 ml Dressing: dry Wound: clean Cardiovascular: RSR Respiratory: clear, decreased breath sounds, other Abdomen: soft, present bowel sounds Extremities: no cyanosis Laboratory Tests Test 06/20/19 06:30 Hepatitis A IgM Antibody Pending Hepatitis B Surface Antigen Pending Hepatitis B Core IgM Antibody Pending Hepatitis C Antibody Pending Plan Problems: (1) Cellulitis of upper extremity Assessment & Plan: 84M with RUE cellulitis, edema, erythema. no drainage. has RUE picc line recommend removal of picc. removed at bedside by myself on 05/18. pressure held, hemostasis noted, dressings applied. cath tip sent for cultures DVT duplex studies with acute thrombus IV Abx as per ID UA pending Cx results keep RUE elevated on pillows okay for diet AM labs anticoagulation off load pressure for dti noted cellulitis and edema improved deteriorated intubated on vent support likely respiratory insufficiency labs ordered wean vent okay for tube feeds via ng - cont as tolerated wean vent am labs HD as per renal will follow with recs thank you (2) Cellulitis Assessment & Plan: Pt presented on admission with reabsorbing blister lateral R heel. Base of injury indurated with delineated margins(L)4cm x (W)3cm.Non- blanching erythema Sacrum ,R and L buttocks(L)8.5cm x (W)9cm, with a partial thickness pressure injury noted to L buttocks. Base of wound is moist and viable (L)2.3cm x (W)3cm. Area around wound tender when minimally palpated. Pt noted to be wearing splint L foot. Per pt he fractured foot a few weeks ago. Splint removed to assess skin integrity. L heel and malleoli are pink and blanchable.Cavilon Skin Barrier applied to L heel and malleoli and each area covered with Optifoam drsg. Splint reapplied. No other skin concerns noted. unchanged Partial Thickness pressure injury L buttocks resolved . Non-blanching erythema without induration noted to Sacrum,R and L buttocks. (L)8cm x (W)9cm. Scrotum is grossly enlarged and is erythematous and macerated. Penile shaft is grossly swollen .Pt noted to have a partially opened blood blister with 25% biofilm at base of shaft of penis.(L)4.5cm x (W)2.5cm. Bilat groin, medial /posterior aspects of both upper thighs are erythematous and denuded. R lower ext edematous. R heel blister reabsorbed. Non--blanching erythema without induration noted to R heel. Splint removed from L foot. Optifoam drsgs removed from malleoli and heel. Pt noted to have developed several DTPI's despite having Optifoam drsgs. DTPI noted to L achilles . Base of wound is purple and fluctuant (L)0.6cm x (W) 2.7cm.DTPI noted to medial L malleolus(L)0.2cm x (W)0.3cm.Base of wound is purple with marginal erythema. DTPI noted to dorsal L foot. Base of wound is purple with marginal erythema along borders (L)0.9cm x (W)0.5cm.L heel is boggy with non-blanching erythema. Cavilon Skin Barrier applied to affected areas on L foot . Dorsal L foot ,Achilles .R and L malleoli and L heel each covered with Optifoam drsg. Non-blanching erythema without induration noted to lateral L tibia. At plantar aspect of L hallux small dry eschar noted. No erythema or fluctuance periwound. (L)0.5cm x (W)0.4cm. IN addition to Optifoam drsgs placed over each bony prominence of L foot ABD pads placed over dorsal and plantar L foot , Abd pads aligned along L tibia. Splint realigned to L foot Wrapped loosely with Kerlix then wrapped loosely with [place] wrap. L foot floated off mattress with pillow. Tx.Plan: Apply Cavilon to Dorsal L foot. L achilles .Medial/Lateral Malleoli L Foot and L heel. Cover each site with Optifoam drsg. Change every 7 days and prn. Apply Cavilon Plantar L foot. Cover with Optifoam drsg. Change every 7 days and prn. Apply Moisture Barrier Paste to sacrum. Cover with Optifoam drsg. Changee very 7 days and prn. Apply Cavilon Skin Barrier to Both heels. Cover each heel with Optifoam drsg. Change every 7 days and prn. Cleanse wound Shaft of penis with saline. Apply Moisture Barrier Paste Daily and prn. Apply Moisture Barrier Paste to Bilat groin, Scrotum, Medial/Posterior aspects of both upper thighs with each perineal care. Reposition at least every 2hours or as tolerated. Off-load heels with pillows. APM/LA L Mattress overlay. (3) SOB (shortness of breath) Assessment & Plan: Unfortunately patient has been in the intensive care unit on ventilatory support unable to be weaned from vent. Will likely require prolonged ventilatory support. Respiratory insufficiency not improving. Patient is full code as per identifiable documentation in patient's chart and medical record. No family or next kin available. Given patient's wishes current condition and course of a care tracheostomy is indicated recommended. Tracheostomy would be medically necessary as a next step in patient's care plan. s/p trach wean vent (4) Deep tissue injury Assessment & Plan: appreciate vascular input Bennett Logan Jun 20, 2019 10:15
--- NOTE | 2019-06-20 10:29 | Nephrology Progress Note ---
Assessment/Plan Problem List: (1) Renal failure (ARF), acute on chronic Assessment: Cr rising (2) Cellulitis of upper extremity (3) A-fib (4) Pneumonia (5) UTI (urinary tract infection) (6) Anemia Assessment: worsened (7) Hypothyroidism Assessment - KIMO on CKD - Urinary tract infection. - Anemia- - Dehydration. - Cellulitis of Upper extremity - HTN Plan stat Chem panel today- taper steroids as possible add hydralazine dialysis last 06/14 - will observe renal parameters Trach 06/16 ! DC Midodrine DC IV IV Calcium and PO Vit D ad needed Transfuse one unit PRBcs in ICU- intubated BP meds and Mind altering meds discontinued On midodrine check vanco levels - hold vanco doses previously: Per cardiology Anemia kumari- Avoid Nephrotoxics Per ID Allow CHANDA inhibitor to continue as long as renal function does not worsen. PICC line has been removed. CXR: Increased right pleural effusion and similar left pleural effusion. Increased interstitial and hazy opacities throughout the lungs. Subjective ROS Limited/Unobtainable: Yes Objective Objective Last 24 Hour Vital Signs Date Time Temp Pulse Resp B/P (MAP) Pulse Ox O2 Delivery O2 Flow Rate FiO2 06/20/19 08:00 Mechanical Ventilator 35.0 06/20/19 08:00 98.0 76 18 147/65 (92) 99 06/20/19 08:00 35 06/20/19 07:20 84 20 35 06/20/19 05:00 130/70 06/20/19 04:46 88 17 35 06/20/19 04:00 98.1 66 16 130/70 (90) 98 06/20/19 04:00 35 06/20/19 04:00 Mechanical Ventilator 06/20/19 03:46 72 06/20/19 02:49 83 16 35 06/20/19 00:39 81 20 35 06/20/19 00:00 Mechanical Ventilator 06/20/19 00:00 98.9 82 21 124/67 (86) 97 06/20/19 00:00 35 06/19/19 23:26 74 06/19/19 23:08 130/67 06/19/19 22:37 84 20 35 06/19/19 20:44 92 23 35 06/19/19 20:00 35 06/19/19 20:00 Mechanical Ventilator 06/19/19 20:00 98.4 87 22 128/68 (88) 96 06/19/19 19:28 84 06/19/19 18:55 89 24 35 06/19/19 17:48 144/78 06/19/19 17:22 95 22 35 06/19/19 16:00 98.4 96 18 144/78 (100) 95 06/19/19 16:00 35 06/19/19 16:00 92 06/19/19 16:00 Mechanical Ventilator 06/19/19 15:45 99 22 35 06/19/19 13:21 85 29 35 06/19/19 12:22 134/79 06/19/19 12:00 35 06/19/19 12:00 84 06/19/19 12:00 98.1 84 16 134/79 (97) 98 06/19/19 12:00 Mechanical Ventilator 06/19/19 10:57 90 17 35 Intake and Output 06/19/19 06/20/19 19:00 07:00 Intake Total 630 ml 450 ml Output Total 460 ml 550 ml Balance 170 ml -100 ml Free Water 150 ml 50 ml Tube Feeding 480 ml 400 ml Output Urine Total 400 ml 400 ml Stool Total 60 ml 150 ml Laboratory Tests 06/20/19 06:30: Hepatitis A IgM Antibody [Pending], Hepatitis B Surface Antigen [Pending], Hepatitis B Core IgM Antibody [Pending], Hepatitis C Antibody [Pending] Height (Feet): 5 Height (Inches): 7.00 Weight (Pounds): 179 General Appearance: no apparent distress EENT: other - Vented Cardiovascular: normal rate Respiratory/Chest: decreased breath sounds Abdomen: soft Objective no change Reinier Mera MD Jun 20, 2019 10:29
[2019-06-20 12:00] VITALS: BP 150/75
--- NOTE | 2019-06-20 12:20 | GI Progress Note ---
Assessment/Plan Problems: (1) Anemia ICD Codes: D64.9 - Anemia, unspecified SNOMED: 051455678 (2) Dysphagia ICD Codes: R13.10 - Dysphagia, unspecified SNOMED: 70786617, 220780069 Status: stable Status Narrative Discussed with Dr. Lino. Assessment/Plan s/p PEG 06/13/19 GTF GT site care prn transfusions ppi fu pulm fu labs abx per ID on HD The patient was seen and examined at bedside and all new and available data was reviewed in the patients chart. I agree with the above findings, impression and plan. (Patient seen earlier today. Signature stamp does not reflect patient encounter time.). - Valentino Lino MD Subjective Subjective limited Objective Last 24 Hour Vital Signs Date Time Temp Pulse Resp B/P (MAP) Pulse Ox O2 Delivery O2 Flow Rate FiO2 06/20/19 11:30 88 16 35 06/20/19 09:24 83 16 35 06/20/19 08:00 Mechanical Ventilator 35.0 06/20/19 08:00 98.0 76 18 147/65 (92) 99 06/20/19 08:00 35 06/20/19 08:00 76 06/20/19 07:20 84 20 35 06/20/19 05:00 130/70 06/20/19 04:46 88 17 35 06/20/19 04:00 98.1 66 16 130/70 (90) 98 06/20/19 04:00 35 06/20/19 04:00 Mechanical Ventilator 06/20/19 03:46 72 06/20/19 02:49 83 16 35 06/20/19 00:39 81 20 35 06/20/19 00:00 Mechanical Ventilator 06/20/19 00:00 98.9 82 21 124/67 (86) 97 06/20/19 00:00 35 06/19/19 23:26 74 06/19/19 23:08 130/67 06/19/19 22:37 84 20 35 06/19/19 20:44 92 23 35 06/19/19 20:00 35 06/19/19 20:00 Mechanical Ventilator 06/19/19 20:00 98.4 87 22 128/68 (88) 96 06/19/19 19:28 84 06/19/19 18:55 89 24 35 06/19/19 17:48 144/78 06/19/19 17:22 95 22 35 06/19/19 16:00 98.4 96 18 144/78 (100) 95 06/19/19 16:00 35 06/19/19 16:00 92 06/19/19 16:00 Mechanical Ventilator 06/19/19 15:45 99 22 35 06/19/19 13:21 85 29 35 06/19/19 12:22 134/79 Intake and Output 06/19/19 06/20/19 19:00 07:00 Intake Total 630 ml 450 ml Output Total 460 ml 550 ml Balance 170 ml -100 ml Free Water 150 ml 50 ml Tube Feeding 480 ml 400 ml Output Urine Total 400 ml 400 ml Stool Total 60 ml 150 ml Laboratory Tests Test 06/20/19 06:30 Hepatitis A IgM Antibody Pending Hepatitis B Surface Antigen Pending Hepatitis B Core IgM Antibody Pending Hepatitis C Antibody Pending Height (Feet): 5 Height (Inches): 7.00 Weight (Pounds): 179 General Appearance: WD/WN, no apparent distress, alert Cardiovascular: normal rate Respiratory/Chest: normal breath sounds, no respiratory distress Abdominal Exam: normal bowel sounds, non tender, soft, GT site Extremities: non-tender Thais Aranda [employer] Jun 20, 2019 12:20
[2019-06-20] MEDS: DAPTOmycin 500 MG in NS 55 ML IV SCH (13:35)
[2019-06-20 15:12] LABS: ANION GAP 10 mmol/L (5-15); BLOOD UREA NITROGEN 87 mg/dL (7-18); CALCIUM 7.1 MG/DL (8.5-10.1); CARBON DIOXIDE 28 MMOL/L (21-32); CHLORIDE 112 MMOL/L (98-107); CREATININE 3.9 MG/DL (0.55-1.30); POTASSIUM 3.7 MMOL/L (3.5-5.1); SODIUM 150 MMOL/L (136-145)
[2019-06-20 15:17] LABS: ALANINE AMINOTRANSFERASE 44 U/L (12-78); ALBUMIN 1.5 G/DL (3.4-5.0); ALBUMIN/GLOBULIN RATIO 0.5 (1.0-2.7); ALKALINE PHOSPHATASE 90 U/L (46-116); ASPARTATE AMINO TRANSFERASE 49 U/L (15-37); BILIRUBIN,TOTAL 0.3 MG/DL (0.2-1.0); PHOSPHORUS 3.3 MG/DL (2.5-4.9)
[2019-06-20 16:00] VITALS: BP 142/76
--- NOTE | 2019-06-20 18:07 | Infectious Diseases Prog Note ---
Assessment/Plan Assessment/Plan 84 yo male with PMHx of HTN who was sent to the ED on 05/18/19 from his [place] [facility] for possible picc line infection. Swelling around PICC line Minimal to no erythema and no purulent drainage Not likely to be infected Blood Cx 05/18/19 - NGTD PICC Tip Cx 05/18/19 - NGTD PICC line removed 05/18/19 Leukocytosis, mild recurrent (on steroids)- resolved No fever OM - Let foot On Vancomycin at nursing End date early May PNA Acute respiratory failure s/p intubation 05/27, s/p trach 06/16/1906/10 CXR: Bilateral upper lobe interstitial opacities and volume loss are unchanged. Diffuse more acute appearing parenchymal disease throughout the left mid and lower lung are unchanged. CXR - Some LLL Atelectasis vs PNA, Nodules CT 05/20/19 - Bilateral upper lobe infiltrates worse on the right. Consider pneumonia. Bilateral pleural effusions moderate in size Sp Cx Marily HTN PLAN - Continue Daptomycin for OM until 06/23/19 weekly CPK -06/10 SP Zosyn #15 - 05/28/19 SP Vancomycin per pharmacy - Stopped for increasing Cr - 05/27/19 SP Levofloxacin #5 - Monitor CBC and Temps -trach/ICU care -aspiration precautions -wound care per hospital protocol Thank you for this consult. [facility] will continue to follow the patient with you during this hospitalization. Subjective Allergies: Coded Allergies: No Known Allergies (Unverified , 05/18/19) Subjective afebrile no leukocytosis Objective Vital Signs Last 24 Hour Vital Signs Date Time Temp Pulse Resp B/P (MAP) Pulse Ox O2 Delivery O2 Flow Rate FiO2 06/20/19 17:28 87 16 35 06/20/19 17:10 142/76 06/20/19 16:00 Mechanical Ventilator 35.0 06/20/19 16:00 78 06/20/19 16:00 35 06/20/19 16:00 98.2 83 16 142/76 (98) 99 06/20/19 15:26 83 16 35 06/20/19 13:35 150/75 06/20/19 13:29 86 18 35 06/20/19 12:00 Mechanical Ventilator 35.0 06/20/19 12:00 35 06/20/19 12:00 98.2 76 16 150/75 (100) 99 06/20/19 11:30 88 16 35 06/20/19 11:27 73 06/20/19 09:24 83 16 35 06/20/19 08:00 Mechanical Ventilator 35.0 06/20/19 08:00 98.0 76 18 147/65 (92) 99 06/20/19 08:00 35 06/20/19 08:00 76 06/20/19 07:20 84 20 35 06/20/19 05:00 130/70 06/20/19 04:46 88 17 35 06/20/19 04:00 98.1 66 16 130/70 (90) 98 06/20/19 04:00 35 06/20/19 04:00 Mechanical Ventilator 06/20/19 03:46 72 06/20/19 02:49 83 16 35 06/20/19 00:39 81 20 35 06/20/19 00:00 Mechanical Ventilator 06/20/19 00:00 98.9 82 21 124/67 (86) 97 06/20/19 00:00 35 06/19/19 23:26 74 06/19/19 23:08 130/67 06/19/19 22:37 84 20 35 06/19/19 20:44 92 23 35 06/19/19 20:00 35 06/19/19 20:00 Mechanical Ventilator 06/19/19 20:00 98.4 87 22 128/68 (88) 96 06/19/19 19:28 84 06/19/19 18:55 89 24 35 Height (Feet): 5 Height (Inches): 7.00 Weight (Pounds): 179 Objective General Appearance: no apparent distress, lethargic Cardiovascular: normal rate Respiratory/Chest: decreased breath sounds Abdomen: distended Laboratory Tests Test 06/20/19 06:30 06/20/19 14:15 Hepatitis A IgM Antibody Pending Hepatitis B Surface Antigen Pending Hepatitis B Core IgM Antibody Pending Hepatitis C Antibody Pending Sodium Level 150 MMOL/L (136-145) H Potassium Level 3.7 MMOL/L (3.5-5.1) Chloride Level 112 MMOL/L (98-107) H Carbon Dioxide Level 28 MMOL/L (21-32) Anion Gap 10 mmol/L (5-15) Blood Urea Nitrogen 87 mg/dL (7-18) H Creatinine 3.9 MG/DL (0.55-1.30) H Estimat Glomerular Filtration Rate mL/min (>60) Glucose Level 185 MG/DL (74-106) H Calcium Level 7.1 MG/DL (8.5-10.1) L Phosphorus Level 3.3 MG/DL (2.5-4.9) Magnesium Level 2.1 MG/DL (1.8-2.4) Total Bilirubin 0.3 MG/DL (0.2-1.0) Aspartate Amino Transf (AST/SGOT) 49 U/L (15-37) H Alanine Aminotransferase (ALT/SGPT) 44 U/L (12-78) Alkaline Phosphatase 90 U/L (46-116) Total Protein 4.4 G/DL (6.4-8.2) L Albumin 1.5 G/DL (3.4-5.0) L Globulin 2.9 g/dL Albumin/Globulin Ratio 0.5 (1.0-2.7) L Current Medications Medications (Trade) Dose Ordered Sig/Phillip Route PRN Reason Start Time Stop Time Status Last Admin Dose Admin Acetaminophen (Tylenol) 500 mg Q4H PRN GT Mild Pain/Temp > 100.5 06/17/19 19:43 07/17/19 19:42 Amiodarone HCl (Cordarone) 200 mg DAILY GT 06/18/19 09:00 07/07/19 16:14 06/20/19 08:21 Chlorhexidine Gluconate (Reina-Hex 2%) 1 applic DAILY@2000 TOPIC 06/17/19 20:00 06/26/19 19:59 06/19/19 20:11 Clonidine HCl (Catapres Tab) 0.1 mg Q4H PRN GT For High Blood Pressure 06/17/19 19:44 07/17/19 19:43 Daptomycin 500 mg/ Sodium Chloride 55 ml @ 100 mls/hr Q48H IV 06/18/19 13:00 06/23/19 23:59 06/20/19 13:35 Hydralazine HCl (Apresoline) 10 mg Q6HR GT 06/18/19 12:00 07/18/19 11:59 06/20/19 17:10 Lansoprazole (Prevacid) 30 mg BID GT 06/18/19 09:00 07/06/19 17:59 06/20/19 17:10 Metoprolol Tartrate (Lopressor) 5 mg Q5MIN X 3 IVP 06/17/19 19:45 07/07/19 16:14 Prednisone (predniSONE) 20 mg DAILY GT 06/21/19 09:00 07/21/19 08:59 Vitamin D (Vitamin D) 5,000 intlu DAILY GT 06/18/19 09:00 07/07/19 12:59 06/20/19 08:22 Latha Lowe M.D. Jun 20, 2019 18:07
--- NOTE | 2019-06-20 18:11 | Critical Care Progress Note ---
Assessment/Plan Assessment/Plan IMPRESSION AND PLAN: 1. Pneumonia. h/o 2. Cellulitis. 3. History of COPD. 4. Hypertension. 5. Afib with RVR; rate controlled 6. Respiratory failure, acute 7. Hypoxemia, improved 8. Chronic renal failure 9. severe protein sabina malnutrition 10. 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 - Subjective Interval Events: care noted supportive care reviewed ROS Limited/Unobtainable: Yes I&O: Intake and Output 06/19/19 06/20/19 19:00 07:00 Intake Total 630 ml 450 ml Output Total 460 ml 550 ml Balance 170 ml -100 ml Free Water 150 ml 50 ml Tube Feeding 480 ml 400 ml Output Urine Total 400 ml 400 ml Stool Total 60 ml 150 ml Critical Care - Objective ET-Tube: 7.5 ET Position: 25 Last 24 Hour Vital Signs Date Time Temp Pulse Resp B/P (MAP) Pulse Ox O2 Delivery O2 Flow Rate FiO2 06/20/19 17:28 87 16 35 06/20/19 17:10 142/76 06/20/19 16:00 Mechanical Ventilator 35.0 06/20/19 16:00 78 06/20/19 16:00 35 06/20/19 16:00 98.2 83 16 142/76 (98) 99 06/20/19 15:26 83 16 35 06/20/19 13:35 150/75 06/20/19 13:29 86 18 35 06/20/19 12:00 Mechanical Ventilator 35.0 06/20/19 12:00 35 06/20/19 12:00 98.2 76 16 150/75 (100) 99 06/20/19 11:30 88 16 35 06/20/19 11:27 73 06/20/19 09:24 83 16 35 06/20/19 08:00 Mechanical Ventilator 35.0 06/20/19 08:00 98.0 76 18 147/65 (92) 99 06/20/19 08:00 35 06/20/19 08:00 76 06/20/19 07:20 84 20 35 06/20/19 05:00 130/70 06/20/19 04:46 88 17 35 06/20/19 04:00 98.1 66 16 130/70 (90) 98 06/20/19 04:00 35 06/20/19 04:00 Mechanical Ventilator 06/20/19 03:46 72 06/20/19 02:49 83 16 35 06/20/19 00:39 81 20 35 06/20/19 00:00 Mechanical Ventilator 06/20/19 00:00 98.9 82 21 124/67 (86) 97 06/20/19 00:00 35 06/19/19 23:26 74 06/19/19 23:08 130/67 06/19/19 22:37 84 20 35 06/19/19 20:44 92 23 35 06/19/19 20:00 35 06/19/19 20:00 Mechanical Ventilator 06/19/19 20:00 98.4 87 22 128/68 (88) 96 06/19/19 19:28 84 06/19/19 18:55 89 24 35 Labs: Laboratory Tests Test 06/20/19 06:30 06/20/19 14:15 Hepatitis A IgM Antibody Pending Hepatitis B Surface Antigen Pending Hepatitis B Core IgM Antibody Pending Hepatitis C Antibody Pending Sodium Level 150 MMOL/L (136-145) H Potassium Level 3.7 MMOL/L (3.5-5.1) Chloride Level 112 MMOL/L (98-107) H Carbon Dioxide Level 28 MMOL/L (21-32) Anion Gap 10 mmol/L (5-15) Blood Urea Nitrogen 87 mg/dL (7-18) H Creatinine 3.9 MG/DL (0.55-1.30) H Estimat Glomerular Filtration Rate mL/min (>60) Glucose Level 185 MG/DL (74-106) H Calcium Level 7.1 MG/DL (8.5-10.1) L Phosphorus Level 3.3 MG/DL (2.5-4.9) Magnesium Level 2.1 MG/DL (1.8-2.4) Total Bilirubin 0.3 MG/DL (0.2-1.0) Aspartate Amino Transf (AST/SGOT) 49 U/L (15-37) H Alanine Aminotransferase (ALT/SGPT) 44 U/L (12-78) Alkaline Phosphatase 90 U/L (46-116) Total Protein 4.4 G/DL (6.4-8.2) L Albumin 1.5 G/DL (3.4-5.0) L Globulin 2.9 g/dL Albumin/Globulin Ratio 0.5 (1.0-2.7) L Objective: WDWN NAD on vent reduced breath sounds bilaterally with occ rhonchi [id number] without MRG NABS nontender no HSM; feeding tube in place no CC mild edema overall without change nonfocal reviewed and edited Accucheck: 130 Korey Mtz MD Jun 20, 2019 18:11
[2019-06-20 20:00] VITALS: BP 133/75
[2019-06-20] MEDS: Dyna-Hex 2% Top Sol 2oz TOPIC SCH (20:06)
--- NOTE | 2019-06-20 20:44 | General Progress Note ---
Assessment/Plan Problem List: (1) SOB (shortness of breath) ICD Codes: R06.02 - Shortness of breath SNOMED: 864333319 (2) Cellulitis ICD Codes: L03.90 - Cellulitis, unspecified SNOMED: 603172264 (3) Cellulitis of upper extremity ICD Codes: L03.119 - Cellulitis of unspecified part of limb SNOMED: 981231664 Qualifiers: Qualified Codes: L03.113 - Cellulitis of right upper limb (4) Renal insufficiency ICD Codes: N28.9 - Disorder of kidney and ureter, unspecified SNOMED: 658289883, 124771120 (5) Renal failure (ARF), acute on chronic ICD Codes: N17.9 - Acute kidney failure, unspecified; N18.9 - Chronic kidney disease, unspecified SNOMED: 001713142 (6) Anemia ICD Codes: D64.9 - Anemia, unspecified SNOMED: 570001579 (7) Hypothyroidism ICD Codes: E03.9 - Hypothyroidism, unspecified SNOMED: 94661772 (8) UTI (urinary tract infection) ICD Codes: N39.0 - Urinary tract infection, site not specified SNOMED: 35022964 Status: stable, progressing Assessment/Plan: reviewed chart and labs trach chf pna sepsis edema pna poor prognsis Subjective ROS Limited/Unobtainable: Yes Allergies: Coded Allergies: No Known Allergies (Unverified , 05/18/19) Objective Last 24 Hour Vital Signs Date Time Temp Pulse Resp B/P (MAP) Pulse Ox O2 Delivery O2 Flow Rate FiO2 06/20/19 18:50 71 16 35 06/20/19 17:28 87 16 35 06/20/19 17:10 142/76 06/20/19 16:00 Mechanical Ventilator 35.0 06/20/19 16:00 78 06/20/19 16:00 35 06/20/19 16:00 98.2 83 16 142/76 (98) 99 06/20/19 15:26 83 16 35 06/20/19 13:35 150/75 06/20/19 13:29 86 18 35 06/20/19 12:00 Mechanical Ventilator 35.0 06/20/19 12:00 35 06/20/19 12:00 98.2 76 16 150/75 (100) 99 06/20/19 11:30 88 16 35 1/24/20 11:27 73 06/20/19 09:24 83 16 35 06/20/19 08:00 Mechanical Ventilator 35.0 06/20/19 08:00 98.0 76 18 147/65 (92) 99 06/20/19 08:00 35 06/20/19 08:00 76 06/20/19 07:20 84 20 35 06/20/19 05:00 130/70 06/20/19 04:46 88 17 35 06/20/19 04:00 98.1 66 16 130/70 (90) 98 06/20/19 04:00 35 06/20/19 04:00 Mechanical Ventilator 06/20/19 03:46 72 06/20/19 02:49 83 16 35 06/20/19 00:39 81 20 35 06/20/19 00:00 Mechanical Ventilator 06/20/19 00:00 98.9 82 21 124/67 (86) 97 06/20/19 00:00 35 06/19/19 23:26 74 06/19/19 23:08 130/67 06/19/19 22:37 84 20 35 06/19/19 20:44 92 23 35 Intake and Output 06/19/19 06/20/19 19:00 07:00 Intake Total 630 ml 450 ml Output Total 460 ml 550 ml Balance 170 ml -100 ml Free Water 150 ml 50 ml Tube Feeding 480 ml 400 ml Output Urine Total 400 ml 400 ml Stool Total 60 ml 150 ml Laboratory Tests 06/20/19 06:30: Hepatitis A IgM Antibody [Pending], Hepatitis B Surface Antigen [Pending], Hepatitis B Core IgM Antibody [Pending], Hepatitis C Antibody [Pending] 06/20/19 14:15: Sodium Level 150H, Potassium Level 3.7, Chloride Level 112H, Carbon Dioxide Level 28, Anion Gap 10, Blood Urea Nitrogen 87H, Creatinine 3.9H, Estimat Glomerular Filtration Rate , Glucose Level 185H, Calcium Level 7.1L, Phosphorus Level 3.3, Magnesium Level 2.1, Total Bilirubin 0.3, Aspartate Amino Transf (AST /SGOT) 49H, Alanine Aminotransferase (ALT/SGPT) 44, Alkaline Phosphatase 90, Total Protein 4.4L, Albumin 1.5L, Globulin 2.9, Albumin/Globulin Ratio 0.5L Height (Feet): 5 Height (Inches): 7.00 Weight (Pounds): 179 Cardiovascular: regular rhythm Respiratory/Chest: rhonchi - bilaterally Joslyn Wiggins MD Jun 20, 2019 20:44
[2019-06-21] VITALS: BP 138/72
[2019-06-21 04:00] VITALS: BP 144/72
[2019-06-21] MEDS: HydrALAZINE 10mg Tab GT SCH ×3 (05:48→18:02)
--- NOTE | 2019-06-21 07:47 | General Progress Note ---
Assessment/Plan Problem List: (1) Dysphagia ICD Codes: R13.10 - Dysphagia, unspecified SNOMED: 93047571, 431644612 (2) Anemia ICD Codes: D64.9 - Anemia, unspecified SNOMED: 803415588 (3) Hypothyroidism ICD Codes: E03.9 - Hypothyroidism, unspecified SNOMED: 48263252 (4) Thrombus ICD Codes: I82.90 - Acute embolism and thrombosis of unspecified vein SNOMED: 13452797, 50833624, 671842835, 441007610 (5) A-fib ICD Codes: I48.91 - Unspecified atrial fibrillation SNOMED: 40302355 Status: stable, progressing Assessment/Plan: Assessment/Plan Problems: (1) Anemia ICD Codes: D64.9 - Anemia, unspecified SNOMED: 024058500 (2) Dysphagia ICD Codes: R13.10 - Dysphagia, unspecified SNOMED: 49479485, 171400915 Status: stable s/p PEG 06/13/19 GTF GT site care prn transfusions ppi fu pulm fu labs abx per ID on H Subjective ROS Limited/Unobtainable: No Allergies: Coded Allergies: No Known Allergies (Unverified , 05/18/19) Subjective coded today Objective Last 24 Hour Vital Signs Date Time Temp Pulse Resp B/P (MAP) Pulse Ox O2 Delivery O2 Flow Rate FiO2 06/21/19 05:48 144/72 06/21/19 04:58 84 19 35 06/21/19 04:00 98.3 81 20 144/72 (96) 99 06/21/19 04:00 35 06/21/19 04:00 Mechanical Ventilator 35.0 06/21/19 04:00 74 06/21/19 02:59 74 18 35 06/21/19 00:52 76 19 35 06/21/19 00:00 98.6 76 19 138/72 (94) 99 06/21/19 00:00 35 06/21/19 00:00 Mechanical Ventilator 35.0 06/21/19 00:00 68 06/20/19 23:21 79 19 35 06/20/19 23:14 140/89 06/20/19 20:49 78 22 35 06/20/19 20:00 98.1 78 19 133/75 (94) 98 06/20/19 20:00 78 06/20/19 20:00 78 06/20/19 20:00 35 06/20/19 20:00 Mechanical Ventilator 35.0 06/20/19 18:50 71 16 35 06/20/19 17:28 87 16 35 06/20/19 17:10 142/76 06/20/19 16:00 Mechanical Ventilator 35.0 06/20/19 16:00 78 06/20/19 16:00 35 06/20/19 16:00 98.2 83 16 142/76 (98) 99 06/20/19 15:26 83 16 35 06/20/19 13:35 150/75 06/20/19 13:29 86 18 35 06/20/19 12:00 Mechanical Ventilator 35.0 06/20/19 12:00 35 06/20/19 12:00 98.2 76 16 150/75 (100) 99 06/20/19 11:30 88 16 35 06/20/19 11:27 73 06/20/19 09:24 83 16 35 06/20/19 08:00 Mechanical Ventilator 35.0 06/20/19 08:00 98.0 76 18 147/65 (92) 99 06/20/19 08:00 35 06/20/19 08:00 76 Intake and Output 06/20/19 06/21/19 19:00 07:00 Intake Total 620 ml 400 ml Output Total 900 ml Balance 620 ml -500 ml Free Water 80 ml 120 ml IV Total 100 ml Tube Feeding 440 ml 280 ml Output Urine Total 700 ml Stool Total 200 ml Laboratory Tests 06/20/19 14:15: Sodium Level 150H, Potassium Level 3.7, Chloride Level 112H, Carbon Dioxide Level 28, Anion Gap 10, Blood Urea Nitrogen 87H, Creatinine 3.9H, Estimat Glomerular Filtration Rate , Glucose Level 185H, Calcium Level 7.1L, Phosphorus Level 3.3, Magnesium Level 2.1, Total Bilirubin 0.3, Aspartate Amino Transf (AST /SGOT) 49H, Alanine Aminotransferase (ALT/SGPT) 44, Alkaline Phosphatase 90, Total Protein 4.4L, Albumin 1.5L, Globulin 2.9, Albumin/Globulin Ratio 0.5L Height (Feet): 5 Height (Inches): 7.00 Weight (Pounds): 175 General Appearance: alert EENT: normal ENT inspection Neck: normal alignment Cardiovascular: normal rate Respiratory/Chest: decreased breath sounds Abdomen: normal bowel sounds, non tender, soft Extremities: non-tender Valentino Lino MD Jun 21, 2019 07:47
[2019-06-21 08:00] VITALS: BP 152/75
[2019-06-21] MEDS: Amiodarone 200mg tab GT SCH (10:18)
[2019-06-21] MEDS: Vitamin D 1000 IU Tab GT SCH (10:20)
--- NOTE | 2019-06-21 10:42 | Infectious Diseases Prog Note ---
Assessment/Plan Assessment/Plan 84 yo male with PMHx of HTN who was sent to the ED on 05/18/19 from his group home for possible picc line infection. Swelling around PICC line Minimal to no erythema and no purulent drainage Not likely to be infected Blood Cx 05/18/19 - NGTD PICC Tip Cx 05/18/19 - NGTD PICC line removed 05/18/19 Leukocytosis, mild recurrent (on steroids)- resolved No fever OM - Let foot On Vancomycin at nursing End date early May PNA Acute respiratory failure s/p intubation 05/27, s/p trach 06/16/1906/10 CXR: Bilateral upper lobe interstitial opacities and volume loss are unchanged. Diffuse more acute appearing parenchymal disease throughout the left mid and lower lung are unchanged. CXR - Some LLL Atelectasis vs PNA, Nodules CT 05/20/19 - Bilateral upper lobe infiltrates worse on the right. Consider pneumonia. Bilateral pleural effusions moderate in size Sp Cx Marily HTN PLAN - Continue Daptomycin for OM until 06/23/19 Monitor weekly CPK - 06/10 SP Zosyn #15 - 05/28/19 SP Vancomycin per pharmacy - Stopped for increasing Cr - 05/27/19 SP Levofloxacin #5 - Monitor CBC and Temps -trach/ICU care -aspiration precautions -wound care per hospital protocol Thank you for this consult. [facility] will continue to follow the patient with you during this hospitalization. Subjective Allergies: Coded Allergies: No Known Allergies (Unverified , 05/18/19) Subjective On Vent 35% O2 Afebrile No Leukocytosis Objective Vital Signs Last 24 Hour Vital Signs Date Time Temp Pulse Resp B/P (MAP) Pulse Ox O2 Delivery O2 Flow Rate FiO2 06/21/19 09:29 83 18 35 06/21/19 08:00 97.7 83 20 152/75 (100) 100 06/21/19 07:00 79 19 35 06/21/19 05:48 144/72 06/21/19 04:58 84 19 35 06/21/19 04:00 98.3 81 20 144/72 (96) 99 06/21/19 04:00 35 06/21/19 04:00 Mechanical Ventilator 35.0 06/21/19 04:00 74 06/21/19 02:59 74 18 35 1/25/20 00:52 76 19 35 06/21/19 00:00 98.6 76 19 138/72 (94) 99 06/21/19 00:00 35 06/21/19 00:00 Mechanical Ventilator 35.0 06/21/19 00:00 68 06/20/19 23:21 79 19 35 06/20/19 23:14 140/89 06/20/19 20:49 78 22 35 06/20/19 20:00 98.1 78 19 133/75 (94) 98 06/20/19 20:00 78 06/20/19 20:00 78 06/20/19 20:00 35 06/20/19 20:00 Mechanical Ventilator 35.0 06/20/19 18:50 71 16 35 06/20/19 17:28 87 16 35 06/20/19 17:10 142/76 06/20/19 16:00 Mechanical Ventilator 35.0 06/20/19 16:00 78 06/20/19 16:00 35 06/20/19 16:00 98.2 83 16 142/76 (98) 99 06/20/19 15:26 83 16 35 06/20/19 13:35 150/75 06/20/19 13:29 86 18 35 06/20/19 12:00 Mechanical Ventilator 35.0 06/20/19 12:00 35 06/20/19 12:00 98.2 76 16 150/75 (100) 99 06/20/19 11:30 88 16 35 06/20/19 11:27 73 Height (Feet): 5 Height (Inches): 7.00 Weight (Pounds): 175 Objective Gen: Intubatd on vent 35% O2 HEENT: NCAT, MMM, EOMI LUNGS: Coarse B/L, No W CARDS: RRR, S1, S2 ABD: Soft, NT, ND Laboratory Tests Test 06/20/19 14:15 Sodium Level 150 MMOL/L (136-145) H Potassium Level 3.7 MMOL/L (3.5-5.1) Chloride Level 112 MMOL/L (98-107) H Carbon Dioxide Level 28 MMOL/L (21-32) Anion Gap 10 mmol/L (5-15) Blood Urea Nitrogen 87 mg/dL (7-18) H Creatinine 3.9 MG/DL (0.55-1.30) H Estimat Glomerular Filtration Rate mL/min (>60) Glucose Level 185 MG/DL (74-106) H Calcium Level 7.1 MG/DL (8.5-10.1) L Phosphorus Level 3.3 MG/DL (2.5-4.9) Magnesium Level 2.1 MG/DL (1.8-2.4) Total Bilirubin 0.3 MG/DL (0.2-1.0) Aspartate Amino Transf (AST/SGOT) 49 U/L (15-37) H Alanine Aminotransferase (ALT/SGPT) 44 U/L (12-78) Alkaline Phosphatase 90 U/L (46-116) Total Protein 4.4 G/DL (6.4-8.2) L Albumin 1.5 G/DL (3.4-5.0) L Globulin 2.9 g/dL Albumin/Globulin Ratio 0.5 (1.0-2.7) L Current Medications Medications (Trade) Dose Ordered Sig/Phillip Route PRN Reason Start Time Stop Time Status Last Admin Dose Admin Acetaminophen (Tylenol) 500 mg Q4H PRN GT Mild Pain/Temp > 100.5 06/17/19 19:43 07/17/19 19:42 Amiodarone HCl (Cordarone) 200 mg DAILY GT 06/18/19 09:00 07/07/19 16:14 06/21/19 10:18 Chlorhexidine Gluconate (Reina-Hex 2%) 1 applic DAILY@2000 TOPIC 06/17/19 20:00 06/26/19 19:59 06/20/19 20:06 Clonidine HCl (Catapres Tab) 0.1 mg Q4H PRN GT For High Blood Pressure 06/17/19 19:44 07/17/19 19:43 Daptomycin 500 mg/ Sodium Chloride 55 ml @ 100 mls/hr Q48H IV 06/18/19 13:00 06/23/19 23:59 06/20/19 13:35 Hydralazine HCl (Apresoline) 10 mg Q6HR GT 06/18/19 12:00 07/18/19 11:59 06/21/19 05:48 Lansoprazole (Prevacid) 30 mg BID GT 06/18/19 09:00 07/06/19 17:59 06/21/19 10:18 Metoprolol Tartrate (Lopressor) 5 mg Q5MIN X 3 IVP 06/17/19 19:45 07/07/19 16:14 Prednisone (predniSONE) 20 mg DAILY GT 06/21/19 09:00 07/21/19 08:59 06/21/19 09:00 Vitamin D (Vitamin D) 5,000 intlu DAILY GT 06/18/19 09:00 07/07/19 12:59 06/21/19 10:20 Jimbo Dodd MD Jun 21, 2019 10:42
--- NOTE | 2019-06-21 11:26 | Surgery Progress Note ---
Surgery Progress Note Subjective Procedure Performed tracheostomy Additional Comments no acute events exam stable Objective Last 24 Hour Vital Signs Date Time Temp Pulse Resp B/P (MAP) Pulse Ox O2 Delivery O2 Flow Rate FiO2 06/21/19 09:29 83 18 35 06/21/19 08:00 35 06/21/19 08:00 82 06/21/19 08:00 97.7 83 20 152/75 (100) 100 06/21/19 07:00 79 19 35 06/21/19 05:48 144/72 06/21/19 04:58 84 19 35 06/21/19 04:00 98.3 81 20 144/72 (96) 99 06/21/19 04:00 35 06/21/19 04:00 Mechanical Ventilator 35.0 06/21/19 04:00 74 06/21/19 02:59 74 18 35 06/21/19 00:52 76 19 35 06/21/19 00:00 98.6 76 19 138/72 (94) 99 06/21/19 00:00 35 06/21/19 00:00 Mechanical Ventilator 35.0 06/21/19 00:00 68 06/20/19 23:21 79 19 35 06/20/19 23:14 140/89 06/20/19 20:49 78 22 35 06/20/19 20:00 98.1 78 19 133/75 (94) 98 06/20/19 20:00 78 06/20/19 20:00 78 06/20/19 20:00 35 06/20/19 20:00 Mechanical Ventilator 35.0 06/20/19 18:50 71 16 35 06/20/19 17:28 87 16 35 06/20/19 17:10 142/76 06/20/19 16:00 Mechanical Ventilator 35.0 06/20/19 16:00 78 06/20/19 16:00 35 06/20/19 16:00 98.2 83 16 142/76 (98) 99 06/20/19 15:26 83 16 35 06/20/19 13:35 150/75 06/20/19 13:29 86 18 35 06/20/19 12:00 Mechanical Ventilator 35.0 06/20/19 12:00 35 06/20/19 12:00 98.2 76 16 150/75 (100) 99 06/20/19 11:30 88 16 35 06/20/19 11:27 73 I&O Intake and Output 06/20/19 06/21/19 19:00 07:00 Intake Total 620 ml 400 ml Output Total 900 ml Balance 620 ml -500 ml Free Water 80 ml 120 ml IV Total 100 ml Tube Feeding 440 ml 280 ml Output Urine Total 700 ml Stool Total 200 ml Dressing: other Wound: other Drains: other Cardiovascular: RSR Respiratory: decreased breath sounds Abdomen: soft, present bowel sounds Extremities: no cyanosis Laboratory Tests Test 06/20/19 14:15 Sodium Level 150 MMOL/L (136-145) H Potassium Level 3.7 MMOL/L (3.5-5.1) Chloride Level 112 MMOL/L (98-107) H Carbon Dioxide Level 28 MMOL/L (21-32) Anion Gap 10 mmol/L (5-15) Blood Urea Nitrogen 87 mg/dL (7-18) H Creatinine 3.9 MG/DL (0.55-1.30) H Estimat Glomerular Filtration Rate mL/min (>60) Glucose Level 185 MG/DL (74-106) H Calcium Level 7.1 MG/DL (8.5-10.1) L Phosphorus Level 3.3 MG/DL (2.5-4.9) Magnesium Level 2.1 MG/DL (1.8-2.4) Total Bilirubin 0.3 MG/DL (0.2-1.0) Aspartate Amino Transf (AST/SGOT) 49 U/L (15-37) H Alanine Aminotransferase (ALT/SGPT) 44 U/L (12-78) Alkaline Phosphatase 90 U/L (46-116) Total Protein 4.4 G/DL (6.4-8.2) L Albumin 1.5 G/DL (3.4-5.0) L Globulin 2.9 g/dL Albumin/Globulin Ratio 0.5 (1.0-2.7) L Plan Problems: (1) Cellulitis of upper extremity Assessment & Plan: 84M with RUE cellulitis, edema, erythema. no drainage. has RUE picc line recommend removal of picc. removed at bedside by myself on 05/18. pressure held, hemostasis noted, dressings applied. cath tip sent for cultures DVT duplex studies with acute thrombus IV Abx as per ID UA pending Cx results keep RUE elevated on pillows okay for diet AM labs anticoagulation off load pressure for dti noted cellulitis and edema improved deteriorated intubated on vent support likely respiratory insufficiency labs ordered wean vent okay for tube feeds via ng - cont as tolerated wean vent am labs HD as per renal will follow with recs thank you (2) Cellulitis Assessment & Plan: Pt presented on admission with reabsorbing blister lateral R heel. Base of injury indurated with delineated margins(L)4cm x (W)3cm.Non- blanching erythema Sacrum ,R and L buttocks(L)8.5cm x (W)9cm, with a partial thickness pressure injury noted to L buttocks. Base of wound is moist and viable (L)2.3cm x (W)3cm. Area around wound tender when minimally palpated. Pt noted to be wearing splint L foot. Per pt he fractured foot a few weeks ago. Splint removed to assess skin integrity. L heel and malleoli are pink and blanchable.Cavilon Skin Barrier applied to L heel and malleoli and each area covered with Optifoam drsg. Splint reapplied. No other skin concerns noted. unchanged Partial Thickness pressure injury L buttocks resolved . Non-blanching erythema without induration noted to Sacrum,R and L buttocks. (L)8cm x (W)9cm. Scrotum is grossly enlarged and is erythematous and macerated. Penile shaft is grossly swollen .Pt noted to have a partially opened blood blister with 25% biofilm at base of shaft of penis.(L)4.5cm x (W)2.5cm. Bilat groin, medial /posterior aspects of both upper thighs are erythematous and denuded. R lower ext edematous. R heel blister reabsorbed. Non--blanching erythema without induration noted to R heel. Splint removed from L foot. Optifoam drsgs removed from malleoli and heel. Pt noted to have developed several DTPI's despite having Optifoam drsgs. DTPI noted to L achilles . Base of wound is purple and fluctuant (L)0.6cm x (W) 2.7cm.DTPI noted to medial L malleolus(L)0.2cm x (W)0.3cm.Base of wound is purple with marginal erythema. DTPI noted to dorsal L foot. Base of wound is purple with marginal erythema along borders (L)0.9cm x (W)0.5cm.L heel is boggy with non-blanching erythema. Cavilon Skin Barrier applied to affected areas on L foot . Dorsal L foot ,Achilles .R and L malleoli and L heel each covered with Optifoam drsg. Non-blanching erythema without induration noted to lateral L tibia. At plantar aspect of L hallux small dry eschar noted. No erythema or fluctuance periwound. (L)0.5cm x (W)0.4cm. IN addition to Optifoam drsgs placed over each bony prominence of L foot ABD pads placed over dorsal and plantar L foot , Abd pads aligned along L tibia. Splint realigned to L foot Wrapped loosely with Kerlix then wrapped loosely with [place] wrap. L foot floated off mattress with pillow. Tx.Plan: Apply Cavilon to Dorsal L foot. L achilles .Medial/Lateral Malleoli L Foot and L heel. Cover each site with Optifoam drsg. Change every 7 days and prn. Apply Cavilon Plantar L foot. Cover with Optifoam drsg. Change every 7 days and prn. Apply Moisture Barrier Paste to sacrum. Cover with Optifoam drsg. Changee very 7 days and prn. Apply Cavilon Skin Barrier to Both heels. Cover each heel with Optifoam drsg. Change every 7 days and prn. Cleanse wound Shaft of penis with saline. Apply Moisture Barrier Paste Daily and prn. Apply Moisture Barrier Paste to Bilat groin, Scrotum, Medial/Posterior aspects of both upper thighs with each perineal care. Reposition at least every 2hours or as tolerated. Off-load heels with pillows. APM/LA L Mattress overlay. (3) SOB (shortness of breath) Assessment & Plan: Unfortunately patient has been in the intensive care unit on ventilatory support unable to be weaned from vent. Will likely require prolonged ventilatory support. Respiratory insufficiency not improving. Patient is full code as per identifiable documentation in patient's chart and medical record. No family or next kin available. Given patient's wishes current condition and course of a care tracheostomy is indicated recommended. Tracheostomy would be medically necessary as a next step in patient's care plan. s/p trach wean vent (4) Deep tissue injury Assessment & Plan: appreciate vascular input Bennett Logan Jun 21, 2019 11:26
--- NOTE | 2019-06-21 11:45 | Nephrology Progress Note ---
Assessment/Plan Problem List: (1) Renal failure (ARF), acute on chronic Assessment: Cr rising (2) Cellulitis of upper extremity (3) A-fib (4) Pneumonia (5) UTI (urinary tract infection) (6) Anemia Assessment: worsened (7) Hypothyroidism Assessment - KIMO on CKD - Urinary tract infection. - Anemia- - Dehydration. - Cellulitis of Upper extremity - HTN Plan taper steroids as possible on hydralazine dialysis last 06/14 - will observe renal parameters Trach 06/16 ! DC Midodrine DC IV IV Calcium and PO Vit D ad needed Transfuse one unit PRBcs in ICU- intubated BP meds and Mind altering meds discontinued On midodrine check vanco levels - hold vanco doses previously: Per cardiology Anemia kumari- Avoid Nephrotoxics Per ID Allow CHANDA inhibitor to continue as long as renal function does not worsen. PICC line has been removed. CXR: Increased right pleural effusion and similar left pleural effusion. Increased interstitial and hazy opacities throughout the lungs. Subjective ROS Limited/Unobtainable: Yes Objective Objective Last 24 Hour Vital Signs Date Time Temp Pulse Resp B/P (MAP) Pulse Ox O2 Delivery O2 Flow Rate FiO2 06/21/19 10:35 98 06/21/19 09:29 83 18 35 06/21/19 08:00 35 06/21/19 08:00 82 06/21/19 08:00 97.7 83 20 152/75 (100) 100 06/21/19 07:00 79 19 35 06/21/19 05:48 144/72 06/21/19 04:58 84 19 35 06/21/19 04:00 98.3 81 20 144/72 (96) 99 06/21/19 04:00 35 06/21/19 04:00 Mechanical Ventilator 35.0 06/21/19 04:00 74 06/21/19 02:59 74 18 35 06/21/19 00:52 76 19 35 06/21/19 00:00 98.6 76 19 138/72 (94) 99 06/21/19 00:00 35 06/21/19 00:00 Mechanical Ventilator 35.0 06/21/19 00:00 68 06/20/19 23:21 79 19 35 06/20/19 23:14 140/89 06/20/19 20:49 78 22 35 06/20/19 20:00 98.1 78 19 133/75 (94) 98 06/20/19 20:00 78 06/20/19 20:00 78 06/20/19 20:00 35 06/20/19 20:00 Mechanical Ventilator 35.0 06/20/19 18:50 71 16 35 06/20/19 17:28 87 16 35 06/20/19 17:10 142/76 06/20/19 16:00 Mechanical Ventilator 35.0 06/20/19 16:00 78 06/20/19 16:00 35 06/20/19 16:00 98.2 83 16 142/76 (98) 99 06/20/19 15:26 83 16 35 06/20/19 13:35 150/75 06/20/19 13:29 86 18 35 06/20/19 12:00 Mechanical Ventilator 35.0 06/20/19 12:00 35 06/20/19 12:00 98.2 76 16 150/75 (100) 99 Intake and Output 06/20/19 06/21/19 19:00 07:00 Intake Total 620 ml 400 ml Output Total 900 ml Balance 620 ml -500 ml Free Water 80 ml 120 ml IV Total 100 ml Tube Feeding 440 ml 280 ml Output Urine Total 700 ml Stool Total 200 ml Laboratory Tests 06/20/19 14:15: Sodium Level 150H, Potassium Level 3.7, Chloride Level 112H, Carbon Dioxide Level 28, Anion Gap 10, Blood Urea Nitrogen 87H, Creatinine 3.9H, Estimat Glomerular Filtration Rate , Glucose Level 185H, Calcium Level 7.1L, Phosphorus Level 3.3, Magnesium Level 2.1, Total Bilirubin 0.3, Aspartate Amino Transf (AST /SGOT) 49H, Alanine Aminotransferase (ALT/SGPT) 44, Alkaline Phosphatase 90, Total Protein 4.4L, Albumin 1.5L, Globulin 2.9, Albumin/Globulin Ratio 0.5L Height (Feet): 5 Height (Inches): 7.00 Weight (Pounds): 175 General Appearance: no apparent distress EENT: other - vented Cardiovascular: normal rate Respiratory/Chest: decreased breath sounds Abdomen: distended Objective no change Reinier Mera MD Jun 21, 2019 11:45
[2019-06-21 12:00] VITALS: BP 140/80
[2019-06-21] MEDS ORDERED: NS 275ml ONE (13:42)
[2019-06-21 16:00] VITALS: BP 159/81
--- NOTE | 2019-06-21 16:44 | Pulmonology Progress Note ---
Assessment/Plan Assessment/Plan IMPRESSION AND PLAN: 1. S/p tracheostomy 2. Cellulitis. 3. History of COPD. 4. Hypertension. 5. Afib with RVR; rate controlled 6. Respiratory failure; 7. REnal failure DISCUSSION: 1. S/p trach; 2. Continue present management and care. 3. Continue medications and HHN with atrovent only 4. DC planning 5. Wean and attempt trach collar Arsen Whittaker M.D. Subjective Interval Events: Awake and responsive; weaning Constitutional: Reports: no symptoms HEENT: Repors: no symptoms Respiratory: Reports: no symptoms Cardiovascular: Reports: no symptoms Gastrointestinal/Abdominal: Reports: no symptoms Allergies: Coded Allergies: No Known Allergies (Unverified , 05/18/19) Objective Last 24 Hour Vital Signs Date Time Temp Pulse Resp B/P (MAP) Pulse Ox O2 Delivery O2 Flow Rate FiO2 06/21/19 16:00 Mechanical Ventilator 35.0 06/21/19 16:00 35 06/21/19 15:20 91 22 35 06/21/19 13:11 148/80 06/21/19 12:54 98 22 35 06/21/19 12:00 84 06/21/19 12:00 35 06/21/19 12:00 98.0 86 20 140/80 (100) 100 06/21/19 12:00 Mechanical Ventilator 35.0 06/21/19 10:35 98 06/21/19 10:35 99 18 35 35 06/21/19 09:45 Mechanical Ventilator 35.0 06/21/19 09:29 83 18 35 06/21/19 08:00 35 06/21/19 08:00 82 06/21/19 08:00 97.7 83 20 152/75 (100) 100 06/21/19 07:00 79 19 35 06/21/19 05:48 144/72 06/21/19 04:58 84 19 35 06/21/19 04:00 98.3 81 20 144/72 (96) 99 06/21/19 04:00 35 06/21/19 04:00 Mechanical Ventilator 35.0 06/21/19 04:00 74 1/25/20 02:59 74 18 35 06/21/19 00:52 76 19 35 06/21/19 00:00 98.6 76 19 138/72 (94) 99 06/21/19 00:00 35 06/21/19 00:00 Mechanical Ventilator 35.0 06/21/19 00:00 68 06/20/19 23:21 79 19 35 06/20/19 23:14 140/89 06/20/19 20:49 78 22 35 06/20/19 20:00 98.1 78 19 133/75 (94) 98 06/20/19 20:00 78 06/20/19 20:00 78 06/20/19 20:00 35 06/20/19 20:00 Mechanical Ventilator 35.0 06/20/19 18:50 71 16 35 06/20/19 17:28 87 16 35 06/20/19 17:10 142/76 Intake and Output 06/20/19 06/21/19 19:00 07:00 Intake Total 620 ml 400 ml Output Total 900 ml Balance 620 ml -500 ml Free Water 80 ml 120 ml IV Total 100 ml Tube Feeding 440 ml 280 ml Output Urine Total 700 ml Stool Total 200 ml General Appearance: no acute distress HEENT: normocephalic Respiratory/Chest: chest wall non-tender Cardiovascular: normal peripheral pulses Abdomen: normal bowel sounds Current Medications Medications (Trade) Dose Ordered Sig/Phillip Route PRN Reason Start Time Stop Time Status Last Admin Dose Admin Acetaminophen (Tylenol) 500 mg Q4H PRN GT Mild Pain/Temp > 100.5 06/17/19 19:43 07/17/19 19:42 Amiodarone HCl (Cordarone) 200 mg DAILY GT 06/18/19 09:00 07/07/19 16:14 06/21/19 10:18 Chlorhexidine Gluconate (Reina-Hex 2%) 1 applic DAILY@2000 TOPIC 06/17/19 20:00 06/26/19 19:59 06/20/19 20:06 Clonidine HCl (Catapres Tab) 0.1 mg Q4H PRN GT For High Blood Pressure 06/17/19 19:44 07/17/19 19:43 Daptomycin 500 mg/ Sodium Chloride 55 ml @ 100 mls/hr Q48H IV 06/18/19 13:00 06/23/19 23:59 06/20/19 13:35 Hydralazine HCl (Apresoline) 20 mg Q6HR GT 06/21/19 12:00 07/18/19 11:59 06/21/19 13:11 Lansoprazole (Prevacid) 30 mg BID GT 06/18/19 09:00 07/06/19 17:59 06/21/19 10:18 Metoprolol Tartrate (Lopressor) 5 mg Q5MIN X 3 IVP 06/17/19 19:45 07/07/19 16:14 Prednisone (predniSONE) 15 mg DAILY GT 06/22/19 09:00 07/21/19 08:59 Vitamin D (Vitamin D) 5,000 intlu DAILY GT 06/18/19 09:00 07/07/19 12:59 06/21/19 10:20 Arsen Whittaker MD Jun 21, 2019 16:44
[2019-06-21 20:00] VITALS: BP 150/73
[2019-06-21] MEDS: Dyna-Hex 2% Top Sol 2oz TOPIC SCH (20:33)
--- NOTE | 2019-06-21 20:55 | General Progress Note ---
Assessment/Plan Problem List: (1) SOB (shortness of breath) ICD Codes: R06.02 - Shortness of breath SNOMED: 973999376 (2) Cellulitis ICD Codes: L03.90 - Cellulitis, unspecified SNOMED: 096323944 (3) Cellulitis of upper extremity ICD Codes: L03.119 - Cellulitis of unspecified part of limb SNOMED: 114561137 Qualifiers: Qualified Codes: L03.113 - Cellulitis of right upper limb (4) Renal insufficiency ICD Codes: N28.9 - Disorder of kidney and ureter, unspecified SNOMED: 580686436, 260482842 (5) Renal failure (ARF), acute on chronic ICD Codes: N17.9 - Acute kidney failure, unspecified; N18.9 - Chronic kidney disease, unspecified SNOMED: 074844541 (6) Anemia ICD Codes: D64.9 - Anemia, unspecified SNOMED: 476980592 (7) Hypothyroidism ICD Codes: E03.9 - Hypothyroidism, unspecified SNOMED: 14467733 (8) UTI (urinary tract infection) ICD Codes: N39.0 - Urinary tract infection, site not specified SNOMED: 10303708 Status: stable, progressing Assessment/Plan: resp insuff no wheezing vitals stable hypothroid le fracture jessi eval trach chf pna sepsis edema pna Subjective ROS Limited/Unobtainable: Yes Allergies: Coded Allergies: No Known Allergies (Unverified , 05/18/19) Objective Last 24 Hour Vital Signs Date Time Temp Pulse Resp B/P (MAP) Pulse Ox O2 Delivery O2 Flow Rate FiO2 06/21/19 20:45 82 20 35 06/21/19 20:11 92 23 35 06/21/19 18:02 159/81 06/21/19 17:42 102 28 35 06/21/19 16:00 88 06/21/19 16:00 Mechanical Ventilator 35.0 06/21/19 16:00 98.8 98 14 159/81 (107) 100 06/21/19 16:00 35 06/21/19 15:20 91 22 35 06/21/19 13:11 148/80 06/21/19 12:54 98 22 35 06/21/19 12:00 84 06/21/19 12:00 35 06/21/19 12:00 98.0 86 20 140/80 (100) 100 06/21/19 12:00 Mechanical Ventilator 35.0 06/21/19 10:35 98 06/21/19 10:35 99 18 35 35 06/21/19 09:45 Mechanical Ventilator 35.0 06/21/19 09:29 83 18 35 06/21/19 08:00 35 06/21/19 08:00 82 06/21/19 08:00 97.7 83 20 152/75 (100) 100 06/21/19 07:00 79 19 35 06/21/19 05:48 144/72 06/21/19 04:58 84 19 35 06/21/19 04:00 98.3 81 20 144/72 (96) 99 06/21/19 04:00 35 06/21/19 04:00 Mechanical Ventilator 35.0 06/21/19 04:00 74 06/21/19 02:59 74 18 35 06/21/19 00:52 76 19 35 06/21/19 00:00 98.6 76 19 138/72 (94) 99 06/21/19 00:00 35 06/21/19 00:00 Mechanical Ventilator 35.0 06/21/19 00:00 68 06/20/19 23:21 79 19 35 06/20/19 23:14 140/89 Intake and Output 06/20/19 06/21/19 19:00 07:00 Intake Total 620 ml 400 ml Output Total 900 ml Balance 620 ml -500 ml Free Water 80 ml 120 ml IV Total 100 ml Tube Feeding 440 ml 280 ml Output Urine Total 700 ml Stool Total 200 ml Height (Feet): 5 Height (Inches): 7.00 Weight (Pounds): 175 Cardiovascular: regular rhythm Respiratory/Chest: lungs clear Abdomen: soft Joslyn Wiggins MD Jun 21, 2019 20:55
[2019-06-22] VITALS: BP 153/76
[2019-06-22] MEDS: HydrALAZINE 10mg Tab GT SCH ×2 (00:13→05:12)
--- NOTE | 2019-06-22 02:11 | Progress Note ---
DATE: 06/21/2019 SUBJECTIVE: The patient is trach dependent. The patient has episodes of anxiety. More alert. No acute distress noted. MENTAL STATUS EXAMINATION: The patient is oriented x1. Mood is neutral to anxious. Affect is flat. Thought process, there is paucity of thought content. Thought content, no suicidal or homicidal ideation. Cognition is impaired. ASSESSMENT: Cognitive impairment. PLAN: Piter Pedraza M.D. DR: IRMA JOB#: [id number] CC: SARA
[2019-06-22 04:00] VITALS: BP 150/68
[2019-06-22 04:41] LABS: HEMATOCRIT 31.4 % (42.0-52.0); HEMOGLOBIN 10.6 G/DL (14.2-18.0); MEAN CORPUSCULAR VOLUME 92 FL (80-99); PLATELET COUNT 88 K/UL (150-450); RED BLOOD COUNT 3.42 M/UL (4.70-6.10); RED CELL DISTRIBUTION WIDTH 15.1 % (11.6-14.8); WHITE BLOOD COUNT 7.2 K/UL (4.8-10.8)
[2019-06-22 05:02] LABS: % IRON SATURATION 29 % (15-50); IRON 48 ug/dL (50-175); TOTAL IRON BINDING CAPACITY 165 ug/dL (250-450)
[2019-06-22 05:16] LABS: ALANINE AMINOTRANSFERASE 133 U/L (12-78); ALBUMIN 1.6 G/DL (3.4-5.0); ALBUMIN/GLOBULIN RATIO 0.5 (1.0-2.7); ALKALINE PHOSPHATASE 120 U/L (46-116); ANION GAP 8 mmol/L (5-15); ASPARTATE AMINO TRANSFERASE 106 U/L (15-37); BILIRUBIN,TOTAL 0.4 MG/DL (0.2-1.0); BLOOD UREA NITROGEN 96 mg/dL (7-18); CALCIUM 7.6 MG/DL (8.5-10.1); CARBON DIOXIDE 29 MMOL/L (21-32); CHLORIDE 112 MMOL/L (98-107); CREATININE 3.7 MG/DL (0.55-1.30); FERRITIN 1489 NG/ML (8-388); PHOSPHORUS 3.3 MG/DL (2.5-4.9); POTASSIUM 3.6 MMOL/L (3.5-5.1); SODIUM 149 MMOL/L (136-145)
--- NOTE | 2019-06-22 07:30 | General Progress Note ---
Assessment/Plan Problem List: (1) Dysphagia ICD Codes: R13.10 - Dysphagia, unspecified SNOMED: 28179794, 400961038 (2) Anemia ICD Codes: D64.9 - Anemia, unspecified SNOMED: 934888587 (3) Hypothyroidism ICD Codes: E03.9 - Hypothyroidism, unspecified SNOMED: 01304416 (4) Thrombus ICD Codes: I82.90 - Acute embolism and thrombosis of unspecified vein SNOMED: 13662614, 37287524, 941013105, 756097761 (5) A-fib ICD Codes: I48.91 - Unspecified atrial fibrillation SNOMED: 62343992 Status: stable, progressing Assessment/Plan: Assessment/Plan Problems: (1) Anemia ICD Codes: D64.9 - Anemia, unspecified SNOMED: 639679602 (2) Dysphagia ICD Codes: R13.10 - Dysphagia, unspecified SNOMED: 64188031, 931039003 Status: stable s/p PEG 06/13/19 GTF GT site care prn transfusions ppi fu pulm fu labs abx per ID on HD Subjective ROS Limited/Unobtainable: No Allergies: Coded Allergies: No Known Allergies (Unverified , 05/18/19) Subjective coded today Objective Last 24 Hour Vital Signs Date Time Temp Pulse Resp B/P (MAP) Pulse Ox O2 Delivery O2 Flow Rate FiO2 06/22/19 05:12 151/82 06/22/19 04:42 85 22 35 06/22/19 04:00 35 06/22/19 04:00 90 06/22/19 04:00 Mechanical Ventilator 35.0 06/22/19 04:00 97.7 81 20 150/68 (95) 100 06/22/19 02:38 94 26 35 06/22/19 00:50 70 16 35 06/22/19 00:13 147/74 06/22/19 00:00 80 06/22/19 00:00 Mechanical Ventilator 35.0 06/22/19 00:00 98.5 87 18 153/76 (101) 99 06/22/19 00:00 35 06/21/19 22:48 73 16 35 06/21/19 20:45 82 20 35 06/21/19 20:11 92 23 35 06/21/19 20:00 98.3 91 18 150/73 (98) 100 06/21/19 20:00 Mechanical Ventilator 35.0 06/21/19 20:00 91 06/21/19 20:00 35 06/21/19 18:02 159/81 06/21/19 17:42 102 28 35 06/21/19 16:00 88 06/21/19 16:00 Mechanical Ventilator 35.0 06/21/19 16:00 98.8 98 14 159/81 (107) 100 06/21/19 16:00 35 06/21/19 15:20 91 22 35 06/21/19 13:11 148/80 06/21/19 12:54 98 22 35 06/21/19 12:00 84 06/21/19 12:00 35 06/21/19 12:00 98.0 86 20 140/80 (100) 100 06/21/19 12:00 Mechanical Ventilator 35.0 06/21/19 10:35 98 06/21/19 10:35 99 18 35 35 06/21/19 09:45 Mechanical Ventilator 35.0 06/21/19 09:29 83 18 35 06/21/19 08:00 35 06/21/19 08:00 82 06/21/19 08:00 97.7 83 20 152/75 (100) 100 Intake and Output 06/21/19 06/22/19 19:00 07:00 Intake Total 720 ml 740 ml Output Total 700 ml 400 ml Balance 20 ml 340 ml Free Water 200 ml 200 ml Tube Feeding 400 ml 440 ml Other 120 ml 100 ml Output Urine Total 600 ml 300 ml Stool Total 100 ml 100 ml Laboratory Tests 06/22/19 03:35: White Blood Count 7.2, Red Blood Count 3.42L, Hemoglobin 10.6L, Hematocrit 31.4L , Mean Corpuscular Volume 92, Mean Corpuscular Hemoglobin 31.1H, Mean Corpuscular Hemoglobin Concent 33.9, Red Cell Distribution Width 15.1H, Platelet Count 88L, Mean Platelet Volume 6.5, Neutrophils (%) (Auto) , Lymphocytes (%) (Auto) , Monocytes (%) (Auto) , Eosinophils (%) (Auto) , Basophils (%) (Auto) , Neutrophils % (Manual) [Pending], Lymphocytes % (Manual) [Pending], Platelet Estimate [Pending], Platelet Morphology [Pending], Sodium Level 149H, Potassium Level 3.6, Chloride Level 112H, Carbon Dioxide Level 29, Anion Gap 8, Blood Urea Nitrogen 96H, Creatinine 3.7H, Estimat Glomerular Filtration Rate , Glucose Level 128H, Calcium Level 7.6L, Phosphorus Level 3.3, Magnesium Level 2.3, Iron Level 48L, Total Iron Binding Capacity 165L, Percent Iron Saturation 29, Unsaturated Iron Binding 117, Ferritin 1489H, Total Bilirubin 0.4, Aspartate Amino Transf (AST/SGOT) 106H, Alanine Aminotransferase (ALT/SGPT) 133H, Alkaline Phosphatase 120H, Total Protein 5.0L, Albumin 1.6L, Globulin 3.4, Albumin/Globulin Ratio 0.5L, Vitamin B12 Level 1152H, Folate 8.8, Random Vancomycin Level 5.2 Height (Feet): 5 Height (Inches): 7.00 Weight (Pounds): 178 General Appearance: lethargic EENT: normal ENT inspection Neck: supple Cardiovascular: normal rate Respiratory/Chest: decreased breath sounds Abdomen: normal bowel sounds, non tender, soft Extremities: non-tender Valentino Lino MD Jun 22, 2019 07:30
[2019-06-22 08:00] VITALS: BP 143/75
[2019-06-22] MEDS: Vitamin D 1000 IU Tab GT SCH (08:52)
[2019-06-22] MEDS: Amiodarone 200mg tab GT SCH (08:52)
--- NOTE | 2019-06-22 10:02 | Hematology/Onc Progress Note ---
Assessment/Plan Assessment/Plan # Anemia of chronic disease due to underlying chronic medical issues, multifactorial v Gi bleed --> Anemia workup has been reviewed, ferritin >1k --> No evidence of hemolysis is noted, peripheral smear has been reviewed. --> Hgb goal >7. Transfuse prn. --> Epogen or iron at this time is not particularly indicated --> Medications have been reviewed --> low threshold for gi evaluation in case has occult + --> hgb trend: 9.3-->9.7-->8.1-->7.6-->8-->9.4-->9.2->7.5-->9.3-->8-->8.1-->8.6- ->7.8-->8.3-->7.6-->8.2-->8.6-->10.4-->10.6 --> transf 05/28/19 with 1 unit prbc, 1 unit on 06/03, again on 06/18 --> transfusion is a emergency, no family, no poa, is okay to transfuse # Right upper arm extremity axillary vein dvt --> agree to continue eliquis --> continue for total of minimum of 3 months --> rescan arm in 3 mo # Thrombocytopenia is due to infection, i.e. cellulitis of upper extremity, likely picc line infection --> as per id on ax --> picc off --> levoflox/vanc-->zosyn/vanc--> zosyn-->dapto/zosyn --> plt trend 208-->132-->146k-->159-->217-->211-->145-->117-->145-->111-->88 # Respiratory failure s/p vent --> has been failing weaning --> trach 06/16 # KIMO on CKD --> per Dr. Mera --> HD as needed # Pneumonia --> abx per id # Dehydration. --> goal of euvolemia # Paroxysmal Atrial fibrillation with rapid ventricular response was on amiodarone gtt, now in sinus rhythm. --> per cards On PO amiodarone 200 bid, Lopressor 25 bid # Dysphagia with ng tube --> s/p peg 06/13 # Septic shock --> has required icu admission, and pressor # Dvt ppx eliquis--> continued The timing of this note does not necessarily reflect the time of the patient was seen. Greatly appreciate consultation. Subjective Allergies: Coded Allergies: No Known Allergies (Unverified , 05/18/19) Subjective 05/24: awake and alert, v mask, labs reviewed, apixaban 05/25: as per gi, ngt and eliquis tolerated 05/26: pending clearance but still with ng and nonrebreather 05/27: hypoxic yesterday, deteriorated, coded, now intubated, icu, labs noted 05/28: icu, levophed gtt, hgb 7.6, repeat cbc 05/29: remains in the icu, given prbc last night, no bleeding 05/30: no events, no bleeding, ++ fredo and on pressor 05/31: intubated, bp better on pressor, no bleeding, coag ordered 06/02: reamins ill appearing, on vent, labs noted, on vent, poorly responsive 06/03: no events, no bleeding, labs noted, dw surgery, and Rn, monitoring plt 06/04: tolerating tube feeds, labs noted, in the icu 06/05: restraints, cxr unchanged, anticoagulants on hold until further notice 06/06: no events, no bleeding, no night sweats, no bleeding 06/08: icu, unable to wean per resp, apixaban restarted, labs reviewed 06/09: minimally responsive, on vent and gt feeds, no bleeding 06/10: no acute events, failed to wean, hd for today, h/h stable 06/11: remains altered, may need trach, coags ordered, no bleeding currently 06/12: no events, no bleeding, trach pending, no major changes 06/13: icu, weaning failed, egd pending, hgb 7.6, repeat cbc 06/15: no events, no bleeding, is more responsive, labs reviewed, no changes, on pressor 06/16: remains on vent, no bleeding, on pressors, labs noted 06/17: now is s/p trach as well, on vent, labs reviewed, jeison Rn Sal 06/18: no new events, transferred out of the icu, s/p peg and trach 06/19: s/p prbc, hgb improved to 10.4, seen by rt, no resp distress 06/20: remains confused, getting amio per cards, hgb better, psych recs noted 06/22: sdu, no acute events, ferritin >1k, hep panel negative Objective Objective Current Medications Medications (Trade) Dose Ordered Sig/Phillip Route PRN Reason Start Time Stop Time Status Last Admin Dose Admin Acetaminophen (Tylenol) 500 mg Q4H PRN GT Mild Pain/Temp > 100.5 06/17/19 19:43 07/17/19 19:42 Amiodarone HCl (Cordarone) 200 mg DAILY GT 06/18/19 09:00 07/07/19 16:14 06/22/19 08:52 Chlorhexidine Gluconate (Reina-Hex 2%) 1 applic DAILY@2000 TOPIC 06/17/19 20:00 06/26/19 19:59 06/21/19 20:33 Clonidine HCl (Catapres Tab) 0.1 mg Q4H PRN GT For High Blood Pressure 06/17/19 19:44 07/17/19 19:43 Daptomycin 500 mg/ Sodium Chloride 55 ml @ 100 mls/hr Q48H IV 06/18/19 13:00 06/23/19 23:59 06/20/19 13:35 Hydralazine HCl (Apresoline) 20 mg Q6HR GT 06/21/19 12:00 07/18/19 11:59 06/22/19 05:12 Lansoprazole (Prevacid) 30 mg BID GT 06/18/19 09:00 07/06/19 17:59 06/22/19 08:52 Metoprolol Tartrate (Lopressor) 5 mg Q5MIN X 3 IVP 06/17/19 19:45 07/07/19 16:14 Prednisone (predniSONE) 15 mg DAILY GT 06/22/19 09:00 07/21/19 08:59 06/22/19 08:52 Vitamin D (Vitamin D) 5,000 intlu DAILY GT 06/18/19 09:00 07/07/19 12:59 06/22/19 08:52 Last 24 Hour Vital Signs Date Time Temp Pulse Resp B/P (MAP) Pulse Ox O2 Delivery O2 Flow Rate FiO2 06/22/19 08:33 98 06/22/19 08:33 74 20 35 06/22/19 08:00 97.3 85 19 143/75 (97) 99 06/22/19 08:00 35 06/22/19 08:00 Mechanical Ventilator 06/22/19 07:48 89 06/22/19 06:55 70 16 35 06/22/19 05:12 151/82 06/22/19 04:42 85 22 35 06/22/19 04:00 35 06/22/19 04:00 90 06/22/19 04:00 Mechanical Ventilator 35.0 06/22/19 04:00 97.7 81 20 150/68 (95) 100 06/22/19 02:38 94 26 35 06/22/19 00:50 70 16 35 06/22/19 00:13 147/74 06/22/19 00:00 80 06/22/19 00:00 Mechanical Ventilator 35.0 06/22/19 00:00 98.5 87 18 153/76 (101) 99 06/22/19 00:00 35 06/21/19 22:48 73 16 35 06/21/19 20:45 82 20 35 06/21/19 20:11 92 23 35 06/21/19 20:00 98.3 91 18 150/73 (98) 100 06/21/19 20:00 Mechanical Ventilator 35.0 06/21/19 20:00 91 06/21/19 20:00 35 06/21/19 18:02 159/81 06/21/19 17:42 102 28 35 06/21/19 16:00 88 06/21/19 16:00 Mechanical Ventilator 35.0 06/21/19 16:00 98.8 98 14 159/81 (107) 100 06/21/19 16:00 35 06/21/19 15:20 91 22 35 06/21/19 13:11 148/80 06/21/19 12:54 98 22 35 06/21/19 12:00 84 06/21/19 12:00 35 06/21/19 12:00 98.0 86 20 140/80 (100) 100 06/21/19 12:00 Mechanical Ventilator 35.0 06/21/19 10:35 98 06/21/19 10:35 99 18 35 35 06/21/19 09:45 Mechanical Ventilator 35.0 06/21/19 09:29 83 18 35 06/21/19 08:00 35 06/21/19 08:00 82 06/21/19 08:00 97.7 83 20 152/75 (100) 100 06/21/19 07:00 79 19 35 06/21/19 05:48 144/72 06/21/19 04:58 84 19 35 06/21/19 04:00 98.3 81 20 144/72 (96) 99 06/21/19 04:00 35 06/21/19 04:00 Mechanical Ventilator 35.0 06/21/19 04:00 74 06/21/19 02:59 74 18 35 06/21/19 00:52 76 19 35 06/21/19 00:00 98.6 76 19 138/72 (94) 99 06/21/19 00:00 35 06/21/19 00:00 Mechanical Ventilator 35.0 06/21/19 00:00 68 06/20/19 23:21 79 19 35 06/20/19 23:14 140/89 06/20/19 20:49 78 22 35 06/20/19 20:00 98.1 78 19 133/75 (94) 98 06/20/19 20:00 78 06/20/19 20:00 78 06/20/19 20:00 35 06/20/19 20:00 Mechanical Ventilator 35.0 06/20/19 18:50 71 16 35 06/20/19 17:28 87 16 35 06/20/19 17:10 142/76 06/20/19 16:00 Mechanical Ventilator 35.0 06/20/19 16:00 78 06/20/19 16:00 35 06/20/19 16:00 98.2 83 16 142/76 (98) 99 06/20/19 15:26 83 16 35 06/20/19 13:35 150/75 06/20/19 13:29 86 18 35 06/20/19 12:00 Mechanical Ventilator 35.0 06/20/19 12:00 35 06/20/19 12:00 98.2 76 16 150/75 (100) 99 06/20/19 11:30 88 16 35 06/20/19 11:27 73 Intake and Output 06/21/19 06/22/19 19:00 07:00 Intake Total 720 ml 740 ml Output Total 700 ml 400 ml Balance 20 ml 340 ml Free Water 200 ml 200 ml Tube Feeding 400 ml 440 ml Other 120 ml 100 ml Output Urine Total 600 ml 300 ml Stool Total 100 ml 100 ml Labs Test 06/20/19 06:30 06/20/19 14:15 06/22/19 03:35 Hepatitis A IgM Antibody Negative (Negative) Hepatitis B Surface Antigen Negative (Negative) Hepatitis B Core IgM Antibody Negative (Negative) Hepatitis C Antibody 0.1 s/co ratio (0.0-0.9) Sodium Level 150 MMOL/L (136-145) 149 MMOL/L (136-145) Potassium Level 3.7 MMOL/L (3.5-5.1) 3.6 MMOL/L (3.5-5.1) Chloride Level 112 MMOL/L (98-107) 112 MMOL/L (98-107) Carbon Dioxide Level 28 MMOL/L (21-32) 29 MMOL/L (21-32) Anion Gap 10 mmol/L (5-15) 8 mmol/L (5-15) Blood Urea Nitrogen 87 mg/dL (7-18) 96 mg/dL (7-18) Creatinine 3.9 MG/DL (0.55-1.30) 3.7 MG/DL (0.55-1.30) Estimat Glomerular Filtration Rate mL/min (>60) mL/min (>60) Glucose Level 185 MG/DL (74-106) 128 MG/DL (74-106) Calcium Level 7.1 MG/DL (8.5-10.1) 7.6 MG/DL (8.5-10.1) Phosphorus Level 3.3 MG/DL (2.5-4.9) 3.3 MG/DL (2.5-4.9) Magnesium Level 2.1 MG/DL (1.8-2.4) 2.3 MG/DL (1.8-2.4) Total Bilirubin 0.3 MG/DL (0.2-1.0) 0.4 MG/DL (0.2-1.0) Aspartate Amino Transf (AST/SGOT) 49 U/L (15-37) 106 U/L (15-37) Alanine Aminotransferase (ALT/SGPT) 44 U/L (12-78) 133 U/L (12-78) Alkaline Phosphatase 90 U/L (46-116) 120 U/L (46-116) Total Protein 4.4 G/DL (6.4-8.2) 5.0 G/DL (6.4-8.2) Albumin 1.5 G/DL (3.4-5.0) 1.6 G/DL (3.4-5.0) Globulin 2.9 g/dL 3.4 g/dL Albumin/Globulin Ratio 0.5 (1.0-2.7) 0.5 (1.0-2.7) White Blood Count 7.2 K/UL (4.8-10.8) Red Blood Count 3.42 M/UL (4.70-6.10) Hemoglobin 10.6 G/DL (14.2-18.0) Hematocrit 31.4 % (42.0-52.0) Mean Corpuscular Volume 92 FL (80-99) Mean Corpuscular Hemoglobin 31.1 PG (27.0-31.0) Mean Corpuscular Hemoglobin Concent 33.9 G/DL (32.0-36.0) Red Cell Distribution Width 15.1 % (11.6-14.8) Platelet Count 88 K/UL (150-450) Mean Platelet Volume 6.5 FL (6.5-10.1) Neutrophils (%) (Auto) % (45.0-75.0) Lymphocytes (%) (Auto) % (20.0-45.0) Monocytes (%) (Auto) % (1.0-10.0) Eosinophils (%) (Auto) % (0.0-3.0) Basophils (%) (Auto) % (0.0-2.0) Differential Total Cells Counted 100 Neutrophils % (Manual) 96 % (45-75) Lymphocytes % (Manual) 3 % (20-45) Monocytes % (Manual) 1 % (1-10) Eosinophils % (Manual) 0 % (0-3) Basophils % (Manual) 0 % (0-2) Band Neutrophils 0 % (0-8) Platelet Estimate Decreased Platelet Morphology Normal Hypochromasia 1+ Anisocytosis 1+ Iron Level 48 ug/dL (50-175) Total Iron Binding Capacity 165 ug/dL (250-450) Percent Iron Saturation 29 % (15-50) Unsaturated Iron Binding 117 ug/dL (112-346) Ferritin 1489 NG/ML (8-388) Vitamin B12 Level 1152 PG/ML (193-986) Folate 8.8 NG/ML (8.6-58.9) Random Vancomycin Level 5.2 ug/mL Height (Feet): 5 Height (Inches): 7.00 Weight (Pounds): 178 Objective PE: Vitals: reviewed General Appearance: NAD HEENT: normocephalic, atraumatic Neck: non-tender, normal alignment Respiratory/Chest: VENT++ ++ trach Cardiovascular/Chest: normal peripheral pulses, normal rate Abdomen: normal bowel sounds, soft, nontender ++ peg Extremities: normal range of motion ++ right arm swelling Suleman Addison MD Jun 22, 2019 10:02
--- NOTE | 2019-06-22 10:26 | Nephrology Progress Note ---
Assessment/Plan Problem List: (1) Renal failure (ARF), acute on chronic Assessment: Cr rising (2) Cellulitis of upper extremity (3) A-fib (4) Pneumonia (5) UTI (urinary tract infection) (6) Anemia Assessment: worsened (7) Hypothyroidism Assessment - KIMO on CKD - Urinary tract infection. - Anemia- - Dehydration. - Cellulitis of Upper extremity - HTN Plan no need for HD- remove dialysis cath in am- taper steroids as possible on hydralazine dialysis last 06/14 - will observe renal parameters Trach 06/16 ! DC Midodrine DC IV IV Calcium and PO Vit D ad needed Transfuse one unit PRBcs in ICU- intubated BP meds and Mind altering meds discontinued On midodrine check vanco levels - hold vanco doses previously: Per cardiology Anemia kumari- Avoid Nephrotoxics Per ID Allow CHANDA inhibitor to continue as long as renal function does not worsen. PICC line has been removed. CXR: Increased right pleural effusion and similar left pleural effusion. Increased interstitial and hazy opacities throughout the lungs. Subjective ROS Limited/Unobtainable: Yes Objective Objective Last 24 Hour Vital Signs Date Time Temp Pulse Resp B/P (MAP) Pulse Ox O2 Delivery O2 Flow Rate FiO2 06/22/19 08:33 98 06/22/19 08:33 74 20 35 06/22/19 08:00 97.3 85 19 143/75 (97) 99 06/22/19 08:00 35 06/22/19 08:00 Mechanical Ventilator 06/22/19 07:48 89 06/22/19 06:55 70 16 35 06/22/19 05:12 151/82 06/22/19 04:42 85 22 35 06/22/19 04:00 35 06/22/19 04:00 90 06/22/19 04:00 Mechanical Ventilator 35.0 06/22/19 04:00 97.7 81 20 150/68 (95) 100 06/22/19 02:38 94 26 35 06/22/19 00:50 70 16 35 06/22/19 00:13 147/74 06/22/19 00:00 80 06/22/19 00:00 Mechanical Ventilator 35.0 06/22/19 00:00 98.5 87 18 153/76 (101) 99 06/22/19 00:00 35 06/21/19 22:48 73 16 35 06/21/19 20:45 82 20 35 06/21/19 20:11 92 23 35 06/21/19 20:00 98.3 91 18 150/73 (98) 100 06/21/19 20:00 Mechanical Ventilator 35.0 06/21/19 20:00 91 06/21/19 20:00 35 06/21/19 18:02 159/81 06/21/19 17:42 102 28 35 06/21/19 16:00 88 06/21/19 16:00 Mechanical Ventilator 35.0 06/21/19 16:00 98.8 98 14 159/81 (107) 100 06/21/19 16:00 35 06/21/19 15:20 91 22 35 06/21/19 13:11 148/80 06/21/19 12:54 98 22 35 06/21/19 12:00 84 06/21/19 12:00 35 06/21/19 12:00 98.0 86 20 140/80 (100) 100 06/21/19 12:00 Mechanical Ventilator 35.0 06/21/19 10:35 98 06/21/19 10:35 99 18 35 35 Intake and Output 06/21/19 06/22/19 19:00 07:00 Intake Total 720 ml 740 ml Output Total 700 ml 400 ml Balance 20 ml 340 ml Free Water 200 ml 200 ml Tube Feeding 400 ml 440 ml Other 120 ml 100 ml Output Urine Total 600 ml 300 ml Stool Total 100 ml 100 ml Current Medications Medications (Trade) Dose Ordered Sig/Phillip Route PRN Reason Start Time Stop Time Status Last Admin Dose Admin Acetaminophen (Tylenol) 500 mg Q4H PRN GT Mild Pain/Temp > 100.5 06/17/19 19:43 07/17/19 19:42 Amiodarone HCl (Cordarone) 200 mg DAILY GT 06/18/19 09:00 07/07/19 16:14 06/22/19 08:52 Chlorhexidine Gluconate (Reina-Hex 2%) 1 applic DAILY@1999 TOPIC 06/17/19 20:00 06/26/19 19:59 06/21/19 20:33 Clonidine HCl (Catapres Tab) 0.1 mg Q4H PRN GT For High Blood Pressure 06/17/19 19:44 07/17/19 19:43 Daptomycin 500 mg/ Sodium Chloride 55 ml @ 100 mls/hr Q48H IV 06/18/19 13:00 06/23/19 23:59 06/20/19 13:35 Hydralazine HCl (Apresoline) 20 mg Q6HR GT 06/21/19 12:00 07/18/19 11:59 06/22/19 05:12 Lansoprazole (Prevacid) 30 mg BID GT 06/18/19 09:00 07/06/19 17:59 06/22/19 08:52 Metoprolol Tartrate (Lopressor) 5 mg Q5MIN X 3 IVP 06/17/19 19:45 07/07/19 16:14 Prednisone (predniSONE) 15 mg DAILY GT 06/22/19 09:00 07/21/19 08:59 06/22/19 08:52 Vitamin D (Vitamin D) 5,000 intlu DAILY GT 06/18/19 09:00 07/07/19 12:59 06/22/19 08:52 Laboratory Tests 06/22/19 03:35: White Blood Count 7.2, Red Blood Count 3.42L, Hemoglobin 10.6L, Hematocrit 31.4L , Mean Corpuscular Volume 92, Mean Corpuscular Hemoglobin 31.1H, Mean Corpuscular Hemoglobin Concent 33.9, Red Cell Distribution Width 15.1H, Platelet Count 88L, Mean Platelet Volume 6.5, Neutrophils (%) (Auto) , Lymphocytes (%) (Auto) , Monocytes (%) (Auto) , Eosinophils (%) (Auto) , Basophils (%) (Auto) , Differential Total Cells Counted 100, Neutrophils % ( Manual) 96H, Lymphocytes % (Manual) 3L, Monocytes % (Manual) 1, Eosinophils % ( Manual) 0, Basophils % (Manual) 0, Band Neutrophils 0, Platelet Estimate DecreasedL, Platelet Morphology Normal, Hypochromasia 1+, Anisocytosis 1+, Sodium Level 149H, Potassium Level 3.6, Chloride Level 112H, Carbon Dioxide Level 29, Anion Gap 8, Blood Urea Nitrogen 96H, Creatinine 3.7H, Estimat Glomerular Filtration Rate , Glucose Level 128H, Calcium Level 7.6L, Phosphorus Level 3.3, Magnesium Level 2.3, Iron Level 48L, Total Iron Binding Capacity 165L , Percent Iron Saturation 29, Unsaturated Iron Binding 117, Ferritin 1489H, Total Bilirubin 0.4, Aspartate Amino Transf (AST/SGOT) 106H, Alanine Aminotransferase (ALT/SGPT) 133H, Alkaline Phosphatase 120H, Total Protein 5.0L , Albumin 1.6L, Globulin 3.4, Albumin/Globulin Ratio 0.5L, Vitamin B12 Level 1152H, Folate 8.8, Random Vancomycin Level 5.2 Height (Feet): 5 Height (Inches): 7.00 Weight (Pounds): 178 General Appearance: no apparent distress EENT: other - vented Cardiovascular: normal rate Respiratory/Chest: decreased breath sounds Abdomen: soft Objective no change Reinier eMra MD Jun 22, 2019 10:26
--- NOTE | 2019-06-22 11:30 | Surgery Progress Note ---
Surgery Progress Note Subjective Procedure Performed tracheostomy Additional Comments no acute events comfortable stable Objective Last 24 Hour Vital Signs Date Time Temp Pulse Resp B/P (MAP) Pulse Ox O2 Delivery O2 Flow Rate FiO2 06/22/19 08:33 98 06/22/19 08:33 74 20 35 06/22/19 08:00 97.3 85 19 143/75 (97) 99 06/22/19 08:00 35 06/22/19 08:00 Mechanical Ventilator 06/22/19 07:48 89 06/22/19 06:55 70 16 35 06/22/19 05:12 151/82 06/22/19 04:42 85 22 35 06/22/19 04:00 35 06/22/19 04:00 90 06/22/19 04:00 Mechanical Ventilator 35.0 06/22/19 04:00 97.7 81 20 150/68 (95) 100 06/22/19 02:38 94 26 35 06/22/19 00:50 70 16 35 06/22/19 00:13 147/74 06/22/19 00:00 80 06/22/19 00:00 Mechanical Ventilator 35.0 06/22/19 00:00 98.5 87 18 153/76 (101) 99 06/22/19 00:00 35 06/21/19 22:48 73 16 35 06/21/19 20:45 82 20 35 06/21/19 20:11 92 23 35 06/21/19 20:00 98.3 91 18 150/73 (98) 100 06/21/19 20:00 Mechanical Ventilator 35.0 06/21/19 20:00 91 06/21/19 20:00 35 06/21/19 18:02 159/81 06/21/19 17:42 102 28 35 06/21/19 16:00 88 06/21/19 16:00 Mechanical Ventilator 35.0 06/21/19 16:00 98.8 98 14 159/81 (107) 100 06/21/19 16:00 35 06/21/19 15:20 91 22 35 06/21/19 13:11 148/80 06/21/19 12:54 98 22 35 06/21/19 12:00 84 06/21/19 12:00 35 06/21/19 12:00 98.0 86 20 140/80 (100) 100 06/21/19 12:00 Mechanical Ventilator 35.0 I&O Intake and Output 06/21/19 06/22/19 19:00 07:00 Intake Total 720 ml 740 ml Output Total 700 ml 400 ml Balance 20 ml 340 ml Free Water 200 ml 200 ml Tube Feeding 400 ml 440 ml Other 120 ml 100 ml Output Urine Total 600 ml 300 ml Stool Total 100 ml 100 ml Dressing: saturated, other Wound: other Drains: other Cardiovascular: RSR Respiratory: decreased breath sounds Abdomen: soft, present bowel sounds Extremities: no cyanosis Laboratory Tests Test 06/22/19 03:35 White Blood Count 7.2 K/UL (4.8-10.8) Red Blood Count 3.42 M/UL (4.70-6.10) L Hemoglobin 10.6 G/DL (14.2-18.0) L Hematocrit 31.4 % (42.0-52.0) L Mean Corpuscular Volume 92 FL (80-99) Mean Corpuscular Hemoglobin 31.1 PG (27.0-31.0) H Mean Corpuscular Hemoglobin Concent 33.9 G/DL (32.0-36.0) Red Cell Distribution Width 15.1 % (11.6-14.8) H Platelet Count 88 K/UL (150-450) L Mean Platelet Volume 6.5 FL (6.5-10.1) Neutrophils (%) (Auto) % (45.0-75.0) Lymphocytes (%) (Auto) % (20.0-45.0) Monocytes (%) (Auto) % (1.0-10.0) Eosinophils (%) (Auto) % (0.0-3.0) Basophils (%) (Auto) % (0.0-2.0) Differential Total Cells Counted 100 Neutrophils % (Manual) 96 % (45-75) H Lymphocytes % (Manual) 3 % (20-45) L Monocytes % (Manual) 1 % (1-10) Eosinophils % (Manual) 0 % (0-3) Basophils % (Manual) 0 % (0-2) Band Neutrophils 0 % (0-8) Platelet Estimate Decreased L Platelet Morphology Normal Hypochromasia 1+ Anisocytosis 1+ Sodium Level 149 MMOL/L (136-145) H Potassium Level 3.6 MMOL/L (3.5-5.1) Chloride Level 112 MMOL/L (98-107) H Carbon Dioxide Level 29 MMOL/L (21-32) Anion Gap 8 mmol/L (5-15) Blood Urea Nitrogen 96 mg/dL (7-18) H Creatinine 3.7 MG/DL (0.55-1.30) H Estimat Glomerular Filtration Rate mL/min (>60) Glucose Level 128 MG/DL (74-106) H Calcium Level 7.6 MG/DL (8.5-10.1) L Phosphorus Level 3.3 MG/DL (2.5-4.9) Magnesium Level 2.3 MG/DL (1.8-2.4) Iron Level 48 ug/dL (50-175) L Total Iron Binding Capacity 165 ug/dL (250-450) L Percent Iron Saturation 29 % (15-50) Unsaturated Iron Binding 117 ug/dL (112-346) Ferritin 1489 NG/ML (8-388) H Total Bilirubin 0.4 MG/DL (0.2-1.0) Aspartate Amino Transf (AST/SGOT) 106 U/L (15-37) H Alanine Aminotransferase (ALT/SGPT) 133 U/L (12-78) H Alkaline Phosphatase 120 U/L (46-116) H Total Protein 5.0 G/DL (6.4-8.2) L Albumin 1.6 G/DL (3.4-5.0) L Globulin 3.4 g/dL Albumin/Globulin Ratio 0.5 (1.0-2.7) L Vitamin B12 Level 1152 PG/ML (193-986) H Folate 8.8 NG/ML (8.6-58.9) Random Vancomycin Level 5.2 ug/mL Plan Problems: (1) Cellulitis of upper extremity Assessment & Plan: 84M with RUE cellulitis, edema, erythema. no drainage. has RUE picc line recommend removal of picc. removed at bedside by myself on 05/18. pressure held, hemostasis noted, dressings applied. cath tip sent for cultures DVT duplex studies with acute thrombus IV Abx as per ID UA pending Cx results keep RUE elevated on pillows okay for diet AM labs anticoagulation off load pressure for dti noted cellulitis and edema improved deteriorated intubated on vent support likely respiratory insufficiency labs ordered wean vent okay for tube feeds via ng - cont as tolerated wean vent am labs HD as per renal will follow with recs thank you (2) Cellulitis Assessment & Plan: Pt presented on admission with reabsorbing blister lateral R heel. Base of injury indurated with delineated margins(L)4cm x (W)3cm.Non- blanching erythema Sacrum ,R and L buttocks(L)8.5cm x (W)9cm, with a partial thickness pressure injury noted to L buttocks. Base of wound is moist and viable (L)2.3cm x (W)3cm. Area around wound tender when minimally palpated. Pt noted to be wearing splint L foot. Per pt he fractured foot a few weeks ago. Splint removed to assess skin integrity. L heel and malleoli are pink and blanchable.Cavilon Skin Barrier applied to L heel and malleoli and each area covered with Optifoam drsg. Splint reapplied. No other skin concerns noted. unchanged Partial Thickness pressure injury L buttocks resolved . Non-blanching erythema without induration noted to Sacrum,R and L buttocks. (L)8cm x (W)9cm. Scrotum is grossly enlarged and is erythematous and macerated. Penile shaft is grossly swollen .Pt noted to have a partially opened blood blister with 25% biofilm at base of shaft of penis.(L)4.5cm x (W)2.5cm. Bilat groin, medial /posterior aspects of both upper thighs are erythematous and denuded. R lower ext edematous. R heel blister reabsorbed. Non--blanching erythema without induration noted to R heel. Splint removed from L foot. Optifoam drsgs removed from malleoli and heel. Pt noted to have developed several DTPI's despite having Optifoam drsgs. DTPI noted to L achilles . Base of wound is purple and fluctuant (L)0.6cm x (W) 2.7cm.DTPI noted to medial L malleolus(L)0.2cm x (W)0.3cm.Base of wound is purple with marginal erythema. DTPI noted to dorsal L foot. Base of wound is purple with marginal erythema along borders (L)0.9cm x (W)0.5cm.L heel is boggy with non-blanching erythema. Cavilon Skin Barrier applied to affected areas on L foot . Dorsal L foot ,Achilles .R and L malleoli and L heel each covered with Optifoam drsg. Non-blanching erythema without induration noted to lateral L tibia. At plantar aspect of L hallux small dry eschar noted. No erythema or fluctuance periwound. (L)0.5cm x (W)0.4cm. IN addition to Optifoam drsgs placed over each bony prominence of L foot ABD pads placed over dorsal and plantar L foot , Abd pads aligned along L tibia. Splint realigned to L foot Wrapped loosely with Kerlix then wrapped loosely with [place] wrap. L foot floated off mattress with pillow. Tx.Plan: Apply Cavilon to Dorsal L foot. L achilles .Medial/Lateral Malleoli L Foot and L heel. Cover each site with Optifoam drsg. Change every 7 days and prn. Apply Cavilon Plantar L foot. Cover with Optifoam drsg. Change every 7 days and prn. Apply Moisture Barrier Paste to sacrum. Cover with Optifoam drsg. Changee very 7 days and prn. Apply Cavilon Skin Barrier to Both heels. Cover each heel with Optifoam drsg. Change every 7 days and prn. Cleanse wound Shaft of penis with saline. Apply Moisture Barrier Paste Daily and prn. Apply Moisture Barrier Paste to Bilat groin, Scrotum, Medial/Posterior aspects of both upper thighs with each perineal care. Reposition at least every 2hours or as tolerated. Off-load heels with pillows. APM/LA L Mattress overlay. (3) SOB (shortness of breath) Assessment & Plan: Unfortunately patient has been in the intensive care unit on ventilatory support unable to be weaned from vent. Will likely require prolonged ventilatory support. Respiratory insufficiency not improving. Patient is full code as per identifiable documentation in patient's chart and medical record. No family or next kin available. Given patient's wishes current condition and course of a care tracheostomy is indicated recommended. Tracheostomy would be medically necessary as a next step in patient's care plan. s/p trach wean vent (4) Deep tissue injury Assessment & Plan: appreciate vascular input Bennett Logan Jun 22, 2019 11:30
[2019-06-22 12:00] VITALS: BP 153/84
--- NOTE | 2019-06-22 12:11 | Pulmonology Progress Note ---
Assessment/Plan Assessment/Plan IMPRESSION AND PLAN: 1. S/p tracheostomy 2. Cellulitis. 3. History of COPD. 4. Hypertension. 5. Afib with RVR; rate controlled 6. Respiratory failure; 7. REnal failure DISCUSSION: 1. S/p trach; 2. Continue present management and care. 3. Continue medications and HHN with atrovent only 4. DC planning 5. Wean and attempt trach collar Arsen Whittaker M.D. Subjective Interval Events: None new; on trach collar Constitutional: Reports: no symptoms HEENT: Repors: no symptoms Respiratory: Reports: no symptoms Gastrointestinal/Abdominal: Reports: no symptoms Allergies: Coded Allergies: No Known Allergies (Unverified , 05/18/19) Objective Last 24 Hour Vital Signs Date Time Temp Pulse Resp B/P (MAP) Pulse Ox O2 Delivery O2 Flow Rate FiO2 06/22/19 08:33 98 06/22/19 08:33 74 20 35 06/22/19 08:00 97.3 85 19 143/75 (97) 99 06/22/19 08:00 35 06/22/19 08:00 Mechanical Ventilator 06/22/19 07:48 89 06/22/19 06:55 70 16 35 06/22/19 05:12 151/82 06/22/19 04:42 85 22 35 06/22/19 04:00 35 06/22/19 04:00 90 06/22/19 04:00 Mechanical Ventilator 35.0 06/22/19 04:00 97.7 81 20 150/68 (95) 100 06/22/19 02:38 94 26 35 06/22/19 00:50 70 16 35 06/22/19 00:13 147/74 06/22/19 00:00 80 06/22/19 00:00 Mechanical Ventilator 35.0 06/22/19 00:00 98.5 87 18 153/76 (101) 99 06/22/19 00:00 35 06/21/19 22:48 73 16 35 06/21/19 20:45 82 20 35 06/21/19 20:11 92 23 35 06/21/19 20:00 98.3 91 18 150/73 (98) 100 06/21/19 20:00 Mechanical Ventilator 35.0 06/21/19 20:00 91 06/21/19 20:00 35 06/21/19 18:02 159/81 06/21/19 17:42 102 28 35 06/21/19 16:00 88 06/21/19 16:00 Mechanical Ventilator 35.0 06/21/19 16:00 98.8 98 14 159/81 (107) 100 06/21/19 16:00 35 06/21/19 15:20 91 22 35 06/21/19 13:11 148/80 06/21/19 12:54 98 22 35 Intake and Output 06/21/19 06/22/19 19:00 07:00 Intake Total 720 ml 740 ml Output Total 700 ml 400 ml Balance 20 ml 340 ml Free Water 200 ml 200 ml Tube Feeding 400 ml 440 ml Other 120 ml 100 ml Output Urine Total 600 ml 300 ml Stool Total 100 ml 100 ml General Appearance: no acute distress HEENT: normocephalic, status post trach Respiratory/Chest: chest wall non-tender, lungs clear Cardiovascular: normal peripheral pulses, normal rate Abdomen: normal bowel sounds Laboratory Tests 06/22/19 03:35: White Blood Count 7.2, Red Blood Count 3.42L, Hemoglobin 10.6L, Hematocrit 31.4L , Mean Corpuscular Volume 92, Mean Corpuscular Hemoglobin 31.1H, Mean Corpuscular Hemoglobin Concent 33.9, Red Cell Distribution Width 15.1H, Platelet Count 88L, Mean Platelet Volume 6.5, Neutrophils (%) (Auto) , Lymphocytes (%) (Auto) , Monocytes (%) (Auto) , Eosinophils (%) (Auto) , Basophils (%) (Auto) , Differential Total Cells Counted 100, Neutrophils % ( Manual) 96H, Lymphocytes % (Manual) 3L, Monocytes % (Manual) 1, Eosinophils % ( Manual) 0, Basophils % (Manual) 0, Band Neutrophils 0, Platelet Estimate DecreasedL, Platelet Morphology Normal, Hypochromasia 1+, Anisocytosis 1+, Sodium Level 149H, Potassium Level 3.6, Chloride Level 112H, Carbon Dioxide Level 29, Anion Gap 8, Blood Urea Nitrogen 96H, Creatinine 3.7H, Estimat Glomerular Filtration Rate , Glucose Level 128H, Calcium Level 7.6L, Phosphorus Level 3.3, Magnesium Level 2.3, Iron Level 48L, Total Iron Binding Capacity 165L , Percent Iron Saturation 29, Unsaturated Iron Binding 117, Ferritin 1489H, Total Bilirubin 0.4, Aspartate Amino Transf (AST/SGOT) 106H, Alanine Aminotransferase (ALT/SGPT) 133H, Alkaline Phosphatase 120H, Total Protein 5.0L , Albumin 1.6L, Globulin 3.4, Albumin/Globulin Ratio 0.5L, Vitamin B12 Level 1152H, Folate 8.8, Random Vancomycin Level 5.2 Current Medications Medications (Trade) Dose Ordered Sig/Phillip Route PRN Reason Start Time Stop Time Status Last Admin Dose Admin Acetaminophen (Tylenol) 500 mg Q4H PRN GT Mild Pain/Temp > 100.5 06/17/19 19:43 07/17/19 19:42 Amiodarone HCl (Cordarone) 200 mg DAILY GT 06/18/19 09:00 07/07/19 16:14 06/22/19 08:52 Chlorhexidine Gluconate (Reina-Hex 2%) 1 applic DAILY@1999 TOPIC 06/17/19 20:00 06/26/19 19:59 06/21/19 20:33 Clonidine HCl (Catapres Tab) 0.1 mg Q4H PRN GT For High Blood Pressure 06/17/19 19:44 07/17/19 19:43 Daptomycin 500 mg/ Sodium Chloride 55 ml @ 100 mls/hr Q48H IV 06/18/19 13:00 06/23/19 23:59 06/20/19 13:35 Hydralazine HCl (Apresoline) 25 mg Q6HR GT 06/22/19 12:00 07/18/19 11:59 Lansoprazole (Prevacid) 30 mg BID GT 06/18/19 09:00 07/06/19 17:59 06/22/19 08:52 Metoprolol Tartrate (Lopressor) 5 mg Q5MIN X 3 IVP 06/17/19 19:45 07/07/19 16:14 Prednisone (predniSONE) 10 mg DAILY GT 06/23/19 09:00 07/21/19 08:59 Vitamin D (Vitamin D) 2,000 intlu DAILY GT 06/23/19 09:00 07/07/19 12:59 Arsen Whittaker MD Jun 22, 2019 12:11
[2019-06-22] MEDS: DAPTOmycin 500 MG in NS 55 ML IV SCH (12:58)
[2019-06-22] MEDS: HydrALAZINE 25mg tab GT SCH ×3 (13:00→23:31)
[2019-06-22] MEDS ORDERED: NS 275ml ONE (13:25)
[2019-06-22 16:00] VITALS: BP 151/88
[2019-06-22] MEDS: Dyna-Hex 2% Top Sol 2oz TOPIC SCH (19:56)
[2019-06-22 20:00] VITALS: BP 154/82
--- NOTE | 2019-06-22 22:17 | General Progress Note ---
Assessment/Plan Problem List: (1) SOB (shortness of breath) ICD Codes: R06.02 - Shortness of breath SNOMED: 300690029 (2) Cellulitis ICD Codes: L03.90 - Cellulitis, unspecified SNOMED: 662364722 (3) Cellulitis of upper extremity ICD Codes: L03.119 - Cellulitis of unspecified part of limb SNOMED: 968739609 Qualifiers: Qualified Codes: L03.113 - Cellulitis of right upper limb (4) Renal insufficiency ICD Codes: N28.9 - Disorder of kidney and ureter, unspecified SNOMED: 841612270, 030844431 (5) Renal failure (ARF), acute on chronic ICD Codes: N17.9 - Acute kidney failure, unspecified; N18.9 - Chronic kidney disease, unspecified SNOMED: 263139903 (6) Anemia ICD Codes: D64.9 - Anemia, unspecified SNOMED: 596061521 (7) Hypothyroidism ICD Codes: E03.9 - Hypothyroidism, unspecified SNOMED: 44629029 (8) UTI (urinary tract infection) ICD Codes: N39.0 - Urinary tract infection, site not specified SNOMED: 11916941 Status: stable, progressing Assessment/Plan: no fever on vent le fracture jessi eval trach chf pna sepsis edema will transfer to jessi Subjective ROS Limited/Unobtainable: Yes Allergies: Coded Allergies: No Known Allergies (Unverified , 05/18/19) Objective Last 24 Hour Vital Signs Date Time Temp Pulse Resp B/P (MAP) Pulse Ox O2 Delivery O2 Flow Rate FiO2 06/22/19 20:00 97.7 90 19 154/82 (106) 98 06/22/19 20:00 T-piece 10.0 06/22/19 20:00 10.0 35 06/22/19 19:11 94 20 99 T-Piece 10.0 35 06/22/19 19:11 99 T-Piece 10.0 35 06/22/19 18:48 168/74 06/22/19 16:00 10.0 35 06/22/19 16:00 97.9 97 18 151/88 (109) 99 06/22/19 16:00 T-piece 10.0 06/22/19 15:14 88 06/22/19 14:15 78 20 99 Trach Collar 10.0 35 06/22/19 13:00 153/84 06/22/19 12:30 76 20 06/22/19 12:00 91 06/22/19 12:00 Mechanical Ventilator 06/22/19 12:00 97.5 93 20 153/84 (107) 97 06/22/19 12:00 35 06/22/19 08:33 98 06/22/19 08:33 74 20 35 06/22/19 08:00 97.3 85 19 143/75 (97) 99 06/22/19 08:00 35 06/22/19 08:00 Mechanical Ventilator 06/22/19 07:48 89 06/22/19 06:55 70 16 35 06/22/19 05:12 151/82 06/22/19 04:42 85 22 35 06/22/19 04:00 35 06/22/19 04:00 90 06/22/19 04:00 Mechanical Ventilator 35.0 06/22/19 04:00 97.7 81 20 150/68 (95) 100 06/22/19 02:38 94 26 35 06/22/19 00:50 70 16 35 06/22/19 00:13 147/74 06/22/19 00:00 80 06/22/19 00:00 Mechanical Ventilator 35.0 06/22/19 00:00 98.5 87 18 153/76 (101) 99 06/22/19 00:00 35 06/21/19 22:48 73 16 35 Intake and Output 06/21/19 06/22/19 19:00 07:00 Intake Total 720 ml 780 ml Output Total 700 ml 400 ml Balance 20 ml 380 ml Free Water 200 ml 200 ml Tube Feeding 400 ml 480 ml Other 120 ml 100 ml Output Urine Total 600 ml 300 ml Stool Total 100 ml 100 ml Laboratory Tests 06/22/19 03:35: White Blood Count 7.2, Red Blood Count 3.42L, Hemoglobin 10.6L, Hematocrit 31.4L , Mean Corpuscular Volume 92, Mean Corpuscular Hemoglobin 31.1H, Mean Corpuscular Hemoglobin Concent 33.9, Red Cell Distribution Width 15.1H, Platelet Count 88L, Mean Platelet Volume 6.5, Neutrophils (%) (Auto) , Lymphocytes (%) (Auto) , Monocytes (%) (Auto) , Eosinophils (%) (Auto) , Basophils (%) (Auto) , Differential Total Cells Counted 100, Neutrophils % ( Manual) 96H, Lymphocytes % (Manual) 3L, Monocytes % (Manual) 1, Eosinophils % ( Manual) 0, Basophils % (Manual) 0, Band Neutrophils 0, Platelet Estimate DecreasedL, Platelet Morphology Normal, Hypochromasia 1+, Anisocytosis 1+, Sodium Level 149H, Potassium Level 3.6, Chloride Level 112H, Carbon Dioxide Level 29, Anion Gap 8, Blood Urea Nitrogen 96H, Creatinine 3.7H, Estimat Glomerular Filtration Rate , Glucose Level 128H, Calcium Level 7.6L, Phosphorus Level 3.3, Magnesium Level 2.3, Iron Level 48L, Total Iron Binding Capacity 165L , Percent Iron Saturation 29, Unsaturated Iron Binding 117, Ferritin 1489H, Total Bilirubin 0.4, Aspartate Amino Transf (AST/SGOT) 106H, Alanine Aminotransferase (ALT/SGPT) 133H, Alkaline Phosphatase 120H, Total Protein 5.0L , Albumin 1.6L, Globulin 3.4, Albumin/Globulin Ratio 0.5L, Vitamin B12 Level 1152H, Folate 8.8, Random Vancomycin Level 5.2 Height (Feet): 5 Height (Inches): 7.00 Weight (Pounds): 178 Neck: supple Cardiovascular: normal rate Respiratory/Chest: lungs clear Abdomen: soft Joslyn Wiggins MD Jun 22, 2019 22:17
[2019-06-23] VITALS: BP 158/78
[2019-06-23 04:00] VITALS: BP 155/83
[2019-06-23 05:50] LABS: HEMATOCRIT 33.2 % (42.0-52.0); HEMOGLOBIN 11.3 G/DL (14.2-18.0); MEAN CORPUSCULAR VOLUME 91 FL (80-99); PLATELET COUNT 90 K/UL (150-450); RED BLOOD COUNT 3.64 M/UL (4.70-6.10); RED CELL DISTRIBUTION WIDTH 14.6 % (11.6-14.8)
[2019-06-23 06:04] LABS: INR 1.1 (0.9-1.1)
[2019-06-23 06:21] LABS: ALANINE AMINOTRANSFERASE 187 U/L (12-78); ALBUMIN 1.6 G/DL (3.4-5.0); ALBUMIN/GLOBULIN RATIO 0.4 (1.0-2.7); ALKALINE PHOSPHATASE 158 U/L (46-116); ANION GAP 8 mmol/L (5-15); ASPARTATE AMINO TRANSFERASE 119 U/L (15-37); BILIRUBIN,TOTAL 0.3 MG/DL (0.2-1.0); BLOOD UREA NITROGEN 95 mg/dL (7-18); CALCIUM 7.6 MG/DL (8.5-10.1); CARBON DIOXIDE 28 MMOL/L (21-32); CHLORIDE 113 MMOL/L (98-107); CREATININE 3.4 MG/DL (0.55-1.30); POTASSIUM 3.1 MMOL/L (3.5-5.1); SODIUM 149 MMOL/L (136-145)
[2019-06-23] MEDS: HydrALAZINE 25mg tab GT SCH ×3 (06:21→18:43)
[2019-06-23 06:23] LABS: PHOSPHORUS 3.5 MG/DL (2.5-4.9)
--- NOTE | 2019-06-23 07:40 | General Progress Note ---
Assessment/Plan Problem List: (1) Dysphagia ICD Codes: R13.10 - Dysphagia, unspecified SNOMED: 52969025, 867039086 (2) Anemia ICD Codes: D64.9 - Anemia, unspecified SNOMED: 226386559 (3) Hypothyroidism ICD Codes: E03.9 - Hypothyroidism, unspecified SNOMED: 99526127 (4) Thrombus ICD Codes: I82.90 - Acute embolism and thrombosis of unspecified vein SNOMED: 23160803, 78464614, 301863675, 993107999 (5) A-fib ICD Codes: I48.91 - Unspecified atrial fibrillation SNOMED: 84364953 Status: stable, progressing Assessment/Plan: Assessment/Plan Problems: (1) Anemia ICD Codes: D64.9 - Anemia, unspecified SNOMED: 145079926 (2) Dysphagia ICD Codes: R13.10 - Dysphagia, unspecified SNOMED: 76473687, 803788961 Status: stable s/p PEG 06/13/19 GTF GT site care prn transfusions ppi fu pulm fu labs abx per ID on HD Subjective ROS Limited/Unobtainable: No Allergies: Coded Allergies: No Known Allergies (Unverified , 05/18/19) Subjective coded today Objective Last 24 Hour Vital Signs Date Time Temp Pulse Resp B/P (MAP) Pulse Ox O2 Delivery O2 Flow Rate FiO2 06/23/19 06:21 123/74 06/23/19 05:21 119 24 35 06/23/19 04:13 115 29 35 06/23/19 04:00 107 06/23/19 04:00 Mechanical Ventilator 06/23/19 04:00 98.2 100 21 155/83 (107) 99 06/23/19 04:00 35 06/23/19 01:23 98 T-Piece 10.0 35 06/23/19 00:00 T-piece 10.0 06/23/19 00:00 98.0 92 21 158/78 (104) 98 06/23/19 00:00 10.0 35 06/23/19 00:00 90 06/22/19 23:31 162/70 06/22/19 20:00 97.7 90 19 154/82 (106) 98 06/22/19 20:00 93 06/22/19 20:00 T-piece 10.0 06/22/19 20:00 10.0 35 06/22/19 19:11 94 20 99 T-Piece 10.0 35 06/22/19 19:11 99 T-Piece 10.0 35 06/22/19 18:48 168/74 06/22/19 16:00 10.0 35 06/22/19 16:00 97.9 97 18 151/88 (109) 99 06/22/19 16:00 T-piece 10.0 06/22/19 15:14 88 06/22/19 14:15 78 20 99 Trach Collar 10.0 35 06/22/19 13:00 153/84 06/22/19 12:30 76 20 06/22/19 12:00 91 06/22/19 12:00 Mechanical Ventilator 06/22/19 12:00 97.5 93 20 153/84 (107) 97 06/22/19 12:00 35 06/22/19 08:33 98 06/22/19 08:33 74 20 35 06/22/19 08:00 97.3 85 19 143/75 (97) 99 06/22/19 08:00 35 06/22/19 08:00 Mechanical Ventilator 06/22/19 07:48 89 Intake and Output 06/22/19 06/23/19 19:00 07:00 Intake Total 835 ml 700 ml Output Total 825 ml 1100 ml Balance 10 ml -400 ml Free Water 300 ml IV Total 55 ml Tube Feeding 520 ml 400 ml Other 260 ml Output Urine Total 625 ml 600 ml Stool Total 200 ml 500 ml Laboratory Tests 06/23/19 04:55: White Blood Count 7.0, Red Blood Count 3.64L, Hemoglobin 11.3L, Hematocrit 33.2L , Mean Corpuscular Volume 91, Mean Corpuscular Hemoglobin 31.0, Mean Corpuscular Hemoglobin Concent 34.0, Red Cell Distribution Width 14.6, Platelet Count 90L, Mean Platelet Volume 6.9, Neutrophils (%) (Auto) , Lymphocytes (%) ( Auto) , Monocytes (%) (Auto) , Eosinophils (%) (Auto) , Basophils (%) (Auto) , Prothrombin Time 11.9H, Prothromb Time International Ratio 1.1, Activated Partial Thromboplast Time 25, Sodium Level 149H, Potassium Level 3.1L, Chloride Level 113H, Carbon Dioxide Level 28, Anion Gap 8, Blood Urea Nitrogen 95H, Creatinine 3.4H, Estimat Glomerular Filtration Rate , Glucose Level 133H, Calcium Level 7.6L, Phosphorus Level 3.5, Total Bilirubin 0.3, Aspartate Amino Transf (AST/SGOT) 119H, Alanine Aminotransferase (ALT/SGPT) 187H, Alkaline Phosphatase 158H, Total Protein 5.2L, Albumin 1.6L, Globulin 3.6, Albumin/ Globulin Ratio 0.4L, Random Vancomycin Level [Pending] Height (Feet): 5 Height (Inches): 7.00 Weight (Pounds): 179 General Appearance: lethargic EENT: normal ENT inspection Neck: supple Cardiovascular: normal rate Respiratory/Chest: decreased breath sounds Abdomen: normal bowel sounds, non tender, soft Extremities: non-tender Valentino Lino MD Jun 23, 2019 07:40
[2019-06-23 08:00] VITALS: BP 117/63
--- NOTE | 2019-06-23 08:37 | Hematology/Onc Progress Note ---
Assessment/Plan Assessment/Plan # Anemia of chronic disease due to underlying chronic medical issues, multifactorial v Gi bleed --> Anemia workup has been reviewed, ferritin >1k --> No evidence of hemolysis is noted, peripheral smear has been reviewed. --> Hgb goal >7. Transfuse prn. --> Epogen or iron at this time is not particularly indicated --> Medications have been reviewed --> low threshold for gi evaluation in case has occult + --> hgb trend: 9.3-->9.7-->8.1-->7.6-->8-->9.4-->9.2->7.5-->9.3-->8-->8.1-->8.6- ->7.8-->8.3-->7.6-->8.2-->8.6-->10.4-->10.6-->11.3 --> transf 05/28/19 with 1 unit prbc, 1 unit on 06/03, again on 06/18 --> transfusion is a emergency, no family, no poa, is okay to transfuse # Right upper arm extremity axillary vein dvt --> agree to continue eliquis --> continue for total of minimum of 3 months --> rescan arm in 3 mo # Thrombocytopenia is due to infection, i.e. cellulitis of upper extremity, likely picc line infection --> as per id on ax --> picc off --> levoflox/vanc-->zosyn/vanc--> zosyn-->dapto/zosyn --> plt trend 208-->132-->146k-->159-->217-->211-->145-->117-->145-->111-->88--> 90 # Respiratory failure s/p vent --> has been failing weaning --> trach 06/16 # KIMO on CKD --> per Dr. Mera --> HD as needed # Pneumonia --> abx per id # Dehydration. --> goal of euvolemia # Paroxysmal Atrial fibrillation with rapid ventricular response was on amiodarone gtt, now in sinus rhythm. --> per cards On PO amiodarone 200 bid, Lopressor 25 bid # Dysphagia with ng tube --> s/p peg 06/13 # Septic shock --> has required icu admission, and pressor # Dvt ppx eliquis--> continued The timing of this note does not necessarily reflect the time of the patient was seen. Greatly appreciate consultation. Subjective Constitutional: Denies: no symptoms, chills, fever, malaise, weakness, other Cardiovascular: Denies: no symptoms, chest pain, edema, irregular heart rate, lightheadedness, palpitations, syncope, other Respiratory: Denies: no symptoms, cough, shortness of breath, SOB with excertion, SOB at rest, sputum, wheezing, other Neurologic/Psychiatric: Denies: no symptoms, anxiety, depressed, emotional problems, headache, numbness, paresthesia, pre-existing deficit, seizure, tingling, tremors, weakness, other Endocrine: Denies: no symptoms, excessive sweating, flushing, intolerance to cold, intolerance to heat, increased hunger, increased thirst, increased urine, unexplained weight gain, unexplained weight loss, other Allergies: Coded Allergies: No Known Allergies (Unverified , 05/18/19) Subjective 05/24: awake and alert, v mask, labs reviewed, apixaban 05/25: as per gi, ngt and eliquis tolerated 05/26: pending clearance but still with ng and nonrebreather 05/27: hypoxic yesterday, deteriorated, coded, now intubated, icu, labs noted 05/28: icu, levophed gtt, hgb 7.6, repeat cbc 05/29: remains in the icu, given prbc last night, no bleeding 05/30: no events, no bleeding, ++ fredo and on pressor 05/31: intubated, bp better on pressor, no bleeding, coag ordered 06/02: reamins ill appearing, on vent, labs noted, on vent, poorly responsive 06/03: no events, no bleeding, labs noted, dw surgery, and Rn, monitoring plt 06/04: tolerating tube feeds, labs noted, in the icu 06/05: restraints, cxr unchanged, anticoagulants on hold until further notice 06/06: no events, no bleeding, no night sweats, no bleeding 1/12: icu, unable to wean per resp, apixaban restarted, labs reviewed 06/09: minimally responsive, on vent and gt feeds, no bleeding 06/10: no acute events, failed to wean, hd for today, h/h stable 06/11: remains altered, may need trach, coags ordered, no bleeding currently 06/12: no events, no bleeding, trach pending, no major changes 06/13: icu, weaning failed, egd pending, hgb 7.6, repeat cbc 06/15: no events, no bleeding, is more responsive, labs reviewed, no changes, on pressor 06/16: remains on vent, no bleeding, on pressors, labs noted 06/17: now is s/p trach as well, on vent, labs reviewed, jeison Huang 06/18: no new events, transferred out of the icu, s/p peg and trach 06/19: s/p prbc, hgb improved to 10.4, seen by rt, no resp distress 06/20: remains confused, getting amio per cards, hgb better, psych recs noted 06/22: sdu, no acute events, ferritin >1k, hep panel negative 06/23: no major changes, labs are reviewed, jeison Franco, hgb stable Objective Objective Current Medications Medications (Trade) Dose Ordered Sig/Phillip Route PRN Reason Start Time Stop Time Status Last Admin Dose Admin Acetaminophen (Tylenol) 500 mg Q4H PRN GT Mild Pain/Temp > 100.5 06/17/19 19:43 07/17/19 19:42 Amiodarone HCl (Cordarone) 200 mg DAILY GT 06/18/19 09:00 07/07/19 16:14 06/22/19 08:52 Chlorhexidine Gluconate (Reina-Hex 2%) 1 applic DAILY@1999 TOPIC 06/17/19 20:00 06/26/19 19:59 06/22/19 19:56 Clonidine HCl (Catapres Tab) 0.1 mg Q4H PRN GT For High Blood Pressure 06/17/19 19:44 07/17/19 19:43 Daptomycin 500 mg/ Sodium Chloride 55 ml @ 100 mls/hr Q48H IV 06/18/19 13:00 06/23/19 23:59 06/22/19 12:58 Hydralazine HCl (Apresoline) 25 mg Q6HR GT 06/22/19 12:00 07/18/19 11:59 06/23/19 06:21 Lansoprazole (Prevacid) 30 mg BID GT 06/18/19 09:00 07/06/19 17:59 06/22/19 18:44 Metoprolol Tartrate (Lopressor) 5 mg Q5MIN X 3 IVP 06/17/19 19:45 07/07/19 16:14 Prednisone (predniSONE) 10 mg DAILY GT 06/23/19 09:00 07/21/19 08:59 Vitamin D (Vitamin D) 2,000 intlu DAILY GT 06/23/19 09:00 07/07/19 12:59 Last 24 Hour Vital Signs Date Time Temp Pulse Resp B/P (MAP) Pulse Ox O2 Delivery O2 Flow Rate FiO2 06/23/19 06:21 123/74 06/23/19 05:21 119 24 35 06/23/19 04:13 115 29 35 06/23/19 04:00 107 06/23/19 04:00 Mechanical Ventilator 06/23/19 04:00 98.2 100 21 155/83 (107) 99 06/23/19 04:00 35 06/23/19 01:23 98 T-Piece 10.0 35 06/23/19 00:00 T-piece 10.0 06/23/19 00:00 98.0 92 21 158/78 (104) 98 06/23/19 00:00 10.0 35 06/23/19 00:00 90 06/22/19 23:31 162/70 06/22/19 20:00 97.7 90 19 154/82 (106) 98 06/22/19 20:00 93 06/22/19 20:00 T-piece 10.0 06/22/19 20:00 10.0 35 06/22/19 19:11 94 20 99 T-Piece 10.0 35 06/22/19 19:11 99 T-Piece 10.0 35 06/22/19 18:48 168/74 06/22/19 16:00 10.0 35 06/22/19 16:00 97.9 97 18 151/88 (109) 99 06/22/19 16:00 T-piece 10.0 06/22/19 15:14 88 06/22/19 14:15 78 20 99 Trach Collar 10.0 35 06/22/19 13:00 153/84 06/22/19 12:30 76 20 06/22/19 12:00 91 06/22/19 12:00 Mechanical Ventilator 06/22/19 12:00 97.5 93 20 153/84 (107) 97 06/22/19 12:00 35 06/22/19 08:33 98 06/22/19 08:33 74 20 35 06/22/19 08:00 97.3 85 19 143/75 (97) 99 06/22/19 08:00 35 06/22/19 08:00 Mechanical Ventilator 06/22/19 07:48 89 06/22/19 06:55 70 16 35 06/22/19 05:12 151/82 06/22/19 04:42 85 22 35 06/22/19 04:00 35 06/22/19 04:00 90 06/22/19 04:00 Mechanical Ventilator 35.0 06/22/19 04:00 97.7 81 20 150/68 (95) 100 06/22/19 02:38 94 26 35 06/22/19 00:50 70 16 35 06/22/19 00:13 147/74 06/22/19 00:00 80 06/22/19 00:00 Mechanical Ventilator 35.0 06/22/19 00:00 98.5 87 18 153/76 (101) 99 06/22/19 00:00 35 06/21/19 22:48 73 16 35 06/21/19 20:45 82 20 35 06/21/19 20:11 92 23 35 06/21/19 20:00 98.3 91 18 150/73 (98) 100 06/21/19 20:00 Mechanical Ventilator 35.0 06/21/19 20:00 91 06/21/19 20:00 35 06/21/19 18:02 159/81 06/21/19 17:42 102 28 35 06/21/19 16:00 88 06/21/19 16:00 Mechanical Ventilator 35.0 06/21/19 16:00 98.8 98 14 159/81 (107) 100 06/21/19 16:00 35 06/21/19 15:20 91 22 35 06/21/19 13:11 148/80 1/25/20 12:54 98 22 35 06/21/19 12:00 84 06/21/19 12:00 35 06/21/19 12:00 98.0 86 20 140/80 (100) 100 06/21/19 12:00 Mechanical Ventilator 35.0 06/21/19 10:35 98 06/21/19 10:35 99 18 35 35 06/21/19 09:45 Mechanical Ventilator 35.0 06/21/19 09:29 83 18 35 Intake and Output 06/22/19 06/23/19 19:00 07:00 Intake Total 835 ml 700 ml Output Total 825 ml 1100 ml Balance 10 ml -400 ml Free Water 300 ml IV Total 55 ml Tube Feeding 520 ml 400 ml Other 260 ml Output Urine Total 625 ml 600 ml Stool Total 200 ml 500 ml Labs Test 06/20/19 14:15 06/22/19 03:35 06/23/19 04:55 Sodium Level 150 MMOL/L (136-145) 149 MMOL/L (136-145) 149 MMOL/L (136-145) Potassium Level 3.7 MMOL/L (3.5-5.1) 3.6 MMOL/L (3.5-5.1) 3.1 MMOL/L (3.5-5.1) Chloride Level 112 MMOL/L (98-107) 112 MMOL/L (98-107) 113 MMOL/L (98-107) Carbon Dioxide Level 28 MMOL/L (21-32) 29 MMOL/L (21-32) 28 MMOL/L (21-32) Anion Gap 10 mmol/L (5-15) 8 mmol/L (5-15) 8 mmol/L (5-15) Blood Urea Nitrogen 87 mg/dL (7-18) 96 mg/dL (7-18) 95 mg/dL (7-18) Creatinine 3.9 MG/DL (0.55-1.30) 3.7 MG/DL (0.55-1.30) 3.4 MG/DL (0.55-1.30) Estimat Glomerular Filtration Rate mL/min (>60) mL/min (>60) mL/min (>60) Glucose Level 185 MG/DL (74-106) 128 MG/DL (74-106) 133 MG/DL (74-106) Calcium Level 7.1 MG/DL (8.5-10.1) 7.6 MG/DL (8.5-10.1) 7.6 MG/DL (8.5-10.1) Phosphorus Level 3.3 MG/DL (2.5-4.9) 3.3 MG/DL (2.5-4.9) 3.5 MG/DL (2.5-4.9) Magnesium Level 2.1 MG/DL (1.8-2.4) 2.3 MG/DL (1.8-2.4) Total Bilirubin 0.3 MG/DL (0.2-1.0) 0.4 MG/DL (0.2-1.0) 0.3 MG/DL (0.2-1.0) Aspartate Amino Transf (AST/SGOT) 49 U/L (15-37) 106 U/L (15-37) 119 U/L (15-37) Alanine Aminotransferase (ALT/SGPT) 44 U/L (12-78) 133 U/L (12-78) 187 U/L (12-78) Alkaline Phosphatase 90 U/L (46-116) 120 U/L (46-116) 158 U/L (46-116) Total Protein 4.4 G/DL (6.4-8.2) 5.0 G/DL (6.4-8.2) 5.2 G/DL (6.4-8.2) Albumin 1.5 G/DL (3.4-5.0) 1.6 G/DL (3.4-5.0) 1.6 G/DL (3.4-5.0) Globulin 2.9 g/dL 3.4 g/dL 3.6 g/dL Albumin/Globulin Ratio 0.5 (1.0-2.7) 0.5 (1.0-2.7) 0.4 (1.0-2.7) White Blood Count 7.2 K/UL (4.8-10.8) 7.0 K/UL (4.8-10.8) Red Blood Count 3.42 M/UL (4.70-6.10) 3.64 M/UL (4.70-6.10) Hemoglobin 10.6 G/DL (14.2-18.0) 11.3 G/DL (14.2-18.0) Hematocrit 31.4 % (42.0-52.0) 33.2 % (42.0-52.0) Mean Corpuscular Volume 92 FL (80-99) 91 FL (80-99) Mean Corpuscular Hemoglobin 31.1 PG (27.0-31.0) 31.0 PG (27.0-31.0) Mean Corpuscular Hemoglobin Concent 33.9 G/DL (32.0-36.0) 34.0 G/DL (32.0-36.0) Red Cell Distribution Width 15.1 % (11.6-14.8) 14.6 % (11.6-14.8) Platelet Count 88 K/UL (150-450) 90 K/UL (150-450) Mean Platelet Volume 6.5 FL (6.5-10.1) 6.9 FL (6.5-10.1) Neutrophils (%) (Auto) % (45.0-75.0) % (45.0-75.0) Lymphocytes (%) (Auto) % (20.0-45.0) % (20.0-45.0) Monocytes (%) (Auto) % (1.0-10.0) % (1.0-10.0) Eosinophils (%) (Auto) % (0.0-3.0) % (0.0-3.0) Basophils (%) (Auto) % (0.0-2.0) % (0.0-2.0) Differential Total Cells Counted 100 Neutrophils % (Manual) 96 % (45-75) Lymphocytes % (Manual) 3 % (20-45) Monocytes % (Manual) 1 % (1-10) Eosinophils % (Manual) 0 % (0-3) Basophils % (Manual) 0 % (0-2) Band Neutrophils 0 % (0-8) Platelet Estimate Decreased Platelet Morphology Normal Hypochromasia 1+ Anisocytosis 1+ Iron Level 48 ug/dL (50-175) Total Iron Binding Capacity 165 ug/dL (250-450) Percent Iron Saturation 29 % (15-50) Unsaturated Iron Binding 117 ug/dL (112-346) Ferritin 1489 NG/ML (8-388) Vitamin B12 Level 1152 PG/ML (193-986) Folate 8.8 NG/ML (8.6-58.9) Random Vancomycin Level 5.2 ug/mL Prothrombin Time 11.9 SEC (9.30-11.50) Prothromb Time International Ratio 1.1 (0.9-1.1) Activated Partial Thromboplast Time 25 SEC (23-33) Height (Feet): 5 Height (Inches): 7.00 Weight (Pounds): 179 Objective PE: Vitals: reviewed General Appearance: NAD HEENT: normocephalic, atraumatic Neck: non-tender, normal alignment Respiratory/Chest: VENT++ ++ trach Cardiovascular/Chest: normal peripheral pulses, normal rate Abdomen: normal bowel sounds, soft, nontender ++ peg Extremities: normal range of motion ++ right arm swelling Suleman Addison MD Jun 23, 2019 08:37
[2019-06-23] MEDS: Vitamin D 1000 IU Tab GT SCH (09:33)
[2019-06-23] MEDS: Amiodarone 200mg tab GT SCH (09:34)
--- NOTE | 2019-06-23 10:15 | Pulmonology Progress Note ---
Assessment/Plan Assessment/Plan IMPRESSION AND PLAN: 1. S/p tracheostomy 2. Cellulitis. 3. History of COPD. 4. Hypertension. 5. Afib with RVR; rate controlled 6. Respiratory failure; 7. REnal failure DISCUSSION: 1. S/p trach; 2. Continue present management and care. 3. Continue medications and HHN with atrovent only 4. DC planning 5. Wean and attempt trach collar again Arsen Whittaker M.D. Subjective Interval Events: Was on trach collar but became SOB; had a fib Constitutional: Reports: no symptoms HEENT: Repors: no symptoms Respiratory: Reports: no symptoms Cardiovascular: Reports: no symptoms Gastrointestinal/Abdominal: Reports: no symptoms Allergies: Coded Allergies: No Known Allergies (Unverified , 05/18/19) Objective Last 24 Hour Vital Signs Date Time Temp Pulse Resp B/P (MAP) Pulse Ox O2 Delivery O2 Flow Rate FiO2 06/23/19 08:00 97.9 94 21 117/63 (81) 99 06/23/19 06:21 123/74 06/23/19 05:21 119 24 35 06/23/19 04:13 115 29 35 06/23/19 04:00 107 06/23/19 04:00 Mechanical Ventilator 06/23/19 04:00 98.2 100 21 155/83 (107) 99 06/23/19 04:00 35 06/23/19 01:23 98 T-Piece 10.0 35 06/23/19 00:00 T-piece 10.0 06/23/19 00:00 98.0 92 21 158/78 (104) 98 06/23/19 00:00 10.0 35 06/23/19 00:00 90 06/22/19 23:31 162/70 06/22/19 20:00 97.7 90 19 154/82 (106) 98 06/22/19 20:00 93 06/22/19 20:00 T-piece 10.0 06/22/19 20:00 10.0 35 06/22/19 19:11 94 20 99 T-Piece 10.0 35 06/22/19 19:11 99 T-Piece 10.0 35 06/22/19 18:48 168/74 06/22/19 16:00 10.0 35 06/22/19 16:00 97.9 97 18 151/88 (109) 99 06/22/19 16:00 T-piece 10.0 06/22/19 15:14 88 06/22/19 14:15 78 20 99 Trach Collar 10.0 35 06/22/19 13:00 153/84 06/22/19 12:30 76 20 06/22/19 12:00 91 06/22/19 12:00 Mechanical Ventilator 06/22/19 12:00 97.5 93 20 153/84 (107) 97 06/22/19 12:00 35 Intake and Output 06/22/19 06/23/19 18:59 06:59 Intake Total 735 ml 840 ml Output Total 1925 ml Balance 735 ml -1085 ml Free Water 300 ml IV Total 55 ml Tube Feeding 480 ml 480 ml Other 200 ml 60 ml Output Urine Total 1225 ml Stool Total 700 ml General Appearance: no acute distress HEENT: normocephalic Respiratory/Chest: chest wall non-tender, lungs clear Cardiovascular: normal peripheral pulses, normal rate Abdomen: normal bowel sounds Laboratory Tests 06/23/19 04:55: White Blood Count 7.0, Red Blood Count 3.64L, Hemoglobin 11.3L, Hematocrit 33.2L , Mean Corpuscular Volume 91, Mean Corpuscular Hemoglobin 31.0, Mean Corpuscular Hemoglobin Concent 34.0, Red Cell Distribution Width 14.6, Platelet Count 90L, Mean Platelet Volume 6.9, Neutrophils (%) (Auto) , Lymphocytes (%) ( Auto) , Monocytes (%) (Auto) , Eosinophils (%) (Auto) , Basophils (%) (Auto) , Prothrombin Time 11.9H, Prothromb Time International Ratio 1.1, Activated Partial Thromboplast Time 25, Sodium Level 149H, Potassium Level 3.1L, Chloride Level 113H, Carbon Dioxide Level 28, Anion Gap 8, Blood Urea Nitrogen 95H, Creatinine 3.4H, Estimat Glomerular Filtration Rate , Glucose Level 133H, Calcium Level 7.6L, Phosphorus Level 3.5, Total Bilirubin 0.3, Aspartate Amino Transf (AST/SGOT) 119H, Alanine Aminotransferase (ALT/SGPT) 187H, Alkaline Phosphatase 158H, Total Protein 5.2L, Albumin 1.6L, Globulin 3.6, Albumin/ Globulin Ratio 0.4L, Random Vancomycin Level [Pending] Current Medications Medications (Trade) Dose Ordered Sig/Phillip Route PRN Reason Start Time Stop Time Status Last Admin Dose Admin Acetaminophen (Tylenol) 500 mg Q4H PRN GT Mild Pain/Temp > 100.5 06/17/19 19:43 07/17/19 19:42 Amiodarone HCl (Cordarone) 200 mg DAILY GT 06/18/19 09:00 07/07/19 16:14 06/23/19 09:34 Chlorhexidine Gluconate (Reina-Hex 2%) 1 applic DAILY@2000 TOPIC 06/17/19 20:00 06/26/19 19:59 06/22/19 19:56 Clonidine HCl (Catapres Tab) 0.1 mg Q4H PRN GT For High Blood Pressure 06/17/19 19:44 07/17/19 19:43 Daptomycin 500 mg/ Sodium Chloride 55 ml @ 100 mls/hr Q48H IV 06/18/19 13:00 06/23/19 23:59 06/22/19 12:58 Hydralazine HCl (Apresoline) 25 mg Q6HR GT 06/22/19 12:00 07/18/19 11:59 06/23/19 06:21 Lansoprazole (Prevacid) 30 mg BID GT 06/18/19 09:00 07/06/19 17:59 06/23/19 09:34 Metoprolol Tartrate (Lopressor) 5 mg Q5MIN X 3 IVP 06/17/19 19:45 07/07/19 16:14 Prednisone (predniSONE) 10 mg DAILY GT 06/23/19 09:00 07/21/19 08:59 06/23/19 09:36 Vitamin D (Vitamin D) 2,000 intlu DAILY GT 06/23/19 09:00 07/07/19 12:59 06/23/19 09:33 Arsen Whittaker MD Jun 23, 2019 10:15
[2019-06-23 11:37] VITALS: BP 129/76
--- NOTE | 2019-06-23 11:40 | GI Progress Note ---
Assessment/Plan Problems: (1) Anemia ICD Codes: D64.9 - Anemia, unspecified SNOMED: 064366506 (2) Dysphagia ICD Codes: R13.10 - Dysphagia, unspecified SNOMED: 38263997, 156042501 Status: unchanged Status Narrative Discussed with Dr. Lino. Assessment/Plan s/p PEG 06/13/19 GTF GT site care prn transfusions ppi fu pulm fu labs abx per ID on HD The patient was seen and examined at bedside and all new and available data was reviewed in the patients chart. I agree with the above findings, impression and plan. (Patient seen earlier today. Signature stamp does not reflect patient encounter time.). - Valentino Lino MD Subjective Subjective limited Objective Last 24 Hour Vital Signs Date Time Temp Pulse Resp B/P (MAP) Pulse Ox O2 Delivery O2 Flow Rate FiO2 06/23/19 11:37 98.2 90 21 129/76 (93) 94 06/23/19 10:10 10.0 35 06/23/19 09:15 92 20 35 06/23/19 08:00 35 06/23/19 08:00 Mechanical Ventilator 06/23/19 08:00 97.9 94 21 117/63 (81) 99 06/23/19 08:00 85 06/23/19 07:07 103 22 35 06/23/19 07:07 100 Mechanical Ventilator 35 06/23/19 07:07 92 20 100 Mechanical Ventilator 35 06/23/19 06:21 123/74 06/23/19 05:21 119 24 35 06/23/19 04:13 115 29 35 06/23/19 04:00 107 06/23/19 04:00 Mechanical Ventilator 06/23/19 04:00 98.2 100 21 155/83 (107) 99 06/23/19 04:00 35 06/23/19 01:23 98 T-Piece 10.0 35 06/23/19 00:00 T-piece 10.0 06/23/19 00:00 98.0 92 21 158/78 (104) 98 06/23/19 00:00 10.0 35 06/23/19 00:00 90 06/22/19 23:31 162/70 06/22/19 20:00 97.7 90 19 154/82 (106) 98 06/22/19 20:00 93 06/22/19 20:00 T-piece 10.0 06/22/19 20:00 10.0 35 06/22/19 19:11 94 20 99 T-Piece 10.0 35 06/22/19 19:11 99 T-Piece 10.0 35 06/22/19 18:48 168/74 06/22/19 16:00 10.0 35 06/22/19 16:00 97.9 97 18 151/88 (109) 99 06/22/19 16:00 T-piece 10.0 06/22/19 15:14 88 06/22/19 14:15 78 20 99 Trach Collar 10.0 35 06/22/19 13:00 153/84 06/22/19 12:30 76 20 06/22/19 12:00 91 06/22/19 12:00 Mechanical Ventilator 06/22/19 12:00 97.5 93 20 153/84 (107) 97 06/22/19 12:00 35 Intake and Output 06/22/19 06/23/19 19:00 07:00 Intake Total 835 ml 700 ml Output Total 825 ml 1100 ml Balance 10 ml -400 ml Free Water 300 ml IV Total 55 ml Tube Feeding 520 ml 400 ml Other 260 ml Output Urine Total 625 ml 600 ml Stool Total 200 ml 500 ml Laboratory Tests Test 06/23/19 04:55 White Blood Count 7.0 K/UL (4.8-10.8) Red Blood Count 3.64 M/UL (4.70-6.10) L Hemoglobin 11.3 G/DL (14.2-18.0) L Hematocrit 33.2 % (42.0-52.0) L Mean Corpuscular Volume 91 FL (80-99) Mean Corpuscular Hemoglobin 31.0 PG (27.0-31.0) Mean Corpuscular Hemoglobin Concent 34.0 G/DL (32.0-36.0) Red Cell Distribution Width 14.6 % (11.6-14.8) Platelet Count 90 K/UL (150-450) L Mean Platelet Volume 6.9 FL (6.5-10.1) Neutrophils (%) (Auto) % (45.0-75.0) Lymphocytes (%) (Auto) % (20.0-45.0) Monocytes (%) (Auto) % (1.0-10.0) Eosinophils (%) (Auto) % (0.0-3.0) Basophils (%) (Auto) % (0.0-2.0) Prothrombin Time 11.9 SEC (9.30-11.50) H Prothromb Time International Ratio 1.1 (0.9-1.1) Activated Partial Thromboplast Time 25 SEC (23-33) Sodium Level 149 MMOL/L (136-145) H Potassium Level 3.1 MMOL/L (3.5-5.1) L Chloride Level 113 MMOL/L (98-107) H Carbon Dioxide Level 28 MMOL/L (21-32) Anion Gap 8 mmol/L (5-15) Blood Urea Nitrogen 95 mg/dL (7-18) H Creatinine 3.4 MG/DL (0.55-1.30) H Estimat Glomerular Filtration Rate mL/min (>60) Glucose Level 133 MG/DL (74-106) H Calcium Level 7.6 MG/DL (8.5-10.1) L Phosphorus Level 3.5 MG/DL (2.5-4.9) Total Bilirubin 0.3 MG/DL (0.2-1.0) Aspartate Amino Transf (AST/SGOT) 119 U/L (15-37) H Alanine Aminotransferase (ALT/SGPT) 187 U/L (12-78) H Alkaline Phosphatase 158 U/L (46-116) H Total Protein 5.2 G/DL (6.4-8.2) L Albumin 1.6 G/DL (3.4-5.0) L Globulin 3.6 g/dL Albumin/Globulin Ratio 0.4 (1.0-2.7) L Random Vancomycin Level 5.7 ug/mL Height (Feet): 5 Height (Inches): 7.00 Weight (Pounds): 179 General Appearance: WD/WN, no apparent distress, alert Cardiovascular: normal rate Respiratory/Chest: normal breath sounds, no respiratory distress Abdominal Exam: normal bowel sounds, non tender, soft, GT site Extremities: non-tender Thais Aranda PRODUCT DEVELOPMENT TECHNICIAN Jun 23, 2019 11:40
--- NOTE | 2019-06-23 12:58 | Infectious Diseases Prog Note ---
Assessment/Plan Assessment/Plan 84 yo male with PMHx of HTN who was sent to the ED on 05/18/19 from his halfway for possible picc line infection. Swelling around PICC line Minimal to no erythema and no purulent drainage Not likely to be infected Blood Cx 05/18/19 - NGTD PICC Tip Cx 05/18/19 - NGTD PICC line removed 05/18/19 Leukocytosis, mild recurrent (on steroids)- resolved No fever OM - Let foot On Vancomycin at nursing End date early May PNA Acute respiratory failure s/p intubation 05/27, s/p trach 06/16/1906/10 CXR: Bilateral upper lobe interstitial opacities and volume loss are unchanged. Diffuse more acute appearing parenchymal disease throughout the left mid and lower lung are unchanged. CXR - Some LLL Atelectasis vs PNA, Nodules CT 05/20/19 - Bilateral upper lobe infiltrates worse on the right. Consider pneumonia. Bilateral pleural effusions moderate in size Sp Cx Marily HTN PLAN - Continue Daptomycin for OM until 06/23/19 Monitor weekly CPK - 06/10 SP Zosyn #15 - 05/28/19 SP Vancomycin per pharmacy - Stopped for increasing Cr - 05/27/19 SP Levofloxacin #5 - Monitor CBC and Temps -trach/ICU care -aspiration precautions -wound care per hospital protocol Thank you for this consult. [facility] will continue to follow the patient with you during this hospitalization. Subjective Allergies: Coded Allergies: No Known Allergies (Unverified , 05/18/19) Subjective afebrile no leukocytosis Objective Vital Signs Last 24 Hour Vital Signs Date Time Temp Pulse Resp B/P (MAP) Pulse Ox O2 Delivery O2 Flow Rate FiO2 06/23/19 12:03 Mechanical Ventilator 06/23/19 12:00 10.0 35 06/23/19 11:40 129/76 06/23/19 11:37 98.2 90 21 129/76 (93) 94 06/23/19 10:10 10.0 35 06/23/19 09:15 92 20 35 06/23/19 08:00 35 06/23/19 08:00 Mechanical Ventilator 06/23/19 08:00 97.9 94 21 117/63 (81) 99 06/23/19 08:00 85 06/23/19 07:07 103 22 35 06/23/19 07:07 100 Mechanical Ventilator 35 06/23/19 07:07 92 20 100 Mechanical Ventilator 35 06/23/19 06:21 123/74 06/23/19 05:21 119 24 35 06/23/19 04:13 115 29 35 06/23/19 04:00 107 06/23/19 04:00 Mechanical Ventilator 06/23/19 04:00 98.2 100 21 155/83 (107) 99 06/23/19 04:00 35 06/23/19 01:23 98 T-Piece 10.0 35 06/23/19 00:00 T-piece 10.0 06/23/19 00:00 98.0 92 21 158/78 (104) 98 06/23/19 00:00 10.0 35 06/23/19 00:00 90 06/22/19 23:31 162/70 06/22/19 20:00 97.7 90 19 154/82 (106) 98 06/22/19 20:00 93 06/22/19 20:00 T-piece 10.0 06/22/19 20:00 10.0 35 06/22/19 19:11 94 20 99 T-Piece 10.0 35 06/22/19 19:11 99 T-Piece 10.0 35 06/22/19 18:48 168/74 06/22/19 16:00 10.0 35 06/22/19 16:00 97.9 97 18 151/88 (109) 99 06/22/19 16:00 T-piece 10.0 06/22/19 15:14 88 06/22/19 14:15 78 20 99 Trach Collar 10.0 35 06/22/19 13:00 153/84 Height (Feet): 5 Height (Inches): 7.00 Weight (Pounds): 179 Objective General Appearance: no apparent distress, lethargic Cardiovascular: normal rate Respiratory/Chest: decreased breath sounds Abdomen: distended Laboratory Tests Test 06/23/19 04:55 White Blood Count 7.0 K/UL (4.8-10.8) Red Blood Count 3.64 M/UL (4.70-6.10) L Hemoglobin 11.3 G/DL (14.2-18.0) L Hematocrit 33.2 % (42.0-52.0) L Mean Corpuscular Volume 91 FL (80-99) Mean Corpuscular Hemoglobin 31.0 PG (27.0-31.0) Mean Corpuscular Hemoglobin Concent 34.0 G/DL (32.0-36.0) Red Cell Distribution Width 14.6 % (11.6-14.8) Platelet Count 90 K/UL (150-450) L Mean Platelet Volume 6.9 FL (6.5-10.1) Neutrophils (%) (Auto) % (45.0-75.0) Lymphocytes (%) (Auto) % (20.0-45.0) Monocytes (%) (Auto) % (1.0-10.0) Eosinophils (%) (Auto) % (0.0-3.0) Basophils (%) (Auto) % (0.0-2.0) Prothrombin Time 11.9 SEC (9.30-11.50) H Prothromb Time International Ratio 1.1 (0.9-1.1) Activated Partial Thromboplast Time 25 SEC (23-33) Sodium Level 149 MMOL/L (136-145) H Potassium Level 3.1 MMOL/L (3.5-5.1) L Chloride Level 113 MMOL/L (98-107) H Carbon Dioxide Level 28 MMOL/L (21-32) Anion Gap 8 mmol/L (5-15) Blood Urea Nitrogen 95 mg/dL (7-18) H Creatinine 3.4 MG/DL (0.55-1.30) H Estimat Glomerular Filtration Rate mL/min (>60) Glucose Level 133 MG/DL (74-106) H Calcium Level 7.6 MG/DL (8.5-10.1) L Phosphorus Level 3.5 MG/DL (2.5-4.9) Total Bilirubin 0.3 MG/DL (0.2-1.0) Aspartate Amino Transf (AST/SGOT) 119 U/L (15-37) H Alanine Aminotransferase (ALT/SGPT) 187 U/L (12-78) H Alkaline Phosphatase 158 U/L (46-116) H Total Protein 5.2 G/DL (6.4-8.2) L Albumin 1.6 G/DL (3.4-5.0) L Globulin 3.6 g/dL Albumin/Globulin Ratio 0.4 (1.0-2.7) L Random Vancomycin Level 5.7 ug/mL Current Medications Medications (Trade) Dose Ordered Sig/Phillip Route PRN Reason Start Time Stop Time Status Last Admin Dose Admin Acetaminophen (Tylenol) 500 mg Q4H PRN GT Mild Pain/Temp > 100.5 06/17/19 19:43 07/17/19 19:42 Amiodarone HCl (Cordarone) 200 mg DAILY GT 06/18/19 09:00 07/07/19 16:14 06/23/19 09:34 Chlorhexidine Gluconate (Reina-Hex 2%) 1 applic DAILY@2000 TOPIC 06/17/19 20:00 06/26/19 19:59 06/22/19 19:56 Clonidine HCl (Catapres Tab) 0.1 mg Q4H PRN GT For High Blood Pressure 06/17/19 19:44 07/17/19 19:43 Daptomycin 500 mg/ Sodium Chloride 55 ml @ 100 mls/hr Q48H IV 06/18/19 13:00 06/23/19 23:59 06/22/19 12:58 Hydralazine HCl (Apresoline) 25 mg Q6HR GT 06/22/19 12:00 07/18/19 11:59 06/23/19 11:40 Lansoprazole (Prevacid) 30 mg BID GT 06/18/19 09:00 07/06/19 17:59 06/23/19 09:34 Metoprolol Tartrate (Lopressor) 5 mg Q5MIN X 3 IVP 06/17/19 19:45 07/07/19 16:14 Potassium Chloride 100 ml @ 50 mls/hr Q2HR IVPB 06/23/19 12:00 06/23/19 15:59 06/23/19 11:40 Prednisone (predniSONE) 10 mg DAILY GT 06/23/19 09:00 07/21/19 08:59 06/23/19 09:36 Vitamin D (Vitamin D) 2,000 intlu DAILY GT 06/23/19 09:00 07/07/19 12:59 06/23/19 09:33 Latha Lowe M.D. Jun 23, 2019 12:58
--- NOTE | 2019-06-23 14:01 | Surgery Progress Note ---
Surgery Progress Note Subjective Procedure Performed tracheostomy Additional Comments no acute events exam stable labs noted Objective Last 24 Hour Vital Signs Date Time Temp Pulse Resp B/P (MAP) Pulse Ox O2 Delivery O2 Flow Rate FiO2 06/23/19 13:08 98 T-Piece 10.0 35 06/23/19 12:03 Mechanical Ventilator 06/23/19 12:00 10.0 35 06/23/19 11:40 129/76 06/23/19 11:37 98.2 90 21 129/76 (93) 94 06/23/19 10:10 10.0 35 06/23/19 09:15 92 20 35 06/23/19 08:00 35 06/23/19 08:00 Mechanical Ventilator 06/23/19 08:00 97.9 94 21 117/63 (81) 99 06/23/19 08:00 85 06/23/19 07:07 103 22 35 06/23/19 07:07 100 Mechanical Ventilator 35 06/23/19 07:07 92 20 100 Mechanical Ventilator 35 06/23/19 06:21 123/74 06/23/19 05:21 119 24 35 06/23/19 04:13 115 29 35 06/23/19 04:00 107 06/23/19 04:00 Mechanical Ventilator 06/23/19 04:00 98.2 100 21 155/83 (107) 99 06/23/19 04:00 35 06/23/19 01:23 98 T-Piece 10.0 35 06/23/19 00:00 T-piece 10.0 06/23/19 00:00 98.0 92 21 158/78 (104) 98 06/23/19 00:00 10.0 35 06/23/19 00:00 90 06/22/19 23:31 162/70 06/22/19 20:00 97.7 90 19 154/82 (106) 98 06/22/19 20:00 93 06/22/19 20:00 T-piece 10.0 06/22/19 20:00 10.0 35 06/22/19 19:11 94 20 99 T-Piece 10.0 35 06/22/19 19:11 99 T-Piece 10.0 35 06/22/19 18:48 168/74 06/22/19 16:00 10.0 35 06/22/19 16:00 97.9 97 18 151/88 (109) 99 06/22/19 16:00 T-piece 10.0 06/22/19 15:14 88 06/22/19 14:15 78 20 99 Trach Collar 10.0 35 I&O Intake and Output 06/22/19 06/23/19 19:00 07:00 Intake Total 835 ml 700 ml Output Total 825 ml 1100 ml Balance 10 ml -400 ml Free Water 300 ml IV Total 55 ml Tube Feeding 520 ml 400 ml Other 260 ml Output Urine Total 625 ml 600 ml Stool Total 200 ml 500 ml Dressing: dry Wound: clean Cardiovascular: RSR Respiratory: clear, decreased breath sounds Abdomen: soft, present bowel sounds Extremities: no cyanosis, other Laboratory Tests Test 06/23/19 04:55 White Blood Count 7.0 K/UL (4.8-10.8) Red Blood Count 3.64 M/UL (4.70-6.10) L Hemoglobin 11.3 G/DL (14.2-18.0) L Hematocrit 33.2 % (42.0-52.0) L Mean Corpuscular Volume 91 FL (80-99) Mean Corpuscular Hemoglobin 31.0 PG (27.0-31.0) Mean Corpuscular Hemoglobin Concent 34.0 G/DL (32.0-36.0) Red Cell Distribution Width 14.6 % (11.6-14.8) Platelet Count 90 K/UL (150-450) L Mean Platelet Volume 6.9 FL (6.5-10.1) Neutrophils (%) (Auto) % (45.0-75.0) Lymphocytes (%) (Auto) % (20.0-45.0) Monocytes (%) (Auto) % (1.0-10.0) Eosinophils (%) (Auto) % (0.0-3.0) Basophils (%) (Auto) % (0.0-2.0) Prothrombin Time 11.9 SEC (9.30-11.50) H Prothromb Time International Ratio 1.1 (0.9-1.1) Activated Partial Thromboplast Time 25 SEC (23-33) Sodium Level 149 MMOL/L (136-145) H Potassium Level 3.1 MMOL/L (3.5-5.1) L Chloride Level 113 MMOL/L (98-107) H Carbon Dioxide Level 28 MMOL/L (21-32) Anion Gap 8 mmol/L (5-15) Blood Urea Nitrogen 95 mg/dL (7-18) H Creatinine 3.4 MG/DL (0.55-1.30) H Estimat Glomerular Filtration Rate mL/min (>60) Glucose Level 133 MG/DL (74-106) H Calcium Level 7.6 MG/DL (8.5-10.1) L Phosphorus Level 3.5 MG/DL (2.5-4.9) Total Bilirubin 0.3 MG/DL (0.2-1.0) Aspartate Amino Transf (AST/SGOT) 119 U/L (15-37) H Alanine Aminotransferase (ALT/SGPT) 187 U/L (12-78) H Alkaline Phosphatase 158 U/L (46-116) H Total Protein 5.2 G/DL (6.4-8.2) L Albumin 1.6 G/DL (3.4-5.0) L Globulin 3.6 g/dL Albumin/Globulin Ratio 0.4 (1.0-2.7) L Random Vancomycin Level 5.7 ug/mL Plan Problems: (1) Cellulitis of upper extremity Assessment & Plan: 84M with RUE cellulitis, edema, erythema. no drainage. has RUE picc line recommend removal of picc. removed at bedside by myself on 05/18. pressure held, hemostasis noted, dressings applied. cath tip sent for cultures DVT duplex studies with acute thrombus IV Abx as per ID UA pending Cx results keep RUE elevated on pillows okay for diet AM labs anticoagulation off load pressure for dti noted cellulitis and edema improved deteriorated intubated on vent support likely respiratory insufficiency labs ordered wean vent okay for tube feeds via ng - cont as tolerated wean vent am labs HD as per renal will follow with recs thank you (2) Cellulitis Assessment & Plan: Pt presented on admission with reabsorbing blister lateral R heel. Base of injury indurated with delineated margins(L)4cm x (W)3cm.Non- blanching erythema Sacrum ,R and L buttocks(L)8.5cm x (W)9cm, with a partial thickness pressure injury noted to L buttocks. Base of wound is moist and viable (L)2.3cm x (W)3cm. Area around wound tender when minimally palpated. Pt noted to be wearing splint L foot. Per pt he fractured foot a few weeks ago. Splint removed to assess skin integrity. L heel and malleoli are pink and blanchable.Cavilon Skin Barrier applied to L heel and malleoli and each area covered with Optifoam drsg. Splint reapplied. No other skin concerns noted. unchanged Partial Thickness pressure injury L buttocks resolved . Non-blanching erythema without induration noted to Sacrum,R and L buttocks. (L)8cm x (W)9cm. Scrotum is grossly enlarged and is erythematous and macerated. Penile shaft is grossly swollen .Pt noted to have a partially opened blood blister with 25% biofilm at base of shaft of penis.(L)4.5cm x (W)2.5cm. Bilat groin, medial /posterior aspects of both upper thighs are erythematous and denuded. R lower ext edematous. R heel blister reabsorbed. Non--blanching erythema without induration noted to R heel. Splint removed from L foot. Optifoam drsgs removed from malleoli and heel. Pt noted to have developed several DTPI's despite having Optifoam drsgs. DTPI noted to L achilles . Base of wound is purple and fluctuant (L)0.6cm x (W) 2.7cm.DTPI noted to medial L malleolus(L)0.2cm x (W)0.3cm.Base of wound is purple with marginal erythema. DTPI noted to dorsal L foot. Base of wound is purple with marginal erythema along borders (L)0.9cm x (W)0.5cm.L heel is boggy with non-blanching erythema. Cavilon Skin Barrier applied to affected areas on L foot . Dorsal L foot ,Achilles .R and L malleoli and L heel each covered with Optifoam drsg. Non-blanching erythema without induration noted to lateral L tibia. At plantar aspect of L hallux small dry eschar noted. No erythema or fluctuance periwound. (L)0.5cm x (W)0.4cm. IN addition to Optifoam drsgs placed over each bony prominence of L foot ABD pads placed over dorsal and plantar L foot , Abd pads aligned along L tibia. Splint realigned to L foot Wrapped loosely with Kerlix then wrapped loosely with [place] wrap. L foot floated off mattress with pillow. Tx.Plan: Apply Cavilon to Dorsal L foot. L achilles .Medial/Lateral Malleoli L Foot and L heel. Cover each site with Optifoam drsg. Change every 7 days and prn. Apply Cavilon Plantar L foot. Cover with Optifoam drsg. Change every 7 days and prn. Apply Moisture Barrier Paste to sacrum. Cover with Optifoam drsg. Changee very 7 days and prn. Apply Cavilon Skin Barrier to Both heels. Cover each heel with Optifoam drsg. Change every 7 days and prn. Cleanse wound Shaft of penis with saline. Apply Moisture Barrier Paste Daily and prn. Apply Moisture Barrier Paste to Bilat groin, Scrotum, Medial/Posterior aspects of both upper thighs with each perineal care. Reposition at least every 2hours or as tolerated. Off-load heels with pillows. APM/LA L Mattress overlay. (3) SOB (shortness of breath) Assessment & Plan: Unfortunately patient has been in the intensive care unit on ventilatory support unable to be weaned from vent. Will likely require prolonged ventilatory support. Respiratory insufficiency not improving. Patient is full code as per identifiable documentation in patient's chart and medical record. No family or next kin available. Given patient's wishes current condition and course of a care tracheostomy is indicated recommended. Tracheostomy would be medically necessary as a next step in patient's care plan. s/p trach wean vent (4) Deep tissue injury Assessment & Plan: appreciate vascular input Bennett Logan Jun 23, 2019 14:01
--- NOTE | 2019-06-23 14:09 | Nephrology Progress Note ---
Assessment/Plan Problem List: (1) Renal failure (ARF), acute on chronic Assessment: Cr rising (2) Cellulitis of upper extremity (3) A-fib (4) Pneumonia (5) UTI (urinary tract infection) (6) Anemia Assessment: worsened (7) Hypothyroidism Assessment - KIMO on CKD - Urinary tract infection. - Anemia- - Dehydration. - Cellulitis of Upper extremity - HTN Plan no need for HD- remove dialysis cath taper steroids as possible on hydralazine dialysis last 06/14 - will observe renal parameters Trach 06/16 ! DC Midodrine DC IV IV Calcium and PO Vit D ad needed Transfuse one unit PRBcs in ICU- intubated BP meds and Mind altering meds discontinued On midodrine check vanco levels - hold vanco doses previously: Per cardiology Anemia kumari- Avoid Nephrotoxics Per ID Allow CHANDA inhibitor to continue as long as renal function does not worsen. PICC line has been removed. CXR: Increased right pleural effusion and similar left pleural effusion. Increased interstitial and hazy opacities throughout the lungs. Subjective ROS Limited/Unobtainable: Yes Objective Objective Last 24 Hour Vital Signs Date Time Temp Pulse Resp B/P (MAP) Pulse Ox O2 Delivery O2 Flow Rate FiO2 06/23/19 13:08 98 T-Piece 10.0 35 06/23/19 12:03 Mechanical Ventilator 06/23/19 12:00 10.0 35 06/23/19 11:40 129/76 06/23/19 11:37 98.2 90 21 129/76 (93) 94 06/23/19 10:10 10.0 35 06/23/19 09:15 92 20 35 06/23/19 08:00 35 06/23/19 08:00 Mechanical Ventilator 06/23/19 08:00 97.9 94 21 117/63 (81) 99 06/23/19 08:00 85 06/23/19 07:07 103 22 35 06/23/19 07:07 100 Mechanical Ventilator 35 06/23/19 07:07 92 20 100 Mechanical Ventilator 35 06/23/19 06:21 123/74 06/23/19 05:21 119 24 35 06/23/19 04:13 115 29 35 06/23/19 04:00 107 06/23/19 04:00 Mechanical Ventilator 06/23/19 04:00 98.2 100 21 155/83 (107) 99 1/27/20 04:00 35 06/23/19 01:23 98 T-Piece 10.0 35 06/23/19 00:00 T-piece 10.0 06/23/19 00:00 98.0 92 21 158/78 (104) 98 06/23/19 00:00 10.0 35 06/23/19 00:00 90 06/22/19 23:31 162/70 06/22/19 20:00 97.7 90 19 154/82 (106) 98 06/22/19 20:00 93 06/22/19 20:00 T-piece 10.0 06/22/19 20:00 10.0 35 06/22/19 19:11 94 20 99 T-Piece 10.0 35 06/22/19 19:11 99 T-Piece 10.0 35 06/22/19 18:48 168/74 06/22/19 16:00 10.0 35 06/22/19 16:00 97.9 97 18 151/88 (109) 99 06/22/19 16:00 T-piece 10.0 06/22/19 15:14 88 06/22/19 14:15 78 20 99 Trach Collar 10.0 35 Intake and Output 06/22/19 06/23/19 19:00 07:00 Intake Total 835 ml 700 ml Output Total 825 ml 1100 ml Balance 10 ml -400 ml Free Water 300 ml IV Total 55 ml Tube Feeding 520 ml 400 ml Other 260 ml Output Urine Total 625 ml 600 ml Stool Total 200 ml 500 ml Current Medications Medications (Trade) Dose Ordered Sig/Phillip Route PRN Reason Start Time Stop Time Status Last Admin Dose Admin Acetaminophen (Tylenol) 500 mg Q4H PRN GT Mild Pain/Temp > 100.5 06/17/19 19:43 07/17/19 19:42 Amiodarone HCl (Cordarone) 200 mg DAILY GT 06/18/19 09:00 07/07/19 16:14 06/23/19 09:34 Chlorhexidine Gluconate (Reina-Hex 2%) 1 applic DAILY@1999 TOPIC 06/17/19 20:00 06/26/19 19:59 06/22/19 19:56 Clonidine HCl (Catapres Tab) 0.1 mg Q4H PRN GT For High Blood Pressure 06/17/19 19:44 07/17/19 19:43 Daptomycin 500 mg/ Sodium Chloride 55 ml @ 100 mls/hr Q48H IV 06/18/19 13:00 06/23/19 23:59 06/22/19 12:58 Hydralazine HCl (Apresoline) 25 mg Q6HR GT 06/22/19 12:00 07/18/19 11:59 06/23/19 11:40 Lansoprazole (Prevacid) 30 mg BID GT 06/18/19 09:00 07/06/19 17:59 06/23/19 09:34 Metoprolol Tartrate (Lopressor) 5 mg Q5MIN X 3 IVP 06/17/19 19:45 07/07/19 16:14 Potassium Chloride 100 ml @ 50 mls/hr Q2HR IVPB 06/23/19 12:00 06/23/19 15:59 06/23/19 11:40 Prednisone (predniSONE) 10 mg DAILY GT 06/23/19 09:00 07/21/19 08:59 06/23/19 09:36 Vitamin D (Vitamin D) 2,000 intlu DAILY GT 06/23/19 09:00 07/07/19 12:59 06/23/19 09:33 Laboratory Tests 06/23/19 04:55: White Blood Count 7.0, Red Blood Count 3.64L, Hemoglobin 11.3L, Hematocrit 33.2L , Mean Corpuscular Volume 91, Mean Corpuscular Hemoglobin 31.0, Mean Corpuscular Hemoglobin Concent 34.0, Red Cell Distribution Width 14.6, Platelet Count 90L, Mean Platelet Volume 6.9, Neutrophils (%) (Auto) , Lymphocytes (%) ( Auto) , Monocytes (%) (Auto) , Eosinophils (%) (Auto) , Basophils (%) (Auto) , Prothrombin Time 11.9H, Prothromb Time International Ratio 1.1, Activated Partial Thromboplast Time 25, Sodium Level 149H, Potassium Level 3.1L, Chloride Level 113H, Carbon Dioxide Level 28, Anion Gap 8, Blood Urea Nitrogen 95H, Creatinine 3.4H, Estimat Glomerular Filtration Rate , Glucose Level 133H, Calcium Level 7.6L, Phosphorus Level 3.5, Total Bilirubin 0.3, Aspartate Amino Transf (AST/SGOT) 119H, Alanine Aminotransferase (ALT/SGPT) 187H, Alkaline Phosphatase 158H, Total Protein 5.2L, Albumin 1.6L, Globulin 3.6, Albumin/ Globulin Ratio 0.4L, Random Vancomycin Level 5.7 Height (Feet): 5 Height (Inches): 7.00 Weight (Pounds): 179 General Appearance: no apparent distress EENT: other - vented Cardiovascular: tachycardia Respiratory/Chest: decreased breath sounds Abdomen: distended Objective no change Reinier Mera MD Jun 23, 2019 14:09
[2019-06-23 16:00] VITALS: BP 140/75
[2019-06-23 20:00] VITALS: BP 153/77
[2019-06-23] MEDS: Dyna-Hex 2% Top Sol 2oz TOPIC SCH (20:20)
--- NOTE | 2019-06-23 20:58 | General Progress Note ---
Assessment/Plan Problem List: (1) SOB (shortness of breath) ICD Codes: R06.02 - Shortness of breath SNOMED: 373014124 (2) Cellulitis ICD Codes: L03.90 - Cellulitis, unspecified SNOMED: 741248357 (3) Cellulitis of upper extremity ICD Codes: L03.119 - Cellulitis of unspecified part of limb SNOMED: 325564912 Qualifiers: Qualified Codes: L03.113 - Cellulitis of right upper limb (4) Renal insufficiency ICD Codes: N28.9 - Disorder of kidney and ureter, unspecified SNOMED: 483909879, 462772855 (5) Renal failure (ARF), acute on chronic ICD Codes: N17.9 - Acute kidney failure, unspecified; N18.9 - Chronic kidney disease, unspecified SNOMED: 785244620 (6) Anemia ICD Codes: D64.9 - Anemia, unspecified SNOMED: 966631684 (7) Hypothyroidism ICD Codes: E03.9 - Hypothyroidism, unspecified SNOMED: 38964408 (8) UTI (urinary tract infection) ICD Codes: N39.0 - Urinary tract infection, site not specified SNOMED: 74466615 Status: progressing, unchanged Assessment/Plan: cellulitis platlet is going down [place].replacement per renal needs subacute placement as well HD dialysis is stopped by dr osborne no fever on vent le fracture jessi eval trach chf pna sepsis edema wi Subjective ROS Limited/Unobtainable: Yes Allergies: Coded Allergies: No Known Allergies (Unverified , 05/18/19) Objective Last 24 Hour Vital Signs Date Time Temp Pulse Resp B/P (MAP) Pulse Ox O2 Delivery O2 Flow Rate FiO2 06/23/19 20:00 98.0 83 24 153/77 (102) 98 06/23/19 19:14 98 Trach Collar 10.0 35 06/23/19 19:13 83 20 98 Trach Collar 10.0 35 06/23/19 18:43 140/75 06/23/19 16:08 10.0 35 06/23/19 16:02 Trach Collar 10.0 Trach Collar 10.0 06/23/19 16:00 97.7 92 24 140/75 (96) 98 06/23/19 16:00 111 06/23/19 13:08 98 T-Piece 10.0 35 06/23/19 12:00 86 06/23/19 12:00 10.0 35 06/23/19 12:00 Trach Collar 10.0 Trach Collar 10.0 06/23/19 11:40 129/76 06/23/19 11:37 98.2 90 21 129/76 (93) 94 06/23/19 10:10 10.0 35 06/23/19 09:15 92 20 35 06/23/19 08:00 35 06/23/19 08:00 Mechanical Ventilator 06/23/19 08:00 97.9 94 21 117/63 (81) 99 06/23/19 08:00 85 06/23/19 07:07 103 22 35 06/23/19 07:07 100 Mechanical Ventilator 35 06/23/19 07:07 92 20 100 Mechanical Ventilator 35 06/23/19 06:21 123/74 06/23/19 05:21 119 24 35 06/23/19 04:13 115 29 35 06/23/19 04:00 107 06/23/19 04:00 Mechanical Ventilator 06/23/19 04:00 98.2 100 21 155/83 (107) 99 06/23/19 04:00 35 06/23/19 01:23 98 T-Piece 10.0 35 06/23/19 00:00 T-piece 10.0 06/23/19 00:00 98.0 92 21 158/78 (104) 98 06/23/19 00:00 10.0 35 06/23/19 00:00 90 06/22/19 23:31 162/70 Intake and Output 06/22/19 06/23/19 19:00 07:00 Intake Total 835 ml 740 ml Output Total 825 ml 1100 ml Balance 10 ml -360 ml Free Water 300 ml IV Total 55 ml Tube Feeding 520 ml 440 ml Other 260 ml Output Urine Total 625 ml 600 ml Stool Total 200 ml 500 ml Laboratory Tests 06/23/19 04:55: White Blood Count 7.0, Red Blood Count 3.64L, Hemoglobin 11.3L, Hematocrit 33.2L , Mean Corpuscular Volume 91, Mean Corpuscular Hemoglobin 31.0, Mean Corpuscular Hemoglobin Concent 34.0, Red Cell Distribution Width 14.6, Platelet Count 90L, Mean Platelet Volume 6.9, Neutrophils (%) (Auto) , Lymphocytes (%) ( Auto) , Monocytes (%) (Auto) , Eosinophils (%) (Auto) , Basophils (%) (Auto) , Prothrombin Time 11.9H, Prothromb Time International Ratio 1.1, Activated Partial Thromboplast Time 25, Sodium Level 149H, Potassium Level 3.1L, Chloride Level 113H, Carbon Dioxide Level 28, Anion Gap 8, Blood Urea Nitrogen 95H, Creatinine 3.4H, Estimat Glomerular Filtration Rate , Glucose Level 133H, Calcium Level 7.6L, Phosphorus Level 3.5, Total Bilirubin 0.3, Aspartate Amino Transf (AST/SGOT) 119H, Alanine Aminotransferase (ALT/SGPT) 187H, Alkaline Phosphatase 158H, Total Protein 5.2L, Albumin 1.6L, Globulin 3.6, Albumin/ Globulin Ratio 0.4L, Random Vancomycin Level 5.7 Height (Feet): 5 Height (Inches): 7.00 Weight (Pounds): 179 Respiratory/Chest: rhonchi - bilaterally Joslyn Wiggins MD Jun 23, 2019 20:58
[2019-06-24] VITALS: BP 149/83
[2019-06-24] MEDS: HydrALAZINE 25mg tab GT SCH ×4 (00:27→17:21)
[2019-06-24 04:00] VITALS: BP 148/82
[2019-06-24 05:47] LABS: HEMATOCRIT 29.3 % (42.0-52.0); HEMOGLOBIN 10.2 G/DL (14.2-18.0); MEAN CORPUSCULAR VOLUME 91 FL (80-99); PLATELET COUNT 89 K/UL (150-450); RED BLOOD COUNT 3.22 M/UL (4.70-6.10); WHITE BLOOD COUNT 4.6 K/UL (4.8-10.8)
[2019-06-24 06:36] LABS: ALANINE AMINOTRANSFERASE 160 U/L (12-78); ALBUMIN 1.5 G/DL (3.4-5.0); ALBUMIN/GLOBULIN RATIO 0.4 (1.0-2.7); ALKALINE PHOSPHATASE 142 U/L (46-116); ANION GAP 9 mmol/L (5-15); ASPARTATE AMINO TRANSFERASE 88 U/L (15-37); BILIRUBIN,TOTAL 0.3 MG/DL (0.2-1.0); BLOOD UREA NITROGEN 92 mg/dL (7-18); CALCIUM 7.6 MG/DL (8.5-10.1); CARBON DIOXIDE 25 MMOL/L (21-32); CHLORIDE 115 MMOL/L (98-107); CREATININE 3.1 MG/DL (0.55-1.30); POTASSIUM 3.2 MMOL/L (3.5-5.1); SODIUM 149 MMOL/L (136-145)
[2019-06-24 06:46] LABS: PHOSPHORUS 3.1 MG/DL (2.5-4.9)
--- NOTE | 2019-06-24 07:53 | General Progress Note ---
Assessment/Plan Problem List: (1) Dysphagia ICD Codes: R13.10 - Dysphagia, unspecified SNOMED: 78523128, 125406490 (2) Anemia ICD Codes: D64.9 - Anemia, unspecified SNOMED: 762443615 (3) Hypothyroidism ICD Codes: E03.9 - Hypothyroidism, unspecified SNOMED: 78344405 (4) Thrombus ICD Codes: I82.90 - Acute embolism and thrombosis of unspecified vein SNOMED: 44058149, 72839138, 986015475, 536193139 (5) A-fib ICD Codes: I48.91 - Unspecified atrial fibrillation SNOMED: 62962024 Status: progressing, unchanged Assessment/Plan: Assessment/Plan Problems: (1) Anemia ICD Codes: D64.9 - Anemia, unspecified SNOMED: 343799310 (2) Dysphagia ICD Codes: R13.10 - Dysphagia, unspecified SNOMED: 01320112, 284003225 Status: stable s/p PEG 06/13/19 GTF GT site care prn transfusions ppi fu pulm fu labs abx per ID4 repeat LFTS on HD Subjective ROS Limited/Unobtainable: No Allergies: Coded Allergies: No Known Allergies (Unverified , 05/18/19) Subjective coded today Objective Last 24 Hour Vital Signs Date Time Temp Pulse Resp B/P (MAP) Pulse Ox O2 Delivery O2 Flow Rate FiO2 06/24/19 07:42 90 16 96 Trach Collar 10.0 35 06/24/19 07:42 97 Trach Collar 10.0 35 06/24/19 05:57 163/86 06/24/19 04:00 Trach Collar 10.0 Trach Collar 10.0 06/24/19 04:00 85 06/24/19 04:00 10.0 35 06/24/19 04:00 98.0 95 24 148/82 (104) 98 06/24/19 01:02 98 Trach Collar 10.0 35 06/24/19 00:27 151/80 06/24/19 00:00 98.0 89 24 149/83 (105) 98 06/24/19 00:00 78 06/24/19 00:00 Trach Collar 10.0 Trach Collar 10.0 06/24/19 00:00 10.0 35 06/23/19 20:00 Trach Collar 10.0 Trach Collar 10.0 06/23/19 20:00 10.0 35 06/23/19 20:00 76 06/23/19 20:00 98.0 83 24 153/77 (102) 98 06/23/19 19:14 98 Trach Collar 10.0 35 06/23/19 19:13 83 20 98 Trach Collar 10.0 35 06/23/19 18:43 140/75 06/23/19 16:08 10.0 35 06/23/19 16:02 Trach Collar 10.0 Trach Collar 10.0 06/23/19 16:00 97.7 92 24 140/75 (96) 98 06/23/19 16:00 111 06/23/19 13:08 98 T-Piece 10.0 35 06/23/19 12:00 86 06/23/19 12:00 10.0 35 06/23/19 12:00 Trach Collar 10.0 Trach Collar 10.0 06/23/19 11:40 129/76 06/23/19 11:37 98.2 90 21 129/76 (93) 94 06/23/19 10:10 10.0 35 06/23/19 09:15 92 20 35 06/23/19 08:00 35 06/23/19 08:00 Mechanical Ventilator 06/23/19 08:00 97.9 94 21 117/63 (81) 99 06/23/19 08:00 85 Intake and Output 06/23/19 06/24/19 18:59 06:59 Intake Total 980 ml 640 ml Output Total 600 ml 1050 ml Balance 380 ml -410 ml Free Water 200 ml 160 ml Tube Feeding 480 ml 480 ml Other 300 ml Output Urine Total 600 ml 750 ml Stool Total 300 ml # Bowel Movements 100 Laboratory Tests 06/24/19 04:45: White Blood Count 4.6L, Red Blood Count 3.22L, Hemoglobin 10.2L, Hematocrit 29.3L, Mean Corpuscular Volume 91, Mean Corpuscular Hemoglobin 31.8H, Mean Corpuscular Hemoglobin Concent 35.0, Red Cell Distribution Width 15.0H, Platelet Count 89L, Mean Platelet Volume 6.8, Neutrophils (%) (Auto) , Lymphocytes (%) (Auto) , Monocytes (%) (Auto) , Eosinophils (%) (Auto) , Basophils (%) (Auto) , Sodium Level 149H, Potassium Level 3.2L, Chloride Level 115H, Carbon Dioxide Level 25, Anion Gap 9, Blood Urea Nitrogen 92H, Creatinine 3.1H, Estimat Glomerular Filtration Rate , Glucose Level 141H, Calcium Level 7.6L, Phosphorus Level 3.1, Magnesium Level [Pending], Total Bilirubin 0.3, Aspartate Amino Transf (AST/SGOT) 88H, Alanine Aminotransferase (ALT/SGPT) 160H , Alkaline Phosphatase 142H, C-Reactive Protein, Quantitative 5.9H, Pro-B-Type Natriuretic Peptide 3150H, Total Protein 4.9L, Albumin 1.5L, Globulin 3.4, Albumin/Globulin Ratio 0.4L, Random Vancomycin Level [Pending] Height (Feet): 5 Height (Inches): 7.00 Weight (Pounds): 172 General Appearance: lethargic EENT: normal ENT inspection Neck: supple Cardiovascular: normal rate Respiratory/Chest: decreased breath sounds Abdomen: normal bowel sounds, non tender, soft Extremities: non-tender Valentino Lino MD Jun 24, 2019 07:53
[2019-06-24 08:00] VITALS: BP 163/91
[2019-06-24] MEDS: Amiodarone 200mg tab GT SCH (08:16)
[2019-06-24] MEDS: Vitamin D 1000 IU Tab GT SCH (08:16)
[2019-06-24] MEDS ORDERED: D5NS 1000ml IV ONE (08:24)
[2019-06-24] MEDS ORDERED: Tubing IV Blood Pump IV ONE (08:24)
[2019-06-24] MEDS ORDERED: NS 275ml ONE (08:24)
[2019-06-24] MEDS ORDERED: Tubing IV Secondary IV ONE (08:24)
--- NOTE | 2019-06-24 10:39 | Pulmonology Progress Note ---
Assessment/Plan Assessment/Plan IMPRESSION AND PLAN: 1. S/p tracheostomy 2. Cellulitis. 3. History of COPD. 4. Hypertension. 5. Afib with RVR; rate controlled 6. Respiratory failure; 7. Renal failure DISCUSSION: 1. S/p trach; 2. Continue present management and care. 3. Continue medications and HHN with atrovent only 4. DC planning 5. Continue trach collar Arsen Whittaker M.D. Subjective Interval Events: Tolerating trach collar Constitutional: Reports: no symptoms HEENT: Repors: no symptoms Respiratory: Reports: no symptoms Cardiovascular: Reports: no symptoms Gastrointestinal/Abdominal: Reports: no symptoms Genitourinary: Reports: no symptoms Allergies: Coded Allergies: No Known Allergies (Unverified , 05/18/19) Objective Last 24 Hour Vital Signs Date Time Temp Pulse Resp B/P (MAP) Pulse Ox O2 Delivery O2 Flow Rate FiO2 06/24/19 08:00 97.7 101 26 163/91 (115) 98 06/24/19 08:00 10.0 35 06/24/19 08:00 Trach Collar 10.0 Trach Collar 10.0 06/24/19 07:52 94 06/24/19 07:42 90 16 96 Trach Collar 10.0 35 06/24/19 07:42 97 Trach Collar 10.0 35 06/24/19 05:57 163/86 06/24/19 04:00 Trach Collar 10.0 Trach Collar 10.0 06/24/19 04:00 85 06/24/19 04:00 10.0 35 06/24/19 04:00 98.0 95 24 148/82 (104) 98 06/24/19 01:02 98 Trach Collar 10.0 35 06/24/19 00:27 151/80 06/24/19 00:00 98.0 89 24 149/83 (105) 98 06/24/19 00:00 78 06/24/19 00:00 Trach Collar 10.0 Trach Collar 10.0 06/24/19 00:00 10.0 35 06/23/19 20:00 Trach Collar 10.0 Trach Collar 10.0 06/23/19 20:00 10.0 35 06/23/19 20:00 76 06/23/19 20:00 98.0 83 24 153/77 (102) 98 06/23/19 19:14 98 Trach Collar 10.0 35 06/23/19 19:13 83 20 98 Trach Collar 10.0 35 06/23/19 18:43 140/75 06/23/19 16:08 10.0 35 06/23/19 16:02 Trach Collar 10.0 Trach Collar 10.0 06/23/19 16:00 97.7 92 24 140/75 (96) 98 06/23/19 16:00 111 06/23/19 13:08 98 T-Piece 10.0 35 06/23/19 12:00 86 06/23/19 12:00 10.0 35 06/23/19 12:00 Trach Collar 10.0 Trach Collar 10.0 06/23/19 11:40 129/76 06/23/19 11:37 98.2 90 21 129/76 (93) 94 Intake and Output 06/23/19 06/24/19 19:00 07:00 Intake Total 980 ml 640 ml Output Total 600 ml 1050 ml Balance 380 ml -410 ml Free Water 200 ml 160 ml Tube Feeding 480 ml 480 ml Other 300 ml Output Urine Total 600 ml 750 ml Stool Total 300 ml # Bowel Movements 100 General Appearance: no acute distress HEENT: normocephalic Respiratory/Chest: chest wall non-tender Cardiovascular: normal peripheral pulses, normal rate Laboratory Tests 06/24/19 04:45: White Blood Count 4.6L, Red Blood Count 3.22L, Hemoglobin 10.2L, Hematocrit 29.3L, Mean Corpuscular Volume 91, Mean Corpuscular Hemoglobin 31.8H, Mean Corpuscular Hemoglobin Concent 35.0, Red Cell Distribution Width 15.0H, Platelet Count 89L, Mean Platelet Volume 6.8, Neutrophils (%) (Auto) , Lymphocytes (%) (Auto) , Monocytes (%) (Auto) , Eosinophils (%) (Auto) , Basophils (%) (Auto) , Sodium Level 149H, Potassium Level 3.2L, Chloride Level 115H, Carbon Dioxide Level 25, Anion Gap 9, Blood Urea Nitrogen 92H, Creatinine 3.1H, Estimat Glomerular Filtration Rate , Glucose Level 141H, Calcium Level 7.6L, Phosphorus Level 3.1, Magnesium Level 2.3, Total Bilirubin 0.3, Aspartate Amino Transf (AST/SGOT) 88H, Alanine Aminotransferase (ALT/SGPT) 160H, Alkaline Phosphatase 142H, C-Reactive Protein, Quantitative 5.9H, Pro-B-Type Natriuretic Peptide 3150H, Total Protein 4.9L, Albumin 1.5L, Globulin 3.4, Albumin/Globulin Ratio 0.4L, Random Vancomycin Level [Pending] Current Medications Medications (Trade) Dose Ordered Sig/Phillip Route PRN Reason Start Time Stop Time Status Last Admin Dose Admin Acetaminophen (Tylenol) 500 mg Q4H PRN GT Mild Pain/Temp > 100.5 06/17/19 19:43 07/17/19 19:42 Amiodarone HCl (Cordarone) 200 mg DAILY GT 06/18/19 09:00 07/07/19 16:14 06/24/19 08:16 Chlorhexidine Gluconate (Reina-Hex 2%) 1 applic DAILY@1999 TOPIC 06/17/19 20:00 06/26/19 19:59 06/23/19 20:20 Clonidine HCl (Catapres Tab) 0.1 mg Q4H PRN GT For High Blood Pressure 06/17/19 19:44 07/17/19 19:43 Hydralazine HCl (Apresoline) 25 mg Q6HR GT 06/22/19 12:00 07/18/19 11:59 06/24/19 05:57 Lansoprazole (Prevacid) 30 mg BID GT 06/18/19 09:00 07/06/19 17:59 06/24/19 08:16 Metoprolol Tartrate (Lopressor) 5 mg Q5MIN X 3 IVP 06/17/19 19:45 07/07/19 16:14 Potassium Chloride (K-Dur) 40 meq TWICE A DAY GT 06/24/19 10:00 07/24/19 09:59 Prednisone (predniSONE) 10 mg DAILY GT 06/23/19 09:00 07/21/19 08:59 06/24/19 08:16 Vitamin D (Vitamin D) 2,000 intlu DAILY GT 06/23/19 09:00 07/07/19 12:59 06/24/19 08:16 Arsen Whittaker MD Jun 24, 2019 10:39
--- NOTE | 2019-06-24 11:43 | Infectious Diseases Prog Note ---
Assessment/Plan Assessment/Plan 84 yo male with PMHx of HTN who was sent to the ED on [facility]/18/19 [facility] for possible picc line infection. OM - Let foot, SP rx PNA , sp rx Acute respiratory failure s/p intubation 05/27, s/p trach 06/16/1906/10 CXR: Bilateral upper lobe interstitial opacities and volume loss are unchanged. Diffuse more acute appearing parenchymal disease throughout the left mid and lower lung are unchanged. CXR - Some LLL Atelectasis vs PNA, Nodules CT 05/20/19 - Bilateral upper lobe infiltrates worse on the right. Consider pneumonia. Bilateral pleural effusions moderate in size Sp Cx Marily Leukocytosis, mild recurrent (on steroids)- resolved No fever Swelling around PICC line, SP Minimal to no erythema and no purulent drainage Not likely to be infected Blood Cx 05/18/19 - NGTD PICC Tip Cx 05/18/19 - NGTD PICC line removed 05/18/19 HTN PLAN - Continue to monitor off abx -06/23 SP Daptomycin (completed OM course for left foot) - 06/10 SP Zosyn #15 - 05/28/19 SP Vancomycin per pharmacy - Stopped for increasing Cr - 05/27/19 SP Levofloxacin #5 - Monitor CBC and Temps -trach care -aspiration precautions -wound care per hospital protocol Thank you for this consult. [facility] will continue to follow the patient with you during this hospitalization. Subjective Allergies: Coded Allergies: No Known Allergies (Unverified , 05/18/19) Subjective afebrile no leukocytosis now off abx Objective Vital Signs Last 24 Hour Vital Signs Date Time Temp Pulse Resp B/P (MAP) Pulse Ox O2 Delivery O2 Flow Rate FiO2 06/24/19 11:25 163/91 06/24/19 08:00 97.7 101 26 163/91 (115) 98 06/24/19 08:00 10.0 35 06/24/19 08:00 Trach Collar 10.0 Trach Collar 10.0 06/24/19 07:52 94 06/24/19 07:42 90 16 96 Trach Collar 10.0 35 06/24/19 07:42 97 Trach Collar 10.0 35 06/24/19 05:57 163/86 06/24/19 04:00 Trach Collar 10.0 Trach Collar 10.0 06/24/19 04:00 85 06/24/19 04:00 10.0 35 06/24/19 04:00 98.0 95 24 148/82 (104) 98 06/24/19 01:02 98 Trach Collar 10.0 35 06/24/19 00:27 151/80 06/24/19 00:00 98.0 89 24 149/83 (105) 98 06/24/19 00:00 78 06/24/19 00:00 Trach Collar 10.0 Trach Collar 10.0 06/24/19 00:00 10.0 35 06/23/19 20:00 Trach Collar 10.0 Trach Collar 10.0 06/23/19 20:00 10.0 35 06/23/19 20:00 76 06/23/19 20:00 98.0 83 24 153/77 (102) 98 06/23/19 19:14 98 Trach Collar 10.0 35 06/23/19 19:13 83 20 98 Trach Collar 10.0 35 06/23/19 18:43 140/75 06/23/19 16:08 10.0 35 06/23/19 16:02 Trach Collar 10.0 Trach Collar 10.0 06/23/19 16:00 97.7 92 24 140/75 (96) 98 06/23/19 16:00 111 06/23/19 13:08 98 T-Piece 10.0 35 06/23/19 12:00 86 06/23/19 12:00 10.0 35 06/23/19 12:00 Trach Collar 10.0 Trach Collar 10.0 Height (Feet): 5 Height (Inches): 7.00 Weight (Pounds): 172 Objective General Appearance: no apparent distress, lethargic Cardiovascular: normal rate Respiratory/Chest: decreased breath sounds Abdomen: distended Laboratory Tests Test 06/24/19 04:45 White Blood Count 4.6 K/UL (4.8-10.8) L Red Blood Count 3.22 M/UL (4.70-6.10) L Hemoglobin 10.2 G/DL (14.2-18.0) L Hematocrit 29.3 % (42.0-52.0) L Mean Corpuscular Volume 91 FL (80-99) Mean Corpuscular Hemoglobin 31.8 PG (27.0-31.0) H Mean Corpuscular Hemoglobin Concent 35.0 G/DL (32.0-36.0) Red Cell Distribution Width 15.0 % (11.6-14.8) H Platelet Count 89 K/UL (150-450) L Mean Platelet Volume 6.8 FL (6.5-10.1) Neutrophils (%) (Auto) % (45.0-75.0) Lymphocytes (%) (Auto) % (20.0-45.0) Monocytes (%) (Auto) % (1.0-10.0) Eosinophils (%) (Auto) % (0.0-3.0) Basophils (%) (Auto) % (0.0-2.0) Sodium Level 149 MMOL/L (136-145) H Potassium Level 3.2 MMOL/L (3.5-5.1) L Chloride Level 115 MMOL/L (98-107) H Carbon Dioxide Level 25 MMOL/L (21-32) Anion Gap 9 mmol/L (5-15) Blood Urea Nitrogen 92 mg/dL (7-18) H Creatinine 3.1 MG/DL (0.55-1.30) H Estimat Glomerular Filtration Rate mL/min (>60) Glucose Level 141 MG/DL (74-106) H Calcium Level 7.6 MG/DL (8.5-10.1) L Phosphorus Level 3.1 MG/DL (2.5-4.9) Magnesium Level 2.3 MG/DL (1.8-2.4) Total Bilirubin 0.3 MG/DL (0.2-1.0) Aspartate Amino Transf (AST/SGOT) 88 U/L (15-37) H Alanine Aminotransferase (ALT/SGPT) 160 U/L (12-78) H Alkaline Phosphatase 142 U/L (46-116) H C-Reactive Protein, Quantitative 5.9 mg/dL (0.00-0.90) H Pro-B-Type Natriuretic Peptide 3150 pg/mL (0-125) H Total Protein 4.9 G/DL (6.4-8.2) L Albumin 1.5 G/DL (3.4-5.0) L Globulin 3.4 g/dL Albumin/Globulin Ratio 0.4 (1.0-2.7) L Random Vancomycin Level Pending Current Medications Medications (Trade) Dose Ordered Sig/Phillip Route PRN Reason Start Time Stop Time Status Last Admin Dose Admin Acetaminophen (Tylenol) 500 mg Q4H PRN GT Mild Pain/Temp > 100.5 06/17/19 19:43 07/17/19 19:42 Amiodarone HCl (Cordarone) 200 mg DAILY GT 06/18/19 09:00 07/07/19 16:14 06/24/19 08:16 Chlorhexidine Gluconate (Reina-Hex 2%) 1 applic DAILY@1999 TOPIC 06/17/19 20:00 06/26/19 19:59 06/23/19 20:20 Clonidine HCl (Catapres Tab) 0.1 mg Q4H PRN GT For High Blood Pressure 06/17/19 19:44 07/17/19 19:43 Hydralazine HCl (Apresoline) 25 mg Q6HR GT 06/22/19 12:00 07/18/19 11:59 06/24/19 11:25 Lansoprazole (Prevacid) 30 mg BID GT 06/18/19 09:00 07/06/19 17:59 06/24/19 08:16 Metoprolol Tartrate (Lopressor) 5 mg Q5MIN X 3 IVP 06/17/19 19:45 07/07/19 16:14 Potassium Chloride (K-Dur) 40 meq TWICE A DAY GT 06/24/19 10:00 07/24/19 09:59 06/24/19 11:25 Prednisone (predniSONE) 10 mg DAILY GT 06/23/19 09:00 07/21/19 08:59 06/24/19 08:16 Vitamin D (Vitamin D) 2,000 intlu DAILY GT 06/23/19 09:00 07/07/19 12:59 06/24/19 08:16 Latha Lowe M.D. Jun 24, 2019 11:43
--- NOTE | 2019-06-24 11:59 | Nephrology Progress Note ---
Assessment/Plan Problem List: (1) Renal failure (ARF), acute on chronic Assessment: Cr rising (2) Cellulitis of upper extremity (3) A-fib (4) Pneumonia (5) UTI (urinary tract infection) (6) Anemia Assessment: worsened (7) Hypothyroidism Assessment - KIMO on CKD - Urinary tract infection. - Anemia- - Dehydration. - Cellulitis of Upper extremity - HTN Plan no need for HD- remove dialysis cath taper steroids as possible on hydralazine dialysis last 06/14 - will observe renal parameters Trach 06/16 ! DC Midodrine DC IV IV Calcium and PO Vit D ad needed Transfuse one unit PRBcs in ICU- intubated BP meds and Mind altering meds discontinued On midodrine check vanco levels - hold vanco doses previously: Per cardiology Anemia kumari- Avoid Nephrotoxics Per ID Allow CHANDA inhibitor to continue as long as renal function does not worsen. PICC line has been removed. CXR: Increased right pleural effusion and similar left pleural effusion. Increased interstitial and hazy opacities throughout the lungs. Subjective ROS Limited/Unobtainable: Yes Objective Objective Last 24 Hour Vital Signs Date Time Temp Pulse Resp B/P (MAP) Pulse Ox O2 Delivery O2 Flow Rate FiO2 06/24/19 11:25 163/91 06/24/19 08:00 97.7 101 26 163/91 (115) 98 06/24/19 08:00 10.0 35 06/24/19 08:00 Trach Collar 10.0 Trach Collar 10.0 06/24/19 07:52 94 06/24/19 07:42 90 16 96 Trach Collar 10.0 35 06/24/19 07:42 97 Trach Collar 10.0 35 06/24/19 05:57 163/86 06/24/19 04:00 Trach Collar 10.0 Trach Collar 10.0 06/24/19 04:00 85 06/24/19 04:00 10.0 35 06/24/19 04:00 98.0 95 24 148/82 (104) 98 06/24/19 01:02 98 Trach Collar 10.0 35 06/24/19 00:27 151/80 06/24/19 00:00 98.0 89 24 149/83 (105) 98 06/24/19 00:00 78 06/24/19 00:00 Trach Collar 10.0 Trach Collar 10.0 06/24/19 00:00 10.0 35 06/23/19 20:00 Trach Collar 10.0 Trach Collar 10.0 06/23/19 20:00 10.0 35 06/23/19 20:00 76 06/23/19 20:00 98.0 83 24 153/77 (102) 98 06/23/19 19:14 98 Trach Collar 10.0 35 06/23/19 19:13 83 20 98 Trach Collar 10.0 35 06/23/19 18:43 140/75 06/23/19 16:08 10.0 35 06/23/19 16:02 Trach Collar 10.0 Trach Collar 10.0 06/23/19 16:00 97.7 92 24 140/75 (96) 98 06/23/19 16:00 111 06/23/19 13:08 98 T-Piece 10.0 35 06/23/19 12:00 86 06/23/19 12:00 10.0 35 06/23/19 12:00 Trach Collar 10.0 Trach Collar 10.0 Intake and Output 06/23/19 06/24/19 19:00 07:00 Intake Total 980 ml 640 ml Output Total 600 ml 1050 ml Balance 380 ml -410 ml Free Water 200 ml 160 ml Tube Feeding 480 ml 480 ml Other 300 ml Output Urine Total 600 ml 750 ml Stool Total 300 ml # Bowel Movements 100 Laboratory Tests 06/24/19 04:45: White Blood Count 4.6L, Red Blood Count 3.22L, Hemoglobin 10.2L, Hematocrit 29.3L, Mean Corpuscular Volume 91, Mean Corpuscular Hemoglobin 31.8H, Mean Corpuscular Hemoglobin Concent 35.0, Red Cell Distribution Width 15.0H, Platelet Count 89L, Mean Platelet Volume 6.8, Neutrophils (%) (Auto) , Lymphocytes (%) (Auto) , Monocytes (%) (Auto) , Eosinophils (%) (Auto) , Basophils (%) (Auto) , Sodium Level 149H, Potassium Level 3.2L, Chloride Level 115H, Carbon Dioxide Level 25, Anion Gap 9, Blood Urea Nitrogen 92H, Creatinine 3.1H, Estimat Glomerular Filtration Rate , Glucose Level 141H, Calcium Level 7.6L, Phosphorus Level 3.1, Magnesium Level 2.3, Total Bilirubin 0.3, Aspartate Amino Transf (AST/SGOT) 88H, Alanine Aminotransferase (ALT/SGPT) 160H, Alkaline Phosphatase 142H, C-Reactive Protein, Quantitative 5.9H, Pro-B-Type Natriuretic Peptide 3150H, Total Protein 4.9L, Albumin 1.5L, Globulin 3.4, Albumin/Globulin Ratio 0.4L, Random Vancomycin Level [Pending] Height (Feet): 5 Height (Inches): 7.00 Weight (Pounds): 172 General Appearance: no apparent distress Cardiovascular: normal rate Respiratory/Chest: decreased breath sounds Abdomen: soft Objective no change Reinier Mera MD Jun 24, 2019 11:59
[2019-06-24 12:00] VITALS: BP 134/74
--- NOTE | 2019-06-24 13:09 | Surgery Progress Note ---
Surgery Progress Note Subjective Procedure Performed Right internal jugular temporary hemodialysis catheter removal Additional Comments Right IJ temporary hemodialysis catheter removed Objective Last 24 Hour Vital Signs Date Time Temp Pulse Resp B/P (MAP) Pulse Ox O2 Delivery O2 Flow Rate FiO2 06/24/19 12:00 Trach Collar 10.0 Trach Collar 10.0 06/24/19 12:00 10.0 35 06/24/19 11:25 163/91 06/24/19 08:00 97.7 101 26 163/91 (115) 98 06/24/19 08:00 10.0 35 06/24/19 08:00 Trach Collar 10.0 Trach Collar 10.0 06/24/19 07:52 94 06/24/19 07:42 90 16 96 Trach Collar 10.0 35 06/24/19 07:42 97 Trach Collar 10.0 35 06/24/19 05:57 163/86 06/24/19 04:00 Trach Collar 10.0 Trach Collar 10.0 06/24/19 04:00 85 06/24/19 04:00 10.0 35 06/24/19 04:00 98.0 95 24 148/82 (104) 98 06/24/19 01:02 98 Trach Collar 10.0 35 06/24/19 00:27 151/80 06/24/19 00:00 98.0 89 24 149/83 (105) 98 06/24/19 00:00 78 06/24/19 00:00 Trach Collar 10.0 Trach Collar 10.0 06/24/19 00:00 10.0 35 06/23/19 20:00 Trach Collar 10.0 Trach Collar 10.0 06/23/19 20:00 10.0 35 06/23/19 20:00 76 06/23/19 20:00 98.0 83 24 153/77 (102) 98 06/23/19 19:14 98 Trach Collar 10.0 35 06/23/19 19:13 83 20 98 Trach Collar 10.0 35 06/23/19 18:43 140/75 06/23/19 16:08 10.0 35 06/23/19 16:02 Trach Collar 10.0 Trach Collar 10.0 06/23/19 16:00 97.7 92 24 140/75 (96) 98 06/23/19 16:00 111 I&O Intake and Output 06/23/19 06/24/19 19:00 07:00 Intake Total 980 ml 640 ml Output Total 600 ml 1050 ml Balance 380 ml -410 ml Free Water 200 ml 160 ml Tube Feeding 480 ml 480 ml Other 300 ml Output Urine Total 600 ml 750 ml Stool Total 300 ml # Bowel Movements 100 Dressing: dry Wound: clean Cardiovascular: RSR Respiratory: clear Abdomen: soft, non-tender, present bowel sounds Extremities: no cyanosis Laboratory Tests Test 06/24/19 04:45 White Blood Count 4.6 K/UL (4.8-10.8) L Red Blood Count 3.22 M/UL (4.70-6.10) L Hemoglobin 10.2 G/DL (14.2-18.0) L Hematocrit 29.3 % (42.0-52.0) L Mean Corpuscular Volume 91 FL (80-99) Mean Corpuscular Hemoglobin 31.8 PG (27.0-31.0) H Mean Corpuscular Hemoglobin Concent 35.0 G/DL (32.0-36.0) Red Cell Distribution Width 15.0 % (11.6-14.8) H Platelet Count 89 K/UL (150-450) L Mean Platelet Volume 6.8 FL (6.5-10.1) Neutrophils (%) (Auto) % (45.0-75.0) Lymphocytes (%) (Auto) % (20.0-45.0) Monocytes (%) (Auto) % (1.0-10.0) Eosinophils (%) (Auto) % (0.0-3.0) Basophils (%) (Auto) % (0.0-2.0) Sodium Level 149 MMOL/L (136-145) H Potassium Level 3.2 MMOL/L (3.5-5.1) L Chloride Level 115 MMOL/L (98-107) H Carbon Dioxide Level 25 MMOL/L (21-32) Anion Gap 9 mmol/L (5-15) Blood Urea Nitrogen 92 mg/dL (7-18) H Creatinine 3.1 MG/DL (0.55-1.30) H Estimat Glomerular Filtration Rate mL/min (>60) Glucose Level 141 MG/DL (74-106) H Calcium Level 7.6 MG/DL (8.5-10.1) L Phosphorus Level 3.1 MG/DL (2.5-4.9) Magnesium Level 2.3 MG/DL (1.8-2.4) Total Bilirubin 0.3 MG/DL (0.2-1.0) Aspartate Amino Transf (AST/SGOT) 88 U/L (15-37) H Alanine Aminotransferase (ALT/SGPT) 160 U/L (12-78) H Alkaline Phosphatase 142 U/L (46-116) H C-Reactive Protein, Quantitative 5.9 mg/dL (0.00-0.90) H Pro-B-Type Natriuretic Peptide 3150 pg/mL (0-125) H Total Protein 4.9 G/DL (6.4-8.2) L Albumin 1.5 G/DL (3.4-5.0) L Globulin 3.4 g/dL Albumin/Globulin Ratio 0.4 (1.0-2.7) L Random Vancomycin Level 5.0 ug/mL Plan Problems: (1) Cellulitis of upper extremity Assessment & Plan: 84M with RUE cellulitis, edema, erythema. no drainage. has RUE picc line recommend removal of picc. removed at bedside by myself on 05/18. pressure held, hemostasis noted, dressings applied. cath tip sent for cultures DVT duplex studies with acute thrombus IV Abx as per ID UA pending Cx results keep RUE elevated on pillows okay for diet AM labs anticoagulation off load pressure for dti noted cellulitis and edema improved deteriorated intubated on vent support likely respiratory insufficiency labs ordered wean vent okay for tube feeds via ng - cont as tolerated wean vent am labs HD as per renal will follow with recs thank you (2) Cellulitis Assessment & Plan: Pt presented on admission with reabsorbing blister lateral R heel. Base of injury indurated with delineated margins(L)4cm x (W)3cm.Non- blanching erythema Sacrum ,R and L buttocks(L)8.5cm x (W)9cm, with a partial thickness pressure injury noted to L buttocks. Base of wound is moist and viable (L)2.3cm x (W)3cm. Area around wound tender when minimally palpated. Pt noted to be wearing splint L foot. Per pt he fractured foot a few weeks ago. Splint removed to assess skin integrity. L heel and malleoli are pink and blanchable.Cavilon Skin Barrier applied to L heel and malleoli and each area covered with Optifoam drsg. Splint reapplied. No other skin concerns noted. unchanged Partial Thickness pressure injury L buttocks resolved . Non-blanching erythema without induration noted to Sacrum,R and L buttocks. (L)8cm x (W)9cm. Scrotum is grossly enlarged and is erythematous and macerated. Penile shaft is grossly swollen .Pt noted to have a partially opened blood blister with 25% biofilm at base of shaft of penis.(L)4.5cm x (W)2.5cm. Bilat groin, medial /posterior aspects of both upper thighs are erythematous and denuded. R lower ext edematous. R heel blister reabsorbed. Non--blanching erythema without induration noted to R heel. Splint removed from L foot. Optifoam drsgs removed from malleoli and heel. Pt noted to have developed several DTPI's despite having Optifoam drsgs. DTPI noted to L achilles . Base of wound is purple and fluctuant (L)0.6cm x (W) 2.7cm.DTPI noted to medial L malleolus(L)0.2cm x (W)0.3cm.Base of wound is purple with marginal erythema. DTPI noted to dorsal L foot. Base of wound is purple with marginal erythema along borders (L)0.9cm x (W)0.5cm.L heel is boggy with non-blanching erythema. Cavilon Skin Barrier applied to affected areas on L foot . Dorsal L foot ,Achilles .R and L malleoli and L heel each covered with Optifoam drsg. Non-blanching erythema without induration noted to lateral L tibia. At plantar aspect of L hallux small dry eschar noted. No erythema or fluctuance periwound. (L)0.5cm x (W)0.4cm. IN addition to Optifoam drsgs placed over each bony prominence of L foot ABD pads placed over dorsal and plantar L foot , Abd pads aligned along L tibia. Splint realigned to L foot Wrapped loosely with Kerlix then wrapped loosely with [place]ell wrap. L foot floated off mattress with pillow. Tx.Plan: Apply Cavilon to Dorsal L foot. L achilles .Medial/Lateral Malleoli L Foot and L heel. Cover each site with Optifoam drsg. Change every 7 days and prn. Apply Cavilon Plantar L foot. Cover with Optifoam drsg. Change every 7 days and prn. Apply Moisture Barrier Paste to sacrum. Cover with Optifoam drsg. Changee very 7 days and prn. Apply Cavilon Skin Barrier to Both heels. Cover each heel with Optifoam drsg. Change every 7 days and prn. Cleanse wound Shaft of penis with saline. Apply Moisture Barrier Paste Daily and prn. Apply Moisture Barrier Paste to Bilat groin, Scrotum, Medial/Posterior aspects of both upper thighs with each perineal care. Reposition at least every 2hours or as tolerated. Off-load heels with pillows. APM/LA L Mattress overlay. (3) SOB (shortness of breath) Assessment & Plan: Unfortunately patient has been in the intensive care unit on ventilatory support unable to be weaned from vent. Will likely require prolonged ventilatory support. Respiratory insufficiency not improving. Patient is full code as per identifiable documentation in patient's chart and medical record. No family or next kin available. Given patient's wishes current condition and course of a care tracheostomy is indicated recommended. Tracheostomy would be medically necessary as a next step in patient's care plan. s/p trach wean vent (4) Deep tissue injury Assessment & Plan: appreciate vascular input Bennett Logan Jun 24, 2019 13:09
--- NOTE | 2019-06-24 13:09 | Operative Note - PDOC ---
Operative Note Operative Note Date of Operation/Procedure: Jun 24, 2019 Pre-op Diagnosis: Renal insufficiency requiring hemodialysis Procedure: Right internal jugular temporary hemodialysis catheter removal Post-op Diagnosis: same as pre-op Surgeon: prudence Specimen: none Complications: none Condition: stable Fluids: see records Estimated Blood Loss: minimal Drains: none Implant(s) used?: No Indications for Procedure This is a 84-year-old male requiring hemodialysis through a right tunneled temporary internal jugular catheter. Since improving no longer requiring hemodialysis catheter plan for removal. Description of Procedure Patient was made comfortable at the bedside in the supine position. The right neck was prepped and draped prior dressings removed suture was cut and the catheter was removed. Catheter was discarded pressure was held for approximately 5 minutes until good hemostasis noted. Dressings applied. Will monitor Bennett Logan Jun 24, 2019 13:09
[2019-06-24 16:00] VITALS: BP 149/84
--- NOTE | 2019-06-24 19:35 | Hematology/Onc Progress Note ---
Assessment/Plan Assessment/Plan # Anemia of chronic disease due to underlying chronic medical issues, multifactorial v Gi bleed --> Anemia workup has been reviewed, ferritin >1k --> No evidence of hemolysis is noted, peripheral smear has been reviewed. --> Hgb goal >7. Transfuse prn. --> Epogen or iron at this time is not particularly indicated --> Medications have been reviewed --> low threshold for gi evaluation in case has occult + --> hgb trend: 9.3-->9.7-->8.1-->7.6-->8-->9.4-->9.2-->7.5-->9.3-->8-->8.1-->8.6 -->7.8-->8.3-->7.6-->8.2-->8.6-->10.4-->10.6-->11.3-->10.2 --> transf 05/28/19 with 1 unit prbc, 1 unit on 06/03, again on 06/18 --> transfusion is a emergency, no family, no poa, is okay to transfuse # Right upper arm extremity axillary vein dvt --> agree to continue eliquis --> continue for total of minimum of 3 months --> rescan arm in 3 mo # Thrombocytopenia is due to infection, i.e. cellulitis of upper extremity, likely picc line infection --> as per id on ax --> picc off --> levoflox/vanc-->zosyn/vanc--> zosyn-->dapto/zosyn --> plt trend 208-->132-->146k-->159-->217-->211-->145-->117-->145-->111-->88--> 90-->89 # Respiratory failure s/p vent --> has been failing weaning --> trach 06/16 # KIMO on CKD --> per Dr. Mera --> HD as needed # Pneumonia --> abx per id # Dehydration. --> goal of euvolemia # Paroxysmal Atrial fibrillation with rapid ventricular response was on amiodarone gtt, now in sinus rhythm. --> per cards On PO amiodarone 200 bid, Lopressor 25 bid # Dysphagia with ng tube --> s/p peg 06/13 # Septic shock --> has required icu admission, and pressor # Dvt ppx eliquis--> continued The timing of this note does not necessarily reflect the time of the patient was seen. Greatly appreciate consultation. Subjective Allergies: Coded Allergies: No Known Allergies (Unverified , 05/18/19) Subjective 05/24: awake and alert, v mask, labs reviewed, apixaban 05/25: as per gi, ngt and eliquis tolerated 05/26: pending clearance but still with ng and nonrebreather 05/27: hypoxic yesterday, deteriorated, coded, now intubated, icu, labs noted 05/28: icu, levophed gtt, hgb 7.6, repeat cbc 05/29: remains in the icu, given prbc last night, no bleeding 05/30: no events, no bleeding, ++ fredo and on pressor 05/31: intubated, bp better on pressor, no bleeding, coag ordered 06/02: reamins ill appearing, on vent, labs noted, on vent, poorly responsive 06/03: no events, no bleeding, labs noted, dw surgery, and Rn, monitoring plt 06/04: tolerating tube feeds, labs noted, in the icu 06/05: restraints, cxr unchanged, anticoagulants on hold until further notice 06/06: no events, no bleeding, no night sweats, no bleeding 06/08: icu, unable to wean per resp, apixaban restarted, labs reviewed 06/09: minimally responsive, on vent and gt feeds, no bleeding 06/10: no acute events, failed to wean, hd for today, h/h stable 06/11: remains altered, may need trach, coags ordered, no bleeding currently 06/12: no events, no bleeding, trach pending, no major changes 06/13: icu, weaning failed, egd pending, hgb 7.6, repeat cbc 06/15: no events, no bleeding, is more responsive, labs reviewed, no changes, on pressor 06/16: remains on vent, no bleeding, on pressors, labs noted 06/17: now is s/p trach as well, on vent, labs reviewed, jeison Huang 06/18: no new events, transferred out of the icu, s/p peg and trach 06/19: s/p prbc, hgb improved to 10.4, seen by rt, no resp distress 06/20: remains confused, getting amio per cards, hgb better, psych recs noted 06/22: sdu, no acute events, ferritin >1k, hep panel negative 06/23: no major changes, labs are reviewed, jeison Franco, hgb stable 06/24: no overnight events, labs reviewed, off abx, on steroids Objective Objective Current Medications Medications (Trade) Dose Ordered Sig/Phillip Route PRN Reason Start Time Stop Time Status Last Admin Dose Admin Acetaminophen (Tylenol) 500 mg Q4H PRN GT Mild Pain/Temp > 100.5 06/17/19 19:43 07/17/19 19:42 Amiodarone HCl (Cordarone) 200 mg DAILY GT 06/18/19 09:00 07/07/19 16:14 06/24/19 08:16 Clonidine HCl (Catapres Tab) 0.1 mg Q4H PRN GT For High Blood Pressure 06/17/19 19:44 07/17/19 19:43 Hydralazine HCl (Apresoline) 25 mg Q6HR GT 06/22/19 12:00 07/18/19 11:59 06/24/19 17:21 Lansoprazole (Prevacid) 30 mg BID GT 06/18/19 09:00 07/06/19 17:59 06/24/19 17:21 Metoprolol Tartrate (Lopressor) 5 mg Q5MIN X 3 IVP 06/17/19 19:45 07/07/19 16:14 Potassium Chloride (K-Dur) 40 meq TWICE A DAY GT 06/24/19 10:00 07/24/19 09:59 06/24/19 17:22 Prednisone (predniSONE) 10 mg DAILY GT 06/23/19 09:00 07/21/19 08:59 06/24/19 08:16 Vitamin D (Vitamin D) 2,000 intlu DAILY GT 06/23/19 09:00 07/07/19 12:59 06/24/19 08:16 Last 24 Hour Vital Signs Date Time Temp Pulse Resp B/P (MAP) Pulse Ox O2 Delivery O2 Flow Rate FiO2 06/24/19 19:28 95 18 95 Trach Collar 10.0 35 06/24/19 19:28 99 Trach Collar 10.0 35 06/24/19 17:21 149/67 06/24/19 16:00 Trach Collar 10.0 Trach Collar 10.0 06/24/19 16:00 10.0 35 06/24/19 16:00 97.5 94 24 149/84 (105) 97 06/24/19 15:27 110 06/24/19 13:19 98 Trach Collar 10.0 35 06/24/19 12:00 97.5 95 25 134/74 (94) 99 06/24/19 12:00 Trach Collar 10.0 Trach Collar 10.0 06/24/19 12:00 10.0 35 06/24/19 11:46 86 06/24/19 11:25 163/91 06/24/19 08:00 97.7 101 26 163/91 (115) 98 06/24/19 08:00 10.0 35 06/24/19 08:00 Trach Collar 10.0 Trach Collar 10.0 06/24/19 07:52 94 06/24/19 07:42 90 16 96 Trach Collar 10.0 35 06/24/19 07:42 97 Trach Collar 10.0 35 06/24/19 05:57 163/86 06/24/19 04:00 Trach Collar 10.0 Trach Collar 10.0 06/24/19 04:00 85 06/24/19 04:00 10.0 35 06/24/19 04:00 98.0 95 24 148/82 (104) 98 06/24/19 01:02 98 Trach Collar 10.0 35 06/24/19 00:27 151/80 06/24/19 00:00 98.0 89 24 149/83 (105) 98 06/24/19 00:00 78 06/24/19 00:00 Trach Collar 10.0 Trach Collar 10.0 06/24/19 00:00 10.0 35 06/23/19 20:00 Trach Collar 10.0 Trach Collar 10.0 06/23/19 20:00 10.0 35 06/23/19 20:00 76 06/23/19 20:00 98.0 83 24 153/77 (102) 98 06/23/19 19:14 98 Trach Collar 10.0 35 06/23/19 19:13 83 20 98 Trach Collar 10.0 35 06/23/19 18:43 140/75 06/23/19 16:08 10.0 35 06/23/19 16:02 Trach Collar 10.0 Trach Collar 10.0 06/23/19 16:00 97.7 92 24 140/75 (96) 98 06/23/19 16:00 111 06/23/19 13:08 98 T-Piece 10.0 35 06/23/19 12:00 86 06/23/19 12:00 10.0 35 06/23/19 12:00 Trach Collar 10.0 Trach Collar 10.0 06/23/19 11:40 129/76 06/23/19 11:37 98.2 90 21 129/76 (93) 94 06/23/19 10:10 10.0 35 06/23/19 09:15 92 20 35 06/23/19 08:00 35 06/23/19 08:00 Mechanical Ventilator 06/23/19 08:00 97.9 94 21 117/63 (81) 99 06/23/19 08:00 85 06/23/19 07:07 103 22 35 06/23/19 07:07 100 Mechanical Ventilator 35 06/23/19 07:07 92 20 100 Mechanical Ventilator 35 06/23/19 06:21 123/74 06/23/19 05:21 119 24 35 06/23/19 04:13 115 29 35 06/23/19 04:00 107 06/23/19 04:00 Mechanical Ventilator 06/23/19 04:00 98.2 100 21 155/83 (107) 99 06/23/19 04:00 35 06/23/19 01:23 98 T-Piece 10.0 35 06/23/19 00:00 T-piece 10.0 06/23/19 00:00 98.0 92 21 158/78 (104) 98 06/23/19 00:00 10.0 35 06/23/19 00:00 90 06/22/19 23:31 162/70 06/22/19 20:00 97.7 90 19 154/82 (106) 98 06/22/19 20:00 93 06/22/19 20:00 T-piece 10.0 06/22/19 20:00 10.0 35 Intake and Output 06/23/19 06/24/19 19:00 07:00 Intake Total 980 ml 640 ml Output Total 600 ml 1050 ml Balance 380 ml -410 ml Free Water 200 ml 160 ml Tube Feeding 480 ml 480 ml Other 300 ml Output Urine Total 600 ml 750 ml Stool Total 300 ml # Bowel Movements 100 Labs Test 06/22/19 03:35 06/23/19 04:55 06/24/19 04:45 White Blood Count 7.2 K/UL (4.8-10.8) 7.0 K/UL (4.8-10.8) 4.6 K/UL (4.8-10.8) Red Blood Count 3.42 M/UL (4.70-6.10) 3.64 M/UL (4.70-6.10) 3.22 M/UL (4.70-6.10) Hemoglobin 10.6 G/DL (14.2-18.0) 11.3 G/DL (14.2-18.0) 10.2 G/DL (14.2-18.0) Hematocrit 31.4 % (42.0-52.0) 33.2 % (42.0-52.0) 29.3 % (42.0-52.0) Mean Corpuscular Volume 92 FL (80-99) 91 FL (80-99) 91 FL (80-99) Mean Corpuscular Hemoglobin 31.1 PG (27.0-31.0) 31.0 PG (27.0-31.0) 31.8 PG (27.0-31.0) Mean Corpuscular Hemoglobin Concent 33.9 G/DL (32.0-36.0) 34.0 G/DL (32.0-36.0) 35.0 G/DL (32.0-36.0) Red Cell Distribution Width 15.1 % (11.6-14.8) 14.6 % (11.6-14.8) 15.0 % (11.6-14.8) Platelet Count 88 K/UL (150-450) 90 K/UL (150-450) 89 K/UL (150-450) Mean Platelet Volume 6.5 FL (6.5-10.1) 6.9 FL (6.5-10.1) 6.8 FL (6.5-10.1) Neutrophils (%) (Auto) % (45.0-75.0) % (45.0-75.0) % (45.0-75.0) Lymphocytes (%) (Auto) % (20.0-45.0) % (20.0-45.0) % (20.0-45.0) Monocytes (%) (Auto) % (1.0-10.0) % (1.0-10.0) % (1.0-10.0) Eosinophils (%) (Auto) % (0.0-3.0) % (0.0-3.0) % (0.0-3.0) Basophils (%) (Auto) % (0.0-2.0) % (0.0-2.0) % (0.0-2.0) Differential Total Cells Counted 100 Neutrophils % (Manual) 96 % (45-75) Lymphocytes % (Manual) 3 % (20-45) Monocytes % (Manual) 1 % (1-10) Eosinophils % (Manual) 0 % (0-3) Basophils % (Manual) 0 % (0-2) Band Neutrophils 0 % (0-8) Platelet Estimate Decreased Platelet Morphology Normal Hypochromasia 1+ Anisocytosis 1+ Sodium Level 149 MMOL/L (136-145) 149 MMOL/L (136-145) 149 MMOL/L (136-145) Potassium Level 3.6 MMOL/L (3.5-5.1) 3.1 MMOL/L (3.5-5.1) 3.2 MMOL/L (3.5-5.1) Chloride Level 112 MMOL/L (98-107) 113 MMOL/L (98-107) 115 MMOL/L (98-107) Carbon Dioxide Level 29 MMOL/L (21-32) 28 MMOL/L (21-32) 25 MMOL/L (21-32) Anion Gap 8 mmol/L (5-15) 8 mmol/L (5-15) 9 mmol/L (5-15) Blood Urea Nitrogen 96 mg/dL (7-18) 95 mg/dL (7-18) 92 mg/dL (7-18) Creatinine 3.7 MG/DL (0.55-1.30) 3.4 MG/DL (0.55-1.30) 3.1 MG/DL (0.55-1.30) Estimat Glomerular Filtration Rate mL/min (>60) mL/min (>60) mL/min (>60) Glucose Level 128 MG/DL (74-106) 133 MG/DL (74-106) 141 MG/DL (74-106) Calcium Level 7.6 MG/DL (8.5-10.1) 7.6 MG/DL (8.5-10.1) 7.6 MG/DL (8.5-10.1) Phosphorus Level 3.3 MG/DL (2.5-4.9) 3.5 MG/DL (2.5-4.9) 3.1 MG/DL (2.5-4.9) Magnesium Level 2.3 MG/DL (1.8-2.4) 2.3 MG/DL (1.8-2.4) Iron Level 48 ug/dL (50-175) Total Iron Binding Capacity 165 ug/dL (250-450) Percent Iron Saturation 29 % (15-50) Unsaturated Iron Binding 117 ug/dL (112-346) Ferritin 1489 NG/ML (8-388) Total Bilirubin 0.4 MG/DL (0.2-1.0) 0.3 MG/DL (0.2-1.0) 0.3 MG/DL (0.2-1.0) Aspartate Amino Transf (AST/SGOT) 106 U/L (15-37) 119 U/L (15-37) 88 U/L (15-37) Alanine Aminotransferase (ALT/SGPT) 133 U/L (12-78) 187 U/L (12-78) 160 U/L (12-78) Alkaline Phosphatase 120 U/L (46-116) 158 U/L (46-116) 142 U/L (46-116) Total Protein 5.0 G/DL (6.4-8.2) 5.2 G/DL (6.4-8.2) 4.9 G/DL (6.4-8.2) Albumin 1.6 G/DL (3.4-5.0) 1.6 G/DL (3.4-5.0) 1.5 G/DL (3.4-5.0) Globulin 3.4 g/dL 3.6 g/dL 3.4 g/dL Albumin/Globulin Ratio 0.5 (1.0-2.7) 0.4 (1.0-2.7) 0.4 (1.0-2.7) Vitamin B12 Level 1152 PG/ML (193-986) Folate 8.8 NG/ML (8.6-58.9) Random Vancomycin Level 5.2 ug/mL 5.7 ug/mL 5.0 ug/mL Prothrombin Time 11.9 SEC (9.30-11.50) Prothromb Time International Ratio 1.1 (0.9-1.1) Activated Partial Thromboplast Time 25 SEC (23-33) C-Reactive Protein, Quantitative 5.9 mg/dL (0.00-0.90) Pro-B-Type Natriuretic Peptide 3150 pg/mL (0-125) Height (Feet): 5 Height (Inches): 7.00 Weight (Pounds): 172 Objective PE: Vitals: reviewed General Appearance: NAD HEENT: normocephalic, atraumatic Neck: non-tender, normal alignment Respiratory/Chest: VENT++ ++ trach Cardiovascular/Chest: normal peripheral pulses, normal rate Abdomen: normal bowel sounds, soft, nontender ++ peg Extremities: normal range of motion ++ right arm swelling Suleman Addison MD Jun 24, 2019 19:34
[2019-06-24 20:00] VITALS: BP 157/81
--- NOTE | 2019-06-24 20:52 | General Progress Note ---
Assessment/Plan Problem List: (1) SOB (shortness of breath) ICD Codes: R06.02 - Shortness of breath SNOMED: 979402843 (2) Cellulitis ICD Codes: L03.90 - Cellulitis, unspecified SNOMED: 477778108 (3) Cellulitis of upper extremity ICD Codes: L03.119 - Cellulitis of unspecified part of limb SNOMED: 796487633 Qualifiers: Qualified Codes: L03.113 - Cellulitis of right upper limb (4) Renal insufficiency ICD Codes: N28.9 - Disorder of kidney and ureter, unspecified SNOMED: 172411925, 293575552 (5) Renal failure (ARF), acute on chronic ICD Codes: N17.9 - Acute kidney failure, unspecified; N18.9 - Chronic kidney disease, unspecified SNOMED: 117025091 (6) Anemia ICD Codes: D64.9 - Anemia, unspecified SNOMED: 335685891 (7) Hypothyroidism ICD Codes: E03.9 - Hypothyroidism, unspecified SNOMED: 55867463 (8) UTI (urinary tract infection) ICD Codes: N39.0 - Urinary tract infection, site not specified SNOMED: 69951704 Status: progressing, unchanged Assessment/Plan: thrombocytopenia moniter for bleeding low k.re HD dialysis is stopped by dr acevedo cri check lytes le fracture trach chf pna sepsis edema Subjective ROS Limited/Unobtainable: Yes Allergies: Coded Allergies: No Known Allergies (Unverified , 05/18/19) Objective Last 24 Hour Vital Signs Date Time Temp Pulse Resp B/P (MAP) Pulse Ox O2 Delivery O2 Flow Rate FiO2 06/24/19 20:00 98.0 87 24 157/81 (106) 99 06/24/19 19:28 95 18 95 Trach Collar 10.0 35 06/24/19 19:28 99 Trach Collar 10.0 35 06/24/19 17:21 149/67 06/24/19 16:00 Trach Collar 10.0 Trach Collar 10.0 06/24/19 16:00 10.0 35 06/24/19 16:00 97.5 94 24 149/84 (105) 97 06/24/19 15:27 110 06/24/19 13:19 98 Trach Collar 10.0 35 06/24/19 12:00 97.5 95 25 134/74 (94) 99 06/24/19 12:00 Trach Collar 10.0 Trach Collar 10.0 06/24/19 12:00 10.0 35 06/24/19 11:46 86 06/24/19 11:25 163/91 06/24/19 08:00 97.7 101 26 163/91 (115) 98 06/24/19 08:00 10.0 35 06/24/19 08:00 Trach Collar 10.0 Trach Collar 10.0 06/24/19 07:52 94 06/24/19 07:42 90 16 96 Trach Collar 10.0 35 06/24/19 07:42 97 Trach Collar 10.0 35 06/24/19 05:57 163/86 06/24/19 04:00 Trach Collar 10.0 Trach Collar 10.0 06/24/19 04:00 85 06/24/19 04:00 10.0 35 06/24/19 04:00 98.0 95 24 148/82 (104) 98 06/24/19 01:02 98 Trach Collar 10.0 35 06/24/19 00:27 151/80 06/24/19 00:00 98.0 89 24 149/83 (105) 98 06/24/19 00:00 78 06/24/19 00:00 Trach Collar 10.0 Trach Collar 10.0 06/24/19 00:00 10.0 35 Intake and Output 06/23/19 06/24/19 19:00 07:00 Intake Total 980 ml 640 ml Output Total 600 ml 1050 ml Balance 380 ml -410 ml Free Water 200 ml 160 ml Tube Feeding 480 ml 480 ml Other 300 ml Output Urine Total 600 ml 750 ml Stool Total 300 ml # Bowel Movements 100 Laboratory Tests 06/24/19 04:45: White Blood Count 4.6L, Red Blood Count 3.22L, Hemoglobin 10.2L, Hematocrit 29.3L, Mean Corpuscular Volume 91, Mean Corpuscular Hemoglobin 31.8H, Mean Corpuscular Hemoglobin Concent 35.0, Red Cell Distribution Width 15.0H, Platelet Count 89L, Mean Platelet Volume 6.8, Neutrophils (%) (Auto) , Lymphocytes (%) (Auto) , Monocytes (%) (Auto) , Eosinophils (%) (Auto) , Basophils (%) (Auto) , Sodium Level 149H, Potassium Level 3.2L, Chloride Level 115H, Carbon Dioxide Level 25, Anion Gap 9, Blood Urea Nitrogen 92H, Creatinine 3.1H, Estimat Glomerular Filtration Rate , Glucose Level 141H, Calcium Level 7.6L, Phosphorus Level 3.1, Magnesium Level 2.3, Total Bilirubin 0.3, Aspartate Amino Transf (AST/SGOT) 88H, Alanine Aminotransferase (ALT/SGPT) 160H, Alkaline Phosphatase 142H, C-Reactive Protein, Quantitative 5.9H, Pro-B-Type Natriuretic Peptide 3150H, Total Protein 4.9L, Albumin 1.5L, Globulin 3.4, Albumin/Globulin Ratio 0.4L, Random Vancomycin Level 5.0 Height (Feet): 5 Height (Inches): 7.00 Weight (Pounds): 172 Cardiovascular: normal rate Respiratory/Chest: rhonchi - bilaterally Joslyn Wiggins MD Jun 24, 2019 20:52
[2019-06-25] VITALS: BP 144/70
[2019-06-25] MEDS: HydrALAZINE 25mg tab GT SCH ×4 (00:37→17:45)
[2019-06-25 04:00] VITALS: BP 138/69
[2019-06-25 06:26] LABS: ALANINE AMINOTRANSFERASE 144 U/L (12-78); ALBUMIN 1.4 G/DL (3.4-5.0); ALBUMIN/GLOBULIN RATIO 0.4 (1.0-2.7); ALKALINE PHOSPHATASE 141 U/L (46-116); ANION GAP 9 mmol/L (5-15); ASPARTATE AMINO TRANSFERASE 90 U/L (15-37); BILIRUBIN,TOTAL 0.4 MG/DL (0.2-1.0); BLOOD UREA NITROGEN 93 mg/dL (7-18); CALCIUM 7.6 MG/DL (8.5-10.1); CARBON DIOXIDE 24 MMOL/L (21-32); CHLORIDE 118 MMOL/L (98-107); CREATININE 2.9 MG/DL (0.55-1.30); POTASSIUM 3.8 MMOL/L (3.5-5.1); SODIUM 151 MMOL/L (136-145)
[2019-06-25 08:00] VITALS: BP 144/75
[2019-06-25] MEDS: Vitamin D 1000 IU Tab GT SCH (08:27)
[2019-06-25] MEDS: Amiodarone 200mg tab GT SCH (08:28)
--- NOTE | 2019-06-25 09:12 | Pulmonology Progress Note ---
Assessment/Plan Assessment/Plan IMPRESSION AND PLAN: 1. S/p tracheostomy 2. Cellulitis. 3. History of COPD. 4. Hypertension. 5. Afib with RVR; rate controlled 6. Respiratory failure; 7. Renal failure DISCUSSION: 1. S/p trach; 2. Continue present management and care. 3. Continue medications and HHN with atrovent only 4. DC planning 5. Continue trach collar Arsen Whittaker M.D. Subjective Interval Events: None new Constitutional: Reports: no symptoms HEENT: Repors: no symptoms Respiratory: Reports: no symptoms Cardiovascular: Reports: no symptoms Gastrointestinal/Abdominal: Reports: no symptoms Allergies: Coded Allergies: No Known Allergies (Unverified , 05/18/19) Objective Last 24 Hour Vital Signs Date Time Temp Pulse Resp B/P (MAP) Pulse Ox O2 Delivery O2 Flow Rate FiO2 06/25/19 08:00 97.5 91 20 144/75 (98) 99 06/25/19 08:00 91 06/25/19 08:00 Trach Collar 10.0 Trach Collar 10.0 06/25/19 08:00 10.0 35 06/25/19 07:59 98 Trach Collar 10.0 35 06/25/19 07:59 96 20 98 Trach Collar 10.0 35 06/25/19 05:51 163/74 06/25/19 04:00 82 06/25/19 04:00 Trach Collar 10.0 Trach Collar 10.0 06/25/19 04:00 10.0 35 06/25/19 04:00 98.1 90 24 138/69 (92) 98 06/25/19 00:56 99 Trach Collar 10.0 35 06/25/19 00:37 144/70 06/25/19 00:00 Trach Collar 10.0 Trach Collar 10.0 06/25/19 00:00 10.0 35 06/25/19 00:00 98.6 78 24 144/70 (94) 99 06/25/19 00:00 93 06/24/19 20:00 98.0 87 24 157/81 (106) 99 06/24/19 20:00 10.0 35 06/24/19 20:00 Trach Collar 10.0 Trach Collar 10.0 06/24/19 20:00 86 06/24/19 19:28 95 18 95 Trach Collar 10.0 35 06/24/19 19:28 99 Trach Collar 10.0 35 06/24/19 17:21 149/67 06/24/19 16:00 Trach Collar 10.0 Trach Collar 10.0 06/24/19 16:00 10.0 35 06/24/19 16:00 97.5 94 24 149/84 (105) 97 06/24/19 15:27 110 06/24/19 13:19 98 Trach Collar 10.0 35 06/24/19 12:00 97.5 95 25 134/74 (94) 99 06/24/19 12:00 Trach Collar 10.0 Trach Collar 10.0 06/24/19 12:00 10.0 35 06/24/19 11:46 86 06/24/19 11:25 163/91 Intake and Output 06/24/19 06/25/19 19:00 07:00 Intake Total 540 ml 530 ml Output Total 995 ml 825 ml Balance -455 ml -295 ml Free Water 60 ml 50 ml Tube Feeding 480 ml 480 ml Output Urine Total 675 ml 550 ml Stool Total 320 ml 275 ml General Appearance: no acute distress HEENT: normocephalic Respiratory/Chest: chest wall non-tender, lungs clear Cardiovascular: normal peripheral pulses Laboratory Tests 06/25/19 04:40: White Blood Count [Pending], Red Blood Count [Pending], Hemoglobin [Pending], Hematocrit [Pending], Mean Corpuscular Volume [Pending], Mean Corpuscular Hemoglobin [Pending], Mean Corpuscular Hemoglobin Concent [Pending], Red Cell Distribution Width [Pending], Platelet Count [Pending], Mean Platelet Volume [ Pending], Neutrophils (%) (Auto) [Pending], Lymphocytes (%) (Auto) [Pending], Monocytes (%) (Auto) [Pending], Eosinophils (%) (Auto) [Pending], Basophils (%) (Auto) [Pending], Sodium Level 151H, Potassium Level 3.8, Chloride Level 118H, Carbon Dioxide Level 24, Anion Gap 9, Blood Urea Nitrogen 93H, Creatinine 2.9H, Estimat Glomerular Filtration Rate , Glucose Level 148H, Calcium Level 7.6L, Total Bilirubin 0.4, Aspartate Amino Transf (AST/SGOT) 90H, Alanine Aminotransferase (ALT/SGPT) 144H, Alkaline Phosphatase 141H, Total Protein 4.6L , Albumin 1.4L, Globulin 3.2, Albumin/Globulin Ratio 0.4L Current Medications Medications (Trade) Dose Ordered Sig/Phillip Route PRN Reason Start Time Stop Time Status Last Admin Dose Admin Acetaminophen (Tylenol) 500 mg Q4H PRN GT Mild Pain/Temp > 100.5 06/17/19 19:43 07/17/19 19:42 Amiodarone HCl (Cordarone) 200 mg DAILY GT 06/18/19 09:00 07/07/19 16:14 06/25/19 08:28 Clonidine HCl (Catapres Tab) 0.1 mg Q4H PRN GT For High Blood Pressure 06/17/19 19:44 07/17/19 19:43 Hydralazine HCl (Apresoline) 25 mg Q6HR GT 06/22/19 12:00 07/18/19 11:59 06/25/19 05:51 Lansoprazole (Prevacid) 30 mg BID GT 06/18/19 09:00 07/06/19 17:59 06/25/19 08:28 Metoprolol Tartrate (Lopressor) 5 mg Q5MIN X 3 IVP 06/17/19 19:45 07/07/19 16:14 Potassium Chloride (K-Dur) 40 meq TWICE A DAY GT 06/24/19 10:00 07/24/19 09:59 06/25/19 08:28 Prednisone (predniSONE) 10 mg DAILY GT 06/23/19 09:00 07/21/19 08:59 06/25/19 08:28 Vitamin D (Vitamin D) 2,000 intlu DAILY GT 06/23/19 09:00 07/07/19 12:59 06/25/19 08:27 Arsen Whittaker MD Jun 25, 2019 09:12
--- NOTE | 2019-06-25 09:48 | General Progress Note ---
Assessment/Plan Problem List: (1) Dysphagia ICD Codes: R13.10 - Dysphagia, unspecified SNOMED: 43282075, 004142075 (2) Anemia ICD Codes: D64.9 - Anemia, unspecified SNOMED: 619749868 (3) Hypothyroidism ICD Codes: E03.9 - Hypothyroidism, unspecified SNOMED: 42005027 (4) Thrombus ICD Codes: I82.90 - Acute embolism and thrombosis of unspecified vein SNOMED: 87559470, 13985858, 617354409, 536468188 (5) A-fib ICD Codes: I48.91 - Unspecified atrial fibrillation SNOMED: 69859365 Status: progressing, unchanged Assessment/Plan: Assessment/Plan Problems: (1) Anemia ICD Codes: D64.9 - Anemia, unspecified SNOMED: 421763236 (2) Dysphagia ICD Codes: R13.10 - Dysphagia, unspecified SNOMED: 07292722, 202310662 Status: stable s/p PEG 06/13/19 GTF GT site care prn transfusions ppi fu pulm fu labs abx per ID repeat LFTS>>> stable on HD Subjective ROS Limited/Unobtainable: No Allergies: Coded Allergies: No Known Allergies (Unverified , 05/18/19) Subjective coded today Objective Last 24 Hour Vital Signs Date Time Temp Pulse Resp B/P (MAP) Pulse Ox O2 Delivery O2 Flow Rate FiO2 06/25/19 08:00 97.5 91 20 144/75 (98) 99 06/25/19 08:00 91 06/25/19 08:00 Trach Collar 10.0 Trach Collar 10.0 06/25/19 08:00 10.0 35 06/25/19 07:59 98 Trach Collar 10.0 35 06/25/19 07:59 96 20 98 Trach Collar 10.0 35 06/25/19 05:51 163/74 06/25/19 04:00 82 06/25/19 04:00 Trach Collar 10.0 Trach Collar 10.0 06/25/19 04:00 10.0 35 06/25/19 04:00 98.1 90 24 138/69 (92) 98 06/25/19 00:56 99 Trach Collar 10.0 35 06/25/19 00:37 144/70 06/25/19 00:00 Trach Collar 10.0 Trach Collar 10.0 06/25/19 00:00 10.0 35 06/25/19 00:00 98.6 78 24 144/70 (94) 99 06/25/19 00:00 93 06/24/19 20:00 98.0 87 24 157/81 (106) 99 06/24/19 20:00 10.0 35 06/24/19 20:00 Trach Collar 10.0 Trach Collar 10.0 06/24/19 20:00 86 06/24/19 19:28 95 18 95 Trach Collar 10.0 35 06/24/19 19:28 99 Trach Collar 10.0 35 06/24/19 17:21 149/67 06/24/19 16:00 Trach Collar 10.0 Trach Collar 10.0 06/24/19 16:00 10.0 35 06/24/19 16:00 97.5 94 24 149/84 (105) 97 06/24/19 15:27 110 06/24/19 13:19 98 Trach Collar 10.0 35 06/24/19 12:00 97.5 95 25 134/74 (94) 99 06/24/19 12:00 Trach Collar 10.0 Trach Collar 10.0 06/24/19 12:00 10.0 35 06/24/19 11:46 86 06/24/19 11:25 163/91 Intake and Output 06/24/19 06/25/19 19:00 07:00 Intake Total 540 ml 530 ml Output Total 995 ml 825 ml Balance -455 ml -295 ml Free Water 60 ml 50 ml Tube Feeding 480 ml 480 ml Output Urine Total 675 ml 550 ml Stool Total 320 ml 275 ml Laboratory Tests 06/25/19 04:40: Sodium Level 151H, Potassium Level 3.8, Chloride Level 118H, Carbon Dioxide Level 24, Anion Gap 9, Blood Urea Nitrogen 93H, Creatinine 2.9H, Estimat Glomerular Filtration Rate , Glucose Level 148H, Calcium Level 7.6L, Total Bilirubin 0.4, Aspartate Amino Transf (AST/SGOT) 90H, Alanine Aminotransferase ( ALT/SGPT) 144H, Alkaline Phosphatase 141H, Total Protein 4.6L, Albumin 1.4L, Globulin 3.2, Albumin/Globulin Ratio 0.4L 06/25/19 09:30: White Blood Count [Pending], Red Blood Count [Pending], Hemoglobin [Pending], Hematocrit [Pending], Mean Corpuscular Volume [Pending], Mean Corpuscular Hemoglobin [Pending], Mean Corpuscular Hemoglobin Concent [Pending], Red Cell Distribution Width [Pending], Platelet Count [Pending], Mean Platelet Volume [ Pending], Neutrophils (%) (Auto) [Pending], Lymphocytes (%) (Auto) [Pending], Monocytes (%) (Auto) [Pending], Eosinophils (%) (Auto) [Pending], Basophils (%) (Auto) [Pending] Height (Feet): 5 Height (Inches): 7.00 Weight (Pounds): 175 General Appearance: lethargic EENT: normal ENT inspection Neck: supple Cardiovascular: normal rate Respiratory/Chest: decreased breath sounds Abdomen: normal bowel sounds, non tender, soft Extremities: non-tender Valentino Lino MD Jun 25, 2019 09:48
[2019-06-25 09:57] LABS: HEMATOCRIT 28.7 % (42.0-52.0); HEMOGLOBIN 9.8 G/DL (14.2-18.0); MEAN CORPUSCULAR VOLUME 91 FL (80-99); PLATELET COUNT 92 K/UL (150-450); RED BLOOD COUNT 3.17 M/UL (4.70-6.10); WHITE BLOOD COUNT 3.7 K/UL (4.8-10.8)
[2019-06-25 12:00] VITALS: BP 140/74
--- NOTE | 2019-06-25 12:43 | Nephrology Progress Note ---
Assessment/Plan Problem List: (1) Renal failure (ARF), acute on chronic Assessment: Cr rising (2) Cellulitis of upper extremity (3) A-fib (4) Pneumonia (5) UTI (urinary tract infection) (6) Anemia Assessment: worsened (7) Hypothyroidism Assessment - KIMO on CKD - Urinary tract infection. - Anemia- - Dehydration. - Cellulitis of Upper extremity - HTN Plan no need for HD- likely for forseeable future remove dialysis cath dialysis last 06/14 - taper steroids as possible on hydralazine Trach 06/16 ! DC Midodrine DC IV IV Calcium and PO Vit D ad needed Transfuse one unit PRBcs in ICU- intubated BP meds and Mind altering meds discontinued On midodrine check vanco levels - hold vanco doses previously: Per cardiology Anemia kumari- Avoid Nephrotoxics Per ID Allow CHANDA inhibitor to continue as long as renal function does not worsen. PICC line has been removed. CXR: Increased right pleural effusion and similar left pleural effusion. Increased interstitial and hazy opacities throughout the lungs. Subjective ROS Limited/Unobtainable: Yes Objective Objective Last 24 Hour Vital Signs Date Time Temp Pulse Resp B/P (MAP) Pulse Ox O2 Delivery O2 Flow Rate FiO2 06/25/19 12:00 Trach Collar 10.0 Trach Collar 10.0 06/25/19 12:00 98.2 89 20 140/74 (96) 98 06/25/19 12:00 10.0 35 06/25/19 08:00 97.5 91 20 144/75 (98) 99 06/25/19 08:00 91 06/25/19 08:00 Trach Collar 10.0 Trach Collar 10.0 06/25/19 08:00 10.0 35 06/25/19 07:59 98 Trach Collar 10.0 35 06/25/19 07:59 96 20 98 Trach Collar 10.0 35 06/25/19 05:51 163/74 06/25/19 04:00 82 06/25/19 04:00 Trach Collar 10.0 Trach Collar 10.0 06/25/19 04:00 10.0 35 06/25/19 04:00 98.1 90 24 138/69 (92) 98 06/25/19 00:56 99 Trach Collar 10.0 35 06/25/19 00:37 144/70 06/25/19 00:00 Trach Collar 10.0 Trach Collar 10.0 06/25/19 00:00 10.0 35 06/25/19 00:00 98.6 78 24 144/70 (94) 99 06/25/19 00:00 93 06/24/19 20:00 98.0 87 24 157/81 (106) 99 06/24/19 20:00 10.0 35 06/24/19 20:00 Trach Collar 10.0 Trach Collar 10.0 06/24/19 20:00 86 06/24/19 19:28 95 18 95 Trach Collar 10.0 35 06/24/19 19:28 99 Trach Collar 10.0 35 06/24/19 17:21 149/67 06/24/19 16:00 Trach Collar 10.0 Trach Collar 10.0 06/24/19 16:00 10.0 35 06/24/19 16:00 97.5 94 24 149/84 (105) 97 06/24/19 15:27 110 06/24/19 13:19 98 Trach Collar 10.0 35 Intake and Output 06/24/19 06/25/19 18:59 06:59 Intake Total 540 ml 530 ml Output Total 995 ml 825 ml Balance -455 ml -295 ml Free Water 60 ml 50 ml Tube Feeding 480 ml 480 ml Output Urine Total 675 ml 550 ml Stool Total 320 ml 275 ml Laboratory Tests 06/25/19 04:40: Sodium Level 151H, Potassium Level 3.8, Chloride Level 118H, Carbon Dioxide Level 24, Anion Gap 9, Blood Urea Nitrogen 93H, Creatinine 2.9H, Estimat Glomerular Filtration Rate , Glucose Level 148H, Calcium Level 7.6L, Total Bilirubin 0.4, Aspartate Amino Transf (AST/SGOT) 90H, Alanine Aminotransferase ( ALT/SGPT) 144H, Alkaline Phosphatase 141H, Total Protein 4.6L, Albumin 1.4L, Globulin 3.2, Albumin/Globulin Ratio 0.4L 06/25/19 09:30: White Blood Count 3.7L, Red Blood Count 3.17L, Hemoglobin 9.8L, Hematocrit 28.7L , Mean Corpuscular Volume 91, Mean Corpuscular Hemoglobin 30.9, Mean Corpuscular Hemoglobin Concent 34.1, Red Cell Distribution Width 15.0H, Platelet Count 92L, Mean Platelet Volume 6.0L, Neutrophils (%) (Auto) , Lymphocytes (%) (Auto) , Monocytes (%) (Auto) , Eosinophils (%) (Auto) , Basophils (%) (Auto) , Differential Total Cells Counted 100, Neutrophils % ( Manual) 80H, Lymphocytes % (Manual) 14L, Monocytes % (Manual) 4, Eosinophils % ( Manual) 2, Basophils % (Manual) 0, Band Neutrophils 0, Platelet Estimate DecreasedL, Platelet Morphology Normal, Anisocytosis 1+ Height (Feet): 5 Height (Inches): 7.00 Weight (Pounds): 175 General Appearance: no apparent distress EENT: other - trach Cardiovascular: tachycardia Respiratory/Chest: decreased breath sounds Abdomen: distended Objective no change Reinier Mera MD Jun 25, 2019 12:43
--- NOTE | 2019-06-25 12:53 | Infectious Diseases Prog Note ---
Assessment/Plan Assessment/Plan 84 yo male with PMHx of HTN who was sent to the ED on 05/18/19 from his longterm for possible picc line infection. OM - Let foot, SP rx PNA , sp rx Acute respiratory failure s/p intubation 05/27, s/p trach 06/16/1906/10 CXR: Bilateral upper lobe interstitial opacities and volume loss are unchanged. Diffuse more acute appearing parenchymal disease throughout the left mid and lower lung are unchanged. CXR - Some LLL Atelectasis vs PNA, Nodules CT 05/20/19 - Bilateral upper lobe infiltrates worse on the right. Consider pneumonia. Bilateral pleural effusions moderate in size Sp Cx Marily Leukocytosis, mild recurrent (on steroids)- resolved No fever Swelling around PICC line, SP Minimal to no erythema and no purulent drainage Not likely to be infected Blood Cx 05/18/19 - NGTD PICC Tip Cx 05/18/19 - NGTD PICC line removed 05/18/19 HTN PLAN - Continue to monitor off abx -06/23 SP Daptomycin (completed OM course for left foot) - 06/10 SP Zosyn #15 - 05/28/19 SP Vancomycin per pharmacy - Stopped for increasing Cr - 05/27/19 SP Levofloxacin #5 - Monitor CBC and Temps -trach care -aspiration precautions -wound care per hospital protocol Thank you for this consult. [facility] will continue to follow the patient with you during this hospitalization. Subjective Allergies: Coded Allergies: No Known Allergies (Unverified , 05/18/19) Subjective afebrile no leukocytosis off abx Cr improving Objective Vital Signs Last 24 Hour Vital Signs Date Time Temp Pulse Resp B/P (MAP) Pulse Ox O2 Delivery O2 Flow Rate FiO2 06/25/19 12:00 Trach Collar 10.0 Trach Collar 10.0 06/25/19 12:00 98.2 89 20 140/74 (96) 98 06/25/19 12:00 10.0 35 06/25/19 08:00 97.5 91 20 144/75 (98) 99 06/25/19 08:00 91 06/25/19 08:00 Trach Collar 10.0 Trach Collar 10.0 06/25/19 08:00 10.0 35 06/25/19 07:59 98 Trach Collar 10.0 35 06/25/19 07:59 96 20 98 Trach Collar 10.0 35 06/25/19 05:51 163/74 06/25/19 04:00 82 06/25/19 04:00 Trach Collar 10.0 Trach Collar 10.0 06/25/19 04:00 10.0 35 06/25/19 04:00 98.1 90 24 138/69 (92) 98 06/25/19 00:56 99 Trach Collar 10.0 35 06/25/19 00:37 144/70 06/25/19 00:00 Trach Collar 10.0 Trach Collar 10.0 06/25/19 00:00 10.0 35 06/25/19 00:00 98.6 78 24 144/70 (94) 99 06/25/19 00:00 93 06/24/19 20:00 98.0 87 24 157/81 (106) 99 06/24/19 20:00 10.0 35 06/24/19 20:00 Trach Collar 10.0 Trach Collar 10.0 06/24/19 20:00 86 06/24/19 19:28 95 18 95 Trach Collar 10.0 35 06/24/19 19:28 99 Trach Collar 10.0 35 06/24/19 17:21 149/67 06/24/19 16:00 Trach Collar 10.0 Trach Collar 10.0 06/24/19 16:00 10.0 35 06/24/19 16:00 97.5 94 24 149/84 (105) 97 06/24/19 15:27 110 06/24/19 13:19 98 Trach Collar 10.0 35 Height (Feet): 5 Height (Inches): 7.00 Weight (Pounds): 175 Objective General Appearance: no apparent distress, lethargic Cardiovascular: normal rate Respiratory/Chest: decreased breath sounds Abdomen: distended Laboratory Tests Test 06/25/19 04:40 06/25/19 09:30 Sodium Level 151 MMOL/L (136-145) H Potassium Level 3.8 MMOL/L (3.5-5.1) Chloride Level 118 MMOL/L (98-107) H Carbon Dioxide Level 24 MMOL/L (21-32) Anion Gap 9 mmol/L (5-15) Blood Urea Nitrogen 93 mg/dL (7-18) H Creatinine 2.9 MG/DL (0.55-1.30) H Estimat Glomerular Filtration Rate mL/min (>60) Glucose Level 148 MG/DL (74-106) H Calcium Level 7.6 MG/DL (8.5-10.1) L Total Bilirubin 0.4 MG/DL (0.2-1.0) Aspartate Amino Transf (AST/SGOT) 90 U/L (15-37) H Alanine Aminotransferase (ALT/SGPT) 144 U/L (12-78) H Alkaline Phosphatase 141 U/L (46-116) H Total Protein 4.6 G/DL (6.4-8.2) L Albumin 1.4 G/DL (3.4-5.0) L Globulin 3.2 g/dL Albumin/Globulin Ratio 0.4 (1.0-2.7) L White Blood Count 3.7 K/UL (4.8-10.8) L Red Blood Count 3.17 M/UL (4.70-6.10) L Hemoglobin 9.8 G/DL (14.2-18.0) L Hematocrit 28.7 % (42.0-52.0) L Mean Corpuscular Volume 91 FL (80-99) Mean Corpuscular Hemoglobin 30.9 PG (27.0-31.0) Mean Corpuscular Hemoglobin Concent 34.1 G/DL (32.0-36.0) Red Cell Distribution Width 15.0 % (11.6-14.8) H Platelet Count 92 K/UL (150-450) L Mean Platelet Volume 6.0 FL (6.5-10.1) L Neutrophils (%) (Auto) % (45.0-75.0) Lymphocytes (%) (Auto) % (20.0-45.0) Monocytes (%) (Auto) % (1.0-10.0) Eosinophils (%) (Auto) % (0.0-3.0) Basophils (%) (Auto) % (0.0-2.0) Differential Total Cells Counted 100 Neutrophils % (Manual) 80 % (45-75) H Lymphocytes % (Manual) 14 % (20-45) L Monocytes % (Manual) 4 % (1-10) Eosinophils % (Manual) 2 % (0-3) Basophils % (Manual) 0 % (0-2) Band Neutrophils 0 % (0-8) Platelet Estimate Decreased L Platelet Morphology Normal Anisocytosis 1+ Current Medications Medications (Trade) Dose Ordered Sig/Phillip Route PRN Reason Start Time Stop Time Status Last Admin Dose Admin Acetaminophen (Tylenol) 500 mg Q4H PRN GT Mild Pain/Temp > 100.5 06/17/19 19:43 07/17/19 19:42 Amiodarone HCl (Cordarone) 200 mg DAILY GT 06/18/19 09:00 07/07/19 16:14 06/25/19 08:28 Clonidine HCl (Catapres Tab) 0.1 mg Q4H PRN GT For High Blood Pressure 06/17/19 19:44 07/17/19 19:43 Dextrose 500 ml @ 500 mls/hr ONCE ONCE IV 06/25/19 12:45 06/25/19 13:44 Hydralazine HCl (Apresoline) 25 mg Q6HR GT 06/22/19 12:00 07/18/19 11:59 06/25/19 05:51 Lansoprazole (Prevacid) 30 mg BID GT 06/18/19 09:00 07/06/19 17:59 06/25/19 08:28 Metoprolol Tartrate (Lopressor) 5 mg Q5MIN X 3 IVP 06/17/19 19:45 07/07/19 16:14 Potassium Chloride (K-Dur) 40 meq TWICE A DAY GT 06/24/19 10:00 07/24/19 09:59 06/25/19 08:28 Prednisone (predniSONE) 10 mg DAILY GT 06/23/19 09:00 07/21/19 08:59 06/25/19 08:28 Vitamin D (Vitamin D) 2,000 intlu DAILY GT 06/23/19 09:00 07/07/19 12:59 06/25/19 08:27 Latha Lowe M.D. Jun 25, 2019 12:53
[2019-06-25] MEDS ORDERED: D5W 1000ml 500 ML IV ONE (13:05)
[2019-06-25] MEDS ORDERED: D5W 500 ML IV ONE ×2 (14:15)
--- NOTE | 2019-06-25 14:16 | Hematology/Onc Progress Note ---
Assessment/Plan Assessment/Plan # Anemia of chronic disease due to underlying chronic medical issues, multifactorial v Gi bleed --> Anemia workup has been reviewed, ferritin >1k --> No evidence of hemolysis is noted, peripheral smear has been reviewed. --> Hgb goal >7. Transfuse prn. --> Epogen or iron at this time is not particularly indicated --> Medications have been reviewed --> low threshold for gi evaluation in case has occult + --> hgb trend: 9.3-->9.7-->8.1-->7.6-->8-->9.4-->9.2-->7.5-->9.3-->8-->8.1-->8.6 -->7.8-->8.3-->7.6-->8.2-->8.6-->10.4-->10.6-->11.3-->10.2-->9.8 --> transf 05/28/19 with 1 unit prbc, 1 unit on 06/03, again on 06/18 --> transfusion is a emergency, no family, no poa, is okay to transfuse # Right upper arm extremity axillary vein dvt --> agree to continue eliquis --> continue for total of minimum of 3 months --> rescan arm in 3 mo # Thrombocytopenia is due to infection, i.e. cellulitis of upper extremity, likely picc line infection --> as per id on ax --> picc off --> levoflox/vanc-->zosyn/vanc--> zosyn-->dapto/zosyn --> plt trend 208-->132-->146k-->159-->217-->211-->145-->117-->145-->111-->88--> 90-->89-->92 # Respiratory failure s/p vent --> has been failing weaning --> trach 06/16 # KIMO on CKD --> per Dr. Mera --> HD as needed # Pneumonia --> abx per id # Dehydration. --> goal of euvolemia # Paroxysmal Atrial fibrillation with rapid ventricular response was on amiodarone gtt, now in sinus rhythm. --> per cards On PO amiodarone 200 bid, Lopressor 25 bid # Dysphagia with ng tube --> s/p peg 06/13 # Septic shock --> has required icu admission, and pressor # Dvt ppx eliquis--> continued The timing of this note does not necessarily reflect the time of the patient was seen. Greatly appreciate consultation. Subjective Allergies: Coded Allergies: No Known Allergies (Unverified , 05/18/19) Subjective 05/24: awake and alert, v mask, labs reviewed, apixaban 05/25: as per gi, ngt and eliquis tolerated 05/26: pending clearance but still with ng and nonrebreather 05/27: hypoxic yesterday, deteriorated, coded, now intubated, icu, labs noted 05/28: icu, levophed gtt, hgb 7.6, repeat cbc 05/29: remains in the icu, given prbc last night, no bleeding 05/30: no events, no bleeding, ++ fredo and on pressor 05/31: intubated, bp better on pressor, no bleeding, coag ordered 06/02: reamins ill appearing, on vent, labs noted, on vent, poorly responsive 06/03: no events, no bleeding, labs noted, dw surgery, and Rn, monitoring plt 06/04: tolerating tube feeds, labs noted, in the icu 06/05: restraints, cxr unchanged, anticoagulants on hold until further notice 06/06: no events, no bleeding, no night sweats, no bleeding 06/08: icu, unable to wean per resp, apixaban restarted, labs reviewed 06/09: minimally responsive, on vent and gt feeds, no bleeding 06/10: no acute events, failed to wean, hd for today, h/h stable 06/11: remains altered, may need trach, coags ordered, no bleeding currently 06/12: no events, no bleeding, trach pending, no major changes 06/13: icu, weaning failed, egd pending, hgb 7.6, repeat cbc 06/15: no events, no bleeding, is more responsive, labs reviewed, no changes, on pressor 06/16: remains on vent, no bleeding, on pressors, labs noted 06/17: now is s/p trach as well, on vent, labs reviewed, jeison Huang 06/18: no new events, transferred out of the icu, s/p peg and trach 06/19: s/p prbc, hgb improved to 10.4, seen by rt, no resp distress 06/20: remains confused, getting amio per cards, hgb better, psych recs noted 06/22: sdu, no acute events, ferritin >1k, hep panel negative 06/23: no major changes, labs are reviewed, jeison Franco, hgb stable 06/24: no overnight events, labs reviewed, off abx, on steroids 06/25: no acute events, no leukocytosis, afebrile h/h stable Objective Objective Current Medications Medications (Trade) Dose Ordered Sig/Phillip Route PRN Reason Start Time Stop Time Status Last Admin Dose Admin Acetaminophen (Tylenol) 500 mg Q4H PRN GT Mild Pain/Temp > 100.5 06/17/19 19:43 07/17/19 19:42 Amiodarone HCl (Cordarone) 200 mg DAILY GT 06/18/19 09:00 07/07/19 16:14 06/25/19 08:28 Clonidine HCl (Catapres Tab) 0.1 mg Q4H PRN GT For High Blood Pressure 06/17/19 19:44 07/17/19 19:43 Dextrose 500 ml @ 500 mls/hr ONCE ONCE IV 06/25/19 14:15 06/25/19 15:14 Hydralazine HCl (Apresoline) 25 mg Q6HR GT 06/22/19 12:00 07/18/19 11:59 06/25/19 12:56 Lansoprazole (Prevacid) 30 mg BID GT 06/18/19 09:00 07/06/19 17:59 06/25/19 08:28 Metoprolol Tartrate (Lopressor) 5 mg Q5MIN X 3 IVP 06/17/19 19:45 07/07/19 16:14 Potassium Chloride (K-Dur) 40 meq TWICE A DAY GT 06/24/19 10:00 07/24/19 09:59 06/25/19 08:28 Prednisone (predniSONE) 10 mg DAILY GT 06/23/19 09:00 07/21/19 08:59 06/25/19 08:28 Vitamin D (Vitamin D) 2,000 intlu DAILY GT 06/23/19 09:00 07/07/19 12:59 06/25/19 08:27 Last 24 Hour Vital Signs Date Time Temp Pulse Resp B/P (MAP) Pulse Ox O2 Delivery O2 Flow Rate FiO2 06/25/19 13:25 97 Trach Collar 10.0 35 06/25/19 12:56 140/74 06/25/19 12:00 Trach Collar 10.0 Trach Collar 10.0 06/25/19 12:00 98.2 89 20 140/74 (96) 98 06/25/19 12:00 10.0 35 06/25/19 08:00 97.5 91 20 144/75 (98) 99 06/25/19 08:00 91 06/25/19 08:00 Trach Collar 10.0 Trach Collar 10.0 06/25/19 08:00 10.0 35 06/25/19 07:59 98 Trach Collar 10.0 35 06/25/19 07:59 96 20 98 Trach Collar 10.0 35 06/25/19 05:51 163/74 06/25/19 04:00 82 06/25/19 04:00 Trach Collar 10.0 Trach Collar 10.0 06/25/19 04:00 10.0 35 06/25/19 04:00 98.1 90 24 138/69 (92) 98 06/25/19 00:56 99 Trach Collar 10.0 35 06/25/19 00:37 144/70 06/25/19 00:00 Trach Collar 10.0 Trach Collar 10.0 06/25/19 00:00 10.0 35 06/25/19 00:00 98.6 78 24 144/70 (94) 99 06/25/19 00:00 93 06/24/19 20:00 98.0 87 24 157/81 (106) 99 06/24/19 20:00 10.0 35 06/24/19 20:00 Trach Collar 10.0 Trach Collar 10.0 06/24/19 20:00 86 06/24/19 19:28 95 18 95 Trach Collar 10.0 35 06/24/19 19:28 99 Trach Collar 10.0 35 06/24/19 17:21 149/67 06/24/19 16:00 Trach Collar 10.0 Trach Collar 10.0 06/24/19 16:00 10.0 35 06/24/19 16:00 97.5 94 24 149/84 (105) 97 06/24/19 15:27 110 06/24/19 13:19 98 Trach Collar 10.0 35 06/24/19 12:00 97.5 95 25 134/74 (94) 99 06/24/19 12:00 Trach Collar 10.0 Trach Collar 10.0 06/24/19 12:00 10.0 35 06/24/19 11:46 86 06/24/19 11:25 163/91 06/24/19 08:00 97.7 101 26 163/91 (115) 98 06/24/19 08:00 10.0 35 06/24/19 08:00 Trach Collar 10.0 Trach Collar 10.0 06/24/19 07:52 94 06/24/19 07:42 90 16 96 Trach Collar 10.0 35 06/24/19 07:42 97 Trach Collar 10.0 35 06/24/19 05:57 163/86 06/24/19 04:00 Trach Collar 10.0 Trach Collar 10.0 06/24/19 04:00 85 06/24/19 04:00 10.0 35 06/24/19 04:00 98.0 95 24 148/82 (104) 98 06/24/19 01:02 98 Trach Collar 10.0 35 06/24/19 00:27 151/80 06/24/19 00:00 98.0 89 24 149/83 (105) 98 06/24/19 00:00 78 06/24/19 00:00 Trach Collar 10.0 Trach Collar 10.0 06/24/19 00:00 10.0 35 06/23/19 20:00 Trach Collar 10.0 Trach Collar 10.0 06/23/19 20:00 10.0 35 06/23/19 20:00 76 06/23/19 20:00 98.0 83 24 153/77 (102) 98 06/23/19 19:14 98 Trach Collar 10.0 35 06/23/19 19:13 83 20 98 Trach Collar 10.0 35 06/23/19 18:43 140/75 06/23/19 16:08 10.0 35 06/23/19 16:02 Trach Collar 10.0 Trach Collar 10.0 06/23/19 16:00 97.7 92 24 140/75 (96) 98 06/23/19 16:00 111 Intake and Output 06/24/19 06/25/19 19:00 07:00 Intake Total 540 ml 530 ml Output Total 995 ml 825 ml Balance -455 ml -295 ml Free Water 60 ml 50 ml Tube Feeding 480 ml 480 ml Output Urine Total 675 ml 550 ml Stool Total 320 ml 275 ml Labs Test 06/23/19 04:55 06/24/19 04:45 06/25/19 04:40 06/25/19 09:30 White Blood Count 7.0 K/UL (4.8-10.8) 4.6 K/UL (4.8-10.8) 3.7 K/UL (4.8-10.8) Red Blood Count 3.64 M/UL (4.70-6.10) 3.22 M/UL (4.70-6.10) 3.17 M/UL (4.70-6.10) Hemoglobin 11.3 G/DL (14.2-18.0) 10.2 G/DL (14.2-18.0) 9.8 G/DL (14.2-18.0) Hematocrit 33.2 % (42.0-52.0) 29.3 % (42.0-52.0) 28.7 % (42.0-52.0) Mean Corpuscular Volume 91 FL (80-99) 91 FL (80-99) 91 FL (80-99) Mean Corpuscular Hemoglobin 31.0 PG (27.0-31.0) 31.8 PG (27.0-31.0) 30.9 PG (27.0-31.0) Mean Corpuscular Hemoglobin Concent 34.0 G/DL (32.0-36.0) 35.0 G/DL (32.0-36.0) 34.1 G/DL (32.0-36.0) Red Cell Distribution Width 14.6 % (11.6-14.8) 15.0 % (11.6-14.8) 15.0 % (11.6-14.8) Platelet Count 90 K/UL (150-450) 89 K/UL (150-450) 92 K/UL (150-450) Mean Platelet Volume 6.9 FL (6.5-10.1) 6.8 FL (6.5-10.1) 6.0 FL (6.5-10.1) Neutrophils (%) (Auto) % (45.0-75.0) % (45.0-75.0) % (45.0-75.0) Lymphocytes (%) (Auto) % (20.0-45.0) % (20.0-45.0) % (20.0-45.0) Monocytes (%) (Auto) % (1.0-10.0) % (1.0-10.0) % (1.0-10.0) Eosinophils (%) (Auto) % (0.0-3.0) % (0.0-3.0) % (0.0-3.0) Basophils (%) (Auto) % (0.0-2.0) % (0.0-2.0) % (0.0-2.0) Prothrombin Time 11.9 SEC (9.30-11.50) Prothromb Time International Ratio 1.1 (0.9-1.1) Activated Partial Thromboplast Time 25 SEC (23-33) Sodium Level 149 MMOL/L (136-145) 149 MMOL/L (136-145) 151 MMOL/L (136-145) Potassium Level 3.1 MMOL/L (3.5-5.1) 3.2 MMOL/L (3.5-5.1) 3.8 MMOL/L (3.5-5.1) Chloride Level 113 MMOL/L (98-107) 115 MMOL/L (98-107) 118 MMOL/L (98-107) Carbon Dioxide Level 28 MMOL/L (21-32) 25 MMOL/L (21-32) 24 MMOL/L (21-32) Anion Gap 8 mmol/L (5-15) 9 mmol/L (5-15) 9 mmol/L (5-15) Blood Urea Nitrogen 95 mg/dL (7-18) 92 mg/dL (7-18) 93 mg/dL (7-18) Creatinine 3.4 MG/DL (0.55-1.30) 3.1 MG/DL (0.55-1.30) 2.9 MG/DL (0.55-1.30) Estimat Glomerular Filtration Rate mL/min (>60) mL/min (>60) mL/min (>60) Glucose Level 133 MG/DL (74-106) 141 MG/DL (74-106) 148 MG/DL (74-106) Calcium Level 7.6 MG/DL (8.5-10.1) 7.6 MG/DL (8.5-10.1) 7.6 MG/DL (8.5-10.1) Phosphorus Level 3.5 MG/DL (2.5-4.9) 3.1 MG/DL (2.5-4.9) Total Bilirubin 0.3 MG/DL (0.2-1.0) 0.3 MG/DL (0.2-1.0) 0.4 MG/DL (0.2-1.0) Aspartate Amino Transf (AST/SGOT) 119 U/L (15-37) 88 U/L (15-37) 90 U/L (15-37) Alanine Aminotransferase (ALT/SGPT) 187 U/L (12-78) 160 U/L (12-78) 144 U/L (12-78) Alkaline Phosphatase 158 U/L (46-116) 142 U/L (46-116) 141 U/L (46-116) Total Protein 5.2 G/DL (6.4-8.2) 4.9 G/DL (6.4-8.2) 4.6 G/DL (6.4-8.2) Albumin 1.6 G/DL (3.4-5.0) 1.5 G/DL (3.4-5.0) 1.4 G/DL (3.4-5.0) Globulin 3.6 g/dL 3.4 g/dL 3.2 g/dL Albumin/Globulin Ratio 0.4 (1.0-2.7) 0.4 (1.0-2.7) 0.4 (1.0-2.7) Random Vancomycin Level 5.7 ug/mL 5.0 ug/mL Magnesium Level 2.3 MG/DL (1.8-2.4) C-Reactive Protein, Quantitative 5.9 mg/dL (0.00-0.90) Pro-B-Type Natriuretic Peptide 3150 pg/mL (0-125) Differential Total Cells Counted 100 Neutrophils % (Manual) 80 % (45-75) Lymphocytes % (Manual) 14 % (20-45) Monocytes % (Manual) 4 % (1-10) Eosinophils % (Manual) 2 % (0-3) Basophils % (Manual) 0 % (0-2) Band Neutrophils 0 % (0-8) Platelet Estimate Decreased Platelet Morphology Normal Anisocytosis 1+ Height (Feet): 5 Height (Inches): 7.00 Weight (Pounds): 175 Objective PE: Vitals: reviewed General Appearance: NAD HEENT: normocephalic, atraumatic Neck: non-tender, normal alignment Respiratory/Chest: VENT++ ++ trach Cardiovascular/Chest: normal peripheral pulses, normal rate Abdomen: normal bowel sounds, soft, nontender ++ peg Extremities: normal range of motion ++ right arm swelling Suleman Addison MD Jun 25, 2019 14:16
--- NOTE | 2019-06-25 14:47 | Surgery Progress Note ---
Surgery Progress Note Subjective Procedure Performed Right internal jugular temporary hemodialysis catheter removal Additional Comments ariana cute events labs noted exam stable site clean Objective Last 24 Hour Vital Signs Date Time Temp Pulse Resp B/P (MAP) Pulse Ox O2 Delivery O2 Flow Rate FiO2 06/25/19 13:25 97 Trach Collar 10.0 35 06/25/19 12:56 140/74 06/25/19 12:00 95 06/25/19 12:00 Trach Collar 10.0 Trach Collar 10.0 06/25/19 12:00 98.2 89 20 140/74 (96) 98 06/25/19 12:00 10.0 35 06/25/19 08:00 97.5 91 20 144/75 (98) 99 06/25/19 08:00 91 06/25/19 08:00 Trach Collar 10.0 Trach Collar 10.0 06/25/19 08:00 10.0 35 06/25/19 07:59 98 Trach Collar 10.0 35 06/25/19 07:59 96 20 98 Trach Collar 10.0 35 06/25/19 05:51 163/74 06/25/19 04:00 82 06/25/19 04:00 Trach Collar 10.0 Trach Collar 10.0 06/25/19 04:00 10.0 35 06/25/19 04:00 98.1 90 24 138/69 (92) 98 06/25/19 00:56 99 Trach Collar 10.0 35 06/25/19 00:37 144/70 06/25/19 00:00 Trach Collar 10.0 Trach Collar 10.0 06/25/19 00:00 10.0 35 06/25/19 00:00 98.6 78 24 144/70 (94) 99 06/25/19 00:00 93 06/24/19 20:00 98.0 87 24 157/81 (106) 99 06/24/19 20:00 10.0 35 06/24/19 20:00 Trach Collar 10.0 Trach Collar 10.0 06/24/19 20:00 86 06/24/19 19:28 95 18 95 Trach Collar 10.0 35 06/24/19 19:28 99 Trach Collar 10.0 35 06/24/19 17:21 149/67 06/24/19 16:00 Trach Collar 10.0 Trach Collar 10.0 06/24/19 16:00 10.0 35 06/24/19 16:00 97.5 94 24 149/84 (105) 97 06/24/19 15:27 110 I&O Intake and Output 06/24/19 06/25/19 19:00 07:00 Intake Total 540 ml 530 ml Output Total 995 ml 825 ml Balance -455 ml -295 ml Free Water 60 ml 50 ml Tube Feeding 480 ml 480 ml Output Urine Total 675 ml 550 ml Stool Total 320 ml 275 ml Dressing: dry Wound: other Drains: other Cardiovascular: RSR Respiratory: clear, decreased breath sounds Abdomen: soft, present bowel sounds Extremities: no cyanosis Laboratory Tests Test 06/25/19 04:40 06/25/19 09:30 Sodium Level 151 MMOL/L (136-145) H Potassium Level 3.8 MMOL/L (3.5-5.1) Chloride Level 118 MMOL/L (98-107) H Carbon Dioxide Level 24 MMOL/L (21-32) Anion Gap 9 mmol/L (5-15) Blood Urea Nitrogen 93 mg/dL (7-18) H Creatinine 2.9 MG/DL (0.55-1.30) H Estimat Glomerular Filtration Rate mL/min (>60) Glucose Level 148 MG/DL (74-106) H Calcium Level 7.6 MG/DL (8.5-10.1) L Total Bilirubin 0.4 MG/DL (0.2-1.0) Aspartate Amino Transf (AST/SGOT) 90 U/L (15-37) H Alanine Aminotransferase (ALT/SGPT) 144 U/L (12-78) H Alkaline Phosphatase 141 U/L (46-116) H Total Protein 4.6 G/DL (6.4-8.2) L Albumin 1.4 G/DL (3.4-5.0) L Globulin 3.2 g/dL Albumin/Globulin Ratio 0.4 (1.0-2.7) L White Blood Count 3.7 K/UL (4.8-10.8) L Red Blood Count 3.17 M/UL (4.70-6.10) L Hemoglobin 9.8 G/DL (14.2-18.0) L Hematocrit 28.7 % (42.0-52.0) L Mean Corpuscular Volume 91 FL (80-99) Mean Corpuscular Hemoglobin 30.9 PG (27.0-31.0) Mean Corpuscular Hemoglobin Concent 34.1 G/DL (32.0-36.0) Red Cell Distribution Width 15.0 % (11.6-14.8) H Platelet Count 92 K/UL (150-450) L Mean Platelet Volume 6.0 FL (6.5-10.1) L Neutrophils (%) (Auto) % (45.0-75.0) Lymphocytes (%) (Auto) % (20.0-45.0) Monocytes (%) (Auto) % (1.0-10.0) Eosinophils (%) (Auto) % (0.0-3.0) Basophils (%) (Auto) % (0.0-2.0) Differential Total Cells Counted 100 Neutrophils % (Manual) 80 % (45-75) H Lymphocytes % (Manual) 14 % (20-45) L Monocytes % (Manual) 4 % (1-10) Eosinophils % (Manual) 2 % (0-3) Basophils % (Manual) 0 % (0-2) Band Neutrophils 0 % (0-8) Platelet Estimate Decreased L Platelet Morphology Normal Anisocytosis 1+ Plan Problems: (1) Cellulitis of upper extremity Assessment & Plan: 84M with RUE cellulitis, edema, erythema. no drainage. has RUE picc line recommend removal of picc. removed at bedside by myself on 05/18. pressure held, hemostasis noted, dressings applied. cath tip sent for cultures DVT duplex studies with acute thrombus IV Abx as per ID UA pending Cx results keep RUE elevated on pillows okay for diet AM labs anticoagulation off load pressure for dti noted cellulitis and edema improved deteriorated intubated on vent support likely respiratory insufficiency labs ordered wean vent okay for tube feeds via ng - cont as tolerated wean vent am labs HD as per renal will follow with recs thank you (2) Cellulitis Assessment & Plan: Pt presented on admission with reabsorbing blister lateral R heel. Base of injury indurated with delineated margins(L)4cm x (W)3cm.Non- blanching erythema Sacrum ,R and L buttocks(L)8.5cm x (W)9cm, with a partial thickness pressure injury noted to L buttocks. Base of wound is moist and viable (L)2.3cm x (W)3cm. Area around wound tender when minimally palpated. Pt noted to be wearing splint L foot. Per pt he fractured foot a few weeks ago. Splint removed to assess skin integrity. L heel and malleoli are pink and blanchable.Cavilon Skin Barrier applied to L heel and malleoli and each area covered with Optifoam drsg. Splint reapplied. No other skin concerns noted. unchanged Partial Thickness pressure injury L buttocks resolved . Non-blanching erythema without induration noted to Sacrum,R and L buttocks. (L)8cm x (W)9cm. Scrotum is grossly enlarged and is erythematous and macerated. Penile shaft is grossly swollen .Pt noted to have a partially opened blood blister with 25% biofilm at base of shaft of penis.(L)4.5cm x (W)2.5cm. Bilat groin, medial /posterior aspects of both upper thighs are erythematous and denuded. R lower ext edematous. R heel blister reabsorbed. Non--blanching erythema without induration noted to R heel. Splint removed from L foot. Optifoam drsgs removed from malleoli and heel. Pt noted to have developed several DTPI's despite having Optifoam drsgs. DTPI noted to L achilles . Base of wound is purple and fluctuant (L)0.6cm x (W) 2.7cm.DTPI noted to medial L malleolus(L)0.2cm x (W)0.3cm.Base of wound is purple with marginal erythema. DTPI noted to dorsal L foot. Base of wound is purple with marginal erythema along borders (L)0.9cm x (W)0.5cm.L heel is boggy with non-blanching erythema. Cavilon Skin Barrier applied to affected areas on L foot . Dorsal L foot ,Achilles .R and L malleoli and L heel each covered with Optifoam drsg. Non-blanching erythema without induration noted to lateral L tibia. At plantar aspect of L hallux small dry eschar noted. No erythema or fluctuance periwound. (L)0.5cm x (W)0.4cm. IN addition to Optifoam drsgs placed over each bony prominence of L foot ABD pads placed over dorsal and plantar L foot , Abd pads aligned along L tibia. Splint realigned to L foot Wrapped loosely with Kerlix then wrapped loosely with [place] wrap. L foot floated off mattress with pillow. Tx.Plan: Apply Cavilon to Dorsal L foot. L achilles .Medial/Lateral Malleoli L Foot and L heel. Cover each site with Optifoam drsg. Change every 7 days and prn. Apply Cavilon Plantar L foot. Cover with Optifoam drsg. Change every 7 days and prn. Apply Moisture Barrier Paste to sacrum. Cover with Optifoam drsg. Changee very 7 days and prn. Apply Cavilon Skin Barrier to Both heels. Cover each heel with Optifoam drsg. Change every 7 days and prn. Cleanse wound Shaft of penis with saline. Apply Moisture Barrier Paste Daily and prn. Apply Moisture Barrier Paste to Bilat groin, Scrotum, Medial/Posterior aspects of both upper thighs with each perineal care. Reposition at least every 2hours or as tolerated. Off-load heels with pillows. APM/LA L Mattress overlay. (3) SOB (shortness of breath) Assessment & Plan: Unfortunately patient has been in the intensive care unit on ventilatory support unable to be weaned from vent. Will likely require prolonged ventilatory support. Respiratory insufficiency not improving. Patient is full code as per identifiable documentation in patient's chart and medical record. No family or next kin available. Given patient's wishes current condition and course of a care tracheostomy is indicated recommended. Tracheostomy would be medically necessary as a next step in patient's care plan. s/p trach wean vent (4) Deep tissue injury Assessment & Plan: appreciate vascular input Bennett Logan Jun 25, 2019 14:47
[2019-06-25 16:00] VITALS: BP 137/78
[2019-06-25 20:00] VITALS: BP 138/78
--- NOTE | 2019-06-25 21:19 | General Progress Note ---
Assessment/Plan Problem List: (1) SOB (shortness of breath) ICD Codes: R06.02 - Shortness of breath SNOMED: 413410929 (2) Cellulitis ICD Codes: L03.90 - Cellulitis, unspecified SNOMED: 842026694 (3) Cellulitis of upper extremity ICD Codes: L03.119 - Cellulitis of unspecified part of limb SNOMED: 513538898 Qualifiers: Qualified Codes: L03.113 - Cellulitis of right upper limb (4) Renal insufficiency ICD Codes: N28.9 - Disorder of kidney and ureter, unspecified SNOMED: 093073230, 872596789 (5) Renal failure (ARF), acute on chronic ICD Codes: N17.9 - Acute kidney failure, unspecified; N18.9 - Chronic kidney disease, unspecified SNOMED: 819931372 (6) Anemia ICD Codes: D64.9 - Anemia, unspecified SNOMED: 974986095 (7) Hypothyroidism ICD Codes: E03.9 - Hypothyroidism, unspecified SNOMED: 07058620 (8) UTI (urinary tract infection) ICD Codes: N39.0 - Urinary tract infection, site not specified SNOMED: 20327951 Status: progressing, unchanged Assessment/Plan: no bleeding dc planning to subacute check lytes trach chf pna sepsis Subjective ROS Limited/Unobtainable: Yes Allergies: Coded Allergies: No Known Allergies (Unverified , 05/18/19) Objective Last 24 Hour Vital Signs Date Time Temp Pulse Resp B/P (MAP) Pulse Ox O2 Delivery O2 Flow Rate FiO2 06/25/19 20:00 10.0 35 06/25/19 20:00 Trach Collar 10.0 Trach Collar 10.0 06/25/19 18:50 85 20 99 T-Piece 10.0 35 06/25/19 18:50 99 T-Piece 10.0 35 06/25/19 17:45 137/78 06/25/19 16:00 95 06/25/19 16:00 Trach Collar 10.0 Trach Collar 10.0 06/25/19 16:00 10.0 35 06/25/19 16:00 98.2 90 20 137/78 (97) 96 06/25/19 13:25 97 Trach Collar 10.0 35 06/25/19 12:56 140/74 06/25/19 12:00 95 06/25/19 12:00 Trach Collar 10.0 Trach Collar 10.0 06/25/19 12:00 98.2 89 20 140/74 (96) 98 06/25/19 12:00 10.0 35 06/25/19 08:00 97.5 91 20 144/75 (98) 99 06/25/19 08:00 91 06/25/19 08:00 Trach Collar 10.0 Trach Collar 10.0 06/25/19 08:00 10.0 35 06/25/19 07:59 98 Trach Collar 10.0 35 06/25/19 07:59 96 20 98 Trach Collar 10.0 35 06/25/19 05:51 163/74 06/25/19 04:00 82 06/25/19 04:00 Trach Collar 10.0 Trach Collar 10.0 06/25/19 04:00 10.0 35 06/25/19 04:00 98.1 90 24 138/69 (92) 98 06/25/19 00:56 99 Trach Collar 10.0 35 06/25/19 00:37 144/70 06/25/19 00:00 Trach Collar 10.0 Trach Collar 10.0 06/25/19 00:00 10.0 35 06/25/19 00:00 98.6 78 24 144/70 (94) 99 06/25/19 00:00 93 Intake and Output 06/24/19 06/25/19 19:00 07:00 Intake Total 540 ml 530 ml Output Total 995 ml 825 ml Balance -455 ml -295 ml Free Water 60 ml 50 ml Tube Feeding 480 ml 480 ml Output Urine Total 675 ml 550 ml Stool Total 320 ml 275 ml Laboratory Tests 06/25/19 04:40: Sodium Level 151H, Potassium Level 3.8, Chloride Level 118H, Carbon Dioxide Level 24, Anion Gap 9, Blood Urea Nitrogen 93H, Creatinine 2.9H, Estimat Glomerular Filtration Rate , Glucose Level 148H, Calcium Level 7.6L, Total Bilirubin 0.4, Aspartate Amino Transf (AST/SGOT) 90H, Alanine Aminotransferase ( ALT/SGPT) 144H, Alkaline Phosphatase 141H, Total Protein 4.6L, Albumin 1.4L, Globulin 3.2, Albumin/Globulin Ratio 0.4L 06/25/19 09:30: White Blood Count 3.7L, Red Blood Count 3.17L, Hemoglobin 9.8L, Hematocrit 28.7L , Mean Corpuscular Volume 91, Mean Corpuscular Hemoglobin 30.9, Mean Corpuscular Hemoglobin Concent 34.1, Red Cell Distribution Width 15.0H, Platelet Count 92L, Mean Platelet Volume 6.0L, Neutrophils (%) (Auto) , Lymphocytes (%) (Auto) , Monocytes (%) (Auto) , Eosinophils (%) (Auto) , Basophils (%) (Auto) , Differential Total Cells Counted 100, Neutrophils % ( Manual) 80H, Lymphocytes % (Manual) 14L, Monocytes % (Manual) 4, Eosinophils % ( Manual) 2, Basophils % (Manual) 0, Band Neutrophils 0, Platelet Estimate DecreasedL, Platelet Morphology Normal, Anisocytosis 1+ Height (Feet): 5 Height (Inches): 7.00 Weight (Pounds): 175 Cardiovascular: normal rate Respiratory/Chest: lungs clear Abdomen: soft Joslyn Wiggins MD Jun 25, 2019 21:19
[2019-06-26] VITALS: BP 152/91
[2019-06-26] MEDS: HydrALAZINE 25mg tab GT SCH ×4 (00:51→13:04)
[2019-06-26 04:00] VITALS: BP 150/74
--- NOTE | 2019-06-26 05:15 | Progress Note ---
DATE: 06/25/2019 SUBJECTIVE: The patient is more alert and able to answer the questions. The patient is calm, manageable, and stable. tolerating G-tube feeding. Episodes of anxiety. MENTAL STATUS EXAMINATION: The patient is alert and oriented x2. Follows verbal commands. Mood is neutral to anxious. Affect is flat. Thought process, there is a paucity of thought content. Thought content, no suicidal or homicidal ideation. ASSESSMENT: 1. Acute encephalopathy, improving. 2. Failure to thrive. 3. Anxiety disorder. PLAN: 1. The patient would benefit from Remeron. 2. Haldol and Ativan have been discontinued. We will discuss with primary care physician medications. Piter Pedraza M.D. DR: Reginald JOB#: [id number] CC: SARA
[2019-06-26 05:45] LABS: BASOPHILS % (AUTO) 0.6 % (0.0-2.0); HEMATOCRIT 27.4 % (42.0-52.0); HEMOGLOBIN 9.5 G/DL (14.2-18.0); MEAN CORPUSCULAR VOLUME 91 FL (80-99); MONOCYTES % (AUTO) 4.4 % (1.0-10.0); NEUTROPHILS % (AUTO) 78.1 % (45.0-75.0); PLATELET COUNT 102 K/UL (150-450); RED BLOOD COUNT 3.01 M/UL (4.70-6.10); RED CELL DISTRIBUTION WIDTH 15.5 % (11.6-14.8); WHITE BLOOD COUNT 4.3 K/UL (4.8-10.8)
[2019-06-26 05:53] LABS: ALANINE AMINOTRANSFERASE 179 U/L (12-78); ALBUMIN 1.4 G/DL (3.4-5.0); ALBUMIN/GLOBULIN RATIO 0.4 (1.0-2.7); ALKALINE PHOSPHATASE 150 U/L (46-116); ANION GAP 11 mmol/L (5-15); ASPARTATE AMINO TRANSFERASE 107 U/L (15-37); BILIRUBIN,TOTAL 0.2 MG/DL (0.2-1.0); BLOOD UREA NITROGEN 87 mg/dL (7-18); CALCIUM 7.6 MG/DL (8.5-10.1); CARBON DIOXIDE 24 MMOL/L (21-32); CHLORIDE 118 MMOL/L (98-107); CREATININE 2.6 MG/DL (0.55-1.30); POTASSIUM 3.8 MMOL/L (3.5-5.1); SODIUM 153 MMOL/L (136-145)
[2019-06-26 08:00] VITALS: BP 139/77
[2019-06-26] MEDS ORDERED: D5W 250 ML IVPB ONE (09:00)
[2019-06-26] MEDS: Vitamin D 1000 IU Tab GT SCH (09:39)
[2019-06-26] MEDS: Amiodarone 200mg tab GT SCH (09:39)
--- NOTE | 2019-06-26 09:59 | Nephrology Progress Note ---
Assessment/Plan Problem List: (1) Renal failure (ARF), acute on chronic Assessment: Cr rising (2) Cellulitis of upper extremity (3) A-fib (4) Pneumonia (5) UTI (urinary tract infection) (6) Anemia Assessment: worsened (7) Hypothyroidism Assessment - KIMO on CKD - Urinary tract infection. - Anemia- - Dehydration. - Cellulitis of Upper extremity - HTN Plan no need for HD- likely for forseeable future remove dialysis cath dialysis last 06/14 - Dc hernández on hydralazine Trach 06/16 ! IV Calcium and PO Vit D ad needed previously: in ICU- intubated BP meds and Mind altering meds discontinued On midodrine check vanco levels - hold vanco doses PICC line has been removed. CXR: Increased right pleural effusion and similar left pleural effusion. Increased interstitial and hazy opacities throughout the lungs. Subjective ROS Limited/Unobtainable: Yes Objective Objective Last 24 Hour Vital Signs Date Time Temp Pulse Resp B/P (MAP) Pulse Ox O2 Delivery O2 Flow Rate FiO2 06/26/19 08:00 98.9 98 19 139/77 (97) 99 06/26/19 08:00 Trach Collar 10.0 Trach Collar 10.0 06/26/19 08:00 10.0 35 06/26/19 07:48 84 06/26/19 07:00 96 22 99 T-Piece 10.0 35 06/26/19 07:00 100 T-Piece 10.0 35 06/26/19 05:16 150/74 06/26/19 04:00 Trach Collar 10.0 Trach Collar 10.0 06/26/19 04:00 87 06/26/19 04:00 97.0 87 16 150/74 (99) 99 06/26/19 04:00 10.0 35 06/26/19 01:49 98 T-Piece 10.0 35 06/26/19 00:51 152/91 06/26/19 00:00 97.3 89 20 152/91 (111) 96 06/26/19 00:00 Trach Collar 10.0 Trach Collar 10.0 06/26/19 00:00 10.0 35 06/25/19 23:23 125 06/25/19 20:00 10.0 35 06/25/19 20:00 97.9 89 20 138/78 (98) 99 06/25/19 20:00 Trach Collar 10.0 Trach Collar 10.0 06/25/19 19:07 87 06/25/19 18:50 85 20 99 T-Piece 10.0 35 06/25/19 18:50 99 T-Piece 10.0 35 06/25/19 17:45 137/78 06/25/19 16:00 95 06/25/19 16:00 Trach Collar 10.0 Trach Collar 10.0 06/25/19 16:00 10.0 35 06/25/19 16:00 98.2 90 20 137/78 (97) 96 06/25/19 13:25 97 Trach Collar 10.0 35 06/25/19 12:56 140/74 06/25/19 12:00 95 06/25/19 12:00 Trach Collar 10.0 Trach Collar 10.0 06/25/19 12:00 98.2 89 20 140/74 (96) 98 06/25/19 12:00 10.0 35 Intake and Output 06/25/19 06/26/19 19:00 07:00 Intake Total 630 ml 410 ml Output Total 750 ml Balance -120 ml 410 ml Free Water 150 ml 50 ml Tube Feeding 480 ml 360 ml Output Urine Total 650 ml Stool Total 100 ml Current Medications Medications (Trade) Dose Ordered Sig/Phillip Route PRN Reason Start Time Stop Time Status Last Admin Dose Admin Acetaminophen (Tylenol) 500 mg Q4H PRN GT Mild Pain/Temp > 100.5 06/17/19 19:43 07/17/19 19:42 Amiodarone HCl (Cordarone) 200 mg DAILY GT 06/18/19 09:00 07/07/19 16:14 06/26/19 09:39 Clonidine HCl (Catapres Tab) 0.1 mg Q4H PRN GT For High Blood Pressure 06/17/19 19:44 07/17/19 19:43 Dextrose 500 ml @ 500 mls/hr ONCE ONCE IV 06/26/19 09:45 06/26/19 10:44 06/26/19 09:46 Hydralazine HCl (Apresoline) 25 mg Q6HR GT 06/22/19 12:00 07/18/19 11:59 06/26/19 05:16 Lansoprazole (Prevacid) 30 mg BID GT 06/18/19 09:00 2/9/20 17:59 06/26/19 09:39 Metoprolol Tartrate (Lopressor) 5 mg Q5MIN X 3 IVP 06/17/19 19:45 07/07/19 16:14 Potassium Chloride (K-Dur) 40 meq TWICE A DAY GT 06/24/19 10:00 07/24/19 09:59 06/26/19 09:16 Prednisone (predniSONE) 10 mg DAILY GT 06/23/19 09:00 07/21/19 08:59 06/26/19 09:39 Vitamin D (Vitamin D) 2,000 intlu DAILY GT 06/23/19 09:00 07/07/19 12:59 06/26/19 09:39 Laboratory Tests 06/26/19 04:20: White Blood Count 4.3L, Red Blood Count 3.01L, Hemoglobin 9.5L, Hematocrit 27.4L , Mean Corpuscular Volume 91, Mean Corpuscular Hemoglobin 31.6H, Mean Corpuscular Hemoglobin Concent 34.7, Red Cell Distribution Width 15.5H, Platelet Count 102L, Mean Platelet Volume 5.9L, Neutrophils (%) (Auto) 78.1H, Lymphocytes (%) (Auto) 15.0L, Monocytes (%) (Auto) 4.4, Eosinophils (%) (Auto) 2.0, Basophils (%) (Auto) 0.6, Sodium Level 153H, Potassium Level 3.8, Chloride Level 118H, Carbon Dioxide Level 24, Anion Gap 11, Blood Urea Nitrogen 87H, Creatinine 2.6H, Estimat Glomerular Filtration Rate , Glucose Level 125H, Calcium Level 7.6L, Total Bilirubin 0.2, Aspartate Amino Transf (AST/SGOT) 107H , Alanine Aminotransferase (ALT/SGPT) 179H, Alkaline Phosphatase 150H, Total Protein 4.6L, Albumin 1.4L, Globulin 3.2, Albumin/Globulin Ratio 0.4L Height (Feet): 5 Height (Inches): 7.00 Weight (Pounds): 174 General Appearance: no apparent distress EENT: other - trach Respiratory/Chest: decreased breath sounds Abdomen: soft Objective no change Reinier Mera MD Jun 26, 2019 09:59
--- NOTE | 2019-06-26 11:25 | GI Progress Note ---
Assessment/Plan Problems: (1) Anemia ICD Codes: D64.9 - Anemia, unspecified SNOMED: 722093144 (2) Dysphagia ICD Codes: R13.10 - Dysphagia, unspecified SNOMED: 55956702, 778724664 Status: unchanged Status Narrative Discussed with Dr. Lino. Assessment/Plan s/p PEG 06/13/19 GTF GT site care prn transfusions ppi fu pulm fu labs abx per ID on HD The patient was seen and examined at bedside and all new and available data was reviewed in the patients chart. I agree with the above findings, impression and plan. (Patient seen earlier today. Signature stamp does not reflect patient encounter time.). - Valentino Lino MD Subjective Subjective limited Objective Last 24 Hour Vital Signs Date Time Temp Pulse Resp B/P (MAP) Pulse Ox O2 Delivery O2 Flow Rate FiO2 06/26/19 08:00 98.9 98 19 139/77 (97) 99 06/26/19 08:00 Trach Collar 10.0 Trach Collar 10.0 06/26/19 08:00 10.0 35 06/26/19 07:48 84 06/26/19 07:00 96 22 99 T-Piece 10.0 35 06/26/19 07:00 100 T-Piece 10.0 35 06/26/19 05:16 150/74 06/26/19 04:00 Trach Collar 10.0 Trach Collar 10.0 06/26/19 04:00 87 06/26/19 04:00 97.0 87 16 150/74 (99) 99 06/26/19 04:00 10.0 35 06/26/19 01:49 98 T-Piece 10.0 35 06/26/19 00:51 152/91 06/26/19 00:00 97.3 89 20 152/91 (111) 96 06/26/19 00:00 Trach Collar 10.0 Trach Collar 10.0 06/26/19 00:00 10.0 35 06/25/19 23:23 125 06/25/19 20:00 10.0 35 06/25/19 20:00 97.9 89 20 138/78 (98) 99 06/25/19 20:00 Trach Collar 10.0 Trach Collar 10.0 06/25/19 19:07 87 06/25/19 18:50 85 20 99 T-Piece 10.0 35 06/25/19 18:50 99 T-Piece 10.0 35 06/25/19 17:45 137/78 06/25/19 16:00 95 06/25/19 16:00 Trach Collar 10.0 Trach Collar 10.0 06/25/19 16:00 10.0 35 06/25/19 16:00 98.2 90 20 137/78 (97) 96 06/25/19 13:25 97 Trach Collar 10.0 35 06/25/19 12:56 140/74 06/25/19 12:00 95 06/25/19 12:00 Trach Collar 10.0 Trach Collar 10.0 06/25/19 12:00 98.2 89 20 140/74 (96) 98 06/25/19 12:00 10.0 35 Intake and Output 06/25/19 06/26/19 19:00 07:00 Intake Total 630 ml 410 ml Output Total 750 ml Balance -120 ml 410 ml Free Water 150 ml 50 ml Tube Feeding 480 ml 360 ml Output Urine Total 650 ml Stool Total 100 ml Laboratory Tests Test 06/26/19 04:20 White Blood Count 4.3 K/UL (4.8-10.8) L Red Blood Count 3.01 M/UL (4.70-6.10) L Hemoglobin 9.5 G/DL (14.2-18.0) L Hematocrit 27.4 % (42.0-52.0) L Mean Corpuscular Volume 91 FL (80-99) Mean Corpuscular Hemoglobin 31.6 PG (27.0-31.0) H Mean Corpuscular Hemoglobin Concent 34.7 G/DL (32.0-36.0) Red Cell Distribution Width 15.5 % (11.6-14.8) H Platelet Count 102 K/UL (150-450) L Mean Platelet Volume 5.9 FL (6.5-10.1) L Neutrophils (%) (Auto) 78.1 % (45.0-75.0) H Lymphocytes (%) (Auto) 15.0 % (20.0-45.0) L Monocytes (%) (Auto) 4.4 % (1.0-10.0) Eosinophils (%) (Auto) 2.0 % (0.0-3.0) Basophils (%) (Auto) 0.6 % (0.0-2.0) Sodium Level 153 MMOL/L (136-145) H Potassium Level 3.8 MMOL/L (3.5-5.1) Chloride Level 118 MMOL/L (98-107) H Carbon Dioxide Level 24 MMOL/L (21-32) Anion Gap 11 mmol/L (5-15) Blood Urea Nitrogen 87 mg/dL (7-18) H Creatinine 2.6 MG/DL (0.55-1.30) H Estimat Glomerular Filtration Rate mL/min (>60) Glucose Level 125 MG/DL (74-106) H Calcium Level 7.6 MG/DL (8.5-10.1) L Total Bilirubin 0.2 MG/DL (0.2-1.0) Aspartate Amino Transf (AST/SGOT) 107 U/L (15-37) H Alanine Aminotransferase (ALT/SGPT) 179 U/L (12-78) H Alkaline Phosphatase 150 U/L (46-116) H Total Protein 4.6 G/DL (6.4-8.2) L Albumin 1.4 G/DL (3.4-5.0) L Globulin 3.2 g/dL Albumin/Globulin Ratio 0.4 (1.0-2.7) L Height (Feet): 5 Height (Inches): 7.00 Weight (Pounds): 174 Renetta Arandaoi [employer] Jun 26, 2019 11:25
[2019-06-26 12:00] VITALS: BP 146/82
--- NOTE | 2019-06-26 12:06 | Surgery Progress Note ---
Surgery Progress Note Subjective Procedure Performed Right internal jugular temporary hemodialysis catheter removal Additional Comments lft's trending up exam stable comfortable appearing Objective Last 24 Hour Vital Signs Date Time Temp Pulse Resp B/P (MAP) Pulse Ox O2 Delivery O2 Flow Rate FiO2 06/26/19 08:00 98.9 98 19 139/77 (97) 99 06/26/19 08:00 Trach Collar 10.0 Trach Collar 10.0 06/26/19 08:00 10.0 35 06/26/19 07:48 84 06/26/19 07:00 96 22 99 T-Piece 10.0 35 06/26/19 07:00 100 T-Piece 10.0 35 06/26/19 05:16 150/74 06/26/19 04:00 Trach Collar 10.0 Trach Collar 10.0 06/26/19 04:00 87 06/26/19 04:00 97.0 87 16 150/74 (99) 99 06/26/19 04:00 10.0 35 06/26/19 01:49 98 T-Piece 10.0 35 06/26/19 00:51 152/91 06/26/19 00:00 97.3 89 20 152/91 (111) 96 06/26/19 00:00 Trach Collar 10.0 Trach Collar 10.0 06/26/19 00:00 10.0 35 06/25/19 23:23 125 06/25/19 20:00 10.0 35 06/25/19 20:00 97.9 89 20 138/78 (98) 99 06/25/19 20:00 Trach Collar 10.0 Trach Collar 10.0 06/25/19 19:07 87 06/25/19 18:50 85 20 99 T-Piece 10.0 35 06/25/19 18:50 99 T-Piece 10.0 35 06/25/19 17:45 137/78 06/25/19 16:00 95 06/25/19 16:00 Trach Collar 10.0 Trach Collar 10.0 06/25/19 16:00 10.0 35 06/25/19 16:00 98.2 90 20 137/78 (97) 96 06/25/19 13:25 97 Trach Collar 10.0 35 06/25/19 12:56 140/74 I&O Intake and Output 06/25/19 06/26/19 19:00 07:00 Intake Total 630 ml 410 ml Output Total 750 ml Balance -120 ml 410 ml Free Water 150 ml 50 ml Tube Feeding 480 ml 360 ml Output Urine Total 650 ml Stool Total 100 ml Dressing: saturated Wound: other Drains: other Cardiovascular: RSR Respiratory: decreased breath sounds Abdomen: soft, present bowel sounds Extremities: no cyanosis Laboratory Tests Test 06/26/19 04:20 White Blood Count 4.3 K/UL (4.8-10.8) L Red Blood Count 3.01 M/UL (4.70-6.10) L Hemoglobin 9.5 G/DL (14.2-18.0) L Hematocrit 27.4 % (42.0-52.0) L Mean Corpuscular Volume 91 FL (80-99) Mean Corpuscular Hemoglobin 31.6 PG (27.0-31.0) H Mean Corpuscular Hemoglobin Concent 34.7 G/DL (32.0-36.0) Red Cell Distribution Width 15.5 % (11.6-14.8) H Platelet Count 102 K/UL (150-450) L Mean Platelet Volume 5.9 FL (6.5-10.1) L Neutrophils (%) (Auto) 78.1 % (45.0-75.0) H Lymphocytes (%) (Auto) 15.0 % (20.0-45.0) L Monocytes (%) (Auto) 4.4 % (1.0-10.0) Eosinophils (%) (Auto) 2.0 % (0.0-3.0) Basophils (%) (Auto) 0.6 % (0.0-2.0) Sodium Level 153 MMOL/L (136-145) H Potassium Level 3.8 MMOL/L (3.5-5.1) Chloride Level 118 MMOL/L (98-107) H Carbon Dioxide Level 24 MMOL/L (21-32) Anion Gap 11 mmol/L (5-15) Blood Urea Nitrogen 87 mg/dL (7-18) H Creatinine 2.6 MG/DL (0.55-1.30) H Estimat Glomerular Filtration Rate mL/min (>60) Glucose Level 125 MG/DL (74-106) H Calcium Level 7.6 MG/DL (8.5-10.1) L Total Bilirubin 0.2 MG/DL (0.2-1.0) Aspartate Amino Transf (AST/SGOT) 107 U/L (15-37) H Alanine Aminotransferase (ALT/SGPT) 179 U/L (12-78) H Alkaline Phosphatase 150 U/L (46-116) H Total Protein 4.6 G/DL (6.4-8.2) L Albumin 1.4 G/DL (3.4-5.0) L Globulin 3.2 g/dL Albumin/Globulin Ratio 0.4 (1.0-2.7) L Plan Problems: (1) Cellulitis of upper extremity Assessment & Plan: 84M with RUE cellulitis, edema, erythema. no drainage. has RUE picc line recommend removal of picc. removed at bedside by myself on 05/18. pressure held, hemostasis noted, dressings applied. cath tip sent for cultures DVT duplex studies with acute thrombus IV Abx as per ID UA pending Cx results keep RUE elevated on pillows okay for diet AM labs anticoagulation off load pressure for dti noted cellulitis and edema improved deteriorated intubated on vent support likely respiratory insufficiency labs ordered wean vent okay for tube feeds via ng - cont as tolerated wean vent am labs HD as per renal will follow with recs thank you (2) Cellulitis Assessment & Plan: Pt presented on admission with reabsorbing blister lateral R heel. Base of injury indurated with delineated margins(L)4cm x (W)3cm.Non- blanching erythema Sacrum ,R and L buttocks(L)8.5cm x (W)9cm, with a partial thickness pressure injury noted to L buttocks. Base of wound is moist and viable (L)2.3cm x (W)3cm. Area around wound tender when minimally palpated. Pt noted to be wearing splint L foot. Per pt he fractured foot a few weeks ago. Splint removed to assess skin integrity. L heel and malleoli are pink and blanchable.Cavilon Skin Barrier applied to L heel and malleoli and each area covered with Optifoam drsg. Splint reapplied. No other skin concerns noted. unchanged Partial Thickness pressure injury L buttocks resolved . Non-blanching erythema without induration noted to Sacrum,R and L buttocks. (L)8cm x (W)9cm. Scrotum is grossly enlarged and is erythematous and macerated. Penile shaft is grossly swollen .Pt noted to have a partially opened blood blister with 25% biofilm at base of shaft of penis.(L)4.5cm x (W)2.5cm. Bilat groin, medial /posterior aspects of both upper thighs are erythematous and denuded. R lower ext edematous. R heel blister reabsorbed. Non--blanching erythema without induration noted to R heel. Splint removed from L foot. Optifoam drsgs removed from malleoli and heel. Pt noted to have developed several DTPI's despite having Optifoam drsgs. DTPI noted to L achilles . Base of wound is purple and fluctuant (L)0.6cm x (W) 2.7cm.DTPI noted to medial L malleolus(L)0.2cm x (W)0.3cm.Base of wound is purple with marginal erythema. DTPI noted to dorsal L foot. Base of wound is purple with marginal erythema along borders (L)0.9cm x (W)0.5cm.L heel is boggy with non-blanching erythema. Cavilon Skin Barrier applied to affected areas on L foot . Dorsal L foot ,Achilles .R and L malleoli and L heel each covered with Optifoam drsg. Non-blanching erythema without induration noted to lateral L tibia. At plantar aspect of L hallux small dry eschar noted. No erythema or fluctuance periwound. (L)0.5cm x (W)0.4cm. IN addition to Optifoam drsgs placed over each bony prominence of L foot ABD pads placed over dorsal and plantar L foot , Abd pads aligned along L tibia. Splint realigned to L foot Wrapped loosely with Kerlix then wrapped loosely with [place] wrap. L foot floated off mattress with pillow. Tx.Plan: Apply Cavilon to Dorsal L foot. L achilles .Medial/Lateral Malleoli L Foot and L heel. Cover each site with Optifoam drsg. Change every 7 days and prn. Apply Cavilon Plantar L foot. Cover with Optifoam drsg. Change every 7 days and prn. Apply Moisture Barrier Paste to sacrum. Cover with Optifoam drsg. Changee very 7 days and prn. Apply Cavilon Skin Barrier to Both heels. Cover each heel with Optifoam drsg. Change every 7 days and prn. Cleanse wound Shaft of penis with saline. Apply Moisture Barrier Paste Daily and prn. Apply Moisture Barrier Paste to Bilat groin, Scrotum, Medial/Posterior aspects of both upper thighs with each perineal care. Reposition at least every 2hours or as tolerated. Off-load heels with pillows. APM/LA L Mattress overlay. (3) SOB (shortness of breath) Assessment & Plan: Unfortunately patient has been in the intensive care unit on ventilatory support unable to be weaned from vent. Will likely require prolonged ventilatory support. Respiratory insufficiency not improving. Patient is full code as per identifiable documentation in patient's chart and medical record. No family or next kin available. Given patient's wishes current condition and course of a care tracheostomy is indicated recommended. Tracheostomy would be medically necessary as a next step in patient's care plan. s/p trach wean vent (4) Deep tissue injury Assessment & Plan: appreciate vascular input Bennett Logan Jun 26, 2019 12:06
[2019-06-26 13:04] VITALS: BP 146/82
--- NOTE | 2019-06-26 13:36 | Infectious Diseases Prog Note ---
Assessment/Plan Assessment/Plan 84 yo male with PMHx of HTN who was sent to the ED on 05/18/19 from his [facility] for possible picc line infection. OM - Let foot, SP rx PNA , sp rx Acute respiratory failure s/p intubation 05/27, s/p trach 06/16/1906/10 CXR: Bilateral upper lobe interstitial opacities and volume loss are unchanged. Diffuse more acute appearing parenchymal disease throughout the left mid and lower lung are unchanged. CXR - Some LLL Atelectasis vs PNA, Nodules CT 05/20/19 - Bilateral upper lobe infiltrates worse on the right. Consider pneumonia. Bilateral pleural effusions moderate in size Sp Cx Marily Leukocytosis, mild recurrent (on steroids)- resolved No fever Swelling around PICC line, SP Minimal to no erythema and no purulent drainage Not likely to be infected Blood Cx 05/18/19 - NGTD PICC Tip Cx 05/18/19 - NGTD PICC line removed 05/18/19 HTN PLAN - Continue to monitor off abx -06/23 SP Daptomycin (completed OM course for left foot) - 06/10 SP Zosyn #15 - 05/28/19 SP Vancomycin per pharmacy - Stopped for increasing Cr - 05/27/19 SP Levofloxacin #5 - Monitor CBC and Temps -trach care -aspiration precautions -wound care per hospital protocol Thank you for this consult. [facility] will continue to follow the patient with you during this hospitalization. Subjective Allergies: Coded Allergies: No Known Allergies (Unverified , 05/18/19) Subjective afebrile no leukocytosis off abx Cr improving Objective Vital Signs Last 24 Hour Vital Signs Date Time Temp Pulse Resp B/P (MAP) Pulse Ox O2 Delivery O2 Flow Rate FiO2 06/26/19 13:04 146/82 06/26/19 12:54 99 T-Piece 8.0 30 06/26/19 12:00 97.7 85 18 146/82 (103) 100 06/26/19 12:00 10.0 35 06/26/19 12:00 Trach Collar 10.0 Trach Collar 10.0 06/26/19 08:00 98.9 98 19 139/77 (97) 99 06/26/19 08:00 Trach Collar 10.0 Trach Collar 10.0 06/26/19 08:00 10.0 35 06/26/19 07:48 84 06/26/19 07:00 96 22 99 T-Piece 10.0 35 06/26/19 07:00 100 T-Piece 10.0 35 06/26/19 05:16 150/74 06/26/19 04:00 Trach Collar 10.0 Trach Collar 10.0 06/26/19 04:00 87 06/26/19 04:00 97.0 87 16 150/74 (99) 99 06/26/19 04:00 10.0 35 06/26/19 01:49 98 T-Piece 10.0 35 06/26/19 00:51 152/91 06/26/19 00:00 97.3 89 20 152/91 (111) 96 06/26/19 00:00 Trach Collar 10.0 Trach Collar 10.0 06/26/19 00:00 10.0 35 06/25/19 23:23 125 06/25/19 20:00 10.0 35 06/25/19 20:00 97.9 89 20 138/78 (98) 99 06/25/19 20:00 Trach Collar 10.0 Trach Collar 10.0 06/25/19 19:07 87 06/25/19 18:50 85 20 99 T-Piece 10.0 35 06/25/19 18:50 99 T-Piece 10.0 35 06/25/19 17:45 137/78 06/25/19 16:00 95 06/25/19 16:00 Trach Collar 10.0 Trach Collar 10.0 06/25/19 16:00 10.0 35 06/25/19 16:00 98.2 90 20 137/78 (97) 96 Height (Feet): 5 Height (Inches): 7.00 Weight (Pounds): 174 Objective General Appearance: no apparent distress, lethargic Cardiovascular: normal rate Respiratory/Chest: decreased breath sounds Abdomen: distended Laboratory Tests Test 06/26/19 04:20 White Blood Count 4.3 K/UL (4.8-10.8) L Red Blood Count 3.01 M/UL (4.70-6.10) L Hemoglobin 9.5 G/DL (14.2-18.0) L Hematocrit 27.4 % (42.0-52.0) L Mean Corpuscular Volume 91 FL (80-99) Mean Corpuscular Hemoglobin 31.6 PG (27.0-31.0) H Mean Corpuscular Hemoglobin Concent 34.7 G/DL (32.0-36.0) Red Cell Distribution Width 15.5 % (11.6-14.8) H Platelet Count 102 K/UL (150-450) L Mean Platelet Volume 5.9 FL (6.5-10.1) L Neutrophils (%) (Auto) 78.1 % (45.0-75.0) H Lymphocytes (%) (Auto) 15.0 % (20.0-45.0) L Monocytes (%) (Auto) 4.4 % (1.0-10.0) Eosinophils (%) (Auto) 2.0 % (0.0-3.0) Basophils (%) (Auto) 0.6 % (0.0-2.0) Sodium Level 153 MMOL/L (136-145) H Potassium Level 3.8 MMOL/L (3.5-5.1) Chloride Level 118 MMOL/L (98-107) H Carbon Dioxide Level 24 MMOL/L (21-32) Anion Gap 11 mmol/L (5-15) Blood Urea Nitrogen 87 mg/dL (7-18) H Creatinine 2.6 MG/DL (0.55-1.30) H Estimat Glomerular Filtration Rate mL/min (>60) Glucose Level 125 MG/DL (74-106) H Calcium Level 7.6 MG/DL (8.5-10.1) L Total Bilirubin 0.2 MG/DL (0.2-1.0) Aspartate Amino Transf (AST/SGOT) 107 U/L (15-37) H Alanine Aminotransferase (ALT/SGPT) 179 U/L (12-78) H Alkaline Phosphatase 150 U/L (46-116) H Total Protein 4.6 G/DL (6.4-8.2) L Albumin 1.4 G/DL (3.4-5.0) L Globulin 3.2 g/dL Albumin/Globulin Ratio 0.4 (1.0-2.7) L Current Medications Medications (Trade) Dose Ordered Sig/Phillip Route PRN Reason Start Time Stop Time Status Last Admin Dose Admin Acetaminophen (Tylenol) 500 mg Q4H PRN GT Mild Pain/Temp > 100.5 06/17/19 19:43 07/17/19 19:42 Amiodarone HCl (Cordarone) 200 mg DAILY GT 06/18/19 09:00 07/07/19 16:14 06/26/19 09:39 Clonidine HCl (Catapres Tab) 0.1 mg Q4H PRN GT For High Blood Pressure 06/17/19 19:44 07/17/19 19:43 Hydralazine HCl (Apresoline) 25 mg Q6HR GT 06/22/19 12:00 07/18/19 11:59 06/26/19 13:04 Lansoprazole (Prevacid) 30 mg BID GT 06/18/19 09:00 07/06/19 17:59 06/26/19 09:39 Metoprolol Tartrate (Lopressor) 5 mg Q5MIN X 3 IVP 06/17/19 19:45 07/07/19 16:14 Potassium Chloride (K-Dur) 40 meq TWICE A DAY GT 06/24/19 10:00 07/24/19 09:59 06/26/19 09:16 Prednisone (predniSONE) 10 mg DAILY GT 06/23/19 09:00 07/21/19 08:59 06/26/19 09:39 Vitamin D (Vitamin D) 2,000 intlu DAILY GT 06/23/19 09:00 07/07/19 12:59 06/26/19 09:39 Latha Lowe M.D. Jun 26, 2019 13:36
[2019-06-26] MEDS ORDERED: D5W 275ml ONE (15:13)
[2019-06-26] MEDS ORDERED: Tubing IV Secondary IV ONE (15:13)
[2019-06-26] MEDS ORDERED: NS 275ml ONE (15:13)
--- NOTE | 2019-06-26 15:21 | Hematology/Onc Progress Note ---
Assessment/Plan Assessment/Plan # Anemia of chronic disease due to underlying chronic medical issues, multifactorial v Gi bleed --> Anemia workup has been reviewed, ferritin >1k --> No evidence of hemolysis is noted, peripheral smear has been reviewed. --> Hgb goal >7. Transfuse prn. --> Epogen or iron at this time is not particularly indicated --> Medications have been reviewed --> low threshold for gi evaluation in case has occult + --> hgb trend: 9.3-->9.7-->8.1-->7.6-->8-->9.4-->9.2-->7.5-->9.3-->8-->8.1-->8.6 -->7.8-->8.3-->7.6-->8.2-->8.6-->10.4-->10.6-->11.3-->10.2-->9.8-->9.5 --> transf 05/28/19 with 1 unit prbc, 1 unit on 06/03, again on 06/18 --> transfusion is a emergency, no family, no poa, is okay to transfuse # Right upper arm extremity axillary vein dvt --> agree to continue eliquis --> continue for total of minimum of 3 months --> rescan arm in 3 mo # Thrombocytopenia is due to infection, i.e. cellulitis of upper extremity, likely picc line infection --> as per id on ax --> picc off --> levoflox/vanc-->zosyn/vanc--> zosyn-->dapto/zosyn --> plt trend 208-->132-->146k-->159-->217-->211-->145-->117-->145-->111-->88--> 90-->89-->92-->102 # Respiratory failure s/p vent --> has been failing weaning --> trach 06/16 # KIMO on CKD --> per Dr. Mera --> HD as needed # Pneumonia --> abx per id # Dehydration. --> goal of euvolemia # Paroxysmal Atrial fibrillation with rapid ventricular response was on amiodarone gtt, now in sinus rhythm. --> per cards On PO amiodarone 200 bid, Lopressor 25 bid # Dysphagia with ng tube --> s/p peg 06/13 # Septic shock --> has required icu admission, and pressor # Dvt ppx eliquis--> continued The timing of this note does not necessarily reflect the time of the patient was seen. Greatly appreciate consultation. Subjective Allergies: Coded Allergies: No Known Allergies (Unverified , 05/18/19) Subjective 05/24: awake and alert, v mask, labs reviewed, apixaban 05/25: as per gi, ngt and eliquis tolerated 05/26: pending clearance but still with ng and nonrebreather 05/27: hypoxic yesterday, deteriorated, coded, now intubated, icu, labs noted 05/28: icu, levophed gtt, hgb 7.6, repeat cbc 05/29: remains in the icu, given prbc last night, no bleeding 05/30: no events, no bleeding, ++ fredo and on pressor 05/31: intubated, bp better on pressor, no bleeding, coag ordered 06/02: reamins ill appearing, on vent, labs noted, on vent, poorly responsive 06/03: no events, no bleeding, labs noted, dw surgery, and Rn, monitoring plt 06/04: tolerating tube feeds, labs noted, in the icu 06/05: restraints, cxr unchanged, anticoagulants on hold until further notice 06/06: no events, no bleeding, no night sweats, no bleeding 06/08: icu, unable to wean per resp, apixaban restarted, labs reviewed 06/09: minimally responsive, on vent and gt feeds, no bleeding 06/10: no acute events, failed to wean, hd for today, h/h stable 06/11: remains altered, may need trach, coags ordered, no bleeding currently 06/12: no events, no bleeding, trach pending, no major changes 06/13: icu, weaning failed, egd pending, hgb 7.6, repeat cbc 06/15: no events, no bleeding, is more responsive, labs reviewed, no changes, on pressor 06/16: remains on vent, no bleeding, on pressors, labs noted 06/17: now is s/p trach as well, on vent, labs reviewed, jeison Huang 06/18: no new events, transferred out of the icu, s/p peg and trach 06/19: s/p prbc, hgb improved to 10.4, seen by rt, no resp distress 06/20: remains confused, getting amio per cards, hgb better, psych recs noted 06/22: sdu, no acute events, ferritin >1k, hep panel negative 06/23: no major changes, labs are reviewed, jeison Franco, hgb stable 06/24: no overnight events, labs reviewed, off abx, on steroids 06/25: no acute events, no leukocytosis, afebrile h/h stable 06/26: no overnight events, remains on steroids, labs reviewed, trach Objective Objective Current Medications Medications (Trade) Dose Ordered Sig/Phillip Route PRN Reason Start Time Stop Time Status Last Admin Dose Admin Acetaminophen (Tylenol) 500 mg Q4H PRN GT Mild Pain/Temp > 100.5 06/17/19 19:43 07/17/19 19:42 Amiodarone HCl (Cordarone) 200 mg DAILY GT 06/18/19 09:00 07/07/19 16:14 06/26/19 09:39 Clonidine HCl (Catapres Tab) 0.1 mg Q4H PRN GT For High Blood Pressure 06/17/19 19:44 07/17/19 19:43 Hydralazine HCl (Apresoline) 25 mg Q6HR GT 06/22/19 12:00 07/18/19 11:59 06/26/19 13:04 Lansoprazole (Prevacid) 30 mg BID GT 06/18/19 09:00 07/06/19 17:59 06/26/19 09:39 Metoprolol Tartrate (Lopressor) 5 mg Q5MIN X 3 IVP 06/17/19 19:45 07/07/19 16:14 Potassium Chloride (K-Dur) 40 meq TWICE A DAY GT 06/24/19 10:00 07/24/19 09:59 06/26/19 09:16 Prednisone (predniSONE) 10 mg DAILY GT 06/23/19 09:00 07/21/19 08:59 06/26/19 09:39 Vitamin D (Vitamin D) 2,000 intlu DAILY GT 06/23/19 09:00 07/07/19 12:59 06/26/19 09:39 Last 24 Hour Vital Signs Date Time Temp Pulse Resp B/P (MAP) Pulse Ox O2 Delivery O2 Flow Rate FiO2 06/26/19 13:04 146/82 06/26/19 12:54 99 T-Piece 8.0 30 06/26/19 12:00 97.7 85 18 146/82 (103) 100 06/26/19 12:00 10.0 35 06/26/19 12:00 Trach Collar 10.0 Trach Collar 10.0 06/26/19 11:42 76 06/26/19 08:00 98.9 98 19 139/77 (97) 99 06/26/19 08:00 Trach Collar 10.0 Trach Collar 10.0 06/26/19 08:00 10.0 35 06/26/19 07:48 84 06/26/19 07:00 96 22 99 T-Piece 10.0 35 06/26/19 07:00 100 T-Piece 10.0 35 06/26/19 05:16 150/74 06/26/19 04:00 Trach Collar 10.0 Trach Collar 10.0 06/26/19 04:00 87 06/26/19 04:00 97.0 87 16 150/74 (99) 99 06/26/19 04:00 10.0 35 06/26/19 01:49 98 T-Piece 10.0 35 06/26/19 00:51 152/91 06/26/19 00:00 97.3 89 20 152/91 (111) 96 06/26/19 00:00 Trach Collar 10.0 Trach Collar 10.0 06/26/19 00:00 10.0 35 06/25/19 23:23 125 06/25/19 20:00 10.0 35 06/25/19 20:00 97.9 89 20 138/78 (98) 99 06/25/19 20:00 Trach Collar 10.0 Trach Collar 10.0 06/25/19 19:07 87 06/25/19 18:50 85 20 99 T-Piece 10.0 35 06/25/19 18:50 99 T-Piece 10.0 35 06/25/19 17:45 137/78 06/25/19 16:00 95 06/25/19 16:00 Trach Collar 10.0 Trach Collar 10.0 06/25/19 16:00 10.0 35 06/25/19 16:00 98.2 90 20 137/78 (97) 96 06/25/19 13:25 97 Trach Collar 10.0 35 06/25/19 12:56 140/74 06/25/19 12:00 95 06/25/19 12:00 Trach Collar 10.0 Trach Collar 10.0 06/25/19 12:00 98.2 89 20 140/74 (96) 98 06/25/19 12:00 10.0 35 06/25/19 08:00 97.5 91 20 144/75 (98) 99 06/25/19 08:00 91 06/25/19 08:00 Trach Collar 10.0 Trach Collar 10.0 06/25/19 08:00 10.0 35 06/25/19 07:59 98 Trach Collar 10.0 35 06/25/19 07:59 96 20 98 Trach Collar 10.0 35 06/25/19 05:51 163/74 06/25/19 04:00 82 06/25/19 04:00 Trach Collar 10.0 Trach Collar 10.0 06/25/19 04:00 10.0 35 06/25/19 04:00 98.1 90 24 138/69 (92) 98 06/25/19 00:56 99 Trach Collar 10.0 35 06/25/19 00:37 144/70 06/25/19 00:00 Trach Collar 10.0 Trach Collar 10.0 06/25/19 00:00 10.0 35 06/25/19 00:00 98.6 78 24 144/70 (94) 99 06/25/19 00:00 93 06/24/19 20:00 98.0 87 24 157/81 (106) 99 06/24/19 20:00 10.0 35 06/24/19 20:00 Trach Collar 10.0 Trach Collar 10.0 06/24/19 20:00 86 06/24/19 19:28 95 18 95 Trach Collar 10.0 35 06/24/19 19:28 99 Trach Collar 10.0 35 06/24/19 17:21 149/67 06/24/19 16:00 Trach Collar 10.0 Trach Collar 10.0 06/24/19 16:00 10.0 35 06/24/19 16:00 97.5 94 24 149/84 (105) 97 06/24/19 15:27 110 Intake and Output 06/25/19 06/26/19 19:00 07:00 Intake Total 630 ml 410 ml Output Total 750 ml Balance -120 ml 410 ml Free Water 150 ml 50 ml Tube Feeding 480 ml 360 ml Output Urine Total 650 ml Stool Total 100 ml Labs Test 06/24/19 04:45 06/25/19 04:40 06/25/19 09:30 06/26/19 04:20 White Blood Count 4.6 K/UL (4.8-10.8) 3.7 K/UL (4.8-10.8) 4.3 K/UL (4.8-10.8) Red Blood Count 3.22 M/UL (4.70-6.10) 3.17 M/UL (4.70-6.10) 3.01 M/UL (4.70-6.10) Hemoglobin 10.2 G/DL (14.2-18.0) 9.8 G/DL (14.2-18.0) 9.5 G/DL (14.2-18.0) Hematocrit 29.3 % (42.0-52.0) 28.7 % (42.0-52.0) 27.4 % (42.0-52.0) Mean Corpuscular Volume 91 FL (80-99) 91 FL (80-99) 91 FL (80-99) Mean Corpuscular Hemoglobin 31.8 PG (27.0-31.0) 30.9 PG (27.0-31.0) 31.6 PG (27.0-31.0) Mean Corpuscular Hemoglobin Concent 35.0 G/DL (32.0-36.0) 34.1 G/DL (32.0-36.0) 34.7 G/DL (32.0-36.0) Red Cell Distribution Width 15.0 % (11.6-14.8) 15.0 % (11.6-14.8) 15.5 % (11.6-14.8) Platelet Count 89 K/UL (150-450) 92 K/UL (150-450) 102 K/UL (150-450) Mean Platelet Volume 6.8 FL (6.5-10.1) 6.0 FL (6.5-10.1) 5.9 FL (6.5-10.1) Neutrophils (%) (Auto) % (45.0-75.0) % (45.0-75.0) 78.1 % (45.0-75.0) Lymphocytes (%) (Auto) % (20.0-45.0) % (20.0-45.0) 15.0 % (20.0-45.0) Monocytes (%) (Auto) % (1.0-10.0) % (1.0-10.0) 4.4 % (1.0-10.0) Eosinophils (%) (Auto) % (0.0-3.0) % (0.0-3.0) 2.0 % (0.0-3.0) Basophils (%) (Auto) % (0.0-2.0) % (0.0-2.0) 0.6 % (0.0-2.0) Sodium Level 149 MMOL/L (136-145) 151 MMOL/L (136-145) 153 MMOL/L (136-145) Potassium Level 3.2 MMOL/L (3.5-5.1) 3.8 MMOL/L (3.5-5.1) 3.8 MMOL/L (3.5-5.1) Chloride Level 115 MMOL/L (98-107) 118 MMOL/L (98-107) 118 MMOL/L (98-107) Carbon Dioxide Level 25 MMOL/L (21-32) 24 MMOL/L (21-32) 24 MMOL/L (21-32) Anion Gap 9 mmol/L (5-15) 9 mmol/L (5-15) 11 mmol/L (5-15) Blood Urea Nitrogen 92 mg/dL (7-18) 93 mg/dL (7-18) 87 mg/dL (7-18) Creatinine 3.1 MG/DL (0.55-1.30) 2.9 MG/DL (0.55-1.30) 2.6 MG/DL (0.55-1.30) Estimat Glomerular Filtration Rate mL/min (>60) mL/min (>60) mL/min (>60) Glucose Level 141 MG/DL (74-106) 148 MG/DL (74-106) 125 MG/DL (74-106) Calcium Level 7.6 MG/DL (8.5-10.1) 7.6 MG/DL (8.5-10.1) 7.6 MG/DL (8.5-10.1) Phosphorus Level 3.1 MG/DL (2.5-4.9) Magnesium Level 2.3 MG/DL (1.8-2.4) Total Bilirubin 0.3 MG/DL (0.2-1.0) 0.4 MG/DL (0.2-1.0) 0.2 MG/DL (0.2-1.0) Aspartate Amino Transf (AST/SGOT) 88 U/L (15-37) 90 U/L (15-37) 107 U/L (15-37) Alanine Aminotransferase (ALT/SGPT) 160 U/L (12-78) 144 U/L (12-78) 179 U/L (12-78) Alkaline Phosphatase 142 U/L (46-116) 141 U/L (46-116) 150 U/L (46-116) C-Reactive Protein, Quantitative 5.9 mg/dL (0.00-0.90) Pro-B-Type Natriuretic Peptide 3150 pg/mL (0-125) Total Protein 4.9 G/DL (6.4-8.2) 4.6 G/DL (6.4-8.2) 4.6 G/DL (6.4-8.2) Albumin 1.5 G/DL (3.4-5.0) 1.4 G/DL (3.4-5.0) 1.4 G/DL (3.4-5.0) Globulin 3.4 g/dL 3.2 g/dL 3.2 g/dL Albumin/Globulin Ratio 0.4 (1.0-2.7) 0.4 (1.0-2.7) 0.4 (1.0-2.7) Random Vancomycin Level 5.0 ug/mL Differential Total Cells Counted 100 Neutrophils % (Manual) 80 % (45-75) Lymphocytes % (Manual) 14 % (20-45) Monocytes % (Manual) 4 % (1-10) Eosinophils % (Manual) 2 % (0-3) Basophils % (Manual) 0 % (0-2) Band Neutrophils 0 % (0-8) Platelet Estimate Decreased Platelet Morphology Normal Anisocytosis 1+ Height (Feet): 5 Height (Inches): 7.00 Weight (Pounds): 174 Objective PE: Vitals: reviewed General Appearance: NAD HEENT: normocephalic, atraumatic Neck: non-tender, normal alignment Respiratory/Chest: VENT++ ++ trach Cardiovascular/Chest: normal peripheral pulses, normal rate Abdomen: normal bowel sounds, soft, nontender ++ peg Extremities: normal range of motion ++ right arm swelling Suleman Addison MD Jun 26, 2019 15:21
--- NOTE | 2019-06-26 16:10 | Pulmonology Progress Note ---
Assessment/Plan Assessment/Plan IMPRESSION AND PLAN: 1. S/p tracheostomy 2. Cellulitis. 3. History of COPD. 4. Hypertension. 5. Afib with RVR; rate controlled 6. Respiratory failure; 7. Renal failure DISCUSSION: 1. S/p trach; 2. Continue present management and care. 3. Continue medications and HHN with atrovent only 4. DC planning 5. Continue trach collar Arsen Whittaker M.D. Subjective Interval Events: None new; on trach collar Constitutional: Reports: no symptoms HEENT: Repors: no symptoms Respiratory: Reports: no symptoms Cardiovascular: Reports: no symptoms Gastrointestinal/Abdominal: Reports: no symptoms Genitourinary: Reports: no symptoms Allergies: Coded Allergies: No Known Allergies (Unverified , 05/18/19) Objective Last 24 Hour Vital Signs Date Time Temp Pulse Resp B/P (MAP) Pulse Ox O2 Delivery O2 Flow Rate FiO2 06/26/19 16:00 10.0 35 06/26/19 16:00 Trach Collar 10.0 Trach Collar 10.0 06/26/19 15:26 90 06/26/19 13:04 146/82 06/26/19 12:54 99 T-Piece 8.0 30 06/26/19 12:00 97.7 85 18 146/82 (103) 100 06/26/19 12:00 10.0 35 06/26/19 12:00 Trach Collar 10.0 Trach Collar 10.0 06/26/19 11:42 76 06/26/19 08:00 98.9 98 19 139/77 (97) 99 06/26/19 08:00 Trach Collar 10.0 Trach Collar 10.0 06/26/19 08:00 10.0 35 06/26/19 07:48 84 06/26/19 07:00 96 22 99 T-Piece 10.0 35 06/26/19 07:00 100 T-Piece 10.0 35 06/26/19 05:16 150/74 06/26/19 04:00 Trach Collar 10.0 Trach Collar 10.0 06/26/19 04:00 87 06/26/19 04:00 97.0 87 16 150/74 (99) 99 06/26/19 04:00 10.0 35 06/26/19 01:49 98 T-Piece 10.0 35 06/26/19 00:51 152/91 06/26/19 00:00 97.3 89 20 152/91 (111) 96 06/26/19 00:00 Trach Collar 10.0 Trach Collar 10.0 06/26/19 00:00 10.0 35 06/25/19 23:23 125 06/25/19 20:00 10.0 35 06/25/19 20:00 97.9 89 20 138/78 (98) 99 06/25/19 20:00 Trach Collar 10.0 Trach Collar 10.0 06/25/19 19:07 87 06/25/19 18:50 85 20 99 T-Piece 10.0 35 06/25/19 18:50 99 T-Piece 10.0 35 06/25/19 17:45 137/78 Intake and Output 06/25/19 06/26/19 19:00 07:00 Intake Total 630 ml 410 ml Output Total 750 ml Balance -120 ml 410 ml Free Water 150 ml 50 ml Tube Feeding 480 ml 360 ml Output Urine Total 650 ml Stool Total 100 ml General Appearance: no acute distress HEENT: normocephalic Respiratory/Chest: chest wall non-tender Cardiovascular: normal peripheral pulses, normal rate Abdomen: normal bowel sounds, soft, non tender Extremities: no cyanosis Laboratory Tests 06/26/19 04:20: White Blood Count 4.3L, Red Blood Count 3.01L, Hemoglobin 9.5L, Hematocrit 27.4L , Mean Corpuscular Volume 91, Mean Corpuscular Hemoglobin 31.6H, Mean Corpuscular Hemoglobin Concent 34.7, Red Cell Distribution Width 15.5H, Platelet Count 102L, Mean Platelet Volume 5.9L, Neutrophils (%) (Auto) 78.1H, Lymphocytes (%) (Auto) 15.0L, Monocytes (%) (Auto) 4.4, Eosinophils (%) (Auto) 2.0, Basophils (%) (Auto) 0.6, Sodium Level 153H, Potassium Level 3.8, Chloride Level 118H, Carbon Dioxide Level 24, Anion Gap 11, Blood Urea Nitrogen 87H, Creatinine 2.6H, Estimat Glomerular Filtration Rate , Glucose Level 125H, Calcium Level 7.6L, Total Bilirubin 0.2, Aspartate Amino Transf (AST/SGOT) 107H , Alanine Aminotransferase (ALT/SGPT) 179H, Alkaline Phosphatase 150H, Total Protein 4.6L, Albumin 1.4L, Globulin 3.2, Albumin/Globulin Ratio 0.4L Current Medications Medications (Trade) Dose Ordered Sig/Phillip Route PRN Reason Start Time Stop Time Status Last Admin Dose Admin Acetaminophen (Tylenol) 500 mg Q4H PRN GT Mild Pain/Temp > 100.5 06/17/19 19:43 07/17/19 19:42 Amiodarone HCl (Cordarone) 200 mg DAILY GT 06/18/19 09:00 07/07/19 16:14 06/26/19 09:39 Clonidine HCl (Catapres Tab) 0.1 mg Q4H PRN GT For High Blood Pressure 06/17/19 19:44 07/17/19 19:43 Hydralazine HCl (Apresoline) 25 mg Q6HR GT 06/22/19 12:00 07/18/19 11:59 06/26/19 13:04 Lansoprazole (Prevacid) 30 mg BID GT 06/18/19 09:00 07/06/19 17:59 06/26/19 09:39 Metoprolol Tartrate (Lopressor) 5 mg Q5MIN X 3 IVP 06/17/19 19:45 07/07/19 16:14 Potassium Chloride (K-Dur) 40 meq TWICE A DAY GT 06/24/19 10:00 07/24/19 09:59 06/26/19 09:16 Prednisone (predniSONE) 10 mg DAILY GT 06/23/19 09:00 07/21/19 08:59 06/26/19 09:39 Vitamin D (Vitamin D) 2,000 intlu DAILY GT 06/23/19 09:00 07/07/19 12:59 06/26/19 09:39 Arsen Whittaker MD Jun 26, 2019 16:10
--- NOTE | 2019-06-27 18:30 | Progress Note ---
DATE: 06/26/2019 SUBJECTIVE: The patient was seen yesterday, 06/26/2019. The patient is calm. No agitation was noted. The patient is confused. Agitation is decreased. Memory impairment, not engaged during the evaluation. MENTAL STATUS EXAMINATION: The patient is alert, oriented times self, place. Mood is anxious. Affect is constricted, congruent with mood. Thought process is concrete. Thought content, no suicidal or homicidal ideation. Cognition is impaired. ASSESSMENT: Stable. PLAN: The patient is not an imminent danger to self or others. Piter Pedraza M.D. DR: MAKAYLA JOB#: [id number] CC:
== END 2019-06-26 16:02 | DRG 4 ==
LOC: EDBD 00:31 → EMR 00:35 → 2E 01:25 → EDBEDREQ 01:40 → ICU 05-19 08:00 → 2E 05-20 20:07 → ICU 05-26 23:29 → 2W 06-17 19:42
PROC: 05HN33Z Insertion of Infusion Device into Left Internal Jugular Vein, Percutaneous Approach (ICD-10-PCS; principal; 2019-05-26)
PROC: 5A1955Z Respiratory Ventilation, Greater than 96 Consecutive Hours (ICD-10-PCS; principal; 2019-05-26)
PROC: 0BH17EZ Insertion of Endotracheal Airway into Trachea, Via Natural or Artificial Opening (ICD-10-PCS; principal; 2019-05-26)
PROC: 05HM33Z Insertion of Infusion Device into Right Internal Jugular Vein, Percutaneous Approach (ICD-10-PCS; 2019-06-02)
PROC: B543ZZA Ultrasonography of Right Jugular Veins, Guidance (ICD-10-PCS; 2019-06-02)
PROC: 5A1D70Z Performance of Urinary Filtration, Intermittent, Less than 6 Hours Per Day (ICD-10-PCS; 2019-06-02)
PROC: 0DH63UZ Insertion of Feeding Device into Stomach, Percutaneous Approach (ICD-10-PCS; 2019-06-13)
PROC: 0B110F4 Bypass Trachea to Cutaneous with Tracheostomy Device, Open Approach (ICD-10-PCS; 2019-06-16)
PROC: 05PYX3Z Removal of Infusion Device from Upper Vein, External Approach (ICD-10-PCS; 2019-06-24)
DX: T80.212A Local infection due to central venous catheter, initial encounter (principal); J18.9 Pneumonia, unspecified organism; E43 Unspecified severe protein-calorie malnutrition; A41.9 Sepsis, unspecified organism; R65.21 Severe sepsis with septic shock; J96.01 Acute respiratory failure with hypoxia; N17.9 Acute kidney failure, unspecified; M86.8X7 Other osteomyelitis, ankle and foot; L03.113 Cellulitis of right upper limb; N39.0 Urinary tract infection, site not specified; I13.0 Hypertensive heart and chronic kidney disease with heart failure and stage 1 through stage 4 chronic kidney disease, or unspecified chronic kidney disease; I82.621 Acute embolism and thrombosis of deep veins of right upper extremity; I82.412 Acute embolism and thrombosis of left femoral vein; J90 Pleural effusion, not elsewhere classified; I47.1 Supraventricular tachycardia; I31.3 Pericardial effusion (noninflammatory); E86.0 Dehydration; N18.3 Chronic kidney disease, stage 3 (moderate); I50.9 Heart failure, unspecified; I48.0 Paroxysmal atrial fibrillation; Z79.01 Long term (current) use of anticoagulants; E87.6 Hypokalemia; R62.7 Adult failure to thrive; R13.10 Dysphagia, unspecified; L89.899 Pressure ulcer of other site, unspecified stage; R00.1 Bradycardia, unspecified; D64.9 Anemia, unspecified; D69.6 Thrombocytopenia, unspecified; E03.9 Hypothyroidism, unspecified; G31.84 Mild cognitive impairment of uncertain or unknown etiology; M25.572 Pain in left ankle and joints of left foot
CPT/HCPCS: 36415; 36569; 36600; 71045; 71250; 74018; 76770; 76937; 78579; 78580; 80048; 80053; 80061; 80076; 80202; 81003; 82140; 82270; 82378; 82550; 82553; 82607; 82728; 82746; 82803; 82962; 82977; 83036; 83540; 83550; 83605; 83735; 83880; 84100; 84300; 84443; 84484; 84550; 85007; 85025; 85610; 85730; 86140; 86705; 86706; 86709; 86803; 86850; 86900; 86901; 86920; 87040; 87070; 87081; 87086; 87205; 87324; 87340; 89050; 93005; 93306; 93931; 93970; 94002; 94003; 94150; 94640; 94664; 96361; 96365; 96368; 99285; A9503; J2310; J7030; J7620; J8499